=== PATIENT | female | born 1965 | race Caucasian/White ===

== ENCOUNTER → 2016-09-28 | Outpatient (CLI) | payer OTHER ==
[~2016-09-28] MED LIST: CGN1 PO; LPRUNK; QUET1TAB34 PO; RISP4TAB7 PO
[2016-09-28 11:21] LABS: BASO % 0.5 %; BASO ABS # 0.06 K/uL (0-0.2); COMPLETE YES; EOS % 2.3 %; HEMATOCRIT 37.7 % (37-47); IG% 0.5 %; LYMPH % 28.3 %; LYMPH ABS # 3.21 K/uL (1.2-3.4); MEAN CELL VOLUME 77.7 fL (80-100); MEAN CORPUSCULAR HEMOGLOBIN 26.8 pg (25-34); MEAN CORPUSCULAR HGB CONC 34.5 g/dl (32-36); MEAN PLATELET VOLUME 9.4 fL (7.4-10.4); MONO % 5.9 %; NEUT % 62.5 %; PLATELET COUNT 339 K/uL (130-400); RED BLOOD COUNT 4.85 M/uL (4.2-5.4); WHITE BLOOD COUNT 11.35 K/uL (4.8-10.8)
[2016-09-28 11:31] LABS: ALT/SGPT 58 U/L (12-78); AST/SGOT 36 U/L (15-37); BLOOD UREA NITROGEN 9 mg/dl (7-18); BUN/CREATININE RATIO 9.5 (10-20); CALCIUM 9.2 mg/dl (8.5-10.1); CARBON DIOXIDE 24 mmol/L (21-32); CHLORIDE 105 mmol/L (98-107); CHOLESTEROL 237 mg/dl (0-200); CREATININE 0.91 mg/dl (0.60-1.20); GLUCOSE 185 mg/dl (70-99); POTASSIUM 3.6 mmol/L (3.5-5.1); SODIUM 140 mmol/L (136-145)
[2016-09-28 11:33] LABS: MANUAL MICROSCOPIC REQUIRED? NO; REVIEW REQ? NO; URINE APPEARANCE CLEAR (CLEAR); URINE BILIRUBIN NEG (NEG); URINE COLOR YELLOW; URINE EPITHELIAL CELL AUTO >30 /lpf (0-5); URINE NITRITE NEG (NEG); URINE SPECIFIC GRAVITY 1.015 (1.000-1.030); UROBILINOGEN NEG (NEG); ZZUR CULT IF INDIC CLEAN CATCH YES
[2016-09-28 11:34] LABS: ALB/GLOB RATIO 1.1 (0.9-2); ALKALINE PHOSPHATASE 87 U/L (45-117); CHOLESTEROL/HDL RATIO 6.1; HDL CHOLESTEROL 39 mg/dl; TRIGLYCERIDES 560 mg/dl (0-150)
[2016-09-28 11:36] LABS: ESTIMATED AVERAGE GLUCOSE 217 mg/dl; HA1C FLAG Normal (Normal)
[2016-09-28 12:01] LABS: RATIO 9.6 mcg/mg (0-30.0)
== END | disposition home or self-care (01) ==
LOC: C.LAB1850 09:44
PROVIDERS: ATTEND Internal Medicine
DX: Z11.59 Encounter for screening for other viral diseases (principal); E11.9 Type 2 diabetes mellitus without complications; E55.9 Vitamin D deficiency, unspecified; D72.829 Elevated white blood cell count, unspecified; E78.5 Hyperlipidemia, unspecified

== ENCOUNTER → 2017-08-01 | Outpatient (CLI) | payer OTHER ==
--- NOTE | 2017-08-02 07:35 | MAMMOGRAPHY REPORT ---
BILATERAL DIGITAL SCREENING MAMMOGRAM TOMOSYNTHESIS WITH CAD: 08/01/2017 CLINICAL HISTORY: Routine screening. Patient has no complaints. TECHNIQUE: Breast tomosynthesis in addition to standard 2D mammography was performed. Current study was also evaluated with a Computer Aided Detection (CAD) system. COMPARISON: Comparison is made to exams dated: 06/08/2016 mammogram, 04/21/2015 mammogram, 01/10/2014 mammogram, 01/04/2013 mammogram, 09/01/2011 mammogram, and 07/29/2010 mammogram - [facility] enter. BREAST COMPOSITION: There are scattered areas of fibroglandular density in both breasts. FINDINGS: Postsurgical changes from prior reduction mammoplasty. A few benign-appearing calcificatio ns in the breasts. No suspicious mass, architectural distortion or cluster of suspicious microcalcif ications is seen. IMPRESSION: ACR BI-RADS CATEGORY 1: NEGATIVE There is no mammographic evidence of malignancy. A 1 year screening mammogram is recommended. The pa tient will receive written notification of the results. Approximately 10% of breast cancers are not detected with mammography. A negative mammographic report should not delay biopsy if a clinically suggestive mass is present. Ronda Crowder M.D. ay/:08/01/2017 16:41:47 [employer]: Ofe WOLF)([place]), [facility] letter sent: Normal 1/2 BI-RADS Code: ACR BI-RADS Category 1: Negative
== END | disposition home or self-care (01) ==
LOC: C.MAMM 13:32
PROVIDERS: ATTEND Internal Medicine
DX: Z12.31 Encounter for screening mammogram for malignant neoplasm of breast (principal)

== ENCOUNTER → 2017-10-31 | Outpatient (CLI) | payer OTHER ==
[2017-10-31 12:27] LABS: BASO % 0.8 %; BASO ABS # 0.08 K/uL (0-0.2); EOS % 2.3 %; EOS ABS # 0.24 K/uL (0-0.5); HEMOGLOBIN 14.4 g/dL (12.0-16.0); IG# 0.05 K/uL (0.00-0.02); LYMPH % 32.4 %; LYMPH ABS # 3.41 K/uL (1.2-3.4); MEAN CELL VOLUME 79.2 fL (80-100); MEAN CORPUSCULAR HEMOGLOBIN 27.8 pg (25-34); MEAN CORPUSCULAR HGB CONC 35.1 g/dl (32-36); MEAN PLATELET VOLUME 8.8 fL (7.4-10.4); MONO % 6.5 %; MONO ABS # 0.68 K/uL (0.11-0.59); NEUT % 57.5 %; NEUT ABS # 6.06 K/uL (1.4-6.5); PLATELET COUNT 393 K/uL (130-400); RED CELL DISTRIBUTION WIDTH CV 13.1 % (11.5-14.5); RED CELL DISTRIBUTION WIDTH SD 37.4 fL (36.4-46.3); WHITE BLOOD COUNT 10.52 K/uL (4.8-10.8)
[2017-10-31 13:00] LABS: HEMOGLOBIN A1C 11.1 % (4.5-5.6)
[2017-10-31 13:03] LABS: ALT/SGPT 62 U/L (12-78); AST/SGOT 43 U/L (15-37); BLOOD UREA NITROGEN 12 mg/dl (7-18); CALCIUM 9.3 mg/dl (8.5-10.1); CARBON DIOXIDE 25 mmol/L (21-32); CHOLESTEROL 238 mg/dl (0-200); CREATININE 0.83 mg/dl (0.60-1.20); GLUCOSE 217 mg/dl (70-99); POTASSIUM 3.4 mmol/L (3.5-5.1); SODIUM 134 mmol/L (136-145)
[2017-10-31 13:14] LABS: ALKALINE PHOSPHATASE 118 U/L (45-117); TOTAL PROTEIN 7.7 gm/dl (6.4-8.2)
== END | disposition home or self-care (01) ==
LOC: C.LAB1850 11:19
PROVIDERS: ATTEND Internal Medicine
DX: E11.9 Type 2 diabetes mellitus without complications (principal); D72.829 Elevated white blood cell count, unspecified; E55.9 Vitamin D deficiency, unspecified

== ENCOUNTER 2019-10-16 15:14 | Inpatient (IN) ==
[2019-10-16 16:02] LABS: Appearance Urine Cloudy (Clear); Bacteria Urine Automated 1+ (Negative); Bilirubin Urine Negative (Negative); Blood Urine Negative (Negative); Color Urine Dark Yellow; Epithelial Cell Urine Auto >30 /lpf (0-5); Glucose Urine UA 1+ (Negative); Ketones Urine Trace (Negative); Leukocyte Esterase Urine Negative (Negative); Nitrite Urine Negative (Negative); Protein Urine 1+ (Negative); Specific Gravity Urine 1.042 (1.000-1.030); Urobilinogen Urine Negative (Negative); WBC Urine Automated >30 /hpf (0-5)
[2019-10-16 16:06] LABS: Hematocrit (blood only) 37.6 % (37-47); Mean Corpuscular Hemoglobin 23.6 pg (25-34); Mean Corpuscular Hgb Conc 31.9 g/dL (32-36); Mean Corpuscular Volume 73.9 fL (80-100); Mean Platelet Volume 8.3 fL (7.4-10.4); Platelet Count 382 K/uL (130-400); RDW Coefficient of Variation 15.8 % (11.5-14.5); RDW Standard Deviation 42.9 fL (36.4-46.3); Red Blood Count 5.09 M/uL (4.2-5.4); White Blood Count 13.09 K/uL (4.8-10.8)
[2019-10-16 16:22] LABS: Calcium Oxalate Crystals Urine Present (None Prsent)
[2019-10-16 16:24] LABS: RBC Urine Automated 0-4 /hpf (0-4)
[2019-10-16 16:29] LABS: Amphetamines+Metham, Urine Neg (Neg); Barbiturates, Urine Neg (Neg); Benzodiazepine, Urine Neg (Neg); Cocaine, Urine Neg (Neg); MDMA (Ecstacy), Urine Neg (Neg); Methadone, Urine Neg (Neg); Opiate, Urine Neg (Neg); Phencyclidine, Urine Neg (Neg)
[2019-10-16 16:35] LABS: Albumin Level 3.2 gm/dl (3.4-5.0); BUN Creatinine Ratio 17.4 (10-20); Creatinine Clr Calc Pharmacy 82.2 ml/min; Est GFR (African American) 91.3; Est GFR (Non-African American) 78.8; Potassium 3.8 mmol/L (3.5-5.1)
[2019-10-16 16:37] LABS: Basophils # (auto) 0.05 K/uL (0-0.2); Basophils % (auto) 0.4 %; Eosinophils # (auto) 0.18 K/uL (0-0.5); Eosinophils % (auto) 1.4 %; Immature Granulocytes # (auto) 0.04 K/uL (0.00-0.02); Immature Granulocytes % (auto) 0.3 %; Lymphocytes # (auto) 4.07 K/uL (1.2-3.4); Lymphocytes % (auto) 31.1 %; Monocytes # (auto) 0.87 K/uL (0.11-0.59); Monocytes % (auto) 6.6 %; Neutrophils # (auto) 7.88 K/uL (1.4-6.5); Neutrophils % (auto) 60.2 %
[2019-10-16 16:38] LABS: Acetaminophen < 2 ug/ml (10-30); Salicylate < 1.7 mg/dl (2.8-20)
[2019-10-16 16:45] LABS: Albumin Globulin Ratio 0.8 (0.9-2); Bilirubin,Total 0.3 mg/dl (0.2-1); Thyroid Stimulating Hormone 0.793 uIu/ml (0.300-4.500); Total Protein 7.2 gm/dl (6.4-8.2)
[2019-10-16] MEDS ORDERED: cephALEXin 250 MG CAP PO ONE (16:57)
--- NOTE | 2019-10-16 17:16 | Emergency Department Note ---
Entered by Maycol Granda acting as a scribe for History of Present Illness General Chief complaint: Mental Health Evaluation Stated complaint: DEPRESSED, SUICIDAL Time Seen by Provider: 10/16/19 15:20 Source: patient History of Present Illness Onset (ago): week(s) (a few weeks ago) Location: head Pain Consistency: + other (worsening) Maximum Pain Intensity: 0 Quality: + other (suicidal ideations) Associated symptoms: + other (Positive for hearing voices. Negative for abdominal pain and leg swelling.) The patient is a 54 year old female w/ PMHx of DM, hypertension, schizoaffective disorder, depression, and 3 previous suicide attempts who p resents to the ED w/ CC of worsening suicidal ideations beginning a few weeks ago. The patient states that she has had worsening suicidal ideations for the last few weeks. She notes that she has been having difficulty sleeping and has also been eating sporadically. She reports that she is more depressed, and she states that is depressed about world issues and the baby she miscarried five years ago. The patient states that she hears voices that are not her own, and she notes that the voices tell her to commit suicide by taking pills. She notes that she has 3 previous suicide attempts by overdosing on pills. She reports that her last attempt was a year ago. She denies any abdominal pain and leg swelling. She reports that she has been taking her medication as usual, and she states that she does not use alcohol, drugs, or tobacco. Home Medications Home Medications Medication Instructions Recorded Confirmed Type hydroxyzine HCl 25 mg tablet 25 mg PO TID tab 03/15/19 10/16/19 History glipizide 10 mg tablet 10 mg PO BID #180 tab 04/16/19 10/16/19 Rx icosapent ethyl 1 gram capsule 1 gm PO BID #180 cap 04/16/19 10/16/19 Rx aspirin 81 mg tablet,delayed 81 mg PO DAILY #1 tab 04/21/19 10/16/19 History release atorvastatin 80 mg tablet 80 mg PO QPM #90 tab 04/21/19 10/16/19 History benztropine 1 mg tablet 1 mg PO HS tab 04/21/19 10/16/19 History olanzapine 20 mg tablet 25 mg PO HS tab 06/26/19 10/16/19 History venlafaxine 75 mg tablet,extended 75 mg PO DAILY 06/26/19 10/16/19 History release 24 hr metformin 500 mg tablet,extended 500 mg PO BID #60 tab 07/05/19 10/16/19 Rx release 24 hr hydrochlorothiazide 25 mg tablet 25 mg PO DAILY #30 tab 07/16/19 10/16/19 Rx cyanocobalamin (vitamin B-12) 1,000 mcg PO DAILY #30 tab 07/17/19 10/16/19 Rx 1,000 mcg tablet lisinopril 40 mg tablet 40 mg PO DAILY #30 tab 07/18/19 10/16/19 Rx Victoza 3-Antione 0.6 mg/0.1 mL (18 1.8 mg SQ DAILY #9 ml NS 07/31/19 10/16/19 Rx mg/3 mL) subcutaneous pen injector Lantus Solostar U-100 Insulin 100 100 units SQ BID #60 ml NS 09/06/19 10/16/19 Rx unit/mL (3 mL) subcutaneous pen methimazole 10 mg tablet 10 mg PO DAILY #30 tab 09/19/19 10/16/19 Rx acetaminophen 500 mg tablet 500 mg PO Q6H PRN #20 tab 10/15/19 10/16/19 Rx blood sugar diagnostic [OneTouch 10/16/19 10/16/19 History Ultra Blue Test Strip] pen needle,diabetic dual safty [BD 10/16/19 10/16/19 History AutoShield Duo Pen Needle] Allergies Allergy/AdvReac Type Severity Reaction Status Date / Time Cplaivf-Yob-Uda Reductase Allergy Mild Unknown Verified 10/16/19 19:13 Inhibitor sulfamethoxazole Allergy Mild Difficulty Verified 10/16/19 19:13 [From Bactrim] Breathing trimethoprim [From Bactrim] Allergy Mild Difficulty Verified 10/16/19 19:13 Breathing Past Med/Surg History Medical History (Updated 10/16/19 @ 19:02 by Maycol Granda) Albuminuria (Chronic) Depression (Chronic) Diabetes mellitus type 2, uncontrolled (Chronic) Eczema (Acute) Graves disease (Chronic) Hypertension (Chronic) Hyperthyroidism (Chronic) PPD positive (Chronic) Schizoaffective disorder, bipolar type (Chronic) Surgical History Hx of bilateral breast reduction surgery Hx of tonsillectomy Social History Preferred Language: [place] Communication Ability: Effective Visual Impairment: No Limitations 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: Normal Floorleader Required: No Beliefs That Will Affect Care: None marital status: Single Current Living Situation: Personal Care Facility Current Living Situation Comment: [facility] current occupational status: unemployed Feels Safe at Home: Yes Smoking Status: Former smoker Hx Alcohol Use: No Hx Substance Use: No Dental Care, Regularly: Yes Physical Activity Frequency: 1-2 Times per Week Seatbelt Use: always Review of Systems See HPI for pertinent positives & negatives. and A total of 10 systems reviewed and were otherwise negative Physical Exam Vital Signs Vital Signs - 24 hr 10/16/19 15:18 10/16/19 16:39 10/16/19 18:29 Temperature 36.9 C Temperature Source Oral Pulse Rate 93 H Pulse Rate [Finger] 82 76 Pulse Rhythm [Finger] Regular Pulse Strength [Finger] Normal Respiratory Rate 20 20 20 Respiratory Effort / Characteristics Non-Labored Non-Labored Spontaneous Non-Labored Spontaneous Respiratory Depth Normal Normal Normal Respiratory Pattern Regular Regular Blood Pressure 168/102 H Blood Pressure [Left Arm] 148/103 H 140/76 Blood Pressure Mean 124 Blood Pressure Mean [Left Arm] 118 97 Pulse Oximetry 96 96 97 Oxygen Delivery Method Room Air Room Air Room Air Sepsis Recent Fever Within 48 Hours No Sepsis New/Unexplained Change in Mental Status No Sepsis Action Taken by Nursing No Action Required 10/16/19 19:50 Temperature Temperature Source Pulse Rate 84 Pulse Rate [Finger] Pulse Rhythm [Finger] Pulse Strength [Finger] Respiratory Rate 16 Respiratory Effort / Characteristics Respiratory Depth Respiratory Pattern Blood Pressure 155/94 H Blood Pressure [Left Arm] Blood Pressure Mean Blood Pressure Mean [Left Arm] Pulse Oximetry 98 Oxygen Delivery Method Room Air Sepsis Recent Fever Within 48 Hours Sepsis New/Unexplained Change in Mental Status Sepsis Action Taken by Nursing GENERAL: Well nourished, NAD, non-toxic. EYE EXAM: Normal conjunctiva. PERRL, no anisocoria and EOM's grossly intact w/o pain. OROPHARYNX: Moist mucous membranes. Grossly normal dentition. NECK: Supple, no nuchal rigidity, no adenopathy, non-tender. No signs of meningismus. LUNGS: Clear to auscultation. Normal chest wall mechanics. HEART: NSR, no MRG. ABDOMEN: Abdomen soft, non-tender, normo-active bowel sounds, no masses, no rebound or guarding. BACK: No CVA TTP. SKIN: No rashes and no bruising. UPPER EXTREMITIES: Upper extremities are grossly normal. LOWER EXTREMITIES: No pitting edema. No calf pain. NEURO EXAM: A&O x3, cranial nerves II-XII grossly intact, normal speech, moves all 4 extremities on command w/o issue. PSYCH: Positive SI with plan, no HI, positive auditory hallucinations, no visual hallucinations. Course Course 1532: The patient was evaluated in room A6. A complete history and physical exam was performed. 1803: The patient was accepted to [address] [place] [address] and will be evaluated for further management. Administered Medications Discontinued Medications Cephalexin HCl (Keflex) 500 mg PO NOW ONE Stop: 10/16/19 16:58 Last Admin: 10/16/19 17:06 Dose: 500 mg Documented by: [id number] Medical Decision Making Differential Diagnosis Differential diagnoses considered include mood disorder, infection, hypoglycemia, electrolyte abnormalities, cardiac sources, intracerebral event, toxicologic, neurologic, as well as others. Medical Records Attestation: I reviewed the patient's medical records. Home Medications Current Medication List: was personally reviewed by me Laboratory Data Attestation: I reviewed the patient's lab results. Result diagrams: 10/16/19 15:56 10/16/19 15:56 Lab Results 10/16/19 10/16/19 10/16/19 Range/Units 15:32 15:32 15:56 WBC 13.09 H (4.8-10.8) K/uL RBC 5.09 (4.2-5.4) M/uL Hgb 12.0 (12.0-16.0) g/dL Hct 37.6 (37-47) % MCV 73.9 L (80-100) fL MCH 23.6 L (25-34) pg MCHC 31.9 L (32-36) g/dL RDW Std Deviation 42.9 (36.4-46.3) fL RDW Coeff of Abel 15.8 H (11.5-14.5) % Plt Count 382 (130-400) K/uL MPV 8.3 (7.4-10.4) fL Immature Gran % (Auto) 0.3 % Neut % (Auto) 60.2 % Lymph % (Auto) 31.1 % [place] % (Auto) 6.6 % Eos % (Auto) 1.4 % Baso % (Auto) 0.4 % Immature Gran # (Auto) 0.04 H (0.00-0.02) K/uL Neut # (Auto) 7.88 H (1.4-6.5) K/uL Lymph # (Auto) 4.07 H (1.2-3.4) K/uL [place] # (Auto) 0.87 H (0.11-0.59) K/uL Eos # (Auto) 0.18 (0-0.5) K/uL Baso # (Auto) 0.05 (0-0.2) K/uL Sodium (136-145) mmol/L Potassium (3.5-5.1) mmol/L Chloride (98-107) mmol/L Carbon Dioxide (21-32) mmol/L Anion Gap (3-11) BUN (7-18) mg/dl Creatinine (0.6-1.2) mg/dl Est Cr Clr Drug Dosing ml/min Est GFR ( Amer) Est GFR (Non-Af Amer) BUN/Creatinine Ratio (10-20) Glucose (70-99) mg/dl Calcium (8.5-10.1) mg/dl Total Bilirubin (0.2-1) mg/dl AST (15-37) U/L ALT (12-78) U/L Alkaline Phosphatase (45-117) U/L Total Protein (6.4-8.2) gm/dl Albumin (3.4-5.0) gm/dl Globulin (2.5-4.0) gm/dl Albumin/Globulin Ratio (0.9-2) TSH (0.300-4.500) uIu/ml Urine Color Dark Yellow Urine Appearance Cloudy A (Clear) Urine pH 5.0 (4.5-7.5) Ur Specific [place] 1.042 H (1.000-1.030) Urine Protein 1+ H (Negative) Urine Glucose (UA) 1+ H (Negative) Urine Ketones Trace H (Negative) Urine Blood Negative (Negative) Urine Nitrite Negative (Negative) Urine Bilirubin Negative (Negative) Urine Urobilinogen Negative (Negative) Ur Leukocyte Esterase Negative (Negative) Urine WBC (Auto) >30 H (0-5) /hpf Urine RBC (Auto) 0-4 (0-4) /hpf U Hyaline Cast (Auto) 5-10 H (0-5) /lpf U Epithel Cells (Auto) >30 H (0-5) /lpf Urine Bacteria (Auto) 1+ H (Negative) Urine Crystals Not Reportable Calcium Oxalate Crystal Present A (None Prsent) Salicylates (2.8-20) mg/dl Urine Opiates Screen Neg (Neg) Ur Methadone, Qual Neg (Neg) Acetaminophen (10-30) ug/ml Urine Barbiturates Neg (Neg) Ur Phencyclidine (PCP) Neg (Neg) U Amphetamin/Meth Scrn Neg (Neg) MDMA (Ecstasy) Screen Neg (Neg) U Benzodiazepines Scrn Neg (Neg) Ur Cocaine Metabolite Neg (Neg) U Marijuana (THC) Screen Neg (Neg) Ethyl Alcohol mg/dL (0-3) mg/dl 10/16/19 10/16/19 10/16/19 Range/Units 15:56 15:56 15:56 WBC (4.8-10.8) K/uL RBC (4.2-5.4) M/uL Hgb (12.0-16.0) g/dL Hct (37-47) % MCV (80-100) fL MCH (25-34) pg MCHC (32-36) g/dL RDW Std Deviation (36.4-46.3) fL RDW Coeff of Abel (11.5-14.5) % Plt Count (130-400) K/uL MPV (7.4-10.4) fL Immature Gran % (Auto) % Neut % (Auto) % Lymph % (Auto) % [place] % (Auto) % Eos % (Auto) % Baso % (Auto) % Immature Gran # (Auto) (0.00-0.02) K/uL Neut # (Auto) (1.4-6.5) K/uL Lymph # (Auto) (1.2-3.4) K/uL [place] # (Auto) (0.11-0.59) K/uL Eos # (Auto) (0-0.5) K/uL Baso # (Auto) (0-0.2) K/uL Sodium 136 (136-145) mmol/L Potassium 3.8 (3.5-5.1) mmol/L Chloride 104 (98-107) mmol/L Carbon Dioxide 25 (21-32) mmol/L Anion Gap 7.0 (3-11) BUN 15 (7-18) mg/dl Creatinine 0.84 (0.6-1.2) mg/dl Est Cr Clr Drug Dosing 82.2 ml/min Est GFR ( Amer) 91.3 Est GFR (Non-Af Amer) 78.8 BUN/Creatinine Ratio 17.4 (10-20) Glucose 264 H (70-99) mg/dl Calcium 9.0 (8.5-10.1) mg/dl Total Bilirubin 0.3 (0.2-1) mg/dl AST 11 L (15-37) U/L ALT 29 (12-78) U/L Alkaline Phosphatase 179 H (45-117) U/L Total Protein 7.2 (6.4-8.2) gm/dl Albumin 3.2 L (3.4-5.0) gm/dl Globulin 4.0 (2.5-4.0) gm/dl Albumin/Globulin Ratio 0.8 L (0.9-2) TSH 0.793 (0.300-4.500) uIu/ml Urine Color Urine Appearance (Clear) Urine pH (4.5-7.5) Ur Specific [place] (1.000-1.030) Urine Protein (Negative) Urine Glucose (UA) (Negative) Urine Ketones (Negative) Urine Blood (Negative) Urine Nitrite (Negative) Urine Bilirubin (Negative) Urine Urobilinogen (Negative) Ur Leukocyte Esterase (Negative) Urine WBC (Auto) (0-5) /hpf Urine RBC (Auto) (0-4) /hpf U Hyaline Cast (Auto) (0-5) /lpf U Epithel Cells (Auto) (0-5) /lpf Urine Bacteria (Auto) (Negative) Urine Crystals Calcium Oxalate Crystal (None Prsent) Salicylates < 1.7 L (2.8-20) mg/dl Urine Opiates Screen (Neg) Ur Methadone, Qual (Neg) Acetaminophen < 2 L (10-30) ug/ml Urine Barbiturates (Neg) Ur Phencyclidine (PCP) (Neg) U Amphetamin/Meth Scrn (Neg) MDMA (Ecstasy) Screen (Neg) U Benzodiazepines Scrn (Neg) Ur Cocaine Metabolite (Neg) U Marijuana (THC) Screen (Neg) Ethyl Alcohol mg/dL < 3.0 (0-3) mg/dl Blood Pressure Blood Pressure Findings: Elevated blood pressure Blood Pressure Disposition: elevated BP felt to be situational MDM Narrative The patient is a 54 year old female w/ PMHx DM, hypertension, schizoaffective disorder, depression, and 3 previous suicide attempts who presents to the ED w/ CC of worsening suicidal ideations beginning a few weeks ago. Patient was seen and evaluated the bedside. The patient did present with concern for suicide alleviation and plan. The patient does have a history of prior attempts. The patient has been increasingly depressed. Patient states that she has had erratic sleep and poor nutrition. Patient did a bladder completed. Patient was the medically cleared. Patient was seen and evaluated by psych behavioral health case manager patient was subsequently made to S for further [facility] inpatient psychiatric treatment. Impression & Plan Depression, Suicidal ideations, UTI (urinary tract infection) Discharge Plan Visit Data *Final* Discharge Date/Time: 10/16/19 19:50 Chief Complaint: Mental Health Evaluation Stated Complaint: DEPRESSED, SUICIDAL ED Provider: James Blanc Discharge Problem: Depression, Suicidal ideations, UTI (urinary tract infection) Patient Disposition: Admitted As Inpatient Discharge Instructions Interventions: ED Discharge Assessment Last Done: 10/16/19 19:50 Discharge Problem: Depression Qualifiers: Depression Type: unspecified Qualified Code(s): F32.9 - Major depressive disorder, single episode, unspecified UTI (urinary tract infection) Qualifiers: Urinary tract infection type: site unspecified Hematuria presence: without hematuria Qualified Code(s): N39.0 - Urinary tract infection, site not specified The scribe's documentation has been prepared under my direction and personally reviewed by me in its entirety. I confirm that the note above accurately reflects all work, treatment, procedures, and medical decision making performed by me.
[2019-10-16] MEDS ORDERED: SODIUM CHLORIDE 0.65% NA SOLN 45 ML (OCEAN) PRN (20:02)
[2019-10-16] MEDS ORDERED: MAGNESIUM HYDROXIDE SUSP 30 ML UDC PO PRN (20:02)
[2019-10-16] MEDS ORDERED: BISMUTH SUBSALICYLATE PER ML OMNICELL CHARGE PO PRN (20:02)
[2019-10-16] MEDS ORDERED: ACETAMINOPHEN 325 MG TAB PO PRN (20:02)
[2019-10-16] MEDS ORDERED: ALUMINUM/MAGNESIUM SUSP 30 ML UDC PO PRN (20:02)
[2019-10-16] MEDS ORDERED: hydroCHLOROthiazide 25 MG TAB PO STA (20:19)
[2019-10-16] MEDS ORDERED: BENZTROPINE MESYLATE 1 MG TAB PO ONE (20:30)
[2019-10-16] MEDS ORDERED: METFORMIN HCL ER 500 MG TABCR PO SCH (21:00)
[2019-10-16] MEDS ORDERED: PHARMACY GLYCEMIC MGMT CONSULT PRN (21:34)
[2019-10-16] MEDS ORDERED: GLUCOSE 10 TABS/TUBE PO PRN (21:45)
[2019-10-16] MEDS ORDERED: GLUCAGON FOR INJ 1 MG VIAL SQ PRN (21:45)
[2019-10-16] MEDS ORDERED: CARBOHYDRATES FOR HYPOGLYCEMIA PO PRN (21:45)
[2019-10-16] MEDS ORDERED: GLUCOSE 40% GEL 15 GM TUBE PO PRN (21:45)
[2019-10-16] MEDS ORDERED: DEXTROSE 50% 50 ML SYRINGE IV PRN (21:45)
[2019-10-16] MEDS: INSULIN ASPART 100 UNITS/ML 3 ML PEN SC SCH (21:59)
[2019-10-16] MEDS: INSULIN GLARGINE SOLOSTAR 100 UNITS/ML 3 ML PEN SC SCH (22:01)
[2019-10-16] MEDS: BENZTROPINE MESYLATE 1 MG TAB PO SCH (22:12)
[2019-10-16] MEDS: AMOXICILLIN 500 MG CAP PO SCH (22:12)
[2019-10-16] MEDS: OLANZapine 5 MG TABLET PO SCH (22:18)
[2019-10-17] MEDS: INSULIN ASPART 100 UNITS/ML 3 ML PEN SC SCH ×7 (00:10→20:30)
[2019-10-17 08:40] LABS: Estimated Average Glucose 240 mg/dl
[2019-10-17] MEDS ORDERED: glipiZIDE 5 MG TAB PO SCH (09:00)
--- NOTE | 2019-10-17 09:14 | Pharmacy Report ---
Glycemic Control Consultation - Date of Service October 17, 2019 - Scope Scope: Glycemic Pharmacist consulted for glycemic control and to write orders per [facility] inpatient glycemic control protocol - Objective Weight: 83.7 kg [place] BSG (last 24hrs): 10/16/19 10/16/19 10/16/19 15:56 20:57 20:59 Glucose 264 H POC Glucose 323 H* 321 H* 10/16/19 10/17/19 10/17/19 23:57 03:59 07:48 Glucose POC Glucose 266 H 264 H 239 H Laboratory Data (last 24hrs): 10/16/19 15:56 Potassium 3.8 Carbon Dioxide 25 Anion Gap 7.0 Creatinine 0.84 Est Cr Clr Drug Dosing 82.2 HbA1c: Hemoglobin A1c 10.0 % (4.5-5.6) H 10/16/19 15:56 - Recent Pertinent Medications Outpatient Anti-diabetic Regimen: * Glargine 100 units SQ BID * Victoza * Metformin * Glipizide - Assessment & Plan Assessment & Plan: ASSESSMENT: * 54yo T2DM female with A1c above goal. Pt follows with [facility] Endocrinology. Outpatient control is limited by co-morbid conditions (hyperthyroidism and psychiatric issues). Pt recently re-started metformin but unable to titrate to max dosing d/t GI side effects. Unsure if patient is taking Lantus vs Toujeo. Had Rx for Toujeo for the past year (09/2018 - 09/2019) but then new Rx for Lantus in 09/2019. * Pt is maintained on multiple oral agents, basal insulin, + GLP-1. Unsure of compliance with regimen. Will hold non-insulin agents for admission and add Novolog bolus insulin per CF/CR in it's place. * Outpatient dosing of insulin is 200 units/day --> will convert this to 50%:50% distribution of basal:prandial and titrate based on BSG trends. * Goal is to maintain BSGs in 120-160 mg/dl range ; patient prefers BSGs a little higher and pt may feel hypo at otherwise normal BSGs based on elevated A1c PLAN FOR INPATIENT GLYCEMIC CONTROL: * Holding outpatient oral diabetes medications & GLP-1 * Basal insulin * Lantus 100 units SQ BID {outpatient dosing} --> change to 50%:50% dosing and use dosing scale until true basal dose determined * Lantus SQ BID based on BSG * BSG below 140mg/dl --> 65 units * BSG 140-180mg/dl --> 75 units * BSG above 180 mg/dl --> 85 units * Bolus insulin * NovoLog per scale ACHS or Q6hrs while NPO * Goal Range: Low 120 mg/dL - High 160 mg/dL * Correction Factor: 10 mg/dL/unit * Nutritional / Prandial insulin per carb ratio of 1 unit per 4 grams CHO consumed * Patient did receive her outpatient dosing of Lantus 100 units last evening and this morning. Will tighten these parameters further once new/reduced Lantus doses given. * Please note that the plan above was derived based on current level of insulin resistance and hospital stress. These recommendations are appropriate for inpatient admission only. Plan of care upon discharge will need to be reassessed to avoid potential outpatient hypo/hyperglycemia. Thank you.
[2019-10-17] MEDS: methIMAzole 5 MG TABLET PO SCH ×2 (09:56→11:38)
[2019-10-17] MEDS: VENLAFAXINE HCL XR 75 MG CAPXR PO SCH (09:57)
[2019-10-17] MEDS: ATORVASTATIN 40 MG TAB PO SCH ×2 (09:58→11:38)
[2019-10-17] MEDS: CYANOCOBALAMIN 500 MCG TABLET (VITAMIN B-12) PO SCH (09:59)
[2019-10-17] MEDS: AMOXICILLIN 500 MG CAP PO SCH ×3 (10:25→20:42)
[2019-10-17] MEDS: INSULIN GLARGINE SOLOSTAR 100 UNITS/ML 3 ML PEN SC SCH (10:26)
--- NOTE | 2019-10-17 10:40 | History & Physical ---
Date of Service October 17, 2019 Impression / Recommendations (1) Schizoaffective disorder, depressive type: 10/17 - Continue voluntary inpatient treatment. Continue olanzapine, benztropine, and venlafaxine XR at home doses, as patient has been nonadherent and skipping dose, so has not likely been receiving full effect of her medications. She reports good tolerance of these medications, and this regimen has worked for her in the past. -Fasting labs for monitoring on an atypical antipsychotic: Hemoglobin A1c on admission was 10.0, with an estimated average glucose of 240. FLP results reviewed from 07/09/2019; triglycerides elevated at 319, remainder of values within normal limits. -Coordinate care with the patient's BCM, Mercedes Bullock, and contact [facility] to coordinate with Dr. Guillen and ensure she is assigned to a new therapist. -Encourage group attendance and participation. -Suicide checks for safety. Work on healthy coping skills and discharge safety plan. Reality testing as tolerated. -Support options for limiting her access to large amounts of pills, especially when more depressed and having suicidal thoughts, given her history of multiple suicide attempts by overdose. (2) Diabetes mellitus type 2, uncontrolled: Continue home dose of metformin, insulin, diabetic diet, and consult glycemic control pharmacist. (3) Dyslipidemia: Continue home dose of Lipitor (4) Hypertension: Continue home dose of lisinopril Risk Factors Assessment Male: No : Yes Do You Have Access To A Gun?: No Health Problems: Yes Mental Health Diagnoses: Yes Substance Use Disorders: No Previous Attempt: Yes Previous Attempt; Highly Lethal: Yes Family History of Suicide: No Previous Psychiatric Hospitalization: Yes Hopelessness: Yes Smoker: No Protective Factors Assessment : No Responsible for Young Children: No Employed: No Supportive Family: Yes Good Rapport with Provider: Yes Psychiatric History Identifying Data AMADO OLSON is a 54-year-old F who currently lives in [place] at the [facility] personal fdc, has a history of schizoaffective disorder, and was admitted on 10/16/19 19:59 on a 201 voluntary commitment for depression, psychosis, and suicidal ideation with plan to overdose on pills. Chief Complaint "Oh you know I was feeling so depressed, was having suicidal thoughts..." History of Present Illness Patient presented to the ER yesterday, 10/16/2019, with her the health information administrator of the [facility], a personal fdc where she resides, reporting worsening mood, command auditory hallucinations to kill herself, and thoughts to overdose on medication. She reported chronic paranoia and thoughts that somebody is out to kill her and her daughter, auditory hallucination of voices that make vulgar comments and were telling her to commit suicide by overdose. She reported history of multiple suicide attempts by overdose, and had previously received treatment at [facility], but since they are closing had not been transferred to a new clinician. She endorsed worthlessness, hopelessness, increased isolation, paranoia, decreased appetite, poor sleep, and difficulty getting out of bed and doing her ADLs. Admission labs were notable for WBC 13.09, glucose 264, hemoglobin A1c of 10, alkaline phosphatase of 179, albumin of 3.2, normal TSH, UA was cloudy with elevated specific gravity, 1+ protein and glucose, trace ketones, > 30 epithelial cells, and 1+ bacteria; drug screen was negative. She agreed to voluntary inpatient treatment, and on admission was continued on her home psychotropics including olanzapine 25 mg at bedtime, venlafaxine XR 75 mg daily, and benztropine 1 mg at bedtime. On my assessment, she reports she had been living in [place] for years, but moved to [place] and was living there for about 9 years at [facility], before returning to [place] in 12/2018. Mood worsened in the fall, and she was hospitalized at [facility] in 05/2019. She denies triggers, but states mood and paranoia worsened, she thought people hated her, wanted to harm her, "were going to burn my guts, burn my body," and AH of voices have been worsening, telling her to hurt herself. She reports trigger was a 5 or 10 years ago, "I can't remember," when she lived in [place]. She thinks she was 2 months along when she had the miscarriage, and says she "gets very depressed about it, and I worry about her, I feel like in these places, she's being exposed to inappropriate conditions, being burnt with propane, being burnt with fire." She says her daughter is ", she's gone, but her spirit is with me, I hear her praying a lot." She thinks her miscarried baby is also "exposed to medication" and that it is bad for her, so skips her medications at times, "I worry about my baby, worry that it will affect it." Estimates she's misses "a couple of doses" of olanzapine and venlafaxine, but can't be more specific, stating she "skips them when they feel too strong for me and the baby." States she is post- menopausal for years. Denies any recent medication changes. She denies any history of james, and denies symptoms of PTSD, OCD, and eating disorder. She states her goals of treatment are to work on coping skills and process grief from her miscarriage. She believes her current medication regimen works well for her, and is agreeable to working on improving compliance. Past Psychiatric History Previous Psych History: Psychiatric problems reportedly started in her 20s after moving to the . She has had various diagnoses in the past including Current Psychiatric Diagnosis: Schizoeffective, Depression Outpatient Services: Was being seen at [facility] (Dr. Guillen and thearpist), but after they closed, was placed on a wait list at [facility] for therapy and psychiatry, and has not seen anyone or gotten appointments yet, despite calling them multiple times. PABLO Bullock Previous Psych Admissions: Multiple previous hospitalizations at [facility] (at least 20 since 1997, last in 08/2010), [facility] (last there in 05/2019 for SI with a plan to overdose), [place], and [facility] in [place]. 10 to 15 years ago, she was at [facility] for about 3 years. Do You Have Access To A Gun?: No History of Previous Suicide Attempt: Yes Describe Attempts in the Past: Patient reports 3 previous suicide attempts by overdose, last 1 yr ago Past Medication Trials: Multiple hospitalizations here in the past for Ativan overdoses. Haloperidol Stelazine Prolixin Risperidone Bupropion Cytomel Provigil Allergies Allergy/AdvReac Type Severity Reaction Status Date / Time [id number] Reductase Allergy Mild Unknown Verified 10/16/19 19:13 Inhibitor sulfamethoxazole Allergy Mild Difficulty Verified 10/16/19 19:13 [From Bactrim] Breathing trimethoprim [From Bactrim] Allergy Mild Difficulty Verified 10/16/19 19:13 Breathing Home Medications Home Medications Medication Instructions Recorded Confirmed Type hydroxyzine HCl 25 mg tablet 25 mg PO TID tab 03/15/19 10/16/19 History glipizide 10 mg tablet 10 mg PO BID #180 tab 04/16/19 10/16/19 Rx icosapent ethyl 1 gram capsule 1 gm PO BID #180 cap 04/16/19 10/16/19 Rx aspirin 81 mg tablet,delayed 81 mg PO DAILY #1 tab 04/21/19 10/16/19 History release atorvastatin 80 mg tablet 80 mg PO QPM #90 tab 04/21/19 10/16/19 History benztropine 1 mg tablet 1 mg PO HS tab 04/21/19 10/16/19 History olanzapine 20 mg tablet 25 mg PO HS tab 06/26/19 10/16/19 History venlafaxine 75 mg tablet,extended 75 mg PO DAILY 06/26/19 10/16/19 History release 24 hr metformin 500 mg tablet,extended 500 mg PO BID #60 tab 07/05/19 10/16/19 Rx release 24 hr hydrochlorothiazide 25 mg tablet 25 mg PO DAILY #30 tab 07/16/19 10/16/19 Rx cyanocobalamin (vitamin B-12) 1,000 mcg PO DAILY #30 tab 07/17/19 10/16/19 Rx 1,000 mcg tablet lisinopril 40 mg tablet 40 mg PO DAILY #30 tab 07/18/19 10/16/19 Rx Victoza 3-Antione 0.6 mg/0.1 mL (18 1.8 mg SQ DAILY #9 ml NS 07/31/19 10/16/19 Rx mg/3 mL) subcutaneous pen injector Jo Hurley U-100 Insulin 100 100 units SQ BID #60 ml NS 09/06/19 10/16/19 Rx unit/mL (3 mL) subcutaneous pen methimazole 10 mg tablet 10 mg PO DAILY #30 tab 09/19/19 10/16/19 Rx acetaminophen 500 mg tablet 500 mg PO Q6H PRN #20 tab 10/15/19 10/16/19 Rx blood sugar diagnostic [OneTouch 10/16/19 10/16/19 History Ultra Blue Test Strip] pen needle,diabetic dual safty [BD 10/16/19 10/16/19 History AutoShield Duo Pen Needle] Family History Family History of: None Family Mental Health History Comment: Patient denies on assessment today, but per past records, she reported a history of paternal aunts and uncles with depression, and multiple people with depression on maternal side. Maternal grandfather had alcoholism. Alcohol History Hx of Alcohol Use Over the Past 12 Months: No AUDIT Total Score: 0 Smoking Use Have You Smoked or Used Tobacco Products in the Last 30 Days: No Smoking Status: Former smoker Substance History Hx of Prescription Med Misuse Over the Past 12 Months: No Hx of Over the Counter Med Misuse Over the Past 12 Months: No Hx of Inhalent Misuse Over the Past 12 Months: No Hx of Organic Substance Use Over the Past 12 Months: No Hx of Illegal Substances/Street Drug Use Over Past 12 Months: No Problems as a Result of Past Substance Use: None Identified Reports hx of alcohol and cocaine abuse years ago while in college. Personal History Living Arrangements: Personal Care Facility Living Arrangements Comments: House of Care in [place] Childhood: Born in [facility], but grew up in [place], raised by both parents, who when she was in her 20s. Moved to the in her early 20s to live with her mother who was teaching at [employer]. Father remarried and lives in [facility], younger brother lives in [place] [facility] [place], and her mother and daughter live in [place]. Her daughter is 22 and is attending [employer]. Highest Grade Completed: Some College Highest Grade Completed Comment: Completed two years of college Employment Status: Disabled Marital Status: Single Number Of Children: 1 daughter, who was adopted by the patient's mother when she was a baby. Beliefs That Will Affect Care: None Current Legal Problems: No Psychological Trauma History Comment: Denies history of abuse. Reports a boyfriend of a brain tumor, and her next boyfriend of an FL. Reports miscarriage 5-10 years ago, unclear if delusional thought Patient History Medical History (Updated 10/17/19 @ 11:18 by Mitra Barry MD) Albuminuria (Chronic) Diabetes mellitus type 2, uncontrolled (Chronic) Eczema (Acute) Graves disease (Chronic) Hypertension (Chronic) Hyperthyroidism (Chronic) PPD positive (Chronic) Schizoaffective disorder, depressive type Surgical History Hx of bilateral breast reduction surgery Hx of tonsillectomy Social History Preferred Language: Chinese Communication Ability: Effective Visual Impairment: No Limitations 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: Normal Director It Project Required: No Beliefs That Will Affect Care: None marital status: Single Current Living Situation: Personal Care Facility Current Living Situation Comment: [facility] current occupational status: unemployed Feels Safe at Home: Yes Smoking Status: Former smoker Hx Alcohol Use: No Hx Substance Use: No Dental Care, Regularly: Yes Physical Activity Frequency: 1-2 Times per Week Seatbelt Use: always Review of Systems Review of Systems: All systems reviewed & are unremarkable except as noted in HPI & below Physical Exam Psychiatric: Orientation: alert, oriented x 3 and cooperative Apperance: appropriately groomed and appeared stated age Obese WF dressed in penguin pajamas, chin length le hair, which appears clean and brushed. Seated in NAD. Eye Contact: good eye contact Motor Behavior: steady gait and station and + psychomotor agitation (restless, pacing, bouncing leg up and down) Speech: normal rate/rhythm/volume of speech slight accent Affect: + depressed affect, + constricted affect and mood congruent with affect Mood: + depressed mood Thought Process: goal directed thought process Thought Content: + preoccupation, + paranoid, + delusions, + hopelessness, + worthlessness and + guilt Suicidal Thoughts: + reports suicidal thoughts Homicidal Thoughts: denies homicidal thoughts Hallucinations: + auditory hallucinations Cognition: recent memory grossly intact, attention grossly intact and language grossly intact Estimated Intelligence: consistent with education level Insight: + fair insight Judgement: + fair judgement Vital Signs (Past 24 Hours): Last Vital Signs Temp 36.6 C 10/17/19 06:32 Pulse 82 10/17/19 06:33 Resp 18 10/17/19 06:32 BP 130/84 10/17/19 06:33 Pulse Ox 98 10/16/19 19:50 Exam Statement: A physical exam was performed in the ER prior to admission to the unit by Dr. James Blanc. I accept that physical as correct/medical clearance for the inpatient physical exam. Results & Data ([facility]) Laboratory Results Laboratory Results - last 24 hr 10/16/19 10/16/19 10/16/19 15:32 15:32 15:56 WBC 13.09 H RBC 5.09 Hgb 12.0 Hct 37.6 MCV 73.9 L MCH 23.6 L MCHC 31.9 L RDW Std Deviation 42.9 RDW Coeff of Abel 15.8 H Plt Count 382 MPV 8.3 Immature Gran % (Auto) 0.3 Neut % (Auto) 60.2 Lymph % (Auto) 31.1 Lassen % (Auto) 6.6 Eos % (Auto) 1.4 Baso % (Auto) 0.4 Immature Gran # (Auto) 0.04 H Neut # (Auto) 7.88 H Lymph # (Auto) 4.07 H Lassen # (Auto) 0.87 H Eos # (Auto) 0.18 Baso # (Auto) 0.05 Sodium Potassium Chloride Carbon Dioxide Anion Gap BUN Creatinine Est Cr Clr Drug Dosing Est GFR ( Amer) Est GFR (Non-Af Amer) BUN/Creatinine Ratio Glucose POC Glucose Estimat Average Glucose Hemoglobin A1c Calcium Total Bilirubin AST ALT Alkaline Phosphatase Total Protein Albumin Globulin Albumin/Globulin Ratio TSH Urine Color Dark Yellow Urine Appearance Cloudy A Urine pH 5.0 Ur Specific Rose Bud 1.042 H Urine Protein 1+ H Urine Glucose (UA) 1+ H Urine Ketones Trace H Urine Blood Negative Urine Nitrite Negative Urine Bilirubin Negative Urine Urobilinogen Negative Ur Leukocyte Esterase Negative Urine WBC (Auto) >30 H Urine RBC (Auto) 0-4 U Hyaline Cast (Auto) 5-10 H U Epithel Cells (Auto) >30 H Urine Bacteria (Auto) 1+ H Urine Crystals Not Reportable Calcium Oxalate Crystal Present A Salicylates Urine Opiates Screen Neg Ur Methadone, Qual Neg Acetaminophen Urine Barbiturates Neg Ur Phencyclidine (PCP) Neg U Amphetamin/Meth Scrn Neg MDMA (Ecstasy) Screen Neg U Benzodiazepines Scrn Neg Ur Cocaine Metabolite Neg U Marijuana (THC) Screen Neg Ethyl Alcohol mg/dL 10/16/19 10/16/19 10/16/19 15:56 15:56 15:56 WBC RBC Hgb Hct MCV MCH MCHC RDW Std Deviation RDW Coeff of Abel Plt Count MPV Immature Gran % (Auto) Neut % (Auto) Lymph % (Auto) Lassen % (Auto) Eos % (Auto) Baso % (Auto) Immature Gran # (Auto) Neut # (Auto) Lymph # (Auto) Lassen # (Auto) Eos # (Auto) Baso # (Auto) Sodium 136 Potassium 3.8 Chloride 104 Carbon Dioxide 25 Anion Gap 7.0 BUN 15 Creatinine 0.84 Est Cr Clr Drug Dosing 82.2 Est GFR ( Amer) 91.3 Est GFR (Non-Af Amer) 78.8 BUN/Creatinine Ratio 17.4 Glucose 264 H POC Glucose Estimat Average Glucose Hemoglobin A1c Calcium 9.0 Total Bilirubin 0.3 AST 11 L ALT 29 Alkaline Phosphatase 179 H Total Protein 7.2 Albumin 3.2 L Globulin 4.0 Albumin/Globulin Ratio 0.8 L TSH 0.793 Urine Color Urine Appearance Urine pH Ur Specific Rose Bud Urine Protein Urine Glucose (UA) Urine Ketones Urine Blood Urine Nitrite Urine Bilirubin Urine Urobilinogen Ur Leukocyte Esterase Urine WBC (Auto) Urine RBC (Auto) U Hyaline Cast (Auto) U Epithel Cells (Auto) Urine Bacteria (Auto) Urine Crystals Calcium Oxalate Crystal Salicylates < 1.7 L Urine Opiates Screen Ur Methadone, Qual Acetaminophen < 2 L Urine Barbiturates Ur Phencyclidine (PCP) U Amphetamin/Meth Scrn MDMA (Ecstasy) Screen U Benzodiazepines Scrn Ur Cocaine Metabolite U Marijuana (THC) Screen Ethyl Alcohol mg/dL < 3.0 10/16/19 10/16/19 10/16/19 15:56 20:57 20:59 WBC RBC Hgb Hct MCV MCH MCHC RDW Std Deviation RDW Coeff of Abel Plt Count MPV Immature Gran % (Auto) Neut % (Auto) Lymph % (Auto) Lassen % (Auto) Eos % (Auto) Baso % (Auto) Immature Gran # (Auto) Neut # (Auto) Lymph # (Auto) Lassen # (Auto) Eos # (Auto) Baso # (Auto) Sodium Potassium Chloride Carbon Dioxide Anion Gap BUN Creatinine Est Cr Clr Drug Dosing Est GFR ( Amer) Est GFR (Non-Af Amer) BUN/Creatinine Ratio Glucose POC Glucose 323 H* 321 H* Estimat Average Glucose 240 Hemoglobin A1c 10.0 H Calcium Total Bilirubin AST ALT Alkaline Phosphatase Total Protein Albumin Globulin Albumin/Globulin Ratio TSH Urine Color Urine Appearance Urine pH Ur Specific [place] Urine Protein Urine Glucose (UA) Urine Ketones Urine Blood Urine Nitrite Urine Bilirubin Urine Urobilinogen Ur Leukocyte Esterase Urine WBC (Auto) Urine RBC (Auto) U Hyaline Cast (Auto) U Epithel Cells (Auto) Urine Bacteria (Auto) Urine Crystals Calcium Oxalate Crystal Salicylates Urine Opiates Screen Ur Methadone, Qual Acetaminophen Urine Barbiturates Ur Phencyclidine (PCP) U Amphetamin/Meth Scrn MDMA (Ecstasy) Screen U Benzodiazepines Scrn Ur Cocaine Metabolite U Marijuana (THC) Screen Ethyl Alcohol mg/dL 10/16/19 10/17/19 10/17/19 23:57 03:59 07:48 WBC RBC Hgb Hct MCV MCH MCHC RDW Std Deviation RDW Coeff of Abel Plt Count MPV Immature Gran % (Auto) Neut % (Auto) Lymph % (Auto) Lassen % (Auto) Eos % (Auto) Baso % (Auto) Immature Gran # (Auto) Neut # (Auto) Lymph # (Auto) Lassen # (Auto) Eos # (Auto) Baso # (Auto) Sodium Potassium Chloride Carbon Dioxide Anion Gap BUN Creatinine Est Cr Clr Drug Dosing Est GFR ( Amer) Est GFR (Non-Af Amer) BUN/Creatinine Ratio Glucose POC Glucose 266 H 264 H 239 H Estimat Average Glucose Hemoglobin A1c Calcium Total Bilirubin AST ALT Alkaline Phosphatase Total Protein Albumin Globulin Albumin/Globulin Ratio TSH Urine Color Urine Appearance Urine pH Ur Specific [place] Urine Protein Urine Glucose (UA) Urine Ketones Urine Blood Urine Nitrite Urine Bilirubin Urine Urobilinogen Ur Leukocyte Esterase Urine WBC (Auto) Urine RBC (Auto) U Hyaline Cast (Auto) U Epithel Cells (Auto) Urine Bacteria (Auto) Urine Crystals Calcium Oxalate Crystal Salicylates Urine Opiates Screen Ur Methadone, Qual Acetaminophen Urine Barbiturates Ur Phencyclidine (PCP) U Amphetamin/Meth Scrn MDMA (Ecstasy) Screen U Benzodiazepines Scrn Ur Cocaine Metabolite U Marijuana (THC) Screen Ethyl Alcohol mg/dL Current Inpatient Medications Current Inpatient Medications: Current Inpatient Medications Acetaminophen (Tylenol) 650 mg PO Q4H PRN PRN Reason: Headache or Minor Fever Stop: 11/15/19 20:01 Al Hydrox/Mg Hydrox/Simethicone (Maalox) 30 ml PO Q4H PRN PRN Reason: GI Upset Stop: 11/15/19 20:01 Amoxicillin (Amoxil) 500 mg PO TID [facility] Stop: 10/26/19 20:59 Last Admin: 10/16/19 22:12 Dose: 500 mg Documented by: Aspirin (Ecotrin Ectab) 81 mg PO QAM [facility] Stop: 11/16/19 08:59 Atorvastatin Calcium (Lipitor) 80 mg PO QAM [facility] Stop: 11/16/19 08:59 Last Admin: 10/17/19 09:58 Dose: 80 mg Documented by: Benztropine Mesylate (Cogentin) 1 mg PO HS [facility] Stop: 11/15/19 21:59 Last Admin: 10/16/19 22:12 Dose: 1 mg Documented by: Bismuth Subsalicylate (Kaopectate) 15 ml PO PRN PRN PRN Reason: Loose Stool Stop: 11/15/19 20:01 Cyanocobalamin (Vitamin B-12) 1,000 mcg PO QAM [facility] Stop: 11/16/19 08:59 Last Admin: 10/17/19 09:59 Dose: 1,000 mcg Documented by: Dextrose (Dextrose 50%) 25 - 50 ml IV UD PRN; Protocol PRN Reason: Hypoglycemia Protocol Stop: 11/15/19 21:44 Glipizide (Glucotrol) 10 mg PO BIDM [facility] Stop: 11/16/19 08:59 Glucagon (Glucagen) 1 mg SQ UD PRN; Protocol PRN Reason: Hypoglycemia Protocol Stop: 11/15/19 21:44 Glucose (Glucose 40%) 15 - 30 gm PO UD PRN; Protocol PRN Reason: Hypoglycemia Protocol Stop: 11/15/19 21:44 Glucose (Dex4 Glucose) 4 - 8 tabs PO UD PRN; Protocol PRN Reason: Hypoglycemia Protocol Stop: 11/15/19 21:44 Hydrochlorothiazide (Hctz) 25 mg PO QAM [facility] Stop: 11/16/19 08:59 Hydroxyzine HCl (Vistaril) 50 mg PO HS PRN PRN Reason: Insomnia Stop: 11/15/19 20:20 Insulin Aspart (Novolog Flexpen) 0 units SC ACHS [facility] Stop: 11/15/19 21:59 Last Admin: 10/17/19 10:05 Dose: 300 units Documented by: Insulin Glargine (Lantus Solostar Pen) 100 units SC BID [facility] Stop: 10/17/19 14:00 Last Admin: 10/16/19 22:01 Dose: 100 units Documented by: Insulin Glargine (Lantus) 0 units SC BID [facility]; Protocol Stop: 11/16/19 20:59 [facility]op[facility]) [facility] Stop: 11/16/19 08:59 Magnesium Hydroxide (Milk Of Magnesia) 30 ml PO DAILY PRN PRN Reason: Constipation Stop: 11/15/19 20:01 Metformin HCl (Glucophage Er) 500 mg PO BID [facility] Stop: 11/15/19 20:59 Last Admin: 10/16/19 22:15 Dose: Not Given Documented by: Methimazole (Tapazole) 10 mg PO DAILY [facility] Stop: 11/16/19 08:59 Last Admin: 10/17/19 09:56 Dose: 10 mg Documented by: Miscellaneous (Carbohydrates For Hypoglycemia) 15 - 30 gm PO UD PRN PRN Reason: Hypoglycemia Treatment Stop: 11/15/19 21:44 Miscellaneous Information (Consult Glycemic Management Pharmacy) 1 ea N/A UD PRN PRN Reason: Consult Stop: 11/15/19 21:33 Olanzapine (Zyprexa) 25 mg PO HS [facility] Stop: 11/15/19 21:59 Last Admin: 10/16/19 22:18 Dose: 25 mg Documented by: Sodium Chloride ([place] Nasal) 1 - 2 sprays NA PRN PRN PRN Reason: Nasal Dryness/Congestion Stop: 11/15/19 20:01 Venlafaxine HCl (Effexor Extended Release) 75 mg PO QAM [facility] Stop: 11/16/19 08:59 Last Admin: 10/17/19 09:57 Dose: 75 mg Documented by:
[2019-10-17] MEDS: ASPIRIN 81 MG ECTAB PO SCH (11:37)
[2019-10-17] MEDS: lisinopriL 40 MG TAB PO SCH (11:38)
[2019-10-17] MEDS: hydroCHLOROthiazide 25 MG TAB PO SCH (11:38)
[2019-10-17] MEDS: INSULIN GLARGINE 100 UNIT/ML VIAL SC SCH (20:37)
[2019-10-17] MEDS: VASCEPA PO SCH (20:43)
[2019-10-17] MEDS: OLANZapine 5 MG TABLET PO SCH (20:44)
[2019-10-17] MEDS: BENZTROPINE MESYLATE 1 MG TAB PO SCH (20:45)
[2019-10-18] MEDS: AMOXICILLIN 500 MG CAP PO SCH ×2 (10:05→13:36)
[2019-10-18] MEDS: VENLAFAXINE HCL XR 75 MG CAPXR PO SCH (10:06)
[2019-10-18] MEDS: VASCEPA PO SCH ×2 (10:06→21:11)
[2019-10-18] MEDS: CYANOCOBALAMIN 500 MCG TABLET (VITAMIN B-12) PO SCH (10:07)
[2019-10-18] MEDS: INSULIN ASPART 100 UNITS/ML 3 ML PEN SC SCH ×4 (10:08→20:48)
[2019-10-18] MEDS: INSULIN GLARGINE 100 UNIT/ML VIAL SC SCH ×2 (10:15→21:07)
[2019-10-18] MEDS: hydroCHLOROthiazide 25 MG TAB PO SCH (10:39)
[2019-10-18] MEDS: ASPIRIN 81 MG ECTAB PO SCH (10:39)
[2019-10-18] MEDS: ATORVASTATIN 40 MG TAB PO SCH (10:40)
[2019-10-18] MEDS: lisinopriL 40 MG TAB PO SCH (10:40)
[2019-10-18] MEDS: methIMAzole 5 MG TABLET PO SCH (10:40)
--- NOTE | 2019-10-18 12:49 | Psychiatric Progress Note ---
Date of Service October 18, 2019 Impression / Recommendations Impression This 54-year-old woman carries a known diagnoses of schizoaffective disorder. She currently says that she feels her main problem is "depression," and she acknowledges ongoing suicidal ideations, although she reports that these have been less intense since her admission to the hospital. She continues to harbor a fairly well systematized delusional belief. Specifically, she tells me that she believes that, at the age of 54, she is although she also acknowledges that she has been postmenopausal for a number of years and recognizes that others do not believe that she is, in fact, bearing a child. Her explanation is that she had been "a while back" and had suffered a "partial miscarriage." However, she believes that somehow a viable portion of the fetus survived the miscarriage and has gone on to develop into a normal, healthy unborn child. For that reason, she says that she is reluctant to take medications, and, in fact, this, combined with her florid psychosis and report of auditory hallucinations that tell her to kill her self, is a primary reason for her current hospitalization. Specifically, the patient has been refusing to follow her diabetic regimen, has not been taking her insulin and other hypoglycemic agents in the community, and also has not been taking her antihypertensive medications. Her blood glucose levels have been substantially elevated, and her blood pressure is also been dangerously elevated. Without joining the patient and her delusional beliefs, I did get the patient understand that not taking essential medications is dangerous not only to a fetus, but also to anyone carrying a fetus, and although the patient did not alter her fixed belief that she is , she did indicate that she understood that it would be harmful to a child where she to not take good care of her own health. Within that context, she did follow me to the medication cart and took all of her medications with the exception of her statin. (1) Schizoaffective disorder, depressive type: 10/17 - Continue voluntary inpatient treatment. Continue olanzapine, benztropine, and venlafaxine XR at home doses, as patient has been nonadherent and skipping dose, so has not likely been receiving full effect of her medications. She reports good tolerance of these medications, and this regimen has worked for her in the past. -Fasting labs for monitoring on an atypical antipsychotic: Hemoglobin A1c on admission was 10.0, with an estimated average glucose of 240. FLP results reviewed from 07/09/2019; triglycerides elevated at 319, remainder of values within normal limits. -Coordinate care with the patient's BCM, Mercedes Bullock, and contact [facility] to coordinate with Dr. Guillen and ensure she is assigned to a new therapist. -Encourage group attendance and participation. -Suicide checks for safety. Work on healthy coping skills and discharge safety plan. Reality testing as tolerated. -Support options for limiting her access to large amounts of pills, especially when more depressed and having suicidal thoughts, given her history of multiple suicide attempts by overdose. 10/18 -We are continuing to provide gentle reality testing. The patient continues to harbor delusional beliefs and continues to tell us that she is afraid to take certain medications because she is (at the age of 54). -She reports that she has not been hearing auditory hallucinations recently and her thoughts of suicide have been less. While she does tell us that she is able to contract for her own personal safety in the hospital and will not make attempts to harm herself here, she says that she "cannot be sure" what she might do when she leaves the hospital, particularly if she begins to hear the voices again. -Today, the patient tells me that she feels she is tolerating her medications well and that they are "helping." (2) Diabetes mellitus type 2, uncontrolled: Continue home dose of metformin, insulin, diabetic diet, and consult glycemic control pharmacist. 10/18 -The patient's blood sugars have all been running high, with the lowest being recently and 115. The patient says that she recognizes her need to adhere with her diabetic regimen and indicates that she intends to cooperate with this fully in this regard. Present on Admission?: Yes (3) Dyslipidemia: Continue home dose of Lipitor (4) Hypertension: Continue home dose of lisinopril 10/18 -The issue today has been that the patient has been nonadherent with her psychiatric medications. Her blood pressures were initially quite high, but most recently, while still elevated, was 159/92. -The patient was able to accept my strong advice today to take her antihypertensive medications and she does indicate that she understands that not taking them represents a risk of stroke, heart attack, and kidney failure. -The patient did take her antihypertensive medications today. Present on Admission?: Yes Inventory Assets Strengths: Intelligent. Stable living environment. Insight into the fact that she needs treatment for a mental illness. Needs: [place] from delusional beliefs that are preventing her from taking her medications. Resolution of command auditory hallucinations. Resolution of active thoughts of suicide. Multiple interests, including travel and world history. Risk Factors Assessment Serious mental illness. History of past multiple suicide attempts, primarily by overdose. Male: No : Yes Do You Have Access To A Gun?: No Health Problems: Yes Mental Health Diagnoses: Yes Substance Use Disorders: No Previous Attempt: Yes Previous Attempt; Highly Lethal: Yes Previous Attempt; Planned: Yes Previous Attempt; Didn't Tell Anyone: Yes Family History of Suicide: No Previous Psychiatric Hospitalization: Yes Hopelessness: Yes Smoker: No Protective Factors Assessment Mandaeism Beliefs: No : No Responsible for Young Children: No Employed: No Stable Relationships: Yes Supportive Family: Yes Good Rapport with Provider: Yes Absence of Any Risk Factors Above: No Interval History Chief Complaint " Depression". Review of Systems Sleep Information Total Hours of Sleep: 3.5 Sleep Comments: pt on q-15 minute checks Meal Information Percent Meal Consumed - Breakfast: 100 Percent Meal Consumed - Lunch: 100 Percent Meal Consumed - Dinner: 100 Subjective Subjective Patient was seen & assessed and interval progress reviewed with treatment team. Met individually with the patient in order to assess her current mental status, evaluate her response to treatment, coordinate any necessary changes in the patient's medication regimen with the patient, and address issues, questions and concerns that may arise. Patient began the conversation with me today and what initially appeared to be a coherent and lucid fashion. She described her family background, several of her life experiences, and noted that she enjoys living in a assisted on [facility] in [place]. However, when asked about the fact that she had refused some of her medications this morning she replied, "I think I am and I do not want to risk harming the baby." She confirmed that she is 54 years old and postmenopausal, but insists that she believes that she is , nevertheless. When asked to elaborate further, she noted that she had previously been , had a "partial miscarriage," and that a viable portion of the fetus survived and, in her view, is "progressing." The patient also tells me that she has a 22-year-old daughter who is currently a student and lives locally. I gently confronted the patient with reality, and explained that regardless of whether she is or not it will be dangerous for her not to take her antihypertensive and hypoglycemic medications, and eventually she agreed. She asked that we go through her list of medications to identify the ones that she might reasonably decide not to take in the ones that she will need to take because not taking them could result in serious morbidity or mortality in the short-term. I agreed that her statin (Lipitor) might be something that she could reasonably refuse at this point, but that I would also not recommend that she discontinue that. The patient notes that difficulty sleeping remains an issue. Physical Exam Psychiatric Orientation: alert, oriented x 3 and cooperative Apperance: appropriately dressed and appropriately groomed Eye Contact: + fair eye contact Motor Behavior: + psychomotor retardation Speech: normal rate/rhythm/volume of speech Affect: + constricted affect However the patient does smile appropriately on several occasions and is fairly engaging. Mood: + depressed mood Thought Process: goal directed thought process Thought Content: + delusions Patient reports ongoing thoughts of suicide, but says that these have lessened recently. She says that she is able to contract for safety in the hospital. Homicidal Thoughts: denies homicidal thoughts Hallucinations: + auditory hallucinations Cognition: recent memory grossly intact, remote memory grossly intact and attention grossly intact Estimated Intelligence: + above average estimated intelligence Insight: + severely impaired insight Judgement: + poor judgement Vital Signs (Past 24 Hours) Last Vital Signs Temp 36.3 C L 10/18/19 06:00 Pulse 78 10/18/19 06:36 Resp 16 10/18/19 06:00 BP 155/93 H 10/18/19 06:36 Pulse Ox 98 10/16/19 19:50 Results & Data ([facility]) Laboratory Results Laboratory Results - last 24 hr 10/17/19 10/17/19 10/17/19 12:33 16:32 20:18 POC Glucose 227 H 227 H 115 H 10/18/19 07:37 POC Glucose 192 H Current Inpatient Medications Current Inpatient Medications: Current Inpatient Medications Acetaminophen (Tylenol) 650 mg PO Q4H PRN PRN Reason: Headache or Minor Fever Stop: 11/15/19 20:01 Al Hydrox/Mg Hydrox/Simethicone (Maalox) 30 ml PO Q4H PRN PRN Reason: GI Upset Stop: 11/15/19 20:01 Amoxicillin (Amoxil) 500 mg PO TID [facility] Stop: 10/26/19 20:59 Last Admin: 10/18/19 10:05 Dose: 500 mg Documented by: Aspirin (Ecotrin Ectab) 81 mg PO QAM [facility] Stop: 11/16/19 08:59 Last Admin: 10/18/19 10:39 Dose: 81 mg Documented by: Atorvastatin Calcium (Lipitor) 80 mg PO QAM [facility] Stop: 11/16/19 08:59 Last Admin: 10/18/19 10:40 Dose: Not Given Documented by: Benztropine Mesylate (Cogentin) 1 mg PO HS [facility] Stop: 11/15/19 21:59 Last Admin: 10/17/19 20:45 Dose: 1 mg Documented by: Bismuth Subsalicylate (Kaopectate) 15 ml PO PRN PRN PRN Reason: Loose Stool Stop: 11/15/19 20:01 Cyanocobalamin (Vitamin B-12) 1,000 mcg PO [facility] Stop: 11/16/19 08:59 Last Admin: 10/18/19 10:07 Dose: 1,000 mcg Documented by: Dextrose (Dextrose 50%) 25 - 50 ml IV UD PRN; Protocol PRN Reason: Hypoglycemia Protocol Stop: 11/15/19 21:44 Glipizide (Glucotrol) 10 mg PO BIDM [facility] Stop: 11/16/19 08:59 Glucagon (Glucagen) 1 mg SQ UD PRN; Protocol PRN Reason: Hypoglycemia Protocol Stop: 11/15/19 21:44 Glucose (Glucose 40%) 15 - 30 gm PO UD PRN; Protocol PRN Reason: Hypoglycemia Protocol Stop: 11/15/19 21:44 Glucose (Dex4 Glucose) 4 - 8 tabs PO UD PRN; Protocol PRN Reason: Hypoglycemia Protocol Stop: 11/15/19 21:44 [facility]oth[facility] ([facility]ctz) [facility] Stop: 11/16/19 08:59 Last Admin: 10/18/19 10:39 Dose: 25 mg Documented by: Hydroxyzine HCl (Vistaril) 50 mg PO HS PRN PRN Reason: Insomnia Stop: 11/15/19 20:20 Insulin Aspart (Novolog Flexpen) [facility] Stop: 03/20/20 21:59 Last Admin: 10/18/19 10:08 Dose: 16 units Documented by: Insulin Glargine (Lantus) 0 units SC BID [facility]; Protocol Stop: 11/16/19 20:59 Last Admin: 10/18/19 10:15 Dose: 85 units Documented by: Lisinopril (Zestril) 40 mg PO QAM [facility] Stop: 11/16/19 08:59 Last Admin: 10/18/19 10:40 Dose: 40 mg Documented by: Magnesium Hydroxide (Milk Of Magnesia) 30 ml PO DAILY PRN PRN Reason: Constipation Stop: 11/15/19 20:01 Metformin HCl (Glucophage Er) 500 mg PO BID [facility] Stop: 11/15/19 20:59 Last Admin: 10/16/19 22:15 Dose: Not Given Documented by: Methimazole (Tapazole) 10 mg PO DAILY [facility] Stop: 11/16/19 08:59 Last Admin: 10/18/19 10:40 Dose: Not Given Documented by: Miscellaneous (Carbohydrates For Hypoglycemia) 15 - 30 gm PO UD PRN PRN Reason: Hypoglycemia Treatment Stop: 11/15/19 21:44 Miscellaneous Information (Consult Glycemic Management Pharmacy) 1 ea N/A UD PRN PRN Reason: Consult Stop: 11/15/19 21:33 Vascepa~~Non- Formulary Patient's Own Med 1 ea PO BID [facility] Stop: 11/16/19 20:59 Last Admin: 10/18/19 10:06 Dose: 1 gm Documented by: Olanzapine (Zyprexa) 25 mg PO HS [facility] Stop: 11/15/19 21:59 Last Admin: 10/17/19 20:44 Dose: 25 mg Documented by: Sodium Chloride (Whiteside Nasal) 1 - 2 sprays NA PRN PRN PRN Reason: Nasal Dryness/Congestion Stop: 11/15/19 20:01 Venlafaxine HCl (Effexor Extended Release) 75 mg PO QAM [facility] Stop: 11/16/19 08:59 Last Admin: 10/18/19 10:06 Dose: 75 mg Documented by: Mental Health & Subst Abuse Tx Psychiatrist Name of Psychiatrist: Dr. Basilio Psychiatrist's Therapist Name of Therapist: Aminta Therapist's Date of Therapist Appointment: 11/08/19 Time of Therapist Appointment: 11:00am Last Repairer Name of Last Repairer: Sravanthi MOREL Phone Number for Last Repairer: [phone] Post Discharge Appointments Primary Care Physician Name Of Family Doctor: Dr. Rogers Partial or Psych Rehab Name of Partial or Psych Rehab: [facility] Phone Number of Partial or Psych Rehab: [phone]
[2019-10-18] MEDS: BENZTROPINE MESYLATE 1 MG TAB PO SCH (21:11)
[2019-10-18] MEDS: OLANZapine 5 MG TABLET PO SCH (21:12)
--- NOTE | 2019-10-19 08:48 | Psychiatric Progress Note ---
Date of Service October 19, 2019 Impression / Recommendations Impression 54-year-old woman with schizoaffective disorder who presented with delusions and suicidal ideation. She continues to harbor a fairly well systematized delusional belief, but is slightly less focused on it today. Unfortunately, this is led to her refusing medications at times, which exacerbated presenting psychotic and symptoms, as well as her multiple medical problems. She has demonstrated some improvement, and we will continue to engage her in reality testing and coping skills. (1) Schizoaffective disorder, depressive type: 10/17 - Continue voluntary inpatient treatment. Continue olanzapine, benztropine, and venlafaxine XR at home doses, as patient has been nonadherent and skipping dose, so has not likely been receiving full effect of her medications. She reports good tolerance of these medications, and this regimen has worked for her in the past. -Fasting labs for monitoring on an atypical antipsychotic: Hemoglobin A1c on admission was 10.0, with an estimated average glucose of 240. FLP results reviewed from 07/09/2019; triglycerides elevated at 319, remainder of values within normal limits. -Coordinate care with the patient's BCM, Mercedes Bullock, and contact [facility] to coordinate with Dr. Guillen and ensure she is assigned to a new therapist. -Encourage group attendance and participation. -Suicide checks for safety. Work on healthy coping skills and discharge safety plan. Reality testing as tolerated. -Support options for limiting her access to large amounts of pills, especially when more depressed and having suicidal thoughts, given her history of multiple suicide attempts by overdose. 10/18 -We are continuing to provide gentle reality testing. The patient continues to harbor delusional beliefs and continues to tell us that she is afraid to take certain medications because she is (at the age of 54). -She reports that she has not been hearing auditory hallucinations recently and her thoughts of suicide have been less. While she does tell us that she is able to contract for her own personal safety in the hospital and will not make attempts to harm herself here, she says that she "cannot be sure" what she might do when she leaves the hospital, particularly if she begins to hear the voices again. -Today, the patient tells me that she feels she is tolerating her medications well and that they are "helping." 10/19 - Continue current medications and treatment plan. Assist patient to identify ways to reality test and reassure her regarding need to take medications daily for psychiatric and health issues. (2) Diabetes mellitus type 2, uncontrolled: Continue home dose of metformin, insulin, diabetic diet, and consult glycemic control pharmacist. 10/18 -The patient's blood sugars have all been running high, with the lowest being recently and 115. The patient says that she recognizes her need to adhere with her diabetic regimen and indicates that she intends to cooperate with this fully in this regard. (3) Dyslipidemia: Continue home dose of Lipitor (4) Hypertension: Continue home dose of lisinopril 10/18 -The issue today has been that the patient has been nonadherent with her psychiatric medications. Her blood pressures were initially quite high, but most recently, while still elevated, was 159/92. -The patient was able to accept my strong advice today to take her antihypertensive medications and she does indicate that she understands that not taking them represents a risk of stroke, heart attack, and kidney failure. -The patient did take her antihypertensive medications today. Inventory Assets Strengths: Intelligent. Stable living environment. Insight into the fact that she needs treatment for a mental illness. Needs: [place] from delusional beliefs that are preventing her from taking her medications. Resolution of command auditory hallucinations. Resolution of active thoughts of suicide. Multiple interests, including travel and world history. Risk Factors Assessment Male: No : Yes Do You Have Access To A Gun?: No Health Problems: Yes Mental Health Diagnoses: Yes Substance Use Disorders: No Previous Attempt: Yes Previous Attempt; Highly Lethal: Yes Previous Attempt; Planned: Yes Previous Attempt; Didn't Tell Anyone: Yes Family History of Suicide: No Previous Psychiatric Hospitalization: Yes Hopelessness: Yes Smoker: No Protective Factors Assessment Scientology Beliefs: No : No Responsible for Young Children: No Employed: No Stable Relationships: Yes Supportive Family: Yes Good Rapport with Provider: Yes Absence of Any Risk Factors Above: No Interval History Chief Complaint "Better". Review of Systems Sleep Information Total Hours of Sleep: 6 Sleep Comments: pt on q-15 minute checks Meal Information Percent Meal Consumed - Breakfast: 70 Percent Meal Consumed - Lunch: 100 Percent Meal Consumed - Dinner: 100 Nutrition Comment: per meal record Subjective Subjective Patient was seen & assessed and interval progress reviewed with nursing and social work. Staff report she continues to endorse psychotic symptoms, auditory hallucinations, and intermittently refuses some of her medications. She has a family meeting with her mother today. On my assessment, she reports mood is improving as she is less hopeless and "not feeling hebert, but better." She states she has been thinking about her past hospitalizations, stating she wishes she would have addressed her problems more in depth when she was here >10 years ago, stating she had "a lot of sexual problems, other problems, I remember getting shots in the quiet room, screaming, I just regret I never got to the bottom of what was really going on..." She does think she is working on the roots of her problems this hospitalization, stating the Patient Workbook has been very helpful. She states she is worried about relapse when she leaves, as she often feels better in the hospital but quickly relapses and gets readmitted. She continues to report fears of taking medications, often related to delusions that she is (or partially after a miscarriage years ago), and that the medications will harm the fetus. Although she is able to state that this is irrational, as she is postmenopausal and has not been in many years, she continues to act on the delusional thoughts. She has been able to respond at times reality testing, but is still refusing some of her medications. Physical Exam Psychiatric Orientation: alert and cooperative Apperance: appropriately dressed, appropriately groomed and appeared stated age Eye Contact: good eye contact Motor Behavior: steady gait and station and no abnormal motor movements Speech: normal rate/rhythm/volume of speech Affect: + anxious affect and mood congruent with affect "getting better" Thought Process: + circumstantial thought process Thought Content: + delusions but less focused on delusions of Suicidal Thoughts: denies suicidal thoughts Homicidal Thoughts: denies homicidal thoughts Hallucinations: no auditory hallucinations and no visual hallucinations Cognition: recent memory grossly intact, attention grossly intact and language grossly intact Insight: + impaired insight Judgement: + impaired judgement Vital Signs (Past 24 Hours) Last Vital Signs Temp 36.6 C 10/19/19 06:00 Pulse 85 10/19/19 06:26 Resp 16 10/19/19 06:00 BP 125/85 10/19/19 06:26 Pulse Ox 98 10/16/19 19:50 Results & Data ([facility]) Laboratory Results Laboratory Results - last 24 hr 10/18/19 10/18/1920 12:25 17:03 20:32 POC Glucose 197 H 146 H 265 H 10/19/19 08:36 POC Glucose 172 H Current Inpatient Medications Current Inpatient Medications: Current Inpatient Medications Acetaminophen (Tylenol) 650 mg PO Q4H PRN PRN Reason: Headache or Minor Fever Stop: 11/15/19 20:01 Al Hydrox/Mg Hydrox/Simethicone (Maalox) 30 ml PO Q4H PRN PRN Reason: GI Upset Stop: 11/15/19 20:01 Aspirin (Ecotrin Ectab) 81 mg PO [facility] Stop: 11/16/19 08:59 Last Admin: 10/18/19 10:39 Dose: 81 mg Documented by: Atorvastatin Calcium (Lipitor) 80 mg PO [facility] Stop: 11/16/19 08:59 Last Admin: 10/18/19 10:40 Dose: Not Given Documented by: Benztropine Mesylate (Cogentin) 1 mg PO [facility] Stop: 11/15/19 21:59 Last Admin: 10/18/19 21:11 Dose: 1 mg Documented by: Bismuth Subsalicylate (Kaopectate) 15 ml PO PRN PRN PRN Reason: Loose Stool Stop: 11/15/19 20:01 Cyanocobalamin (Vitamin B-12) 1,000 mcg PO [facility] Stop: 11/16/19 08:59 Last Admin: 10/18/19 10:07 Dose: 1,000 mcg Documented by: Dextrose (Dextrose 50%) 25 - 50 ml IV UD PRN; Protocol PRN Reason: Hypoglycemia Protocol Stop: 11/15/19 21:44 [facility]) [facility] Stop: 11/16/19 08:59 Glucagon (Glucagen) 1 mg SQ UD PRN; Protocol PRN Reason: Hypoglycemia Protocol Stop: 11/15/19 21:44 Glucose (Glucose 40%) 15 - 30 gm PO UD PRN; Protocol PRN Reason: Hypoglycemia Protocol Stop: 11/15/19 21:44 Glucose (Dex4 Glucose) 4 - 8 tabs PO UD PRN; Protocol PRN Reason: Hypoglycemia Protocol Stop: 11/15/19 21:44 Hydrochlorothiazide (Hctz) [facility] Stop: 11/16/19 08:59 Last Admin: 10/18/19 10:39 Dose: 25 mg Documented by: Hydroxyzine HCl (Vistaril) 50 mg PO HS PRN PRN Reason: Insomnia Stop: 11/15/19 20:20 Insulin Aspart (Novolog Flexpen) 0 units SC ACHS [facility] Stop: 11/15/19 21:59 Last Admin: 10/18/19 20:48 Dose: 17 units Documented by: Insulin Glargine (Lantus) 0 units SC BID [facility]; Protocol Stop: 11/16/19 20:59 Last Admin: 10/18/19 21:07 Dose: 85 units Documented by: Lisinopril (Zestril) 40 mg PO QAM [facility] Stop: 11/16/19 08:59 Last Admin: 10/18/19 10:40 Dose: 40 mg Documented by: Magnesium Hydroxide (Milk Of Magnesia) 30 ml PO DAILY PRN PRN Reason: Constipation Stop: 11/15/19 20:01 Metformin HCl (Glucophage Er) 500 mg PO BID [facility] Stop: 11/15/19 20:59 Last Admin: 10/16/19 22:15 Dose: Not Given Documented by: Methimazole (Tapazole) 10 mg PO DAILY [facility] Stop: 11/16/19 08:59 Last Admin: 10/18/19 10:40 Dose: Not Given Documented by: Miscellaneous (Carbohydrates For Hypoglycemia) 15 - 30 gm PO UD PRN PRN Reason: Hypoglycemia Treatment Stop: 11/15/19 21:44 Miscellaneous Information (Consult Glycemic Management Pharmacy) 1 ea N/A UD PRN PRN Reason: Consult Stop: 11/15/19 21:33 Vascepa~~Non- Formulary Patient's Own Med 1 ea PO BID [facility] Stop: 11/16/19 20:59 Last Admin: 10/18/19 21:11 Dose: 1 gm Documented by: Olanzapine (Zyprexa) 25 mg PO HS [facility] Stop: 11/15/19 21:59 Last Admin: 10/18/19 21:12 Dose: 25 mg Documented by: Sodium Chloride ([place] Nasal) 1 - 2 sprays NA PRN PRN PRN Reason: Nasal Dryness/Congestion Stop: 11/15/19 20:01 Venlafaxine HCl (Effexor Extended Release) 75 mg PO QAM [facility] Stop: 11/16/19 08:59 Last Admin: 10/18/19 10:06 Dose: 75 mg Documented by: Mental Health & Subst Abuse Tx Psychiatrist Name of Psychiatrist: Dr. Basilio Psychiatrist's Therapist Name of Therapist: Aminta Therapist's Date of Therapist Appointment: 11/08/19 Time of Therapist Appointment: 11:00am Edger Runner Name of Edger Runner: Sravanthi MOREL Phone Number for Edger Runner: [phone] Post Discharge Appointments Primary Care Physician Name Of Family Doctor: Dr. Rogers Partial or Psych Rehab Name of Partial or Psych Rehab: [facility] Phone Number of Partial or Psych Rehab: [phone]
[2019-10-19] MEDS: VENLAFAXINE HCL XR 75 MG CAPXR PO SCH (09:15)
[2019-10-19] MEDS: ASPIRIN 81 MG ECTAB PO SCH (09:15)
[2019-10-19] MEDS: ATORVASTATIN 40 MG TAB PO SCH (09:16)
[2019-10-19] MEDS: hydroCHLOROthiazide 25 MG TAB PO SCH (09:16)
[2019-10-19] MEDS: VASCEPA PO SCH ×2 (09:17→21:14)
[2019-10-19] MEDS: methIMAzole 5 MG TABLET PO SCH (09:17)
[2019-10-19] MEDS: CYANOCOBALAMIN 500 MCG TABLET (VITAMIN B-12) PO SCH (09:18)
[2019-10-19] MEDS: lisinopriL 40 MG TAB PO SCH (09:18)
[2019-10-19] MEDS: INSULIN ASPART 100 UNITS/ML 3 ML PEN SC SCH ×4 (09:35→21:28)
[2019-10-19] MEDS: INSULIN GLARGINE 100 UNIT/ML VIAL SC SCH ×2 (09:37→21:25)
--- NOTE | 2019-10-19 10:25 | Pharmacy Report ---
Glycemic Control Progress Note - Date of Service October 19, 2019 - Scope Glycemic Pharmacist consulted for glycemic control to write orders per [facility] inpatient glycemic control protocol. - Objective Accuchecks BSG(last 24 hours):: 10/18/19 10/18/19 10/18/19 12:25 17:03 20:32 POC Glucose 197 H 146 H 265 H 10/19/19 08:36 POC Glucose 172 H HbA1c:: Hemoglobin A1c 10.0 % (4.5-5.6) H 10/16/19 15:56 - Recent Pertinent Medications The patient is currently receiving: * Basal insulin: Lantus 85 units every 12 hours * Correctional Insulin: Novolog Correction per scale ACHS Goal Range: Low 120 mg/dL - High 160 mg/dL Correction Factor: 10 mg/dL/unit * Prandial insulin: Per carb ratio of 1 unit per 3.5 grams CHO consumed - Outpatient Anti-Diabetic Meds Lantus 100 units SQ BID Victoza metformin glipizide - Assessment & Plan ASSESSMENT: * See progress note from 10/17/2019 for more background info, in short: * Pt receiving SQ basal bolus insulin regimen for hyperglycemia secondary to baseline DM (outpatient regimen on hold). * Patient is currently receiving an average of 247 units of insulin per day * 170 units of basal insulin * 77 units of prandial/correctional insulin * BSGs ranging 146 - 265 mg/dl over the past 24hrs * Changes needed to insulin regimen: * AM Fasting BSG = 172 mg/dl. This is slightly above goal range for patient based on inpatient targets and co-morbidities. Will continue with current scale on Lantus - allows for titration downwards as patient's current regimen is extremely basal heavy (although this mimics outpatient regimen). * Post-prandial BSGs trended upwards therefore tightened CR. * Total daily dose = ~250 units. PLAN FOR INPATIENT GLYCEMIC CONTROL: * Oral Agents * Continue to hold outpatient oral diabetes medications. * Basal insulin * Lantus 65-85 units SQ BID (65 units for BSG less than 140 mg/dL; 75 units for BSG 140-180 mg/dL; 85 units for BSG greater than 180 mg/dL) * Bolus insulin * NovoLog per scale ACHS or Q6hrs while NPO * Goal Range: Low 120 mg/dL - High 160 mg/dL * Correction Factor: 10 mg/dL/unit * Nutritional / Prandial insulin per carb ratio of 1 unit per 3 grams CHO consumed * Please note that the plan above was derived based on current level of insulin resistance and hospital stress. These recommendations are appropriate for inpatient admission only. Plan of care upon discharge will need to be reassessed to avoid potential outpatient hypo/hyperglycemia. Thank you.
[2019-10-19] MEDS: BENZTROPINE MESYLATE 1 MG TAB PO SCH (21:15)
[2019-10-19] MEDS: OLANZapine 5 MG TABLET PO SCH (21:15)
--- NOTE | 2019-10-20 08:10 | Psychiatric Progress Note ---
Date of Service October 20, 2019 Impression / Recommendations Impression 54-year-old woman with schizoaffective disorder who presented with delusions and suicidal ideation. She continues to harbor a fairly well systematized delusional belief, but is slightly less focused on it today. Unfortunately, this is led to her refusing medications at times, which exacerbated presenting psychotic and symptoms, as well as her multiple medical problems. She has demonstrated some improvement, and we will continue to engage her in reality testing and coping skills. (1) Schizoaffective disorder, depressive type: 10/17 - Continue voluntary inpatient treatment. Continue olanzapine, benztropine, and venlafaxine XR at home doses, as patient has been nonadherent and skipping dose, so has not likely been receiving full effect of her medications. She reports good tolerance of these medications, and this regimen has worked for her in the past. -Fasting labs for monitoring on an atypical antipsychotic: Hemoglobin A1c on admission was 10.0, with an estimated average glucose of 240. FLP results reviewed from 07/09/2019; triglycerides elevated at 319, remainder of values within normal limits. -Coordinate care with the patient's BCM, Mercedes Bullock, and contact [facility] to coordinate with Dr. Guillen and ensure she is assigned to a new therapist. -Encourage group attendance and participation. -Suicide checks for safety. Work on healthy coping skills and discharge safety plan. Reality testing as tolerated. -Support options for limiting her access to large amounts of pills, especially when more depressed and having suicidal thoughts, given her history of multiple suicide attempts by overdose. 10/18 -We are continuing to provide gentle reality testing. The patient continues to harbor delusional beliefs and continues to tell us that she is afraid to take certain medications because she is (at the age of 54). -She reports that she has not been hearing auditory hallucinations recently and her thoughts of suicide have been less. While she does tell us that she is able to contract for her own personal safety in the hospital and will not make attempts to harm herself here, she says that she "cannot be sure" what she might do when she leaves the hospital, particularly if she begins to hear the voices again. -Today, the patient tells me that she feels she is tolerating her medications well and that they are "helping." 10/19 - Continue current medications and treatment plan. Assist patient to identify ways to reality test and reassure her regarding need to take medications daily for psychiatric and health issues. -Family meeting held with mother. 10/20 - Continue current treatment plan (2) Diabetes mellitus type 2, uncontrolled: Continue home dose of metformin, insulin, diabetic diet, and consult glycemic control pharmacist. 10/18 -The patient's blood sugars have all been running high, with the lowest being recently and 115. The patient says that she recognizes her need to adhere with her diabetic regimen and indicates that she intends to cooperate with this fully in this regard. (3) Dyslipidemia: Continue home dose of Lipitor (4) Hypertension: Continue home dose of lisinopril 10/18 -The issue today has been that the patient has been nonadherent with her psychiatric medications. Her blood pressures were initially quite high, but most recently, while still elevated, was 159/92. -The patient was able to accept my strong advice today to take her antihypertensive medications and she does indicate that she understands that not taking them represents a risk of stroke, heart attack, and kidney failure. -The patient did take her antihypertensive medications today. Inventory Assets Strengths: Intelligent. Stable living environment. Insight into the fact that she needs treatment for a mental illness. Needs: [place] from delusional beliefs that are preventing her from taking her medications. Resolution of command auditory hallucinations. Resolution of active thoughts of suicide. Multiple interests, including travel and world history. Risk Factors Assessment Male: No : Yes Do You Have Access To A Gun?: No Health Problems: Yes Mental Health Diagnoses: Yes Substance Use Disorders: No Previous Attempt: Yes Previous Attempt; Highly Lethal: Yes Previous Attempt; Planned: Yes Previous Attempt; Didn't Tell Anyone: Yes Family History of Suicide: No Previous Psychiatric Hospitalization: Yes Hopelessness: Yes Smoker: No Protective Factors Assessment Taoism Beliefs: No : No Responsible for Young Children: No Employed: No Stable Relationships: Yes Supportive Family: Yes Good Rapport with Provider: Yes Absence of Any Risk Factors Above: No Interval History Chief Complaint "I've been feeling more depressed, grief-stricken". Review of Systems Sleep Information Total Hours of Sleep: 7 Sleep Comments: pt on q-15 minute checks Meal Information Percent Meal Consumed - Breakfast: 100 Percent Meal Consumed - Lunch: 90 Percent Meal Consumed - Dinner: 100 Nutrition Comment: per meal record Subjective Subjective Patient was seen & assessed and interval progress reviewed with nursing and social work. Staff report she had a good meeting with her mother, who was supportive and gave her positive feedback for improved insight into her symptoms (used to think that the auditory hallucinations were coming from her house, so would move in response to hearing them. She is attending groups, went to group therapy closed her eyes through much of it and did not contribute much, but declining others and isolating at times. She continues to report labile moods with multiple lows throughout the day. On my assessment, she reports feeling more depressed, which she attributes to "the loss of my baby, feeling grief- stricken, it's not that bad, my meds help lift me up." She talks about multiple losses, stating she has "suffered a lot of slander, people saying they hate me, don't believe in me, and I miss my friends in [place], don't think they would slander me." States she hasn't been back to [place] for 25 years, and tried to write to her friends from school, but they never respond, so has no contact with them since high school. She reports good sleep last night, but refused several of her meds this morning, including venlafaxine XR,s stating she was worried they would "hurt my baby." Staff were later able to convince her to take them. States she was "paranoid, thinking they were trying to kill me." She reports feeling "empty and threadbare, like there's a hole in my stomach, it helps to go to rastafari and pray." Physical Exam Psychiatric Orientation: alert and cooperative Apperance: appropriately dressed, appropriately groomed and appeared stated age Eye Contact: + fair eye contact Motor Behavior: steady gait and station and no abnormal motor movements Speech: normal rate/rhythm/volume of speech Affect: + blunted affect "depressed" Thoughts goal directed for the most part, but tangential at times Thought Content: + preoccupation (on "sexual problems," "I had a psychic connection with Carl Reese"), + paranoid, + delusions and + guilt Suicidal Thoughts: denies suicidal thoughts Homicidal Thoughts: denies homicidal thoughts Hallucinations: no auditory hallucinations Cognition: recent memory grossly intact, attention grossly intact and language grossly intact Insight: + impaired insight Judgement: + impaired judgement Vital Signs (Past 24 Hours) Last Vital Signs Temp 36.7 C 10/20/19 06:00 Pulse 78 10/20/19 06:00 Resp 18 10/20/19 06:00 BP 127/86 10/20/19 06:00 Pulse Ox 98 10/16/19 19:50 Results & Data ([facility]) Laboratory Results Laboratory Results - last 24 hr 10/19/19 10/19/19 10/19/19 08:36 12:19 17:07 POC Glucose 172 H 183 H 168 H 10/19/19 21:20 POC Glucose 284 H Current Inpatient Medications Current Inpatient Medications: Current Inpatient Medications Acetaminophen (Tylenol) 650 mg PO Q4H PRN PRN Reason: Headache or Minor Fever Stop: 11/15/19 20:01 Al Hydrox/Mg Hydrox/Simethicone (Maalox) 30 ml PO Q4H PRN PRN Reason: GI Upset Stop: 11/15/19 20:01 Aspirin (Ecotrin Ectab) 81 mg PO [facility] Stop: 11/16/19 08:59 Last Admin: 10/19/19 09:15 Dose: 81 mg Documented by: Atorvastatin Cal[facility] ([facility]) [facility] [place]: 11/16/19 08:59 Last Admin: 10/19/19 09:16 Dose: 80 mg Documented by: Benztropine Mesylate (Cogentin) 1 mg PO [facility] Stop: 11/15/19 21:59 Last Admin: 10/19/19 21:15 Dose: 1 mg Documented by: Bismuth Subsalicylate (Kaopectate) 15 ml PO PRN PRN PRN Reason: Loose Stool Stop: 11/15/19 20:01 Cyanocobalamin (Vitamin B-12) 1,000 mcg PO [facility] Stop: 11/16/19 08:59 Last Admin: 10/19/19 09:18 Dose: 1,000 mcg Documented by: Dextrose (Dextrose 50%) 25 - 50 ml IV UD PRN; Protocol PRN Reason: Hypoglycemia Protocol Stop: 11/15/19 21:44 Glipizide (Glucotrol) 10 mg PO BIDM [facility] Stop: 11/16/19 08:59 Glucagon (Glucagen) 1 mg SQ UD PRN; Protocol PRN Reason: Hypoglycemia Protocol Stop: 11/15/19 21:44 Glucose (Glucose 40%) 15 - 30 gm PO UD PRN; Protocol PRN Reason: Hypoglycemia Protocol Stop: 11/15/19 21:44 Glucose (Dex4 Glucose) 4 - 8 tabs PO UD PRN; Protocol PRN Reason: Hypoglycemia Protocol Stop: 11/15/19 21:44 Hydrochlorothiazide (Hctz) 25 mg PO QAM [facility] Stop: 11/16/19 08:59 Last Admin: 10/19/19 09:16 Dose: 25 mg Documented by: Hydroxyzine HCl (Vistaril) 50 mg PO HS PRN PRN Reason: Insomnia Stop: 11/15/19 20:20 Insulin Aspart (Novolog Flexpen) 0 units SC ACHS [facility] Stop: 11/15/19 21:59 Last Admin: 10/19/19 21:28 Dose: 13 units Documented by: Insulin Glargine (Lantus) 0 units SC BID [facility]; Protocol Stop: 11/16/19 20:59 Last Admin: 10/19/19 21:25 Dose: 85 units Documented by: Lisinopril (Zestril) 40 mg PO QAM [facility] Stop: 11/16/19 08:59 Last Admin: 10/19/19 09:18 Dose: 40 mg Documented by: Magnesium Hydroxide (Milk Of Magnesia) 30 ml PO DAILY PRN PRN Reason: Constipation Stop: 11/15/19 20:01 Metformin HCl (Glucophage Er) 500 mg PO BID [facility] Stop: 11/15/19 20:59 Last Admin: 10/16/19 22:15 Dose: Not Given Documented by: Methimazole (Tapazole) 10 mg PO DAILY [facility] Stop: 11/16/19 08:59 Last Admin: 10/19/19 09:17 Dose: 10 mg Documented by: Miscellaneous (Carbohydrates For Hypoglycemia) 15 - 30 gm PO UD PRN PRN Reason: Hypoglycemia Treatment Stop: 11/15/19 21:44 Miscellaneous Information (Consult Glycemic Management Pharmacy) 1 ea N/A UD PRN PRN Reason: Consult Stop: 11/15/19 21:33 Vascepa~~Non- Formulary Patient's Own Med 1 ea PO BID [facility] Stop: 11/16/19 20:59 Last Admin: 10/19/19 21:14 Dose: 1 ea Documented by: Olanzapine (Zyprexa) 25 mg PO HS [facility] Stop: 11/15/19 21:59 Last Admin: 10/19/19 21:15 Dose: 25 mg Documented by: Sodium Chloride ([place] Nasal) 1 - 2 sprays NA PRN PRN PRN Reason: Nasal Dryness/Congestion Stop: 11/15/19 20:01 Venlafaxine HCl (Effexor Extended Release) 75 mg PO QAM [facility] Stop: 11/16/19 08:59 Last Admin: 10/19/19 09:15 Dose: 75 mg Documented by: Mental Health & Subst Abuse Tx Psychiatrist Name of Psychiatrist: Dr. Basilio Psychiatrist's Therapist Name of Therapist: Aminta Therapist's Date of Therapist Appointment: 11/08/19 Time of Therapist Appointment: 11:00am French Lecturer Name of French Lecturer: Sravanthi MOREL Phone Number for French Lecturer: [phone] Post Discharge Appointments Primary Care Physician Name Of Family Doctor: Dr. Rogers Partial or Psych Rehab Name of Partial or Psych Rehab: [facility] Phone Number of Partial or Psych Rehab: [phone]
[2019-10-20] MEDS: ASPIRIN 81 MG ECTAB PO SCH (08:56)
[2019-10-20] MEDS: VENLAFAXINE HCL XR 75 MG CAPXR PO SCH ×2 (08:56→10:21)
[2019-10-20] MEDS: hydroCHLOROthiazide 25 MG TAB PO SCH (08:56)
[2019-10-20] MEDS: VASCEPA PO SCH ×2 (08:57→21:26)
[2019-10-20] MEDS: ATORVASTATIN 40 MG TAB PO SCH ×2 (08:57→10:22)
[2019-10-20] MEDS: methIMAzole 5 MG TABLET PO SCH ×2 (08:58→10:21)
[2019-10-20] MEDS: CYANOCOBALAMIN 500 MCG TABLET (VITAMIN B-12) PO SCH (08:58)
[2019-10-20] MEDS: lisinopriL 40 MG TAB PO SCH (08:59)
[2019-10-20] MEDS: INSULIN ASPART 100 UNITS/ML 3 ML PEN SC SCH ×4 (09:29→21:32)
[2019-10-20] MEDS: INSULIN GLARGINE 100 UNIT/ML VIAL SC SCH (09:34)
--- NOTE | 2019-10-20 09:34 | Pharmacy Report ---
Glycemic Control Progress Note - Date of Service October 20, 2019 - Scope Glycemic Pharmacist consulted for glycemic control to write orders per [facility] inpatient glycemic control protocol. - Objective Accuchecks BSG(last 24 hours):: 10/19/19 10/19/19 10/19/19 12:19 17:07 21:20 POC Glucose 183 H 168 H 284 H 10/20/19 08:32 POC Glucose 162 H HbA1c:: Hemoglobin A1c 10.0 % (4.5-5.6) H 10/16/19 15:56 - Recent Pertinent Medications The patient is currently receiving: * Basal insulin: Lantus 75-85 units every 12 hours * Correctional Insulin: Novolog Correction per scale ACHS Goal Range: Low 120 mg/dL - High 160 mg/dL Correction Factor: 10 mg/dL/unit * Prandial insulin: Per carb ratio of 1 unit per 3 grams CHO consumed - Outpatient Anti-Diabetic Meds Lantus 100 units SQ BID Victoza Metformin Glipizide - Assessment & Plan ASSESSMENT: * See progress note from 10/17/2019 for more background info, in short: * Pt receiving SQ basal bolus insulin regimen for hyperglycemia secondary to baseline DM (outpatient regimen on hold). * Patient is currently receiving an average of 245 units of insulin per day * 160 units of basal insulin * 85 units of prandial/correctional insulin * BSGs ranging 168 - 284 mg/dl over the past 24hrs * Changes needed to insulin regimen: * AM Fasting BSG = 162 mg/dl. This is slightly above goal range for patient based on inpatient targets and co-morbidities. Therefore Basal insulin will be continued with a planned 10% reduction. Again, patient's regimen is weighted heavily basal though she appears to be tolerating such. Tightened Novolog parameters to force a switch towards more bolus insulin. Aim for 140 units today and tomorrow. * Post-prandial BSGs stayed stable until evening which was drawn early. Plan to tighten Novolog to force a more appropriate 50/50 basal/bolus split. * Total daily dose = ~220-240 units. Redistributing regimen for a more even split. PLAN FOR INPATIENT GLYCEMIC CONTROL: * Decreasing Lantus to 60 units SQ x 1 tonight then 70 units SQ BID starting 10/21/2019 * TIGHTENING correction factor to 8 mg/dl/unit * TIGHTENING carb ratio to 1 unit per 2.5 grams CHO consumed * Continuing goal range of Low 120 mg/dL - High 160 mg/dL * Please note that the plan above was derived based on current level of insulin resistance and hospital stress. These recommendations are appropriate for inpatient admission only. Plan of care upon discharge will need to be reassessed to avoid potential outpatient hypo/hyperglycemia. Thank you.
[2019-10-20] MEDS ORDERED: INSULIN GLARGINE 100 UNIT/ML VIAL SC SCH (21:00)
[2019-10-20] MEDS: BENZTROPINE MESYLATE 1 MG TAB PO SCH (21:26)
[2019-10-20] MEDS: OLANZapine 5 MG TABLET PO SCH (21:27)
[2019-10-21] MEDS ORDERED: INSULIN ASPART 100 UNITS/ML 3 ML PEN SC SCH
[2019-10-21] MEDS: VENLAFAXINE HCL XR 75 MG CAPXR PO SCH (08:19)
[2019-10-21] MEDS: hydroCHLOROthiazide 25 MG TAB PO SCH (08:19)
[2019-10-21] MEDS: lisinopriL 40 MG TAB PO SCH (08:19)
[2019-10-21] MEDS: ASPIRIN 81 MG ECTAB PO SCH (08:19)
[2019-10-21] MEDS: methIMAzole 5 MG TABLET PO SCH (08:20)
[2019-10-21] MEDS: CYANOCOBALAMIN 500 MCG TABLET (VITAMIN B-12) PO SCH (08:20)
[2019-10-21] MEDS: ATORVASTATIN 40 MG TAB PO SCH (08:21)
[2019-10-21] MEDS: INSULIN ASPART 100 UNITS/ML 3 ML PEN SC SCH ×4 (08:39→20:40)
[2019-10-21] MEDS: INSULIN GLARGINE 100 UNIT/ML VIAL SC SCH ×2 (08:40→20:48)
[2019-10-21] MEDS: VASCEPA PO SCH ×2 (08:41→20:50)
--- NOTE | 2019-10-21 08:42 | Pharmacy Report ---
Pharmacy Glycemic Short Note 2 - Date of Service October 21, 2019 - Glycemic Short BSG Results (Last 24 hours): 10/20/19 10/20/19 10/20/19 08:32 12:30 16:38 POC Glucose 162 H 202 H 264 H 10/20/19 10/20/19 10/21/19 20:51 20:52 00:01 POC Glucose 367 H* 364 H* 278 H 10/21/19 08:00 POC Glucose 208 H ASSESSMENT: 10/21: * Patient received total of 274 units of insulin yesterday, of which 145 units were basal insulin and 129 were bolus insulin * BSGs yesterday rising 202-263-367 mg/dL - per nursing notes, patient eating ice cream around hs time (could be reasoning for elevated BSGs at that time) * Aiming towards 50/50 split with basal and bolus insulin. Continue to tighten CR this morning. PLAN FOR INPATIENT GLYCEMIC CONTROL: * Hold outpatient oral diabetes medications * Basal insulin * Lantus 70 units BID * Bolus insulin - tighten CR * NovoLog per scale ACHS or Q6hrs while NPO * Goal Range: Low 110 mg/dL - High 140 mg/dL * Correction Factor: 8 mg/dL/unit * Nutritional / Prandial insulin per carb ratio of 1 unit per 2 grams CHO consumed PLAN FOR DISCHARGE: * to be determined closer to discharge
--- NOTE | 2019-10-21 11:41 | Psychiatric Progress Note ---
Date of Service October 21, 2019 Impression / Recommendations Impression 54-year-old woman with schizoaffective disorder who presented with delusions and suicidal ideation. She continues to harbor a fairly well systematized delusional belief, but is slightly less focused on it today. Unfortunately, this is led to her refusing medications at times, which exacerbated presenting psychotic and symptoms, as well as her multiple medical problems. She has demonstrated some improvement, and we will continue to engage her in reality testing and coping skills. Pt encouraged today to begin working on her safety plan. Meeting with her outpatient shoe parts caser scheduled for this afternoon to discuss additional details regarding discharge planning. (1) Schizoaffective disorder, depressive type: 10/17 - Continue voluntary inpatient treatment. Continue olanzapine, benztropine, and venlafaxine XR at home doses, as patient has been nonadherent and skipping dose, so has not likely been receiving full effect of her medications. She reports good tolerance of these medications, and this regimen has worked for her in the past. -Fasting labs for monitoring on an atypical antipsychotic: Hemoglobin A1c on admission was 10.0, with an estimated average glucose of 240. FLP results reviewed from 07/09/2019; triglycerides elevated at 319, remainder of values within normal limits. -Coordinate care with the patient's BCM, Mercedes Bullock, and contact [facility] to coordinate with Dr. Guillen and ensure she is assigned to a new therapist. -Encourage group attendance and participation. -Suicide checks for safety. Work on healthy coping skills and discharge safety plan. Reality testing as tolerated. -Support options for limiting her access to large amounts of pills, especially when more depressed and having suicidal thoughts, given her history of multiple suicide attempts by overdose. 10/18 -We are continuing to provide gentle reality testing. The patient continues to harbor delusional beliefs and continues to tell us that she is afraid to take certain medications because she is (at the age of 54). -She reports that she has not been hearing auditory hallucinations recently and her thoughts of suicide have been less. While she does tell us that she is able to contract for her own personal safety in the hospital and will not make attempts to harm herself here, she says that she "cannot be sure" what she might do when she leaves the hospital, particularly if she begins to hear the voices again. -Today, the patient tells me that she feels she is tolerating her medications well and that they are "helping." 10/19 - Continue current medications and treatment plan. Assist patient to identify ways to reality test and reassure her regarding need to take medications daily for psychiatric and health issues. -Family meeting held with mother. 10/20 - Continue current treatment plan 10/21 - Continue treatment plan as outlined above - pt continues to improve and has been more compliant with her home medication regimen over the last 1-2 days - Meeting with outpatient shoe parts caser this afternoon - Social work team to attempt to coordinate with [facility] regarding medication management, to explore [place] options if necessary (2) Diabetes mellitus type 2, uncontrolled: Continue home dose of metformin, insulin, diabetic diet, and consult glycemic control pharmacist. 10/18 -The patient's blood sugars have all been running high, with the lowest being recently and 115. The patient says that she recognizes her need to adhere with her diabetic regimen and indicates that she intends to cooperate with this fully in this regard. (3) Dyslipidemia: Continue home dose of Lipitor (4) Hypertension: Continue home dose of lisinopril 10/18 -The issue today has been that the patient has been nonadherent with her psychiatric medications. Her blood pressures were initially quite high, but most recently, while still elevated, was 159/92. -The patient was able to accept my strong advice today to take her antihypertensive medications and she does indicate that she understands that not taking them represents a risk of stroke, heart attack, and kidney failure. -The patient did take her antihypertensive medications today. Inventory Assets Strengths: Intelligent. Stable living environment. Insight into the fact that she needs treatment for a mental illness. Needs: [place] from delusional beliefs that are preventing her from taking her medications. Resolution of command auditory hallucinations. Resolution of active thoughts of suicide. Multiple interests, including travel and world history. Risk Factors Assessment Male: No : Yes Do You Have Access To A Gun?: No Health Problems: Yes Mental Health Diagnoses: Yes Substance Use Disorders: No Previous Attempt: Yes Previous Attempt; Highly Lethal: Yes Previous Attempt; Planned: Yes Previous Attempt; Didn't Tell Anyone: Yes Family History of Suicide: No Previous Psychiatric Hospitalization: Yes Hopelessness: Yes Smoker: No Protective Factors Assessment Zoroastrianism Beliefs: No : No Responsible for Young Children: No Employed: No Stable Relationships: Yes Supportive Family: Yes Good Rapport with Provider: Yes Absence of Any Risk Factors Above: No Interval History Identifying Information AMADO OLSON is a 54-year-old F who currently lives in [place] at the [facility], has a history of schizoaffective disorder, and was admitted on 10/16/19 19:59 on a 201 voluntary commitment for depression, psychosis, and suicidal ideation with plan to overdose on pills. Chief Complaint "I'm getting better. I'd say I'm about 50% better, if not 75. I'm hoping to be 100% better by the time I leave." Review of Systems Notes Constitutional: denied Cardiovascular: denied Respiratory: denied Gastrointestinal: denied Neurological: denied Psychiatric: denies symptoms other than stated above Total of at least 10 systems reviewed, pertinent positives as above and in HPI. Sleep Information Total Hours of Sleep: 6.25 Sleep Comments: pt on q-15 minute checks Meal Information Percent Meal Consumed - Breakfast: 80 Percent Meal Consumed - Lunch: 100 Percent Meal Consumed - Dinner: 100 Nutrition Comment: per meal record Subjective Subjective Patient was seen & assessed and interval progress reviewed with treatment team. Staff reports the patient has been isolating in her room periodically, but has been attending group programming with increased frequency over the last day or so. It is reported that patient's thoughts are somewhat more clear, medication compliance has been improving slowly as well. Patient is scheduled to meet with her shoe parts caser this afternoon. Patient was seen today to assess progress since admission. Patient reports feeling as though she is "getting better." Patient estimates her improvement to be about 50 to 75% since the time of admission, she remains hopeful for a 100% improvement "by the time I leave." When asked specifically what patient feels has improved, she states "I feel calmer, cleansed, my mood is drop count associate." Patient is able to have an insightful conversation regarding intermittent issues with medication compliance. Patient is able to recognize that she, in the past, has refused medications based on the belief that they could be harmful to herself or her baby. Patient states that she is able to recognize that she is not , but admits to times that it is harder to reality test. Patient states that she is happy with the progress she has made thus far, and reports a goal to remain out of the hospital for at least another year after she is discharged. Patient denies present suicidal ideation, though does honestly admit to concern about "relapse" after she is discharged. Patient states "I feel like I need a plan to prevent relapse from going back to the suicidal thoughts." This provider encouraged the patient to begin focusing on her safety plan, which she can use to form a basis for a plan to remain out of the inpatient hospital setting. Patient verbalized understanding of this provider's explanation of a safety plan, and was hopeful to work on it later this afternoon. Patient denies other needs or concerns at this time. Physical Exam Psychiatric Orientation: alert, oriented x 3 and cooperative (and pleasant) Apperance: appropriately dressed (casually, in t-shirt and gym shorts), appropriately groomed and appeared stated age Eye Contact: good eye contact Motor Behavior: steady gait and station and no abnormal motor movements Speech: normal rate/rhythm/volume of speech Affect: + blunted affect (appearing subdued, though not overtly depressed) Mood: + depressed mood ("I'm getting better. I'd say I'm about 50% better...") and + anxious mood Thought Process: goal directed thought process, clear/coherent thought process and thought association intact Thought Content: + delusions (ongoing intermittent belief that she is still , not constant); no preoccupation, not paranoid and no hopelessness Suicidal Thoughts: denies suicidal thoughts and denies suicidal intent Denies SI presently, but does admit to concern for "relapse" into suicidal thoughts after she is discharged Homicidal Thoughts: denies homicidal thoughts Hallucinations: no auditory hallucinations and no visual hallucinations Cognition: attention grossly intact and language grossly intact Insight: + limited insight (chronic, though seems to be improving over course of admission) Judgement: + limited judgement (chronic, though seems to be improving over course of admission) Vital Signs (Past 24 Hours) Last Vital Signs Temp 36.9 C 10/21/19 06:00 Pulse 87 10/21/19 06:00 Resp 18 10/21/19 06:00 BP 126/86 10/21/19 06:00 Pulse Ox 98 10/16/19 19:50 Results & Data ([facility]) Laboratory Results Laboratory Results - last 24 hr 10/20/19 10/20/19 10/20/19 12:30 16:38 20:51 POC Glucose 202 H 264 H 367 H* 0210/21/19 10/21/19 20:52 00:01 08:00 POC Glucose 364 H* 278 H 208 H Current Inpatient Medications Current Inpatient Medications: Current Inpatient Medications Acetaminophen (Tylenol) 650 mg PO Q4H PRN PRN Reason: Headache or Minor Fever Stop: 11/15/19 20:01 Al Hydrox/Mg Hydrox/Simethicone (Maalox) 30 ml PO Q4H PRN PRN Reason: GI Upset Stop: 11/15/19 20:01 Aspirin (Ecotrin Ectab) 81 mg PO [facility] Stop: 11/16/19 08:59 Last Admin: 10/21/19 08:19 Dose: 81 mg Documented by: Atorvastatin Calcium (Lipitor) 80 mg PO [facility] Stop: 11/16/19 08:59 Last Admin: 10/21/19 08:21 Dose: 80 mg Documented by: Benztropine Mesylate (Cogentin) 1 mg PO [facility] Stop: 11/15/19 21:59 Last Admin: 10/20/19 21:26 Dose: 1 mg Documented by: Bismuth Subsalicylate (Kaopectate) 15 ml PO PRN PRN PRN Reason: Loose Stool Stop: 11/15/19 20:01 Cyanocobalamin (Vitamin B-12) 1,000 mcg PO [facility] Stop: 11/16/19 08:59 Last Admin: 10/21/19 08:20 Dose: 1,000 mcg Documented by: Dextrose (Dextrose 50%) 25 - 50 ml IV UD PRN; Protocol PRN Reason: Hypoglycemia Protocol Stop: 11/15/19 21:44 [facility]) [facility] Stop: 11/16/19 08:59 Glucagon (Glucagen) 1 mg SQ UD PRN; Protocol PRN Reason: Hypoglycemia Protocol Stop: 11/15/19 21:44 Glucose (Glucose 40%) 15 - 30 gm PO UD PRN; Protocol PRN Reason: Hypoglycemia Protocol Stop: 11/15/19 21:44 Glucose (Dex4 Glucose) 4 - 8 tabs PO UD PRN; Protocol PRN Reason: Hypoglycemia Protocol Stop: 11/15/19 21:44 Hydrochlorothiazide (Hctz) 25 mg PO [facility] Stop: 11/16/19 08:59 Last Admin: 10/21/19 08:19 Dose: 25 mg Documented by: Hydroxyzine HCl (Vistaril) 50 mg PO HS PRN PRN Reason: Insomnia Stop: 11/15/19 20:20 Insulin Aspart (Novolog Flexpen) [address] [facility] Stop: 11/15/19 21:59 Last Admin: 10/21/19 08:39 Dose: 18 units Documented by: Insulin Glargine (Lantus) [address] [facility]; Protocol Stop: 11/20/19 08:59 Last Admin: 10/21/19 08:40 Dose: 70 units Documented by: Lisinopril (Zestril) [address] [facility] Stop: 11/16/19 08:59 Last Admin: 10/21/19 08:19 Dose: 40 mg Documented by: Magnesium Hydroxide (Milk Of Magnesia) 30 ml PO DAILY PRN PRN Reason: Constipation Stop: 11/15/19 20:01 Metformin HCl (Glucophage Er) [address] [facility] Stop: 11/15/19 20:59 Last Admin: 10/16/19 22:15 Dose: Not Given Documented by: Methimazole (Tapazole) [address] [facility] Stop: 11/16/19 08:59 Last Admin: 10/21/19 08:20 Dose: 10 mg Documented by: Miscellaneous (Carbohydrates For Hypoglycemia) 15 - 30 gm PO UD PRN PRN Reason: Hypoglycemia Treatment Stop: 11/15/19 21:44 Miscellaneous Information (Consult Glycemic Management Pharmacy) 1 ea N/A UD PRN PRN Reason: Consult Stop: 11/15/19 21:33 Vascepa~~Non- Formulary Patient's Own Med [address] [facility] Stop: 11/16/19 20:59 Last Admin: 10/21/19 08:41 Dose: 1 ea Documented by: Olanzapine (Zyprexa) [address] [facility] Stop: 11/15/19 21:59 Last Admin: 10/20/19 21:27 Dose: 25 mg Documented by: Sodium Chloride ([place] Nasal) 1 - 2 sprays NA PRN PRN PRN Reason: Nasal Dryness/Congestion Stop: 11/15/19 20:01 Venlafaxine HCl (Effexor Extended Release) [address] [facility] Stop: 11/16/19 08:59 Last Admin: 10/21/19 08:19 Dose: 75 mg Documented by: Mental Health & Subst Abuse Tx Psychiatrist Name of Psychiatrist: Dr. Basilio Psychiatrist's Therapist Name of Therapist: Aminta Therapist's Date of Therapist Appointment: 11/08/19 Time of Therapist Appointment: 11:00am Data Entry Manager Name of Data Entry Manager: Sravanthi MOREL Phone Number for Data Entry Manager: [phone] Post Discharge Appointments Primary Care Physician Name Of Family Doctor: Dr. Rogers Partial or Psych Rehab Name of Partial or Psych Rehab: [facility] Phone Number of Partial or Psych Rehab: [phone] Other #1: Name of Aftercare Appointment: Hannah Ta Phone Number of Aftercare Appointment: [phone]
[2019-10-21] MEDS: BENZTROPINE MESYLATE 1 MG TAB PO SCH (20:51)
[2019-10-21] MEDS: OLANZapine 5 MG TABLET PO SCH (20:52)
[2019-10-22] MEDS ORDERED: INSULIN ASPART 100 UNITS/ML 3 ML PEN SC SCH
[2019-10-22] MEDS: INSULIN ASPART 100 UNITS/ML 3 ML PEN SC SCH ×6 (00:17→21:06)
[2019-10-22] MEDS: VENLAFAXINE HCL XR 75 MG CAPXR PO SCH (07:41)
[2019-10-22] MEDS: ATORVASTATIN 40 MG TAB PO SCH (07:41)
[2019-10-22] MEDS: hydroCHLOROthiazide 25 MG TAB PO SCH (07:41)
[2019-10-22] MEDS: ASPIRIN 81 MG ECTAB PO SCH (07:41)
[2019-10-22] MEDS: CYANOCOBALAMIN 500 MCG TABLET (VITAMIN B-12) PO SCH (07:42)
[2019-10-22] MEDS: methIMAzole 5 MG TABLET PO SCH (07:42)
[2019-10-22] MEDS: VASCEPA PO SCH ×2 (07:42→21:23)
[2019-10-22] MEDS: lisinopriL 40 MG TAB PO SCH (07:43)
[2019-10-22] MEDS: INSULIN GLARGINE 100 UNIT/ML VIAL SC SCH ×2 (09:13→21:21)
--- NOTE | 2019-10-22 11:07 | Psychiatric Progress Note ---
Date of Service October 22, 2019 Impression / Recommendations Impression 54-year-old woman with schizoaffective disorder who presented with delusions and suicidal ideation. She continues to harbor a fairly well systematized delusional belief, but is slightly less focused on it today. Unfortunately, this is led to her refusing medications at times, which exacerbated presenting psychotic and symptoms, as well as her multiple medical problems. She has demonstrated some improvement, and we will continue to engage her in reality testing and coping skills. Pt encouraged today to begin working on her safety plan. Steps have begun to coordinate discharge plans with numerous outpatient supports: [facility], Skills, case management, and family. Discharge tomorrow is anticipated at this time. (1) Schizoaffective disorder, depressive type: 10/17 - Continue voluntary inpatient treatment. Continue olanzapine, benztropine, and venlafaxine XR at home doses, as patient has been nonadherent and skipping dose, so has not likely been receiving full effect of her medications. She reports good tolerance of these medications, and this regimen has worked for her in the past. -Fasting labs for monitoring on an atypical antipsychotic: Hemoglobin A1c on admission was 10.0, with an estimated average glucose of 240. FLP results reviewed from 07/09/2019; triglycerides elevated at 319, remainder of values within normal limits. -Coordinate care with the patient's BCM, Mercedes Bullock, and contact [facility] [place] to coordinate with Dr. Guillen and ensure she is assigned to a new therapist. -Encourage group attendance and participation. -Suicide checks for safety. Work on healthy coping skills and discharge safety plan. Reality testing as tolerated. -Support options for limiting her access to large amounts of pills, especially when more depressed and having suicidal thoughts, given her history of multiple suicide attempts by overdose. 10/18 -We are continuing to provide gentle reality testing. The patient continues to harbor delusional beliefs and continues to tell us that she is afraid to take certain medications because she is (at the age of 54). -She reports that she has not been hearing auditory hallucinations recently and her thoughts of suicide have been less. While she does tell us that she is able to contract for her own personal safety in the hospital and will not make attempts to harm herself here, she says that she "cannot be sure" what she might do when she leaves the hospital, particularly if she begins to hear the voices again. -Today, the patient tells me that she feels she is tolerating her medications well and that they are "helping." 10/19 - Continue current medications and treatment plan. Assist patient to identify ways to reality test and reassure her regarding need to take medication s daily for psychiatric and health issues. -Family meeting held with mother. 10/20 - Continue current treatment plan 10/21 - Continue treatment plan as outlined above - pt continues to improve and has been more compliant with her home medication regimen over the last 1-2 days - Meeting with outpatient caser shoe parts this afternoon - Social work team to attempt to coordinate with [facility] regarding medication management, to explore [place] options if necessary 10/22 - Continue treatment plan as outlined above - patient has been tolerating medications with improved compliance (2) Diabetes mellitus type 2, uncontrolled: Continue home dose of metformin, insulin, diabetic diet, and consult glycemic control pharmacist. 10/18 -The patient's blood sugars have all been running high, with the lowest being recently and 115. The patient says that she recognizes her need to adhere with her diabetic regimen and indicates that she intends to cooperate with this fully in this regard. 10/22 - Recommending follow-up with PCP regarding poor glycemic control and reported peripheral neuropathy (3) Dyslipidemia: Continue home dose of Lipitor (4) Hypertension: Continue home dose of lisinopril 10/18 -The issue today has been that the patient has been nonadherent with her psychiatric medications. Her blood pressures were initially quite high, but most recently, while still elevated, was 159/92. -The patient was able to accept my strong advice today to take her antihypertensive medications and she does indicate that she understands that not taking them represents a risk of stroke, heart attack, and kidney failure. -The patient did take her antihypertensive medications today. Inventory Assets Strengths: Intelligent. Stable living environment. Insight into the fact that she needs treatment for a mental illness. Needs: [place] from delusional beliefs that are preventing her from taking her medications. Resolution of command auditory hallucinations. Resolution of active thoughts of suicide. Multiple interests, including travel and world history. Risk Factors Assessment Male: No : Yes Do You Have Access To A Gun?: No Health Problems: Yes Mental Health Diagnoses: Yes Substance Use Disorders: No Previous Attempt: Yes Previous Attempt; Highly Lethal: Yes Previous Attempt; Planned: Yes Previous Attempt; Didn't Tell Anyone: Yes Family History of Suicide: No Previous Psychiatric Hospitalization: Yes Hopelessness: Yes Smoker: No Protective Factors Assessment Zoroastrianism Beliefs: No : No Responsible for Young Children: No Employed: No Stable Relationships: Yes Supportive Family: Yes Good Rapport with Provider: Yes Absence of Any Risk Factors Above: No Interval History Identifying Information AMADO OLSON is a 54-year-old F who currently lives in [place] at the [facility] personal prison, has a history of schizoaffective disorder, and was admitted on 10/16/19 19:59 on a 201 voluntary commitment for depression, psychosis, and suicidal ideation with plan to overdose on pills. Chief Complaint "Um...I'm pretty good. I am feeling a little lower today, but I think I am leaving tomorrow." Review of Systems Notes Constitutional: denied Cardiovascular: denied Respiratory: denied Gastrointestinal: denied Neurological: denied Psychiatric: denies symptoms other than stated above Total of at least 10 systems reviewed, pertinent positives as above and in HPI. Sleep Information Total Hours of Sleep: 7 Sleep Comments: pt on q-15 minute checks Meal Information Percent Meal Consumed - Breakfast: 80 Percent Meal Consumed - Lunch: 100 Percent Meal Consumed - Dinner: 100 Nutrition Comment: per meal record Subjective Subjective Patient was seen & assessed and interval progress reviewed with nursing and social work. Staff report the patient has been attending group programming regularly. It was confirmed with the [facility], that the patient is given her scheduled medications by staff. Patient also met with her caser shoe parts yesterday afternoon. Attempts will be made today to coordinate discharge planning, with possibility of discharge as early as tomorrow. Patient was seen today to assess progress since admission. She states that she is feeling "pretty good", though admits that she is "a little lower today. I did say probably about 50%." Client reported drop in mood today, patient states "I am feeling as good as I will probably get here, I can continue to improve on the outside." We discussed ways to encourage utilization of coping strategies on an outpatient basis. Patient is able to verbalize that she feels discharge tomorrow would be reasonable, and feels as though she will be able to return to utilizing her outpatient supports at this time. Patient denies active suicidal ideation on the unit, though does admit "those thoughts are pain in the neck, but I do what I can to overcome them." Patient states that she is hopeful she will soon be able to have an individual therapist, and feels this might be helpful for her in overcoming these thoughts. She continues to report she is tolerating medications, stating "I feel good where I met, the medications obviously work. They help me feel neutral, not too low but not too high either." Patient denies other specific needs or concerns at this time. Physical Exam Psychiatric Orientation: alert, oriented x 3 and cooperative (And pleasant) Apperance: appropriately dressed (Casually, wearing jeans and a sweater), appropriately groomed and appeared stated age Eye Contact: good eye contact Motor Behavior: steady gait and station and no abnormal motor movements Speech: normal rate/rhythm/volume of speech Affect: + blunted affect (Appearing subdued, though not overtly depressed) Mood: + depressed mood ("I am feeling a little lower today, about 50%") Thought Process: goal directed thought process, clear/coherent thought process and thought association intact Thought Content: reality based without delusions; no hopelessness and no worthlessness Suicidal Thoughts: denies suicidal thoughts and denies suicidal intent Homicidal Thoughts: denies homicidal thoughts Hallucinations: no auditory hallucinations and no visual hallucinations Cognition: attention grossly intact and language grossly intact Insight: + fair insight Judgement: + fair judgement Vital Signs (Past 24 Hours) Last Vital Signs Temp 36.7 C 10/22/19 06:39 Pulse 84 10/22/19 06:41 Resp 18 10/22/19 06:39 BP 129/79 10/22/19 06:41 Pulse Ox 98 10/16/19 19:50 Results & Data ([facility]) Laboratory Results Laboratory Results - last 24 hr 10/21/19 10/21/19 10/21/19 12:11 16:29 20:29 POC Glucose 202 H 251 H 242 H 10/22/19 10/22/19 10/22/19 00:07 03:56 07:20 POC Glucose 191 H 216 H 185 H Current Inpatient Medications Current Inpatient Medications: Current Inpatient Medications Acetaminophen (Tylenol) 650 mg PO Q4H PRN PRN Reason: Headache or Minor Fever Stop: 11/15/19 20:01 Al Hydrox/Mg Hydrox/Simethicone (Maalox) 30 ml PO Q4H PRN PRN Reason: GI Upset Stop: 11/15/19 20:01 Aspirin (Ecotrin Ectab) 81 mg PO QAM [facility] Stop: 11/16/19 08:59 Last Admin: 10/22/19 07:41 Dose: 81 mg Documented by: Atorvastatin Calcium (Lipitor) 80 mg PO QAM [facility] Stop: 11/16/19 08:59 Last Admin: 10/22/19 07:41 Dose: 80 mg Documented by: Benztropine Mesylate (Cogentin) 1 mg PO HS ANNAMARIA Stop: 11/15/19 21:59 Last Admin: 10/21/19 20:51 Dose: 1 mg Documented by: Bismuth Subsalicylate (Kaopectate) 15 ml PO PRN PRN PRN Reason: Loose Stool Stop: 11/15/19 20:01 Cyanocobalamin (Vitamin B-12) 1,000 mcg PO QAM [facility] Stop: 11/16/19 08:59 Last Admin: 10/22/19 07:42 Dose: 1,000 mcg Documented by: Dextrose (Dextrose 50%) 25 - 50 ml IV UD PRN; Protocol PRN Reason: Hypoglycemia Protocol Stop: 11/15/19 21:44 Glipizide (Glucotrol) 10 mg PO BIDM [facility] Stop: 11/16/19 08:59 Glucagon (Glucagen) 1 mg SQ UD PRN; Protocol PRN Reason: Hypoglycemia Protocol Stop: 11/15/19 21:44 Glucose (Glucose 40%) 15 - 30 gm PO UD PRN; Protocol PRN Reason: Hypoglycemia Protocol Stop: 11/15/19 21:44 Glucose (Dex4 Glucose) 4 - 8 tabs PO UD PRN; Protocol PRN Reason: Hypoglycemia Protocol Stop: 11/15/19 21:44 [facility]chlorothiaz[facility] ([facility]) [facility] [place] [facility] Stop: 11/16/19 08:59 Last Admin: 10/22/19 07:41 Dose: 25 mg Documented by: Hydroxyzine HCl (Vistaril) 50 mg PO HS PRN PRN Reason: Insomnia Stop: 11/15/19 20:20 Insulin Aspart (Novolog Flexpen) 0 units SC ACHS [facility] Stop: 11/15/19 21:59 Last Admin: 10/22/19 09:09 Dose: 23 units Documented by: Insulin Glargine (Lantus) 70 units SC BID [facility]; Protocol Stop: 11/20/19 08:59 Last Admin: 10/22/19 09:13 Dose: 70 units Documented by: Lisinopril (Zestril) 40 mg PO QAM [facility] Stop: 11/16/19 08:59 Last Admin: 10/22/19 07:43 Dose: 40 mg Documented by: Magnesium Hydroxide (Milk Of Magnesia) 30 ml PO DAILY PRN PRN Reason: Constipation Stop: 11/15/19 20:01 Metformin HCl (Glucophage Er) 500 mg PO BID [facility] Stop: 11/15/19 20:59 Last Admin: 10/16/19 22:15 Dose: Not Given Documented by: Methimazole (Tapazole) 10 mg PO DAILY [facility] Stop: 11/16/19 08:59 Last Admin: 10/22/19 07:42 Dose: 10 mg Documented by: Miscellaneous (Carbohydrates For Hypoglycemia) 15 - 30 gm PO UD PRN PRN Reason: Hypoglycemia Treatment Stop: 11/15/19 21:44 Miscellaneous Information (Consult Glycemic Management Pharmacy) 1 ea N/A UD PRN PRN Reason: Consult Stop: 11/15/19 21:33 Vascepa~~Non- Formulary Patient's Own Med 1 ea PO BID ANNAMARIA Stop: 11/16/19 20:59 Last Admin: 10/22/19 07:42 Dose: 1 ea Documented by: Olanzapine (Zyprexa) 25 mg PO HS [facility] Stop: 11/15/19 21:59 Last Admin: 10/21/19 20:52 Dose: 25 mg Documented by: Sodium Chloride ([place] Nasal) 1 - 2 sprays NA PRN PRN PRN Reason: Nasal Dryness/Congestion Stop: 11/15/19 20:01 Venlafaxine HCl (Effexor Extended Release) 75 mg PO QAM [facility] Stop: 11/16/19 08:59 Last Admin: 10/22/19 07:41 Dose: 75 mg Documented by: Mental Health & Subst Abuse Tx Psychiatrist Name of Psychiatrist: Dr. Basilio Psychiatrist's Therapist Name of Therapist: Aminta Therapist's Date of Therapist Appointment: 11/08/19 Time of Therapist Appointment: 11:00am Still Operator Gin Name of Still Operator Gin: Sravanthi MOREL Phone Number for Still Operator Gin: [phone] Post Discharge Appointments Primary Care Physician Name Of Family Doctor: Dr. Rogers Partial or Psych Rehab Name of Partial or Psych Rehab: [facility] Phone Number of Partial or Psych Rehab: [phone] Other #1: Name of Aftercare Appointment: Hannah Ta Phone Number of Aftercare Appointment: [phone]
--- NOTE | 2019-10-22 12:40 | Pharmacy Report ---
Pharmacy Glycemic Short Note 2 - Date of Service October 22, 2019 - Glycemic Short BSG Results (Last 24 hours): 10/21/19 10/21/19 10/22/19 16:29 20:29 00:07 POC Glucose 251 H 242 H 191 H 10/22/19 10/22/19 10/22/19 03:56 07:20 12:35 POC Glucose 216 H 185 H 150 H ASSESSMENT: 10/22: * Patient received total of 273 units of insulin yesterday, of which 140 were basal insulin * Fasting BSG 185 mg/dL - continue same basal insulin * BSGs much improved today - had tightened to CR of 5, continue CR of 2 10/21: * Patient received total of 274 units of insulin yesterday, of which 145 units were basal insulin and 129 were bolus insulin * BSGs yesterday rising [phone] mg/dL - per nursing notes, patient eating ice cream around hs time (could be reasoning for elevated BSGs at that time) * Aiming towards 50/50 split with basal and bolus insulin. Continue to tighten CR this morning. PLAN FOR INPATIENT GLYCEMIC CONTROL: * Hold outpatient oral diabetes medications * Basal insulin * Lantus 70 units BID * Bolus insulin - tighten CF * NovoLog per scale ACHS or Q6hrs while NPO * Goal Range: Low 110 mg/dL - High 140 mg/dL * Correction Factor: 5 mg/dL/unit * Nutritional / Prandial insulin per carb ratio of 1 unit per 2 grams CHO consumed
[2019-10-22] MEDS: BENZTROPINE MESYLATE 1 MG TAB PO SCH (21:26)
[2019-10-22] MEDS: OLANZapine 5 MG TABLET PO SCH (21:27)
[2019-10-23] MEDS ORDERED: INSULIN ASPART 100 UNITS/ML 3 ML PEN SC SCH
[2019-10-23] MEDS: INSULIN ASPART 100 UNITS/ML 3 ML PEN SC SCH ×2 (00:12→09:02)
--- NOTE | 2019-10-23 08:21 | Discharge Summary ---
Date of Service October 23, 2019 History of Present Illness Patient presented to the ER yesterday, 10/16/2019, with her the general administrator of the [facility], a personal prison where she resides, reporting worsening mood, command auditory hallucinations to kill herself, and thoughts to overdose on medication. She reported chronic paranoia and thoughts that somebody is out to kill her and her daughter, auditory hallucination of voices that make vulgar comments and were telling her to commit suicide by overdose. She reported history of multiple suicide attempts by overdose, and had previously received treatment at [facility], but since they are closing had not been transferred to a new clinician. She endorsed worthlessness, hopelessness, increased isolation, paranoia, decreased appetite, poor sleep, and difficulty getting out of bed and doing her ADLs. Admission labs were notable for WBC 13.09, glucose 264, hemoglobin A1c of 10, alkaline phosphatase of 179, albumin of 3.2, normal TSH, UA was cloudy with elevated specific gravity, 1+ protein and glucose, trace ketones, > 30 epithelial cells, and 1+ bacteria; drug screen was negative. She agreed to voluntary inpatient treatment, and on admission was continued on her home psychotropics including olanzapine 25 mg at bedtime, venlafaxine XR 75 mg daily, and benztropine 1 mg at bedtime. On my assessment, she reports she had been living in [place] for years, but moved to [place] and was living there for about 9 years at [facility], before returning to [place] in 12/2018. Mood worsened in the fall, and she was hospitalized at [facility] in 05/2019. She denies triggers, but states mood and paranoia worsened, she thought people hated her, wanted to harm her, "were going to burn my guts, burn my body," and AH of voices have been worsening, telling her to hurt herself. She reports trigger was a 5 or 10 years ago, "I can't remember," when she lived in [place]. She thinks she was 2 months along when she had the miscarriage, and says she "gets very depressed about it, and I worry about her, I feel like in these places, she's being exposed to inappropriate conditions, being burnt with propane, being burnt with fire." She says her daughter is ", she's gone, but her spirit is with me, I hear her praying a lot." She thinks her miscarried baby is also "exposed to medication" and that it is bad for her, so skips her medications at times, "I worry about my baby, worry that it will affect it." Estimates she's misses "a couple of doses" of olanzapine and venlafaxine, but can't be more specific, stating she "skips them when they feel too strong for me and the baby." States she is post-m enopausal for years. Denies any recent medication changes. She denies any history of james, and denies symptoms of PTSD, OCD, and eating disorder. She states her goals of treatment are to work on coping skills and process grief from her miscarriage. She believes her current medication regimen works well for her, and is agreeable to working on improving compliance. Physical Exam Psychiatric Orientation: alert, oriented x 3 and cooperative Apperance: appropriately dressed, appropriately groomed and appeared stated age Eye Contact: good eye contact Motor Behavior: steady gait and station and no abnormal motor movements AIMS 0 Speech: normal rate/rhythm/volume of speech Affect: euthymic affect and mood congruent with affect "Okay" Thought Process: goal directed thought process and linear/logical thought process Thought Content: reality based without delusions Suicidal Thoughts: denies suicidal thoughts Homicidal Thoughts: denies homicidal thoughts Hallucinations: no auditory hallucinations and no visual hallucinations Cognition: recent memory grossly intact, attention grossly intact and language grossly intact Estimated Intelligence: consistent with education level Insight: + fair insight Judgement: + fair judgement Vital Signs (Past 24 Hours) Last Vital Signs Temp 36.6 C 10/23/19 06:36 Pulse 87 10/23/19 06:39 Resp 18 10/23/19 06:36 BP 141/95 H 10/23/19 06:39 Pulse Ox 98 10/16/19 19:50 Principal Diagnosis Schizoaffective disorder, bipolar type Psychiatric Data The patient was hospitalized for 7 days. She was continued on her home psychotropic medications, olanzapine and venlafaxine XR, as she reported that they have been beneficial for her and are well-tolerated. She reported she had not been taking them regularly at home, in part due to delusions that the medications would "harm her baby," which she related to history of and miscarriage an unclear number of years ago. She had partial insight, was able to state that she knows she is not currently , but continued to struggle with taking medications as prescribed due to these delusional fears. She often responded well to staff education and support, and would agree to take the medications later in the day. She was initially preoccupied with things that had happened decades ago, including past hospitalizations when she was psychotic and agitated. Her auditory hallucinations and delusions improved throughout her hospitalization, and she was much less focused on them. She was increasingly able to engage in treatment and focus on the present. She utilized the patient workbook and found it helpful, and attended and participated in groups and therapy. She struggled with depressive symptoms initially, but mood improved throughout the course of treatment. Sleep and appetite were observed to be good, and she attended the ADLs independently. She had visits from her mother, and a family meeting with her and the social work nurse on 10/19/2019. Her mother was very supportive, was able to engage in reality testing with the patient (around her delusions, as the patient stated 1 of her goals was to get and have children), and also gave her positive feedback for improved insight into her symptoms. She had a meeting with her outpatient window caser on 10/21/2021 for discharge planning, and confirmed that she is active with psych rehab and skills. She did report that medications were helpful, and despite her initial reluctance to take them daily as prescribed, was taking them regularly by the end of her hospitalization. She consistently denied thoughts of harming herself and others throughout her stay, was not aggressive or agitated, and was appropriate in her interactions with staff and peers. Day of Discharge Assessment Staff report the patient willingly accepted medications as prescribed, although required staff support and education regarding her insulin. She spoke with friends from [employer] and was invited to join a Bible study which she agreed to do. She talked about ways to increase her socialization, and she recognizes this is helpful for her. She has been attending and participating in all unit programming and has been pleasant and appropriate in her interactions with others. She rated her mood a 5/10 and reported feeling "hopeful" and community meeting last evening. She is not voicing delusional thinking, and discharge plans were coordinated with her personal prison, [place] [facility]. On my assessment, she states that her mood is "okay, probably as good as I'm going to get." She denies auditory hallucinations currently, and notes that they are much decreased from admission but still sometimes occur. She is no longer concerned that she is or that taking her medications will harm an unborn child, and states she knows that she needs to take her medications, and does not think she will have a problem taking them regularly at home. The staff at her personal prison distribute medications to her daily. She feels ready to go home, although notes she has some anxiety about relapsing, as she states it is harder for her to use her healthy coping skills when she is outside of the hospital. She is able to list the coping skills she finds helpful, her various supports, and her safety plan. She is looking forward to seeing her friends at her personal prison, her friend group and Melyssa, from [employer], and spending time with her mother and daughter. She states that nights are her most challenging time, and her plan to address that is to take her bedtime medications and talk with [facility] staff for reassurance. She is thankful for her care here and says that this has been a good experience. Transition of Care Transition Of Care Record: was reviewed with the patient Advance Directives Advance Directives Information Provided: Yes Advance Directives: No Mental Health Advance Directive: No Advance Directives on File: No Living Will: No Power of Outside Maintenance Worker: No Advance Directives Reason:: Declines as Mental Health Visit. Risk Factors Assessment Risk factors were mitigated by admission to the inpatient unit, use of medications to target mood and psychotic symptoms, education about her diagnosis and the treatment recommendations, involving her in groups and therapy, working on healthy coping skills and a discharge safety plan, family meeting with her mother and involving her outpatient window caser in treatment, coordinating care with staff at her personal prison, and referring her for outpatient therapy and psychiatric care. She has demonstrated improvement in mood and psychotic symptoms, is taking medications as prescribed, has been interacting appropriately with others, consistently denying thoughts of harming herself or anyone else, and is less focused on delusions and hallucinations. She is eating and sleeping well and tending to her ADLs independently. She has been referred for additional outpatient supports and treatment, and care has been coordinated with her personal prison staff. She is requesting discharge, and that she is no longer at acute risk of harm to herself, can be managed as an outpatient at this time. Male: No : Yes Do You Have Access To A Gun?: No Health Problems: Yes Mental Health Diagnoses: Yes Substance Use Disorders: No Previous Attempt: Yes Previous Attempt; Highly Lethal: Yes Previous Attempt; Planned: Yes Previous Attempt; Didn't Tell Anyone: Yes Family History of Suicide: No Previous Psychiatric Hospitalization: Yes Hopelessness: Yes Smoker: No Protective Factors Assessment Rastafarian Beliefs: No : No Responsible for Young Children: No Employed: No Stable Relationships: Yes Supportive Family: Yes Good Rapport with Provider: Yes Absence of Any Risk Factors Above: No Tobacco Cessation at Discharge Tobacco Cessation Medication Prescribed at Discharge: Not Applicable/Non-Smoker Total Time Total Time Spent: Greater Than 30 Minutes Total Time Includes: Examination of the patient, Discharge Planning and Medication Reconciliation Discharge Data Lab Results 10/16/19 10/16/19 10/16/19 15:32 15:32 15:56 WBC 13.09 H RBC 5.09 Hgb 12.0 Hct 37.6 MCV 73.9 L MCH 23.6 L MCHC 31.9 L RDW Std Deviation 42.9 RDW Coeff of Abel 15.8 H Plt Count 382 MPV 8.3 Immature Gran % (Auto) 0.3 Neut % (Auto) 60.2 Lymph % (Auto) 31.1 Cowley % (Auto) 6.6 Eos % (Auto) 1.4 Baso % (Auto) 0.4 Immature Gran # (Auto) 0.04 H Neut # (Auto) 7.88 H Lymph # (Auto) 4.07 H Cowley # (Auto) 0.87 H Eos # (Auto) 0.18 Baso # (Auto) 0.05 Sodium Potassium Chloride Carbon Dioxide Anion Gap BUN Creatinine Est Cr Clr Drug Dosing Est GFR ( Amer) Est GFR (Non-Af Amer) BUN/Creatinine Ratio Glucose POC Glucose Estimat Average Glucose Hemoglobin A1c Calcium Total Bilirubin AST ALT Alkaline Phosphatase Total Protein Albumin Globulin Albumin/Globulin Ratio TSH Urine Color Dark Yellow Urine Appearance Cloudy A Urine pH 5.0 Ur Specific Grampian 1.042 H Urine Protein 1+ H Urine Glucose (UA) 1+ H Urine Ketones Trace H Urine Blood Negative Urine Nitrite Negative Urine Bilirubin Negative Urine Urobilinogen Negative Ur Leukocyte Esterase Negative Urine WBC (Auto) >30 H Urine RBC (Auto) 0-4 U Hyaline Cast (Auto) 5-10 H U Epithel Cells (Auto) >30 H Urine Bacteria (Auto) 1+ H Urine Crystals Not Reportable Calcium Oxalate Crystal Present A Salicylates Urine Opiates Screen Neg Ur Methadone, Qual Neg Acetaminophen Urine Barbiturates Neg Ur Phencyclidine (PCP) Neg U Amphetamin/Meth Scrn Neg MDMA (Ecstasy) Screen Neg U Benzodiazepines Scrn Neg Ur Cocaine Metabolite Neg U Marijuana (THC) Screen Neg Ethyl Alcohol mg/dL 10/16/19 10/16/19 10/16/19 15:56 15:56 15:56 WBC RBC Hgb Hct MCV MCH MCHC RDW Std Deviation RDW Coeff of Abel Plt Count MPV Immature Gran % (Auto) Neut % (Auto) Lymph % (Auto) Cowley % (Auto) Eos % (Auto) Baso % (Auto) Immature Gran # (Auto) Neut # (Auto) Lymph # (Auto) Cowley # (Auto) Eos # (Auto) Baso # (Auto) Sodium 136 Potassium 3.8 Chloride 104 Carbon Dioxide 25 Anion Gap 7.0 BUN 15 Creatinine 0.84 Est Cr Clr Drug Dosing 82.2 Est GFR ( Amer) 91.3 Est GFR (Non-Af Amer) 78.8 BUN/Creatinine Ratio 17.4 Glucose 264 H POC Glucose Estimat Average Glucose Hemoglobin A1c Calcium 9.0 Total Bilirubin 0.3 AST 11 L ALT 29 Alkaline Phosphatase 179 H Total Protein 7.2 Albumin 3.2 L Globulin 4.0 Albumin/Globulin Ratio 0.8 L TSH 0.793 Urine Color Urine Appearance Urine pH Ur Specific Grampian Urine Protein Urine Glucose (UA) Urine Ketones Urine Blood Urine Nitrite Urine Bilirubin Urine Urobilinogen Ur Leukocyte Esterase Urine WBC (Auto) Urine RBC (Auto) U Hyaline Cast (Auto) U Epithel Cells (Auto) Urine Bacteria (Auto) Urine Crystals Calcium Oxalate Crystal Salicylates < 1.7 L Urine Opiates Screen Ur Methadone, Qual Acetaminophen < 2 L Urine Barbiturates Ur Phencyclidine (PCP) U Amphetamin/Meth Scrn MDMA (Ecstasy) Screen U Benzodiazepines Scrn Ur Cocaine Metabolite U Marijuana (THC) Screen Ethyl Alcohol mg/dL < 3.0 10/16/19 10/16/19 10/16/19 15:56 20:57 20:59 WBC RBC Hgb Hct MCV MCH MCHC RDW Std Deviation RDW Coeff of Abel Plt Count MPV Immature Gran % (Auto) Neut % (Auto) Lymph % (Auto) Cowley % (Auto) Eos % (Auto) Baso % (Auto) Immature Gran # (Auto) Neut # (Auto) Lymph # (Auto) Cowley # (Auto) Eos # (Auto) Baso # (Auto) Sodium Potassium Chloride Carbon Dioxide Anion Gap BUN Creatinine Est Cr Clr Drug Dosing Est GFR ( Amer) Est GFR (Non-Af Amer) BUN/Creatinine Ratio Glucose POC Glucose 323 H* 321 H* Estimat Average Glucose 240 Hemoglobin A1c 10.0 H Calcium Total Bilirubin AST ALT Alkaline Phosphatase Total Protein Albumin Globulin Albumin/Globulin Ratio TSH Urine Color Urine Appearance Urine pH Ur Specific Grampian Urine Protein Urine Glucose (UA) Urine Ketones Urine Blood Urine Nitrite Urine Bilirubin Urine Urobilinogen Ur Leukocyte Esterase Urine WBC (Auto) Urine RBC (Auto) U Hyaline Cast (Auto) U Epithel Cells (Auto) Urine Bacteria (Auto) Urine Crystals Calcium Oxalate Crystal Salicylates Urine Opiates Screen Ur Methadone, Qual Acetaminophen Urine Barbiturates Ur Phencyclidine (PCP) U Amphetamin/Meth Scrn MDMA (Ecstasy) Screen U Benzodiazepines Scrn Ur Cocaine Metabolite U Marijuana (THC) Screen Ethyl Alcohol mg/dL 10/16/19 10/17/19 10/17/19 23:57 03:59 07:48 WBC RBC Hgb Hct MCV MCH MCHC RDW Std Deviation RDW Coeff of Abel Plt Count MPV Immature Gran % (Auto) Neut % (Auto) Lymph % (Auto) Cowley % (Auto) Eos % (Auto) Baso % (Auto) Immature Gran # (Auto) Neut # (Auto) Lymph # (Auto) Cowley # (Auto) Eos # (Auto) Baso # (Auto) Sodium Potassium Chloride Carbon Dioxide Anion Gap BUN Creatinine Est Cr Clr Drug Dosing Est GFR ( Amer) Est GFR (Non-Af Amer) BUN/Creatinine Ratio Glucose POC Glucose 266 H 264 H 239 H Estimat Average Glucose Hemoglobin A1c Calcium Total Bilirubin AST ALT Alkaline Phosphatase Total Protein Albumin Globulin Albumin/Globulin Ratio TSH Urine Color Urine Appearance Urine pH Ur Specific Grampian Urine Protein Urine Glucose (UA) Urine Ketones Urine Blood Urine Nitrite Urine Bilirubin Urine Urobilinogen Ur Leukocyte Esterase Urine WBC (Auto) Urine RBC (Auto) U Hyaline Cast (Auto) U Epithel Cells (Auto) Urine Bacteria (Auto) Urine Crystals Calcium Oxalate Crystal Salicylates Urine Opiates Screen Ur Methadone, Qual Acetaminophen Urine Barbiturates Ur Phencyclidine (PCP) U Amphetamin/Meth Scrn MDMA (Ecstasy) Screen U Benzodiazepines Scrn Ur Cocaine Metabolite U Marijuana (THC) Screen Ethyl Alcohol mg/dL 10/17/19 10/17/19 10/17/19 12:33 16:32 20:18 WBC RBC Hgb Hct MCV MCH MCHC RDW Std Deviation RDW Coeff of Abel Plt Count MPV Immature Gran % (Auto) Neut % (Auto) Lymph % (Auto) Cowley % (Auto) Eos % (Auto) Baso % (Auto) Immature Gran # (Auto) Neut # (Auto) Lymph # (Auto) Cowley # (Auto) Eos # (Auto) Baso # (Auto) Sodium Potassium Chloride Carbon Dioxide Anion Gap BUN Creatinine Est Cr Clr Drug Dosing Est GFR ( Amer) Est GFR (Non-Af Amer) BUN/Creatinine Ratio Glucose POC Glucose 227 H 227 H 115 H Estimat Average Glucose Hemoglobin A1c Calcium Total Bilirubin AST ALT Alkaline Phosphatase Total Protein Albumin Globulin Albumin/Globulin Ratio TSH Urine Color Urine Appearance Urine pH Ur Specific Grampian Urine Protein Urine Glucose (UA) Urine Ketones Urine Blood Urine Nitrite Urine Bilirubin Urine Urobilinogen Ur Leukocyte Esterase Urine WBC (Auto) Urine RBC (Auto) U Hyaline Cast (Auto) U Epithel Cells (Auto) Urine Bacteria (Auto) Urine Crystals Calcium Oxalate Crystal Salicylates Urine Opiates Screen Ur Methadone, Qual Acetaminophen Urine Barbiturates Ur Phencyclidine (PCP) U Amphetamin/Meth Scrn MDMA (Ecstasy) Screen U Benzodiazepines Scrn Ur Cocaine Metabolite U Marijuana (THC) Screen Ethyl Alcohol mg/dL 10/18/19 10/18/19 10/18/19 07:37 12:25 17:03 WBC RBC Hgb Hct MCV MCH MCHC RDW Std Deviation RDW Coeff of Abel Plt Count MPV Immature Gran % (Auto) Neut % (Auto) Lymph % (Auto) Cowley % (Auto) Eos % (Auto) Baso % (Auto) Immature Gran # (Auto) Neut # (Auto) Lymph # (Auto) Cowley # (Auto) Eos # (Auto) Baso # (Auto) Sodium Potassium Chloride Carbon Dioxide Anion Gap BUN Creatinine Est Cr Clr Drug Dosing Est GFR ( Amer) Est GFR (Non-Af Amer) BUN/Creatinine Ratio Glucose POC Glucose 192 H 197 H 146 H Estimat Average Glucose Hemoglobin A1c Calcium Total Bilirubin AST ALT Alkaline Phosphatase Total Protein Albumin Globulin Albumin/Globulin Ratio TSH Urine Color Urine Appearance Urine pH Ur Specific Grampian Urine Protein Urine Glucose (UA) Urine Ketones Urine Blood Urine Nitrite Urine Bilirubin Urine Urobilinogen Ur Leukocyte Esterase Urine WBC (Auto) Urine RBC (Auto) U Hyaline Cast (Auto) U Epithel Cells (Auto) Urine Bacteria (Auto) Urine Crystals Calcium Oxalate Crystal Salicylates Urine Opiates Screen Ur Methadone, Qual Acetaminophen Urine Barbiturates Ur Phencyclidine (PCP) U Amphetamin/Meth Scrn MDMA (Ecstasy) Screen U Benzodiazepines Scrn Ur Cocaine Metabolite U Marijuana (THC) Screen Ethyl Alcohol mg/dL 10/18/19 10/19/19 10/19/19 20:32 08:36 12:19 WBC RBC Hgb Hct MCV MCH MCHC RDW Std Deviation RDW Coeff of Abel Plt Count MPV Immature Gran % (Auto) Neut % (Auto) Lymph % (Auto) Cowley % (Auto) Eos % (Auto) Baso % (Auto) Immature Gran # (Auto) Neut # (Auto) Lymph # (Auto) Cowley # (Auto) Eos # (Auto) Baso # (Auto) Sodium Potassium Chloride Carbon Dioxide Anion Gap BUN Creatinine Est Cr Clr Drug Dosing Est GFR ( Amer) Est GFR (Non-Af Amer) BUN/Creatinine Ratio Glucose POC Glucose 265 H 172 H 183 H Estimat Average Glucose Hemoglobin A1c Calcium Total Bilirubin AST ALT Alkaline Phosphatase Total Protein Albumin Globulin Albumin/Globulin Ratio TSH Urine Color Urine Appearance Urine pH Ur Specific Grampian Urine Protein Urine Glucose (UA) Urine Ketones Urine Blood Urine Nitrite Urine Bilirubin Urine Urobilinogen Ur Leukocyte Esterase Urine WBC (Auto) Urine RBC (Auto) U Hyaline Cast (Auto) U Epithel Cells (Auto) Urine Bacteria (Auto) Urine Crystals Calcium Oxalate Crystal Salicylates Urine Opiates Screen Ur Methadone, Qual Acetaminophen Urine Barbiturates Ur Phencyclidine (PCP) U Amphetamin/Meth Scrn MDMA (Ecstasy) Screen U Benzodiazepines Scrn Ur Cocaine Metabolite U Marijuana (THC) Screen Ethyl Alcohol mg/dL 10/19/19 10/19/19 10/20/19 17:07 21:20 08:32 WBC RBC Hgb Hct MCV MCH MCHC RDW Std Deviation RDW Coeff of Abel Plt Count MPV Immature Gran % (Auto) Neut % (Auto) Lymph % (Auto) Cowley % (Auto) Eos % (Auto) Baso % (Auto) Immature Gran # (Auto) Neut # (Auto) Lymph # (Auto) Cowley # (Auto) Eos # (Auto) Baso # (Auto) Sodium Potassium Chloride Carbon Dioxide Anion Gap BUN Creatinine Est Cr Clr Drug Dosing Est GFR ( Amer) Est GFR (Non-Af Amer) BUN/Creatinine Ratio Glucose POC Glucose 168 H 284 H 162 H Estimat Average Glucose Hemoglobin A1c Calcium Total Bilirubin AST ALT Alkaline Phosphatase Total Protein Albumin Globulin Albumin/Globulin Ratio TSH Urine Color Urine Appearance Urine pH Ur Specific Grampian Urine Protein Urine Glucose (UA) Urine Ketones Urine Blood Urine Nitrite Urine Bilirubin Urine Urobilinogen Ur Leukocyte Esterase Urine WBC (Auto) Urine RBC (Auto) U Hyaline Cast (Auto) U Epithel Cells (Auto) Urine Bacteria (Auto) Urine Crystals Calcium Oxalate Crystal Salicylates Urine Opiates Screen Ur Methadone, Qual Acetaminophen Urine Barbiturates Ur Phencyclidine (PCP) U Amphetamin/Meth Scrn MDMA (Ecstasy) Screen U Benzodiazepines Scrn Ur Cocaine Metabolite U Marijuana (THC) Screen Ethyl Alcohol mg/dL 10/20/19 10/20/19 10/20/19 12:30 16:38 20:51 WBC RBC Hgb Hct MCV MCH MCHC RDW Std Deviation RDW Coeff of Abel Plt Count MPV Immature Gran % (Auto) Neut % (Auto) Lymph % (Auto) Cowley % (Auto) Eos % (Auto) Baso % (Auto) Immature Gran # (Auto) Neut # (Auto) Lymph # (Auto) Cowley # (Auto) Eos # (Auto) Baso # (Auto) Sodium Potassium Chloride Carbon Dioxide Anion Gap BUN Creatinine Est Cr Clr Drug Dosing Est GFR ( Amer) Est GFR (Non-Af Amer) BUN/Creatinine Ratio Glucose POC Glucose 202 H 264 H 367 H* Estimat Average Glucose Hemoglobin A1c Calcium Total Bilirubin AST ALT Alkaline Phosphatase Total Protein Albumin Globulin Albumin/Globulin Ratio TSH Urine Color Urine Appearance Urine pH Ur Specific Grampian Urine Protein Urine Glucose (UA) Urine Ketones Urine Blood Urine Nitrite Urine Bilirubin Urine Urobilinogen Ur Leukocyte Esterase Urine WBC (Auto) Urine RBC (Auto) U Hyaline Cast (Auto) U Epithel Cells (Auto) Urine Bacteria (Auto) Urine Crystals Calcium Oxalate Crystal Salicylates Urine Opiates Screen Ur Methadone, Qual Acetaminophen Urine Barbiturates Ur Phencyclidine (PCP) U Amphetamin/Meth Scrn MDMA (Ecstasy) Screen U Benzodiazepines Scrn Ur Cocaine Metabolite U Marijuana (THC) Screen Ethyl Alcohol mg/dL 10/20/19 10/21/19 10/21/19 20:52 00:01 08:00 WBC RBC Hgb Hct MCV MCH MCHC RDW Std Deviation RDW Coeff of Abel Plt Count MPV Immature Gran % (Auto) Neut % (Auto) Lymph % (Auto) Cowley % (Auto) Eos % (Auto) Baso % (Auto) Immature Gran # (Auto) Neut # (Auto) Lymph # (Auto) Cowley # (Auto) Eos # (Auto) Baso # (Auto) Sodium Potassium Chloride Carbon Dioxide Anion Gap BUN Creatinine Est Cr Clr Drug Dosing Est GFR ( Amer) Est GFR (Non-Af Amer) BUN/Creatinine Ratio Glucose POC Glucose 364 H* 278 H 208 H Estimat Average Glucose Hemoglobin A1c Calcium Total Bilirubin AST ALT Alkaline Phosphatase Total Protein Albumin Globulin Albumin/Globulin Ratio TSH Urine Color Urine Appearance Urine pH Ur Specific Grampian Urine Protein Urine Glucose (UA) Urine Ketones Urine Blood Urine Nitrite Urine Bilirubin Urine Urobilinogen Ur Leukocyte Esterase Urine WBC (Auto) Urine RBC (Auto) U Hyaline Cast (Auto) U Epithel Cells (Auto) Urine Bacteria (Auto) Urine Crystals Calcium Oxalate Crystal Salicylates Urine Opiates Screen Ur Methadone, Qual Acetaminophen Urine Barbiturates Ur Phencyclidine (PCP) U Amphetamin/Meth Scrn MDMA (Ecstasy) Screen U Benzodiazepines Scrn Ur Cocaine Metabolite U Marijuana (THC) Screen Ethyl Alcohol mg/dL 10/21/19 10/21/19 10/21/19 12:11 16:29 20:29 WBC RBC Hgb Hct MCV MCH MCHC RDW Std Deviation RDW Coeff of Abel Plt Count MPV Immature Gran % (Auto) Neut % (Auto) Lymph % (Auto) Cowley % (Auto) Eos % (Auto) Baso % (Auto) Immature Gran # (Auto) Neut # (Auto) Lymph # (Auto) Cowley # (Auto) Eos # (Auto) Baso # (Auto) Sodium Potassium Chloride Carbon Dioxide Anion Gap BUN Creatinine Est Cr Clr Drug Dosing Est GFR ( Amer) Est GFR (Non-Af Amer) BUN/Creatinine Ratio Glucose POC Glucose 202 H 251 H 242 H Estimat Average Glucose Hemoglobin A1c Calcium Total Bilirubin AST ALT Alkaline Phosphatase Total Protein Albumin Globulin Albumin/Globulin Ratio TSH Urine Color Urine Appearance Urine pH Ur Specific Grampian Urine Protein Urine Glucose (UA) Urine Ketones Urine Blood Urine Nitrite Urine Bilirubin Urine Urobilinogen Ur Leukocyte Esterase Urine WBC (Auto) Urine RBC (Auto) U Hyaline Cast (Auto) U Epithel Cells (Auto) Urine Bacteria (Auto) Urine Crystals Calcium Oxalate Crystal Salicylates Urine Opiates Screen Ur Methadone, Qual Acetaminophen Urine Barbiturates Ur Phencyclidine (PCP) U Amphetamin/Meth Scrn MDMA (Ecstasy) Screen U Benzodiazepines Scrn Ur Cocaine Metabolite U Marijuana (THC) Screen Ethyl Alcohol mg/dL 10/22/19 10/22/19 10/22/19 00:07 03:56 07:20 WBC RBC Hgb Hct MCV MCH MCHC RDW Std Deviation RDW Coeff of Abel Plt Count MPV Immature Gran % (Auto) Neut % (Auto) Lymph % (Auto) Cowley % (Auto) Eos % (Auto) Baso % (Auto) Immature Gran # (Auto) Neut # (Auto) Lymph # (Auto) Cowley # (Auto) Eos # (Auto) Baso # (Auto) Sodium Potassium Chloride Carbon Dioxide Anion Gap BUN Creatinine Est Cr Clr Drug Dosing Est GFR ( Amer) Est GFR (Non-Af Amer) BUN/Creatinine Ratio Glucose POC Glucose 191 H 216 H 185 H Estimat Average Glucose Hemoglobin A1c Calcium Total Bilirubin AST ALT Alkaline Phosphatase Total Protein Albumin Globulin Albumin/Globulin Ratio TSH Urine Color Urine Appearance Urine pH Ur Specific Grampian Urine Protein Urine Glucose (UA) Urine Ketones Urine Blood Urine Nitrite Urine Bilirubin Urine Urobilinogen Ur Leukocyte Esterase Urine WBC (Auto) Urine RBC (Auto) U Hyaline Cast (Auto) U Epithel Cells (Auto) Urine Bacteria (Auto) Urine Crystals Calcium Oxalate Crystal Salicylates Urine Opiates Screen Ur Methadone, Qual Acetaminophen Urine Barbiturates Ur Phencyclidine (PCP) U Amphetamin/Meth Scrn MDMA (Ecstasy) Screen U Benzodiazepines Scrn Ur Cocaine Metabolite U Marijuana (THC) Screen Ethyl Alcohol mg/dL 10/22/19 10/22/19 10/22/19 12:35 16:44 20:06 WBC RBC Hgb Hct MCV MCH MCHC RDW Std Deviation RDW Coeff of Abel Plt Count MPV Immature Gran % (Auto) Neut % (Auto) Lymph % (Auto) Cowley % (Auto) Eos % (Auto) Baso % (Auto) Immature Gran # (Auto) Neut # (Auto) Lymph # (Auto) Cowley # (Auto) Eos # (Auto) Baso # (Auto) Sodium Potassium Chloride Carbon Dioxide Anion Gap BUN Creatinine Est Cr Clr Drug Dosing Est GFR ( Amer) Est GFR (Non-Af Amer) BUN/Creatinine Ratio Glucose POC Glucose 150 H 230 H 244 H Estimat Average Glucose Hemoglobin A1c Calcium Total Bilirubin AST ALT Alkaline Phosphatase Total Protein Albumin Globulin Albumin/Globulin Ratio TSH Urine Color Urine Appearance Urine pH Ur Specific Grampian Urine Protein Urine Glucose (UA) Urine Ketones Urine Blood Urine Nitrite Urine Bilirubin Urine Urobilinogen Ur Leukocyte Esterase Urine WBC (Auto) Urine RBC (Auto) U Hyaline Cast (Auto) U Epithel Cells (Auto) Urine Bacteria (Auto) Urine Crystals Calcium Oxalate Crystal Salicylates Urine Opiates Screen Ur Methadone, Qual Acetaminophen Urine Barbiturates Ur Phencyclidine (PCP) U Amphetamin/Meth Scrn MDMA (Ecstasy) Screen U Benzodiazepines Scrn Ur Cocaine Metabolite U Marijuana (THC) Screen Ethyl Alcohol mg/dL 10/23/19 00:10 WBC RBC Hgb Hct MCV MCH MCHC RDW Std Deviation RDW Coeff of Abel Plt Count MPV Immature Gran % (Auto) Neut % (Auto) Lymph % (Auto) Cowley % (Auto) Eos % (Auto) Baso % (Auto) Immature Gran # (Auto) Neut # (Auto) Lymph # (Auto) Cowley # (Auto) Eos # (Auto) Baso # (Auto) Sodium Potassium Chloride Carbon Dioxide Anion Gap BUN Creatinine Est Cr Clr Drug Dosing Est GFR ( Amer) Est GFR (Non-Af Amer) BUN/Creatinine Ratio Glucose POC Glucose 197 H Estimat Average Glucose Hemoglobin A1c Calcium Total Bilirubin AST ALT Alkaline Phosphatase Total Protein Albumin Globulin Albumin/Globulin Ratio TSH Urine Color Urine Appearance Urine pH Ur Specific [place] Urine Protein Urine Glucose (UA) Urine Ketones Urine Blood Urine Nitrite Urine Bilirubin Urine Urobilinogen Ur Leukocyte Esterase Urine WBC (Auto) Urine RBC (Auto) U Hyaline Cast (Auto) U Epithel Cells (Auto) Urine Bacteria (Auto) Urine Crystals Calcium Oxalate Crystal Salicylates Urine Opiates Screen Ur Methadone, Qual Acetaminophen Urine Barbiturates Ur Phencyclidine (PCP) U Amphetamin/Meth Scrn MDMA (Ecstasy) Screen U Benzodiazepines Scrn Ur Cocaine Metabolite U Marijuana (THC) Screen Ethyl Alcohol mg/dL Hospital Course (1) Schizoaffective disorder, depressive type: 10/17 - Continue voluntary inpatient treatment. Continue olanzapine, benztropine, and venlafaxine XR at home doses, as patient has been nonadherent and skipping dose, so has not likely been receiving full effect of her medications. She reports good tolerance of these medications, and this regimen has worked for her in the past. -Fasting labs for monitoring on an atypical antipsychotic: Hemoglobin A1c on admission was 10.0, with an estimated average glucose of 240. FLP results reviewed from 07/09/2019; triglycerides elevated at 319, remainder of values within normal limits. -Coordinate care with the patient's BCM, Mercedes Bullock, and contact [facility] to coordinate with Dr. Guillen and ensure she is assigned to a new therapist. -Encourage group attendance and participation. -Suicide checks for safety. Work on healthy coping skills and discharge safety plan. Reality testing as tolerated. -Support options for limiting her access to large amounts of pills, especially when more depressed and having suicidal thoughts, given her history of multiple suicide attempts by overdose. 10/18 -We are continuing to provide gentle reality testing. The patient continues to harbor delusional beliefs and continues to tell us that she is afraid to take certain medications because she is (at the age of 54). -She reports that she has not been hearing auditory hallucinations recently and her thoughts of suicide have been less. While she does tell us that she is able to contract for her own personal safety in the hospital and will not make attempts to harm herself here, she says that she "cannot be sure" what she might do when she leaves the hospital, particularly if she begins to hear the voices again. -Today, the patient tells me that she feels she is tolerating her medications well and that they are "helping." 10/19 - Continue current medications and treatment plan. Assist patient to identify ways to reality test and reassure her regarding need to take medications daily for psychiatric and health issues. -Family meeting held with mother. 10/20 - Continue current treatment plan 10/21 - Continue treatment plan as outlined above - pt continues to improve and has been more compliant with her home medication regimen over the last 1-2 days - Meeting with outpatient window caser this afternoon - Social work team to attempt to coordinate with [facility] regarding medication management, to explore [place] options if necessary 10/22 - Continue treatment plan as outlined above - patient has been tolerating medications with improved compliance (2) Diabetes mellitus type 2, uncontrolled: Continue home dose of metformin, insulin, diabetic diet, and consult glycemic control pharmacist. 10/18 -The patient's blood sugars have all been running high, with the lowest being recently and 115. The patient says that she recognizes her need to adhere with her diabetic regimen and indicates that she intends to cooperate with this fully in this regard. 10/22 - Recommending follow-up with PCP regarding poor glycemic control and reji estrada peripheral neuropathy (3) Dyslipidemia: Continue home dose of Lipitor (4) Hypertension: Continue home dose of lisinopril 10/18 -The issue today has been that the patient has been nonadherent with her psychiatric medications. Her blood pressures were initially quite high, but most recently, while still elevated, was 159/92. -The patient was able to accept my strong advice today to take her antihypertensive medications and she does indicate that she understands that not taking them represents a risk of stroke, heart attack, and kidney failure. -The patient did take her antihypertensive medications today. Mental Health & Subst Abuse Tx Psychiatrist Name of Psychiatrist: Dr. Basilio Psychiatrist's Psychiatric Appointment Comment: The appointment will be scheduled after your intake on 11/08/19 Therapist Name of Therapist: Aminta Hernandez [facility] Office Therapist's Date of Therapist Appointment: 11/08/19 Time of Therapist Appointment: 11:00am Therapy Appointment Comment: [address] [facility] [place] Sketch Liner Name of Sketch Liner: Sravanthi MOREL Phone Number for Sketch Liner: [phone] Post Discharge Appointments Primary Care Physician Name Of Family Doctor: Dr. Rogers Primary Care Date of Appointment with PCP: 10/25/19 Time of Appointment with PCP: 10am Provider Appointment Comment: [facility] Partial or Psych Rehab Name of Partial or Psych Rehab: [facility] Phone Number of Partial or Psych Rehab: [phone] Specialist Name of Specialist: Dr. Turner [facility] Phone Number for Specialist: [phone] Date of Appointment with Specialist: 11/04/19 Time of Appointment with Specialist: 2pm Specialty Appointment Comment: [address] [place] Smoking Cessation Counseling Tobacco Cessation Medication Prescribed at Discharge: Not Applicable/Non-Smoker Contact Information [facility] Discharge [facility] [address] Discharge Plan Discharge Items Patient Disposition: Personal Snf Reason For Visit: SCHIZOAFFECTIVE DISORDER Discharge Diagnosis: Schizoaffective disorder Activity: Per Instructions section Non-emergency contact: Primary Care Provider, Psychiatrist, Therapist and Business Law Professor Call non-emergency contact if: you have any medication questions and your symptoms worsen Follow-up/Referrals: Dillon Rogers MD [Primary Care Provider] - Diet: Regular Addtl Attending Provider Instructions: SPECIAL CARE INSTRUCTIONS: 1. Follow through with your scheduled aftercare appointments. If unable to keep an appointment, please call to reschedule. 2. Take your medication only as prescribed. Medication should not be changed or stopped without the approval of your doctor. In the event of worsening symptoms or concerns about side effects, contact your doctor immediately. 3. Utilize new healthy coping skills, anger management skills, and stress management skills learned during your hospitalization. Journal feelings and process them with a support person. Identify stressors or situations that may result in relapse, deterioration or inappropriate behaviors and develop a plan to deal with those issues. 4. If your coping skills are ineffective and you are in crisis, contact your outpatient providers for direction. If unable to reach your providers, please call the CAN HELP LINE AT or go to the closest Emergency Room. 5. Avoid alcohol and un-prescribed drugs. 6. You have been provided with the Mental Health Advance Directives Pamphlet for your review. AFTERCARE APPOINTMENTS: * Please call your insurance company prior to your scheduled appointment to confirm your aftercare providers are covered. Take your insurance information to your appointments. WHO TO CALL AND WHEN: Medical Emergencies: For questions or emergencies related to your hospital stay, please contact the Inpatient Behavioral Health Unit at [phone]. A city planning engineer is on-call 20/03 for the Behavioral Health Unit for emergencies At any time you feel your situation is an emergency, you may also call 911 immediately. Your Doctors Instructions noted above were prepared by provider Mitra Barry MD. Pending Studies at Discharge: No Stand-Alone Forms: My [facility] Genius, Smoking Cessation, Suicide Prevention Resources Skilled Items Patient informed of condition?: Yes DNR: No Discharge Level of Care: Other Communicable Disease: No Discharge Prognosis: Improving Lines: None Urinary Catheter: No Medications and DC Order Prescriptions: Continued glipizide 10 mg tablet 10 mg PO BID Qty: 180 RF: 3 Vascepa 1 gram capsule 1 gm PO BID Qty: 180 RF: 3 metformin 500 mg tablet extended release 24 hr 500 mg PO BID Qty: 60 RF: 5 hydrochlorothiazide 25 mg tablet 25 mg PO DAILY Qty: 30 RF: 5 cyanocobalamin (vitamin B-12) 1,000 mcg tablet 1,000 mcg PO DAILY Qty: 30 RF: 5 lisinopril 40 mg tablet 40 mg PO DAILY Qty: 30 RF: 5 Victoza 3-Antione 0.6 mg/0.1 mL (18 mg/3 mL) pen injector 1.8 mg SQ DAILY Qty: 9 RF: 5 Lantus Solostar U-100 Insulin 100 unit/mL (3 mL) insulin pen 100 units SQ BID Qty: 60 RF: 5 methimazole 10 mg tablet 10 mg PO DAILY Qty: 30 RF: 5 acetaminophen [Tylenol Extra Strength] 500 mg tablet 500 mg PO Q6H PRN (Reason: fever or pain) Qty: 20 RF: 0 venlafaxine 75 mg tablet extended release 24hr 75 mg PO DAILY RF: 0 olanzapine 20 mg tablet 25 mg PO HS RF: 0 hydroxyzine HCl 25 mg tablet 25 mg PO TID RF: 0 aspirin 81 mg tablet,delayed release (DR/EC) 81 mg PO DAILY Qty: 1 RF: 0 atorvastatin 80 mg tablet 80 mg PO QPM Qty: 90 RF: 0 benztropine 1 mg tablet 1 mg PO HS RF: 0 (DME) OneTouch Ultra Blue Test Strip Strip .ROUTE .MEDSUPPLY RF: 0 (DME) BD AutoShield Duo Pen Needle 30 gauge x 3/16" needle .ROUTE .MEDSUPPLY RF: 0 Discharge Orders: Discharge Order (Routine); Ordered 10/23/19 Ordered By: Mitra Deng/Other Patient Handouts: Diabetes Residential Complications, Diabetes H ealthy Meals, Diabetes Exercise Benefits, Diabetes Living Life, Diabetes Manage A1C Test Admission Data Admit Date/Time: 10/16/19 19:59 Attending Provider: Mitra Barry Admit Provider: Oskar Palm Primary Care Provider: Dillon Rogers V. Other Interventions: PSY Interdisciplinary Discharge Planning Last Done: 10/22/19 14:22 Coding Level of Care Code 87570 D/C day mgmt > 30 min Diagnoses Schizoaffective disorder, depressive type F25.1 Diabetes mellitus type 2, uncontrolled E11.65 Dyslipidemia E78.5 Hypertension I10
[2019-10-23] MEDS ORDERED: INSULIN GLARGINE 100 UNIT/ML VIAL SC ONE (09:00)
[2019-10-23] MEDS ORDERED: INSULIN GLARGINE 100 UNIT/ML VIAL SC SCH (09:00)
[2019-10-23] MEDS: ATORVASTATIN 40 MG TAB PO SCH (09:04)
[2019-10-23] MEDS: VENLAFAXINE HCL XR 75 MG CAPXR PO SCH (09:04)
[2019-10-23] MEDS: ASPIRIN 81 MG ECTAB PO SCH (09:04)
[2019-10-23] MEDS: hydroCHLOROthiazide 25 MG TAB PO SCH (09:04)
[2019-10-23] MEDS: VASCEPA PO SCH (09:04)
[2019-10-23] MEDS: CYANOCOBALAMIN 500 MCG TABLET (VITAMIN B-12) PO SCH (09:05)
[2019-10-23] MEDS: lisinopriL 40 MG TAB PO SCH (09:05)
[2019-10-23] MEDS: methIMAzole 5 MG TABLET PO SCH (09:07)
== END 2019-10-23 11:45 | disposition home or self-care (01) | DRG 885 ==
LOC: ED 15:14 → 3S 19:50

== ENCOUNTER 2020-01-16 13:40 | Inpatient (IN) ==
--- NOTE | 2020-01-16 14:15 | Emergency Department Note ---
Impression & Plan Suicidal ideation, Depressed ED Provider Note NAME: AMADO OLSON AGE: 54 SEX: F : 1965 ARRIVES VIA: Walk-In INFORMANT: [Patient] ED PROVIDER(S): [Kenny Colvin MD] CHIEF COMPLAINT: Suicidal thoughts HISTORY OF PRESENT ILLNESS: The patient is a 54-year-old female presents with about a week of suicidal thinking. She has thought about taking pills. She has history of taking pills over a year ago. Patient states that she has been depressed for about 2 weeks, she is not sure why. There has been no additional stressor. She is not sleeping well though. Patient told her field case manager about how she was feeling. She was referred to the ED for an assessment. The patient is voluntary, she is cooperative. She admits to the suicidal thoughts and proposed plan. She would like to stay in the hospital for help. The patient has not had cough or cold or congestion. No coronavirus exposures. She has been in baseline health otherwise. She states she is taking all her medications as prescribed. REVIEW OF SYSTEMS: See HPI for pertinent positives and negatives. A total of ten systems were reviewed and were otherwise negative. PMHx/PSHx: See Below SOCIAL HISTORY: See Below. PHYSICAL EXAM: GENERAL: Patient is in no acute distress. HEENT: No acute trauma, normocephalic atraumatic, mucous membranes moist, no nasal congestion, no scleral icterus. NECK: No stridor, no adenopathy, no meningismus, trachea is midline. LUNGS: Clear to auscultation bilaterally, no wheeze, no rhonchi, breath sounds equal. HEART: Without murmurs gallops or rubs, regular rate and rhythm. ABDOMEN: Soft, nontender, bowel sounds positive, no hernias, no peritonitis. EXTREMITIES: No cyanosis or edema, full range of motion of all the joints without pain or difficulty, no signs for acute trauma. NEUROLOGIC: Oriented x 3, no acute motor or sensory deficits, no focal weakness. SKIN: No rash, no jaundice, no diaphoresis. Psychiatric: The patient is cooperative, she admits to some suicidal ideation with a plan to overdose on pills. She is voluntary. DIFFERENTIAL DIAGNOSIS: Mood disorder, infection, suicidal ideation, overdose, hypoglycemia, electrolyte abnormalities, cardiac sources, intracerebral event, toxicologic, trauma, neurologic, as well as other pathologies. EMERGENCY DEPARTMENT COURSE/PROCEDURES: MEDICAL DECISION MAKING: There is a mild leukocytosis, this is a baseline finding though looking back at previous testing. No anemia. No significant electrolyte abnormality or kidney failure. Alk phos slightly elevated, the bilirubin was normal. Patient appeared to be in a euthyroid state. testing returned negative. Urinalysis shows contamination, no obvious infection. Aspirin and Tylenol levels are currently pending. Urine tox was negative. Alcohol level returned undetectable. The patient presents with suicidal ideation. She had a plan to overdose on pills. She had tried to harm herself with an overdose in the past. The patient was voluntary and cooperative. The patient was felt medically clear. She was seen by psychiatry case management. The patient will be admitted to our hospital psychiatric facility. The patient has done well here in the ED, there have been no issues or concerns with her behavior. She is being admitted voluntarily. Past Med/Surg History Medical History Albuminuria (Chronic) Eczema (Acute) Graves disease (Chronic) Hypertension (Chronic) Hyperthyroidism (Chronic) PPD positive (Chronic) 19 mm in 2012- DEANNA->( T[place] 9 months ) no longer PPD need Schizoaffective disorder, depressive type Suicidal ideations (Inactive) UTI (urinary tract infection) (Inactive) Surgical History Hx of bilateral breast reduction surgery Hx of tonsillectomy Family History Father FHx: ischemic heart disease before age 50 Cardiac disorder Unknown Ovarian cancer Uncle Prostate cancer Grandfather Myocardial infarction Grandmother Cancer Denies family history of Breast cancer Social History Preferred Language: Romanian Communication Ability: Effective Visual Impairment: No Limitations 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: Normal Hospital Coordinator Required: No Beliefs That Will Affect Care: None marital status: Single Current Living Situation: Personal Care Facility Current Living Situation Comment: [facility] current occupational status: unemployed Feels Safe at Home: Yes and No Smoking Status: Never smoker Hx Alcohol Use: No Hx Substance Use: No Dental Care, Regularly: Yes Physical Activity Frequency: 1-2 Times per Week Seatbelt Use: always Allergies Allergies Allergy/AdvReac Type Severity Reaction Status Date / Time [id number] Reductase Allergy Mild Unknown Verified 11/04/19 14:07 Inhibitor sulfamethoxazole Allergy Mild Difficulty Verified 11/04/19 14:07 [From Bactrim] Breathing trimethoprim [From Bactrim] Allergy Mild Difficulty Verified 11/04/19 14:07 Breathing Home Meds Home Medications Medication Instructions Recorded Confirmed atorvastatin 80 mg tablet 80 mg PO QPM #90 tab 04/21/19 01/16/20 benztropine 1 mg tablet 1 mg PO HS tab 04/21/19 01/16/20 olanzapine 20 mg tablet 25 mg PO HS tab 06/26/19 01/16/20 blood sugar diagnostic 11/04/19 01/16/20 empagliflozin [Jardiance] 10 mg PO QAM 01/16/20 01/16/20 olanzapine 5 mg PO HS 01/16/20 01/16/20 Previous Rx's Medication Instructions Recorded glipizide 10 mg tablet 10 mg PO BID #180 tab 04/16/19 metformin 500 mg tablet,extended 500 mg PO BID #60 tab 07/05/19 release 24 hr Victoza 3-Antione 0.6 mg/0.1 mL (18 1.8 mg SQ DAILY #9 ml NS 07/31/19 mg/3 mL) subcutaneous pen injector Lantus Solostar U-100 Insulin 100 100 units SQ BID #60 ml NS 09/06/19 unit/mL (3 mL) subcutaneous pen methimazole 10 mg tablet 10 mg PO DAILY #30 tab 09/19/19 acetaminophen 500 mg tablet 500 mg PO Q6H PRN #20 tab 10/15/19 fenofibrate micronized 130 mg 130 mg PO DAILY #90 cap 11/05/19 capsule hydroxyzine HCl 25 mg tablet 25 mg PO TID #90 tab 11/08/19 venlafaxine 75 mg tablet,extended 75 mg PO DAILY #30 tab 11/08/19 release 24 hr pen needle,diabetic dual safty 30 #200 ea 12/12/19 gauge x 11/10" cyanocobalamin (vitamin B-12) 1,000 mcg PO DAILY #90 tab 01/15/20 1,000 mcg tablet hydrochlorothiazide 25 mg tablet 25 mg PO DAILY #90 tab 01/15/20 lisinopril 40 mg tablet 40 mg PO DAILY #90 tab 01/15/20 aspirin 81 mg tablet,delayed 81 mg PO DAILY #90 tab 01/16/20 release Results & Data (ED) Vital Signs Vital Signs - 24 hr 01/16/20 13:51 01/16/20 15:58 Temperature 36.6 C Temperature Source Oral Pulse Rate 94 H Pulse Rate [Finger] 77 Respiratory Rate 16 16 Respiratory Effort / Characteristics Non-Labored Spontaneous Respiratory Depth Normal Respiratory Pattern Regular Blood Pressure 161/96 H Blood Pressure [Left Arm] 129/85 Blood Pressure Mean 117 Blood Pressure Mean [Left Arm] 99 Pulse Oximetry 96 97 Oxygen Delivery Method Room Air Room Air Sepsis Recent Fever Within 48 Hours No Sepsis New/Unexplained Change in Mental Status No Sepsis Action Taken by Nursing No Action Required Home Medications Current Medication List: was personally reviewed by me Laboratory Data Attestation: I reviewed the patient's lab results. Result diagrams: 01/16/20 14:21 01/16/20 14:21 Lab Results 01/16/20 01/16/20 01/16/20 Range/Units 14:21 14:21 14:21 WBC 13.23 H (4.8-10.8) K/uL RBC 5.87 H (4.2-5.4) M/uL Hgb 14.5 (12.0-16.0) g/dL Hct 43.9 (37-47) % MCV 74.8 L (80-100) fL MCH 24.7 L (25-34) pg MCHC 33.0 (32-36) g/dL RDW Std Deviation 42.0 (36.4-46.3) fL RDW Coeff of Abel 15.5 H (11.5-14.5) % Plt Count 459 H (130-400) K/uL MPV 8.6 (7.4-10.4) fL Immature Gran % (Auto) 0.3 % Neut % (Auto) 60.6 % Lymph % (Auto) 30.2 % Lander % (Auto) 6.7 % Eos % (Auto) 1.7 % Baso % (Auto) 0.5 % Immature Gran # (Auto) 0.04 H (0.00-0.02) K/uL Neut # (Auto) 8.00 H (1.4-6.5) K/uL Lymph # (Auto) 4.00 H (1.2-3.4) K/uL Lander # (Auto) 0.89 H (0.11-0.59) K/uL Eos # (Auto) 0.23 (0-0.5) K/uL Baso # (Auto) 0.07 (0-0.2) K/uL Sodium 140 (136-145) mmol/L Potassium 3.6 (3.5-5.1) mmol/L Chloride 106 (98-107) mmol/L Carbon Dioxide 24 (21-32) mmol/L Anion Gap 10.0 (3-11) BUN 18 (7-18) mg/dl Creatinine 0.91 (0.6-1.2) mg/dl Est Cr Clr Drug Dosing 74.8 ml/min Est GFR ( Amer) 82.9 Est GFR (Non-Af Amer) 71.5 BUN/Creatinine Ratio 19.6 (10-20) Glucose 116 H (70-99) mg/dl Calcium 10.6 H (8.5-10.1) mg/dl Total Bilirubin 0.4 (0.2-1) mg/dl AST 14 L (15-37) U/L ALT 31 (12-78) U/L Alkaline Phosphatase 164 H (45-117) U/L Total Protein 8.2 (6.4-8.2) gm/dl Albumin 4.1 (3.4-5.0) gm/dl Globulin 4.1 H (2.5-4.0) gm/dl Albumin/Globulin Ratio 1.0 (0.9-2) TSH 0.821 (0.300-4.500) uIu/ml HCG, Qual (Negative) Urine Color Urine Appearance (Clear) Urine pH (4.5-7.5) Ur Specific [place] (1.000-1.030) Urine Protein (Negative) Urine Glucose (UA) (Negative) Urine Ketones (Negative) Urine Blood (Negative) Urine Nitrite (Negative) Urine Bilirubin (Negative) Urine Urobilinogen (Negative) Ur Leukocyte Esterase (Negative) Urine WBC (Auto) (0-5) /hpf Urine RBC (Auto) (0-4) /hpf U Hyaline Cast (Auto) (0-5) /lpf U Epithel Cells (Auto) (0-5) /lpf Urine Bacteria (Auto) (Negative) Salicylates (2.8-20) mg/dl Urine Opiates Screen (Neg) Ur Methadone, Qual (Neg) Acetaminophen (10-30) ug/ml Urine Barbiturates (Neg) Ur Phencyclidine (PCP) (Neg) U Amphetamin/Meth Scrn (Neg) MDMA (Ecstasy) Screen (Neg) U Benzodiazepines Scrn (Neg) Ur Cocaine Metabolite (Neg) U Marijuana (THC) Screen (Neg) Ethyl Alcohol mg/dL (0-3) mg/dl 01/16/20 01/16/20 01/16/20 Range/Units 14:21 14:21 15:15 WBC (4.8-10.8) K/uL RBC (4.2-5.4) M/uL Hgb (12.0-16.0) g/dL Hct (37-47) % MCV (80-100) fL MCH (25-34) pg MCHC (32-36) g/dL RDW Std Deviation (36.4-46.3) fL RDW Coeff of Abel (11.5-14.5) % Plt Count (130-400) K/uL MPV (7.4-10.4) fL Immature Gran % (Auto) % Neut % (Auto) % Lymph % (Auto) % Lander % (Auto) % Eos % (Auto) % Baso % (Auto) % Immature Gran # (Auto) (0.00-0.02) K/uL Neut # (Auto) (1.4-6.5) K/uL Lymph # (Auto) (1.2-3.4) K/uL Lander # (Auto) (0.11-0.59) K/uL Eos # (Auto) (0-0.5) K/uL Baso # (Auto) (0-0.2) K/uL Sodium (136-145) mmol/L Potassium (3.5-5.1) mmol/L Chloride (98-107) mmol/L Carbon Dioxide (21-32) mmol/L Anion Gap (3-11) BUN (7-18) mg/dl Creatinine (0.6-1.2) mg/dl Est Cr Clr Drug Dosing ml/min Est GFR ( Amer) Est GFR (Non-Af Amer) BUN/Creatinine Ratio (10-20) Glucose (70-99) mg/dl Calcium (8.5-10.1) mg/dl Total Bilirubin (0.2-1) mg/dl AST (15-37) U/L ALT (12-78) U/L Alkaline Phosphatase (45-117) U/L Total Protein (6.4-8.2) gm/dl Albumin (3.4-5.0) gm/dl Globulin (2.5-4.0) gm/dl Albumin/Globulin Ratio (0.9-2) TSH (0.300-4.500) uIu/ml HCG, Qual Negative (Negative) Urine Color Urine Appearance (Clear) Urine pH (4.5-7.5) Ur Specific [place] (1.000-1.030) Urine Protein (Negative) Urine Glucose (UA) (Negative) Urine Ketones (Negative) Urine Blood (Negative) Urine Nitrite (Negative) Urine Bilirubin (Negative) Urine Urobilinogen (Negative) Ur Leukocyte Esterase (Negative) Urine WBC (Auto) (0-5) /hpf Urine RBC (Auto) (0-4) /hpf U Hyaline Cast (Auto) (0-5) /lpf U Epithel Cells (Auto) (0-5) /lpf Urine Bacteria (Auto) (Negative) Salicylates (2.8-20) mg/dl Urine Opiates Screen Neg (Neg) Ur Methadone, Qual Neg (Neg) Acetaminophen (10-30) ug/ml Urine Barbiturates Neg (Neg) Ur Phencyclidine (PCP) Neg (Neg) U Amphetamin/Meth Scrn Neg (Neg) MDMA (Ecstasy) Screen Neg (Neg) U Benzodiazepines Scrn Neg (Neg) Ur Cocaine Metabolite Neg (Neg) U Marijuana (THC) Screen Neg (Neg) Ethyl Alcohol mg/dL < 3.0 (0-3) mg/dl 01/16/20 Range/Units 15:15 WBC (4.8-10.8) K/uL RBC (4.2-5.4) M/uL Hgb (12.0-16.0) g/dL Hct (37-47) % MCV (80-100) fL MCH (25-34) pg MCHC (32-36) g/dL RDW Std Deviation (36.4-46.3) fL RDW Coeff of Abel (11.5-14.5) % Plt Count (130-400) K/uL MPV (7.4-10.4) fL Immature Gran % (Auto) % Neut % (Auto) % Lymph % (Auto) % Lander % (Auto) % Eos % (Auto) % Baso % (Auto) % Immature Gran # (Auto) (0.00-0.02) K/uL Neut # (Auto) (1.4-6.5) K/uL Lymph # (Auto) (1.2-3.4) K/uL Lander # (Auto) (0.11-0.59) K/uL Eos # (Auto) (0-0.5) K/uL Baso # (Auto) (0-0.2) K/uL Sodium (136-145) mmol/L Potassium (3.5-5.1) mmol/L Chloride (98-107) mmol/L Carbon Dioxide (21-32) mmol/L Anion Gap (3-11) BUN (7-18) mg/dl Creatinine (0.6-1.2) mg/dl Est Cr Clr Drug Dosing ml/min Est GFR ( Amer) Est GFR (Non-Af Amer) BUN/Creatinine Ratio (10-20) Glucose (70-99) mg/dl Calcium (8.5-10.1) mg/dl Total Bilirubin (0.2-1) mg/dl AST (15-37) U/L ALT (12-78) U/L Alkaline Phosphatase (45-117) U/L Total Protein (6.4-8.2) gm/dl Albumin (3.4-5.0) gm/dl Globulin (2.5-4.0) gm/dl Albumin/Globulin Ratio (0.9-2) TSH (0.300-4.500) uIu/ml HCG, Qual (Negative) Urine Color Yellow Urine Appearance Cloudy A (Clear) Urine pH 5.0 (4.5-7.5) Ur Specific [place] 1.035 H (1.000-1.030) Urine Protein Negative (Negative) Urine Glucose (UA) 3+ H (Negative) Urine Ketones Negative (Negative) Urine Blood Negative (Negative) Urine Nitrite Negative (Negative) Urine Bilirubin Negative (Negative) Urine Urobilinogen Negative (Negative) Ur Leukocyte Esterase Negative (Negative) Urine WBC (Auto) 10-30 H (0-5) /hpf Urine RBC (Auto) 0-4 (0-4) /hpf U Hyaline Cast (Auto) 1-5 (0-5) /lpf U Epithel Cells (Auto) >30 H (0-5) /lpf Urine Bacteria (Auto) 1+ H (Negative) Salicylates (2.8-20) mg/dl Urine Opiates Screen (Neg) Ur Methadone, Qual (Neg) Acetaminophen (10-30) ug/ml Urine Barbiturates (Neg) Ur Phencyclidine (PCP) (Neg) U Amphetamin/Meth Scrn (Neg) MDMA (Ecstasy) Screen (Neg) U Benzodiazepines Scrn (Neg) Ur Cocaine Metabolite (Neg) U Marijuana (THC) Screen (Neg) Ethyl Alcohol mg/dL (0-3) mg/dl Blood Pressure Blood Pressure Findings: Elevated blood pressure Blood Pressure Disposition: Referred to patients primary care provider Discharge Plan Visit Data Chief Complaint: Mental Health Evaluation Stated Complaint: [facility] ED Provider: Kenny Colvin Discharge Problem: Suicidal ideation, Depressed Patient Disposition: Admitted As Inpatient Condition: Good Forms Stand Alone Forms: Community Health, Suicide Prevention Resources Prescriptions Prescriptions: No Action glipizide 10 mg tablet 10 mg PO BID Qty: 180 RF: 3 metformin 500 mg tablet extended release 24 hr 500 mg PO BID Qty: 60 RF: 5 Victoza 3-Antione 0.6 mg/0.1 mL (18 mg/3 mL) pen injector 1.8 mg SQ DAILY Qty: 9 RF: 5 Lantus Solostar U-100 Insulin 100 unit/mL (3 mL) insulin pen 100 units SQ BID Qty: 60 RF: 5 methimazole 10 mg tablet 10 mg PO DAILY Qty: 30 RF: 5 acetaminophen [Tylenol Extra Strength] 500 mg tablet 500 mg PO Q6H PRN (Reason: fever or pain) Qty: 20 RF: 0 fenofibrate micronized 130 mg capsule 130 mg PO DAILY Qty: 90 RF: 3 hydroxyzine HCl 25 mg tablet 25 mg PO TID Qty: 90 RF: 1 venlafaxine 75 mg tablet extended release 24hr 75 mg PO DAILY Qty: 30 RF: 1 (DME) BD AutoShield Duo Pen Needle 30 gauge x 3/16" needle .ROUTE .MEDSUPPLY Qty: 200 RF: 3 cyanocobalamin (vitamin B-12) 1,000 mcg tablet 1,000 mcg PO DAILY Qty: 90 RF: 1 lisinopril 40 mg tablet 40 mg PO DAILY Qty: 90 RF: 1 hydrochlorothiazide 25 mg tablet 25 mg PO DAILY Qty: 90 RF: 1 aspirin 81 mg tablet,delayed release (DR/EC) 81 mg PO DAILY Qty: 90 RF: 3 olanzapine 20 mg tablet 25 mg PO HS RF: 0 atorvastatin 80 mg tablet 80 mg PO QPM Qty: 90 RF: 0 benztropine 1 mg tablet 1 mg PO HS RF: 0 (DME) OneTouch Ultra Blue Test Strip Strip .ROUTE .MEDSUPPLY RF: 0 Jardiance 10 mg Tablet 10 mg PO QAM RF: 0 olanzapine 5 mg Tablet 5 mg PO HS RF: 0 Referrals Referrals: Dillon Rogers MD [Primary Care Provider] - Discharge Problem: Depressed Qualifiers: Depression Type: unspecified Qualified Code(s): F32.9 - Major depressive disorder, single episode, unspecified
[2020-01-16 14:46] LABS: Basophils # (auto) 0.07 K/uL (0-0.2); Basophils % (auto) 0.5 %; Eosinophils # (auto) 0.23 K/uL (0-0.5); Eosinophils % (auto) 1.7 %; Hematocrit (blood only) 43.9 % (37-47); Hemoglobin 14.5 g/dL (12.0-16.0); Immature Granulocytes # (auto) 0.04 K/uL (0.00-0.02); Immature Granulocytes % (auto) 0.3 %; Lymphocytes % (auto) 30.2 %; Mean Corpuscular Hemoglobin 24.7 pg (25-34); Mean Corpuscular Volume 74.8 fL (80-100); Mean Platelet Volume 8.6 fL (7.4-10.4); Monocytes # (auto) 0.89 K/uL (0.11-0.59); Monocytes % (auto) 6.7 %; Neutrophils % (auto) 60.6 %; Platelet Count 459 K/uL (130-400); RDW Coefficient of Variation 15.5 % (11.5-14.5); Red Blood Count 5.87 M/uL (4.2-5.4); White Blood Count 13.23 K/uL (4.8-10.8)
[2020-01-16 15:08] LABS: Albumin Level 4.1 gm/dl (3.4-5.0); BUN Creatinine Ratio 19.6 (10-20); Calcium 10.6 mg/dl (8.5-10.1); Creatinine Clr Calc Pharmacy 74.8 ml/min; Est GFR (African American) 82.9; Est GFR (Non-African American) 71.5; Potassium 3.6 mmol/L (3.5-5.1)
[2020-01-16 15:14] LABS: Pregnancy Test, Serum Negative (Negative)
[2020-01-16 15:19] LABS: Bilirubin,Total 0.4 mg/dl (0.2-1); Globulin 4.1 gm/dl (2.5-4.0); Thyroid Stimulating Hormone 0.821 uIu/ml (0.300-4.500); Total Protein 8.2 gm/dl (6.4-8.2)
[2020-01-16 15:48] LABS: Appearance Urine Cloudy (Clear); Bacteria Urine Automated 1+ (Negative); Bilirubin Urine Negative (Negative); Blood Urine Negative (Negative); Color Urine Yellow; Epithelial Cell Urine Auto >30 /lpf (0-5); Glucose Urine UA 3+ (Negative); Ketones Urine Negative (Negative); Leukocyte Esterase Urine Negative (Negative); Nitrite Urine Negative (Negative); Protein Urine Negative (Negative); RBC Urine Automated 0-4 /hpf (0-4); Specific Gravity Urine 1.035 (1.000-1.030); Urobilinogen Urine Negative (Negative)
[2020-01-16 16:21] LABS: Amphetamines+Metham, Urine Neg (Neg); Barbiturates, Urine Neg (Neg); Benzodiazepine, Urine Neg (Neg); Cocaine, Urine Neg (Neg); MDMA (Ecstacy), Urine Neg (Neg); Methadone, Urine Neg (Neg); Opiate, Urine Neg (Neg); Phencyclidine, Urine Neg (Neg)
[2020-01-16] MEDS ORDERED: BISMUTH SUBSALICYLATE PER ML OMNICELL CHARGE PO PRN (17:14)
[2020-01-16] MEDS ORDERED: ACETAMINOPHEN 325 MG TAB PO PRN (17:14)
[2020-01-16] MEDS ORDERED: SODIUM CHLORIDE 0.65% NA SOLN 45 ML (OCEAN) PRN (17:14)
[2020-01-16] MEDS ORDERED: ALUMINUM/MAGNESIUM SUSP 30 ML UDC PO PRN (17:14)
[2020-01-16] MEDS ORDERED: MAGNESIUM HYDROXIDE SUSP 30 ML UDC PO PRN (17:14)
[2020-01-16] MEDS ORDERED: PHARMACY GLYCEMIC MGMT CONSULT PRN (19:15)
--- NOTE | 2020-01-16 20:05 | Pharmacy Report ---
Glycemic Control Consultation - Date of Service January 16, 2020 - Scope Scope: Glycemic Pharmacist consulted for glycemic control and to write orders per [facility] inpatient glycemic control protocol. - Objective Weight: 81.5 kg Accuchecks BSG (last 24hrs): 01/16/20 01/16/20 14:21 18:05 Glucose 116 H POC Glucose 117 H Laboratory Data (last 24hrs): 01/16/20 14:21 Potassium 3.6 Carbon Dioxide 24 Anion Gap 10.0 Creatinine 0.91 Est Cr Clr Drug Dosing 74.8 - Recent Pertinent Medications Outpatient Anti-diabetic Regimen: * Glargine 100 units SQ BID * Victoza * Metformin * Glipizide * A1c = 10 % 10/16/2019 - Assessment & Plan Assessment & Plan: ASSESSMENT: * 54yo T2DM female with A1c above goal. Pt follows with [facility] Endocrinology. Outpatient control is limited by co-morbid conditions (hyperthyroidism and psychiatric issues). * Pt is maintained on multiple oral agents, basal insulin, + GLP-1. Unsure of compliance with regimen. Will hold non-insulin agents for admission and add Novolog bolus insulin per CF/CR in it's place. * Outpatient dosing of insulin is 200 units/day --> will convert this to 50%:50% distribution of basal:prandial and titrate based on BSG trends. * Goal is to maintain BSGs in 120-160 mg/dl range ; patient prefers BSGs a little higher and pt may feel hypo at otherwise normal BSGs based on elevated A1c PLAN FOR INPATIENT GLYCEMIC CONTROL: * Holding outpatient oral diabetes medications and GLP-1 * Basal insulin * Lantus 100 units SQ BID {outpatient dosing} --> change to 50%:50% dosing and use dosing scale until true basal dose determined * Lantus SQ BID based on BSG * BSG below 140mg/dl --> 65 units * BSG 140-180mg/dl --> 75 units * BSG above 180 mg/dl --> 85 units * Bolus insulin * NovoLog per scale ACHS or Q6hrs while NPO * Goal Range: Low 120 mg/dL - High 160 mg/dL * Correction Factor: 10 mg/dL/unit * Nutritional / Prandial insulin per carb ratio of 1 unit per 4 grams CHO consumed * Please note that the plan above was derived based on current level of insulin resistance and hospital stress. These recommendations are appropriate for inpatient admission only. Plan of care upon discharge will need to be reassessed to avoid potential outpatient hypo/hyperglycemia. Thank you.
[2020-01-16] MEDS ORDERED: INSULIN GLARGINE 100 UNIT/ML VIAL SC SCH (21:00)
[2020-01-16] MEDS ORDERED: glipiZIDE 5 MG TAB PO SCH (21:00)
[2020-01-16] MEDS: ATORVASTATIN 40 MG TAB PO SCH (21:17)
[2020-01-16] MEDS: BENZTROPINE MESYLATE 1 MG TAB PO SCH (21:18)
[2020-01-16] MEDS: OLANZapine 10 MG TAB PO SCH ×2 (21:19→22:26)
[2020-01-16] MEDS: INSULIN ASPART 100 UNITS/ML 3 ML PEN SC SCH (21:51)
[2020-01-17] MEDS ORDERED: METFORMIN HCL ER 500 MG TABCR PO SCH (08:00)
[2020-01-17] MEDS ORDERED: FENOFIBRATE MICRONIZED 130 MG PO SCH (09:00)
[2020-01-17] MEDS ORDERED: NON-FORMULARY MEDICATION (Empagliflozin [Jardiance] 10 MG) PO SCH (09:00)
[2020-01-17] MEDS: INSULIN GLARGINE 100 UNIT/ML VIAL SC SCH ×2 (09:30→21:25)
[2020-01-17] MEDS: INSULIN ASPART 100 UNITS/ML 3 ML PEN SC SCH ×4 (09:32→21:26)
[2020-01-17] MEDS: ASPIRIN 81 MG ECTAB PO SCH (11:01)
[2020-01-17] MEDS: hydroCHLOROthiazide 25 MG TAB PO SCH (11:02)
[2020-01-17] MEDS: lisinopriL 40 MG TAB PO SCH (11:02)
[2020-01-17] MEDS: VENLAFAXINE HCL XR 75 MG CAPXR PO SCH (11:02)
[2020-01-17] MEDS: CYANOCOBALAMIN 500 MCG TABLET (VITAMIN B-12) PO SCH (11:02)
[2020-01-17] MEDS: methIMAzole 5 MG TABLET PO SCH (11:02)
--- NOTE | 2020-01-17 12:43 | History & Physical ---
Date of Service January 17, 2020 Impression / Recommendations Impression This 54-year-old woman is known to me from a previous to our unit in September of this year. She has variously carried diagnoses of schizophrenia, depression, and most recently schizoaffective disorder depressed type. The patient lives in a residential program in [facility], and also enjoys support from her mother, a retired [employer] professor who lives in [place], as well as from the patient's daughter, currently a student at [employer]. She has many strengths, including intelligence, a pleasant personality, and kindness. However, she also demonstrates certain dependency features, as well as fairly frequent mood alterations. Further, the patient has a history of recurrent psychotic symptoms, and acknowledges that she often is nonadherent with psychiatric medications. During her most recent previous psychiatric hospitalization at the behavioral health unit at [facility] she was reluctant to take certain medications, including somatic medications, because she was afraid of causing damage to the unborn child that she, the time, believed that she was carrying. Currently, although the patient complains of nausea, she does not assert that she is and come instead, attributes the nausea to her psychiatric medications. Other complaints include difficulty sleeping, depressed mood, and, in general, "not feeling well." I suspect that she sees inpatient psychiatric units as a form of respite where she can enjoy additional attention and support. However, the patient is also clearly quite depressed and her threats of suicide are coupled with a past history of several serious suicide attempts. We will work with the patient to get her to accept restarting psychiatric medications. 1 goal may be to convince her to accept a trial of a Depo antipsychotic/mood stabilizer, given her history of nonadherence. In the meantime, the patient has been admitted to the locked inpatient psychiatric unit and placed on suicide precautions with close observations. Based on our past experience it may take several days for the patient to become more verbal and cooperative. We will provide active support and encouragement. The patient will be offered her psychiatric medications (1) Schizoaffective disorder, depressive type: 01/17/20 -Currently, the patient is experiencing symptoms consistent with the depressed phase of her schizoaffective disorder, depressed type. She describes depressed mood, difficulty sleeping, feelings of hopelessness, helplessness and worthlessness. She also endorses suicidal ideation with specific thoughts of committing suicide by overdose. There is a past history of suicide attempts by overdose. The patient has been admitted to the locked behavioral health unit and has been placed on suicide observations. She will be encouraged to participate actively in individual, group, activity, and, as required, remote family interventions (telephonically) due to safety concerns related to the COVID-19 crisis. -We will continue to offer the patient olanzapine at her outpatient dose, orally, and we will offer a couple that with an antiemetic given her complaint that it causes nausea. Will be necessary with the patient continues to refuse oral psychiatric medications given the severity of her illness and the unlikelihood that she will recover without the use of antipsychotic/mood stabilizing medications. -We will also continue to offer the patient venlafaxine 75 mg daily for depression. Present on Admission?: No (2) Diabetic nephropathy associated with type 2 diabetes mellitus: 01/17/20 -The patient's blood glucose levels will be monitored treated per protocol. (3) Suicidal ideation: 01/17/20 -The patient has been placed on suicide precautions and is being actively monitored and treated on the locked behavioral unit. -She has been referred for individual, group, and activity therapies with a primary goal of helping the patient develop improved individual coping strategies in anticipation of return to the community. -We will encourage the patient to except her antidepressant medication, currently venlafaxine 75 mg daily. -We are also encouraging the patient to accept olanzapine 30 mg at bedtime, while discussing with the patient options of switching to a medication that would allow us to offer her intramuscular Depo medications for convenience and adherence. -We will attempt to address the patient's complaints of side effects from her medication, such as nausea, with medications intended to provide symptomatic relief Present on Admission?: Yes Inventory Assets Strengths: Intelligence, active support from her family, good relationship with outpatient providers, supportive living environment. Needs: Improved mood; resolution of active suicidality; improved medication adherence; enhanced individual coping strategies. Risk Factors Assessment History of psychotic illness. History of multiple psychiatric hospitalizations. History of past suicide attempts. Mitigating factors include the patient's willingness to accept treatment, and the fact that she was adherent with her safety plan for community reentry formulated at the time of her last hospitalization. More specifically, the patient did present to the emergency room when she was having active thoughts of suicide, as per the plan. Male: No : Yes Do You Have Access To A Gun?: No Health Problems: Yes Mental Health Diagnoses: Yes Substance Use Disorders: No Previous Attempt: Yes Previous Attempt; Highly Lethal: No Previous Attempt; Planned: Yes Previous Attempt; Didn't Tell Anyone: No Family History of Suicide: No Previous Psychiatric Hospitalization: Yes Hopelessness: No Smoker: No Protective Factors Assessment Anabaptism Beliefs: No : No Responsible for Young Children: No Employed: No Stable Relationships: Yes Supportive Family: Yes Good Rapport with Provider: Yes Absence of Any Risk Factors Above: No Psychiatric History Identifying Data AMADO OLSON is a 54-year-old F who currently lives in a mental health residential facility. She has a history of schizoaffective disorder, depressed type and was admitted on 01/16/20 17:14 on a 201 voluntary agreement after she presented to the emergency department and complained of depression with suicidal ideation and plan. Chief Complaint "I wasn't feeling well. Suicidal." History of Present Illness The patient is a 54-year-old woman known to us from previous admissions. She presented to the emergency department last evening and complained of generally "not feeling well," depressed mood, and thoughts of suicide by taking an overdose of medications. She indicates that she has been having thoughts of suicide and not feeling well for approximately 2 weeks, and she does not identify any precipitating variables. However, without identifying a correlation she also reports that she had stopped taking her psychiatric medications because "they were making me feel sick at my stomach." The patient offers little additional information spontaneously, assures us that she will not engage in any self-injurious behaviors in the hospital, notes that she felt that she wanted to come into the hospital, and adds "all of you are very nice to me when I am here." When asked if she was having problems with other persons not being as nice as she would like, she deferred. Past Psychiatric History Previous Psych History: Previous Psych History: Psychiatric problems reportedly started in her 20s after moving to the [place]. She has had various diagnoses in the past including Current Psychiatric Diagnosis: Schizoaffective, depressed type. Outpatient Services: Was being seen at [facility] (Dr. Guillen and thearptay), but after they closed, was placed on a wait list at [facility] for therapy and psychiatry, and has not seen anyone or gotten appointments yet, despite calling them multiple times. PABLO Bullock Previous Psych Admissions: Multiple previous hospitalizations at [facility] (at least 20 since 1997, with the most recent having been approximately 3 months ago in September 2019), [facility] (last there in 05/2019 for SI with a plan to overdose), [facility], and [facility] in [place]. 10 to 15 years ago, she was at [facility] for about 3 years. Do You Have Access To A Gun?: No History of Previous Suicide Attempt: Yes Describe Attempts in the Past: Patient reports 3 previous suicide attempts by overdose, last 1 yr ago Past Medication Trials: Multiple hospitalizations here in the past for Ativan overdoses. Haloperidol Stelazine Prolixin Risperidone Bupropion Cytomel Provigi Current Psychiatric Diagnosis: Schizoaffective Disorder Do You Have Access To A Gun?: No Describe Attempts in the Past: Overdose X3 Allergies Allergy/AdvReac Type Severity Reaction Status Date / Time Akllyjg-Pms-Vpe Reductase Allergy Mild Unknown Verified 11/04/19 14:07 Inhibitor sulfamethoxazole Allergy Mild Difficulty Verified 11/04/19 14:07 [From Bactrim] Breathing trimethoprim [From Bactrim] Allergy Mild Difficulty Verified 11/04/19 14:07 Breathing Home Medications Home Medications Medication Instructions Recorded Confirmed Type glipizide 10 mg tablet 10 mg PO BID #180 tab 04/16/19 01/16/20 Rx atorvastatin 80 mg tablet 80 mg PO QPM #90 tab 04/21/19 01/16/20 History benztropine 1 mg tablet 1 mg PO HS tab 04/21/19 01/16/20 History olanzapine 20 mg tablet 25 mg PO HS tab 06/26/19 01/16/20 History metformin 500 mg tablet,extended 500 mg PO BID #60 tab 07/05/19 01/16/20 Rx release 24 hr Victoza 3-Antione 0.6 mg/0.1 mL (18 1.8 mg SQ DAILY #9 ml NS 07/31/19 01/16/20 Rx mg/3 mL) subcutaneous pen injector Lantus Solostar U-100 Insulin 100 100 units SQ BID #60 ml NS 09/06/19 01/16/20 Rx unit/mL (3 mL) subcutaneous pen methimazole 10 mg tablet 10 mg PO DAILY #30 tab 09/19/19 01/16/20 Rx acetaminophen 500 mg tablet 500 mg PO Q6H PRN #20 tab 10/15/19 01/16/20 Rx blood sugar diagnostic 11/04/19 01/16/20 History fenofibrate micronized 130 mg 130 mg PO DAILY #90 cap 11/05/19 01/16/20 Rx capsule hydroxyzine HCl 25 mg tablet 25 mg PO TID #90 tab 11/08/19 01/16/20 Rx venlafaxine 75 mg tablet,extended 75 mg PO DAILY #30 tab 11/08/19 01/16/20 Rx release 24 hr pen needle,diabetic dual safty 30 #200 ea 12/12/19 01/16/20 Rx gauge x 3/16" cyanocobalamin (vitamin B-12) 1,000 mcg PO DAILY #90 tab 01/15/20 01/16/20 Rx 1,000 mcg tablet hydrochlorothiazide 25 mg tablet 25 mg PO DAILY #90 tab 01/15/20 01/16/20 Rx lisinopril 40 mg tablet 40 mg PO DAILY #90 tab 01/15/20 01/16/20 Rx aspirin 81 mg tablet,delayed 81 mg PO DAILY #90 tab 01/16/20 01/16/20 Rx release empagliflozin [Jardiance] 10 mg PO QAM 01/16/20 01/16/20 History olanzapine 5 mg PO HS 01/16/20 01/16/20 History Family History Family History of: Doesn't Know Alcohol History Hx of Alcohol Use Over the Past 12 Months: No AUDIT Total Score: 0 Smoking Use Have You Smoked or Used Tobacco Products in the Last 30 Days: No Smoking Status: Never smoker Substance History Hx of Prescription Med Misuse Over the Past 12 Months: No Hx of Over the Counter Med Misuse Over the Past 12 Months: No Hx of Inhalent Misuse Over the Past 12 Months: No Hx of Organic Substance Use Over the Past 12 Months: No Hx of Illegal Substances/Street Drug Use Over Past 12 Months: No Problems as a Result of Past Substance Use: None Identified Personal History Living Arrangements: Personal Care Facility Highest Grade Completed: Some College Beliefs That Will Affect Care: None Patient History Medical History Albuminuria (Chronic) Eczema (Acute) Graves disease (Chronic) Hypertension (Chronic) Hyperthyroidism (Chronic) PPD positive (Chronic) 19 mm in 2012- DEANNA->( Tx 9 months ) no longer PPD need Schizoaffective disorder, depressive type Suicidal ideations (Inactive) UTI (urinary tract infection) (Inactive) Surgical History Hx of bilateral breast reduction surgery Hx of tonsillectomy Family History Father FHx: ischemic heart disease before age 50 Cardiac disorder Unknown Ovarian cancer Uncle Prostate cancer Grandfather Myocardial infarction Grandmother Cancer Denies family history of Breast cancer Social History Preferred Language: Romansh Communication Ability: Effective Visual Impairment: No Limitations 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: Normal 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 At least 10 systems were reviewed. Significant findings include, but are not limited to type 2 diabetes, hypertension, and hyperlipidemia. The somatic history, review of systems, and physical examination completed by Dr. Kenny Colvin in the emergency department has been reviewed and is excepted for purposes of medical clearance to the behavioral health unit. Physical Exam Psychiatric: Orientation: alert, oriented x 3 and cooperative Apperance: appropriately groomed Eye Contact: + fair eye contact Motor Behavior: steady gait and station (The patient remained seated throughout the interview and so her gait was not directly assessed.) The patient's speech was spontaneous, but was soft and there was a certain paucity Affect: + depressed affect Mood: + depressed mood Thought Process: + concrete thought process No delusional material was elicited today. The patient's thought content will need to be further investigated, but today she seemed eager to terminate the interview. In the past, she has held delusional beliefs. For example, in September during her hospitalization on the behavioral health unit she insisted that she was and had been for many years. Patient reports that she has continued to have thoughts of suicide, and says that if she were to make a suicide attempt it would be by an overdose of medications. She also says that it was for this reason that she sought hospitalization; i.e. to prevent suicide. She also contracts for safety in the hospital and tells us that she will let us know if any thoughts of self-harm in the hospital emerge Homicidal Thoughts: denies homicidal thoughts Hallucinations: no auditory hallucinations Cognition: recent memory grossly intact, remote memory grossly intact and language grossly intact Estimated Intelligence: + above average estimated intelligence Insight: + poor insight Judgement: + impaired judgement Vital Signs (Past 24 Hours): Last Vital Signs Temp 36.6 C 01/17/20 06:31 Pulse 66 01/17/20 06:31 Resp 20 01/17/20 06:31 BP 112/74 01/17/20 06:31 Pulse Ox 96 01/16/20 18:16 Results & Data ([facility]) Laboratory Results Laboratory Results - last 24 hr 01/16/20 01/16/20 01/16/20 14:21 14:21 14:21 WBC 13.23 H RBC 5.87 H Hgb 14.5 Hct 43.9 MCV 74.8 L MCH 24.7 L MCHC 33.0 RDW Std Deviation 42.0 RDW Coeff of Abel 15.5 H Plt Count 459 H MPV 8.6 Immature Gran % (Auto) 0.3 Neut % (Auto) 60.6 Lymph % (Auto) 30.2 Stone % (Auto) 6.7 Eos % (Auto) 1.7 Baso % (Auto) 0.5 Immature Gran # (Auto) 0.04 H Neut # (Auto) 8.00 H Lymph # (Auto) 4.00 H Stone # (Auto) 0.89 H Eos # (Auto) 0.23 Baso # (Auto) 0.07 Sodium 140 Potassium 3.6 Chloride 106 Carbon Dioxide 24 Anion Gap 10.0 BUN 18 Creatinine 0.91 Est Cr Clr Drug Dosing 74.8 Est GFR ( Amer) 82.9 Est GFR (Non-Af Amer) 71.5 BUN/Creatinine Ratio 19.6 Glucose 116 H POC Glucose Calcium 10.6 H Total Bilirubin 0.4 AST 14 L ALT 31 Alkaline Phosphatase 164 H Total Protein 8.2 Albumin 4.1 Globulin 4.1 H Albumin/Globulin Ratio 1.0 TSH 0.821 HCG, Qual Urine Color Urine Appearance Urine pH Ur Specific Rowlett Urine Protein Urine Glucose (UA) Urine Ketones Urine Blood Urine Nitrite Urine Bilirubin Urine Urobilinogen Ur Leukocyte Esterase Urine WBC (Auto) Urine RBC (Auto) U Hyaline Cast (Auto) U Epithel Cells (Auto) Urine Bacteria (Auto) Salicylates Urine Opiates Screen Ur Methadone, Qual Acetaminophen Urine Barbiturates Ur Phencyclidine (PCP) U Amphetamin/Meth Scrn MDMA (Ecstasy) Screen U Benzodiazepines Scrn Ur Cocaine Metabolite U Marijuana (THC) Screen Ethyl Alcohol mg/dL 01/16/20 01/16/20 01/16/20 14:21 14:21 15:15 WBC RBC Hgb Hct MCV MCH MCHC RDW Std Deviation RDW Coeff of Abel Plt Count MPV Immature Gran % (Auto) Neut % (Auto) Lymph % (Auto) Stone % (Auto) Eos % (Auto) Baso % (Auto) Immature Gran # (Auto) Neut # (Auto) Lymph # (Auto) Stone # (Auto) Eos # (Auto) Baso # (Auto) Sodium Potassium Chloride Carbon Dioxide Anion Gap BUN Creatinine Est Cr Clr Drug Dosing Est GFR ( Amer) Est GFR (Non-Af Amer) BUN/Creatinine Ratio Glucose POC Glucose Calcium Total Bilirubin AST ALT Alkaline Phosphatase Total Protein Albumin Globulin Albumin/Globulin Ratio TSH HCG, Qual Negative Urine Color Urine Appearance Urine pH Ur Specific Rowlett Urine Protein Urine Glucose (UA) Urine Ketones Urine Blood Urine Nitrite Urine Bilirubin Urine Urobilinogen Ur Leukocyte Esterase Urine WBC (Auto) Urine RBC (Auto) U Hyaline Cast (Auto) U Epithel Cells (Auto) Urine Bacteria (Auto) Salicylates Urine Opiates Screen Neg Ur Methadone, Qual Neg Acetaminophen Urine Barbiturates Neg Ur Phencyclidine (PCP) Neg U Amphetamin/Meth Scrn Neg MDMA (Ecstasy) Screen Neg U Benzodiazepines Scrn Neg Ur Cocaine Metabolite Neg U Marijuana (THC) Screen Neg Ethyl Alcohol mg/dL < 3.0 01/16/20 01/16/20 01/16/20 15:15 18:05 21:12 WBC RBC Hgb Hct MCV MCH MCHC RDW Std Deviation RDW Coeff of Abel Plt Count MPV Immature Gran % (Auto) Neut % (Auto) Lymph % (Auto) Stone % (Auto) Eos % (Auto) Baso % (Auto) Immature Gran # (Auto) Neut # (Auto) Lymph # (Auto) Stone # (Auto) Eos # (Auto) Baso # (Auto) Sodium Potassium Chloride Carbon Dioxide Anion Gap BUN Creatinine Est Cr Clr Drug Dosing Est GFR ( Amer) Est GFR (Non-Af Amer) BUN/Creatinine Ratio Glucose POC Glucose 117 H 131 H Calcium Total Bilirubin AST ALT Alkaline Phosphatase Total Protein Albumin Globulin Albumin/Globulin Ratio TSH HCG, Qual Urine Color Yellow Urine Appearance Cloudy A Urine pH 5.0 Ur Specific Rowlett 1.035 H Urine Protein Negative Urine Glucose (UA) 3+ H Urine Ketones Negative Urine Blood Negative Urine Nitrite Negative Urine Bilirubin Negative Urine Urobilinogen Negative Ur Leukocyte Esterase Negative Urine WBC (Auto) 10-30 H Urine RBC (Auto) 0-4 U Hyaline Cast (Auto) 1-5 U Epithel Cells (Auto) >30 H Urine Bacteria (Auto) 1+ H Salicylates Urine Opiates Screen Ur Methadone, Qual Acetaminophen Urine Barbiturates Ur Phencyclidine (PCP) U Amphetamin/Meth Scrn MDMA (Ecstasy) Screen U Benzodiazepines Scrn Ur Cocaine Metabolite U Marijuana (THC) Screen Ethyl Alcohol mg/dL 01/17/20 08:34 WBC RBC Hgb Hct MCV MCH MCHC RDW Std Deviation RDW Coeff of Abel Plt Count MPV Immature Gran % (Auto) Neut % (Auto) Lymph % (Auto) Stone % (Auto) Eos % (Auto) Baso % (Auto) Immature Gran # (Auto) Neut # (Auto) Lymph # (Auto) Stone # (Auto) Eos # (Auto) Baso # (Auto) Sodium Potassium Chloride Carbon Dioxide Anion Gap BUN Creatinine Est Cr Clr Drug Dosing Est GFR ( Amer) Est GFR (Non-Af Amer) BUN/Creatinine Ratio Glucose POC Glucose 111 H Calcium Total Bilirubin AST ALT Alkaline Phosphatase Total Protein Albumin Globulin Albumin/Globulin Ratio TSH HCG, Qual Urine Color Urine Appearance Urine pH Ur Specific Row[place] Urine Protein Urine Glucose (UA) Urine Ketones Urine Blood Urine Nitrite Urine Bilirubin Urine Urobilinogen Ur Leukocyte Esterase Urine WBC (Auto) Urine RBC (Auto) U Hyaline Cast (Auto) U Epithel Cells (Auto) Urine Bacteria (Auto) Salicylates Urine Opiates Screen Ur Methadone, Qual Acetaminophen Urine Barbiturates Ur Phencyclidine (PCP) U Amphetamin/Meth Scrn MDMA (Ecstasy) Screen U Benzodiazepines Scrn Ur Cocaine Metabolite U Marijuana (THC) Screen Ethyl Alcohol mg/dL Current Inpatient Medications Current Inpatient Medications: Current Inpatient Medications Acetaminophen (Tylenol) 650 mg PO Q4H PRN PRN Reason: Headache or Minor Fever Stop: 02/15/20 17:13 Al Hydrox/Mg Hydrox/Simethicone (Maalox) 30 ml PO Q4H PRN PRN Reason: GI Upset Stop: 02/15/20 17:13 Aspirin (Ecotrin Ectab) 81 mg PO DAILY [facility] Stop: 02/16/20 08:59 Last Admin: 01/17/20 11:01 Dose: Not Given Documented by: Atorvastatin Calcium (Lipitor) 80 mg PO QPM [facility] Stop: 02/15/20 20:59 Last Admin: 01/16/20 21:17 Dose: Not Given Documented by: Benztropine Mesylate (Cogentin) 1 mg PO HS [facility] Stop: 02/15/20 20:59 Last Admin: 01/16/20 21:18 Dose: Not Given Documented by: Bismuth Subsalicylate (Kaopectate) 15 ml PO PRN PRN PRN Reason: Loose Stool Stop: 02/15/20 17:13 Cyanocobalamin (Vitamin B-12) 1,000 mcg PO DAILY [facility] Stop: 02/16/20 08:59 Last Admin: 01/17/20 11:02 Dose: Not Given Documented by: Hydrochlorothiazide (Hctz) 25 mg PO DAILY [facility] Stop: 02/16/20 08:59 Last Admin: 01/17/20 11:02 Dose: Not Given Documented by: Hydroxyzine HCl (Vistaril) 50 mg PO HSZ PRN PRN Reason: Insomnia Stop: 02/15/20 17:13 Hydroxyzine HCl (Vistaril) 25 mg PO Q4H PRN PRN Reason: Anxiety Stop: 02/15/20 17:13 Hydroxyzine HCl (Vistaril) 25 mg PO TID [facility] Stop: 02/15/20 20:59 Last Admin: 01/17/20 11:02 Dose: Not Given Documented by: Insulin Aspart (Novolog Flexpen) 0 units SC [facility]; Protocol Stop: 02/15/20 21:59 Last Admin: 01/17/20 09:32 Dose: 5 units Documented by: Insulin Glargine (Lantus) 70 units SC BID [facility] Stop: 02/16/20 08:59 Last Admin: 01/17/20 09:30 Dose: 70 units Documented by: Lisinopril (Zestril) 40 mg PO DAILY ANNAMARIA Stop: 02/16/20 08:59 Last Admin: 01/17/20 11:02 Dose: Not Given Documented by: Magnesium Hydroxide (Milk Of Magnesia) 30 ml PO DAILY PRN PRN Reason: Constipation Stop: 02/15/20 17:13 Methimazole (Tapazole) 10 mg PO DAILY ANNAMARIA Stop: 02/16/20 08:59 Last Admin: 01/17/20 11:02 Dose: Not Given Documented by: Miscellaneous (Order Awaiting Action) 1 ea N/A QS ANNAMARIA Stop: 02/16/20 00:00 Last Admin: 01/17/20 11:01 Dose: Not Given Documented by: Miscellaneous Information (Consult Glycemic Management Pharmacy) 1 ea N/A UD PRN PRN Reason: Consult Stop: 02/15/20 19:14 Olanzapine (Zyprexa) 30 mg PO HS [facility] Stop: 02/15/20 20:59 Last Admin: 01/16/20 22:26 Dose: 20 mg Documented by: Sodium Chloride ([place] Nasal) 1 - 2 sprays NA PRN PRN PRN Reason: Nasal Dryness/Congestion Stop: 02/15/20 17:13 Venlafaxine HCl (Effexor Extended Release) 75 mg PO DAILY [facility] Stop: 02/16/20 08:59 Last Admin: 01/17/20 11:02 Dose: Not Given Documented by:
--- NOTE | 2020-01-17 13:24 | Pharmacy Report ---
Pharmacy Glycemic Short Note 2 - Date of Service January 17, 2020 - Glycemic Short BSG Results (Last 24 hours): 01/16/20 01/16/20 01/16/20 14:21 18:05 21:12 Glucose 116 H POC Glucose 117 H 131 H 01/17/20 01/17/20 08:34 12:52 Glucose POC Glucose 111 H 113 H OUTPATIENT ANTIDIABETIC REGIMEN: * Glargine 100 units SQ BID * Victoza * Metformin * Glipizide * A1c = 10 % 10/16/2019 INPATIENT INSULIN REGIMEN AND CAUSES OF INSULIN RESISTANCE: - Assessment & Plan ASSESSMENT: 01/16 * BSGs well controlled since admission * Will adjust insulin regimen slightly to match previous admission requirements 01/15 * 54yo T2DM female with A1c above goal. Pt follows with [facility]. Outpatient control is limited by co-morbid conditions (hyperthyroidism and psychiatric issues). * Pt is maintained on multiple oral agents, basal insulin, + GLP-1. Unsure of compliance with regimen. Will hold non-insulin agents for admission and add No volog bolus insulin per CF/CR in it's place. * Outpatient dosing of insulin is 200 units/day --> will convert this to 50%:50% distribution of basal:prandial and titrate based on BSG trends. * Goal is to maintain BSGs in 120-160 mg/dl range ; patient prefers BSGs a little higher and pt may feel hypo at otherwise normal BSGs based on elevated A1c PLAN FOR INPATIENT GLYCEMIC CONTROL: * Hold outpatient diabetes medications * Basal insulin - provide a set dose instead of a scale * Lantus 70 units BID * Bolus insulin - tighten CF/CR * NovoLog per scale ACHS or Q6hrs while NPO * Goal Range: Low 110 mg/dL - High 140 mg/dL * Correction Factor: 8 mg/dL/unit * Nutritional / Prandial insulin per carb ratio of 1 unit per 3 grams CHO consumed * A1c ordered with AM labs as per [facility] standards for A1c within 90 days
--- NOTE | 2020-01-17 15:29 | Communication Note ---
Date of Service: January 17, 2020 I personally evaluated the patient today in a [id number] interview. She is also well known to me from her most recent previous psychiatric hospitalization. The patient suffers from schizoaffective disorder, depressed type and has a long history of mood instability and psychosis. She often is nonadherent with medications and today tells me that she plans to decline her psychiatric medications because she does not feel that she requires them and, also, they cause unspecified "nausea." She was offered symptomatic relief for nausea, and had a that she was not interested. Given the patient's history and her presenting symptoms I find that the patient does require an antipsychotic medication such as olanzapine, and without medically necessary psychiatric chemotherapy the patient is unlikely to recover to the degree that she can be safely released from inpatient psychiatric treatment. Therefore, if the patient refuses to take oral antipsychotic medication such as olanzapine I am recommending that medications over objection be implemented.
[2020-01-17] MEDS: ATORVASTATIN 40 MG TAB PO SCH (21:07)
[2020-01-17] MEDS: OLANZapine 10 MG TAB PO SCH (21:08)
[2020-01-17] MEDS: BENZTROPINE MESYLATE 1 MG TAB PO SCH (21:08)
[2020-01-18] MEDS: CYANOCOBALAMIN 500 MCG TABLET (VITAMIN B-12) PO SCH (08:25)
[2020-01-18] MEDS: ASPIRIN 81 MG ECTAB PO SCH (08:25)
[2020-01-18] MEDS: methIMAzole 5 MG TABLET PO SCH (08:25)
[2020-01-18] MEDS: VENLAFAXINE HCL XR 75 MG CAPXR PO SCH (08:28)
[2020-01-18] MEDS: hydroCHLOROthiazide 25 MG TAB PO SCH (08:29)
[2020-01-18] MEDS: lisinopriL 40 MG TAB PO SCH (08:30)
[2020-01-18] MEDS: INSULIN GLARGINE 100 UNIT/ML VIAL SC SCH ×2 (09:47→21:26)
[2020-01-18] MEDS: INSULIN ASPART 100 UNITS/ML 3 ML PEN SC SCH ×4 (09:47→21:26)
--- NOTE | 2020-01-18 10:46 | Psychiatric Progress Note ---
Date of Service January 18, 2020 Impression / Recommendations Impression 54-year-old woman, last admitted to in September for schizoaffective disorder depressed type. The patient lives in a residential program in [facility], and also enjoys support from her mother, a retired [employer] professor as well as her daughter, currently a student at [employer]. Her mood has been labile and non-adherent to outpatient meds for no clear reason. She has a history of suicide attempts and she is not yet compliant with insulin and regimen. She is currently on a 201 commitment and taking some meds so not immediately appropriate for meds over objection, reviewed blood sugars. Reviewed with patient option of converting to a different med for FERNANDEZ and she states she was on Invega sustenna previously. Awaiting records. (1) Schizoaffective disorder, depressive type: 01/17/20 -Currently, the patient is experiencing symptoms consistent with the depressed phase of her schizoaffective disorder, depressed type. She describes depressed mood, difficulty sleeping, feelings of hopelessness, helplessness and worthlessness. She also endorses suicidal ideation with specific thoughts of committing suicide by overdose. There is a past history of suicide attempts by overdose. The patient has been admitted to the [facility] behavioral health unit and has been placed on suicide observations. She will be encouraged to participate actively in individual, group, activity, and, as required, remote family interventions (telephonically) due to safety concerns related to the COVID-19 crisis. -We will continue to offer the patient olanzapine at her outpatient dose, orally, and we will offer a couple that with an antiemetic given her complaint that it causes nausea. Will be necessary with the patient continues to refuse oral psychiatric medications given the severity of her illness and the unlikelihood that she will recover without the use of antipsychotic/mood stabilizing medications. -We will also continue to offer the patient venlafaxine 75 mg daily for depression. Italics means reviewed. 01/17--compliance to previous regimen is improving and psychotic symptoms appear to be lessening from presentation. (2) Diabetic nephropathy associated with type 2 diabetes mellitus: 01/17/20 -The patient's blood glucose levels will be monitored treated per protocol. Reviewed. (3) Suicidal ideation: 01/17/20 -The patient has been placed on suicide precautions and is being actively monitored and treated on the locked behavioral unit. -She has been referred for individual, group, and activity therapies with a primary goal of helping the patient develop improved individual coping strategies in anticipation of return to the community. -We will encourage the patient to except her antidepressant medication, currently venlafaxine 75 mg daily. -We are also encouraging the patient to accept olanzapine 30 mg at bedtime, while discussing with the patient options of switching to a medication that would allow us to offer her intramuscular Depo medications for convenience and adherence. -We will attempt to address the patient's complaints of side effects from her medication, such as nausea, with medications intended to provide symptomatic relief Reviewed. Inventory Assets Strengths: Intelligence, active support from her family, good relationship with outpatient providers, supportive living environment. Needs: Improved mood; resolution of active suicidality; improved medication adherence; enhanced individual coping strategies. Risk Factors Assessment Male: No : Yes Do You Have Access To A Gun?: No Health Problems: Yes Mental Health Diagnoses: Yes Substance Use Disorders: No Previous Attempt: Yes Previous Attempt; Highly Lethal: No Previous Attempt; Planned: Yes Previous Attempt; Didn't Tell Anyone: No Family History of Suicide: No Previous Psychiatric Hospitalization: Yes Hopelessness: No Smoker: No Protective Factors Assessment Uatsdin Beliefs: No : No Responsible for Young Children: No Employed: No Stable Relationships: Yes Supportive Family: Yes Good Rapport with Provider: Yes Absence of Any Risk Factors Above: No Interval History Chief Complaint "I'm just not taking that insulin today as my feet tingle". Review of Systems Sleep Information Total Hours of Sleep: 5.5 Sleep Comments: awakened at 0515. became tearful, sobbing, talking out loud sounding sad and or angry to someone or about someone. Meal Information Percent Meal Consumed - Breakfast: 100 Percent Meal Consumed - Lunch: 80 Percent Meal Consumed - Dinner: 25 Subjective Subjective Patient was seen & assessed and interval progress reviewed with nursing and social work. Case reviewed as admit with SI, [facility], [facility]ogogic [facility]. She has been in her room alot and accepting some meds/doses of insulin and antipsychotic, no rhyme or reason. Unfortunately due to formulary has to take 3 Zyprexa tabs so resistent to full dose. She did seem more social on evening shift. Today she denies hearing or seeing things, perseverates on her cc which is tingling in her feet which she attributes to needing a break from insulin. Reviewed with patient that this is not the case, some paranoia around fact not on Jardiance and reviewed that non-formulary. She does report suicidal thoughts come and go. Physical Exam Psychiatric Orientation: alert Apperance: appropriately dressed Eye Contact: + fair eye contact Motor Behavior: no abnormal motor movements Speech: normal rate/rhythm/volume of speech Affect: + depressed affect Mood: + depressed mood Thought Process: + perseveration and + concrete thought process Thought Content: + delusions suicidal thoughts, no specific plan or intent on unit, unable to safety plan outside of the hospital. Homicidal Thoughts: denies homicidal thoughts did not appear to be responding to internal stimuli at this time. Cognition: language grossly intact Estimated Intelligence: consistent with education level Insight: + poor insight Judgement: + poor judgement Vital Signs (Past 24 Hours) Last Vital Signs Temp 36.7 C 01/18/20 06:39 Pulse 81 01/18/20 06:40 Resp 20 01/18/20 06:39 BP 116/78 01/18/20 06:40 Pulse Ox 96 01/16/20 18:16 Results & Data ([facility]) Laboratory Results Laboratory Results - last 24 hr 01/17/20 01/17/20 01/17/20 12:52 17:21 21:15 POC Glucose 113 H 106 H 190 H Estimat Average Glucose Hemoglobin A1c 01/18/20 01/18/20 07:45 08:17 POC Glucose 124 H Estimat Average Glucose Pending Hemoglobin A1c Pending Current Inpatient Medications Current Inpatient Medications: Current Inpatient Medications Acetaminophen (Tylenol) 650 mg PO Q4H PRN PRN Reason: Headache or Minor Fever Stop: 02/15/20 17:13 Al Hydrox/Mg Hydrox/Simethicone (Maalox) 30 ml PO Q4H PRN PRN Reason: GI Upset Stop: 02/15/20 17:13 Aspirin (Ecotrin Ectab) 81 mg PO DAILY ANNAMARIA Stop: 02/16/20 08:59 Last Admin: 01/18/20 08:25 Dose: 81 mg Documented by: Atorvastatin Calcium (Lipitor) 80 mg PO QPM ANNAMARIA Stop: 02/15/20 20:59 Last Admin: 01/17/20 21:07 Dose: Not Given Documented by: Benztropine Mesylate (Cogentin) 1 mg PO HS ANNAMARIA Stop: 02/15/20 20:59 Last Admin: 01/17/20 21:08 Dose: Not Given Documented by: Bismuth Subsalicylate (Kaopectate) 15 ml PO PRN PRN PRN Reason: Loose Stool Stop: 02/15/20 17:13 Cyanocobalamin (Vitamin B-12) 1,000 mcg PO DAILY [facility] Stop: 02/16/20 08:59 Last Admin: 01/18/20 08:25 Dose: 1,000 mcg Documented by: Hydrochlorothiazide (Hctz) 25 mg PO DAILY [facility] Stop: 02/16/20 08:59 Last Admin: 01/18/20 08:29 Dose: Not Given Documented by: Hydroxyzine HCl (Vistaril) 50 mg PO HSZ PRN PRN Reason: Insomnia Stop: 02/15/20 17:13 Hydroxyzine HCl (Vistaril) 25 mg PO Q4H PRN PRN Reason: Anxiety Stop: 02/15/20 17:13 Hydroxyzine HCl (Vistaril) 25 mg PO TID [facility] Stop: 02/15/20 20:59 Last Admin: 01/18/20 08:25 Dose: 25 mg Documented by: Insulin Aspart (Novolog Flexpen) 0 units SC ACHS [facility]; Protocol Stop: 02/15/20 21:59 Last Admin: 01/18/20 09:47 Dose: Not Given Documented by: Insulin Glargine (Lantus) 70 units SC BID [facility] Stop: 02/16/20 08:59 Last Admin: 01/18/20 09:47 Dose: Not Given Documented by: Lisinopril (Zestril) 40 mg PO DAILY [facility] Stop: 02/16/20 08:59 Last Admin: 01/18/20 08:30 Dose: Not Given Documented by: Magnesium Hydroxide (Milk Of Magnesia) 30 ml PO DAILY PRN PRN Reason: Constipation Stop: 02/15/20 17:13 Methimazole (Tapazole) 10 mg PO DAILY [facility] Stop: 02/16/20 08:59 Last Admin: 01/18/20 08:25 Dose: 5 mg Documented by: Miscellaneous (Order Awaiting Action) 1 ea N/A QS [facility] Stop: 02/16/20 00:00 Last Admin: 01/18/20 09:21 Dose: Not Given Documented by: Miscellaneous Information (Consult Glycemic Management Pharmacy) 1 ea N/A UD PRN PRN Reason: Consult Stop: 02/15/20 19:14 Olanzapine (Zyprexa) 30 mg PO HS ANNAMARIA Stop: 02/15/20 20:59 Last Admin: 01/17/20 21:08 Dose: 30 mg Documented by: Sodium Chloride (Stanley Nasal) 1 - 2 sprays NA PRN PRN PRN Reason: Nasal Dryness/Congestion Stop: 02/15/20 17:13 Venlafaxine HCl (Effexor Extended Release) 75 mg PO DAILY ANNAM[facility]IA Stop: 02/16/20 08:59 Last Admin: 01/18/20 08:28 Dose: 75 mg Documented by: Mental Health & Subst Abuse Tx Psychiatrist Name of Psychiatrist: Irma Card Psychiatrist's Psychiatric Appointment Comment: [phone] [facility], [place] [address] Therapist Name of Therapist: Irma Holguin Therapist's Date of Therapist Appointment: 01/20/20 Therapy Appointment Comment: [address] [facility], [place] [address] [employer] Principal Name of Estate And Trust Tax Principal: [facility] Phone Number for Estate And Trust Tax Principal: [phone] Post Discharge Appointments Primary Care Physician Name Of Family Doctor: JAYJAY Lira Primary Care Provider Appointment Comment: [address], [place] [address] Contact Information Discharge Discharge Address: [address] [place] [id number] Contact Information Comment: [facility] [place]
--- NOTE | 2020-01-18 13:55 | Pharmacy Report ---
Pharmacy Glycemic Short Note 2 - Date of Service January 18, 2020 - Glycemic Short BSG Results (Last 24 hours): OUTPATIENT ANTIDIABETIC REGIMEN: * Glargine 100 units SQ BID * Victoza * Metformin * Glipizide * A1c = 10 % 10/16/2019 ASSESSMENT: 01/17: * Excellent glycemic control. Patient received a total of 176 units of insulin yesterday. * Patient refused AM Lantus and Novolog. Per discussion with RN; patient reports not wanting to take insulin due to tingling in her feet. Provider addressed these concerns, however patient still refused administration. Nursing staff will attempt to administer PM doses. In the meantime, I will restart home dose of metformin so that the patient is getting some glycemic coverage. If she c ontinues to refuse insulin doses tomorrow, will contact provider to develop alternative plan. 01/16 * BSGs well controlled since admission * Will adjust insulin regimen slightly to match previous admission requirements 01/15 * 54yo T2DM female with A1c above goal. Pt follows with [facility]ocr[facility]. Ou tpatient control is limited by co-morbid conditions (hyperthyroidism and psychiatric issues). * Pt is maintained on multiple oral agents, basal insulin, + GLP-1. Unsure of compliance with regimen. Will hold non-insulin agents for admission and add Novolog bolus insulin per CF/CR in it's place. * Outpatient dosing of insulin is 200 units/day --> will convert this to 50%:50% distribution of basal:prandial and titrate based on BSG trends. * Goal is to maintain BSGs in 120-160 mg/dl range ; patient prefers BSGs a little higher and pt may feel hypo at otherwise normal BSGs based on elevated A1c PLAN FOR INPATIENT GLYCEMIC CONTROL: * Hold outpatient diabetes medications (with the exception of metfomrin * Basal insulin * Continue Lantus 70 units BID * Bolus insulin - tighten CF/CR * NovoLog per scale ACHS or Q6hrs while NPO * Goal Range: Low 110 mg/dL - High 140 mg/dL * Correction Factor: 8 mg/dL/unit * Nutritional / Prandial insulin per carb ratio of 1 unit per 3 grams CHO consumed
[2020-01-18] MEDS: METFORMIN HCL ER 500 MG TABCR PO SCH (17:01)
[2020-01-18] MEDS: BENZTROPINE MESYLATE 1 MG TAB PO SCH (21:21)
[2020-01-18] MEDS: ATORVASTATIN 40 MG TAB PO SCH (21:25)
[2020-01-18] MEDS: OLANZapine 10 MG TAB PO SCH (21:25)
[2020-01-19] MEDS: methIMAzole 5 MG TABLET PO SCH (08:54)
[2020-01-19] MEDS: hydroCHLOROthiazide 25 MG TAB PO SCH (08:54)
[2020-01-19] MEDS: METFORMIN HCL ER 500 MG TABCR PO SCH ×2 (08:55→17:24)
[2020-01-19] MEDS: lisinopriL 40 MG TAB PO SCH (08:55)
[2020-01-19] MEDS: ASPIRIN 81 MG ECTAB PO SCH (08:55)
[2020-01-19] MEDS: CYANOCOBALAMIN 500 MCG TABLET (VITAMIN B-12) PO SCH (08:56)
[2020-01-19] MEDS: INSULIN ASPART 100 UNITS/ML 3 ML PEN SC SCH ×4 (10:03→21:19)
[2020-01-19] MEDS: INSULIN GLARGINE 100 UNIT/ML VIAL SC SCH ×2 (10:04→21:19)
[2020-01-19] MEDS: VENLAFAXINE HCL XR 75 MG CAPXR PO SCH (10:04)
--- NOTE | 2020-01-19 10:17 | Pharmacy Report ---
Pharmacy Glycemic Short Note 2 - Date of Service January 19, 2020 - Glycemic Short BSG Results (Last 24 hours): 01/18/20 01/18/20 01/18/20 12:24 16:54 21:13 POC Glucose 112 H 227 H 252 H 01/19/20 05:58 POC Glucose 125 H OUTPATIENT ANTIDIABETIC REGIMEN: * Glargine 100 units SQ BID * Victoza * Metformin * Glipizide * A1c = 10 % 10/16/2019 ASSESSMENT: 01/18: * Patient continues to refuse insulin despite encouragement from nursing and provider. * Post prandial BSG elevation noted yesterday due to above. * Fasting BSG = 125 mg/dL. I am surprised that fasting remains at goal as patient has missed two doses of Lantus 70 units. * Will restart patient's home oral anti-diabetic agents that we have on formulary. 01/17: * Excellent glycemic control. Patient received a total of 176 units of insulin yesterday. * Patient refused AM Lantus and Novolog. Per discussion with RN; patient reports not wanting to take insulin due to tingling in her feet. Provider addressed these concerns, however patient still refused administration. Nursing staff will attempt to administer PM doses. In the meantime, I will restart home dose of metformin so that the patient is getting some glycemic coverage. If she continues to refuse insulin doses tomorrow, will contact provider to develop alternative plan. 01/16 * BSGs well controlled since admission * Will adjust insulin regimen slightly to match previous admission requirements 01/15 * 54yo T2DM female with A1c above goal. Pt follows with [facility]. Outpatient control is limited by co-morbid conditions (hyperthyroidism and psychiatric issues). * Pt is maintained on multiple oral agents, basal insulin, + GLP-1. Unsure of compliance with regimen. Will hold non-insulin agents for admission and add Novolog bolus insulin per CF/CR in it's place. * Outpatient dosing of insulin is 200 units/day --> will convert this to 50%:50% distribution of basal:prandial and titrate based on BSG trends. * Goal is to maintain BSGs in 120-160 mg/dl range ; patient prefers BSGs a little higher and pt may feel hypo at otherwise normal BSGs based on elevated A1c PLAN FOR INPATIENT GLYCEMIC CONTROL: * Restart metformin 500 mg BIDM and glipizide 10 mg BIDM * Basal insulin (if patient accepts) * Lantus 70 units BID * Bolus insulin (if patient accepts) * NovoLog per scale ACHS or Q6hrs while NPO * Goal Range: Low 110 mg/dL - High 140 mg/dL * Correction Factor: 8 mg/dL/unit * Remove carb ratio while on glipizide
[2020-01-19 11:01] LABS: Estimated Average Glucose 197 mg/dl; Hemoglobin A1C 8.5 % (4.5-5.6)
--- NOTE | 2020-01-19 11:16 | Psychiatric Progress Note ---
Date of Service January 19, 2020 Impression / Recommendations Impression 54-year-old woman, last admitted to in September for schizoaffective disorder depressed type. The patient lives in a residential program in [facility], and also enjoys support from her mother, a retired [employer] professor as well as her daughter, currently a student at [employer]. Her mood has been labile and non-adherent to outpatient meds for no clear reason. She has a history of suicide attempts and she is not yet compliant with insulin and regimen. She is currently on a 201 commitment and taking some meds, so not immediately appropriate for meds over objection, reviewed blood sugars. Reviewed with patient option of converting to a different med for FERNANDEZ and she states she was on Invega sustenna previously and also declines. (1) Schizoaffective disorder, depressive type: 01/17/20 -Currently, the patient is experiencing symptoms consistent with the depressed phase of her schizoaffective disorder, depressed type. She describes depressed mood, difficulty sleeping, feelings of hopelessness, helplessness and worthlessness. She also endorses suicidal ideation with specific thoughts of committing suicide by overdose. There is a past history of suicide attempts by overdose. The patient has been admitted to the [facility] unit and has been placed on suicide observations. She will be encouraged to participate actively in individual, group, activity, and, as required, remote family interventions (telephonically) due to safety concerns related to the COVID-19 crisis. -We will continue to offer the patient olanzapine at her outpatient dose, orally, and we will offer a couple that with an antiemetic given her complaint that it causes nausea. Will be necessary with the patient continues to refuse oral psychiatric medications given the severity of her illness and the unlikelihood that she will recover without the use of antipsychotic/mood stabilizing medications. -We will also continue to offer the patient venlafaxine 75 mg daily for depression. Italics means reviewed. 01/17--compliance to previous regimen is improving and psychotic symptoms appear to be lessening from presentation. 01/18--will d/c Effexor XR as she has refused in am and hopefully can just focus on insulin/diabetes regimen. Zyprexa 20 mg daily and monitor. Prefer lower dose if not taking insulin consistently and here sugars seem pretty controlled due to diet monitoring if not also lower dose. Sporadic use of Effexor XR can result in discontinuation syndrome which makes her more likely to misattribute somatic cues and refuse other medications. (2) Diabetic nephropathy associated with type 2 diabetes mellitus: 01/17/20 -The patient's blood glucose levels will be monitored treated per protocol. Reviewed 01/18/20. (3) Suicidal ideation: 01/17/20 -The patient has been placed on suicide precautions and is being actively monito red and treated on the locked behavioral unit. -She has been referred for individual, group, and activity therapies with a primary goal of helping the patient develop improved individual coping strate gies in anticipation of return to the community. -We will encourage the patient to except her antidepressant medication, currently venlafaxine 75 mg daily. -We are also encouraging the patient to accept olanzapine 30 mg at bedtime, while discussing with the patient options of switching to a medication that would allow us to offer her intramuscular Depo medications for convenience and adherence. -We will attempt to address the patient's complaints of side effects from her medication, such as nausea, with medications intended to provide symptomatic relief Reviewed 01/18/20 Inventory Assets Strengths: Intelligence, active support from her family, good relationship with outpatient providers, supportive living environment. Needs: Improved mood; resolution of active suicidality; improved medication adherence; enhanced individual coping strategies. Risk Factors Assessment Male: No : Yes Do You Have Access To A Gun?: No Health Problems: Yes Mental Health Diagnoses: Yes Substance Use Disorders: No Previous Attempt: Yes Previous Attempt; Highly Lethal: No Previous Attempt; Planned: Yes Previous Attempt; Didn't Tell Anyone: No Family History of Suicide: No Previous Psychiatric Hospitalization: Yes Hopelessness: No Smoker: No Protective Factors Assessment Religion Beliefs: No : No Responsible for Young Children: No Employed: No Stable Relationships: Yes Supportive Family: Yes Good Rapport with Provider: Yes Absence of Any Risk Factors Above: No Interval History Chief Complaint "I'm taking a break from insulin", refused am Effexor Review of Systems Sleep Information Total Hours of Sleep: 6.75 Sleep Comments: awake just before 0600, calm, walking in the benitez areas. feet hurt less(diabetic neuropathy) Meal Information Percent Meal Consumed - Breakfast: 100 Percent Meal Consumed - Lunch: 80 Percent Meal Consumed - Dinner: 100 Subjective Subjective Patient was seen & assessed and interval progress reviewed with nursing and social work. Has mainly taken 20 mg of Zyprexa. Has been in milieu more, particularly in evenings. Sometimes appears to be laughing or talking to self but denies benitez this am. When staff question doesn't say she's suicidal but says things like "I'm concerned about the afterlife". Seems to describe worsening q4 months, seems to blame others who live in her apartment complex for this rather than med compliance. Physical Exam Psychiatric Orientation: alert Apperance: appropriately dressed Motor Behavior: steady gait and station Speech: normal rate/rhythm/volume of speech Affect: + depressed affect Mood: + anxious mood Thought Process: + circumstantial thought process Thought Content: + delusions Suicidal Thoughts: denies suicidal thoughts Homicidal Thoughts: denies homicidal thoughts Hallucinations: no auditory hallucinations and no visual hallucinations Insight: + impaired insight Judgement: + impaired judgement Vital Signs (Past 24 Hours) Last Vital Signs Temp 36.7 C 01/19/20 06:44 Pulse 73 01/19/20 06:45 Resp 18 01/19/20 06:44 BP 129/80 01/19/20 06:45 Pulse Ox 96 01/16/20 18:16 Results & Data ([facility]) Laboratory Results Laboratory Results - last 24 hr 01/18/20 01/18/20 01/18/20 07:45 12:24 16:54 POC Glucose 112 H 227 H Estimat Average Glucose 197 Hemoglobin A1c 8.5 H 01/18/20 01/19/20 21:13 05:58 POC Glucose 252 H 125 H Estimat Average Glucose Hemoglobin A1c Current Inpatient Medications Current Inpatient Medications: Current Inpatient Medications Acetaminophen (Tylenol) 650 mg PO Q4H PRN PRN Reason: Headache or Minor Fever Stop: 02/15/20 17:13 Al Hydrox/Mg Hydrox/Simethicone (Maalox) 30 ml PO Q4H PRN PRN Reason: GI Upset Stop: 02/15/20 17:13 Aspirin (Ecotrin Ectab) 81 mg PO DAILY [facility] Stop: 02/16/20 08:59 Last Admin: 01/19/20 08:55 Dose: 81 mg Documented by: Atorvastatin Calcium (Lipitor) 80 mg PO QPM [facility] Stop: 02/15/20 20:59 Last Admin: 01/18/20 21:25 Dose: Not Given Documented by: Benztropine Mesylate (Cogentin) 1 mg PO HS [facility] Stop: 02/15/20 20:59 Last Admin: 01/18/20 21:21 Dose: 1 mg Documented by: Bismuth Subsalicylate (Kaopectate) 15 ml PO PRN PRN PRN Reason: Loose Stool Stop: 02/15/20 17:13 Cyanocobalamin (Vitamin B-12) 1,000 mcg PO DAILY [facility] Stop: 02/16/20 08:59 Last Admin: 01/19/20 08:56 Dose: 1,000 mcg Documented by: Glipizide (Glucotrol) 10 mg PO BIDM [facility] Stop: 02/18/20 12:29 Hydrochlorothiazide (Hctz) 25 mg PO DAILY [facility] Stop: 02/16/20 08:59 Last Admin: 01/19/20 08:54 Dose: Not Given Documented by: Hydroxyzine HCl (Vistaril) 50 mg PO HSZ PRN PRN Reason: Insomnia Stop: 02/15/20 17:13 Hydroxyzine HCl (Vistaril) 25 mg PO Q4H PRN PRN Reason: Anxiety Stop: 02/15/20 17:13 Hydroxyzine HCl (Vistaril) 25 mg PO TID [facility] Stop: 02/15/20 20:59 Last Admin: 01/19/20 08:56 Dose: 25 mg Documented by: Insulin Aspart (Novolog Flexpen) 0 units SC ACHS [facility]; Protocol Stop: 02/15/20 21:59 Last Admin: 01/19/20 10:03 Dose: Not Given Documented by: Insulin Glargine (Lantus) 70 units SC BID [facility] Stop: 02/16/20 08:59 Last Admin: 01/19/20 10:04 Dose: Not Given Documented by: Lisinopril (Zestril) 40 mg PO DAILY [facility] Stop: 02/16/20 08:59 Last Admin: 01/19/20 08:55 Dose: Not Given Documented by: Magnesium Hydroxide (Milk Of Magnesia) 30 ml PO DAILY PRN PRN Reason: Constipation Stop: 02/15/20 17:13 Metformin HCl (Glucophage Er) 500 mg PO BIDM [facility] Stop: 02/17/20 17:44 Last Admin: 01/19/20 08:55 Dose: 500 mg Documented by: Methimazole (Tapazole) 10 mg PO DAILY [facility] Stop: 02/16/20 08:59 Last Admin: 01/19/20 08:54 Dose: 5 mg Documented by: Miscellaneous (Order Awaiting Action) 1 ea N/A QS [facility] Stop: 02/16/20 00:00 Last Admin: 01/19/20 08:01 Dose: Not Given Documented by: Miscellaneous Information (Consult Glycemic Management Pharmacy) 1 ea N/A UD PRN PRN Reason: Consult Stop: 02/15/20 19:14 Olanzapine (Zyprexa) 20 mg PO HS [facility] Stop: 02/18/20 21:59 Sodium Chloride (Nichols Nasal) 1 - 2 sprays NA PRN PRN PRN Reason: Nasal Dryness/Congestion Stop: 02/15/20 17:13 Mental Health & Subst Abuse Tx Psychiatrist Name of Psychiatrist: Irma Card Psychiatrist's Psychiatric Appointment Comment: [address] [place] [address] Therapist Name of Therapist: Irma Holguin Therapist's Date of Therapist Appointment: 01/20/20 Therapy Appointment Comment: [address] [place] [address] Buddhist Monk Name of Buddhist Monk: [facility] Phone Number for Buddhist Monk: [phone] Post Discharge Appointments Primary Care Physician Name Of Family Doctor: JAYJAY Lira Primary Care Provider Appointment Comment: Sheldon [address]ett, [place] [address] Contact Information Discharge Discharge Address: [address] [place] [id number] Contact Information Comment: [place] [facility]
[2020-01-19] MEDS: glipiZIDE 5 MG TAB PO SCH ×2 (12:54→17:24)
[2020-01-19] MEDS: OLANZapine 20 MG TABLET PO SCH (21:15)
[2020-01-19] MEDS: BENZTROPINE MESYLATE 1 MG TAB PO SCH (21:15)
[2020-01-19] MEDS: ATORVASTATIN 40 MG TAB PO SCH (21:19)
[2020-01-20] MEDS: hydroCHLOROthiazide 25 MG TAB PO SCH (08:37)
[2020-01-20] MEDS: ASPIRIN 81 MG ECTAB PO SCH (08:37)
[2020-01-20] MEDS: METFORMIN HCL ER 500 MG TABCR PO SCH ×2 (08:37→17:26)
[2020-01-20] MEDS: glipiZIDE 5 MG TAB PO SCH ×2 (08:37→17:26)
[2020-01-20] MEDS: methIMAzole 5 MG TABLET PO SCH (08:38)
[2020-01-20] MEDS: CYANOCOBALAMIN 500 MCG TABLET (VITAMIN B-12) PO SCH (08:39)
[2020-01-20] MEDS: lisinopriL 40 MG TAB PO SCH (08:44)
[2020-01-20] MEDS: INSULIN GLARGINE 100 UNIT/ML VIAL SC SCH ×2 (08:45→22:05)
[2020-01-20] MEDS: INSULIN ASPART 100 UNITS/ML 3 ML PEN SC SCH ×4 (08:46→22:06)
--- NOTE | 2020-01-20 12:19 | Psychiatric Progress Note ---
Date of Service January 20, 2020 Impression / Recommendations Impression 54-year-old woman, last admitted to in September for schizoaffective disorder depressed type. Her mood has been labile and non-adherent to outpatient meds/insulin for no clear reason. She is currently on a 201 commitment and taking some meds, so not immediately appropriate for meds over objection, blood sugars only slightly elevated. Reviewed with patient option of converting to a different med for FERNANDEZ and she states she was on Invega sustenna previously and also declines. Impression is that her condition waxes/wanes throughout the day, she is less up front re: symptoms with med prescriber. She has taken Zyprexa 20 mg consistently for a few nights so hopefully symptoms will continue to improve. Inventory Assets Strengths: Intelligence, active support from her family, good relationship with outpatient providers, supportive living environment. Needs: Improved mood; resolution of active suicidality; improved medication adherence; enhanced individual coping strategies. Risk Factors Assessment Male: No : Yes Do You Have Access To A Gun?: No Health Problems: Yes Mental Health Diagnoses: Yes Substance Use Disorders: No Previous Attempt: Yes Previous Attempt; Highly Lethal: No Previous Attempt; Planned: Yes Previous Attempt; Didn't Tell Anyone: No Family History of Suicide: No Previous Psychiatric Hospitalization: Yes Hopelessness: No Smoker: No Protective Factors Assessment Oriental Orthodox Beliefs: No : No Responsible for Young Children: No Employed: No Stable Relationships: Yes Supportive Family: Yes Good Rapport with Provider: Yes Absence of Any Risk Factors Above: No Interval History Chief Complaint "I just have a lot of thoughts, I'd rather not discuss them with you as I just talked with staff, it's just going to take time". Review of Systems Sleep Information Total Hours of Sleep: 6.5 Sleep Comments: awake just before 0600, calm, walking in the benitez areas. feet hurt less(diabetic neuropathy) Meal Information Percent Meal Consumed - Breakfast: 100 Percent Meal Consumed - Lunch: 100 Percent Meal Consumed - Dinner: 100 Subjective Subjective Patient was seen & assessed and interval progress reviewed with nursing. Sanjuanita had some increase in restlessness and anxiety last pm, only took 1/2 of her lipitor. Expressed delusions to staff about someone coming for her family and a voice telling her she is worthless. Reported a visual benitez of a friend tearing her limbs off. She reports sleeping fine and denies sedation this am though certainly looks tired or at least internally preoccupied. Most she will share with me is ongoing belief that her housing is causing her psychiatric issue. Again reinforced compliance with antipsychotic and insulin regimen. Physical Exam Psychiatric Orientation: alert and oriented x 3 Apperance: appropriately groomed Eye Contact: + fair eye contact Motor Behavior: steady gait and station Speech: normal rate/rhythm/volume of speech Affect: + blunted affect Mood: + anxious mood Thought Process: + circumstantial thought process Thought Content: + paranoid and + delusions Suicidal Thoughts: denies suicidal thoughts Homicidal Thoughts: denies homicidal thoughts Hallucinations: + auditory hallucinations (seen talking to self); no visual hallucinations (denies) Cognition: language grossly intact; + attention not intact Insight: + poor insight Judgement: + poor judgement Vital Signs (Past 24 Hours) Last Vital Signs Temp 36.5 C 01/20/20 06:46 Pulse 76 01/20/20 06:47 Resp 18 01/20/20 06:46 BP 136/84 01/20/20 06:47 Pulse Ox 96 01/16/20 18:16 Results & Data ([facility]) Laboratory Results Laboratory Results - last 24 hr 01/19/20 01/19/20 01/19/20 12:22 17:18 20:38 POC Glucose 136 H 156 H 205 H 01/20/20 01/20/20 07:50 11:37 POC Glucose 168 H 175 H Current Inpatient Medications Current Inpatient Medications: Current Inpatient Medications Acetaminophen (Tylenol) 650 mg PO Q4H PRN PRN Reason: Headache or Minor Fever Stop: 02/15/20 17:13 Al Hydrox/Mg Hydrox/Simethicone (Maalox) 30 ml PO Q4H PRN PRN Reason: GI Upset Stop: 02/15/20 17:13 Aspirin (Ecotrin Ectab) 81 mg PO DAILY [facility] Stop: 02/16/20 08:59 Last Admin: 01/20/20 08:37 Dose: 81 mg Documented by: Atorvastatin Calcium (Lipitor) 80 mg PO QPM [facility] Stop: 02/15/20 20:59 Last Admin: 01/19/20 21:19 Dose: 40 mg Documented by: Benztropine Mesylate (Cogentin) 1 mg PO HS [facility] Stop: 02/15/20 20:59 Last Admin: 01/19/20 21:15 Dose: 1 mg Documented by: Bismuth Subsalicylate (Kaopectate) 15 ml PO PRN PRN PRN Reason: Loose Stool Stop: 02/15/20 17:13 Cyanocobalamin (Vitamin B-12) 1,000 mcg PO DAILY [facility] Stop: 02/16/20 08:59 Last Admin: 01/20/20 08:39 Dose: 1,000 mcg Documented by: Glipizide (Glucotrol) 10 mg PO BIDM [facility] Stop: 02/18/20 12:29 Last Admin: 01/20/20 08:37 Dose: 10 mg Documented by: Hydrochlorothiazide (Hctz) 25 mg PO DAILY [facility] Stop: 02/16/20 08:59 Last Admin: 01/20/20 08:37 Dose: 25 mg Documented by: Hydroxyzine HCl (Vistaril) 50 mg PO HSZ PRN PRN Reason: Insomnia Stop: 02/15/20 17:13 Hydroxyzine HCl (Vistaril) 25 mg PO Q4H PRN PRN Reason: Anxiety Stop: 02/15/20 17:13 Hydroxyzine HCl (Vistaril) 25 mg PO TID [facility] Stop: 02/15/20 20:59 Last Admin: 01/20/20 08:39 Dose: 25 mg Documented by: Insulin Aspart (Novolog Flexpen) 0 units SC ACHS [facility]; Protocol Stop: 02/15/20 21:59 Last Admin: 01/20/20 08:46 Dose: Not Given Documented by: Insulin Glargine (Lantus) 70 units SC BID [facility] Stop: 02/16/20 08:59 Last Admin: 01/20/20 08:45 Dose: Not Given Documented by: Lisinopril (Zestril) 40 mg PO DAILY [facility] Stop: 02/16/20 08:59 Last Admin: 01/20/20 08:44 Dose: Not Given Documented by: Magnesium Hydroxide (Milk Of Magnesia) 30 ml PO DAILY PRN PRN Reason: Constipation Stop: 02/15/20 17:13 Metformin HCl (Glucophage Er) 500 mg PO BIDM [facility] Stop: 02/17/20 17:44 Last Admin: 01/20/20 08:37 Dose: 500 mg Documented by: Methimazole (Tapazole) 10 mg PO DAILY [facility] Stop: 02/16/20 08:59 Last Admin: 01/20/20 08:38 Dose: 5 mg Documented by: Miscellaneous (Order Awaiting Action) 1 ea N/A QS [facility] Stop: 02/16/20 00:00 Last Admin: 01/20/20 08:48 Dose: Not Given Documented by: Miscellaneous Information (Consult Glycemic Management Pharmacy) 1 ea N/A UD PRN PRN Reason: Consult Stop: 02/15/20 19:14 Olanzapine (Zyprexa) 20 mg PO HS [facility] Stop: 02/18/20 21:59 Last Admin: 01/19/20 21:15 Dose: 20 mg Documented by: Sodium Chloride (Vance Nasal) 1 - 2 sprays NA PRN PRN PRN Reason: Nasal Dryness/Congestion Stop: 02/15/20 17:13 Mental Health & Subst Abuse Tx Psychiatrist Name of Psychiatrist: Irma Card Psychiatrist's Psychiatric Appointment Comment: [address] [place] [address] Therapist Name of Therapist: Irma Holguin Therapist's Date of Therapist Appointment: 01/20/20 Therapy Appointment Comment: [phone] [place] [address] Heel Curver Name of Heel Curver: [facility] Phone Number for Heel Curver: [phone] Post Discharge Appointments Primary Care Physician Name Of Family Doctor: JAYJAY Lira Primary Care Provider Appointment Comment: Sheld[address] Barnett, [place] [address] Contact Information Discharge Discharge Address: [address] [place] [address], [place] [address] Contact Information Comment: [place] [facility]
--- NOTE | 2020-01-20 14:53 | Pharmacy Report ---
Pharmacy Glycemic Short Note 2 - Date of Service January 20, 2020 - Glycemic Short BSG Results (Last 24 hours): 01/19/20 01/19/20 01/20/20 17:18 20:38 07:50 POC Glucose 156 H 205 H 168 H 01/20/20 11:37 POC Glucose 175 H OUTPATIENT ANTIDIABETIC REGIMEN: * Glargine 100 units SQ BID * Victoza * Metformin * Glipizide * A1c = 10 % 10/16/2019 ASSESSMENT: 01/19: * Patient last agreed to take insulin the evening of 01/16 * Post prandial BSGs improved after resuming glipizide * Fasting BSG trending upward which is expected without basal insulin on board. * Contacted [facility] to discuss regimen. They will attempt to arrange for family member or friend to bring in patients non-formulary anti-diabetic medicines if patient allows. 01/18: * Patient continues to refuse insulin despite encouragement from nursing and provider. * Post prandial BSG elevation noted yesterday due to above. * Fasting BSG = 125 mg/dL. I am surprised that fasting remains at goal as patient has missed two doses of Lantus 70 units. * Will restart patient's home oral anti-diabetic agents that we have on formulary. 01/17: * Excellent glycemic control. Patient received a total of 176 units of insulin yesterday. * Patient refused AM Lantus and Novolog. Per discussion with RN; patient reports not wanting to take insulin due to tingling in her feet. Provider addressed these concerns, however patient still refused administration. Nursing staff will attempt to administer PM doses. In the meantime, I will restart home dose of metformin so that the patient is getting some glycemic coverage. If she continues to refuse insulin doses tomorrow, will contact provider to develop alternative plan. 01/16 * BSGs well controlled since admission * Will adjust insulin regimen slightly to match previous admission requirements 01/15 * 54yo T2DM female with A1c above goal. Pt follows with [facility] Endocrinology. Outpatient control is limited by co-morbid conditions (hyperthyroidism and psychiatric issues). * Pt is maintained on multiple oral agents, basal insulin, + GLP-1. Unsure of compliance with regimen. Will hold non-insulin agents for admission and add Novolog bolus insulin per CF/CR in it's place. * Outpatient dosing of insulin is 200 units/day --> will convert this to 50%:50% distribution of basal:prandial and titrate based on BSG trends. * Goal is to maintain BSGs in 120-160 mg/dl range ; patient prefers BSGs a little higher and pt may feel hypo at otherwise normal BSGs based on elevated A1c PLAN FOR INPATIENT GLYCEMIC CONTROL: * Metformin 500 mg BIDM * Glipizide 10 mg BIDM * Basal insulin (if patient accepts) * Lantus 70 units BID * Bolus insulin (if patient accepts) * NovoLog per scale ACHS or Q6hrs while NPO * Goal Range: Low 110 mg/dL - High 140 mg/dL * Correction Factor: 8 mg/dL/unit * Remove carb ratio while on glipizide PLAN FOR DISCHARGE: * A1c 8.5 % (decreased from 10% on 10/15/19) * Recommendations will depend on patient compliance as she has been refusing insulin since 01/17 AM
[2020-01-20] MEDS: OLANZapine 20 MG TABLET PO SCH (21:08)
[2020-01-20] MEDS: ATORVASTATIN 40 MG TAB PO SCH (21:08)
[2020-01-20] MEDS: BENZTROPINE MESYLATE 1 MG TAB PO SCH (21:08)
[2020-01-21] MEDS: hydroCHLOROthiazide 25 MG TAB PO SCH (08:46)
[2020-01-21] MEDS: METFORMIN HCL ER 500 MG TABCR PO SCH ×2 (08:46→17:34)
[2020-01-21] MEDS: glipiZIDE 5 MG TAB PO SCH ×2 (08:46→17:34)
[2020-01-21] MEDS: INSULIN ASPART 100 UNITS/ML 3 ML PEN SC SCH ×4 (08:46→21:13)
[2020-01-21] MEDS: ASPIRIN 81 MG ECTAB PO SCH (08:46)
[2020-01-21] MEDS: CYANOCOBALAMIN 500 MCG TABLET (VITAMIN B-12) PO SCH (08:47)
[2020-01-21] MEDS: INSULIN GLARGINE 100 UNIT/ML VIAL SC SCH ×2 (08:47→21:12)
[2020-01-21] MEDS: lisinopriL 40 MG TAB PO SCH (08:47)
[2020-01-21] MEDS: methIMAzole 5 MG TABLET PO SCH (08:47)
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
[2020-01-21] MEDS: OLANZapine 20 MG TABLET PO SCH (21:08)
[2020-01-21] MEDS: BENZTROPINE MESYLATE 1 MG TAB PO SCH (21:08)
[2020-01-21] MEDS: ATORVASTATIN 40 MG TAB PO SCH (21:11)
[2020-01-22] MEDS: INSULIN ASPART 100 UNITS/ML 3 ML PEN SC SCH ×4 (08:34→20:37)
[2020-01-22] MEDS: METFORMIN HCL ER 500 MG TABCR PO SCH ×2 (08:35→16:44)
[2020-01-22] MEDS: methIMAzole 5 MG TABLET PO SCH (08:35)
[2020-01-22] MEDS: ASPIRIN 81 MG ECTAB PO SCH (08:35)
[2020-01-22] MEDS: glipiZIDE 5 MG TAB PO SCH ×2 (08:35→16:45)
[2020-01-22] MEDS: hydroCHLOROthiazide 25 MG TAB PO SCH (08:35)
[2020-01-22] MEDS: INSULIN GLARGINE 100 UNIT/ML VIAL SC SCH ×2 (08:35→20:38)
[2020-01-22] MEDS: CYANOCOBALAMIN 500 MCG TABLET (VITAMIN B-12) PO SCH (08:36)
[2020-01-22] MEDS: lisinopriL 40 MG TAB PO SCH (08:37)
--- NOTE | 2020-01-22 12:25 | Psychiatric Progress Note ---
Date of Service January 22, 2020 Impression / Recommendations Impression 54-year-old female with schizoaffective disorder depressed type, who was last on the unit several months ago, and presented with mood instability, paranoia, hallucinations, delusions of reference, and suicidality in the context of nonadherence with outpatient meds/insulin for no clear reason. She is admitted voluntarily, and willing to take some medications and attend groups. She is refusing insulin, and blood sugar has been slightly elevated. Reviewed with patient option of converting to a different med for FERNANDEZ, which she is declining. She is improving with resumption of olanzapine, but is only willing to take 20 mg at bedtime and does not want the dose titrated further. She did, however, agree to a 5mg dose of olanzapine that can be offered/requested as needed for paranoia/delusions. We will need to explore her outpatient supports and get collateral information from her mother and case reviewer. (1) Schizoaffective disorder, depressive type: 01/17/20 -Currently, the patient is experiencing symptoms consistent with the depressed phase of her schizoaffective disorder, depressed type. She describes depressed mood, difficulty sleeping, feelings of hopelessness, helplessness and worthlessness. She also endorses suicidal ideation with specific thoughts of committing suicide by overdose. There is a past history of suicide attempts by overdose. The patient has been admitted to the [facility] behavioral health unit and has been placed on suicide observations. She will be encouraged to participate actively in individual, group, activity, and, as required, remote family interventions (telephonically) due to safety concerns related to the COVID-19 crisis. -We will continue to offer the patient olanzapine at her outpatient dose, orally, and we will offer a couple that with an antiemetic given her complaint that it causes nausea. Will be necessary with the patient continues to refuse oral psychiatric medications given the severity of her illness and the unlikelihood that she will recover without the use of antipsychotic/mood stabilizing medications. -We will also continue to offer the patient venlafaxine 75 mg daily for depression. 01/17--compliance to previous regimen is improving and psychotic symptoms appear to be lessening from presentation. 01/18--will d/c Effexor XR as she has refused in am and hopefully can just focus on insulin/diabetes regimen. Zyprexa 20 mg daily and monitor. Prefer lower dose if not taking insulin consistently and here sugars seem pretty controlled due to diet monitoring if not also lower dose. Sporadic use of Effexor XR can result in discontinuation syndrome which makes her more likely to misattribute somatic cues and refuse other medications. 01/20--continue olanzapine. Continue to encourage medication adherence, patient had been refusing venlafaxine, but now recognizing that she has been more depressed and anxious and may be willing to resume it, but will need to be wi lling to take it daily. --Reviewed fasting labs: Hemoglobin A1c 8.5%, FLP from 06/2019 was normal with the exception of triglycerides 319. 01/21 --Continue olanzapine 20mg at HS. She is willing for a dose of 5mg to be offered/requested as needed for paranoia/delusions. --Pt continues to report delusions and anxiety to staff, reports ongoing suicidality related to these delusional thoughts --Pt will still need a family meeting involving her outpatient supports, will continue to discuss though she has not yet been ready to participate in this just yet (2) Suicidal ideation: 01/17/20 -The patient has been placed on suicide precautions and is being actively monitored and treated on the locked behavioral unit. -She has been referred for individual, group, and activity therapies with a primary goal of helping the patient develop improved individual coping strategies in anticipation of return to the community. -We will encourage the patient to except her antidepressant medication, currently venlafaxine 75 mg daily. -We are also encouraging the patient to accept olanzapine 30 mg at bedtime, while discussing with the patient options of switching to a medication that would allow us to offer her intramuscular Depo medications for convenience and adherence. -We will attempt to address the patient's complaints of side effects from her medication, such as nausea, with medications intended to provide symptomatic relief Reviewed 01/18/2001/21 - Reports ongoing SI related to her continued delusions/paranoia (3) Diabetic nephropathy associated with type 2 diabetes mellitus: 01/17/20 -The patient's blood glucose levels will be monitored treated per protocol. Reviewed 01/18/20. 01/20 -patient is taking glipizide and metformin, but refusing insulin. Glucose levels have been in the 120s to 250s. Hemoglobin A1c 8.5%, with estimated average glucose of 197. Inventory Assets Strengths: Intelligence, active support from her family, good relationship with outpatient providers, supportive living environment. Needs: Improved mood; resolution of active suicidality; improved medication adherence; enhanced individual coping strategies. Risk Factors Assessment Male: No : Yes Do You Have Access To A Gun?: No Health Problems: Yes Mental Health Diagnoses: Yes Substance Use Disorders: No Previous Attempt: Yes Previous Attempt; Highly Lethal: No Previous Attempt; Planned: Yes Previous Attempt; Didn't Tell Anyone: No Family History of Suicide: No Previous Psychiatric Hospitalization: Yes Hopelessness: No Smoker: No Protective Factors Assessment [employer] Beliefs: No : No Responsible for Young Children: No Employed: No Stable Relationships: Yes Supportive Family: Yes Good Rapport with Provider: Yes Absence of Any Risk Factors Above: No Interval History Identifying Information AMADO OLSON is a 54-year-old F who lives in a residential facility, [facility], in [place], has a history of schizoaffective disorder, depressed type, and was admitted on 01/16/20 17:14 on a 201 voluntary commitment after she presented to the emergency department with depression, suicidal ideation, and a plan to overdose. Chief Complaint "I'm having a difficult time." Review of Systems Notes Constitutional: denied Cardiovascular: denied Respiratory: denied Gastrointestinal: denied Neurological: denied Psychiatric: denies symptoms other than stated above Total of at least 10 systems reviewed, pertinent positives as above and in HPI. Sleep Information Total Hours of Sleep: 7.5 Sleep Comments: pt appeared to sleep 1.5 hrs during evening shift. pt awoke x1 and requested an orange juice. pt pacing the hallway for about 5 minutes.pt on q-15 minute checks Meal Information Percent Meal Consumed - Breakfast: 100 Percent Meal Consumed - Lunch: 100 Percent Meal Consumed - Dinner: 100 Subjective Subjective Patient was seen & assessed and interval progress reviewed with treatment team. Staff report the patient has been rather labile. She continues to refuse various prescribed medications, specifically her insulin. Pt will require a family meeting with her case reviewer or other outpatient supports to discuss discharge and safety planning. Pt was seen today to assess progress since admission. Pt provides verbal consent to allow Stacy Myers PA-C to observe today's encounter. Pt states "I'm having a difficult time." Pt states "I'm having a lot of paranoia, thinking people are stealing from me, stealing off my body. There are people from the second World War who are trying to steal from me. I think I did things to hurt my mother and my family and now they are trying to kill me." When asked who patient believes "they" are, she states "I believe that people are threatened by my ability with telekinetics and that there is someone, some being on the sun that controls these things and is making people target me." Pt states that when she is feeling well psychiatrically, she is able to reality test these thoughts but that this has been more difficult recently. She states "I do wonder why this is happening and why it feels so real to me, but I know that it's unusual." When think about this paranoia, she states "I'm just tuck right now, it gets me suicidal. Sick and very angry." Pt does endorse SI, stating it is "quite strong" today. Pt denies specific temptations to harm herself here on our unit, but is unable to contract for safety outside of the hospital setting. Pt did verify that she was prescribed a higher dose of olanzapine on an outpatient basis than she has agreed to taking here. Pt states "the higher dose made me restless." We did discuss utilizing a 5mg dose of olanzapine on an as needed basis to target thoughts on days like today when she is having more difficulty. Pt is agreeable with this plan. Pt denies other needs or concerns at this time. Physical Exam Psychiatric Orientation: alert, oriented x 3 and cooperative Apperance: appropriately dressed, appropriately groomed and appeared stated age Eye Contact: good eye contact Motor Behavior: no abnormal motor movements (observed while sitting on edge of bed) Speech: normal rate/rhythm/volume of speech Affect: + depressed affect and + anxious affect Mood: + depressed mood and + anxious mood Thought Process: goal directed thought process and + concrete thought process Thought Content: + preoccupation, + paranoid, + delusions, + ideas of reference, + hopelessness and + guilt Suicidal Thoughts: + reports suicidal thoughts (reports SI as "quite strong" today) Homicidal Thoughts: denies homicidal thoughts Hallucinations: + auditory hallucinations Cognition: attention grossly intact and language grossly intact Insight: + impaired insight Judgement: + impaired judgement Vital Signs (Past 24 Hours) Last Vital Signs Temp 36.8 C 01/22/20 06:33 Pulse 90 01/22/20 06:33 Resp 18 01/22/20 06:33 BP 125/78 01/22/20 06:33 Pulse Ox 96 01/16/20 18:16 Results & Data ([facility]) Laboratory Results Laboratory Results - last 24 hr 01/21/20 01/21/20 01/21/20 12:39 17:07 20:54 POC Glucose 181 H 231 H 227 H 01/22/20 08:07 POC Glucose 227 H Current Inpatient Medications Current Inpatient Medications: Current Inpatient Medications Acetaminophen (Tylenol) 650 mg PO Q4H PRN PRN Reason: Headache or Minor Fever Stop: 02/15/20 17:13 Al Hydrox/Mg Hydrox/Simethicone (Maalox) 30 ml PO Q4H PRN PRN Reason: GI Upset Stop: 02/15/20 17:13 Aspirin (Ecotrin Ectab) 81 mg PO DAILY [facility] Stop: 02/16/20 08:59 Last Admin: 01/22/20 08:35 Dose: 81 mg Documented by: Atorvastatin Calcium (Lipitor) 80 mg PO QPM ANNAMARIA Stop: 02/15/20 20:59 Last Admin: 01/21/20 21:11 Dose: 40 mg Documented by: Benztropine Mesylate (Cogentin) 1 mg PO HS [facility] Stop: 02/15/20 20:59 Last Admin: 01/21/20 21:08 Dose: 1 mg Documented by: Bismuth Subsalicylate (Kaopectate) 15 ml PO PRN PRN PRN Reason: Loose Stool Stop: 02/15/20 17:13 Cyanocobalamin (Vitamin B-12) 1,000 mcg PO DAILY ANNAMARIA Stop: 02/16/20 08:59 Last Admin: 01/22/20 08:36 Dose: 1,000 mcg Documented by: Glipizide (Glucotrol) 10 mg PO BIDM [facility] Stop: 02/18/20 12:29 Last Admin: 01/22/20 08:35 Dose: 10 mg Documented by: Hydrochlorothiazide (Hctz) 25 mg PO DAILY [facility] Stop: 02/16/20 08:59 Last Admin: 01/22/20 08:35 Dose: 25 mg Documented by: Hydroxyzine HCl (Vistaril) 50 mg PO HSZ PRN PRN Reason: Insomnia Stop: 02/15/20 17:13 Hydroxyzine HCl (Vistaril) 25 mg PO Q4H PRN PRN Reason: Anxiety Stop: 02/15/20 17:13 Last Admin: 01/22/20 03:11 Dose: 25 mg Documented by: Hydroxyzine HCl (Vistaril) 25 mg PO TID [facility] Stop: 02/15/20 20:59 Last Admin: 01/22/20 08:36 Dose: 25 mg Documented by: Insulin Aspart (Novolog Flexpen) 0 units SC ACHS [facility]; Protocol Stop: 02/15/20 21:59 Last Admin: 01/22/20 08:34 Dose: Not Given Documented by: Insulin Glargine (Lantus) 70 units SC BID [facility] Stop: 02/16/20 08:59 Last Admin: 01/22/20 08:35 Dose: Not Given Documented by: Lisinopril (Zestril) 40 mg PO DAILY [facility] Stop: 02/16/20 08:59 Last Admin: 01/22/20 08:37 Dose: 40 mg Documented by: Magnesium Hydroxide (Milk Of Magnesia) 30 ml PO DAILY PRN PRN Reason: Constipation Stop: 02/15/20 17:13 Metformin HCl (Glucophage Er) 500 mg PO BIDM [facility] Stop: 02/17/20 17:44 Last Admin: 01/22/20 08:35 Dose: 500 mg Documented by: Methimazole (Tapazole) 10 mg PO DAILY [facility] Stop: 02/16/20 08:59 Last Admin: 01/22/20 08:35 Dose: 5 mg Documented by: Miscellaneous (Order Awaiting Action) 1 ea N/A QS [facility] Stop: 02/16/20 00:00 Last Admin: 01/22/20 08:23 Dose: Not Given Documented by: Olanzapine (Zyprexa) 20 mg PO HS [facility] Stop: 02/18/20 21:59 Last Admin: 01/21/20 21:08 Dose: 20 mg Documented by: Olanzapine (Zyprexa) 5 mg PO DAILY PRN PRN Reason: psychosis/anxiety Stop: 02/22/20 08:59 Sodium Chloride ([place] Nasal) 1 - 2 sprays NA PRN PRN PRN Reason: Nasal Dryness/Congestion Stop: 02/15/20 17:13 Mental Health & Subst Abuse Tx Psychiatrist Name of Psychiatrist: Irma Card Psychiatrist's Psychiatric Appointment Comment: [phone] [place] [address] Therapist Name of Therapist: Irma Holguin Therapist's Date of Therapist Appointment: 01/20/20 Therapy Appointment Comment: [phone], [place] [id number] Animal Therapist Name of Animal Therapist: [facility] Phone Number for Animal Therapist: [phone] Post Discharge Appointments Primary Care Physician Name Of Family Doctor: JAYJAY Lira Primary Care Provider Appointment Comment: [address], [place] [address] Contact Information Discharge Discharge Address: [address] [place] [address], [place] [address] Contact Information Comment: [facility]
[2020-01-22] MEDS: OLANZapine 5 MG TABLET PO PRN (15:30)
[2020-01-22] MEDS: OLANZapine 20 MG TABLET PO SCH (20:36)
[2020-01-22] MEDS: BENZTROPINE MESYLATE 1 MG TAB PO SCH (20:38)
[2020-01-22] MEDS: ATORVASTATIN 40 MG TAB PO SCH (20:38)
[2020-01-23] MEDS: INSULIN ASPART 100 UNITS/ML 3 ML PEN SC SCH ×4 (09:01→21:10)
[2020-01-23] MEDS: CYANOCOBALAMIN 500 MCG TABLET (VITAMIN B-12) PO SCH (09:05)
[2020-01-23] MEDS: ASPIRIN 81 MG ECTAB PO SCH (09:05)
[2020-01-23] MEDS: methIMAzole 5 MG TABLET PO SCH (09:05)
[2020-01-23] MEDS: glipiZIDE 5 MG TAB PO SCH ×2 (09:05→17:24)
[2020-01-23] MEDS: METFORMIN HCL ER 500 MG TABCR PO SCH ×2 (09:05→17:24)
[2020-01-23] MEDS: hydroCHLOROthiazide 25 MG TAB PO SCH (09:05)
[2020-01-23] MEDS: INSULIN GLARGINE 100 UNIT/ML VIAL SC SCH ×2 (09:06→21:14)
[2020-01-23] MEDS: lisinopriL 40 MG TAB PO SCH (09:06)
--- NOTE | 2020-01-23 09:48 | Psychiatric Progress Note ---
Date of Service January 23, 2020 Impression / Recommendations Impression 55-year-old female with schizoaffective disorder depressed type, who was last on the unit several months ago, and presented with mood instability, paranoia, hallucinations, delusions of reference, and suicidality in the context of nonadherence with outpatient meds/insulin for no clear reason. She is admitted voluntarily, and willing to take some medications and attend groups. She is refusing insulin, and blood sugar has been slightly elevated. Reviewed with patient option of converting to a different med for FERNANDEZ, which she is declining. She is improving with resumption of olanzapine, but is only willing to take 20 mg at bedtime and does not want the dose titrated further. She did, however, agree to a 5mg dose of olanzapine that can be offered/requested as needed for paranoia/delusions. We will need to explore her outpatient supports and get collateral information from her mother and correctional casework specialist. (1) Schizoaffective disorder, depressive type: 01/17/20 -Currently, the patient is experiencing symptoms consistent with the depressed phase of her schizoaffective disorder, depressed type. She describes depressed mood, difficulty sleeping, feelings of hopelessness, helplessness and worthlessness. She also endorses suicidal ideation with specific thoughts of committing suicide by overdose. There is a past history of suicide attempts by overdose. The patient has been admitted to the [facility] behavioral health unit and has been placed on suicide observations. She will be encouraged to participate actively in individual, group, activity, and, as required, remote family interventions (telephonically) due to safety concerns related to the COVID-19 crisis. -We will continue to offer the patient olanzapine at her outpatient dose, orally, and we will offer a couple that with an antiemetic given her complaint that it causes nausea. Will be necessary with the patient continues to refuse oral psychiatric medications given the severity of her illness and the unlikelihood that she will recover without the use of antipsychotic/mood stabilizing medications. -We will also continue to offer the patient venlafaxine 75 mg daily for depression. 01/17--compliance to previous regimen is improving and psychotic symptoms appear to be lessening from presentation. 01/18--will d/c Effexor XR as she has refused in am and hopefully can just focus on insulin/diabetes regimen. Zyprexa 20 mg daily and monitor. Prefer lower dose if not taking insulin consistently and here sugars seem pretty controlled due to diet monitoring if not also lower dose. Sporadic use of Effexor XR can result in discontinuation syndrome which makes her more likely to misattribute somatic cues and refuse other medications. 01/20--continue olanzapine. Continue to encourage medication adherence, patient had been refusing venlafaxine, but now recognizing that she has been more depressed and anxious and may be willing to resume it, but will need to be wi lling to take it daily. --Reviewed fasting labs: Hemoglobin A1c 8.5%, FLP from 06/2019 was normal with the exception of triglycerides 319. 01/21 --Continue olanzapine 20mg at HS. She is willing for a dose of 5mg to be offered/requested as needed for paranoia/delusions. --Pt continues to report delusions and anxiety to staff, reports ongoing suicidality related to these delusional thoughts --Pt will still need a family meeting involving her outpatient supports, will continue to discuss though she has not yet been ready to participate in this just yet 01/22 - Continue current medication regimen, pt reporting prn olanzapine and hydroxyzine has been beneficial - Continues to report delusions, but feeling more comfortable reality testing after a phone conversation with her therapist yesterday afternoon - Pt agreeable with scheduling a family meeting with her correctional casework specialist, declining to involve mother in treatment. (2) Suicidal ideation: 01/17/20 -The patient has been placed on suicide precautions and is being actively monitored and treated on the locked behavioral unit. -She has been referred for individual, group, and activity therapies with a primary goal of helping the patient develop improved individual coping strategies in anticipation of return to the community. -We will encourage the patient to except her antidepressant medication, currently venlafaxine 75 mg daily. -We are also encouraging the patient to accept olanzapine 30 mg at bedtime, while discussing with the patient options of switching to a medication that would allow us to offer her intramuscular Depo medications for convenience and adherence. -We will attempt to address the patient's complaints of side effects from her medication, such as nausea, with medications intended to provide symptomatic relief Reviewed 01/18/2001/21 - Reports ongoing SI related to her continued delusions/paranoia 01/22 - Ongoing SI (3) Diabetic nephropathy associated with type 2 diabetes mellitus: 01/17/20 -The patient's blood glucose levels will be monitored treated per protocol. Reviewed 01/18/20. 01/20 -patient is taking glipizide and metformin, but refusing insulin. Glucose levels have been in the 120s to 250s. Hemoglobin A1c 8.5%, with estimated average glucose of 197. Inventory Assets Strengths: Intelligence, active support from her family, good relationship with outpatient providers, supportive living environment. Needs: Improved mood; resolution of active suicidality; improved medication adherence; enhanced individual coping strategies. Risk Factors Assessment Male: No : Yes Do You Have Access To A Gun?: No Health Problems: Yes Mental Health Diagnoses: Yes Substance Use Disorders: No Previous Attempt: Yes Previous Attempt; Highly Lethal: No Previous Attempt; Planned: Yes Previous Attempt; Didn't Tell Anyone: No Family History of Suicide: No Previous Psychiatric Hospitalization: Yes Hopelessness: No Smoker: No Protective Factors Assessment Yazidi Beliefs: No : No Responsible for Young Children: No Employed: No Stable Relationships: Yes Supportive Family: Yes Good Rapport with Provider: Yes Absence of Any Risk Factors Above: No Interval History Identifying Information AMADO OLSON is a 55-year-old F who lives in a residential facility, [facility], in [place], has a history of schizoaffective disorder, depressed type, and was admitted on 01/16/20 17:14 on a 201 voluntary commitment after she presented to the emergency department with depression, suicidal ideation, and a plan to overdose. Chief Complaint "Oh, I'm doing alright. Thank you." Review of Systems Notes Constitutional: denied Cardiovascular: denied Respiratory: denied Gastrointestinal: denied Neurological: denied Psychiatric: denies symptoms other than stated above Total of at least 10 systems reviewed, pertinent positives as above and in HPI. Sleep Information Total Hours of Sleep: 9 Sleep Comments: pt appeared to sleep 1.5 hrs during evening shift. pt awoke x1 and requested an orange juice. pt pacing the hallway for about 5 minutes.pt on q-15 minute checks Meal Information Percent Meal Consumed - Breakfast: 100 Percent Meal Consumed - Lunch: 90 Percent Meal Consumed - Dinner: 100 Subjective Subjective Patient was seen & assessed and interval progress reviewed with nursing and social work. Staff report the patient did have a phone conversation with her therapist yesterday. She is agreeable with having a support meeting with her correctional casework specialist, but is declining to involve her mother. Pt did verbalize to staff that she continues to have delusions and is now reporting that she is hearing bugs and gnats talking to her. Pt was seen today to assess progress since admission. Pt states that she is "doing alright" this morning. She indicates that her mood improved over the course of the day yesterday, but admits that this morning is rather difficult as well. Pt states it was helpful to have a phone session with her outpatient therapist yesterday. Pt does verbalize ongoing delusional thoughts, but admits that a prn of olanzapine was helpful at allowing her to calm down and better reality test. Pt reports ongoing SI. She denies concerns related to medication and continues to benefit from prn hydroxyzine as well. Pt denies other needs or concerns at this time. Physical Exam Psychiatric Orientation: alert, oriented x 3 and cooperative (and pleasant) Apperance: appropriately dressed, appropriately groomed and appeared stated age Eye Contact: good eye contact Motor Behavior: steady gait and station and no abnormal motor movements Speech: normal rate/rhythm/volume of speech Affect: + blunted affect Mood: + depressed mood and + anxious mood Thought Process: goal directed thought process (but not logical) and + perseveration Thought Content: + preoccupation, + paranoid, + delusions and + persecution Suicidal Thoughts: + reports suicidal thoughts and + reports suicidal intent Homicidal Thoughts: denies homicidal thoughts Hallucinations: + auditory hallucinations (reporting "bugs" and "gnats" are speaking to her at times); no visual hallucinations Cognition: attention grossly intact and language grossly intact Estimated Intelligence: consistent with education level Insight: + impaired insight (though appearing somewhat improved at time of interview) Judgement: + impaired judgement Vital Signs (Past 24 Hours) Last Vital Signs Temp 36.6 C 01/23/20 06:00 Pulse 87 01/23/20 06:36 Resp 18 01/23/20 06:00 BP 109/75 01/23/20 06:36 Pulse Ox 96 01/16/20 18:16 Results & Data ([facility]) Laboratory Results Laboratory Results - last 24 hr 01/22/20 01/22/20 01/22/20 12:34 16:41 20:26 POC Glucose 238 H 208 H 249 H 01/23/20 08:46 POC Glucose 260 H Current Inpatient Medications Current Inpatient Medications: Current Inpatient Medications Acetaminophen (Tylenol) 650 mg PO Q4H PRN PRN Reason: Headache or Minor Fever Stop: 02/15/20 17:13 Al Hydrox/Mg Hydrox/Simethicone (Maalox) 30 ml PO Q4H PRN PRN Reason: GI Upset Stop: 02/15/20 17:13 Aspirin (Ecotrin Ectab) 81 mg PO DAILY [facility] Stop: 02/16/20 08:59 Last Admin: 01/23/20 09:05 Dose: 81 mg Documented by: Atorvastatin Calcium (Lipitor) 80 mg PO QPM [facility] Stop: 02/15/20 20:59 Last Admin: 01/22/20 20:38 Dose: Not Given Documented by: Benztropine Mesylate (Cogentin) 1 mg PO HS [facility] Stop: 02/15/20 20:59 Last Admin: 01/22/20 20:38 Dose: Not Given Documented by: Bismuth Subsalicylate (Kaopectate) 15 ml PO PRN PRN PRN Reason: Loose Stool Stop: 02/15/20 17:13 Cyanocobalamin (Vitamin B-12) 1,000 mcg PO DAILY [facility] Stop: 02/16/20 08:59 Last Admin: 01/23/20 09:05 Dose: 1,000 mcg Documented by: Glipizide (Glucotrol) 10 mg PO BIDM [facility] Stop: 02/18/20 12:29 Last Admin: 01/23/20 09:05 Dose: 10 mg Documented by: Hydrochlorothiazide (Hctz) 25 mg PO DAILY [facility] Stop: 02/16/20 08:59 Last Admin: 01/23/20 09:05 Dose: 25 mg Documented by: Hydroxyzine HCl (Vistaril) 50 mg PO HSZ PRN PRN Reason: Insomnia Stop: 02/15/20 17:13 Hydroxyzine HCl (Vistaril) 25 mg PO Q4H PRN PRN Reason: Anxiety Stop: 02/15/20 17:13 Last Admin: 01/22/20 03:11 Dose: 25 mg Documented by: Hydroxyzine HCl (Vistaril) 25 mg PO TID [facility] Stop: 02/15/20 20:59 Last Admin: 01/23/20 09:08 Dose: 25 mg Documented by: Insulin Aspart (Novolog Flexpen) 0 units SC [facility]; Protocol Stop: 02/15/20 21:59 Last Admin: 01/23/20 09:01 Dose: Not Given Documented by: Insulin Glargine (Lantus) 70 units SC BID [facility] Stop: 02/16/20 08:59 Last Admin: 01/23/20 09:06 Dose: Not Given Documented by: Lisinopril (Zestril) 40 mg PO DAILY [facility] Stop: 02/16/20 08:59 Last Admin: 01/23/20 09:06 Dose: Not Given Documented by: Magnesium Hydroxide (Milk Of Magnesia) 30 ml PO DAILY PRN PRN Reason: Constipation Stop: 02/15/20 17:13 Metformin HCl (Glucophage Er) 500 mg PO BIDM [facility] Stop: 02/17/20 17:44 Last Admin: 01/23/20 09:05 Dose: 500 mg Documented by: Methimazole (Tapazole) 10 mg PO DAILY [facility] Stop: 02/16/20 08:59 Last Admin: 01/23/20 09:05 Dose: 5 mg Documented by: Miscellaneous (Order Awaiting Action) 1 ea N/A QS [facility] Stop: 02/16/20 00:00 Last Admin: 01/23/20 09:01 Dose: Not Given Documented by: Olanzapine (Zyprexa) 20 mg PO HS [facility] Stop: 02/18/20 21:59 Last Admin: 01/22/20 20:36 Dose: 20 mg Documented by: Olanzapine (Zyprexa) 5 mg PO DAILY PRN PRN Reason: psychosis/anxiety Stop: 02/22/20 08:59 Last Admin: 01/22/20 15:30 Dose: 5 mg Documented by: Sodium Chloride ([place] Nasal) 1 - 2 sprays NA PRN PRN PRN Reason: Nasal Dryness/Congestion Stop: 02/15/20 17:13 Mental Health & Subst Abuse Tx Psychiatrist Name of Psychiatrist: Irma Card Psychiatrist's Psychiatric Appointment Comment: [id number] [place] [address] Therapist Name of Therapist: Irma Holguin Therapist's Date of Therapist Appointment: 01/20/20 Therapy Appointment Comment: [id number] [place] [address] Quarry Worker Name of Quarry Worker: [facility] Service [facility] [place] Phone Number for Quarry Worker: [phone] Post Discharge Appointments Primary Care Physician Name Of Family Doctor: JAYJAY Lira Primary Care Provider Appointment Comment: Sheldon Barnett, [place] [address] Contact Information Discharge Discharge Address: [address] [place] [address], [place] [address] Contact Information Comment: [facility]
[2020-01-23] MEDS: ATORVASTATIN 40 MG TAB PO SCH (21:07)
[2020-01-23] MEDS: BENZTROPINE MESYLATE 1 MG TAB PO SCH (21:09)
[2020-01-23] MEDS: OLANZapine 20 MG TABLET PO SCH (21:10)
[2020-01-24] MEDS ORDERED: INSULIN ASPART 100 UNITS/ML 3 ML PEN SC SCH (02:00)
[2020-01-24] MEDS: glipiZIDE 5 MG TAB PO SCH ×2 (09:00→17:13)
[2020-01-24] MEDS: lisinopriL 40 MG TAB PO SCH (09:01)
[2020-01-24] MEDS: methIMAzole 5 MG TABLET PO SCH (09:01)
[2020-01-24] MEDS: CYANOCOBALAMIN 500 MCG TABLET (VITAMIN B-12) PO SCH (09:01)
[2020-01-24] MEDS: hydroCHLOROthiazide 25 MG TAB PO SCH (09:01)
[2020-01-24] MEDS: FENOFIBRATE NANOCRYSTALLIZED 145 MG TABLET PO SCH (09:01)
[2020-01-24] MEDS: ASPIRIN 81 MG ECTAB PO SCH (09:01)
[2020-01-24] MEDS: METFORMIN HCL ER 500 MG TABCR PO SCH ×2 (09:01→17:20)
[2020-01-24] MEDS: INSULIN ASPART 100 UNITS/ML 3 ML PEN SC SCH ×4 (09:13→21:10)
[2020-01-24] MEDS: INSULIN GLARGINE 100 UNIT/ML VIAL SC SCH ×2 (09:15→21:10)
--- NOTE | 2020-01-24 13:37 | Psychiatric Progress Note ---
Date of Service January 24, 2020 Impression / Recommendations Impression 55-year-old female with schizoaffective disorder depressed type, who was last on the unit several months ago, and presented with mood instability, paranoia, hallucinations, delusions of reference, and suicidality in the context of nonadherence with outpatient meds/insulin for no clear reason. She is admitted voluntarily, and willing to take some medications and attend groups. She is refusing insulin, and blood sugar has been slightly elevated. Reviewed with patient option of converting to a different med for FERNANDEZ, which she is declining. She is improving with resumption of olanzapine, but is only willing to take 20 mg at bedtime and does not want the dose titrated further. She did, however, agree to a 5mg dose of olanzapine that can be offered/requested as needed for paranoia/delusions. We will need to explore her outpatient supports and get collateral information from her mother and pillowcase cleaner. (1) Schizoaffective disorder, depressive type: 01/17/20 -Currently, the patient is experiencing symptoms consistent with the depressed phase of her schizoaffective disorder, depressed type. She describes depressed mood, difficulty sleeping, feelings of hopelessness, helplessness and worthlessness. She also endorses suicidal ideation with specific thoughts of committing suicide by overdose. There is a past history of suicide attempts by overdose. The patient [facility] and has been placed on suicide observations. She will be encouraged to participate actively in individual, group, activity, and, as required, remote family interventions (telephonically) due to safety concerns related to the COVID-19 crisis. -We will continue to offer the patient olanzapine at her outpatient dose, orally, and we will offer a couple that with an antiemetic given her complaint that it causes nausea. Will be necessary with the patient continues to refuse oral psychiatric medications given the severity of her illness and the unlikelihood that she will recover without the use of antipsychotic/mood stabilizing medications. -We will also continue to offer the patient venlafaxine 75 mg daily for depression. 01/17--compliance to previous regimen is improving and psychotic symptoms appear to be lessening from presentation. 01/18--will d/c Effexor XR as she has refused in am and hopefully can just focus on insulin/diabetes regimen. Zyprexa 20 mg daily and monitor. Prefer lower dose if not taking insulin consistently and here sugars seem pretty controlled due to diet monitoring if not also lower dose. Sporadic use of Effexor XR can result in discontinuation syndrome which makes her more likely to misattribute somatic cues and refuse other medications. 01/20--continue olanzapine. Continue to encourage medication adherence, patient had been refusing venlafaxine, but now recognizing that she has been more depressed and anxious and may be willing to resume it, but will need to be wi lling to take it daily. --Reviewed fasting labs: Hemoglobin A1c 8.5%, FLP from 06/2019 was normal with the exception of triglycerides 319. 01/21 --Continue olanzapine 20mg at HS. She is willing for a dose of 5mg to be offered/requested as needed for paranoia/delusions. --Pt continues to report delusions and anxiety to staff, reports ongoing suicidality related to these delusional thoughts --Pt will still need a family meeting involving her outpatient supports, will continue to discuss though she has not yet been ready to participate in this just yet 01/22 - Continue current medication regimen, pt reporting prn olanzapine and hydroxyzine has been beneficial - Continues to report delusions, but feeling more comfortable reality testing after a phone conversation with her therapist yesterday afternoon - Pt agreeable with scheduling a family meeting with her pillowcase cleaner, declining to involve mother in treatment. 01/23 - Continue current medication regimen. Pt reports she feels spaced out and tired with olanzapine and hydroxyzine but she prefers this feeling over unpleasant delusional thoughts. Pt was reminded that she can request prn olanzapine if her delusion gets worse. - Family meeting with her mother and her pillowcase cleaner was productive and they came up with aftercare plan together. She will continue to reside at [facility], attending day programs and pt's mother told her that she will support her. - Reports ongoing delusions but pt feels more confident that they are not reality based thoughts and will disappear with her coping skills eventually. (2) Suicidal ideation: 01/17/20 -The patient has been placed on suicide precautions and is being actively monitored and treated on the locked behavioral unit. -She has been referred for individual, group, and activity therapies with a primary goal of helping the patient develop improved individual coping strategies in anticipation of return to the community. -We will encourage the patient to except her antidepressant medication, currently venlafaxine 75 mg daily. -We are also encouraging the patient to accept olanzapine 30 mg at bedtime, while discussing with the patient options of switching to a medication that would allow us to offer her intramuscular Depo medications for convenience and adherence. -We will attempt to address the patient's complaints of side effects from her medication, such as nausea, with medications intended to provide symptomatic relief Reviewed 01/18/2001/21 - Reports ongoing SI related to her continued delusions/paranoia 01/22 - Ongoing SI 01/23 - Denies suicidal ideation today. (3) Diabetic nephropathy associated with type 2 diabetes mellitus: 01/17/20 -The patient's blood glucose levels will be monitored treated per protocol. Reviewed 01/18/20. 01/20 -patient is taking glipizide and metformin, but refusing insulin. Glucose levels have been in the 120s to 250s. Hemoglobin A1c 8.5%, with estimated average glucose of 197. 01/23 - Pt's glucose at dinner time was 351 and Lantus 70 unit was given. Glucose levels today have been in the 180s to 200s. Inventory Assets Strengths: Intelligence, active support from her family, good relationship with outpatient providers, supportive living environment. Needs: Improved mood; resolution of active suicidality; improved medication adherence; enhanced individual coping strategies. Risk Factors Assessment Male: No : Yes Do You Have Access To A Gun?: No Health Problems: Yes Mental Health Diagnoses: Yes Substance Use Disorders: No Previous Attempt: Yes Previous Attempt; Highly Lethal: No Previous Attempt; Planned: Yes Previous Attempt; Didn't Tell Anyone: No Family History of Suicide: No Previous Psychiatric Hospitalization: Yes Hopelessness: No Smoker: No Protective Factors Assessment Synagogue Beliefs: No : No Responsible for Young Children: No Employed: No Stable Relationships: Yes Supportive Family: Yes Good Rapport with Provider: Yes Absence of Any Risk Factors Above: No Interval History Identifying Information AMADO OLSON is a 55-year-old F who lives in [place] residential [place], [facility], [place], has a history of schizoaffective disorder, depressed type, and was admitted on 01/16/20 17:14 on a 201 voluntary commitment after she presented to the emergency department with depression, suicidal ideation, and a plan to overdose. Chief Complaint "Good thoughts will be able to beat bad thoughts eventually". Review of Systems Notes Constitutional: reports tired or spaced out due to medications but she says she prefers this. cardiovascular: denied Respiratory: denied GI: denied Neurologic: denied Psychiatric: denies symptoms other than stated above Remainder of 10 body systems also reviewed and denied other than noted above. Sleep Information Total Hours of Sleep: 7 Sleep Comments: pt appeared to sleep 1.5 hrs during evening shift. pt awoke x1 and requested an orange juice. pt pacing the hallway for about 5 minutes.pt on q-15 minute checks Meal Information Percent Meal Consumed - Breakfast: 100 Percent Meal Consumed - Lunch: 100 Percent Meal Consumed - Dinner: 90 Subjective Subjective Patient was seen & assessed and interval progress reviewed with treatment team. Medical staff report that she was calm and cooperative yesterday but seemed to respond to internal stimuli occasionally, smiling inappropriately or taking time until responding to others. Her glucose was elevated and she agreed to take Lantus but still refuses insulin use. She also had a family meeting with her mother and her pillowcase cleaner this morning. Both of mother and pillowcase cleaner agreed that she has improved. Pt was seen today to assess progress since admission. She states that her meeting with mother and pillowcase cleaner went well and they discussed about the plans after she is discharged. She agrees that she will continue to stay at [facility] and to attend day programs, including Psych rehab for therapy and [facility] to learn some skills. She feels slightly anxious going back to her routine but says "I'll be okay." She feels slightly low today but states that her mood has been better than before. Also denies suicidal ideation at the hospital and feels safe here. However, she reports that she has occasional SI from guilt since others blame her for a lot of things, which even she didn't do. Reports her delusional thoughts come and go but states "I know that good thoughts can beat bad thoughts eventually." Bad thoughts fade more quickly and easily and are quieter gradually. Meditation and praying have been helping her when bad thoughts recur. She doesn't complain of specific delusion today and says that those thoughts are not based on the reality but when it happens, it usually gives hard time to her. She thinks expected length of stay would be reasonable for her and feels she's been improving. Physical Exam Psychiatric Orientation: alert, oriented x 3 and cooperative Apperance: appropriately dressed and appropriately groomed Eye Contact: good eye contact Motor Behavior: no abnormal motor movements Speech: normal rate/rhythm/volume of speech Affect: + depressed affect Mood: + depressed mood and + anxious mood (occasionally when she was talking about aftercare plans) Thought Process: goal directed thought process, linear/logical thought process and clear/coherent thought process Thought Content: + paranoid (expressing it as bad thoughts and stating they come and go.) and reality based without delusions (during the assement, no signs of delusions noted) Suicidal Thoughts: denies suicidal thoughts Homicidal Thoughts: denies homicidal thoughts Hallucinations: + auditory hallucinations (occasionally happening); no visual hallucinations Cognition: recent memory grossly intact, attention grossly intact and language grossly intact Estimated Intelligence: consistent with education level Insight: + fair insight Judgement: + fair judgement Vital Signs (Past 24 Hours) Last Vital Signs Temp 36.4 C L 01/24/20 06:25 Pulse 83 01/24/20 06:25 Resp 18 01/24/20 06:25 BP 134/82 01/24/20 06:25 Pulse Ox 96 01/16/20 18:16 Results & Data ([facility]) Laboratory Results Laboratory Results - last 24 hr 01/23/20 01/23/20 01/24/20 17:11 20:58 02:41 POC Glucose 287 H 351 H* 239 H 01/24/20 01/24/20 08:30 12:45 POC Glucose 200 H 185 H Current Inpatient Medications Current Inpatient Medications: Current Inpatient Medications Acetaminophen (Tylenol) 650 mg PO Q4H PRN PRN Reason: Headache or Minor Fever Stop: 02/15/20 17:13 Al Hydrox/Mg Hydrox/Simethicone (Maalox) 30 ml PO Q4H PRN PRN Reason: GI Upset Stop: 02/15/20 17:13 Aspirin (Ecotrin Ectab) 81 mg PO DAILY [facility] Stop: 02/16/20 08:59 Last Admin: 01/24/20 09:01 Dose: 81 mg Documented by: Atorvastatin Calcium (Lipitor) 80 mg PO QPM [facility]NAM[facility] Stop: 02/15/20 20:59 Last Admin: 01/23/20 21:07 Dose: Not Given Documented by: Benztropine Mesylate (Cogentin) 1 mg PO HS [facility] Stop: 02/15/20 20:59 Last Admin: 01/23/20 21:09 Dose: Not Given Documented by: Bismuth Subsalicylate (Kaopectate) 15 ml PO PRN PRN PRN Reason: Loose Stool Stop: 02/15/20 17:13 Cyanocobalamin (Vitamin B-12) 1,000 mcg PO DAILY [facility] Stop: 02/16/20 08:59 Last Admin: 01/24/20 09:01 Dose: 1,000 mcg Documented by: Fenofibrate (Tricor) 145 mg PO DAILY [facility] Stop: 02/23/20 08:59 Last Admin: 01/24/20 09:01 Dose: 145 mg Documented by: Glipizide (Glucotrol) 10 mg PO BIDM [facility] Stop: 02/18/20 12:29 Last Admin: 01/24/20 09:00 Dose: 10 mg Documented by: Hydrochlorothiazide (Hctz) 25 mg PO DAILY [facility] Stop: 02/16/20 08:59 Last Admin: 01/24/20 09:01 Dose: 25 mg Documented by: Hydroxyzine HCl (Vistaril) 50 mg PO HSZ PRN PRN Reason: Insomnia Stop: 02/15/20 17:13 Hydroxyzine HCl (Vistaril) 25 mg PO Q4H PRN PRN Reason: Anxiety Stop: 02/15/20 17:13 Last Admin: 01/22/20 03:11 Dose: 25 mg Documented by: Hydroxyzine HCl (Vistaril) 25 mg PO TID [facility] Stop: 02/15/20 20:59 Last Admin: 01/24/20 09:02 Dose: 25 mg Documented by: Insulin Aspart (Novolog Flexpen) 0 units SC ACHS [facility]; Protocol Stop: 02/15/20 21:59 Last Admin: 01/24/20 13:09 Dose: Not Given Documented by: Insulin Glargine (Lantus) 70 units SC BID [facility] Stop: 02/16/20 08:59 Last Admin: 01/24/20 09:15 Dose: Not Given Documented by: Lisinopril (Zestril) 40 mg PO DAILY [facility] Stop: 02/16/20 08:59 Last Admin: 01/24/20 09:01 Dose: 40 mg Documented by: Magnesium Hydroxide (Milk Of Magnesia) 30 ml PO DAILY PRN PRN Reason: Constipation Stop: 02/15/20 17:13 Metformin HCl (Glucophage Er) 500 mg PO BIDM [facility] Stop: 02/17/20 17:44 Last Admin: 01/24/20 09:01 Dose: 500 mg Documented by: Methimazole (Tapazole) 10 mg PO DAILY [facility] Stop: 02/16/20 08:59 Last Admin: 01/24/20 09:01 Dose: 10 mg Documented by: Olanzapine (Zyprexa) 20 mg PO HS [facility] Stop: 02/18/20 21:59 Last Admin: 01/23/20 21:10 Dose: 20 mg Documented by: Olanzapine (Zyprexa) 5 mg PO DAILY PRN PRN Reason: psychosis/anxiety Stop: 02/22/20 08:59 Last Admin: 01/22/20 15:30 Dose: 5 mg Documented by: Sodium Chloride ([place] Nasal) 1 - 2 sprays NA PRN PRN PRN Reason: Nasal Dryness/Congestion Stop: 02/15/20 17:13 Mental Health & Subst Abuse Tx Psychiatrist Name of Psychiatrist: Irma Card Psychiatrist's Psychiatric Appointment Comment: [address] [place] [address] Therapist Name of Therapist: Irma Holguin Therapist's Date of Therapist Appointment: 01/27/20 Time of Therapist Appointment: 3:00 p.m. Therapy Appointment Comment: By phone [employer] Name of [employer]: [facility] Phone Number for [employer]: [phone] Date of Appointment with [employer]: 01/28/20 Time of Appointment with [employer]: 10:30 a.m. Case Management Appointment Comment: By telephone Post Discharge Appointments Primary Care Physician Name Of Family Doctor: JAYJAY Lira Primary Care Provider Appointment Comment: [place], [place] [address] Contact Information Discharge Discharge Address: [address] [place] [address], [place] [address] Contact Information Comment: [facility]
[2020-01-24] MEDS: OLANZapine 5 MG TABLET PO PRN (16:14)
[2020-01-24] MEDS: ATORVASTATIN 40 MG TAB PO SCH (21:06)
[2020-01-24] MEDS: OLANZapine 20 MG TABLET PO SCH (21:07)
[2020-01-24] MEDS: BENZTROPINE MESYLATE 1 MG TAB PO SCH (21:07)
--- NOTE | 2020-01-25 06:56 | Psychiatric Progress Note ---
Date of Service January 25, 2020 Impression / Recommendations Impression 55-year-old female with schizoaffective disorder depressed type, who was last on the unit several months ago, and presented with mood instability, paranoia, hallucinations, delusions of reference, and suicidality in the context of nonadherence with outpatient meds/insulin for no clear reason. She is admitted voluntarily, and willing to take some medications and attend groups. She is refusing insulin, and blood sugar has been slightly elevated. Reviewed with patient option of converting to a different med for FERNANDEZ, which she is declining. She is improving with resumption of olanzapine, but is only willing to take 20 mg at bedtime and does not want the dose titrated further. She did, however, agree to a 5mg dose of olanzapine that can be offered/requested as needed for paranoia/delusions. We will need to explore her outpatient supports and get collateral information from her mother and case picker. She continues to have paranoia and delusions, at times implicating others on the unit, and last night felt that her roommate was an agent of the devil, with thoughts to harm others. Inpatient treatment remains medically necessary due to the severity of her symptoms and risk for harm to both herself and others if discharged. (1) Schizoaffective disorder, depressive type: 01/17/20 -Currently, the patient is experiencing symptoms consistent with the depressed phase of her schizoaffective disorder, depressed type. She describes depressed mood, difficulty sleeping, feelings of hopelessness, helplessness and worthlessness. She also endorses suicidal ideation with specific thoughts of committing suicide by overdose. There is a past history of suicide attempts by overdose. The patient has been [facility] the [facility] and has been placed on suicide observations. She will be encouraged to participate actively in individual, group, activity, and, as required, remote family interventions (telephonically) due to safety concerns related to the COVID-19 crisis. -We will continue to offer the patient olanzapine at her outpatient dose, orally, and we will offer a couple that with an antiemetic given her complaint that it causes nausea. Will be necessary with the patient continues to refuse oral psychiatric medications given the severity of her illness and the unlikelihood that she will recover without the use of antipsychotic/mood stabilizing medications. -We will also continue to offer the patient venlafaxine 75 mg daily for depression. 01/17--compliance to previous regimen is improving and psychotic symptoms appear to be lessening from presentation. 01/18--will d/c Effexor XR as she has refused in am and hopefully can just focus on insulin/diabetes regimen. Zyprexa 20 mg daily and monitor. Prefer lower dose if not taking insulin consistently and here sugars seem pretty controlled due to diet monitoring if not also lower dose. Sporadic use of Effexor XR can result in discontinuation syndrome which makes her more likely to misattribute somatic cues and refuse other medications. 01/20--continue olanzapine. Continue to encourage medication adherence, patient had been refusing venlafaxine, but now recognizing that she has been more depressed and anxious and may be willing to resume it, but will need to be willing to take it daily. --Reviewed fasting labs: Hemoglobin A1c 8.5%, FLP from 06/2019 was normal with the exception of triglycerides 319. 01/21 --Continue olanzapine 20mg at HS. She is willing for a dose of 5mg to be offered/requested as needed for paranoia/delusions. --Pt continues to report delusions and anxiety to staff, reports ongoing suicidality related to these delusional thoughts --Pt will still need a family meeting involving her outpatient supports, will co jyothiue to discuss though she has not yet been ready to participate in this just yet 01/22 - Continue current medication regimen, pt reporting prn olanzapine and hydroxyzine has been beneficial - Continues to report delusions, but feeling more comfortable reality testing after a phone conversation with her therapist yesterday afternoon - Pt agreeable with scheduling a family meeting with her case picker, declining to involve mother in treatment. 01/23 - Continue current medication regimen. Pt reports she feels spaced out and tired with olanzapine and hydroxyzine but she prefers this feeling over unpleasant delusional thoughts. Pt was reminded that she can request prn olanzapine if her delusion gets worse. - Family meeting with her mother and her case picker was productive and they came up with aftercare plan together. She will continue to reside at [facility], attending day programs and pt's mother told her that she will support her. - Reports ongoing delusions but pt feels more confident that they are not reality based thoughts and will disappear with her coping skills eventually. 01/24 -Increase in paranoia last evening; encouraged her to accept a higher dose of olanzapine, which she has thus far been unwilling to do, but did take a 5 mg as needed dose yesterday. - Continue to encourage group attendance and participation, reality testing, and improved medication compliance. (2) Suicidal ideation: 01/17/20 -The patient has been placed on suicide precautions and is being actively monitored and treated on the locked behavioral unit. -She has been referred for individual, group, and activity therapies with a primary goal of helping the patient develop improved individual coping strategies in anticipation of return to the community. -We will encourage the patient to except her antidepressant medication, currently venlafaxine 75 mg daily. -We are also encouraging the patient to accept olanzapine 30 mg at bedtime, while discussing with the patient options of switching to a medication that would allow us to offer her intramuscular Depo medications for convenience and adherence. -We will attempt to address the patient's complaints of side effects from her medication, such as nausea, with medications intended to provide symptomatic relief Reviewed 01/18/2001/21 - Reports ongoing SI related to her continued delusions/paranoia 01/22 - Ongoing SI 01/23 - Denies suicidal ideation today. (3) Diabetic nephropathy associated with type 2 diabetes mellitus: 01/17/20 -The patient's blood glucose levels will be monitored treated per protocol. Reviewed 01/18/20. 01/20 -patient is taking glipizide and metformin, but refusing insulin. Glucose levels have been in the 120s to 250s. Hemoglobin A1c 8.5%, with estimated average glucose of 197. 01/23 - Pt's glucose at dinner time was 351 and Lantus 70 unit was given. Glucose levels today have been in the 180s to 200s. Inventory Assets Strengths: Intelligence, active support from her family, good relationship with outpatient providers, supportive living environment. Needs: Improved mood; resolution of active suicidality; improved medication adherence; enhanced individual coping strategies. Risk Factors Assessment Male: No : Yes Do You Have Access To A Gun?: No Health Problems: Yes Mental Health Diagnoses: Yes Substance Use Disorders: No Previous Attempt: Yes Previous Attempt; Highly Lethal: No Previous Attempt; Planned: Yes Previous Attempt; Didn't Tell Anyone: No Family History of Suicide: No Previous Psychiatric Hospitalization: Yes Hopelessness: No Smoker: No Protective Factors Assessment Caodaism Beliefs: No : No Responsible for Young Children: No Employed: No Stable Relationships: Yes Supportive Family: Yes Good Rapport with Provider: Yes Absence of Any Risk Factors Above: No Interval History Identifying Information AMADO OLSON is a 55-year-old F who lives in a residential facility, [facility], in [place], has a history of schizoaffective disorder, depressed type, and was admitted on 01/16/20 17:14 on a 201 voluntary commitment after she presented to the emergency department with depression, suicidal ideation, and a plan to overdose. Chief Complaint " A little better, the hospital is really helping me". Review of Systems Sleep Information Total Hours of Sleep: 5.5 Sleep Comments: pt appeared to sleep 1.5 hrs during evening shift. pt awoke x1 and requested an orange juice. pt pacing the hallway for about 5 minutes.pt on q-15 minute checks Meal Information Percent Meal Consumed - Breakfast: 100 Percent Meal Consumed - Lunch: 100 Percent Meal Consumed - Dinner: 100 Subjective Subjective Patient was seen & assessed and interval progress reviewed with nursing and social work. Staff report she endorsed "bad thoughts," paranoia, and delusions involving her roommate, requested to be moved to another room as she believed her roommate was working with the "devil man, Carl," who wants the patient, her children, and her mother to "burn and be ." She also reported thoughts to harm someone else, and received Zyprexa as needed. She ultimately slept on the couch in the dayroom, as she declined the quiet room. She was psychotic in groups, and had a short meeting with her case picker and mother. 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 She thinks that groups are helping, and says she is feeling safer in the hospital, but recalls feeling unsafe with her roommate yesterday. She also reports feeling restless at times, and ongoing suspiciousness of others, thinking they have "evil intent," which she now thinks was "due to something in my bed." She continues to struggle with guilt, feeling she is responsible for the of Princess Alvarado and for 911, "for some reason I feel tied up in all of that." Suicidal thoughts are becoming less intense. 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" Thought Process: goal directed thought process Thought Content: + paranoid, + delusions and + guilt Suicidal Thoughts: + reports suicidal thoughts Homicidal Thoughts: denies homicidal thoughts But reported thoughts to harm nonspecific others last evening Hallucinations: no auditory hallucinations Cognition: attention grossly intact Insight: + impaired insight Judgement: + fair judgement Vital Signs (Past 24 Hours) Last Vital Signs Temp 36.4 C L 01/24/20 06:25 Pulse 83 01/24/20 06:25 Resp 18 01/24/20 06:25 BP 134/82 01/24/20 06:25 Pulse Ox 96 01/16/20 18:16 Results & Data ([facility]) Laboratory Results Laboratory Results - last 24 hr 01/24/20 01/24/20 01/24/20 08:30 12:45 16:50 POC Glucose 200 H 185 H 192 H 01/24/20 19:58 POC Glucose 248 H Current Inpatient Medications Current Inpatient Medications: Current Inpatient Medications Acetaminophen (Tylenol) 650 mg PO Q4H PRN PRN Reason: Headache or Minor Fever Stop: 02/15/20 17:13 Al Hydrox/Mg Hydrox/Simethicone (Maalox) 30 ml PO Q4H PRN PRN Reason: GI Upset Stop: 02/15/20 17:13 Aspirin (Ecotrin Ectab) 81 mg PO DAILY ANNAMARIA Stop: 02/16/20 08:59 Last Admin: 01/24/20 09:01 Dose: 81 mg Documented by: Atorvastatin Calcium (Lipitor) 80 mg PO QPM ANNAMARIA Stop: 02/15/20 20:59 Last Admin: 01/24/20 21:06 Dose: 80 mg Documented by: Benztropine Mesylate (Cogentin) 1 mg PO HS ANNAMARIA Stop: 02/15/20 20:59 Last Admin: 01/24/20 21:07 Dose: Not Given Documented by: Bismuth Subsalicylate (Kaopectate) 15 ml PO PRN PRN PRN Reason: Loose Stool Stop: 02/15/20 17:13 Cyanocobalamin (Vitamin B-12) 1,000 mcg PO DAILY [facility] Stop: 02/16/20 08:59 Last Admin: 01/24/20 09:01 Dose: 1,000 mcg Documented by: Fenofibrate (Tricor) 145 mg PO DAILY [facility] Stop: 02/23/20 08:59 Last Admin: 01/24/20 09:01 Dose: 145 mg Documented by: Glipizide (Glucotrol) 10 mg PO BIDM [facility] Stop: 02/18/20 12:29 Last Admin: 01/24/20 17:13 Dose: 10 mg Documented by: Hydrochlorothiazide (Hctz) 25 mg PO DAILY [facility] Stop: 02/16/20 08:59 Last Admin: 01/24/20 09:01 Dose: 25 mg Documented by: Hydroxyzine HCl (Vistaril) 50 mg PO HSZ PRN PRN Reason: Insomnia Stop: 02/15/20 17:13 Hydroxyzine HCl (Vistaril) 25 mg PO Q4H PRN PRN Reason: Anxiety Stop: 02/15/20 17:13 Last Admin: 01/22/20 03:11 Dose: 25 mg Documented by: Hydroxyzine HCl (Vistaril) 25 mg PO TID [facility] Stop: 02/15/20 20:59 Last Admin: 01/24/20 21:07 Dose: 25 mg Documented by: Insulin Aspart (Novolog Flexpen) 0 units SC ACHS [facility]; Protocol Stop: 02/15/20 21:59 Last Admin: 01/24/20 21:10 Dose: Not Given Documented by: Insulin Glargine (Lantus) 70 units SC BID [facility] Stop: 02/16/20 08:59 Last Admin: 01/24/20 21:10 Dose: Not Given Documented by: Lisinopril (Zestril) 40 mg PO DAILY [facility] Stop: 02/16/20 08:59 Last Admin: 01/24/20 09:01 Dose: 40 mg Documented by: Magnesium Hydroxide (Milk Of Magnesia) 30 ml PO DAILY PRN PRN Reason: Constipation Stop: 02/15/20 17:13 Metformin HCl (Glucophage Er) 500 mg PO BIDM [facility] Stop: 02/17/20 17:44 Last Admin: 01/24/20 17:20 Dose: Not Given Documented by: Methimazole (Tapazole) 10 mg PO DAILY AN[facility]ARIA Stop: 02/16/20 08:59 Last Admin: 01/24/20 09:01 Dose: 10 mg Documented by: Olanzapine (Zyprexa) 20 mg PO HS ANNAMARIA Stop: 02/18/20 21:59 Last Admin: 01/24/20 21:07 Dose: 20 mg Documented by: Olanzapine (Zyprexa) 5 mg PO DAILY PRN PRN Reason: psychosis/anxiety Stop: 02/22/20 08:59 Last Admin: 01/24/20 16:14 Dose: 5 mg Documented by: Sodium Chloride (Goessel Nasal) 1 - 2 sprays NA PRN PRN PRN Reason: Nasal Dryness/Congestion Stop: 02/15/20 17:13 Mental Health & Subst Abuse Tx Psychiatrist Name of Psychiatrist: Irma Card Psychiatrist's Date of Appointment with Psychiatrist: 01/31/20 Time of Appointment with Psychiatrist: 9:30 a.m. Psychiatric Appointment Comment: Telehealth Therapist Name of Therapist: Irma Holguin Therapist's Date of Therapist Appointment: 01/31/20 Time of Therapist Appointment: 3:00 p.m. Therapy Appointment Comment: Telehealth V[employer]ing Signal Officer Name of V/Stol [employer]ing Signal Officer: [facility] Phone Number for V/Stol Landing Signal Officer: [phone] Date of Appointment with V/Stol Landing Signal Officer: 01/28/20 Time of Appointment with V/Stol Landing Signal Officer: 10:30 a.m. Case Management Appointment Comment: By telephone Post Discharge Appointments Primary Care Physician Name Of Family Doctor: [facility] Date of Appointment with PCP: 01/29/20 Time of Appointment with PCP: 11:00 a.m. (In person) Provider Appointment Comment: [address], [place] [address] Contact Information Discharge Discharge Address: [address] [place] [id number] Contact Information Comment: [facility]
[2020-01-25] MEDS: METFORMIN HCL ER 500 MG TABCR PO SCH ×2 (09:01→17:25)
[2020-01-25] MEDS: ASPIRIN 81 MG ECTAB PO SCH (09:01)
[2020-01-25] MEDS: glipiZIDE 5 MG TAB PO SCH ×2 (09:01→17:25)
[2020-01-25] MEDS: hydroCHLOROthiazide 25 MG TAB PO SCH (09:01)
[2020-01-25] MEDS: methIMAzole 5 MG TABLET PO SCH (09:02)
[2020-01-25] MEDS: FENOFIBRATE NANOCRYSTALLIZED 145 MG TABLET PO SCH (09:02)
[2020-01-25] MEDS: INSULIN GLARGINE 100 UNIT/ML VIAL SC SCH ×2 (09:02→21:01)
[2020-01-25] MEDS: CYANOCOBALAMIN 500 MCG TABLET (VITAMIN B-12) PO SCH (09:03)
[2020-01-25] MEDS: lisinopriL 40 MG TAB PO SCH ×2 (09:03→09:07)
[2020-01-25] MEDS: INSULIN ASPART 100 UNITS/ML 3 ML PEN SC SCH ×4 (09:08→21:56)
[2020-01-25] MEDS: OLANZapine 20 MG TABLET PO SCH (21:16)
[2020-01-25] MEDS: ATORVASTATIN 40 MG TAB PO SCH (21:16)
[2020-01-25] MEDS: BENZTROPINE MESYLATE 1 MG TAB PO SCH ×2 (21:16→21:59)
--- NOTE | 2020-01-26 07:03 | Psychiatric Progress Note ---
Date of Service January 26, 2020 Impression / Recommendations Impression 55-year-old female with schizoaffective disorder depressed type, who was last on the unit several months ago, and presented with mood instability, paranoia, hallucinations, delusions of reference, and suicidality in the context of nonadherence with outpatient meds/insulin for no clear reason. She is admitted voluntarily, and willing to take some medications and attend groups. She is refusing insulin, and blood sugar has been slightly elevated. Reviewed with patient option of converting to a different med for FERNANDEZ, which she is declining. She is improving with resumption of olanzapine, but is only willing to take 20 mg at bedtime and does not want the dose titrated further. She did, however, agree to a 5mg dose of olanzapine that can be offered/requested as needed for paranoia/delusions. We will need to explore her outpatient supports, as her daily structure has been negatively impacted by the pandemic and associated restrictions. She continues to have paranoia and delusions, at times implicating others on the unit, and continues to refuse her medications for medical conditions, including insulin, with elevated blood sugar. Inpatient treatment remains medically necessary due to the severity of her symptoms and risk for harm to both herself and others if discharged. (1) Schizoaffective disorder, depressive type: 01/17/20 -Currently, the patient is experiencing symptoms consistent with the depressed phase of her schizoaffective disorder, depressed type. She describes depressed mood, difficulty sleeping, feelings of hopelessness, helplessness and worthlessness. She also endorses suicidal ideation with specific thoughts of committing suicide by overdose. There is a past history of suicide attempts by overdose. The patient has been admitted to the [facility] behavioral health unit and has been placed on suicide observations. She will be encouraged to participate actively in individual, group, activity, and, as required, remote family interventions (telephonically) due to safety concerns related to the COVID-19 crisis. -We will continue to offer the patient olanzapine at her outpatient dose, orally, and we will offer a couple that with an antiemetic given her complaint that it causes nausea. Will be necessary with the patient continues to refuse oral psychiatric medications given the severity of her illness and the unlikelihood that she will recover without the use of antipsychotic/mood stabilizing medications. -We will also continue to offer the patient venlafaxine 75 mg daily for depression. 01/17--compliance to previous regimen is improving and psychotic symptoms appear to be lessening from presentation. 01/18--will d/c Effexor XR as she has refused in am and hopefully can just focus on insulin/diabetes regimen. Zyprexa 20 mg daily and monitor. Prefer lower dose if not taking insulin consistently and here sugars seem pretty controlled due to diet monitoring if not also lower dose. Sporadic use of Effexor XR can result in discontinuation syndrome which makes her more likely to misattribute somatic cues and refuse other medications. 01/20--continue olanzapine. Continue to encourage medication adherence, patient had been refusing venlafaxine, but now recognizing that she has been more depressed and anxious and may be willing to resume it, but will need to be willing to take it daily. --Reviewed fasting labs: Hemoglobin A1c 8.5%, FLP from 06/2019 was normal with the exception of triglycerides 319. 01/21 --Continue olanzapine 20mg at HS. She is willing for a dose of 5mg to be offere d/requested as needed for paranoia/delusions. --Pt continues to report delusions and anxiety to staff, reports ongoing suicidality related to these delusional thoughts --Pt will still need a family meeting involving her outpatient supports, will continue to discuss though she has not yet been ready to participate in this just yet 01/22 - Continue current medication regimen, pt reporting prn olanzapine and hydroxyzine has been beneficial - Continues to report delusions, but feeling more comfortable reality testing after a phone conversation with her therapist yesterday afternoon - Pt agreeable with scheduling a family meeting with her piano case and bench assembler, declining to involve mother in treatment. 01/23 - Continue current medication regimen. Pt reports she feels spaced out and tired with olanzapine and hydroxyzine but she prefers this feeling over unpleasant delusional thoughts. Pt was reminded that she can request prn olanzapine if her delusion gets worse. - Family meeting with her mother and her piano case and bench assembler was productive and they came up with aftercare plan together. She will continue to reside at [facility], attending day programs and pt's mother told her that she will support her. - Reports ongoing delusions but pt feels more confident that they are not reality based thoughts and will disappear with her coping skills eventually. 01/24 -Increase in paranoia last evening; encouraged her to accept a higher dose of olanzapine, which she has thus far been unwilling to do, but did take a 5 mg as needed dose yesterday. -Continue to encourage group attendance and participation, reality testing, and improved medication compliance. 01/25 -Continue current medications and encouraged her to utilize the olanzapine 5 mg as needed dose. (2) Suicidal ideation: 01/17/20 -The patient has been placed on suicide precautions and is being actively monitored and treated on the locked behavioral unit. -She has been referred for individual, group, and activity therapies with a primary goal of helping the patient develop improved individual coping strategies in anticipation of return to the community. -We will encourage the patient to except her antidepressant medication, currently venlafaxine 75 mg daily. -We are also encouraging the patient to accept olanzapine 30 mg at bedtime, while discussing with the patient options of switching to a medication that would allow us to offer her intramuscular Depo medications for convenience and adherence. -We will attempt to address the patient's complaints of side effects from her medication, such as nausea, with medications intended to provide symptomatic relief Reviewed 01/18/2001/21 - Reports ongoing SI related to her continued delusions/paranoia 01/22 - Ongoing SI 01/23 - Denies suicidal ideation today. -denying acute SI, but reporting ongoing delusions of persecution and severe guilt related to feeling she is responsible for "natural disasters" and tragic event such as 05/08. (3) Diabetic nephropathy associated with type 2 diabetes mellitus: 01/17/20 -The patient's blood glucose levels will be monitored treated per protocol. Reviewed 01/18/20. 01/20 -patient is taking glipizide and metformin, but refusing insulin. Glucose levels have been in the 120s to 250s. Hemoglobin A1c 8.5%, with estimated average glucose of 197. 01/23 - Pt's glucose at dinner time was 351 and Lantus 70 unit was given. Glucose levels today have been in the 180s to 200s. 01/24 -patient continues to refuse her insulin, although did except 1 dose last evening when she had a BG of 324. Attempted diabetes education, but she is poorly receptive and struggles to explain the reasons that she has been refusing insulin. Inventory Assets Strengths: Intelligence, active support from her family, good relationship with outpatient providers, supportive living environment. Needs: Improved mood; resolution of active suicidality; improved medication adherence; enhanced individual coping strategies. Risk Factors Assessment Male: No : Yes Do You Have Access To A Gun?: No Health Problems: Yes Mental Health Diagnoses: Yes Substance Use Disorders: No Previous Attempt: Yes Previous Attempt; Highly Lethal: No Previous Attempt; Planned: Yes Previous Attempt; Didn't Tell Anyone: No Family History of Suicide: No Previous Psychiatric Hospitalization: Yes Hopelessness: No Smoker: No Protective Factors Assessment Islam Beliefs: No : No Responsible for Young Children: No Employed: No Stable Relationships: Yes Supportive Family: Yes Good Rapport with Provider: Yes Absence of Any Risk Factors Above: No Interval History Identifying Information AMADO OLSON is a 55-year-old F who lives in a residential facility, [facility], in [place], has a history of schizoaffective disorder, depressed type, and was admitted on 01/16/20 17:14 on a 201 voluntary commitment after she presented to the emergency department with depression, suicidal ideation, and a plan to overdose. Chief Complaint " Coming along". Review of Systems Sleep Information Total Hours of Sleep: 7.5 Sleep Comments: pt appeared to sleep 1.5 hrs during evening shift. pt awoke x1 and requested an orange juice. pt pacing the hallway for about 5 minutes.pt on q-15 minute checks Meal Information Percent Meal Consumed - Breakfast: 60 Percent Meal Consumed - Lunch: 100 Percent Meal Consumed - Dinner: 100 Subjective Subjective Patient was seen & assessed and interval progress reviewed with nursing and social work. Staff report her glucose continues in the 200-300 range, and did accept Lantus last night when BG was >300. She is taking her oral diabetes medications, but continues to refuse some of her medications daily, typically her insulin, benztropine, atorvastatin, and partial doses of her antihypertensives. She went to groups and her feeling word was "dreamy." She continues to endorse paranoia, asking staff to throw away socks (that were in good condition) as she thought they were "contaminated," and didn't think washing would clean them. She also thought her dog t-shirt was "contaminated" and had contaminated other items in her locker. She continues to report "dark thoughts." On my assessment, she reports mood is "ups and downs," worse when "I have paranoid thoughts, that I am at fault for national disasters, should be taking that on my shoulders, for some reason they're blaming me." She says "they're breaking up my family and friends, telling them to leave me." When asked to "they" is, she says "the [employer] I used to go to, there's a wicked which there, always trying to break up me and my cousins. Well she may not be there, maybe a wicked witch somewhere else." She denies auditory and visual hallucinations, suicidal and homicidal thoughts. Sleep is improving, and appetite is good. She says her medications are "mostly okay," but that she has been refusing some of them are refusing partial doses because she thinks they cause her to feel, restless, shaky, and "I don't know," but cannot say which meds she thinks because this or how she chooses what to take or refuse. Physical Exam Psychiatric Orientation: alert and cooperative Apperance: appropriately dressed, appropriately groomed and appeared stated age Eye Contact: good eye contact Motor Behavior: steady gait and station and no abnormal motor movements Speech: normal rate/rhythm/volume of speech Soft speech, slight accent. Affect: + depressed affect, + constricted affect and mood congruent with affect Mood: + depressed mood "Up and down." Thought Process: goal directed thought process Thought Content: + paranoid, + delusions, + persecution, + hopelessness, + guilt and + self deprecation Suicidal Thoughts: denies suicidal thoughts Homicidal Thoughts: denies homicidal thoughts Hallucinations: no auditory hallucinations and no visual hallucinations Cognition: recent memory grossly intact, attention grossly intact and language grossly intact; + remote memory not intact (Endorses many delusions that have mixed in with her memories of past events.) Insight: + fair insight Judgement: + limited judgement Vital Signs (Past 24 Hours) Last Vital Signs Temp 36.6 C 01/25/20 21:35 Pulse 78 01/25/20 07:03 Resp 16 01/25/20 07:02 BP 130/76 01/25/20 07:03 Pulse Ox 96 01/16/20 18:16 Results & Data ([facility]) Laboratory Results Laboratory Results - last 24 hr 01/25/20 01/25/20 01/25/20 08:07 12:37 17:06 POC Glucose 243 H 259 H 192 H 01/25/20 01/25/20 20:02 20:55 POC Glucose 304 H* 324 H* Current Inpatient Medications Current Inpatient Medications: Current Inpatient Medications Acetaminophen (Tylenol) 650 mg PO Q4H PRN PRN Reason: Headache or Minor Fever Stop: 02/15/20 17:13 Al Hydrox/Mg Hydrox/Simethicone (Maalox) 30 ml PO Q4H PRN PRN Reason: GI Upset Stop: 02/15/20 17:13 Aspirin (Ecotrin Ectab) 81 mg PO DAILY [facility] Stop: 02/16/20 08:59 Last Admin: 01/25/20 09:01 Dose: 81 mg Documented by: Atorvastatin Calcium (Lipitor) 80 mg PO QPM [facility] Stop: 02/15/20 20:59 Last Admin: 01/25/20 21:16 Dose: 40 mg Documented by: Benztropine Mesylate (Cogentin) 1 mg PO HS [facility] Stop: 02/15/20 20:59 Last Admin: 01/25/20 21:59 Dose: Not Given Documented by: Bismuth Subsalicylate (Kaopectate) 15 ml PO PRN PRN PRN Reason: Loose Stool Stop: 02/15/20 17:13 Cyanocobalamin (Vitamin B-12) 1,000 mcg PO DAILY [facility] Stop: 02/16/20 08:59 Last Admin: 01/25/20 09:03 Dose: 1,000 mcg Documented by: Fenofibrate (Tricor) 145 mg PO DAILY [facility] Stop: 02/23/20 08:59 Last Admin: 01/25/20 09:02 Dose: 145 mg Documented by: Glipizide (Glucotrol) 10 mg PO BIDM [facility] Stop: 02/18/20 12:29 Last Admin: 01/25/20 17:25 Dose: 10 mg Documented by: Hydrochlorothiazide (Hctz) 25 mg PO DAILY [facility] Stop: 02/16/20 08:59 Last Admin: 01/25/20 09:01 Dose: 25 mg Documented by: Hydroxyzine HCl (Vistaril) 50 mg PO HSZ PRN PRN Reason: Insomnia Stop: 06/20/20 17:13 Hydroxyzine HCl (Vistaril) 25 mg PO Q4H PRN PRN Reason: Anxiety Stop: 02/15/20 17:13 Last Admin: 01/22/20 03:11 Dose: 25 mg Documented by: Hydroxyzine HCl (Vistaril) 25 mg PO TID [facility] Stop: 02/15/20 20:59 Last Admin: 01/25/20 21:17 Dose: 25 mg Documented by: Insulin Aspart (Novolog Flexpen) 0 units SC ACHS [facility]; Protocol Stop: 02/15/20 21:59 Last Admin: 01/25/20 21:56 Dose: Not Given Documented by: Insulin Glargine (Lantus) 70 units SC BID [facility] Stop: 02/16/20 08:59 Last Admin: 01/25/20 21:01 Dose: 70 units Documented by: Lisinopril (Zestril) 40 mg PO DAILY [facility] Stop: 02/16/20 08:59 Last Admin: 01/25/20 09:07 Dose: Not Given Documented by: Magnesium Hydroxide (Milk Of Magnesia) 30 ml PO DAILY PRN PRN Reason: Constipation Stop: 02/15/20 17:13 Metformin HCl (Glucophage Er) 500 mg PO BIDM [facility] Stop: 02/17/20 17:44 Last Admin: 01/25/20 17:25 Dose: 500 mg Documented by: Methimazole (Tapazole) 10 mg PO DAILY [facility] Stop: 02/16/20 08:59 Last Admin: 01/25/20 09:02 Dose: 5 mg Documented by: Olanzapine (Zyprexa) 20 mg PO HS [facility] Stop: 02/18/20 21:59 Last Admin: 01/25/20 21:16 Dose: 20 mg Documented by: Olanzapine (Zyprexa) 5 mg PO DAILY PRN PRN Reason: psychosis/anxiety Stop: 02/22/20 08:59 Last Admin: 01/24/20 16:14 Dose: 5 mg Documented by: Sodium Chloride (Nicollet Nasal) 1 - 2 sprays NA PRN PRN PRN Reason: Nasal Dryness/Congestion Stop: 02/15/20 17:13 Mental Health & Subst Abuse Tx Psychiatrist Name of Psychiatrist: Irma Card Psychiatrist's Date of Appointment with Psychiatrist: 01/31/20 Time of Appointment with Psychiatrist: 9:30 a.m. Psychiatric Appointment Comment: Telehealth Therapist Name of Therapist: Irma Holguin Therapist's Date of Therapist Appointment: 01/31/20 Time of Therapist Appointment: 3:00 p.m. Therapy Appointment Comment: Telehealth Housekeeper Name of Housekeeper: [facility] Phone Number for Housekeeper: [phone] Date of Appointment with Housekeeper: 01/28/20 Time of Appointment with Housekeeper: 10:30 a.m. Case Management Appointment Comment: By telephone Post Discharge Appointments Primary Care Physician Name Of Family Doctor: [facility] Date of Appointment with PCP: 01/29/20 Time of Appointment with PCP: 11:00 a.m. (In person) Provider Appointment Comment: [address], [place] [address] Contact Information Discharge Discharge Address: [address] [place] [address], [place] [address] Contact Information Comment: [facility]
[2020-01-26] MEDS: ASPIRIN 81 MG ECTAB PO SCH (08:35)
[2020-01-26] MEDS: hydroCHLOROthiazide 25 MG TAB PO SCH (08:35)
[2020-01-26] MEDS: glipiZIDE 5 MG TAB PO SCH ×2 (08:35→17:16)
[2020-01-26] MEDS: METFORMIN HCL ER 500 MG TABCR PO SCH ×2 (08:35→17:16)
[2020-01-26] MEDS: methIMAzole 5 MG TABLET PO SCH (08:36)
[2020-01-26] MEDS: FENOFIBRATE NANOCRYSTALLIZED 145 MG TABLET PO SCH (08:37)
[2020-01-26] MEDS: lisinopriL 40 MG TAB PO SCH (08:38)
[2020-01-26] MEDS: CYANOCOBALAMIN 500 MCG TABLET (VITAMIN B-12) PO SCH (08:38)
[2020-01-26] MEDS: INSULIN ASPART 100 UNITS/ML 3 ML PEN SC SCH ×4 (09:03→21:02)
[2020-01-26] MEDS: INSULIN GLARGINE 100 UNIT/ML VIAL SC SCH ×2 (09:04→20:58)
[2020-01-26] MEDS: OLANZapine 5 MG TABLET PO PRN (15:52)
[2020-01-26] MEDS: ATORVASTATIN 40 MG TAB PO SCH (21:01)
[2020-01-26] MEDS: OLANZapine 20 MG TABLET PO SCH (21:02)
[2020-01-26] MEDS: BENZTROPINE MESYLATE 1 MG TAB PO SCH (21:05)
[2020-01-27] MEDS: ASPIRIN 81 MG ECTAB PO SCH (08:44)
[2020-01-27] MEDS: methIMAzole 5 MG TABLET PO SCH (08:45)
[2020-01-27] MEDS: METFORMIN HCL ER 500 MG TABCR PO SCH ×2 (08:45→17:55)
[2020-01-27] MEDS: glipiZIDE 5 MG TAB PO SCH ×2 (08:45→17:55)
[2020-01-27] MEDS: hydroCHLOROthiazide 25 MG TAB PO SCH (08:45)
[2020-01-27] MEDS: FENOFIBRATE NANOCRYSTALLIZED 145 MG TABLET PO SCH (08:45)
[2020-01-27] MEDS: lisinopriL 40 MG TAB PO SCH (08:46)
[2020-01-27] MEDS: INSULIN GLARGINE 100 UNIT/ML VIAL SC SCH ×2 (08:46→21:08)
[2020-01-27] MEDS: CYANOCOBALAMIN 500 MCG TABLET (VITAMIN B-12) PO SCH (08:46)
[2020-01-27] MEDS: INSULIN ASPART 100 UNITS/ML 3 ML PEN SC SCH ×4 (08:46→21:13)
--- NOTE | 2020-01-27 10:51 | Psychiatric Progress Note ---
Date of Service January 27, 2020 Impression / Recommendations Impression 55-year-old female with schizoaffective disorder depressed type, who was last on the unit several months ago, and presented with mood instability, paranoia, hallucinations, delusions of reference, and suicidality in the context of nonadherence with outpatient meds/insulin for no clear reason. She is admitted voluntarily, and willing to take some medications and attend groups. She is refusing insulin, and blood sugar has been slightly elevated. Reviewed with patient option of converting to a different med for FERNANDEZ, which she is declining. She is improving with resumption of olanzapine, but is only willing to take 20 mg at bedtime and does not want the dose titrated further. She did, however, agree to a 5mg dose of olanzapine that can be offered/requested as needed for paranoia/delusions. We will need to explore her outpatient supports, as her daily structure has been negatively impacted by the pandemic and associated restrictions. She continues to have paranoia and delusions, at times implicating others on the unit, and continues to refuse her medications for medical conditions, including insulin, with elevated blood sugar. Specifically, patient has started to incorporate her roommate on the unit in her delusional beliefs so will therefore pursue an private room. Inpatient treatment remains medically necessary due to the severity of her symptoms and risk for harm to both herself and others if discharged. (1) Schizoaffective disorder, depressive type: 01/17/20 -Currently, the patient is experiencing symptoms consistent with the depressed phase of her schizoaffective disorder, depressed type. She describes depressed mood, difficulty sleeping, feelings of hopelessness, helplessness and worthlessness. She also endorses suicidal ideation with specific thoughts of committing suicide by overdose. There is a past history of suicide attempts by overdose. The patient has been admitted to the locked behavioral health unit and has been placed on suicide observations. She will be encouraged to participate actively in individual, group, activity, and, as required, remote family interventions (telephonically) due to safety concerns related to the COVID-19 crisis. -We will continue to offer the patient olanzapine at her outpatient dose, orally, and we will offer a couple that with an antiemetic given her complaint that it causes nausea. Will be necessary with the patient continues to refuse oral psychiatric medications given the severity of her illness and the unlikelihood that she will recover without the use of antipsychotic/mood stabilizing medications. -We will also continue to offer the patient venlafaxine 75 mg daily for depression. 01/17--compliance to previous regimen is improving and psychotic symptoms appear to be lessening from presentation. 01/18--will d/c Effexor XR as she has refused in am and hopefully can just focus on insulin/diabetes regimen. Zyprexa 20 mg daily and monitor. Prefer lower dose if not taking insulin consistently and here sugars seem pretty controlled due to diet monitoring if not also lower dose. Sporadic use of Effexor XR can result in discontinuation syndrome which makes her more likely to misattribute somatic cues and refuse other medications. 01/20--continue olanzapine. Continue to encourage medication adherence, patient had been refusing venlafaxine, but now recognizing that she has been more depressed and anxious and may be willing to resume it, but will need to be willing to take it daily. --Reviewed fasting labs: Hemoglobin A1c 8.5%, FLP from 06/2019 was normal with the exception of triglycerides 319. 01/21 --Continue olanzapine 20mg at HS. She is willing for a dose of 5mg to be offered/requested as needed for paranoia/delusions. --Pt continues to report delusions and anxiety to staff, reports ongoing suicidality related to these delusional thoughts --Pt will still need a family meeting involving her outpatient supports, will continue to discuss though she has not yet been ready to participate in this just yet 01/22 - Continue current medication regimen, pt reporting prn olanzapine and hydroxyzine has been beneficial - Continues to report delusions, but feeling more comfortable reality testing after a phone conversation with her therapist yesterday afternoon - Pt agreeable with scheduling a family meeting with her welfare case worker, declining to involve mother in treatment. 01/23 - Continue current medication regimen. Pt reports she feels spaced out and tired with olanzapine and hydroxyzine but she prefers this feeling over unpleasant delusional thoughts. Pt was reminded that she can request prn olanzapine if her delusion gets worse. - Family meeting with her mother and her welfare case worker was productive and they came up with aftercare plan together. She will continue to reside at [facility], attending day programs and pt's mother told her that she will support her. - Reports ongoing delusions but pt feels more confident that they are not reality based thoughts and will disappear with her coping skills eventually. 01/24 -Increase in paranoia last evening; encouraged her to accept a higher dose of olanzapine, which she has thus far been unwilling to do, but did take a 5 mg as needed dose yesterday. -Continue to encourage group attendance and participation, reality testing, and improved medication compliance. 01/25 -Continue current medications and encouraged her to utilize the olanzapine 5 mg as needed dose. 01/26 - Continue current medication regimen - patient reporting ongoing utilization of olanzapine as needed which she claims is beneficial - Pt continues to endorse delusional and paranoid thoughts - now believing that her roommate is working with [employer] - Due to recently incorporating her roommate into her delusions with pretty significant intensity, we will order a MNPR for the patient (2) Suicidal ideation: 01/17/20 -The patient has been placed on suicide precautions and is being actively monitored and treated on the locked behavioral unit. -She has been referred for individual, group, and activity therapies with a primary goal of helping the patient develop improved individual coping strategies in anticipation of return to the community. -We will encourage the patient to except her antidepressant medication, currently venlafaxine 75 mg daily. -We are also encouraging the patient to accept olanzapine 30 mg at bedtime, while discussing with the patient options of switching to a medication that would allow us to offer her intramuscular Depo medications for convenience and adherence. -We will attempt to address the patient's complaints of side effects from her medication, such as nausea, with medications intended to provide symptomatic rel ief Reviewed 01/18/2001/21 - Reports ongoing SI related to her continued delusions/paranoia 01/22 - Ongoing SI 01/23 - Denies suicidal ideation today. -denying acute SI, but reporting ongoing delusions of persecution and severe guilt related to feeling she is responsible for "natural disasters" and tragic event such as 05/08. (3) Diabetic nephropathy associated with type 2 diabetes mellitus: 01/17/20 -The patient's blood glucose levels will be monitored treated per protocol. Reviewed 01/18/20. 01/20 -patient is taking glipizide and metformin, but refusing insulin. Glucose levels have been in the 120s to 250s. Hemoglobin A1c 8.5%, with estimated average glucose of 197. 5/29 - Pt's glucose at dinner time was 351 and Lantus 70 unit was given. Glucose levels today have been in the 180s to 200s. 01/24 -patient continues to refuse her insulin, although did except 1 dose last evening when she had a BG of 324. Attempted diabetes education, but she is poorly receptive and struggles to explain the reasons that she has been refusing insulin. Inventory Assets Strengths: Intelligence, active support from her family, good relationship with outpatient providers, supportive living environment. Needs: Improved mood; resolution of active suicidality; improved medication adherence; enhanced individual coping strategies. Risk Factors Assessment Male: No : Yes Do You Have Access To A Gun?: No Health Problems: Yes Mental Health Diagnoses: Yes Substance Use Disorders: No Previous Attempt: Yes Previous Attempt; Highly Lethal: No Previous Attempt; Planned: Yes Previous Attempt; Didn't Tell Anyone: No Family History of Suicide: No Previous Psychiatric Hospitalization: Yes Hopelessness: No Smoker: No Protective Factors Assessment Oriental Orthodox Beliefs: No : No Responsible for Young Children: No Employed: No Stable Relationships: Yes Supportive Family: Yes Good Rapport with Provider: Yes Absence of Any Risk Factors Above: No Interval History Identifying Information AMADO OLSON is a 55-year-old F who lives in a residential facility, [facility], in [place], has a history of schizoaffective disorder, depressed type, and was admitted on 01/16/20 17:14 on a 201 voluntary commitment after she presented to the emergency department with depression, suicidal ideation, and a plan to overdose. Chief Complaint "So-so. Not very good today, I guess." Review of Systems Notes Constitutional: denied Cardiovascular: denied Respiratory: denied Gastrointestinal: denied Neurological: denied Psychiatric: denies symptoms other than stated above Total of at least 10 systems reviewed, pertinent positives as above and in HPI. Sleep Information Total Hours of Sleep: 4.5 Sleep Comments: pt appeared to sleep 1.5 hrs during evening shift. pt awoke x1 and requested an orange juice. pt pacing the hallway for about 5 minutes.pt on q-15 minute checks Meal Information Percent Meal Consumed - Breakfast: 30 Percent Meal Consumed - Lunch: 100 Percent Meal Consumed - Dinner: 100 Subjective Subjective Patient was seen & assessed and interval progress reviewed with treatment team. Staff report the patient has continued to report dark thoughts, now incorporating her roommate on the unit - leading to patient sleeping on the couch in the day area over the weekend. Pt was reported to be rather animated and angry at times over the weekend. Pt was seen today to assess progress since admission. Pt states that she is "so-so" initially, but later says "not very good today." Pt shares with this provider that she slept on the couch in the day area last evening, as she is having difficulty with her roommate. Pt states "my roommate is nasty, she is out to get me. I believe she is a forever soldier of [employer]. She's just being a b*tch to me. I'm angry with [roommate] and Hitler, I'll see them in court. I won't stand for this. They are targeting me for being a [place] Confucianism, but I'm from a very [place] family. [facility] [employer] is working with [place] as well. I believe in my heart that this is true." Pt was asked if she feels she is able to reality test these thoughts, but states "not as well as I had been...it's much harder." We attempted to discuss how [place] would be able to control these individuals if he is no longer living, to which she states "the Devil gets him up here. They have chopped off the hands of my child, why would they treat her in that way?" Pt continues to endorse intermittent SI. She reports various changes she would like to make to her home medications ("thyroid pill and my cholesterol medications"). Pt was encouraged to continue her usual medications until she is able to discuss them with her PCP - as there was not reasonable explanation provided as to why she wished to make these adjustments. We did discuss the patient being on a private room until she is better able to reality test her delusions. Pt was appreciative of this, and also felt it would be helpful. Pt denied other needs or concerns at this time. Physical Exam Psychiatric Orientation: alert, oriented to person, oriented to place and + guarded (superficially cooperative, distracted) Apperance: appropriately dressed (casually dressed) and appropriately groomed Eye Contact: + fair eye contact Motor Behavior: steady gait and station and no abnormal motor movements Speech: + pressured speech (rapid, irritable tone) Affect: + anxious affect and + irritable affect Mood: + depressed mood ("so-so") and + anxious mood Thought Process: + tangential thought process and + perseveration; + thought process not linear or logical and + thought process not clear or coherent Thought Content: + preoccupation, + paranoid, + delusions, + persecution and + hopelessness Suicidal Thoughts: + reports suicidal thoughts ("those thoughts still come up pretty often") Homicidal Thoughts: denies homicidal thoughts (though reports significant anger toward her current roommate ) Cognition: language grossly intact; + attention not intact Insight: + impaired insight Judgement: + impaired judgement Vital Signs (Past 24 Hours) Last Vital Signs Temp 36.5 C 01/27/20 06:56 Pulse 83 01/27/20 06:59 Resp 16 01/27/20 06:56 BP 111/67 01/27/20 06:59 Pulse Ox 96 01/16/20 18:16 Results & Data ([facility]) Laboratory Results Laboratory Results - last 24 hr 01/26/20 01/26/20 01/26/20 11:31 17:09 20:27 POC Glucose 280 H 242 H 333 H* 01/26/20 01/27/20 20:29 07:47 POC Glucose 354 H* 265 H Current Inpatient Medications Current Inpatient Medications: Current Inpatient Medications Acetaminophen (Tylenol) 650 mg PO Q4H PRN PRN Reason: Headache or Minor Fever Stop: 02/15/20 17:13 Al Hydrox/Mg Hydrox/Simethicone (Maalox) 30 ml PO Q4H PRN PRN Reason: GI Upset Stop: 02/15/20 17:13 Aspirin (Ecotrin Ectab) 81 mg PO DAILY ANNAMARIA Stop: 02/16/20 08:59 Last Admin: 01/27/20 08:44 Dose: 81 mg Documented by: Atorvastatin Calcium (Lipitor) 80 mg PO QPM ANNAMARIA Stop: 02/15/20 20:59 Last Admin: 01/26/20 21:01 Dose: 40 mg Documented by: Benztropine Mesylate (Cogentin) 1 mg PO HS ANNAMARIA Stop: 02/15/20 20:59 Last Admin: 01/26/20 21:05 Dose: 1 mg Documented by: Bismuth Subsalicylate (Kaopectate) 15 ml PO PRN PRN PRN Reason: Loose Stool Stop: 02/15/20 17:13 Cyanocobalamin (Vitamin B-12) 1,000 mcg PO DAILY [facility] Stop: 02/16/20 08:59 Last Admin: 01/27/20 08:46 Dose: 1,000 mcg Documented by: Fenofibrate (Tricor) 145 mg PO DAILY [facility] Stop: 02/23/20 08:59 Last Admin: 01/27/20 08:45 Dose: Not Given Documented by: Glipizide (Glucotrol) 10 mg PO BIDM [facility] Stop: 02/18/20 12:29 Last Admin: 01/27/20 08:45 Dose: 10 mg Documented by: Hydrochlorothiazide (Hctz) 25 mg PO DAILY [facility] Stop: 02/16/20 08:59 Last Admin: 01/27/20 08:45 Dose: 25 mg Documented by: Hydroxyzine HCl (Vistaril) 50 mg PO HSZ PRN PRN Reason: Insomnia Stop: 02/15/20 17:13 Last Admin: 01/26/20 23:50 Dose: 50 mg Documented by: Hydroxyzine HCl (Vistaril) 25 mg PO Q4H PRN PRN Reason: Anxiety Stop: 02/15/20 17:13 Last Admin: 01/22/20 03:11 Dose: 25 mg Documented by: Hydroxyzine HCl (Vistaril) 25 mg PO TID [facility] Stop: 02/15/20 20:59 Last Admin: 01/27/20 08:49 Dose: Not Given Documented by: Insulin Aspart (Novolog Flexpen) 0 units SC [facility]; Protocol Stop: 02/15/20 21:59 Last Admin: 01/27/20 08:46 Dose: Not Given Documented by: Insulin Glargine (Lantus) 70 units SC BID [facility] Stop: 02/16/20 08:59 Last Admin: 01/27/20 08:46 Dose: Not Given Documented by: Lisinopril (Zestril) 40 mg PO DAILY [facility] Stop: 02/16/20 08:59 Last Admin: 01/27/20 08:46 Dose: 40 mg Documented by: Magnesium Hydroxide (Milk Of Magnesia) 30 ml PO DAILY PRN PRN Reason: Constipation Stop: 02/15/20 17:13 Metformin HCl (Glucophage Er) 500 mg PO BIDM [facility] Stop: 02/17/20 17:44 Last Admin: 01/27/20 08:45 Dose: 500 mg Documented by: Methimazole (Tapazole) 10 mg PO DAILY AN[facility] Stop: 02/16/20 08:59 Last Admin: 01/27/20 08:45 Dose: 10 mg Documented by: Olanzapine (Zyprexa) 20 mg PO HS AN[facility]AR[facility] Stop: 02/18/20 21:59 Last Admin: 01/26/20 21:02 Dose: 20 mg Documented by: Olanzapine (Zyprexa) 5 mg PO DAILY PRN PRN Reason: psychosis/anxiety Stop: 02/22/20 08:59 Last Admin: 01/26/20 15:52 Dose: 5 mg Documented by: Sodium Chloride ([place] Nasal) 1 - 2 sprays NA PRN PRN PRN Reason: Nasal Dryness/Congestion Stop: 02/15/20 17:13 Mental Health & Subst Abuse Tx Psychiatrist Name of Psychiatrist: Irma Card Psychiatrist's Date of Appointment with Psychiatrist: 01/31/20 Time of Appointment with Psychiatrist: 9:30 a.m. Psychiatric Appointment Comment: Telehealth Therapist Name of Therapist: Irma Holguin Therapist's Date of Therapist Appointment: 01/31/20 Time of Therapist Appointment: 3:00 p.m. Therapy Appointment Comment: Telehealth Materials Technician Name of Materials Technician: [facility] Phone Number for Materials Technician: [phone] Date of Appointment with Materials Technician: 01/28/20 Time of Appointment with Materials Technician: 10:30 a.m. Case Management Appointment Comment: By telephone Post Discharge Appointments Primary Care Physician Name Of Family Doctor: [facility] Date of Appointment with PCP: 01/29/20 Time of Appointment with PCP: 11:00 a.m. (In person) Provider Appointment Comment: Tina Baylee Barnett, [place] [address] Contact Information Discharge Discharge Address: [address] [place] [address], [place] [address] Contact Information Comment: [facility]
[2020-01-27] MEDS: OLANZapine 5 MG TABLET PO PRN (13:05)
[2020-01-27] MEDS: ATORVASTATIN 40 MG TAB PO SCH (21:11)
[2020-01-27] MEDS: BENZTROPINE MESYLATE 1 MG TAB PO SCH (21:12)
[2020-01-27] MEDS: OLANZapine 20 MG TABLET PO SCH (21:13)
[2020-01-28] MEDS: INSULIN ASPART 100 UNITS/ML 3 ML PEN SC SCH ×4 (08:48→20:42)
[2020-01-28] MEDS: METFORMIN HCL ER 500 MG TABCR PO SCH ×2 (08:49→17:38)
[2020-01-28] MEDS: glipiZIDE 5 MG TAB PO SCH ×2 (08:49→17:38)
[2020-01-28] MEDS: hydroCHLOROthiazide 25 MG TAB PO SCH (08:49)
[2020-01-28] MEDS: INSULIN GLARGINE 100 UNIT/ML VIAL SC SCH ×2 (08:49→22:27)
[2020-01-28] MEDS: ASPIRIN 81 MG ECTAB PO SCH (08:49)
[2020-01-28] MEDS: methIMAzole 5 MG TABLET PO SCH (08:50)
[2020-01-28] MEDS: CYANOCOBALAMIN 500 MCG TABLET (VITAMIN B-12) PO SCH (08:51)
[2020-01-28] MEDS: FENOFIBRATE NANOCRYSTALLIZED 145 MG TABLET PO SCH (08:51)
[2020-01-28] MEDS: lisinopriL 40 MG TAB PO SCH (08:51)
--- NOTE | 2020-01-28 09:37 | Psychiatric Progress Note ---
Date of Service January 28, 2020 Impression / Recommendations Impression 55-year-old female with schizoaffective disorder depressed type, who was last on the unit several months ago, and presented with mood instability, paranoia, hallucinations, delusions of reference, and suicidality in the context of nonadherence with outpatient meds/insulin for no clear reason. She is admitted voluntarily, and willing to take some medications and attend groups. She is refusing insulin, and blood sugar has been slightly elevated. Reviewed with patient option of converting to a different med for FERNANDEZ, which she is declining. She is improving with resumption of olanzapine, but is only willing to take 20 mg at bedtime and does not want the dose titrated further. She did, however, agree to a 5mg dose of olanzapine that can be offered/requested as needed for paranoia/delusions. We will need to explore her outpatient supports, as her daily structure has been negatively impacted by the pandemic and associated restrictions. She continues to have paranoia and delusions, at times implicating others on the unit, and continues to refuse her medications for medical conditions, including insulin, with elevated blood sugar. Specifically, patient had started to incorporate her roommate on the unit in her delusional beliefs so private room was pursued. Inpatient treatment remains medically necessary due to the severity of her symptoms and risk for harm to both herself and others if discharged. (1) Schizoaffective disorder, depressive type: 01/17/20 -Currently, the patient is experiencing symptoms consistent with the depressed phase of her schizoaffective disorder, depressed type. She describes depressed mood, difficulty sleeping, feelings of hopelessness, helplessness and worthlessness. She also endorses suicidal ideation with specific thoughts of committing suicide by overdose. There is a past history of suicide attempts by overdose. The [facility] and has been placed on suicide observations. She will be encouraged to participate actively in individual, group, activity, and, as required, remote family interventions (telephonically) due to safety concerns related to the COVID-19 crisis. -We will continue to offer the patient olanzapine at her outpatient dose, orally, and we will offer a couple that with an antiemetic given her complaint that it causes nausea. Will be necessary with the patient continues to refuse oral psychiatric medications given the severity of her illness and the unlikelihood that she will recover without the use of antipsychotic/mood stabilizing medications. -We will also continue to offer the patient venlafaxine 75 mg daily for depression. 01/17--compliance to previous regimen is improving and psychotic symptoms appear to be lessening from presentation. 01/18--will d/c Effexor XR as she has refused in am and hopefully can just focus on insulin/diabetes regimen. Zyprexa 20 mg daily and monitor. Prefer lower dose if not taking insulin consistently and here sugars seem pretty controlled due to diet monitoring if not also lower dose. Sporadic use of Effexor XR can result in discontinuation syndrome which makes her more likely to misattribute somatic cues and refuse other medications. 01/20--continue olanzapine. Continue to encourage medication adherence, patient had been refusing venlafaxine, but now recognizing that she has been more depressed and anxious and may be willing to resume it, but will need to be willing to take it daily. --Reviewed fasting labs: Hemoglobin A1c 8.5%, FLP from 06/2019 was normal with the exception of triglycerides 319. 01/21 --Continue olanzapine 20mg at HS. She is willing for a dose of 5mg to be offered/requested as needed for paranoia/delusions. --Pt continues to report delusions and anxiety to staff, reports ongoing suicidality related to these delusional thoughts --Pt will still need a family meeting involving her outpatient supports, will continue to discuss though she has not yet been ready to participate in this just yet 01/22 - Continue current medication regimen, pt reporting prn olanzapine and hydroxyzine has been beneficial - Continues to report delusions, but feeling more comfortable reality testing after a phone conversation with her therapist yesterday afternoon - Pt agreeable with scheduling a family meeting with her transplant case manager, declining to involve mother in treatment. 01/23 - Continue current medication regimen. Pt reports she feels spaced out and tired with olanzapine and hydroxyzine but she prefers this feeling over unpleasant delusional thoughts. Pt was reminded that she can request prn olanzapine if her delusion gets worse. - Family meeting with her mother and her transplant case manager was productive and they came up with aftercare plan together. She will continue to reside at [facility], attending day programs and pt's mother told her that she will support her. - Reports ongoing delusions but pt feels more confident that they are not reality based thoughts and will disappear with her coping skills eventually. 01/24 -Increase in paranoia last evening; encouraged her to accept a higher dose of olanzapine, which she has thus far been unwilling to do, but did take a 5 mg as needed dose yesterday. -Continue to encourage group attendance and participation, reality testing, and improved medication compliance. 01/25 -Continue current medications and encouraged her to utilize the olanzapine 5 mg as needed dose. 01/26 - Continue current medication regimen - patient reporting ongoing utilization of olanzapine as needed which she claims is beneficial - Pt continues to endorse delusional and paranoid thoughts - now believing that her roommate is working with Hitler - Due to recently incorporating her roommate into her delusions with pretty significant intensity, we will order a MNPR for the patient 01/27 - Continue current medication regimen - Pt appears to be having a better morning thus far regarding her ability to reality test distressing delusional thoughts - Based on the level to which the patient incorporated her roommate into these thoughts over the weekend, we will continue MNPR until she is demonstrating evidence of reduced preoccupation with delusional thoughts (2) Suicidal ideation: 01/17/20 -The patient has been placed on suicide precautions and is being actively monitored and treated on the locked behavioral unit. -She has been referred for individual, group, and activity therapies with a primary goal of helping the patient develop improved individual coping strategies in anticipation of return to the community. -We will encourage the patient to except her antidepressant medication, currently venlafaxine 75 mg daily. -We are also encouraging the patient to accept olanzapine 30 mg at bedtime, while discussing with the patient options of switching to a medication that would allow us to offer her intramuscular Depo medications for convenience and adherence. -We will attempt to address the patient's complaints of side effects from her medication, such as nausea, with medications intended to provide symptomatic relief Reviewed 01/18/2001/21 - Reports ongoing SI related to her continued delusions/paranoia 01/22 - Ongoing SI 01/23 - Denies suicidal ideation today. -denying acute SI, but reporting ongoing delusions of persecution and severe guilt related to feeling she is responsible for "natural disasters" and tragic event such as 05/08. 01/27 - Denies SI today (3) Diabetic nephropathy associated with type 2 diabetes mellitus: 01/17/20 -The patient's blood glucose levels will be monitored treated per protocol. Reviewed 01/18/20. 01/20 -patient is taking glipizide and metformin, but refusing insulin. Glucose levels have been in the 120s to 250s. Hemoglobin A1c 8.5%, with estimated average glucose of 197. 01/23 - Pt's glucose at dinner time was 351 and Lantus 70 unit was given. Glucose levels today have been in the 180s to 200s. 01/24 -patient continues to refuse her insulin, although did except 1 dose last evening when she had a BG of 324. Attempted diabetes education, but she is poorly receptive and struggles to explain the reasons that she has been refusing insulin. Inventory Assets Strengths: Intelligence, active support from her family, good relationship with outpatient providers, supportive living environment. Needs: Improved mood; resolution of active suicidality; improved medication adherence; enhanced individual coping strategies. Risk Factors Assessment Male: No : Yes Do You Have Access To A Gun?: No Health Problems: Yes Mental Health Diagnoses: Yes Substance Use Disorders: No Previous Attempt: Yes Previous Attempt; Highly Lethal: No Previous Attempt; Planned: Yes Previous Attempt; Didn't Tell Anyone: No Family History of Suicide: No Previous Psychiatric Hospitalization: Yes Hopelessness: No Smoker: No Protective Factors Assessment Sabianist Beliefs: No : No Responsible for Young Children: No Employed: No Stable Relationships: Yes Supportive Family: Yes Good Rapport with Provider: Yes Absence of Any Risk Factors Above: No Interval History Identifying Information AMADO OLSON is a 55-year-old F who lives in a residential facility, [facility], in [place], has a history of schizoaffective disorder, depressed type, and was admitted on 01/16/20 17:14 on a 201 voluntary commitment after she presented to the emergency department with depression, suicidal ideation, and a plan to overdose. Chief Complaint "Up and down - but it got a little better yesterday." Review of Systems Notes Constitutional: denied Cardiovascular: denied Respiratory: denied Gastrointestinal: denied Neurological: denied Psychiatric: denies symptoms other than stated above Total of at least 10 systems reviewed, pertinent positives as above and in HPI. Sleep Information Total Hours of Sleep: 7.25 Sleep Comments: pt appeared to sleep 1.5 hrs during evening shift. pt awoke x1 and requested an orange juice. pt pacing the hallway for about 5 minutes.pt on q-15 minute checks Meal Information Percent Meal Consumed - Breakfast: 30 Percent Meal Consumed - Lunch: 100 Percent Meal Consumed - Dinner: 100 Subjective Subjective Patient was seen & assessed and interval progress reviewed with nursing and social work. Staff report the patient had attending group programming last evening, even exceeding her personal goal of getting to only on group. Pt did rate her mood a 6/10 and "anxious" last evening. Pt was seen today to assess progress since admission. Pt states she is feeling "up and down" so far today, but admits "it got a little better yesterday." Pt states that by "better" she means "calmer and more hopeful." We discussed her preoccupation yesterday with her roommate being incorporated into delusional thoughts, and she states this is improved a bit this morning. She admits that "I struggle still a little bit" with reality testing. She reports she was encouraged to attend group programming last evening to offer distraction from these intrusive thoughts, which she believes was helpful. We did discuss these thoughts in more detail, as patient does not clearly describe them as hallucinations or voices but admits the thoughts are not her own. She does report that often saying a prayer (which she then recites) is helpful at reducing her level of distress. Pt does admit to having been on SSRIs/SNRIs in the past, but reports these medications were never effective for the thoughts, only to "provide an artificial high, and I'd rather control my mood naturally." Pt denies SI at this time, but still admits to feeling overwhelmed intermittently with the delusional thoughts. She denies additional needs at this time and feels her current medication regimen is beneficial, reporting specific benefit from prn olanzapine. Physical Exam Psychiatric Orientation: alert, oriented x 3 and cooperative Apperance: appropriately dressed, appropriately groomed and appeared stated age Eye Contact: good eye contact Motor Behavior: steady gait and station and no abnormal motor movements Speech: normal rate/rhythm/volume of speech Affect: + anxious affect (though appearing a bit calmer when compared to yesterday) and mood congruent with affect Mood: + anxious mood ("up and down", reporting distress from "thoughts") Thought Process: goal directed thought process and thought association intact Thought Content: + preoccupation (with various delusional thoughts, today focused on members of her judaism), + delusions (but reports better ability to reality test this morning) and + persecution Suicidal Thoughts: denies suicidal thoughts Homicidal Thoughts: denies homicidal thoughts Hallucinations: no auditory hallucinations and no visual hallucinations but does report intrusive delusional thoughts, less distressing today per patient's report Cognition: recent memory grossly intact, attention grossly intact and language grossly intact Insight: + fair insight Judgement: + limited judgement Vital Signs (Past 24 Hours) Last Vital Signs Temp 36.6 C 01/28/20 06:00 Pulse 73 01/28/20 06:24 Resp 18 01/28/20 06:00 BP 124/83 01/28/20 06:24 Pulse Ox 96 01/16/20 18:16 Results & Data ([facility]) Laboratory Results Laboratory Results - last 24 hr 01/27/20 01/27/20 01/27/20 12:12 17:13 21:04 POC Glucose 262 H 310 H* 209 H 01/28/20 08:10 POC Glucose 227 H Current Inpatient Medications Current Inpatient Medications: Current Inpatient Medications Acetaminophen (Tylenol) 650 mg PO Q4H PRN PRN Reason: Headache or Minor Fever Stop: 02/15/20 17:13 Al Hydrox/Mg Hydrox/Simethicone (Maalox) 30 ml PO Q4H PRN PRN Reason: GI Upset Stop: 02/15/20 17:13 Aspirin (Ecotrin Ectab) 81 mg PO DAILY ANNAMARIA Stop: 02/16/20 08:59 Last Admin: 01/28/20 08:49 Dose: 81 mg Documented by: Atorvastatin Calcium (Lipitor) 80 mg PO QPM ANNAMARIA Stop: 02/15/20 20:59 Last Admin: 01/27/20 21:11 Dose: 40 mg Documented by: Benztropine Mesylate (Cogentin) 1 mg PO HS ANNAMARIA Stop: 02/15/20 20:59 Last Admin: 01/27/20 21:12 Dose: 1 mg Documented by: Bismuth Subsalicylate (Kaopectate) 15 ml PO PRN PRN PRN Reason: Loose Stool Stop: 02/15/20 17:13 Cyanocobalamin (Vitamin B-12) 1,000 mcg PO DAILY ANNAMARIA Stop: 02/16/20 08:59 Last Admin: 01/28/20 08:51 Dose: 1,000 mcg Documented by: Fenofibrate (Tricor) 145 mg PO DAILY [facility] Stop: 02/23/20 08:59 Last Admin: 01/28/20 08:51 Dose: 145 mg Documented by: Glipizide (Glucotrol) 10 mg PO BIDM [facility] Stop: 02/18/20 12:29 Last Admin: 01/28/20 08:49 Dose: 10 mg Documented by: Hydrochlorothiazide (Hctz) 25 mg PO DAILY [facility] Stop: 02/16/20 08:59 Last Admin: 01/28/20 08:49 Dose: 25 mg Documented by: Hydroxyzine HCl (Vistaril) 50 mg PO HSZ PRN PRN Reason: Insomnia Stop: 02/15/20 17:13 Last Admin: 01/28/20 01:24 Dose: 50 mg Documented by: Hydroxyzine HCl (Vistaril) 25 mg PO Q4H PRN PRN Reason: Anxiety Stop: 02/15/20 17:13 Last Admin: 01/22/20 03:11 Dose: 25 mg Documented by: Hydroxyzine HCl (Vistaril) 25 mg PO TID [facility] Stop: 02/15/20 20:59 Last Admin: 01/28/20 08:51 Dose: 25 mg Documented by: Insulin Aspart (Novolog Flexpen) 0 units SC ACHS [facility]; Protocol Stop: 02/15/20 21:59 Last Admin: 01/28/20 08:48 Dose: Not Given Documented by: Insulin Glargine (Lantus) 70 units SC BID [facility] Stop: 02/16/20 08:59 Last Admin: 01/28/20 08:49 Dose: 70 units Documented by: Lisinopril (Zestril) 40 mg PO DAILY [facility] Stop: 02/16/20 08:59 Last Admin: 01/28/20 08:51 Dose: 40 mg Documented by: Magnesium Hydroxide (Milk Of Magnesia) 30 ml PO DAILY PRN PRN Reason: Constipation Stop: 02/15/20 17:13 Metformin HCl (Glucophage Er) 500 mg PO BIDM [facility] Stop: 02/17/20 17:44 Last Admin: 01/28/20 08:49 Dose: 500 mg Documented by: Methimazole (Tapazole) 10 mg PO DAILY ANNAMARIA Stop: 02/16/20 08:59 Last Admin: 01/28/20 08:50 Dose: 5 mg Documented by: Olanzapine (Zyprexa) 20 mg PO HS ANNAMARIA Stop: 02/18/20 21:59 Last Admin: 01/27/20 21:13 Dose: 20 mg Documented by: Olanzapine (Zyprexa) 5 mg PO DAILY PRN PRN Reason: psychosis/anxiety Stop: 02/22/20 08:59 Last Admin: 01/27/20 13:05 Dose: 5 mg Documented by: Sodium Chloride (Ladson Nasal) 1 - 2 sprays NA PRN PRN PRN Reason: Nasal Dryness/Congestion Stop: 02/15/20 17:13 Mental Health & Subst Abuse Tx Psychiatrist Name of Psychiatrist: Irma Card Psychiatrist's Date of Appointment with Psychiatrist: 01/31/20 Time of Appointment with Psychiatrist: 9:30 a.m. Psychiatric Appointment Comment: Telehealth Therapist Name of Therapist: Irma Holguin Therapist's Date of Therapist Appointment: 01/31/20 Time of Therapist Appointment: 3:00 p.m. Therapy Appointment Comment: Telehealth Lei Maker Name of Lei Maker: [facility] Jakub Long Phone Number for Lei Maker: [phone] Date of Appointment with Lei Maker: 01/28/20 Time of Appointment with Lei Maker: 10:30 a.m. Case Management Appointment Comment: By telephone Post Discharge Appointments Primary Care Physician Name Of Family Doctor: [facility] Date of Appointment with PCP: 01/29/20 Time of Appointment with PCP: 11:00 a.m. (In person) Provider Appointment Comment: Tina Baylee Barnett, [place] [address] Contact Information Discharge Discharge Address: [address] [place] [id number] Contact Information Comment: [facility]
[2020-01-28] MEDS: OLANZapine 5 MG TABLET PO PRN (12:44)
[2020-01-28] MEDS: ATORVASTATIN 40 MG TAB PO SCH (21:08)
[2020-01-28] MEDS: BENZTROPINE MESYLATE 1 MG TAB PO SCH ×2 (21:09→21:14)
[2020-01-28] MEDS: OLANZapine 20 MG TABLET PO SCH (21:09)
[2020-01-29] MEDS: INSULIN ASPART 100 UNITS/ML 3 ML PEN SC SCH ×4 (08:37→20:24)
[2020-01-29] MEDS: INSULIN GLARGINE 100 UNIT/ML VIAL SC SCH ×2 (08:37→21:00)
[2020-01-29] MEDS: lisinopriL 40 MG TAB PO SCH (08:38)
[2020-01-29] MEDS: METFORMIN HCL ER 500 MG TABCR PO SCH ×2 (08:39→17:34)
[2020-01-29] MEDS: glipiZIDE 5 MG TAB PO SCH ×2 (08:39→18:33)
[2020-01-29] MEDS: methIMAzole 5 MG TABLET PO SCH (08:39)
[2020-01-29] MEDS: CYANOCOBALAMIN 500 MCG TABLET (VITAMIN B-12) PO SCH (08:39)
[2020-01-29] MEDS: ASPIRIN 81 MG ECTAB PO SCH (08:39)
[2020-01-29] MEDS: hydroCHLOROthiazide 25 MG TAB PO SCH (08:39)
[2020-01-29] MEDS: FENOFIBRATE NANOCRYSTALLIZED 145 MG TABLET PO SCH (08:40)
[2020-01-29] MEDS: OLANZapine 5 MG TABLET PO PRN (12:47)
--- NOTE | 2020-01-29 14:48 | Psychiatric Progress Note ---
Date of Service January 29, 2020 Impression / Recommendations Impression 55-year-old female with schizoaffective disorder depressed type, who was last on the unit several months ago, and presented with mood instability, paranoia, hallucinations, delusions of reference, and suicidality in the context of nonadherence with outpatient meds/insulin for no clear reason. She is admitted voluntarily, and willing to take some medications and attend groups. She is refusing insulin, and blood sugar has been slightly elevated. Reviewed with patient option of converting to a different med for FERNANDEZ, which she is declining. She is improving with resumption of olanzapine, but is only willing to take 20 mg at bedtime and does not want the dose titrated further. She did, however, agree to a 5mg dose of olanzapine that can be offered/requested as needed for paranoia/delusions. We will need to explore her outpatient supports, as her daily structure has been negatively impacted by the pandemic and associated restrictions. She continues to have paranoia and delusions, at times implicating others on the unit, and continues to refuse her medications for medical conditions, including insulin, with elevated blood sugar. Specifically, patient had started to incorporate her roommate on the unit in her delusional beliefs so private room was pursued. Inpatient treatment remains medically necessary due to the severity of her symptoms and risk for harm to both herself and others if discharged. (1) Schizoaffective disorder, depressive type: 01/17/20 -Currently, the patient is experiencing symptoms consistent with the depressed phase of her schizoaffective disorder, depressed type. She describes depressed mood, difficulty sleeping, feelings of hopelessness, helplessness and worthlessness. She also endorses suicidal ideation with specific thoughts of committing suicide by overdose. There is a past history of suicide attempts by overdose. The patient has been admitted to the [facility] unit and has been placed on suicide observations. She will be encouraged to participate actively in individual, group, activity, and, as required, remote family interventions (telephonically) due to safety concerns related to the COVID-19 crisis. -We will continue to offer the patient olanzapine at her outpatient dose, orally, and we will offer a couple that with an antiemetic given her complaint that it causes nausea. Will be necessary with the patient continues to refuse oral psychiatric medications given the severity of her illness and the unlikelihood that she will recover without the use of antipsychotic/mood stabilizing medications. -We will also continue to offer the patient venlafaxine 75 mg daily for depression. 01/17--compliance to previous regimen is improving and psychotic symptoms appear to be lessening from presentation. 01/18--will d/c Effexor XR as she has refused in am and hopefully can just focus on insulin/diabetes regimen. Zyprexa 20 mg daily and monitor. Prefer lower dose if not taking insulin consistently and here sugars seem pretty controlled due to diet monitoring if not also lower dose. Sporadic use of Effexor XR can result in discontinuation syndrome which makes her more likely to misattribute somatic cues and refuse other medications. 01/20--continue olanzapine. Continue to encourage medication adherence, patient had been refusing venlafaxine, but now recognizing that she has been more depressed and anxious and may be willing to resume it, but will need to be willing to take it daily. --Reviewed fasting labs: Hemoglobin A1c 8.5%, FLP from 06/2019 was normal with the exception of triglycerides 319. 01/21 --Continue olanzapine 20mg at HS. She is willing for a dose of 5mg to be offered/requested as needed for paranoia/delusions. --Pt continues to report delusions and anxiety to staff, reports ongoing suicidality related to these delusional thoughts --Pt will still need a family meeting involving her outpatient supports, will continue to discuss though she has not yet been ready to participate in this just yet 01/22 - Continue current medication regimen, pt reporting prn olanzapine and hydroxyzine has been beneficial - Continues to report delusions, but feeling more comfortable reality testing after a phone conversation with her therapist yesterday afternoon - Pt agreeable with scheduling a family meeting with her case management rn, declining to involve mother in treatment. 01/23 - Continue current medication regimen. Pt reports she feels spaced out and tired with olanzapine and hydroxyzine but she prefers this feeling over unpleasant delusional thoughts. Pt was reminded that she can request prn olanzapine if her delusion gets worse. - Family meeting with her mother and her case management rn was productive and they came up with aftercare plan together. She will continue to reside at [facility], attending day programs and pt's mother told her that she will support her. - Reports ongoing delusions but pt feels more confident that they are not reality based thoughts and will disappear with her coping skills eventually. 01/24 -Increase in paranoia last evening; encouraged her to accept a higher dose of olanzapine, which she has thus far been unwilling to do, but did take a 5 mg as needed dose yesterday. -Continue to encourage group attendance and participation, reality testing, and improved medication compliance. 01/25 -Continue current medications and encouraged her to utilize the olanzapine 5 mg as needed dose. 01/26 - Continue current medication regimen - patient reporting ongoing utilization of olanzapine as needed which she claims is beneficial - Pt continues to endorse delusional and paranoid thoughts - now believing that her roommate is working with [employer] - Due to recently incorporating her roommate into her delusions with pretty significant intensity, we will order a MNPR for the patient 01/27 - Continue current medication regimen - Pt appears to be having a better morning thus far regarding her ability to reality test distressing delusional thoughts - Based on the level to which the patient incorporated her roommate into these thoughts over the weekend, we will continue MNPR until she is demonstrating evidence of reduced preoccupation with delusional thoughts 01/28 - Continue current medication regimen. Patient declines increasing olanzapine to 25 mg and prefers taking as needed olanzapine 5 mg. - Increase in her paranoia last evening and this morning. Patient has been showing ongoing delusions with temporary improvement during the current hospital stay. -Given her increased paranoia and delusions, we will continue MNPR until she shows evidence of improved paranoia and delusions. (2) Suicidal ideation: 01/17/20 -The patient has been placed on suicide precautions and is being actively monitored and treated on the locked behavioral unit. -She has been referred for individual, group, and activity therapies with a primary goal of helping the patient develop improved individual coping strategies in anticipation of return to the community. -We will encourage the patient to except her antidepressant medication, currently venlafaxine 75 mg daily. -We are also encouraging the patient to accept olanzapine 30 mg at bedtime, while discussing with the patient options of switching to a medication that would allow us to offer her intramuscular Depo medications for convenience and adherence. -We will attempt to address the patient's complaints of side effects from her medication, such as nausea, with medications intended to provide symptomatic relief Reviewed 01/18/2001/21 - Reports ongoing SI related to her continued delusions/paranoia 01/22 - Ongoing SI 01/23 - Denies suicidal ideation today. 01/24- -denying acute SI, but reporting ongoing delusions of persecution and severe guilt related to feeling she is responsible for "natural disasters" and tragic event such as 05/08. 01/27 - Denies SI today 01/28 -Denies SI. (3) Diabetic nephropathy associated with type 2 diabetes mellitus: 01/17/20 -The patient's blood glucose levels will be monitored treated per protocol. Reviewed 01/18/20. 01/20 -patient is taking glipizide and metformin, but refusing insulin. Glucose levels have been in the 120s to 250s. Hemoglobin A1c 8.5%, with estimated avera ge glucose of 197. 01/23 - Pt's glucose at dinner time was 351 and Lantus 70 unit was given. Glucose levels today have been in the 180s to 200s. 01/24 -patient continues to refuse her insulin, although did except 1 dose last evening when she had a BG of 324. Attempted diabetes education, but she is poorly receptive and struggles to explain the reasons that she has been refusing insulin. 28 address this diabetes or I have this very my HPI Aspirin Inventory Assets Strengths: Intelligence, active support from her family, good relationship with outpatient providers, supportive living environment. Needs: Improved mood; resolution of active suicidality; improved medication a dherence; enhanced individual coping strategies. Risk Factors Assessment Male: No : Yes Do You Have Access To A Gun?: No Health Problems: Yes Mental Health Diagnoses: Yes Substance Use Disorders: No Previous Attempt: Yes Previous Attempt; Highly Lethal: No Previous Attempt; Planned: Yes Previous Attempt; Didn't Tell Anyone: No Family History of Suicide: No Previous Psychiatric Hospitalization: Yes Hopelessness: No Smoker: No Protective Factors Assessment Religion Beliefs: No : No Responsible for Young Children: No Employed: No Stable Relationships: Yes Supportive Family: Yes Good Rapport with Provider: Yes Absence of Any Risk Factors Above: No Interval History Identifying Information AMADO OLSON is a 55-year-old F who lives in a residential facility, [facility], in [place], has a history of schizoaffective disorder, depressed type, and was admitted on 01/16/20 17:14 on a 201 voluntary commitment after she presented to the emergency department with depression, suicidal ideation, and a plan to overdose. Chief Complaint "[I am getting better slowly]". Review of Systems Notes Constitutional: reports tired cardiovascular: denied Respiratory: denied GI: denied Neurologic: denied Psychiatric: denies symptoms other than stated above Remainder of 10 body systems also reviewed and denied other than noted above. Sleep Information Total Hours of Sleep: 5 Sleep Comments: pt appeared to sleep 1.5 hrs during evening shift. pt awoke x1 and requested an orange juice. pt pacing the hallway for about 5 minutes.pt on q-15 minute checks Meal Information Percent Meal Consumed - Breakfast: 100 Percent Meal Consumed - Lunch: 100 Percent Meal Consumed - Dinner: 80 Subjective Subjective Patient was seen & assessed and interval progress reviewed with treatment team. Medical staff reports that she had a rough evening yesterday due to negative thoughts and delusions. She expressed her concern to her mom over the phone last night and her negative thoughts were processed with our long term care social worker yesterday. She attended some groups and rated her mood 5/10 in the community meeting, saying "confused." Her glucose before dinner was 339 and she agreed to take NovoLog 26 units last evening. Her glucose this morning was 260. She slept 5 hours last night. Patient was seen today to assess progress since admission. Patient states that she is pretty tired today because of all the negative thoughts and delusions but feels slightly better after taking as needed 5 mg olanzapine before lunchtime, even though she feels drowsy. She states "oli eone tried to steal my part out of body and get money from my baby. "When she was asked who someone is, she says that she does not know who that is and why they want to do that. This scene is visualized occasionally and this is pretty scary and gory, when she sees herself bleeding in the stomach without anything inside the body. This negative thought comes and goes and sometimes it makes her suicidal because she feels so depressed. She also had auditory hallucination yesterday, which says "I am God and no one, including your mother, your family and friends, likes you, "which made her bad. She says the voices come out of blackness and she cannot make any figures out of this blackness. It happens almost every day or every other day. She states, " all these things don't make sense and they are not real. But it is scary when it happnes." She feels better when she goes out to groups or talks with other people. She also prays whenever it happens when she is not in the hospital. She has been utilizing as needed olanzapine 5 mg for the past 4 days but still declines to increase olanzapine to 25 mg or schedule olanzapine 5 mg in the morning since she is afraid of side effects with increased dose of olanzapine. She does not want to accept insulin injections until her glucose goes higher than 300. She does not have any worsening suicidal ideation. She also expresses her apprec iation that our staff takes care of her really well and she feels safe in the hospital. Physical Exam Psychiatric Orientation: alert and oriented x 3 Apperance: appropriately dressed and + disheveled Eye Contact: + fair eye contact Motor Behavior: no abnormal motor movements Speech: normal rate/rhythm/volume of speech Affect: + depressed affect and + blunted affect Mood: + depressed mood and + dysphoric mood Thought Content: + cognitive distortions and + delusions Suicidal Thoughts: denies suicidal thoughts Homicidal Thoughts: denies homicidal thoughts Hallucinations: + auditory hallucinations; no visual hallucinations Cognition: language grossly intact Estimated Intelligence: consistent with education level Insight: + poor insight Judgement: + poor judgement Vital Signs (Past 24 Hours) Last Vital Signs Temp 36.8 C 01/29/20 06:53 Pulse 81 01/29/20 06:53 Resp 18 01/29/20 06:53 BP 132/84 01/29/20 06:53 Pulse Ox 96 01/16/20 18:16 Results & Data ([facility]) Laboratory Results Laboratory Results - last 24 hr 01/28/20 01/28/20 01/28/20 17:35 20:30 21:50 POC Glucose 228 H 344 H* 339 H* 01/29/20 01/29/20 08:30 12:23 POC Glucose 260 H 305 H* Current Inpatient Medications Current Inpatient Medications: Current Inpatient Medications Acetaminophen (Tylenol) 650 mg PO Q4H PRN PRN Reason: Headache or Minor Fever Stop: 02/15/20 17:13 Al Hydrox/Mg Hydrox/Simethicone (Maalox) 30 ml PO Q4H PRN PRN Reason: GI Upset Stop: 02/15/20 17:13 Aspirin (Ecotrin Ectab) 81 mg PO DAILY [facility] Stop: 02/16/20 08:59 Last Admin: 01/29/20 08:39 Dose: 81 mg Documented by: Atorvastatin Calcium (Lipitor) 80 mg PO QPM [facility] Stop: 02/15/20 20:59 Last Admin: 01/28/20 21:08 Dose: 40 mg Documented by: Benztropine Mesylate (Cogentin) 1 mg PO HS [facility] Stop: 02/15/20 20:59 Last Admin: 01/28/20 21:14 Dose: Not Given Documented by: Bismuth Subsalicylate (Kaopectate) 15 ml PO PRN PRN PRN Reason: Loose Stool Stop: 02/15/20 17:13 Cyanocobalamin (Vitamin B-12) 1,000 mcg PO DAILY [facility] Stop: 02/16/20 08:59 Last Admin: 01/29/20 08:39 Dose: 1,000 mcg Documented by: Fenofibrate (Tricor) 145 mg PO DAILY [facility] Stop: 02/23/20 08:59 Last Admin: 01/29/20 08:40 Dose: 145 mg Documented by: Glipizide (Glucotrol) 10 mg PO BIDM [facility] Stop: 02/18/20 12:29 Last Admin: 01/29/20 08:39 Dose: 10 mg Documented by: Hydrochlorothiazide (Hctz) 25 mg PO DAILY [facility] Stop: 02/16/20 08:59 Last Admin: 01/29/20 08:39 Dose: 25 mg Documented by: Hydroxyzine HCl (Vistaril) 50 mg PO HSZ PRN PRN Reason: Insomnia Stop: 02/15/20 17:13 Last Admin: 01/29/20 02:17 Dose: 50 mg Documented by: Hydroxyzine HCl (Vistaril) 25 mg PO Q4H PRN PRN Reason: Anxiety Stop: 02/15/20 17:13 Last Admin: 01/22/20 03:11 Dose: 25 mg Documented by: Hydroxyzine HCl (Vistaril) 25 mg PO TID [facility] Stop: 02/15/20 20:59 Last Admin: 01/29/20 08:40 Dose: 25 mg Documented by: Insulin Aspart (Novolog Flexpen) 0 units SC [facility]; Protocol Stop: 02/15/20 21:59 Last Admin: 01/29/20 12:55 Dose: 30 units Documented by: Insulin Glargine (Lantus) 70 units SC BID [facility] Stop: 02/16/20 08:59 Last Admin: 01/29/20 08:37 Dose: Not Given Documented by: Lisinopril (Zestril) 40 mg PO DAILY [facility] Stop: 02/16/20 08:59 Last Admin: 01/29/20 08:38 Dose: 40 mg Documented by: Magnesium Hydroxide (Milk Of Magnesia) 30 ml PO DAILY PRN PRN Reason: Constipation Stop: 02/15/20 17:13 Metformin HCl (Glucophage Er) 500 mg PO BIDM [facility] Stop: 02/17/20 17:44 Last Admin: 01/29/20 08:39 Dose: 500 mg Documented by: Methimazole (Tapazole) 10 mg PO DAILY [facility] Stop: 02/16/20 08:59 Last Admin: 01/29/20 08:39 Dose: 5 mg Documented by: Olanzapine (Zyprexa) 20 mg PO HS [facility] Stop: 02/18/20 21:59 Last Admin: 01/28/20 21:09 Dose: 20 mg Documented by: Olanzapine (Zyprexa) 5 mg PO DAILY PRN PRN Reason: psychosis/anxiety Stop: 02/22/20 08:59 Last Admin: 01/29/20 12:47 Dose: 5 mg Documented by: Sodium Chloride (Hardy Nasal) 1 - 2 sprays NA PRN PRN PRN Reason: Nasal Dryness/Congestion Stop: 02/15/20 17:13 Mental Health & Subst Abuse Tx Psychiatrist Name of Psychiatrist: Irma Card Psychiatrist's Date of Appointment with Psychiatrist: 02/07/20 Time of Appointment with Psychiatrist: 2:00 p.m. Psychiatric Appointment Comment: Telehealth, In person, or by phone - your preference Therapist Name of Therapist: Irma Holguin Therapist's Date of Therapist Appointment: 02/06/20 Time of Therapist Appointment: 10:00 a.m. Therapy Appointment Comment: Telehealth, In person in [place], or by phone - your preference Jr. Systems Administrator Name of Jr. Systems Administrator: [facility] Phone Number for Jr. Systems Administrator: [phone] Date of Appointment with Jr. Systems Administrator: 01/30/20 Time of Appointment with Jr. Systems Administrator: 1:00 p.m. Case Management Appointment Comment: By telephone Post Discharge Appointments Primary Care Physician Name Of Family Doctor: [facility] Date of Appointment with PCP: 02/07/20 Time of Appointment with PCP: 11:20 a.m. (In person) Provider Appointment Comment: Sheldon Barnett, [place] [address] Contact Information Discharge Discharge Address: [address] [place] [id number] Contact Information Comment: [facility]
[2020-01-29] MEDS: ATORVASTATIN 40 MG TAB PO SCH (20:34)
[2020-01-29] MEDS: OLANZapine 20 MG TABLET PO SCH (20:34)
[2020-01-29] MEDS: BENZTROPINE MESYLATE 1 MG TAB PO SCH (20:35)
[2020-01-30] MEDS: ASPIRIN 81 MG ECTAB PO SCH (08:59)
[2020-01-30] MEDS: glipiZIDE 5 MG TAB PO SCH ×2 (08:59→17:47)
[2020-01-30] MEDS: METFORMIN HCL ER 500 MG TABCR PO SCH ×2 (08:59→17:47)
[2020-01-30] MEDS: methIMAzole 5 MG TABLET PO SCH (09:00)
[2020-01-30] MEDS: hydroCHLOROthiazide 25 MG TAB PO SCH (09:00)
[2020-01-30] MEDS: FENOFIBRATE NANOCRYSTALLIZED 145 MG TABLET PO SCH (09:01)
[2020-01-30] MEDS: CYANOCOBALAMIN 500 MCG TABLET (VITAMIN B-12) PO SCH (09:01)
[2020-01-30] MEDS: lisinopriL 40 MG TAB PO SCH (09:01)
[2020-01-30] MEDS: INSULIN ASPART 100 UNITS/ML 3 ML PEN SC SCH ×4 (09:09→20:58)
[2020-01-30] MEDS: INSULIN GLARGINE 100 UNIT/ML VIAL SC SCH ×2 (09:10→22:01)
--- NOTE | 2020-01-30 12:09 | Psychiatric Progress Note ---
Date of Service January 30, 2020 Impression / Recommendations Impression 55-year-old female with schizoaffective disorder depressed type, who was last on the unit several months ago, and presented with mood instability, paranoia, hallucinations, delusions of reference, and suicidality in the context of nonadherence with outpatient meds/insulin for no clear reason. She is admitted voluntarily, and willing to take some medications and attend groups. She is refusing insulin, and blood sugar has been slightly elevated. Reviewed with patient option of converting to a different med for FERNANDEZ, which she is declining. She is improving with resumption of olanzapine, but is only willing to take 20 mg at bedtime and does not want the dose titrated further. She did, however, agree to a 5mg dose of olanzapine that can be offered/requested as needed for paranoia/delusions. We will need to explore her outpatient supports, as her daily structure has been negatively impacted by the pandemic and associated restrictions. She continues to have paranoia and delusions, at times implicating others on the unit, and continues to refuse her medications for medical conditions, including insulin, with elevated blood sugar. Specifically, patient had started to incorporate her roommate on the unit in her delusional beliefs so private room was pursued. Inpatient treatment remains medically necessary due to the severity of her symptoms and risk for harm to both herself and others if discharged. (1) Schizoaffective disorder, depressive type: 01/17/20 -Currently, the patient is experiencing symptoms consistent with the depressed phase of her schizoaffective disorder, depressed type. She describes depressed mood, difficulty sleeping, feelings of hopelessness, helplessness and worthlessness. She also endorses suicidal ideation with specific thoughts of committing suicide by overdose. There is a past history of suicide attempts by overdose. The patient has been admitted to the [facility] behavioral health unit and has been placed on suicide observations. She will be encouraged to participate actively in individual, group, activity, and, as required, remote family interventions (telephonically) due to safety concerns related to the COVID-19 crisis. -We will continue to offer the patient olanzapine at her outpatient dose, orally, and we will offer a couple that with an antiemetic given her complaint that it causes nausea. Will be necessary with the patient continues to refuse oral psychiatric medications given the severity of her illness and the unlikelihood that she will recover without the use of antipsychotic/mood stabilizing medications. -We will also continue to offer the patient venlafaxine 75 mg daily for depression. 01/17--compliance to previous regimen is improving and psychotic symptoms appear to be lessening from presentation. 01/18--will d/c Effexor XR as she has refused in am and hopefully can just focus on insulin/diabetes regimen. Zyprexa 20 mg daily and monitor. Prefer lower dose if not taking insulin consistently and here sugars seem pretty controlled due to diet monitoring if not also lower dose. Sporadic use of Effexor XR can result in discontinuation syndrome which makes her more likely to misattribute somatic cues and refuse other medications. 01/20--continue olanzapine. Continue to encourage medication adherence, patient had been refusing venlafaxine, but now recognizing that she has been more depressed and anxious and may be willing to resume it, but will need to be willing to take it daily. --Reviewed fasting labs: Hemoglobin A1c 8.5%, FLP from 06/2019 was normal with the exception of triglycerides 319. 01/21 --Continue olanzapine 20mg at HS. She is willing for a dose of 5mg to be offered/requested as needed for paranoia/delusions. --Pt continues to report delusions and anxiety to staff, reports ongoing suicidality related to these delusional thoughts --Pt will still need a family meeting involving her outpatient supports, will continue to discuss though she has not yet been ready to participate in this just yet 01/22 - Continue current medication regimen, pt reporting prn olanzapine and hydroxyzine has been beneficial - Continues to report delusions, but feeling more comfortable reality testing after a phone conversation with her therapist yesterday afternoon - Pt agreeable with scheduling a family meeting with her nurse case manager, declining to involve mother in treatment. 01/23 - Continue current medication regimen. Pt reports she feels spaced out and tired with olanzapine and hydroxyzine but she prefers this feeling over unpleasant delusional thoughts. Pt was reminded that she can request prn olanzapine if her delusion gets worse. - Family meeting with her mother and her nurse case manager was productive and they came up with aftercare plan together. She will continue to reside at [facility], attending day programs and pt's mother told her that she will support her. - Reports ongoing delusions but pt feels more confident that they are not reality based thoughts and will disappear with her coping skills eventually. 01/24 -Increase in paranoia last evening; encouraged her to accept a higher dose of olanzapine, which she has thus far been unwilling to do, but did take a 5 mg as needed dose yesterday. -Continue to encourage group attendance and participation, reality testing, and improved medication compliance. 01/25 -Continue current medications and encouraged her to utilize the olanzapine 5 mg as needed dose. 01/26 - Continue current medication regimen - patient reporting ongoing utilization of olanzapine as needed which she claims is beneficial - Pt continues to endorse delusional and paranoid thoughts - now believing that her roommate is working with [employer] - Due to recently incorporating her roommate into her delusions with pretty significant intensity, we will order a MNPR for the patient 01/27 - Continue current medication regimen - Pt appears to be having a better morning thus far regarding her ability to reality test distressing delusional thoughts - Based on the level to which the patient incorporated her roommate into these thoughts over the weekend, we will continue MNPR until she is demonstrating evidence of reduced preoccupation with delusional thoughts 01/28 - Continue current medication regimen. Patient declines increasing olanzapine to 25 mg and prefers taking as needed olanzapine 5 mg. - Increase in her paranoia last evening and this morning. Patient has been showing ongoing delusions with temporary improvement during the current hospital stay. -Given her increased paranoia and delusions, we will continue MNPR until she shows evidence of improved paranoia and delusions. 01/29 - Continue current medication regimen. - Continue MNPR. Patient is denying delusions at this time but admits to intermittent struggles with reality testing and is not able to guarantee ability to appropriately tolerate a roommate when the delusions recur. Will continue to reassess. (2) Suicidal ideation: 01/17/20 -The patient has been placed on suicide precautions and is being actively monitored and treated on the locked behavioral unit. -She has been referred for individual, group, and activity therapies with a primary goal of helping the patient develop improved individual coping strategies in anticipation of return to the community. -We will encourage the patient to except her antidepressant medication, currently venlafaxine 75 mg daily. -We are also encouraging the patient to accept olanzapine 30 mg at bedtime, while discussing with the patient options of switching to a medication that would allow us to offer her intramuscular Depo medications for convenience and adherence. -We will attempt to address the patient's complaints of side effects from her medication, such as nausea, with medications intended to provide symptomatic relief Reviewed 01/18/2001/21 - Reports ongoing SI related to her continued delusions/paranoia 01/22 - Ongoing SI 01/23 - Denies suicidal ideation today. -denying acute SI, but reporting ongoing delusions of persecution and severe guilt related to feeling she is responsible for "natural disasters" and tragic event such as 05/08. 01/27 - Denies SI today 01/28 - 01/29 -Denies SI. (3) Diabetic nephropathy associated with type 2 diabetes mellitus: 01/17/20 -The patient's blood glucose levels will be monitored treated per protocol. Reviewed 01/18/20. 01/20 -patient is taking glipizide and metformin, but refusing insulin. Glucose levels have been in the 120s to 250s. Hemoglobin A1c 8.5%, with estimated average glucose of 197. 01/23 - Pt's glucose at dinner time was 351 and Lantus 70 unit was given. Glucose levels today have been in the 180s to 200s. 01/24 -patient continues to refuse her insulin, although did except 1 dose last evening when she had a BG of 324. Attempted diabetes education, but she is poo rly receptive and struggles to explain the reasons that she has been refusing insulin. 28 address this diabetes or I have this very my HPI Aspirin Inventory Assets Strengths: Intelligence, active support from her family, good relationship with outpatient providers, supportive living environment. Needs: Improved mood; resolution of active suicidality; improved medication adherence; enhanced individual coping strategies. Risk Factors Assessment Male: No : Yes Do You Have Access To A Gun?: No Health Problems: Yes Mental Health Diagnoses: Yes Substance Use Disorders: No Previous Attempt: Yes Previous Attempt; Highly Lethal: No Previous Attempt; Planned: Yes Previous Attempt; Didn't Tell Anyone: No Family History of Suicide: No Previous Psychiatric Hospitalization: Yes Hopelessness: No Smoker: No Protective Factors Assessment Jain Beliefs: No : No Responsible for Young Children: No Employed: No Stable Relationships: Yes Supportive Family: Yes Good Rapport with Provider: Yes Absence of Any Risk Factors Above: No Interval History Identifying Information AMADO OLSON is a 55-year-old F who lives in a residential facility, [facility], in [place], has a history of schizoaffective disorder, depressed type, and was admitted on 01/16/20 17:14 on a 201 voluntary commitment after she presented to the emergency department with depression, suicidal ideation, and a plan to overdose. Chief Complaint "[I feel much better today]". Review of Systems Notes Constitutional: denied cardiovascular: denied Respiratory: denied GI: denied Neurologic: reports mild headache Psychiatric: denies symptoms other than stated above Remainder of 10 body systems also reviewed and denied other than noted above. Sleep Information Total Hours of Sleep: 6.25 Sleep Comments: pt appeared to sleep 1.5 hrs during evening shift. pt awoke x1 and requested an orange juice. pt pacing the hallway for about 5 minutes.pt on q-15 minute checks Meal Information Percent Meal Consumed - Breakfast: 80 Percent Meal Consumed - Lunch: 100 Percent Meal Consumed - Dinner: 100 Nutrition Comment: per meal record Subjective Subjective Patient was seen & assessed and interval progress reviewed with nursing and social work. Staff reports that she needs to almost all groups except community meeting last evening. She reported "loving, "rating her mood 7/10 in the meeting. Her blood glucose level have been up and she got 2 doses of NovoLog before lunch and dinner yesterday but she refuses utilization of insulin until her blood glucose level is higher than 300. She even danced with 1 of inpatients last evening and slept more than 6 hours last night. Patient was seen today to assess progress since admission. Patient reports she feels much better today since yesterday afternoon and does not have any negative thoughts or delusions today. Denies hearing voices. States that she feels great when she does not have any delusions or auditory hallucinations. However, she expresses that she does not want to share the room with other patients yet and wants to stay in the private room for the next couple more days until she feels comfortable with this idea. She also reports that she does not share her room at [facility] and sharing her room with another person does not make her feel safe or comfortable at this point. Denies any suicidal ideation today and confirms that she does not feel any residual suicidal ideation at all, which she expressed a couple times last week. She wants to join more activities or groups today because she feels much better. Physical Exam Psychiatric Orientation: alert and oriented x 3 Apperance: appropriately dressed Eye Contact: + fair eye contact Motor Behavior: steady gait and station and no abnormal motor movements Speech: normal rate/rhythm/volume of speech Affect: + flat affect; no depressed affect and no anxious affect Mood: no depressed mood Thought Process: clear/coherent thought process Thought Content: reality based without delusions; no hopelessness and no guilt Suicidal Thoughts: denies suicidal thoughts Homicidal Thoughts: denies homicidal thoughts Hallucinations: no auditory hallucinations and no visual hallucinations Cognition: recent memory grossly intact Estimated Intelligence: consistent with education level Insight: + fair insight Judgement: + fair judgement Vital Signs (Past 24 Hours) Last Vital Signs Temp 36.5 C 01/30/20 07:29 Pulse 85 01/30/20 07:29 Resp 18 01/30/20 07:29 BP 121/70 01/30/20 07:29 Pulse Ox 96 01/16/20 18:16 Results & Data ([facility]) Laboratory Results Laboratory Results - last 24 hr 01/29/20 01/29/20 01/29/20 12:23 17:09 20:19 POC Glucose 305 H* 216 H 316 H* 01/30/20 08:42 POC Glucose 233 H Current Inpatient Medications Current Inpatient Medications: Current Inpatient Medications Acetaminophen (Tylenol) 650 mg PO Q4H PRN PRN Reason: Headache or Minor Fever Stop: 02/15/20 17:13 Al Hydrox/Mg Hydrox/Simethicone (Maalox) 30 ml PO Q4H PRN PRN Reason: GI Upset Stop: 02/15/20 17:13 Aspirin (Ecotrin Ectab) 81 mg PO DAILY ANNAMARIA Stop: 02/16/20 08:59 Last Admin: 01/30/20 08:59 Dose: 81 mg Documented by: Atorvastatin Calcium (Lipitor) 80 mg PO QPM ANNAMARIA Stop: 02/15/20 20:59 Last Admin: 01/29/20 20:34 Dose: 40 mg Documented by: Benztropine Mesylate (Cogentin) 1 mg PO HS ANNAMARIA Stop: 02/15/20 20:59 Last Admin: 01/29/20 20:35 Dose: Not Given Documented by: Bismuth Subsalicylate (Kaopectate) 15 ml PO PRN PRN PRN Reason: Loose Stool Stop: 02/15/20 17:13 Cyanocobalamin (Vitamin B-12) 1,000 mcg PO DAILY [facility] Stop: 02/16/20 08:59 Last Admin: 01/30/20 09:01 Dose: 1,000 mcg Documented by: Fenofibrate (Tricor) 145 mg PO DAILY [facility] Stop: 02/23/20 08:59 Last Admin: 01/30/20 09:01 Dose: Not Given Documented by: Glipizide (Glucotrol) 10 mg PO BIDM [facility] Stop: 02/18/20 12:29 Last Admin: 01/30/20 08:59 Dose: 10 mg Documented by: Hydrochlorothiazide (Hctz) 25 mg PO DAILY [facility] Stop: 02/16/20 08:59 Last Admin: 01/30/20 09:00 Dose: 25 mg Documented by: Hydroxyzine HCl (Vistaril) 50 mg PO HSZ PRN PRN Reason: Insomnia Stop: 02/15/20 17:13 Last Admin: 01/29/20 02:17 Dose: 50 mg Documented by: Hydroxyzine HCl (Vistaril) 25 mg PO Q4H PRN PRN Reason: Anxiety Stop: 02/15/20 17:13 Last Admin: 01/22/20 03:11 Dose: 25 mg Documented by: Hydroxyzine HCl (Vistaril) 25 mg PO TID [facility] Stop: 02/15/20 20:59 Last Admin: 01/30/20 09:01 Dose: 25 mg Documented by: Insulin Aspart (Novolog Flexpen) 0 units SC ACHS [facility]; Protocol Stop: 02/15/20 21:59 Last Admin: 01/30/20 09:09 Dose: Not Given Documented by: Insulin Glargine (Lantus) 70 units SC BID [facility] Stop: 02/16/20 08:59 Last Admin: 01/30/20 09:10 Dose: Not Given Documented by: Lisinopril (Zestril) 40 mg PO DAILY [facility] Stop: 02/16/20 08:59 Last Admin: 01/30/20 09:01 Dose: 40 mg Documented by: Magnesium Hydroxide (Milk Of Magnesia) 30 ml PO DAILY PRN PRN Reason: Constipation Stop: 02/15/20 17:13 Metformin HCl (Glucophage Er) 500 mg PO BIDM [facility] Stop: 02/17/20 17:44 Last Admin: 01/30/20 08:59 Dose: 500 mg Documented by: Methimazole (Tapazole) 10 mg PO DAILY ANNAMARIA Stop: 02/16/20 08:59 Last Admin: 01/30/20 09:00 Dose: 5 mg Documented by: Olanzapine (Zyprexa) 20 mg PO HS ANNAMARIA Stop: 02/18/20 21:59 Last Admin: 01/29/20 20:34 Dose: 20 mg Documented by: Olanzapine (Zyprexa) 5 mg PO DAILY PRN PRN Reason: psychosis/anxiety Stop: 02/22/20 08:59 Last Admin: 01/29/20 12:47 Dose: 5 mg Documented by: Sodium Chloride ([place] Nasal) 1 - 2 sprays NA PRN PRN PRN Reason: Nasal Dryness/Congestion Stop: 02/15/20 17:13 Mental Health & Subst Abuse Tx Psychiatrist Name of Psychiatrist: Irma Card Psychiatrist's Date of Appointment with Psychiatrist: 02/07/20 Time of Appointment with Psychiatrist: 2:00 p.m. Psychiatric Appointment Comment: Telehealth, In person, or by phone - your preference Therapist Name of Therapist: Irma Holguin Therapist's Date of Therapist Appointment: 02/06/20 Time of Therapist Appointment: 10:00 a.m. Therapy Appointment Comment: Telehealth, In person in [place], or by phone - your preference Sanitation Inspector Name of Sanitation Inspector: [facility] Phone Number for Sanitation Inspector: [phone] Date of Appointment with Sanitation Inspector: 01/30/20 Time of Appointment with Sanitation Inspector: 1:00 p.m. Case Management Appointment Comment: By telephone Post Discharge Appointments Primary Care Physician Name Of Family Doctor: J[facility] Date of Appointment with PCP: 02/07/20 Time of Appointment with PCP: 11:20 a.m. (In person) Provider Appointment Comment: [address], [place] [address] Contact Information Discharge Discharge Address: [address] [place] [id number] Contact Information Comment: House [facility] Care
[2020-01-30] MEDS: OLANZapine 5 MG TABLET PO PRN (14:58)
[2020-01-30] MEDS: OLANZapine 20 MG TABLET PO SCH (20:59)
[2020-01-30] MEDS: ATORVASTATIN 40 MG TAB PO SCH (20:59)
[2020-01-30] MEDS: BENZTROPINE MESYLATE 1 MG TAB PO SCH ×2 (21:05→23:45)
[2020-01-31] MEDS: ASPIRIN 81 MG ECTAB PO SCH (08:22)
[2020-01-31] MEDS: glipiZIDE 5 MG TAB PO SCH ×2 (08:22→17:19)
[2020-01-31] MEDS: METFORMIN HCL ER 500 MG TABCR PO SCH ×2 (08:22→17:18)
[2020-01-31] MEDS: hydroCHLOROthiazide 25 MG TAB PO SCH (08:22)
[2020-01-31] MEDS: CYANOCOBALAMIN 500 MCG TABLET (VITAMIN B-12) PO SCH (08:24)
[2020-01-31] MEDS: FENOFIBRATE NANOCRYSTALLIZED 145 MG TABLET PO SCH (08:24)
[2020-01-31] MEDS: lisinopriL 40 MG TAB PO SCH (08:25)
[2020-01-31] MEDS: methIMAzole 5 MG TABLET PO SCH (08:32)
[2020-01-31] MEDS: INSULIN ASPART 100 UNITS/ML 3 ML PEN SC SCH ×4 (08:33→21:14)
[2020-01-31] MEDS: INSULIN GLARGINE 100 UNIT/ML VIAL SC SCH ×2 (08:35→21:03)
--- NOTE | 2020-01-31 09:46 | Psychiatric Progress Note ---
Date of Service January 31, 2020 Impression / Recommendations Impression 55-year-old female with schizoaffective disorder depressed type, who was last on the unit several months ago, and presented with mood instability, paranoia, hallucinations, delusions of reference, and suicidality in the context of nonadherence with outpatient meds/insulin for no clear reason. After a few "rough" days during the first week of January and during which which the patient seemed to be more depressed, and also during which she also expressed paranoid delusional believes regarding a peer that included an assertion that the peer was somehow a "soldier for [employer]," as well as a belief that this. So mehow "cut off the hands" of the patient's daughter. However, towards the end of the week the patient was mood again stabilized and she no longer held the delusional believes. In fact, she was spontaneously able to acknowledge that her beliefs had not been based in reality and were both illogical and not true. Her affect has improved considerably, and she describes her mood as "back to normal." An ongoing issue is the patient's insistence that she only should take insulin if her blood sugars go beyond 300, and she gives as her reason for that decision the fact that she believes that insulin causes peripheral neuropathy. We have repeatedly attempted to educate the patient regarding the origins of peripheral neuropathy, and the fact that normal blood sugars can help stabilize and prevent it. We have also educated the patient regarding the fact that pain associated with peripheral neuropathy is often transient and, in some instances, may be caused when the peripheral nerves become more active. Given the waxing and waning nature of the patient's symptoms, we believe an inpatient psychiatric hospitalization remains medically necessary for the purpose of further observation and stabilization. (1) Schizoaffective disorder, depressive type: 01/17/20 -Currently, the patient is experiencing symptoms consistent with the depressed phase of her schizoaffective disorder, depressed type. She describes depressed mood, difficulty sleeping, feelings of hopelessness, helplessness and worthlessness. She also endorses suicidal ideation with specific thoughts of committing suicide by overdose. There is a past history of suicide attempts by overdose. The patient has been admitted to the [facility] unit and has been placed on suicide observations. She will be encouraged to participate actively in individual, group, activity, and, as required, remote family interventions (telephonically) due to safety concerns related to the COVID-19 crisis. -We will continue to offer the patient olanzapine at her outpatient dose, orally, and we will offer a couple that with an antiemetic given her complaint that it causes nausea. Will be necessary with the patient continues to refuse oral psychiatric medications given the severity of her illness and the unlikelihood that she will recover without the use of antipsychotic/mood stabi lizing medications. -We will also continue to offer the patient venlafaxine 75 mg daily for depression. 01/17--compliance to previous regimen is improving and psychotic symptoms appear to be lessening from presentation. 01/18--will d/c Effexor XR as she has refused in am and hopefully can just focus on insulin/diabetes regimen. Zyprexa 20 mg daily and monitor. Prefer lower dose if not taking insulin consistently and here sugars seem pretty controlled due to diet monitoring if not also lower dose. Sporadic use of Effexor XR can result in discontinuation syndrome which makes her more likely to misattribute somatic cues and refuse other medications. 01/20--continue olanzapine. Continue to encourage medication adherence, patient had been refusing venlafaxine, but now recognizing that she has been more depressed and anxious and may be willing to resume it, but will need to be willing to take it daily. --Reviewed fasting labs: Hemoglobin A1c 8.5%, FLP from 06/2019 was normal with the exception of triglycerides 319. 01/21 --Continue olanzapine 20mg at HS. She is willing for a dose of 5mg to be offered/requested as needed for paranoia/delusions. --Pt continues to report delusions and anxiety to staff, reports ongoing suicidality related to these delusional thoughts --Pt will still need a family meeting involving her outpatient supports, will continue to discuss though she has not yet been ready to participate in this just yet 01/22 - Continue current medication regimen, pt reporting prn olanzapine and hydroxyzine has been beneficial - Continues to report delusions, but feeling more comfortable reality testing after a phone conversation with her therapist yesterday afternoon - Pt agreeable with scheduling a family meeting with her correctional casework specialist, declining to involve mother in treatment. 01/23 - Continue current medication regimen. Pt reports she feels spaced out and tired with olanzapine and hydroxyzine but she prefers this feeling over unpleasant delusional thoughts. Pt was reminded that she can request prn olanzapine if her delusion gets worse. - Family meeting with her mother and her correctional casework specialist was productive and they came up with aftercare plan together. She will continue to reside at [facility], attending day programs and pt's mother told her that she will support her. - Reports ongoing delusions but pt feels more confident that they are not reality based thoughts and will disappear with her coping skills eventually. 01/24 -Increase in paranoia last evening; encouraged her to accept a higher dose of olanzapine, which she has thus far been unwilling to do, but did take a 5 mg as needed dose yesterday. -Continue to encourage group attendance and participation, reality testing, and improved medication compliance. 01/25 -Continue current medications and encouraged her to utilize the olanzapine 5 mg as needed dose. 01/26 - Continue current medication regimen - patient reporting ongoing utilization of olanzapine as needed which she claims is beneficial - Pt continues to endorse delusional and paranoid thoughts - now believing that her roommate is working with [employer] - Due to recently incorporating her roommate into her delusions with pretty significant intensity, we will order a MNPR for the patient 01/27 - Continue current medication regimen - Pt appears to be having a better morning thus far regarding her ability to reality test distressing delusional thoughts - Based on the level to which the patient incorporated her roommate into these thoughts over the weekend, we will continue MNPR until she is demonstrating evidence of reduced preoccupation with delusional thoughts 01/28 - Continue current medication regimen. Patient declines increasing olanzapine to 25 mg and prefers taking as needed olanzapine 5 mg. - Increase in her paranoia last evening and this morning. Patient has been showing ongoing delusions with temporary improvement during the current hospital stay. -Given her increased paranoia and delusions, we will continue MNPR until she shows evidence of improved paranoia and delusions. 01/29 - Continue current medication regimen. - Continue MNPR. Patient is denying delusions at this time but admits to intermittent struggles with reality testing and is not able to guarantee ability to appropriately tolerate a roommate when the delusions recur. Will continue to reassess. 01/30 -Continue current treatment regimen. -Patient reports that her mood has returned to normal and she feels that her depression has resolved. She also continues to report that she recognizes that her beliefs regarding a peer earlier this week were delusional in nature. She as above, she acknowledges that she sometimes struggles with distinguishing things that she imagines from things that are real. (2) Suicidal ideation: 01/17/20 -The patient has been placed on suicide precautions and is being actively monitored and treated on the locked behavioral unit. -She has been referred for individual, group, and activity therapies with a primary goal of helping the patient develop improved individual coping strategies in anticipation of return to the community. -We will encourage the patient to except her antidepressant medication, currently venlafaxine 75 mg daily. -We are also encouraging the patient to accept olanzapine 30 mg at bedtime, while discussing with the patient options of switching to a medication that would allow us to offer her intramuscular Depo medications for convenience and adherence. -We will attempt to address the patient's complaints of side effects from her medication, such as nausea, with medications intended to provide symptomatic relief Reviewed 01/18/2001/21 - Reports ongoing SI related to her continued delusions/paranoia 01/22 - Ongoing SI 01/23 - Denies suicidal ideation today. 01/24- -denying acute SI, but reporting ongoing delusions of persecution and severe guilt related to feeling she is responsible for "natural disasters" and tragic event such as 05/08. 01/27 - Denies SI today 01/28 - 01/29 -Denies SI. 01/30 -The patient continues to report that he is not having any thoughts of suicide. She is also future oriented and, for example, tells us today that she is looking forward to getting back to her half-way, particularly now that [place] is beginning to "reopen." She talked about her efforts to write poetry and to journal, and notes that in the past she has enjoyed creative writing. -The patient talked at some length about the fact that she regrets not having completed college, but reframed this by adding that she is particularly happy that her daughter graduated from college (last week), has avoided making the same mistakes that she, the patient, made at a similar age, and she is very proud that her daughter has secured a job in [facility]. (3) Diabetic nephropathy associated with type 2 diabetes mellitus: 01/17/20 -The patient's blood glucose levels will be monitored treated per protocol. Reviewed 01/18/20. 01/20 -patient is taking glipizide and metformin, but refusing insulin. Glucose levels have been in the 120s to 250s. Hemoglobin A1c 8.5%, with estimated average glucose of 197. 01/23 - Pt's glucose at dinner time was 351 and Lantus 70 unit was given. Glucose levels today have been in the 180s to 200s. 01/24 -patient continues to refuse her insulin, although did except 1 dose last evening when she had a BG of 324. Attempted diabetes education, but she is poorly receptive and struggles to explain the reasons that she has been refusing insulin. 28 address this diabetes or I have this very my HPI Aspirin 01/30 -The patient's blood glucose levels continue to remain high, and she continues to insist that she only takes insulin when her blood sugars are above 300. The fact that she recently refused insulin even though her blood sugar did test above 300 was dismissed by the patient when this was pointed out to her. Her assertion remains that insulin has caused peripheral neuropathy, and while she politely listens to explanations that peripheral neuropathy is caused by diabet es and that insulin can actually help prevent or minimize peripheral neuropathies when blood sugars can being maintained at a normal level, it seems clear that her goal is to return to her oral hypoglycemics upon returning home and avoiding insulin use except in situations when her blood sugar rises above 300. She has been informed number of times that waiting till her blood sugar hits 300 is not recommended, nor would it be considered safe. Inventory Assets Strengths: Intelligence, active support from her family, good relationship with outpatient providers, supportive living environment. Needs: Improved mood; resolution of active suicidality; improved medication adherence; enhanced individual coping strategies. Risk Factors Assessment Male: No : Yes Do You Have Access To A Gun?: No Health Problems: Yes Mental Health Diagnoses: Yes Substance Use Disorders: No Previous Attempt: Yes Previous Attempt; Highly Lethal: No Previous Attempt; Planned: Yes Previous Attempt; Didn't Tell Anyone: No Family History of Suicide: No Previous Psychiatric Hospitalization: Yes Hopelessness: No Smoker: No Protective Factors Assessment Sikhism Beliefs: No : No Responsible for Young Children: No Employed: No Stable Relationships: Yes Supportive Family: Yes Good Rapport with Provider: Yes Absence of Any Risk Factors Above: No Interval History Identifying Information AMADO OLSON is a 55-year-old F who lives in a residential facility, [facility], in [place], has a history of schizoaffective disorder, depressed type, and was admitted on 01/16/20 17:14 on a 201 voluntary commitment after she presented to the emergency department with depression, suicidal ideation, and a plan to overdose. Chief Complaint " I am really feeling much better now, thank you." Review of Systems Sleep Information Total Hours of Sleep: 5.5 Sleep Comments: pt appeared to sleep 1.5 hrs during evening shift. pt awoke x1 and requested an orange juice. pt pacing the hallway for about 5 minutes.pt on q-15 minute checks Meal Information Percent Meal Consumed - Breakfast: 80 Percent Meal Consumed - Lunch: 80 Percent Meal Consumed - Dinner: 100 Nutrition Comment: per meal record Subjective Subjective Patient was seen & assessed and interval progress reviewed with treatment team. I met individually with the patient in order to assess her current mental status, evaluate her response to treatment, coordinate any necessary changes in her treatment regimen with the patient, and address issues, questions and concerns that may arise. The patient began by telling me that she feels that her depression has "lifted," and notes that while she had been feeling "very, very sad" when she first came to the unit, much has been done to improve her mood and she describes her self as being "back to normal." Also, she reports no vegetative signs or symptoms of depression, reports that her appetite is good and that her sleep is "about as good as it usually is." We explored possible precipitating factors for her most recent episode of depression, and the patient said "I think maybe it had something to do with COVID-19 and the fact that everything is closed and restricted." She does not seem to connect nonadherence with medication and recurrence of her psychiatric symptoms, at least not spontaneously, but is able to acknowledge that this, also, seems to have significantly contributed. We discussed the content of paranoid delusional believes that she had expressed earlier in the week regarding 1 of her peers on the unit. The patient recalled being "paranoid" (her word) about the peer, and as, "I do not know why I was thinking those things. She is actually a very nice woman. I have known her for a while. Sometimes I just get funny ideas in my head that make no sense." We also focused on the fact that she is refusing insulin because she believes that it causes peripheral neuropathy. I was able to explain that sometimes while dormant nerves begin to become more active there may be a temporary increase in pain and tingling sensations, and I also reviewed the material risks associated with elevated blood sugars. The patient seem to accept the explanations, but says that, normally, at home she is able to maintain her blood sugars with oral hypoglycemics. The patient notes that, in the past, she had been insulin-dependent but the yarsani of several new oral hypoglycemics has eliminated the need for regular insulin, and, instead, she only takes insulin if blood sugars are not well controlled. I pointed out to her that this is such a time, and that it is not safe for her to wait till her blood sugars at 300 before agreeing to take insulin. The patient nodded in understanding, but did not provide any convincing evidence that she would adhere to the recommendation. In addition, today the patient discussed her regret regarding the fact that she had not finished college. She reminds me that she had completed 2 years of college, but dropped out, and attributed that circumstance to the fact that she was "partying too much and doing drugs and drinking." She regrets not having had a career, but says that she is deriving a great deal of satisfaction by the fact that her daughter has not followed in her footsteps, recently graduated from college (last week) and has secured a job in [facility] [facility]. Physical Exam Psychiatric Orientation: alert, oriented x 3 and cooperative Apperance: appropriately dressed and appropriately groomed Motor Behavior: + tremor Foot tapping and a slight 3-6 beat per second tremor of her head and neck observed. The patient is aware of the abnormal movements and recognizes them as being symptoms of tardive dyskinesia. She has, "it is actually getting better. I hope 1 day it will just go away." Speech: normal rate/rhythm/volume of speech Affect: euthymic affect "I did send in a pretty good mood now. The staff has done a lot to help me come out of the depression." Thought Process: goal directed thought process Thought Content: reality based without delusions Suicidal Thoughts: denies suicidal thoughts Homicidal Thoughts: denies homicidal thoughts Hallucinations: no auditory hallucinations Cognition: recent memory grossly intact and remote memory grossly intact Estimated Intelligence: + above average estimated intelligence Insight: + fair insight Judgement: + fair judgement Vital Signs (Past 24 Hours) Last Vital Signs Temp 36.6 C 01/31/20 06:32 Pulse 80 01/31/20 06:33 Resp 18 01/31/20 06:32 BP 130/82 01/31/20 06:33 Pulse Ox 96 01/16/20 18:16 Results & Data ([facility]) Laboratory Results Laboratory Results - last 24 hr 01/30/20 01/30/20 01/30/20 12:22 17:13 20:49 POC Glucose 239 H 312 H* 353 H* 01/31/20 07:54 POC Glucose 256 H Current Inpatient Medications Current Inpatient Medications: Current Inpatient Medications Acetaminophen (Tylenol) 650 mg PO Q4H PRN PRN Reason: Headache or Minor Fever Stop: 02/15/20 17:13 Al Hydrox/Mg Hydrox/Simethicone (Maalox) 30 ml PO Q4H PRN PRN Reason: GI Upset Stop: 02/15/20 17:13 Aspirin (Ecotrin Ectab) 81 mg PO DAILY ANNAMARIA Stop: 02/16/20 08:59 Last Admin: 01/31/20 08:22 Dose: 81 mg Documented by: Atorvastatin Calcium (Lipitor) 80 mg PO QPM ANNAMARIA Stop: 02/15/20 20:59 Last Admin: 01/30/20 20:59 Dose: 40 mg Documented by: Benztropine Mesylate (Cogentin) 1 mg PO HS ANNAMARIA Stop: 02/15/20 20:59 Last Admin: 01/30/20 23:45 Dose: 1 mg Documented by: Bismuth Subsalicylate (Kaopectate) 15 ml PO PRN PRN PRN Reason: Loose Stool Stop: 02/15/20 17:13 Cyanocobalamin (Vitamin B-12) 1,000 mcg PO DAILY ANNAMARIA Stop: 02/16/20 08:59 Last Admin: 01/31/20 08:24 Dose: 1,000 mcg Documented by: Fenofibrate (Tricor) 145 mg PO DAILY ANNAMARIA Stop: 02/23/20 08:59 Last Admin: 01/31/20 08:24 Dose: Not Given Documented by: Glipizide (Glucotrol) 10 mg PO BIDM ANNAMARIA Stop: 02/18/20 12:29 Last Admin: 01/31/20 08:22 Dose: 10 mg Documented by: Hydrochlorothiazide (Hctz) 25 mg PO DAILY [facility] Stop: 02/16/20 08:59 Last Admin: 01/31/20 08:22 Dose: 25 mg Documented by: Hydroxyzine HCl (Vistaril) 50 mg PO HSZ PRN PRN Reason: Insomnia Stop: 02/15/20 17:13 Last Admin: 01/30/20 23:45 Dose: 50 mg Documented by: Hydroxyzine HCl (Vistaril) 25 mg PO Q4H PRN PRN Reason: Anxiety Stop: 02/15/20 17:13 Last Admin: 01/22/20 03:11 Dose: 25 mg Documented by: Hydroxyzine HCl (Vistaril) 25 mg PO TID [facility] Stop: 02/15/20 20:59 Last Admin: 01/31/20 08:24 Dose: 25 mg Documented by: Insulin Aspart (Novolog Flexpen) 0 units SC [facility]; Protocol Stop: 02/15/20 21:59 Last Admin: 01/31/20 08:33 Dose: Not Given Documented by: Insulin Glargine (Lantus) 70 units SC BID [facility] Stop: 02/16/20 08:59 Last Admin: 01/31/20 08:35 Dose: Not Given Documented by: Lisinopril (Zestril) 40 mg PO DAILY [facility] Stop: 02/16/20 08:59 Last Admin: 01/31/20 08:25 Dose: 40 mg Documented by: Magnesium Hydroxide (Milk Of Magnesia) 30 ml PO DAILY PRN PRN Reason: Constipation Stop: 02/15/20 17:13 Metformin HCl (Glucophage Er) 500 mg PO BIDM [facility] Stop: 02/17/20 17:44 Last Admin: 01/31/20 08:22 Dose: 500 mg Documented by: Methimazole (Tapazole) 10 mg PO DAILY [facility] Stop: 02/16/20 08:59 Last Admin: 01/31/20 08:32 Dose: 5 mg Documented by: Olanzapine (Zyprexa) 20 mg PO HS [facility] Stop: 02/18/20 21:59 Last Admin: 01/30/20 20:59 Dose: 20 mg Documented by: Olanzapine (Zyprexa) 5 mg PO DAILY PRN PRN Reason: psychosis/anxiety Stop: 02/22/20 08:59 Last Admin: 01/30/20 14:58 Dose: 5 mg Documented by: Sodium Chloride ([place] Nasal) 1 - 2 sprays NA PRN PRN PRN Reason: Nasal Dryness/Congestion Stop: 02/15/20 17:13 Mental Health & Subst Abuse Tx Psychiatrist Name of Psychiatrist: Irma Card Psychiatrist's Date of Appointment with Psychiatrist: 02/07/20 Time of Appointment with Psychiatrist: 2:00 p.m. Psychiatric Appointment Comment: Telehealth, In person, or by phone - your preference Therapist Name of Therapist: Irma Holguin Therapist's Date of Therapist Appointment: 02/06/20 Time of Therapist Appointment: 10:00 a.m. Therapy Appointment Comment: Telehealth, In person in [place], or by phone - your preference [employer] Name of [employer] Operator: [facility] Phone Number for [employer] Operator: [phone] Date of Appointment with [employer] Operator: 01/30/20 Time of Appointment with [employer] Operator: 1:00 p.m. Case Management Appointment Comment: By telephone Post Discharge Appointments Primary Care Physician Name Of Family Doctor: [facility] Date of Appointment with PCP: 02/07/20 Time of Appointment with PCP: 11:20 a.m. (In person) Provider Appointment Comment: Sheldon Barnett, [place] [address] Contact Information Discharge Discharge Address: [address] [place] [id number] Contact Information Comment: [facility]
[2020-01-31] MEDS: OLANZapine 5 MG TABLET PO PRN (13:36)
[2020-01-31] MEDS: BENZTROPINE MESYLATE 1 MG TAB PO SCH (21:07)
[2020-01-31] MEDS: ATORVASTATIN 40 MG TAB PO SCH ×2 (21:07→21:14)
[2020-01-31] MEDS: OLANZapine 20 MG TABLET PO SCH (21:08)
[2020-02-01] MEDS: METFORMIN HCL ER 500 MG TABCR PO SCH ×2 (09:12→17:11)
[2020-02-01] MEDS: ASPIRIN 81 MG ECTAB PO SCH (09:12)
[2020-02-01] MEDS: CYANOCOBALAMIN 500 MCG TABLET (VITAMIN B-12) PO SCH (09:13)
[2020-02-01] MEDS: glipiZIDE 5 MG TAB PO SCH ×2 (09:13→17:10)
[2020-02-01] MEDS: methIMAzole 5 MG TABLET PO SCH (09:13)
[2020-02-01] MEDS: hydroCHLOROthiazide 25 MG TAB PO SCH (09:13)
[2020-02-01] MEDS: INSULIN ASPART 100 UNITS/ML 3 ML PEN SC SCH ×4 (09:14→20:58)
[2020-02-01] MEDS: FENOFIBRATE NANOCRYSTALLIZED 145 MG TABLET PO SCH (09:15)
[2020-02-01] MEDS: lisinopriL 40 MG TAB PO SCH (09:15)
[2020-02-01] MEDS: INSULIN GLARGINE 100 UNIT/ML VIAL SC SCH ×2 (09:15→20:57)
--- NOTE | 2020-02-01 10:36 | Psychiatric Progress Note ---
Date of Service February 01, 2020 Impression / Recommendations Impression 55-year-old female with schizoaffective disorder depressed type, who was last on the unit several months ago, and presented with mood instability, paranoia, hallucinations, delusions of reference, and suicidality in the context of nonadherence with outpatient meds/insulin for no clear reason. After a few "rough" days during the first week of January and during which which the patient seemed to be more depressed, and also during which she also expressed paranoid delusional believes regarding a peer that included an assertion that the peer was somehow a "soldier for [employer]," as well as a belief that this. [employer] "cut off the hands" of the patient's daughter. However, towards the end of the week the patient was mood again stabilized and she no longer held the delusional believes. In fact, she was spontaneously able to acknowledge that her beliefs had not been based in reality and were both illogical and not true. Her affect has improved considerably, and she describes her mood as "back to normal." An ongoing issue is the patient's insistence that she only should take insulin if her blood sugars go beyond 300, and she gives as her reason for that decision the fact that she believes that insulin causes peripheral neuropathy. We have repeatedly attempted to educate the patient regarding the origins of peripheral neuropathy, and the fact that normal blood sugars can help stabilize and prevent it. We have also educated the patient regarding the fact that pain associated with peripheral neuropathy is often transient and, in some instances, may be caused when the peripheral nerves become more active. Reviewed. Imp: schizoaffective improved, continue current meds and treatment plan. She agrees to take prn insulin if sugars remains elevated when she is back on her home regimen. Inventory Assets Strengths: Intelligence, active support from her family, good relationship with outpatient providers, supportive living environment. Needs: Improved mood; resolution of active suicidality; improved medication adherence; enhanced individual coping strategies. Risk Factors Assessment Male: No : Yes Do You Have Access To A Gun?: No Health Problems: Yes Mental Health Diagnoses: Yes Substance Use Disorders: No Previous Attempt: Yes Previous Attempt; Highly Lethal: No Previous Attempt; Planned: Yes Previous Attempt; Didn't Tell Anyone: No Family History of Suicide: No Previous Psychiatric Hospitalization: Yes Hopelessness: No Smoker: No Protective Factors Assessment Adventism Beliefs: No : No Responsible for Young Children: No Employed: No Stable Relationships: Yes Supportive Family: Yes Good Rapport with Provider: Yes Absence of Any Risk Factors Above: No Interval History Identifying Information CLARE OLSON is a 55-year-old F who lives in a residential facility, [facility], in [place], has a history of schizoaffective disorder, depressed type, and was admitted on 01/16/20 17:14 on a 201 voluntary commitment after she presented to the emergency department with depression, suicidal ideation, and a plan to overdose. Chief Complaint "I'm fine", still refusing am insuling. Review of Systems Sleep Information Total Hours of Sleep: 4.75 Sleep Comments: clare was asleep initially on this shift. she awoke and came out to the nurses station at 0245 to request a room by herself due to her thoughts. she requested and received prn vistaril for sleep aid she agreed to use the group and was provided with a mattress-she did sleep better there and plans to use this space tonight. Meal Information Percent Meal Consumed - Breakfast: 100 Percent Meal Consumed - Lunch: 100 Percent Meal Consumed - Dinner: 100 Nutrition Comment: documented from the pt. meal record Subjective Subjective Patient was seen & assessed and interval progress reviewed with nursing and social work. No new issues overnight, rated mood 7/10, did get a roommate which tends to trigger some paranoia. Roommate was not sleeping well and ended up using mat in group room. Physical Exam Psychiatric Orientation: alert Apperance: appropriately dressed Motor Behavior: steady gait and station Speech: normal rate/rhythm/volume of speech Affect: + constricted affect Mood: + depressed mood Thought Process: linear/logical thought process Thought Content: no delusions Suicidal Thoughts: denies suicidal thoughts Homicidal Thoughts: denies homicidal thoughts Hallucinations: no auditory hallucinations and no visual hallucinations Vital Signs (Past 24 Hours) Last Vital Signs Temp 36.4 C L 02/01/20 06:10 Pulse 80 02/01/20 06:10 Resp 18 02/01/20 06:10 BP 122/80 02/01/20 06:10 Pulse Ox 96 01/16/20 18:16 Results & Data ([facility]) Laboratory Results Laboratory Results - last 24 hr 01/31/20 01/31/20 01/31/20 12:57 17:06 17:09 POC Glucose 272 H 363 H* 378 H* 01/31/20 01/31/20 02/01/20 19:30 20:45 08:37 POC Glucose 319 H* 294 H 216 H Current Inpatient Medications Current Inpatient Medications: Current Inpatient Medications Acetaminophen (Tylenol) 650 mg PO Q4H PRN PRN Reason: Headache or Minor Fever Stop: 02/15/20 17:13 Al Hydrox/Mg Hydrox/Simethicone (Maalox) 30 ml PO Q4H PRN PRN Reason: GI Upset Stop: 02/15/20 17:13 Aspirin (Ecotrin Ectab) 81 mg PO DAILY ANNAMARIA Stop: 02/16/20 08:59 Last Admin: 02/01/20 09:12 Dose: 81 mg Documented by: Atorvastatin Calcium (Lipitor) 80 mg PO QPM [facility] Stop: 02/15/20 20:59 Last Admin: 01/31/20 21:14 Dose: 40 mg Documented by: Benztropine Mesylate (Cogentin) 1 mg PO HS ANNAMARIA Stop: 02/15/20 20:59 Last Admin: 01/31/20 21:07 Dose: 1 mg Documented by: Bismuth Subsalicylate (Kaopectate) 15 ml PO PRN PRN PRN Reason: Loose Stool Stop: 02/15/20 17:13 Cyanocobalamin (Vitamin B-12) 1,000 mcg PO DAILY [facility] Stop: 02/16/20 08:59 Last Admin: 02/01/20 09:13 Dose: 1,000 mcg Documented by: Fenofibrate (Tricor) 145 mg PO DAILY [facility] Stop: 02/23/20 08:59 Last Admin: 02/01/20 09:15 Dose: Not Given Documented by: Glipizide (Glucotrol) 10 mg PO BIDM ANNAMARIA Stop: 02/18/20 12:29 Last Admin: 02/01/20 09:13 Dose: 10 mg Documented by: Hydrochlorothiazide (Hctz) 25 mg PO DAILY [facility] Stop: 02/16/20 08:59 Last Admin: 02/01/20 09:13 Dose: 25 mg Documented by: Hydroxyzine HCl (Vistaril) 50 mg PO HSZ PRN PRN Reason: Insomnia Stop: 02/15/20 17:13 Last Admin: 02/01/20 02:52 Dose: 50 mg Documented by: Hydroxyzine HCl (Vistaril) 25 mg PO Q4H PRN PRN Reason: Anxiety Stop: 02/15/20 17:13 Last Admin: 01/22/20 03:11 Dose: 25 mg Documented by: Hydroxyzine HCl (Vistaril) 25 mg PO TID [facility] Stop: 02/15/20 20:59 Last Admin: 02/01/20 09:12 Dose: 25 mg Documented by: Insulin Aspart (Novolog Flexpen) 0 units SC ACHS [facility] Stop: 02/15/20 21:59 Last Admin: 02/01/20 09:14 Dose: Not Given Documented by: Insulin Glargine (Lantus) 70 units SC BID [facility] Stop: 02/16/20 08:59 Last Admin: 02/01/20 09:15 Dose: Not Given Documented by: Lisinopril (Zestril) 40 mg PO DAILY [facility] Stop: 02/16/20 08:59 Last Admin: 02/01/20 09:15 Dose: Not Given Documented by: Magnesium Hydroxide (Milk Of Magnesia) 30 ml PO DAILY PRN PRN Reason: Constipation Stop: 02/15/20 17:13 Metformin HCl (Glucophage Er) 500 mg PO BIDM [facility] Stop: 02/17/20 17:44 Last Admin: 02/01/20 09:12 Dose: 500 mg Documented by: Methimazole (Tapazole) 10 mg PO DAILY [facility] Stop: 02/16/20 08:59 Last Admin: 02/01/20 09:13 Dose: 5 mg Documented by: Olanzapine (Zyprexa) 20 mg PO HS [facility] Stop: 02/18/20 21:59 Last Admin: 01/31/20 21:08 Dose: 20 mg Documented by: Olanzapine (Zyprexa) 5 mg PO DAILY PRN PRN Reason: psychosis/anxiety Stop: 02/22/20 08:59 Last Admin: 01/31/20 13:36 Dose: 5 mg Documented by: Sodium Chloride ([place] Nasal) 1 - 2 sprays NA PRN PRN PRN Reason: Nasal Dryness/Congestion Stop: 02/15/20 17:13 Mental Health & Subst Abuse Tx Psychiatrist Name of Psychiatrist: Irma Card Psychiatrist's Date of Appointment with Psychiatrist: 02/07/20 Time of Appointment with Psychiatrist: 2:00 p.m. Psychiatric Appointment Comment: Telehealth, In person, or by phone - your preference Therapist Name of Therapist: Irma Holguin Therapist's Date of Therapist Appointment: 02/06/20 Time of Therapist Appointment: 10:00 a.m. Therapy Appointment Comment: Telehealth, In person in [place], or by phone - your preference Adhesive Bandage Machine Operator Name of Adhesive Bandage Machine Operator: [facility] Phone Number for Adhesive Bandage Machine Operator: [phone] Date of Appointment with Adhesive Bandage Machine Operator: 01/30/20 Time of Appointment with Adhesive Bandage Machine Operator: 1:00 p.m. Case Management Appointment Comment: By telephone Post Discharge Appointments Primary Care Physician Name Of Family Doctor: [facility] Date of Appointment with PCP: 02/07/20 Time of Appointment with PCP: 11:20 a.m. (In person) Provider Appointment Comment: Sheldon Barnett, [place] [address] Contact Information Discharge Discharge Address: [address] [place] [address], [place] [address] Contact Information Comment: [place] [facility], [place]
[2020-02-01] MEDS: OLANZapine 5 MG TABLET PO PRN (14:29)
[2020-02-01] MEDS: ATORVASTATIN 40 MG TAB PO SCH (21:00)
[2020-02-01] MEDS: OLANZapine 20 MG TABLET PO SCH (21:02)
[2020-02-01] MEDS: BENZTROPINE MESYLATE 1 MG TAB PO SCH (21:02)
[2020-02-02] MEDS: INSULIN ASPART 100 UNITS/ML 3 ML PEN SC SCH ×2 (09:06→12:56)
[2020-02-02] MEDS: INSULIN GLARGINE 100 UNIT/ML VIAL SC SCH (09:09)
[2020-02-02] MEDS: METFORMIN HCL ER 500 MG TABCR PO SCH (09:09)
[2020-02-02] MEDS: glipiZIDE 5 MG TAB PO SCH (09:09)
[2020-02-02] MEDS: ASPIRIN 81 MG ECTAB PO SCH (09:09)
[2020-02-02] MEDS: hydroCHLOROthiazide 25 MG TAB PO SCH (09:09)
[2020-02-02] MEDS: methIMAzole 5 MG TABLET PO SCH (09:10)
[2020-02-02] MEDS: FENOFIBRATE NANOCRYSTALLIZED 145 MG TABLET PO SCH (09:10)
[2020-02-02] MEDS: CYANOCOBALAMIN 500 MCG TABLET (VITAMIN B-12) PO SCH (09:12)
[2020-02-02] MEDS: lisinopriL 40 MG TAB PO SCH (09:12)
--- NOTE | 2020-02-02 11:12 | Discharge Summary ---
Date of Service February 02, 2020 History of Present Illness The patient is a 54-year-old woman known to us from previous admissions. She presented to the emergency department last evening and complained of generally "not feeling well," depressed mood, and thoughts of suicide by taking an overdose of medications. She indicates that she has been having thoughts of suicide and not feeling well for approximately 2 weeks, and she does not identify any precipitating variables. However, without identifying a correl ation she also reports that she had stopped taking her psychiatric medications because "they were making me feel sick at my stomach." The patient offers little additional information spontaneously, assures us that she will not engage in any self-injurious behaviors in the hospital, notes that she felt that she wanted to come into the hospital, and adds "all of you are very nice to me when I am here." When asked if she was having problems with other persons not being as nice as she would like, she deferred. Physical Exam Mental Examination see admission H&P and day of discharge assessment Vital Signs (Past 24 Hours) Last Vital Signs Temp 36.4 C L 02/02/20 06:29 Pulse 75 02/02/20 06:30 Resp 18 02/02/20 06:29 BP 124/80 02/02/20 06:30 Pulse Ox 96 01/16/20 18:16 Principal Diagnosis schizoaffective disorder Psychiatric Data See daily care summary. In short Effexor XR was held as she was initially refusing it. She restarted Zyprexa and dose was titrated to previously effective dose (pre hospital). She continue to refuse insulin as not her home regmine but bulk of her gluc checks were fine, if over 300 she did accept coverage. She is agreeing to resume her prehospital regiment when returns to [facility]. She showed significant improvement in thought organization, overall compliance, decreased restlessness, decrease in delusions of persecution and reports resolution of auditory hallucination. Day of Discharge Assessment Sanjuanita is alert and cooperative, her speech is normal in rate and volume. She reports improved mood and her affect is calm. She is tolerating her medications. Her thoughts are organized. She denies SI/HI/benitez and did not express any delusions. No apparent EPS on exam. She verbalizes safety plan and is stable for discharge to outpatient level of care. Transition of Care Transition Of Care Record: was reviewed with the patient Advance Directives Advance Directives Information Provided: Yes Advance Directives: No Mental Health Advance Directive: No Advance Directives on File: No Living Will: No Power of Head Grower: No Advance Directives Reason:: Declines as Mental Health Visit. Risk Factors Assessment Male: No : Yes Do You Have Access To A Gun?: No Health Problems: Yes Mental Health Diagnoses: Yes Substance Use Disorders: No Previous Attempt: Yes Previous Attempt; Highly Lethal: No Previous Attempt; Planned: Yes Previous Attempt; Didn't Tell Anyone: No Family History of Suicide: No Previous Psychiatric Hospitalization: Yes Hopelessness: No Smoker: No Protective Factors Assessment Buddhism Beliefs: No : No Responsible for Young Children: No Employed: No Stable Relationships: Yes Supportive Family: Yes Good Rapport with Provider: Yes Absence of Any Risk Factors Above: No Tobacco Cessation at Discharge Tobacco Cessation Medication Prescribed at Discharge: Not Applicable/Non-Smoker Total Time Total Time Includes: Examination of the patient, Discharge Planning and Medication Reconciliation Discharge Data Lab Results 01/16/20 01/16/20 01/16/20 14:21 14:21 14:21 WBC 13.23 H RBC 5.87 H Hgb 14.5 Hct 43.9 MCV 74.8 L MCH 24.7 L MCHC 33.0 RDW Std Deviation 42.0 RDW Coeff of Abel 15.5 H Plt Count 459 H MPV 8.6 Immature Gran % (Auto) 0.3 Neut % (Auto) 60.6 Lymph % (Auto) 30.2 Vigo % (Auto) 6.7 Eos % (Auto) 1.7 Baso % (Auto) 0.5 Immature Gran # (Auto) 0.04 H Neut # (Auto) 8.00 H Lymph # (Auto) 4.00 H Vigo # (Auto) 0.89 H Eos # (Auto) 0.23 Baso # (Auto) 0.07 Sodium 140 Potassium 3.6 Chloride 106 Carbon Dioxide 24 Anion Gap 10.0 BUN 18 Creatinine 0.91 Est Cr Clr Drug Dosing 74.8 Est GFR ( Amer) 82.9 Est GFR (Non-Af Amer) 71.5 BUN/Creatinine Ratio 19.6 Glucose 116 H POC Glucose Estimat Average Glucose Hemoglobin A1c Calcium 10.6 H Total Bilirubin 0.4 AST 14 L ALT 31 Alkaline Phosphatase 164 H Total Protein 8.2 Albumin 4.1 Globulin 4.1 H Albumin/Globulin Ratio 1.0 TSH 0.821 HCG, Qual Urine Color Urine Appearance Urine pH Ur Specific Crestline Urine Protein Urine Glucose (UA) Urine Ketones Urine Blood Urine Nitrite Urine Bilirubin Urine Urobilinogen Ur Leukocyte Esterase Urine WBC (Auto) Urine RBC (Auto) U Hyaline Cast (Auto) U Epithel Cells (Auto) Urine Bacteria (Auto) Salicylates Urine Opiates Screen Ur Methadone, Qual Acetaminophen Urine Barbiturates Ur Phencyclidine (PCP) U Amphetamin/Meth Scrn MDMA (Ecstasy) Screen U Benzodiazepines Scrn Ur Cocaine Metabolite U Marijuana (THC) Screen Ethyl Alcohol mg/dL 01/16/20 01/16/20 01/16/20 14:21 14:21 15:15 WBC RBC Hgb Hct MCV MCH MCHC RDW Std Deviation RDW Coeff of Abel Plt Count MPV Immature Gran % (Auto) Neut % (Auto) Lymph % (Auto) Vigo % (Auto) Eos % (Auto) Baso % (Auto) Immature Gran # (Auto) Neut # (Auto) Lymph # (Auto) Vigo # (Auto) Eos # (Auto) Baso # (Auto) Sodium Potassium Chloride Carbon Dioxide Anion Gap BUN Creatinine Est Cr Clr Drug Dosing Est GFR ( Amer) Est GFR (Non-Af Amer) BUN/Creatinine Ratio Glucose POC Glucose Estimat Average Glucose Hemoglobin A1c Calcium Total Bilirubin AST ALT Alkaline Phosphatase Total Protein Albumin Globulin Albumin/Globulin Ratio TSH HCG, Qual Negative Urine Color Urine Appearance Urine pH Ur Specific [place] Urine Protein Urine Glucose (UA) Urine Ketones Urine Blood Urine Nitrite Urine Bilirubin Urine Urobilinogen Ur Leukocyte Esterase Urine WBC (Auto) Urine RBC (Auto) U Hyaline Cast (Auto) U Epithel Cells (Auto) Urine Bacteria (Auto) Salicylates Urine Opiates Screen Neg Ur Methadone, Qual Neg Acetaminophen Urine Barbiturates Neg Ur Phencyclidine (PCP) Neg U Amphetamin/Meth Scrn Neg MDMA (Ecstasy) Screen Neg U Benzodiazepines Scrn Neg Ur Cocaine Metabolite Neg U Marijuana (THC) Screen Neg Ethyl Alcohol mg/dL < 3.0 01/16/20 01/16/20 01/16/20 15:15 18:05 21:12 WBC RBC Hgb Hct MCV MCH MCHC RDW Std Deviation RDW Coeff of Abel Plt Count MPV Immature Gran % (Auto) Neut % (Auto) Lymph % (Auto) Vigo % (Auto) Eos % (Auto) Baso % (Auto) Immature Gran # (Auto) Neut # (Auto) Lymph # (Auto) Vigo # (Auto) Eos # (Auto) Baso # (Auto) Sodium Potassium Chloride Carbon Dioxide Anion Gap BUN Creatinine Est Cr Clr Drug Dosing Est GFR ( Amer) Est GFR (Non-Af Amer) BUN/Creatinine Ratio Glucose POC Glucose 117 H 131 H Estimat Average Glucose Hemoglobin A1c Calcium Total Bilirubin AST ALT Alkaline Phosphatase Total Protein Albumin Globulin Albumin/Globulin Ratio TSH HCG, Qual Urine Color Yellow Urine Appearance Cloudy A Urine pH 5.0 Ur Specific Crestline 1.035 H Urine Protein Negative Urine Glucose (UA) 3+ H Urine Ketones Negative Urine Blood Negative Urine Nitrite Negative Urine Bilirubin Negative Urine Urobilinogen Negative Ur Leukocyte Esterase Negative Urine WBC (Auto) 10-30 H Urine RBC (Auto) 0-4 U Hyaline Cast (Auto) 1-5 U Epithel Cells (Auto) >30 H Urine Bacteria (Auto) 1+ H Salicylates Urine Opiates Screen Ur Methadone, Qual Acetaminophen Urine Barbiturates Ur Phencyclidine (PCP) U Amphetamin/Meth Scrn MDMA (Ecstasy) Screen U Benzodiazepines Scrn Ur Cocaine Metabolite U Marijuana (THC) Screen Ethyl Alcohol mg/dL 01/17/20 01/17/20 01/17/20 08:34 12:52 17:21 WBC RBC Hgb Hct MCV MCH MCHC RDW Std Deviation RDW Coeff of Abel Plt Count MPV Immature Gran % (Auto) Neut % (Auto) Lymph % (Auto) Vigo % (Auto) Eos % (Auto) Baso % (Auto) Immature Gran # (Auto) Neut # (Auto) Lymph # (Auto) Vigo # (Auto) Eos # (Auto) Baso # (Auto) Sodium Potassium Chloride Carbon Dioxide Anion Gap BUN Creatinine Est Cr Clr Drug Dosing Est GFR ( Amer) Est GFR (Non-Af Amer) BUN/Creatinine Ratio Glucose POC Glucose 111 H 113 H 106 H Estimat Average Glucose Hemoglobin A1c Calcium Total Bilirubin AST ALT Alkaline Phosphatase Total Protein Albumin Globulin Albumin/Globulin Ratio TSH HCG, Qual Urine Color Urine Appearance Urine pH Ur Specific [place] Urine Protein Urine Glucose (UA) Urine Ketones Urine Blood Urine Nitrite Urine Bilirubin Urine Urobilinogen Ur Leukocyte Esterase Urine WBC (Auto) Urine RBC (Auto) U Hyaline Cast (Auto) U Epithel Cells (Auto) Urine Bacteria (Auto) Salicylates Urine Opiates Screen Ur Methadone, Qual Acetaminophen Urine Barbiturates Ur Phencyclidine (PCP) U Amphetamin/Meth Scrn MDMA (Ecstasy) Screen U Benzodiazepines Scrn Ur Cocaine Metabolite U Marijuana (THC) Screen Ethyl Alcohol mg/dL 01/17/20 01/18/20 01/18/20 21:15 07:45 08:17 WBC RBC Hgb Hct MCV MCH MCHC RDW Std Deviation RDW Coeff of Abel Plt Count MPV Immature Gran % (Auto) Neut % (Auto) Lymph % (Auto) Vigo % (Auto) Eos % (Auto) Baso % (Auto) Immature Gran # (Auto) Neut # (Auto) Lymph # (Auto) Vigo # (Auto) Eos # (Auto) Baso # (Auto) Sodium Potassium Chloride Carbon Dioxide Anion Gap BUN Creatinine Est Cr Clr Drug Dosing Est GFR ( Amer) Est GFR (Non-Af Amer) BUN/Creatinine Ratio Glucose POC Glucose 190 H 124 H Estimat Average Glucose 197 Hemoglobin A1c 8.5 H Calcium Total Bilirubin AST ALT Alkaline Phosphatase Total Protein Albumin Globulin Albumin/Globulin Ratio TSH HCG, Qual Urine Color Urine Appearance Urine pH Ur Specific [place] Urine Protein Urine Glucose (UA) Urine Ketones Urine Blood Urine Nitrite Urine Bilirubin Urine Urobilinogen Ur Leukocyte Esterase Urine WBC (Auto) Urine RBC (Auto) U Hyaline Cast (Auto) U Epithel Cells (Auto) Urine Bacteria (Auto) Salicylates Urine Opiates Screen Ur Methadone, Qual Acetaminophen Urine Barbiturates Ur Phencyclidine (PCP) U Amphetamin/Meth Scrn MDMA (Ecstasy) Screen U Benzodiazepines Scrn Ur Cocaine Metabolite U Marijuana (THC) Screen Ethyl Alcohol mg/dL 01/18/20 01/18/20 01/18/20 12:24 16:54 21:13 WBC RBC Hgb Hct MCV MCH MCHC RDW Std Deviation RDW Coeff of Abel Plt Count MPV Immature Gran % (Auto) Neut % (Auto) Lymph % (Auto) Vigo % (Auto) Eos % (Auto) Baso % (Auto) Immature Gran # (Auto) Neut # (Auto) Lymph # (Auto) Vigo # (Auto) Eos # (Auto) Baso # (Auto) Sodium Potassium Chloride Carbon Dioxide Anion Gap BUN Creatinine Est Cr Clr Drug Dosing Est GFR ( Amer) Est GFR (Non-Af Amer) BUN/Creatinine Ratio Glucose POC Glucose 112 H 227 H 252 H Estimat Average Glucose Hemoglobin A1c Calcium Total Bilirubin AST ALT Alkaline Phosphatase Total Protein Albumin Globulin Albumin/Globulin Ratio TSH HCG, Qual Urine Color Urine Appearance Urine pH Ur Specific [place] Urine Protein Urine Glucose (UA) Urine Ketones Urine Blood Urine Nitrite Urine Bilirubin Urine Urobilinogen Ur Leukocyte Esterase Urine WBC (Auto) Urine RBC (Auto) U Hyaline Cast (Auto) U Epithel Cells (Auto) Urine Bacteria (Auto) Salicylates Urine Opiates Screen Ur Methadone, Qual Acetaminophen Urine Barbiturates Ur Phencyclidine (PCP) U Amphetamin/Meth Scrn MDMA (Ecstasy) Screen U Benzodiazepines Scrn Ur Cocaine Metabolite U Marijuana (THC) Screen Ethyl Alcohol mg/dL 01/19/20 01/19/20 01/19/20 05:58 12:22 17:18 WBC RBC Hgb Hct MCV MCH MCHC RDW Std Deviation RDW Coeff of Abel Plt Count MPV Immature Gran % (Auto) Neut % (Auto) Lymph % (Auto) Vigo % (Auto) Eos % (Auto) Baso % (Auto) Immature Gran # (Auto) Neut # (Auto) Lymph # (Auto) V[place] # (Auto) Eos # (Auto) Baso # (Auto) Sodium Potassium Chloride Carbon Dioxide Anion Gap BUN Creatinine Est Cr Clr Drug Dosing Est GFR ( Amer) Est GFR (Non-Af Amer) BUN/Creatinine Ratio Glucose POC Glucose 125 H 136 H 156 H Estimat Average Glucose Hemoglobin A1c Calcium Total Bilirubin AST ALT Alkaline Phosphatase Total Protein Albumin Globulin Albumin/Globulin Ratio TSH HCG, Qual Urine Color Urine Appearance Urine pH Ur Specific [place] Urine Protein Urine Glucose (UA) Urine Ketones Urine Blood Urine Nitrite Urine Bilirubin Urine Urobilinogen Ur Leukocyte Esterase Urine WBC (Auto) Urine RBC (Auto) U Hyaline Cast (Auto) U Epithel Cells (Auto) Urine Bacteria (Auto) Salicylates Urine Opiates Screen Ur Methadone, Qual Acetaminophen Urine Barbiturates Ur Phencyclidine (PCP) U Amphetamin/Meth Scrn MDMA (Ecstasy) Screen U Benzodiazepines Scrn Ur Cocaine Metabolite U Marijuana (THC) Screen Ethyl Alcohol mg/dL 01/19/20 01/20/20 01/20/20 20:38 07:50 11:37 WBC RBC Hgb Hct MCV MCH MCHC RDW Std Deviation RDW Coeff of Abel Plt Count MPV Immature Gran % (Auto) Neut % (Auto) Lymph % (Auto) Vigo % (Auto) Eos % (Auto) Baso % (Auto) Immature Gran # (Auto) Neut # (Auto) Lymph # (Auto) V[place] # (Auto) Eos # (Auto) Baso # (Auto) Sodium Potassium Chloride Carbon Dioxide Anion Gap BUN Creatinine Est Cr Clr Drug Dosing Est GFR ( Amer) Est GFR (Non-Af Amer) BUN/Creatinine Ratio Glucose POC Glucose 205 H 168 H 175 H Estimat Average Glucose Hemoglobin A1c Calcium Total Bilirubin AST ALT Alkaline Phosphatase Total Protein Albumin Globulin Albumin/Globulin Ratio TSH HCG, Qual Urine Color Urine Appearance Urine pH Ur Specific [place] Urine Protein Urine Glucose (UA) Urine Ketones Urine Blood Urine Nitrite Urine Bilirubin Urine Urobilinogen Ur Leukocyte Esterase Urine WBC (Auto) Urine RBC (Auto) U Hyaline Cast (Auto) U Epithel Cells (Auto) Urine Bacteria (Auto) Salicylates Urine Opiates Screen Ur Methadone, Qual Acetaminophen Urine Barbiturates Ur Phencyclidine (PCP) U Amphetamin/Meth Scrn MDMA (Ecstasy) Screen U Benzodiazepines Scrn Ur Cocaine Metabolite U Marijuana (THC) Screen Ethyl Alcohol mg/dL 01/20/20 01/20/20 01/21/20 16:48 20:19 08:18 WBC RBC Hgb Hct MCV MCH MCHC RDW Std Deviation RDW Coeff of Abel Plt Count MPV Immature Gran % (Auto) Neut % (Auto) Lymph % (Auto) Vigo % (Auto) Eos % (Auto) Baso % (Auto) Immature Gran # (Auto) Neut # (Auto) Lymph # (Auto) [place] # (Auto) Eos # (Auto) Baso # (Auto) Sodium Potassium Chloride Carbon Dioxide Anion Gap BUN Creatinine Est Cr Clr Drug Dosing Est GFR ( Amer) Est GFR (Non-Af Amer) BUN/Creatinine Ratio Glucose POC Glucose 177 H 255 H 192 H Estimat Average Glucose Hemoglobin A1c Calcium Total Bilirubin AST ALT Alkaline Phosphatase Total Protein Albumin Globulin Albumin/Globulin Ratio TSH HCG, Qual Urine Color Urine Appearance Urine pH Ur Specific [place] Urine Protein Urine Glucose (UA) Urine Ketones Urine Blood Urine Nitrite Urine Bilirubin Urine Urobilinogen Ur Leukocyte Esterase Urine WBC (Auto) Urine RBC (Auto) U Hyaline Cast (Auto) U Epithel Cells (Auto) Urine Bacteria (Auto) Salicylates Urine Opiates Screen Ur Methadone, Qual Acetaminophen Urine Barbiturates Ur Phencyclidine (PCP) U Amphetamin/Meth Scrn MDMA (Ecstasy) Screen U Benzodiazepines Scrn Ur Cocaine Metabolite U Marijuana (THC) Screen Ethyl Alcohol mg/dL 01/21/20 01/21/20 01/21/20 12:39 17:07 20:54 WBC RBC Hgb Hct MCV MCH MCHC RDW Std Deviation RDW Coeff of Abel Plt Count MPV Immature Gran % (Auto) Neut % (Auto) Lymph % (Auto) Vigo % (Auto) Eos % (Auto) Baso % (Auto) Immature Gran # (Auto) Neut # (Auto) Lymph # (Auto) V[place] # (Auto) Eos # (Auto) Baso # (Auto) Sodium Potassium Chloride Carbon Dioxide Anion Gap BUN Creatinine Est Cr Clr Drug Dosing Est GFR ( Amer) Est GFR (Non-Af Amer) BUN/Creatinine Ratio Glucose POC Glucose 181 H 231 H 227 H Estimat Average Glucose Hemoglobin A1c Calcium Total Bilirubin AST ALT Alkaline Phosphatase Total Protein Albumin Globulin Albumin/Globulin Ratio TSH HCG, Qual Urine Color Urine Appearance Urine pH Ur Specific [place] Urine Protein Urine Glucose (UA) Urine Ketones Urine Blood Urine Nitrite Urine Bilirubin Urine Urobilinogen Ur Leukocyte Esterase Urine WBC (Auto) Urine RBC (Auto) U Hyaline Cast (Auto) U Epithel Cells (Auto) Urine Bacteria (Auto) Salicylates Urine Opiates Screen Ur Methadone, Qual Acetaminophen Urine Barbiturates Ur Phencyclidine (PCP) U Amphetamin/Meth Scrn MDMA (Ecstasy) Screen U Benzodiazepines Scrn Ur Cocaine Metabolite U Marijuana (THC) Screen Ethyl Alcohol mg/dL 01/22/20 01/22/20 01/22/20 08:07 12:34 16:41 WBC RBC Hgb Hct MCV MCH MCHC RDW Std Deviation RDW Coeff of Abel Plt Count MPV Immature Gran % (Auto) Neut % (Auto) Lymph % (Auto) Vigo % (Auto) Eos % (Auto) Baso % (Auto) Immature Gran # (Auto) Neut # (Auto) Lymph # (Auto) V[place] # (Auto) Eos # (Auto) Baso # (Auto) Sodium Potassium Chloride Carbon Dioxide Anion Gap BUN Creatinine Est Cr Clr Drug Dosing Est GFR ( Amer) Est GFR (Non-Af Amer) BUN/Creatinine Ratio Glucose POC Glucose 227 H 238 H 208 H Estimat Average Glucose Hemoglobin A1c Calcium Total Bilirubin AST ALT Alkaline Phosphatase Total Protein Albumin Globulin Albumin/Globulin Ratio TSH HCG, Qual Urine Color Urine Appearance Urine pH Ur Specific [place] Urine Protein Urine Glucose (UA) Urine Ketones Urine Blood Urine Nitrite Urine Bilirubin Urine Urobilinogen Ur Leukocyte Esterase Urine WBC (Auto) Urine RBC (Auto) U Hyaline Cast (Auto) U Epithel Cells (Auto) Urine Bacteria (Auto) Salicylates Urine Opiates Screen Ur Methadone, Qual Acetaminophen Urine Barbiturates Ur Phencyclidine (PCP) U Amphetamin/Meth Scrn MDMA (Ecstasy) Screen U Benzodiazepines Scrn Ur Cocaine Metabolite U Marijuana (THC) Screen Ethyl Alcohol mg/dL 01/22/20 01/23/20 01/23/20 20:26 08:46 12:08 WBC RBC Hgb Hct MCV MCH MCHC RDW Std Deviation RDW Coeff of Abel Plt Count MPV Immature Gran % (Auto) Neut % (Auto) Lymph % (Auto) Vigo % (Auto) Eos % (Auto) Baso % (Auto) Immature Gran # (Auto) Neut # (Auto) Lymph # (Auto) [place] # (Auto) Eos # (Auto) Baso # (Auto) Sodium Potassium Chloride Carbon Dioxide Anion Gap BUN Creatinine Est Cr Clr Drug Dosing Est GFR ( Amer) Est GFR (Non-Af Amer) BUN/Creatinine Ratio Glucose POC Glucose 249 H 260 H 299 H Estimat Average Glucose Hemoglobin A1c Calcium Total Bilirubin AST ALT Alkaline Phosphatase Total Protein Albumin Globulin Albumin/Globulin Ratio TSH HCG, Qual Urine Color Urine Appearance Urine pH Ur Specific [place] Urine Protein Urine Glucose (UA) Urine Ketones Urine Blood Urine Nitrite Urine Bilirubin Urine Urobilinogen Ur Leukocyte Esterase Urine WBC (Auto) Urine RBC (Auto) U Hyaline Cast (Auto) U Epithel Cells (Auto) Urine Bacteria (Auto) Salicylates Urine Opiates Screen Ur Methadone, Qual Acetaminophen Urine Barbiturates Ur Phencyclidine (PCP) U Amphetamin/Meth Scrn MDMA (Ecstasy) Screen U Benzodiazepines Scrn Ur Cocaine Metabolite U Marijuana (THC) Screen Ethyl Alcohol mg/dL 01/23/20 01/23/20 01/24/20 17:11 20:58 02:41 WBC RBC Hgb Hct MCV MCH MCHC RDW Std Deviation RDW Coeff of Abel Plt Count MPV Immature Gran % (Auto) Neut % (Auto) Lymph % (Auto) [place]igo % (Auto) Eos % (Auto) Baso % (Auto) Immature Gran # (Auto) Neut # (Auto) Lymph # (Auto) [place] # (Auto) Eos # (Auto) Baso # (Auto) Sodium Potassium Chloride Carbon Dioxide Anion Gap BUN Creatinine Est Cr Clr Drug Dosing Est GFR ( Amer) Est GFR (Non-Af Amer) BUN/Creatinine Ratio Glucose POC Glucose 287 H 351 H* 239 H Estimat Average Glucose Hemoglobin A1c Calcium Total Bilirubin AST ALT Alkaline Phosphatase Total Protein Albumin Globulin Albumin/Globulin Ratio TSH HCG, Qual Urine Color Urine Appearance Urine pH Ur Specific [place] Urine Protein Urine Glucose (UA) Urine Ketones Urine Blood Urine Nitrite Urine Bilirubin Urine Urobilinogen Ur Leukocyte Esterase Urine WBC (Auto) Urine RBC (Auto) U Hyaline Cast (Auto) U Epithel Cells (Auto) Urine Bacteria (Auto) Salicylates Urine Opiates Screen Ur Methadone, Qual Acetaminophen Urine Barbiturates Ur Phencyclidine (PCP) U Amphetamin/Meth Scrn MDMA (Ecstasy) Screen U Benzodiazepines Scrn Ur Cocaine Metabolite U Marijuana (THC) Screen Ethyl Alcohol mg/dL 01/24/20 01/24/20 01/24/20 08:30 12:45 16:50 WBC RBC Hgb Hct MCV MCH MCHC RDW Std Deviation RDW Coeff of Abel Plt Count MPV Immature Gran % (Auto) Neut % (Auto) Lymph % (Auto) Vigo % (Auto) Eos % (Auto) Baso % (Auto) Immature Gran # (Auto) Neut # (Auto) Lymph # (Auto) [place] # (Auto) Eos # (Auto) Baso # (Auto) Sodium Potassium Chloride Carbon Dioxide Anion Gap BUN Creatinine Est Cr Clr Drug Dosing Est GFR ( Amer) Est GFR (Non-Af Amer) BUN/Creatinine Ratio Glucose POC Glucose 200 H 185 H 192 H Estimat Average Glucose Hemoglobin A1c Calcium Total Bilirubin AST ALT Alkaline Phosphatase Total Protein Albumin Globulin Albumin/Globulin Ratio TSH HCG, Qual Urine Color Urine Appearance Urine pH Ur Specific [place] Urine Protein Urine Glucose (UA) Urine Ketones Urine Blood Urine Nitrite Urine Bilirubin Urine Urobilinogen Ur Leukocyte Esterase Urine WBC (Auto) Urine RBC (Auto) U Hyaline Cast (Auto) U Epithel Cells (Auto) Urine Bacteria (Auto) Salicylates Urine Opiates Screen Ur Methadone, Qual Acetaminophen Urine Barbiturates Ur Phencyclidine (PCP) U Amphetamin/Meth Scrn MDMA (Ecstasy) Screen U Benzodiazepines Scrn Ur Cocaine Metabolite U Marijuana (THC) Screen Ethyl Alcohol mg/dL 01/24/20 01/25/20 01/25/20 19:58 08:07 12:37 WBC RBC Hgb Hct MCV MCH MCHC RDW Std Deviation RDW Coeff of Abel Plt Count MPV Immature Gran % (Auto) Neut % (Auto) Lymph % (Auto) [place] % (Auto) Eos % (Auto) Baso % (Auto) Immature Gran # (Auto) Neut # (Auto) Lymph # (Auto) [place] # (Auto) Eos # (Auto) Baso # (Auto) Sodium Potassium Chloride Carbon Dioxide Anion Gap BUN Creatinine Est Cr Clr Drug Dosing Est GFR ( Amer) Est GFR (Non-Af Amer) BUN/Creatinine Ratio Glucose POC Glucose 248 H 243 H 259 H Estimat Average Glucose Hemoglobin A1c Calcium Total Bilirubin AST ALT Alkaline Phosphatase Total Protein Albumin Globulin Albumin/Globulin Ratio TSH HCG, Qual Urine Color Urine Appearance Urine pH Ur Specific [place] Urine Protein Urine Glucose (UA) Urine Ketones Urine Blood Urine Nitrite Urine Bilirubin Urine Urobilinogen Ur Leukocyte Esterase Urine WBC (Auto) Urine RBC (Auto) U Hyaline Cast (Auto) U Epithel Cells (Auto) Urine Bacteria (Auto) Salicylates Urine Opiates Screen Ur Methadone, Qual Acetaminophen Urine Barbiturates Ur Phencyclidine (PCP) U Amphetamin/Meth Scrn MDMA (Ecstasy) Screen U Benzodiazepines Scrn Ur Cocaine Metabolite U Marijuana (THC) Screen Ethyl Alcohol mg/dL 01/25/20 01/25/20 01/25/20 17:06 20:02 20:55 WBC RBC Hgb Hct MCV MCH MCHC RDW Std Deviation RDW Coeff of Abel Plt Count MPV Immature Gran % (Auto) Neut % (Auto) Lymph % (Auto) [place] % (Auto) Eos % (Auto) Baso % (Auto) Immature Gran # (Auto) Neut # (Auto) Lymph # (Auto) [place] # (Auto) Eos # (Auto) Baso # (Auto) Sodium Potassium Chloride Carbon Dioxide Anion Gap BUN Creatinine Est Cr Clr Drug Dosing Est GFR ( Amer) Est GFR (Non-Af Amer) BUN/Creatinine Ratio Glucose POC Glucose 192 H 304 H* 324 H* Estimat Average Glucose Hemoglobin A1c Calcium Total Bilirubin AST ALT Alkaline Phosphatase Total Protein Albumin Globulin Albumin/Globulin Ratio TSH HCG, Qual Urine Color Urine Appearance Urine pH Ur Specific [place] Urine Protein Urine Glucose (UA) Urine Ketones Urine Blood Urine Nitrite Urine Bilirubin Urine Urobilinogen Ur Leukocyte Esterase Urine WBC (Auto) Urine RBC (Auto) U Hyaline Cast (Auto) U Epithel Cells (Auto) Urine Bacteria (Auto) Salicylates Urine Opiates Screen Ur Methadone, Qual Acetaminophen Urine Barbiturates Ur Phencyclidine (PCP) U Amphetamin/Meth Scrn MDMA (Ecstasy) Screen U Benzodiazepines Scrn Ur Cocaine Metabolite U Marijuana (THC) Screen Ethyl Alcohol mg/dL 01/26/20 01/26/20 01/26/20 07:31 11:31 17:09 WBC RBC Hgb Hct MCV MCH MCHC RDW Std Deviation RDW Coeff of Abel Plt Count MPV Immature Gran % (Auto) Neut % (Auto) Lymph % (Auto) [place] % (Auto) Eos % (Auto) Baso % (Auto) Immature Gran # (Auto) Neut # (Auto) Lymph # (Auto) [place] # (Auto) Eos # (Auto) Baso # (Auto) Sodium Potassium Chloride Carbon Dioxide Anion Gap BUN Creatinine Est Cr Clr Drug Dosing Est GFR ( Amer) Est GFR (Non-Af Amer) BUN/Creatinine Ratio Glucose POC Glucose 224 H 280 H 242 H Estimat Average Glucose Hemoglobin A1c Calcium Total Bilirubin AST ALT Alkaline Phosphatase Total Protein Albumin Globulin Albumin/Globulin Ratio TSH HCG, Qual Urine Color Urine Appearance Urine pH Ur Specific [place] Urine Protein Urine Glucose (UA) Urine Ketones Urine Blood Urine Nitrite Urine Bilirubin Urine Urobilinogen Ur Leukocyte Esterase Urine WBC (Auto) Urine RBC (Auto) U Hyaline Cast (Auto) U Epithel Cells (Auto) Urine Bacteria (Auto) Salicylates Urine Opiates Screen Ur Methadone, Qual Acetaminophen Urine Barbiturates Ur Phencyclidine (PCP) U Amphetamin/Meth Scrn MDMA (Ecstasy) Screen U Benzodiazepines Scrn Ur Cocaine Metabolite U Marijuana (THC) Screen Ethyl Alcohol mg/dL 01/26/20 01/26/20 01/27/20 20:27 20:29 07:47 WBC RBC Hgb Hct MCV MCH MCHC RDW Std Deviation RDW Coeff of Abel Plt Count MPV Immature Gran % (Auto) Neut % (Auto) Lymph % (Auto) Vigo % (Auto) Eos % (Auto) Baso % (Auto) Immature Gran # (Auto) Neut # (Auto) Lymph # (Auto) Vigo # (Auto) Eos # (Auto) Baso # (Auto) Sodium Potassium Chloride Carbon Dioxide Anion Gap BUN Creatinine Est Cr Clr Drug Dosing Est GFR ( Amer) Est GFR (Non-Af Amer) BUN/Creatinine Ratio Glucose POC Glucose 333 H* 354 H* 265 H Estimat Average Glucose Hemoglobin A1c Calcium Total Bilirubin AST ALT Alkaline Phosphatase Total Protein Albumin Globulin Albumin/Globulin Ratio TSH HCG, Qual Urine Color Urine Appearance Urine pH Ur Specific [place] Urine Protein Urine Glucose (UA) Urine Ketones Urine Blood Urine Nitrite Urine Bilirubin Urine Urobilinogen Ur Leukocyte Esterase Urine WBC (Auto) Urine RBC (Auto) U Hyaline Cast (Auto) U Epithel Cells (Auto) Urine Bacteria (Auto) Salicylates Urine Opiates Screen Ur Methadone, Qual Acetaminophen Urine Barbiturates Ur Phencyclidine (PCP) U Amphetamin/Meth Scrn MDMA (Ecstasy) Screen U Benzodiazepines Scrn Ur Cocaine Metabolite U Marijuana (THC) Screen Ethyl Alcohol mg/dL 01/27/20 01/27/20 01/27/20 12:12 17:13 21:04 WBC RBC Hgb Hct MCV MCH MCHC RDW Std Deviation RDW Coeff of Abel Plt Count MPV Immature Gran % (Auto) Neut % (Auto) Lymph % (Auto) Vigo % (Auto) Eos % (Auto) Baso % (Auto) Immature Gran # (Auto) Neut # (Auto) Lymph # (Auto) Vigo # (Auto) Eos # (Auto) Baso # (Auto) Sodium Potassium Chloride Carbon Dioxide Anion Gap BUN Creatinine Est Cr Clr Drug Dosing Est GFR ( Amer) Est GFR (Non-Af Amer) BUN/Creatinine Ratio Glucose POC Glucose 262 H 310 H* 209 H Estimat Average Glucose Hemoglobin A1c Calcium Total Bilirubin AST ALT Alkaline Phosphatase Total Protein Albumin Globulin Albumin/Globulin Ratio TSH HCG, Qual Urine Color Urine Appearance Urine pH Ur Specific C[place] Urine Protein Urine Glucose (UA) Urine Ketones Urine Blood Urine Nitrite Urine Bilirubin Urine Urobilinogen Ur Leukocyte Esterase Urine WBC (Auto) Urine RBC (Auto) U Hyaline Cast (Auto) U Epithel Cells (Auto) Urine Bacteria (Auto) Salicylates Urine Opiates Screen Ur Methadone, Qual Acetaminophen Urine Barbiturates Ur Phencyclidine (PCP) U Amphetamin/Meth Scrn MDMA (Ecstasy) Screen U Benzodiazepines Scrn Ur Cocaine Metabolite U Marijuana (THC) Screen Ethyl Alcohol mg/dL 01/28/20 01/28/20 01/28/20 08:10 11:36 17:35 WBC RBC Hgb Hct MCV MCH MCHC RDW Std Deviation RDW Coeff of Abel Plt Count MPV Immature Gran % (Auto) Neut % (Auto) Lymph % (Auto) Vigo % (Auto) Eos % (Auto) Baso % (Auto) Immature Gran # (Auto) Neut # (Auto) Lymph # (Auto) Vigo # (Auto) Eos # (Auto) Baso # (Auto) Sodium Potassium Chloride Carbon Dioxide Anion Gap BUN Creatinine Est Cr Clr Drug Dosing Est GFR ( Amer) Est GFR (Non-Af Amer) BUN/Creatinine Ratio Glucose POC Glucose 227 H 282 H 228 H Estimat Average Glucose Hemoglobin A1c Calcium Total Bilirubin AST ALT Alkaline Phosphatase Total Protein Albumin Globulin Albumin/Globulin Ratio TSH HCG, Qual Urine Color Urine Appearance Urine pH Ur Specific [place] Urine Protein Urine Glucose (UA) Urine Ketones Urine Blood Urine Nitrite Urine Bilirubin Urine Urobilinogen Ur Leukocyte Esterase Urine WBC (Auto) Urine RBC (Auto) U Hyaline Cast (Auto) U Epithel Cells (Auto) Urine Bacteria (Auto) Salicylates Urine Opiates Screen Ur Methadone, Qual Acetaminophen Urine Barbiturates Ur Phencyclidine (PCP) U Amphetamin/Meth Scrn MDMA (Ecstasy) Screen U Benzodiazepines Scrn Ur Cocaine Metabolite U Marijuana (THC) Screen Ethyl Alcohol mg/dL 01/28/20 01/28/20 01/29/20 20:30 21:50 08:30 WBC RBC Hgb Hct MCV MCH MCHC RDW Std Deviation RDW Coeff of Abel Plt Count MPV Immature Gran % (Auto) Neut % (Auto) Lymph % (Auto) Vigo % (Auto) Eos % (Auto) Baso % (Auto) Immature Gran # (Auto) Neut # (Auto) Lymph # (Auto) Vigo # (Auto) Eos # (Auto) Baso # (Auto) Sodium Potassium Chloride Carbon Dioxide Anion Gap BUN Creatinine Est Cr Clr Drug Dosing Est GFR ( Amer) Est GFR (Non-Af Amer) BUN/Creatinine Ratio Glucose POC Glucose 344 H* 339 H* 260 H Estimat Average Glucose Hemoglobin A1c Calcium Total Bilirubin AST ALT Alkaline Phosphatase Total Protein Albumin Globulin Albumin/Globulin Ratio TSH HCG, Qual Urine Color Urine Appearance Urine pH Ur Specific [place] Urine Protein Urine Glucose (UA) Urine Ketones Urine Blood Urine Nitrite Urine Bilirubin Urine Urobilinogen Ur Leukocyte Esterase Urine WBC (Auto) Urine RBC (Auto) U Hyaline Cast (Auto) U Epithel Cells (Auto) Urine Bacteria (Auto) Salicylates Urine Opiates Screen Ur Methadone, Qual Acetaminophen Urine Barbiturates Ur Phencyclidine (PCP) U Amphetamin/Meth Scrn MDMA (Ecstasy) Screen U Benzodiazepines Scrn Ur Cocaine Metabolite U Marijuana (THC) Screen Ethyl Alcohol mg/dL 01/29/20 01/29/20 01/29/20 12:23 17:09 20:19 WBC RBC Hgb Hct MCV MCH MCHC RDW Std Deviation RDW Coeff of Abel Plt Count MPV Immature Gran % (Auto) Neut % (Auto) Lymph % (Auto) Vigo % (Auto) Eos % (Auto) Baso % (Auto) Immature Gran # (Auto) Neut # (Auto) Lymph # (Auto) Vigo # (Auto) Eos # (Auto) Baso # (Auto) Sodium Potassium Chloride Carbon Dioxide Anion Gap BUN Creatinine Est Cr Clr Drug Dosing Est GFR ( Amer) Est GFR (Non-Af Amer) BUN/Creatinine Ratio Glucose POC Glucose 305 H* 216 H 316 H* Estimat Average Glucose Hemoglobin A1c Calcium Total Bilirubin AST ALT Alkaline Phosphatase Total Protein Albumin Globulin Albumin/Globulin Ratio TSH HCG, Qual Urine Color Urine Appearance Urine pH Ur Specific [place] Urine Protein Urine Glucose (UA) Urine Ketones Urine Blood Urine Nitrite Urine Bilirubin Urine Urobilinogen Ur Leukocyte Esterase Urine WBC (Auto) Urine RBC (Auto) U Hyaline Cast (Auto) U Epithel Cells (Auto) Urine Bacteria (Auto) Salicylates Urine Opiates Screen Ur Methadone, Qual Acetaminophen Urine Barbiturates Ur Phencyclidine (PCP) U Amphetamin/Meth Scrn MDMA (Ecstasy) Screen U Benzodiazepines Scrn Ur Cocaine Metabolite U Marijuana (THC) Screen Ethyl Alcohol mg/dL 01/30/20 01/30/20 01/30/20 08:42 12:22 17:13 WBC RBC Hgb Hct MCV MCH MCHC RDW Std Deviation RDW Coeff of Abel Plt Count MPV Immature Gran % (Auto) Neut % (Auto) Lymph % (Auto) Vigo % (Auto) Eos % (Auto) Baso % (Auto) Immature Gran # (Auto) Neut # (Auto) Lymph # (Auto) [place]igo # (Auto) Eos # (Auto) Baso # (Auto) Sodium Potassium Chloride Carbon Dioxide Anion Gap BUN Creatinine Est Cr Clr Drug Dosing Est GFR ( Amer) Est GFR (Non-Af Amer) BUN/Creatinine Ratio Glucose POC Glucose 233 H 239 H 312 H* Estimat Average Glucose Hemoglobin A1c Calcium Total Bilirubin AST ALT Alkaline Phosphatase Total Protein Albumin Globulin Albumin/Globulin Ratio TSH HCG, Qual Urine Color Urine Appearance Urine pH Ur Specific [place] Urine Protein Urine Glucose (UA) Urine Ketones Urine Blood Urine Nitrite Urine Bilirubin Urine Urobilinogen Ur Leukocyte Esterase Urine WBC (Auto) Urine RBC (Auto) U Hyaline Cast (Auto) U Epithel Cells (Auto) Urine Bacteria (Auto) Salicylates Urine Opiates Screen Ur Methadone, Qual Acetaminophen Urine Barbiturates Ur Phencyclidine (PCP) U Amphetamin/Meth Scrn MDMA (Ecstasy) Screen U Benzodiazepines Scrn Ur Cocaine Metabolite U Marijuana (THC) Screen Ethyl Alcohol mg/dL 01/30/20 01/31/20 01/31/20 20:49 07:54 12:57 WBC RBC Hgb Hct MCV MCH MCHC RDW Std Deviation RDW Coeff of Abel Plt Count MPV Immature Gran % (Auto) Neut % (Auto) Lymph % (Auto) Vigo % (Auto) Eos % (Auto) Baso % (Auto) Immature Gran # (Auto) Neut # (Auto) Lymph # (Auto) Vigo # (Auto) Eos # (Auto) Baso # (Auto) Sodium Potassium Chloride Carbon Dioxide Anion Gap BUN Creatinine Est Cr Clr Drug Dosing Est GFR ( Amer) Est GFR (Non-Af Amer) BUN/Creatinine Ratio Glucose POC Glucose 353 H* 256 H 272 H Estimat Average Glucose Hemoglobin A1c Calcium Total Bilirubin AST ALT Alkaline Phosphatase Total Protein Albumin Globulin Albumin/Globulin Ratio TSH HCG, Qual Urine Color Urine Appearance Urine pH Ur Specific [place] Urine Protein Urine Glucose (UA) Urine Ketones Urine Blood Urine Nitrite Urine Bilirubin Urine Urobilinogen Ur Leukocyte Esterase Urine WBC (Auto) Urine RBC (Auto) U Hyaline Cast (Auto) U Epithel Cells (Auto) Urine Bacteria (Auto) Salicylates Urine Opiates Screen Ur Methadone, Qual Acetaminophen Urine Barbiturates Ur Phencyclidine (PCP) U Amphetamin/Meth Scrn MDMA (Ecstasy) Screen U Benzodiazepines Scrn Ur Cocaine Metabolite U Marijuana (THC) Screen Ethyl Alcohol mg/dL 01/31/20 01/31/20 01/31/20 17:06 17:09 19:30 WBC RBC Hgb Hct MCV MCH MCHC RDW Std Deviation RDW Coeff of Abel Plt Count MPV Immature Gran % (Auto) Neut % (Auto) Lymph % (Auto) Vigo % (Auto) Eos % (Auto) Baso % (Auto) Immature Gran # (Auto) Neut # (Auto) Lymph # (Auto) Vigo # (Auto) Eos # (Auto) Baso # (Auto) Sodium Potassium Chloride Carbon Dioxide Anion Gap BUN Creatinine Est Cr Clr Drug Dosing Est GFR ( Amer) Est GFR (Non-Af Amer) BUN/Creatinine Ratio Glucose POC Glucose 363 H* 378 H* 319 H* Estimat Average Glucose Hemoglobin A1c Calcium Total Bilirubin AST ALT Alkaline Phosphatase Total Protein Albumin Globulin Albumin/Globulin Ratio TSH HCG, Qual Urine Color Urine Appearance Urine pH Ur Specific C[place] Urine Protein Urine Glucose (UA) Urine Ketones Urine Blood Urine Nitrite Urine Bilirubin Urine Urobilinogen Ur Leukocyte Esterase Urine WBC (Auto) Urine RBC (Auto) U Hyaline Cast (Auto) U Epithel Cells (Auto) Urine Bacteria (Auto) Salicylates Urine Opiates Screen Ur Methadone, Qual Acetaminophen Urine Barbiturates Ur Phencyclidine (PCP) U Amphetamin/Meth Scrn MDMA (Ecstasy) Screen U Benzodiazepines Scrn Ur Cocaine Metabolite U Marijuana (THC) Screen Ethyl Alcohol mg/dL 01/31/20 02/01/20 02/01/20 20:45 08:37 12:45 WBC RBC Hgb Hct MCV MCH MCHC RDW Std Deviation RDW Coeff of Abel Plt Count MPV Immature Gran % (Auto) Neut % (Auto) Lymph % (Auto) Vigo % (Auto) Eos % (Auto) Baso % (Auto) Immature Gran # (Auto) Neut # (Auto) Lymph # (Auto) Vigo # (Auto) Eos # (Auto) Baso # (Auto) Sodium Potassium Chloride Carbon Dioxide Anion Gap BUN Creatinine Est Cr Clr Drug Dosing Est GFR ( Amer) Est GFR (Non-Af Amer) BUN/Creatinine Ratio Glucose POC Glucose 294 H 216 H 274 H Estimat Average Glucose Hemoglobin A1c Calcium Total Bilirubin AST ALT Alkaline Phosphatase Total Protein Albumin Globulin Albumin/Globulin Ratio TSH HCG, Qual Urine Color Urine Appearance Urine pH Ur Specific Crest[place] Urine Protein Urine Glucose (UA) Urine Ketones Urine Blood Urine Nitrite Urine Bilirubin Urine Urobilinogen Ur Leukocyte Esterase Urine WBC (Auto) Urine RBC (Auto) U Hyaline Cast (Auto) U Epithel Cells (Auto) Urine Bacteria (Auto) Salicylates Urine Opiates Screen Ur Methadone, Qual Acetaminophen Urine Barbiturates Ur Phencyclidine (PCP) U Amphetamin/Meth Scrn MDMA (Ecstasy) Screen U Benzodiazepines Scrn Ur Cocaine Metabolite U Marijuana (THC) Screen Ethyl Alcohol mg/dL 02/01/20 02/01/20 02/02/20 16:47 20:38 08:43 WBC RBC Hgb Hct MCV MCH MCHC RDW Std Deviation RDW Coeff of Abel Plt Count MPV Immature Gran % (Auto) Neut % (Auto) Lymph % (Auto) Vigo % (Auto) Eos % (Auto) Baso % (Auto) Immature Gran # (Auto) Neut # (Auto) Lymph # (Auto) Vigo # (Auto) Eos # (Auto) Baso # (Auto) Sodium Potassium Chloride Carbon Dioxide Anion Gap BUN Creatinine Est Cr Clr Drug Dosing Est GFR ( Amer) Est GFR (Non-Af Amer) BUN/Creatinine Ratio Glucose POC Glucose 218 H 291 H 254 H Estimat Average Glucose Hemoglobin A1c Calcium Total Bilirubin AST ALT Alkaline Phosphatase Total Protein Albumin Globulin Albumin/Globulin Ratio TSH HCG, Qual Urine Color Urine Appearance Urine pH Ur Specific [place] Urine Protein Urine Glucose (UA) Urine Ketones Urine Blood Urine Nitrite Urine Bilirubin Urine Urobilinogen Ur Leukocyte Esterase Urine WBC (Auto) Urine RBC (Auto) U Hyaline Cast (Auto) U Epithel Cells (Auto) Urine Bacteria (Auto) Salicylates Urine Opiates Screen Ur Methadone, Qual Acetaminophen Urine Barbiturates Ur Phencyclidine (PCP) U Amphetamin/Meth Scrn MDMA (Ecstasy) Screen U Benzodiazepines Scrn Ur Cocaine Metabolite U Marijuana (THC) Screen Ethyl Alcohol mg/dL Hospital Course (1) Schizoaffective disorder, depressive type: 01/17/20 -Currently, the patient is experiencing symptoms consistent with the depressed phase of her schizoaffective disorder, depressed type. She describes depressed mood, difficulty sleeping, feelings of hopelessness, helplessness and worthlessness. She also endorses suicidal ideation with specific thoughts of committing suicide by overdose. There is a past history of suicide attempts by overdose. The patient has been admitted to the [facility] and has been placed on suicide observations. She will be encouraged to participate actively in individual, group, activity, and, as required, remote family interventions (telephonically) due to safety concerns related to the COVID-19 crisis. -We will continue to offer the patient olanzapine at her outpatient dose, orally, and we will offer a couple that with an antiemetic given her complaint that it causes nausea. Will be necessary with the patient continues to refuse oral psychiatric medications given the severity of her illness and the u nlikelihood that she will recover without the use of antipsychotic/mood stabilizing medications. -We will also continue to offer the patient venlafaxine 75 mg daily for depression. 01/17--compliance to previous regimen is improving and psychotic symptoms appear to be lessening from presentation. 01/18--will d/c Effexor XR as she has refused in am and hopefully can just focus on insulin/diabetes regimen. Zyprexa 20 mg daily and monitor. Prefer lower dose if not taking insulin consistently and here sugars seem pretty controlled due to diet monitoring if not also lower dose. Sporadic use of Effexor XR can result in discontinuation syndrome which makes her more likely to misattribute somatic cues and refuse other medications. 01/20--continue olanzapine. Continue to encourage medication adherence, patient had been refusing venlafaxine, but now recognizing that she has been more depressed and anxious and may be willing to resume it, but will need to be willing to take it daily. --Reviewed fasting labs: Hemoglobin A1c 8.5%, FLP from 06/2019 was normal with the exception of triglycerides 319. 01/21 --Continue olanzapine 20mg at HS. She is willing for a dose of 5mg to be offered/requested as needed for paranoia/delusions. --Pt continues to report delusions and anxiety to staff, reports ongoing suicidality related to these delusional thoughts --Pt will still need a family meeting involving her outpatient supports, will continue to discuss though she has not yet been ready to participate in this just yet 01/22 - Continue current medication regimen, pt reporting prn olanzapine and hydroxyzine has been beneficial - Continues to report delusions, but feeling more comfortable reality testing after a phone conversation with her therapist yesterday afternoon - Pt agreeable with scheduling a family meeting with her case worker, declining to involve mother in treatment. 01/23 - Continue current medication regimen. Pt reports she feels spaced out and tired with olanzapine and hydroxyzine but she prefers this feeling over unpleasant delusional thoughts. Pt was reminded that she can request prn olanzapine if her delusion gets worse. - Family meeting with her mother and her case worker was productive and they came up with aftercare plan together. She will continue to reside at [facility], attending day programs and pt's mother told her that she will support her. - Reports ongoing delusions but pt feels more confident that they are not reality based thoughts and will disappear with her coping skills eventually. 01/24 -Increase in paranoia last evening; encouraged her to accept a higher dose of olanzapine, which she has thus far been unwilling to do, but did take a 5 mg as needed dose yesterday. -Continue to encourage group attendance and participation, reality testing, and improved medication compliance. 01/25 -Continue current medications and encouraged her to utilize the olanzapine 5 mg as needed dose. 01/26 - Continue current medication regimen - patient reporting ongoing utilization of olanzapine as needed which she claims is beneficial - Pt continues to endorse delusional and paranoid thoughts - now believing that her roommate is working with [employer] - Due to recently incorporating her roommate into her delusions with pretty significant intensity, we will order a MNPR for the patient 01/27 - Continue current medication regimen - Pt appears to be having a better morning thus far regarding her ability to reality test distressing delusional thoughts - Based on the level to which the patient incorporated her roommate into these thoughts over the weekend, we will continue MNPR until she is demonstrating evidence of reduced preoccupation with delusional thoughts 01/28 - Continue current medication regimen. Patient declines increasing olanzapine to 25 mg and prefers taking as needed olanzapine 5 mg. - Increase in her paranoia last evening and this morning. Patient has been showing ongoing delusions with temporary improvement during the current hospital stay. -Given her increased paranoia and delusions, we will continue MNPR until she shows evidence of improved paranoia and delusions. 01/29 - Continue current medication regimen. - Continue MNPR. Patient is denying delusions at this time but admits to intermittent struggles with reality testing and is not able to guarantee ability to appropriately tolerate a roommate when the delusions recur. Will continue to reassess. 01/30 -Continue current treatment regimen. -Patient reports that her mood has returned to normal and she feels that her depression has resolved. She also continues to report that she recognizes that her beliefs regarding a peer earlier this week were delusional in nature. She as above, she acknowledges that she sometimes struggles with distinguishing things that she imagines from things that are real. (2) Suicidal ideation: 01/17/20 -The patient has been placed on suicide precautions and is being actively monitored and treated on the locked behavioral unit. -She has been referred for individual, group, and activity therapies with a primary goal of helping the patient develop improved individual coping strategies in anticipation of return to the community. -We will encourage the patient to except her antidepressant medication, currently venlafaxine 75 mg daily. -We are also encouraging the patient to accept olanzapine 30 mg at bedtime, while discussing with the patient options of switching to a medication that would allow us to offer her intramuscular Depo medications for convenience and adherence. -We will attempt to address the patient's complaints of side effects from her medication, such as nausea, with medications intended to provide symptomatic relief Reviewed 01/18/2001/21 - Reports ongoing SI related to her continued delusions/paranoia 01/22 - Ongoing SI 01/23 - Denies suicidal ideation today. 01/24- -denying acute SI, but reporting ongoing delusions of persecution and severe guilt related to feeling she is responsible for "natural disasters" and tragic event such as 05/08. 01/27 - Denies SI today 01/28 - 01/29 -Denies SI. 01/30 -The patient continues to report that he is not having any thoughts of suicide. She is also future oriented and, for example, tells us today that she is looking forward to getting back to her residential, particularly now that [place] is beginning to "reopen." She talked about her efforts to write poetry and to journal, and notes that in the past she has enjoyed creative writing. -The patient talked at some length about the fact that she regrets not having completed college, but reframed this by adding that she is particularly happy that her daughter graduated from college (last week), has avoided making the same mistakes that she, the patient, made at a similar age, and she is very proud that her daughter has secured a job in [facility]. (3) Diabetic nephropathy associated with type 2 diabetes mellitus: 01/17/20 -The patient's blood glucose levels will be monitored treated per protocol. Reviewed 01/18/20. 01/20 -patient is taking glipizide and metformin, but refusing insulin. Glucose levels have been in the 120s to 250s. Hemoglobin A1c 8.5%, with estimated average glucose of 197. 01/23 - Pt's glucose at dinner time was 351 and Lantus 70 unit was given. Glucose levels today have been in the 180s to 200s. 01/24 -patient continues to refuse her insulin, although did except 1 dose last evening when she had a BG of 324. Attempted diabetes education, but she is poorly receptive and struggles to explain the reasons that she has been refusing insulin. 28 address this diabetes or I have this very my HPI Aspirin 01/30 -The patient's blood glucose levels continue to remain high, and she continues to insist that she only takes insulin when her blood sugars are above 300. The fact that she recently refused insulin even though her blood sugar did test above 300 was dismissed by the patient when this was pointed out to her. Her assertion remains that insulin has caused peripheral neuropathy, and while she politely listens to explanations that peripheral neuropathy is caused by diabetes and that insulin can actually help prevent or minimize peripheral neuropathies when blood sugars can being maintained at a normal level, it seems clear that her goal is to return to her oral hypoglycemics upon returning home and avoiding insulin use except in situations when her blood sugar rises above 300. She has been informed number of times that waiting till her blood sugar hits 300 is not recommended, nor would it be considered safe. Mental Health & Subst Abuse Tx Psychiatrist Name of Psychiatrist: Irma Card Psychiatrist's Date of Appointment with Psychiatrist: 02/07/20 Time of Appointment with Psychiatrist: 2:00 p.m. Psychiatric Appointment Comment: Telehealth, In person, or by phone - your preference Therapist Name of Therapist: Irma Holguin Therapist's Date of Therapist Appointment: 02/06/20 Time of Therapist Appointment: 10:00 a.m. Therapy Appointment Comment: Telehealth, In person in [place], or by phone - your preference State Superintendent [employer] Name of State Superintendent Of Schools: [facility] Long Phone Number for State Superintendent Of Schools: [phone] Date of Appointment with State Superintendent Of Schools: 01/30/20 Time of Appointment with State Superintendent Of Schools: 1:00 p.m. Case Management Appointment Comment: By telephone Post Discharge Appointments Primary Care Physician Name Of Family Doctor: [facility] Date of Appointment with PCP: 02/07/20 Time of Appointment with PCP: 11:20 a.m. (In person) Provider Appointment Comment: [address], [place] [address] Smoking Cessation Counseling Tobacco Cessation Medication Prescribed at Discharge: Not Applicable/Non-Smoker Contact Information Discharge Discharge Address: [address] [place] [address] Contact Information Comment: House of Care Discharge Plan Discharge Items Patient Disposition: Personal Skilled Nursing Reason For Visit: SCHIZOAFFECTIVE DISORDER Discharge Diagnosis: same Condition on Discharge: Good Activity: Resume your previous activity Non-emergency contact: Primary Care Provider and Psychiatrist Call non-emergency contact if: you have any medication questions and your symptoms worsen Follow-up/Referrals: Dillon Rogers MD [Primary Care Provider] - Diet: Carb Consistent or DM2 Addtl Attending Provider Instructions: SPECIAL CARE INSTRUCTIONS: 1. Follow through with your scheduled aftercare appointments. If unable to keep an appointment, please call to reschedule. 2. Take your medication only as prescribed. Medication should not be changed or stopped without the approval of your doctor. In the event of worsening symptoms or concerns about side effects, contact your doctor immediately. 3. Utilize new healthy coping skills, anger management skills, and stress management skills learned during your hospitalization. Journal feelings and process them with a support person. Identify stressors or situations that may result in relapse, deterioration or inappropriate behaviors and develop a plan to deal with those issues. 4. If your coping skills are ineffective and you are in crisis, contact your outpatient providers for direction. If unable to reach your providers, please call the CAN HELP LINE AT or go to the closest Emergency Room. 5. Avoid alcohol and un-prescribed drugs. 6. You have been provided with the Mental Health Advance Directives Pamphlet for your review. AFTERCARE APPOINTMENTS: * Please call your insurance company prior to your scheduled appointment to confirm your aftercare providers are covered. Take your insurance information to your appointments. WHO TO CALL AND WHEN: Medical Emergencies: For questions or emergencies related to your hospital stay, please contact the Inpatient Behavioral Health Unit at [phone]. A office clinician is on-call 20/03 for the Behavioral Health Unit for emergencies At any time you feel your situation is an emergency, you may also call 911 immediately. Your Doctors Instructions noted above were prepared by provider Le John MD. Pending Studies at Discharge: No Stand-Alone Forms: My [facility] Diavibe, Smoking Cessation, Suicide Prevention Resources Skilled Items Patient informed of condition?: Yes DNR: No Discharge Level of Care: Other Communicable Disease: No Discharge Prognosis: Improving Lines: None Urinary Catheter: No Medications and DC Order Prescriptions: New olanzapine [Zyprexa] 5 mg tablet 5 mg PO DIRECTED 2 Days Qty: 2 RF: 0 Continued glipizide 10 mg tablet 10 mg PO BID Qty: 180 RF: 3 metformin 500 mg tablet extended release 24 hr 500 mg PO BID Qty: 60 RF: 5 Victoza 3-Antione 0.6 mg/0.1 mL (18 mg/3 mL) pen injector 1.8 mg SQ DAILY Qty: 9 RF: 5 Lantus Solostar U-100 Insulin 100 unit/mL (3 mL) insulin pen 100 units SQ BID Qty: 60 RF: 5 methimazole 10 mg tablet 10 mg PO DAILY Qty: 30 RF: 5 acetaminophen [Tylenol Extra Strength] 500 mg tablet 500 mg PO Q6H PRN (Reason: fever or pain) Qty: 20 RF: 0 fenofibrate micronized 130 mg capsule 130 mg PO DAILY Qty: 90 RF: 3 hydroxyzine HCl 25 mg tablet 25 mg PO TID Qty: 90 RF: 1 (DME) BD AutoShield Duo Pen Needle 30 gauge x 3/16" needle .ROUTE .MEDSUPPLY Qty: 200 RF: 3 cyanocobalamin (vitamin B-12) 1,000 mcg tablet 1,000 mcg PO DAILY Qty: 90 RF: 1 lisinopril 40 mg tablet 40 mg PO DAILY Qty: 90 RF: 1 hydrochlorothiazide 25 mg tablet 25 mg PO DAILY Qty: 90 RF: 1 aspirin 81 mg tablet,delayed release (DR/EC) 81 mg PO DAILY Qty: 90 RF: 3 olanzapine 20 mg tablet 20 mg PO HS RF: 0 atorvastatin 80 mg tablet 80 mg PO QPM Qty: 90 RF: 0 benztropine 1 mg tablet 1 mg PO HS RF: 0 (DME) OneTouch Ultra Blue Test Strip Strip .ROUTE .MEDSUPPLY RF: 0 Jardiance 10 mg Tablet 10 mg PO QAM RF: 0 Discontinued venlafaxine 75 mg tablet extended release 24hr 75 mg PO DAILY Qty: 30 RF: 1 olanzapine 5 mg Tablet 5 mg PO HS RF: 0 Discharge Orders: Discharge Order (Routine); Ordered 02/02/20 Ordered By: Le Deng/Other Patient Handouts: Diabetes Type 2 Managing Admission Data Admit Date/Time: 01/16/20 17:14 Attending Provider: Mitra Barry Admit Provider: Mitra Barry Primary Care Provider: Dillon Rogers V. Other Interventions: PSY Interdisciplinary Discharge Planning Last Done: 01/30/20 13:52 Coding Level of Care Code 21154 D/C day mgmt > 30 min Diagnoses Schizoaffective disorder, depressive type F25.1 Suicidal ideation R45.851 Diabetic nephropathy associated with type 2 diabetes mellitus E11.21
[2020-02-02] MEDS: OLANZapine 5 MG TABLET PO PRN (13:50)
== END 2020-02-02 16:08 | disposition home or self-care (01) | DRG 885 ==
LOC: ED 13:40 → 3S 17:14 → SUATTDRO 17:14 → 3S 17:37

== ENCOUNTER 2020-11-12 15:06 | Inpatient (IN) ==
[2020-11-12 15:52] LABS: Appearance Urine Cloudy (Clear); Bacteria Urine Automated 1+ (Negative); Bilirubin Urine Negative (Negative); Blood Urine Negative (Negative); Color Urine Yellow; Epithelial Cell Urine Auto >30 /lpf (0-5); Glucose Urine UA 3+ (Negative); Ketones Urine Negative (Negative); Leukocyte Esterase Urine 1+ (Negative); Nitrite Urine Negative (Negative); Protein Urine Negative (Negative); RBC Urine Automated 0-4 /hpf (0-4); Specific Gravity Urine 1.045 (1.000-1.030); Urobilinogen Urine Negative (Negative); WBC Urine Automated >30 /hpf (0-5)
--- NOTE | 2020-11-12 16:06 | Emergency Department Note ---
Impression & Plan Mood disorder, Suicidal ideations, Acute hyperglycemia ED Provider Note NAME: AMADO OLSON AGE: 55 SEX: F : 1965 ARRIVES VIA: Walk-In INFORMANT: Patient ED PROVIDER(S): Tima Sarah DO CHIEF COMPLAINT: Suicidal ideations HPI: Patient is a 55-year-old female who presents the ER for suicidal ideations with a plan to overdose. This has been present for the past 3 weeks. She denies any headache or change in vision. No chest pain or shortness of breath. No nausea vomiting or diarrhea. She notes at night sometimes she hears/sees things in regards to harm occurring to her children. She notes she would never harm her children. She notes that this happens to her about every 6 to 7 months where she has any thoughts of wanting to hurt herself. She does not believe that she can control them any longer. ROS: See above HPI for pertinent positives & negatives. A total of 10 systems reviewed and were otherwise negative. PAST MEDICAL HISTORY:See Below PAST SURGICAL HISTORY:See Below FAMILY HISTORY:See Below SOCIAL HISTORY:See Below HOME MEDICATIONS:See Below ALLERGIES:See Below VITALS:See Below PHYSICAL EXAMINATION: GENERAL: Sitting up in bed, alert, well appearing, well nourished, no distress, non-toxic EYE EXAM: normal conjunctiva. OROPHARYNX: no exudate, no erythema, lips, buccal mucosa, and tongue normal and mucous membranes are moist NECK: supple, no nuchal rigidity, no adenopathy, non-tender LUNGS: Clear to auscultation. Normal chest wall mechanics HEART: no murmurs, S1 normal and S2 normal ABDOMEN: abdomen soft, non-tender, normo-active bowel sounds, no masses, no rebound or guarding. BACK: Back is symmetrical on inspection and there is no deformity, no midline tenderness, no CVA tenderness. UPPER EXTREMITIES: upper extremities are grossly normal. LOWER EXTREMITIES: No pitting edema. NEURO EXAM: Normal sensorium, cranial nerves II-XII grossly intact, normal speech, no gross weakness of arms, no gross weakness of legs. PSYCH: Admits to suicidal ideations but denies any homicidal ideations MEDICAL DECISION MAKING: Patient is a 55-year-old female who presents the ER for suicidal ideations with plan to kill her self. She does want to come in for further evaluation. She has a history of schizoaffective disorder and diabetes. IV was established blood work was obtained. Labs show no significant leukocytosis or anemia. BMP with mild hypokalemia. BMP also showed an elevated glucose of 314. This trended down to 180 after NovoLog given subcu. Bilirubin LFTs was unremarkable. TSH was unremarkable. UA was contaminated with multiple epithelial cells. was negative. Will not treat at this time. No symptoms. Tox was negative. Alcohol negative. Covid negative. Patient was seen and evaluated by psychiatry admitted to 3 S. Observation Status: Indication:Medical stability Patient with a family history of Heart disease, was seen first at 1520 hrs and was necessary in order to determine Medical stability and psychiatric clearance and avoid unnecessary admission. Upon reevaluation, 5.5 hours of observation r evealed that the patient should be Admit to psychiatry. Disposition date and time 11/12/20 at 2045. Triage Nursing notes reviewed. Limited review of prior medical records performed Vital Signs: reviewed and remarkable for no significant abnormalities Differential diagnosis: Mood disorder, infection, hypoglycemia, electrolyte abnormalities, cardiac sources, intracerebral event, toxicologic, trauma, neurologic, as well as other pathologies. ER treatment provided: See below Diagnostics interpreted by me: ECG: none Laboratory studies: As stated above and show below. 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- DEANNA->( Tx 9 months ) no longer PPD need Schizoaffective disorder, bipolar type Schizoaffective disorder, depressive type Suicidal ideations UTI (urinary tract infection) Surgical History Hx of bilateral breast reduction surgery Hx of tonsillectomy Family History Father FHx: ischemic heart disease before age 50 Cardiac disorder Unknown Ovarian cancer Uncle Prostate cancer Grandfather Myocardial infarction Grandmother Cancer Denies family history of Breast cancer Social History Smoking Status: Never smoker Hx Alcohol Use: No Hx Substance Use: No Preferred Language: Arabic Communication Ability: Effective Visual Impairment: No Limitations 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: Normal [employer] Director Required: No Beliefs That Will Affect Care: None marital status: Single Current Living Situation: Personal Care Facility Current Living Situation Comment: [facility] current occupational status: unemployed Feels Safe at Home: Hesitant to Answer Dental Care, Regularly: Yes Physical Activity Frequency: 1-2 Times per Week Seatbelt Use: always Assistive Devices: Glasses Allergies Allergies Allergy/AdvReac Type Severity Reaction Status Date / Time Ocgiesc-Tjq-Rgn Reductase Allergy Mild Unknown Verified 11/12/20 15:39 Inhibitor sulfamethoxazole Allergy Mild Difficulty Verified 11/12/20 15:39 [From Bactrim] Breathing trimethoprim [From Bactrim] Allergy Mild Difficulty Verified 11/12/20 15:39 Breathing Home Meds Home Medications Medication Instructions Recorded Confirmed benztropine 1 mg tablet 1 mg PO HS tab 04/21/19 11/12/20 hydroxyzine HCl 25 mg tablet 25 mg PO TID PRN tab 07/27/20 11/12/20 liraglutide 0.6 mg/0.1 mL (18 mg/3 1.8 mg SUBCUT .COMPLEX ml 11/09/20 11/12/20 mL) subcutaneous pen injector olanzapine 20 mg tablet 30 mg PO HS tab 11/09/20 11/12/20 cyanocobalamin (vitamin B-12) 100 mcg PO DAILY 11/12/20 11/12/20 [Vitamin B-12] hydrochlorothiazide 25 mg PO DAILY 11/12/20 11/12/20 lisinopril 40 mg PO DAILY 11/12/20 11/12/20 Previous Rx's Medication Instructions Recorded aspirin 81 mg tablet,delayed 81 mg PO DAILY #90 tab 01/16/20 release insulin detemir U-100 100 unit/mL 100 units SQ BID 90 Days #180 ml 02/04/20 (3 mL) subcutaneous pen atorvastatin 80 mg tablet 80 mg PO HS #90 tab 02/17/20 olanzapine 5 mg tablet 5 mg PO .COMPLEX #1 tab 03/31/20 ferrous fumarate 325 mg (106 mg 325 mg PO DAILY #60 tab 05/07/20 iron) tablet metformin 500 mg tablet,extended 500 mg PO BID #60 tab 05/15/20 release 24 hr methimazole 10 mg tablet 10 mg PO DAILY #30 tab 05/15/20 OneTouch Ultra Blue Test Strip #200 ea NS 08/05/20 cholecalciferol (vitamin D3) 1,250 50,000 unit PO Q7D 90 Days #13 cap 10/19/20 mcg (50,000 unit) capsule empagliflozin 10 mg tablet 10 mg PO DAILY #90 tab 10/19/20 fenofibrate micronized 130 mg 130 mg PO DAILY #90 cap 10/19/20 capsule glipizide 10 mg tablet 10 mg PO BID #180 tab 10/19/20 BD AutoShield Duo Pen Needle 30 #300 ea NS 10/23/20 gauge x 3/16" losartan 100 1 tab PO DAILY #90 tab 11/09/20 mg-hydrochlorothiazide 25 mg tablet Results & Data (ED) Vital Signs Vital Signs - 24 hr 11/12/20 15:21 11/12/20 17:00 11/12/20 18:36 Temperature 36.6 C Temperature Source Oral Pulse Rate 110 H Pulse Rate [Right Finger] 89 94 H Pulse Rhythm Regular Pulse Rhythm [Right Finger] Regular Pulse Strength Normal Respiratory Rate 20 14 20 Respiratory Effort / Characteristics Non-Labored Spontaneous Non-Labored Spontaneous Non-Labored Respiratory Depth Normal Normal Normal Respiratory Pattern Regular Regular Blood Pressure 124/79 Blood Pressure [Left Arm] 105/61 126/97 Blood Pressure Mean 94 Blood Pressure Mean [Left Arm] 75 106 Blood Pressure Position Sitting Blood Pressure Position [Left Arm] Left Lateral Pulse Oximetry 96 94 96 Oxygen Delivery Method Room Air Room Air Room Air Sepsis Recent Fever Within 48 Hours No Sepsis New/Unexplained Change in Mental Status No Sepsis Action Taken by Nursing No Action Required Laboratory Data Result diagrams: 11/12/20 16:18 11/12/20 16:18 Lab Results 11/12/20 11/12/20 11/12/20 Range/Units 15:38 15:38 15:38 WBC (4.8-10.8) K/uL RBC (4.2-5.4) M/uL Hgb (12.0-16.0) g/dL Hct (37-47) % MCV (80-100) fL MCH (25-34) pg MCHC (32-36) g/dL RDW Std Deviation (36.4-46.3) fL RDW Coeff of Abel (11.5-14.5) % Plt Count (130-400) K/uL MPV (7.4-10.4) fL Immature Gran % (Auto) % Neut % (Auto) % Lymph % (Auto) % Fallon % (Auto) % Eos % (Auto) % Baso % (Auto) % Neut # (Auto) (1.4-6.5) K/uL Lymph # (Auto) (1.2-3.4) K/uL Fallon # (Auto) (0.11-0.59) K/uL Eos # (Auto) (0-0.5) K/uL Baso # (Auto) (0-0.2) K/uL Immature Gran # (Auto) (0.00-0.02) K/uL Sodium (136-145) mmol/L Potassium (3.5-5.1) mmol/L Chloride (98-107) mmol/L Carbon Dioxide (21-32) mmol/L Anion Gap (3-11) BUN (7-18) mg/dl Creatinine (0.6-1.2) mg/dl Est Cr Clr Drug Dosing ml/min Est GFR ( Amer) Est GFR (Non-Af Amer) BUN/Creatinine Ratio (10-20) Glucose (70-99) mg/dl POC Glucose (70-99) mg/dl Calcium (8.5-10.1) mg/dl Total Bilirubin (0.2-1) mg/dl AST (15-37) U/L ALT (12-78) U/L Alkaline Phosphatase (45-117) U/L Total Protein (6.4-8.2) gm/dl Albumin (3.4-5.0) gm/dl Globulin (2.5-4.0) gm/dl Albumin/Globulin Ratio (0.9-2) Beta-Hydroxybutyric Acd (0.2-2.81) mg/dl TSH (0.300-4.500) uIu/ml Urine Color Yellow Urine Appearance Cloudy A (Clear) Urine pH 5.0 (4.5-7.5) Ur Specific Rye 1.045 H (1.000-1.030) Urine Protein Negative (Negative) Urine Glucose (UA) 3+ H (Negative) Urine Ketones Negative (Negative) Urine Blood Negative (Negative) Urine Nitrite Negative (Negative) Urine Bilirubin Negative (Negative) Urine Urobilinogen Negative (Negative) Ur Leukocyte Esterase 1+ H (Negative) Urine WBC (Auto) >30 H (0-5) /hpf Urine RBC (Auto) 0-4 (0-4) /hpf U Hyaline Cast (Auto) 1-5 (0-5) /lpf U Epithel Cells (Auto) >30 H (0-5) /lpf Urine Bacteria (Auto) 1+ H (Negative) POC Ur Test NEG (NEG) Salicylates (2.8-20) mg/dl Urine Opiates Screen Neg (Neg) Ur Methadone, Qual Neg (Neg) Acetaminophen (10-30) ug/ml Urine Barbiturates Neg (Neg) Ur Phencyclidine (PCP) Neg (Neg) U Amphetamin/Meth Scrn Neg (Neg) MDMA (Ecstasy) Screen Neg (Neg) U Benzodiazepines Scrn Neg (Neg) Ur Cocaine Metabolite Neg (Neg) U Marijuana (THC) Screen Neg (Neg) Ethyl Alcohol mg/dL (0-3) mg/dl SARS-CoV-2 Ag (Rapid) (Negative) 11/12/20 11/12/20 11/12/20 Range/Units 16:03 16:18 16:18 WBC 11.95 H (4.8-10.8) K/uL RBC 5.82 H (4.2-5.4) M/uL Hgb 15.3 (12.0-16.0) g/dL Hct 44.8 (37-47) % MCV 77.0 L (80-100) fL MCH 26.3 (25-34) pg MCHC 34.2 (32-36) g/dL RDW Std Deviation 39.8 (36.4-46.3) fL RDW Coeff of Abel 14.2 (11.5-14.5) % Plt Count 311 (130-400) K/uL MPV 8.7 (7.4-10.4) fL Immature Gran % (Auto) 0.3 % Neut % (Auto) 62.6 % Lymph % (Auto) 27.9 % Fallon % (Auto) 6.9 % Eos % (Auto) 2.0 % Baso % (Auto) 0.3 % Neut # (Auto) 7.48 H (1.4-6.5) K/uL Lymph # (Auto) 3.33 (1.2-3.4) K/uL Fallon # (Auto) 0.82 H (0.11-0.59) K/uL Eos # (Auto) 0.24 (0-0.5) K/uL Baso # (Auto) 0.04 (0-0.2) K/uL Immature Gran # (Auto) 0.04 H (0.00-0.02) K/uL Sodium 135 L (136-145) mmol/L Potassium 3.3 L (3.5-5.1) mmol/L Chloride 101 (98-107) mmol/L Carbon Dioxide 23 (21-32) mmol/L Anion Gap 12.0 H (3-11) BUN 16 (7-18) mg/dl Creatinine 1.13 (0.6-1.2) mg/dl Est Cr Clr Drug Dosing 58.8 ml/min Est GFR ( Amer) 63.4 Est GFR (Non-Af Amer) 54.7 BUN/Creatinine Ratio 14.0 (10-20) Glucose 314 H* (70-99) mg/dl POC Glucose (70-99) mg/dl Calcium 9.9 (8.5-10.1) mg/dl Total Bilirubin 0.4 (0.2-1) mg/dl AST 16 (15-37) U/L ALT 41 (12-78) U/L Alkaline Phosphatase 170 H (45-117) U/L Total Protein 7.3 (6.4-8.2) gm/dl Albumin 3.7 (3.4-5.0) gm/dl Globulin 3.6 (2.5-4.0) gm/dl Albumin/Globulin Ratio 1.0 (0.9-2) Beta-Hydroxybutyric Acd 1.38 (0.2-2.81) mg/dl TSH 0.412 (0.300-4.500) uIu/ml Urine Color Urine Appearance (Clear) Urine pH (4.5-7.5) Ur Specific Rye (1.000-1.030) Urine Protein (Negative) Urine Glucose (UA) (Negative) Urine Ketones (Negative) Urine Blood (Negative) Urine Nitrite (Negative) Urine Bilirubin (Negative) Urine Urobilinogen (Negative) Ur Leukocyte Esterase (Negative) Urine WBC (Auto) (0-5) /hpf Urine RBC (Auto) (0-4) /hpf U Hyaline Cast (Auto) (0-5) /lpf U Epithel Cells (Auto) (0-5) /lpf Urine Bacteria (Auto) (Negative) POC Ur Test (NEG) Salicylates (2.8-20) mg/dl Urine Opiates Screen (Neg) Ur Methadone, Qual (Neg) Acetaminophen (10-30) ug/ml Urine Barbiturates (Neg) Ur Phencyclidine (PCP) (Neg) U Amphetamin/Meth Scrn (Neg) MDMA (Ecstasy) Screen (Neg) U Benzodiazepines Scrn (Neg) Ur Cocaine Metabolite (Neg) U Marijuana (THC) Screen (Neg) Ethyl Alcohol mg/dL (0-3) mg/dl SARS-CoV-2 Ag (Rapid) Negative (Negative) 11/12/20 11/12/20 11/12/20 Range/Units 16:18 16:18 18:10 WBC (4.8-10.8) K/uL RBC (4.2-5.4) M/uL Hgb (12.0-16.0) g/dL Hct (37-47) % MCV (80-100) fL MCH (25-34) pg MCHC (32-36) g/dL RDW Std Deviation (36.4-46.3) fL RDW Coeff of Abel (11.5-14.5) % Plt Count (130-400) K/uL MPV (7.4-10.4) fL Immature Gran % (Auto) % Neut % (Auto) % Lymph % (Auto) % Fallon % (Auto) % Eos % (Auto) % Baso % (Auto) % Neut # (Auto) (1.4-6.5) K/uL Lymph # (Auto) (1.2-3.4) K/uL Fallon # (Auto) (0.11-0.59) K/uL Eos # (Auto) (0-0.5) K/uL Baso # (Auto) (0-0.2) K/uL Immature Gran # (Auto) (0.00-0.02) K/uL Sodium (136-145) mmol/L Potassium (3.5-5.1) mmol/L Chloride (98-107) mmol/L Carbon Dioxide (21-32) mmol/L Anion Gap (3-11) BUN (7-18) mg/dl Creatinine (0.6-1.2) mg/dl Est Cr Clr Drug Dosing ml/min Est GFR ( Amer) Est GFR (Non-Af Amer) BUN/Creatinine Ratio (10-20) Glucose (70-99) mg/dl POC Glucose 249 H (70-99) mg/dl Calcium (8.5-10.1) mg/dl Total Bilirubin (0.2-1) mg/dl AST (15-37) U/L ALT (12-78) U/L Alkaline Phosphatase (45-117) U/L Total Protein (6.4-8.2) gm/dl Albumin (3.4-5.0) gm/dl Globulin (2.5-4.0) gm/dl Albumin/Globulin Ratio (0.9-2) Beta-Hydroxybutyric Acd (0.2-2.81) mg/dl TSH (0.300-4.500) uIu/ml Urine Color Urine Appearance (Clear) Urine pH (4.5-7.5) Ur Specific Rye (1.000-1.030) Urine Protein (Negative) Urine Glucose (UA) (Negative) Urine Ketones (Negative) Urine Blood (Negative) Urine Nitrite (Negative) Urine Bilirubin (Negative) Urine Urobilinogen (Negative) Ur Leukocyte Esterase (Negative) Urine WBC (Auto) (0-5) /hpf Urine RBC (Auto) (0-4) /hpf U Hyaline Cast (Auto) (0-5) /lpf U Epithel Cells (Auto) (0-5) /lpf Urine Bacteria (Auto) (Negative) POC Ur Test (NEG) Salicylates < 1.7 L (2.8-20) mg/dl Urine Opiates Screen (Neg) Ur Methadone, Qual (Neg) Acetaminophen < 2 L (10-30) ug/ml Urine Barbiturates (Neg) Ur Phencyclidine (PCP) (Neg) U Amphetamin/Meth Scrn (Neg) MDMA (Ecstasy) Screen (Neg) U Benzodiazepines Scrn (Neg) Ur Cocaine Metabolite (Neg) U Marijuana (THC) Screen (Neg) Ethyl Alcohol mg/dL < 3.0 (0-3) mg/dl SARS-CoV-2 Ag (Rapid) (Negative) 11/12/20 Range/Units 19:23 WBC (4.8-10.8) K/uL RBC (4.2-5.4) M/uL Hgb (12.0-16.0) g/dL Hct (37-47) % MCV (80-100) fL MCH (25-34) pg MCHC (32-36) g/dL RDW Std Deviation (36.4-46.3) fL RDW Coeff of Abel (11.5-14.5) % Plt Count (130-400) K/uL MPV (7.4-10.4) fL Immature Gran % (Auto) % Neut % (Auto) % Lymph % (Auto) % Fallon % (Auto) % Eos % (Auto) % Baso % (Auto) % Neut # (Auto) (1.4-6.5) K/uL Lymph # (Auto) (1.2-3.4) K/uL Fallon # (Auto) (0.11-0.59) K/uL Eos # (Auto) (0-0.5) K/uL Baso # (Auto) (0-0.2) K/uL Immature Gran # (Auto) (0.00-0.02) K/uL Sodium (136-145) mmol/L Potassium (3.5-5.1) mmol/L Chloride (98-107) mmol/L Carbon Dioxide (21-32) mmol/L Anion Gap (3-11) BUN (7-18) mg/dl Creatinine (0.6-1.2) mg/dl Est Cr Clr Drug Dosing ml/min Est GFR ( Amer) Est GFR (Non-Af Amer) BUN/Creatinine Ratio (10-20) Glucose (70-99) mg/dl POC Glucose 180 H (70-99) mg/dl Calcium (8.5-10.1) mg/dl Total Bilirubin (0.2-1) mg/dl AST (15-37) U/L ALT (12-78) U/L Alkaline Phosphatase (45-117) U/L Total Protein (6.4-8.2) gm/dl Albumin (3.4-5.0) gm/dl Globulin (2.5-4.0) gm/dl Albumin/Globulin Ratio (0.9-2) Beta-Hydroxybutyric Acd (0.2-2.81) mg/dl TSH (0.300-4.500) uIu/ml Urine Color Urine Appearance (Clear) Urine pH (4.5-7.5) Ur Specific Rye (1.000-1.030) Urine Protein (Negative) Urine Glucose (UA) (Negative) Urine Ketones (Negative) Urine Blood (Negative) Urine Nitrite (Negative) Urine Bilirubin (Negative) Urine Urobilinogen (Negative) Ur Leukocyte Esterase (Negative) Urine WBC (Auto) (0-5) /hpf Urine RBC (Auto) (0-4) /hpf U Hyaline Cast (Auto) (0-5) /lpf U Epithel Cells (Auto) (0-5) /lpf Urine Bacteria (Auto) (Negative) POC Ur Test (NEG) Salicylates (2.8-20) mg/dl Urine Opiates Screen (Neg) Ur Methadone, Qual (Neg) Acetaminophen (10-30) ug/ml Urine Barbiturates (Neg) Ur Phencyclidine (PCP) (Neg) U Amphetamin/Meth Scrn (Neg) MDMA (Ecstasy) Screen (Neg) U Benzodiazepines Scrn (Neg) Ur Cocaine Metabolite (Neg) U Marijuana (THC) Screen (Neg) Ethyl Alcohol mg/dL (0-3) mg/dl SARS-CoV-2 Ag (Rapid) (Negative) Administered Medications Discontinued Medications Insulin Aspart (Insulin Aspart Per Unit) 7 units SC NOW STA Stop: 11/12/20 17:57 Last Admin: 11/12/20 18:06 Dose: 7 units Documented by: [id number] Cosigned by: [id number] Potassium Chloride (Potassium Chloride Crtab 20 Meq Tabcr) 40 meq PO NOW STA Stop: 11/12/20 17:51 Last Admin: 11/12/20 18:17 Dose: 40 meq Documented by: [id number] Discharge Plan Visit Data Chief Complaint: Mental Health Evaluation Stated Complaint: MENTAL HEALTH EVAL ED Provider: Tima Sarah Discharge Problem: Mood disorder, Suicidal ideations, Acute hyperglycemia Forms Stand Alone Forms: My [facility], Suicide Prevention Resources Prescriptions Prescriptions: No Action aspirin 81 mg tablet,delayed release (DR/EC) 81 mg PO DAILY Qty: 90 RF: 3 Levemir FlexTouch U-100 Insuln 100 unit/mL (3 mL) insulin pen 100 units SQ BID 90 Days Qty: 180 RF: 3 atorvastatin 80 mg tablet 80 mg PO HS Qty: 90 RF: 3 metformin 500 mg tablet extended release 24 hr 500 mg PO BID Qty: 60 RF: 5 methimazole 10 mg tablet 10 mg PO DAILY Qty: 30 RF: 5 (DME) OneTouch Ultra Blue Test Strip Strip See Rx Instructions strip .ROUTE .MEDSUPPLY Qty: 200 RF: 3 glipizide 10 mg tablet 10 mg PO BID Qty: 180 RF: 3 cholecalciferol (vitamin D3) 1,250 mcg (50,000 unit) capsule 50,000 unit PO Q7D 90 Days Qty: 13 RF: 1 Jardiance 10 mg tablet 10 mg PO DAILY Qty: 90 RF: 3 fenofibrate micronized 130 mg capsule 130 mg PO DAILY Qty: 90 RF: 3 (DME) BD AutoShield Duo Pen Needle 30 gauge x 3/16" needle .ROUTE .MEDSUPPLY Qty: 300 RF: 3 olanzapine 20 mg tablet 30 mg PO HS RF: 0 olanzapine 5 mg tablet 5 mg PO .COMPLEX Qty: 1 RF: 2 Victoza 3-Antione 0.6 mg/0.1 mL (18 mg/3 mL) pen injector 1.8 mg subcut .COMPLEX RF: 0 losartan-hydrochlorothiazide 100-25 mg tablet 1 tab PO DAILY Qty: 90 RF: 3 hydroxyzine HCl 25 mg tablet 25 mg PO TID PRN (Reason: anxiety) RF: 0 benztropine 1 mg tablet 1 mg PO HS RF: 0 ferrous fumarate 325 mg (106 mg iron) tablet 325 mg PO DAILY Qty: 60 RF: 0 hydrochlorothiazide 25 mg Tablet 25 mg PO DAILY RF: 0 lisinopril 40 mg Tablet 40 mg PO DAILY RF: 0 cyanocobalamin (vitamin B-12) [Vitamin B-12] 100 mcg Tablet 100 mcg PO DAILY RF: 0
[2020-11-12 16:13] LABS: Amphetamines+Metham, Urine Neg (Neg); Barbiturates, Urine Neg (Neg); Benzodiazepine, Urine Neg (Neg); Cocaine, Urine Neg (Neg); MDMA (Ecstacy), Urine Neg (Neg); Methadone, Urine Neg (Neg); Opiate, Urine Neg (Neg); Phencyclidine, Urine Neg (Neg)
[2020-11-12 16:47] LABS: Basophils # (auto) 0.04 K/uL (0-0.2); Basophils % (auto) 0.3 %; Eosinophils # (auto) 0.24 K/uL (0-0.5); Hematocrit (blood only) 44.8 % (37-47); Hemoglobin 15.3 g/dL (12.0-16.0); Immature Granulocytes # (auto) 0.04 K/uL (0.00-0.02); Immature Granulocytes % (auto) 0.3 %; Lymphocytes # (auto) 3.33 K/uL (1.2-3.4); Lymphocytes % (auto) 27.9 %; Mean Corpuscular Hemoglobin 26.3 pg (25-34); Mean Corpuscular Hgb Conc 34.2 g/dL (32-36); Mean Platelet Volume 8.7 fL (7.4-10.4); Monocytes # (auto) 0.82 K/uL (0.11-0.59); Monocytes % (auto) 6.9 %; Neutrophils # (auto) 7.48 K/uL (1.4-6.5); Neutrophils % (auto) 62.6 %; Platelet Count 311 K/uL (130-400); RDW Coefficient of Variation 14.2 % (11.5-14.5); RDW Standard Deviation 39.8 fL (36.4-46.3); Red Blood Count 5.82 M/uL (4.2-5.4); White Blood Count 11.95 K/uL (4.8-10.8)
[2020-11-12 17:08] LABS: Acetaminophen < 2 ug/ml (10-30)
[2020-11-12 17:09] LABS: Salicylate < 1.7 mg/dl (2.8-20)
[2020-11-12 17:23] LABS: Albumin Level 3.7 gm/dl (3.4-5.0); Bilirubin,Total 0.4 mg/dl (0.2-1); Calcium 9.9 mg/dl (8.5-10.1); Creatinine Clr Calc Pharmacy 58.8 ml/min; Est GFR (African American) 63.4; Est GFR (Non-African American) 54.7; Globulin 3.6 gm/dl (2.5-4.0); Potassium 3.3 mmol/L (3.5-5.1); Thyroid Stimulating Hormone 0.412 uIu/ml (0.300-4.500); Total Protein 7.3 gm/dl (6.4-8.2)
[2020-11-12 17:37] LABS: Beta-Hydroxybutyrate 1.38 mg/dl (0.2-2.81)
[2020-11-12] MEDS ORDERED: POTASSIUM CHLORIDE CRTAB 20 MEQ TABCR PO STA (17:50)
[2020-11-12] MEDS ORDERED: NovoLIN-R INSULIN PER UNIT CHARGE SC STA (17:54)
[2020-11-12] MEDS ORDERED: INSULIN ASPART PER UNIT SC STA (17:56)
[2020-11-12] MEDS ORDERED: SODIUM CHLORIDE 0.65% NA SOLN 45 ML (OCEAN) PRN (20:18)
[2020-11-12] MEDS ORDERED: ACETAMINOPHEN 325 MG TAB PO PRN (20:18)
[2020-11-12] MEDS ORDERED: MAGNESIUM HYDROXIDE SUSP 30 ML UDC PO PRN (20:18)
[2020-11-12] MEDS ORDERED: BISMUTH SUBSALICYLATE LIQD 236 ML PO PRN (20:18)
[2020-11-12] MEDS ORDERED: ALUMINUM/MAGNESIUM SUSP 30 ML UDC PO PRN (20:18)
[2020-11-12] MEDS ORDERED: ATORVASTATIN 40 MG TAB PO SCH (21:00)
[2020-11-12] MEDS ORDERED: glipiZIDE 5 MG TAB PO SCH (21:00)
[2020-11-12] MEDS ORDERED: BENZTROPINE MESYLATE 1 MG TAB PO SCH (21:00)
[2020-11-12] MEDS ORDERED: PHARMACY GLYCEMIC MGMT CONSULT PRN (21:42)
[2020-11-12] MEDS: OLANZapine 10 MG TAB PO SCH (22:11)
[2020-11-12] MEDS: BENZTROPINE MESYLATE 1 MG TAB PO SCH (22:12)
[2020-11-12] MEDS: ATORVASTATIN 40 MG TAB PO SCH (22:13)
[2020-11-12] MEDS ORDERED: GLUCOSE 10 TABS/TUBE PO PRN (22:15)
[2020-11-12] MEDS ORDERED: CARBOHYDRATES FOR HYPOGLYCEMIA PO PRN (22:15)
[2020-11-12] MEDS ORDERED: GLUCOSE 40% GEL 15 GM TUBE PO PRN (22:15)
[2020-11-12] MEDS ORDERED: GLUCAGON FOR INJ 1 MG VIAL SQ PRN (22:15)
[2020-11-12] MEDS ORDERED: DEXTROSE 50% 50 ML SYRINGE IV PRN (22:15)
[2020-11-12] MEDS ORDERED: INSULIN GLARGINE SOLOSTAR 100 UNITS/ML 3 ML PEN SC ONE (22:15)
[2020-11-12] MEDS: INSULIN ASPART 100 UNITS/ML 3 ML PEN SC SCH (22:24)
[2020-11-13] MEDS ORDERED: TRICOR~ORDER AWAITING ACTION SCH
[2020-11-13] MEDS: hydrOXYzine HCl 25 MG TAB PO PRN ×2 (01:07→19:15)
[2020-11-13] MEDS ORDERED: INSULIN ASPART 100 UNITS/ML 3 ML PEN SC SCH (02:00)
[2020-11-13] MEDS ORDERED: metFORMIN HCL ER 500 MG TABCR PO SCH (08:00)
[2020-11-13 08:35] LABS: Estimated Average Glucose 212 mg/dl
[2020-11-13] MEDS ORDERED: CYANOCOBALAMIN (VITAMIN B-12) 100 MCG TABLET PO SCH (09:00)
[2020-11-13] MEDS ORDERED: FENOFIBRATE NANOCRYSTALLIZED 145 MG TABLET PO SCH (11:00)
--- NOTE | 2020-11-13 11:07 | History & Physical ---
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 (PCP) U Amphetamin/Meth Scrn MDMA (Ecstasy) Screen U Benzodiazepines Scrn Ur Cocaine Metabolite U Marijuana (THC) Screen Ethyl Alcohol mg/dL Hepatitis C Ab Screen Neg SARS-CoV-2 Ag (Rapid) 11/13/20 11/13/20 01:08 10:20 WBC RBC Hgb Hct MCV MCH MCHC RDW Std Deviation RDW Coeff of Abel Plt Count MPV Immature Gran % (Auto) Neut % (Auto) Lymph % (Auto) Sunflower % (Auto) Eos % (Auto) Baso % (Auto) Neut # (Auto) Lymph # (Auto) Sunflower # (Auto) Eos # (Auto) Baso # (Auto) Immature Gran # (Auto) Sodium Potassium Chloride Carbon Dioxide Anion Gap BUN Creatinine Est Cr Clr Drug Dosing Est GFR ( Amer) Est GFR (Non-Af Amer) BUN/Creatinine Ratio Glucose POC Glucose 227 H 206 H Estimat Average Glucose Hemoglobin A1c Calcium Total Bilirubin AST ALT Alkaline Phosphatase Total Protein Albumin Globulin Albumin/Globulin Ratio Beta-Hydroxybutyric Acd TSH Urine Color Urine Appearance Urine pH Ur Specific [place] Urine Protein Urine Glucose (UA) Urine Ketones Urine Blood Urine Nitrite Urine Bilirubin Urine Urobilinogen Ur Leukocyte Esterase Urine WBC (Auto) Urine RBC (Auto) U Hyaline Cast (Auto) U Epithel Cells (Auto) Urine Bacteria (Auto) POC Ur Test Salicylates Urine Opiates Screen Ur Methadone, Qual Acetaminophen Urine Barbiturates Ur Phencyclidine (PCP) U Amphetamin/Meth Scrn MDMA (Ecstasy) Screen U Benzodiazepines Scrn Ur Cocaine Metabolite U Marijuana (THC) Screen Ethyl Alcohol mg/dL Hepatitis C Ab Screen SARS-CoV-2 Ag (Rapid) Current Inpatient Medications Current Inpatient Medications: Current Inpatient Medications Acetaminophen (Acetaminophen 325 Mg Tab) 650 mg PO Q4H PRN PRN Reason: Headache or Minor Fever Stop: 12/12/20 20:17 Al Hydrox/Mg Hydrox/Simethicone (Aluminum/Magnesium Susp 30 Ml Udc) 30 ml PO Q4H PRN PRN Reason: GI Upset Stop: 12/12/20 20:17 Aspirin (Aspirin 81 Mg Ectab) 81 mg PO DAILY [facility] Stop: 12/13/20 08:59 Atorvastatin Calcium (Atorvastatin 40 Mg Tab) 80 mg PO HS [facility] Stop: 12/12/20 21:59 Last Admin: 11/12/20 22:13 Dose: 80 mg Documented by: Benztropine Mesylate (Benztropine Mesylate 1 Mg Tab) 1 mg PO HS [facility] Stop: 12/12/20 21:59 Last Admin: 11/12/20 22:12 Dose: 1 mg Documented by: Bismuth Subsalicylate (Bismuth Subsalicylate Liqd 236 Ml) 15 ml PO PRN PRN PRN Reason: Loose Stool Stop: 12/12/20 20:17 Cyanocobalamin (Cyanocobalamin 500 Mcg Tablet (Vitamin B-12)) 1,000 mcg PO DAILY [facility] Stop: 12/14/20 08:59 Dextrose (Dextrose 50% 50 Ml Syringe) 25 - 50 ml IV UD PRN; Protocol PRN Reason: Hypoglycemia Protocol Stop: 12/12/20 22:14 Ergocalciferol (Ergocalciferol 50,000 Units 1250 Mcg Cap) 50,000 units PO Fr@0900 [facility] Stop: 12/13/20 08:59 Ferrous Sulfate (Ferrous Sulfate 325 Mg Tab) 325 mg PO DAILY [facility] Stop: 12/13/20 08:59 Glucagon (Glucagon For Inj 1 Mg Vial) 1 mg SQ UD PRN; Protocol PRN Reason: Hypoglycemia Protocol Stop: 12/12/20 22:14 Glucose (Glucose 40% Gel 15 Gm Tube) 15 - 30 gm PO UD PRN; Protocol PRN Reason: Hypoglycemia Protocol Stop: 12/12/20 22:14 Glucose (Glucose 10 Tabs/Tube) 4 - 8 tabs PO UD PRN; Protocol PRN Reason: Hypoglycemia Protocol Stop: 12/12/20 22:14 HCTZ/Losartan Potassium (Losartan/Hctz 50/12.5mg Tab) 1 tab PO DAILY [facility] Stop: 12/13/20 08:59 Hydrochlorothiazide (Hydrochlorothiazide 25 Mg Tab) 25 mg PO DAILY [facility] Stop: 12/13/20 08:59 Hydroxyzine HCl (Hydroxyzine Hcl 25 Mg Tab) 50 mg PO HSZ PRN PRN Reason: Insomnia Stop: 12/12/20 20:17 Last Admin: 11/13/20 01:07 Dose: 50 mg Documented by: Hydroxyzine HCl (Hydroxyzine Hcl 25 Mg Tab) 25 mg PO Q4H PRN PRN Reason: Anxiety Stop: 12/12/20 20:17 Insulin Aspart (Insulin Aspart 100 Units/Ml 3 Ml Pen) 0 units SC ACHS [facility] Stop: 12/12/20 22:14 Last Admin: 11/12/20 22:24 Dose: Not Given Documented by: Insulin Glargine (Insulin Glargine Solostar 100 Units/Ml 3 Ml Pen) 50 units SC BID [facility] Stop: 12/13/20 08:59 Lisinopril (Lisinopril 40 Mg Tab) 40 mg PO DAILY [facility] Stop: 12/13/20 08:59 Magnesium Hydroxide (Magnesium Hydroxide Susp 30 Ml Udc) 30 ml PO DAILY PRN PRN Reason: Constipation Stop: 12/12/20 20:17 Methimazole (Methimazole 5 Mg Tablet) 10 mg PO DAILY [facility] Stop: 12/13/20 08:59 Miscellaneous (Carbohydrates For Hypoglycemia ) 15 - 30 gm PO UD PRN PRN Reason: Hypoglycemia Treatment Stop: 12/12/20 22:14 Miscellaneous Information (Pharmacy Glycemic Mgmt Consult) 1 ea N/A UD PRN PRN Reason: Consult Stop: 12/12/20 21:41 Olanzapine (Olanzapine 10 Mg Tab) 30 mg PO HS [facility] Stop: 12/12/20 21:59 Last Admin: 11/12/20 22:11 Dose: 30 mg Documented by: Olanzapine (Olanzapine 5 Mg Tablet) 5 mg PO DAILY@1500 [facility] Stop: 12/13/20 14:59 Sodium Chloride (Sodium Chloride 0.65% Na Soln 45 Ml ([place])) 1 - 2 sprays NA PRN PRN PRN Reason: Nasal Dryness/Congestion Stop: 12/12/20 20:17
[2020-11-13] MEDS: lisinopril 40 MG TAB PO SCH (11:11)
[2020-11-13] MEDS: LOSARTAN/HCTZ 50/12.5MG TAB PO SCH (11:12)
[2020-11-13] MEDS: FERROUS SULFATE 325 MG TAB PO SCH (11:12)
[2020-11-13] MEDS: ASPIRIN 81 MG ECTAB PO SCH (11:12)
[2020-11-13] MEDS: hydroCHLOROthiazide 25 MG TAB PO SCH (11:12)
[2020-11-13] MEDS: methIMAzole 5 MG TABLET PO SCH (11:12)
[2020-11-13] MEDS: ERGOCALCIFEROL 50,000 UNITS 1250 MCG CAP PO SCH (11:12)
[2020-11-13] MEDS: INSULIN ASPART 100 UNITS/ML 3 ML PEN SC SCH ×4 (11:17→21:08)
[2020-11-13] MEDS: INSULIN GLARGINE SOLOSTAR 100 UNITS/ML 3 ML PEN SC SCH ×2 (11:18→21:02)
[2020-11-13] MEDS: FENOFIBRATE NANOCRYSTALLIZED 145 MG TABLET PO SCH (11:26)
--- NOTE | 2020-11-13 13:18 | Pharmacy Report ---
Pharmacy Glycemic Short Note 2 - Date of Service November 13, 2020 - Glycemic Short BSG Results (Last 24 hours): 11/12/20 11/12/20 11/12/20 16:18 18:10 19:23 Glucose 314 H* POC Glucose 249 H 180 H 11/13/20 11/13/20 01:08 10:20 Glucose POC Glucose 227 H 206 H OUTPATIENT ANTIDIABETIC REGIMEN: * Levemir 100 units SQ BID * Liraglutide 1.8 mg SQ daily * Empagliflozin 10 mg PO daily * Glipizide 10 mg PO BID * Metformin ER 500 mg PO BID HbA1c = 8.8% on 10/26/20 ASSESSMENT: * 55 y/o F admitted for Schizophrenia. Patient with history of type 2 diabetes managed at home on 5 different anti-diabetic meds including basal insulin. * Will hold oral agents and SQ Liraglutide for admission and utilize SQ basal bolus insulin regimen which is the recommended regimen for inpatient glycemic control. * During prior admission in December 2019, patient was requiring around 70 units of basal insulin BID. However, at the time she refused most of these doses and had to be switched to oral Metformin and Glipizide. * Will trial basal 50 units BID which is a 50% decrease from home dose and Novolog for bolus insulin coverage for meals and bedtime. * Patient did refuse her Lantus 50 unit dose last night which most likely caused high BSG this AM of 206 mg/dl. * Nurse told me pt slept in late, so the breakfast coverage and Lantus dose for this AM was given late in the morning today. * So, I asked the nurse to skip the lunch BSG check and only cover carbs if pt is eating lunch as well. PLAN FOR INPATIENT GLYCEMIC CONTROL: * Hold outpatient oral diabetes medications unless patient refuses basal insulin * Basal insulin * Lantus 50 units SQ BID * Bolus insulin * NovoLog per scale ACHS or Q6hrs while NPO * Goal Range: Low 110 mg/dL - High 140 mg/dL * Correction Factor: 10 mg/dL/unit * Nutritional / Prandial insulin per carb ratio of 1 unit per 4 grams CHO consumed PLAN FOR DISCHARGE: * HbA1c = 8.8% * Goal A1c is less than 7%. * A1c is not at goal but is lower now than it has been on previous admissions. * Doses of oral anti-diabetic meds could be adjusted up. However, would leave that to the outpatient provider. * As long as patient is not reporting hypoglycemia at home, would continue all of her home anti-diabetic meds on discharge and encourage compliance with them.
[2020-11-13] MEDS: hydrOXYzine HCl 25 MG TAB PO SCH ×2 (14:36→21:00)
[2020-11-13] MEDS: OLANZapine 5 MG TABLET PO SCH (16:23)
[2020-11-13] MEDS: BENZTROPINE MESYLATE 1 MG TAB PO SCH (21:00)
[2020-11-13] MEDS: ATORVASTATIN 40 MG TAB PO SCH (21:01)
[2020-11-13] MEDS: PRAZOSIN HCL 1 MG CAP PO SCH ×2 (21:01→21:21)
[2020-11-13] MEDS: OLANZapine 10 MG TAB PO SCH (21:02)
[2020-11-13] MEDS: ZOLPIDEM TARTRATE 5 MG TAB PO PRN (21:25)
[2020-11-14] MEDS: ASPIRIN 81 MG ECTAB PO SCH (09:27)
[2020-11-14] MEDS: FERROUS SULFATE 325 MG TAB PO SCH (09:28)
[2020-11-14] MEDS: hydroCHLOROthiazide 25 MG TAB PO SCH (09:28)
[2020-11-14] MEDS: hydrOXYzine HCl 25 MG TAB PO SCH ×3 (09:29→21:08)
[2020-11-14] MEDS: methIMAzole 5 MG TABLET PO SCH ×2 (09:29→09:47)
[2020-11-14] MEDS: FENOFIBRATE NANOCRYSTALLIZED 145 MG TABLET PO SCH (09:29)
[2020-11-14] MEDS: LOSARTAN/HCTZ 50/12.5MG TAB PO SCH (09:29)
[2020-11-14] MEDS: CYANOCOBALAMIN 500 MCG TABLET (VITAMIN B-12) PO SCH ×2 (09:29→09:46)
[2020-11-14] MEDS: lisinopril 40 MG TAB PO SCH (09:30)
[2020-11-14] MEDS: INSULIN GLARGINE SOLOSTAR 100 UNITS/ML 3 ML PEN SC SCH ×2 (09:30→21:12)
[2020-11-14] MEDS: INSULIN ASPART 100 UNITS/ML 3 ML PEN SC SCH ×4 (09:31→21:09)
--- NOTE | 2020-11-14 11:00 | Pharmacy Report ---
Pharmacy Glycemic Short Note 2 - Date of Service November 14, 2020 - Glycemic Short BSG Results (Last 24 hours): 11/13/20 11/13/20 11/13/20 13:26 16:30 19:49 POC Glucose 215 H 198 H 247 H 11/14/20 08:36 POC Glucose 182 H OUTPATIENT ANTIDIABETIC REGIMEN: * Levemir 100 units SQ BID * Liraglutide 1.8 mg SQ daily * Empagliflozin 10 mg PO daily * Glipizide 10 mg PO BID * Metformin ER 500 mg PO BID HbA1c = 8.8% on 10/26/20 ASSESSMENT: 11/14/20 * Pt has received 179 units of insulin over the past 24hrs * 100 units of basal with Lantus * 79 units of bolus with NovoLog * BSGs 198-247 mg/dl * Increase basal and tighten CR at this time for better glycemic coverage 11/13/20 * 55 y/o F admitted for Schizophrenia. Patient with history of type 2 diabetes managed at home on 5 different anti-diabetic meds including basal insulin. * Will hold oral agents and SQ Liraglutide for admission and utilize SQ basal bolus insulin regimen which is the recommended regimen for inpatient glycemic control. * During prior admission in December 2019, patient was requiring around 70 units of basal insulin BID. However, at the time she refused most of these doses and had to be switched to oral Metformin and Glipizide. * Will trial basal 50 units BID which is a 50% decrease from home dose and Novolog for bolus insulin coverage for meals and bedtime. * Patient did refuse her Lantus 50 unit dose last night which most likely caused high BSG this AM of 206 mg/dl. * Nurse told me pt slept in late, so the breakfast coverage and Lantus dose for this AM was given late in the morning today. * So, I asked the nurse to skip the lunch BSG check and only cover carbs if pt is eating lunch as well. PLAN FOR INPATIENT GLYCEMIC CONTROL: * Hold outpatient oral diabetes medications unless patient refuses basal insulin * Basal insulin -increase * Lantus 60 units SQ BID * Bolus insulin * NovoLog per scale ACHS or Q6hrs while NPO * Goal Range: Low 110 mg/dL - High 140 mg/dL * Correction Factor: 10 mg/dL/unit * tighten: Nutritional / Prandial insulin per carb ratio of 1 unit per 3 grams CHO consumed PLAN FOR DISCHARGE: * HbA1c = 8.8% * Goal A1c is less than 7%. * A1c is not at goal but is lower now than it has been on previous admissions. * Doses of oral anti-diabetic meds could be adjusted up. However, would leave that to the outpatient provider. * As long as patient is not reporting hypoglycemia at home, would continue all of her home anti-diabetic meds on discharge and encourage compliance with them.
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
[2020-11-14] MEDS: OLANZapine 5 MG TABLET PO SCH (14:46)
[2020-11-14 18:05] LABS: Appearance Urine Clear (Clear); Bacteria Urine Automated Negative (Negative); Bilirubin Urine Negative (Negative); Blood Urine Negative (Negative); Color Urine Yellow; Epithelial Cell Urine Auto >30 /lpf (0-5); Glucose Urine UA 2+ (Negative); Ketones Urine Negative (Negative); Leukocyte Esterase Urine 2+ (Negative); Nitrite Urine Negative (Negative); Protein Urine Negative (Negative); RBC Urine Automated 0-4 /hpf (0-4); Specific Gravity Urine 1.023 (1.000-1.030); Urobilinogen Urine Negative (Negative)
[2020-11-14] MEDS: OLANZapine 10 MG TAB PO SCH (21:08)
[2020-11-14] MEDS: BENZTROPINE MESYLATE 1 MG TAB PO SCH (21:08)
[2020-11-14] MEDS: ATORVASTATIN 40 MG TAB PO SCH ×2 (21:08→21:22)
[2020-11-14] MEDS: PRAZOSIN HCL 1 MG CAP PO SCH ×3 (21:08→21:23)
[2020-11-14] MEDS: ZOLPIDEM TARTRATE 5 MG TAB PO PRN (21:24)
[2020-11-15] MEDS: hydroCHLOROthiazide 25 MG TAB PO SCH (09:23)
[2020-11-15] MEDS: ASPIRIN 81 MG ECTAB PO SCH (09:23)
[2020-11-15] MEDS: FERROUS SULFATE 325 MG TAB PO SCH (09:23)
[2020-11-15] MEDS: INSULIN GLARGINE SOLOSTAR 100 UNITS/ML 3 ML PEN SC SCH ×2 (09:24→21:08)
[2020-11-15] MEDS: LOSARTAN/HCTZ 50/12.5MG TAB PO SCH (09:24)
[2020-11-15] MEDS: CYANOCOBALAMIN 500 MCG TABLET (VITAMIN B-12) PO SCH (09:25)
[2020-11-15] MEDS: FENOFIBRATE NANOCRYSTALLIZED 145 MG TABLET PO SCH (09:25)
[2020-11-15] MEDS: methIMAzole 5 MG TABLET PO SCH ×2 (09:25→09:42)
[2020-11-15] MEDS: hydrOXYzine HCl 25 MG TAB PO SCH ×3 (09:25→21:19)
[2020-11-15] MEDS: lisinopril 40 MG TAB PO SCH ×2 (09:26→09:42)
[2020-11-15] MEDS: INSULIN ASPART 100 UNITS/ML 3 ML PEN SC SCH ×4 (09:27→21:16)
--- NOTE | 2020-11-15 09:37 | Pharmacy Report ---
Pharmacy Glycemic Short Note 2 - Date of Service November 15, 2020 - Glycemic Short BSG Results (Last 24 hours): 11/14/20 11/14/20 11/14/20 12:30 17:06 19:31 POC Glucose 206 H 202 H 194 H 11/15/20 08:28 POC Glucose 211 H OUTPATIENT ANTIDIABETIC REGIMEN: * Levemir 100 units SQ BID * Liraglutide 1.8 mg SQ daily * Empagliflozin 10 mg PO daily * Glipizide 10 mg PO BID * Metformin ER 500 mg PO BID HbA1c = 8.8% on 10/26/20 ASSESSMENT: 11/15/20 * Pt has received 221 units of insulin over the past 24hrs * 120 units of basal with Lantus * 101 units of bolus with NovoLog * BSGs 182-211 mg/dl * Increase basal, CR tightened twice yesterday, continue at this time 11/14/20 * Pt has received 179 units of insulin over the past 24hrs * 100 units of basal with Lantus * 79 units of bolus with NovoLog * BSGs 198-247 mg/dl * Increase basal and tighten CR for better glycemic coverage 11/13/20 * 55 y/o F admitted for Schizophrenia. Patient with history of type 2 diabetes managed at home on 5 different anti-diabetic meds including basal insulin. * Will hold oral agents and SQ Liraglutide for admission and utilize SQ basal bolus insulin regimen which is the recommended regimen for inpatient glycemic control. * During prior admission in December 2019, patient was requiring around 70 units of basal insulin BID. However, at the time she refused most of these doses and had to be switched to oral Metformin and Glipizide. * Will trial basal 50 units BID which is a 50% decrease from home dose and Novolog for bolus insulin coverage for meals and bedtime. * Patient did refuse her Lantus 50 unit dose last night which most likely caused high BSG this AM of 206 mg/dl. * Nurse told me pt slept in late, so the breakfast coverage and Lantus dose for this AM was given late in the morning today. * So, I asked the nurse to skip the lunch BSG check and only cover carbs if pt is eating lunch as well. PLAN FOR INPATIENT GLYCEMIC CONTROL: * Hold outpatient oral diabetes medications unless patient refuses basal insulin * Basal insulin -increase * Lantus 75 units SQ BID * Bolus insulin * NovoLog per scale ACHS or Q6hrs while NPO * Goal Range: Low 110 mg/dL - High 140 mg/dL * Correction Factor: 10 mg/dL/unit * Nutritional / Prandial insulin per carb ratio of 1 unit per 2.5 grams CHO consumed PLAN FOR DISCHARGE: * HbA1c = 8.8% * Goal A1c is less than 7%. * A1c is not at goal but is lower now than it has been on previous admissions. * Doses of oral anti-diabetic meds could be adjusted up. However, would leave that to the outpatient provider. * As long as patient is not reporting hypoglycemia at home, would continue all of her home anti-diabetic meds on discharge and encourage compliance with them.
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
[2020-11-15] MEDS: QUEtiapine FUMARATE 25 MG TABLET PO PRN ×2 (12:55→17:39)
[2020-11-15] MEDS: OLANZapine 5 MG TABLET PO SCH (14:34)
[2020-11-15] MEDS: hydrOXYzine HCl 25 MG TAB PO PRN ×2 (16:10→23:32)
[2020-11-15] MEDS: PRAZOSIN HCL 1 MG CAP PO SCH (21:18)
[2020-11-15] MEDS: ZOLPIDEM TARTRATE 5 MG TAB PO PRN (21:18)
[2020-11-15] MEDS: ATORVASTATIN 40 MG TAB PO SCH (21:19)
[2020-11-15] MEDS: BENZTROPINE MESYLATE 1 MG TAB PO SCH (21:19)
[2020-11-15] MEDS: OLANZapine 10 MG TAB PO SCH (21:20)
[2020-11-16] MEDS: INSULIN ASPART 100 UNITS/ML 3 ML PEN SC SCH ×4 (08:35→21:17)
[2020-11-16] MEDS: INSULIN GLARGINE SOLOSTAR 100 UNITS/ML 3 ML PEN SC SCH ×2 (08:37→21:19)
[2020-11-16] MEDS: hydroCHLOROthiazide 25 MG TAB PO SCH (08:44)
[2020-11-16] MEDS: FERROUS SULFATE 325 MG TAB PO SCH (08:44)
[2020-11-16] MEDS: ASPIRIN 81 MG ECTAB PO SCH (08:44)
[2020-11-16] MEDS: LOSARTAN/HCTZ 50/12.5MG TAB PO SCH (08:45)
[2020-11-16] MEDS: hydrOXYzine HCl 25 MG TAB PO SCH ×3 (08:46→21:05)
[2020-11-16] MEDS: CYANOCOBALAMIN 500 MCG TABLET (VITAMIN B-12) PO SCH (08:46)
[2020-11-16] MEDS: lisinopril 40 MG TAB PO SCH (08:46)
[2020-11-16] MEDS: methIMAzole 5 MG TABLET PO SCH (08:53)
[2020-11-16] MEDS: FENOFIBRATE NANOCRYSTALLIZED 145 MG TABLET PO SCH (08:53)
[2020-11-16] MEDS: QUEtiapine FUMARATE 25 MG TABLET PO PRN ×2 (09:46→15:19)
[2020-11-16] MEDS ORDERED: QUEtiapine FUMARATE 25 MG TABLET PO STA (09:54)
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
[2020-11-16] MEDS: OLANZapine 5 MG TABLET PO SCH (14:34)
[2020-11-16] MEDS: ATORVASTATIN 40 MG TAB PO SCH (21:04)
[2020-11-16] MEDS: OLANZapine 10 MG TAB PO SCH (21:06)
[2020-11-16] MEDS: PRAZOSIN HCL 1 MG CAP PO SCH (21:07)
[2020-11-16] MEDS: BENZTROPINE MESYLATE 1 MG TAB PO SCH (21:12)
[2020-11-16] MEDS: ZOLPIDEM TARTRATE 5 MG TAB PO PRN (21:16)
[2020-11-17] MEDS: INSULIN ASPART 100 UNITS/ML 3 ML PEN SC SCH ×4 (09:01→20:53)
[2020-11-17] MEDS: INSULIN GLARGINE SOLOSTAR 100 UNITS/ML 3 ML PEN SC SCH ×3 (09:03→20:51)
[2020-11-17] MEDS: ASPIRIN 81 MG ECTAB PO SCH (09:04)
[2020-11-17] MEDS: hydroCHLOROthiazide 25 MG TAB PO SCH (09:04)
[2020-11-17] MEDS: FERROUS SULFATE 325 MG TAB PO SCH (09:04)
[2020-11-17] MEDS: CYANOCOBALAMIN 500 MCG TABLET (VITAMIN B-12) PO SCH (09:05)
[2020-11-17] MEDS: LOSARTAN/HCTZ 50/12.5MG TAB PO SCH (09:05)
[2020-11-17] MEDS: hydrOXYzine HCl 25 MG TAB PO SCH ×3 (09:05→20:39)
[2020-11-17] MEDS: FENOFIBRATE NANOCRYSTALLIZED 145 MG TABLET PO SCH ×2 (09:05→09:27)
[2020-11-17] MEDS: methIMAzole 5 MG TABLET PO SCH (09:05)
[2020-11-17] MEDS: lisinopril 40 MG TAB PO SCH (09:06)
[2020-11-17] MEDS: QUEtiapine FUMARATE 25 MG TABLET PO PRN ×2 (09:39→19:49)
--- NOTE | 2020-11-17 09:44 | Psychiatric Progress Note ---
Date of Service November 17, 2020 Impression / Recommendations Impression 55-year-old woman with a known diagnosis of schizophrenia and a long history of multiple psychiatric hospitalizations who is admitted voluntarily with thoughts of killing herself, a belief that she is "unsafe" because unspecified others are trying to kill her, and worsening depression. She had not been sleeping well, and had recently been advised by her outpatient therapist that she can no longer call him between their weekly appointments, as she previously had been calling frequently. She has been started on an augmenting antipsychotic (quetiapine), as well as zolpidem and prazosin to target sleep. Although she notes some mild improvement, she continues to endorse severe depression, delusions, and suicidal thoughts, and is unable to contract for safety outside of the hospital, so inpatient treatment remains medically necessary. (1) Schizophrenia: 11/13 -The patient has been admitted to the [facility] inpatient psychiatric unit and is being closely observed with [id number] checks every 15 minutes. She has been referred for individual, group, and recreational therapies. We also plan a family meeting with her mother, assuming the patient's willingness. -We will also continue her current outpatient medications, including olanzapine 5 mg daily (afternoons) and 30 mg at bedtime as her primary antipsychotic. -Although the patient has a past history of periodically having difficulty sharing a bedroom with a peer, she also has a history of doing much better when she is able to tolerate a roommate. Currently, our assessment is that the patient is able to tolerate a roommate, and this is meant to her advantage in the past because the patient likes to be able to use a roommate for purposes companionship, and also for purposes of reality testing 11/14--reviewed. continue current meds and tx plan. 11/15--patient is willing to take Seroquel prn for breakthrough symptoms. Appears less depressed but a bit tired today following prn Vistaril. Seroquel 25 mg po q6 hr prn. 11/16--increase prn Seroquel to 50 mg po q6 hr. delusions appear ego syntonic/mood congruent but declines additional depression tx. 11/17 -continue current medications and treatment plan, reviewed labs for monitoring on an atypical antipsychotic from 10/26/2020: FLP notable for triglycerides 1119, cholesterol 254 (both are chronically elevated for at least the past 3 years), and hemoglobin A1c elevated at 8.8% (estimated average glucose 206). Although atypical antipsychotics have a risk of metabolic syndrome, patient is aware of this risk, and believes the benefits currently outweigh the risks, as her untreated psychotic symptoms cause worsening mood and suicidality, as well as inability to function. (2) Suicidal ideations: 11/13 -The patient reports that she is continuing to experience thoughts of suicide and today says that she cannot commit to safety in the community. She does say that she has no plan to physically harm herself in the hospital, and agrees to notify staff if such thoughts present themselves. -We are continuing suicide precautions with close observation. -Group therapies will focus on helping the patient improve her individual coping strategies. 11/14--reviewed. 11/15--resolved. 11/17 -patient reports suicidal thoughts have improved since admission, but are still present. She feels safe in the hospital, but not outside. (3) Depression: 11/13 -Although the patient does have a history of recurrent episodes of depression, and although in the past she has carried diagnoses of schizoaffective disorder, but by far the most prominent set of symptoms in this case are the symptoms of schizophrenia, and depression is thought to be a separate and secondary diagnosis. -The patient, herself, feels that her depression and anxious distress are primarily related to poor sleep, and the fact that she has found that she is "te rrified" of the nighta circumstance that often keeps her awake. Currently, we will offer the patient a trial of Ambien 5 mg at bedtime as needed for sleep. -Anxious distress is part of the patient's current mood. She reports that hydroxyzine ("Vistaril") helps, and says that she prefers a standing dose order of Vistaril 25 mg 3 times a day, with supplemental Vistaril dosages as needed. 11/14--reviewed. 11/15--Ambien remains effective. (4) Diabetes mellitus type 2, uncontrolled: 11/13 -Pharmacy diabetic consultation has been provided, and recommendations are being followed. The patient's blood glucose levels at admission are elevated, and several adjustments in her medication regimen have been necessary. 11/14--reviewed. Inventory Assets Strengths: Intelligent. Good support system. Insight into the need for her treatment. History of favorable response to medications and other forms of psychiatric treatment. Needs: Resolution of psychosis. Improved mood. Resolution of active suicidal ideations. Risk Factors Assessment Male: No : Yes Do You Have Access To A Gun?: No Health Problems: Yes Mental Health Diagnoses: Yes Substance Use Disorders: No Previous Attempt: Yes Previous Attempt; Highly Lethal: Yes Previous Attempt; Planned: Yes Previous Attempt; Didn't Tell Anyone: Yes Family History of Suicide: No Previous Psychiatric Hospitalization: Yes Hopelessness: No Smoker: No Protective Factors Assessment Temple Beliefs: No : No Responsible for Young Children: No Employed: No Stable Relationships: Yes Supportive Family: Yes Good Rapport with Provider: Yes Absence of Any Risk Factors Above: No Interval History Identifying Information 55 yo female with schizoaffective disorder, recurrent SI and IDDM admitt on 201 commitment, well known to 3S from previous hospitalizations. Chief Complaint "Not too good, depressed, suicidal". Review of Systems Sleep Information Total Hours of Sleep: 7 Sleep Comments: walked 1 lap this shift. Meal Information Percent Meal Consumed - Breakfast: 100 Percent Meal Consumed - Lunch: 90 Percent Meal Consumed - Dinner: 100 Subjective Subjective Patient was seen & assessed and interval progress reviewed with nursing and social work. Staff report she had a difficult day yesterday, was isolative, and did not want to talk about how she was feeling. She requested and received multiple as needed medications, including 3 doses of quetiapine and zolpidem. On my assessment today, she states she continues to feel depressed, "weepy, sad, suicidal." She feels safe in the hospital, but not outside. Suicidal thoughts have improved since admission, but are still present, and she reports overwhelming negative thoughts that life is not worth living, and delusions that the whole world is against her, trying to kill her. She has some insight that these are delusional thoughts, and is trying to focus on more positive thoughts, for which groups are helpful. Sleep has improved with Ambien, and she feels Seroquel is helping "to calm me down, make me more steady, rational, lifted my spirit a little bit." She denies auditory and visual hallucinations. Physical Exam Psychiatric Orientation: alert and cooperative Apperance: appropriately dressed, appropriately groomed and appeared stated age Eye Contact: + fair eye contact Motor Behavior: steady gait and station and no abnormal motor movements Soft, slight accent Affect: + depressed affect, + constricted affect and mood congruent with affect Mood: + depressed mood Thought Process: goal directed thought process Thought Content: + paranoid, + cognitive distortions, + delusions and + persecution Suicidal Thoughts: + reports suicidal thoughts Homicidal Thoughts: denies homicidal thoughts Hallucinations: no auditory hallucinations and no visual hallucinations Cognition: recent memory grossly intact, attention grossly intact and language grossly intact Insight: + fair insight Judgement: + fair judgement Vital Signs (Past 24 Hours) Last Vital Signs Temp 36.5 C 11/17/20 06:00 Pulse 81 11/17/20 07:02 Resp 16 11/17/20 06:00 BP 114/75 11/17/20 07:02 Pulse Ox 96 11/12/20 20:42 Results & Data ([facility]) Laboratory Results Laboratory Results - last 24 hr 11/16/20 11/16/20 11/16/20 12:19 17:16 19:57 POC Glucose 153 H 209 H 232 H 11/17/20 08:28 POC Glucose 215 H Current Inpatient Medications Current Inpatient Medications: Current Inpatient Medications Acetaminophen (Acetaminophen 325 Mg Tab) 650 mg PO Q4H PRN PRN Reason: Headache or Minor Fever Stop: 12/12/20 20:17 Al Hydrox/Mg Hydrox/Simethicone (Aluminum/Magnesium Susp 30 Ml Udc) 30 ml PO Q4H PRN PRN Reason: GI Upset Stop: 12/12/20 20:17 Aspirin (Aspirin 81 Mg Ectab) 81 mg PO DAILY ANNAMARIA Stop: 12/13/20 08:59 Last Admin: 11/17/20 09:04 Dose: 81 mg Documented by: Atorvastatin Calcium (Atorvastatin 40 Mg Tab) 40 mg PO HS ANNAMARIA Stop: 12/15/20 21:59 Last Admin: 11/16/20 21:04 Dose: 40 mg Documented by: Benztropine Mesylate (Benztropine Mesylate 1 Mg Tab) 1 mg PO HS ANNAMARIA Stop: 12/12/20 21:59 Last Admin: 11/16/20 21:12 Dose: 1 mg Documented by: Bismuth Subsalicylate (Bismuth Subsalicylate Liqd 236 Ml) 15 ml PO PRN PRN PRN Reason: Loose Stool Stop: 12/12/20 20:17 Cyanocobalamin (Cyanocobalamin 500 Mcg Tablet (Vitamin B-12)) 1,000 mcg PO DAILY ANNAMARIA Stop: 12/14/20 08:59 Last Admin: 11/17/20 09:05 Dose: 500 mcg Documented by: Dextrose (Dextrose 50% 50 Ml Syringe) 25 - 50 ml IV UD PRN; Protocol PRN Reason: Hypoglycemia Protocol Stop: 12/12/20 22:14 Ergocalciferol (Ergocalciferol 50,000 Units 1250 Mcg Cap) 50,000 units PO Fr@0900 ANNAMARIA Stop: 12/13/20 08:59 Last Admin: 11/13/20 11:12 Dose: 50,000 units Documented by: Fenofibrate (Fenofibrate Nanocrystallized 145 Mg Tablet) 145 mg PO QAM ANNAMARIA Stop: 12/13/20 10:59 Last Admin: 11/17/20 09:27 Dose: Not Given Documented by: Ferrous Sulfate (Ferrous Sulfate 325 Mg Tab) 325 mg PO DAILY ANNAMARIA Stop: 12/13/20 08:59 Last Admin: 11/17/20 09:04 Dose: 325 mg Documented by: Glucagon (Glucagon For Inj 1 Mg Vial) 1 mg SQ UD PRN; Protocol PRN Reason: Hypoglycemia Protocol Stop: 12/12/20 22:14 Glucose (Glucose 40% Gel 15 Gm Tube) 15 - 30 gm PO UD PRN; Protocol PRN Reason: Hypoglycemia Protocol Stop: 12/12/20 22:14 Glucose (Glucose 10 Tabs/Tube) 4 - 8 tabs PO UD PRN; Protocol PRN Reason: Hypoglycemia Protocol Stop: 12/12/20 22:14 HCTZ/Losartan Potassium (Losartan/Hctz 50/12.5mg Tab) 1 tab PO DAILY ANNAMARIA Stop: 12/13/20 08:59 Last Admin: 11/17/20 09:05 Dose: 1 tab Documented by: Hydrochlorothiazide (Hydrochlorothiazide 25 Mg Tab) 25 mg PO DAILY ANNAMARIA Stop: 12/13/20 08:59 Last Admin: 11/17/20 09:04 Dose: 25 mg Documented by: Hydroxyzine HCl (Hydroxyzine Hcl 25 Mg Tab) 50 mg PO HSZ PRN PRN Reason: Insomnia Stop: 12/12/20 20:17 Last Admin: 11/15/20 23:32 Dose: 50 mg Documented by: Hydroxyzine HCl (Hydroxyzine Hcl 25 Mg Tab) 25 mg PO Q4H PRN PRN Reason: Anxiety Stop: 12/12/20 20:17 Last Admin: 11/15/20 16:10 Dose: 25 mg Documented by: Hydroxyzine HCl (Hydroxyzine Hcl 25 Mg Tab) 25 mg PO TID [facility] Stop: 12/13/20 13:59 Last Admin: 11/17/20 09:05 Dose: 25 mg Documented by: Insulin Aspart (Insulin Aspart 100 Units/Ml 3 Ml Pen) 0 units SC ACHS [facility] Stop: 12/12/20 22:14 Last Admin: 11/17/20 09:01 Dose: 27 units Documented by: Insulin Glargine (Insulin Glargine Solostar 100 Units/Ml 3 Ml Pen) 85 units SC BID [facility]; Protocol Stop: 12/17/20 09:14 Lisinopril (Lisinopril 40 Mg Tab) 40 mg PO DAILY [facility] Stop: 12/13/20 08:59 Last Admin: 11/17/20 09:06 Dose: 40 mg Documented by: Magnesium Hydroxide (Magnesium Hydroxide Susp 30 Ml Udc) 30 ml PO DAILY PRN PRN Reason: Constipation Stop: 12/12/20 20:17 Methimazole (Methimazole 5 Mg Tablet) 10 mg PO DAILY [facility] Stop: 12/13/20 08:59 Last Admin: 11/17/20 09:05 Dose: 10 mg Documented by: Miscellaneous (Carbohydrates For Hypoglycemia ) 15 - 30 gm PO UD PRN PRN Reason: Hypoglycemia Treatment Stop: 12/12/20 22:14 Miscellaneous Information (Pharmacy Glycemic Mgmt Consult) 1 ea N/A UD PRN PRN Reason: Consult Stop: 12/12/20 21:41 Olanzapine (Olanzapine 10 Mg Tab) 30 mg PO HS [facility] Stop: 12/12/20 21:59 Last Admin: 11/16/20 21:06 Dose: 30 mg Documented by: Olanzapine (Olanzapine 5 Mg Tablet) 5 mg PO DAILY@1500 ANNAMARIA Stop: 12/13/20 14:59 Last Admin: 11/16/20 14:34 Dose: 5 mg Documented by: Prazosin HCl (Prazosin Hcl 1 Mg Cap) 1 mg PO HS [facility] Stop: 12/16/20 21:59 Last Admin: 11/16/20 21:07 Dose: 1 mg Documented by: Quetiapine Fumarate (Quetiapine Fumarate 25 Mg Tablet) 50 mg PO Q6 PRN PRN Reason: Anxiety/Agitation Stop: 12/15/20 11:59 Last Admin: 11/16/20 15:19 Dose: 50 mg Documented by: Sodium Chloride (Sodium Chloride 0.65% Na Soln 45 Ml ([place])) 1 - 2 sprays NA PRN PRN PRN Reason: Nasal Dryness/Congestion Stop: 12/12/20 20:17 Zolpidem Tartrate (Zolpidem Tartrate 5 Mg Tab) 5 mg PO HS PRN PRN Reason: Sleep Stop: 12/13/20 11:54 Last Admin: 11/16/20 21:16 Dose: 5 mg Documented by: Mental Health & Subst Abuse Tx Therapist Name of Therapist: Cristo Simmons Anodizer Name of Anodizer: ADRIEL Cortes Post Discharge Appointments Primary Care Physician Name Of Family Doctor: Dr. Reece, [facility] [place]
--- NOTE | 2020-11-17 10:10 | Pharmacy Report ---
Pharmacy Glycemic Short Note 2 - Date of Service November 17, 2020 - Glycemic Short BSG Results (Last 24 hours): 11/16/20 11/16/20 11/16/20 12:19 17:16 19:57 POC Glucose 153 H 209 H 232 H 11/17/20 08:28 POC Glucose 215 H OUTPATIENT ANTIDIABETIC REGIMEN: * Levemir 100 units SQ BID * Liraglutide 1.8 mg SQ daily * Empagliflozin 10 mg PO daily * Glipizide 10 mg PO BID * Metformin ER 500 mg PO BID HbA1c = 8.8% on 10/26/20 ASSESSMENT: 11/17/20: * Pt has received 238 units of insulin over the past 24hrs * 150 units of basal with Lantus * 88 units of bolus with NovoLog * BSGs [phone] mg/dl * AM fasting BSG is above goal range at 215 mg/dl. Will increase basal insulin by 10-15% and continue to titrate based on BSG trends. * Post-prandial BSGs are elevated after receiving only CHO coverage (i.e. when pre-meal BSG is at or near goal range). Will tighten CHO ratio and loosen CF since basal insulin is being increased. 11/15/20 * Pt has received 221 units of insulin over the past 24hrs * 120 units of basal with Lantus * 101 units of bolus with NovoLog * BSGs 182-211 mg/dl * Increase basal, CR tightened twice yesterday, continue at this time 11/14/20 * Pt has received 179 units of insulin over the past 24hrs * 100 units of basal with Lantus * 79 units of bolus with NovoLog * BSGs 198-247 mg/dl * Increase basal and tighten CR for better glycemic coverage 11/13/20 * 55 y/o F admitted for Schizophrenia. Patient with history of type 2 diabetes managed at home on 5 different anti-diabetic meds including basal insulin. * Will hold oral agents and SQ Liraglutide for admission and utilize SQ basal bolus insulin regimen which is the recommended regimen for inpatient glycemic control. * During prior admission in December 2019, patient was requiring around 70 units of basal insulin BID. However, at the time she refused most of these doses and had to be switched to oral Metformin and Glipizide. * Will trial basal 50 units BID which is a 50% decrease from home dose and N ovolog for bolus insulin coverage for meals and bedtime. * Patient did refuse her Lantus 50 unit dose last night which most likely caused high BSG this AM of 206 mg/dl. * Nurse told me pt slept in late, so the breakfast coverage and Lantus dose for this AM was given late in the morning today. * So, I asked the nurse to skip the lunch BSG check and only cover carbs if pt is eating lunch as well. PLAN FOR INPATIENT GLYCEMIC CONTROL: * Hold outpatient oral diabetes medications unless patient refuses basal insulin * Basal insulin -increase * Lantus 85 units SQ BID * Bolus insulin * NovoLog per scale ACHS or Q6hrs while NPO * Goal Range: Low 110 mg/dL - High 140 mg/dL * Correction Factor: 9 mg/dL/unit * Nutritional / Prandial insulin per carb ratio of 1 unit per 2 grams CHO consumed PLAN FOR DISCHARGE: * HbA1c = 8.8% * Goal A1c is less than 7%. * A1c is not at goal but is lower now than it has been on previous admissions. * Doses of oral anti-diabetic meds could be adjusted up. However, would leave that to the outpatient provider. * As long as patient is not reporting hypoglycemia at home, would continue all of her home anti-diabetic meds on discharge and encourage compliance with them.
[2020-11-17] MEDS: OLANZapine 5 MG TABLET PO SCH (14:38)
[2020-11-17] MEDS: QUEtiapine FUMARATE 25 MG TABLET PO SCH (15:40)
[2020-11-17] MEDS: BENZTROPINE MESYLATE 1 MG TAB PO SCH (20:40)
[2020-11-17] MEDS: OLANZapine 10 MG TAB PO SCH (20:41)
[2020-11-17] MEDS: PRAZOSIN HCL 1 MG CAP PO SCH (20:41)
[2020-11-17] MEDS: ATORVASTATIN 40 MG TAB PO SCH (20:41)
[2020-11-17] MEDS ORDERED: QUEtiapine FUMARATE 25 MG TABLET PO SCH (21:00)
[2020-11-18] MEDS: hydroCHLOROthiazide 25 MG TAB PO SCH (09:42)
[2020-11-18] MEDS: LOSARTAN/HCTZ 50/12.5MG TAB PO SCH ×2 (09:42→10:03)
[2020-11-18] MEDS: ASPIRIN 81 MG ECTAB PO SCH (09:42)
[2020-11-18] MEDS: FERROUS SULFATE 325 MG TAB PO SCH (09:42)
[2020-11-18] MEDS: INSULIN GLARGINE SOLOSTAR 100 UNITS/ML 3 ML PEN SC SCH ×2 (09:44→21:06)
[2020-11-18] MEDS: methIMAzole 5 MG TABLET PO SCH ×2 (09:45→10:00)
[2020-11-18] MEDS: FENOFIBRATE NANOCRYSTALLIZED 145 MG TABLET PO SCH (09:45)
[2020-11-18] MEDS: CYANOCOBALAMIN 500 MCG TABLET (VITAMIN B-12) PO SCH (09:45)
[2020-11-18] MEDS: hydrOXYzine HCl 25 MG TAB PO SCH ×3 (09:45→21:00)
[2020-11-18] MEDS: QUEtiapine FUMARATE 25 MG TABLET PO SCH ×2 (09:45→14:31)
[2020-11-18] MEDS: lisinopril 40 MG TAB PO SCH ×2 (09:46→10:04)
[2020-11-18] MEDS: INSULIN ASPART 100 UNITS/ML 3 ML PEN SC SCH ×4 (09:48→21:05)
--- NOTE | 2020-11-18 10:17 | Psychiatric Progress Note ---
Date of Service November 18, 2020 Impression / Recommendations Impression 55-year-old woman with a known diagnosis of schizophrenia and a long history of multiple psychiatric hospitalizations who is admitted voluntarily with thoughts of killing herself, a belief that she is "unsafe" because unspecified others are trying to kill her, and worsening depression. She had not been sleeping well, and had recently been advised by her outpatient therapist that she can no longer call him between their weekly appointments, as she previously had been calling frequently. She has been started on an augmenting antipsychotic (quetiapine), as well as zolpidem and prazosin to target sleep. Although she notes some mild improvement, she continues to endorse severe depression, delusions, and suicidal thoughts, and is unable to contract for safety outside of the hospital, so inpatient treatment remains medically necessary. (1) Schizophrenia: 11/13 -The patient has been admitted to the [facility] inpatient psychiatric unit and is being closely observed with [id number] checks every 15 minutes. She has been referred for individual, group, and recreational therapies. We also plan a family meeting with her mother, assuming the patient's willingness. -We will also continue her current outpatient medications, including olanzapine 5 mg daily (afternoons) and 30 mg at bedtime as her primary antipsychotic. -Although the patient has a past history of periodically having difficulty sharing a bedroom with a peer, she also has a history of doing much better when she is able to tolerate a roommate. Currently, our assessment is that the patient is able to tolerate a roommate, and this is meant to her advantage in the past because the patient likes to be able to use a roommate for purposes companionship, and also for purposes of reality testing 11/14--reviewed. continue current meds and tx plan. 11/15--patient is willing to take Seroquel prn for breakthrough symptoms. Appears less depressed but a bit tired today following prn Vistaril. Seroquel 25 mg po q6 hr prn. 11/16--increase prn Seroquel to 50 mg po q6 hr. delusions appear ego syntonic/mood congruent but declines additional depression tx. 11/17 -continue current medications and treatment plan, reviewed labs for monitoring on an atypical antipsychotic from 10/26/2020: FLP notable for triglycerides 1119, cholesterol 254 (both are chronically elevated for at least the past 3 years), and hemoglobin A1c elevated at 8.8% (estimated average glucose 206). Although atypical antipsychotics have a risk of metabolic syndrome, patient is aware of this risk, and believes the benefits currently outweigh the risks, as her untreated psychotic symptoms cause worsening mood and suicidality, as well as inability to function. 11/18 - Continue current medication regimen - patient admitting to benefits from addition of quetiapine twice daily. - Reports worsened mood today, feeling more "down". Seems to be rather troubled and distracted today, though states she is not interested in discussing any of these things at present - Continue to monitor mood and severity of delusional thinking (2) Suicidal ideations: 11/13 -The patient reports that she is continuing to experience thoughts of suicide and today says that she cannot commit to safety in the community. She does say that she has no plan to physically harm herself in the hospital, and agrees to notify staff if such thoughts present themselves. -We are continuing suicide precautions with close observation. -Group therapies will focus on helping the patient improve her individual coping strategies. 11/14--reviewed. 11/15--resolved. 11/17 -patient reports suicidal thoughts have improved since admission, but are still present. She feels safe in the hospital, but not outside. 11/18 - Ongoing SI unable to contract for safety outside of hospital. (3) Depression: 11/13 -Although the patient does have a history of recurrent episodes of depression, and although in the past she has carried diagnoses of schizoaffective disorder, but by far the most prominent set of symptoms in this case are the symptoms of schizophrenia, and depression is thought to be a separate and secondary diagnosis. -The patient, herself, feels that her depression and anxious distress are primarily related to poor sleep, and the fact that she has found that she is "terrified" of the nighta circumstance that often keeps her awake. Currently, we will offer the patient a trial of Ambien 5 mg at bedtime as needed for sleep. -Anxious distress is part of the patient's current mood. She reports that hydroxyzine ("Vistaril") helps, and says that she prefers a standing dose order of Vistaril 25 mg 3 times a day, with supplemental Vistaril dosages as needed. 11/14--reviewed. 11/15--Ambien remains effective. 11/18 - Continue as above - patient reports feeling "down" today, able to contract for safety on unit, but not outside of hospital. (4) Diabetes mellitus type 2, uncontrolled: 11/13 -Pharmacy diabetic consultation has been provided, and recommendations are being followed. The patient's blood glucose levels at admission are elevated, and several adjustments in her medication regimen have been necessary. 11/14--reviewed. Inventory Assets Strengths: Intelligent. Good support system. Insight into the need for her treatment. History of favorable response to medications and other forms of psychiatric treatment. Needs: Resolution of psychosis. Improved mood. Resolution of active suicidal ideations. Risk Factors Assessment Male: No : Yes Do You Have Access To A Gun?: No Health Problems: Yes Mental Health Diagnoses: Yes Substance Use Disorders: No Previous Attempt: Yes Previous Attempt; Highly Lethal: Yes Previous Attempt; Planned: Yes Previous Attempt; Didn't Tell Anyone: Yes Family History of Suicide: No Previous Psychiatric Hospitalization: Yes Hopelessness: No Smoker: No Protective Factors Assessment L[employer] Beliefs: No : No Responsible for Young Children: No Employed: No Stable Relationships: Yes Supportive Family: Yes Good Rapport with Provider: Yes Absence of Any Risk Factors Above: No Interval History Identifying Information 55 yo female with schizoaffective disorder, recurrent SI and IDDM admitt on 201 commitment, well known to 3S from previous hospitalizations. Chief Complaint "Not feeling so well today. Emotionally and physically." Review of Systems Notes Constitutional: reports "I just feel weak today" Cardiovascular: denied Respiratory: denied Gastrointestinal: reports episode of nausea after taking medications last evening Neurological: denied Psychiatric: denies symptoms other than stated above Total of at least 10 systems reviewed, pertinent positives as above and in HPI. Sleep Information Total Hours of Sleep: 4.5 Sleep Comments: pt on q-15 minute checks Meal Information Percent Meal Consumed - Breakfast: 75 Percent Meal Consumed - Lunch: 100 Percent Meal Consumed - Dinner: 100 Subjective Subjective Patient was seen & assessed and interval progress reviewed with treatment team. Staff report the patient has been somewhat isolative. She was observed to be pacing last evening and has rather limited engagement with peers. Pt rated her mood a 3/10 and "anxious" last evening. Pt was seen today to assess progress since admission. Pt states she is "not feeling so well today. Emotionally and physically." She states that she is feeling "weak" today, and admits to an episode of nausea last evening following her medications. Pt shares that she is feeling more "down" today and anxiety is higher. Pt does give a 'troubled' appearance, as she seems to be distracted but is not interested in discussing what's on her mind. Pt admits that she is still struggling with suicidal thoughts and would not be safe to be discharged. Pt denied any specific needs other than "patience with me, I think this is going to just take time." Pt does admit her medications seem to be helpful and she denies feeling any changes are necessary at this time. Pt declined to discuss anything further, stating she wished to be alone but would try to attend some groups this afternoon once she was feeling a bit better physically. Physical Exam Psychiatric Orientation: alert, oriented x 3 and + guarded (superficially cooperative, politely dismissive of conversation) Apperance: appropriately dressed, appropriately groomed and appeared stated age Eye Contact: + poor eye contact (seems to be avoiding direct eye contact, mostly staring at floor) Motor Behavior: steady gait and station and no abnormal motor movements Speech: normal rate/rhythm/volume of speech (brief responses to questions, dismissive of conversation) Affect: + depressed affect Mood: + depressed mood and + anxious mood Thought Process: goal directed thought process Thought Content: + paranoid, + delusions and + persecution Suicidal Thoughts: + reports suicidal thoughts admits she would not be safe for discharge Homicidal Thoughts: denies homicidal thoughts Hallucinations: no auditory hallucinations and no visual hallucinations Cognition: attention grossly intact and language grossly intact Estimated Intelligence: consistent with education level Insight: + fair insight Judgement: + fair judgement Vital Signs (Past 24 Hours) Last Vital Signs Temp 36.6 C 11/18/20 07:02 Pulse 76 11/18/20 07:02 Resp 16 11/18/20 07:02 BP 162/89 H 11/18/20 07:02 Pulse Ox 96 11/12/20 20:42 Results & Data ([facility]) Laboratory Results Laboratory Results - last 24 hr 11/17/20 11/17/20 11/17/20 12:22 16:30 20:35 POC Glucose 227 H 192 H 209 H 11/18/20 08:28 POC Glucose 187 H Current Inpatient Medications Current Inpatient Medications: Current Inpatient Medications Acetaminophen (Acetaminophen 325 Mg Tab) 650 mg PO Q4H PRN PRN Reason: Headache or Minor Fever Stop: 12/12/20 20:17 Al Hydrox/Mg Hydrox/Simethicone (Aluminum/Magnesium Susp 30 Ml Udc) 30 ml PO Q4H PRN PRN Reason: GI Upset Stop: 12/12/20 20:17 Aspirin (Aspirin 81 Mg Ectab) 81 mg PO DAILY ANNAMARIA Stop: 12/13/20 08:59 Last Admin: 11/18/20 09:42 Dose: 81 mg Documented by: Atorvastatin Calcium (Atorvastatin 40 Mg Tab) 40 mg PO HS ANNAMARIA Stop: 12/15/20 21:59 Last Admin: 11/17/20 20:41 Dose: 40 mg Documented by: Benztropine Mesylate (Benztropine Mesylate 1 Mg Tab) 1 mg PO HS ANNAMARIA Stop: 12/12/20 21:59 Last Admin: 11/17/20 20:40 Dose: 1 mg Documented by: Bismuth Subsalicylate (Bismuth Subsalicylate Liqd 236 Ml) 15 ml PO PRN PRN PRN Reason: Loose Stool Stop: 12/12/20 20:17 Cyanocobalamin (Cyanocobalamin 500 Mcg Tablet (Vitamin B-12)) 1,000 mcg PO DAILY ANNAMARIA Stop: 12/14/20 08:59 Last Admin: 11/18/20 09:45 Dose: 500 mcg Documented by: Dextrose (Dextrose 50% 50 Ml Syringe) 25 - 50 ml IV UD PRN; Protocol PRN Reason: Hypoglycemia Protocol Stop: 12/12/20 22:14 Ergocalciferol (Ergocalciferol 50,000 Units 1250 Mcg Cap) 50,000 units PO Fr@0900 ANNAMARIA Stop: 12/13/20 08:59 Last Admin: 11/13/20 11:12 Dose: 50,000 units Documented by: Fenofibrate (Fenofibrate Nanocrystallized 145 Mg Tablet) 145 mg PO QAM ANNAMARIA Stop: 12/13/20 10:59 Last Admin: 11/18/20 09:45 Dose: 145 mg Documented by: Ferrous Sulfate (Ferrous Sulfate 325 Mg Tab) 325 mg PO DAILY ANNAMARIA Stop: 12/13/20 08:59 Last Admin: 11/18/20 09:42 Dose: 325 mg Documented by: Glucagon (Glucagon For Inj 1 Mg Vial) 1 mg SQ UD PRN; Protocol PRN Reason: Hypoglycemia Protocol Stop: 12/12/20 22:14 Glucose (Glucose 40% Gel 15 Gm Tube) 15 - 30 gm PO UD PRN; Protocol PRN Reason: Hypoglycemia Protocol Stop: 12/12/20 22:14 Glucose (Glucose 10 Tabs/Tube) 4 - 8 tabs PO UD PRN; Protocol PRN Reason: Hypoglycemia Protocol Stop: 12/12/20 22:14 HCTZ/Losartan Potassium (Losartan/Hctz 50/12.5mg Tab) 1 tab PO DAILY [facility] Stop: 12/13/20 08:59 Last Admin: 11/18/20 10:03 Dose: Not Given Documented by: Hydrochlorothiazide (Hydrochlorothiazide 25 Mg Tab) 25 mg PO DAILY [facility] Stop: 12/13/20 08:59 Last Admin: 11/18/20 09:42 Dose: 25 mg Documented by: Hydroxyzine HCl (Hydroxyzine Hcl 25 Mg Tab) 50 mg PO HSZ PRN PRN Reason: Insomnia Stop: 12/12/20 20:17 Last Admin: 11/15/20 23:32 Dose: 50 mg Documented by: Hydroxyzine HCl (Hydroxyzine Hcl 25 Mg Tab) 25 mg PO Q4H PRN PRN Reason: Anxiety Stop: 12/12/20 20:17 Last Admin: 11/15/20 16:10 Dose: 25 mg Documented by: Hydroxyzine HCl (Hydroxyzine Hcl 25 Mg Tab) 25 mg PO TID [facility] Stop: 12/13/20 13:59 Last Admin: 11/18/20 09:45 Dose: 25 mg Documented by: Insulin Aspart (Insulin Aspart 100 Units/Ml 3 Ml Pen) 0 units SC ACHS ANNAMARIA Stop: 12/12/20 22:14 Last Admin: 11/18/20 09:48 Dose: 17 units Documented by: Insulin Glargine (Insulin Glargine Solostar 100 Units/Ml 3 Ml Pen) 85 units SC BID [facility]; Protocol Stop: 12/17/20 09:14 Last Admin: 11/18/20 09:44 Dose: 80 units Documented by: Lisinopril (Lisinopril 40 Mg Tab) 40 mg PO DAILY [facility] Stop: 12/13/20 08:59 Last Admin: 11/18/20 10:04 Dose: Not Given Documented by: Magnesium Hydroxide (Magnesium Hydroxide Susp 30 Ml Udc) 30 ml PO DAILY PRN PRN Reason: Constipation Stop: 12/12/20 20:17 Methimazole (Methimazole 5 Mg Tablet) 10 mg PO DAILY ANNAMARIA Stop: 12/13/20 08:59 Last Admin: 11/18/20 10:00 Dose: Not Given Documented by: Miscellaneous (Carbohydrates For Hypoglycemia ) 15 - 30 gm PO UD PRN PRN Reason: Hypoglycemia Treatment Stop: 12/12/20 22:14 Miscellaneous Information (Pharmacy Glycemic Mgmt Consult) 1 ea N/A UD PRN PRN Reason: Consult Stop: 12/12/20 21:41 Olanzapine (Olanzapine 10 Mg Tab) 30 mg PO HS ANNAMARIA Stop: 12/12/20 21:59 Last Admin: 11/17/20 20:41 Dose: 30 mg Documented by: Olanzapine (Olanzapine 5 Mg Tablet) 5 mg PO DAILY@1500 AN[facility]IA Stop: 12/13/20 14:59 Last Admin: 11/17/20 14:38 Dose: 5 mg Documented by: Prazosin HCl (Prazosin Hcl 1 Mg Cap) 1 mg PO HS ANNAMARIA Stop: 12/16/20 21:59 Last Admin: 11/17/20 20:41 Dose: 1 mg Documented by: Quetiapine Fumarate (Quetiapine Fumarate 25 Mg Tablet) 50 mg PO Q6 PRN PRN Reason: Anxiety/Agitation Stop: 12/15/20 11:59 Last Admin: 11/17/20 19:49 Dose: 50 mg Documented by: Quetiapine Fumarate (Quetiapine Fumarate 25 Mg Tablet) 50 mg PO BID@0900,1500 AN[facility]AR[facility] Stop: 12/17/20 15:29 Last Admin: 11/18/20 09:45 Dose: 50 mg Documented by: Sodium Chloride (Sodium Chloride 0.65% Na Soln 45 Ml ([place])) 1 - 2 sprays NA PRN PRN PRN Reason: Nasal Dryness/Congestion Stop: 12/12/20 20:17 Zolpidem Tartrate (Zolpidem Tartrate 5 Mg Tab) 5 mg PO HS PRN PRN Reason: Sleep Stop: 12/13/20 11:54 Last Admin: 11/16/20 21:16 Dose: 5 mg Documented by: Mental Health & Subst Abuse Tx Psychiatrist Name of Psychiatrist: Irma Guillen Psychiatrist's Date of Appointment with Psychiatrist: 12/10/20 Time of Appointment with Psychiatrist: 11 am Psychiatric Appointment Comment: [phone] Therapist Name of Therapist: Irma Stephen Therapist's Therapy Appointment Comment: Will Call to Schedule Appointment Respiratory Care Instructor Name of Respiratory Care Instructor: [facility] - Keli Martin Phone Number for Respiratory Care Instructor: [phone] Post Discharge Appointments Primary Care Physician Name Of Family Doctor: [facility] - Dr. Reece [facility] Date of Appointment with PCP: 12/15/20 Time of Appointment with PCP: 12:40 p.m. Provider Appointment Comment: Sheldon Barnett, [place] [address] Contact Information Discharge Discharge Address: [address] [place] [address], [place] [address]
[2020-11-18] MEDS: OLANZapine 5 MG TABLET PO SCH (14:31)
[2020-11-18] MEDS: PRAZOSIN HCL 1 MG CAP PO SCH (21:00)
[2020-11-18] MEDS: ZOLPIDEM TARTRATE 5 MG TAB PO PRN (21:00)
[2020-11-18] MEDS: BENZTROPINE MESYLATE 1 MG TAB PO SCH (21:00)
[2020-11-18] MEDS: ATORVASTATIN 40 MG TAB PO SCH (21:00)
[2020-11-18] MEDS: OLANZapine 10 MG TAB PO SCH (21:00)
[2020-11-19] MEDS: QUEtiapine FUMARATE 25 MG TABLET PO PRN (07:03)
--- NOTE | 2020-11-19 08:39 | Pharmacy Report ---
Pharmacy Glycemic Short Note 2 - Date of Service November 19, 2020 - Glycemic Short BSG Results (Last 24 hours): 11/18/20 11/18/20 11/18/20 12:22 17:04 20:30 POC Glucose 207 H 134 H 214 H 11/19/20 11/19/20 06:14 08:28 POC Glucose 129 H 205 H OUTPATIENT ANTIDIABETIC REGIMEN: * Levemir 100 units SQ BID * Liraglutide 1.8 mg SQ daily * Empagliflozin 10 mg PO daily * Glipizide 10 mg PO BID * Metformin ER 500 mg PO BID HbA1c = 8.8% on 10/26/20 ASSESSMENT: 11/19/20: * UG received 242 units of insulin yesterday * 165 units of basal and 77 units of prandial/correctional bolus insulin * BSGs of 187, 207, 134, and 214 mg/dL * Correction factor tightened to 6 yesterday with lunch - will continue * Fasting BSG this morning of 129 mg/dL 11/17/20: * Pt has received 238 units of insulin over the past 24hrs * 150 units of basal with Lantus * 88 units of bolus with NovoLog * BSGs [phone] mg/dl * AM fasting BSG is above goal range at 215 mg/dl. Will increase basal insulin by 10-15% and continue to titrate based on BSG trends. * Post-prandial BSGs are elevated after receiving only CHO coverage (i.e. when pre-meal BSG is at or near goal range). Will tighten CHO ratio and loosen CF since basal insulin is being increased. 11/13/20 * 55 y/o F admitted for Schizophrenia. Patient with history of type 2 diabetes managed at home on 5 different anti-diabetic meds including basal insulin. * Will hold oral agents and SQ Liraglutide for admission and utilize SQ basal bolus insulin regimen which is the recommended regimen for inpatient glycemic control. * During prior admission in December 2019, patient was requiring around 70 units of basal insulin BID. However, at the time she refused most of these doses and had to be switched to oral Metformin and Glipizide. * Will trial basal 50 units BID which is a 50% decrease from home dose and Novolog for bolus insulin coverage for meals and bedtime. * Patient did refuse her Lantus 50 unit dose last night which most likely caused high BSG this AM of 206 mg/dl. * Nurse told me pt slept in late, so the breakfast coverage and Lantus dose for this AM was given late in the morning today. * So, I asked the nurse to skip the lunch BSG check and only cover carbs if pt is eating lunch as well. PLAN FOR INPATIENT GLYCEMIC CONTROL: * Hold outpatient oral diabetes medications unless patient refuses basal insulin * Basal insulin -increase * Lantus 85 units SQ BID * Bolus insulin - continue * NovoLog per scale ACHS or Q6hrs while NPO * Goal Range: Low 110 mg/dL - High 140 mg/dL * Correction Factor: 6 mg/dL/unit * Nutritional / Prandial insulin per carb ratio of 1 unit per 2 grams CHO consumed PLAN FOR DISCHARGE: * HbA1c = 8.8% * Goal A1c is less than 7%. * A1c is not at goal but is lower now than it has been on previous admissions. * Doses of oral anti-diabetic meds could be adjusted up. However, would leave that to the outpatient provider. * As long as patient is not reporting hypoglycemia at home, would continue all of her home anti-diabetic meds on discharge and encourage compliance with t hem.
[2020-11-19] MEDS: INSULIN GLARGINE SOLOSTAR 100 UNITS/ML 3 ML PEN SC SCH ×2 (09:46→20:59)
[2020-11-19] MEDS: INSULIN ASPART 100 UNITS/ML 3 ML PEN SC SCH ×4 (09:46→20:56)
[2020-11-19] MEDS: ASPIRIN 81 MG ECTAB PO SCH (09:58)
[2020-11-19] MEDS: FERROUS SULFATE 325 MG TAB PO SCH (09:59)
[2020-11-19] MEDS: methIMAzole 5 MG TABLET PO SCH (09:59)
[2020-11-19] MEDS: hydroCHLOROthiazide 25 MG TAB PO SCH (09:59)
[2020-11-19] MEDS: QUEtiapine FUMARATE 25 MG TABLET PO SCH ×2 (09:59→14:35)
[2020-11-19] MEDS: hydrOXYzine HCl 25 MG TAB PO SCH ×3 (09:59→21:04)
[2020-11-19] MEDS: CYANOCOBALAMIN 500 MCG TABLET (VITAMIN B-12) PO SCH (10:00)
[2020-11-19] MEDS: FENOFIBRATE NANOCRYSTALLIZED 145 MG TABLET PO SCH (10:00)
[2020-11-19] MEDS: lisinopril 40 MG TAB PO SCH (10:01)
[2020-11-19] MEDS: LOSARTAN/HCTZ 50/12.5MG TAB PO SCH (10:11)
--- NOTE | 2020-11-19 10:33 | Psychiatric Progress Note ---
Date of Service November 19, 2020 Impression / Recommendations Impression 55-year-old woman with a known diagnosis of schizophrenia and a long history of multiple psychiatric hospitalizations who is admitted voluntarily with thoughts of killing herself, a belief that she is "unsafe" because unspecified others are trying to kill her, and worsening depression. She had not been sleeping well, and had recently been advised by her outpatient therapist that she can no longer call him between their weekly appointments, as she previously had been calling frequently. She has been started on an augmenting antipsychotic (quetiapine), as well as zolpidem and prazosin to target sleep. Although she notes some mild improvement, she continues to endorse severe depression, delusions, and suicidal thoughts, and is unable to contract for safety outside of the hospital, so inpatient treatment remains medically necessary. (1) Schizophrenia: 11/13 -[facility] and is being closely observed with [id number] checks every 15 minutes. She has been referred for individual, group, and recreational therapies. We also plan a family meeting with her mother, assuming the patient's willingness. -We will also continue her current outpatient medications, including olanzapine 5 mg daily (afternoons) and 30 mg at bedtime as her primary antipsychotic. -Although the patient has a past history of periodically having difficulty sharing a bedroom with a peer, she also has a history of doing much better when she is able to tolerate a roommate. Currently, our assessment is that the patient is able to tolerate a roommate, and this is meant to her advantage in the past because the patient likes to be able to use a roommate for purposes companionship, and also for purposes of reality testing 11/14--reviewed. continue current meds and tx plan. 11/15--patient is willing to take Seroquel prn for breakthrough symptoms. Appears less depressed but a bit tired today following prn Vistaril. Seroquel 25 mg po q6 hr prn. 11/16--increase prn Seroquel to 50 mg po q6 hr. delusions appear ego syntonic/mood congruent but declines additional depression tx. 11/17 -continue current medications and treatment plan, reviewed labs for monitoring on an atypical antipsychotic from 10/26/2020: FLP notable for triglycerides 1119, cholesterol 254 (both are chronically elevated for at least the past 3 years), and hemoglobin A1c elevated at 8.8% (estimated average glucose 206). Although atypical antipsychotics have a risk of metabolic syndrome, patient is aware of this risk, and believes the benefits currently outweigh the risks, as her untreated psychotic symptoms cause worsening mood and suicidality, as well as inability to function. 11/18 - Continue current medication regimen - patient admitting to benefits from addition of quetiapine twice daily. - Reports worsened mood today, feeling more "down". Seems to be rather troubled and distracted today, though states she is not interested in discussing any of these things at present - Continue to monitor mood and severity of delusional thinking 11/19 - Continue medication regimen - patient reports struggling with increased "paranoia" today, but states she has been utilizing coping strategies, reality testing, and positive affirmations. Has been a bit more interactive with peers, though not consistently so. - Continues to require inpatient psychiatric treatment and support (2) Suicidal ideations: 11/13 -The patient reports that she is continuing to experience thoughts of suicide and today says that she cannot commit to safety in the community. She does say that she has no plan to physically harm herself in the hospital, and agrees to notify staff if such thoughts present themselves. -We are continuing suicide precautions with close observation. -Group therapies will focus on helping the patient improve her individual coping strategies. 11/14--reviewed. 11/15--resolved. 11/17 -patient reports suicidal thoughts have improved since admission, but are still present. She feels safe in the hospital, but not outside. 11/18 - 11/19 - Ongoing SI unable to contract for safety outside of hospital. (3) Depression: 11/13 -Although the patient does have a history of recurrent episodes of depression, and although in the past she has carried diagnoses of schizoaffective disorder, but by far the most prominent set of symptoms in this case are the symptoms of schizophrenia, and depression is thought to be a separate and secondary diagnosis. -The patient, herself, feels that her depression and anxious distress are primarily related to poor sleep, and the fact that she has found that she is "terrified" of the nighta circumstance that often keeps her awake. Currently, we will offer the patient a trial of Ambien 5 mg at bedtime as needed for sleep. -Anxious distress is part of the patient's current mood. She reports that hydroxyzine ("Vistaril") helps, and says that she prefers a standing dose order of Vistaril 25 mg 3 times a day, with supplemental Vistaril dosages as needed. 11/14--reviewed. 11/15--Ambien remains effective. 11/18 - Continue as above - patient reports feeling "down" today, able to contract for safety on unit, but not outside of hospital. (4) Diabetes mellitus type 2, uncontrolled: 11/13 -Pharmacy diabetic consultation has been provided, and recommendations are being followed. The patient's blood glucose levels at admission are elevated, and several adjustments in her medication regimen have been necessary. 11/14--reviewed. Inventory Assets Strengths: Intelligent. Good support system. Insight into the need for her treatment. History of favorable response to medications and other forms of psychiatric treatment. Needs: Resolution of psychosis. Improved mood. Resolution of active suicidal ideations. Risk Factors Assessment Male: No : Yes Do You Have Access To A Gun?: No Health Problems: Yes Mental Health Diagnoses: Yes Substance Use Disorders: No Previous Attempt: Yes Previous Attempt; Highly Lethal: Yes Previous Attempt; Planned: Yes Previous Attempt; Didn't Tell Anyone: Yes Family History of Suicide: No Previous Psychiatric Hospitalization: Yes Hopelessness: No Smoker: No Protective Factors Assessment Rastafari Beliefs: No : No Responsible for Young Children: No Employed: No Stable Relationships: Yes Supportive Family: Yes Good Rapport with Provider: Yes Absence of Any Risk Factors Above: No Interval History Identifying Information 55 yo female with schizoaffective disorder, recurrent SI and IDDM admitt on 201 commitment, well known to 3S from previous hospitalizations. Chief Complaint "It's been a struggle today. 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 Sleep Information Total Hours of Sleep: 4.75 Sleep Comments: pt on q-15 minute checks Meal Information Percent Meal Consumed - Breakfast: 80 Percent Meal Consumed - Lunch: 60 Percent Meal Consumed - Dinner: 80 Subjective Subjective Patient was seen & assessed and interval progress reviewed with nursing and social work. Staff report the patient was rather isolative yesterday, feeling physically unwell per her reports. Pt was reported to have awoken ~0400 this morning and was unable to return to sleep. She was reportedly irritable and was yelling in her room, reporting frustration about how her life has turned out. Pt was seen today to assess progress since admission. She was resting on her bed and agreed to conversation. She states "It's been a struggle today. Dealing with more paranoia." Pt states her thoughts today are that "Rena just hates you and no one likes you and we all just want you to leave, go home." Pt states that she has been using "positive affirmation" to combat these thoughts and has been finding it helpful. We processed the numerous supports that the patient has as additional ways to combat this negative thinking pattern. Pt states that she still does not feel safe to leave the hospital, and has ongoing suicidal thinking. Pt states she is feeling better physically and is hoping to attend more groups today. She denies other needs or concerns today. Physical Exam Psychiatric Orientation: alert, oriented x 3 and cooperative Apperance: appropriately dressed, appropriately groomed and appeared stated age Eye Contact: good eye contact Motor Behavior: no abnormal motor movements (observed while laying in bed) Speech: normal rate/rhythm/volume of speech Affect: + depressed affect and mood congruent with affect Mood: + depressed mood Thought Process: goal directed thought process Thought Content: + paranoid and + delusions though practicing reality testing and feels this is helping Suicidal Thoughts: denies suicidal intent; + reports suicidal thoughts unable to contract for safety outside of hospital setting Hallucinations: no auditory hallucinations and no visual hallucinations Cognition: attention grossly intact and language grossly intact Insight: + fair insight Judgement: + fair judgement Vital Signs (Past 24 Hours) Last Vital Signs Temp 36.7 C 11/19/20 06:00 Pulse 76 11/19/20 06:00 Resp 18 11/19/20 06:00 BP 138/82 11/19/20 06:00 Pulse Ox 96 11/12/20 20:42 Results & Data ([facility]) Laboratory Results Laboratory Results - last 24 hr 11/18/20 11/18/20 11/18/20 12:22 17:04 20:30 POC Glucose 207 H 134 H 214 H 11/19/20 11/19/20 06:14 08:28 POC Glucose 129 H 205 H Current Inpatient Medications Current Inpatient Medications: Current Inpatient Medications Acetaminophen (Acetaminophen 325 Mg Tab) 650 mg PO Q4H PRN PRN Reason: Headache or Minor Fever Stop: 12/12/20 20:17 Al Hydrox/Mg Hydrox/Simethicone (Aluminum/Magnesium Susp 30 Ml Udc) 30 ml PO Q4H PRN PRN Reason: GI Upset Stop: 12/12/20 20:17 Aspirin (Aspirin 81 Mg Ectab) 81 mg PO DAILY ANNAMARIA Stop: 12/13/20 08:59 Last Admin: 11/19/20 09:58 Dose: 81 mg Documented by: Atorvastatin Calcium (Atorvastatin 40 Mg Tab) 40 mg PO HS ANNAMARIA Stop: 12/15/20 21:59 Last Admin: 11/18/20 21:00 Dose: 40 mg Documented by: Benztropine Mesylate (Benztropine Mesylate 1 Mg Tab) 1 mg PO HS ANNAMARIA Stop: 12/12/20 21:59 Last Admin: 11/18/20 21:00 Dose: 1 mg Documented by: Bismuth Subsalicylate (Bismuth Subsalicylate Liqd 236 Ml) 15 ml PO PRN PRN PRN Reason: Loose Stool Stop: 12/12/20 20:17 Cyanocobalamin (Cyanocobalamin 500 Mcg Tablet (Vitamin B-12)) 1,000 mcg PO DAILY ANNAMARIA Stop: 12/14/20 08:59 Last Admin: 11/19/20 10:00 Dose: 500 mcg Documented by: Dextrose (Dextrose 50% 50 Ml Syringe) 25 - 50 ml IV UD PRN; Protocol PRN Reason: Hypoglycemia Protocol Stop: 12/12/20 22:14 Ergocalciferol (Ergocalciferol 50,000 Units 1250 Mcg Cap) 50,000 units PO Fr@0900 ANNAMARIA Stop: 12/13/20 08:59 Last Admin: 11/13/20 11:12 Dose: 50,000 units Documented by: Fenofibrate (Fenofibrate Nanocrystallized 145 Mg Tablet) 145 mg PO QAM ANNAMARIA Stop: 12/13/20 10:59 Last Admin: 11/19/20 10:00 Dose: 145 mg Documented by: Ferrous Sulfate (Ferrous Sulfate 325 Mg Tab) 325 mg PO DAILY ANNAMARIA Stop: 12/13/20 08:59 Last Admin: 11/19/20 09:59 Dose: 325 mg Documented by: Glucagon (Glucagon For Inj 1 Mg Vial) 1 mg SQ UD PRN; Protocol PRN Reason: Hypoglycemia Protocol Stop: 12/12/20 22:14 Glucose (Glucose 40% Gel 15 Gm Tube) 15 - 30 gm PO UD PRN; Protocol PRN Reason: Hypoglycemia Protocol Stop: 12/12/20 22:14 Glucose (Glucose 10 Tabs/Tube) 4 - 8 tabs PO UD PRN; Protocol PRN Reason: Hypoglycemia Protocol Stop: 12/12/20 22:14 HCTZ/Losartan Potassium (Losartan/Hctz 50/12.5mg Tab) 1 tab PO DAILY [facility] Stop: 12/13/20 08:59 Last Admin: 11/19/20 10:11 Dose: Not Given Documented by: Hydrochlorothiazide (Hydrochlorothiazide 25 Mg Tab) 25 mg PO DAILY ANNAMARIA Stop: 12/13/20 08:59 Last Admin: 11/19/20 09:59 Dose: 25 mg Documented by: Hydroxyzine HCl (Hydroxyzine Hcl 25 Mg Tab) 50 mg PO HSZ PRN PRN Reason: Insomnia Stop: 12/12/20 20:17 Last Admin: 11/15/20 23:32 Dose: 50 mg Documented by: Hydroxyzine HCl (Hydroxyzine Hcl 25 Mg Tab) 25 mg PO Q4H PRN PRN Reason: Anxiety Stop: 12/12/20 20:17 Last Admin: 11/15/20 16:10 Dose: 25 mg Documented by: Hydroxyzine HCl (Hydroxyzine Hcl 25 Mg Tab) 25 mg PO TID [facility] Stop: 12/13/20 13:59 Last Admin: 11/19/20 09:59 Dose: 25 mg Documented by: Insulin Aspart (Insulin Aspart 100 Units/Ml 3 Ml Pen) 0 units SC ACHS [facility] Stop: 12/12/20 22:14 Last Admin: 11/19/20 09:46 Dose: 35 units Documented by: Insulin Glargine (Insulin Glargine Solostar 100 Units/Ml 3 Ml Pen) 85 units SC BID [facility]; Protocol Stop: 12/17/20 09:14 Last Admin: 11/19/20 09:46 Dose: 85 units Documented by: Lisinopril (Lisinopril 40 Mg Tab) 40 mg PO DAILY [facility] Stop: 12/13/20 08:59 Last Admin: 11/19/20 10:01 Dose: 40 mg Documented by: Magnesium Hydroxide (Magnesium Hydroxide Susp 30 Ml Udc) 30 ml PO DAILY PRN PRN Reason: Constipation Stop: 12/12/20 20:17 Methimazole (Methimazole 5 Mg Tablet) 10 mg PO DAILY ANNAMARIA Stop: 12/13/20 08:59 Last Admin: 11/19/20 09:59 Dose: 5 mg Documented by: Miscellaneous (Carbohydrates For Hypoglycemia ) 15 - 30 gm PO UD PRN PRN Reason: Hypoglycemia Treatment Stop: 12/12/20 22:14 Miscellaneous Information (Pharmacy Glycemic Mgmt Consult) 1 ea N/A UD PRN PRN Reason: Consult Stop: 12/12/20 21:41 Olanzapine (Olanzapine 10 Mg Tab) 30 mg PO HS ANNAMARIA Stop: 12/12/20 21:59 Last Admin: 11/18/20 21:00 Dose: 30 mg Documented by: Olanzapine (Olanzapine 5 Mg Tablet) 5 mg PO DAILY@1500 ANNAAMRIA Stop: 12/13/20 14:59 Last Admin: 11/18/20 14:31 Dose: 5 mg Documented by: Prazosin HCl (Prazosin Hcl 1 Mg Cap) 1 mg PO HS ANNAMARIA Stop: 12/16/20 21:59 Last Admin: 11/18/20 21:00 Dose: 1 mg Documented by: Quetiapine Fumarate (Quetiapine Fumarate 25 Mg Tablet) 50 mg PO Q6 PRN PRN Reason: Anxiety/Agitation Stop: 12/15/20 11:59 Last Admin: 11/19/20 07:03 Dose: 50 mg Documented by: Quetiapine Fumarate (Quetiapine Fumarate 25 Mg Tablet) 50 mg PO BID@0900,1500 ANNAMARIA Stop: 12/17/20 15:29 Last Admin: 11/19/20 09:59 Dose: 50 mg Documented by: Sodium Chloride (Sodium Chloride 0.65% Na Soln 45 Ml ([place])) 1 - 2 sprays NA PRN PRN PRN Reason: Nasal Dryness/Congestion Stop: 12/12/20 20:17 Zolpidem Tartrate (Zolpidem Tartrate 5 Mg Tab) 5 mg PO HS PRN PRN Reason: Sleep Stop: 12/13/20 11:54 Last Admin: 11/18/20 21:00 Dose: 5 mg Documented by: Mental Health & Subst Abuse Tx Psychiatrist Name of Psychiatrist: Irma Guillen Psychiatrist's Date of Appointment with Psychiatrist: 12/10/20 Time of Appointment with Psychiatrist: 11 am Psychiatric Appointment Comment: [phone] Therapist Name of Therapist: Irma Stephen Therapist's Therapy Appointment Comment: Will Call to Schedule Appointment Production Department Supervisor Name of Production Department Supervisor: [facility] - Keli Martin Phone Number for Production Department Supervisor: [phone] Post Discharge Appointments Primary Care Physician Name Of Family Doctor: [facility] - Dr. Re[facility] Date of Appointment with PCP: 12/15/20 Time of Appointment with PCP: 12:40 p.m. Provider Appointment Comment: [address], [place] [address] Contact Information Discharge Discharge Address: [address] [place] [id number]
[2020-11-19] MEDS: hydrOXYzine HCl 25 MG TAB PO PRN (11:17)
[2020-11-19] MEDS: OLANZapine 5 MG TABLET PO SCH (14:35)
[2020-11-19] MEDS: ZOLPIDEM TARTRATE 5 MG TAB PO PRN (21:03)
[2020-11-19] MEDS: OLANZapine 10 MG TAB PO SCH (21:03)
[2020-11-19] MEDS: BENZTROPINE MESYLATE 1 MG TAB PO SCH (21:03)
[2020-11-19] MEDS: ATORVASTATIN 40 MG TAB PO SCH (21:03)
[2020-11-19] MEDS: PRAZOSIN HCL 1 MG CAP PO SCH (21:04)
[2020-11-20] MEDS: LOSARTAN/HCTZ 50/12.5MG TAB PO SCH (08:55)
[2020-11-20] MEDS: QUEtiapine FUMARATE 25 MG TABLET PO SCH ×2 (08:56→14:05)
[2020-11-20] MEDS: hydroCHLOROthiazide 25 MG TAB PO SCH ×2 (08:56→21:22)
[2020-11-20] MEDS: ERGOCALCIFEROL 50,000 UNITS 1250 MCG CAP PO SCH (08:56)
[2020-11-20] MEDS: methIMAzole 5 MG TABLET PO SCH (08:56)
[2020-11-20] MEDS: ASPIRIN 81 MG ECTAB PO SCH (08:56)
[2020-11-20] MEDS: lisinopril 40 MG TAB PO SCH (08:56)
[2020-11-20] MEDS: hydrOXYzine HCl 25 MG TAB PO SCH ×3 (08:57→21:38)
[2020-11-20] MEDS: FERROUS SULFATE 325 MG TAB PO SCH (08:58)
[2020-11-20] MEDS: FENOFIBRATE NANOCRYSTALLIZED 145 MG TABLET PO SCH (09:05)
[2020-11-20] MEDS: CYANOCOBALAMIN 500 MCG TABLET (VITAMIN B-12) PO SCH (09:05)
--- NOTE | 2020-11-20 09:37 | Psychiatric Progress Note ---
Date of Service November 20, 2020 Impression / Recommendations Impression 55-year-old woman with a known diagnosis of schizophrenia and a long history of multiple psychiatric hospitalizations who is admitted voluntarily with thoughts of killing herself, a belief that she is "unsafe" because unspecified others are trying to kill her, and worsening depression. She had not been sleeping well, and had recently been advised by her outpatient therapist that she can no longer call him between their weekly appointments, as she previously had been calling frequently. She has been started on an augmenting antipsychotic (quetiapine), as well as zolpidem and prazosin to target sleep. Although she notes some mild improvement, she continues to endorse severe depression, delusions, and suicidal thoughts, and is unable to contract for safety outside of the hospital, so inpatient treatment remains medically necessary. (1) Schizophrenia: 11/13 -The patient has been admitted to the [facility] inpatient psychiatric unit and is being closely observed with [id number] checks every 15 minutes. She has been referred for individual, group, and recreational therapies. We also plan a family meeting with her mother, assuming the patient's willingness. -We will also continue her current outpatient medications, including olanzapine 5 mg daily (afternoons) and 30 mg at bedtime as her primary antipsychotic. -Although the patient has a past history of periodically having difficulty sharing a bedroom with a peer, she also has a history of doing much better when she is able to tolerate a roommate. Currently, our assessment is that the patient is able to tolerate a roommate, and this is meant to her advantage in the past because the patient likes to be able to use a roommate for purposes companionship, and also for purposes of reality testing 11/14--reviewed. continue current meds and tx plan. 11/15--patient is willing to take Seroquel prn for breakthrough symptoms. Appears less depressed but a bit tired today following prn Vistaril. Seroquel 25 mg po q6 hr prn. 11/16--increase prn Seroquel to 50 mg po q6 hr. delusions appear ego syntonic/mood congruent but declines additional depression tx. 11/17 -continue current medications and treatment plan, reviewed labs for monitoring on an atypical antipsychotic from 10/26/2020: FLP notable for triglycerides 1119, cholesterol 254 (both are chronically elevated for at least the past 3 years), and hemoglobin A1c elevated at 8.8% (estimated average glucose 206). Although atypical antipsychotics have a risk of metabolic syndrome, patient is aware of this risk, and believes the benefits currently outweigh the risks, as her untreated psychotic symptoms cause worsening mood and suicidality, as well as inability to function. 11/18 - Continue current medication regimen - patient admitting to benefits from addition of quetiapine twice daily. - Reports worsened mood today, feeling more "down". Seems to be rather troubled and distracted today, though states she is not interested in discussing any of these things at present - Continue to monitor mood and severity of delusional thinking 11/19 - Continue medication regimen - patient reports struggling with increased "paranoia" today, but states she has been utilizing coping strategies, reality testing, and positive affirmations. Has been a bit more interactive with peers, though not consistently so. - Continues to require inpatient psychiatric treatment and support 11/20 - Continue current medication regimen - patient reminded of prn quetiapine availability - Ongoing paranoia/delusions - patient has been focusing on using coping skills. Encouraged to utilize group programming as a distraction from these thoughts. Continue efforts to assist with reality orientation. - Pt continues to be unable to tolerate the stress of community re-entry (2) Suicidal ideations: 11/13 -The patient reports that she is continuing to experience thoughts of suicide and today says that she cannot commit to safety in the community. She does say that she has no plan to physically harm herself in the hospital, and agrees to notify staff if such thoughts present themselves. -We are continuing suicide precautions with close observation. -Group therapies will focus on helping the patient improve her individual coping strategies. 11/14--reviewed. 11/15--resolved. 11/17 -patient reports suicidal thoughts have improved since admission, but are still present. She feels safe in the hospital, but not outside. 11/18 - 11/20 - Ongoing SI unable to contract for safety outside of hospital. (3) Depression: 11/13 -Although the patient does have a history of recurrent episodes of depression, and although in the past she has carried diagnoses of schizoaffective disorder, but by far the most prominent set of symptoms in this case are the symptoms of schizophrenia, and depression is thought to be a separate and secondary diagnosis. -The patient, herself, feels that her depression and anxious distress are primarily related to poor sleep, and the fact that she has found that she is "terrified" of the nighta circumstance that often keeps her awake. Currently, we will offer the patient a trial of Ambien 5 mg at bedtime as needed for sleep. -Anxious distress is part of the patient's current mood. She reports that hydroxyzine ("Vistaril") helps, and says that she prefers a standing dose order of Vistaril 25 mg 3 times a day, with supplemental Vistaril dosages as needed. 11/14--reviewed. 11/15--Ambien remains effective. 11/18 - Continue as above - patient reports feeling "down" today, able to contract for safety on unit, but not outside of hospital. 11/20 - Reports ongoing depressed mood, utilizing coping skills - ongoing SI, though reported to be less severe - Unable to contract for safety outside of the hospital setting (4) Diabetes mellitus type 2, uncontrolled: 11/13 -Pharmacy diabetic consultation has been provided, and recommendations are being followed. The patient's blood glucose levels at admission are elevated, and several adjustments in her medication regimen have been necessary. 11/14--reviewed. Inventory Assets Strengths: Intelligent. Good support system. Insight into the need for her treatment. History of favorable response to medications and other forms of psychiatric treatment. Needs: Resolution of psychosis. Improved mood. Resolution of active suicidal ideations. Risk Factors Assessment Male: No : Yes Do You Have Access To A Gun?: No Health Problems: Yes Mental Health Diagnoses: Yes Substance Use Disorders: No Previous Attempt: Yes Previous Attempt; Highly Lethal: Yes Previous Attempt; Planned: Yes Previous Attempt; Didn't Tell Anyone: Yes Family History of Suicide: No Previous Psychiatric Hospitalization: Yes Hopelessness: No Smoker: No Protective Factors Assessment Church Beliefs: No : No Responsible for Young Children: No Employed: No Stable Relationships: Yes Supportive Family: Yes Good Rapport with Provider: Yes Absence of Any Risk Factors Above: No Interval History Identifying Information 55 yo female with schizoaffective disorder, recurrent SI and IDDM admitt on 201 commitment, well known to 3S from previous hospitalizations. Chief Complaint "Um, better, I would say." Review of Systems Notes Constitutional: denied Cardiovascular: denied Respiratory: denied Gastrointestinal: denied Neurological: denied Psychiatric: denies symptoms other than stated above Total of at least 10 systems reviewed, pertinent positives as above and in HPI. Sleep Information Total Hours of Sleep: 7.5 Sleep Comments: pt on q-15 minute checks Meal Information Percent Meal Consumed - Breakfast: 100 Percent Meal Consumed - Lunch: 100 Percent Meal Consumed - Dinner: 100 Subjective Subjective Patient was seen & assessed and interval progress reviewed with treatment team. Staff report the patient seemed to have a difficult day yesterday. Pt was isolative for most of the morning, and reported ongoing paranoia and delusions. She reportedly had a loud crying spell in the hallway, which staff attended to but patient requested to be left alone. She shared during group therapy that she thought people were mad at her and that she should leave the country. Pt was seen today to assess progress since admission. Pt states she is feeling "better, I would say" today. Pt admits to ongoing paranoia and delusions, but does feel they are more manageable this morning compared to yesterday. Pt admits to SI, but also states this is more manageable. Patient's focus at this time is on depressed mood and feelings of worthlessness. She reports she is "depressed because I'm sick, depressed because I'm broke, depressed because I'm not home." Pt was asked what normally helps when her mind is focused on these things. She states "being around people and distracting myself" is often helpful. Pt was encouraged to use groups today as a chance to do just that, even if she does not feel up to significant contributions it would at least provide a distraction. Pt denied other needs or concerns today. She felt treatment team's estimated length of stay was reasonable, and continues to state "I just need a little bit of time." Physical Exam Psychiatric Orientation: alert, oriented x 3 and cooperative Apperance: appropriately dressed, appropriately groomed and appeared stated age Eye Contact: + fair eye contact Motor Behavior: no abnormal motor movements (observed while sitting upright on edge of bed) Speech: normal rate/rhythm/volume of speech Affect: + depressed affect Mood: + depressed mood Thought Process: goal directed thought process Thought Content: + paranoid, + delusions and + persecution Suicidal Thoughts: + reports suicidal thoughts (ongoing, but admittedly less severe) Homicidal Thoughts: denies homicidal thoughts Hallucinations: no visual hallucinations admits to voices/thoughts telling her "kill yourself" or "you don't deserve to live" - but states she has been able to distract herself from them today Cognition: attention grossly intact and language grossly intact Estimated Intelligence: consistent with education level Insight: + fair insight Judgement: + fair judgement Vital Signs (Past 24 Hours) Last Vital Signs Temp 36.3 C L 11/20/20 06:00 Pulse 71 11/20/20 06:42 Resp 18 11/20/20 06:00 BP 109/74 11/20/20 06:42 Pulse Ox 96 11/12/20 20:42 Results & Data ([facility]) Laboratory Results Laboratory Results - last 24 hr 11/19/20 11/19/20 11/19/20 12:35 16:58 20:09 POC Glucose 191 H 152 H 176 H 11/20/20 08:16 POC Glucose 136 H Current Inpatient Medications Current Inpatient Medications: Current Inpatient Medications Acetaminophen (Acetaminophen 325 Mg Tab) 650 mg PO Q4H PRN PRN Reason: Headache or Minor Fever Stop: 12/12/20 20:17 Al Hydrox/Mg Hydrox/Simethicone (Aluminum/Magnesium Susp 30 Ml Udc) 30 ml PO Q4H PRN PRN Reason: GI Upset Stop: 12/12/20 20:17 Aspirin (Aspirin 81 Mg Ectab) 81 mg PO DAILY ANNAMARIA Stop: 12/13/20 08:59 Last Admin: 11/20/20 08:56 Dose: 81 mg Documented by: Atorvastatin Calcium (Atorvastatin 40 Mg Tab) 40 mg PO HS ANNAMARIA Stop: 12/15/20 21:59 Last Admin: 11/19/20 21:03 Dose: 40 mg Documented by: Benztropine Mesylate (Benztropine Mesylate 1 Mg Tab) 1 mg PO HS ANNAMARIA Stop: 12/12/20 21:59 Last Admin: 11/19/20 21:03 Dose: 1 mg Documented by: Bismuth Subsalicylate (Bismuth Subsalicylate Liqd 236 Ml) 15 ml PO PRN PRN PRN Reason: Loose Stool Stop: 12/12/20 20:17 Cyanocobalamin (Cyanocobalamin 500 Mcg Tablet (Vitamin B-12)) 1,000 mcg PO DAILY ANNAMARIA Stop: 12/14/20 08:59 Last Admin: 11/20/20 09:05 Dose: 500 mcg Documented by: Dextrose (Dextrose 50% 50 Ml Syringe) 25 - 50 ml IV UD PRN; Protocol PRN Reason: Hypoglycemia Protocol Stop: 12/12/20 22:14 Ergocalciferol (Ergocalciferol 50,000 Units 1250 Mcg Cap) 50,000 units PO Fr@0900 ANNAMARIA Stop: 12/13/20 08:59 Last Admin: 11/20/20 08:56 Dose: 50,000 units Documented by: Fenofibrate (Fenofibrate Nanocrystallized 145 Mg Tablet) 145 mg PO QAM ANNAMARIA Stop: 12/13/20 10:59 Last Admin: 11/20/20 09:05 Dose: Not Given Documented by: Ferrous Sulfate (Ferrous Sulfate 325 Mg Tab) 325 mg PO DAILY ANNAMARIA Stop: 12/13/20 08:59 Last Admin: 11/20/20 08:58 Dose: 325 mg Documented by: Glucagon (Glucagon For Inj 1 Mg Vial) 1 mg SQ UD PRN; Protocol PRN Reason: Hypoglycemia Protocol Stop: 12/12/20 22:14 Glucose (Glucose 40% Gel 15 Gm Tube) 15 - 30 gm PO UD PRN; Protocol PRN Reason: Hypoglycemia Protocol Stop: 12/12/20 22:14 Glucose (Glucose 10 Tabs/Tube) 4 - 8 tabs PO UD PRN; Protocol PRN Reason: Hypoglycemia Protocol Stop: 12/12/20 22:14 HCTZ/Losartan Potassium (Losartan/Hctz 50/12.5mg Tab) 1 tab PO DAILY ANNAMARIA Stop: 12/13/20 08:59 Last Admin: 11/20/20 08:55 Dose: 1 tab Documented by: Hydrochlorothiazide (Hydrochlorothiazide 25 Mg Tab) 25 mg PO DAILY ANNAMARIA Stop: 12/13/20 08:59 Last Admin: 11/20/20 08:56 Dose: 25 mg Documented by: Hydroxyzine HCl (Hydroxyzine Hcl 25 Mg Tab) 50 mg PO HSZ PRN PRN Reason: Insomnia Stop: 12/12/20 20:17 Last Admin: 11/15/20 23:32 Dose: 50 mg Documented by: Hydroxyzine HCl (Hydroxyzine Hcl 25 Mg Tab) 25 mg PO Q4H PRN PRN Reason: Anxiety Stop: 12/12/20 20:17 Last Admin: 11/19/20 11:17 Dose: 25 mg Documented by: Hydroxyzine HCl (Hydroxyzine Hcl 25 Mg Tab) 25 mg PO TID [facility] Stop: 12/13/20 13:59 Last Admin: 11/20/20 08:57 Dose: 25 mg Documented by: Insulin Aspart (Insulin Aspart 100 Units/Ml 3 Ml Pen) 0 units SC ACHS [facility] Stop: 12/12/20 22:14 Last Admin: 11/19/20 20:56 Dose: 21 units Documented by: Insulin Glargine (Insulin Glargine Solostar 100 Units/Ml 3 Ml Pen) 85 units SC BID [facility]; Protocol Stop: 12/17/20 09:14 Last Admin: 11/19/20 20:59 Dose: 85 units Documented by: Lisinopril (Lisinopril 40 Mg Tab) 40 mg PO DAILY [facility] Stop: 12/13/20 08:59 Last Admin: 11/20/20 08:56 Dose: 40 mg Documented by: Magnesium Hydroxide (Magnesium Hydroxide Susp 30 Ml Udc) 30 ml PO DAILY PRN PRN Reason: Constipation Stop: 12/12/20 20:17 Methimazole (Methimazole 5 Mg Tablet) 10 mg PO DAILY [facility] Stop: 12/13/20 08:59 Last Admin: 11/20/20 08:56 Dose: 5 mg Documented by: Miscellaneous (Carbohydrates For Hypoglycemia ) 15 - 30 gm PO UD PRN PRN Reason: Hypoglycemia Treatment Stop: 12/12/20 22:14 Miscellaneous Information (Pharmacy Glycemic Mgmt Consult) 1 ea N/A UD PRN PRN Reason: Consult Stop: 12/12/20 21:41 Olanzapine (Olanzapine 10 Mg Tab) 30 mg PO [facility] Stop: 12/12/20 21:59 Last Admin: 11/19/20 21:03 Dose: 30 mg Documented by: Olanzapine (Olanzapine 5 Mg Tablet) 5 mg PO DAILY@1500 [facility] Stop: 12/13/20 14:59 Last Admin: 11/19/20 14:35 Dose: 5 mg Documented by: Prazosin HCl (Prazosin Hcl 1 Mg Cap) 1 mg PO HS [facility] Stop: 12/16/20 21:59 Last Admin: 11/19/20 21:04 Dose: 1 mg Documented by: Quetiapine Fumarate (Quetiapine Fumarate 25 Mg Tablet) 50 mg PO Q6 PRN PRN Reason: Anxiety/Agitation Stop: 12/15/20 11:59 Last Admin: 11/19/20 07:03 Dose: 50 mg Documented by: Quetiapine Fumarate (Quetiapine Fumarate 25 Mg Tablet) 50 mg PO BID@0900,1500 ANNAMARIA Stop: 12/17/20 15:29 Last Admin: 11/20/20 08:56 Dose: 50 mg Documented by: Sodium Chloride (Sodium Chloride 0.65% Na Soln 45 Ml ([place])) 1 - 2 sprays NA PRN PRN PRN Reason: Nasal Dryness/Congestion Stop: 12/12/20 20:17 Zolpidem Tartrate (Zolpidem Tartrate 5 Mg Tab) 5 mg PO HS PRN PRN Reason: Sleep Stop: 12/13/20 11:54 Last Admin: 11/19/20 21:03 Dose: 5 mg Documented by: Mental Health & Subst Abuse Tx Psychiatrist Name of Psychiatrist: Irma Guillen Psychiatrist's Date of Appointment with Psychiatrist: 12/10/20 Time of Appointment with Psychiatrist: 11 am Psychiatric Appointment Comment: [phone] Therapist Name of Therapist: Irma Stephen Therapist's Therapy Appointment Comment: Will Call to Schedule Appointment Ekg Monitor Tech Name of Ekg Monitor Tech: [employer] [facility] - Keli Martin Phone Number for Ekg Monitor Tech: [phone] Post Discharge Appointments Primary Care Physician Name Of Family Doctor: [facility] - Dr. Reece [facility] Date of Appointment with PCP: 12/15/20 Time of Appointment with PCP: 12:40 p.m. Provider Appointment Comment: Sheldon Barnett, [place] [address] Contact Information Discharge Discharge Address: [address] [place] [id number]
[2020-11-20] MEDS: INSULIN ASPART 100 UNITS/ML 3 ML PEN SC SCH ×4 (09:41→21:25)
[2020-11-20] MEDS: INSULIN GLARGINE SOLOSTAR 100 UNITS/ML 3 ML PEN SC SCH ×2 (09:41→21:23)
[2020-11-20] MEDS: OLANZapine 5 MG TABLET PO SCH (14:09)
[2020-11-20] MEDS: OLANZapine 10 MG TAB PO SCH (21:22)
[2020-11-20] MEDS: PRAZOSIN HCL 1 MG CAP PO SCH (21:22)
[2020-11-20] MEDS: ZOLPIDEM TARTRATE 5 MG TAB PO SCH (21:22)
[2020-11-20] MEDS: ATORVASTATIN 40 MG TAB PO SCH (21:22)
[2020-11-20] MEDS: BENZTROPINE MESYLATE 1 MG TAB PO SCH (21:22)
[2020-11-21] MEDS: ASPIRIN 81 MG ECTAB PO SCH (08:58)
[2020-11-21] MEDS: hydrOXYzine HCl 25 MG TAB PO SCH ×3 (08:59→21:27)
[2020-11-21] MEDS: CYANOCOBALAMIN 500 MCG TABLET (VITAMIN B-12) PO SCH (08:59)
[2020-11-21] MEDS: FENOFIBRATE NANOCRYSTALLIZED 145 MG TABLET PO SCH (08:59)
[2020-11-21] MEDS: LOSARTAN/HCTZ 50/12.5MG TAB PO SCH (08:59)
[2020-11-21] MEDS: methIMAzole 5 MG TABLET PO SCH (08:59)
[2020-11-21] MEDS: QUEtiapine FUMARATE 25 MG TABLET PO SCH ×2 (08:59→14:30)
[2020-11-21] MEDS: FERROUS SULFATE 325 MG TAB PO SCH (09:00)
[2020-11-21] MEDS: lisinopril 40 MG TAB PO SCH (09:00)
[2020-11-21] MEDS ORDERED: INSULIN GLARGINE 100 UNIT/ML VIAL SC SCH ×2 (09:05→22:00)
[2020-11-21] MEDS: hydroCHLOROthiazide 25 MG TAB PO SCH (09:06)
[2020-11-21] MEDS: INSULIN ASPART 100 UNITS/ML 3 ML PEN SC SCH ×3 (09:30→17:38)
--- NOTE | 2020-11-21 10:25 | Pharmacy Report ---
Pharmacy Glycemic Short Note 2 - Date of Service November 21, 2020 - Glycemic Short BSG Results (Last 24 hours): 11/20/20 11/20/20 11/20/20 12:42 17:13 21:18 POC Glucose 160 H 205 H 285 H 11/21/20 08:37 POC Glucose 156 H OUTPATIENT ANTIDIABETIC REGIMEN: * Levemir 100 units SQ BID * Liraglutide 1.8 mg SQ daily * Empagliflozin 10 mg PO daily * Glipizide 10 mg PO BID * Metformin ER 500 mg PO BID HbA1c = 8.8% on 10/26/20 ASSESSMENT: 11/21: * Pt has received 320 units of insulin over the past 24hrs * 170 units of basal with Lantus * 150 units of bolus with NovoLog * BSGs [phone] mg/dl * AM fasting BSG slightly elevated at 156mg/dl - will increase PM dose of Lantus slightly * Post-prandial BSGs elevated at dinner and HS. Will tighten CR 11/19/20: * UG received 242 units of insulin yesterday * 165 units of basal and 77 units of prandial/correctional bolus insulin * BSGs of 187, 207, 134, and 214 mg/dL * Correction factor tightened to 6 yesterday with lunch - will continue * Fasting BSG this morning of 129 mg/dL 11/17/20: * Pt has received 238 units of insulin over the past 24hrs * 150 units of basal with Lantus * 88 units of bolus with NovoLog * BSGs [phone] mg/dl * AM fasting BSG is above goal range at 215 mg/dl. Will increase basal insulin by 10-15% and continue to titrate based on BSG trends. * Post-prandial BSGs are elevated after receiving only CHO coverage (i.e. when pre-meal BSG is at or near goal range). Will tighten CHO ratio and loosen CF since basal insulin is being increased. 11/13/20 * 55 y/o F admitted for Schizophrenia. Patient with history of type 2 diabetes managed at home on 5 different anti-diabetic meds including basal insulin. * Will hold oral agents and SQ Liraglutide for admission and utilize SQ basal bolus insulin regimen which is the recommended regimen for inpatient glycemic control. * During prior admission in December 2019, patient was requiring around 70 units of basal insulin BID. However, at the time she refused most of these doses and had to be switched to oral Metformin and Glipizide. * Will trial basal 50 units BID which is a 50% decrease from home dose and Novolog for bolus insulin coverage for meals and bedtime. * Patient did refuse her Lantus 50 unit dose last night which most likely caused high BSG this AM of 206 mg/dl. * Nurse told me pt slept in late, so the breakfast coverage and Lantus dose for this AM was given late in the morning today. * So, I asked the nurse to skip the lunch BSG check and only cover carbs if pt is eating lunch as well. PLAN FOR INPATIENT GLYCEMIC CONTROL: * Hold outpatient oral diabetes medications unless patient refuses basal insulin * Basal insulin -increase * Lantus 85 units SQ AM + 90 units SQ PM * Bolus insulin - tighten CR from 2 to 1.5 * NovoLog per scale ACHS or Q6hrs while NPO * Goal Range: Low 110 mg/dL - High 140 mg/dL * Correction Factor: 6 mg/dL/unit * Nutritional / Prandial insulin per carb ratio of 1 unit per 1.5 grams CHO consumed PLAN FOR DISCHARGE: * HbA1c = 8.8% * Goal A1c is less than 7%. * A1c is not at goal but is lower now than it has been on previous admissions. * Doses of oral anti-diabetic meds could be adjusted up. However, would leave that to the outpatient provider. * As long as patient is not reporting hypoglycemia at home, would continue all of her home anti-diabetic meds on discharge and encourage compliance with them.
[2020-11-21] MEDS: hydrOXYzine HCl 25 MG TAB PO PRN (10:47)
[2020-11-21 12:12] LABS: T4 Free Thyroxine 1.06 ng/dl (0.8-1.6); Thyroid Stimulating Hormone 0.31 uIu/ml (0.300-4.500)
[2020-11-21] MEDS: OLANZapine 5 MG TABLET PO SCH (14:30)
--- NOTE | 2020-11-21 15:14 | Psychiatric Progress Note ---
Date of Service November 21, 2020 Impression / Recommendations Impression 55-year-old woman with a known diagnosis of schizophrenia and a long history of multiple psychiatric hospitalizations who is admitted voluntarily with thoughts of killing herself, a belief that she is "unsafe" because unspecified others are trying to kill her, and worsening depression. She had not been sleeping well, and had recently been advised by her outpatient therapist that she can no longer call him between their weekly appointments, as she previously had been calling frequently. She has been started on an augmenting antipsychotic (quetiapine), as well as zolpidem and prazosin to target sleep. Although she notes some mild improvement, she continues to endorse severe depression, delusions, and suicidal thoughts, and is unable to contract for safety outside of the hospital, so inpatient treatment remains medically necessary. (1) Schizophrenia: 11/13 -The patient has been admitted to the [facility] inpatient psychiatric unit and is being closely observed with [id number] checks every 15 minutes. She has been referred for individual, group, and recreational therapies. We also plan a family meeting with her mother, assuming the patient's willingness. -We will also continue her current outpatient medications, including olanzapine 5 mg daily (afternoons) and 30 mg at bedtime as her primary antipsychotic. -Although the patient has a past history of periodically having difficulty sharing a bedroom with a peer, she also has a history of doing much better when she is able to tolerate a roommate. Currently, our assessment is that the patient is able to tolerate a roommate, and this is meant to her advantage in the past because the patient likes to be able to use a roommate for purposes companionship, and also for purposes of reality testing 11/14--reviewed. continue current meds and tx plan. 11/15--patient is willing to take Seroquel prn for breakthrough symptoms. Appears less depressed but a bit tired today following prn Vistaril. Seroquel 25 mg po q6 hr prn. 11/16--increase prn Seroquel to 50 mg po q6 hr. delusions appear ego syntonic/mood congruent but declines additional depression tx. 11/17 -continue current medications and treatment plan, reviewed labs for monitoring on an atypical antipsychotic from 10/26/2020: FLP notable for triglycerides 1119, cholesterol 254 (both are chronically elevated for at least the past 3 years), and hemoglobin A1c elevated at 8.8% (estimated average glucose 206). Although atypical antipsychotics have a risk of metabolic syndrome, patient is aware of this risk, and believes the benefits currently outweigh the risks, as her untreated psychotic symptoms cause worsening mood and suicidality, as well as inability to function. 11/18 - Continue current medication regimen - patient admitting to benefits from addition of quetiapine twice daily. - Reports worsened mood today, feeling more "down". Seems to be rather troubled and distracted today, though states she is not interested in discussing any of these things at present - Continue to monitor mood and severity of delusional thinking 11/19 - Continue medication regimen - patient reports struggling with increased "paranoia" today, but states she has been utilizing coping strategies, reality testing, and positive affirmations. Has been a bit more interactive with peers, though not consistently so. - Continues to require inpatient psychiatric treatment and support 11/20 - Continue current medication regimen - patient reminded of prn quetiapine availability - Ongoing paranoia/delusions - patient has been focusing on using coping skills. Encouraged to utilize group programming as a distraction from these thoughts. Continue efforts to assist with reality orientation. - Pt continues to be unable to tolerate the stress of community re-entry 11/21 -Remains variably delusionally preoccupied and seems to have longstanding illogically based thoughts and opinions about medication regimen with a tendency to prefer certain medicines over others without clear basis (2) Suicidal ideations: 11/13 -The patient reports that she is continuing to experience thoughts of suicide and today says that she cannot commit to safety in the community. She does say that she has no plan to physically harm herself in the hospital, and agrees to notify staff if such thoughts present themselves. -We are continuing suicide precautions with close observation. -Group therapies will focus on helping the patient improve her individual coping strategies. 11/14--reviewed. 11/15--resolved. 11/17 -patient reports suicidal thoughts have improved since admission, but are still present. She feels safe in the hospital, but not outside. 11/18 - 11/20 - Ongoing SI unable to contract for safety outside of hospital. (3) Depression: 11/13 -Although the patient does have a history of recurrent episodes of depression, a nd although in the past she has carried diagnoses of schizoaffective disorder, but by far the most prominent set of symptoms in this case are the symptoms of schizophrenia, and depression is thought to be a separate and secondary diagnosis. -The patient, herself, feels that her depression and anxious distress are primarily related to poor sleep, and the fact that she has found that she is "terrified" of the nighta circumstance that often keeps her awake. Currently, we will offer the patient a trial of Ambien 5 mg at bedtime as needed for sleep. -Anxious distress is part of the patient's current mood. She reports that hydroxyzine ("Vistaril") helps, and says that she prefers a standing dose order of Vistaril 25 mg 3 times a day, with supplemental Vistaril dosages as needed. 11/14--reviewed. 11/15--Ambien remains effective. 11/18 - Continue as above - patient reports feeling "down" today, able to contract for safety on unit, but not outside of hospital. 11/20 - Reports ongoing depressed mood, utilizing coping skills - ongoing SI, though reported to be less severe - Unable to contract for safety outside of the hospital setting 11/21 -Discussed consideration for sedating antidepressant briefly with patient today however she declined to consider this intervention today indicating lack of need however, high-dose trazodone with smaller doses during the day might be helpful on multiple fronts for mood elevation, anxiety, sleep, and potentially could substitute for the Seroquel and avoid the antipsychotic polypharmacy. We will readdress again tomorrow. (4) Diabetes mellitus type 2, uncontrolled: 11/13 -Pharmacy diabetic consultation has been provided, and recommendations are being followed. The patient's blood glucose levels at admission are elevated, and several adjustments in her medication regimen have been necessary. 11/14--reviewed. 11/21 -Appreciate diabetic pharmacy follow-up and recommendations for blood sugars to remain inadequately controlled Inventory Assets Strengths: Intelligent. Good support system. Insight into the need for her treatment. History of favorable response to medications and other forms of psychiatric treatment. Needs: Resolution of psychosis. Improved mood. Resolution of active suicidal ideations. Risk Factors Assessment Male: No : Yes Do You Have Access To A Gun?: No Health Problems: Yes Mental Health Diagnoses: Yes Substance Use Disorders: No Previous Attempt: Yes Previous Attempt; Highly Lethal: Yes Previous Attempt; Planned: Yes Previous Attempt; Didn't Tell Anyone: Yes Family History of Suicide: No Previous Psychiatric Hospitalization: Yes Hopelessness: No Smoker: No Protective Factors Assessment Nondenominational Beliefs: No : No Responsible for Young Children: No Employed: No Stable Relationships: Yes Supportive Family: Yes Good Rapport with Provider: Yes Absence of Any Risk Factors Above: No Interval History Identifying Information 55 yo female with schizoaffective disorder, recurrent SI and IDDM admitt on 201 commitment, well known to [facility] from previous hospitalizations. Chief Complaint "I'm alright. I don't need more medicine". Review of Systems Sleep Information Total Hours of Sleep: 6.5 Sleep Comments: pt on q-15 minute checks Meal Information Percent Meal Consumed - Breakfast: 100 Percent Meal Consumed - Lunch: 100 Percent Meal Consumed - Dinner: 100 Subjective Subjective Patient was seen & assessed and interval progress reviewed with treatment team. Patient reportedly, at baseline, has chronic delusions however less overwhelming and distressing. She has been maintained on her high-dose olanzapine with addition of low-dose quetiapine for anxiety here. Staff report she seems down and has demonstrated limited participation. Reportedly visited by case management yesterday. On interview she reports good response from [facility] for sleep. She is without concerns expressed on interview apart from stating that she does not want any more medicine if she feels when she is taking is working well. Of note, she rather abruptly stopped walking during our conversation and appeared relieved when the interview was ultimately terminated. I was later informed by nursing that patient has been declining over taking only half of the methimazole she is prescribed and also requested reduction of vitamin B12 supplement and simplification of her antihypertensive regimen. Also of note, she was later described as being highly distressed by delusional thought content by nursing staff shortly after our interaction today during which she denied preoccupying or distressing thought content and was minimizing of symptomatology. She declined to consider sedating antidepressant trial. Physical Exam Psychiatric Orientation: alert and + guarded Apperance: appropriately dressed Eye Contact: + fair eye contact Motor Behavior: steady gait and station Speech: normal rate/rhythm/volume of speech Affect: + blunted affect Mood: no depressed mood and no anxious mood Thought Process: goal directed thought process Suicidal Thoughts: + reports suicidal thoughts Cognition: language grossly intact Insight: + limited insight Judgement: + fair judgement Vital Signs (Past 24 Hours) Last Vital Signs Temp 36.6 C 11/21/20 06:53 Pulse 80 11/21/20 06:54 Resp 16 11/21/20 06:53 BP 115/75 11/21/20 06:54 Pulse Ox 96 11/12/20 20:42 Results & Data ([facility]) Laboratory Results Laboratory Results - last 24 hr 11/20/20 11/20/20 11/21/20 17:13 21:18 08:37 POC Glucose 205 H 285 H 156 H TSH Free T4 Total T3 11/21/20 11/21/20 11/21/20 11:09 11:09 12:12 POC Glucose 139 H TSH 0.310 Free T4 1.06 Total T3 Pending Current Inpatient Medications Current Inpatient Medications: Current Inpatient Medications Acetaminophen (Acetaminophen 325 Mg Tab) 650 mg PO Q4H PRN PRN Reason: Headache or Minor Fever Stop: 12/12/20 20:17 Al Hydrox/Mg Hydrox/Simethicone (Aluminum/Magnesium Susp 30 Ml Udc) 30 ml PO Q4H PRN PRN Reason: GI Upset Stop: 12/12/20 20:17 Aspirin (Aspirin 81 Mg Ectab) 81 mg PO DAILY ANNAMARIA Stop: 12/13/20 08:59 Last Admin: 11/21/20 08:58 Dose: 81 mg Documented by: Atorvastatin Calcium (Atorvastatin 40 Mg Tab) 40 mg PO HS ANNAMARIA Stop: 12/15/20 21:59 Last Admin: 11/20/20 21:22 Dose: 40 mg Documented by: Benztropine Mesylate (Benztropine Mesylate 1 Mg Tab) 1 mg PO HS ANNAMARIA Stop: 12/12/20 21:59 Last Admin: 11/20/20 21:22 Dose: 1 mg Documented by: Bismuth Subsalicylate (Bismuth Subsalicylate Liqd 236 Ml) 15 ml PO PRN PRN PRN Reason: Loose Stool Stop: 12/12/20 20:17 Cyanocobalamin (Cyanocobalamin 500 Mcg Tablet (Vitamin B-12)) 1,000 mcg PO DAILY ANNAMARIA Stop: 12/14/20 08:59 Last Admin: 11/21/20 08:59 Dose: 500 mcg Documented by: Dextrose (Dextrose 50% 50 Ml Syringe) 25 - 50 ml IV UD PRN; Protocol PRN Reason: Hypoglycemia Protocol Stop: 12/12/20 22:14 Ergocalciferol (Ergocalciferol 50,000 Units 1250 Mcg Cap) 50,000 units PO Fr@0900 ANNAMARIA Stop: 12/13/20 08:59 Last Admin: 11/20/20 08:56 Dose: 50,000 units Documented by: Fenofibrate (Fenofibrate Nanocrystallized 145 Mg Tablet) 145 mg PO QAM ANNAMARIA Stop: 12/13/20 10:59 Last Admin: 11/21/20 08:59 Dose: 145 mg Documented by: Ferrous Sulfate (Ferrous Sulfate 325 Mg Tab) 325 mg PO DAILY ANNAMARIA Stop: 12/13/20 08:59 Last Admin: 11/21/20 09:00 Dose: 325 mg Documented by: Glucagon (Glucagon For Inj 1 Mg Vial) 1 mg SQ UD PRN; Protocol PRN Reason: Hypoglycemia Protocol Stop: 12/12/20 22:14 Glucose (Glucose 40% Gel 15 Gm Tube) 15 - 30 gm PO UD PRN; Protocol PRN Reason: Hypoglycemia Protocol Stop: 12/12/20 22:14 Glucose (Glucose 10 Tabs/Tube) 4 - 8 tabs PO UD PRN; Protocol PRN Reason: Hypoglycemia Protocol Stop: 12/12/20 22:14 HCTZ/Losartan Potassium (Losartan/Hctz 50/12.5mg Tab) 1 tab PO DAILY ANNAMARIA Stop: 12/13/20 08:59 Last Admin: 11/21/20 08:59 Dose: 1 tab Documented by: Hydrochlorothiazide (Hydrochlorothiazide 25 Mg Tab) 25 mg PO DAILY ANNAMARIA Stop: 12/13/20 08:59 Last Admin: 11/21/20 09:06 Dose: Not Given Documented by: Hydroxyzine HCl (Hydroxyzine Hcl 25 Mg Tab) 50 mg PO HSZ PRN PRN Reason: Insomnia Stop: 12/12/20 20:17 Last Admin: 11/15/20 23:32 Dose: 50 mg Documented by: Hydroxyzine HCl (Hydroxyzine Hcl 25 Mg Tab) 25 mg PO Q4H PRN PRN Reason: Anxiety Stop: 12/12/20 20:17 Last Admin: 11/21/20 10:47 Dose: 25 mg Documented by: Hydroxyzine HCl (Hydroxyzine Hcl 25 Mg Tab) 25 mg PO TID ANNAMRAIA Stop: 12/13/20 13:59 Last Admin: 11/21/20 14:30 Dose: 25 mg Documented by: Insulin Aspart (Insulin Aspart 100 Units/Ml 3 Ml Pen) 0 units SC ACHS [facility] Stop: 12/12/20 22:14 Last Admin: 11/21/20 13:06 Dose: 40 units Documented by: Insulin Glargine (Insulin Glargine 100 Unit/Ml Vial) 90 units SC HS [facility]; Protocol Stop: 12/21/20 21:59 Insulin Glargine (Insulin Glargine 100 Unit/Ml Vial) [facility] [place] Protocol Stop: 12/22/20 08:59 Lisinopril (Lisinopril 40 Mg Tab) 40 mg PO DAILY [facility] Stop: 12/13/20 08:59 Last Admin: 11/21/20 09:00 Dose: 40 mg Documented by: Magnesium Hydroxide (Magnesium Hydroxide Susp 30 Ml Udc) 30 ml PO DAILY PRN PRN Reason: Constipation Stop: 12/12/20 20:17 Methimazole (Methimazole 5 Mg Tablet) 10 mg PO DAILY [facility] Stop: 12/13/20 08:59 Last Admin: 11/21/20 08:59 Dose: 5 mg Documented by: Miscellaneous (Carbohydrates For Hypoglycemia ) 15 - 30 gm PO UD PRN PRN Reason: Hypoglycemia Treatment Stop: 12/12/20 22:14 Miscellaneous Information (Pharmacy Glycemic Mgmt Consult) 1 ea N/A UD PRN PRN Reason: Consult Stop: 12/12/20 21:41 Olanzapine (Olanzapine 10 Mg Tab) 30 mg PO HS [facility] Stop: 12/12/20 21:59 Last Admin: 11/20/20 21:22 Dose: 30 mg Documented by: Olanzapine (Olanzapine 5 Mg Tablet) 5 mg PO DAILY@1500 [facility] Stop: 12/13/20 14:59 Last Admin: 11/21/20 14:30 Dose: 5 mg Documented by: Prazosin HCl (Prazosin Hcl 1 Mg Cap) 1 mg PO [facility] Stop: 12/16/20 21:59 Last Admin: 11/20/20 21:22 Dose: 1 mg Documented by: Quetiapine Fumarate (Quetiapine Fumarate 25 Mg Tablet) 50 mg PO Q6 PRN PRN Reason: Anxiety/Agitation Stop: 12/15/20 11:59 Last Admin: 11/19/20 07:03 Dose: 50 mg Documented by: Quetiapine Fumarate (Quetiapine Fumarate 25 Mg Tablet) 50 mg PO BID@0900,1500 ANNAMARIA Stop: 12/17/20 15:29 Last Admin: 11/21/20 14:30 Dose: 50 mg Documented by: Sodium Chloride (Sodium Chloride 0.65% Na Soln 45 Ml ([place])) 1 - 2 sprays NA PRN PRN PRN Reason: Nasal Dryness/Congestion Stop: 12/12/20 20:17 Zolpidem Tartrate (Zolpidem Tartrate 5 Mg Tab) 5 mg PO HS ANNAMARIA Stop: 12/20/20 21:59 Last Admin: 11/20/20 21:22 Dose: 5 mg Documented by: Mental Health & Subst Abuse Tx Psychiatrist Name of Psychiatrist: Irma Guillen Psychiatrist's Date of Appointment with Psychiatrist: 12/10/20 Time of Appointment with Psychiatrist: 11 am Psychiatric Appointment Comment: [phone] Therapist Name of Therapist: Irma Stephen Therapist's Therapy Appointment Comment: Will Call to Schedule Appointment Console Manager Name of Console Manager: [facility] - Keli Martin Phone Number for Console Manager: [phone] Post Discharge Appointments Primary Care Physician Name Of Family Doctor: [facility] - Dr. Reece [facility] Date of Appointment with PCP: 12/15/20 Time of Appointment with PCP: 12:40 p.m. Provider Appointment Comment: Sheldon Barnett, [place] [address] Contact Information Discharge Discharge Address: [address] [place] [address], [place] [address]
[2020-11-21] MEDS: BENZTROPINE MESYLATE 1 MG TAB PO SCH (21:27)
[2020-11-21] MEDS: ZOLPIDEM TARTRATE 5 MG TAB PO SCH (21:27)
[2020-11-21] MEDS: ATORVASTATIN 40 MG TAB PO SCH (21:28)
[2020-11-21] MEDS: PRAZOSIN HCL 1 MG CAP PO SCH (21:28)
[2020-11-21] MEDS: OLANZapine 10 MG TAB PO SCH (21:29)
[2020-11-21] MEDS: INSULIN ASPART 100 UNITS/ML VIAL SC SCH (21:40)
[2020-11-22] MEDS ORDERED: INSULIN ASPART 100 UNITS/ML VIAL SC ONE (01:30)
[2020-11-22] MEDS: hydrOXYzine HCl 25 MG TAB PO PRN ×2 (01:34→10:38)
[2020-11-22] MEDS ORDERED: INSULIN GLARGINE 100 UNIT/ML VIAL SC SCH (09:00)
[2020-11-22] MEDS: ASPIRIN 81 MG ECTAB PO SCH (09:20)
[2020-11-22] MEDS: LOSARTAN/HCTZ 50/12.5MG TAB PO SCH (09:20)
[2020-11-22] MEDS: hydroCHLOROthiazide 25 MG TAB PO SCH (09:20)
[2020-11-22] MEDS: FERROUS SULFATE 325 MG TAB PO SCH (09:20)
[2020-11-22] MEDS: methIMAzole 5 MG TABLET PO SCH (09:21)
[2020-11-22] MEDS: hydrOXYzine HCl 25 MG TAB PO SCH ×3 (09:21→21:03)
[2020-11-22] MEDS: QUEtiapine FUMARATE 25 MG TABLET PO SCH ×2 (09:21→14:27)
[2020-11-22] MEDS: lisinopril 40 MG TAB PO SCH (09:21)
[2020-11-22] MEDS: FENOFIBRATE NANOCRYSTALLIZED 145 MG TABLET PO SCH (09:21)
[2020-11-22] MEDS: CYANOCOBALAMIN 500 MCG TABLET (VITAMIN B-12) PO SCH (09:21)
[2020-11-22] MEDS: INSULIN GLARGINE 100 UNIT/ML VIAL SC SCH ×2 (09:22→21:09)
[2020-11-22] MEDS: INSULIN ASPART 100 UNITS/ML VIAL SC SCH ×5 (09:29→21:10)
--- NOTE | 2020-11-22 10:20 | Pharmacy Report ---
Pharmacy Glycemic Short Note 2 - Date of Service November 22, 2020 - Glycemic Short BSG Results (Last 24 hours): 11/21/20 11/21/20 11/21/20 12:12 16:31 20:25 POC Glucose 139 H 187 H 123 H 11/22/20 11/22/20 01:21 08:12 POC Glucose 108 H 163 H OUTPATIENT ANTIDIABETIC REGIMEN: * Levemir 100 units SQ BID * Liraglutide 1.8 mg SQ daily * Empagliflozin 10 mg PO daily * Glipizide 10 mg PO BID * Metformin ER 500 mg PO BID HbA1c = 8.8% on 10/26/20 ASSESSMENT: 11/22 * Pt has received 334 units of insulin over the past 24hrs * 175 units of basal with Lantus * 159 units of bolus with NovoLog * BSGs [phone] mg/dl * Pt asked for a snack at 0130 overnight. RN gave just a very small snack- pt refused CHO coverage. Pt does not like her BSG <110 mg/dl. Yesterday PM dose of Lantus increased slightly - will decrease back to 85 units BID to maintain BSGs >110 * Post-prandial BSGs in goal range. No changes needed to CF/CR 11/21: * Pt has received 320 units of insulin over the past 24hrs * 170 units of basal with Lantus * 150 units of bolus with NovoLog * BSGs [phone] mg/dl * AM fasting BSG slightly elevated at 156mg/dl - will increase PM dose of Lantus slightly * Post-prandial BSGs elevated at dinner and HS. Will tighten CR 11/19/20: * UG received 242 units of insulin yesterday * 165 units of basal and 77 units of prandial/correctional bolus insulin * BSGs of 187, 207, 134, and 214 mg/dL * Correction factor tightened to 6 yesterday with lunch - will continue * Fasting BSG this morning of 129 mg/dL 11/17/20: * Pt has received 238 units of insulin over the past 24hrs * 150 units of basal with Lantus * 88 units of bolus with NovoLog * BSGs [phone] mg/dl * AM fasting BSG is above goal range at 215 mg/dl. Will increase basal insulin by 10-15% and continue to titrate based on BSG trends. * Post-prandial BSGs are elevated after receiving only CHO coverage (i.e. when pre-meal BSG is at or near goal range). Will tighten CHO ratio and loosen CF since basal insulin is being increased. 11/13/20 * 55 y/o F admitted for Schizophrenia. Patient with history of type 2 diabetes managed at home on 5 different anti-diabetic meds including basal insulin. * Will hold oral agents and SQ Liraglutide for admission and utilize SQ basal bolus insulin regimen which is the recommended regimen for inpatient glycemic control. * During prior admission in December 2019, patient was requiring around 70 units of basal insulin BID. However, at the time she refused most of these doses and had to be switched to oral Metformin and Glipizide. * Will trial basal 50 units BID which is a 50% decrease from home dose and Novolog for bolus insulin coverage for meals and bedtime. * Patient did refuse her Lantus 50 unit dose last night which most likely caused high BSG this AM of 206 mg/dl. * Nurse told me pt slept in late, so the breakfast coverage and Lantus dose for this AM was given late in the morning today. * So, I asked the nurse to skip the lunch BSG check and only cover carbs if pt is eating lunch as well. PLAN FOR INPATIENT GLYCEMIC CONTROL: * Hold outpatient oral diabetes medications unless patient refuses basal insulin * Basal insulin -decrease back to 85units BID * Lantus 85 units SQ BID * Bolus insulin - no change * NovoLog per scale ACHS or Q6hrs while NPO * Goal Range: Low 110 mg/dL - High 140 mg/dL * Correction Factor: 6 mg/dL/unit * Nutritional / Prandial insulin per carb ratio of 1 unit per 1.5 grams CHO consumed PLAN FOR DISCHARGE: * HbA1c = 8.8% * Goal A1c is less than 7%. * A1c is not at goal but is lower now than it has been on previous admissions. * Doses of oral anti-diabetic meds could be adjusted up. However, would leave that to the outpatient provider. * As long as patient is not reporting hypoglycemia at home, would continue all of her home anti-diabetic meds on discharge and encourage compliance with them.
[2020-11-22] MEDS: OLANZapine 5 MG TABLET PO SCH (14:27)
--- NOTE | 2020-11-22 15:24 | Psychiatric Progress Note ---
Date of Service November 22, 2020 Impression / Recommendations Impression 55-year-old woman with a known diagnosis of schizophrenia and a long history of multiple psychiatric hospitalizations who is admitted voluntarily with thoughts of killing herself, a belief that she is "unsafe" because unspecified others are trying to kill her, and worsening depression. She had not been sleeping well, and had recently been advised by her outpatient therapist that she can no longer call him between their weekly appointments, as she previously had been calling frequently. She has been started on an augmenting antipsychotic (quetiapine), as well as zolpidem and prazosin to target sleep. Although she notes some mild improvement, she continues to endorse severe depression, delusions, and suicidal thoughts, and is unable to contract for safety outside of the hospital, so inpatient treatment remains medically necessary. (1) Schizophrenia: 11/13 -The patient has been admitted to the [facility] inpatient psychiatric unit and is being closely observed with [id number] checks every 15 minutes. She has been referred for individual, group, and recreational therapies. We also plan a family meeting with her mother, assuming the patient's willingness. -We will also continue her current outpatient medications, including olanzapine 5 mg daily (afternoons) and 30 mg at bedtime as her primary antipsychotic. -Although the patient has a past history of periodically having difficulty sharing a bedroom with a peer, she also has a history of doing much better when she is able to tolerate a roommate. Currently, our assessment is that the patient is able to tolerate a roommate, and this is meant to her advantage in the past because the patient likes to be able to use a roommate for purposes companionship, and also for purposes of reality testing 11/14--reviewed. continue current meds and tx plan. 11/15--patient is willing to take Seroquel prn for breakthrough symptoms. Appears less depressed but a bit tired today following prn Vistaril. Seroquel 25 mg po q6 hr prn. 11/16--increase prn Seroquel to 50 mg po q6 hr. delusions appear ego syntonic/mood congruent but declines additional depression tx. 11/17 -continue current medications and treatment plan, reviewed labs for monitoring on an atypical antipsychotic from 10/26/2020: FLP notable for triglycerides 1119, cholesterol 254 (both are chronically elevated for at least the past 3 years), and hemoglobin A1c elevated at 8.8% (estimated average glucose 206). Although atypical antipsychotics have a risk of metabolic syndrome, patient is aware of this risk, and believes the benefits currently outweigh the risks, as her untreated psychotic symptoms cause worsening mood and suicidality, as well as inability to function. 11/18 - Continue current medication regimen - patient admitting to benefits from addition of quetiapine twice daily. - Reports worsened mood today, feeling more "down". Seems to be rather troubled and distracted today, though states she is not interested in discussing any of these things at present - Continue to monitor mood and severity of delusional thinking 11/19 - Continue medication regimen - patient reports struggling with increased "paranoia" today, but states she has been utilizing coping strategies, reality testing, and positive affirmations. Has been a bit more interactive with peers, though not consistently so. - Continues to require inpatient psychiatric treatment and support 11/20 - Continue current medication regimen - patient reminded of prn quetiapine availability - Ongoing paranoia/delusions - patient has been focusing on using coping skills. Encouraged to utilize group programming as a distraction from these thoughts. Continue efforts to assist with reality orientation. - Pt continues to be unable to tolerate the stress of community re-entry 11/21 -Remains variably delusionally preoccupied and seems to have longstanding illogically based thoughts and opinions about medication regimen with a tendency to prefer certain medicines over others without clear basis 11/22 -Delusional thought content remains quite distressing at times however she continues to resist consideration for antidepressant augmentation. Interestingly she reports reduction of distressing thoughts following hydroxyzine as needed suggesting significant bidirectional relationship between anxiety and power of illogical thought content. (2) Suicidal ideations: 11/13 -The patient reports that she is continuing to experience thoughts of suicide and today says that she cannot commit to safety in the community. She does say that she has no plan to physically harm herself in the hospital, and agrees to notify staff if such thoughts present themselves. -We are continuing suicide precautions with close observation. -Group therapies will focus on helping the patient improve her individual coping strategies. 11/14--reviewed. 11/15--resolved. 11/17 -patient reports suicidal thoughts have improved since admission, but are still present. She feels safe in the hospital, but not outside. 11/18 - 11/20 - Ongoing SI unable to contract for safety outside of hospital. (3) Depression: 11/13 -Although the patient does have a history of recurrent episodes of depression, and although in the past she has carried diagnoses of schizoaffective disorder, but by far the most prominent set of symptoms in this case are the symptoms of schizophrenia, and depression is thought to be a separate and secondary diagnosis. -The patient, herself, feels that her depression and anxious distress are primarily related to poor sleep, and the fact that she has found that she is "terrified" of the nighta circumstance that often keeps her awake. Currently, we will offer the patient a trial of Ambien 5 mg at bedtime as needed for sleep. -Anxious distress is part of the patient's current mood. She reports that hydroxyzine ("Vistaril") helps, and says that she prefers a standing dose order of Vistaril 25 mg 3 times a day, with supplemental Vistaril dosages as needed. 11/14--reviewed. 11/15--Ambien remains effective. 11/18 - Continue as above - patient reports feeling "down" today, able to contract for safety on unit, but not outside of hospital. 11/20 - Reports ongoing depressed mood, utilizing coping skills - ongoing SI, though reported to be less severe - Unable to contract for safety outside of the hospital setting 11/21 -Discussed consideration for sedating antidepressant briefly with patient today however she declined to consider this intervention today indicating lack of need however, high-dose trazodone with smaller doses during the day might be helpful on multiple fronts for mood elevation, anxiety, sleep, and potentially could substitute for the Seroquel and avoid the antipsychotic polypharmacy. We will readdress again tomorrow. 11/22 -Reviewed patient has previously been treated with trazodone in the past. unclear if h/o daytime dosing. again this could be considered as alternative to hydroxyzine but was declined by pt again today. (4) Diabetes mellitus type 2, uncontrolled: 11/13 -Pharmacy diabetic consultation has been provided, and recommendations are being followed. The patient's blood glucose levels at admission are elevated, and several adjustments in her medication regimen have been necessary. 11/14--reviewed. 11/21 -Appreciate diabetic pharmacy follow-up and recommendations for blood sugars to remain inadequately controlled Inventory Assets Strengths: Intelligent. Good support system. Insight into the need for her treatment. History of favorable response to medications and other forms of psychiatric treatment. Needs: Resolution of psychosis. Improved mood. Resolution of active suicidal ideations. Risk Factors Assessment Male: No : Yes Do You Have Access To A Gun?: No Health Problems: Yes Mental Health Diagnoses: Yes Substance Use Disorders: No Previous Attempt: Yes Previous Attempt; Highly Lethal: Yes Previous Attempt; Planned: Yes Previous Attempt; Didn't Tell Anyone: Yes Family History of Suicide: No Previous Psychiatric Hospitalization: Yes Hopelessness: No Smoker: No Protective Factors Assessment Worship Beliefs: No : No Responsible for Young Children: No Employed: No Stable Relationships: Yes Supportive Family: Yes Good Rapport with Provider: Yes Absence of Any Risk Factors Above: No Interval History Identifying Information 55 yo female with schizoaffective disorder, recurrent SI and IDDM admitt on 201 commitment, well known to 3S from previous hospitalizations. Chief Complaint "I do not want more medication". Review of Systems Sleep Information Total Hours of Sleep: 5.5 Sleep Comments: pt on q-15 minute checks Meal Information Percent Meal Consumed - Breakfast: 100 Percent Meal Consumed - Lunch: 100 Percent Meal Consumed - Dinner: 100 Subjective Subjective Patient was seen & assessed and interval progress reviewed with treatment team. Patient reportedly demonstrating delusional preoccupation and associated emotional upset yesterday evening per staff however improved significantly following as needed Vistaril dose. Treatment history was reviewed including distant trial on clozapine. Unfortunately she is again adamantly against considering additional augmentation strategies and perceives that the current regimen is quite satisfactory however she does request dose reduction of vitamin B12. We discussed importance of consistent dose of methimazole for hyperthyroidism which she agreed to take. Physical Exam Psychiatric Orientation: alert, cooperative and + guarded Apperance: appropriately groomed and appeared stated age Eye Contact: good eye contact Motor Behavior: steady gait and station Speech: normal rate/rhythm/volume of speech Affect: + blunted affect Mood: + anxious mood; no depressed mood She demonstrates cognitive rigidity Thought Content: + preoccupation Suicidal Thoughts: denies suicidal intent Hallucinations: + auditory hallucinations Cognition: language grossly intact Insight: + fair insight Judgement: + limited judgement Vital Signs (Past 24 Hours) Last Vital Signs Temp 36.6 C 11/22/20 07:00 Pulse 81 03/28/21 07:02 Resp 16 11/22/20 07:00 BP 118/79 11/22/20 07:02 Pulse Ox 96 11/12/20 20:42 Results & Data ([facility]) Laboratory Results Laboratory Results - last 24 hr 11/21/20 11/21/20 11/22/20 16:31 20:25 01:21 POC Glucose 187 H 123 H 108 H 11/22/20 11/22/20 08:12 12:08 POC Glucose 163 H 186 H Current Inpatient Medications Current Inpatient Medications: Current Inpatient Medications Acetaminophen (Acetaminophen 325 Mg Tab) 650 mg PO Q4H PRN PRN Reason: Headache or Minor Fever Stop: 12/12/20 20:17 Al Hydrox/Mg Hydrox/Simethicone (Aluminum/Magnesium Susp 30 Ml Udc) 30 ml PO Q4H PRN PRN Reason: GI Upset Stop: 12/12/20 20:17 Aspirin (Aspirin 81 Mg Ectab) 81 mg PO DAILY ANNAMARIA Stop: 12/13/20 08:59 Last Admin: 11/22/20 09:20 Dose: 81 mg Documented by: Atorvastatin Calcium (Atorvastatin 40 Mg Tab) 40 mg PO HS ANNAMARIA Stop: 12/15/20 21:59 Last Admin: 11/21/20 21:28 Dose: 40 mg Documented by: Benztropine Mesylate (Benztropine Mesylate 1 Mg Tab) 1 mg PO HS ANNAMARIA Stop: 12/12/20 21:59 Last Admin: 11/21/20 21:27 Dose: 1 mg Documented by: Bismuth Subsalicylate (Bismuth Subsalicylate Liqd 236 Ml) 15 ml PO PRN PRN PRN Reason: Loose Stool Stop: 12/12/20 20:17 Cyanocobalamin (Cyanocobalamin 500 Mcg Tablet (Vitamin B-12)) 1,000 mcg PO DAILY ANNAMARIA Stop: 12/14/20 08:59 Last Admin: 11/22/20 09:21 Dose: 500 mcg Documented by: Dextrose (Dextrose 50% 50 Ml Syringe) 25 - 50 ml IV UD PRN; Protocol PRN Reason: Hypoglycemia Protocol Stop: 12/12/20 22:14 Ergocalciferol (Ergocalciferol 50,000 Units 1250 Mcg Cap) 50,000 units PO Fr@0900 ANNAMARIA Stop: 12/13/20 08:59 Last Admin: 11/20/20 08:56 Dose: 50,000 units Documented by: Fenofibrate (Fenofibrate Nanocrystallized 145 Mg Tablet) 145 mg PO QAM [facility] Stop: 12/13/20 10:59 Last Admin: 11/22/20 09:21 Dose: 145 mg Documented by: Ferrous Sulfate (Ferrous Sulfate 325 Mg Tab) 325 mg PO DAILY ANNAMARIA Stop: 12/13/20 08:59 Last Admin: 11/22/20 09:20 Dose: 325 mg Documented by: Glucagon (Glucagon For Inj 1 Mg Vial) 1 mg SQ UD PRN; Protocol PRN Reason: Hypoglycemia Protocol Stop: 12/12/20 22:14 Glucose (Glucose 40% Gel 15 Gm Tube) 15 - 30 gm PO UD PRN; Protocol PRN Reason: Hypoglycemia Protocol Stop: 12/12/20 22:14 Glucose (Glucose 10 Tabs/Tube) 4 - 8 tabs PO UD PRN; Protocol PRN Reason: Hypoglycemia Protocol Stop: 12/12/20 22:14 HCTZ/Losartan Potassium (Losartan/Hctz 50/12.5mg Tab) 1 tab PO DAILY [facility] Stop: 12/13/20 08:59 Last Admin: 11/22/20 09:20 Dose: 1 tab Documented by: Hydrochlorothiazide (Hydrochlorothiazide 25 Mg Tab) 25 mg PO DAILY [facility] Stop: 12/13/20 08:59 Last Admin: 11/22/20 09:20 Dose: 25 mg Documented by: Hydroxyzine HCl (Hydroxyzine Hcl 25 Mg Tab) 50 mg PO HSZ PRN PRN Reason: Insomnia Stop: 12/12/20 20:17 Last Admin: 11/22/20 01:34 Dose: 50 mg Documented by: Hydroxyzine HCl (Hydroxyzine Hcl 25 Mg Tab) 25 mg PO Q4H PRN PRN Reason: Anxiety Stop: 12/12/20 20:17 Last Admin: 11/22/20 10:38 Dose: 25 mg Documented by: Hydroxyzine HCl (Hydroxyzine Hcl 25 Mg Tab) 25 mg PO TID [facility] Stop: 12/13/20 13:59 Last Admin: 11/22/20 14:27 Dose: 25 mg Documented by: Insulin Aspart (Insulin Aspart 100 Units/Ml Vial) 0 units SC ACHS [facility] Stop: 12/21/20 21:59 Last Admin: 11/22/20 13:07 Dose: 55 units Documented by: Insulin Glargine (Insulin Glargine 100 Unit/Ml Vial) 85 units SC BID [facility]; Protocol Stop: 12/22/20 08:59 Last Admin: 11/22/20 09:22 Dose: 85 units Documented by: Lisinopril (Lisinopril 40 Mg Tab) 40 mg PO DAILY [facility] Stop: 12/13/20 08:59 Last Admin: 11/22/20 09:21 Dose: 40 mg Documented by: Magnesium Hydroxide (Magnesium Hydroxide Susp 30 Ml Udc) 30 ml PO DAILY PRN PRN Reason: Constipation Stop: 12/12/20 20:17 Methimazole (Methimazole 5 Mg Tablet) 10 mg PO DAILY [facility] Stop: 12/13/20 08:59 Last Admin: 11/22/20 09:21 Dose: 5 mg Documented by: Miscellaneous (Carbohydrates For Hypoglycemia ) 15 - 30 gm PO UD PRN PRN Reason: Hypoglycemia Treatment Stop: 12/12/20 22:14 Miscellaneous Information (Pharmacy Glycemic Mgmt Consult) 1 ea N/A UD PRN PRN Reason: Consult Stop: 12/12/20 21:41 Olanzapine (Olanzapine 10 Mg Tab) 30 mg PO HS [facility] Stop: 12/12/20 21:59 Last Admin: 11/21/20 21:29 Dose: 30 mg Documented by: Olanzapine (Olanzapine 5 Mg Tablet) 5 mg PO DAILY@1500 ANNAMARIA Stop: 12/13/20 14:59 Last Admin: 11/22/20 14:27 Dose: 5 mg Documented by: Prazosin HCl (Prazosin Hcl 1 Mg Cap) 1 mg PO HS ANNAMARIA Stop: 12/16/20 21:59 Last Admin: 11/21/20 21:28 Dose: 1 mg Documented by: Quetiapine Fumarate (Quetiapine Fumarate 25 Mg Tablet) 50 mg PO Q6 PRN PRN Reason: Anxiety/Agitation Stop: 12/15/20 11:59 Last Admin: 11/19/20 07:03 Dose: 50 mg Documented by: Quetiapine Fumarate (Quetiapine Fumarate 25 Mg Tablet) 50 mg PO BID@0900,1500 [facility] Stop: 12/17/20 15:29 Last Admin: 11/22/20 14:27 Dose: 50 mg Documented by: Sodium Chloride (Sodium Chloride 0.65% Na Soln 45 Ml ([place])) 1 - 2 sprays NA PRN PRN PRN Reason: Nasal Dryness/Congestion Stop: 12/12/20 20:17 Zolpidem Tartrate (Zolpidem Tartrate 5 Mg Tab) 5 mg PO HS ANNAMARIA Stop: 12/20/20 21:59 Last Admin: 11/21/20 21:27 Dose: 5 mg Documented by: Mental Health & Subst Abuse Tx Psychiatrist Name of Psychiatrist: Irma Guillen Psychiatrist's Date of Appointment with Psychiatrist: 12/10/20 Time of Appointment with Psychiatrist: 11 am Psychiatric Appointment Comment: [phone] Therapist Name of Therapist: Irma Stephen Therapist's Therapy Appointment Comment: Will Call to Schedule Appointment General Repairer Name of General Repairer: [facility] - Keli Martin Phone Number for General Repairer: [phone] Post Discharge Appointments Primary Care Physician Name Of Family Doctor: [facility] - Dr. Reece [facility] Date of Appointment with PCP: 12/15/20 Time of Appointment with PCP: 12:40 p.m. Provider Appointment Comment: Sheldon Barnett, [place] [address] Contact Information Discharge Discharge Address: [address] [place] [id number]
[2020-11-22] MEDS: ZOLPIDEM TARTRATE 5 MG TAB PO SCH (21:03)
[2020-11-22] MEDS: ATORVASTATIN 40 MG TAB PO SCH (21:04)
[2020-11-22] MEDS: PRAZOSIN HCL 1 MG CAP PO SCH (21:04)
[2020-11-22] MEDS: BENZTROPINE MESYLATE 1 MG TAB PO SCH (21:04)
[2020-11-22] MEDS: OLANZapine 10 MG TAB PO SCH (21:05)
[2020-11-23] MEDS: methIMAzole 5 MG TABLET PO SCH (09:25)
[2020-11-23] MEDS: LOSARTAN/HCTZ 50/12.5MG TAB PO SCH (09:26)
[2020-11-23] MEDS: QUEtiapine FUMARATE 25 MG TABLET PO SCH ×2 (09:26→14:24)
[2020-11-23] MEDS: lisinopril 40 MG TAB PO SCH (09:27)
[2020-11-23] MEDS: hydrOXYzine HCl 25 MG TAB PO SCH ×3 (09:27→21:06)
[2020-11-23] MEDS: CYANOCOBALAMIN 500 MCG TABLET (VITAMIN B-12) PO SCH (09:27)
[2020-11-23] MEDS: ASPIRIN 81 MG ECTAB PO SCH (09:27)
[2020-11-23] MEDS: hydroCHLOROthiazide 25 MG TAB PO SCH (09:28)
[2020-11-23] MEDS: FERROUS SULFATE 325 MG TAB PO SCH (09:28)
[2020-11-23] MEDS: FENOFIBRATE NANOCRYSTALLIZED 145 MG TABLET PO SCH (09:34)
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
[2020-11-23] MEDS: INSULIN GLARGINE SOLOSTAR 100 UNITS/ML 3 ML PEN SC SCH ×2 (10:17→21:07)
[2020-11-23] MEDS: INSULIN ASPART 100 UNITS/ML 3 ML PEN SC SCH ×4 (10:18→21:22)
--- NOTE | 2020-11-23 14:02 | Pharmacy Report ---
Pharmacy Glycemic Short Note 2 - Date of Service November 23, 2020 - Glycemic Short BSG Results (Last 24 hours): 11/22/20 11/22/20 11/23/20 16:36 19:39 08:31 POC Glucose 122 H 209 H 123 H 11/23/20 11:53 POC Glucose 147 H OUTPATIENT ANTIDIABETIC REGIMEN: * Levemir 100 units SQ BID * Liraglutide 1.8 mg SQ daily * Empagliflozin 10 mg PO daily * Glipizide 10 mg PO BID * Metformin ER 500 mg PO BID HbA1c = 8.8% on 10/26/20 ASSESSMENT: 11/23 * Patient refused several doses of insulin yesterday because it had been changed to a vial instead of a pen * This led to significant reduction in daily insulin dose * Will change back to pen based on patient preference * BSGs yesterday of 163, 186, 122, and 209 mg/dL * Patient received 169 units of insulin (approximately half of previous day's insulin requirement) * BSGs surprisingly look good today despite this (123 and 147 mg/dL) 11/22 * Pt has received 334 units of insulin over the past 24hrs * 175 units of basal with Lantus * 159 units of bolus with NovoLog * BSGs [phone] mg/dl * Pt asked for a snack at 0130 overnight. RN gave just a very small snack- pt refused CHO coverage. Pt does not like her BSG <110 mg/dl. Yesterday PM dose of Lantus increased slightly - will decrease back to 85 units BID to maintain BSGs >110 * Post-prandial BSGs in goal range. No changes needed to CF/CR 11/13/20 * 55 y/o F admitted for Schizophrenia. Patient with history of type 2 diabetes managed at home on 5 different anti-diabetic meds including basal insulin. * Will hold oral agents and SQ Liraglutide for admission and utilize SQ basal bolus insulin regimen which is the recommended regimen for inpatient glycemic control. * During prior admission in December 2019, patient was requiring around 70 units of basal insulin BID. However, at the time she refused most of these doses and had to be switched to oral Metformin and Glipizide. * Will trial basal 50 units BID which is a 50% decrease from home dose and Novolog for bolus insulin coverage for meals and bedtime. * Patient did refuse her Lantus 50 unit dose last night which most likely caused high BSG this AM of 206 mg/dl. * Nurse told me pt slept in late, so the breakfast coverage and Lantus dose for this AM was given late in the morning today. * So, I asked the nurse to skip the lunch BSG check and only cover carbs if pt is eating lunch as well. PLAN FOR INPATIENT GLYCEMIC CONTROL: * Hold outpatient oral diabetes medications unless patient refuses basal insulin * Basal insulin - * Lantus 80 units SC x 1 given this morning based on remaining insulin in pen and patient refusal for additional injection * Lantus 85 units SQ BID thereafter * Bolus insulin - no change * NovoLog per scale ACHS or Q6hrs while NPO * Goal Range: Low 110 mg/dL - High 140 mg/dL * Correction Factor: 6 mg/dL/unit * Nutritional / Prandial insulin per carb ratio of 1 unit per 1.5 grams CHO consumed PLAN FOR DISCHARGE: * HbA1c = 8.8% * Goal A1c is less than 7%. * A1c is not at goal but is lower now than it has been on previous admissions. * Doses of oral anti-diabetic meds could be adjusted up. However, would leave that to the outpatient provider. * As long as patient is not reporting hypoglycemia at home, would continue all of her home anti-diabetic meds on discharge and encourage compliance with them.
[2020-11-23] MEDS: OLANZapine 5 MG TABLET PO SCH (14:23)
[2020-11-23] MEDS: ZOLPIDEM TARTRATE 5 MG TAB PO SCH (21:06)
[2020-11-23] MEDS: PRAZOSIN HCL 1 MG CAP PO SCH (21:06)
[2020-11-23] MEDS: ATORVASTATIN 40 MG TAB PO SCH (21:06)
[2020-11-23] MEDS: OLANZapine 10 MG TAB PO SCH (21:06)
[2020-11-23] MEDS: BENZTROPINE MESYLATE 1 MG TAB PO SCH (21:06)
[2020-11-24] MEDS: hydrOXYzine HCl 25 MG TAB PO PRN (03:08)
--- NOTE | 2020-11-24 08:46 | Psychiatric Progress Note ---
Date of Service November 24, 2020 Impression / Recommendations Impression 55-year-old woman with a known diagnosis of schizophrenia and a long history of multiple psychiatric hospitalizations who is admitted voluntarily with thoughts of killing herself, a belief that she is "unsafe" because unspecified others are trying to kill her, and worsening depression. She had not been sleeping well, and had recently been advised by her outpatient therapist that she can no longer call him between their weekly appointments, as she previously had been calling frequently. She has been started on an augmenting antipsychotic (quetiapine), as well as zolpidem and prazosin to target sleep. Although she notes some mild improvement, she continues to endorse episodes of depression, delusions, and suicidal thoughts, and is unable to contract for safety outside of the hospital, so inpatient treatment remains medically necessary. (1) Schizophrenia: 11/13 -The patient has been admitted to the [facility] inpatient psychiatric unit and is being closely observed with [id number] checks every 15 minutes. She has been referred for individual, group, and recreational therapies. We also plan a family meeting with her mother, assuming the patient's willingness. -We will also continue her current outpatient medications, including olanzapine 5 mg daily (afternoons) and 30 mg at bedtime as her primary antipsychotic. -Although the patient has a past history of periodically having difficulty sharing a bedroom with a peer, she also has a history of doing much better when she is able to tolerate a roommate. Currently, our assessment is that the patient is able to tolerate a roommate, and this is meant to her advantage in the past because the patient likes to be able to use a roommate for purposes companionship, and also for purposes of reality testing 11/14--reviewed. continue current meds and tx plan. 11/15--patient is willing to take Seroquel prn for breakthrough symptoms. Appears less depressed but a bit tired today following prn Vistaril. Seroquel 25 mg po q6 hr prn. 11/16--increase prn Seroquel to 50 mg po q6 hr. delusions appear ego syntonic/mood congruent but declines additional depression tx. 11/17 -continue current medications and treatment plan, reviewed labs for monitoring on an atypical antipsychotic from 10/26/2020: FLP notable for triglycerides 1119, cholesterol 254 (both are chronically elevated for at least the past 3 years), and hemoglobin A1c elevated at 8.8% (estimated average glucose 206). Although atypical antipsychotics have a risk of metabolic syndrome, patient is aware of this risk, and believes the benefits currently outweigh the risks, as her untreated psychotic symptoms cause worsening mood and suicidality, as well as inability to function. 11/18 - Continue current medication regimen - patient admitting to benefits from addition of quetiapine twice daily. - Reports worsened mood today, feeling more "down". Seems to be rather troubled and distracted today, though states she is not interested in discussing any of these things at present - Continue to monitor mood and severity of delusional thinking 11/19 - Continue medication regimen - patient reports struggling with increased "paranoia" today, but states she has been utilizing coping strategies, reality testing, and positive affirmations. Has been a bit more interactive with peers, though not consistently so. - Continues to require inpatient psychiatric treatment and support 11/20 - Continue current medication regimen - patient reminded of prn quetiapine availability - Ongoing paranoia/delusions - patient has been focusing on using coping skills. Encouraged to utilize group programming as a distraction from these thoughts. Continue efforts to assist with reality orientation. - Pt continues to be unable to tolerate the stress of community re-entry 11/21 -Remains variably delusionally preoccupied and seems to have longstanding illogically based thoughts and opinions about medication regimen with a tendency to prefer certain medicines over others without clear basis 11/22 -Delusional thought content remains quite distressing at times however she continues to resist consideration for antidepressant augmentation. Interestingly she reports reduction of distressing thoughts following hydroxyzine as needed suggesting significant bidirectional relationship between anxiety and power of illogical thought content. 11/23 - Ongoing delusional thought content - improved reality-testing this morning, but per patient and staff the level of distress related to these thoughts continues to be rather variable. Will continue to encourage use of effective coping strategies and promote independence with reality-testing - Continue current medication regimen - Encourage increased participation with group and recreational programming 11/24 - Pt describes herself today as "free from paranoia"; however, staff reports continued episodes of patient sharing in groups that she feels responsible for major tragedies such as 05/08. Overall level of distress related to these chronic delusions of reference seems to be reduced; however, patient is not yet able to tolerate the stress of community re-entry - Pt reported concerns with her antihypertensive regimen today, requesting to discontinue two agents and stay on lisinopril only. Reviewed with patient that recommendation is that she continue her current regimen, but changes could be discussed with her PCP if desired (scheduled for 12/15/20). Pt does have a history of refusing various ordered medications during past psychiatric admissions. (2) Suicidal ideations: 11/13 -The patient reports that she is continuing to experience thoughts of suicide and today says that she cannot commit to safety in the community. She does say that she has no plan to physically harm herself in the hospital, and agrees to notify staff if such thoughts present themselves. -We are continuing suicide precautions with close observation. -Group therapies will focus on helping the patient improve her individual coping strategies. 11/14--reviewed. 11/15--resolved. 11/17 -patient reports suicidal thoughts have improved since admission, but are still present. She feels safe in the hospital, but not outside. 11/18 - 11/20 - Ongoing SI unable to contract for safety outside of hospital. 11/23 - Pt describes SI as "mild" today, though mood, delusions, and frustration/defeat continue to be variable and patient remains at acute risk of harm to self if discharged prematurely 11/24 - Denies SI today (3) Depression: 11/13 -Although the patient does have a history of recurrent episodes of depression, and although in the past she has carried diagnoses of schizoaffective disorder, but by far the most prominent set of symptoms in this case are the symptoms of schizophrenia, and depression is thought to be a separate and secondary diagnosis. -The patient, herself, feels that her depression and anxious distress are primarily related to poor sleep, and the fact that she has found that she is "terrified" of the nighta circumstance that often keeps her awake. Currently, we will offer the patient a trial of Ambien 5 mg at bedtime as needed for sleep. -Anxious distress is part of the patient's current mood. She reports that hydroxyzine ("Vistaril") helps, and says that she prefers a standing dose order of Vistaril 25 mg 3 times a day, with supplemental Vistaril dosages as needed. 11/14--reviewed. 11/15--Ambien remains effective. 11/18 - Continue as above - patient reports feeling "down" today, able to contract for safety on unit, but not outside of hospital. 11/20 - Reports ongoing depressed mood, utilizing coping skills - ongoing SI, though reported to be less severe - Unable to contract for safety outside of the hospital setting 11/21 -Discussed consideration for sedating antidepressant briefly with patient today however she declined to consider this intervention today indicating lack of need however, high-dose trazodone with smaller doses during the day might be helpful on multiple fronts for mood elevation, anxiety, sleep, and potentially could substitute for the Seroquel and avoid the antipsychotic polypharmacy. We will readdress again tomorrow. 11/22 -Reviewed patient has previously been treated with trazodone in the past. unclear if h/o daytime dosing. again this could be considered as alternative to hydroxyzine but was declined by pt again today. 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 The patient's blood glucose levels at admission are elevated, and several adjustments in her medication regimen have been necessary. 11/14--reviewed. 11/21 -Appreciate diabetic pharmacy follow-up and recommendations for blood sugars to remain inadequately controlled 11/23 - Pt refused HS insulin last evening, initially refused insulin this AM. Reports concern is related to feeling the vial/syringe dosing causes tachycardia, dizziness, and hot flashes. Pt is agreeable with continuing insulin if given the insulin pen form. - Pt did report desire to stop insulin if possible and switch to metformin, which she had taken in the past. We reviewed the reasons this would be inappropriate and patient verbalized understanding. Will continue to encourage appropriate and reality-based diabetic management routine. - Appreciate ongoing assistance from glycemic pharmacists. Inventory Assets Strengths: Intelligent. Good support system. Insight into the need for her treatment. History of favorable response to medications and other forms of psychiatric treatment. Needs: Resolution of psychosis. Improved mood. Resolution of active suicidal ideations. Risk Factors Assessment Male: No : Yes Do You Have Access To A Gun?: No Health Problems: Yes Mental Health Diagnoses: Yes Substance Use Disorders: No Previous Attempt: Yes Previous Attempt; Highly Lethal: Yes Previous Attempt; Planned: Yes Previous Attempt; Didn't Tell Anyone: Yes Family History of Suicide: No Previous Psychiatric Hospitalization: Yes Hopelessness: No Smoker: No Protective Factors Assessment Faith Beliefs: No : No Responsible for Young Children: No Employed: No Stable Relationships: Yes Supportive Family: Yes Good Rapport with Provider: Yes Absence of Any Risk Factors Above: No Interval History Identifying Information 55 yo female with schizoaffective disorder, recurrent SI and IDDM admitt on 201 commitment, well known to 3[facility] from previous hospitalizations. Chief Complaint "Um, I do think I'm feeling better." Review of Systems Notes Constitutional: reports fatigue this morning Cardiovascular: denied Respiratory: denied Gastrointestinal: denied Neurological: denied Psychiatric: denies symptoms other than stated above Total of at least 10 systems reviewed, pertinent positives as above and in HPI. Sleep Information Total Hours of Sleep: 6.5 Sleep Comments: pt given vistaril per rn. pt on q-15 minute checks Meal Information Percent Meal Consumed - Breakfast: 100 Percent Meal Consumed - Lunch: 90 Percent Meal Consumed - Dinner: 100 Subjective Subjective Patient was seen & assessed and interval progress reviewed with nursing and social work. Staff report the patient seems to be improved overall, but continues to struggle with episodes of delusional thinking. Pt occasionally mentions during group programming that she feels responsible for events like 05/08. Reportedly, she was hesitant to take her scheduled dose of benztropine last evening as she believed it is harmful to fetuses (pt has a long-standing delusion that she is , which worsens in severity when psychiatrically destabilized). Superficially, patient is appropriate and has been less tearful. Pt was seen today to assess progress since admission. She initially sought out conversation with this provider to discuss her concerns about her antihypertensive regimen. Pt was encouraged to follow-up with her PCP about changes. Pt shares that overall "I do think I'm feeling better." She describes herself as "free from paranoia" today. 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 Pt admits that she is at about a "75%" right now, feeling she would be a "40%" if she were outside of the hospital. Although patient is able to verbalize several supports she has outside of the hospital and is future oriented with regard to eventual plans to meet up with friends, she admits that she does not yet feel that she can contract for safety outside of the hospital setting. Pt denied other needs or concerns today. Physical Exam Psychiatric Orientation: alert, oriented x 3 and cooperative Apperance: appropriately dressed, appropriately groomed and appeared stated age Eye Contact: + fair eye contact Motor Behavior: no abnormal motor movements (observed while laying on bed) Speech: normal rate/rhythm/volume of speech Affect: + flat affect Mood: + depressed mood (but admits "feeling a little electrical and radio aircraft mechanic today") Thought Process: goal directed thought process and + concrete thought process Thought Content: reality based without delusions describing herself today as "free from paranoia" - however, staff report patient continues to intermittently reference delusional thinking Suicidal Thoughts: denies suicidal thoughts and denies suicidal intent Homicidal Thoughts: denies homicidal thoughts Hallucinations: no auditory hallucinations and no visual hallucinations Cognition: attention grossly intact and language grossly intact Estimated Intelligence: consistent with education level Insight: + fair insight level of insight does seem to vacillate at times, patient is able to articulate understanding of her condition and chronic paranoia, but then struggles to follow-through on coping strategies or reality-testing. Judgement: + fair judgement Vital Signs (Past 24 Hours) Last Vital Signs Temp 36.4 C L 11/24/20 06:45 Pulse 79 11/24/20 06:46 Resp 16 11/24/20 06:45 BP 113/72 11/24/20 06:46 Pulse Ox 96 11/12/20 20:42 Results & Data ([facility]) Laboratory Results Laboratory Results - last 24 hr 11/21/20 11/23/20 11/23/20 11:09 11:53 17:04 POC Glucose 147 H 146 H Total T3 99 11/23/20 11/24/20 21:15 07:58 POC Glucose 135 H 128 H Total T3 Current Inpatient Medications Current Inpatient Medications: Current Inpatient Medications Acetaminophen (Acetaminophen 325 Mg Tab) 650 mg PO Q4H PRN PRN Reason: Headache or Minor Fever Stop: 12/12/20 20:17 Al Hydrox/Mg Hydrox/Simethicone (Aluminum/Magnesium Susp 30 Ml Udc) 30 ml PO Q4H PRN PRN Reason: GI Upset Stop: 12/12/20 20:17 Aspirin (Aspirin 81 Mg Ectab) 81 mg PO DAILY ANNAMARIA Stop: 12/13/20 08:59 Last Admin: 11/23/20 09:27 Dose: 81 mg Documented by: Atorvastatin Calcium (Atorvastatin 40 Mg Tab) 40 mg PO HS ANNAMARIA Stop: 12/15/20 21:59 Last Admin: 11/23/20 21:06 Dose: 40 mg Documented by: Benztropine Mesylate (Benztropine Mesylate 1 Mg Tab) 1 mg PO HS ANNAMARIA Stop: 12/12/20 21:59 Last Admin: 11/23/20 21:06 Dose: 1 mg Documented by: Bismuth Subsalicylate (Bismuth Subsalicylate Liqd 236 Ml) 15 ml PO PRN PRN PRN Reason: Loose Stool Stop: 12/12/20 20:17 Cyanocobalamin (Cyanocobalamin 500 Mcg Tablet (Vitamin B-12)) 500 mcg PO DAILY ANNAMARIA Stop: 12/23/20 08:59 Last Admin: 11/23/20 09:27 Dose: 500 mcg Documented by: Dextrose (Dextrose 50% 50 Ml Syringe) 25 - 50 ml IV UD PRN; Protocol PRN Reason: Hypoglycemia Protocol Stop: 12/12/20 22:14 Ergocalciferol (Ergocalciferol 50,000 Units 1250 Mcg Cap) 50,000 units PO Fr@0900 ANNAMARIA Stop: 12/13/20 08:59 Last Admin: 11/20/20 08:56 Dose: 50,000 units Documented by: Fenofibrate (Fenofibrate Nanocrystallized 145 Mg Tablet) 145 mg PO QAM ANNAMARIA Stop: 12/13/20 10:59 Last Admin: 11/23/20 09:34 Dose: Not Given Documented by: Ferrous Sulfate (Ferrous Sulfate 325 Mg Tab) 325 mg PO DAILY ANNAMARIA Stop: 12/13/20 08:59 Last Admin: 11/23/20 09:28 Dose: 325 mg Documented by: Glucagon (Glucagon For Inj 1 Mg Vial) 1 mg SQ UD PRN; Protocol PRN Reason: Hypoglycemia Protocol Stop: 12/12/20 22:14 Glucose (Glucose 40% Gel 15 Gm Tube) 15 - 30 gm PO UD PRN; Protocol PRN Reason: Hypoglycemia Protocol Stop: 12/12/20 22:14 Glucose (Glucose 10 Tabs/Tube) 4 - 8 tabs PO UD PRN; Protocol PRN Reason: Hypoglycemia Protocol Stop: 12/12/20 22:14 HCTZ/Losartan Potassium (Losartan/Hctz 50/12.5mg Tab) 1 tab PO DAILY [facility] Stop: 12/13/20 08:59 Last Admin: 11/23/20 09:26 Dose: 1 tab Documented by: Hydrochlorothiazide (Hydrochlorothiazide 25 Mg Tab) 25 mg PO DAILY ANNAMARIA Stop: 12/13/20 08:59 Last Admin: 11/23/20 09:28 Dose: 25 mg Documented by: Hydroxyzine HCl (Hydroxyzine Hcl 25 Mg Tab) 50 mg PO HSZ PRN PRN Reason: Insomnia Stop: 12/12/20 20:17 Last Admin: 11/22/20 01:34 Dose: 50 mg Documented by: Hydroxyzine HCl (Hydroxyzine Hcl 25 Mg Tab) 25 mg PO Q4H PRN PRN Reason: Anxiety Stop: 12/12/20 20:17 Last Admin: 11/24/20 03:08 Dose: 25 mg Documented by: Hydroxyzine HCl (Hydroxyzine Hcl 25 Mg Tab) 25 mg PO TID [facility] Stop: 12/13/20 13:59 Last Admin: 11/23/20 21:06 Dose: 25 mg Documented by: Insulin Aspart (Insulin Aspart 100 Units/Ml 3 Ml Pen) 0 units SC ACHS [facility] Stop: 12/21/20 21:59 Last Admin: 11/23/20 21:22 Dose: 9 units Documented by: Insulin Glargine (Insulin Glargine Solostar 100 Units/Ml 3 Ml Pen) 85 units SC BID [facility]; Protocol Stop: 12/23/20 08:59 Last Admin: 11/23/20 21:07 Dose: 85 units Documented by: Lisinopril (Lisinopril 40 Mg Tab) 40 mg PO DAILY [facility] Stop: 12/13/20 08:59 Last Admin: 11/23/20 09:27 Dose: 40 mg Documented by: Magnesium Hydroxide (Magnesium Hydroxide Susp 30 Ml Udc) 30 ml PO DAILY PRN PRN Reason: Constipation Stop: 12/12/20 20:17 Methimazole (Methimazole 5 Mg Tablet) 10 mg PO DAILY [facility] Stop: 12/13/20 08:59 Last Admin: 11/23/20 09:25 Dose: 5 mg Documented by: Miscellaneous (Carbohydrates For Hypoglycemia ) 15 - 30 gm PO UD PRN PRN Reason: Hypoglycemia Treatment Stop: 12/12/20 22:14 Miscellaneous Information (Pharmacy Glycemic Mgmt Consult) 1 ea N/A UD PRN PRN Reason: Consult Stop: 12/12/20 21:41 Olanzapine (Olanzapine 10 Mg Tab) 30 mg PO HS ANNAMARIA Stop: 12/12/20 21:59 Last Admin: 11/23/20 21:06 Dose: 30 mg Documented by: Olanzapine (Olanzapine 5 Mg Tablet) 5 mg PO DAILY@1500 AN[facility] Stop: 12/13/20 14:59 Last Admin: 11/23/20 14:23 Dose: 5 mg Documented by: Prazosin HCl (Prazosin Hcl 1 Mg Cap) 1 mg PO HS ANNAMARIA Stop: 12/16/20 21:59 Last Admin: 11/23/20 21:06 Dose: 1 mg Documented by: Quetiapine Fumarate (Quetiapine Fumarate 25 Mg Tablet) 50 mg PO Q6 PRN PRN Reason: Anxiety/Agitation Stop: 12/15/20 11:59 Last Admin: 11/19/20 07:03 Dose: 50 mg Documented by: Quetiapine Fumarate (Quetiapine Fumarate 25 Mg Tablet) 50 mg PO BID@0900,1500 [facility] Stop: 12/17/20 15:29 Last Admin: 11/23/20 14:24 Dose: 50 mg Documented by: Sodium Chloride (Sodium Chloride 0.65% Na Soln 45 Ml ([place]oss)) 1 - 2 sprays NA PRN PRN PRN Reason: Nasal Dryness/Congestion Stop: 12/12/20 20:17 Zolpidem Tartrate (Zolpidem Tartrate 5 Mg Tab) 5 mg PO HS ANNAMARIA Stop: 12/20/20 21:59 Last Admin: 11/23/20 21:06 Dose: 5 mg Documented by: Mental Health & Subst Abuse Tx Psychiatrist Name of Psychiatrist: Irma Guillen Psychiatrist's Date of Appointment with Psychiatrist: 12/10/20 Time of Appointment with Psychiatrist: 11 am Psychiatric Appointment Comment: [phone] Therapist Name of Therapist: Irma Stephen Therapist's Therapy Appointment Comment: Will Call to Schedule Appointment Card Fixer Name of Card Fixer: [facility] - Kelimitul Lopezriel Phone Number for Card Fixer: [phone] Post Discharge Appointments Primary Care Physician Name Of Family Doctor: [facility] - Dr. Reece [facility] Date of Appointment with PCP: 12/15/20 Time of Appointment with PCP: 12:40 p.m. Provider Appointment Comment: Sheldon Barnett, [place] [address] Contact Information Discharge Discharge Address: [address] [place] [address], [place] [address] Contact Information Comment: [facility]
[2020-11-24] MEDS: ASPIRIN 81 MG ECTAB PO SCH (08:52)
[2020-11-24] MEDS: hydroCHLOROthiazide 25 MG TAB PO SCH (08:52)
[2020-11-24] MEDS: FERROUS SULFATE 325 MG TAB PO SCH (08:52)
[2020-11-24] MEDS: LOSARTAN/HCTZ 50/12.5MG TAB PO SCH (08:52)
[2020-11-24] MEDS: QUEtiapine FUMARATE 25 MG TABLET PO SCH ×2 (08:53→14:23)
[2020-11-24] MEDS: methIMAzole 5 MG TABLET PO SCH (08:53)
[2020-11-24] MEDS: FENOFIBRATE NANOCRYSTALLIZED 145 MG TABLET PO SCH (08:54)
[2020-11-24] MEDS: hydrOXYzine HCl 25 MG TAB PO SCH ×3 (08:54→21:18)
[2020-11-24] MEDS: CYANOCOBALAMIN 500 MCG TABLET (VITAMIN B-12) PO SCH (08:54)
[2020-11-24] MEDS: lisinopril 40 MG TAB PO SCH (08:56)
[2020-11-24] MEDS: INSULIN ASPART 100 UNITS/ML 3 ML PEN SC SCH ×4 (09:08→21:25)
[2020-11-24] MEDS: INSULIN GLARGINE SOLOSTAR 100 UNITS/ML 3 ML PEN SC SCH ×2 (09:11→21:16)
[2020-11-24] MEDS: OLANZapine 5 MG TABLET PO SCH (14:25)
[2020-11-24] MEDS: BENZTROPINE MESYLATE 1 MG TAB PO SCH (21:19)
[2020-11-24] MEDS: ATORVASTATIN 40 MG TAB PO SCH (21:19)
[2020-11-24] MEDS: ZOLPIDEM TARTRATE 5 MG TAB PO SCH (21:27)
[2020-11-24] MEDS: PRAZOSIN HCL 1 MG CAP PO SCH (21:29)
[2020-11-24] MEDS: OLANZapine 10 MG TAB PO SCH (21:29)
[2020-11-25] MEDS: hydrOXYzine HCl 25 MG TAB PO PRN (00:49)
[2020-11-25] MEDS: FERROUS SULFATE 325 MG TAB PO SCH (09:11)
[2020-11-25] MEDS: LOSARTAN/HCTZ 50/12.5MG TAB PO SCH (09:11)
[2020-11-25] MEDS: ASPIRIN 81 MG ECTAB PO SCH (09:11)
[2020-11-25] MEDS: hydroCHLOROthiazide 25 MG TAB PO SCH ×2 (09:11→09:49)
[2020-11-25] MEDS: lisinopril 40 MG TAB PO SCH (09:12)
[2020-11-25] MEDS: QUEtiapine FUMARATE 25 MG TABLET PO SCH ×2 (09:12→14:31)
[2020-11-25] MEDS: CYANOCOBALAMIN 500 MCG TABLET (VITAMIN B-12) PO SCH (09:12)
[2020-11-25] MEDS: methIMAzole 5 MG TABLET PO SCH (09:12)
[2020-11-25] MEDS: FENOFIBRATE NANOCRYSTALLIZED 145 MG TABLET PO SCH (09:12)
[2020-11-25] MEDS: hydrOXYzine HCl 25 MG TAB PO SCH ×3 (09:12→20:50)
[2020-11-25] MEDS: INSULIN ASPART 100 UNITS/ML 3 ML PEN SC SCH ×4 (09:13→19:35)
[2020-11-25] MEDS: INSULIN DETEMIR FLEXPEN/FLEX TOUCH 100 UNITS/ML 3ML SC SCH ×2 (09:22→20:48)
--- NOTE | 2020-11-25 09:36 | Pharmacy Report ---
Pharmacy Glycemic Short Note 2 - Date of Service November 25, 2020 - Glycemic Short BSG Results (Last 24 hours): 11/24/20 11/24/20 11/24/20 11:34 17:09 20:36 POC Glucose 136 H 127 H 170 H 11/25/20 08:34 POC Glucose 110 H OUTPATIENT ANTIDIABETIC REGIMEN: * Levemir 100 units SQ BID * Liraglutide 1.8 mg SQ daily * Empagliflozin 10 mg PO daily * Glipizide 10 mg PO BID * Metformin ER 500 mg PO BID HbA1c = 8.8% on 10/26/20 ASSESSMENT: 11/25 * BSGs remain reasonably well controlled, 128, 136, 127, and 170 mg/dL yesterday * Received 170 units of basal and 134 units of Novolog * Fasting BSG of 110 mg/dL this morning * Patient now refusing Lantus, but is agreeable to switching to Levemir * Will switch to Levemir at same dose of 85 units BID * Do not anticipate any additional changes needed today 11/23 * Patient refused several doses of insulin yesterday because it had been changed to a vial instead of a pen * This led to significant reduction in daily insulin dose * Will change back to pen based on patient preference * BSGs yesterday of 163, 186, 122, and 209 mg/dL * Patient received 169 units of insulin (approximately half of previous day's insulin requirement) * BSGs surprisingly look good today despite this (123 and 147 mg/dL) 11/22 * Pt has received 334 units of insulin over the past 24hrs * 175 units of basal with Lantus * 159 units of bolus with NovoLog * BSGs [phone] mg/dl * Pt asked for a snack at 0130 overnight. RN gave just a very small snack- pt refused CHO coverage. Pt does not like her BSG <110 mg/dl. Yesterday PM dose of Lantus increased slightly - will decrease back to 85 units BID to maintain BSGs >110 * Post-prandial BSGs in goal range. No changes needed to CF/CR 11/13/20 * 55 y/o F admitted for Schizophrenia. Patient with history of type 2 diabetes managed at home on 5 different anti-diabetic meds including basal insulin. * Will hold oral agents and SQ Liraglutide for admission and utilize SQ basal bolus insulin regimen which is the recommended regimen for inpatient glycemic control. * During prior admission in December 2019, patient was requiring around 70 units of basal insulin BID. However, at the time she refused most of these doses and had to be switched to oral Metformin and Glipizide. * Will trial basal 50 units BID which is a 50% decrease from home dose and Novolog for bolus insulin coverage for meals and bedtime. * Patient did refuse her Lantus 50 unit dose last night which most likely caused high BSG this AM of 206 mg/dl. * Nurse told me pt slept in late, so the breakfast coverage and Lantus dose for this AM was given late in the morning today. * So, I asked the nurse to skip the lunch BSG check and only cover carbs if pt is eating lunch as well. PLAN FOR INPATIENT GLYCEMIC CONTROL: * Hold outpatient oral diabetes medications unless patient refuses basal insulin * Basal insulin - change to Levemir * Levemir 85 units SC BID * Bolus insulin - no change * NovoLog per scale ACHS or Q6hrs while NPO * Goal Range: Low 110 mg/dL - High 140 mg/dL * Correction Factor: 6 mg/dL/unit * Nutritional / Prandial insulin per carb ratio of 1 unit per 1.5 grams CHO consumed PLAN FOR DISCHARGE: * HbA1c = 8.8% * Goal A1c is less than 7%. * A1c is not at goal but is lower now than it has been on previous admissions. * Doses of oral anti-diabetic meds could be adjusted up. However, would leave that to the outpatient provider. * As long as patient is not reporting hypoglycemia at home, would continue all of her home anti-diabetic meds on discharge and encourage compliance with them.
--- NOTE | 2020-11-25 11:23 | Psychiatric Progress Note ---
Date of Service November 25, 2020 Impression / Recommendations Impression 55-year-old woman with a known diagnosis of schizophrenia and a long history of multiple psychiatric hospitalizations who is admitted voluntarily with thoughts of killing herself, a belief that she is "unsafe" because unspecified others are trying to kill her, and worsening depression. She had not been sleeping well, and had recently been advised by her outpatient therapist that she can no longer call him between their weekly appointments, as she previously had been calling frequently. She has been started on an augmenting antipsychotic (quetiapine), as well as zolpidem and prazosin to target sleep. Pt continues to struggle with chronic paranoia and delusional thinking, but had been reporting less distress related to these thoughts. The consistency of successful reality testing is primary concern - but patient does admit to improved mood and "milder" suicidal ideation. She remains unable to contract for safety outside of the hospital, but is making some gradual improvements. (1) Schizophrenia: 11/13 -The patient has been admitted to the [facility] inpatient psychiatric unit and is being closely observed with [id number] checks every 15 minutes. She has been referred for individual, group, and recreational therapies. We also plan a family meeting with her mother, assuming the patient's willingness. -We will also continue her current outpatient medications, including olanzapine 5 mg daily (afternoons) and 30 mg at bedtime as her primary antipsychotic. -Although the patient has a past history of periodically having difficulty rakel ing a bedroom with a peer, she also has a history of doing much better when she is able to tolerate a roommate. Currently, our assessment is that the patient is able to tolerate a roommate, and this is meant to her advantage in the past because the patient likes to be able to use a roommate for purposes companionship, and also for purposes of reality testing 11/14--reviewed. continue current meds and tx plan. 11/15--patient is willing to take Seroquel prn for breakthrough symptoms. Appears less depressed but a bit tired today following prn Vistaril. Seroquel 25 mg po q 6 hr prn. 11/16--increase prn Seroquel to 50 mg po q6 hr. delusions appear ego syntonic/mood congruent but declines additional depression tx. 11/17 -continue current medications and treatment plan, reviewed labs for monitoring on an atypical antipsychotic from 10/26/2020: FLP notable for triglycerides 1119, cholesterol 254 (both are chronically elevated for at least the past 3 years), and hemoglobin A1c elevated at 8.8% (estimated average glucose 206). Although atypical antipsychotics have a risk of metabolic syndrome, patient is aware of this risk, and believes the benefits currently outweigh the risks, as her untreated psychotic symptoms cause worsening mood and suicidality, as well as inability to function. 11/18 - Continue current medication regimen - patient admitting to benefits from a ddition of quetiapine twice daily. - Reports worsened mood today, feeling more "down". Seems to be rather troubled and distracted today, though states she is not interested in discussing any of these things at present - Continue to monitor mood and severity of delusional thinking 11/19 - Continue medication regimen - patient reports struggling with increased "paranoia" today, but states she has been utilizing coping strategies, reality testing, and positive affirmations. Has been a bit more interactive with peers, though not consistently so. - Continues to require inpatient psychiatric treatment and support 11/20 - Continue current medication regimen - patient reminded of prn quetiapine availability - Ongoing paranoia/delusions - patient has been focusing on using coping skills. Encouraged to utilize group programming as a distraction from these thoughts. Continue efforts to assist with reality orientation. - Pt continues to be unable to tolerate the stress of community re-entry 11/21 -Remains variably delusionally preoccupied and seems to have longstanding illogically based thoughts and opinions about medication regimen with a tendency to prefer certain medicines over others without clear basis 11/22 -Delusional thought content remains quite distressing at times however she continues to resist consideration for antidepressant augmentation. Interestingly she reports reduction of distressing thoughts following hydroxyzine as needed suggesting significant bidirectional relationship between anxiety and power of illogical thought content. 11/23 - Ongoing delusional thought content - improved reality-testing this morning, but per patient and staff the level of distress related to these thoughts continues to be rather variable. Will continue to encourage use of effective coping strategies and promote independence with reality-testing - Continue current medication regimen - Encourage increased participation with group and recreational programming 11/24 - Pt describes herself today as "free from paranoia"; however, staff reports continued episodes of patient sharing in groups that she feels responsible for major tragedies such as 05/08. Overall level of distress related to these chronic delusions of reference seems to be reduced; however, patient is not yet able to tolerate the stress of community re-entry - Pt reported concerns with her antihypertensive regimen today, requesting to discontinue two agents and stay on lisinopril only. Reviewed with patient that recommendation is that she continue her current regimen, but changes could be discussed with her PCP if desired (scheduled for 12/15/20). Pt does have a history of refusing various ordered medications during past psychiatric admissions. 11/25 - Continue treatment plan as above - patient reports increasing confidence with reality testing, but still struggling occasionally - improvement in paranoia and severity of SI, though both are ongoing. - Continue to work with patient to promote confidence and independence with reality testing (2) Suicidal ideations: 11/13 -The patient reports that she is continuing to experience thoughts of suicide and today says that she cannot commit to safety in the community. She does say that she has no plan to physically harm herself in the hospital, and agrees to notify staff if such thoughts present themselves. -We are continuing suicide precautions with close observation. -Group therapies will focus on helping the patient improve her individual coping strategies. 11/14--reviewed. 11/15--resolved. 11/17 -patient reports suicidal thoughts have improved since admission, but are still present. She feels safe in the hospital, but not outside. 11/18 - 11/20 - Ongoing SI unable to contract for safety outside of hospital. 11/23 - Pt describes SI as "mild" today, though mood, delusions, and frustration/defeat continue to be variable and patient remains at acute risk of harm to self if discharged prematurely 11/24 - 11/25 - Denies SI today (3) Depression: 11/13 -Although the patient does have a history of recurrent episodes of depression, and although in the past she has carried diagnoses of schizoaffective disorder, but by far the most prominent set of symptoms in this case are the symptoms of schizophrenia, and depression is thought to be a separate and secondary diagnosis. -The patient, herself, feels that her depression and anxious distress are primarily related to poor sleep, and the fact that she has found that she is "terrified" of the nighta circumstance that often keeps her awake. Currently, we will offer the patient a trial of Ambien 5 mg at bedtime as needed for sleep. -Anxious distress is part of the patient's current mood. She reports that hydroxyzine ("Vistaril") helps, and says that she prefers a standing dose order of Vistaril 25 mg 3 times a day, with supplemental Vistaril dosages as needed. 11/14--reviewed. 11/15--Ambien remains effective. 11/18 - Continue as above - patient reports feeling "down" today, able to contract for safety on unit, but not outside of hospital. 11/20 - Reports ongoing depressed mood, utilizing coping skills - ongoing SI, though reported to be less severe - Unable to contract for safety outside of the hospital setting 11/21 -Discussed consideration for sedating antidepressant briefly with patient today however she declined to consider this intervention today indicating lack of need however, high-dose trazodone with smaller doses during the day might be helpful on multiple fronts for mood elevation, anxiety, sleep, and potentially could substitute for the Seroquel and avoid the antipsychotic polypharmacy. We will readdress again tomorrow. 11/22 -Reviewed patient has previously been treated with trazodone in the past. unclear if h/o daytime dosing. again this could be considered as alternative to hydroxyzine but was declined by pt again today. 11/24 - Pt reporting mood has felt rivet flunky, feeling more grateful for the housing and supports she has (4) Diabetes mellitus type 2, uncontrolled: 11/13 -Pharmacy diabetic consultation has been provided, and recommendations are being followed. The patient's blood glucose levels at admission are elevated, and several adjustments in her medication regimen have been necessary. 11/14--reviewed. 11/21 -Appreciate diabetic pharmacy follow-up and recommendations for blood sugars to remain inadequately controlled 11/23 - Pt refused HS insulin last evening, initially refused insulin this AM. Reports concern is related to feeling the vial/syringe dosing causes tachycardia, dizziness, and hot flashes. Pt is agreeable with continuing insulin if given the insulin pen form. - Pt did report desire to stop insulin if possible and switch to metformin, which she had taken in the past. We reviewed the reasons this would be inapprop riate and patient verbalized understanding. Will continue to encourage appropriate and reality-based diabetic management routine. - Appreciate ongoing assistance from glycemic pharmacists. Inventory Assets Strengths: Intelligent. Good support system. Insight into the need for her treatment. History of favorable response to medications and other forms of psychiatric treatment. Needs: Resolution of psychosis. Improved mood. Resolution of active suicidal ideations. Risk Factors Assessment Male: No : Yes Do You Have Access To A Gun?: No Health Problems: Yes Mental Health Diagnoses: Yes Substance Use Disorders: No Previous Attempt: Yes Previous Attempt; Highly Lethal: Yes Previous Attempt; Planned: Yes Previous Attempt; Didn't Tell Anyone: Yes Family History of Suicide: No Previous Psychiatric Hospitalization: Yes Hopelessness: No Smoker: No Protective Factors Assessment Hindu Beliefs: No : No Responsible for Young Children: No Employed: No Stable Relationships: Yes Supportive Family: Yes Good Rapport with Provider: Yes Absence of Any Risk Factors Above: No Interval History Identifying Information 55 yo female with schizoaffective disorder, recurrent SI and IDDM admitt on 201 commitment, well known to 3S from previous hospitalizations. Chief Complaint "I am feeling better. A bit tired." Review of Systems Notes Constitutional: reports fatigue Cardiovascular: denied Respiratory: denied Gastrointestinal: denied Neurological: denied Psychiatric: denies symptoms other than stated above Total of at least 10 systems reviewed, pertinent positives as above and in HPI. Sleep Information Total Hours of Sleep: 6.5 Sleep Comments: pt given vistaril per rn. pt on q-15 minute checks Meal Information Percent Meal Consumed - Breakfast: 100 Percent Meal Consumed - Lunch: 100 Percent Meal Consumed - Dinner: 100 Subjective Subjective Patient was seen & assessed and interval progress reviewed with treatment team. Staff report the patient continues to have episodes of increased delusional thinking and has been intermittently isolative. She reported to staff that she had been hearing voices yelling at her, and did decline to take her HS dose of Cogentin due to fear it could harm a fetus (long-standing delusion of ). Pt was seen today to assess progress since admission. Pt continues to report waxing and waning of the above concerns. She does not deny episodes of delusions, which she is now calling "night fears", but states that she believes she is more easily able to work through these thoughts. Pt admits "sometimes I think I still have a fetus in me, because I lost my second kathleen ghter. I know it's just my imagination, but sometimes I'm curious. I know that I'm not ." Pt reports she is feeling more confident with her ability to successfully reality test these thoughts. Pt continues to report frustration about her pattern of hospitalizations. We reviewed her written safety plan and discussed ways to promote using coping skills and reaching out to supports more promptly when she begins to recognize her warning signs. Pt admits to ongoing SI, but describes it as "milder." She denies other needs or concerns today. Surprisingly, the patient feels she may be ready for discharge in a few days. We discussed the importance of consistency with regard to improved symptoms and use of coping skills and desire to continue to monitor delusional thinking and patient's ability to appropriately manage these concerns. Physical Exam Psychiatric Orientation: alert, oriented x 3 and cooperative Apperance: appropriately dressed, appropriately groomed and appeared stated age Eye Contact: + fair eye contact Motor Behavior: no abnormal motor movements (observed while laying on bed) Speech: normal rate/rhythm/volume of speech Affect: + flat affect Mood: no depressed mood Thought Process: goal directed thought process and + concrete thought process Thought Content: not paranoid and no hopelessness Pt has chronic delusions, but states she has been successful at reality testing. Intermittently is convinced she is or that she is responsible for various world disasters. No preoccupied by these beliefs at time of interview. Suicidal Thoughts: denies suicidal intent; + reports suicidal thoughts (but states thoughts are "milder" and she is able to distract herself) Homicidal Thoughts: denies homicidal thoughts Hallucinations: no auditory hallucinations and no visual hallucinations Cognition: attention grossly intact and language grossly intact Estimated Intelligence: consistent with education level Insight: + fair insight level of insight does seem to vacillate at times, patient is able to articulate understanding of her condition and chronic paranoia, but then struggles to follow-through on coping strategies or reality-testing. Judgement: + fair judgement Vital Signs (Past 24 Hours) Last Vital Signs Temp 36.6 C 11/25/20 06:42 Pulse 77 11/25/20 06:43 Resp 16 11/25/20 06:42 BP 120/82 11/25/20 06:43 Pulse Ox 96 11/12/20 20:42 Results & Data ([facility]) Laboratory Results Laboratory Results - last 24 hr 0311/24/20 11/24/20 11:34 17:09 20:36 POC Glucose 136 H 127 H 170 H 11/25/20 08:34 POC Glucose 110 H Current Inpatient Medications Current Inpatient Medications: Current Inpatient Medications Acetaminophen (Acetaminophen 325 Mg Tab) 650 mg PO Q4H PRN PRN Reason: Headache or Minor Fever Stop: 12/12/20 20:17 Al Hydrox/Mg Hydrox/Simethicone (Aluminum/Magnesium Susp 30 Ml Udc) 30 ml PO Q4H PRN PRN Reason: GI Upset Stop: 12/12/20 20:17 Aspirin (Aspirin 81 Mg Ectab) 81 mg PO DAILY ANNAMARIA Stop: 12/13/20 08:59 Last Admin: 11/25/20 09:11 Dose: 81 mg Documented by: Atorvastatin Calcium (Atorvastatin 40 Mg Tab) 40 mg PO HS ANNAMARIA Stop: 12/15/20 21:59 Last Admin: 11/24/20 21:19 Dose: 40 mg Documented by: Benztropine Mesylate (Benztropine Mesylate 1 Mg Tab) 1 mg PO HS ANNAMARIA Stop: 12/12/20 21:59 Last Admin: 11/24/20 21:19 Dose: Not Given Documented by: Bismuth Subsalicylate (Bismuth Subsalicylate Liqd 236 Ml) 15 ml PO PRN PRN PRN Reason: Loose Stool Stop: 12/12/20 20:17 Cyanocobalamin (Cyanocobalamin 500 Mcg Tablet (Vitamin B-12)) 500 mcg PO DAILY ANNAMARIA Stop: 12/23/20 08:59 Last Admin: 11/25/20 09:12 Dose: 500 mcg Documented by: Dextrose (Dextrose 50% 50 Ml Syringe) 25 - 50 ml IV UD PRN; Protocol PRN Reason: Hypoglycemia Protocol Stop: 12/12/20 22:14 Ergocalciferol (Ergocalciferol 50,000 Units 1250 Mcg Cap) 50,000 units PO Fr@0900 ANNAMARIA Stop: 12/13/20 08:59 Last Admin: 11/20/20 08:56 Dose: 50,000 units Documented by: Fenofibrate (Fenofibrate Nanocrystallized 145 Mg Tablet) 145 mg PO QAM ANNAMARIA Stop: 12/13/20 10:59 Last Admin: 11/25/20 09:12 Dose: 145 mg Documented by: Ferrous Sulfate (Ferrous Sulfate 325 Mg Tab) 325 mg PO DAILY ANNAMARIA Stop: 12/13/20 08:59 Last Admin: 11/25/20 09:11 Dose: 325 mg Documented by: Glucagon (Glucagon For Inj 1 Mg Vial) 1 mg SQ UD PRN; Protocol PRN Reason: Hypoglycemia Protocol Stop: 12/12/20 22:14 Glucose (Glucose 40% Gel 15 Gm Tube) 15 - 30 gm PO UD PRN; Protocol PRN Reason: Hypoglycemia Protocol Stop: 12/12/20 22:14 Glucose (Glucose 10 Tabs/Tube) 4 - 8 tabs PO UD PRN; Protocol PRN Reason: Hypoglycemia Protocol Stop: 12/12/20 22:14 HCTZ/Losartan Potassium (Losartan/Hctz 50/12.5mg Tab) 1 tab PO DAILY ANNAMARIA Stop: 12/13/20 08:59 Last Admin: 11/25/20 09:11 Dose: 1 tab Documented by: Hydrochlorothiazide (Hydrochlorothiazide 25 Mg Tab) 25 mg PO DAILY ANNAMARIA Stop: 12/13/20 08:59 Last Admin: 11/25/20 09:49 Dose: Not Given Documented by: Hydroxyzine HCl (Hydroxyzine Hcl 25 Mg Tab) 50 mg PO HSZ PRN PRN Reason: Insomnia Stop: 12/12/20 20:17 Last Admin: 11/25/20 00:49 Dose: 50 mg Documented by: Hydroxyzine HCl (Hydroxyzine Hcl 25 Mg Tab) 25 mg PO Q4H PRN PRN Reason: Anxiety Stop: 12/12/20 20:17 Last Admin: 11/24/20 03:08 Dose: 25 mg Documented by: Hydroxyzine HCl (Hydroxyzine Hcl 25 Mg Tab) 25 mg PO TID ANNAMARIA Stop: 12/13/20 13:59 Last Admin: 11/25/20 09:12 Dose: 25 mg Documented by: Insulin Aspart (Insulin Aspart 100 Units/Ml 3 Ml Pen) 0 units SC ACHS ANNAMARIA Stop: 12/21/20 21:59 Last Admin: 11/25/20 09:13 Dose: 39 units Documented by: Insulin Detemir (Insulin Detemir Flexpen/Flex Touch 100 Units/Ml 3ml) 85 units SC BID ANNAMARIA Stop: 12/25/20 09:14 Last Admin: 11/25/20 09:22 Dose: 85 units Documented by: Lisinopril (Lisinopril 40 Mg Tab) 40 mg PO DAILY ANNAMARIA Stop: 12/13/20 08:59 Last Admin: 11/25/20 09:12 Dose: 40 mg Documented by: Magnesium Hydroxide (Magnesium Hydroxide Susp 30 Ml Udc) 30 ml PO DAILY PRN PRN Reason: Constipation Stop: 12/12/20 20:17 Methimazole (Methimazole 5 Mg Tablet) 10 mg PO DAILY ANNAMARIA Stop: 12/13/20 08:59 Last Admin: 11/25/20 09:12 Dose: 5 mg Documented by: Miscellaneous (Carbohydrates For Hypoglycemia ) 15 - 30 gm PO UD PRN PRN Reason: Hypoglycemia Treatment Stop: 12/12/20 22:14 Miscellaneous Information (Pharmacy Glycemic Mgmt Consult) 1 ea N/A UD PRN PRN Reason: Consult Stop: 12/12/20 21:41 Olanzapine (Olanzapine 10 Mg Tab) 30 mg PO HS ANNAMARIA Stop: 12/12/20 21:59 Last Admin: 11/24/20 21:29 Dose: 30 mg Documented by: Olanzapine (Olanzapine 5 Mg Tablet) 5 mg PO DAILY@1500 [facility] Stop: 12/13/20 14:59 Last Admin: 11/24/20 14:25 Dose: 5 mg Documented by: Prazosin HCl (Prazosin Hcl 1 Mg Cap) 1 mg PO HS ANNAMARIA Stop: 12/16/20 21:59 Last Admin: 11/24/20 21:29 Dose: 1 mg Documented by: Quetiapine Fumarate (Quetiapine Fumarate 25 Mg Tablet) 50 mg PO Q6 PRN PRN Reason: Anxiety/Agitation Stop: 12/15/20 11:59 Last Admin: 11/19/20 07:03 Dose: 50 mg Documented by: Quetiapine Fumarate (Quetiapine Fumarate 25 Mg Tablet) 50 mg PO BID@0900,1500 ANNAMARIA Stop: 12/17/20 15:29 Last Admin: 11/25/20 09:12 Dose: 50 mg Documented by: Sodium Chloride (Sodium Chloride 0.65% Na Soln 45 Ml (Zortman)) 1 - 2 sprays NA PRN PRN PRN Reason: Nasal Dryness/Congestion Stop: 12/12/20 20:17 Zolpidem Tartrate (Zolpidem Tartrate 5 Mg Tab) 5 mg PO HS ANNAMARIA Stop: 12/20/20 21:59 Last Admin: 11/24/20 21:27 Dose: 5 mg Documented by: Mental Health & Subst Abuse Tx Psychiatrist Name of Psychiatrist: Irma Guillen Psychiatrist's Date of Appointment with Psychiatrist: 12/10/20 Time of Appointment with Psychiatrist: 11 am Psychiatric Appointment Comment: [phone] Therapist Name of Therapist: Irma Stephen Therapist's Therapy Appointment Comment: Will Call to Schedule Appointment Supervisor Channel Process Name of Supervisor Channel Process: [employer] [facility] - Keli Martin Phone Number for Supervisor Channel Process: [phone] Post Discharge Appointments Primary Care Physician Name Of Family Doctor: [facility] - Dr. Reece [facility] Date of Appointment with PCP: 12/15/20 Time of Appointment with PCP: 12:40 p.m. Provider Appointment Comment: [address], [place] [address] Contact Information Discharge Discharge Address: [address] [place] [id number] Contact Information Comment: House [facility] Care
[2020-11-25] MEDS: OLANZapine 5 MG TABLET PO SCH (14:32)
[2020-11-25] MEDS: ATORVASTATIN 40 MG TAB PO SCH (20:50)
[2020-11-25] MEDS: OLANZapine 10 MG TAB PO SCH (20:50)
[2020-11-25] MEDS: PRAZOSIN HCL 1 MG CAP PO SCH (20:50)
[2020-11-25] MEDS: ZOLPIDEM TARTRATE 5 MG TAB PO SCH (20:50)
[2020-11-25] MEDS: BENZTROPINE MESYLATE 1 MG TAB PO SCH (20:55)
--- NOTE | 2020-11-26 09:11 | Psychiatric Progress Note ---
Date of Service November 26, 2020 Impression / Recommendations Impression 55-year-old woman with a known diagnosis of schizophrenia and a long history of multiple psychiatric hospitalizations who is admitted voluntarily with thoughts of killing herself, a belief that she is "unsafe" because unspecified others are trying to kill her, and worsening depression. She had not been sleeping well, and had recently been advised by her outpatient therapist that she can no longer call him between their weekly appointments, as she previously had been calling frequently. She has been started on an augmenting antipsychotic (quetiapine), as well as zolpidem and prazosin to target sleep. Pt continues to struggle with chronic paranoia and delusional thinking, but had been reporting less distress related to these thoughts. The consistency of successful reality testing is primary concern - but patient does admit to improved mood and "milder" suicidal ideation. She remains unable to contract for safety outside of the hospital, but is making some gradual improvements. (1) Schizophrenia: 11/13 -The patient has been admitted to the [facility] inpatient psychiatric unit and is being closely observed with tplo-ed-cfas checks every 15 minutes. She has been referred for individual, group, and recreational therapies. We also plan a family meeting with her mother, assuming the patient's willingness. -We will also continue her current outpatient medications, including olanzapine 5 mg daily (afternoons) and 30 mg at bedtime as her primary antipsychotic. -Although the patient has a past history of periodically having difficulty olya ng a bedroom with a peer, she also has a history of doing much better when she is able to tolerate a roommate. Currently, our assessment is that the patient is able to tolerate a roommate, and this is meant to her advantage in the past because the patient likes to be able to use a roommate for purposes companionship, and also for purposes of reality testing 11/14--reviewed. continue current meds and tx plan. 11/15--patient is willing to take Seroquel prn for breakthrough symptoms. Appears less depressed but a bit tired today following prn Vistaril. Seroquel 25 mg po q6 hr prn. 11/16--increase prn Seroquel to 50 mg po q6 hr. delusions appear ego syntonic/mood congruent but declines additional depression tx. 11/17 -continue current medications and treatment plan, reviewed labs for monitoring on an atypical antipsychotic from 10/26/2020: FLP notable for triglycerides 1119, cholesterol 254 (both are chronically elevated for at least the past 3 years), and hemoglobin A1c elevated at 8.8% (estimated average glucose 206). Although atypical antipsychotics have a risk of metabolic syndrome, patient is aware of this risk, and believes the benefits currently outweigh the risks, as her untreated psychotic symptoms cause worsening mood and suicidality, as well as inability to function. 11/18 - Continue current medication regimen - patient admitting to benefits from ad dition of quetiapine twice daily. - Reports worsened mood today, feeling more "down". Seems to be rather troubled and distracted today, though states she is not interested in discussing any of these things at present - Continue to monitor mood and severity of delusional thinking 11/19 - Continue medication regimen - patient reports struggling with increased "paranoia" today, but states she has been utilizing coping strategies, reality testing, and positive affirmations. Has been a bit more interactive with peers, though not consistently so. - Continues to require inpatient psychiatric treatment and support 11/20 - Continue current medication regimen - patient reminded of prn quetiapine availability - Ongoing paranoia/delusions - patient has been focusing on using coping skills. Encouraged to utilize group programming as a distraction from these thoughts. Continue efforts to assist with reality orientation. - Pt continues to be unable to tolerate the stress of community re-entry 11/21 -Remains variably delusionally preoccupied and seems to have longstanding illogically based thoughts and opinions about medication regimen with a tendency to prefer certain medicines over others without clear basis 11/22 -Delusional thought content remains quite distressing at times however she continues to resist consideration for antidepressant augmentation. Interestingly she reports reduction of distressing thoughts following hydroxyzine as needed suggesting significant bidirectional relationship between anxiety and power of illogical thought content. 11/23 - Ongoing delusional thought content - improved reality-testing this morning, but per patient and staff the level of distress related to these thoughts continues to be rather variable. Will continue to encourage use of effective coping strategies and promote independence with reality-testing - Continue current medication regimen - Encourage increased participation with group and recreational programming 11/24 - Pt describes herself today as "free from paranoia"; however, staff reports continued episodes of patient sharing in groups that she feels responsible for major tragedies such as 05/08. Overall level of distress related to these chronic delusions of reference seems to be reduced; however, patient is not yet able to tolerate the stress of community re-entry - Pt reported concerns with her antihypertensive regimen today, requesting to discontinue two agents and stay on lisinopril only. Reviewed with patient that recommendation is that she continue her current regimen, but changes could be discussed with her PCP if desired (scheduled for 12/15/20). Pt does have a history of refusing various ordered medications during past psychiatric admissions. 11/25 - 11/26 - Continue treatment plan as above - patient reports increasing confidence with reality testing, but still struggling occasionally - improvement in paranoia and severity of SI, though both are ongoing. - Continue to work with patient to promote confidence and independence with reality testing (2) Suicidal ideations: 11/13 -The patient reports that she is continuing to experience thoughts of suicide and today says that she cannot commit to safety in the community. She does say that she has no plan to physically harm herself in the hospital, and agrees to notify staff if such thoughts present themselves. -We are continuing suicide precautions with close observation. -Group therapies will focus on helping the patient improve her individual coping strategies. 11/14--reviewed. 11/15--resolved. 11/17 -patient reports suicidal thoughts have improved since admission, but are still present. She feels safe in the hospital, but not outside. 11/18 - 11/20 - Ongoing SI unable to contract for safety outside of hospital. 11/23 - Pt describes SI as "mild" today, though mood, delusions, and frustration/defeat continue to be variable and patient remains at acute risk of harm to self if discharged prematurely 11/24 - 11/26 - Denies SI today (3) Depression: 11/13 -Although the patient does have a history of recurrent episodes of depression, and although in the past she has carried diagnoses of schizoaffective disorder, but by far the most prominent set of symptoms in this case are the symptoms of schizophrenia, and depression is thought to be a separate and secondary diagnosis. -The patient, herself, feels that her depression and anxious distress are primarily related to poor sleep, and the fact that she has found that she is "terrified" of the nighta circumstance that often keeps her awake. Currently, we will offer the patient a trial of Ambien 5 mg at bedtime as needed for sleep. -Anxious distress is part of the patient's current mood. She reports that hydroxyzine ("Vistaril") helps, and says that she prefers a standing dose order of Vistaril 25 mg 3 times a day, with supplemental Vistaril dosages as needed. 11/14--reviewed. 11/15--Ambien remains effective. 11/18 - Continue as above - patient reports feeling "down" today, able to contract for safety on unit, but not outside of hospital. 11/20 - Reports ongoing depressed mood, utilizing coping skills - ongoing SI, though reported to be less severe - Unable to contract for safety outside of the hospital setting 11/21 -Discussed consideration for sedating antidepressant briefly with patient today however she declined to consider this intervention today indicating lack of need however, high-dose trazodone with smaller doses during the day might be helpful on multiple fronts for mood elevation, anxiety, sleep, and potentially could substitute for the Seroquel and avoid the antipsychotic polypharmacy. We will readdress again tomorrow. 11/22 -Reviewed patient has previously been treated with trazodone in the past. unclear if h/o daytime dosing. again this could be considered as alternative to hydroxyzine but was declined by pt again today. 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 The patient's blood glucose levels at admission are elevated, and several adjustments in her medication regimen have been necessary. 11/14--reviewed. 11/21 -Appreciate diabetic pharmacy follow-up and recommendations for blood sugars to remain inadequately controlled 11/23 - Pt refused HS insulin last evening, initially refused insulin this AM. Reports concern is related to feeling the vial/syringe dosing causes tachycardia, dizziness, and hot flashes. Pt is agreeable with continuing insulin if given the insulin pen form. - Pt did report desire to stop insulin if possible and switch to metformin, which she had taken in the past. We reviewed the reasons this would be inappropriate and patient verbalized understanding. Will continue to encourage appropriate and reality-based diabetic management routine. - Appreciate ongoing assistance from glycemic pharmacists. Inventory Assets Strengths: Intelligent. Good support system. Insight into the need for her treatment. History of favorable response to medications and other forms of psychiatric treatment. Needs: Resolution of psychosis. Improved mood. Resolution of active suicidal ideations. Risk Factors Assessment Male: No : Yes Do You Have Access To A Gun?: No Health Problems: Yes Mental Health Diagnoses: Yes Substance Use Disorders: No Previous Attempt: Yes Previous Attempt; Highly Lethal: Yes Previous Attempt; Planned: Yes Previous Attempt; Didn't Tell Anyone: Yes Family History of Suicide: No Previous Psychiatric Hospitalization: Yes Hopelessness: No Smoker: No Protective Factors Assessment Spiritism Beliefs: No : No Responsible for Young Children: No Employed: No Stable Relationships: Yes Supportive Family: Yes Good Rapport with Provider: Yes Absence of Any Risk Factors Above: No Interval History Identifying Information 55 yo female with schizoaffective disorder, recurrent SI and IDDM admitt on 201 commitment, well known to 3S from previous hospitalizations. Chief Complaint "Much better." Review of Systems Notes Constitutional: denied Cardiovascular: denied Respiratory: denied Gastrointestinal: denied Neurological: denied Psychiatric: denies symptoms other than stated above Total of at least 10 systems reviewed, pertinent positives as above and in HPI. Sleep Information Total Hours of Sleep: 6 Sleep Comments: pt given vistaril per rn. pt on q-15 minute checks Meal Information Percent Meal Consumed - Breakfast: 100 Percent Meal Consumed - Lunch: 100 Percent Meal Consumed - Dinner: 100 Subjective Subjective Patient was seen & assessed and interval progress reviewed with nursing and social work. Staff report the patient has been participating in group programming. Pt has been reporting improved mood and reduced paranoia/delusional thinking overall. Pt was seen today to assess progress since admission. Pt states she is feeling "much better." Pt reports her mood has improved overall, and she states she is feeling "200% better than I was when I came in." Pt denies suicidal thinking today. Pt denies paranoia and delusional thinking, presently and states she is benefitting from group support. Pt has completed her safety plan. She agrees she feels she is in a place that we could begin coordinating a formal discharge/transportation plan. Pt denied other needs or concerns today. Physical Exam Psychiatric Orientation: alert, oriented x 3 and cooperative (and pleasant) Apperance: appropriately dressed, appropriately groomed and appeared stated age Eye Contact: good eye contact Motor Behavior: steady gait and station and no abnormal motor movements Speech: normal rate/rhythm/volume of speech Affect: + blunted affect (mildly subdued, but does seem to be a bit brighter today) Mood: no depressed mood ("200% better") Thought Process: goal directed thought process and + concrete thought process Thought Content: reality based without delusions; no hopelessness and no worthlessness Suicidal Thoughts: denies suicidal thoughts and denies suicidal intent Homicidal Thoughts: denies homicidal thoughts Hallucinations: no auditory hallucinations and no visual hallucinations Cognition: attention grossly intact and language grossly intact Estimated Intelligence: consistent with education level Insight: + fair insight Judgement: + fair judgement Vital Signs (Past 24 Hours) Last Vital Signs Temp 36.6 C 11/26/20 06:46 Pulse 76 11/26/20 06:47 Resp 16 11/26/20 06:46 BP 122/76 11/26/20 06:47 Pulse Ox 96 11/12/20 20:42 Results & Data ([facility]) Laboratory Results Laboratory Results - last 24 hr 11/25/20 11/25/20 11/25/20 12:14 16:58 19:29 POC Glucose 104 H 116 H 145 H 11/26/20 08:48 POC Glucose 131 H Current Inpatient Medications Current Inpatient Medications: Current Inpatient Medications Acetaminophen (Acetaminophen 325 Mg Tab) 650 mg PO Q4H PRN PRN Reason: Headache or Minor Fever Stop: 12/12/20 20:17 Al Hydrox/Mg Hydrox/Simethicone (Aluminum/Magnesium Susp 30 Ml Udc) 30 ml PO Q4H PRN PRN Reason: GI Upset Stop: 12/12/20 20:17 Aspirin (Aspirin 81 Mg Ectab) 81 mg PO DAILY ANNAMARIA Stop: 12/13/20 08:59 Last Admin: 11/25/20 09:11 Dose: 81 mg Documented by: Atorvastatin Calcium (Atorvastatin 40 Mg Tab) 40 mg PO HS ANNAMARIA Stop: 12/15/20 21:59 Last Admin: 11/25/20 20:50 Dose: 40 mg Documented by: Benztropine Mesylate (Benztropine Mesylate 1 Mg Tab) 1 mg PO HS ANNAMARIA Stop: 12/12/20 21:59 Last Admin: 11/25/20 20:55 Dose: Not Given Documented by: Bismuth Subsalicylate (Bismuth Subsalicylate Liqd 236 Ml) 15 ml PO PRN PRN PRN Reason: Loose Stool Stop: 12/12/20 20:17 Cyanocobalamin (Cyanocobalamin 500 Mcg Tablet (Vitamin B-12)) 500 mcg PO DAILY ANNAMARIA Stop: 12/23/20 08:59 Last Admin: 11/25/20 09:12 Dose: 500 mcg Documented by: Dextrose (Dextrose 50% 50 Ml Syringe) 25 - 50 ml IV UD PRN; Protocol PRN Reason: Hypoglycemia Protocol Stop: 12/12/20 22:14 Ergocalciferol (Ergocalciferol 50,000 Units 1250 Mcg Cap) 50,000 units PO Fr@0900 ANNAMARIA Stop: 12/13/20 08:59 Last Admin: 11/20/20 08:56 Dose: 50,000 units Documented by: Fenofibrate (Fenofibrate Nanocrystallized 145 Mg Tablet) 145 mg PO QAM ANNAMARIA Stop: 12/13/20 10:59 Last Admin: 11/25/20 09:12 Dose: 145 mg Documented by: Ferrous Sulfate (Ferrous Sulfate 325 Mg Tab) 325 mg PO DAILY ANNAMARIA Stop: 12/13/20 08:59 Last Admin: 11/25/20 09:11 Dose: 325 mg Documented by: Glucagon (Glucagon For Inj 1 Mg Vial) 1 mg SQ UD PRN; Protocol PRN Reason: Hypoglycemia Protocol Stop: 12/12/20 22:14 Glucose (Glucose 40% Gel 15 Gm Tube) 15 - 30 gm PO UD PRN; Protocol PRN Reason: Hypoglycemia Protocol Stop: 12/12/20 22:14 Glucose (Glucose 10 Tabs/Tube) 4 - 8 tabs PO UD PRN; Protocol PRN Reason: Hypoglycemia Protocol Stop: 12/12/20 22:14 HCTZ/Losartan Potassium (Losartan/Hctz 50/12.5mg Tab) 1 tab PO DAILY ANNAMARIA Stop: 12/13/20 08:59 Last Admin: 11/25/20 09:11 Dose: 1 tab Documented by: Hydrochlorothiazide (Hydrochlorothiazide 25 Mg Tab) 25 mg PO DAILY ANNAMARIA Stop: 12/13/20 08:59 Last Admin: 11/25/20 09:49 Dose: Not Given Documented by: Hydroxyzine HCl (Hydroxyzine Hcl 25 Mg Tab) 50 mg PO HSZ PRN PRN Reason: Insomnia Stop: 12/12/20 20:17 Last Admin: 11/25/20 00:49 Dose: 50 mg Documented by: Hydroxyzine HCl (Hydroxyzine Hcl 25 Mg Tab) 25 mg PO Q4H PRN PRN Reason: Anxiety Stop: 12/12/20 20:17 Last Admin: 11/24/20 03:08 Dose: 25 mg Documented by: Hydroxyzine HCl (Hydroxyzine Hcl 25 Mg Tab) 25 mg PO TID ANNAMARIA Stop: 12/13/20 13:59 Last Admin: 11/25/20 20:50 Dose: 25 mg Documented by: Insulin Aspart (Insulin Aspart 100 Units/Ml 3 Ml Pen) 0 units SC ACHS ANNAMARIA Stop: 12/21/20 21:59 Last Admin: 11/25/20 19:35 Dose: 8 units Documented by: Insulin Detemir (Insulin Detemir Flexpen/Flex Touch 100 Units/Ml 3ml) 85 units SC BID ANNAMARIA Stop: 12/25/20 09:14 Last Admin: 11/25/20 20:48 Dose: 85 units Documented by: Lisinopril (Lisinopril 40 Mg Tab) 40 mg PO DAILY ANNAMARIA Stop: 12/13/20 08:59 Last Admin: 11/25/20 09:12 Dose: 40 mg Documented by: Magnesium Hydroxide (Magnesium Hydroxide Susp 30 Ml Udc) 30 ml PO DAILY PRN PRN Reason: Constipation Stop: 12/12/20 20:17 Methimazole (Methimazole 5 Mg Tablet) 10 mg PO DAILY ANNAMARIA Stop: 12/13/20 08:59 Last Admin: 11/25/20 09:12 Dose: 5 mg Documented by: Miscellaneous (Carbohydrates For Hypoglycemia ) 15 - 30 gm PO UD PRN PRN Reason: Hypoglycemia Treatment Stop: 12/12/20 22:14 Miscellaneous Information (Pharmacy Glycemic Mgmt Consult) 1 ea N/A UD PRN PRN Reason: Consult Stop: 12/12/20 21:41 Olanzapine (Olanzapine 10 Mg Tab) 30 mg PO HS ANNAMARIA Stop: 12/12/20 21:59 Last Admin: 11/25/20 20:50 Dose: 30 mg Documented by: Olanzapine (Olanzapine 5 Mg Tablet) 5 mg PO DAILY@1500 ANNAMARIA Stop: 12/13/20 14:59 Last Admin: 11/25/20 14:32 Dose: 5 mg Documented by: Prazosin HCl (Prazosin Hcl 1 Mg Cap) 1 mg PO HS ANNAMARIA Stop: 12/16/20 21:59 Last Admin: 11/25/20 20:50 Dose: 1 mg Documented by: Quetiapine Fumarate (Quetiapine Fumarate 25 Mg Tablet) 50 mg PO Q6 PRN PRN Reason: Anxiety/Agitation Stop: 12/15/20 11:59 Last Admin: 11/19/20 07:03 Dose: 50 mg Documented by: Quetiapine Fumarate (Quetiapine Fumarate 25 Mg Tablet) 50 mg PO BID@0900,1500 ANNAMARIA Stop: 12/17/20 15:29 Last Admin: 11/25/20 14:31 Dose: 50 mg Documented by: Sodium Chloride (Sodium Chloride 0.65% Na Soln 45 Ml ([place])) 1 - 2 sprays NA PRN PRN PRN Reason: Nasal Dryness/Congestion Stop: 12/12/20 20:17 Zolpidem Tartrate (Zolpidem Tartrate 5 Mg Tab) 5 mg PO HS ANNAMARIA Stop: 12/20/20 21:59 Last Admin: 11/25/20 20:50 Dose: 5 mg Documented by: Mental Health & Subst Abuse Tx Psychiatrist Name of Psychiatrist: Irma Guillen Psychiatrist's Date of Appointment with Psychiatrist: 12/10/20 Time of Appointment with Psychiatrist: 11 am Psychiatric Appointment Comment: [phone] Therapist Name of Therapist: Irma Stephen Therapist's Date of Therapist Appointment: 12/02/20 Time of Therapist Appointment: 10am Therapy Appointment Comment: telehealth Junior Web Developer Name of Junior Web Developer: [employer] [facility] - Keli Martin Phone Number for Junior Web Developer: [phone] Post Discharge Appointments Primary Care Physician Name Of Family Doctor: [facility] - Dr. Reece [facility] Date of Appointment with PCP: 12/15/20 Time of Appointment with PCP: 12:40 p.m. Provider Appointment Comment: Sheldon Barnett, [place] [address] Contact Information Discharge Discharge Address: [address] [place] [address], [place] [address] Contact Information Comment: House of Care
[2020-11-26] MEDS: ASPIRIN 81 MG ECTAB PO SCH (09:17)
[2020-11-26] MEDS: FERROUS SULFATE 325 MG TAB PO SCH (09:18)
[2020-11-26] MEDS: LOSARTAN/HCTZ 50/12.5MG TAB PO SCH (09:19)
[2020-11-26] MEDS: methIMAzole 5 MG TABLET PO SCH (09:19)
[2020-11-26] MEDS: QUEtiapine FUMARATE 25 MG TABLET PO SCH ×2 (09:19→14:25)
[2020-11-26] MEDS: hydrOXYzine HCl 25 MG TAB PO SCH ×3 (09:20→20:43)
[2020-11-26] MEDS: FENOFIBRATE NANOCRYSTALLIZED 145 MG TABLET PO SCH (09:20)
[2020-11-26] MEDS: CYANOCOBALAMIN 500 MCG TABLET (VITAMIN B-12) PO SCH (09:21)
[2020-11-26] MEDS: lisinopril 40 MG TAB PO SCH (09:21)
[2020-11-26] MEDS: hydroCHLOROthiazide 25 MG TAB PO SCH (09:28)
[2020-11-26] MEDS: INSULIN DETEMIR FLEXPEN/FLEX TOUCH 100 UNITS/ML 3ML SC SCH ×2 (09:29→20:40)
[2020-11-26] MEDS: INSULIN ASPART 100 UNITS/ML 3 ML PEN SC SCH ×4 (09:32→20:44)
[2020-11-26] MEDS: OLANZapine 5 MG TABLET PO SCH (14:25)
[2020-11-26] MEDS: hydrOXYzine HCl 25 MG TAB PO PRN (19:05)
[2020-11-26] MEDS: ZOLPIDEM TARTRATE 5 MG TAB PO SCH (20:43)
[2020-11-26] MEDS: PRAZOSIN HCL 1 MG CAP PO SCH (20:43)
[2020-11-26] MEDS: BENZTROPINE MESYLATE 1 MG TAB PO SCH (20:43)
[2020-11-26] MEDS: ATORVASTATIN 40 MG TAB PO SCH (20:43)
[2020-11-26] MEDS: OLANZapine 10 MG TAB PO SCH (20:43)
[2020-11-27] MEDS: hydrOXYzine HCl 25 MG TAB PO PRN (02:32)
[2020-11-27] MEDS: LOSARTAN/HCTZ 50/12.5MG TAB PO SCH (09:15)
[2020-11-27] MEDS: ERGOCALCIFEROL 50,000 UNITS 1250 MCG CAP PO SCH (09:15)
[2020-11-27] MEDS: methIMAzole 5 MG TABLET PO SCH (09:15)
[2020-11-27] MEDS: ASPIRIN 81 MG ECTAB PO SCH (09:15)
[2020-11-27] MEDS: CYANOCOBALAMIN 500 MCG TABLET (VITAMIN B-12) PO SCH (09:15)
[2020-11-27] MEDS: QUEtiapine FUMARATE 25 MG TABLET PO SCH ×2 (09:16→14:20)
[2020-11-27] MEDS: FENOFIBRATE NANOCRYSTALLIZED 145 MG TABLET PO SCH (09:16)
[2020-11-27] MEDS: hydrOXYzine HCl 25 MG TAB PO SCH ×2 (09:16→14:20)
[2020-11-27] MEDS: lisinopril 40 MG TAB PO SCH (09:16)
[2020-11-27] MEDS: FERROUS SULFATE 325 MG TAB PO SCH (09:17)
[2020-11-27] MEDS: hydroCHLOROthiazide 25 MG TAB PO SCH (09:22)
[2020-11-27] MEDS: INSULIN ASPART 100 UNITS/ML 3 ML PEN SC SCH ×2 (09:26→13:10)
[2020-11-27] MEDS: INSULIN DETEMIR FLEXPEN/FLEX TOUCH 100 UNITS/ML 3ML SC SCH (09:27)
--- NOTE | 2020-11-27 09:33 | Discharge Summary ---
Date of Service November 27, 2020 History of Present Illness The patient is a 55-year-old woman with a long psychiatric history and a known diagnosis of schizophrenia. She has had several previous admissions to the behavioral health unit at [facility] and has now been readmitted through the emergency department where she presented and complained of not feeling safe at home (a assisted in [facility]), depressed mood, and intensifying thoughts of suicide, within the context of multiple past suicide attempts. The patient identifies no particular precipitant, but does note that she does not feel safe in her assisted at night during the usual hours of sleep. She explains that she awakens in the night, and experiences the sensation of electric currents running through her, strange sounds emanating from various locations in the bedroom, and a terrifying believe that she is about to be put to by an assessment because, among other things, it has become known that she is responsible for [employer] in [place] more than 20 years ago. The patient adds that within this context she has been feeling progressively more depressed and suicidal. The patient also adds that she tends to feel safe during the day at her assisted, and the problem is primarily at night. She notes that she takes Zyprexa (olanzapine) and finds that to be quite helpful to her. Specifically, she reports that it helps her think more clearly and "more rationally." Ms. Marrero also acknowledges that she has a history of periodically stopping her psychiatric medications, as well as her nonpsychiatric medications, usually of a believe that the medications are causing her physical harm and/or causing harm to her "baby," having reference to a periodic belief that she is . The patient notes that she has a good relationship with her therapist and with her psychiatrist, but that neither are available to talk to her between appointments, and so she relies on communications with her case assistant, the assisted staff, and sometimes with her mother, a retired [employer] professor who lives nearby. Ms. Marrero reports full adherence with her prescribed medications and notes that the staff at the assisted hold hold her medications, and then supervise her while she self medicates. She reports that her symptoms of depression include depressed mood, apathy, anhedonia, initial and intermittent insomnia, and anergia. Physical Exam Psychiatric Orientation: alert, oriented x 3 and cooperative (pleasant and appreciative ) Apperance: appropriately dressed, appropriately groomed and appeared stated age Eye Contact: good eye contact Motor Behavior: steady gait and station and no abnormal motor movements Speech: normal rate/rhythm/volume of speech Affect: euthymic affect (still mildly subdued, but smiling more and appearing brighter) Mood: no depressed mood and no anxious mood "Much, much better" Thought Process: goal directed thought process and clear/coherent thought process Thought Content: reality based without delusions (does not verbalize any delusional thought content); no hopelessness and no worthlessness Suicidal Thoughts: denies suicidal thoughts, denies suicidal plan and denies suicidal intent Homicidal Thoughts: denies homicidal thoughts Hallucinations: no auditory hallucinations and no visual hallucinations Cognition: attention grossly intact and language grossly intact Estimated Intelligence: consistent with education level Insight: + fair insight Judgement: + fair judgement Vital Signs (Past 24 Hours) Last Vital Signs Temp 36.5 C 11/27/20 06:50 Pulse 76 11/27/20 06:51 Resp 16 11/27/20 06:50 BP 122/78 11/27/20 06:51 Pulse Ox 96 11/12/20 20:42 Principal Diagnosis - Schizophrenia - Depression, NOS - Diabetes mellitus type II, insulin dependent Psychiatric Data See "Hospital Course" Section below for daily care summary: 55-year-old female admitted voluntarily for inpatient psychiatric treatment on 11/12/20 after presenting to the ED with worsening depression and guilt in the setting of long-standing history of delusional thought content. Pt is well- known to our unit from several past admissions and has a known diagnosis of schizophrenia. At time of presentation, the patient reported feeling that she is "unsafe" because unspecified others are trying to kill her, she also routinely verbalizes immense guilt related to feeling she has caused tragedies such as 05/08, the of [employer] Al[employer], or various bombings. She reported that she had not been sleeping well, and stated that she had recently been advised by her outpatient therapist that she can no longer call him between their weekly appointments, as this was becoming a concern. Her home medication regimen was continued - olanzapine 5mg each afternoon and 30mg qHS and well as benztropine. She has been started on an augmenting antipsychotic (quetiapine), as well as zolpidem and prazosin to target sleep. Pt tolerated these medication changes and did find the quetiapine helpful for residual anxiety/paranoia. Pt continues to struggle with chronic paranoia and delusional thinking, but this was progressively less distressing as her stay progressed. Pt reported improvement in her mood and resolution of SI. She engaged with group programming and sought staff assistance with reality-testing. At time of discharge, patient reported feeling confident with ability to utilize outpatient resources appropriate for support and felt ready for discharge. Care was coordinated with [facility], a personal fpc where patient will return when discharge. Outpatient appointments with established psychiatric professionals were confirmed. Based on review of patient's case and their current presentation, risk of harm to self or others is no longer perceived to be acute. Management of symptoms on an outpatient basis seems the most appropriate and least restrictive setting. Pt seems appropriate for discharge with recommendation for consistent follow-up with outpatient psychiatric prescriber, therapist and case assistant. Pt verbalized understanding of discharge plan reviewed and is agreeable with plan to be discharged home today, transportation to be provided by her mother. Day of Discharge Assessment Patient's case was reviewed and discussed during treatment team. Staff report the patient continues to do well, reporting less paranoia and far less distressed by delusional thoughts which are long-standing. Pt worked with staff to arrange transportation back to [facility] this afternoon. Pt continues to deny SI. Pt was seen today to assess readiness for discharge. Pt states she is doing well - "Better and better." She states that she feels she has benefitted a lot from her stay and reports "I feel like we've done a lot of good work." Pt admits "I still have my problems, but not ones I can't cope with." Pt does request to change HS Ambien to only as needed, as she does not feel she will require it as frequently once she returns home. She is able to verbalize several supports she feels she can reach out to and did review her written safety plan with this provider prior to discharge. Pt states that her new goal is to try to stay out of the hospital for a year, as she admits she is seeing a pattern of needing a hospitalization about every 6 months for stabilization of mental health symptoms. We reviewed practical ways patient can attain this goal, primarily by reaching out to support sooner than she might normally when she begins to observe warning signs of worsening mood or increased paranoia. Pt seemed motivated to make changes that would allow her to reach this goal. Medication list was reviewed with patient directly and aftercare appointment schedule was discussed. Pt denied other needs or concerns and reports feeling as though her treatment goals have been met. Pt will be [facility] afternoon, with transportation being provided by her mother. ROS: Constitutional: denied Cardiovascular: denied Respiratory: denied Gastrointestinal: denied Neurological: denied Psychiatric: denies symptoms other than stated above Total of at least 10 systems reviewed, pertinent positives as above and in HPI. Transition of Care Transition Of Care Record: was reviewed with the patient Advance Directives Advance Directives Information Provided: Yes Advance Directives: No Mental Health Advance Directive: No Advance Directives on File: No Living Will: No Power of Lace Paper Machine Operator: No Advance Directives Reason:: Declines as Mental Health Visit. Risk Factors Assessment Presenting risk factors reviewed on discharge. Precipitating stressors mitigated by: admission for inpatient psychiatric observation and treatment, appropriate adjustments to medications to target symptoms, attendance of therapeutic treatment groups, development of healthy and effective coping strategies, involvement of outpatient supports, completion of a safety plan, treatment of medical conditions and education on diagnoses. Pt has demonstrated improvement in condition with regard to resolution of SI, improvement in mood, improved confidence in reality-testing long-standing delusional thought content, overall improvement in level of distress, reinforcement of healthy coping strategies, involvement of outpatient supports and completion of a safety plan. At this time, patient is requesting discharge and is no longer considered to be at acute risk of harm to herself or others. Pt will be discharged with recommendation for ongoing outpatient psychiatric treatment. Pt does have a long-standing history of intermittent need for inpatient hospitalization - she remains at chronically elevated risk of self-harm compared to the general population, but demonstrates ability to reach out to supports when in crisis. She is likely to continue to require intermittent hospitalizations related to her mental health history, but is hopeful to increase the time in between her admissions. Male: No : Yes Do You Have Access To A Gun?: No Health Problems: Yes Mental Health Diagnoses: Yes Substance Use Disorders: No Previous Attempt: Yes Previous Attempt; Highly Lethal: Yes Previous Attempt; Planned: Yes Previous Attempt; Didn't Tell Anyone: Yes Family History of Suicide: No Previous Psychiatric Hospitalization: Yes Hopelessness: No Smoker: No Protective Factors Assessment Rastafarian Beliefs: No : No Responsible for Young Children: No Employed: No Stable Relationships: Yes Supportive Family: Yes Good Rapport with Provider: Yes Absence of Any Risk Factors Above: No Tobacco Cessation at Discharge Tobacco Cessation Medication Prescribed at Discharge: Not Applicable/Non-Smoker Antipsychotic Medications Pt is being discharged on two atypical antipsychotic medications, in accordance with most recent effective psychotropic medication regimen. Reasoning for this decision is based on history of at least 3 failed trials monotherapy, quetiapine has provided an added relief of anxiety caused by chronic paranoia/delusional thinking. Total Time Total Time Spent: Greater Than 30 Minutes Total Time Includes: Examination of the patient, Discharge Planning, Medication Reconciliation and Communication with other providers Discharge Data Lab Results 11/12/20 11/12/20 11/12/20 15:38 15:38 15:38 WBC RBC Hgb Hct MCV MCH MCHC RDW Std Deviation RDW Coeff of Abel Plt Count MPV Immature Gran % (Auto) Neut % (Auto) Lymph % (Auto) Vernon % (Auto) Eos % (Auto) Baso % (Auto) Neut # (Auto) Lymph # (Auto) Vernon # (Auto) Eos # (Auto) Baso # (Auto) Immature Gran # (Auto) Sodium Potassium Chloride Carbon Dioxide Anion Gap BUN Creatinine Est Cr Clr Drug Dosing Est GFR ( Amer) Est GFR (Non-Af Amer) BUN/Creatinine Ratio Glucose POC Glucose Estimat Average Glucose Hemoglobin A1c Calcium Total Bilirubin AST ALT Alkaline Phosphatase Total Protein Albumin Globulin Albumin/Globulin Ratio Beta-Hydroxybutyric Acd TSH Free T4 Total T3 Urine Color Yellow Urine Appearance Cloudy A Urine pH 5.0 Ur Specific [place] 1.045 H Urine Protein Negative Urine Glucose (UA) 3+ H Urine Ketones Negative Urine Blood Negative Urine Nitrite Negative Urine Bilirubin Negative Urine Urobilinogen Negative Ur Leukocyte Esterase 1+ H Urine WBC (Auto) >30 H Urine RBC (Auto) 0-4 U Hyaline Cast (Auto) 1-5 U Epithel Cells (Auto) >30 H Urine Bacteria (Auto) 1+ H POC Ur Test NEG Salicylates Urine Opiates Screen Neg Ur Methadone, Qual Neg Acetaminophen Urine Barbiturates Neg Ur Phencyclidine (PCP) Neg U Amphetamin/Meth Scrn Neg MDMA (Ecstasy) Screen Neg U Benzodiazepines Scrn Neg Ur Cocaine Metabolite Neg U Marijuana (THC) Screen Neg Ethyl Alcohol mg/dL Hepatitis C Ab Screen SARS-CoV-2 Ag (Rapid) 11/12/20 11/12/20 11/12/20 16:03 16:18 16:18 WBC 11.95 H RBC 5.82 H Hgb 15.3 Hct 44.8 MCV 77.0 L MCH 26.3 MCHC 34.2 RDW Std Deviation 39.8 RDW Coeff of Abel 14.2 Plt Count 311 MPV 8.7 Immature Gran % (Auto) 0.3 Neut % (Auto) 62.6 Lymph % (Auto) 27.9 Vernon % (Auto) 6.9 Eos % (Auto) 2.0 Baso % (Auto) 0.3 Neut # (Auto) 7.48 H Lymph # (Auto) 3.33 Vernon # (Auto) 0.82 H Eos # (Auto) 0.24 Baso # (Auto) 0.04 Immature Gran # (Auto) 0.04 H Sodium 135 L Potassium 3.3 L Chloride 101 Carbon Dioxide 23 Anion Gap 12.0 H BUN 16 Creatinine 1.13 Est Cr Clr Drug Dosing 58.8 Est GFR ( Amer) 63.4 Est GFR (Non-Af Amer) 54.7 BUN/Creatinine Ratio 14.0 Glucose 314 H* POC Glucose Estimat Average Glucose Hemoglobin A1c Calcium 9.9 Total Bilirubin 0.4 AST 16 ALT 41 Alkaline Phosphatase 170 H Total Protein 7.3 Albumin 3.7 Globulin 3.6 Albumin/Globulin Ratio 1.0 Beta-Hydroxybutyric Acd 1.38 TSH 0.412 Free T4 Total T3 Urine Color Urine Appearance Urine pH Ur Specific [place] Urine Protein Urine Glucose (UA) Urine Ketones Urine Blood Urine Nitrite Urine Bilirubin Urine Urobilinogen Ur Leukocyte Esterase Urine WBC (Auto) Urine RBC (Auto) U Hyaline Cast (Auto) U Epithel Cells (Auto) Urine Bacteria (Auto) POC Ur Test Salicylates Urine Opiates Screen Ur Methadone, Qual Acetaminophen Urine Barbiturates Ur Phencyclidine (PCP) U Amphetamin/Meth Scrn MDMA (Ecstasy) Screen U Benzodiazepines Scrn Ur Cocaine Metabolite U Marijuana (THC) Screen Ethyl Alcohol mg/dL Hepatitis C Ab Screen SARS-CoV-2 Ag (Rapid) Negative 11/12/20 11/12/20 11/12/20 16:18 16:18 16:18 WBC RBC Hgb Hct MCV MCH MCHC RDW Std Deviation RDW Coeff of Abel Plt Count MPV Immature Gran % (Auto) Neut % (Auto) Lymph % (Auto) Vernon % (Auto) Eos % (Auto) Baso % (Auto) Neut # (Auto) Lymph # (Auto) Vernon # (Auto) Eos # (Auto) Baso # (Auto) Immature Gran # (Auto) Sodium Potassium Chloride Carbon Dioxide Anion Gap BUN Creatinine Est Cr Clr Drug Dosing Est GFR ( Amer) Est GFR (Non-Af Amer) BUN/Creatinine Ratio Glucose POC Glucose Estimat Average Glucose 212 Hemoglobin A1c 9.0 H Calcium Total Bilirubin AST ALT Alkaline Phosphatase Total Protein Albumin Globulin Albumin/Globulin Ratio Beta-Hydroxybutyric Acd TSH Free T4 Total T3 Urine Color Urine Appearance Urine pH Ur Specific [place] Urine Protein Urine Glucose (UA) Urine Ketones Urine Blood Urine Nitrite Urine Bilirubin Urine Urobilinogen Ur Leukocyte Esterase Urine WBC (Auto) Urine RBC (Auto) U Hyaline Cast (Auto) U Epithel Cells (Auto) Urine Bacteria (Auto) POC Ur Test Salicylates < 1.7 L Urine Opiates Screen Ur Methadone, Qual Acetaminophen < 2 L Urine Barbiturates Ur Phencyclidine (PCP) U Amphetamin/Meth Scrn MDMA (Ecstasy) Screen U Benzodiazepines Scrn Ur Cocaine Metabolite U Marijuana (THC) Screen Ethyl Alcohol mg/dL < 3.0 Hepatitis C Ab Screen SARS-CoV-2 Ag (Rapid) 11/12/20 11/12/20 11/12/20 16:18 18:10 19:23 WBC RBC Hgb Hct MCV MCH MCHC RDW Std Deviation RDW Coeff of Abel Plt Count MPV Immature Gran % (Auto) Neut % (Auto) Lymph % (Auto) Vernon % (Auto) Eos % (Auto) Baso % (Auto) Neut # (Auto) Lymph # (Auto) Vernon # (Auto) Eos # (Auto) Baso # (Auto) Immature Gran # (Auto) Sodium Potassium Chloride Carbon Dioxide Anion Gap BUN Creatinine Est Cr Clr Drug Dosing Est GFR ( Amer) Est GFR (Non-Af Amer) BUN/Creatinine Ratio Glucose POC Glucose 249 H 180 H Estimat Average Glucose Hemoglobin A1c Calcium Total Bilirubin AST ALT Alkaline Phosphatase Total Protein Albumin Globulin Albumin/Globulin Ratio Beta-Hydroxybutyric Acd TSH Free T4 Total T3 Urine Color Urine Appearance Urine pH Ur Specific [place] Urine Protein Urine Glucose (UA) Urine Ketones Urine Blood Urine Nitrite Urine Bilirubin Urine Urobilinogen Ur Leukocyte Esterase Urine WBC (Auto) Urine RBC (Auto) U Hyaline Cast (Auto) U Epithel Cells (Auto) Urine Bacteria (Auto) POC Ur Test Salicylates Urine Opiates Screen Ur Methadone, Qual Acetaminophen Urine Barbiturates Ur Phencyclidine (PCP) U Amphetamin/Meth Scrn MDMA (Ecstasy) Screen U Benzodiazepines Scrn Ur Cocaine Metabolite U Marijuana (THC) Screen Ethyl Alcohol mg/dL Hepatitis C Ab Screen Neg SARS-CoV-2 Ag (Rapid) 11/13/20 11/13/20 11/13/20 01:08 10:20 13:26 WBC RBC Hgb Hct MCV MCH MCHC RDW Std Deviation RDW Coeff of Abel Plt Count MPV Immature Gran % (Auto) Neut % (Auto) Lymph % (Auto) Vernon % (Auto) Eos % (Auto) Baso % (Auto) Neut # (Auto) Lymph # (Auto) [place] # (Auto) Eos # (Auto) Baso # (Auto) Immature Gran # (Auto) Sodium Potassium Chloride Carbon Dioxide Anion Gap BUN Creatinine Est Cr Clr Drug Dosing Est GFR ( Amer) Est GFR (Non-Af Amer) BUN/Creatinine Ratio Glucose POC Glucose 227 H 206 H 215 H Estimat Average Glucose Hemoglobin A1c Calcium Total Bilirubin AST ALT Alkaline Phosphatase Total Protein Albumin Globulin Albumin/Globulin Ratio Beta-Hydroxybutyric Acd TSH Free T4 Total T3 Urine Color Urine Appearance Urine pH Ur Specific [place] Urine Protein Urine Glucose (UA) Urine Ketones Urine Blood Urine Nitrite Urine Bilirubin Urine Urobilinogen Ur Leukocyte Esterase Urine WBC (Auto) Urine RBC (Auto) U Hyaline Cast (Auto) U Epithel Cells (Auto) Urine Bacteria (Auto) POC Ur Test Salicylates Urine Opiates Screen Ur Methadone, Qual Acetaminophen Urine Barbiturates Ur Phencyclidine (PCP) U Amphetamin/Meth Scrn MDMA (Ecstasy) Screen U Benzodiazepines Scrn Ur Cocaine Metabolite U Marijuana (THC) Screen Ethyl Alcohol mg/dL Hepatitis C Ab Screen SARS-CoV-2 Ag (Rapid) 11/13/20 11/13/20 11/14/20 16:30 19:49 08:36 WBC RBC Hgb Hct MCV MCH MCHC RDW Std Deviation RDW Coeff of Abel Plt Count MPV Immature Gran % (Auto) Neut % (Auto) Lymph % (Auto) [place] % (Auto) Eos % (Auto) Baso % (Auto) Neut # (Auto) Lymph # (Auto) [place] # (Auto) Eos # (Auto) Baso # (Auto) Immature Gran # (Auto) Sodium Potassium Chloride Carbon Dioxide Anion Gap BUN Creatinine Est Cr Clr Drug Dosing Est GFR ( Amer) Est GFR (Non-Af Amer) BUN/Creatinine Ratio Glucose POC Glucose 198 H 247 H 182 H Estimat Average Glucose Hemoglobin A1c Calcium Total Bilirubin AST ALT Alkaline Phosphatase Total Protein Albumin Globulin Albumin/Globulin Ratio Beta-Hydroxybutyric Acd TSH Free T4 Total T3 Urine Color Urine Appearance Urine pH Ur Specific [place] Urine Protein Urine Glucose (UA) Urine Ketones Urine Blood Urine Nitrite Urine Bilirubin Urine Urobilinogen Ur Leukocyte Esterase Urine WBC (Auto) Urine RBC (Auto) U Hyaline Cast (Auto) U Epithel Cells (Auto) Urine Bacteria (Auto) POC Ur Test Salicylates Urine Opiates Screen Ur Methadone, Qual Acetaminophen Urine Barbiturates Ur Phencyclidine (PCP) U Amphetamin/Meth Scrn MDMA (Ecstasy) Screen U Benzodiazepines Scrn Ur Cocaine Metabolite U Marijuana (THC) Screen Ethyl Alcohol mg/dL Hepatitis C Ab Screen SARS-CoV-2 Ag (Rapid) 11/14/20 11/14/20 11/14/20 12:30 17:06 19:31 WBC RBC Hgb Hct MCV MCH MCHC RDW Std Deviation RDW Coeff of Abel Plt Count MPV Immature Gran % (Auto) Neut % (Auto) Lymph % (Auto) [place] % (Auto) Eos % (Auto) Baso % (Auto) Neut # (Auto) Lymph # (Auto) [place] # (Auto) Eos # (Auto) Baso # (Auto) Immature Gran # (Auto) Sodium Potassium Chloride Carbon Dioxide Anion Gap BUN Creatinine Est Cr Clr Drug Dosing Est GFR ( Amer) Est GFR (Non-Af Amer) BUN/Creatinine Ratio Glucose POC Glucose 206 H 202 H 194 H Estimat Average Glucose Hemoglobin A1c Calcium Total Bilirubin AST ALT Alkaline Phosphatase Total Protein Albumin Globulin Albumin/Globulin Ratio Beta-Hydroxybutyric Acd TSH Free T4 Total T3 Urine Color Urine Appearance Urine pH Ur Specific [place] Urine Protein Urine Glucose (UA) Urine Ketones Urine Blood Urine Nitrite Urine Bilirubin Urine Urobilinogen Ur Leukocyte Esterase Urine WBC (Auto) Urine RBC (Auto) U Hyaline Cast (Auto) U Epithel Cells (Auto) Urine Bacteria (Auto) POC Ur Test Salicylates Urine Opiates Screen Ur Methadone, Qual Acetaminophen Urine Barbiturates Ur Phencyclidine (PCP) U Amphetamin/Meth Scrn MDMA (Ecstasy) Screen U Benzodiazepines Scrn Ur Cocaine Metabolite U Marijuana (THC) Screen Ethyl Alcohol mg/dL Hepatitis C Ab Screen SARS-CoV-2 Ag (Rapid) 11/14/20 11/15/20 11/15/20 Unknown 08:28 12:27 WBC RBC Hgb Hct MCV MCH MCHC RDW Std Deviation RDW Coeff of Abel Plt Count MPV Immature Gran % (Auto) Neut % (Auto) Lymph % (Auto) [place] % (Auto) Eos % (Auto) Baso % (Auto) Neut # (Auto) Lymph # (Auto) [place] # (Auto) Eos # (Auto) Baso # (Auto) Immature Gran # (Auto) Sodium Potassium Chloride Carbon Dioxide Anion Gap BUN Creatinine Est Cr Clr Drug Dosing Est GFR ( Amer) Est GFR (Non-Af Amer) BUN/Creatinine Ratio Glucose POC Glucose 211 H 167 H Estimat Average Glucose Hemoglobin A1c Calcium Total Bilirubin AST ALT Alkaline Phosphatase Total Protein Albumin Globulin Albumin/Globulin Ratio Beta-Hydroxybutyric Acd TSH Free T4 Total T3 Urine Color Yellow Urine Appearance Clear Urine pH 5.0 Ur Specific [place] 1.023 Urine Protein Negative Urine Glucose (UA) 2+ H Urine Ketones Negative Urine Blood Negative Urine Nitrite Negative Urine Bilirubin Negative Urine Urobilinogen Negative Ur Leukocyte Esterase 2+ H Urine WBC (Auto) 10-30 H Urine RBC (Auto) 0-4 U Hyaline Cast (Auto) 1-5 U Epithel Cells (Auto) >30 H Urine Bacteria (Auto) Negative POC Ur Test Salicylates Urine Opiates Screen Ur Methadone, Qual Acetaminophen Urine Barbiturates Ur Phencyclidine (PCP) U Amphetamin/Meth Scrn MDMA (Ecstasy) Screen U Benzodiazepines Scrn Ur Cocaine Metabolite U Marijuana (THC) Screen Ethyl Alcohol mg/dL Hepatitis C Ab Screen SARS-CoV-2 Ag (Rapid) 11/15/20 11/15/20 11/16/20 17:08 19:50 07:31 WBC RBC Hgb Hct MCV MCH MCHC RDW Std Deviation RDW Coeff of Abel Plt Count MPV Immature Gran % (Auto) Neut % (Auto) Lymph % (Auto) Vernon % (Auto) Eos % (Auto) Baso % (Auto) Neut # (Auto) Lymph # (Auto) [place] # (Auto) Eos # (Auto) Baso # (Auto) Immature Gran # (Auto) Sodium Potassium Chloride Carbon Dioxide Anion Gap BUN Creatinine Est Cr Clr Drug Dosing Est GFR ( Amer) Est GFR (Non-Af Amer) BUN/Creatinine Ratio Glucose POC Glucose 173 H 209 H 175 H Estimat Average Glucose Hemoglobin A1c Calcium Total Bilirubin AST ALT Alkaline Phosphatase Total Protein Albumin Globulin Albumin/Globulin Ratio Beta-Hydroxybutyric Acd TSH Free T4 Total T3 Urine Color Urine Appearance Urine pH Ur Specific [place] Urine Protein Urine Glucose (UA) Urine Ketones Urine Blood Urine Nitrite Urine Bilirubin Urine Urobilinogen Ur Leukocyte Esterase Urine WBC (Auto) Urine RBC (Auto) U Hyaline Cast (Auto) U Epithel Cells (Auto) Urine Bacteria (Auto) POC Ur Test Salicylates Urine Opiates Screen Ur Methadone, Qual Acetaminophen Urine Barbiturates Ur Phencyclidine (PCP) U Amphetamin/Meth Scrn MDMA (Ecstasy) Screen U Benzodiazepines Scrn Ur Cocaine Metabolite U Marijuana (THC) Screen Ethyl Alcohol mg/dL Hepatitis C Ab Screen SARS-CoV-2 Ag (Rapid) 11/16/20 11/16/20 11/16/20 12:19 17:16 19:57 WBC RBC Hgb Hct MCV MCH MCHC RDW Std Deviation RDW Coeff of Abel Plt Count MPV Immature Gran % (Auto) Neut % (Auto) Lymph % (Auto) [place] % (Auto) Eos % (Auto) Baso % (Auto) Neut # (Auto) Lymph # (Auto) [place] # (Auto) Eos # (Auto) Baso # (Auto) Immature Gran # (Auto) Sodium Potassium Chloride Carbon Dioxide Anion Gap BUN Creatinine Est Cr Clr Drug Dosing Est GFR ( Amer) Est GFR (Non-Af Amer) BUN/Creatinine Ratio Glucose POC Glucose 153 H 209 H 232 H Estimat Average Glucose Hemoglobin A1c Calcium Total Bilirubin AST ALT Alkaline Phosphatase Total Protein Albumin Globulin Albumin/Globulin Ratio Beta-Hydroxybutyric Acd TSH Free T4 Total T3 Urine Color Urine Appearance Urine pH Ur Specific [place] Urine Protein Urine Glucose (UA) Urine Ketones Urine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 reported concerns with her antihypertensive regimen today, requesting to discontinue two agents and stay on lisinopril only. Reviewed with patient that recommendation is that she continue her current regimen, but changes could be discussed with her PCP if desired (scheduled for 12/15/20). Pt does have a history of refusing various ordered medications during past psychiatric admissions. 11/25 - 11/26 - Continue treatment plan as above - patient reports increasing confidence with reality testing, but still struggling occasionally - improvement in paranoia and severity of SI, though both are ongoing. - Continue to work with patient to promote confidence and independence with reality testing (2) Suicidal ideations: 11/13 -The patient reports that she is continuing to experience thoughts of suicide and today says that she cannot commit to safety in the community. She does say that she has no plan to physically harm herself in the hospital, and agrees to notify staff if such thoughts present themselves. -We are continuing suicide precautions with close observation. -Group therapies will focus on helping the patient improve her individual coping strategies. 11/14--reviewed. 11/15--resolved. 11/17 -patient reports suicidal thoughts have improved since admission, but are still present. She feels safe in the hospital, but not outside. 11/18 - 11/20 - Ongoing SI unable to contract for safety outside of hospital. 11/23 - Pt describes SI as "mild" today, though mood, delusions, and frustration/defeat continue to be variable and patient remains at acute risk of harm to self if discharged prematurely 11/24 - 11/26 - Denies SI today (3) Depression: 11/13 -Although the patient does have a history of recurrent episodes of depression, and although in the past she has carried diagnoses of schizoaffective disorder, but by far the most prominent set of symptoms in this case are the symptoms of schizophrenia, and depression is thought to be a separate and secondary diagnosis. -The patient, herself, feels that her depression and anxious distress are primarily related to poor sleep, and the fact that she has found that she is "te rrified" of the nighta circumstance that often keeps her awake. Currently, we will offer the patient a trial of Ambien 5 mg at bedtime as needed for sleep. -Anxious distress is part of the patient's current mood. She reports that hydroxyzine ("Vistaril") helps, and says that she prefers a standing dose order of Vistaril 25 mg 3 times a day, with supplemental Vistaril dosages as needed. 11/14--reviewed. 11/15--Ambien remains effective. 11/18 - Continue as above - patient reports feeling "down" today, able to contract for safety on unit, but not outside of hospital. 11/20 - Reports ongoing depressed mood, utilizing coping skills - ongoing SI, though reported to be less severe - Unable to contract for safety outside of the hospital setting 11/21 -Discussed consideration for sedating antidepressant briefly with patient today however she declined to consider this intervention today indicating lack of need however, high-dose trazodone with smaller doses during the day might be helpful on multiple fronts for mood elevation, anxiety, sleep, and potentially could substitute for the Seroquel and avoid the antipsychotic polypharmacy. We will readdress again tomorrow. 11/22 -Reviewed patient has previously been treated with trazodone in the past. unclear if h/o daytime dosing. again this could be considered as alternative to hydroxyzine but was declined by pt again today. 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 The patient's blood glucose levels at admission are elevated, and several adjustments in her medication regimen have been necessary. 11/14--reviewed. 11/21 -Appreciate diabetic pharmacy follow-up and recommendations for blood sugars to remain inadequately controlled 11/23 - Pt refused HS insulin last evening, initially refused insulin this AM. Reports concern is related to feeling the vial/syringe dosing causes tachycardia, dizziness, and hot flashes. Pt is agreeable with continuing insulin if given the insulin pen form. - Pt did report desire to stop insulin if possible and switch to metformin, which she had taken in the past. We reviewed the reasons this would be inappropriate and patient verbalized understanding. Will continue to encourage appropriate and reality-based diabetic management routine. - Appreciate ongoing assistance from glycemic pharmacists. Mental Health & Subst Abuse Tx Psychiatrist Name of Psychiatrist: Irma Guillen Psychiatrist's Date of Appointment with Psychiatrist: 12/10/20 Time of Appointment with Psychiatrist: 11 am Psychiatric Appointment Comment: [phone] Therapist Name of Therapist: Irma Stephen Therapist's Date of Therapist Appointment: 12/02/20 Time of Therapist Appointment: 10am Therapy Appointment Comment: telehealth Qa Lead Name of Qa Lead: [facility] - Keli Martin Phone Number for Qa Lead: [phone] Date of Appointment with Qa Lead: 12/01/20 Time of Appointment with Qa Lead: 1:30pm Case Management Appointment Comment: Will follow up with you Post Discharge Appointments Primary Care Physician Name Of Family Doctor: [facility] - Dr. Reece [facility] Date of Appointment with PCP: 12/15/20 Time of Appointment with PCP: 12:40 p.m. Provider Appointment Comment: [address], [place] [address] Partial or Psych Rehab Name of Partial or Psych Rehab: Psych Rehab Phone Number of Partial or Psych Rehab: [phone] Date of Appointment at Partial or Psych Rehab: 12/02/20 Partial or Psych Rehab Appointment Comment: Resume routine schedule Smoking Cessation Counseling Tobacco Cessation Medication Prescribed at Discharge: Not Applicable/Non-Smoker Contact Information Discharge Discharge Address: [address] [place] [id number] Contact Information Comment: House of Care Discharge Plan Discharge Items Patient Disposition: Personal Penitentiary Reason For Visit: SCHIZOPHRENIA Discharge Diagnosis: - Schizophrenia - Depression - Diabetes mellitus type 2 Condition on Discharge: Fair Activity: Resume your previous activity Non-emergency contact: Primary Care Provider, Psychiatrist, Therapist and Line Installation Supervisor Call non-emergency contact if: you have any medication questions and your symptoms worsen Follow-up/Referrals: Dillon Rogers MD [Primary Care Provider] - Diet: Carb Consistent or DM2 Addtl Attending Provider Instructions: SPECIAL CARE INSTRUCTIONS: 1. Follow through with your scheduled aftercare appointments. If unable to keep an appointment, please call to reschedule. 2. Take your medication only as prescribed. Medication should not be changed or stopped without the approval of your doctor. In the event of worsening symptoms or concerns about side effects, contact your doctor immediately. 3. Utilize new healthy coping skills, anger management skills, and stress management skills learned during your hospitalization. Journal feelings and process them with a support person. Identify stressors or situations that may result in relapse, deterioration or inappropriate behaviors and develop a plan to deal with those issues. 4. If your coping skills are ineffective and you are in crisis, contact your outpatient providers for direction. If unable to reach your providers, please call the [facility] CRISIS LINE AT , go to the [facility] walk-in center at [address], [address], [place], or go to the closest Emergency Room. 5. Avoid alcohol and un-prescribed drugs. 6. You have been provided with the Mental Health Advance Directives Pamphlet for your review. AFTERCARE APPOINTMENTS: * Please call your insurance company prior to your scheduled appointment to confirm your aftercare providers are covered. Take your insurance information to your appointments. WHO TO CALL AND WHEN: Medical Emergencies: For questions or emergencies related to your hospital stay, please contact the Inpatient Behavioral Health Unit at [phone]. A crisis clinician is on-call 20/03 for the Behavioral Health Unit for emergencies At any time you feel your situation is an emergency, you may also call 911 immediately. Addtl Foil Stamp Operator Provider Instructions: Glycemic Pharmacists Discharge Recommendations: - HbA1c = 8.8% - Goal A1c is less than 7%. - A1c is not at goal but is lower now than it has been on previous admissions. - Doses of oral anti-diabetic meds could be adjusted up. However, would leave that to the outpatient provider. - As long as patient is not reporting hypoglycemia at home, would continue all of her home anti-diabetic meds on discharge and encourage compliance with them. Pending Studies at Discharge: No Stand-Alone Forms: My [facility] Skilled Items Patient informed of condition?: Yes DNR: No Discharge Level of Care: Other Communicable Disease: No Discharge Prognosis: Improving Lines: None Urinary Catheter: No Medications and DC Order Prescriptions: New prazosin 1 mg Capsule 1 mg PO HS 30 Days Qty: 30 RF: 0 hydroxyzine HCl 25 mg Tablet 25 mg PO Q4H PRN (Reason: anxiety) 30 Days Qty: 30 RF: 0 quetiapine 50 mg tablet 50 mg PO BID@0900,1500 30 Days Qty: 60 RF: 0 zolpidem 5 mg Tablet 5 mg PO HS PRN (Reason: insomnia) 30 Days Qty: 30 RF: 0 Continued aspirin 81 mg tablet,delayed release (DR/EC) 81 mg PO DAILY Qty: 90 RF: 3 Levemir FlexTouch U-100 Insuln 100 unit/mL (3 mL) insulin pen 100 units SQ BID 90 Days Qty: 180 RF: 3 atorvastatin 80 mg tablet 80 mg PO HS Qty: 90 RF: 3 (DME) OneTouch Ultra Blue Test Strip Strip See Rx Instructions strip .ROUTE .MEDSUPPLY Qty: 200 RF: 3 glipizide 10 mg tablet 10 mg PO BID Qty: 180 RF: 3 cholecalciferol (vitamin D3) 1,250 mcg (50,000 unit) capsule 50,000 unit PO Q7D 90 Days Qty: 13 RF: 1 Jardiance 10 mg tablet 10 mg PO DAILY Qty: 90 RF: 3 fenofibrate micronized 130 mg capsule 130 mg PO DAILY Qty: 90 RF: 3 (DME) BD AutoShield Duo Pen Needle 30 gauge x 3/16" needle .ROUTE .MEDSUPPLY Qty: 300 RF: 3 metformin 500 mg tablet extended release 24 hr 500 mg PO BID Qty: 60 RF: 5 methimazole 10 mg tablet 10 mg PO DAILY Qty: 30 RF: 5 olanzapine 20 mg tablet 30 mg PO HS RF: 0 olanzapine 5 mg tablet 5 mg PO .COMPLEX Qty: 1 RF: 2 Victoza 3-Antione 0.6 mg/0.1 mL (18 mg/3 mL) pen injector 1.8 mg subcut .COMPLEX RF: 0 losartan-hydrochlorothiazide 100-25 mg tablet 1 tab PO DAILY Qty: 90 RF: 3 benztropine 1 mg tablet 1 mg PO HS RF: 0 ferrous fumarate 325 mg (106 mg iron) tablet 325 mg PO DAILY Qty: 60 RF: 0 hydrochlorothiazide 25 mg Tablet 25 mg PO DAILY RF: 0 lisinopril 40 mg Tablet 40 mg PO DAILY RF: 0 cyanocobalamin (vitamin B-12) [Vitamin B-12] 100 mcg Tablet 1,000 mcg PO DAILY RF: 0 Changed hydroxyzine HCl 25 mg tablet 25 mg PO TID Qty: 0 RF: 0 Discharge Orders: Discharge Order (Routine); Ordered 11/27/20 Ordered By: Chio Deng/Other Patient Handouts: Managing Type 2 Diabetes Admission Data Admit Date/Time: 11/12/20 20:18 Attending Provider: Mitra Barry Admit Provider: Mitra Barry Primary Care Provider: Dillon Rogers V. Other Interventions: Discharge Summary Assessment (RN) Last Done: 11/27/20 10:19 PSY Interdisciplinary Discharge Planning Last Done: 11/27/20 09:36 Coding Level of Care Code 07694 D/C day mgmt > 30 min Diagnoses Schizophrenia F20.9 Suicidal ideations R45.851 Depression F32.9 Diabetes mellitus type 2, uncontrolled E11.65
[2020-11-27] MEDS: OLANZapine 5 MG TABLET PO SCH (14:21)
== END 2020-11-27 14:50 | disposition home or self-care (01) | DRG 885 ==
LOC: 3S → ED 15:06 → 3S 20:18

== ENCOUNTER 2021-02-05 16:45 | Inpatient (IN) ==
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
[2021-02-05 17:35] LABS: Basophils # (auto) 0.07 K/uL (0-0.2); Basophils % (auto) 0.6 %; Eosinophils # (auto) 0.27 K/uL (0-0.5); Eosinophils % (auto) 2.2 %; Hematocrit (blood only) 42.8 % (37-47); Hemoglobin 14.8 g/dL (12.0-16.0); Immature Granulocytes # (auto) 0.05 K/uL (0.00-0.02); Immature Granulocytes % (auto) 0.4 %; Lymphocytes # (auto) 3.98 K/uL (1.2-3.4); Lymphocytes % (auto) 32.1 %; Mean Corpuscular Hemoglobin 27.9 pg (25-34); Mean Corpuscular Hgb Conc 34.6 g/dL (32-36); Mean Corpuscular Volume 80.6 fL (80-100); Mean Platelet Volume 8.7 fL (7.4-10.4); Monocytes # (auto) 0.43 K/uL (0.11-0.59); Monocytes % (auto) 3.5 %; Neutrophils # (auto) 7.58 K/uL (1.4-6.5); Neutrophils % (auto) 61.2 %; Platelet Count 396 K/uL (130-400); RDW Coefficient of Variation 14.8 % (11.5-14.5); RDW Standard Deviation 42.8 fL (36.4-46.3); Red Blood Count 5.31 M/uL (4.2-5.4); White Blood Count 12.38 K/uL (4.8-10.8)
[2021-02-05 18:25] LABS: Appearance Urine Clear (Clear); Bilirubin Urine Negative (Negative); Blood Urine Negative (Negative); Color Urine Yellow; Glucose Urine UA 3+ (Negative); Ketones Urine Trace (Negative); Leukocyte Esterase Urine Negative (Negative); Nitrite Urine Negative (Negative); Protein Urine Negative (Negative); Specific Gravity Urine 1.045 (1.000-1.030); Urobilinogen Urine Negative (Negative)
[2021-02-05 18:33] LABS: Albumin Globulin Ratio 0.9 (0.9-2); Albumin Level 3.5 gm/dl (3.4-5.0); Bilirubin,Total 0.5 mg/dl (0.2-1); Calcium 8.9 mg/dl (8.5-10.1); Creatinine Clr Calc Pharmacy 74.2 ml/min; Est GFR (Non-African American) 72.5 ml/min; Globulin 3.7 gm/dl (2.5-4.0); Thyroid Stimulating Hormone 0.448 uIu/ml (0.300-4.500); Total Protein 7.2 gm/dl (6.4-8.2)
[2021-02-05 18:48] LABS: Acetaminophen 2 ug/ml (10-30); Salicylate < 1.7 mg/dl (2.8-20)
[2021-02-05 18:57] LABS: Amphetamines+Metham, Urine Neg (Neg); Barbiturates, Urine Neg (Neg); Benzodiazepine, Urine Neg (Neg); Cocaine, Urine Neg (Neg); MDMA (Ecstacy), Urine Neg (Neg); Methadone, Urine Neg (Neg); Opiate, Urine Neg (Neg); Phencyclidine, Urine Neg (Neg)
[2021-02-05 19:21] LABS: Potassium 3.2 mmol/L (3.5-5.1)
[2021-02-06] MEDS ORDERED: OLANZapine 20 MG TABLET PO STA (00:18)
[2021-02-06] MEDS ORDERED: POTASSIUM CHLORIDE CRTAB 20 MEQ TABCR PO STA (00:21)
[2021-02-06] MEDS ORDERED: INSULIN DETEMIR FLEXPEN/FLEX TOUCH 100 UNITS/ML 3ML SC STA (00:26)
[2021-02-06] MEDS ORDERED: NovoLIN-R INSULIN PER UNIT CHARGE SC STA (00:33)
[2021-02-06] MEDS: hydrOXYzine HCl 25 MG TAB PO PRN ×2 (01:00→09:00)
[2021-02-06] MEDS ORDERED: methIMAzole 5 MG TABLET PO STA (06:28)
[2021-02-06] MEDS ORDERED: glipiZIDE 5 MG TAB PO ONE (06:28)
[2021-02-06] MEDS ORDERED: metFORMIN HCL ER 500 MG TABCR PO STA (06:28)
[2021-02-06] MEDS ORDERED: ASPIRIN 81 MG ECTAB PO STA (06:28)
[2021-02-06] MEDS ORDERED: LOSARTAN POTASSIUM 50 MG TAB PO STA (06:28)
[2021-02-06] MEDS ORDERED: hydroCHLOROthiazide 25 MG TAB PO STA (06:28)
[2021-02-06] MEDS ORDERED: FERROUS SULFATE 325 MG TAB PO STA (06:28)
--- NOTE | 2021-02-06 08:08 | Emergency Department Note ---
ED Visit Note Patient signed out to me at change of shift from Dr. Sarah. Patient is a voluntary admission at this time, bed search is in progress. Patient does have a history of mental illness including depression and does see outpatient mental health providers. Patient presented due to suicidal ideation. No additional issues reported overnight. Typical morning medications were ordered. Patient signed out to Dr. Jackson. . : Leukocytosis Qualifiers: Leukocytosis type: unspecified Qualified Code(s): D72.829 - Elevated white blood cell count, unspecified
[2021-02-06] MEDS ORDERED: QUEtiapine FUMARATE 25 MG TABLET PO SCH (09:00)
[2021-02-06] MEDS ORDERED: OLANZapine 5 MG TABLET PO SCH (09:00)
[2021-02-06] MEDS ORDERED: hydrOXYzine HCl 25 MG TAB PO PRN (12:12)
[2021-02-06] MEDS ORDERED: ALUMINUM/MAGNESIUM SUSP 30 ML UDC PO PRN (12:12)
[2021-02-06] MEDS ORDERED: ACETAMINOPHEN 325 MG TAB PO PRN (12:12)
[2021-02-06] MEDS ORDERED: MAGNESIUM HYDROXIDE SUSP 30 ML UDC PO PRN (12:12)
[2021-02-06] MEDS ORDERED: SODIUM CHLORIDE 0.65% NA SOLN 45 ML (OCEAN) PRN (12:12)
[2021-02-06] MEDS ORDERED: BISMUTH SUBSALICYLATE LIQD 236 ML PO PRN (12:12)
[2021-02-06] MEDS ORDERED: PRAZOSIN HCL 1 MG CAP PO PRN (12:14)
[2021-02-06] MEDS ORDERED: BENZTROPINE MESYLATE 1 MG TAB PO PRN (12:23)
--- NOTE | 2021-02-06 12:29 | Emergency Department Note ---
ED Visit Note This patient was signed out to me at change of shift by Dr. Peacock. Please see her dictation for further details. She is here for depression and suicidal ideation and wants to sign in voluntarily. She is pending bed placement. The mental health case planner did evaluate the patient. She was referred to [facility]. She was evaluated by them and admitted under a 201. . : Leukocytosis Qualifiers: Leukocytosis type: unspecified Qualified Code(s): D72.829 - Elevated white blood cell count, unspecified
[2021-02-06] MEDS ORDERED: PHARMACY GLYCEMIC MGMT CONSULT PRN (13:24)
--- NOTE | 2021-02-06 13:42 | Pharmacy Report ---
Pharmacy Glycemic Short Note 2 - Date of Service February 06, 2021 - Glycemic Short BSG Results (Last 24 hours): 02/05/21 02/06/21 02/06/21 17:15 00:28 01:59 Glucose 300 H POC Glucose 323 H* 344 H* 02/06/21 02/06/21 02/06/21 03:08 04:08 13:22 Glucose POC Glucose 263 H 244 H 310 H* OUTPATIENT ANTIDIABETIC REGIMEN: * Jardiance (empagliflozin) 10 mg PO Daily * Levemir 140 units SQ AM + 100 units SQ PM * Victoza (liraglutide) 1.8mg SQ daily * Metformin 500mg PO BIDM * A1c = 9% on 11/12/20 ASSESSMENT: * 56yo T2DM female known to pharmacy from previous admissions/glycemic consults * Pt is maintained on multiple antidiabetic agents and high dose insulin as an outpatient. Typically; we have held the non-formulary agents and titrated the insulin dosing. In the past, patient has NOT required her high dose outpatient insulin dosing despite holding other antidiabetic agents. Likely d/t changes in CHO intake in house as compared to at home. * Pt did receive her Levemir dose of 100 units last evening around 0000 but did NOT receive her AM dose of Levemir. * BSG high on admission because she ate a grilled cheese sandwich in the ER without CHO coverage. * Will initiate SQ basal bolus regimen per previous admissions and titrate based on BSG trends. PLAN FOR INPATIENT GLYCEMIC CONTROL: * Hold outpatient oral diabetes medications * Basal insulin * Levemir 85 units SQ BID * Will give 1/2 of missed AM dose NOW for severe hyperglycemia * Bolus insulin * NovoLog per scale ACHS or Q6hrs while NPO * Goal Range: Low 110 mg/dL - High 140 mg/dL * Correction Factor: 10 mg/dL/unit * Nutritional / Prandial insulin per carb ratio of 1 unit per 2.5 grams CHO consumed PLAN FOR DISCHARGE: * TBD
[2021-02-06] MEDS ORDERED: INSULIN DETEMIR FLEXPEN/FLEX TOUCH 100 UNITS/ML 3ML SQ ONE (13:45)
[2021-02-06] MEDS: INSULIN ASPART 100 UNITS/ML 3 ML PEN SC SCH ×3 (14:39→21:21)
[2021-02-06] MEDS: OLANZapine 5 MG TABLET PO SCH (15:53)
[2021-02-06] MEDS: QUEtiapine FUMARATE 25 MG TABLET PO SCH (15:55)
[2021-02-06] MEDS: FENOFIBRATE: ORDER AWAITING ACTION SCH ×2 (17:00→21:32)
[2021-02-06] MEDS: metFORMIN HCL ER 500 MG TABCR PO SCH (17:38)
[2021-02-06] MEDS ORDERED: glipiZIDE 5 MG TAB PO SCH (21:00)
[2021-02-06] MEDS: BENZTROPINE MESYLATE 1 MG TAB PO SCH (21:17)
[2021-02-06] MEDS: ATORVASTATIN 40 MG TAB PO SCH ×2 (21:17→21:31)
[2021-02-06] MEDS: ZOLPIDEM TARTRATE 5 MG TAB PO PRN (21:21)
[2021-02-06] MEDS: INSULIN DETEMIR FLEXPEN/FLEX TOUCH 100 UNITS/ML 3ML SQ SCH (21:25)
[2021-02-06] MEDS: OLANZapine 10 MG TAB PO SCH (21:32)
[2021-02-07] MEDS: FENOFIBRATE: ORDER AWAITING ACTION SCH ×3 (00:19→16:10)
[2021-02-07] MEDS: hydrOXYzine HCl 25 MG TAB PO PRN (00:43)
[2021-02-07 08:23] LABS: Chol HDL Ratio 11; Cholesterol 266 mg/dl (0-200); HDL Cholesterol 24 mg/dl; Triglycerides 1647 mg/dl (0-150)
[2021-02-07] MEDS: CYANOCOBALAMIN 500 MCG TABLET (VITAMIN B-12) PO SCH (09:15)
[2021-02-07] MEDS: ASPIRIN 81 MG ECTAB PO SCH (09:15)
[2021-02-07] MEDS: LOSARTAN/HCTZ 50/12.5MG TAB PO SCH (09:16)
[2021-02-07] MEDS: methIMAzole 5 MG TABLET PO SCH ×2 (09:16→09:34)
[2021-02-07] MEDS: QUEtiapine FUMARATE 25 MG TABLET PO SCH ×2 (09:16→14:23)
[2021-02-07] MEDS: metFORMIN HCL ER 500 MG TABCR PO SCH ×2 (09:16→17:35)
[2021-02-07] MEDS: INSULIN ASPART 100 UNITS/ML 3 ML PEN SC SCH ×4 (09:17→20:49)
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
[2021-02-07] MEDS: INSULIN DETEMIR FLEXPEN/FLEX TOUCH 100 UNITS/ML 3ML SQ SCH ×2 (09:46→20:51)
[2021-02-07] MEDS: OLANZapine 5 MG TABLET PO SCH (14:23)
[2021-02-07] MEDS: BENZTROPINE MESYLATE 1 MG TAB PO SCH (20:48)
[2021-02-07] MEDS: ATORVASTATIN 40 MG TAB PO SCH ×2 (20:48→21:00)
[2021-02-07] MEDS: OLANZapine 10 MG TAB PO SCH (20:48)
[2021-02-08] MEDS: FENOFIBRATE: ORDER AWAITING ACTION SCH ×3 (00:19→15:48)
[2021-02-08 07:49] LABS: Estimated Average Glucose 223 mg/dl; Hemoglobin A1C 9.4 % (4.5-5.6)
[2021-02-08] MEDS: INSULIN ASPART 100 UNITS/ML 3 ML PEN SC SCH (09:12)
[2021-02-08] MEDS: CYANOCOBALAMIN 500 MCG TABLET (VITAMIN B-12) PO SCH (09:15)
[2021-02-08] MEDS: INSULIN DETEMIR FLEXPEN/FLEX TOUCH 100 UNITS/ML 3ML SQ SCH (09:15)
[2021-02-08] MEDS: ASPIRIN 81 MG ECTAB PO SCH (09:15)
[2021-02-08] MEDS: LOSARTAN/HCTZ 50/12.5MG TAB PO SCH (09:17)
[2021-02-08] MEDS: QUEtiapine FUMARATE 25 MG TABLET PO SCH ×2 (09:17→14:27)
[2021-02-08] MEDS: metFORMIN HCL ER 500 MG TABCR PO SCH ×2 (09:17→17:08)
[2021-02-08] MEDS: methIMAzole 5 MG TABLET PO SCH (09:24)
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
[2021-02-08] MEDS: LORazepam 1 MG TAB PO PRN ×2 (11:02→17:08)
--- NOTE | 2021-02-08 12:13 | Pharmacy Report ---
Pharmacy Glycemic Short Note 2 - Date of Service February 08, 2021 - Glycemic Short BSG Results (Last 24 hours): 02/07/21 02/07/21 02/07/21 12:29 17:15 20:30 POC Glucose 225 H 208 H 252 H 02/08/21 08:41 POC Glucose 217 H OUTPATIENT ANTIDIABETIC REGIMEN: * Jardiance (empagliflozin) 10 mg PO Daily * Levemir 140 units SQ AM + 100 units SQ PM * Victoza (liraglutide) 1.8mg SQ daily * Metformin 500mg PO BIDM * A1c = 9% on 11/12/20 ASSESSMENT: 02/08/21 * Patient is currently receiving an average of 292 units of insulin per day * 170 units of basal insulin * 122 units of prandial/correctional insulin * BSGs ranging 208 - 252 over the past 24hrs * Risk factors for insulin resistance are constant over the past 24hrs * Anticipating insulin regimen will need increased for the next 24hrs d/t uncontrolled BSGs * AM Fasting BSG = 217 --- patient was previously controlled on Levemir 85 units BID. Will provide a 10% higher dose if BSG remains above 180 mg/dL * Total daily dose = ~320 therefore increasing doses. * Post-prandial BSGs are elevated/BSGs rise throughout the day therefore Tighten CF/CR 02/06/21 * 56yo T2DM female known to pharmacy from previous admissions/glycemic consults * Pt is maintained on multiple antidiabetic agents and high dose insulin as an outpatient. Typically; we have held the non-formulary agents and titrated the insulin dosing. In the past, patient has NOT required her high dose outpatient insulin dosing despite holding other antidiabetic agents. Likely d/t changes in CHO intake in house as compared to at home. * Pt did receive her Levemir dose of 100 units last evening around 0000 but did NOT receive her AM dose of Levemir. * BSG high on admission because she ate a grilled cheese sandwich in the ER without CHO coverage. * Will initiate SQ basal bolus regimen per previous admissions and titrate based on BSG trends. PLAN FOR INPATIENT GLYCEMIC CONTROL: * Hold outpatient oral diabetes medications * Basal insulin * Levemir 85 units SQ BID (93 units if BSG > 180 mg/dL) * Bolus insulin * NovoLog per scale ACHS or Q6hrs while NPO * Goal Range: Low 110 mg/dL - High 140 mg/dL * Correction Factor: 7 mg/dL/unit * Nutritional / Prandial insulin per carb ratio of 1 unit per 2 grams CHO consumed PLAN FOR DISCHARGE: * TBD
[2021-02-08] MEDS: INSULIN ASPART 100 UNITS/ML VIAL SC SCH ×3 (13:10→21:29)
[2021-02-08] MEDS: OLANZapine 5 MG TABLET PO SCH (14:27)
[2021-02-08] MEDS: QUEtiapine FUMARATE 25 MG TABLET PO PRN (18:49)
[2021-02-08] MEDS ORDERED: INSULIN DETEMIR FLEXPEN/FLEX TOUCH 100 UNITS/ML 3ML SQ SCH (21:00)
[2021-02-08] MEDS: ATORVASTATIN 40 MG TAB PO SCH (21:07)
[2021-02-08] MEDS: ZOLPIDEM TARTRATE 5 MG TAB PO PRN (21:08)
[2021-02-08] MEDS: OLANZapine 10 MG TAB PO SCH (21:08)
[2021-02-08] MEDS: hydrOXYzine HCl 25 MG TAB PO PRN (21:08)
[2021-02-08] MEDS: BENZTROPINE MESYLATE 1 MG TAB PO SCH (21:08)
[2021-02-08] MEDS: INSULIN DETEMIR SC SCH (21:30)
[2021-02-09] MEDS: hydrOXYzine HCl 25 MG TAB PO PRN ×4 (00:57→23:57)
[2021-02-09] MEDS: FENOFIBRATE: ORDER AWAITING ACTION SCH ×3 (00:59→17:01)
[2021-02-09] MEDS: ASPIRIN 81 MG ECTAB PO SCH (08:48)
[2021-02-09] MEDS: ERGOCALCIFEROL 50,000 UNITS 1250 MCG CAP PO SCH (08:49)
[2021-02-09] MEDS: CYANOCOBALAMIN 500 MCG TABLET (VITAMIN B-12) PO SCH (08:49)
[2021-02-09] MEDS: LOSARTAN/HCTZ 50/12.5MG TAB PO SCH (08:54)
[2021-02-09] MEDS: metFORMIN HCL ER 500 MG TABCR PO SCH ×2 (08:54→16:46)
[2021-02-09] MEDS: methIMAzole 5 MG TABLET PO SCH (08:54)
[2021-02-09] MEDS: QUEtiapine FUMARATE 25 MG TABLET PO SCH ×2 (08:55→14:34)
[2021-02-09] MEDS: INSULIN ASPART 100 UNITS/ML VIAL SC SCH ×4 (08:57→21:13)
[2021-02-09] MEDS: INSULIN DETEMIR SC SCH ×2 (09:06→21:13)
[2021-02-09] MEDS: LORazepam 1 MG TAB PO PRN ×2 (10:49→19:49)
[2021-02-09] MEDS ORDERED: ZOLPIDEM TARTRATE 10 MG TAB PO PRN (10:56)
--- NOTE | 2021-02-09 11:25 | Psychiatric Progress Note ---
Date of Service February 09, 2021 Impression / Recommendations Impression 56 yo female with chronic schizophrenia, appears depressed with delusions of persecution and reference admitted following a suicidal gesture. She is resistant to medication changes at this time but is cooperative with care on unit and current meds as ordered. 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 02/09--minimal change (1) Schizophrenia: 02/09/21--Ativan prn more effective than additional prn SEroquel or Vistaril as less sedating and better able to participate in programming. 02/08/21--patient remains resistant to medication changes, prns are somewhat sedating, given level of anxiety this am would use Ativan preferentially today. 02/07/21--The patient was admitted to the [facility] ([facility]) on q15 min checks (behavioral with suicide precautions) for safety. The patient will participate in group, recreational, and milieu therapies and will be offered additional individual and family sessions as clinically appropriate. she is declining consideration for antidepressant at this time, has Seroquel prn as anxiety is driven by delusions rather than primary. (2) Diabetes mellitus type 2, uncontrolled: 02/07/21--pharmacy consult for glycemic management, meds ordered. gluc checks. Fasting A1c this am. (3) Hypertriglyceridemia: 02/08/21--aware that her fenofibrate is non-formulary, discussed that she is refusing decreased Seroquel and re-reviewed risks of pancreatitis. 02/07/21--reviewed that current level increased from previous and places at risk for pancreatitis. Appears to have been on fenfibrate previously. Likely worsening due to Seroquel but is low dose and benefits. She voiced understanding and is resistant to med changes at this time. No acute indication for med consult but will ensure f/u with PCP. Inventory Assets Strengths: intelligence, mother supportive Needs: increase in activities outside of [facility] Risk Factors Assessment : Yes Do You Have Access To A Gun?: No Mental Health Diagnoses: Yes Substance Use Disorders: No Previous Attempt: Yes Previous Psychiatric Hospitalization: Yes Hopelessness: Yes Protective Factors Assessment Religion Beliefs: Yes : No Employed: No Supportive Family: Yes Interval History Chief Complaint "I'm feeling less tortured today but very tired". Review of Systems Sleep Information Total Hours of Sleep: 6 Meal Information Percent Meal Consumed - Breakfast: 75 Percent Meal Consumed - Lunch: 100 Percent Meal Consumed - Dinner: 100 Subjective Subjective Patient was seen & assessed and interval progress reviewed with nursing and social work. Same delusions per staff, multiple prns yesterday, sleep is suboptimal. Patient resistant to family meeting with mother. Had to be redirected in group around sexual preoccupation. Will meet with CM today. Physical Exam Psychiatric Orientation: alert Apperance: appropriately groomed Eye Contact: + fair eye contact Motor Behavior: no abnormal motor movements Speech: normal rate/rhythm/volume of speech Affect: + depressed affect Mood: + depressed mood Thought Process: + tangential thought process Thought Content: + paranoid, + delusions, + persecution and + loneliness Homicidal Thoughts: denies homicidal thoughts Hallucinations: no auditory hallucinations and no visual hallucinations Cognition: attention grossly intact and language grossly intact Estimated Intelligence: + above average estimated intelligence Insight: + poor insight Judgement: + poor judgement Vital Signs (Past 24 Hours) Last Vital Signs Temp 36.5 C 02/09/21 06:40 Pulse 80 02/09/21 06:41 Resp 16 02/09/21 06:40 BP 119/75 02/09/21 06:41 Pulse Ox 99 02/06/21 12:57 Results & Data ([facility]) Laboratory Results Laboratory Results - last 24 hr 02/08/21 02/08/21 02/08/21 12:19 17:01 21:15 POC Glucose 213 H 174 H 236 H 02/09/21 08:40 POC Glucose 184 H Current Inpatient Medications Current Inpatient Medications: Current Inpatient Medications Acetaminophen (Acetaminophen 325 Mg Tab) 650 mg PO Q4H PRN PRN Reason: Headache or Minor Fever Stop: 03/08/21 12:11 Al Hydrox/Mg Hydrox/Simethicone (Aluminum/Magnesium Susp 30 Ml Udc) 30 ml PO Q4H PRN PRN Reason: GI Upset Stop: 03/08/21 12:11 Aspirin (Aspirin 81 Mg Ectab) 81 mg PO DAILY ANNAMARIA Stop: 03/09/21 08:59 Last Admin: 02/09/21 08:48 Dose: 81 mg Documented by: Atorvastatin Calcium (Atorvastatin 40 Mg Tab) 80 mg PO HS ANNAMARIA Stop: 03/08/21 20:59 Last Admin: 02/08/21 21:07 Dose: 40 mg Documented by: Benztropine Mesylate (Benztropine Mesylate 1 Mg Tab) 1 mg PO HS ANNAMARIA Stop: 03/08/21 20:59 Last Admin: 02/08/21 21:08 Dose: 1 mg Documented by: Benztropine Mesylate (Benztropine Mesylate 1 Mg Tab) 1 mg PO Q8 PRN PRN Reason: Muscle Spasm Stop: 03/08/21 12:22 Bismuth Subsalicylate (Bismuth Subsalicylate Liqd 236 Ml) 15 ml PO PRN PRN PRN Reason: Loose Stool Stop: 03/08/21 12:11 Cyanocobalamin (Cyanocobalamin 500 Mcg Tablet (Vitamin B-12)) 1,000 mcg PO DAILY [facility] Stop: 03/09/21 08:59 Last Admin: 02/09/21 08:49 Dose: 1,000 mcg Documented by: Ergocalciferol (Ergocalciferol 50,000 Units 1250 Mcg Cap) 50,000 units PO Tu@0900 [facility] Stop: 03/11/21 08:59 Last Admin: 02/09/21 08:49 Dose: 50,000 units Documented by: HCTZ/Losartan Potassium (Losartan/Hctz 50/12.5mg Tab) 1 tab PO DAILY [facility] Stop: 03/09/21 08:59 Last Admin: 02/09/21 08:54 Dose: 1 tab Documented by: Hydroxyzine HCl (Hydroxyzine Hcl 25 Mg Tab) 50 mg PO HSZ PRN PRN Reason: Insomnia Stop: 03/08/21 12:11 Last Admin: 02/09/21 00:57 Dose: 50 mg Documented by: Hydroxyzine HCl (Hydroxyzine Hcl 25 Mg Tab) 25 mg PO Q6 PRN PRN Reason: Anxiety Stop: 03/11/21 10:54 Insulin Aspart (Insulin Aspart 100 Units/Ml Vial) 0 units SC ACHS [facility] Stop: 03/10/21 11:59 Last Admin: 02/09/21 08:57 Dose: 27 units Documented by: Insulin Detemir (Insulin Detemir) 0 units SC BID [facility]; Protocol Stop: 03/10/21 20:59 Last Admin: 02/09/21 09:06 Dose: 93 units Documented by: Lorazepam (Lorazepam 1 Mg Tab) 1 mg PO Q6 PRN PRN Reason: Anxiety/Agitation Stop: 03/08/21 12:22 Last Admin: 02/09/21 10:49 Dose: 1 mg Documented by: Magnesium Hydroxide (Magnesium Hydroxide Susp 30 Ml Udc) 30 ml PO DAILY PRN PRN Reason: Constipation Stop: 03/08/21 12:11 Metformin HCl (Metformin Hcl Er 500 Mg Tabcr) 500 mg PO BIDM ANNAMARIA Stop: 03/08/21 17:44 Last Admin: 02/09/21 08:54 Dose: 500 mg Documented by: Methimazole (Methimazole 5 Mg Tablet) 10 mg PO DAILY ANNAMARIA Stop: 03/09/21 08:59 Last Admin: 02/09/21 08:54 Dose: 5 mg Documented by: Miscellaneous (Fenofibrate: Order Awaiting Action) 1 ea N/A QS ANNAMARIA Stop: 03/08/21 15:59 Last Admin: 02/09/21 08:59 Dose: Not Given Documented by: Miscellaneous Information (Pharmacy Glycemic Mgmt Consult) 1 ea N/A UD PRN PRN Reason: Consult Stop: 03/08/21 13:23 Non-Formulary Medication (Ferrous Sulfate) 325 mg PO DAILY ANNAMARIA Stop: 03/12/21 08:59 Olanzapine (Olanzapine 10 Mg Tab) 30 mg PO HS ANNAMARIA Stop: 03/08/21 21:59 Last Admin: 02/08/21 21:08 Dose: 30 mg Documented by: Olanzapine (Olanzapine 5 Mg Tablet) 5 mg PO DAILY@1500 [facility] Stop: 03/08/21 14:59 Last Admin: 02/08/21 14:27 Dose: 5 mg Documented by: Prazosin HCl (Prazosin Hcl 1 Mg Cap) 1 mg PO HS PRN PRN Reason: Sleep Stop: 03/08/21 12:13 Quetiapine Fumarate (Quetiapine Fumarate 25 Mg Tablet) 50 mg PO BID@0900,1500 [facility] Stop: 03/08/21 14:59 Last Admin: 02/09/21 08:55 Dose: 50 mg Documented by: Quetiapine Fumarate (Quetiapine Fumarate 25 Mg Tablet) 50 mg PO Q6 PRN PRN Reason: Anxiety/Agitation Stop: 03/08/21 17:59 Last Admin: 02/08/21 18:49 Dose: 50 mg Documented by: Sodium Chloride (Sodium Chloride 0.65% Na Soln 45 Ml ([place])) 1 - 2 sprays NA PRN PRN PRN Reason: Nasal Dryness/Congestion Stop: 03/08/21 12:11 Zolpidem Tartrate (Zolpidem Tartrate 10 Mg Tab) 10 mg PO HS PRN PRN Reason: Insomnia Stop: 03/08/21 12:13 Mental Health & Subst Abuse Tx Psychiatrist Name of Psychiatrist: Irma Card Psychiatrist's Date of Appointment with Psychiatrist: 02/19/21 Time of Appointment with Psychiatrist: 1:40pm Psychiatric Appointment Comment: [phone] [place] [address] Therapist Name of Therapist: Irma Stephen Therapist's Date of Therapist Appointment: 02/16/21 Time of Therapist Appointment: 10 a.m Therapy Appointment Comment: [phone] [facility] [place] Sweater Designer Name of Sweater Designer: EVELYNU - Keli Phone Number for Sweater Designer: [phone] Post Discharge Appointments Primary Care Physician Name Of Family Doctor: JAYJAY Reece Primary Care Date of Appointment with PCP: 02/22/21 Time of Appointment with PCP: 11:20a.m Provider Appointment Comment: [phone] [place] [address] Contact Information Discharge Discharge Address: [facility], [address] [place] [address] (1) Schizophrenia Schizophrenia type: paranoid schizophrenia Qualified Code(s): F20.0 - Paranoid schizophrenia (2) Diabetes mellitus type 2, uncontrolled Glycemic state: with hyperglycemia Qualified Code(s): E11.65 - Type 2 diabetes mellitus with hyperglycemia
[2021-02-09] MEDS ORDERED: GLUCAGON FOR INJ 1 MG VIAL IM PRN (11:30)
[2021-02-09] MEDS ORDERED: GLUCOSE 10 TABS/TUBE PO PRN (11:30)
[2021-02-09] MEDS ORDERED: CARBOHYDRATES FOR HYPOGLYCEMIA PO PRN (11:30)
[2021-02-09] MEDS ORDERED: GLUCOSE 40% GEL 15 GM TUBE PO PRN (11:30)
[2021-02-09] MEDS ORDERED: DEXTROSE 50% 50 ML SYRINGE IV PRN (11:30)
[2021-02-09] MEDS: OLANZapine 5 MG TABLET PO SCH (14:33)
[2021-02-09] MEDS: ATORVASTATIN 40 MG TAB PO SCH (21:14)
[2021-02-09] MEDS: BENZTROPINE MESYLATE 1 MG TAB PO SCH (21:14)
[2021-02-09] MEDS: OLANZapine 10 MG TAB PO SCH (21:15)
[2021-02-10] MEDS: QUEtiapine FUMARATE 25 MG TABLET PO PRN (00:53)
[2021-02-10] MEDS: FENOFIBRATE: ORDER AWAITING ACTION SCH ×2 (02:15→09:29)
[2021-02-10] MEDS: CYANOCOBALAMIN 500 MCG TABLET (VITAMIN B-12) PO SCH (08:47)
[2021-02-10] MEDS: metFORMIN HCL ER 500 MG TABCR PO SCH ×2 (08:47→19:17)
[2021-02-10] MEDS: FERROUS SULFATE 325 MG TAB PO SCH (08:47)
[2021-02-10] MEDS: ASPIRIN 81 MG ECTAB PO SCH (08:47)
[2021-02-10] MEDS: LOSARTAN/HCTZ 50/12.5MG TAB PO SCH (08:47)
[2021-02-10] MEDS: LORazepam 1 MG TAB PO PRN (08:48)
[2021-02-10] MEDS: QUEtiapine FUMARATE 25 MG TABLET PO SCH ×2 (08:48→14:52)
[2021-02-10] MEDS ORDERED: haloperidoL 5 MG TAB PO PRN (08:51)
[2021-02-10] MEDS: methIMAzole 5 MG TABLET PO SCH (08:53)
[2021-02-10] MEDS: INSULIN ASPART 100 UNITS/ML VIAL SC SCH ×2 (09:24→13:49)
[2021-02-10] MEDS: INSULIN DETEMIR SC SCH (09:27)
--- NOTE | 2021-02-10 09:38 | Psychiatric Progress Note ---
Date of Service February 10, 2021 Impression / Recommendations Impression 56 yo female with schizophrenia, recurrent hospitalization for ideas of reference and suicidal gesture. 02/10--minimal improvement. (1) Schizophrenia: 02/10/21--will offer prn Haldol and encourage to replace Seroquel if using regularly. 02/09/21--Ativan prn more effective than additional prn SEroquel or Vistaril as less sedating and better able to participate in programming. 02/08/21--patient remains resistant to medication changes, prns are somewhat sedating, given level of anxiety this am would use Ativan preferentially today. 02/07/21--The patient was admitted to the [facility] ([facility]) on q15 min checks (behavioral with suicide precautions) for safety. The patient will participate in group, recreational, and milieu therapies and will b e offered additional individual and family sessions as clinically appropriate. she is declining consideration for antidepressant at this time, has Seroquel prn as anxiety is driven by delusions rather than primary. (2) Diabetes mellitus type 2, uncontrolled: 02/07/21--pharmacy consult for glycemic management, meds ordered. gluc checks. Fasting A1c this am. (3) Hypertriglyceridemia: 02/08/21--aware that her fenofibrate is non-formulary, discussed that she is refusing decreased Seroquel and re-reviewed risks of pancreatitis. 02/07/21--reviewed that current level increased from previous and places at risk for pancreatitis. Appears to have been on fenfibrate previously. Likely worsening due to Seroquel but is low dose and benefits. She voiced understanding and is resistant to med changes at this time. No acute indication for med consult but will ensure f/u with PCP. Risk Factors Assessment : Yes Do You Have Access To A Gun?: No Mental Health Diagnoses: Yes Substance Use Disorders: No Previous Attempt: Yes Previous Psychiatric Hospitalization: Yes Hopelessness: Yes Protective Factors Assessment [employer] Beliefs: Yes : No Employed: No Supportive Family: Yes Interval History Chief Complaint "I'm not sure if I'm better or worse but I have a hard time sleeping". Review of Systems Sleep Information Total Hours of Sleep: 4.75 Meal Information Percent Meal Consumed - Breakfast: 75 Percent Meal Consumed - Lunch: 100 Percent Meal Consumed - Dinner: 100 Subjective Subjective Patient was seen & assessed and interval progress reviewed with treatment team. Patient is requesting higher dose of Ambien, reviewed max dosing and did discuss with pharmacist. Reviewed that may benefit from retrial of a typical antipsychotic in place of Seroquel but she remains "loyal" to Seroquel as feels helpful for her anxiety. Is improved insight into her condition and less hyperreligious this am stating "I know god loves me, he's done alot, I'd like to baptist again on Sundays". Reviewed her activities at [facility]. doesn't currently have access to an electronic device to screen services. She would like to travel to [facility] to visit a relative with mother but recognizes that her delusions interfere. Staff saw talking to self as if responding to int stim last night. She denies benitez. Physical Exam Psychiatric Orientation: alert Apperance: appropriately groomed Eye Contact: + fair eye contact Motor Behavior: no abnormal motor movements Speech: normal rate/rhythm/volume of speech Affect: + depressed affect Mood: + depressed mood Thought Process: goal directed thought process and + tangential thought process Thought Content: + paranoid and + delusions Homicidal Thoughts: denies homicidal thoughts Hallucinations: no auditory hallucinations and no visual hallucinations Cognition: attention grossly intact and language grossly intact Estimated Intelligence: + above average estimated intelligence Insight: + poor insight Judgement: + poor judgement Vital Signs (Past 24 Hours) Last Vital Signs Temp 36.4 C L 02/10/21 06:00 Pulse 81 02/10/21 06:17 Resp 18 02/10/21 06:00 BP 137/93 02/10/21 06:17 Pulse Ox 99 02/06/21 12:57 Results & Data ([facility]) Laboratory Results Laboratory Results - last 24 hr 02/09/21 02/09/21 02/09/21 12:34 16:49 21:04 POC Glucose 192 H 175 H 203 H 02/10/21 08:06 POC Glucose 170 H Current Inpatient Medications Current Inpatient Medications: Current Inpatient Medications Acetaminophen (Acetaminophen 325 Mg Tab) 650 mg PO Q4H PRN PRN Reason: Headache or Minor Fever Stop: 03/08/21 12:11 Al Hydrox/Mg Hydrox/Simethicone (Aluminum/Magnesium Susp 30 Ml Udc) 30 ml PO Q4H PRN PRN Reason: GI Upset Stop: 03/08/21 12:11 Aspirin (Aspirin 81 Mg Ectab) 81 mg PO DAILY ANNAMARIA Stop: 03/09/21 08:59 Last Admin: 02/10/21 08:47 Dose: 81 mg Documented by: Atorvastatin Calcium (Atorvastatin 40 Mg Tab) 80 mg PO HS ANNAMARIA Stop: 03/08/21 20:59 Last Admin: 02/09/21 21:14 Dose: 40 mg Documented by: Benztropine Mesylate (Benztropine Mesylate 1 Mg Tab) 1 mg PO HS ANNAMARIA Stop: 03/08/21 20:59 Last Admin: 02/09/21 21:14 Dose: 1 mg Documented by: Benztropine Mesylate (Benztropine Mesylate 1 Mg Tab) 1 mg PO Q8 PRN PRN Reason: Muscle Spasm Stop: 03/08/21 12:22 Bismuth Subsalicylate (Bismuth Subsalicylate Liqd 236 Ml) 15 ml PO PRN PRN PRN Reason: Loose Stool Stop: 03/08/21 12:11 Cyanocobalamin (Cyanocobalamin 500 Mcg Tablet (Vitamin B-12)) 1,000 mcg PO DAILY ANNAMARIA Stop: 03/09/21 08:59 Last Admin: 02/10/21 08:47 Dose: 1,000 mcg Documented by: Dextrose (Dextrose 50% 50 Ml Syringe) 25 - 50 ml IV UD PRN; Protocol PRN Reason: Hypoglycemia Protocol Stop: 03/11/21 11:29 Ergocalciferol (Ergocalciferol 50,000 Units 1250 Mcg Cap) 50,000 units PO Tu@0900 ANNAMARIA Stop: 03/11/21 08:59 Last Admin: 02/09/21 08:49 Dose: 50,000 units Documented by: Ferrous Sulfate (Ferrous Sulfate 325 Mg Tab) 325 mg PO DAILY ANNAMARIA Stop: 03/12/21 08:59 Last Admin: 02/10/21 08:47 Dose: 325 mg Documented by: Glucagon (Glucagon For Inj 1 Mg Vial) 1 mg IM UD PRN; Protocol PRN Reason: Hypoglycemia Protocol Stop: 03/11/21 11:29 Glucose (Glucose 40% Gel 15 Gm Tube) 15 - 30 gm PO UD PRN; Protocol PRN Reason: Hypoglycemia Protocol Stop: 03/11/21 11:29 Glucose (Glucose 10 Tabs/Tube) 4 - 8 tabs PO UD PRN; Protocol PRN Reason: Hypoglycemia Protocol Stop: 03/11/21 11:29 HCTZ/Losartan Potassium (Losartan/Hctz 50/12.5mg Tab) 1 tab PO DAILY ANNAMARIA Stop: 03/09/21 08:59 Last Admin: 02/10/21 08:47 Dose: 1 tab Documented by: Haloperidol (Haloperidol 5 Mg Tab) 5 mg PO Q6 PRN PRN Reason: Anxiety/Agitation Stop: 03/12/21 08:50 Hydroxyzine HCl (Hydroxyzine Hcl 25 Mg Tab) 50 mg PO HSZ PRN PRN Reason: Insomnia Stop: 03/08/21 12:11 Last Admin: 02/09/21 23:57 Dose: 50 mg Documented by: Hydroxyzine HCl (Hydroxyzine Hcl 25 Mg Tab) 25 mg PO Q6 PRN PRN Reason: Anxiety Stop: 03/11/21 10:54 Last Admin: 02/09/21 16:46 Dose: 25 mg Documented by: Insulin Aspart (Insulin Aspart 100 Units/Ml Vial) 0 units SC ACHS ANNAMARIA Stop: 03/10/21 11:59 Last Admin: 02/10/21 09:24 Dose: 19 units Documented by: Insulin Detemir (Insulin Detemir) 0 units SC BID ANNAMARIA; Protocol Stop: 03/10/21 20:59 Last Admin: 02/10/21 09:27 Dose: 93 units Documented by: Lorazepam (Lorazepam 1 Mg Tab) 1 mg PO Q6 PRN PRN Reason: Anxiety/Agitation Stop: 03/08/21 12:22 Last Admin: 02/10/21 08:48 Dose: 1 mg Documented by: Magnesium Hydroxide (Magnesium Hydroxide Susp 30 Ml Udc) 30 ml PO DAILY PRN PRN Reason: Constipation Stop: 03/08/21 12:11 Metformin HCl (Metformin Hcl Er 500 Mg Tabcr) 500 mg PO BIDM ANNAMARIA Stop: 03/08/21 17:44 Last Admin: 02/10/21 08:47 Dose: 500 mg Documented by: Methimazole (Methimazole 5 Mg Tablet) 10 mg PO DAILY ANNAMARIA Stop: 03/09/21 08:59 Last Admin: 02/10/21 08:53 Dose: 5 mg Documented by: Miscellaneous (Fenofibrate: Order Awaiting Action) 1 ea N/A QS [facility] Stop: 03/08/21 15:59 Last Admin: 02/10/21 09:29 Dose: Not Given Documented by: Miscellaneous (Carbohydrates For Hypoglycemia ) 15 - 30 gm PO UD PRN PRN Reason: Hypoglycemia Treatment Stop: 03/11/21 11:29 Miscellaneous Information (Pharmacy Glycemic Mgmt Consult) 1 ea N/A UD PRN PRN Reason: Consult Stop: 03/08/21 13:23 Olanzapine (Olanzapine 10 Mg Tab) 30 mg PO HS ANNAMARIA Stop: 03/08/21 21:59 Last Admin: 02/09/21 21:15 Dose: 30 mg Documented by: Olanzapine (Olanzapine 5 Mg Tablet) 5 mg PO DAILY@1500 ANNAMARIA Stop: 03/08/21 14:59 Last Admin: 02/09/21 14:33 Dose: 5 mg Documented by: Quetiapine Fumarate (Quetiapine Fumarate 25 Mg Tablet) 50 mg PO BID@0900,1500 ANNAMARIA Stop: 03/08/21 14:59 Last Admin: 02/10/21 08:48 Dose: 50 mg Documented by: Quetiapine Fumarate (Quetiapine Fumarate 25 Mg Tablet) 50 mg PO Q6 PRN PRN Reason: Anxiety/Agitation Stop: 03/08/21 17:59 Last Admin: 02/10/21 00:53 Dose: 50 mg Documented by: Sodium Chloride (Sodium Chloride 0.65% Na Soln 45 Ml ([place])) 1 - 2 sprays NA PRN PRN PRN Reason: Nasal Dryness/Congestion Stop: 03/08/21 12:11 Zolpidem Tartrate (Zolpidem Tartrate 10 Mg Tab) 10 mg PO HS [facility] Stop: 03/12/21 21:59 Mental Health & Subst Abuse Tx Psychiatrist Name of Psychiatrist: Irma Card Psychiatrist's Date of Appointment with Psychiatrist: 02/19/21 Time of Appointment with Psychiatrist: 1:40pm Psychiatric Appointment Comment: [address] [place] [address] Therapist Name of Therapist: Irma Stephen Therapist's Date of Therapist Appointment: 02/16/21 Time of Therapist Appointment: 10 a.m Therapy Appointment Comment: [id number] [facility] [place] [employer]bin Presser Name of Bobbin Presser: ADRIEL Dickey Phone Number for Bobbin Presser: [phone] Post Discharge Appointments Primary Care Physician Name Of Family Doctor: JAYJAY Reece Primary Care Date of Appointment with PCP: 02/22/21 Time of Appointment with PCP: 11:20a.m Provider Appointment Comment: [address], [place] [address] Contact Information Discharge Discharge Address: [address] (1) Schizophrenia Schizophrenia type: paranoid schizophrenia Qualified Code(s): F20.0 - Paranoid schizophrenia (2) Diabetes mellitus type 2, uncontrolled Glycemic state: with hyperglycemia Qualified Code(s): E11.65 - Type 2 diabetes mellitus with hyperglycemia
--- NOTE | 2021-02-10 10:49 | Pharmacy Report ---
Pharmacy Glycemic Short Note 2 - Date of Service February 10, 2021 - Glycemic Short BSG Results (Last 24 hours): 02/09/21 02/09/21 02/09/21 12:34 16:49 21:04 POC Glucose 192 H 175 H 203 H 02/10/21 08:06 POC Glucose 170 H OUTPATIENT ANTIDIABETIC REGIMEN: * Jardiance (empagliflozin) 10 mg PO Daily * Levemir 140 units SQ AM + 100 units SQ PM * Victoza (liraglutide) 1.8mg SQ daily * Metformin 500mg PO BIDM * A1c = 9% on 11/12/20 ASSESSMENT: 02/09/21: * Patient received 308 units of insulin yesterday, 186 bolus, 122 basal * BSGs 184,192,175,203 mg/dL yesterday * Overall BSGs improved. Will tighten novolog scale again today. Fasting BSG also improving continue with current lantus scale. 02/08/21 * Patient is currently receiving an average of 292 units of insulin per day * 170 units of basal insulin * 122 units of prandial/correctional insulin * BSGs ranging 208 - 252 over the past 24hrs * Risk factors for insulin resistance are constant over the past 24hrs * Anticipating insulin regimen will need increased for the next 24hrs d/t uncontrolled BSGs * AM Fasting BSG = 217 --- patient was previously controlled on Levemir 85 units BID. Will provide a 10% higher dose if BSG remains above 180 mg/dL * Total daily dose = ~320 therefore increasing doses. * Post-prandial BSGs are elevated/BSGs rise throughout the day therefore Tighten CF/CR 02/06/21 * 56yo T2DM female known to pharmacy from previous admissions/glycemic consults * Pt is maintained on multiple antidiabetic agents and high dose insulin as an outpatient. Typically; we have held the non-formulary agents and titrated the insulin dosing. In the past, patient has NOT required her high dose outpatient insulin dosing despite holding other antidiabetic agents. Likely d/t changes in CHO intake in house as compared to at home. * Pt did receive her Levemir dose of 100 units last evening around 0000 but did NOT receive her AM dose of Levemir. * BSG high on admission because she ate a grilled cheese sandwich in the ER without CHO coverage. * Will initiate SQ basal bolus regimen per previous admissions and titrate based on BSG trends. PLAN FOR INPATIENT GLYCEMIC CONTROL: * Hold outpatient oral diabetes medications * Basal insulin * Levemir 85 units SQ BID (93 units if BSG > 160 mg/dL) * Bolus insulin * NovoLog per scale ACHS or Q6hrs while NPO * Goal Range: Low 110 mg/dL - High 140 mg/dL * Correction Factor: 6 mg/dL/unit * Nutritional / Prandial insulin per carb ratio of 1 unit per 2 grams CHO consumed PLAN FOR DISCHARGE: * TBD
[2021-02-10] MEDS: OLANZapine 5 MG TABLET PO SCH (14:52)
[2021-02-10] MEDS: INSULIN ASPART 100 UNITS/ML 3 ML PEN SC SCH ×2 (19:18→21:40)
[2021-02-10] MEDS: ZOLPIDEM TARTRATE 10 MG TAB PO SCH (21:40)
[2021-02-10] MEDS: BENZTROPINE MESYLATE 1 MG TAB PO SCH (21:40)
[2021-02-10] MEDS: ATORVASTATIN 40 MG TAB PO SCH (21:40)
[2021-02-10] MEDS: OLANZapine 10 MG TAB PO SCH (21:40)
[2021-02-10] MEDS ORDERED: ZOLPIDEM TARTRATE 5 MG TAB PO SCH (22:00)
[2021-02-10] MEDS: INSULIN DETEMIR FLEXPEN/FLEX TOUCH 100 UNITS/ML 3ML SC SCH (22:25)
[2021-02-11] MEDS ORDERED: INSULIN ASPART 100 UNITS/ML 3 ML PEN SC SCH (01:00)
[2021-02-11] MEDS: hydrOXYzine HCl 25 MG TAB PO PRN ×2 (01:45→18:26)
[2021-02-11] MEDS: INSULIN ASPART 100 UNITS/ML 3 ML PEN SC SCH ×4 (09:41→21:25)
[2021-02-11] MEDS: CYANOCOBALAMIN 500 MCG TABLET (VITAMIN B-12) PO SCH (09:42)
[2021-02-11] MEDS: ASPIRIN 81 MG ECTAB PO SCH (09:42)
[2021-02-11] MEDS: FENOFIBRATE NANOCRYSTALLIZED 145 MG TABLET PO SCH (09:42)
[2021-02-11] MEDS: FERROUS SULFATE 325 MG TAB PO SCH (09:43)
[2021-02-11] MEDS: INSULIN DETEMIR FLEXPEN/FLEX TOUCH 100 UNITS/ML 3ML SC SCH ×2 (09:43→21:24)
[2021-02-11] MEDS: LOSARTAN/HCTZ 50/12.5MG TAB PO SCH (09:44)
[2021-02-11] MEDS: metFORMIN HCL ER 500 MG TABCR PO SCH ×2 (09:44→17:20)
[2021-02-11] MEDS: methIMAzole 5 MG TABLET PO SCH (09:44)
[2021-02-11] MEDS: QUEtiapine FUMARATE 25 MG TABLET PO SCH ×2 (09:45→14:58)
--- NOTE | 2021-02-11 09:48 | Psychiatric Progress Note ---
Date of Service February 11, 2021 Impression / Recommendations Impression 56 yo female with schizophrenia, recurrent hospitalization for ideas of reference and suicidal gesture. 02/11--slow improvement, declines additional med changes and doesn't meet criteria for forced meds Plan--continue current meds and tx plan. Risk Factors Assessment : Yes Do You Have Access To A Gun?: No Mental Health Diagnoses: Yes Substance Use Disorders: No Previous Attempt: Yes Previous Psychiatric Hospitalization: Yes Hopelessness: Yes Protective Factors Assessment [employer]ah[employer]ism Beliefs: Yes : No Employed: No Supportive Family: Yes Interval History Chief Complaint "my meds are fine thank you". Review of Systems Sleep Information Total Hours of Sleep: 5.5 Sleep Comments: pt given vistaril per rn. pt on q-15 minute checks Meal Information Percent Meal Consumed - Breakfast: 100 Percent Meal Consumed - Lunch: 100 Percent Meal Consumed - Dinner: 100 Subjective Subjective Patient was seen & assessed and interval progress reviewed with nursing and social work. Less talking to self yesterday, still seems to have a harder time/isolate self more in pm. Slept better overnight despite 2 am gluc check. Physical Exam Psychiatric Orientation: alert Apperance: appropriately groomed Eye Contact: + fair eye contact Motor Behavior: no abnormal motor movements Speech: normal rate/rhythm/volume of speech Affect: + depressed affect Mood: + depressed mood Thought Process: goal directed thought process and + tangential thought process Thought Content: + paranoid and + delusions Homicidal Thoughts: denies homicidal thoughts Hallucinations: no auditory hallucinations and no visual hallucinations Cognition: attention grossly intact and language grossly intact Estimated Intelligence: + above average estimated intelligence Insight: + poor insight Judgement: + poor judgement Vital Signs (Past 24 Hours) Last Vital Signs Temp 36.5 C 02/11/21 06:00 Pulse 81 02/11/21 06:32 Resp 16 02/11/21 06:00 BP 147/81 H 02/11/21 06:32 Pulse Ox 99 02/06/21 12:57 Results & Data ([facility]) Laboratory Results Laboratory Results - last 24 hr 02/10/21 02/10/21 02/10/21 12:59 17:23 19:14 POC Glucose 115 H 128 H 240 H 02/11/21 02/11/21 02:02 07:49 POC Glucose 233 H 172 H Current Inpatient Medications Current Inpatient Medications: Current Inpatient Medications Acetaminophen (Acetaminophen 325 Mg Tab) 650 mg PO Q4H PRN PRN Reason: Headache or Minor Fever Stop: 03/08/21 12:11 Al Hydrox/Mg Hydrox/Simethicone (Aluminum/Magnesium Susp 30 Ml Udc) 30 ml PO Q4H PRN PRN Reason: GI Upset Stop: 03/08/21 12:11 Aspirin (Aspirin 81 Mg Ectab) 81 mg PO DAILY ANNAMARIA Stop: 03/09/21 08:59 Last Admin: 02/10/21 08:47 Dose: 81 mg Documented by: Atorvastatin Calcium (Atorvastatin 40 Mg Tab) 80 mg PO HS ANNAMARIA Stop: 03/08/21 20:59 Last Admin: 02/10/21 21:40 Dose: 40 mg Documented by: Benztropine Mesylate (Benztropine Mesylate 1 Mg Tab) 1 mg PO HS ANNAMARIA Stop: 03/08/21 20:59 Last Admin: 02/10/21 21:40 Dose: 1 mg Documented by: Benztropine Mesylate (Benztropine Mesylate 1 Mg Tab) 1 mg PO Q8 PRN PRN Reason: Muscle Spasm Stop: 03/08/21 12:22 Bismuth Subsalicylate (Bismuth Subsalicylate Liqd 236 Ml) 15 ml PO PRN PRN PRN Reason: Loose Stool Stop: 03/08/21 12:11 Cyanocobalamin (Cyanocobalamin 500 Mcg Tablet (Vitamin B-12)) 1,000 mcg PO DAILY ANNAMARIA Stop: 03/09/21 08:59 Last Admin: 02/10/21 08:47 Dose: 1,000 mcg Documented by: Dextrose (Dextrose 50% 50 Ml Syringe) 25 - 50 ml IV UD PRN; Protocol PRN Reason: Hypoglycemia Protocol Stop: 03/11/21 11:29 Ergocalciferol (Ergocalciferol 50,000 Units 1250 Mcg Cap) 50,000 units PO Tu@0900 ANNAMARIA Stop: 03/11/21 08:59 Last Admin: 02/09/21 08:49 Dose: 50,000 units Documented by: Fenofibrate (Fenofibrate Nanocrystallized 145 Mg Tablet) 145 mg PO DAILY [facility] Stop: 03/13/21 08:59 Ferrous Sulfate (Ferrous Sulfate 325 Mg Tab) 325 mg PO DAILY ANNAMARIA Stop: 03/12/21 08:59 Last Admin: 02/10/21 08:47 Dose: 325 mg Documented by: Glucagon (Glucagon For Inj 1 Mg Vial) 1 mg IM UD PRN; Protocol PRN Reason: Hypoglycemia Protocol Stop: 03/11/21 11:29 Glucose (Glucose 40% Gel 15 Gm Tube) 15 - 30 gm PO UD PRN; Protocol PRN Reason: Hypoglycemia Protocol Stop: 03/11/21 11:29 Glucose (Glucose 10 Tabs/Tube) 4 - 8 tabs PO UD PRN; Protocol PRN Reason: Hypoglycemia Protocol Stop: 03/11/21 11:29 HCTZ/Losartan Potassium (Losartan/Hctz 50/12.5mg Tab) 1 tab PO DAILY ANNAMARIA Stop: 03/09/21 08:59 Last Admin: 02/10/21 08:47 Dose: 1 tab Documented by: Haloperidol (Haloperidol 5 Mg Tab) 5 mg PO Q6 PRN PRN Reason: Anxiety/Agitation Stop: 03/12/21 08:50 Hydroxyzine HCl (Hydroxyzine Hcl 25 Mg Tab) 50 mg PO HSZ PRN PRN Reason: Insomnia Stop: 03/08/21 12:11 Last Admin: 02/11/21 01:45 Dose: 50 mg Documented by: Hydroxyzine HCl (Hydroxyzine Hcl 25 Mg Tab) 25 mg PO Q6 PRN PRN Reason: Anxiety Stop: 03/11/21 10:54 Last Admin: 02/09/21 16:46 Dose: 25 mg Documented by: Insulin Aspart (Insulin Aspart 100 Units/Ml 3 Ml Pen) 0 units SC ACHS [facility] Stop: 03/12/21 18:29 Last Admin: 02/10/21 21:40 Dose: Not Given Documented by: Insulin Detemir (Insulin Detemir Flexpen/Flex Touch 100 Units/Ml 3ml) 0 units SC BID ANNAMARIA; Protocol Stop: 03/10/21 20:59 Last Admin: 02/10/21 22:25 Dose: 300 units Documented by: Lorazepam (Lorazepam 1 Mg Tab) 1 mg PO Q6 PRN PRN Reason: Anxiety/Agitation Stop: 03/08/21 12:22 Last Admin: 02/10/21 08:48 Dose: 1 mg Documented by: Magnesium Hydroxide (Magnesium Hydroxide Susp 30 Ml Udc) 30 ml PO DAILY PRN PRN Reason: Constipation Stop: 03/08/21 12:11 Metformin HCl (Metformin Hcl Er 500 Mg Tabcr) 500 mg PO BIDM ANNAMARIA Stop: 03/08/21 17:44 Last Admin: 02/10/21 19:17 Dose: 500 mg Documented by: Methimazole (Methimazole 5 Mg Tablet) 10 mg PO DAILY ANNAMARIA Stop: 03/09/21 08:59 Last Admin: 02/10/21 08:53 Dose: 5 mg Documented by: Miscellaneous (Carbohydrates For Hypoglycemia ) 15 - 30 gm PO UD PRN PRN Reason: Hypoglycemia Treatment Stop: 03/11/21 11:29 Miscellaneous Information (Pharmacy Glycemic Mgmt Consult) 1 ea N/A UD PRN PRN Reason: Consult Stop: 03/08/21 13:23 Olanzapine (Olanzapine 10 Mg Tab) 30 mg PO HS ANNAMARIA Stop: 03/08/21 21:59 Last Admin: 02/10/21 21:40 Dose: 30 mg Documented by: Olanzapine (Olanzapine 5 Mg Tablet) 5 mg PO DAILY@1500 ANNMAARIA Stop: 03/08/21 14:59 Last Admin: 02/10/21 14:52 Dose: 5 mg Documented by: Quetiapine Fumarate (Quetiapine Fumarate 25 Mg Tablet) 50 mg PO BID@0900,1500 ANNAMARIA Stop: 03/08/21 14:59 Last Admin: 02/10/21 14:52 Dose: 50 mg Documented by: Quetiapine Fumarate (Quetiapine Fumarate 25 Mg Tablet) 50 mg PO Q6 PRN PRN Reason: Anxiety/Agitation Stop: 03/08/21 17:59 Last Admin: 02/10/21 00:53 Dose: 50 mg Documented by: Sodium Chloride (Sodium Chloride 0.65% Na Soln 45 Ml ([place])) 1 - 2 sprays NA PRN PRN PRN Reason: Nasal Dryness/Congestion Stop: 03/08/21 12:11 Zolpidem Tartrate (Zolpidem Tartrate 10 Mg Tab) 10 mg PO HS ANNAMARIA Stop: 03/12/21 21:59 Last Admin: 02/10/21 21:40 Dose: 10 mg Documented by: Mental Health & Subst Abuse Tx Psychiatrist Name of Psychiatrist: Irma Card Psychiatrist's Date of Appointment with Psychiatrist: 02/19/21 Time of Appointment with Psychiatrist: 1:40pm Psychiatric Appointment Comment: [address] [place] [address] Therapist Name of Therapist: Irma Stephen Therapist's Date of Therapist Appointment: 02/16/21 Time of Therapist Appointment: 10 a.m Therapy Appointment Comment: [address] [facility], [place] Casino Floor Person Name of Casino Floor Person: ADRIEL Dickey Phone Number for Casino Floor Person: [phone] Post Discharge Appointments Primary Care Physician Name Of Family Doctor: JAYJAY Reece Primary Care Date of Appointment with PCP: 02/22/21 Time of Appointment with PCP: 11:20a.m Provider Appointment Comment: [address], [place] [address] Contact Information Discharge Discharge Address: [facility], [address] [place] [address]
[2021-02-11] MEDS: LORazepam 1 MG TAB PO PRN (10:21)
[2021-02-11] MEDS: OLANZapine 5 MG TABLET PO SCH (14:58)
[2021-02-11] MEDS: BENZTROPINE MESYLATE 1 MG TAB PO SCH (21:21)
[2021-02-11] MEDS: ATORVASTATIN 40 MG TAB PO SCH (21:21)
[2021-02-11] MEDS: ZOLPIDEM TARTRATE 10 MG TAB PO SCH (21:21)
[2021-02-11] MEDS: OLANZapine 10 MG TAB PO SCH (21:21)
[2021-02-12] MEDS: hydrOXYzine HCl 25 MG TAB PO PRN (02:36)
--- NOTE | 2021-02-12 08:57 | Psychiatric Progress Note ---
Date of Service February 12, 2021 Impression / Recommendations Impression 56 yo female with schizophrenia, recurrent hospitalization for ideas of reference and suicidal gesture. 02/12--ongiong symptoms, declines additional med changes, is volunatry and doesn't meet criteria for forced meds Plan--continue current meds and tx plan. Risk Factors Assessment : Yes Do You Have Access To A Gun?: No Mental Health Diagnoses: Yes Substance Use Disorders: No Previous Attempt: Yes Previous Psychiatric Hospitalization: Yes Hopelessness: Yes Protective Factors Assessment Spiritism Beliefs: Yes : No Employed: No Supportive Family: Yes Interval History Chief Complaint "my meds are fine thank you". Review of Systems Sleep Information Total Hours of Sleep: 5 Sleep Comments: pt's sleep was broken through the night and she required multiple PRNs for insomnia and anxiety Meal Information Percent Meal Consumed - Breakfast: 100 Percent Meal Consumed - Lunch: 100 Percent Meal Consumed - Dinner: 100 Subjective Subjective Patient was seen & assessed and interval progress reviewed with treatment team. Still appears tired and withdrawn at times. Patient is not sleeping well--Vistaril most effective this stay. She is seen talking to self at times, did state a voice was telling her not to take her meds yesterday but ultimately complied. Physical Exam Psychiatric Orientation: alert Apperance: appropriately groomed Eye Contact: + fair eye contact Motor Behavior: no abnormal motor movements Speech: normal rate/rhythm/volume of speech Affect: + depressed affect Mood: + depressed mood Thought Process: goal directed thought process and + tangential thought process Thought Content: + paranoid and + delusions Homicidal Thoughts: denies homicidal thoughts Hallucinations: no auditory hallucinations and no visual hallucinations Cognition: attention grossly intact and language grossly intact Estimated Intelligence: + above average estimated intelligence Insight: + limited insight Judgement: + limited judgement Vital Signs (Past 24 Hours) Last Vital Signs Temp 36.6 C 02/12/21 06:00 Pulse 81 02/12/21 06:23 Resp 16 02/12/21 06:00 BP 124/83 02/12/21 06:23 Pulse Ox 99 02/06/21 12:57 Results & Data ([facility]) Laboratory Results Laboratory Results - last 24 hr 02/11/21 02/11/21 02/11/21 11:58 17:14 20:33 POC Glucose 188 H 126 H 210 H 02/12/21 08:48 POC Glucose 172 H Current Inpatient Medications Current Inpatient Medications: Current Inpatient Medications Acetaminophen (Acetaminophen 325 Mg Tab) 650 mg PO Q4H PRN PRN Reason: Headache or Minor Fever Stop: 03/08/21 12:11 Al Hydrox/Mg Hydrox/Simethicone (Aluminum/Magnesium Susp 30 Ml Udc) 30 ml PO Q4 H PRN PRN Reason: GI Upset Stop: 03/08/21 12:11 Aspirin (Aspirin 81 Mg Ectab) 81 mg PO DAILY AN[facility]ARIA Stop: 03/09/21 08:59 Last Admin: 02/11/21 09:42 Dose: 81 mg Documented by: Atorvastatin Calcium (Atorvastatin 40 Mg Tab) 80 mg PO HS ANNAMARIA Stop: 03/08/21 20:59 Last Admin: 02/11/21 21:21 Dose: 40 mg Documented by: Benztropine Mesylate (Benztropine Mesylate 1 Mg Tab) 1 mg PO HS ANNAMARIA Stop: 03/08/21 20:59 Last Admin: 02/11/21 21:21 Dose: 1 mg Documented by: Benztropine Mesylate (Benztropine Mesylate 1 Mg Tab) 1 mg PO Q8 PRN PRN Reason: Muscle Spasm Stop: 03/08/21 12:22 Bismuth Subsalicylate (Bismuth Subsalicylate Liqd 236 Ml) 15 ml PO PRN PRN PRN Reason: Loose Stool Stop: 03/08/21 12:11 Cyanocobalamin (Cyanocobalamin 500 Mcg Tablet (Vitamin B-12)) 1,000 mcg PO DAILY ANNAMARIA Stop: 03/09/21 08:59 Last Admin: 02/11/21 09:42 Dose: 1,000 mcg Documented by: Dextrose (Dextrose 50% 50 Ml Syringe) 25 - 50 ml IV UD PRN; Protocol PRN Reason: Hypoglycemia Protocol Stop: 03/11/21 11:29 Ergocalciferol (Ergocalciferol 50,000 Units 1250 Mcg Cap) 50,000 units PO Tu@0900 AN[facility] Stop: 03/11/21 08:59 Last Admin: 02/09/21 08:49 Dose: 50,000 units Documented by: Fenofibrate (Fenofibrate Nanocrystallized 145 Mg Tablet) 145 mg PO DAILY ANNAMARIA Stop: 03/13/21 08:59 Last Admin: 02/11/21 09:42 Dose: 145 mg Documented by: Ferrous Sulfate (Ferrous Sulfate 325 Mg Tab) 325 mg PO DAILY [facility] Stop: 03/12/21 08:59 Last Admin: 02/11/21 09:43 Dose: 325 mg Documented by: Glucagon (Glucagon For Inj 1 Mg Vial) 1 mg IM UD PRN; Protocol PRN Reason: Hypoglycemia Protocol Stop: 03/11/21 11:29 Glucose (Glucose 40% Gel 15 Gm Tube) 15 - 30 gm PO UD PRN; Protocol PRN Reason: Hypoglycemia Protocol Stop: 03/11/21 11:29 Glucose (Glucose 10 Tabs/Tube) 4 - 8 tabs PO UD PRN; Protocol PRN Reason: Hypoglycemia Protocol Stop: 03/11/21 11:29 HCTZ/Losartan Potassium (Losartan/Hctz 50/12.5mg Tab) 1 tab PO DAILY [facility] Stop: 03/09/21 08:59 Last Admin: 02/11/21 09:44 Dose: 1 tab Documented by: Haloperidol (Haloperidol 5 Mg Tab) 5 mg PO Q6 PRN PRN Reason: Anxiety/Agitation Stop: 03/12/21 08:50 Last Admin: 02/12/21 00:07 Dose: 5 mg Documented by: Hydroxyzine HCl (Hydroxyzine Hcl 25 Mg Tab) 50 mg PO HSZ PRN PRN Reason: Insomnia Stop: 03/08/21 12:11 Last Admin: 02/12/21 02:36 Dose: 50 mg Documented by: Hydroxyzine HCl (Hydroxyzine Hcl 25 Mg Tab) 25 mg PO Q6 PRN PRN Reason: Anxiety Stop: 03/11/21 10:54 Last Admin: 02/11/21 18:26 Dose: 25 mg Documented by: Insulin Aspart (Insulin Aspart 100 Units/Ml 3 Ml Pen) 0 units SC ACHS [facility] Stop: 03/12/21 18:29 Last Admin: 02/11/21 21:25 Dose: 17 units Documented by: Insulin Detemir (Insulin Detemir Flexpen/Flex Touch 100 Units/Ml 3ml) 0 units SC BID [facility]; Protocol Stop: 03/10/21 20:59 Last Admin: 02/11/21 21:24 Dose: 105 units Documented by: Lorazepam (Lorazepam 1 Mg Tab) 1 mg PO Q6 PRN PRN Reason: Anxiety/Agitation Stop: 03/08/21 12:22 Last Admin: 02/11/21 10:21 Dose: 1 mg Documented by: Magnesium Hydroxide (Magnesium Hydroxide Susp 30 Ml Udc) 30 ml PO DAILY PRN PRN Reason: Constipation Stop: 03/08/21 12:11 Metformin HCl (Metformin Hcl Er 500 Mg Tabcr) 500 mg PO BIDM ANNAMARIA Stop: 03/08/21 17:44 Last Admin: 02/11/21 17:20 Dose: 500 mg Documented by: Methimazole (Methimazole 5 Mg Tablet) 10 mg PO DAILY [facility] Stop: 03/09/21 08:59 Last Admin: 02/11/21 09:44 Dose: 5 mg Documented by: Miscellaneous (Carbohydrates For Hypoglycemia ) 15 - 30 gm PO UD PRN PRN Reason: Hypoglycemia Treatment Stop: 03/11/21 11:29 Miscellaneous Information (Pharmacy Glycemic Mgmt Consult) 1 ea N/A UD PRN PRN Reason: Consult Stop: 03/08/21 13:23 Olanzapine (Olanzapine 10 Mg Tab) 30 mg PO HS [facility] Stop: 03/08/21 21:59 Last Admin: 02/11/21 21:21 Dose: 30 mg Documented by: Olanzapine (Olanzapine 5 Mg Tablet) 5 mg PO DAILY@1500 [facility] Stop: 03/08/21 14:59 Last Admin: 02/11/21 14:58 Dose: 5 mg Documented by: Quetiapine Fumarate (Quetiapine Fumarate 25 Mg Tablet) 50 mg PO BID@0900,1500 [facility] Stop: 03/08/21 14:59 Last Admin: 02/11/21 14:58 Dose: 50 mg Documented by: Quetiapine Fumarate (Quetiapine Fumarate 25 Mg Tablet) 50 mg PO Q6 PRN PRN Reason: Anxiety/Agitation Stop: 03/08/21 17:59 Last Admin: 02/10/21 00:53 Dose: 50 mg Documented by: Sodium Chloride (Sodium Chloride 0.65% Na Soln 45 Ml ([place])) 1 - 2 sprays NA PRN PRN PRN Reason: Nasal Dryness/Congestion Stop: 03/08/21 12:11 Zolpidem Tartrate (Zolpidem Tartrate 10 Mg Tab) 10 mg PO HS [facility] Stop: 03/12/21 21:59 Last Admin: 02/11/21 21:21 Dose: 10 mg Documented by: Mental Health & Subst Abuse Tx Psychiatrist Name of Psychiatrist: Irma Card Psychiatrist's Date of Appointment with Psychiatrist: 02/19/21 Time of Appointment with Psychiatrist: 1:40pm Psychiatric Appointment Comment: [phone], [place] [address] Therapist Name of Therapist: Irma Stephen Therapist's Date of Therapist Appointment: 02/16/21 Time of Therapist Appointment: 10 a.m Therapy Appointment Comment: [id number] [facility], [place] Stator Connector Name of Stator Connector: [facility] - Keli Phone Number for Stator Connector: [phone] Post Discharge Appointments Primary Care Physician Name Of Family Doctor: JAYJAY Reece Primary Care Date of Appointment with PCP: 02/22/21 Time of Appointment with PCP: 11:20a.m Provider Appointment Comment: [address], [place] [address] Contact Information Discharge Discharge Address: [facility], [address] [place] [address]
--- NOTE | 2021-02-12 09:00 | Pharmacy Report ---
Pharmacy Glycemic Short Note 2 - Date of Service February 12, 2021 - Glycemic Short BSG Results (Last 24 hours): 02/11/21 02/11/21 02/11/21 11:58 17:14 20:33 POC Glucose 188 H 126 H 210 H 02/12/21 08:48 POC Glucose 172 H OUTPATIENT ANTIDIABETIC REGIMEN: * Jardiance (empagliflozin) 10 mg PO Daily * Levemir 140 units SQ AM + 100 units SQ PM * Victoza (liraglutide) 1.8mg SQ daily * Metformin 500mg PO BIDM * A1c = 9% on 11/12/20 ASSESSMENT: 02/12 * Pt has received 327 units of insulin over the past 24hrs * 210 units of basal with Levemir * 117 units of bolus with NovoLog * BSGs [phone] mg/dl * AM fasting BSG is still elevated at 172 mg/dl despite dose increase of Levemir yesterday. Will continue to titrate upwards to achieve goal fasting BSG < 140 * Post-prandial BSGs elevated indicating more CHO coverage needed. Will tighten CR but loosen CR since Levemir is being increased again. BSG 188 --> 126 yesterday from lunch to dinner after receiving both CF + CR. Since we are tightening CR today loosening CF will be necessary to prevent subsequent low bsg when CF+CR administered for above goal range BSG 02/09/21: * Patient received 308 units of insulin yesterday, 186 bolus, 122 basal * BSGs 184,192,175,203 mg/dL yesterday * Overall BSGs improved. Will tighten novolog scale again today. Fasting BSG also improving continue with current lantus scale. 02/08/21 * Patient is currently receiving an average of 292 units of insulin per day * 170 units of basal insulin * 122 units of prandial/correctional insulin * BSGs ranging 208 - 252 over the past 24hrs * Risk factors for insulin resistance are constant over the past 24hrs * Anticipating insulin regimen will need increased for the next 24hrs d/t uncontrolled BSGs * AM Fasting BSG = 217 --- patient was previously controlled on Levemir 85 units BID. Will provide a 10% higher dose if BSG remains above 180 mg/dL * Total daily dose = ~320 therefore increasing doses. * Post-prandial BSGs are elevated/BSGs rise throughout the day therefore Tighten CF/CR 02/06/21 * 56yo T2DM female known to pharmacy from previous admissions/glycemic consults * Pt is maintained on multiple antidiabetic agents and high dose insulin as an outpatient. Typically; we have held the non-formulary agents and titrated the insulin dosing. In the past, patient has NOT required her high dose outpatient insulin dosing despite holding other antidiabetic agents. Likely d/t changes in CHO intake in house as compared to at home. * Pt did receive her Levemir dose of 100 units last evening around 0000 but did NOT receive her AM dose of Levemir. * BSG high on admission because she ate a grilled cheese sandwich in the ER without CHO coverage. * Will initiate SQ basal bolus regimen per previous admissions and titrate based on BSG trends. PLAN FOR INPATIENT GLYCEMIC CONTROL: * Hold outpatient oral diabetes medications * Basal insulin * Levemir 105-115 units SQ BID (115 units if BSG > 160 mg/dL) * Bolus insulin * NovoLog per scale ACHS or Q6hrs while NPO * Goal Range: Low 110 mg/dL - High 140 mg/dL * Correction Factor: 9 mg/dL/unit * Nutritional / Prandial insulin per carb ratio of 1 unit per 1.5 grams CHO consumed PLAN FOR DISCHARGE: * TBD
[2021-02-12] MEDS: INSULIN DETEMIR FLEXPEN/FLEX TOUCH 100 UNITS/ML 3ML SC SCH ×2 (09:38→09:39)
[2021-02-12] MEDS: INSULIN ASPART 100 UNITS/ML 3 ML PEN SC SCH ×4 (09:40→21:26)
[2021-02-12] MEDS: CYANOCOBALAMIN 500 MCG TABLET (VITAMIN B-12) PO SCH (09:48)
[2021-02-12] MEDS: ASPIRIN 81 MG ECTAB PO SCH (09:48)
[2021-02-12] MEDS: FENOFIBRATE NANOCRYSTALLIZED 145 MG TABLET PO SCH (09:49)
[2021-02-12] MEDS: methIMAzole 5 MG TABLET PO SCH (09:49)
[2021-02-12] MEDS: FERROUS SULFATE 325 MG TAB PO SCH (09:49)
[2021-02-12] MEDS: QUEtiapine FUMARATE 25 MG TABLET PO SCH ×2 (09:49→15:03)
[2021-02-12] MEDS: metFORMIN HCL ER 500 MG TABCR PO SCH ×2 (09:49→17:18)
[2021-02-12] MEDS: LOSARTAN/HCTZ 50/12.5MG TAB PO SCH (09:49)
[2021-02-12] MEDS: LORazepam 1 MG TAB PO PRN (13:10)
[2021-02-12] MEDS: OLANZapine 5 MG TABLET PO SCH (15:03)
[2021-02-12] MEDS: INSULIN DETEMIR SC SCH (21:21)
[2021-02-12] MEDS: ZOLPIDEM TARTRATE 10 MG TAB PO SCH (21:21)
[2021-02-12] MEDS: hydrOXYzine HCl 25 MG TAB PO SCH (21:22)
[2021-02-12] MEDS: ATORVASTATIN 40 MG TAB PO SCH (21:22)
[2021-02-12] MEDS: OLANZapine 10 MG TAB PO SCH (21:22)
[2021-02-12] MEDS: BENZTROPINE MESYLATE 1 MG TAB PO SCH (21:22)
[2021-02-13] MEDS: hydrOXYzine HCl 25 MG TAB PO SCH ×2 (00:28→20:41)
[2021-02-13] MEDS: ASPIRIN 81 MG ECTAB PO SCH (09:16)
[2021-02-13] MEDS: FENOFIBRATE NANOCRYSTALLIZED 145 MG TABLET PO SCH (09:17)
[2021-02-13] MEDS: LOSARTAN/HCTZ 50/12.5MG TAB PO SCH (09:17)
[2021-02-13] MEDS: FERROUS SULFATE 325 MG TAB PO SCH (09:17)
[2021-02-13] MEDS: CYANOCOBALAMIN 500 MCG TABLET (VITAMIN B-12) PO SCH (09:17)
[2021-02-13] MEDS: metFORMIN HCL ER 500 MG TABCR PO SCH ×2 (09:17→17:30)
[2021-02-13] MEDS: methIMAzole 5 MG TABLET PO SCH (09:17)
[2021-02-13] MEDS: QUEtiapine FUMARATE 25 MG TABLET PO SCH ×2 (09:18→15:20)
[2021-02-13] MEDS: INSULIN ASPART 100 UNITS/ML 3 ML PEN SC SCH (09:23)
[2021-02-13] MEDS: INSULIN DETEMIR SC SCH ×2 (09:24→20:38)
[2021-02-13] MEDS: LORazepam 1 MG TAB PO PRN (11:10)
--- NOTE | 2021-02-13 12:16 | Psychiatric Progress Note ---
Date of Service February 13, 2021 Impression / Recommendations Impression 56 yo female with schizophrenia, recurrent hospitalization for ideas of reference and suicidal gesture. 02/12--ongiong symptoms, declines additional med changes, is volunatry and doesn't meet criteria for forced meds Plan--continue current meds and tx plan. (1) Schizophrenia: 02/12/2021atient reporting improvement of symptoms of psychosis, does still complain of mood symptoms. We will continue on current regimen for now. 02/10/21--will offer prn Haldol and encourage to replace Seroquel if using regularly. 02/09/21--Ativan prn more effective than additional prn SEroquel or Vistaril as less sedating and better able to participate in programming. 02/08/21--patient remains resistant to medication changes, prns are somewhat sedating, given level of anxiety this am would use Ativan preferentially today. 02/07/21--The patient was admitted to the [facility] ([facility] mental health unit) on q15 min checks (behavioral with suicide precautions) for safety. The p atient will participate in group, recreational, and milieu therapies and will be offered additional individual and family sessions as clinically appropriate. she is declining consideration for antidepressant at this time, has Seroquel prn as anxiety is driven by delusions rather than primary. (2) Diabetes mellitus type 2, uncontrolled: 02/07/21--pharmacy consult for glycemic management, meds ordered. gluc checks. Fasting A1c this am. (3) Hypertriglyceridemia: 02/08/21--aware that her fenofibrate is non-formulary, discussed that she is refusing decreased Seroquel and re-reviewed risks of pancreatitis. 02/07/21--reviewed that current level increased from previous and places at risk for pancreatitis. Appears to have been on fenfibrate previously. Likely worsening due to Seroquel but is low dose and benefits. She voiced understanding and is resistant to med changes at this time. No acute indication for med consult but will ensure f/u with PCP. Risk Factors Assessment : Yes Do You Have Access To A Gun?: No Mental Health Diagnoses: Yes Substance Use Disorders: No Previous Attempt: Yes Previous Psychiatric Hospitalization: Yes Hopelessness: Yes Protective Factors Assessment Druze Beliefs: Yes : No Employed: No Supportive Family: Yes Interval History Chief Complaint "I am feeling a little bit depressed today but I do not think I am ready for an antidepressant.". Review of Systems Sleep Information Total Hours of Sleep: 5.5 Sleep Comments: Pt had difficulty falling and staying asleep. Meal Information Percent Meal Consumed - Breakfast: 100 Percent Meal Consumed - Lunch: 100 Percent Meal Consumed - Dinner: 100 Subjective Subjective Patient was seen & assessed and interval progress reviewed with treatment team nursing and social work. Patient reports feeling somewhat depressed today. Unable to identify any main triggers. Patient states that she does feel somewhat improved from her status when she first came to the unit. Explains that her paranoia and delusions have improved. No side effects of the medication reported or observed. Patient is sleeping decently with approximately 5-1/2 hours of sleep. No issues with appetite as she is eating all of her meals. I spent 30 minutes with the patient, 50% of which was dedicated to counselling and coordination of care. Physical Exam Psychiatric Orientation: alert Apperance: appropriately groomed Eye Contact: + fair eye contact Motor Behavior: no abnormal motor movements Speech: normal rate/rhythm/volume of speech Affect: + depressed affect Mood: + depressed mood Thought Process: goal directed thought process and + tangential thought process Thought Content: + paranoid, + delusions, + persecution and + loneliness Homicidal Thoughts: denies homicidal thoughts Hallucinations: no auditory hallucinations and no visual hallucinations Cognition: attention grossly intact and language grossly intact Estimated Intelligence: + above average estimated intelligence Insight: + limited insight and + poor insight Judgement: + limited judgement and + poor judgement Vital Signs (Past 24 Hours) Last Vital Signs Temp 36.7 C 02/13/21 06:37 Pulse 83 02/13/21 06:37 Resp 16 02/13/21 06:37 BP 133/78 02/13/21 06:37 Pulse Ox 99 02/06/21 12:57 Results & Data ([facility]) Laboratory Results Laboratory Results - last 24 hr 02/12/21 02/12/21 02/12/21 12:32 17:20 21:09 POC Glucose 153 H 142 H 219 H 02/13/21 08:49 POC Glucose 151 H Current Inpatient Medications Current Inpatient Medications: Current Inpatient Medications Acetaminophen (Acetaminophen 325 Mg Tab) 650 mg PO Q4H PRN PRN Reason: Headache or Minor Fever Stop: 03/08/21 12:11 Al Hydrox/Mg Hydrox/Simethicone (Aluminum/Magnesium Susp 30 Ml Udc) 30 ml PO Q4H PRN PRN Reason: GI Upset Stop: 03/08/21 12:11 Aspirin (Aspirin 81 Mg Ectab) 81 mg PO DAILY [facility] Stop: 03/09/21 08:59 Last Admin: 02/13/21 09:16 Dose: 81 mg Documented by: Atorvastatin Calcium (Atorvastatin 40 Mg Tab) 80 mg PO HS AN[facility] Stop: 03/08/21 20:59 Last Admin: 02/12/21 21:22 Dose: 40 mg Documented by: Benztropine Mesylate (Benztropine Mesylate 1 Mg Tab) 1 mg PO HS [facility] Stop: 03/08/21 20:59 Last Admin: 02/12/21 21:22 Dose: 1 mg Documented by: Benztropine Mesylate (Benztropine Mesylate 1 Mg Tab) 1 mg PO Q8 PRN PRN Reason: Muscle Spasm Stop: 03/08/21 12:22 Bismuth Subsalicylate (Bismuth Subsalicylate Liqd 236 Ml) 15 ml PO PRN PRN PRN Reason: Loose Stool Stop: 03/08/21 12:11 Cyanocobalamin (Cyanocobalamin 500 Mcg Tablet (Vitamin B-12)) 1,000 mcg PO DAILY ANNAM[facility] Stop: 03/09/21 08:59 Last Admin: 02/13/21 09:17 Dose: 1,000 mcg Documented by: Dextrose (Dextrose 50% 50 Ml Syringe) 25 - 50 ml IV UD PRN; Protocol PRN Reason: Hypoglycemia Protocol Stop: 03/11/21 11:29 Ergocalciferol (Ergocalciferol 50,000 Units 1250 Mcg Cap) 50,000 units PO Tu@0900 ANNAMARIA Stop: 03/11/21 08:59 Last Admin: 02/09/21 08:49 Dose: 50,000 units Documented by: Fenofibrate (Fenofibrate Nanocrystallized 145 Mg Tablet) 145 mg PO DAILY AN[facility] Stop: 03/13/21 08:59 Last Admin: 02/13/21 09:17 Dose: 145 mg Documented by: Ferrous Sulfate (Ferrous Sulfate 325 Mg Tab) 325 mg PO DAILY ANNAMARIA Stop: 03/12/21 08:59 Last Admin: 02/13/21 09:17 Dose: 325 mg Documented by: Glucagon (Glucagon For Inj 1 Mg Vial) 1 mg IM UD PRN; Protocol PRN Reason: Hypoglycemia Protocol Stop: 03/11/21 11:29 Glucose (Glucose 40% Gel 15 Gm Tube) 15 - 30 gm PO UD PRN; Protocol PRN Reason: Hypoglycemia Protocol Stop: 03/11/21 11:29 Glucose (Glucose 10 Tabs/Tube) 4 - 8 tabs PO UD PRN; Protocol PRN Reason: Hypoglycemia Protocol Stop: 03/11/21 11:29 HCTZ/Losartan Potassium (Losartan/Hctz 50/12.5mg Tab) 1 tab PO DAILY [facility] Stop: 03/09/21 08:59 Last Admin: 02/13/21 09:17 Dose: 1 tab Documented by: Hydroxyzine HCl (Hydroxyzine Hcl 25 Mg Tab) 25 mg PO Q6 PRN PRN Reason: Anxiety Stop: 03/11/21 10:54 Last Admin: 02/11/21 18:26 Dose: 25 mg Documented by: Hydroxyzine HCl (Hydroxyzine Hcl 25 Mg Tab) 50 mg PO HSZ [facility] Stop: 03/14/21 21:59 Last Admin: 02/13/21 00:28 Dose: 50 mg Documented by: Insulin Aspart (Insulin Aspart 100 Units/Ml Vial) 0 units SC ACHS [facility] Stop: 03/15/21 11:59 Insulin Detemir (Insulin Detemir) 0 units SC BID [facility]; Protocol Stop: 03/14/21 20:59 Last Admin: 02/13/21 09:24 Dose: 105 units Documented by: Lorazepam (Lorazepam 1 Mg Tab) 1 mg PO Q6 PRN PRN Reason: Anxiety/Agitation Stop: 03/08/21 12:22 Last Admin: 02/13/21 11:10 Dose: 1 mg Documented by: Magnesium Hydroxide (Magnesium Hydroxide Susp 30 Ml Udc) 30 ml PO DAILY PRN PRN Reason: Constipation Stop: 03/08/21 12:11 Metformin HCl (Metformin Hcl Er 500 Mg Tabcr) 500 mg PO BIDM [facility] Stop: 03/08/21 17:44 Last Admin: 02/13/21 09:17 Dose: 500 mg Documented by: Methimazole (Methimazole 5 Mg Tablet) 10 mg PO DAILY [facility] Stop: 03/09/21 08:59 Last Admin: 02/13/21 09:17 Dose: 5 mg Documented by: Miscellaneous (Carbohydrates For Hypoglycemia ) 15 - 30 gm PO UD PRN PRN Reason: Hypoglycemia Treatment Stop: 03/11/21 11:29 Miscellaneous Information (Pharmacy Glycemic Mgmt Consult) 1 ea N/A UD PRN PRN Reason: Consult Stop: 03/08/21 13:23 Olanzapine (Olanzapine 10 Mg Tab) 30 mg PO HS [facility] Stop: 03/08/21 21:59 Last Admin: 02/12/21 21:22 Dose: 30 mg Documented by: Olanzapine (Olanzapine 5 Mg Tablet) 5 mg PO DAILY@1500 [facility] Stop: 03/08/21 14:59 Last Admin: 02/12/21 15:03 Dose: 5 mg Documented by: Quetiapine Fumarate (Quetiapine Fumarate 25 Mg Tablet) 50 mg PO BID@0900,1500 [facility] Stop: 03/08/21 14:59 Last Admin: 02/13/21 09:18 Dose: 50 mg Documented by: Quetiapine Fumarate (Quetiapine Fumarate 25 Mg Tablet) 50 mg PO Q6 PRN PRN Reason: Anxiety/Agitation Stop: 03/08/21 17:59 Last Admin: 02/10/21 00:53 Dose: 50 mg Documented by: Sodium Chloride (Sodium Chloride 0.65% Na Soln 45 Ml ([place])) 1 - 2 sprays NA PRN PRN PRN Reason: Nasal Dryness/Congestion Stop: 03/08/21 12:11 Zolpidem Tartrate (Zolpidem Tartrate 10 Mg Tab) 10 mg PO HS [facility] Stop: 03/12/21 21:59 Last Admin: 02/12/21 21:21 Dose: 10 mg Documented by: Mental Health & Subst Abuse Tx Psychiatrist Name of Psychiatrist: Irma Card Psychiatrist's Date of Appointment with Psychiatrist: 02/19/21 Time of Appointment with Psychiatrist: 1:40pm Psychiatric Appointment Comment: [id number] [place] [address] Therapist Name of Therapist: Irma Stephen Therapist's Date of Therapist Appointment: 02/16/21 Time of Therapist Appointment: 10 a.m Therapy Appointment Comment: [phone] [facility] [place], [place] Alteration Specialist Name of Alteration Specialist: ADRIEL Longo Keli Phone Number for Alteration Specialist: [phone] Post Discharge Appointments Primary Care Physician Name Of Family Doctor: JAYJAY Reece Primary Care Date of Appointment with PCP: 02/22/21 Time of Appointment with PCP: 11:20a.m Provider Appointment Comment: [address], [place] [address] Contact Information Discharge Discharge Address: [address] (1) Schizophrenia Schizophrenia type: paranoid schizophrenia Qualified Code(s): F20.0 - Paranoid schizophrenia (2) Diabetes mellitus type 2, uncontrolled Glycemic state: with hyperglycemia Qualified Code(s): E11.65 - Type 2 diabetes mellitus with hyperglycemia
[2021-02-13] MEDS: INSULIN ASPART 100 UNITS/ML VIAL SC SCH ×3 (14:00→20:35)
[2021-02-13] MEDS: OLANZapine 5 MG TABLET PO SCH (15:20)
[2021-02-13] MEDS: ATORVASTATIN 40 MG TAB PO SCH (20:40)
[2021-02-13] MEDS: BENZTROPINE MESYLATE 1 MG TAB PO SCH (20:40)
[2021-02-13] MEDS: OLANZapine 10 MG TAB PO SCH (20:41)
[2021-02-13] MEDS: ZOLPIDEM TARTRATE 10 MG TAB PO SCH (20:42)
[2021-02-14] MEDS: hydrOXYzine HCl 25 MG TAB PO SCH ×2 (00:07→21:23)
[2021-02-14] MEDS: LORazepam 1 MG TAB PO PRN ×2 (04:20→13:43)
[2021-02-14] MEDS: ASPIRIN 81 MG ECTAB PO SCH (09:01)
[2021-02-14] MEDS: QUEtiapine FUMARATE 25 MG TABLET PO SCH ×2 (09:01→15:11)
[2021-02-14] MEDS: FENOFIBRATE NANOCRYSTALLIZED 145 MG TABLET PO SCH (09:01)
[2021-02-14] MEDS: FERROUS SULFATE 325 MG TAB PO SCH (09:02)
[2021-02-14] MEDS: CYANOCOBALAMIN 500 MCG TABLET (VITAMIN B-12) PO SCH (09:02)
[2021-02-14] MEDS: methIMAzole 5 MG TABLET PO SCH (09:02)
[2021-02-14] MEDS: metFORMIN HCL ER 500 MG TABCR PO SCH ×2 (09:02→17:51)
[2021-02-14] MEDS: LOSARTAN/HCTZ 50/12.5MG TAB PO SCH (09:03)
[2021-02-14] MEDS: INSULIN ASPART 100 UNITS/ML VIAL SC SCH ×4 (09:31→21:29)
[2021-02-14] MEDS: INSULIN DETEMIR SC SCH ×2 (09:38→21:32)
--- NOTE | 2021-02-14 11:15 | Pharmacy Report ---
Pharmacy Glycemic Short Note 2 - Date of Service February 14, 2021 - Glycemic Short BSG Results (Last 24 hours): 02/13/21 02/13/21 02/14/21 16:42 20:15 08:55 POC Glucose 131 H 195 H 147 H OUTPATIENT ANTIDIABETIC REGIMEN: * Jardiance (empagliflozin) 10 mg PO Daily * Levemir 140 units SQ AM + 100 units SQ PM * Victoza (liraglutide) 1.8mg SQ daily * Metformin 500mg PO BIDM * A1c = 9% on 11/12/20 ASSESSMENT: 02/14: * Sanjuanita received a total of 376 units of insulin over the last 24 hours * 220 units basal + 156 units bolus * BSGs were well controlled yesterday: [phone] mg/dL * Fasting BSG stable at 147 mg/dL this AM. Patient continues on Metformin 500 mg PO BIDM * No changes needed to regimen today 02/12: * Pt has received 327 units of insulin over the past 24hrs * 210 units of basal with Levemir * 117 units of bolus with NovoLog * BSGs [phone] mg/dl * AM fasting BSG is still elevated at 172 mg/dl despite dose increase of Levemir yesterday. Will continue to titrate upwards to achieve goal fasting BSG < 140 * Post-prandial BSGs elevated indicating more CHO coverage needed. Will tighten CR but loosen CR since Levemir is being increased again. BSG 188 --> 126 yesterday from lunch to dinner after receiving both CF + CR. Since we are tightening CR today loosening CF will be necessary to prevent subsequent low bsg when CF+CR administered for above goal range BSG PLAN FOR INPATIENT GLYCEMIC CONTROL: * Basal insulin * Levemir 105-115 units SQ BID (115 units if BSG > 160 mg/dL) * Bolus insulin * NovoLog per scale ACHS or Q6hrs while NPO * Goal Range: Low 110 mg/dL - High 140 mg/dL * Correction Factor: 9 mg/dL/unit * Nutritional / Prandial insulin per carb ratio of 1 unit per 1.5 grams CHO consumed PLAN FOR DISCHARGE: * HbA1c was 9.4% on 02/07/21. Continues to trend up for patient. Outpatient fill history is not aligning with 100% compliance per our records. * Goal HbA1c for this patient would be < 7% according to her age and comorbidities. * Would not recommend any changes to insulin at this time. Patient is on max dose Victoza. Could consider maximizing oral antidiabetic agents (Increase metformin by 500 mg/week until goal dose of 1000 mg PO BIDM is reached, increase glipizide by 5 mg/week until max dose of 20 mg PO BIDM is reached, and increase Jardiance to 25 mg PO daily). * Patient dose follow with local endocrinology office so would defer and changes in medications to them at discharge.
--- NOTE | 2021-02-14 12:16 | Psychiatric Progress Note ---
Date of Service February 14, 2021 Impression / Recommendations Impression 56 yo female with schizophrenia, recurrent hospitalization for ideas of reference and suicidal gesture. 02/12--ongiong symptoms, declines additional med changes, is volunatry and doesn't meet criteria for forced meds Plan--continue current meds and tx plan. (1) Schizophrenia: 02/13--patient continues to report improvement of psych process and lack of psychotic symptoms. Does still endorse depressive symptoms but is not willing to take an antidepressant at this time. 02/12/2021atient reporting improvement of symptoms of psychosis, does still complain of mood symptoms. We will continue on current regimen for now. 02/10/21--will offer prn Haldol and encourage to replace Seroquel if using regularly. 02/09/21--Ativan prn more effective than additional prn SEroquel or Vistaril as less sedating and better able to participate in programming. 02/08/21--patient remains resistant to medication changes, prns are somewhat sedating, given level of anxiety this am would use Ativan preferentially today. 02/07/21--The patient was admitted to the [facility] ([facility]) on q15 min checks (behavioral with suicide precautions) for safety. The patient will participate in group, recreational, and milieu therapies and will be offered additional individual and family sessions as clinically appropriate. she is declining consideration for antidepressant at this time, has Seroquel prn as anxiety is driven by delusions rather than primary. (2) Diabetes mellitus type 2, uncontrolled: 02/07/21--pharmacy consult for glycemic management, meds ordered. gluc checks. Fasting A1c this am. (3) Hypertriglyceridemia: 02/08/21--aware that her fenofibrate is non-formulary, discussed that she is refusing decreased Seroquel and re-reviewed risks of pancreatitis. 02/07/21--reviewed that current level increased from previous and places at risk for pancreatitis. Appears to have been on fenfibrate previously. Likely worsening due to Seroquel but is low dose and benefits. She voiced understanding and is resistant to med changes at this time. No acute indication for med con sult but will ensure f/u with PCP. Risk Factors Assessment : Yes Do You Have Access To A Gun?: No Mental Health Diagnoses: Yes Substance Use Disorders: No Previous Attempt: Yes Previous Psychiatric Hospitalization: Yes Hopelessness: Yes Protective Factors Assessment Jewish Beliefs: Yes : No Employed: No Supportive Family: Yes Interval History Chief Complaint "I was a little bit depressed this morning but I am working through it". Review of Systems Sleep Information Total Hours of Sleep: 6.75 Sleep Comments: Patient's sleep was broken through the night and she required PRN medications (see MAR). Meal Information Percent Meal Consumed - Breakfast: 100 Percent Meal Consumed - Lunch: 100 Percent Meal Consumed - Dinner: 100 Subjective Subjective Patient was seen & assessed and interval progress reviewed with treatment team nursing and social work. Patient reports a strong appetite. She does complain of poor sleep last night, but is seen sleeping early this morning. Regarding her mood patient states that she is still somewhat depressed but feels that is improving. She is resistant to start any antidepressants at this time due to prior trials and negative side effects. She is open to the idea of starting antidepressant in the future if her mood fails to improve on an outpatient basis. Patient has denied any psychotic symptoms at this time. I spent 30 minutes with the patient, 50% of which was dedicated to counselling and coordination of care Physical Exam Psychiatric Orientation: alert Apperance: appropriately groomed Eye Contact: + fair eye contact Motor Behavior: no abnormal motor movements Speech: normal rate/rhythm/volume of speech Affect: + depressed affect Mood: + depressed mood Thought Process: goal directed thought process and + tangential thought process Thought Content: + paranoid, + delusions, + persecution and + loneliness Homicidal Thoughts: denies homicidal thoughts Hallucinations: no auditory hallucinations and no visual hallucinations Cognition: attention grossly intact and language grossly intact Estimated Intelligence: + above average estimated intelligence Insight: + limited insight and + poor insight Judgement: + limited judgement and + poor judgement Vital Signs (Past 24 Hours) Last Vital Signs Temp 36.7 C 02/14/21 06:30 Pulse 79 02/14/21 06:31 Resp 16 02/14/21 06:30 BP 113/76 02/14/21 06:31 Pulse Ox 99 02/06/21 12:57 Results & Data ([facility]) Laboratory Results Laboratory Results - last 24 hr 02/13/21 02/13/21 02/14/21 16:42 20:15 08:55 POC Glucose 131 H 195 H 147 H Current Inpatient Medications Current Inpatient Medications: Current Inpatient Medications Acetaminophen (Acetaminophen 325 Mg Tab) 650 mg PO Q4H PRN PRN Reason: Headache or Minor Fever Stop: 03/08/21 12:11 Al Hydrox/Mg Hydrox/Simethicone (Aluminum/Magnesium Susp 30 Ml Udc) 30 ml PO Q4H PRN PRN Reason: GI Upset Stop: 03/08/21 12:11 Aspirin (Aspirin 81 Mg Ectab) 81 mg PO DAILY ANNAMARIA Stop: 03/09/21 08:59 Last Admin: 02/14/21 09:01 Dose: 81 mg Documented by: Atorvastatin Calcium (Atorvastatin 40 Mg Tab) 80 mg PO HS ANNAMARIA Stop: 03/08/21 20:59 Last Admin: 02/13/21 20:40 Dose: 40 mg Documented by: Benztropine Mesylate (Benztropine Mesylate 1 Mg Tab) 1 mg PO HS ANNAMARIA Stop: 03/08/21 20:59 Last Admin: 02/13/21 20:40 Dose: 1 mg Documented by: Benztropine Mesylate (Benztropine Mesylate 1 Mg Tab) 1 mg PO Q8 PRN PRN Reason: Muscle Spasm Stop: 03/08/21 12:22 Bismuth Subsalicylate (Bismuth Subsalicylate Liqd 236 Ml) 15 ml PO PRN PRN PRN Reason: Loose Stool Stop: 03/08/21 12:11 Cyanocobalamin (Cyanocobalamin 500 Mcg Tablet (Vitamin B-12)) 1,000 mcg PO DAILY ANNAMARIA Stop: 03/09/21 08:59 Last Admin: 02/14/21 09:02 Dose: 1,000 mcg Documented by: Dextrose (Dextrose 50% 50 Ml Syringe) 25 - 50 ml IV UD PRN; Protocol PRN Reason: Hypoglycemia Protocol Stop: 03/11/21 11:29 Ergocalciferol (Ergocalciferol 50,000 Units 1250 Mcg Cap) 50,000 units PO Tu@0900 ANNAMARIA Stop: 03/11/21 08:59 Last Admin: 02/09/21 08:49 Dose: 50,000 units Documented by: Fenofibrate (Fenofibrate Nanocrystallized 145 Mg Tablet) 145 mg PO DAILY ANNAMARIA Stop: 03/13/21 08:59 Last Admin: 02/14/21 09:01 Dose: 145 mg Documented by: Ferrous Sulfate (Ferrous Sulfate 325 Mg Tab) 325 mg PO DAILY [facility] Stop: 03/12/21 08:59 Last Admin: 02/14/21 09:02 Dose: 325 mg Documented by: Glucagon (Glucagon For Inj 1 Mg Vial) 1 mg IM UD PRN; Protocol PRN Reason: Hypoglycemia Protocol Stop: 03/11/21 11:29 Glucose (Glucose 40% Gel 15 Gm Tube) 15 - 30 gm PO UD PRN; Protocol PRN Reason: Hypoglycemia Protocol Stop: 03/11/21 11:29 Glucose (Glucose 10 Tabs/Tube) 4 - 8 tabs PO UD PRN; Protocol PRN Reason: Hypoglycemia Protocol Stop: 03/11/21 11:29 HCTZ/Losartan Potassium (Losartan/Hctz 50/12.5mg Tab) 1 tab PO DAILY [facility] Stop: 03/09/21 08:59 Last Admin: 02/14/21 09:03 Dose: 1 tab Documented by: Hydroxyzine HCl (Hydroxyzine Hcl 25 Mg Tab) 25 mg PO Q6 PRN PRN Reason: Anxiety Stop: 03/11/21 10:54 Last Admin: 02/11/21 18:26 Dose: 25 mg Documented by: Hydroxyzine HCl (Hydroxyzine Hcl 25 Mg Tab) 50 mg PO HSZ [facility] Stop: 03/14/21 21:59 Last Admin: 02/14/21 00:07 Dose: 50 mg Documented by: Insulin Aspart (Insulin Aspart 100 Units/Ml Vial) 0 units SC ACHS [facility] Stop: 03/15/21 11:59 Last Admin: 02/14/21 09:31 Dose: 22 units Documented by: Insulin Detemir (Insulin Detemir) 0 units SC BID [facility]; Protocol Stop: 03/14/21 20:59 Last Admin: 02/14/21 09:38 Dose: 105 units Documented by: Lorazepam (Lorazepam 1 Mg Tab) 1 mg PO Q6 PRN PRN Reason: Anxiety/Agitation Stop: 03/08/21 12:22 Last Admin: 02/14/21 04:20 Dose: 1 mg Documented by: Magnesium Hydroxide (Magnesium Hydroxide Susp 30 Ml Udc) 30 ml PO DAILY PRN PRN Reason: Constipation Stop: 03/08/21 12:11 Metformin HCl (Metformin Hcl Er 500 Mg Tabcr) 500 mg PO BIDM [facility] Stop: 03/08/21 17:44 Last Admin: 02/14/21 09:02 Dose: 500 mg Documented by: Methimazole (Methimazole 5 Mg Tablet) 10 mg PO DAILY ANNAMARIA Stop: 03/09/21 08:59 Last Admin: 02/14/21 09:02 Dose: 5 mg Documented by: Miscellaneous (Carbohydrates For Hypoglycemia ) 15 - 30 gm PO UD PRN PRN Reason: Hypoglycemia Treatment Stop: 03/11/21 11:29 Miscellaneous Information (Pharmacy Glycemic Mgmt Consult) 1 ea N/A UD PRN PRN Reason: Consult Stop: 03/08/21 13:23 Olanzapine (Olanzapine 10 Mg Tab) 30 mg PO HS ANNAMARIA Stop: 03/08/21 21:59 Last Admin: 02/13/21 20:41 Dose: 30 mg Documented by: Olanzapine (Olanzapine 5 Mg Tablet) 5 mg PO DAILY@1500 ANNAMARIA Stop: 03/08/21 14:59 Last Admin: 02/13/21 15:20 Dose: 5 mg Documented by: Quetiapine Fumarate (Quetiapine Fumarate 25 Mg Tablet) 50 mg PO BID@0900,1500 ANNAMARIA Stop: 03/08/21 14:59 Last Admin: 02/14/21 09:01 Dose: 50 mg Documented by: Quetiapine Fumarate (Quetiapine Fumarate 25 Mg Tablet) 50 mg PO Q6 PRN PRN Reason: Anxiety/Agitation Stop: 03/08/21 17:59 Last Admin: 02/10/21 00:53 Dose: 50 mg Documented by: Sodium Chloride (Sodium Chloride 0.65% Na Soln 45 Ml ([place])) 1 - 2 sprays NA PRN PRN PRN Reason: Nasal Dryness/Congestion Stop: 03/08/21 12:11 Zolpidem Tartrate (Zolpidem Tartrate 10 Mg Tab) 10 mg PO HS ANNAMARIA Stop: 03/12/21 21:59 Last Admin: 02/13/21 20:42 Dose: 10 mg Documented by: Mental Health & Subst Abuse Tx Psychiatrist Name of Psychiatrist: Irma Card Psychiatrist's Date of Appointment with Psychiatrist: 02/19/21 Time of Appointment with Psychiatrist: 1:40pm Psychiatric Appointment Comment: [phone] [place] [address] Therapist Name of Therapist: Irma Stephen Therapist's Date of Therapist Appointment: 02/16/21 Time of Therapist Appointment: 10 a.m Therapy Appointment Comment: [phone] [facility] [place]IVIA Bradley Development Consultant Name of Development Consultant: ADRIEL Dickey Phone Number for Development Consultant: [phone] Post Discharge Appointments Primary Care Physician Name Of Family Doctor: JAYJAY Reece [facility] Date of Appointment with PCP: 02/22/21 Time of Appointment with PCP: 11:20a.m Provider Appointment Comment: [phone], [place] [address] Contact Information Discharge Discharge Address: [facility], [address] [place] [address] (1) Schizophrenia Schizophrenia type: paranoid schizophrenia Qualified Code(s): F20.0 - Paranoid schizophrenia (2) Diabetes mellitus type 2, uncontrolled Glycemic state: with hyperglycemia Qualified Code(s): E11.65 - Type 2 diabetes mellitus with hyperglycemia
[2021-02-14] MEDS: OLANZapine 5 MG TABLET PO SCH (15:11)
[2021-02-14] MEDS: hydrOXYzine HCl 25 MG TAB PO PRN (16:58)
[2021-02-14] MEDS: ATORVASTATIN 40 MG TAB PO SCH (21:30)
[2021-02-14] MEDS: OLANZapine 10 MG TAB PO SCH (21:31)
[2021-02-14] MEDS: BENZTROPINE MESYLATE 1 MG TAB PO SCH (21:31)
[2021-02-14] MEDS: ZOLPIDEM TARTRATE 10 MG TAB PO SCH (21:36)
[2021-02-15] MEDS: hydrOXYzine HCl 25 MG TAB PO SCH ×2 (00:07→21:21)
[2021-02-15] MEDS: ASPIRIN 81 MG ECTAB PO SCH (08:35)
[2021-02-15] MEDS: CYANOCOBALAMIN 500 MCG TABLET (VITAMIN B-12) PO SCH (08:35)
[2021-02-15] MEDS: metFORMIN HCL ER 500 MG TABCR PO SCH ×2 (08:36→17:25)
[2021-02-15] MEDS: QUEtiapine FUMARATE 25 MG TABLET PO SCH ×2 (08:36→14:50)
[2021-02-15] MEDS: methIMAzole 5 MG TABLET PO SCH (08:36)
[2021-02-15] MEDS: FERROUS SULFATE 325 MG TAB PO SCH (08:36)
[2021-02-15] MEDS: LOSARTAN/HCTZ 50/12.5MG TAB PO SCH (08:36)
[2021-02-15] MEDS: FENOFIBRATE NANOCRYSTALLIZED 145 MG TABLET PO SCH (08:36)
[2021-02-15] MEDS: INSULIN ASPART 100 UNITS/ML VIAL SC SCH ×4 (08:49→21:34)
[2021-02-15] MEDS: INSULIN DETEMIR SC SCH ×2 (08:50→21:23)
--- NOTE | 2021-02-15 14:37 | Pharmacy Report ---
Pharmacy Glycemic Short Note 2 - Date of Service February 15, 2021 - Glycemic Short BSG Results (Last 24 hours): 02/14/21 02/14/21 02/15/21 17:03 21:20 08:26 POC Glucose 167 H 225 H 161 H 02/15/21 12:32 POC Glucose 155 H OUTPATIENT ANTIDIABETIC REGIMEN: * Jardiance (empagliflozin) 10 mg PO Daily * Levemir 140 units SQ AM + 100 units SQ PM * Victoza (liraglutide) 1.8mg SQ daily * Metformin 500mg PO BIDM * A1c = 9% on 11/12/20 ASSESSMENT: 02/15/21 * Sanjuanita received a total of 396 units of insulin over the last 24 hours * 220 units basal + 176 units bolus * BSGs were well controlled yesterday: [phone] mg/dL * Fasting BSG stable at 161 mg/dL this AM. Patient continues on Metformin 500 mg PO BIDM * Patient snacks in evening this is why HS blood sugar is high as sometimes taken after starts eating. * Remove lower dose of Levemir and start 230 units BID. 02/14: * Sanjuanita received a total of 376 units of insulin over the last 24 hours * 220 units basal + 156 units bolus * BSGs were well controlled yesterday: [phone] mg/dL * Fasting BSG stable at 147 mg/dL this AM. Patient continues on Metformin 500 mg PO BIDM * No changes needed to regimen today 02/12: * Pt has received 327 units of insulin over the past 24hrs * 210 units of basal with Levemir * 117 units of bolus with NovoLog * BSGs [phone] mg/dl * AM fasting BSG is still elevated at 172 mg/dl despite dose increase of Levemir yesterday. Will continue to titrate upwards to achieve goal fasting BSG < 140 * Post-prandial BSGs elevated indicating more CHO coverage needed. Will tighten CR but loosen CR since Levemir is being increased again. BSG 188 --> 126 yesterday from lunch to dinner after receiving both CF + CR. Since we are tightening CR today loosening CF will be necessary to prevent subsequent low bsg when CF+CR administered for above goal range BSG PLAN FOR INPATIENT GLYCEMIC CONTROL: * Basal insulin * Levemir 115 units SQ BID * Bolus insulin * NovoLog per scale ACHS or Q6hrs while NPO * Goal Range: Low 110 mg/dL - High 140 mg/dL * Correction Factor: 9 mg/dL/unit * Nutritional / Prandial insulin per carb ratio of 1 unit per 1.5 grams CHO consumed PLAN FOR DISCHARGE: * HbA1c was 9.4% on 02/07/21. Continues to trend up for patient. Outpatient fill history is not aligning with 100% compliance per our records. * Goal HbA1c for this patient would be < 7% according to her age and comorbidities. * Would not recommend any changes to insulin at this time. Patient is on max dose Victoza. Could consider maximizing oral antidiabetic agents (Increase metformin by 500 mg/week until goal dose of 1000 mg PO BIDM is reached, increase glipizide by 5 mg/week until max dose of 20 mg PO BIDM is reached, and increase Jardiance to 25 mg PO daily). * Patient dose follow with local endocrinology office so would defer and changes in medications to them at discharge.
[2021-02-15] MEDS: OLANZapine 5 MG TABLET PO SCH (14:50)
--- NOTE | 2021-02-15 15:50 | Psychiatric Progress Note ---
Date of Service February 15, 2021 Impression / Recommendations Impression 56 yo female with schizophrenia, recurrent hospitalization for ideas of reference and suicidal gesture. 02/15patient has more insight into her delusions and is able to not be distressed by any hallucinations she may experience. Overall she has a decrease in psychotic symptoms. 02/12--ongiong symptoms, declines additional med changes, is volunatry and doesn't meet criteria for forced meds Plan--continue current meds and tx plan. (1) Schizophrenia: 02/13--patient continues to report improvement of psych process and lack of psychotic symptoms. Does still endorse depressive symptoms but is not willing to take an antidepressant at this time. 02/12/2021atient reporting improvement of symptoms of psychosis, does still complain of mood symptoms. We will continue on current regimen for now. 02/10/21--will offer prn Haldol and encourage to replace Seroquel if using regularly. 02/09/21--Ativan prn more effective than additional prn SEroquel or Vistaril as less sedating and better able to participate in programming. 02/08/21--patient remains resistant to medication changes, prns are somewhat sedating, given level of anxiety this am would use Ativan preferentially today. 02/07/21--The patient was admitted to the [facility] ([facility]) on q15 min checks (behavioral with suicide precautions) for safety. The patient will participate in group, recreational, and milieu therapies and will be offered additional individual and family sessions as clinically appropriate. she is declining consideration for antidepressant at this time, has Seroquel prn as anxiety is driven by delusions rather than primary. (2) Diabetes mellitus type 2, uncontrolled: 02/07/21--pharmacy consult for glycemic management, meds ordered. gluc checks. Fasting A1c this am. (3) Hypertriglyceridemia: 02/08/21--aware that her fenofibrate is non-formulary, discussed that she is refusing decreased Seroquel and re-reviewed risks of pancreatitis. 02/07/21--reviewed that current level increased from previous and places at risk for pancreatitis. Appears to have been on fenfibrate previously. Likely worsening due to Seroquel but is low dose and benefits. She voiced understanding and is resistant to med changes at this time. No acute indication for med consult but will ensure f/u with PCP. Risk Factors Assessment : Yes Do You Have Access To A Gun?: No Mental Health Diagnoses: Yes Substance Use Disorders: No Previous Attempt: Yes Previous Psychiatric Hospitalization: Yes Hopelessness: Yes Protective Factors Assessment Rastafarian Beliefs: Yes : No Employed: No Supportive Family: Yes Interval History Chief Complaint "I am doing good today I had a good group.". Review of Systems Sleep Information Total Hours of Sleep: 6.75 Sleep Comments: Patient's sleep was broken through the night and she required PRN medications (see MAR). Meal Information Percent Meal Consumed - Breakfast: 100 Percent Meal Consumed - Lunch: 100 Percent Meal Consumed - Dinner: 100 Subjective Subjective Patient was seen & assessed and interval progress reviewed with treatment team nursing and social work Patient reports that her mood is feeling stable. She attributes this to the group that she had as well as speaking with one of the therapist on the unit, Cliff. Patient does state that she does feel depressed at times, but states that it comes and goes. She is still not interested at this time of starting any antidepressant, and feels that she is better off using her coping mechanisms. Patient states that if her depression worsens she will contact her psychiatrist on outpatient basis to make arrangements for adding an antidepressant to her regimen. She states that she is happy with her current regimen does not want to adjust for fear of upsetting her mood. Patient is compliant with medications, no side effects reported or observed. Patient is eating her meals and sleeping okay. I spent greater than 30 minutes on this patient, 50% of which was dedicated to therapy and coordination of care. Physical Exam Psychiatric Orientation: alert Apperance: appropriately groomed Eye Contact: + fair eye contact Motor Behavior: no abnormal motor movements Speech: normal rate/rhythm/volume of speech Affect: + depressed affect Mood: + depressed mood Thought Process: goal directed thought process and + tangential thought process Thought Content: + paranoid, + delusions, + persecution and + loneliness Homicidal Thoughts: denies homicidal thoughts Hallucinations: no auditory hallucinations and no visual hallucinations Cognition: attention grossly intact and language grossly intact Estimated Intelligence: + above average estimated intelligence Insight: + limited insight and + poor insight Judgement: + limited judgement and + poor judgement Vital Signs (Past 24 Hours) Last Vital Signs Temp 36.4 C L 02/15/21 06:27 Pulse 77 06/21/21 06:27 Resp 16 02/15/21 06:27 BP 136/83 02/15/21 06:27 Pulse Ox 99 02/06/21 12:57 Results & Data ([facility]) Laboratory Results Laboratory Results - last 24 hr 02/14/21 02/14/21 02/15/21 17:03 21:20 08:26 POC Glucose 167 H 225 H 161 H 02/15/21 12:32 POC Glucose 155 H Current Inpatient Medications Current Inpatient Medications: Current Inpatient Medications Acetaminophen (Acetaminophen 325 Mg Tab) 650 mg PO Q4H PRN PRN Reason: Headache or Minor Fever Stop: 03/08/21 12:11 Al Hydrox/Mg Hydrox/Simethicone (Aluminum/Magnesium Susp 30 Ml Udc) 30 ml PO Q4H PRN PRN Reason: GI Upset Stop: 03/08/21 12:11 Aspirin (Aspirin 81 Mg Ectab) 81 mg PO DAILY [facility] Stop: 03/09/21 08:59 Last Admin: 02/15/21 08:35 Dose: 81 mg Documented by: Atorvastatin Calcium (Atorvastatin 40 Mg Tab) 80 mg PO HS [facility] Stop: 03/08/21 20:59 Last Admin: 02/14/21 21:30 Dose: 80 mg Documented by: Benztropine Mesylate (Benztropine Mesylate 1 Mg Tab) 1 mg PO HS [facility] Stop: 03/08/21 20:59 Last Admin: 02/14/21 21:31 Dose: 1 mg Documented by: Benztropine Mesylate (Benztropine Mesylate 1 Mg Tab) 1 mg PO Q8 PRN PRN Reason: Muscle Spasm Stop: 03/08/21 12:22 Bismuth Subsalicylate (Bismuth Subsalicylate Liqd 236 Ml) 15 ml PO PRN PRN PRN Reason: Loose Stool Stop: 03/08/21 12:11 Cyanocobalamin (Cyanocobalamin 500 Mcg Tablet (Vitamin B-12)) 1,000 mcg PO DAILY [facility] Stop: 03/09/21 08:59 Last Admin: 02/15/21 08:35 Dose: 1,000 mcg Documented by: Dextrose (Dextrose 50% 50 Ml Syringe) 25 - 50 ml IV UD PRN; Protocol PRN Reason: Hypoglycemia Protocol Stop: 03/11/21 11:29 Ergocalciferol (Ergocalciferol 50,000 Units 1250 Mcg Cap) 50,000 units PO Tu@0900 [facility] Stop: 03/11/21 08:59 Last Admin: 02/09/21 08:49 Dose: 50,000 units Documented by: Fenofibrate (Fenofibrate Nanocrystallized 145 Mg Tablet) 145 mg PO DAILY [facility] Stop: 03/13/21 08:59 Last Admin: 02/15/21 08:36 Dose: 145 mg Documented by: Ferrous Sulfate (Ferrous Sulfate 325 Mg Tab) 325 mg PO DAILY [facility] Stop: 03/12/21 08:59 Last Admin: 02/15/21 08:36 Dose: 325 mg Documented by: Glucagon (Glucagon For Inj 1 Mg Vial) 1 mg IM UD PRN; Protocol PRN Reason: Hypoglycemia Protocol Stop: 03/11/21 11:29 Glucose (Glucose 40% Gel 15 Gm Tube) 15 - 30 gm PO UD PRN; Protocol PRN Reason: Hypoglycemia Protocol Stop: 03/11/21 11:29 Glucose (Glucose 10 Tabs/Tube) 4 - 8 tabs PO UD PRN; Protocol PRN Reason: Hypoglycemia Protocol Stop: 03/11/21 11:29 HCTZ/Losartan Potassium (Losartan/Hctz 50/12.5mg Tab) 1 tab PO DAILY [facility] Stop: 03/09/21 08:59 Last Admin: 02/15/21 08:36 Dose: 1 tab Documented by: Hydroxyzine HCl (Hydroxyzine Hcl 25 Mg Tab) 25 mg PO Q6 PRN PRN Reason: Anxiety Stop: 03/11/21 10:54 Last Admin: 02/14/21 16:58 Dose: 25 mg Documented by: Hydroxyzine HCl (Hydroxyzine Hcl 25 Mg Tab) 50 mg PO HSZ [facility] Stop: 03/14/21 21:59 Last Admin: 02/15/21 00:07 Dose: 50 mg Documented by: Insulin Aspart (Insulin Aspart 100 Units/Ml Vial) 0 units SC ACHS [facility] Stop: 03/15/21 11:59 Last Admin: 02/15/21 13:02 Dose: 57 units Documented by: Insulin Detemir (Insulin Detemir) 115 units SC BID [facility]; Protocol Stop: 03/17/21 20:59 Lorazepam (Lorazepam 1 Mg Tab) 1 mg PO Q6 PRN PRN Reason: Anxiety/Agitation Stop: 03/08/21 12:22 Last Admin: 02/14/21 13:43 Dose: 1 mg Documented by: Magnesium Hydroxide (Magnesium Hydroxide Susp 30 Ml Udc) 30 ml PO DAILY PRN PRN Reason: Constipation Stop: 03/08/21 12:11 Metformin HCl (Metformin Hcl Er 500 Mg Tabcr) 500 mg PO BIDM [facility] Stop: 03/08/21 17:44 Last Admin: 02/15/21 08:36 Dose: 500 mg Documented by: Methimazole (Methimazole 5 Mg Tablet) 10 mg PO DAILY [facility] Stop: 03/09/21 08:59 Last Admin: 02/15/21 08:36 Dose: 5 mg Documented by: Miscellaneous (Carbohydrates For Hypoglycemia ) 15 - 30 gm PO UD PRN PRN Reason: Hypoglycemia Treatment Stop: 03/11/21 11:29 Miscellaneous Information (Pharmacy Glycemic Mgmt Consult) 1 ea N/A UD PRN PRN Reason: Consult Stop: 03/08/21 13:23 Olanzapine (Olanzapine 10 Mg Tab) 30 mg PO [facility] Stop: 03/08/21 21:59 Last Admin: 02/14/21 21:31 Dose: 30 mg Documented by: Olanzapine (Olanzapine 5 Mg Tablet) 5 mg PO DAILY@1500 [facility] Stop: 03/08/21 14:59 Last Admin: 02/15/21 14:50 Dose: 5 mg Documented by: Quetiapine Fumarate (Quetiapine Fumarate 25 Mg Tablet) 50 mg PO BID@0900,1500 [facility] Stop: 03/08/21 14:59 Last Admin: 02/15/21 14:50 Dose: 50 mg Documented by: Quetiapine Fumarate (Quetiapine Fumarate 25 Mg Tablet) 50 mg PO Q6 PRN PRN Reason: Anxiety/Agitation Stop: 03/08/21 17:59 Last Admin: 02/10/21 00:53 Dose: 50 mg Documented by: Sodium Chloride (Sodium Chloride 0.65% Na Soln 45 Ml ([place])) 1 - 2 sprays NA PRN PRN PRN Reason: Nasal Dryness/Congestion Stop: 03/08/21 12:11 Zolpidem Tartrate (Zolpidem Tartrate 10 Mg Tab) 10 mg PO HS [facility] Stop: 03/12/21 21:59 Last Admin: 02/14/21 21:36 Dose: 10 mg Documented by: Mental Health & Subst Abuse Tx Psychiatrist Name of Psychiatrist: Irma Card Psychiatrist's Date of Appointment with Psychiatrist: 02/19/21 Time of Appointment with Psychiatrist: 1:40pm Psychiatric Appointment Comment: [id number] [place] [address] Therapist Name of Therapist: Irma Stephen Therapist's Date of Therapist Appointment: 02/16/21 Time of Therapist Appointment: 10 a.m Therapy Appointment Comment: [id number] [facility] LIVIA Bradley Electroencephalographic Technician Name of Electroencephalographic Technician: EVELYNU Qing Dickey Phone Number for Electroencephalographic Technician: [phone] Post Discharge Appointments Primary Care Physician Name Of Family Doctor: JAYJAY Reece Primary Care Date of Appointment with PCP: 02/22/21 Time of Appointment with PCP: 11:20a.m Provider Appointment Comment: [address] [place] [address] Contact Information Discharge Discharge Address: [address] (1) Schizophrenia Schizophrenia type: paranoid schizophrenia Qualified Code(s): F20.0 - Paranoid schizophrenia (2) Diabetes mellitus type 2, uncontrolled Glycemic state: with hyperglycemia Qualified Code(s): E11.65 - Type 2 diabetes mellitus with hyperglycemia
[2021-02-15] MEDS: hydrOXYzine HCl 25 MG TAB PO PRN (19:47)
[2021-02-15] MEDS: OLANZapine 10 MG TAB PO SCH ×2 (21:18→21:25)
[2021-02-15] MEDS: BENZTROPINE MESYLATE 1 MG TAB PO SCH (21:18)
[2021-02-15] MEDS: ATORVASTATIN 40 MG TAB PO SCH (21:18)
[2021-02-15] MEDS: ZOLPIDEM TARTRATE 10 MG TAB PO SCH (21:21)
[2021-02-16] MEDS: ASPIRIN 81 MG ECTAB PO SCH (08:43)
[2021-02-16] MEDS: CYANOCOBALAMIN 500 MCG TABLET (VITAMIN B-12) PO SCH (08:43)
[2021-02-16] MEDS: LOSARTAN/HCTZ 50/12.5MG TAB PO SCH (08:44)
[2021-02-16] MEDS: FENOFIBRATE NANOCRYSTALLIZED 145 MG TABLET PO SCH (08:44)
[2021-02-16] MEDS: ERGOCALCIFEROL 50,000 UNITS 1250 MCG CAP PO SCH (08:44)
[2021-02-16] MEDS: FERROUS SULFATE 325 MG TAB PO SCH (08:44)
[2021-02-16] MEDS: methIMAzole 5 MG TABLET PO SCH (08:45)
[2021-02-16] MEDS: QUEtiapine FUMARATE 25 MG TABLET PO SCH ×2 (08:45→14:41)
[2021-02-16] MEDS: metFORMIN HCL ER 500 MG TABCR PO SCH ×2 (08:45→17:23)
[2021-02-16] MEDS: INSULIN ASPART 100 UNITS/ML VIAL SC SCH ×4 (09:03→21:27)
[2021-02-16] MEDS: INSULIN DETEMIR SC SCH ×2 (09:08→21:29)
--- NOTE | 2021-02-16 13:12 | Psychiatric Progress Note ---
Date of Service February 16, 2021 Impression / Recommendations Impression 56 yo female with schizophrenia, recurrent hospitalization for ideas of reference and suicidal gesture. 02/15patient has more insight into her delusions and is able to not be distressed by any hallucinations she may experience. Overall she has a decrease in psychotic symptoms. 02/12--ongiong symptoms, declines additional med changes, is volunatry and doesn't meet criteria for forced meds Plan--continue current meds and tx plan. (1) Schizophrenia: 02/13--patient continues to report improvement of psych process and lack of psychotic symptoms. Does still endorse depressive symptoms but is not willing to take an antidepressant at this time. 02/12/2021atient reporting improvement of symptoms of psychosis, does still complain of mood symptoms. We will continue on current regimen for now. 02/10/21--will offer prn Haldol and encourage to replace Seroquel if using regularly. 02/09/21--Ativan prn more effective than additional prn SEroquel or Vistaril as less sedating and better able to participate in programming. 02/08/21--patient remains resistant to medication changes, prns are somewhat sedating, given level of anxiety this am would use Ativan preferentially today. 02/07/21--The patient was admitted to the [facility] ([facility] mental health unit) on q15 min checks (behavioral with suicide precautions) for safety. The patient will participate in group, recreational, and milieu therapies and will be offered additional individual and family sessions as clinically appropriate. she is declining consideration for antidepressant at this time, has Seroquel prn as anxiety is driven by delusions rather than primary. (2) Diabetes mellitus type 2, uncontrolled: 02/07/21--pharmacy consult for glycemic management, meds ordered. gluc checks. Fasting A1c this am. (3) Hypertriglyceridemia: 02/08/21--aware that her fenofibrate is non-formulary, discussed that she is refusing decreased Seroquel and re-reviewed risks of pancreatitis. 02/07/21--reviewed that current level increased from previous and places at risk for pancreatitis. Appears to have been on fenfibrate previously. Likely worsening due to Seroquel but is low dose and benefits. She voiced understanding and is resistant to med changes at this time. No acute indication for med consult but will ensure f/u with PCP. Risk Factors Assessment : Yes Do You Have Access To A Gun?: No Mental Health Diagnoses: Yes Substance Use Disorders: No Previous Attempt: Yes Previous Psychiatric Hospitalization: Yes Hopelessness: Yes Protective Factors Assessment Spiritism Beliefs: Yes : No Employed: No Supportive Family: Yes Interval History Chief Complaint "I'm okay". Review of Systems Sleep Information Total Hours of Sleep: 5.25 Sleep Comments: pt given vistaril per rn. pt appeared to be asleep @0100 and thereafter. Meal Information Percent Meal Consumed - Breakfast: 80 Percent Meal Consumed - Lunch: 100 Percent Meal Consumed - Dinner: 100 Nutrition Comment: per meal record Subjective Subjective Patient was seen & assessed and interval progress reviewed with treatment team nursing and social work. Patient initially was refusing her insulin this morning. she thought it was contributing to her breathing difficulty. O2 sats obtained and patient was at 95%. she was shown this and informed that her insulin injection would not affect her breathing. Patient eventually did take the insulin. Regarding her mood, patient states that she is feeling stable. She does report occasional hallucinations and delusions, however these are much improved from prior and thought to be patient's baseline. Patient also adds that she is not distressed by these occurrences and is able to talk herself out of it. I spent 30 minutes with the patient, 50% of which was dedicated to counselling and coordination of care Physical Exam Psychiatric Orientation: alert Apperance: appropriately groomed Eye Contact: + fair eye contact Motor Behavior: no abnormal motor movements Speech: normal rate/rhythm/volume of speech Affect: + depressed affect Mood: + depressed mood Thought Process: goal directed thought process and + tangential thought process Thought Content: + paranoid, + delusions, + persecution and + loneliness Homicidal Thoughts: denies homicidal thoughts Hallucinations: no auditory hallucinations and no visual hallucinations Cognition: attention grossly intact and language grossly intact Estimated Intelligence: + above average estimated intelligence Insight: + limited insight and + poor insight Judgement: + limited judgement and + poor judgement Vital Signs (Past 24 Hours) Last Vital Signs Temp 36.4 C L 02/16/21 06:27 Pulse 80 02/16/21 06:28 Resp 16 02/16/21 06:27 BP 106/72 02/16/21 06:28 Pulse Ox 97 02/16/21 09:37 Results & Data ([facility]) Laboratory Results Laboratory Results - last 24 hr 02/15/21 02/15/21 02/16/21 16:50 20:39 08:22 POC Glucose 135 H 133 H 163 H 02/16/21 12:32 POC Glucose 185 H Current Inpatient Medications Current Inpatient Medications: Current Inpatient Medications Acetaminophen (Acetaminophen 325 Mg Tab) 650 mg PO Q4H PRN PRN Reason: Headache or Minor Fever Stop: 03/08/21 12:11 Al Hydrox/Mg Hydrox/Simethicone (Aluminum/Magnesium Susp 30 Ml Udc) 30 ml PO Q4H PRN PRN Reason: GI Upset Stop: 03/08/21 12:11 Aspirin (Aspirin 81 Mg Ectab) 81 mg PO DAILY [facility] Stop: 03/09/21 08:59 Last Admin: 02/16/21 08:43 Dose: 81 mg Documented by: Atorvastatin Calcium (Atorvastatin 40 Mg Tab) 80 mg PO HS [facility] Stop: 03/08/21 20:59 Last Admin: 02/15/21 21:18 Dose: 80 mg Documented by: Benztropine Mesylate (Benztropine Mesylate 1 Mg Tab) 1 mg PO HS [facility] Stop: 03/08/21 20:59 Last Admin: 02/15/21 21:18 Dose: 1 mg Documented by: Benztropine Mesylate (Benztropine Mesylate 1 Mg Tab) 1 mg PO Q8 PRN PRN Reason: Muscle Spasm Stop: 03/08/21 12:22 Bismuth Subsalicylate (Bismuth Subsalicylate Liqd 236 Ml) 15 ml PO PRN PRN PRN Reason: Loose Stool Stop: 03/08/21 12:11 Cyanocobalamin (Cyanocobalamin 500 Mcg Tablet (Vitamin B-12)) 1,000 mcg PO DAILY [facility] Stop: 03/09/21 08:59 Last Admin: 02/16/21 08:43 Dose: 1,000 mcg Documented by: Dextrose (Dextrose 50% 50 Ml Syringe) 25 - 50 ml IV UD PRN; Protocol PRN Reason: Hypoglycemia Protocol Stop: 03/11/21 11:29 Ergocalciferol (Ergocalciferol 50,000 Units 1250 Mcg Cap) 50,000 units PO Tu@0900 [facility] Stop: 03/11/21 08:59 Last Admin: 02/16/21 08:44 Dose: 50,000 units Documented by: Fenofibrate (Fenofibrate Nanocrystallized 145 Mg Tablet) 145 mg PO DAILY [facility] Stop: 03/13/21 08:59 Last Admin: 02/16/21 08:44 Dose: 145 mg Documented by: Ferrous Sulfate (Ferrous Sulfate 325 Mg Tab) 325 mg PO DAILY [facility] Stop: 03/12/21 08:59 Last Admin: 02/16/21 08:44 Dose: 325 mg Documented by: Glucagon (Glucagon For Inj 1 Mg Vial) 1 mg IM UD PRN; Protocol PRN Reason: Hypoglycemia Protocol Stop: 03/11/21 11:29 Glucose (Glucose 40% Gel 15 Gm Tube) 15 - 30 gm PO UD PRN; Protocol PRN Reason: Hypoglycemia Protocol Stop: 03/11/21 11:29 Glucose (Glucose 10 Tabs/Tube) 4 - 8 tabs PO UD PRN; Protocol PRN Reason: Hypoglycemia Protocol Stop: 03/11/21 11:29 HCTZ/Losartan Potassium (Losartan/Hctz 50/12.5mg Tab) 1 tab PO DAILY [facility] Stop: 03/09/21 08:59 Last Admin: 02/16/21 08:44 Dose: 1 tab Documented by: Hydroxyzine HCl (Hydroxyzine Hcl 25 Mg Tab) 25 mg PO Q6 PRN PRN Reason: Anxiety Stop: 03/11/21 10:54 Last Admin: 02/15/21 19:47 Dose: 25 mg Documented by: Hydroxyzine HCl (Hydroxyzine Hcl 25 Mg Tab) 50 mg PO HSZ [facility] Stop: 03/14/21 21:59 Last Admin: 02/15/21 21:21 Dose: 50 mg Documented by: Insulin Aspart (Insulin Aspart 100 Units/Ml Vial) 0 units SC ACHS [facility] Stop: 03/15/21 11:59 Last Admin: 02/16/21 12:53 Dose: 51 units Documented by: Insulin Detemir (Insulin Detemir) 115 units SC BID [facility]; Protocol Stop: 03/17/21 20:59 Last Admin: 02/16/21 09:08 Dose: 115 units Documented by: Lorazepam (Lorazepam 1 Mg Tab) 1 mg PO Q6 PRN PRN Reason: Anxiety/Agitation Stop: 03/08/21 12:22 Last Admin: 02/14/21 13:43 Dose: 1 mg Documented by: Magnesium Hydroxide (Magnesium Hydroxide Susp 30 Ml Udc) 30 ml PO DAILY PRN PRN Reason: Constipation Stop: 03/08/21 12:11 Metformin HCl (Metformin Hcl Er 500 Mg Tabcr) 500 mg PO BIDM [facility] Stop: 03/08/21 17:44 Last Admin: 02/16/21 08:45 Dose: 500 mg Documented by: Methimazole (Methimazole 5 Mg Tablet) 10 mg PO DAILY [facility] Stop: 03/09/21 08:59 Last Admin: 02/16/21 08:45 Dose: 5 mg Documented by: Miscellaneous (Carbohydrates For Hypoglycemia ) 15 - 30 gm PO UD PRN PRN Reason: Hypoglycemia Treatment Stop: 03/11/21 11:29 Miscellaneous Information (Pharmacy Glycemic Mgmt Consult) 1 ea N/A UD PRN PRN Reason: Consult Stop: 03/08/21 13:23 Olanzapine (Olanzapine 10 Mg Tab) 30 mg PO HS [facility] Stop: 03/08/21 21:59 Last Admin: 02/15/21 21:18 Dose: 30 mg Documented by: Olanzapine (Olanzapine 5 Mg Tablet) 5 mg PO DAILY@1500 [facility] Stop: 03/08/21 14:59 Last Admin: 02/15/21 14:50 Dose: 5 mg Documented by: Quetiapine Fumarate (Quetiapine Fumarate 25 Mg Tablet) 50 mg PO BID@0900,1500 [facility] Stop: 03/08/21 14:59 Last Admin: 02/16/21 08:45 Dose: 50 mg Documented by: Quetiapine Fumarate (Quetiapine Fumarate 25 Mg Tablet) 50 mg PO Q6 PRN PRN Reason: Anxiety/Agitation Stop: 03/08/21 17:59 Last Admin: 02/10/21 00:53 Dose: 50 mg Documented by: Sodium Chloride (Sodium Chloride 0.65% Na Soln 45 Ml ([place])) 1 - 2 sprays NA PRN PRN PRN Reason: Nasal Dryness/Congestion Stop: 03/08/21 12:11 Zolpidem Tartrate (Zolpidem Tartrate 10 Mg Tab) 10 mg PO HS [facility] Stop: 03/12/21 21:59 Last Admin: 02/15/21 21:21 Dose: 10 mg Documented by: Mental Health & Subst Abuse Tx Psychiatrist Name of Psychiatrist: Irma Card Psychiatrist's Date of Appointment with Psychiatrist: 02/19/21 Time of Appointment with Psychiatrist: 1:40pm Psychiatric Appointment Comment: [id number] [place] [address] Therapist Name of Therapist: Irma Longo Ezio Stephen Therapist's Date of Therapist Appointment: 02/16/21 Time of Therapist Appointment: 10 a.m Therapy Appointment Comment: [id number] [facility] [place] Bradley Assistant Community Manager Name of Assistant Community Manager: ADRIEL Dickey Phone Number for Assistant Community Manager: [phone] Post Discharge Appointments Primary Care Physician Name Of Family Doctor: JAYJAY Reece Primary Care Date of Appointment with PCP: 02/22/21 Time of Appointment with PCP: 11:20a.m Provider Appointment Comment: [address], [place] [address] Contact Information Discharge Discharge Address: [address] (1) Schizophrenia Schizophrenia type: paranoid schizophrenia Qualified Code(s): F20.0 - Paranoid schizophrenia (2) Diabetes mellitus type 2, uncontrolled Glycemic state: with hyperglycemia Qualified Code(s): E11.65 - Type 2 diabetes mellitus with hyperglycemia
[2021-02-16] MEDS: OLANZapine 5 MG TABLET PO SCH (14:41)
[2021-02-16] MEDS: BENZTROPINE MESYLATE 1 MG TAB PO SCH (21:25)
[2021-02-16] MEDS: ATORVASTATIN 40 MG TAB PO SCH (21:26)
[2021-02-16] MEDS: ZOLPIDEM TARTRATE 10 MG TAB PO SCH (21:33)
[2021-02-16] MEDS: hydrOXYzine HCl 25 MG TAB PO SCH (21:34)
[2021-02-16] MEDS: hydrOXYzine HCl 25 MG TAB PO PRN (23:17)
[2021-02-17] MEDS: INSULIN ASPART 100 UNITS/ML VIAL SC SCH ×4 (08:58→21:09)
[2021-02-17] MEDS: ASPIRIN 81 MG ECTAB PO SCH (08:59)
[2021-02-17] MEDS: CYANOCOBALAMIN 500 MCG TABLET (VITAMIN B-12) PO SCH (08:59)
[2021-02-17] MEDS: FENOFIBRATE NANOCRYSTALLIZED 145 MG TABLET PO SCH (08:59)
[2021-02-17] MEDS: methIMAzole 5 MG TABLET PO SCH (09:00)
[2021-02-17] MEDS: FERROUS SULFATE 325 MG TAB PO SCH (09:00)
[2021-02-17] MEDS: INSULIN DETEMIR SC SCH ×2 (09:00→21:05)
[2021-02-17] MEDS: LOSARTAN/HCTZ 50/12.5MG TAB PO SCH (09:00)
[2021-02-17] MEDS: metFORMIN HCL ER 500 MG TABCR PO SCH ×2 (09:00→17:16)
[2021-02-17] MEDS: QUEtiapine FUMARATE 25 MG TABLET PO SCH ×2 (09:01→15:29)
--- NOTE | 2021-02-17 09:37 | Pharmacy Report ---
Pharmacy Glycemic Short Note 2 - Date of Service February 17, 2021 - Glycemic Short BSG Results (Last 24 hours): 02/16/21 02/16/21 02/16/21 12:32 17:09 21:28 POC Glucose 185 H 171 H 206 H 02/17/21 08:22 POC Glucose 138 H OUTPATIENT ANTIDIABETIC REGIMEN: * Jardiance (empagliflozin) 10 mg PO Daily * Levemir 140 units SQ AM + 100 units SQ PM * Victoza (liraglutide) 1.8mg SQ daily * Metformin 500mg PO BIDM * A1c = 9% on 11/12/20 ASSESSMENT: 02/17 * Pt has received 388 units of insulin over the past 24hrs * 230 units of basal with Levemir * 158 units of bolus with NovoLog * BSGs [phone] mg/dl * AM fasting BSG in goal range at 138 mg/dl. No changes needed to basal insulin * Post-prandial BSGs slightly elevated - should be below 180 mg/dl. Will tighten CR slightly from 1.5 to 1 02/15/21 * Sanjuanita received a total of 396 units of insulin over the last 24 hours * 220 units basal + 176 units bolus * BSGs were well controlled yesterday: [phone] mg/dL * Fasting BSG stable at 161 mg/dL this AM. Patient continues on Metformin 500 mg PO BIDM * Patient snacks in evening this is why HS blood sugar is high as sometimes taken after starts eating. * Remove lower dose of Levemir and start 230 units BID. 02/14: * Sanjuanita received a total of 376 units of insulin over the last 24 hours * 220 units basal + 156 units bolus * BSGs were well controlled yesterday: [phone] mg/dL * Fasting BSG stable at 147 mg/dL this AM. Patient continues on Metformin 500 mg PO BIDM * No changes needed to regimen today 02/12: * Pt has received 327 units of insulin over the past 24hrs * 210 units of basal with Levemir * 117 units of bolus with NovoLog * BSGs [phone] mg/dl * AM fasting BSG is still elevated at 172 mg/dl despite dose increase of Levemir yesterday. Will continue to titrate upwards to achieve goal fasting BSG < 140 * Post-prandial BSGs elevated indicating more CHO coverage needed. Will tighten CR but loosen CR since Levemir is being increased again. BSG 188 --> 126 yesterday from lunch to dinner after receiving both CF + CR. Since we are tightening CR today loosening CF will be necessary to prevent subsequent low bsg when CF+CR administered for above goal range BSG PLAN FOR INPATIENT GLYCEMIC CONTROL: * Basal insulin * Levemir 115 units SQ BID * Bolus insulin * NovoLog per scale ACHS or Q6hrs while NPO * Goal Range: Low 110 mg/dL - High 140 mg/dL * Correction Factor: 10 mg/dL/unit * Nutritional / Prandial insulin per carb ratio of 1 unit per 1 grams CHO consumed PLAN FOR DISCHARGE: * HbA1c was 9.4% on 02/07/21. Continues to trend up for patient. Outpatient fill history is not aligning with 100% compliance per our records. * Goal HbA1c for this patient would be < 7% according to her age and comorbidities. * Would not recommend any changes to insulin at this time. Patient is on max dose Victoza. Could consider maximizing oral antidiabetic agents (Increase metformin by 500 mg/week until goal dose of 1000 mg PO BIDM is reached, increase glipizide by 5 mg/week until max dose of 20 mg PO BIDM is reached, and increase Jardiance to 25 mg PO daily). * Patient dose follow with local endocrinology office so would defer and changes in medications to them at discharge.
--- NOTE | 2021-02-17 14:55 | Psychiatric Progress Note ---
Date of Service February 17, 2021 Impression / Recommendations Impression 56 yo female with schizophrenia, recurrent hospitalization for ideas of reference and suicidal gesture. 02/15patient has more insight into her delusions and is able to not be distressed by any hallucinations she may experience. Overall she has a decrease in psychotic symptoms. 02/12--ongiong symptoms, declines additional med changes, is volunatry and doesn't meet criteria for forced meds Plan--continue current meds and tx plan. (1) Schizophrenia: 02/17-- PAtient's BID Seroquel dose increased to 75mg BID from 50mg BID. 02/13--patient continues to report improvement of psych process and lack of psychotic symptoms. Does still endorse depressive symptoms but is not willing to take an antidepressant at this time. 02/12/2021atient reporting improvement of symptoms of psychosis, does still complain of mood symptoms. We will continue on current regimen for now. 02/10/21--will offer prn Haldol and encourage to replace Seroquel if using regularly. 02/09/21--Ativan prn more effective than additional prn SEroquel or Vistaril as less sedating and better able to participate in programming. 02/08/21--patient remains resistant to medication changes, prns are somewhat sedating, given level of anxiety this am would use Ativan preferentially today. 02/07/21--The patient was admitted to the [facility] ([facility] unit) on q15 min checks (behavioral with suicide precautions) for safety. The patient will participate in group, recreational, and milieu therapies and will be offered additional individual and family sessions as clinically appropriate. she is declining consideration for antidepressant at this time, has Seroquel prn as anxiety is driven by delusions rather than primary. (2) Diabetes mellitus type 2, uncontrolled: 02/07/21--pharmacy consult for glycemic management, meds ordered. gluc checks. Fasting A1c this am. (3) Hypertriglyceridemia: 02/08/21--aware that her fenofibrate is non-formulary, discussed that she is refusing decreased Seroquel and re-reviewed risks of pancreatitis. 02/07/21--reviewed that current level increased from previous and places at risk for pancreatitis. Appears to have been on fenfibrate previously. Likely worsening due to Seroquel but is low dose and benefits. She voiced understanding and is resistant to med changes at this time. No acute indication for med consult but will ensure f/u with PCP. Risk Factors Assessment : Yes Do You Have Access To A Gun?: No Mental Health Diagnoses: Yes Substance Use Disorders: No Previous Attempt: Yes Previous Psychiatric Hospitalization: Yes Hopelessness: Yes Protective Factors Assessment Caodaism Beliefs: Yes : No Employed: No Supportive Family: Yes Interval History Chief Complaint "I'm just not sure". Review of Systems Sleep Information Total Hours of Sleep: 6 Sleep Comments: pt given vistaril per rn. pt on q-15 minute checks Meal Information Percent Meal Consumed - Breakfast: 75 Percent Meal Consumed - Lunch: 100 Percent Meal Consumed - Dinner: 100 Nutrition Comment: per meal record Subjective Subjective Patient was seen & assessed and interval progress reviewed with treatment team nursing and social work. Patient denies side effects of the medication. Has been compliant. does complain of occasional hallucinations and delusions but states that they are not as distressing as previously. Today patient continues to deny need for antidepressant, but states that her mood remains low. She was explained that in light of her ongoing psychotic symptoms, SSRIs may be detrimental to which she expressed agreement. Patient has been somewhat isolative, but does interact appropriately with peers. I spent 30 minutes with the patient, 50% of which was dedicated to counselling and coordination of care. Physical Exam Psychiatric Orientation: alert Apperance: appropriately groomed Eye Contact: + fair eye contact Motor Behavior: no abnormal motor movements Speech: normal rate/rhythm/volume of speech Affect: + depressed affect Mood: + depressed mood Thought Process: goal directed thought process and + tangential thought process Thought Content: + paranoid, + delusions, + persecution and + loneliness Homicidal Thoughts: denies homicidal thoughts Hallucinations: no auditory hallucinations and no visual hallucinations Cognition: attention grossly intact and language grossly intact Estimated Intelligence: + above average estimated intelligence Insight: + limited insight and + poor insight Judgement: + limited judgement and + poor judgement Vital Signs (Past 24 Hours) Last Vital Signs Temp 36.6 C 02/17/21 06:33 Pulse 80 02/17/21 06:34 Resp 16 02/17/21 06:33 BP 128/83 02/17/21 06:34 Pulse Ox 97 02/16/21 09:37 Results & Data ([facility]) Laboratory Results Laboratory Results - last 24 hr 02/16/21 02/16/21 02/17/21 17:09 21:28 08:22 POC Glucose 171 H 206 H 138 H 02/17/21 12:30 POC Glucose 160 H Current Inpatient Medications Current Inpatient Medications: Current Inpatient Medications Acetaminophen (Acetaminophen 325 Mg Tab) 650 mg PO Q4H PRN PRN Reason: Headache or Minor Fever Stop: 03/08/21 12:11 Al Hydrox/Mg Hydrox/Simethicone (Aluminum/Magnesium Susp 30 Ml Udc) 30 ml PO Q4H PRN PRN Reason: GI Upset Stop: 03/08/21 12:11 Aspirin (Aspirin 81 Mg Ectab) 81 mg PO DAILY ANNAMARIA Stop: 03/09/21 08:59 Last Admin: 02/17/21 08:59 Dose: 81 mg Documented by: Atorvastatin Calcium (Atorvastatin 40 Mg Tab) 80 mg PO HS ANNAMARIA Stop: 03/08/21 20:59 Last Admin: 02/16/21 21:26 Dose: 80 mg Documented by: Benztropine Mesylate (Benztropine Mesylate 1 Mg Tab) 1 mg PO HS ANNAMARIA Stop: 03/08/21 20:59 Last Admin: 02/16/21 21:25 Dose: 1 mg Documented by: Benztropine Mesylate (Benztropine Mesylate 1 Mg Tab) 1 mg PO Q8 PRN PRN Reason: Muscle Spasm Stop: 03/08/21 12:22 Bismuth Subsalicylate (Bismuth Subsalicylate Liqd 236 Ml) 15 ml PO PRN PRN PRN Reason: Loose Stool Stop: 03/08/21 12:11 Cyanocobalamin (Cyanocobalamin 500 Mcg Tablet (Vitamin B-12)) 1,000 mcg PO DAILY ANNAMARIA Stop: 03/09/21 08:59 Last Admin: 02/17/21 08:59 Dose: 1,000 mcg Documented by: Dextrose (Dextrose 50% 50 Ml Syringe) 25 - 50 ml IV UD PRN; Protocol PRN Reason: Hypoglycemia Protocol Stop: 03/11/21 11:29 Ergocalciferol (Ergocalciferol 50,000 Units 1250 Mcg Cap) 50,000 units PO Tu@0900 ANNAMARIA Stop: 03/11/21 08:59 Last Admin: 02/16/21 08:44 Dose: 50,000 units Documented by: Fenofibrate (Fenofibrate Nanocrystallized 145 Mg Tablet) 145 mg PO DAILY ANNAMARIA Stop: 03/13/21 08:59 Last Admin: 02/17/21 08:59 Dose: 145 mg Documented by: Ferrous Sulfate (Ferrous Sulfate 325 Mg Tab) 325 mg PO DAILY ANNAMARIA Stop: 03/12/21 08:59 Last Admin: 02/17/21 09:00 Dose: 325 mg Documented by: Glucagon (Glucagon For Inj 1 Mg Vial) 1 mg IM UD PRN; Protocol PRN Reason: Hypoglycemia Protocol Stop: 03/11/21 11:29 Glucose (Glucose 40% Gel 15 Gm Tube) 15 - 30 gm PO UD PRN; Protocol PRN Reason: Hypoglycemia Protocol Stop: 03/11/21 11:29 Glucose (Glucose 10 Tabs/Tube) 4 - 8 tabs PO UD PRN; Protocol PRN Reason: Hypoglycemia Protocol Stop: 03/11/21 11:29 HCTZ/Losartan Potassium (Losartan/Hctz 50/12.5mg Tab) 1 tab PO DAILY ANNAMARIA Stop: 03/09/21 08:59 Last Admin: 02/17/21 09:00 Dose: 1 tab Documented by: Hydroxyzine HCl (Hydroxyzine Hcl 25 Mg Tab) 25 mg PO Q6 PRN PRN Reason: Anxiety Stop: 03/11/21 10:54 Last Admin: 02/16/21 23:17 Dose: 25 mg Documented by: Hydroxyzine HCl (Hydroxyzine Hcl 25 Mg Tab) 50 mg PO HSZ ANNAMARIA Stop: 03/14/21 21:59 Last Admin: 02/16/21 21:34 Dose: 50 mg Documented by: Insulin Aspart (Insulin Aspart 100 Units/Ml Vial) 0 units SC ACHS [facility] Stop: 03/15/21 11:59 Last Admin: 02/17/21 13:05 Dose: 61 units Documented by: Insulin Detemir (Insulin Detemir) 115 units SC BID [facility]; Protocol Stop: 03/17/21 20:59 Last Admin: 02/17/21 09:00 Dose: 115 units Documented by: Lorazepam (Lorazepam 1 Mg Tab) 1 mg PO Q6 PRN PRN Reason: Anxiety/Agitation Stop: 03/08/21 12:22 Last Admin: 02/14/21 13:43 Dose: 1 mg Documented by: Magnesium Hydroxide (Magnesium Hydroxide Susp 30 Ml Udc) 30 ml PO DAILY PRN PRN Reason: Constipation Stop: 03/08/21 12:11 Metformin HCl (Metformin Hcl Er 500 Mg Tabcr) 500 mg PO BIDM ANNAMARIA Stop: 03/08/21 17:44 Last Admin: 02/17/21 09:00 Dose: 500 mg Documented by: Methimazole (Methimazole 5 Mg Tablet) 10 mg PO DAILY ANNAMARIA Stop: 03/09/21 08:59 Last Admin: 02/17/21 09:00 Dose: 5 mg Documented by: Miscellaneous (Carbohydrates For Hypoglycemia ) 15 - 30 gm PO UD PRN PRN Reason: Hypoglycemia Treatment Stop: 03/11/21 11:29 Miscellaneous Information (Pharmacy Glycemic Mgmt Consult) 1 ea N/A UD PRN PRN Reason: Consult Stop: 03/08/21 13:23 Olanzapine (Olanzapine 10 Mg Tab) 30 mg PO HS ANNAMARIA Stop: 03/08/21 21:59 Last Admin: 02/15/21 21:25 Dose: 30 mg Documented by: Olanzapine (Olanzapine 5 Mg Tablet) 5 mg PO DAILY@1500 ANNAMARIA Stop: 03/08/21 14:59 Last Admin: 02/16/21 14:41 Dose: 5 mg Documented by: Quetiapine Fumarate (Quetiapine Fumarate 25 Mg Tablet) 50 mg PO Q6 PRN PRN Reason: Anxiety/Agitation Stop: 03/08/21 17:59 Last Admin: 02/10/21 00:53 Dose: 50 mg Documented by: Quetiapine Fumarate (Quetiapine Fumarate 25 Mg Tablet) 75 mg PO BID@0900,1500 [facility] Stop: 03/19/21 14:59 Sodium Chloride (Sodium Chloride 0.65% Na Soln 45 Ml (Fajardo)) 1 - 2 sprays NA PRN PRN PRN Reason: Nasal Dryness/Congestion Stop: 03/08/21 12:11 Zolpidem Tartrate (Zolpidem Tartrate 10 Mg Tab) 10 mg PO HS ANNAMARIA Stop: 03/12/21 21:59 Last Admin: 02/16/21 21:33 Dose: 10 mg Documented by: Mental Health & Subst Abuse Tx Psychiatrist Name of Psychiatrist: Irma Card Psychiatrist's Date of Appointment with Psychiatrist: 02/19/21 Time of Appointment with Psychiatrist: 1:40pm Psychiatric Appointment Comment: [id number], [place] [address] Therapist Name of Therapist: Irma Stephen Therapist's Date of Therapist Appointment: 03/04/21 Time of Therapist Appointment: 10 a.m Therapy Appointment Comment: [id number] [facility], [place] Outside Plant Field Engineer Name of Outside Plant Field Engineer: ADRIEL Dickey Phone Number for Outside Plant Field Engineer: [phone] Post Discharge Appointments Primary Care Physician Name Of Family Doctor: JAYJAY Reece [facility] Date of Appointment with PCP: 02/22/21 Time of Appointment with PCP: 11:20a.m Provider Appointment Comment: [address], [place] [address] Contact Information Discharge Discharge Address: [address], [place] (1) Schizophrenia Schizophrenia type: paranoid schizophrenia Qualified Code(s): F20.0 - Paranoid schizophrenia (2) Diabetes mellitus type 2, uncontrolled Glycemic state: with hyperglycemia Qualified Code(s): E11.65 - Type 2 diabetes mellitus with hyperglycemia
[2021-02-17] MEDS: OLANZapine 5 MG TABLET PO SCH (15:28)
[2021-02-17] MEDS: BENZTROPINE MESYLATE 1 MG TAB PO SCH (21:08)
[2021-02-17] MEDS: ATORVASTATIN 40 MG TAB PO SCH (21:08)
[2021-02-17] MEDS: hydrOXYzine HCl 25 MG TAB PO SCH (21:09)
[2021-02-17] MEDS: OLANZapine 10 MG TAB PO SCH (21:11)
[2021-02-17] MEDS: ZOLPIDEM TARTRATE 10 MG TAB PO SCH (21:12)
[2021-02-18] MEDS: hydrOXYzine HCl 25 MG TAB PO SCH (01:58)
[2021-02-18] MEDS: FERROUS SULFATE 325 MG TAB PO SCH (08:38)
[2021-02-18] MEDS: ASPIRIN 81 MG ECTAB PO SCH (08:38)
[2021-02-18] MEDS: metFORMIN HCL ER 500 MG TABCR PO SCH (08:38)
[2021-02-18] MEDS: LOSARTAN/HCTZ 50/12.5MG TAB PO SCH (08:39)
[2021-02-18] MEDS: QUEtiapine FUMARATE 25 MG TABLET PO SCH ×2 (08:39→14:15)
[2021-02-18] MEDS: FENOFIBRATE NANOCRYSTALLIZED 145 MG TABLET PO SCH (08:39)
[2021-02-18] MEDS: CYANOCOBALAMIN 500 MCG TABLET (VITAMIN B-12) PO SCH (08:39)
[2021-02-18] MEDS: methIMAzole 5 MG TABLET PO SCH (08:39)
[2021-02-18] MEDS: INSULIN DETEMIR SC SCH (08:58)
[2021-02-18] MEDS: INSULIN ASPART 100 UNITS/ML VIAL SC SCH ×2 (08:59→13:02)
--- NOTE | 2021-02-18 11:44 | Discharge Summary ---
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 Opiates Screen Ur Methadone, Qual Acetaminophen Urine Barbiturates Ur Phencyclidine (PCP) U Amphetamin/Meth Scrn MDMA (Ecstasy) Screen U Benzodiazepines Scrn Ur Cocaine Metabolite U Marijuana (THC) Screen Ethyl Alcohol mg/dL COVID-19 Eval Order SARS-CoV-2, RNA, NAAT 02/14/21 02/14/21 02/14/21 12:40 17:03 21:20 WBC RBC Hgb Hct MCV MCH MCHC RDW Std Deviation RDW Coeff of Abel Plt Count MPV Immature Gran % (Auto) Neut % (Auto) Lymph % (Auto) [place] % (Auto) Eos % (Auto) Baso % (Auto) Neut # (Auto) Lymph # (Auto) [place] # (Auto) Eos # (Auto) Baso # (Auto) Immature Gran # (Auto) Sodium Potassium Chloride Carbon Dioxide Anion Gap BUN Creatinine Est Cr Clr Drug Dosing Est GFR ( Amer) Est GFR (Non-Af Amer) BUN/Creatinine Ratio Glucose POC Glucose 169 H 167 H 225 H Estimat Average Glucose Hemoglobin A1c Calcium Total Bilirubin AST ALT Alkaline Phosphatase Total Protein Albumin Globulin Albumin/Globulin Ratio Triglycerides Cholesterol LDL Cholesterol, Calc VLDL Cholesterol, Calc HDL Cholesterol Cholesterol/HDL Ratio TSH Urine Color Urine Appearance Urine pH Ur Specific [place] Urine Protein Urine Glucose (UA) Urine Ketones Urine Blood Urine Nitrite Urine Bilirubin Urine Urobilinogen Ur Leukocyte Esterase POC Ur Test Salicylates Urine Opiates Screen Ur Methadone, Qual Acetaminophen Urine Barbiturates Ur Phencyclidine (PCP) U Amphetamin/Meth Scrn MDMA (Ecstasy) Screen U Benzodiazepines Scrn Ur Cocaine Metabolite U Marijuana (THC) Screen Ethyl Alcohol mg/dL COVID-19 Eval Order SARS-CoV-2, RNA, NAAT 02/15/21 02/15/21 02/15/21 08:26 12:32 16:50 WBC RBC Hgb Hct MCV MCH MCHC RDW Std Deviation RDW Coeff of Abel Plt Count MPV Immature Gran % (Auto) Neut % (Auto) Lymph % (Auto) [place] % (Auto) Eos % (Auto) Baso % (Auto) Neut # (Auto) Lymph # (Auto) [place] # (Auto) Eos # (Auto) Baso # (Auto) Immature Gran # (Auto) Sodium Potassium Chloride Carbon Dioxide Anion Gap BUN Creatinine Est Cr Clr Drug Dosing Est GFR ( Amer) Est GFR (Non-Af Amer) BUN/Creatinine Ratio Glucose POC Glucose 161 H 155 H 135 H Estimat Average Glucose Hemoglobin A1c Calcium Total Bilirubin AST ALT Alkaline Phosphatase Total Protein Albumin Globulin Albumin/Globulin Ratio Triglycerides Cholesterol LDL Cholesterol, Calc VLDL Cholesterol, Calc HDL Cholesterol Cholesterol/HDL Ratio TSH Urine Color Urine Appearance Urine pH Ur Specific [place] Urine Protein Urine Glucose (UA) Urine Ketones Urine Blood Urine Nitrite Urine Bilirubin Urine Urobilinogen Ur Leukocyte Esterase POC Ur Test Salicylates Urine Opiates Screen Ur Methadone, Qual Acetaminophen Urine Barbiturates Ur Phencyclidine (PCP) U Amphetamin/Meth Scrn MDMA (Ecstasy) Screen U Benzodiazepines Scrn Ur Cocaine Metabolite U Marijuana (THC) Screen Ethyl Alcohol mg/dL COVID-19 Eval Order SARS-CoV-2, RNA, NAAT 02/15/21 02/16/21 02/16/21 20:39 08:22 12:32 WBC RBC Hgb Hct MCV MCH MCHC RDW Std Deviation RDW Coeff of Abel Plt Count MPV Immature Gran % (Auto) Neut % (Auto) Lymph % (Auto) [place] % (Auto) Eos % (Auto) Baso % (Auto) Neut # (Auto) Lymph # (Auto) [place] # (Auto) Eos # (Auto) Baso # (Auto) Immature Gran # (Auto) Sodium Potassium Chloride Carbon Dioxide Anion Gap BUN Creatinine Est Cr Clr Drug Dosing Est GFR ( Amer) Est GFR (Non-Af Amer) BUN/Creatinine Ratio Glucose POC Glucose 133 H 163 H 185 H Estimat Average Glucose Hemoglobin A1c Calcium Total Bilirubin AST ALT Alkaline Phosphatase Total Protein Albumin Globulin Albumin/Globulin Ratio Triglycerides Cholesterol LDL Cholesterol, Calc VLDL Cholesterol, Calc HDL Cholesterol Cholesterol/HDL Ratio TSH Urine Color Urine Appearance Urine pH Ur Specific [place] Urine Protein Urine Glucose (UA) Urine Ketones Urine Blood Urine Nitrite Urine Bilirubin Urine Urobilinogen Ur Leukocyte Esterase POC Ur Test Salicylates Urine Opiates Screen Ur Methadone, Qual Acetaminophen Urine Barbiturates Ur Phencyclidine (PCP) U Amphetamin/Meth Scrn MDMA (Ecstasy) Screen U Benzodiazepines Scrn Ur Cocaine Metabolite U Marijuana (THC) Screen Ethyl Alcohol mg/dL COVID-19 Eval Order SARS-CoV-2, RNA, NAAT 02/16/21 02/16/21 02/17/21 17:09 21:28 08:22 WBC RBC Hgb Hct MCV MCH MCHC RDW Std Deviation RDW Coeff of Abel Plt Count MPV Immature Gran % (Auto) Neut % (Auto) Lymph % (Auto) [place] % (Auto) Eos % (Auto) Baso % (Auto) Neut # (Auto) Lymph # (Auto) [place] # (Auto) Eos # (Auto) Baso # (Auto) Immature Gran # (Auto) Sodium Potassium Chloride Carbon Dioxide Anion Gap BUN Creatinine Est Cr Clr Drug Dosing Est GFR ( Amer) Est GFR (Non-Af Amer) BUN/Creatinine Ratio Glucose POC Glucose 171 H 206 H 138 H Estimat Average Glucose Hemoglobin A1c Calcium Total Bilirubin AST ALT Alkaline Phosphatase Total Protein Albumin Globulin Albumin/Globulin Ratio Triglycerides Cholesterol LDL Cholesterol, Calc VLDL Cholesterol, Calc HDL Cholesterol Cholesterol/HDL Ratio TSH Urine Color Urine Appearance Urine pH Ur Specific [place] Urine Protein Urine Glucose (UA) Urine Ketones Urine Blood Urine Nitrite Urine Bilirubin Urine Urobilinogen Ur Leukocyte Esterase POC Ur Test Salicylates Urine Opiates Screen Ur Methadone, Qual Acetaminophen Urine Barbiturates Ur Phencyclidine (PCP) U Amphetamin/Meth Scrn MDMA (Ecstasy) Screen U Benzodiazepines Scrn Ur Cocaine Metabolite U Marijuana (THC) Screen Ethyl Alcohol mg/dL COVID-19 Eval Order SARS-CoV-2, RNA, NAAT 02/17/21 02/17/21 02/17/21 12:30 17:12 20:57 WBC RBC Hgb Hct MCV MCH MCHC RDW Std Deviation RDW Coeff of Abel Plt Count MPV Immature Gran % (Auto) Neut % (Auto) Lymph % (Auto) [place] % (Auto) Eos % (Auto) Baso % (Auto) Neut # (Auto) Lymph # (Auto) [place] # (Auto) Eos # (Auto) Baso # (Auto) Immature Gran # (Auto) Sodium Potassium Chloride Carbon Dioxide Anion Gap BUN Creatinine Est Cr Clr Drug Dosing Est GFR ( Amer) Est GFR (Non-Af Amer) BUN/Creatinine Ratio Glucose POC Glucose 160 H 141 H 148 H Estimat Average Glucose Hemoglobin A1c Calcium Total Bilirubin AST ALT Alkaline Phosphatase Total Protein Albumin Globulin Albumin/Globulin Ratio Triglycerides Cholesterol LDL Cholesterol, Calc VLDL Cholesterol, Calc HDL Cholesterol Cholesterol/HDL Ratio TSH Urine Color Urine Appearance Urine pH Ur Specific [place] Urine Protein Urine Glucose (UA) Urine Ketones Urine Blood Urine Nitrite Urine Bilirubin Urine Urobilinogen Ur Leukocyte Esterase POC Ur Test Salicylates Urine Opiates Screen Ur Methadone, Qual Acetaminophen Urine Barbiturates Ur Phencyclidine (PCP) U Amphetamin/Meth Scrn MDMA (Ecstasy) Screen U Benzodiazepines Scrn Ur Cocaine Metabolite U Marijuana (THC) Screen Ethyl Alcohol mg/dL COVID-19 Eval Order SARS-CoV-2, RNA, NAAT 02/18/21 08:36 WBC RBC Hgb Hct MCV MCH MCHC RDW Std Deviation RDW Coeff of Abel Plt Count MPV Immature Gran % (Auto) Neut % (Auto) Lymph % (Auto) [place] % (Auto) Eos % (Auto) Baso % (Auto) Neut # (Auto) Lymph # (Auto) [place] # (Auto) Eos # (Auto) Baso # (Auto) Immature Gran # (Auto) Sodium Potassium Chloride Carbon Dioxide Anion Gap BUN Creatinine Est Cr Clr Drug Dosing Est GFR ( Amer) Est GFR (Non-Af Amer) BUN/Creatinine Ratio Glucose POC Glucose 158 H Estimat Average Glucose Hemoglobin A1c Calcium Total Bilirubin AST ALT Alkaline Phosphatase Total Protein Albumin Globulin Albumin/Globulin Ratio Triglycerides Cholesterol LDL Cholesterol, Calc VLDL Cholesterol, Calc HDL Cholesterol Cholesterol/HDL Ratio TSH Urine Color Urine Appearance Urine pH Ur Specific [place] Urine Protein Urine Glucose (UA) Urine Ketones Urine Blood Urine Nitrite Urine Bilirubin Urine Urobilinogen Ur Leukocyte Esterase POC Ur Test Salicylates Urine Opiates Screen Ur Methadone, Qual Acetaminophen Urine Barbiturates Ur Phencyclidine (PCP) U Amphetamin/Meth Scrn MDMA (Ecstasy) Screen U Benzodiazepines Scrn Ur Cocaine Metabolite U Marijuana (THC) Screen Ethyl Alcohol mg/dL COVID-19 Eval Order SARS-CoV-2, RNA, NAAT Hospital Course (1) Schizophrenia: 02/17-- PAtient's BID Seroquel dose increased to 75mg BID from 50mg BID. 02/13--patient continues to report improvement of psych process and lack of psychotic symptoms. Does still endorse depressive symptoms but is not willing to take an antidepressant at this time. 1patient reporting improvement of symptoms of psychosis, does still complain of mood symptoms. We will continue on current regimen for now. 02/10/21--will offer prn Haldol and encourage to replace Seroquel if using regularly. 02/09/21--Ativan prn more effective than additional prn SEroquel or Vistaril as less sedating and better able to participate in programming. 02/08/21--patient remains resistant to medication changes, prns are somewhat sedating, given level of anxiety this am would use Ativan preferentially today. 02/07/21--The patient was admitted to the [facility] ([facility] health unit) on q15 min checks (behavioral with suicide precautions) for safety. The patient will participate in group, recreational, and milieu therapies and will be offered additional individual and family sessions as clinically appropriate. she is declining consideration for antidepressant at this time, has Seroquel prn as anxiety is driven by delusions rather than primary. (2) Diabetes mellitus type 2, uncontrolled: 02/07/21--pharmacy consult for glycemic management, meds ordered. gluc checks. Fasting A1c this am. (3) Hypertriglyceridemia: 02/08/21--aware that her fenofibrate is non-formulary, discussed that she is refusing decreased Seroquel and re-reviewed risks of pancreatitis. 02/07/21--reviewed that current level increased from previous and places at risk for pancreatitis. Appears to have been on fenfibrate previously. Likely worsening due to Seroquel but is low dose and benefits. She voiced understanding and is resistant to med changes at this time. No acute indication for med consult but will ensure f/u with PCP. Mental Health & Subst Abuse Tx Psychiatrist Name of Psychiatrist: Irma Card Psychiatrist's Date of Appointment with Psychiatrist: 02/19/21 Time of Appointment with Psychiatrist: 1:40 pm Psychiatric Appointment Comment: Telehealth - will email you link Psychiatrist Release of Information: Obtained, Reviewed and Signed Therapist Name of Therapist: Irma Stephen Therapist's Date of Therapist Appointment: 03/04/21 Time of Therapist Appointment: 10 a.m Therapy Appointment Comment: [address] [place], [place] Therapist Release of Information: Obtained, Reviewed and Signed Repair Department Supervisor Name of Repair Department Supervisor: EVELYNU - Keli Phone Number for Repair Department Supervisor: [phone] Case Management Appointment Comment: Please follow up to schedule an appointment Post Discharge Appointments Primary Care Physician Name Of Family Doctor: JAYJAY Reece [facility] Date of Appointment with PCP: 02/22/21 Time of Appointment with PCP: 11:20a.m Provider Appointment Comment: [address] [place] [address] Primary Care Release of Information: Obtained, Reviewed and Signed Smoking Cessation Counseling Tobacco Cessation Medication Prescribed at Discharge: Not Applicable/Non-Smoker Contact Information Discharge Discharge Address: [address] [place] [address] Contact Information Comment: [facility] Discharge Plan Discharge Items Patient Disposition: Home - Self-Care Reason For Visit: SCHIZOPHRENIA Discharge Diagnosis: Schizophrenia Activity: Resume your previous activity Non-emergency contact: Primary Care Provider and Therapist Call non-emergency contact if: you have any medication questions and your symptoms worsen Follow-up/Referrals: Dillon Rogers MD [Primary Care Provider] - Diet: Carb Consistent or DM2 Addtl Attending Provider Instructions: SPECIAL CARE INSTRUCTIONS: 1. Follow through with your scheduled aftercare appointments. If unable to keep an appointment, please call to reschedule. 2. Take your medication only as prescribed. Medication should not be changed or stopped without the approval of your doctor. In the event of worsening symptoms or concerns about side effects, contact your doctor immediately. 3. Utilize new healthy coping skills, anger management skills, and stress management skills learned during your hospitalization. Journal feelings and process them with a support person. Identify stressors or situations that may result in relapse, deterioration or inappropriate behaviors and develop a plan to deal with those issues. 4. If your coping skills are ineffective and you are in crisis, contact your outpatient providers for direction. If unable to reach your providers, please call the [facility] CRISIS LINE AT , go to the [facility] walk-in center at [address], [address], [place], or go to the closest Emergency Room. 5. Avoid alcohol and un-prescribed drugs. 6. You have been provided with the Mental Health Advance Directives Pamphlet for your review. AFTERCARE APPOINTMENTS: * Please call your insurance company prior to your scheduled appointment to confirm your aftercare providers are covered. Take your insurance information to your appointments. WHO TO CALL AND WHEN: Medical Emergencies: For questions or emergencies related to your hospital stay, please contact the Inpatient Behavioral Health Unit at [phone]. A stonework supervisor is on-call 20/03 for the Behavioral Health Unit for emergencies At any time you feel your situation is an emergency, you may also call 911 immediately. Pending Studies at Discharge: No Stand-Alone Forms: My [facility], Smoking Cessation Medications and DC Order Prescriptions: New quetiapine 25 mg Tablet 75 mg PO BID@0900,1500 Qty: 180 RF: 0 Continued aspirin 81 mg tablet,delayed release (DR/EC) 81 mg PO DAILY Qty: 90 RF: 3 atorvastatin 80 mg tablet 80 mg PO HS Qty: 90 RF: 3 (DME) OneTouch Ultra Blue Test Strip Strip See Rx Instructions strip .ROUTE .MEDSUPPLY Qty: 200 RF: 3 glipizide 10 mg tablet 10 mg PO BID Qty: 180 RF: 3 Jardiance 10 mg tablet 10 mg PO DAILY Qty: 90 RF: 3 fenofibrate micronized 130 mg capsule 130 mg PO DAILY Qty: 90 RF: 3 metformin 500 mg tablet extended release 24 hr 500 mg PO BID Qty: 60 RF: 5 methimazole 10 mg tablet 10 mg PO DAILY Qty: 30 RF: 5 Levemir FlexTouch U-100 Insuln 100 unit/mL (3 mL) insulin pen See Rx Instructions SQ BID 90 Days Qty: 15 RF: 3 cholecalciferol (vitamin D3) 1,250 mcg (50,000 unit) capsule 50,000 unit PO Q7D 90 Days Qty: 13 RF: 1 (DME) BD AutoShield Duo Pen Needle 30 gauge x 3/16" needle .ROUTE .MEDSUPPLY Qty: 300 RF: 3 olanzapine 20 mg tablet 30 mg PO HS RF: 0 olanzapine 5 mg tablet 5 mg PO .COMPLEX Qty: 1 RF: 2 Victoza 3-Antione 0.6 mg/0.1 mL (18 mg/3 mL) pen injector 1.8 mg subcut .COMPLEX RF: 0 losartan-hydrochlorothiazide 100-25 mg tablet 1 tab PO DAILY Qty: 90 RF: 3 benztropine 1 mg tablet 1 mg PO HS RF: 0 ferrous sulfate 325 mg (65 mg iron) Tablet 325 mg PO DAILY RF: 0 zolpidem 5 mg Tablet 5 mg PO HS PRN (Reason: Insomnia) RF: 0 hydroxyzine HCl 25 mg tablet 25 mg PO TID PRN (Reason: Anxiety) RF: 0 cyanocobalamin (vitamin B-12) [Vitamin B-12] 100 mcg Tablet 1,000 mcg PO DAILY RF: 0 Discontinued prazosin 1 mg Capsule 1 mg PO HS PRN (Reason: Sleep) RF: 0 quetiapine 50 mg Tablet 50 mg PO BID RF: 0 Discharge Orders: Discharge Order (Routine); Ordered 02/18/21 Ordered By: Jean Claude Stark Admission Data Admit Date/Time: 02/06/21 12:13 Attending Provider: Jean Claude Stark Admit Provider: Le John Primary Care Provider: Dillon Rogers V. Other Interventions: Discharge Summary Assessment (RN) Last Done: 02/18/21 10:48 PSY Interdisciplinary Discharge Planning Last Done: 02/18/21 10:48 Coding Level of Care Code 01157 D/C day mgmt > 30 min Diagnoses Schizophrenia F20.0 Schizophrenia type: paranoid schizophrenia Diabetes mellitus type 2, uncontrolled E11.65 Glycemic state: with hyperglycemia Hypertriglyceridemia E78.1
[2021-02-18] MEDS: OLANZapine 5 MG TABLET PO SCH (14:15)
== END 2021-02-18 14:38 | disposition home or self-care (01) | DRG 885 ==
LOC: ED 16:45 → SUATTDRO 02-06 12:13 → 3S 02-06 12:13

== ENCOUNTER 2021-09-03 13:54 | Inpatient (IN) ==
--- NOTE | 2021-09-03 14:05 | Emergency Department Note ---
Impression & Plan Mood disorder, Paranoid, High serum chloride ED Provider Note NAME: AMADO OLSON AGE: 56 SEX: F : 1965 ARRIVES VIA: Ambulance INFORMANT: Patient ED PROVIDER(S): Tima Sarah DO CHIEF COMPLAINT: Worsening depression HPI: Patient is a 56-year-old female with a past medical history of diabetes, hypertension, obesity and hypothyroidism as well as schizophrenia and depression that presents the ER for worsening depression. She notes her symptoms have been worsening over the past couple weeks. She admits to increasing suicidal thoughts. She denies any plan. No homicidal ideations. No auditory visual hallucinations. She has been eating less but still drinking. She denies any headache or change in vision. No chest pain or shortness of breath. No nausea vomiting or diarrhea. She notes that over the past month when she swallows things and feels harder to swallow. She has not followed up on this. She notes the passive suicidal thoughts include feeling that she should and it is not worth living life. ROS: See above HPI for pertinent positives & negatives. A total of 10 systems reviewed and were otherwise negative. PAST MEDICAL HISTORY:See Below PAST SURGICAL HISTORY:See Below FAMILY HISTORY:See Below SOCIAL HISTORY:See Below HOME MEDICATIONS:See Below ALLERGIES:See Below VITALS:See Below PHYSICAL EXAMINATION: GENERAL: Sitting up in bed, alert, well appearing, well nourished, no distress, non-toxic EYE EXAM: normal conjunctiva. OROPHARYNX: no exudate, no erythema, lips, buccal mucosa, and tongue normal and mucous membranes are moist NECK: supple, no nuchal rigidity, no adenopathy, non-tender LUNGS: Clear to auscultation. Normal chest wall mechanics HEART: no murmurs, S1 normal and S2 normal ABDOMEN: abdomen soft, non-tender, normo-active bowel sounds, no masses, no rebound or guarding. UPPER EXTREMITIES: upper extremities are grossly normal. LOWER EXTREMITIES: No pitting edema. NEURO EXAM: Normal sensorium, cranial nerves II-XII grossly intact, normal speech, no gross weakness of arms, no gross weakness of legs. PSYCH: Denies any suicidal homicidal plan. Admits to passive suicidal thoughts. No auditory visual hallucinations. MEDICAL DECISION MAKING: Patient is a 56-year-old female with depression and paranoia the presents the ER as stated above with passive suicidal thoughts. Labs were obtained and showed no significant leukocytosis or anemia. Platelets slightly elevated. BMP with mild elevated chloride. LFTs bilirubin was unremarkable. TSH was normal. UA was contaminated and will not treat as she had no urinary symptoms. Tox was clean. Covid was negative. Patient was updated bedside. She was admitted to 3 S. on 2 . Triage Nursing notes reviewed. Limited review of prior medical records performed Vital Signs: reviewed and remarkable for no significant abnormalities Differential diagnosis: Mood disorder, infection, hypoglycemia, electrolyte abnormalities, cardiac sources, intracerebral event, toxicologic, trauma, neurologic, as well as other pathologies. ER treatment provided: See below Diagnostics interpreted by me: ECG: none Laboratory studies: As stated above and show below. Imaging studies: See below Consultation(s): none Procedures: none Critical Care: None Past Med/Surg History Medical History Acute hyperglycemia Acute hypokalemia Depression Diabetes mellitus type 2, uncontrolled Eczema Graves disease Hypertension Hyperthyroidism Intertrigo Knee pain, bilateral Leukocytosis Leukocytosis PPD positive 19 mm in 2011- DEANNA->( T[place] 9 months ) no longer PPD need Suicidal ideations Suicidal ideations Suicidal ideations UTI (urinary tract infection) Vitamin D deficiency Surgical History Hx of bilateral breast reduction surgery Hx of tonsillectomy Family History Father FHx: ischemic heart disease before age 50 Cardiac disorder Unknown Ovarian cancer Uncle Prostate cancer Grandfather Myocardial infarction Grandmother Cancer Denies family history of Breast cancer Social History Smoking Status: Former smoker Hx Alcohol Use: No Hx Substance Use: No Preferred Language: Bengali Communication Ability: Effective Visual Impairment: No Limitations 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: Normal Mold Stripper Required: No Beliefs That Will Affect Care: Mormon marital status: Single Current Living Situation: Personal Care Facility Current Living Situation Comment: [facility] current occupational status: unemployed Feels Safe at Home: No Dental Care, Regularly: Yes Physical Activity Frequency: 1-2 Times per Week Seatbelt Use: always Assistive Devices: Glasses Allergies Allergies Allergy/AdvReac Type Severity Reaction Status Date / Time Lepihws-VUC-BdU Reductase Allergy Mild Unknown Verified 07/29/21 13:12 Inhibitor [Zditaig-Bdw-Xiq Reductase Inhibitor] sulfamethoxazole Allergy Mild Difficulty Verified 07/29/21 13:12 [From Bactrim] Breathing trimethoprim [From Bactrim] Allergy Mild Difficulty Verified 07/29/21 13:12 Breathing Home Meds Home Medications Medication Instructions Recorded Confirmed benztropine 1 mg tablet 1 mg PO HS tab 04/21/19 09/03/21 hydroxyzine HCl 25 mg tablet 25 mg PO TID PRN 02/05/21 09/03/21 zolpidem 5 mg tablet 10 mg PO HS PRN 02/05/21 09/03/21 aspirin 81 mg tablet,delayed 81 mg PO QAM 09/03/21 09/03/21 release cyanocobalamin (vitamin B-12) 1,000 mcg PO QAM 09/03/21 09/03/21 1,000 mcg tablet (Vitamin B-12) empagliflozin 10 mg tablet 10 mg PO QAM 09/03/21 09/03/21 (Jardiance) ergocalciferol (vitamin D2) 25,000 50,000 unit PO WK 09/03/21 09/03/21 unit capsule fenofibrate micronized 130 mg 130 mg PO QAM 09/03/21 09/03/21 capsule ferrous sulfate 325 mg (65 mg 325 mg PO QAM 09/03/21 09/03/21 iron) tablet losartan 100 1 tab PO QAM 09/03/21 09/03/21 mg-hydrochlorothiazide 25 mg tablet metformin 500 mg tablet,extended 500 mg PO BID17 09/03/21 09/03/21 release 24 hr methimazole 10 mg tablet 10 mg PO QAM 09/03/21 09/03/21 olanzapine 10 mg tablet 10 mg PO HS 09/03/21 09/03/21 olanzapine 20 mg tablet 20 mg PO HS 09/03/21 09/03/21 olanzapine 5 mg tablet 5 mg PO DAILY 09/03/21 09/03/21 quetiapine 25 mg tablet 25 mg PO QAM 09/03/21 09/03/21 quetiapine 50 mg tablet 50 mg PO HS 09/03/21 09/03/21 Previous Rx's Medication Instructions Recorded lancets 30 gauge (ReadyLance #200 ea 03/17/21 Safety Lancets) glipizide 10 mg tablet 10 mg PO BID #180 tab 03/18/21 liraglutide 0.6 mg/0.1 mL (18 mg/3 1.8 mg SUBCUT DAILY 90 Days #27 ml 06/16/21 mL) subcutaneous pen injector (Victoza 3-Antione) acetaminophen 325 mg tablet 325 mg PO QID PRN #360 tab 07/08/21 (Tylenol) atorvastatin 80 mg tablet 80 mg PO HS #90 tab 07/26/21 insulin detemir U-100 100 unit/mL See Rx Instructions SQ BID 90 Days 08/03/21 (3 mL) subcutaneous pen (Levemir #15 box FlexTouch U-100 Insulin) BD AutoShield Duo Pen Needle 30 #300 ea NS 08/06/21 gauge x 3/16" (pen needle,diabetic dual safty) blood sugar diagnostic (OneTouch #200 ea 08/24/21 Ultra Test) Results & Data (ED) Vital Signs Vital Signs - 24 hr 09/03/21 14:02 09/03/21 14:16 09/03/21 16:20 Temperature 36.8 C Temperature Source Oral Pulse Rate 83 Pulse Rate [Left Apical] 83 55 L Pulse Rhythm Regular Pulse Rhythm [Left Apical] Regular Pulse Strength Normal Respiratory Rate 16 16 18 Respiratory Effort / Characteristics Non-Labored Respiratory Depth Normal Respiratory Pattern Regular Blood Pressure 148/81 H Blood Pressure [Right Arm] 145/75 H Blood Pressure Mean 103 Blood Pressure Mean [Right Arm] 98 Pulse Oximetry 98 99 Oxygen Delivery Method Room Air Room Air Sepsis Recent Fever Within 48 Hours No Sepsis New/Unexplained Change in Mental Status No Sepsis Action Taken by Nursing No Action Required Laboratory Data Result diagrams: 09/03/21 14:16 09/03/21 14:16 Lab Results 09/03/21 09/03/21 09/03/21 Range/Units 14:14 14:14 14:14 WBC (4.8-10.8) K/uL RBC (4.2-5.4) M/uL Hgb (12.0-16.0) g/dL Hct (37-47) % MCV (80-100) fL MCH (25-34) pg MCHC (32-36) g/dL RDW Std Deviation (36.4-46.3) fL RDW Coeff of Abel (11.5-14.5) % Plt Count (130-400) K/uL MPV (7.4-10.4) fL Immature Gran % (Auto) % Neut % (Auto) % Lymph % (Auto) % Maries % (Auto) % Eos % (Auto) % Baso % (Auto) % Neut # (Auto) (1.4-6.5) K/uL Lymph # (Auto) (1.2-3.4) K/uL Maries # (Auto) (0.11-0.59) K/uL Eos # (Auto) (0-0.5) K/uL Baso # (Auto) (0-0.2) K/uL Immature Gran # (Auto) (0.00-0.02) K/uL Sodium (136-145) mmol/L Potassium (3.5-5.1) mmol/L Chloride (98-107) mmol/L Carbon Dioxide (21-32) mmol/L Anion Gap (3-11) BUN (7-18) mg/dl Creatinine (0.6-1.2) mg/dl Est Cr Clr Drug Dosing ml/min Est GFR ( Amer) ml/min Est GFR (Non-Af Amer) ml/min BUN/Creatinine Ratio (10-20) Glucose (70-99) mg/dl Calcium (8.5-10.1) mg/dl Total Bilirubin (0.2-1) mg/dl AST (15-37) U/L ALT (12-78) Alkaline Phosphatase (45-117) U/L Total Protein (6.4-8.2) gm/dl Albumin (3.4-5.0) gm/dl Globulin (2.5-4.0) gm/dl Albumin/Globulin Ratio (0.9-2) TSH (0.300-4.500) uIu/ml Urine Color Yellow Urine Appearance Cloudy A (Clear) Urine pH 5.0 (4.5-7.5) Ur Specific [place] > 1.045 H (1.000-1.030) Urine Protein Negative (Negative) Urine Glucose (UA) 3+ H (Negative) Urine Ketones Negative (Negative) Urine Blood Negative (Negative) Urine Nitrite Negative (Negative) Urine Bilirubin Negative (Negative) Urine Urobilinogen Negative (Negative) Ur Leukocyte Esterase Negative (Negative) Urine WBC (Auto) >30 H (0-5) /hpf Urine RBC (Auto) 5-10 H (0-4) /hpf U Hyaline Cast (Auto) 1-5 (0-5) /lpf U Epithel Cells (Auto) >30 H (0-5) /lpf Urine Bacteria (Auto) 1+ H (Negative) Urine Yeast Not Reportable Urine Test Negative (Negative) Salicylates (2.8-20) mg/dl Urine Opiates Screen Neg (Neg) Ur Methadone, Qual Neg (Neg) Acetaminophen (10-30) ug/ml Urine Barbiturates Neg (Neg) Ur Phencyclidine (PCP) Neg (Neg) U Amphetamin/Meth Scrn Neg (Neg) MDMA (Ecstasy) Screen Neg (Neg) U Benzodiazepines Scrn Neg (Neg) Ur Cocaine Metabolite Neg (Neg) U Marijuana (THC) Screen Neg (Neg) Ethyl Alcohol mg/dL (0-3) mg/dl SARS-CoV-2, RNA, NAAT (NEGATIVE) 09/03/21 09/03/21 09/03/21 Range/Units 14:16 14:16 14:16 WBC 10.20 (4.8-10.8) K/uL RBC 5.16 (4.2-5.4) M/uL Hgb 14.2 (12.0-16.0) g/dL Hct 43.1 (37-47) % MCV 83.5 (80-100) fL MCH 27.5 (25-34) pg MCHC 32.9 (32-36) g/dL RDW Std Deviation 41.1 (36.4-46.3) fL RDW Coeff of Abel 13.5 (11.5-14.5) % Plt Count 427 H (130-400) K/uL MPV 8.5 (7.4-10.4) fL Immature Gran % (Auto) 0.8 % Neut % (Auto) 62.7 % Lymph % (Auto) 30.4 % Maries % (Auto) 4.3 % Eos % (Auto) 1.4 % Baso % (Auto) 0.4 % Neut # (Auto) 6.40 (1.4-6.5) K/uL Lymph # (Auto) 3.10 (1.2-3.4) K/uL Maries # (Auto) 0.44 (0.11-0.59) K/uL Eos # (Auto) 0.14 (0-0.5) K/uL Baso # (Auto) 0.04 (0-0.2) K/uL Immature Gran # (Auto) 0.08 H (0.00-0.02) K/uL Sodium 141 (136-145) mmol/L Potassium 3.9 (3.5-5.1) mmol/L Chloride 109 H (98-107) mmol/L Carbon Dioxide 25 (21-32) mmol/L Anion Gap 7.0 (3-11) BUN 13 (7-18) mg/dl Creatinine 0.95 (0.6-1.2) mg/dl Est Cr Clr Drug Dosing 69.1 ml/min Est GFR ( Amer) 77.6 ml/min Est GFR (Non-Af Amer) 67.0 ml/min BUN/Creatinine Ratio 13.9 (10-20) Glucose 235 H (70-99) mg/dl Calcium 9.3 (8.5-10.1) mg/dl Total Bilirubin 0.3 (0.2-1) mg/dl AST 11 L (15-37) U/L ALT 33 (12-78) Alkaline Phosphatase 114 (45-117) U/L Total Protein 7.3 (6.4-8.2) gm/dl Albumin 3.6 (3.4-5.0) gm/dl Globulin 3.7 (2.5-4.0) gm/dl Albumin/Globulin Ratio 1.0 (0.9-2) TSH 0.358 (0.300-4.500) uIu/ml Urine Color Urine Appearance (Clear) Urine pH (4.5-7.5) Ur Specific [place] (1.000-1.030) Urine Protein (Negative) Urine Glucose (UA) (Negative) Urine Ketones (Negative) Urine Blood (Negative) Urine Nitrite (Negative) Urine Bilirubin (Negative) Urine Urobilinogen (Negative) Ur Leukocyte Esterase (Negative) Urine WBC (Auto) (0-5) /hpf Urine RBC (Auto) (0-4) /hpf U Hyaline Cast (Auto) (0-5) /lpf U Epithel Cells (Auto) (0-5) /lpf Urine Bacteria (Auto) (Negative) Urine Yeast Urine Test (Negative) Salicylates < 1.7 L (2.8-20) mg/dl Urine Opiates Screen (Neg) Ur Methadone, Qual (Neg) Acetaminophen < 2 L (10-30) ug/ml Urine Barbiturates (Neg) Ur Phencyclidine (PCP) (Neg) U Amphetamin/Meth Scrn (Neg) MDMA (Ecstasy) Screen (Neg) U Benzodiazepines Scrn (Neg) Ur Cocaine Metabolite (Neg) U Marijuana (THC) Screen (Neg) Ethyl Alcohol mg/dL (0-3) mg/dl SARS-CoV-2, RNA, NAAT (NEGATIVE) 09/03/21 09/03/21 Range/Units 14:16 16:18 WBC (4.8-10.8) K/uL RBC (4.2-5.4) M/uL Hgb (12.0-16.0) g/dL Hct (37-47) % MCV (80-100) fL MCH (25-34) pg MCHC (32-36) g/dL RDW Std Deviation (36.4-46.3) fL RDW Coeff of Abel (11.5-14.5) % Plt Count (130-400) K/uL MPV (7.4-10.4) fL Immature Gran % (Auto) % Neut % (Auto) % Lymph % (Auto) % Maries % (Auto) % Eos % (Auto) % Baso % (Auto) % Neut # (Auto) (1.4-6.5) K/uL Lymph # (Auto) (1.2-3.4) K/uL Maries # (Auto) (0.11-0.59) K/uL Eos # (Auto) (0-0.5) K/uL Baso # (Auto) (0-0.2) K/uL Immature Gran # (Auto) (0.00-0.02) K/uL Sodium (136-145) mmol/L Potassium (3.5-5.1) mmol/L Chloride (98-107) mmol/L Carbon Dioxide (21-32) mmol/L Anion Gap (3-11) BUN (7-18) mg/dl Creatinine (0.6-1.2) mg/dl Est Cr Clr Drug Dosing ml/min Est GFR ( Amer) ml/min Est GFR (Non-Af Amer) ml/min BUN/Creatinine Ratio (10-20) Glucose (70-99) mg/dl Calcium (8.5-10.1) mg/dl Total Bilirubin (0.2-1) mg/dl AST (15-37) U/L ALT (12-78) Alkaline Phosphatase (45-117) U/L Total Protein (6.4-8.2) gm/dl Albumin (3.4-5.0) gm/dl Globulin (2.5-4.0) gm/dl Albumin/Globulin Ratio (0.9-2) TSH (0.300-4.500) uIu/ml Urine Color Urine Appearance (Clear) Urine pH (4.5-7.5) Ur Specific [place] (1.000-1.030) Urine Protein (Negative) Urine Glucose (UA) (Negative) Urine Ketones (Negative) Urine Blood (Negative) Urine Nitrite (Negative) Urine Bilirubin (Negative) Urine Urobilinogen (Negative) Ur Leukocyte Esterase (Negative) Urine WBC (Auto) (0-5) /hpf Urine RBC (Auto) (0-4) /hpf U Hyaline Cast (Auto) (0-5) /lpf U Epithel Cells (Auto) (0-5) /lpf Urine Bacteria (Auto) (Negative) Urine Yeast Urine Test (Negative) Salicylates (2.8-20) mg/dl Urine Opiates Screen (Neg) Ur Methadone, Qual (Neg) Acetaminophen (10-30) ug/ml Urine Barbiturates (Neg) Ur Phencyclidine (PCP) (Neg) U Amphetamin/Meth Scrn (Neg) MDMA (Ecstasy) Screen (Neg) U Benzodiazepines Scrn (Neg) Ur Cocaine Metabolite (Neg) U Marijuana (THC) Screen (Neg) Ethyl Alcohol mg/dL < 3.0 (0-3) mg/dl SARS-CoV-2, RNA, NAAT NEGATIVE (NEGATIVE) Administered Medications Insulin Aspart (Insulin Aspart 100 Units/Ml 3 Ml Pen) 0 units SC ACHS ANNAMARIA Stop: 10/03/21 18:14 Last Admin: 09/03/21 19:05 Dose: 11 units Documented by: [id number] Cosigned by: [id number] Metformin HCl (Metformin Hcl Er 500 Mg Tabcr) 500 mg PO BID17 [facility] Stop: 10/03/21 17:59 Last Admin: 09/03/21 19:02 Dose: Not Given Documented by: [id number] Olanzapine (Olanzapine 10 Mg Tab) 30 mg PO QPM ANNAMARIA Stop: 10/03/21 20:59 Last Admin: 09/03/21 20:11 Dose: 20 mg Documented by: [id number] Discontinued Medications Insulin Detemir (Insulin Detemir Flexpen/Flex Touch 100 Units/Ml 3ml) 115 units SC NOW ONE Stop: 09/03/21 18:16 Last Admin: 09/03/21 19:04 Dose: 115 units Documented by: [id number] Cosigned by: [id number] Discharge Plan Visit Data Chief Complaint: Mental Health Evaluation ED Provider: Tima Sarah Discharge Problem: Mood disorder, Paranoid, High serum chloride Patient Disposition: Admitted As Inpatient Discharge Instructions Interventions: ED Discharge Assessment Last Done: 09/03/21 17:22
[2021-09-03 14:27] LABS: Basophils # (auto) 0.04 K/uL (0-0.2); Basophils % (auto) 0.4 %; Eosinophils # (auto) 0.14 K/uL (0-0.5); Eosinophils % (auto) 1.4 %; Hematocrit (blood only) 43.1 % (37-47); Hemoglobin 14.2 g/dL (12.0-16.0); Immature Granulocytes # (auto) 0.08 K/uL (0.00-0.02); Immature Granulocytes % (auto) 0.8 %; Lymphocytes % (auto) 30.4 %; Mean Corpuscular Hemoglobin 27.5 pg (25-34); Mean Corpuscular Hgb Conc 32.9 g/dL (32-36); Mean Corpuscular Volume 83.5 fL (80-100); Mean Platelet Volume 8.5 fL (7.4-10.4); Monocytes # (auto) 0.44 K/uL (0.11-0.59); Monocytes % (auto) 4.3 %; Neutrophils % (auto) 62.7 %; Platelet Count 427 K/uL (130-400); RDW Coefficient of Variation 13.5 % (11.5-14.5); RDW Standard Deviation 41.1 fL (36.4-46.3); Red Blood Count 5.16 M/uL (4.2-5.4)
[2021-09-03 14:30] LABS: Appearance Urine Cloudy (Clear); Bacteria Urine Automated 1+ (Negative); Bilirubin Urine Negative (Negative); Blood Urine Negative (Negative); Color Urine Yellow; Epithelial Cell Urine Auto >30 /lpf (0-5); Glucose Urine UA 3+ (Negative); Ketones Urine Negative (Negative); Leukocyte Esterase Urine Negative (Negative); Nitrite Urine Negative (Negative); Protein Urine Negative (Negative); Specific Gravity Urine > 1.045 (1.000-1.030); Urobilinogen Urine Negative (Negative); WBC Urine Automated >30 /hpf (0-5)
[2021-09-03 14:48] LABS: Amphetamines+Metham, Urine Neg (Neg); Barbiturates, Urine Neg (Neg); Benzodiazepine, Urine Neg (Neg); Cocaine, Urine Neg (Neg); MDMA (Ecstacy), Urine Neg (Neg); Methadone, Urine Neg (Neg); Opiate, Urine Neg (Neg); Phencyclidine, Urine Neg (Neg)
[2021-09-03 14:49] LABS: Albumin Level 3.6 gm/dl (3.4-5.0); BUN Creatinine Ratio 13.9 (10-20); Calcium 9.3 mg/dl (8.5-10.1); Creatinine Clr Calc Pharmacy 69.1 ml/min; Est GFR (African American) 77.6 ml/min; Potassium 3.9 mmol/L (3.5-5.1)
[2021-09-03 14:50] LABS: Pregnancy Test, Urine Negative (Negative)
[2021-09-03 14:59] LABS: Bilirubin,Total 0.3 mg/dl (0.2-1); Globulin 3.7 gm/dl (2.5-4.0); Thyroid Stimulating Hormone 0.358 uIu/ml (0.300-4.500); Total Protein 7.3 gm/dl (6.4-8.2)
[2021-09-03 15:11] LABS: Acetaminophen < 2 ug/ml (10-30); Salicylate < 1.7 mg/dl (2.8-20)
[2021-09-03] MEDS ORDERED: ZOLPIDEM TARTRATE 10 MG TAB PO PRN (16:41)
[2021-09-03] MEDS ORDERED: ACETAMINOPHEN 325 MG TAB PO PRN (16:41)
[2021-09-03] MEDS ORDERED: SODIUM CHLORIDE 0.65% NA SOLN 45 ML (OCEAN) PRN (16:55)
[2021-09-03] MEDS ORDERED: BISMUTH SUBSALICYLATE LIQD 236 ML PO PRN (16:55)
[2021-09-03] MEDS ORDERED: ALUMINUM/MAGNESIUM SUSP 30 ML UDC PO PRN (16:55)
[2021-09-03] MEDS ORDERED: MAGNESIUM HYDROXIDE SUSP 30 ML UDC PO PRN (16:55)
[2021-09-03] MEDS ORDERED: PHARMACY GLYCEMIC MGMT CONSULT PRN (16:56)
[2021-09-03] MEDS ORDERED: DEXTROSE 50% 50 ML SYRINGE IV PRN (18:00)
[2021-09-03] MEDS ORDERED: INSULIN ASPART PER UNIT SC SCH (18:00)
[2021-09-03] MEDS ORDERED: GLUCOSE 40% GEL 15 GM TUBE PO PRN (18:00)
[2021-09-03] MEDS ORDERED: GLUCOSE 10 TABS/TUBE PO PRN (18:00)
[2021-09-03] MEDS ORDERED: CARBOHYDRATES FOR HYPOGLYCEMIA PO PRN (18:00)
[2021-09-03] MEDS ORDERED: GLUCAGON FOR INJ 1 MG VIAL IM PRN (18:00)
[2021-09-03] MEDS ORDERED: INSULIN DETEMIR FLEXPEN/FLEX TOUCH 100 UNITS/ML 3ML SC ONE (18:15)
[2021-09-03] MEDS: metFORMIN HCL ER 500 MG TABCR PO SCH (19:02)
[2021-09-03] MEDS: INSULIN ASPART 100 UNITS/ML 3 ML PEN SC SCH ×2 (19:05→21:07)
[2021-09-03] MEDS ORDERED: QUEtiapine FUMARATE 25 MG TABLET PO SCH (21:00)
[2021-09-03] MEDS ORDERED: OLANZapine 10 MG TAB PO SCH (21:00)
[2021-09-03] MEDS ORDERED: glipiZIDE 5 MG TAB PO SCH (21:00)
[2021-09-03] MEDS: BENZTROPINE MESYLATE 1 MG TAB PO SCH (21:08)
[2021-09-03] MEDS: ATORVASTATIN 40 MG TAB PO SCH (21:08)
[2021-09-04] MEDS ORDERED: INSULIN ASPART 100 UNITS/ML 3 ML PEN SC SCH (01:00)
[2021-09-04 08:36] LABS: Estimated Average Glucose 206 mg/dl; Hemoglobin A1C 8.8 % (4.5-5.6)
[2021-09-04] MEDS: ASPIRIN 81 MG ECTAB PO SCH (08:55)
[2021-09-04] MEDS: metFORMIN HCL ER 500 MG TABCR PO SCH ×2 (08:56→17:16)
[2021-09-04] MEDS: LOSARTAN/HCTZ 50/12.5MG TAB PO SCH (08:56)
[2021-09-04] MEDS: methIMAzole 5 MG TABLET PO SCH (08:57)
[2021-09-04 09:00] LABS: Chol HDL Ratio 7; Cholesterol 227 mg/dl (0-200); HDL Cholesterol 34 mg/dl; Triglycerides 510 mg/dl (0-150)
[2021-09-04] MEDS ORDERED: QUEtiapine FUMARATE 25 MG TABLET PO SCH (09:00)
[2021-09-04] MEDS ORDERED: INSULIN DETEMIR FLEXPEN/FLEX TOUCH 100 UNITS/ML 3ML SC SCH (09:00)
[2021-09-04] MEDS: INSULIN ASPART 100 UNITS/ML 3 ML PEN SC SCH ×4 (09:07→20:03)
[2021-09-04] MEDS: FERROUS SULFATE 325 MG TAB PO SCH (10:01)
--- NOTE | 2021-09-04 10:23 | History & Physical ---
Date of Service September 04, 2021 Impression / Recommendations Impression The patient is a 56 year old with a history of schizophrenia who was admitted for worsening delusions and depression with SI. Diagnostically consistent with acute exacerbation of schizophrenia and unspecified depression-adjustment disorder vs worsening mood in context of increasing psychotic symptoms vs MDD. The patient is deemed unstable and requires psychiatric hospitalization for diagnostic clarification, safety and stabilization, medication management and development of further coping skills. We discuss treatment options including medications in detail. She is not interested in starting any medications to specifically target her depression such as an SSRI as she feels these have contributed to worsening of her mood in the past and understandably she wants to limit further polypharmacy. She is also not interested in making any medication adjustments to help with sleep as she feels ambien works well except when she hears the screaming. Discussed options related to her antipsychotic medications including considering limiting morning dosages as this could be contributing to fatigue but she declines this as she feels her medications work well. Will get EKG given multiple high dose antipsychotics and while goal is always monotherapy given multiple prior trials and failures of monotherapy and she is not interested in clozapine will continue with olanzapine and quetiapine at this time. Reviewed risks, especially with dual antipsychotics including but not limited to metabolic risks (especially as she already has diabetes), QTc prolongation, TD. Also reviewed risks of ambien including addictive potential, nighttime behaviors (preparing food, wandering while not aware), falls. Will focus on coping skills and trying to determine additional supports to help her in the outpatient setting as she cites loneliness and boredom as significant contributions to worsening mood. Will continue to explore options and her willingness to make any changes regarding medication. (1) Schizophrenia: Schizophrenia type: paranoid schizophrenia Qualified Code(s): F20.0 - Paranoid schizophrenia (2) Depression: (3) Suicidal ideation: 09/04/21: The patient was admitted to the [facility] on q15 min checks (behavioral with suicide precautions) for safety. The patient will participate in group, recreational, and milieu therapies and will be offered additional individual and family sessions as clinically appropriate. -Continue prior to admission medications including: ambien 10mg qhs prn, olanzapine 5mg qafternoon & 30 mg qhs, seroquel 25mg qAM & 50 mg qhs -EKG to assess QTc given multiple prolonging agents and high dose olanzapine -Contact outpatient psychiatrist for further collateral Inventory Assets Strengths: outpt providers, family support, motivated to seek treatment Needs: additional outpt resources, increased opportunities for social interactions Risk Factors Assessment : Yes Do You Have Access To A Gun?: No Health Problems: Yes Mental Health Diagnoses: Yes Substance Use Disorders: No Previous Attempt: Yes Previous Attempt; Highly Lethal: Yes Family History of Suicide: No Previous Psychiatric Hospitalization: Yes Hopelessness: No Smoker: No Protective Factors Assessment Mormon Beliefs: Yes Employed: No Stable Relationships: Yes Supportive Family: Yes Good Rapport with Provider: Yes Psychiatric History Identifying Data SANJUANITA OLSON is a 56-year-old F who currently lives in a skilled nursing, [facility], has a history of schizophrenia, and was admitted on 09/03/21 17:26 on a 201 voluntary commitment for worsening delusions and depression with SI. Chief Complaint "I'm at [facility] and there is nothing to do there and it's making me really depressed and I started to having thoughts of suicide". History of Present Illness Sanjuanita has a history of prior admissions at [facility] and states that past hospitalizations have always been helpful. Therefore when she started to feel more depressed and developed SI with thoughts of overdosing on pills she decided "it was time to come up here for a rest and to work on my coping skills to feel better". She describes about 2 months of worsening depression and recently worsening SI which she attributes to feeling isolated at [facility] since it is "in the middle of no where". She also attributes some of her depression to not feeling like she can watch TV because "my TV is jinxed". She does feel comfortable watching TV on the main TV in the living room at the skilled nursing but is suspicious of her personal TV. She has been attending psychiatric rehab up to twice per week but recently has missed multiple days which she attributes to poor sleep. She denies feeling groggy or sedated from her medications but rather feels that her poor sleep is due to hearing the "screams" of a child she lost in-utero many years ago. She notes that "I lost my daughter while flying and sometimes I still feel her inside me and I worry I'm hurting her and she screams". She describes that when she has this feeling of she sometimes requests lower dosages of her medications "because I don't want to hurt her, I worry about harming her". She also notes that her stomach feels "sensitive" which she attributes to harm from the loss. States that she likes her medications as they are and doesn't wish to make any changes. Past Psychiatric History Previous Psych History: long history of schizophrenia since college with multiple inpatient admissions, has been living in group homes for the last few years, has outpatient services Current Psychiatric Diagnosis: Schizophrenia Outpatient Services: psychiatry (LIVIA Wagner) and therapy through [facility] and case management services Previous Psych Admissions: multiple, last at [facility] in January 2021, has also been hospitalized at the [facility] as well as a retirement hospitalization in the past Do You Have Access To A Gun?: No History of Previous Suicide Attempt: Yes (three "serious attempts" via OD) Describe Attempts in the Past: OD Past Medication Trials: many including multiple monotherapy antipsychotic trials >3, she has felt most stable on dual therapy with olanzapine and seroquel which has been consistent over the last ~1 year. Past Head Trauma/Neuro History History of Concussion/Seizure: No Allergies Allergy/AdvReac Type Severity Reaction Status Date / Time Nruhdwo-[id number]-IxM Reductase Allergy Mild Unknown Verified 07/29/21 13:12 Inhibitor [Smtyrqc-Icz-Nfr Reductase Inhibitor] sulfamethoxazole Allergy Mild Difficulty Verified 07/29/21 13:12 [From Bactrim] Breathing trimethoprim [From Bactrim] Allergy Mild Difficulty Verified 07/29/21 13:12 Breathing Home Medications Medication Instructions Recorded Confirmed Type benztropine 1 mg tablet 1 mg PO HS tab 04/21/19 09/03/21 History hydroxyzine HCl 25 mg tablet 25 mg PO TID PRN 02/05/21 09/03/21 History zolpidem 5 mg tablet 10 mg PO HS PRN 02/05/21 09/03/21 History lancets 30 gauge (ReadyLance #200 ea 03/17/21 09/03/21 Rx Safety Lancets) glipizide 10 mg tablet 10 mg PO BID #180 tab 03/18/21 09/03/21 Rx liraglutide 0.6 mg/0.1 mL (18 mg/3 1.8 mg SUBCUT DAILY 90 Days #27 ml 06/16/21 09/03/21 Rx mL) subcutaneous pen injector (Szl 3-Antione) acetaminophen 325 mg tablet 325 mg PO QID PRN #360 tab 07/08/21 09/03/21 Rx (Tylenol) atorvastatin 80 mg tablet 80 mg PO HS #90 tab 07/26/21 09/03/21 Rx insulin detemir U-100 100 unit/mL See Rx Instructions SQ BID 90 Days 08/03/21 09/03/21 Rx (3 mL) subcutaneous pen (Levemir #15 box FlexTouch U-100 Insulin) BD AutoShield Duo Pen Needle 30 #300 ea NS 08/06/21 09/03/21 Rx gauge x 3/16" (pen needle,diabetic dual safty) blood sugar diagnostic (OneTouch #200 ea 08/24/21 09/03/21 Rx Ultra Test) aspirin 81 mg tablet,delayed 81 mg PO QAM 09/03/21 09/03/21 History release cyanocobalamin (vitamin B-12) 1,000 mcg PO QAM 09/03/21 09/03/21 History 1,000 mcg tablet (Vitamin B-12) empagliflozin 10 mg tablet 10 mg PO QA 09/03/21 09/03/21 History (Jardiance) ergocalciferol (vitamin D2) 25,000 50,000 unit PO WK 09/03/21 09/03/21 History unit capsule fenofibrate micronized 130 mg 130 mg PO QAM 09/03/21 09/03/21 History capsule ferrous sulfate 325 mg (65 mg 325 mg PO QAM 09/03/21 09/03/21 History iron) tablet losartan 100 1 tab PO QAM 09/03/21 09/03/21 History mg-hydrochlorothiazide 25 mg tablet metformin 500 mg tablet,extended 500 mg PO BID17 09/03/21 09/03/21 History release 24 hr methimazole 10 mg tablet 10 mg PO QAM 09/03/21 09/03/21 History olanzapine 10 mg tablet 10 mg PO HS 09/03/21 09/03/21 History olanzapine 20 mg tablet 20 mg PO HS 09/03/21 09/03/21 History olanzapine 5 mg tablet 5 mg PO DAILY 09/03/21 09/03/21 History quetiapine 25 mg tablet 25 mg PO QAM 09/03/21 09/03/21 History quetiapine 50 mg tablet 50 mg PO HS 09/03/21 09/03/21 History Family History Family History of: None Alcohol History Hx of Alcohol Use Over the Past 12 Months: No AUDIT Total Score: 0 Smoking Use Have You Smoked or Used Tobacco Products in the Last 30 Days: No Smoking Status: Former smoker Substance History Hx of Prescription Med Misuse Over the Past 12 Months: No Hx of Over the Counter Med Misuse Over the Past 12 Months: No Hx of Inhalent Misuse Over the Past 12 Months: No Hx of Organic Substance Use Over the Past 12 Months: No Hx of Illegal Substances/Street Drug Use Over Past 12 Months: No Problems as a Result of Past Substance Use: None Identified Personal History Living Arrangements: Personal Care Facility Living Arrangements Comments: [facility] Born In: [place], [place]. Highest Grade Completed: Some College Marital Status: Single Number Of Children: 1 Beliefs That Will Affect Care: Mormon Hx Legal Problems: No Hx Traumatic Life Events: No Patient History Medical History Acute hyperglycemia Acute hypokalemia Depression Diabetes mellitus type 2, uncontrolled Eczema Graves disease Hypertension Hyperthyroidism Intertrigo Knee pain, bilateral Leukocytosis Leukocytosis PPD positive 19 mm in H->( Tx 9 months ) no longer PPD need Suicidal ideations Suicidal ideations Suicidal ideations UTI (urinary tract infection) Vitamin D deficiency Surgical History Hx of bilateral breast reduction surgery Hx of tonsillectomy Family History Father FHx: ischemic heart disease before age 50 Cardiac disorder Unknown Ovarian cancer Uncle Prostate cancer Grandfather Myocardial infarction Grandmother Cancer Denies family history of Breast cancer Social History Smoking Status: Former smoker Hx Alcohol Use: No Hx Substance Use: No Preferred Language: Lebanese Communication Ability: Effective Visual Impairment: No Limitations 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: Normal [employer] Tank Work[employer] Required: No Beliefs That Will Affect Care: Mormon marital status: Single Current Living Situation: Personal Care [facility] current occupational status: unemployed Feels Safe at Home: No Dental Care, Regularly: Yes Physical Activity Frequency: 1-2 Times per Week Seatbelt Use: always Assistive Devices: Glasses Review of Systems Review of Systems: All systems reviewed & are unremarkable except as noted in HPI & below Physical Exam Psychiatric: Orientation: alert and oriented x 3 Apperance: appropriately dressed and appropriately groomed Eye Contact: good eye contact Motor Behavior: steady gait and station and no abnormal motor movements Speech: normal rate/rhythm/volume of speech Affect: + constricted affect Mood: + depressed mood Thought Process: + circumstantial thought process Thought Content: + paranoid, + delusions and + ideas of reference Suicidal Thoughts: denies suicidal plan and denies suicidal intent (feels safe in the hospital, will let staff know if SI intensifies ); + reports suicidal thoughts Homicidal Thoughts: denies homicidal thoughts Hallucinations: + auditory hallucinations (screaming baby); no visual hallucinations Cognition: recent memory grossly intact, remote memory grossly intact, attention grossly intact and language grossly intact Estimated Intelligence: consistent with education level Insight: + impaired insight Judgement: + impaired judgement Vital Signs (Past 24 Hours): Last Vital Signs Temp 36.6 C 09/04/21 06:00 Pulse 81 09/04/21 06:48 Resp 16 09/04/21 06:00 BP 148/92 H 09/04/21 06:48 Pulse Ox 99 09/03/21 17:40 Exam Statement: A physical exam was performed in the ED by Dr. Sarah for the purposes of medical clearance. I accept that physical as correct and adequate for the purposes of the inpatient physical exam. Results & Data ([facility]) Laboratory Results Laboratory Results - last 24 hr 09/03/21 09/03/21 09/03/21 14:14 14:14 14:14 WBC RBC Hgb Hct MCV MCH MCHC RDW Std Deviation RDW Coeff of Abel Plt Count MPV Immature Gran % (Auto) Neut % (Auto) Lymph % (Auto) Mills % (Auto) Eos % (Auto) Baso % (Auto) Neut # (Auto) Lymph # (Auto) Mills # (Auto) Eos # (Auto) Baso # (Auto) Immature Gran # (Auto) Sodium Potassium Chloride Carbon Dioxide Anion Gap BUN Creatinine Est Cr Clr Drug Dosing Est GFR ( Amer) Est GFR (Non-Af Amer) BUN/Creatinine Ratio Glucose POC Glucose Estimat Average Glucose Hemoglobin A1c Calcium Total Bilirubin AST ALT Alkaline Phosphatase Total Protein Albumin Globulin Albumin/Globulin Ratio Triglycerides Cholesterol LDL Cholesterol, Calc VLDL Cholesterol, Calc HDL Cholesterol Cholesterol/HDL Ratio TSH Urine Color Yellow Urine Appearance Cloudy A Urine pH 5.0 Ur Specific [place] > 1.045 H Urine Protein Negative Urine Glucose (UA) 3+ H Urine Ketones Negative Urine Blood Negative Urine Nitrite Negative Urine Bilirubin Negative Urine Urobilinogen Negative Ur Leukocyte Esterase Negative Urine WBC (Auto) >30 H Urine RBC (Auto) 5-10 H U Hyaline Cast (Auto) 1-5 U Epithel Cells (Auto) >30 H Urine Bacteria (Auto) 1+ H Urine Yeast Not Reportable Urine Test POC Ur Test Pending Salicylates Urine Opiates Screen Neg Ur Methadone, Qual Neg Acetaminophen Urine Barbiturates Neg Ur Phencyclidine (PCP) Neg U Amphetamin/Meth Scrn Neg MDMA (Ecstasy) Screen Neg U Benzodiazepines Scrn Neg Ur Cocaine Metabolite Neg U Marijuana (THC) Screen Neg Ethyl Alcohol mg/dL SARS-CoV-2, RNA, NAAT 09/03/21 09/03/21 09/03/21 14:14 14:16 14:16 WBC 10.20 RBC 5.16 Hgb 14.2 Hct 43.1 MCV 83.5 MCH 27.5 MCHC 32.9 RDW Std Deviation 41.1 RDW Coeff of Abel 13.5 Plt Count 427 H MPV 8.5 Immature Gran % (Auto) 0.8 Neut % (Auto) 62.7 Lymph % (Auto) 30.4 Mills % (Auto) 4.3 Eos % (Auto) 1.4 Baso % (Auto) 0.4 Neut # (Auto) 6.40 Lymph # (Auto) 3.10 Mills # (Auto) 0.44 Eos # (Auto) 0.14 Baso # (Auto) 0.04 Immature Gran # (Auto) 0.08 H Sodium 141 Potassium 3.9 Chloride 109 H Carbon Dioxide 25 Anion Gap 7.0 BUN 13 Creatinine 0.95 Est Cr Clr Drug Dosing 69.1 Est GFR ( Amer) 77.6 Est GFR (Non-Af Amer) 67.0 BUN/Creatinine Ratio 13.9 Glucose 235 H POC Glucose Estimat Average Glucose Hemoglobin A1c Calcium 9.3 Total Bilirubin 0.3 AST 11 L ALT 33 Alkaline Phosphatase 114 Total Protein 7.3 Albumin 3.6 Globulin 3.7 Albumin/Globulin Ratio 1.0 Triglycerides Cholesterol LDL Cholesterol, Calc VLDL Cholesterol, Calc HDL Cholesterol Cholesterol/HDL Ratio TSH 0.358 Urine Color Urine Appearance Urine pH Ur Specific [place] Urine Protein Urine Glucose (UA) Urine Ketones Urine Blood Urine Nitrite Urine Bilirubin Urine Urobilinogen Ur Leukocyte Esterase Urine WBC (Auto) Urine RBC (Auto) U Hyaline Cast (Auto) U Epithel Cells (Auto) Urine Bacteria (Auto) Urine Yeast Urine Test Negative POC Ur Test Salicylates Urine Opiates Screen Ur Methadone, Qual Acetaminophen Urine Barbiturates Ur Phencyclidine (PCP) U Amphetamin/Meth Scrn MDMA (Ecstasy) Screen U Benzodiazepines Scrn Ur Cocaine Metabolite U Marijuana (THC) Screen Ethyl Alcohol mg/dL SARS-CoV-2, RNA, NAAT 09/03/21 09/03/21 09/03/21 14:16 14:16 16:18 WBC RBC Hgb Hct MCV MCH MCHC RDW Std Deviation RDW Coeff of Abel Plt Count MPV Immature Gran % (Auto) Neut % (Auto) Lymph % (Auto) Mills % (Auto) Eos % (Auto) Baso % (Auto) Neut # (Auto) Lymph # (Auto) Mills # (Auto) Eos # (Auto) Baso # (Auto) Immature Gran # (Auto) Sodium Potassium Chloride Carbon Dioxide Anion Gap BUN Creatinine Est Cr Clr Drug Dosing Est GFR ( Amer) Est GFR (Non-Af Amer) BUN/Creatinine Ratio Glucose POC Glucose Estimat Average Glucose Hemoglobin A1c Calcium Total Bilirubin AST ALT Alkaline Phosphatase Total Protein Albumin Globulin Albumin/Globulin Ratio Triglycerides Cholesterol LDL Cholesterol, Calc VLDL Cholesterol, Calc HDL Cholesterol Cholesterol/HDL Ratio TSH Urine Color Urine Appearance Urine pH Ur Specific [place] Urine Protein Urine Glucose (UA) Urine Ketones Urine Blood Urine Nitrite Urine Bilirubin Urine Urobilinogen Ur Leukocyte Esterase Urine WBC (Auto) Urine RBC (Auto) U Hyaline Cast (Auto) U Epithel Cells (Auto) Urine Bacteria (Auto) Urine Yeast Urine Test POC Ur Test Salicylates < 1.7 L Urine Opiates Screen Ur Methadone, Qual Acetaminophen < 2 L Urine Barbiturates Ur Phencyclidine (PCP) U Amphetamin/Meth Scrn MDMA (Ecstasy) Screen U Benzodiazepines Scrn Ur Cocaine Metabolite U Marijuana (THC) Screen Ethyl Alcohol mg/dL < 3.0 SARS-CoV-2, RNA, NAAT NEGATIVE 09/03/21 09/03/21 09/04/21 17:44 19:52 00:47 WBC RBC Hgb Hct MCV MCH MCHC RDW Std Deviation RDW Coeff of Abel Plt Count MPV Immature Gran % (Auto) Neut % (Auto) Lymph % (Auto) Mills % (Auto) Eos % (Auto) Baso % (Auto) Neut # (Auto) Lymph # (Auto) Mills # (Auto) Eos # (Auto) Baso # (Auto) Immature Gran # (Auto) Sodium Potassium Chloride Carbon Dioxide Anion Gap BUN Creatinine Est Cr Clr Drug Dosing Est GFR ( Amer) Est GFR (Non-Af Amer) BUN/Creatinine Ratio Glucose POC Glucose 135 H 166 H 80 Estimat Average Glucose Hemoglobin A1c Calcium Total Bilirubin AST ALT Alkaline Phosphatase Total Protein Albumin Globulin Albumin/Globulin Ratio Triglycerides Cholesterol LDL Cholesterol, Calc VLDL Cholesterol, Calc HDL Cholesterol Cholesterol/HDL Ratio TSH Urine Color Urine Appearance Urine pH Ur Specific [place] Urine Protein Urine Glucose (UA) Urine Ketones Urine Blood Urine Nitrite Urine Bilirubin Urine Urobilinogen Ur Leukocyte Esterase Urine WBC (Auto) Urine RBC (Auto) U Hyaline Cast (Auto) U Epithel Cells (Auto) Urine Bacteria (Auto) Urine Yeast Urine Test POC Ur Test Salicylates Urine Opiates Screen Ur Methadone, Qual Acetaminophen Urine Barbiturates Ur Phencyclidine (PCP) U Amphetamin/Meth Scrn MDMA (Ecstasy) Screen U Benzodiazepines Scrn Ur Cocaine Metabolite U Marijuana (THC) Screen Ethyl Alcohol mg/dL SARS-CoV-2, RNA, NAAT 09/04/21 09/04/21 09/04/21 07:48 08:12 08:12 WBC RBC Hgb Hct MCV MCH MCHC RDW Std Deviation RDW Coeff of Abel Plt Count MPV Immature Gran % (Auto) Neut % (Auto) Lymph % (Auto) Mills % (Auto) Eos % (Auto) Baso % (Auto) Neut # (Auto) Lymph # (Auto) Mills # (Auto) Eos # (Auto) Baso # (Auto) Immature Gran # (Auto) Sodium Potassium Chloride Carbon Dioxide Anion Gap BUN Creatinine Est Cr Clr Drug Dosing Est GFR ( Amer) Est GFR (Non-Af Amer) BUN/Creatinine Ratio Glucose POC Glucose 108 H Estimat Average Glucose 206 Hemoglobin A1c 8.8 H Calcium Total Bilirubin AST ALT Alkaline Phosphatase Total Protein Albumin Globulin Albumin/Globulin Ratio Triglycerides 510 H Cholesterol 227 H LDL Cholesterol, Calc VLDL Cholesterol, Calc HDL Cholesterol 34 Cholesterol/HDL Ratio 7 TSH Urine Color Urine Appearance Urine pH Ur Specific [place] Urine Protein Urine Glucose (UA) Urine Ketones Urine Blood Urine Nitrite Urine Bilirubin Urine Urobilinogen Ur Leukocyte Esterase Urine WBC (Auto) Urine RBC (Auto) U Hyaline Cast (Auto) U Epithel Cells (Auto) Urine Bacteria (Auto) Urine Yeast Urine Test POC Ur Test Salicylates Urine Opiates Screen Ur Methadone, Qual Acetaminophen Urine Barbiturates Ur Phencyclidine (PCP) U Amphetamin/Meth Scrn MDMA (Ecstasy) Screen U Benzodiazepines Scrn Ur Cocaine Metabolite U Marijuana (THC) Screen Ethyl Alcohol mg/dL SARS-CoV-2, RNA, NAAT Current Inpatient Medications Current Inpatient Medications: Current Inpatient Medications Acetaminophen (Acetaminophen 325 Mg Tab) 325 mg PO QID PRN PRN Reason: pain Stop: 10/03/21 16:40 Al Hydrox/Mg Hydrox/Simethicone (Aluminum/Magnesium Susp 30 Ml Udc) 30 ml PO Q4H PRN PRN Reason: GI Upset Stop: 10/03/21 16:54 Aspirin (Aspirin 81 Mg Ectab) [facility] Stop: 10/04/21 08:59 Last Admin: 09/04/21 08:55 Dose: 81 mg Documented by: Atorvastatin Calcium (Atorvastatin 40 Mg Tab) 80 mg PO [facility] Stop: 10/03/21 20:59 Last Admin: 09/03/21 21:08 Dose: 40 mg Documented by: Benztropine Mesylate (Benztropine Mesylate 1 Mg Tab) 1 mg PO [facility] Stop: 10/03/21 20:59 Last Admin: 09/03/21 21:08 Dose: 1 mg Documented by: Bismuth Subsalicylate (Bismuth Subsalicylate Liqd 236 Ml) 15 ml PO PRN PRN PRN Reason: Loose Stool Stop: 10/03/21 16:54 Dextrose (Dextrose 50% 50 Ml Syringe) 25 - 50 ml IV UD PRN; Protocol PRN Reason: Hypoglycemia Protocol Stop: 10/03/21 17:59 Ferrous Sulfate (Ferrous Sulfate 325 Mg Tab) 325 mg PO QAM [facility] Stop: 10/04/21 08:59 Glucagon (Glucagon For Inj 1 Mg Vial) 1 mg IM UD PRN; Protocol PRN Reason: Hypoglycemia Protocol Stop: 10/03/21 17:59 Glucose (Glucose 40% Gel 15 Gm Tube) 15 - 30 gm PO UD PRN; Protocol PRN Reason: Hypoglycemia Protocol Stop: 10/03/21 17:59 Glucose (Glucose 10 Tabs/Tube) 4 - 8 tabs PO UD PRN; Protocol PRN Reason: Hypoglycemia Protocol Stop: 10/03/21 17:59 HCTZ/Losartan Potassium (Losartan/Hctz 50/12.5mg Tab) 1 tab PO QAM [facility] Stop: 10/04/21 08:59 Last Admin: 09/04/21 08:56 Dose: 1 tab Documented by: Hydroxyzine HCl (Hydroxyzine Hcl 25 Mg Tab) 25 mg PO TID PRN PRN Reason: Anxiety Stop: 10/03/21 16:40 Insulin Aspart (Insulin Aspart 100 Units/Ml 3 Ml Pen) 0 units SC ACHS [facility] Stop: 10/03/21 18:14 Last Admin: 09/04/21 09:07 Dose: 23 units Documented by: Insulin Detemir (Insulin Detemir) 115 units SC BID [facility] Stop: 10/04/21 20:59 Magnesium Hydroxide (Magnesium Hydroxide Susp 30 Ml Udc) 30 ml PO DAILY PRN PRN Reason: Constipation Stop: 10/03/21 16:54 Metformin HCl (Metformin Hcl Er 500 Mg Tabcr) 500 mg PO BID17 [facility] Stop: 10/03/21 17:59 Last Admin: 09/04/21 08:56 Dose: 500 mg Documented by: Methimazole (Methimazole 5 Mg Tablet) 10 mg PO QAM [facility] Stop: 10/04/21 08:59 Last Admin: 09/04/21 08:57 Dose: 5 mg Documented by: Miscellaneous (Carbohydrates For Hypoglycemia ) 15 - 30 gm PO UD PRN PRN Reason: Hypoglycemia Treatment Stop: 10/03/21 17:59 Miscellaneous Information (Pharmacy Glycemic Mgmt Consult) 1 ea N/A UD PRN PRN Reason: Consult Stop: 10/03/21 16:55 Olanzapine (Olanzapine 5 Mg Tablet) 5 mg PO TODAY@1500 [facility] Stop: 10/04/21 14:59 Olanzapine (Olanzapine 10 Mg Tab) 30 mg PO HS [facility] Stop: 10/04/21 21:59 Quetiapine Fumarate (Quetiapine Fumarate 25 Mg Tablet) 25 mg PO QAM [facility] Stop: 10/05/21 08:59 Quetiapine Fumarate (Quetiapine Fumarate 25 Mg Tablet) 50 mg PO HS [facility] Stop: 10/04/21 21:59 Sodium Chloride (Sodium Chloride 0.65% Na Soln 45 Ml ([place])) 1 - 2 sprays NA PRN PRN PRN Reason: Nasal Dryness/Congestion Stop: 10/03/21 16:54 Zolpidem Tartrate (Zolpidem Tartrate 10 Mg Tab) 10 mg PO HS PRN PRN Reason: Insomnia Stop: 10/03/21 16:40
[2021-09-04] MEDS: OLANZapine 5 MG TABLET PO SCH (15:12)
[2021-09-04] MEDS: QUEtiapine FUMARATE 25 MG TABLET PO SCH (21:04)
[2021-09-04] MEDS: ATORVASTATIN 40 MG TAB PO SCH (21:05)
[2021-09-04] MEDS: OLANZapine 10 MG TAB PO SCH (21:06)
[2021-09-04] MEDS: BENZTROPINE MESYLATE 1 MG TAB PO SCH (21:06)
[2021-09-04] MEDS: INSULIN DETEMIR SC SCH (21:08)
[2021-09-04] MEDS: OMEGA-3 (PURIFIED FISH OIL) 1 GM CAP PO SCH (21:18)
[2021-09-04] MEDS ORDERED: OLANZapine 20 MG TABLET PO SCH (22:00)
[2021-09-04] MEDS ORDERED: OLANZapine 10 MG TAB PO SCH (22:00)
[2021-09-05] MEDS: ASPIRIN 81 MG ECTAB PO SCH (10:10)
[2021-09-05] MEDS: LOSARTAN/HCTZ 50/12.5MG TAB PO SCH (10:11)
[2021-09-05] MEDS: FERROUS SULFATE 325 MG TAB PO SCH (10:11)
[2021-09-05] MEDS: QUEtiapine FUMARATE 25 MG TABLET PO SCH ×2 (10:12→20:55)
[2021-09-05] MEDS: metFORMIN HCL ER 500 MG TABCR PO SCH ×2 (10:12→17:03)
[2021-09-05] MEDS: methIMAzole 5 MG TABLET PO SCH (10:16)
[2021-09-05] MEDS: OMEGA-3 (PURIFIED FISH OIL) 1 GM CAP PO SCH (10:17)
[2021-09-05] MEDS: INSULIN ASPART 100 UNITS/ML 3 ML PEN SC SCH ×4 (10:23→20:46)
[2021-09-05] MEDS: INSULIN DETEMIR SC SCH ×2 (10:28→20:48)
--- NOTE | 2021-09-05 13:07 | Psychiatric Progress Note ---
Date of Service September 05, 2021 Impression / Recommendations Impression The patient is a 56 year old with a history of schizophrenia who was admitted for worsening delusions and depression with SI. Diagnostically consistent with acute exacerbation of schizophrenia and unspecified depression-adjustment disorder vs worsening mood in context of increasing psychotic symptoms vs MDD. The patient is deemed unstable and requires psychiatric hospitalization for diagnostic clarification, safety and stabilization, medication management and development of further coping skills. MNPR due to psychosis with paranoia, ideas of reference and actively responding to internal stimuli 09/05/20: Continues to present with psychosis and delusions of but is taking medications just lower than prescribed dosages. Given excessive sedation this morning the lower dose of olanzapine and seroquel seems reasonable at this point. Per chart review she has a history of hypertriglyceridemia and takes non- formulary fibrate medication at home for this. I ordered fish oil which can also help but she declined this due to the pill size. Continue with current medications as she declines any medication changes at this point. Will discuss with her outpt provider tomorrow. (1) Schizophrenia: (2) Depression: (3) Suicidal ideation: 09/05/21: continue current medications, will attempt collateral from her outpt psychiatrist tomorrow. Discontinue fish oil as she refuses due to large pill size. 09/04/21: The patient was admitted to the [facility] ([facility] mental health unit) on q15 min checks (behavioral with suicide precautions) for safety. The patient will participate in group, recreational, and milieu therapies and will be offered additional individual and family sessions as clinically appropriate. -Continue prior to admission medications including: ambien 10mg qhs prn, olanzapine 5mg qafternoon & 30 mg qhs, seroquel 25mg qAM & 50 mg qhs -EKG to assess QTc given multiple prolonging agents and high dose olanzapine -Contact outpatient psychiatrist for further collateral Inventory Assets Strengths: outpt providers, family support, motivated to seek treatment Needs: additional outpt resources, increased opportunities for social interactions Risk Factors Assessment : Yes Do You Have Access To A Gun?: No Health Problems: Yes Mental Health Diagnoses: Yes Substance Use Disorders: No Previous Attempt: Yes Previous Attempt; Highly Lethal: Yes Family History of Suicide: No Previous Psychiatric Hospitalization: Yes Hopelessness: No Smoker: No Protective Factors Assessment [employer] Beliefs: Yes Employed: No Stable Relationships: Yes Supportive Family: Yes Good Rapport with Provider: Yes Interval History Identifying Information AMADO OLSON is a 56-year-old F who currently lives in a custodial, [facility], has a history of schizophrenia, and was admitted on 09/03/21 17:26 on a 201 voluntary commitment for worsening delusions and depression with SI. Chief Complaint "I don't want the full dose of my lipitor, just one tab is enough for me". Review of Systems Sleep Information Total Hours of Sleep: 6.75 Meal Information Percent Meal Consumed - Breakfast: 100 Percent Meal Consumed - Lunch: 100 Percent Meal Consumed - Dinner: 90 Subjective Subjective Patient was seen & assessed and interval progress reviewed with treatment team nursing and social work. She continues to respond to internal stimuli and report that she is and therefore cannot take medications. With reassurance she has been taking some of her medications but lower doses. She reports good sleep last night and denies feeling overly sedated nor interested in reducing morning Seroquel even though we discuss that staff noted that she was sleeping very deeply and somewhat difficult to rouse. She continues to have command AH telling her "kill yourself, go to [facility], shot the child" as well as noting that the voices are kicking her stomach and trying to harm the baby. She also endorsed AH of god telling her not to take medications because it would hurt the baby. She continues to have SI but denies plan or intent. She remains concerned about the TV in her room at [facility] stating that it is jinxed and reyna her and sends her messages and "frightens me". Physical Exam Psychiatric Orientation: alert and oriented x 3 Apperance: appropriately dressed and appropriately groomed Eye Contact: good eye contact Motor Behavior: steady gait and station and no abnormal motor movements Speech: normal rate/rhythm/volume of speech Affect: + constricted affect Mood: + depressed mood Thought Process: + circumstantial thought process Thought Content: + paranoid, + delusions and + ideas of reference Suicidal Thoughts: denies suicidal plan and denies suicidal intent (feels safe in the hospital, will let staff know if SI intensifies ); + reports suicidal thoughts Homicidal Thoughts: denies homicidal thoughts Hallucinations: + auditory hallucinations (screaming baby); no visual hallucinations Cognition: recent memory grossly intact, remote memory grossly intact, attention grossly intact and language grossly intact Estimated Intelligence: consistent with education level Insight: + impaired insight Judgement: + impaired judgement Vital Signs (Past 24 Hours) Last Vital Signs Temp 35.6 C L 09/04/21 20:00 Pulse 81 09/04/21 06:48 Resp 16 09/04/21 06:00 BP 148/92 H 09/04/21 06:48 Pulse Ox 99 09/03/21 17:40 Results & Data ([facility]) Laboratory Results Laboratory Results - last 24 hr 09/04/21 09/04/21 09/05/21 17:12 19:51 07:57 POC Glucose 113 H 127 H 104 H 09/05/21 12:28 POC Glucose 156 H Current Inpatient Medications Current Inpatient Medications: Current Inpatient Medications Acetaminophen (Acetaminophen 325 Mg Tab) 325 mg PO QID PRN PRN Reason: pain Stop: 10/03/21 16:40 Al Hydrox/Mg Hydrox/Simethicone (Aluminum/Magnesium Susp 30 Ml Udc) 30 ml PO Q4H PRN PRN Reason: GI Upset Stop: 10/03/21 16:54 Aspirin (Aspirin 81 Mg Ectab) 81 mg PO [facility] Stop: 10/04/21 08:59 Last Admin: 09/05/21 10:10 Dose: 81 mg Documented by: Atorvastatin Calcium (Atorvastatin 40 Mg Tab) 80 mg PO [facility] Stop: 10/03/21 20:59 Last Admin: 09/04/21 21:05 Dose: 40 mg Documented by: Benztropine Mesylate (Benztropine Mesylate 1 Mg Tab) 1 mg PO [facility] Stop: 10/03/21 20:59 Last Admin: 09/04/21 21:06 Dose: 1 mg Documented by: Bismuth Subsalicylate (Bismuth Subsalicylate Liqd 236 Ml) 15 ml PO PRN PRN PRN Reason: Loose Stool Stop: 10/03/21 16:54 Dextrose (Dextrose 50% 50 Ml Syringe) 25 - 50 ml IV UD PRN; Protocol PRN Reason: Hypoglycemia Protocol Stop: 10/03/21 17:59 Ferrous Sulfate (Ferrous Sulfate 325 Mg Tab) [facility] Stop: 10/04/21 08:59 Last Admin: 09/05/21 10:11 Dose: 325 mg Documented by: Fish Oil ([place]-3 (Purified Fish Oil) 1 Gm Cap) 2 gm PO BID [facility] Stop: 10/04/21 20:59 Last Admin: 09/05/21 10:17 Dose: Not Given Documented by: Glucagon (Glucagon For Inj 1 Mg Vial) 1 mg IM UD PRN; Protocol PRN Reason: Hypoglycemia Protocol Stop: 10/03/21 17:59 Glucose (Glucose 40% Gel 15 Gm Tube) 15 - 30 gm PO UD PRN; Protocol PRN Reason: Hypoglycemia Protocol Stop: 10/03/21 17:59 Glucose (Glucose 10 Tabs/Tube) 4 - 8 tabs PO UD PRN; Protocol PRN Reason: Hypoglycemia Protocol Stop: 10/03/21 17:59 HCTZ/Losartan Potassium (Losartan/Hctz 50/12.5mg Tab) 1 tab PO QAM [facility] Stop: 10/04/21 08:59 Last Admin: 09/05/21 10:11 Dose: 1 tab Documented by: Hydroxyzine HCl (Hydroxyzine Hcl 25 Mg Tab) 25 mg PO TID PRN PRN Reason: Anxiety Stop: 10/03/21 16:40 Insulin Aspart (Insulin Aspart 100 Units/Ml 3 Ml Pen) 0 units SC ACHS [facility] Stop: 10/03/21 18:14 Last Admin: 09/05/21 12:44 Dose: 19 units Documented by: Insulin Detemir (Insulin Detemir) 115 units SC BID [facility] Stop: 10/04/21 20:59 Last Admin: 09/05/21 10:28 Dose: 115 units Documented by: Magnesium Hydroxide (Magnesium Hydroxide Susp 30 Ml Udc) 30 ml PO DAILY PRN PRN Reason: Constipation Stop: 10/03/21 16:54 Metformin HCl (Metformin Hcl Er 500 Mg Tabcr) 500 mg PO BID17 [facility] Stop: 10/03/21 17:59 Last Admin: 09/05/21 10:12 Dose: 500 mg Documented by: Methimazole (Methimazole 5 Mg Tablet) 10 mg PO QAM [facility] Stop: 10/04/21 08:59 Last Admin: 09/05/21 10:16 Dose: 5 mg Documented by: Miscellaneous (Carbohydrates For Hypoglycemia ) 15 - 30 gm PO UD PRN PRN Reason: Hypoglycemia Treatment Stop: 10/03/21 17:59 Miscellaneous Information (Pharmacy Glycemic Mgmt Consult) 1 ea N/A UD PRN PRN Reason: Consult Stop: 10/03/21 16:55 Olanzapine (Olanzapine 5 Mg Tablet) 5 mg PO TODAY@1500 [facility] Stop: 10/04/21 14:59 Last Admin: 09/04/21 15:12 Dose: 5 mg Documented by: Olanzapine (Olanzapine 10 Mg Tab) 30 mg PO HS [facility] Stop: 10/04/21 21:59 Last Admin: 09/04/21 21:06 Dose: 20 mg Documented by: Quetiapine Fumarate (Quetiapine Fumarate 25 Mg Tablet) 25 mg PO QAM [facility] Stop: 10/05/21 08:59 Last Admin: 09/05/21 10:12 Dose: 25 mg Documented by: Quetiapine Fumarate (Quetiapine Fumarate 25 Mg Tablet) 50 mg PO HS [facility] Stop: 10/04/21 21:59 Last Admin: 09/04/21 21:04 Dose: 25 mg Documented by: Sodium Chloride (Sodium Chloride 0.65% Na Soln 45 Ml ([place])) 1 - 2 sprays NA PRN PRN PRN Reason: Nasal Dryness/Congestion Stop: 10/03/21 16:54 Zolpidem Tartrate (Zolpidem Tartrate 10 Mg Tab) 10 mg PO HS PRN PRN Reason: Insomnia Stop: 10/03/21 16:40 Mental Health & Subst Abuse Tx Psychiatrist Name of Psychiatrist: Irma Lawson Psychiatrist's Psychiatric Appointment Comment: [phone] Therapist Name of Therapist: Irma Holguin Therapist's Therapy Appointment Comment: [phone] [facility] LIVIA Bradley Synthetic Filament Extruder Name of Synthetic Filament Extruder: [facility] - Shweta Castellano Phone Number for Synthetic Filament Extruder: [phone] Post Discharge Appointments Primary Care Physician Name Of Family Doctor: JAYJAY Reece Primary Care Date of Appointment with PCP: 11/03/21 Time of Appointment with PCP: 12:40 p.m. Provider Appointment Comment: [phone] [facility] Contact Information Discharge Discharge Address: [address] [address] (1) Schizophrenia Schizophrenia type: paranoid schizophrenia Qualified Code(s): F20.0 - Paranoid schizophrenia
[2021-09-05] MEDS: OLANZapine 5 MG TABLET PO SCH (14:38)
[2021-09-05] MEDS: ATORVASTATIN 40 MG TAB PO SCH (20:53)
[2021-09-05] MEDS: OLANZapine 10 MG TAB PO SCH (20:54)
[2021-09-05] MEDS: BENZTROPINE MESYLATE 1 MG TAB PO SCH (20:55)
--- NOTE | 2021-09-05 21:53 | Electrocardiogram Report ---
Test Reason : Blood Pressure : / mmHG Vent. Rate : 067 BPM Atrial Rate : 067 BPM P-R Int : 158 ms QRS Dur : 088 ms QT Int : 408 ms P-R-T Axes : 058 088 076 degrees QTc Int : 431 ms Normal sinus rhythm Normal ECG When compared with ECG of 04-SEP-2010 22:47, T wave amplitude has decreased in Lateral leads Confirmed by Ede Aiken ([id number]) on 09/05/2021 9:53:22 PM Referred By: REFERRED SELF Confirmed By:Ede Aiken
[2021-09-06] MEDS: hydrOXYzine HCl 25 MG TAB PO PRN (04:02)
[2021-09-06] MEDS ORDERED: INSULIN DETEMIR SC ONE (09:00)
--- NOTE | 2021-09-06 09:15 | Pharmacy Report ---
Pharmacy Glycemic Short Note 2 - Date of Service September 06, 2021 - Glycemic Short BSG Results (Last 24 hours): 09/05/21 09/05/21 09/05/21 12:28 16:57 20:26 POC Glucose 156 H 164 H 117 H 09/06/21 04:16 POC Glucose 86 OUTPATIENT ANTIDIABETIC REGIMEN: * Levemir 140 units AM + 100 units HS * Jardiance 10mg Q AM * Glipizide 10mg BID * Victoza 1.8mg SQ daily * A1c = 8.8% 09/04/21 ASSESSMENT: * Type 2 diabetic admitted to MHU * Patient is know to glycemic control service due to past admissions * She was started on a basal/bolus SQ regimen + metformin that has worked well for her in the past * Fasting BSG did dip to 80s overnight, FBS not yet available this AM. Will reduce basal insulin dose this AM as a precaution. * Post-prandial BSGs well controlled w/ current Novolog CF/CR - no change PLAN FOR INPATIENT GLYCEMIC CONTROL: * Hold outpatient oral diabetes medications * Basal insulin * Levemir 90 units x 1 this AM, then resume 115 units SQ BID * Bolus insulin * NovoLog per scale ACHS or Q6hrs while NPO * Goal Range: Low 110 mg/dL - High 140 mg/dL * Correction Factor: 10 mg/dL/unit * Nutritional / Prandial insulin per carb ratio of 1 unit per 3.5 grams CHO consumed PLAN FOR DISCHARGE: * to be determined
[2021-09-06] MEDS: FERROUS SULFATE 325 MG TAB PO SCH (11:01)
[2021-09-06] MEDS: LOSARTAN/HCTZ 50/12.5MG TAB PO SCH (11:01)
[2021-09-06] MEDS: ASPIRIN 81 MG ECTAB PO SCH (11:01)
[2021-09-06] MEDS: methIMAzole 5 MG TABLET PO SCH (11:01)
[2021-09-06] MEDS: QUEtiapine FUMARATE 25 MG TABLET PO SCH ×2 (11:01→20:36)
[2021-09-06] MEDS: metFORMIN HCL ER 500 MG TABCR PO SCH ×2 (11:02→17:02)
[2021-09-06] MEDS: INSULIN ASPART 100 UNITS/ML 3 ML PEN SC SCH ×4 (11:10→20:37)
[2021-09-06] MEDS: OLANZapine 5 MG TABLET PO SCH (15:25)
--- NOTE | 2021-09-06 15:54 | Psychiatric Progress Note ---
Date of Service September 06, 2021 Impression / Recommendations Impression The patient is a 56 year old with a history of schizophrenia who was admitted for worsening delusions and depression with SI. Diagnostically consistent with acute exacerbation of schizophrenia and unspecified depression-adjustment disorder vs worsening mood in context of increasing psychotic symptoms vs MDD. The patient is deemed unstable and requires psychiatric hospitalization for diagnostic clarification, safety and stabilization, medication management and development of further coping skills. MNPR due to psychosis with paranoia, ideas of reference and actively responding to internal stimuli 09/06/20: Continues to present with psychosis and delusions of but is taking medications just lower than prescribed dosages. Reviewed [employer] and she has been prescribed ambien consistently so will make this available prn while in the hospital. She consents to this, reviewed side effects including but not limited to potential for dangerous nighttime sleep behaviors, potential for worsening sedation/grogginess in the morning, fall risk. Plan: Left message with her outpt provider Lulu Ren at [facility]. (1) Schizophrenia: (2) Depression: (3) Suicidal ideation: 09/06/21: adding ambien 10mg qhs prn as prior to admission medication and she continues to feel insomnia is a concern (verified in [employer]). Continue other medications. Left message with [facility] provider. Requested [facility] staff remove TV from her room per her request. 09/05/21: continue current medications, will attempt collateral from her outpt psychiatrist tomorrow. Discontinue fish oil as she refuses due to large pill size. 09/04/21: The patient was admitted to the [facility] ([facility] mental health unit) on q15 min checks (behavioral with suicide precautions) for safety. The patient will participate in group, recreational, and milieu therapies and will be offered additional individual and family sessions as clinically appropriate. -Continue prior to admission medications including: ambien 10mg qhs prn, olanzapine 5mg qafternoon & 30 mg qhs, seroquel 25mg qAM & 50 mg qhs -EKG to assess QTc given multiple prolonging agents and high dose olanzapine -Contact outpatient psychiatrist for further collateral Inventory Assets Strengths: outpt providers, family support, motivated to seek treatment Needs: additional outpt resources, increased opportunities for social interactions Risk Factors Assessment : Yes Do You Have Access To A Gun?: No Health Problems: Yes Mental Health Diagnoses: Yes Substance Use Disorders: No Previous Attempt: Yes Previous Attempt; Highly Lethal: Yes Family History of Suicide: No Previous Psychiatric Hospitalization: Yes Hopelessness: No Smoker: No Protective Factors Assessment Islam Beliefs: Yes Employed: No Stable Relationships: Yes Supportive Family: Yes Good Rapport with Provider: Yes Interval History Identifying Information SANJUANITA OLSON is a 56-year-old F who currently lives in a [place], [facility], has a history of schizophrenia, and was admitted on 09/03/21 17:26 on a 201 voluntary commitment for worsening delusions and depression with SI. Chief Complaint "I'm ok". Review of Systems Sleep Information Total Hours of Sleep: 4.5 Sleep Comments: pt requested Vistaril at 0402, pt reported it was ineffective. Meal Information Percent Meal Consumed - Breakfast: 100 Percent Meal Consumed - Lunch: 100 Percent Meal Consumed - Dinner: 100 Subjective Subjective Patient was seen & assessed and interval progress reviewed with treatment team nursing and social work. Sanjuanita continues to have delusions about being , command AH and reluctance to take full doses of her medications. Today she reports her mood is "ok" though she continues to feel she is not sleeping well (even though she sleeps very deeply in the morning). She requests having her prior to admission ambien available as she feels this helps significantly with falling asleep. She is feeling very relieved that staff at [facility] are willing to remove the TV from her room as she feels the TV was "jinxing" her. Physical Exam Psychiatric Orientation: alert and oriented x 3 Apperance: appropriately dressed and appropriately groomed Eye Contact: good eye contact Motor Behavior: steady gait and station and no abnormal motor movements Speech: normal rate/rhythm/volume of speech Affect: + constricted affect Mood: + depressed mood Thought Process: + circumstantial thought process Thought Content: + paranoid, + delusions and + ideas of reference Suicidal Thoughts: denies suicidal plan and denies suicidal intent (feels safe in the hospital, will let staff know if SI intensifies ); + reports suicidal thoughts Homicidal Thoughts: denies homicidal thoughts Hallucinations: + auditory hallucinations (screaming baby, voices saying threatening and nasty things); no visual hallucinations Cognition: recent memory grossly intact, remote memory grossly intact, attention grossly intact and language grossly intact Estimated Intelligence: consistent with education level Insight: + impaired insight Judgement: + impaired judgement Vital Signs (Past 24 Hours) Last Vital Signs Temp 36.5 C 09/06/21 06:00 Pulse 80 09/06/21 06:06 Resp 16 09/06/21 06:00 BP 138/88 09/06/21 06:06 Pulse Ox 99 09/03/21 17:40 Results & Data ([facility]) Laboratory Results Laboratory Results - last 24 hr 09/03/21 09/05/21 09/05/21 14:14 16:57 20:26 POC Glucose 164 H 117 H POC Ur Test Cancelled 09/06/21 09/06/21 09/06/21 04:16 10:54 12:36 POC Glucose 86 118 H 170 H POC Ur Test Current Inpatient Medications Current Inpatient Medications: Current Inpatient Medications Acetaminophen (Acetaminophen 325 Mg Tab) 325 mg PO QID PRN PRN Reason: pain Stop: 10/03/21 16:40 Al Hydrox/Mg Hydrox/Simethicone (Aluminum/Magnesium Susp 30 Ml Udc) 30 ml PO Q4H PRN PRN Reason: GI Upset Stop: 10/03/21 16:54 Aspirin (Aspirin 81 Mg Ectab) 81 mg PO [facility] Stop: 10/04/21 08:59 Last Admin: 09/06/21 11:01 Dose: 81 mg Documented by: Atorvastatin Calcium (Atorvastatin 40 Mg Tab) 80 mg PO [facility] Stop: 10/03/21 20:59 Last Admin: 09/05/21 20:53 Dose: 40 mg Documented by: Benztropine Mesylate (Benztropine Mesylate 1 Mg Tab) 1 mg PO [facility] Stop: 10/03/21 20:59 Last Admin: 09/05/21 20:55 Dose: 1 mg Documented by: Bismuth Subsalicylate (Bismuth Subsalicylate Liqd 236 Ml) 15 ml PO PRN PRN PRN Reason: Loose Stool Stop: 10/03/21 16:54 Dextrose (Dextrose 50% 50 Ml Syringe) 25 - 50 ml IV UD PRN; Protocol PRN Reason: Hypoglycemia Protocol Stop: 10/03/21 17:59 Ferrous Sulfate (Ferrous Sulfate 325 Mg Tab) 325 mg PO QAM [facility] Stop: 10/04/21 08:59 Last Admin: 09/06/21 11:01 Dose: 325 mg Documented by: Glucagon (Glucagon For Inj 1 Mg Vial) 1 mg IM UD PRN; Protocol PRN Reason: Hypoglycemia Protocol Stop: 10/03/21 17:59 Glucose (Glucose 40% Gel 15 Gm Tube) 15 - 30 gm PO UD PRN; Protocol PRN Reason: Hypoglycemia Protocol Stop: 10/03/21 17:59 Glucose (Glucose 10 Tabs/Tube) 4 - 8 tabs PO UD PRN; Protocol PRN Reason: Hypoglycemia Protocol Stop: 10/03/21 17:59 HCTZ/Losartan Potassium (Losartan/Hctz 50/12.5mg Tab) 1 tab PO QAM [facility] Stop: 10/04/21 08:59 Last Admin: 09/06/21 11:01 Dose: 1 tab Documented by: Hydroxyzine HCl (Hydroxyzine Hcl 25 Mg Tab) 25 mg PO TID PRN PRN Reason: Anxiety Stop: 10/03/21 16:40 Last Admin: 09/06/21 04:02 Dose: 25 mg Documented by: Insulin Aspart (Insulin Aspart 100 Units/Ml 3 Ml Pen) 0 units SC ACHS [facility] Stop: 10/03/21 18:14 Last Admin: 09/06/21 13:00 Dose: 22 units Documented by: Insulin Detemir (Insulin Detemir) 115 units SC BID [facility] Stop: 10/06/21 20:59 Magnesium Hydroxide (Magnesium Hydroxide Susp 30 Ml Udc) 30 ml PO DAILY PRN PRN Reason: Constipation Stop: 10/03/21 16:54 Metformin HCl (Metformin Hcl Er 500 Mg Tabcr) 500 mg PO BID17 [facility] Stop: 10/03/21 17:59 Last Admin: 09/06/21 11:02 Dose: 500 mg Documented by: Methimazole (Methimazole 5 Mg Tablet) 10 mg PO QAM [facility] Stop: 10/04/21 08:59 Last Admin: 09/06/21 11:01 Dose: 5 mg Documented by: Miscellaneous (Carbohydrates For Hypoglycemia ) 15 - 30 gm PO UD PRN PRN Reason: Hypoglycemia Treatment Stop: 10/03/21 17:59 Miscellaneous Information (Pharmacy Glycemic Mgmt Consult) 1 ea N/A UD PRN PRN Reason: Consult Stop: 10/03/21 16:55 Olanzapine (Olanzapine 5 Mg Tablet) 5 mg PO TODAY@1500 [facility] Stop: 10/04/21 14:59 Last Admin: 09/06/21 15:25 Dose: 5 mg Documented by: Olanzapine (Olanzapine 10 Mg Tab) 30 mg PO HS [facility] Stop: 10/04/21 21:59 Last Admin: 09/05/21 20:54 Dose: 20 mg Documented by: Quetiapine Fumarate (Quetiapine Fumarate 25 Mg Tablet) 25 mg PO QAM [facility] Stop: 10/05/21 08:59 Last Admin: 09/06/21 11:01 Dose: 25 mg Documented by: Quetiapine Fumarate (Quetiapine Fumarate 25 Mg Tablet) 50 mg PO HS [facility] Stop: 10/04/21 21:59 Last Admin: 09/05/21 20:55 Dose: 25 mg Documented by: Sodium Chloride (Sodium Chloride 0.65% Na Soln 45 Ml ([place])) 1 - 2 sprays NA PRN PRN PRN Reason: Nasal Dryness/Congestion Stop: 10/03/21 16:54 Zolpidem Tartrate (Zolpidem Tartrate 10 Mg Tab) 10 mg PO HS PRN PRN Reason: Insomnia Stop: 10/03/21 16:40 Mental Health & Subst Abuse Tx Psychiatrist Name of Psychiatrist: Irma Lawson Psychiatrist's Date of Appointment with Psychiatrist: 10/07/21 Time of Appointment with Psychiatrist: 1:00 p.m. Psychiatric Appointment Comment: [id number] Therapist Name of Therapist: Irma Therapist's Date of Therapist Appointment: 09/14/21 Time of Therapist Appointment: 10:00 a.m. Therapy Appointment Comment: [id number] [facility] LIVIA Bradley Lab Associate Name of Lab Associate: [facility] - Shweta Castellano Phone Number for Lab Associate: [phone] Post Discharge Appointments Primary Care Physician Name Of Family Doctor: JAYJAY Reece Primary Care Date of Appointment with PCP: 11/03/21 Time of Appointment with PCP: 12:40 p.m. Provider Appointment Comment: [id number] [facility] Contact Information Discharge Discharge Address: [address] [address] (1) Schizophrenia Schizophrenia type: paranoid schizophrenia Qualified Code(s): F20.0 - Paranoid schizophrenia
[2021-09-06] MEDS: OLANZapine 10 MG TAB PO SCH (20:36)
[2021-09-06] MEDS: BENZTROPINE MESYLATE 1 MG TAB PO SCH (20:38)
[2021-09-06] MEDS: ATORVASTATIN 40 MG TAB PO SCH (20:38)
[2021-09-06] MEDS: INSULIN DETEMIR SC SCH (20:41)
[2021-09-07] MEDS: INSULIN ASPART 100 UNITS/ML 3 ML PEN SC SCH ×4 (09:44→21:13)
[2021-09-07] MEDS: INSULIN DETEMIR SC SCH (09:46)
[2021-09-07] MEDS: metFORMIN HCL ER 500 MG TABCR PO SCH ×2 (09:50→17:27)
[2021-09-07] MEDS: FERROUS SULFATE 325 MG TAB PO SCH (09:50)
[2021-09-07] MEDS: ASPIRIN 81 MG ECTAB PO SCH (09:51)
[2021-09-07] MEDS: QUEtiapine FUMARATE 25 MG TABLET PO SCH ×4 (09:51→21:19)
[2021-09-07] MEDS: methIMAzole 5 MG TABLET PO SCH (09:51)
[2021-09-07] MEDS: LOSARTAN/HCTZ 50/12.5MG TAB PO SCH (09:51)
--- NOTE | 2021-09-07 12:09 | Psychiatric Progress Note ---
Date of Service September 07, 2021 Impression / Recommendations Impression The patient is a 56 year old with a history of schizophrenia who was admitted for worsening delusions and depression with SI. Diagnostically consistent with acute exacerbation of schizophrenia and unspecified depression-adjustment disorder vs worsening mood in context of increasing psychotic symptoms vs MDD. The patient is deemed unstable and requires psychiatric hospitalization for diagnostic clarification, safety and stabilization, medication management and development of further coping skills. MNPR due to psychosis with paranoia, ideas of reference and actively responding to internal stimuli 09/07/20: Continues to present with psychosis and delusions of but is taking medications just lower than prescribed dosages. Some improvement in auditory hallucinations with less threatening command AH and no SI today. Symptoms fluctuate throughout the day. (1) Schizophrenia: (2) Depression: (3) Suicidal ideation: 09/07/21: continue current medications. Awaiting call from outpatient psychiatrist. For now will continue with olanzapine and seroquel given extensive past medication trials with limited benefit including clozapine per chart review. Continuing to focus on coping skills and reality-testing and challenging negative auditory hallucinations. 09/06/21: adding ambien 10mg qhs prn as prior to admission medication and she continues to feel insomnia is a concern (verified in [employer]). Continue other medications. Left message with [employer] provider. Requested [facility] staff remove TV from her room per her request. 09/05/21: continue current medications, will attempt collateral from her outpt psychiatrist tomorrow. Discontinue fish oil as she refuses due to large pill size. 09/04/21: The patient was admitted to the [facility] ([facility] inpatient mental health unit) on q15 min checks (behavioral with suicide precautions) for safety. The patient will participate in group, recreational, and milieu therapies and will be offered additional individual and family sessions as clinically appropriate. -Continue prior to admission medications including: ambien 10mg qhs prn, olanzapine 5mg qafternoon & 30 mg qhs, seroquel 25mg qAM & 50 mg qhs -EKG to assess QTc given multiple prolonging agents and high dose olanzapine -Contact outpatient psychiatrist for further collateral Inventory Assets Strengths: outpt providers, family support, motivated to seek treatment Needs: additional outpt resources, increased opportunities for social interactions Risk Factors Assessment : Yes Do You Have Access To A Gun?: No Health Problems: Yes Mental Health Diagnoses: Yes Substance Use Disorders: No Previous Attempt: Yes Previous Attempt; Highly Lethal: Yes Family History of Suicide: No Previous Psychiatric Hospitalization: Yes Hopelessness: No Smoker: No Protective Factors Assessment Alevism Beliefs: Yes Employed: No Stable Relationships: Yes Supportive Family: Yes Good Rapport with Provider: Yes Interval History Identifying Information AMADO OLSON is a 56-year-old F who currently lives in a senior care, [facility], has a history of schizophrenia, and was admitted on 09/03/21 17:26 on a 201 voluntary commitment for worsening delusions and depression with SI. Chief Complaint "I slept better". Review of Systems Sleep Information Total Hours of Sleep: 6 Sleep Comments: pt requested Vistaril at 0402, pt reported it was ineffective. Meal Information Percent Meal Consumed - Breakfast: 100 Percent Meal Consumed - Lunch: 100 Percent Meal Consumed - Dinner: 100 Subjective Subjective Patient was seen & assessed and interval progress reviewed with treatment team nursing and social work. Continues to request lower doses of her medications even thyroid and statin. She told her caseworker protective services yesterday that the voices have been telling her that her baby is going to be burned at the stake. She slept better with ambien last night and reports this helped her mood a bit. Denies SI today. Continues to have reports they are "a little better" today are telling her "stay in bed and get shots all day" and "fly to [place]" but she states "I know those aren't good ideas so I'm trying to ignore them". She denies any medication side effects. Physical Exam Psychiatric Orientation: alert and oriented x 3 Apperance: appropriately dressed and appropriately groomed Eye Contact: good eye contact Motor Behavior: steady gait and station and no abnormal motor movements Speech: normal rate/rhythm/volume of speech Affect: + constricted affect Mood: + depressed mood and + anxious mood Thought Process: + circumstantial thought process Thought Content: + paranoid, + delusions and + ideas of reference Suicidal Thoughts: denies suicidal thoughts Homicidal Thoughts: denies homicidal thoughts Hallucinations: + auditory hallucinations; no visual hallucinations Cognition: recent memory grossly intact, remote memory grossly intact, attention grossly intact and language grossly intact Estimated Intelligence: consistent with education level Insight: + impaired insight Judgement: + impaired judgement Vital Signs (Past 24 Hours) Last Vital Signs Temp 36.6 C 09/07/21 06:00 Pulse 70 09/07/21 06:04 Resp 16 09/07/21 06:00 BP 132/83 09/07/21 06:04 Pulse Ox 99 09/03/21 17:40 Results & Data ([facility]) Laboratory Results Laboratory Results - last 24 hr 09/06/21 09/06/21 09/06/21 12:36 16:59 20:22 POC Glucose 170 H 151 H 124 H 09/07/21 09:15 POC Glucose 92 Current Inpatient Medications Current Inpatient Medications: Current Inpatient Medications Acetaminophen (Acetaminophen 325 Mg Tab) 325 mg PO QID PRN PRN Reason: pain Stop: 10/03/21 16:40 Al Hydrox/Mg Hydrox/Simethicone (Aluminum/Magnesium Susp 30 Ml Udc) 30 ml PO Q4H PRN PRN Reason: GI Upset Stop: 10/03/21 16:54 Aspirin (Aspirin 81 Mg Ectab) [facility] Stop: 10/04/21 08:59 Last Admin: 09/07/21 09:51 Dose: 81 mg Documented by: Atorvastatin Calcium (Atorvastatin 40 Mg Tab) 80 mg PO [facility] Stop: 10/03/21 20:59 Last Admin: 09/06/21 20:38 Dose: 40 mg Documented by: Benztropine Mesylate (Benztropine Mesylate 1 Mg Tab) 1 mg PO [facility] Stop: 10/03/21 20:59 Last Admin: 09/06/21 20:38 Dose: 1 mg Documented by: Bismuth Subsalicylate (Bismuth Subsalicylate Liqd 236 Ml) 15 ml PO PRN PRN PRN Reason: Loose Stool Stop: 10/03/21 16:54 Dextrose (Dextrose 50% 50 Ml Syringe) 25 - 50 ml IV UD PRN; Protocol PRN Reason: Hypoglycemia Protocol Stop: 10/03/21 17:59 Ferrous Sulfate (Ferrous Sulfate 325 Mg Tab) 325 mg PO QAM [facility] Stop: 10/04/21 08:59 Last Admin: 09/07/21 09:50 Dose: 325 mg Documented by: Glucagon (Glucagon For Inj 1 Mg Vial) 1 mg IM UD PRN; Protocol PRN Reason: Hypoglycemia Protocol Stop: 10/03/21 17:59 Glucose (Glucose 40% Gel 15 Gm Tube) 15 - 30 gm PO UD PRN; Protocol PRN Reason: Hypoglycemia Protocol Stop: 10/03/21 17:59 Glucose (Glucose 10 Tabs/Tube) 4 - 8 tabs PO UD PRN; Protocol PRN Reason: Hypoglycemia Protocol Stop: 10/03/21 17:59 HCTZ/Losartan Potassium (Losartan/Hctz 50/12.5mg Tab) 1 tab PO QAM [facility] Stop: 10/04/21 08:59 Last Admin: 09/07/21 09:51 Dose: 1 tab Documented by: Hydroxyzine HCl (Hydroxyzine Hcl 25 Mg Tab) 25 mg PO TID PRN PRN Reason: Anxiety Stop: 10/03/21 16:40 Last Admin: 09/06/21 04:02 Dose: 25 mg Documented by: Insulin Aspart (Insulin Aspart 100 Units/Ml 3 Ml Pen) 0 units SC ACHS [facility] Stop: 10/03/21 18:14 Last Admin: 09/07/21 09:44 Dose: 13 units Documented by: Insulin Detemir (Insulin Detemir) 115 units SC BID [facility] Stop: 10/06/21 20:59 Last Admin: 09/07/21 09:46 Dose: 115 units Documented by: Magnesium Hydroxide (Magnesium Hydroxide Susp 30 Ml Udc) 30 ml PO DAILY PRN PRN Reason: Constipation Stop: 10/03/21 16:54 Metformin HCl (Metformin Hcl Er 500 Mg Tabcr) 500 mg PO BID17 [facility] Stop: 10/03/21 17:59 Last Admin: 09/07/21 09:50 Dose: 500 mg Documented by: Methimazole (Methimazole 5 Mg Tablet) 10 mg PO QAM [facility] Stop: 10/04/21 08:59 Last Admin: 09/07/21 09:51 Dose: 5 mg Documented by: Miscellaneous (Carbohydrates For Hypoglycemia ) 15 - 30 gm PO UD PRN PRN Reason: Hypoglycemia Treatment Stop: 10/03/21 17:59 Miscellaneous Information (Pharmacy Glycemic Mgmt Consult) 1 ea N/A UD PRN PRN Reason: Consult Stop: 10/03/21 16:55 Olanzapine (Olanzapine 5 Mg Tablet) 5 mg PO TODAY@1500 [facility] Stop: 10/04/21 14:59 Last Admin: 09/06/21 15:25 Dose: 5 mg Documented by: Olanzapine (Olanzapine 10 Mg Tab) 30 mg PO HS [facility] Stop: 10/04/21 21:59 Last Admin: 09/06/21 20:36 Dose: 20 mg Documented by: Quetiapine Fumarate (Quetiapine Fumarate 25 Mg Tablet) 25 mg PO QAM [facility] Stop: 10/05/21 08:59 Last Admin: 09/07/21 09:51 Dose: 25 mg Documented by: Quetiapine Fumarate (Quetiapine Fumarate 25 Mg Tablet) 50 mg PO HS [facility] Stop: 10/04/21 21:59 Last Admin: 09/06/21 20:36 Dose: 25 mg Documented by: Sodium Chloride (Sodium Chloride 0.65% Na Soln 45 Ml ([place])) 1 - 2 sprays NA PRN PRN PRN Reason: Nasal Dryness/Congestion Stop: 10/03/21 16:54 Zolpidem Tartrate (Zolpidem Tartrate 10 Mg Tab) 10 mg PO HS PRN PRN Reason: Insomnia Stop: 10/03/21 16:40 Last Admin: 09/06/21 20:59 Dose: 10 mg Documented by: Mental Health & Subst Abuse Tx Psychiatrist Name of Psychiatrist: Irma Lawson Psychiatrist's Date of Appointment with Psychiatrist: 10/07/21 Time of Appointment with Psychiatrist: 1:00 p.m. Psychiatric Appointment Comment: [id number] Therapist Name of Therapist: Irma Therapist's Date of Therapist Appointment: 09/14/21 Time of Therapist Appointment: 10:00 a.m. Therapy Appointment Comment: [id number] [facility] Admitting Clerk Name of Hospice Admitting Clerk: [employer] - Shweta Castellano Phone Number for Hospice Admitting Clerk: [phone] Post Discharge Appointments Primary Care Physician Name Of Family Doctor: JAYJAY Reece Primary [facility] Date of Appointment with PCP: 11/03/21 Time of Appointment with PCP: 12:40 p.m. Provider Appointment Comment: [phone] [facility] Contact Information Discharge Discharge Address: [facility], [address] [place] [address] (1) Schizophrenia Schizophrenia type: paranoid schizophrenia Qualified Code(s): F20.0 - Paranoid schizophrenia
[2021-09-07] MEDS: OLANZapine 5 MG TABLET PO SCH (15:07)
[2021-09-07] MEDS ORDERED: INSULIN DETEMIR SC ONE (21:00)
[2021-09-07] MEDS: OLANZapine 10 MG TAB PO SCH ×2 (21:06→21:19)
[2021-09-07] MEDS: BENZTROPINE MESYLATE 1 MG TAB PO SCH (21:06)
[2021-09-07] MEDS: ATORVASTATIN 40 MG TAB PO SCH ×2 (21:06→21:18)
[2021-09-07] MEDS: ZOLPIDEM TARTRATE 10 MG TAB PO SCH (21:07)
[2021-09-08] MEDS ORDERED: INSULIN ASPART PER UNIT SC SCH (08:00)
[2021-09-08] MEDS: ASPIRIN 81 MG ECTAB PO SCH (08:24)
[2021-09-08] MEDS: FERROUS SULFATE 325 MG TAB PO SCH (08:24)
[2021-09-08] MEDS: methIMAzole 5 MG TABLET PO SCH (08:25)
[2021-09-08] MEDS: LOSARTAN/HCTZ 50/12.5MG TAB PO SCH (08:25)
[2021-09-08] MEDS: metFORMIN HCL ER 500 MG TABCR PO SCH ×2 (08:25→17:14)
[2021-09-08] MEDS: INSULIN DETEMIR SC SCH ×3 (09:11→21:00)
--- NOTE | 2021-09-08 11:52 | Psychiatric Progress Note ---
Date of Service September 08, 2021 Impression / Recommendations Impression The patient is a 56 year old with a history of schizophrenia who was admitted for worsening delusions and depression with SI. Diagnostically consistent with acute exacerbation of schizophrenia and unspecified depression-adjustment disorder vs worsening mood in context of increasing psychotic symptoms vs MDD. The patient is deemed unstable and requires psychiatric hospitalization for diagnostic clarification, safety and stabilization, medication management and development of further coping skills. MNPR due to psychosis with paranoia, ideas of reference and actively responding to internal stimuli 09/08/20: Continues to present with psychosis and delusions of with ongoing auditory hallucinations which are threatening and causing worsening mood and anxiety with intermittent SI. Discussed medication options with Sanjuanita and she consents to trying a brief trial of risperidone in place of seroquel to see if this better targets the symptoms of psychosis. She remains on olanzapine as well. Reviewed benefits and risks including but not limited to movement side effects-TD, galactorrhea (will monitor closely given delusions about ), metabolic side effects, NMS. Will continue with dual antipsychotic therapy given her preference and previously documented failure of >3 antipsychotic trials of monotherapy and failed trial of clozapine. (1) Schizophrenia: (2) Depression: (3) Suicidal ideation: 09/08/21: Discontinue seroquel given hypertriglyceridemia and ongoing symptoms, starting risperidone 0.5 mg qAM & 1 mg qHS and continue olanzapine. 09/07/21: continue current medications. Awaiting call from outpatient psychiatrist. For now will continue with olanzapine and seroquel given extensive past medication trials with limited benefit including clozapine per chart review. Continuing to focus on coping skills and reality-testing and challenging negative auditory hallucinations. 09/06/21: adding ambien 10mg qhs prn as prior to admission medication and she continues to feel insomnia is a concern (verified in [employer]). Continue other medications. Left message with [employer] provider. Requested [facility] staff remove TV from her room per her request. 09/05/21: continue current medications, will attempt collateral from her outpt psychiatrist tomorrow. Discontinue fish oil as she refuses due to large pill size. 09/04/21: The patient [facility] on q15 min checks (behavioral with suicide precautions) for safety. The patient will participate in group, recreational, and milieu therapies and will be offered additional individual and family sessions as clinically appropriate. -Continue prior to admission medications including: ambien 10mg qhs prn, olanzapine 5mg qafternoon & 30 mg qhs, seroquel 25mg qAM & 50 mg qhs -EKG to assess QTc given multiple prolonging agents and high dose olanzapine -Contact outpatient psychiatrist for further collateral Inventory Assets Strengths: outpt providers, family support, motivated to seek treatment Needs: additional outpt resources, increased opportunities for social interactions Risk Factors Assessment : Yes Do You Have Access To A Gun?: No Health Problems: Yes Mental Health Diagnoses: Yes Substance Use Disorders: No Previous Attempt: Yes Previous Attempt; Highly Lethal: Yes Family History of Suicide: No Previous Psychiatric Hospitalization: Yes Hopelessness: No Smoker: No Protective Factors Assessment Confucianist Beliefs: Yes Employed: No Stable Relationships: Yes Supportive Family: Yes Good Rapport with Provider: Yes Interval History Identifying Information SANJUANITA OLSON is a 56-year-old F who currently lives in a prison, [facility], has a history of schizophrenia, and was admitted on 09/03/21 17:26 on a 201 voluntary commitment for worsening delusions and depression with SI. Chief Complaint "The paranoia and depression is pretty bad but I'm hanging in there, I'm using my prayer cards to help". Review of Systems Sleep Information Total Hours of Sleep: 5 Sleep Comments: pt requested Vistaril at 0402, pt reported it was ineffective. Meal Information Percent Meal Consumed - Breakfast: 100 Percent Meal Consumed - Lunch: 100 Percent Meal Consumed - Dinner: 100 Subjective Subjective Patient was seen & assessed and interval progress reviewed with treatment team nursing and social work. Sanjuanita continues to believe that she is and continues to have AH and paranoid delusions that she is being targeted. Last night she endorsed AH of [place] talking to her about burning or hurting her baby and today she describes a feeling that she will be "obliterated" and that "the Germans are after me because I'm a foreigner". She states she is able to challenge these beliefs and AH at times by talking to staff and using prayer and positive affirmations. She remains anxious and depressed endorsing intermittent SI due to "it's very frightening, I don't know why they attack me". She feels the zyprexa helps "clear my mind". She also likes the seroquel but is willing to try risperidone for a few days to see if this helps provide improved symptom relief. Physical Exam Psychiatric Orientation: alert and oriented x 3 Apperance: appropriately dressed and appropriately groomed Eye Contact: good eye contact Motor Behavior: steady gait and station and no abnormal motor movements Speech: normal rate/rhythm/volume of speech Affect: + flat affect Mood: + depressed mood and + anxious mood Thought Process: + circumstantial thought process Thought Content: + paranoid, + delusions and + ideas of reference Suicidal Thoughts: denies suicidal plan and denies suicidal intent (feels safe in the hospital, will let staff know if SI intensifies ); + reports suicidal thoughts (intermittent) Homicidal Thoughts: denies homicidal thoughts Hallucinations: + auditory hallucinations; no visual hallucinations Cognition: recent memory grossly intact, remote memory grossly intact, attention grossly intact and language grossly intact Estimated Intelligence: consistent with education level Insight: + impaired insight Judgement: + impaired judgement Vital Signs (Past 24 Hours) Last Vital Signs Temp 36.4 C 09/08/21 06:05 Pulse 77 09/08/21 06:06 Resp 16 09/08/21 06:05 BP 128/81 09/08/21 06:06 Pulse Ox 99 09/03/21 17:40 Results & Data ([facility]) Laboratory Results Laboratory Results - last 24 hr 09/07/21 09/07/21 09/07/21 12:31 17:18 21:04 POC Glucose 89 164 H 186 H 09/08/21 07:58 POC Glucose 104 H Current Inpatient Medications Current Inpatient Medications: Current Inpatient Medications Acetaminophen (Acetaminophen 325 Mg Tab) 325 mg PO QID PRN PRN Reason: pain Stop: 10/03/21 16:40 Al Hydrox/Mg Hydrox/Simethicone (Aluminum/Magnesium Susp 30 Ml Udc) 30 ml PO Q4H PRN PRN Reason: GI Upset Stop: 10/03/21 16:54 Aspirin (Aspirin 81 Mg Ectab) 81 mg PO QA [facility] Stop: 10/04/21 08:59 Last Admin: 09/08/21 08:24 Dose: 81 mg Documented by: Atorvastatin Calcium (Atorvastatin 40 Mg Tab) 80 mg PO HS [facility] Stop: 10/03/21 20:59 Last Admin: 09/07/21 21:18 Dose: 40 mg Documented by: Benztropine Mesylate (Benztropine Mesylate 1 Mg Tab) 1 mg PO HS [facility] Stop: 10/03/21 20:59 Last Admin: 09/07/21 21:06 Dose: 1 mg Documented by: Bismuth Subsalicylate (Bismuth Subsalicylate Liqd 236 Ml) 15 ml PO PRN PRN PRN Reason: Loose Stool Stop: 10/03/21 16:54 Dextrose (Dextrose 50% 50 Ml Syringe) 25 - 50 ml IV UD PRN; Protocol PRN Reason: Hypoglycemia Protocol Stop: 10/03/21 17:59 Ferrous Sulfate (Ferrous Sulfate 325 Mg Tab) 325 mg PO QAM [facility] Stop: 10/04/21 08:59 Last Admin: 09/08/21 08:24 Dose: 325 mg Documented by: Glucagon (Glucagon For Inj 1 Mg Vial) 1 mg IM UD PRN; Protocol PRN Reason: Hypoglycemia Protocol Stop: 10/03/21 17:59 Glucose (Glucose 40% Gel 15 Gm Tube) 15 - 30 gm PO UD PRN; Protocol PRN Reason: Hypoglycemia Protocol Stop: 10/03/21 17:59 Glucose (Glucose 10 Tabs/Tube) 4 - 8 tabs PO UD PRN; Protocol PRN Reason: Hypoglycemia Protocol Stop: 10/03/21 17:59 HCTZ/Losartan Potassium (Losartan/Hctz 50/12.5mg Tab) [facility] Stop: 10/04/21 08:59 Last Admin: 09/08/21 08:25 Dose: 1 tab Documented by: Hydroxyzine HCl (Hydroxyzine Hcl 25 Mg Tab) 25 mg PO TID PRN PRN Reason: Anxiety Stop: 10/03/21 16:40 Last Admin: 09/06/21 04:02 Dose: 25 mg Documented by: Insulin Aspart (Insulin Aspart Per Unit) 0 units SC ACHS [facility] Stop: 10/08/21 11:59 Insulin Detemir (Insulin Detemir) 115 units SC BID [facility] Stop: 10/06/21 20:59 Last Admin: 09/08/21 09:11 Dose: 115 units Documented by: Magnesium Hydroxide (Magnesium Hydroxide Susp 30 Ml Udc) 30 ml PO DAILY PRN PRN Reason: Constipation Stop: 10/03/21 16:54 Metformin HCl (Metformin Hcl Er 500 Mg Tabcr) 500 mg PO BID17 [facility] Stop: 10/03/21 17:59 Last Admin: 09/08/21 08:25 Dose: 500 mg Documented by: Methimazole (Methimazole 5 Mg Tablet) 10 mg PO QAM [facility] Stop: 10/04/21 08:59 Last Admin: 09/08/21 08:25 Dose: 10 mg Documented by: Miscellaneous (Carbohydrates For Hypoglycemia ) 15 - 30 gm PO UD PRN PRN Reason: Hypoglycemia Treatment Stop: 10/03/21 17:59 Miscellaneous Information (Pharmacy Glycemic Mgmt Consult) 1 ea N/A UD PRN PRN Reason: Consult Stop: 10/03/21 16:55 Olanzapine (Olanzapine 5 Mg Tablet) 5 mg PO TODAY@1500 [facility] Stop: 10/04/21 14:59 Last Admin: 09/07/21 15:07 Dose: 5 mg Documented by: Olanzapine (Olanzapine 10 Mg Tab) 30 mg PO HS [facility] Stop: 10/04/21 21:59 Last Admin: 09/07/21 21:19 Dose: 20 mg Documented by: Risperidone (Risperidone 0.5 Mg Tablet) 0.5 mg PO QAM [facility] Stop: 10/08/21 10:44 Risperidone (Risperidone 1 Mg Tablet) 1 mg PO HS [facility] Stop: 10/08/21 21:59 Sodium Chloride (Sodium Chloride 0.65% Na Soln 45 Ml ([place])) 1 - 2 sprays NA PRN PRN PRN Reason: Nasal Dryness/Congestion Stop: 10/03/21 16:54 Zolpidem Tartrate (Zolpidem Tartrate 10 Mg Tab) 10 mg PO HS [facility] Stop: 10/07/21 21:59 Last Admin: 09/07/21 21:07 Dose: 10 mg Documented by: Mental Health & Subst Abuse Tx Psychiatrist Name of Psychiatrist: Irma Lawson Psychiatrist's Date of Appointment with Psychiatrist: 10/07/21 Time of Appointment with Psychiatrist: 1:00 p.m. Psychiatric Appointment Comment: [id number] Therapist Name of Therapist: Irma Therapist's Date of Therapist Appointment: 09/14/21 Time of Therapist Appointment: 10:00 a.m. Therapy [facility]ment [facility] [id number] [facility] [place] [facility] Thermal Cutter Name of Hand I Thermal Cutter: [employer] [facility] - Shweta Castellano Phone Number for Hand I Thermal Cutter: [phone] Post Discharge Appointments Primary Care Physician Name Of Family Doctor: JAYJAY Reece Primary Care Date of Appointment with PCP: 11/03/21 Time of Appointment with PCP: 12:40 p.m. Provider Appointment Comment: [address] [place] [address] Contact Information Discharge Discharge Address: [address] [address] (1) Schizophrenia Schizophrenia type: paranoid schizophrenia Qualified Code(s): F20.0 - Paranoid schizophrenia
[2021-09-08] MEDS: risperiDONE 0.5 MG TABLET PO SCH (12:16)
[2021-09-08] MEDS: INSULIN ASPART PER UNIT SC SCH ×3 (12:50→20:13)
[2021-09-08] MEDS: OLANZapine 5 MG TABLET PO SCH (14:40)
[2021-09-08] MEDS: ATORVASTATIN 40 MG TAB PO SCH (20:51)
[2021-09-08] MEDS: BENZTROPINE MESYLATE 1 MG TAB PO SCH (20:51)
[2021-09-08] MEDS: OLANZapine 10 MG TAB PO SCH (20:52)
[2021-09-08] MEDS: risperiDONE 1 MG TABLET PO SCH (20:52)
[2021-09-08] MEDS: ZOLPIDEM TARTRATE 10 MG TAB PO SCH (20:53)
[2021-09-09] MEDS: INSULIN DETEMIR SC SCH ×2 (10:04→20:28)
[2021-09-09] MEDS: INSULIN ASPART PER UNIT SC SCH ×4 (10:05→20:29)
[2021-09-09] MEDS: ASPIRIN 81 MG ECTAB PO SCH (10:06)
[2021-09-09] MEDS: LOSARTAN/HCTZ 50/12.5MG TAB PO SCH (10:06)
[2021-09-09] MEDS: metFORMIN HCL ER 500 MG TABCR PO SCH ×2 (10:06→17:05)
[2021-09-09] MEDS: FERROUS SULFATE 325 MG TAB PO SCH (10:06)
[2021-09-09] MEDS: risperiDONE 0.5 MG TABLET PO SCH (10:07)
[2021-09-09] MEDS: methIMAzole 5 MG TABLET PO SCH ×2 (10:07→10:16)
--- NOTE | 2021-09-09 10:14 | Pharmacy Report ---
Pharmacy Glycemic Short Note 2 - Date of Service September 09, 2021 - Glycemic Short BSG Results (Last 24 hours): 09/08/21 09/08/21 09/08/21 12:28 17:12 19:53 POC Glucose 96 117 H 167 H 09/09/21 09:42 POC Glucose 132 H OUTPATIENT ANTIDIABETIC REGIMEN: * Levemir 140 units AM + 100 units HS * Jardiance 10mg Q AM * Glipizide 10mg BID * Victoza 1.8mg SQ daily * A1c = 8.8% 09/04/21 ASSESSMENT: 09/09 * Patient received total of 187 units of insulin yesterday, of which 115 units were basal insulin * Patient refused PM Levemir last evening (per nursing notes, she was not feeling well and she was thinking insulin was causing neuropathy; nursing staff provided education to patient about missed insulin doses) * Fasting BSG 132 mg/dL - anticipate blood sugars to rise throughout the next 24 hrs from skipped dose. Will continue with usual basal dose for this morning * No change to CF/CR at this time 09/07 * Type 2 diabetic admitted to [facility] * Patient is know to glycemic control service due to past admissions * She was started on a basal/bolus SQ regimen + metformin that has worked well for her in the past * Fasting BSG did dip to 80s overnight, FBS not yet available this AM. Will red uce basal insulin dose this AM as a precaution. * Post-prandial BSGs well controlled w/ current Novolog CF/CR - no change PLAN FOR INPATIENT GLYCEMIC CONTROL: * Hold outpatient oral diabetes medications * Basal insulin * Levemir 115 units Qam * Levemir 90 units Qpm * Bolus insulin * NovoLog per scale ACHS or Q6hrs while NPO * Goal Range: Low 110 mg/dL - High 140 mg/dL * Correction Factor: 10 mg/dL/unit * Nutritional / Prandial insulin per carb ratio of 1 unit per 3.5 grams CHO consumed PLAN FOR DISCHARGE: * A1c 8.8% - goal closer to 7% reasonable * Patient follows with [facility], recent appt 06/2021. Appears they may be considering switching her to U-500 in the future per notes. Would defer insulin adjustments/changes to be managed by them. Would recommend patient follows up with them post discharge
[2021-09-09] MEDS: OLANZapine 5 MG TABLET PO SCH (14:24)
--- NOTE | 2021-09-09 16:31 | Psychiatric Progress Note ---
Date of Service September 09, 2021 Impression / Recommendations Impression The patient is a 56 year old with a history of schizophrenia who was admitted for worsening delusions and depression with SI. Diagnostically consistent with acute exacerbation of schizophrenia and unspecified depression-adjustment disorder vs worsening mood in context of increasing psychotic symptoms vs MDD. The patient is deemed unstable and requires psychiatric hospitalization for diagnostic clarification, safety and stabilization, medication management and development of further coping skills. MNPR due to psychosis with paranoia, ideas of reference and actively responding to internal stimuli 09/09/20: Continues to present with psychosis and delusions of with ongoing auditory hallucinations which are threatening and causing worsening mood and anxiety with intermittent SI. She is tolerating initiation of risperidone with slightly increased engagement today. If risperidone is ineffective could consider trial of abilify or perphenazine or haldol. (1) Schizophrenia: (2) Depression: (3) Suicidal ideation: 09/09/21: Continue risperidone and olanzapine. Social work contacted her outpatient caseworker protective services to discuss option of increasing psych rehab to three times weekly to help with social engagement and reduce feelings of isolation. 09/08/21: Discontinue seroquel given hypertriglyceridemia and ongoing symptoms, starting risperidone 0.5 mg qAM & 1 mg qHS and continue olanzapine. 09/07/21: continue current medications. Awaiting call from outpatient psychiatrist. For now will continue with olanzapine and seroquel given extensive past medication trials with limited benefit including clozapine per chart review. Continuing to focus on coping skills and reality-testing and challenging negative auditory hallucinations. 09/06/21: adding ambien 10mg qhs prn as prior to admission medication and she continues to feel insomnia is a concern (verified in [facility] [facility]). Continue other medications. Left message with [facility] provider. Requested [facility] staff remove TV from her room per her request. 09/05/21: continue current medications, will attempt collateral from her outpt psychiatrist tomorrow. Discontinue fish oil as she refuses due to large pill size. 09/04/21: The patient was admitted to the [facility] ([facility] inpatient mental health unit) on q15 min checks (behavioral with suicide precautions) for safety. The patient will participate in group, recreational, and milieu therapies and will be offered additional individual and family sessions as clinically appropriate. -Continue prior to admission medications including: ambien 10mg qhs prn, olanzapine 5mg qafternoon & 30 mg qhs, seroquel 25mg qAM & 50 mg qhs -EKG to assess QTc given multiple prolonging agents and high dose olanzapine -Contact outpatient psychiatrist for further collateral Inventory Assets Strengths: outpt providers, family support, motivated to seek treatment Needs: additional outpt resources, increased opportunities for social interactions Risk Factors Assessment : Yes Do You Have Access To A Gun?: No Health Problems: Yes Mental Health Diagnoses: Yes Substance Use Disorders: No Previous Attempt: Yes Previous Attempt; Highly Lethal: Yes Family History of Suicide: No Previous Psychiatric Hospitalization: Yes Hopelessness: No Smoker: No Protective Factors Assessment Holiness Beliefs: Yes Employed: No Stable Relationships: Yes Supportive Family: Yes Good Rapport with Provider: Yes Interval History Identifying Information AMADO OLSON is a 56-year-old F who currently lives in a long term, [facility], has a history of schizophrenia, and was admitted on 09/03/21 17:26 on a 201 voluntary commitment for worsening delusions and depression with SI. Chief Complaint "I'm having some really frightening thoughts today". Review of Systems Sleep Information Total Hours of Sleep: 9 Sleep Comments: per night guard report Meal Information Percent Meal Consumed - Breakfast: 80 Percent Meal Consumed - Lunch: 95 Percent Meal Consumed - Dinner: 100 Subjective Subjective Patient was seen & assessed and interval progress reviewed with treatment team nursing and social work. She slept well last night but continues to experience AH stating "frightening things" such as telling her that her baby will be sacrificed. She refused her diabetes medication last night but accepted it this morning. She continues to believe she is carrying a baby at times. She denies any side effects from the risperidone though notes she did some reading a may be more interested in trying abilify if risperidone doesn't help after a few days. Physical Exam Psychiatric Orientation: alert and oriented x 3 Apperance: appropriately dressed and appropriately groomed Eye Contact: good eye contact Motor Behavior: steady gait and station and no abnormal motor movements Speech: normal rate/rhythm/volume of speech Affect: + constricted affect Mood: + depressed mood and + anxious mood Thought Process: + circumstantial thought process Thought Content: + paranoid, + delusions and + ideas of reference Suicidal Thoughts: denies suicidal plan and denies suicidal intent (feels safe in the hospital, will let staff know if SI intensifies ); + reports suicidal thoughts (intermittent) Homicidal Thoughts: denies homicidal thoughts Hallucinations: + auditory hallucinations; no visual hallucinations Cognition: recent memory grossly intact, remote memory grossly intact, attention grossly intact and language grossly intact Estimated Intelligence: consistent with education level Insight: + impaired insight Judgement: + impaired judgement Vital Signs (Past 24 Hours) Last Vital Signs Temp 36.9 C 09/09/21 06:13 Pulse 64 09/09/21 06:13 Resp 16 09/09/21 06:13 BP 130/82 09/09/21 06:13 Pulse Ox 99 09/03/21 17:40 Results & Data ([facility]) Laboratory Results Laboratory Results - last 24 hr 09/08/21 09/08/21 09/09/21 17:12 19:53 09:42 POC Glucose 117 H 167 H 132 H 09/09/21 12:26 POC Glucose 184 H Current Inpatient Medications Current Inpatient Medications: Current Inpatient Medications Acetaminophen (Acetaminophen 325 Mg Tab) 325 mg PO QID PRN PRN Reason: pain Stop: 10/03/21 16:40 Al Hydrox/Mg Hydrox/Simethicone (Aluminum/Magnesium Susp 30 Ml Udc) 30 ml PO Q4H PRN PRN Reason: GI Upset Stop: 10/03/21 16:54 Aspirin (Aspirin 81 Mg Ectab) [facility] [place] [facility] [place] Stop: 10/04/21 08:59 Last Admin: 09/09/21 10:06 Dose: 81 mg Documented by: Atorvastatin Calcium (Atorvastatin 40 Mg Tab) 80 mg PO [facility] Stop: 10/03/21 20:59 Last Admin: 09/08/21 20:51 Dose: 40 mg Documented by: Benztropine Mesylate (Benztropine Mesylate 1 Mg Tab) 1 mg PO HS [facility] Stop: 10/03/21 20:59 Last Admin: 09/08/21 20:51 Dose: 1 mg Documented by: Bismuth Subsalicylate (Bismuth Subsalicylate Liqd 236 Ml) 15 ml PO PRN PRN PRN Reason: Loose Stool Stop: 10/03/21 16:54 Dextrose (Dextrose 50% 50 Ml Syringe) 25 - 50 ml IV UD PRN; Protocol PRN Reason: Hypoglycemia Protocol Stop: 10/03/21 17:59 Ferrous Sulfate (Ferrous Sulfate 325 Mg Tab) 325 mg PO QAM [facility] Stop: 10/04/21 08:59 Last Admin: 09/09/21 10:06 Dose: 325 mg Documented by: Glucagon (Glucagon For Inj 1 Mg Vial) 1 mg IM UD PRN; Protocol PRN Reason: Hypoglycemia Protocol Stop: 10/03/21 17:59 Glucose (Glucose 40% Gel 15 Gm Tube) 15 - 30 gm PO UD PRN; Protocol PRN Reason: Hypoglycemia Protocol Stop: 10/03/21 17:59 Glucose (Glucose 10 Tabs/Tube) 4 - 8 tabs PO UD PRN; Protocol PRN Reason: Hypoglycemia Protocol Stop: 10/03/21 17:59 HCTZ/Losartan Potassium (Losartan/Hctz 50/12.5mg Tab) 1 tab PO QAM [facility] Stop: 10/04/21 08:59 Last Admin: 09/09/21 10:06 Dose: 1 tab Documented by: Hydroxyzine HCl (Hydroxyzine Hcl 25 Mg Tab) 25 mg PO TID PRN PRN Reason: Anxiety Stop: 10/03/21 16:40 Last Admin: 09/06/21 04:02 Dose: 25 mg Documented by: Insulin Aspart (Insulin Aspart Per Unit) 0 units SC ACHS [facility] Stop: 10/08/21 11:59 Last Admin: 09/09/21 12:49 Dose: 24 units Documented by: Insulin Detemir (Insulin Detemir) 115 units SC DAILY [facility] Stop: 10/09/21 08:59 Last Admin: 09/09/21 10:04 Dose: 115 units Documented by: Insulin Detemir (Insulin Detemir) 90 units SC QPM [facility] Stop: 10/08/21 20:59 Last Admin: 09/08/21 21:00 Dose: Not Given Documented by: Magnesium Hydroxide (Magnesium Hydroxide Susp 30 Ml Udc) 30 ml PO DAILY PRN PRN Reason: Constipation Stop: 10/03/21 16:54 Metformin HCl (Metformin Hcl Er 500 Mg Tabcr) 500 mg PO BID17 [facility] Stop: 10/03/21 17:59 Last Admin: 09/09/21 10:06 Dose: 500 mg Documented by: Methimazole (Methimazole 5 Mg Tablet) 10 mg PO QAM [facility] Stop: 10/04/21 08:59 Last Admin: 09/09/21 10:16 Dose: 5 mg Documented by: Miscellaneous (Carbohydrates For Hypoglycemia ) 15 - 30 gm PO UD PRN PRN Reason: Hypoglycemia Treatment Stop: 10/03/21 17:59 Miscellaneous Information (Pharmacy Glycemic Mgmt Consult) 1 ea N/A UD PRN PRN Reason: Consult Stop: 10/03/21 16:55 Olanzapine (Olanzapine 5 Mg Tablet) 5 mg PO TODAY@1500 [facility] Stop: 10/04/21 14:59 Last Admin: 09/09/21 14:24 Dose: 5 mg Documented by: Olanzapine (Olanzapine 10 Mg Tab) 30 mg PO HS [facility] Stop: 10/04/21 21:59 Last Admin: 09/08/21 20:52 Dose: 20 mg Documented by: Risperidone (Risperidone 0.5 Mg Tablet) 0.[facility] [place] [facility] [place] Stop: 10/08/21 10:44 Last Admin: 09/09/21 10:07 Dose: 0.5 mg Documented by: Risperidone (Risperidone 1 Mg Tablet) 1 mg PO [facility] Stop: 10/08/21 21:59 Last Admin: 09/08/21 20:52 Dose: 1 mg Documented by: Sodium Chloride (Sodium Chloride 0.65% Na Soln 45 Ml ([place])) 1 - 2 sprays NA PRN PRN PRN Reason: Nasal Dryness/Congestion Stop: 10/03/21 16:54 Zolpidem Tartrate (Zolpidem Tartrate 10 Mg Tab) 10 mg PO [facility] Stop: 10/07/21 21:59 Last Admin: 09/08/21 20:53 Dose: 10 mg Documented by: Mental Health & Subst Abuse Tx Psychiatrist Name of Psychiatrist: Irma Lawson Psychiatrist's Date of Appointment with Psychiatrist: 10/07/21 Time of Appointment with Psychiatrist: 1:00 p.m. Psychiatric Appointment Comment: [id number] Therapist Name of Therapist: Irma Therapist's Date of Therapist Appointment: 09/14/21 Time of Therapist Appointment: 10:00 a.m. Therapy Appointment Comment: [id number] [facility], LIVIA Stallworth Manager Basketball Name of Manager Basketball: [facility] - Shweta Castellano Phone Number for Manager Basketball: [phone] Date of Appointment with Manager Basketball: 09/16/21 Time of Appointment with Manager Basketball: 10am Post Discharge Appointments Primary Care Physician Name Of Family Doctor: JAYJAY Reece [facility] Date of Appointment with PCP: 11/03/21 Time of Appointment with PCP: 12:40 p.m. Provider Appointment Comment: [facility] Contact Information Discharge Discharge Address: [address] [address] (1) Schizophrenia Schizophrenia type: paranoid schizophrenia Qualified Code(s): F20.0 - Paranoid schizophrenia
[2021-09-09] MEDS: ATORVASTATIN 40 MG TAB PO SCH (20:29)
[2021-09-09] MEDS: BENZTROPINE MESYLATE 1 MG TAB PO SCH (20:29)
[2021-09-09] MEDS: OLANZapine 10 MG TAB PO SCH (20:30)
[2021-09-09] MEDS: ZOLPIDEM TARTRATE 10 MG TAB PO SCH (20:31)
[2021-09-09] MEDS: risperiDONE 1 MG TABLET PO SCH (20:31)
[2021-09-10] MEDS: hydrOXYzine HCl 25 MG TAB PO PRN ×2 (01:50→12:22)
[2021-09-10] MEDS: INSULIN DETEMIR SC SCH ×2 (08:55→20:29)
[2021-09-10] MEDS: INSULIN ASPART PER UNIT SC SCH ×4 (08:55→20:27)
[2021-09-10] MEDS: risperiDONE 0.5 MG TABLET PO SCH (08:59)
[2021-09-10] MEDS: FERROUS SULFATE 325 MG TAB PO SCH (08:59)
[2021-09-10] MEDS: methIMAzole 5 MG TABLET PO SCH (08:59)
[2021-09-10] MEDS: LOSARTAN/HCTZ 50/12.5MG TAB PO SCH (08:59)
[2021-09-10] MEDS: metFORMIN HCL ER 500 MG TABCR PO SCH ×2 (08:59→17:14)
[2021-09-10] MEDS: ASPIRIN 81 MG ECTAB PO SCH (08:59)
--- NOTE | 2021-09-10 13:00 | Pharmacy Report ---
Pharmacy Glycemic Short Note 2 - Date of Service September 10, 2021 - Glycemic Short BSG Results (Last 24 hours): 09/09/21 09/09/21 09/10/21 17:04 20:15 08:33 POC Glucose 131 H 167 H 102 H 09/10/21 12:32 POC Glucose 88 OUTPATIENT ANTIDIABETIC REGIMEN: * Levemir 140 units AM + 100 units HS * Jardiance 10mg Q AM * Metformin 500 mg PO BIDM * Glipizide 10mg BID * Victoza 1.8mg SQ daily * A1c = 8.8% 09/04/21 ASSESSMENT: 09/10 * BSGs remain reasonably well-controlled, ranging 131-184 mg/dL yesterday * Fasting BSG of 102 this morning, and follow-up lunch BSG of 88 mg/dL * Given lower BSGs today, will plan to scale back Levemir this evening 09/09 * Patient received total of 187 units of insulin yesterday, of which 115 units were basal insulin * Patient refused PM Levemir last evening (per nursing notes, she was not feeling well and she was thinking insulin was causing neuropathy; nursing staff provided education to patient about missed insulin doses) * Fasting BSG 132 mg/dL - anticipate blood sugars to rise throughout the next 24 hrs from skipped dose. Will continue with usual basal dose for this morning * No change to CF/CR at this time 09/07 * Type 2 diabetic admitted to [facility] * Patient is know to glycemic control service due to past admissions * She was started on a basal/bolus SQ regimen + metformin that has worked well for her in the past * Fasting BSG did dip to 80s overnight, FBS not yet available this AM. Will reduce basal insulin dose this AM as a precaution. * Post-prandial BSGs well controlled w/ current Novolog CF/CR - no change PLAN FOR INPATIENT GLYCEMIC CONTROL: * Metformin ER 500 mg PO BIDM * Basal insulin - ~20% reduction in PM dose of basal * Levemir 115 units Qam * Levemir 75 units Qpm * Bolus insulin * NovoLog per scale ACHS or Q6hrs while NPO * Goal Range: Low 110 mg/dL - High 140 mg/dL * Correction Factor: 10 mg/dL/unit * Nutritional / Prandial insulin per carb ratio of 1 unit per 3.5 grams CHO consumed PLAN FOR DISCHARGE: * A1c 8.8% - goal closer to 7% reasonable * Patient follows with [facility], recent appt 06/2021. Appears they may be considering switching her to U-500 in the future per notes. Would defer insulin adjustments/changes to be managed by them. Would recommend patient follows up with them post discharge
--- NOTE | 2021-09-10 13:54 | Psychiatric Progress Note ---
Date of Service September 10, 2021 Impression / Recommendations Impression The patient is a 56 year old with a history of schizophrenia who was admitted for worsening delusions and depression with SI. Diagnostically consistent with acute exacerbation of schizophrenia and unspecified depression-adjustment disorder vs worsening mood in context of increasing psychotic symptoms vs MDD. The patient is deemed unstable and requires psychiatric hospitalization for diagnostic clarification, safety and stabilization, medication management and development of further coping skills. MNPR due to psychosis with paranoia, ideas of reference and actively responding to internal stimuli 09/10/20: Continues to present with psychosis and delusions of with ongoing auditory hallucinations which are threatening and causing worsening mood and anxiety with intermittent SI. Some increased paranoia today which she has fluctuating insight about and can do some reality-testing but also unable to be reassured about her bed being safe. She is tolerating risperidone augmentation but is willing to try another dose. Will give it one more day and if no significant improvement then consider alterative option such as trial of abilify or perphenazine or haldol. (1) Schizophrenia: (2) Depression: (3) Suicidal ideation: 09/10/21: Continue medications, she's reluctant to make any medication dose increases. She can go to psych rehab three times a week. 09/09/21: Continue risperidone and olanzapine. Social work contacted her outpatient immigration case worker to discuss option of increasing psych rehab to three times weekly to help with social engagement and reduce feelings of isolation. 09/08/21: Discontinue seroquel given hypertriglyceridemia and ongoing symptoms, starting risperidone 0.5 mg qAM & 1 mg qHS and continue olanzapine. 09/07/21: continue current medications. Awaiting call from outpatient psychiatrist. For now will continue with olanzapine and seroquel given extensive past medication trials with limited benefit including clozapine per chart review. Continuing to focus on coping skills and reality-testing and challenging negative auditory hallucinations. 09/06/21: adding ambien 10mg qhs prn as prior to admission medication and she continues to feel insomnia is a concern (verified in [facility]). Continue other medications. Left message with [facility] provider. Requested [facility] staff remove TV from her room per her request. 09/05/21: continue current medications, will attempt collateral from her outpt psychiatrist tomorrow. Discontinue fish oil as she refuses due to large pill size. 09/04/21: The patient was admitted to the [facility] ([facility]) on q15 min checks (behavioral with suicide precautions) for safety. The patient will participate in group, recreational, and milieu therapies and will be off ered additional individual and family sessions as clinically appropriate. -Continue prior to admission medications including: ambien 10mg qhs prn, olanzapine 5mg qafternoon & 30 mg qhs, seroquel 25mg qAM & 50 mg qhs -EKG to assess QTc given multiple prolonging agents and high dose olanzapine -Contact outpatient psychiatrist for further collateral Inventory Assets Strengths: outpt providers, family support, motivated to seek treatment Needs: additional outpt resources, increased opportunities for social interactions Risk Factors Assessment : Yes Do You Have Access To A Gun?: No Health Problems: Yes Mental Health Diagnoses: Yes Substance Use Disorders: No Previous Attempt: Yes Previous Attempt; Highly Lethal: Yes Family History of Suicide: No Previous Psychiatric Hospitalization: Yes Hopelessness: No Smoker: No Protective Factors Assessment Restorationism Beliefs: Yes Employed: No Stable Relationships: Yes Supportive Family: Yes Good Rapport with Provider: Yes Interval History Identifying Information AMADO OLSON is a 56-year-old F who currently lives in a senior living, [facility], has a history of schizophrenia, and was admitted on 09/03/21 17:26 on a 201 voluntary commitment for worsening delusions and depression with SI. Chief Complaint "I'm feeling quite paranoid today, I'm trying to use my coping skills". Review of Systems Sleep Information Total Hours of Sleep: 4 Sleep Comments: pt given ambien per rn. pt on q-15 minute checks Meal Information Percent Meal Consumed - Breakfast: 100 Percent Meal Consumed - Lunch: 100 Percent Meal Consumed - Dinner: 100 Subjective Subjective Patient was seen & assessed and interval progress reviewed with treatment team nursing and social work. More difficulty with sleep last night. today reports ongoing AH about people wanting to harm her baby. She also endorses paranoia about her room, requesting to switch rooms because "something doesn't feel right with that room". She agrees to switch beds within her room and feels safe with that change. She does not want to increase the dose of risperidone. Remains eager to consider abilify, discussed that she and Dr. John could consider this if risperidone is felt to be ineffective. Physical Exam Psychiatric Orientation: alert and oriented x 3 Apperance: appropriately dressed and appropriately groomed Eye Contact: good eye contact Motor Behavior: steady gait and station and no abnormal motor movements Speech: normal rate/rhythm/volume of speech Affect: + flat affect Mood: + depressed mood and + anxious mood Thought Process: + circumstantial thought process Thought Content: + paranoid, + delusions and + ideas of reference Suicidal Thoughts: denies suicidal plan and denies suicidal intent (feels safe in the hospital, will let staff know if SI intensifies ); + reports suicidal thoughts (intermittent) Homicidal Thoughts: denies homicidal thoughts Hallucinations: + auditory hallucinations; no visual hallucinations Cognition: recent memory grossly intact, remote memory grossly intact, attention grossly intact and language grossly intact Estimated Intelligence: consistent with education level Insight: + impaired insight Judgement: + impaired judgement Vital Signs (Past 24 Hours) Last Vital Signs Temp 36.7 C 09/10/21 06:34 Pulse 78 09/10/21 06:35 Resp 18 09/10/21 06:34 BP 144/92 H 09/10/21 06:35 Pulse Ox 99 09/03/21 17:40 Results & Data ([facility]) Laboratory Results Laboratory Results - last 24 hr 09/09/21 09/09/21 09/10/21 17:04 20:15 08:33 POC Glucose 131 H 167 H 102 H 09/10/21 12:32 POC Glucose 88 Current Inpatient Medications Current Inpatient Medications: Current Inpatient Medications Acetaminophen (Acetaminophen 325 Mg Tab) 325 mg PO QID PRN PRN Reason: pain Stop: 10/03/21 16:40 Al Hydrox/Mg Hydrox/Simethicone (Aluminum/Magnesium Susp 30 Ml Udc) 30 ml PO Q4H PRN PRN Reason: GI Upset Stop: 10/03/21 16:54 Aspirin (Aspirin 81 Mg Ectab) 81 mg PO QA [facility] Stop: 10/04/21 08:59 Last Admin: 09/10/21 08:59 Dose: 81 mg Documented by: Atorvastatin Calcium (Atorvastatin 40 Mg Tab) 80 mg PO [facility] Stop: 10/03/21 20:59 Last Admin: 09/09/21 20:29 Dose: 40 mg Documented by: Benztropine Mesylate (Benztropine Mesylate 1 Mg Tab) 1 mg PO [facility] Stop: 10/03/21 20:59 Last Admin: 09/09/21 20:29 Dose: 1 mg Documented by: Bismuth Subsalicylate (Bismuth Subsalicylate Liqd 236 Ml) 15 ml PO PRN PRN PRN Reason: Loose Stool Stop: 10/03/21 16:54 Dextrose (Dextrose 50% 50 Ml Syringe) 25 - 50 ml IV UD PRN; Protocol PRN Reason: Hypoglycemia Protocol Stop: 10/03/21 17:59 Ferrous Sulfate (Ferrous Sulfate 325 Mg Tab) 325 mg PO QAM [facility] Stop: 10/04/21 08:59 Last Admin: 09/10/21 08:59 Dose: 325 mg Documented by: Glucagon (Glucagon For Inj 1 Mg Vial) 1 mg IM UD PRN; Protocol PRN Reason: Hypoglycemia Protocol Stop: 10/03/21 17:59 Glucose (Glucose 40% Gel 15 Gm Tube) 15 - 30 gm PO UD PRN; Protocol PRN Reason: Hypoglycemia Protocol Stop: 10/03/21 17:59 Glucose (Glucose 10 Tabs/Tube) 4 - 8 tabs PO UD PRN; Protocol PRN Reason: Hypoglycemia Protocol Stop: 10/03/21 17:59 HCTZ/Losartan Potassium (Losartan/Hctz 50/12.5mg Tab) 1 tab PO QAM [facility] Stop: 10/04/21 08:59 Last Admin: 09/10/21 08:59 Dose: 1 tab Documented by: Hydroxyzine HCl (Hydroxyzine Hcl 25 Mg Tab) 25 mg PO TID PRN PRN Reason: Anxiety Stop: 10/03/21 16:40 Last Admin: 09/10/21 12:22 Dose: 25 mg Documented by: Insulin Aspart (Insulin Aspart Per Unit) 0 units SC ACHS [facility] Stop: 10/08/21 11:59 Last Admin: 09/10/21 12:51 Dose: 19 units Documented by: Insulin Detemir (Insulin Detemir) 115 units SC DAILY [facility] Stop: 10/09/21 08:59 Last Admin: 09/10/21 08:55 Dose: 115 units Documented by: Insulin Detemir (Insulin Detemir) 75 units SC QPM [facility] Stop: 10/08/21 20:59 Magnesium Hydroxide (Magnesium Hydroxide Susp 30 Ml Udc) 30 ml PO DAILY PRN PRN Reason: Constipation Stop: 10/03/21 16:54 Metformin HCl (Metformin Hcl Er 500 Mg Tabcr) 500 mg PO BID17 [facility] Stop: 10/03/21 17:59 Last Admin: 09/10/21 08:59 Dose: 500 mg Documented by: Methimazole (Methimazole 5 Mg Tablet) 10 mg PO QAM [facility] Stop: 10/04/21 08:59 Last Admin: 09/10/21 08:59 Dose: 5 mg Documented by: Miscellaneous (Carbohydrates For Hypoglycemia ) 15 - 30 gm PO UD PRN PRN Reason: Hypoglycemia Treatment Stop: 10/03/21 17:59 Miscellaneous Information (Pharmacy Glycemic Mgmt Consult) 1 ea N/A UD PRN PRN Reason: Consult Stop: 10/03/21 16:55 Olanzapine (Olanzapine 5 Mg Tablet) 5 mg PO TODAY@1500 [facility] Stop: 10/04/21 14:59 Last Admin: 09/09/21 14:24 Dose: 5 mg Documented by: Olanzapine (Olanzapine 10 Mg Tab) 30 mg PO HS [facility] Stop: 10/04/21 21:59 Last Admin: 09/09/21 20:30 Dose: 30 mg Documented by: Risperidone (Risperidone 0.5 Mg Tablet) 0.5 mg PO QAM [facility] Stop: 10/08/21 10:44 Last Admin: 09/10/21 08:59 Dose: 0.5 mg Documented by: Risperidone (Risperidone 1 Mg Tablet) 1 mg PO HS [facility] Stop: 10/08/21 21:59 Last Admin: 09/09/21 20:31 Dose: 1 mg Documented by: Sodium Chloride (Sodium Chloride 0.65% Na Soln 45 Ml ([place])) 1 - 2 sprays NA PRN PRN PRN Reason: Nasal Dryness/Congestion Stop: 10/03/21 16:54 Zolpidem Tartrate (Zolpidem Tartrate 10 Mg Tab) 10 mg PO HS [facility] Stop: 10/07/21 21:59 Last Admin: 09/09/21 20:31 Dose: 10 mg Documented by: Mental Health & Subst Abuse Tx Psychiatrist Name of Psychiatrist: Irma Lawson Psychiatrist's Date of Appointment with Psychiatrist: 10/07/21 Time of Appointment with Psychiatrist: 1:00 p.m. Psychiatric Appointment Comment: [id number], [place] Therapist Name of Therapist: Irma Therapist's Date of Therapist Appointment: 09/14/21 Time of Therapist Appointment: 10:00 a.m. Therapy Appointment Comment: [id number] [facility] LIVIA Bradley Superintendent Operating Name of Superintendent Operating: [employer] [facility] - Shweta Castellano Phone Number for Superintendent Operating: [phone] Date of Appointment with Superintendent Operating: 09/16/21 Time of Appointment with Superintendent Operating: 10am Post Discharge Appointments Primary Care Physician Name Of Family Doctor: JAYJAY Reece Primary Care Date of Appointment with PCP: 11/03/21 Time of Appointment with PCP: 12:40 p.m. Provider Appointment Comment: [phone] [facility] Contact Information Discharge Discharge Address: [address] [address] (1) Schizophrenia Schizophrenia type: paranoid schizophrenia Qualified Code(s): F20.0 - Paranoid schizophrenia
[2021-09-10] MEDS: OLANZapine 5 MG TABLET PO SCH (14:18)
[2021-09-10] MEDS: OLANZapine 10 MG TAB PO SCH (20:30)
[2021-09-10] MEDS: ATORVASTATIN 40 MG TAB PO SCH (20:30)
[2021-09-10] MEDS: risperiDONE 1 MG TABLET PO SCH (20:30)
[2021-09-10] MEDS: ZOLPIDEM TARTRATE 10 MG TAB PO SCH (20:30)
[2021-09-10] MEDS: BENZTROPINE MESYLATE 1 MG TAB PO SCH (20:31)
[2021-09-11] MEDS: ZOLPIDEM TARTRATE 10 MG TAB PO SCH ×2 (01:46→20:42)
[2021-09-11] MEDS: ASPIRIN 81 MG ECTAB PO SCH (08:47)
[2021-09-11] MEDS: LOSARTAN/HCTZ 50/12.5MG TAB PO SCH (08:47)
[2021-09-11] MEDS: FERROUS SULFATE 325 MG TAB PO SCH (08:47)
[2021-09-11] MEDS: metFORMIN HCL ER 500 MG TABCR PO SCH ×2 (08:47→17:05)
[2021-09-11] MEDS: risperiDONE 0.5 MG TABLET PO SCH (08:48)
[2021-09-11] MEDS: methIMAzole 5 MG TABLET PO SCH (08:52)
[2021-09-11] MEDS: INSULIN ASPART PER UNIT SC SCH ×4 (09:05→20:24)
[2021-09-11] MEDS: INSULIN DETEMIR SC SCH ×2 (09:06→20:38)
--- NOTE | 2021-09-11 10:23 | Psychiatric Progress Note ---
Date of Service September 11, 2021 Impression / Recommendations Impression The patient is a 56 year old with a history of schizophrenia who was admitted for worsening delusions and depression with SI. Diagnostically consistent with acute exacerbation of schizophrenia and unspecified depression-adjustment disorder vs worsening mood in context of increasing psychotic symptoms vs MDD. The patient is deemed unstable and requires psychiatric hospitalization for diagnostic clarification, safety and stabilization, medication management and development of further coping skills. MNPR due to psychosis with paranoia, ideas of reference and was actively responding to internal stimuli 09/11/20: improving today but no longer willing to continue Risperdal (1) Schizophrenia: (2) Depression: (3) Suicidal ideation: 09/11/20: Risks/benefits/alternatives were reviewed re: antipsychotics for mood and/or psychosis. Discussion included but was not limited to metabolic side effects, risks of TD and suicidal thoughts. There were no abnormal motor movements at baseline. Will taper Risperdal augmentation in favor of a trial of Abilify. 09/10/21: Continue medications, she's reluctant to make any medication dose increases. She can go to psych rehab three times a week. 09/09/21: Continue risperidone and olanzapine. Social work contacted her outpatient upper caser to discuss option of increasing psych rehab to three times weekly to help with social engagement and reduce feelings of isolation. 09/08/21: Discontinue seroquel given hypertriglyceridemia and ongoing symptoms, starting risperidone 0.5 mg qAM & 1 mg qHS and continue olanzapine. 09/07/21: continue current medications. Awaiting call from outpatient psychiatrist. For now will continue with olanzapine and seroquel given extensive past medication trials with limited benefit including clozapine per chart review. Continuing to focus on coping skills and reality-testing and challenging negative auditory hallucinations. 09/06/21: adding ambien 10mg qhs prn as prior to admission medication and she continues to feel insomnia is a concern (verified in [facility]). [facility] other medications[facility] Requested [facility] staff remove TV from her room per her request. 09/05/21: continue current medications, will attempt collateral from her outpt psychiatrist tomorrow. Discontinue fish oil as she refuses due to large pill size. 09/04/21: The patient was admitted to the [facility] ([facility] mental health unit) on q15 min checks (behavioral with suicide precautions) for safety. The patient will participate in group, recreational, and milieu therapies and will be offered additional individual and family sessions as clinically appropriate. -Continue prior to admission medications including: ambien 10mg qhs prn, olanzapine 5mg qafternoon & 30 mg qhs, seroquel 25mg qAM & 50 mg qhs -EKG to assess QTc given multiple prolonging agents and high dose olanzapine -Contact outpatient psychiatrist for further collateral Inventory Assets Strengths: outpt providers, family support, motivated to seek treatment Needs: additional outpt resources, increased opportunities for social interactions Risk Factors Assessment : Yes Do You Have Access To A Gun?: No Health Problems: Yes Mental Health Diagnoses: Yes Substance Use Disorders: No Previous Attempt: Yes Previous Attempt; Highly Lethal: Yes Family History of Suicide: No Previous Psychiatric Hospitalization: Yes Hopelessness: No Smoker: No Protective Factors Assessment Worship Beliefs: Yes Employed: No Stable Relationships: Yes Supportive Family: Yes Good Rapport with Provider: Yes Interval History Identifying Information AMADO OLSON is a 56-year-old F who currently lives in a fdc, [facility], has a history of schizophrenia, and was admitted on 09/03/21 17:26 on a 201 voluntary commitment for worsening delusions and depression with SI. Chief Complaint "I know what's a delusion now, my stomach is fine and I know I didn't cause Lady Alvarado's but I feel nervous, still paranoid". Review of Systems Sleep Information Total Hours of Sleep: 7.75 Sleep Comments: Patient maintained on 15 minute checks Meal Information Percent Meal Consumed - Breakfast: 100 Percent Meal Consumed - Lunch: 100 Percent Meal Consumed - Dinner: 100 Subjective Subjective Patient was seen & assessed and interval progress reviewed with nursing and social work. Patient c/o left upper arm pain this am with difficulty raising hand over head. Denies neck pain. Will try Tylenol. Declines X ray as believes she slept on it wrong. She does have to sleep in the bed nearest the door in room as otherwise feels paranoid by the window. Wants to discontinue Risperdal. Physical Exam Psychiatric Orientation: alert and oriented x 3 Apperance: appropriately dressed and appropriately groomed Eye Contact: good eye contact Motor Behavior: steady gait and station and no abnormal motor movements Speech: normal rate/rhythm/volume of speech Affect: + constricted affect Mood: + anxious mood Thought Process: + circumstantial thought process Thought Content: + paranoid and + delusions Suicidal Thoughts: denies suicidal plan and denies suicidal intent Homicidal Thoughts: denies homicidal thoughts Hallucinations: no auditory hallucinations and no visual hallucinations Cognition: attention grossly intact and language grossly intact Insight: + limited insight Judgement: + limited judgement Vital Signs (Past 24 Hours) Last Vital Signs Temp 36.6 C 09/11/21 06:39 Pulse 77 09/11/21 06:41 Resp 18 09/11/21 06:39 BP 135/87 09/11/21 06:41 Pulse Ox 99 09/03/21 17:40 Results & Data (U) Laboratory Results Laboratory Results - last 24 hr 09/10/21 09/10/21 09/10/21 12:32 16:48 19:56 POC Glucose 88 121 H 129 H 09/11/21 08:42 POC Glucose 126 H Current Inpatient Medications Current Inpatient Medications: Current Inpatient Medications Acetaminophen (Acetaminophen 325 Mg Tab) 325 mg PO QID PRN PRN Reason: pain Stop: 10/03/21 16:40 Al Hydrox/Mg Hydrox/Simethicone (Aluminum/Magnesium Susp 30 Ml Udc) 30 ml PO Q4H PRN PRN Reason: GI Upset Stop: 10/03/21 16:54 Aspirin (Aspirin 81 Mg Ectab) 81 mg PO [facility] Stop: 10/04/21 08:59 Last Admin: 09/11/21 08:47 Dose: 81 mg Documented by: Atorvastatin Calcium (Atorvastatin 40 Mg Tab) 80 mg PO [facility] Stop: 10/03/21 20:59 Last Admin: 09/10/21 20:30 Dose: 40 mg Documented by: Benztropine Mesylate (Benztropine Mesylate 1 Mg Tab) 1 mg PO HS [facility] Stop: 10/03/21 20:59 Last Admin: 09/10/21 20:31 Dose: 1 mg Documented by: Bismuth Subsalicylate (Bismuth Subsalicylate Liqd 236 Ml) 15 ml PO PRN PRN PRN Reason: Loose Stool Stop: 10/03/21 16:54 Dextrose (Dextrose 50% 50 Ml Syringe) 25 - 50 ml IV UD PRN; Protocol PRN Reason: Hypoglycemia Protocol Stop: 10/03/21 17:59 Ferrous Sulfate (Ferrous Sulfate 325 Mg Tab) 325 mg PO QAM [facility] Stop: 10/04/21 08:59 Last Admin: 09/11/21 08:47 Dose: 325 mg Documented by: Glucagon (Glucagon For Inj 1 Mg Vial) 1 mg IM UD PRN; Protocol PRN Reason: Hypoglycemia Protocol Stop: 10/03/21 17:59 Glucose (Glucose 40% Gel 15 Gm Tube) 15 - 30 gm PO UD PRN; Protocol PRN Reason: Hypoglycemia Protocol Stop: 10/03/21 17:59 Glucose (Glucose 10 Tabs/Tube) 4 - 8 tabs PO UD PRN; Protocol PRN Reason: Hypoglycemia Protocol Stop: 10/03/21 17:59 HCTZ/Losartan Potassium (Losartan/Hctz 50/12.5mg Tab) [facility] Stop: 10/04/21 08:59 Last Admin: 09/11/21 08:47 Dose: 1 tab Documented by: Hydroxyzine HCl (Hydroxyzine Hcl 25 Mg Tab) 25 mg PO TID PRN PRN Reason: Anxiety Stop: 10/03/21 16:40 Last Admin: 09/10/21 12:22 Dose: 25 mg Documented by: Insulin Aspart (Insulin Aspart Per Unit) 0 units SC ACHS [facility] Stop: 10/08/21 11:59 Last Admin: 09/11/21 09:05 Dose: 16 units Documented by: Insulin Detemir (Insulin Detemir) 115 units SC DAILY [facility] Stop: 10/09/21 08:59 Last Admin: 09/11/21 09:06 Dose: 115 units Documented by: Insulin Detemir (Insulin Detemir) 75 units SC QPM [facility] Stop: 10/08/21 20:59 Last Admin: 09/10/21 20:29 Dose: 75 units Documented by: Magnesium Hydroxide (Magnesium Hydroxide Susp 30 Ml Udc) 30 ml PO DAILY PRN PRN Reason: Constipation Stop: 10/03/21 16:54 Metformin HCl (Metformin Hcl Er 500 Mg Tabcr) 500 mg PO BID17 [facility] Stop: 10/03/21 17:59 Last Admin: 09/11/21 08:47 Dose: 500 mg Documented by: Methimazole (Methimazole 5 Mg Tablet) 10 mg PO QAM [facility] Stop: 10/04/21 08:59 Last Admin: 09/11/21 08:52 Dose: 5 mg Documented by: Miscellaneous (Carbohydrates For Hypoglycemia ) 15 - 30 gm PO UD PRN PRN Reason: Hypoglycemia Treatment Stop: 10/03/21 17:59 Miscellaneous Information (Pharmacy Glycemic Mgmt Consult) 1 ea N/A UD PRN PRN Reason: Consult Stop: 10/03/21 16:55 Olanzapine (Olanzapine 5 Mg Tablet) 5 mg PO TODAY@1500 [facility] Stop: 10/04/21 14:59 Last Admin: 09/10/21 14:18 Dose: 5 mg Documented by: Olanzapine (Olanzapine 10 Mg Tab) 30 mg PO HS [facility] Stop: 10/04/21 21:59 Last Admin: 09/10/21 20:30 Dose: 30 mg Documented by: Risperidone (Risperidone 0.5 Mg Tablet) 0.5 mg PO QAM [facility] Stop: 10/08/21 10:44 Last Admin: 09/11/21 08:48 Dose: 0.5 mg Documented by: Risperidone (Risperidone 1 Mg Tablet) 1 mg PO HS [facility] Stop: 10/08/21 21:59 Last Admin: 09/10/21 20:30 Dose: 1 mg Documented by: Sodium Chloride (Sodium Chloride 0.65% Na Soln 45 Ml ([place])) 1 - 2 sprays NA PRN PRN PRN Reason: Nasal Dryness/Congestion Stop: 10/03/21 16:54 Zolpidem Tartrate (Zolpidem Tartrate 10 Mg Tab) 10 mg PO HS [facility] Stop: 10/07/21 21:59 Last Admin: 09/11/21 01:46 Dose: 10 mg Documented by: Mental Health & Subst Abuse Tx Psychiatrist Name of Psychiatrist: Irma Lawson Psychiatrist's Date of Appointment with Psychiatrist: 10/07/21 Time of Appointment with Psychiatrist: 1:00 p.m. Psychiatric Appointment Comment: [id number] Therapist Name of Therapist: Irma Therapist's Date of Therapist Appointment: 09/14/21 Time of Therapist Appointment: 10:00 a.m. Therapy Appointment Comment: [id number] [facility], LIVIA Stallworth Intensive Care Anaesthetist Name of Intensive Care Anaesthetist: [facility] - Shweta Castellano Phone Number for Intensive Care Anaesthetist: [phone] Date of Appointment with Intensive Care Anaesthetist: 09/16/21 Time of Appointment with Intensive Care Anaesthetist: 10am Post Discharge Appointments Primary Care Physician Name Of Family Doctor: JAYJAY Reece Primary Care Date of Appointment with PCP: 11/03/21 Time of Appointment with PCP: 12:40 p.m. Provider Appointment Comment: [facility] Contact Information Discharge Discharge Address: [address] [address] (1) Schizophrenia Schizophrenia type: paranoid schizophrenia Qualified Code(s): F20.0 - Paranoid schizophrenia
[2021-09-11] MEDS: OLANZapine 5 MG TABLET PO SCH (15:03)
[2021-09-11] MEDS: OLANZapine 10 MG TAB PO SCH (20:42)
[2021-09-11] MEDS: BENZTROPINE MESYLATE 1 MG TAB PO SCH (20:42)
[2021-09-11] MEDS: ATORVASTATIN 40 MG TAB PO SCH (20:42)
[2021-09-11] MEDS ORDERED: risperiDONE 0.5 MG TABLET PO SCH (22:00)
[2021-09-12] MEDS: hydrOXYzine HCl 25 MG TAB PO PRN (00:09)
[2021-09-12] MEDS: FERROUS SULFATE 325 MG TAB PO SCH (08:52)
[2021-09-12] MEDS: LOSARTAN/HCTZ 50/12.5MG TAB PO SCH (08:53)
[2021-09-12] MEDS: methIMAzole 5 MG TABLET PO SCH (08:53)
[2021-09-12] MEDS: ASPIRIN 81 MG ECTAB PO SCH (08:53)
[2021-09-12] MEDS: ARIPiprazole 5 MG TAB PO SCH (08:53)
[2021-09-12] MEDS: metFORMIN HCL ER 500 MG TABCR PO SCH ×2 (08:53→17:14)
[2021-09-12] MEDS: INSULIN ASPART PER UNIT SC SCH ×4 (10:49→20:27)
--- NOTE | 2021-09-12 11:36 | Psychiatric Progress Note ---
Date of Service September 12, 2021 Impression / Recommendations Impression The patient is a 56 year old with a history of schizophrenia who was admitted for worsening delusions and depression with SI. Diagnostically consistent with acute exacerbation of schizophrenia and unspecified depression-adjustment disorder vs worsening mood in context of increasing psychotic symptoms vs MDD. The patient is deemed unstable and requires psychiatric hospitalization for diagnostic clarification, safety and stabilization, medication management and development of further coping skills. MNPR due to psychosis with paranoia, ideas of reference and was actively responding to internal stimuli 09/12/20: improving, tolerating Abilify trial (1) Schizophrenia: (2) Depression: (3) Suicidal ideation: 09/12/21: Abilify 5 mg po qam, continue Zyprexa unchanged, glucose monitoring and encourage compliance with Levimir. 09/11/21: Risks/benefits/alternatives were reviewed re: antipsychotics for mood and/or psychosis. Discussion included but was not limited to metabolic side effects, risks of TD and suicidal thoughts. There were no abnormal motor movements at baseline. Will taper Risperdal augmentation in favor of a trial of Abilify. 09/10/21: Continue medications, she's reluctant to make any medication dose increases. She can go to psych rehab three times a week. 09/09/21: Continue risperidone and olanzapine. Social work contacted her outpatient counter caser to discuss option of increasing psych rehab to three times weekly to help with social engagement and reduce feelings of isolation. 09/08/21: Discontinue seroquel given hypertriglyceridemia and ongoing symptoms, starting risperidone 0.5 mg qAM & 1 mg qHS and continue olanzapine. 09/07/21: continue current medications. Awaiting call from outpatient psychiatrist. For now will continue with olanzapine and seroquel given extensive past medication trials with limited benefit including clozapine per chart review. Continuing to focus on coping skills and reality-testing and challenging negative auditory hallucinations. 09/06/21: adding ambien 10mg qhs prn as prior to admission medication and she continues to feel insomnia is a concern (verified in [facility]). Continue other medications. Left message with [facility] provider. Requested [facility] staff remove TV from her room per her request. 09/05/21: continue current medications, will attempt collateral from her outpt psychiatrist tomorrow. Discontinue fish oil as she refuses due to large pill size. 09/04/21: The patient was admitted to the [facility] ([facility] mental health unit) on q15 min checks (behavioral with suicide precautions) for safety. The patient will participate in group, recreational, and milieu therapies and will be offered additional individual and family sessions as clinically appropriate. -Continue prior to admission medications including: ambien 10mg qhs prn, olanzapine 5mg qafternoon & 30 mg qhs, seroquel 25mg qAM & 50 mg qhs -EKG to assess QTc given multiple prolonging agents and high dose olanzapine -Contact outpatient psychiatrist for further collateral Inventory Assets Strengths: outpt providers, family support, motivated to seek treatment Needs: additional outpt resources, increased opportunities for social interactions Risk Factors Assessment : Yes Do You Have Access To A Gun?: No Health Problems: Yes Mental Health Diagnoses: Yes Substance Use Disorders: No Previous Attempt: Yes Previous Attempt; Highly Lethal: Yes Family History of Suicide: No Previous Psychiatric Hospitalization: Yes Hopelessness: No Smoker: No Protective Factors Assessment [employer] Beliefs: Yes Employed: No Stable Relationships: Yes Supportive Family: Yes Good Rapport with Provider: Yes Interval History Identifying Information AMADO OLSON is a 56-year-old F who currently lives in a personal mcc, has a history of schizophrenia, and was admitted on 09/03/21 17:26 on a 201 voluntary commitment for worsening delusions and depression with SI. Chief Complaint "I'm feeling pretty good actually". Review of Systems Sleep Information Total Hours of Sleep: 5 Sleep Comments: pt on q-15 minute checks Meal Information Percent Meal Consumed - Breakfast: 100 Percent Meal Consumed - Lunch: 100 Percent Meal Consumed - Dinner: 100 Subjective Subjective Patient was seen & assessed and interval progress reviewed with nursing and social work. States that she feels calm today, denies restlessness or sedation. She was resistant to am insulin but agreed to take toward lunch. slept better but did require vistaril prn and would prefer melatonin. Physical Exam Psychiatric Orientation: alert and oriented x 3 Apperance: appropriately dressed and appropriately groomed Eye Contact: good eye contact Motor Behavior: no abnormal motor movements Speech: normal rate/rhythm/volume of speech Affect: + depressed affect Mood: no depressed mood Thought Process: goal directed thought process Thought Content: reality based without delusions Suicidal Thoughts: denies suicidal thoughts Homicidal Thoughts: denies homicidal thoughts Hallucinations: no auditory hallucinations and no visual hallucinations Cognition: attention grossly intact and language grossly intact Estimated Intelligence: consistent with education level Vital Signs (Past 24 Hours) Last Vital Signs Temp 36.6 C 09/12/21 06:42 Pulse 81 09/12/21 06:42 Resp 16 09/12/21 06:42 BP 146/84 H 09/12/21 06:42 Pulse Ox 99 09/03/21 17:40 Results & Data ([facility]) Laboratory Results Laboratory Results - last 24 hr 09/11/21 09/11/21 09/11/21 12:53 17:10 20:13 POC Glucose 101 H 146 H 169 H 09/12/21 08:23 POC Glucose 104 H Current Inpatient Medications Current Inpatient Medications: Current Inpatient Medications Acetaminophen (Acetaminophen 325 Mg Tab) 325 mg PO QID PRN PRN Reason: pain Stop: 10/03/21 16:40 Al Hydrox/Mg Hydrox/Simethicone (Aluminum/Magnesium Susp 30 Ml Udc) 30 ml PO Q4H PRN PRN Reason: GI Upset Stop: 10/03/21 16:54 Aripiprazole (Aripiprazole 5 Mg Tab) 5 mg PO QAM [facility] Stop: 10/12/21 08:59 Last Admin: 09/12/21 08:53 Dose: 5 mg Documented by: Aspirin (Aspirin 81 Mg Ectab) 81 mg PO QA [facility] Stop: 10/04/21 08:59 Last Admin: 09/12/21 08:53 Dose: 81 mg Documented by: Atorvastatin Calcium (Atorvastatin 40 Mg Tab) 80 mg PO [facility] Stop: 10/03/21 20:59 Last Admin: 09/11/21 20:42 Dose: 40 mg Documented by: Benztropine Mesylate (Benztropine Mesylate 1 Mg Tab) 1 mg PO [facility] Stop: 10/03/21 20:59 Last Admin: 09/11/21 20:42 Dose: 1 mg Documented by: Bismuth Subsalicylate (Bismuth Subsalicylate Liqd 236 Ml) 15 ml PO PRN PRN PRN Reason: Loose Stool Stop: 10/03/21 16:54 Dextrose (Dextrose 50% 50 Ml Syringe) 25 - 50 ml IV UD PRN; Protocol PRN Reason: Hypoglycemia Protocol Stop: 10/03/21 17:59 Ferrous Sulfate (Ferrous Sulfate 325 Mg Tab) 325 mg PO QAM [facility] Stop: 10/04/21 08:59 Last Admin: 09/12/21 08:52 Dose: 325 mg Documented by: Glucagon (Glucagon For Inj 1 Mg Vial) 1 mg IM UD PRN; Protocol PRN Reason: Hypoglycemia Protocol Stop: 10/03/21 17:59 Glucose (Glucose 40% Gel 15 Gm Tube) 15 - 30 gm PO UD PRN; Protocol PRN Reason: Hypoglycemia Protocol Stop: 10/03/21 17:59 Glucose (Glucose 10 Tabs/Tube) 4 - 8 tabs PO UD PRN; Protocol PRN Reason: Hypoglycemia Protocol Stop: 10/03/21 17:59 HCTZ/Losartan Potassium (Losartan/Hctz 50/12.5mg Tab) 1 tab PO QAM [facility] Stop: 10/04/21 08:59 Last Admin: 09/12/21 08:53 Dose: 1 tab Documented by: Hydroxyzine HCl (Hydroxyzine Hcl 25 Mg Tab) 25 mg PO TID PRN PRN Reason: Anxiety Stop: 10/03/21 16:40 Last Admin: 09/12/21 00:09 Dose: 25 mg Documented by: Insulin Aspart (Insulin Aspart Per Unit) 0 units SC ACHS [facility] Stop: 10/08/21 11:59 Last Admin: 09/12/21 10:49 Dose: Not Given Documented by: Insulin Detemir (Insulin Detemir) 115 units SC DAILY [facility] Stop: 10/09/21 08:59 Last Admin: 09/11/21 09:06 Dose: 115 units Documented by: Insulin Detemir (Insulin Detemir) 75 units SC QPM [facility] Stop: 10/08/21 20:59 Last Admin: 09/11/21 20:38 Dose: 75 units Documented by: Magnesium Hydroxide (Magnesium Hydroxide Susp 30 Ml Udc) 30 ml PO DAILY PRN PRN Reason: Constipation Stop: 10/03/21 16:54 Metformin HCl (Metformin Hcl Er 500 Mg Tabcr) 500 mg PO BID17 [facility] Stop: 10/03/21 17:59 Last Admin: 09/12/21 08:53 Dose: 500 mg Documented by: Methimazole (Methimazole 5 Mg Tablet) 10 mg PO QAM [facility] Stop: 10/04/21 08:59 Last Admin: 09/12/21 08:53 Dose: 5 mg Documented by: Miscellaneous (Carbohydrates For Hypoglycemia ) 15 - 30 gm PO UD PRN PRN Reason: Hypoglycemia Treatment Stop: 10/03/21 17:59 Miscellaneous Information (Pharmacy Glycemic Mgmt Consult) 1 ea N/A UD PRN PRN Reason: Consult Stop: 10/03/21 16:55 Olanzapine (Olanzapine 5 Mg Tablet) 5 mg PO TODAY@1500 [facility] Stop: 10/04/21 14:59 Last Admin: 09/11/21 15:03 Dose: 5 mg Documented by: Olanzapine (Olanzapine 10 Mg Tab) 30 mg PO HS [facility] Stop: 10/04/21 21:59 Last Admin: 09/11/21 20:42 Dose: 30 mg Documented by: Sodium Chloride (Sodium Chloride 0.65% Na Soln 45 Ml ([place]helan)) 1 - 2 sprays NA PRN PRN PRN Reason: Nasal Dryness/Congestion Stop: 10/03/21 16:54 Zolpidem Tartrate (Zolpidem Tartrate 10 Mg Tab) 10 mg PO [facility] Stop: 10/07/21 21:59 Last Admin: 09/11/21 20:42 Dose: 10 mg Documented by: Mental Health & Subst Abuse Tx Psychiatrist Name of Psychiatrist: Irma Lawson Psychiatrist's Date of Appointment with Psychiatrist: 10/07/21 Time of Appointment with Psychiatrist: 1:00 p.m. Psychiatric Appointment Comment: [id number] Therapist Name of Therapist: Irma Therapist's Date of Therapist Appointment: 09/14/21 Time of Therapist Appointment: 10:00 a.m. Therapy Appointment Comment: [id number] [facility] LIVIA Bradley Wrapper Off Name of Wrapper Off: Asa Castellano Phone Number for Wrapper Off: [phone] Date of Appointment with Wrapper Off: 09/16/21 Time of Appointment with Wrapper Off: 10am Post Discharge Appointments Primary Care Physician Name Of Family Doctor: JAYJAY Reece Primary Care Date of Appointment with PCP: 11/03/21 Time of Appointment with PCP: 12:40 p.m. Provider Appointment Comment: [id number] [facility] Contact Information Discharge Discharge Address: [facility], [address] [place] [address], [place] [address] (1) Schizophrenia Schizophrenia type: paranoid schizophrenia Qualified Code(s): F20.0 - Paranoid schizophrenia
[2021-09-12] MEDS: INSULIN DETEMIR SC SCH ×2 (12:56→20:26)
[2021-09-12] MEDS: OLANZapine 5 MG TABLET PO SCH (14:54)
[2021-09-12] MEDS: OLANZapine 10 MG TAB PO SCH (20:22)
[2021-09-12] MEDS: BENZTROPINE MESYLATE 1 MG TAB PO SCH (20:22)
[2021-09-12] MEDS: ATORVASTATIN 40 MG TAB PO SCH (20:22)
[2021-09-12] MEDS: ZOLPIDEM TARTRATE 10 MG TAB PO SCH (20:23)
[2021-09-12] MEDS: MELATONIN 3 MG TAB PO PRN (20:26)
[2021-09-13] MEDS: hydrOXYzine HCl 25 MG TAB PO PRN (02:20)
[2021-09-13] MEDS: metFORMIN HCL ER 500 MG TABCR PO SCH ×2 (08:33→16:47)
[2021-09-13] MEDS: ASPIRIN 81 MG ECTAB PO SCH (08:33)
[2021-09-13] MEDS: LOSARTAN/HCTZ 50/12.5MG TAB PO SCH (08:33)
[2021-09-13] MEDS: methIMAzole 5 MG TABLET PO SCH (08:33)
[2021-09-13] MEDS: FERROUS SULFATE 325 MG TAB PO SCH (08:33)
[2021-09-13] MEDS: INSULIN ASPART PER UNIT SC SCH ×4 (08:55→20:41)
[2021-09-13] MEDS: INSULIN DETEMIR SC SCH ×2 (08:56→20:42)
[2021-09-13] MEDS: ARIPiprazole 5 MG TAB PO SCH (09:04)
--- NOTE | 2021-09-13 09:46 | Psychiatric Progress Note ---
Date of Service September 13, 2021 Impression / Recommendations Impression The patient is a 56 year old with a history of schizophrenia who was admitted for worsening delusions and depression with SI. Diagnostically consistent with acute exacerbation of schizophrenia and unspecified depression-adjustment disorder vs worsening mood in context of increasing psychotic symptoms vs MDD. The patient is deemed unstable and requires psychiatric hospitalization for diagnostic clarification, safety and stabilization, medication management and development of further coping skills. d/c MNPR 09/12/20: improving, poor sleep last pm (she does not attribute to med change) (1) Schizophrenia: (2) Depression: 09/13/21: d/c Abilify--patient not refusing to restart Risperdal but no acute indication as improving. 09/12/21: Abilify 5 mg po qam, continue Zyprexa unchanged, glucose monitoring and encourage compliance with Levimir. 09/11/21: Risks/benefits/alternatives were reviewed re: antipsychotics for mood and/or psychosis. Discussion included but was not limited to metabolic side effects, risks of TD and suicidal thoughts. There were no abnormal motor movements at baseline. Will taper Risperdal augmentation in favor of a trial of Abilify. 09/10/21: Continue medications, she's reluctant to make any medication dose increases. She can go to psych rehab three times a week. 09/09/21: Continue risperidone and olanzapine. Social work contacted her outpatient case maker to discuss option of increasing psych rehab to three times weekly to help with social engagement and reduce feelings of isolation. 09/08/21: Discontinue seroquel given hypertriglyceridemia and ongoing symptoms, starting risperidone 0.5 mg qAM & 1 mg qHS and continue olanzapine. 09/07/21: continue current medications. Awaiting call from outpatient psychiatrist. For now will continue with olanzapine and seroquel given extensive past medication trials with limited benefit including clozapine per chart review. Continuing to focus on coping skills and reality-testing and challenging negative auditory hallucinations. 09/06/21: adding ambien 10mg qhs prn as prior to admission medication and she continues to feel insomnia is a concern (verified in [employer]). [facility] other medications[facility] Requested [facility] staff remove TV from her room per her request. 09/05/21: continue current medications, will attempt collateral from her outpt psychiatrist tomorrow. Discontinue fish oil as she refuses due to large pill size. 09/04/21: The patient was admitted to the [facility] ([facility] mental health unit) on q15 min checks (behavioral with suicide precautions) for safety. The patient will participate in group, recreational, and milieu therapies and will be offered additional individual and family sessions as clinically appropriate. -Continue prior to admission medications including: ambien 10mg qhs prn, olanzapine 5mg qafternoon & 30 mg qhs, seroquel 25mg qAM & 50 mg qhs -EKG to assess QTc given multiple prolonging agents and high dose olanzapine -Contact outpatient psychiatrist for further collateral Inventory Assets Strengths: outpt providers, family support, motivated to seek treatment Needs: additional outpt resources, increased opportunities for social interactions Risk Factors Assessment : Yes Do You Have Access To A Gun?: No Health Problems: Yes Mental Health Diagnoses: Yes Substance Use Disorders: No Previous Attempt: Yes Previous Attempt; Highly Lethal: Yes Family History of Suicide: No Previous Psychiatric Hospitalization: Yes Hopelessness: No Smoker: No Protective Factors Assessment Ep[employer] Beliefs: Yes Employed: No Stable Relationships: Yes Supportive Family: Yes Good Rapport with Provider: Yes Interval History Identifying Information AMADO OLSON is a 56-year-old F who currently lives in a personal long term, has a history of schizophrenia, and was admitted on 09/03/21 17:26 on a 201 voluntary commitment for worsening delusions and depression with SI. Chief Complaint "I don't like Abilify and don't think I need Risperdal". Review of Systems Sleep Information Total Hours of Sleep: 2.75 Sleep Comments: pt on q-15 minute checks Meal Information Percent Meal Consumed - Breakfast: 75 Percent Meal Consumed - Lunch: 100 Percent Meal Consumed - Dinner: 100 Subjective Subjective Patient was seen & assessed and interval progress reviewed with treatment team. Patient states she did not feel as well yesterday, believes her sleep was about the same though staff report was significantly less. She did comply with insulin. Does not want to continue Abilify, concerns about side effects are rather non-specific. Physical Exam Psychiatric Orientation: alert and oriented x 3 Apperance: appropriately dressed and appropriately groomed Eye Contact: good eye contact Motor Behavior: steady gait and station and no abnormal motor movements Speech: normal rate/rhythm/volume of speech Affect: + constricted affect Mood: no depressed mood Thought Process: goal directed thought process Thought Content: reality based without delusions Suicidal Thoughts: denies suicidal thoughts Homicidal Thoughts: denies homicidal thoughts Hallucinations: no auditory hallucinations and no visual hallucinations Cognition: recent memory grossly intact, attention grossly intact and language grossly intact Insight: + limited insight Judgement: + limited judgement Vital Signs (Past 24 Hours) Last Vital Signs Temp 36.7 C 09/13/21 06:37 Pulse 69 09/13/21 06:38 Resp 16 09/13/21 06:37 BP 136/87 09/13/21 06:38 Pulse Ox 99 09/03/21 17:40 Results & Data ([facility]) Laboratory Results Laboratory Results - last 24 hr 09/12/21 09/12/21 09/12/21 12:34 16:54 20:20 POC Glucose 142 H 163 H 162 H 09/13/21 08:30 POC Glucose 104 H Current Inpatient Medications Current Inpatient Medications: Current Inpatient Medications Acetaminophen (Acetaminophen 325 Mg Tab) 325 mg PO QID PRN PRN Reason: pain Stop: 10/03/21 16:40 Al Hydrox/Mg Hydrox/Simethicone (Aluminum/Magnesium Susp 30 Ml Udc) 30 ml PO Q4H PRN PRN Reason: GI Upset Stop: 10/03/21 16:54 Aspirin (Aspirin 81 Mg Ectab) 81 mg PO QA [facility] Stop: 10/04/21 08:59 Last Admin: 09/13/21 08:33 Dose: 81 mg Documented by: Atorvastatin Calcium (Atorvastatin 40 Mg Tab) 80 mg PO HS [facility] Stop: 10/03/21 20:59 Last Admin: 09/12/21 20:22 Dose: 40 mg Documented by: Benztropine Mesylate (Benztropine Mesylate 1 Mg Tab) 1 mg PO HS [facility] Stop: 10/03/21 20:59 Last Admin: 09/12/21 20:22 Dose: 1 mg Documented by: Bismuth Subsalicylate (Bismuth Subsalicylate Liqd 236 Ml) 15 ml PO PRN PRN PRN Reason: Loose Stool Stop: 10/03/21 16:54 Dextrose (Dextrose 50% 50 Ml Syringe) 25 - 50 ml IV UD PRN; Protocol PRN Reason: Hypoglycemia Protocol Stop: 10/03/21 17:59 Ferrous Sulfate (Ferrous Sulfate 325 Mg Tab) 325 mg PO QAM [facility] Stop: 10/04/21 08:59 Last Admin: 09/13/21 08:33 Dose: 325 mg Documented by: Glucagon (Glucagon For Inj 1 Mg Vial) 1 mg IM UD PRN; Protocol PRN Reason: Hypoglycemia Protocol Stop: 10/03/21 17:59 Glucose (Glucose 40% Gel 15 Gm Tube) 15 - 30 gm PO UD PRN; Protocol PRN Reason: Hypoglycemia Protocol Stop: 10/03/21 17:59 Glucose (Glucose 10 Tabs/Tube) 4 - 8 tabs PO UD PRN; Protocol PRN Reason: Hypoglycemia Protocol Stop: 10/03/21 17:59 HCTZ/Losartan Potassium (Losartan/Hctz 50/12.5mg Tab) 1 tab PO QAM [facility] Stop: 10/04/21 08:59 Last Admin: 09/13/21 08:33 Dose: 1 tab Documented by: Hydroxyzine HCl (Hydroxyzine Hcl 25 Mg Tab) 25 mg PO TID PRN PRN Reason: Anxiety Stop: 10/03/21 16:40 Last Admin: 09/13/21 02:20 Dose: 25 mg Documented by: Insulin Aspart (Insulin Aspart Per Unit) 0 units SC ACHS [facility] Stop: 10/08/21 11:59 Last Admin: 09/13/21 08:55 Dose: 12 units Documented by: Insulin Detemir (Insulin Detemir) 115 units SC DAILY [facility] Stop: 10/09/21 08:59 Last Admin: 09/13/21 08:56 Dose: 115 units Documented by: Insulin Detemir (Insulin Detemir) 75 units SC QPM [facility] Stop: 10/08/21 20:59 Last Admin: 09/12/21 20:26 Dose: 75 units Documented by: Magnesium Hydroxide (Magnesium Hydroxide Susp 30 Ml Udc) 30 ml PO DAILY PRN PRN Reason: Constipation Stop: 10/03/21 16:54 Melatonin (Melatonin 3 Mg Tab) 3 mg PO HS PRN PRN Reason: Sleep Stop: 10/12/21 11:30 Last Admin: 09/12/21 20:26 Dose: 3 mg Documented by: Metformin HCl (Metformin Hcl Er 500 Mg Tabcr) 500 mg PO BID17 [facility] Stop: 10/03/21 17:59 Last Admin: 09/13/21 08:33 Dose: 500 mg Documented by: Methimazole (Methimazole 5 Mg Tablet) 10 mg PO QAM [facility] Stop: 10/04/21 08:59 Last Admin: 09/13/21 08:33 Dose: 5 mg Documented by: Miscellaneous (Carbohydrates For Hypoglycemia ) 15 - 30 gm PO UD PRN PRN Reason: Hypoglycemia Treatment Stop: 10/03/21 17:59 Miscellaneous Information (Pharmacy Glycemic Mgmt Consult) 1 ea N/A UD PRN PRN Reason: Consult Stop: 10/03/21 16:55 Olanzapine (Olanzapine 5 Mg Tablet) 5 mg PO TODAY@1500 [facility] Stop: 10/04/21 14:59 Last Admin: 09/12/21 14:54 Dose: 5 mg Documented by: Olanzapine (Olanzapine 10 Mg Tab) 30 mg PO HS [facility] Stop: 10/04/21 21:59 Last Admin: 09/12/21 20:22 Dose: 30 mg Documented by: Sodium Chloride (Sodium Chloride 0.65% Na Soln 45 Ml ([facility]erna)) 1 - 2 sprays NA PRN PRN PRN Reason: Nasal Dryness/Congestion Stop: 10/03/21 16:54 Zolpidem Tartrate (Zolpidem Tartrate 10 Mg Tab) 10 mg PO HS [facility] Stop: 10/07/21 21:59 Last Admin: 09/12/21 20:23 Dose: 10 mg Documented by: Mental Health & Subst Abuse Tx Psychiatrist Name of Psychiatrist: Irma Lawson Psychiatrist's Date of Appointment with Psychiatrist: 10/07/21 Time of Appointment with Psychiatrist: 1:00 p.m. Psychiatric Appointment Comment: [id number] Therapist Name of Therapist: Irma Therapist's Date of Therapist Appointment: 09/14/21 Time of Therapist Appointment: 10:00 a.m. Therapy Appointment Comment: [id number] [facility], LIVIA Stallworth Yarrow Gatherer Name of Yarrow Gatherer: [employer] [facility] Shweta Castellano Phone Number for Yarrow Gatherer: [phone] Date of Appointment with Yarrow Gatherer: 09/16/21 Time of Appointment with Yarrow Gatherer: 10am Post Discharge Appointments Primary Care Physician Name Of Family Doctor: JAYJAY Reece Primary Care Date of Appointment with PCP: 11/03/21 Time of Appointment with PCP: 12:40 p.m. Provider Appointment Comment: [address] [facility] Contact Information Discharge Discharge Address: [address] [address] (1) Schizophrenia Schizophrenia type: paranoid schizophrenia Qualified Code(s): F20.0 - Paranoid schizophrenia
[2021-09-13] MEDS: OLANZapine 5 MG TABLET PO SCH (16:15)
[2021-09-13] MEDS: OLANZapine 10 MG TAB PO SCH (20:35)
[2021-09-13] MEDS: ATORVASTATIN 40 MG TAB PO SCH (20:35)
[2021-09-13] MEDS: BENZTROPINE MESYLATE 1 MG TAB PO SCH (20:36)
[2021-09-13] MEDS: MELATONIN 3 MG TAB PO PRN (20:41)
[2021-09-13] MEDS: ZOLPIDEM TARTRATE 10 MG TAB PO SCH (20:41)
[2021-09-14] MEDS: ASPIRIN 81 MG ECTAB PO SCH (08:18)
[2021-09-14] MEDS: FERROUS SULFATE 325 MG TAB PO SCH (08:19)
[2021-09-14] MEDS: metFORMIN HCL ER 500 MG TABCR PO SCH (08:19)
[2021-09-14] MEDS: LOSARTAN/HCTZ 50/12.5MG TAB PO SCH (08:19)
[2021-09-14] MEDS: methIMAzole 5 MG TABLET PO SCH (08:19)
[2021-09-14] MEDS: INSULIN ASPART PER UNIT SC SCH ×2 (09:05→13:16)
[2021-09-14] MEDS: INSULIN DETEMIR SC SCH (09:06)
--- NOTE | 2021-09-14 09:55 | Discharge Summary ---
Date of Service September 14, 2021 History of Present Illness As per Dr. Oliva on admission: Sanjuanita has a history of prior admissions at [facility] and states that past hospitalizations have always been helpful. Therefore when she started to feel more depressed and developed SI with thoughts of overdosing on pills she decided "it was time to come up here for a rest and to work on my coping skills to feel better". She describes about 2 months of worsening depression and recently worsening SI which she attributes to feeling isolated at [facility] since it is "in the [place] no where". She also attributes some of her depression to not feeling like she can watch TV because "my TV is jinxed". She does feel comfortable watching TV on the main TV in the living room at the residential but is suspicious of her personal TV. She has been attending psychiatric rehab up to twice per week but recently has missed multiple days which she attributes to poor sleep. She denies feeling groggy or sedated from her medications but rather feels that her poor sleep is due to hearing the "screams" of a child she lost in-utero many years ago. She notes that "I lost my daughter while flying and sometimes I still feel her inside me and I worry I'm hurting her and she screams". She describes that when she has this feeling of she sometimes requests lower dosages of her medications "because I don't want to hurt her, I worry about harming her". She also notes that her stomach feels "sensitive" which she attributes to harm from the loss. States that she likes her medications as they are and doesn't wish to make any changes. Physical Exam Psychiatric See admission H&P and DOD summary. Vital Signs (Past 24 Hours) Last Vital Signs Temp 36.2 C L 09/14/21 06:34 Pulse 65 09/14/21 06:35 Resp 16 09/14/21 06:34 BP 147/87 H 09/14/21 06:35 Pulse Ox 99 09/03/21 17:40 Principal Diagnosis schizophrenia Psychiatric Data See daily stay summary. In short, safety was maintained and the patient was cooperative with care. The patient was maintained on insulin as per glycemic pharmacy consult, all of her regular standing medications that were non formulary are resumed unchanged at discharge. Medication changes included discon tinuation of Seroquel due to ongoing symptoms and elevated triglycerides in favor of a trial of Risperdal. Her delusions decreased and she continued to deny hallucinations but did not necessarily attribute the improvement to Risperdal. She typicall declines med changes on the unit and does stabilize in the therapeutic milieu. She was again counseled re: the longer term metabolic risks of Zyprexa given her diabetes requiring multiple agents. She ultimately asked for a trial of Abilify in place of Risperdal but requested it be discontinued after 1 dose. She prefers to work with her outpatient provider on any additional med trials but would like a short supply of Risperdal prn should her symptoms return prior to her follow up appointment in 3 weeks. [facility] discontinued all of her medications upon admission so [facility] is requesting new rx for psych and medical medications. Day of Discharge Assessment Today the patient voices readiness for discharge. They note improvement in mood and deny thoughts to harm self or others. Thoughts remain organized and they are improved from admission. There is no evidence of psychosis. They agree to take mediations as prescribed and keep follow-up appointments. They are stable for discharge to outpatient level of care. Transition of Care Transition Of Care Record: was reviewed with the patient Advance Directives Advance Directives Information Provided: Yes Advance Directives: No Mental Health Advance Directive: No Advance Directives on File: No Living Will: No Power of Any Commodity Sales Deliverer: No Advance Directives Reason:: Declines as Mental Health Visit. Risk Factors Assessment : Yes Do You Have Access To A Gun?: No Health Problems: Yes Mental Health Diagnoses: Yes Substance Use Disorders: No Previous Attempt: Yes Previous Attempt; Highly Lethal: Yes Family History of Suicide: No Previous Psychiatric Hospitalization: Yes Hopelessness: No Smoker: No Protective Factors Assessment Voodoo Beliefs: Yes Employed: No Stable Relationships: Yes Supportive Family: Yes Good Rapport with Provider: Yes Tobacco Cessation at Discharge Tobacco Cessation Medication Prescribed at Discharge: Not Applicable/Non-Smoker Antipsychotic Medications The patient is continuing 2 antipsychotics due to: A history of a minimum of 3 failed trials of monotherapy (LIST): clozaril, zyprexa, risperdal, Abilify and others Total Time Total Time Spent: Greater Than 30 Minutes Total Time Includes: Examination of the patient, Discharge Planning and Medication Reconciliation Discharge Data Lab Results 09/03/21 09/03/21 09/03/21 14:14 14:14 14:14 WBC RBC Hgb Hct MCV MCH MCHC RDW Std Deviation RDW Coeff of Abel Plt Count MPV Immature Gran % (Auto) Neut % (Auto) Lymph % (Auto) Beadle % (Auto) Eos % (Auto) Baso % (Auto) Neut # (Auto) Lymph # (Auto) Beadle # (Auto) Eos # (Auto) Baso # (Auto) Immature Gran # (Auto) Sodium Potassium Chloride Carbon Dioxide Anion Gap BUN Creatinine Est Cr Clr Drug Dosing Est GFR ( Amer) Est GFR (Non-Af Amer) BUN/Creatinine Ratio Glucose POC Glucose Estimat Average Glucose Hemoglobin A1c Calcium Total Bilirubin AST ALT Alkaline Phosphatase Total Protein Albumin Globulin Albumin/Globulin Ratio Triglycerides Cholesterol LDL Cholesterol, Calc VLDL Cholesterol, Calc HDL Cholesterol Cholesterol/HDL Ratio TSH Urine Color Yellow Urine Appearance Cloudy A Urine pH 5.0 Ur Specific Soldier > 1.045 H Urine Protein Negative Urine Glucose (UA) 3+ H Urine Ketones Negative Urine Blood Negative Urine Nitrite Negative Urine Bilirubin Negative Urine Urobilinogen Negative Ur Leukocyte Esterase Negative Urine WBC (Auto) >30 H Urine RBC (Auto) 5-10 H U Hyaline Cast (Auto) 1-5 U Epithel Cells (Auto) >30 H Urine Bacteria (Auto) 1+ H Urine Yeast Not Reportable Urine Test POC Ur Test Cancelled Salicylates Urine Opiates Screen Neg Ur Methadone, Qual Neg Acetaminophen Urine Barbiturates Neg Ur Phencyclidine (PCP) Neg U Amphetamin/Meth Scrn Neg MDMA (Ecstasy) Screen Neg U Benzodiazepines Scrn Neg Ur Cocaine Metabolite Neg U Marijuana (THC) Screen Neg Ethyl Alcohol mg/dL SARS-CoV-2, RNA, NAAT 09/03/21 09/03/21 09/03/21 14:14 14:16 14:16 WBC 10.20 RBC 5.16 Hgb 14.2 Hct 43.1 MCV 83.5 MCH 27.5 MCHC 32.9 RDW Std Deviation 41.1 RDW Coeff of Abel 13.5 Plt Count 427 H MPV 8.5 Immature Gran % (Auto) 0.8 Neut % (Auto) 62.7 Lymph % (Auto) 30.4 Beadle % (Auto) 4.3 Eos % (Auto) 1.4 Baso % (Auto) 0.4 Neut # (Auto) 6.40 Lymph # (Auto) 3.10 Beadle # (Auto) 0.44 Eos # (Auto) 0.14 Baso # (Auto) 0.04 Immature Gran # (Auto) 0.08 H Sodium 141 Potassium 3.9 Chloride 109 H Carbon Dioxide 25 Anion Gap 7.0 BUN 13 Creatinine 0.95 Est Cr Clr Drug Dosing 69.1 Est GFR ( Amer) 77.6 Est GFR (Non-Af Amer) 67.0 BUN/Creatinine Ratio 13.9 Glucose 235 H POC Glucose Estimat Average Glucose Hemoglobin A1c Calcium 9.3 Total Bilirubin 0.3 AST 11 L ALT 33 Alkaline Phosphatase 114 Total Protein 7.3 Albumin 3.6 Globulin 3.7 Albumin/Globulin Ratio 1.0 Triglycerides Cholesterol LDL Cholesterol, Calc VLDL Cholesterol, Calc HDL Cholesterol Cholesterol/HDL Ratio TSH 0.358 Urine Color Urine Appearance Urine pH Ur Specific Soldier Urine Protein Urine Glucose (UA) Urine Ketones Urine Blood Urine Nitrite Urine Bilirubin Urine Urobilinogen Ur Leukocyte Esterase Urine WBC (Auto) Urine RBC (Auto) U Hyaline Cast (Auto) U Epithel Cells (Auto) Urine Bacteria (Auto) Urine Yeast Urine Test Negative POC Ur Test Salicylates Urine Opiates Screen Ur Methadone, Qual Acetaminophen Urine Barbiturates Ur Phencyclidine (PCP) U Amphetamin/Meth Scrn MDMA (Ecstasy) Screen U Benzodiazepines Scrn Ur Cocaine Metabolite U Marijuana (THC) Screen Ethyl Alcohol mg/dL SARS-CoV-2, RNA, NAAT 09/03/21 09/03/21 09/03/21 14:16 14:16 16:18 WBC RBC Hgb Hct MCV MCH MCHC RDW Std Deviation RDW Coeff of Abel Plt Count MPV Immature Gran % (Auto) Neut % (Auto) Lymph % (Auto) Beadle % (Auto) Eos % (Auto) Baso % (Auto) Neut # (Auto) Lymph # (Auto) Beadle # (Auto) Eos # (Auto) Baso # (Auto) Immature Gran # (Auto) Sodium Potassium Chloride Carbon Dioxide Anion Gap BUN Creatinine Est Cr Clr Drug Dosing Est GFR ( Amer) Est GFR (Non-Af Amer) BUN/Creatinine Ratio Glucose POC Glucose Estimat Average Glucose Hemoglobin A1c Calcium Total Bilirubin AST ALT Alkaline Phosphatase Total Protein Albumin Globulin Albumin/Globulin Ratio Triglycerides Cholesterol LDL Cholesterol, Calc VLDL Cholesterol, Calc HDL Cholesterol Cholesterol/HDL Ratio TSH Urine Color Urine Appearance Urine pH Ur Specific Soldier Urine Protein Urine Glucose (UA) Urine Ketones Urine Blood Urine Nitrite Urine Bilirubin Urine Urobilinogen Ur Leukocyte Esterase Urine WBC (Auto) Urine RBC (Auto) U Hyaline Cast (Auto) U Epithel Cells (Auto) Urine Bacteria (Auto) Urine Yeast Urine Test POC Ur Test Salicylates < 1.7 L Urine Opiates Screen Ur Methadone, Qual Acetaminophen < 2 L Urine Barbiturates Ur Phencyclidine (PCP) U Amphetamin/Meth Scrn MDMA (Ecstasy) Screen U Benzodiazepines Scrn Ur Cocaine Metabolite U Marijuana (THC) Screen Ethyl Alcohol mg/dL < 3.0 SARS-CoV-2, RNA, NAAT NEGATIVE 09/03/21 09/03/21 09/04/21 17:44 19:52 00:47 WBC RBC Hgb Hct MCV MCH MCHC RDW Std Deviation RDW Coeff of Abel Plt Count MPV Immature Gran % (Auto) Neut % (Auto) Lymph % (Auto) Beadle % (Auto) Eos % (Auto) Baso % (Auto) Neut # (Auto) Lymph # (Auto) Beadle # (Auto) Eos # (Auto) Baso # (Auto) Immature Gran # (Auto) Sodium Potassium Chloride Carbon Dioxide Anion Gap BUN Creatinine Est Cr Clr Drug Dosing Est GFR ( Amer) Est GFR (Non-Af Amer) BUN/Creatinine Ratio Glucose POC Glucose 135 H 166 H 80 Estimat Average Glucose Hemoglobin A1c Calcium Total Bilirubin AST ALT Alkaline Phosphatase Total Protein Albumin Globulin Albumin/Globulin Ratio Triglycerides Cholesterol LDL Cholesterol, Calc VLDL Cholesterol, Calc HDL Cholesterol Cholesterol/HDL Ratio TSH Urine Color Urine Appearance Urine pH Ur Specific Soldier Urine Protein Urine Glucose (UA) Urine Ketones Urine Blood Urine Nitrite Urine Bilirubin Urine Urobilinogen Ur Leukocyte Esterase Urine WBC (Auto) Urine RBC (Auto) U Hyaline Cast (Auto) U Epithel Cells (Auto) Urine Bacteria (Auto) Urine Yeast Urine Test POC Ur Test Salicylates Urine Opiates Screen Ur Methadone, Qual Acetaminophen Urine Barbiturates Ur Phencyclidine (PCP) U Amphetamin/Meth Scrn MDMA (Ecstasy) Screen U Benzodiazepines Scrn Ur Cocaine Metabolite U Marijuana (THC) Screen Ethyl Alcohol mg/dL SARS-CoV-2, RNA, NAAT 09/04/21 09/04/21 09/04/21 07:48 08:12 08:12 WBC RBC Hgb Hct MCV MCH MCHC RDW Std Deviation RDW Coeff of Abel Plt Count MPV Immature Gran % (Auto) Neut % (Auto) Lymph % (Auto) Beadle % (Auto) Eos % (Auto) Baso % (Auto) Neut # (Auto) Lymph # (Auto) Beadle # (Auto) Eos # (Auto) Baso # (Auto) Immature Gran # (Auto) Sodium Potassium Chloride Carbon Dioxide Anion Gap BUN Creatinine Est Cr Clr Drug Dosing Est GFR ( Amer) Est GFR (Non-Af Amer) BUN/Creatinine Ratio Glucose POC Glucose 108 H Estimat Average Glucose 206 Hemoglobin A1c 8.8 H Calcium Total Bilirubin AST ALT Alkaline Phosphatase Total Protein Albumin Globulin Albumin/Globulin Ratio Triglycerides 510 H Cholesterol 227 H LDL Cholesterol, Calc VLDL Cholesterol, Calc HDL Cholesterol 34 Cholesterol/HDL Ratio 7 TSH Urine Color Urine Appearance Urine pH Ur Specific Soldier Urine Protein Urine Glucose (UA) Urine Ketones Urine Blood Urine Nitrite Urine Bilirubin Urine Urobilinogen Ur Leukocyte Esterase Urine WBC (Auto) Urine RBC (Auto) U Hyaline Cast (Auto) U Epithel Cells (Auto) Urine Bacteria (Auto) Urine Yeast Urine Test POC Ur Test Salicylates Urine Opiates Screen Ur Methadone, Qual Acetaminophen Urine Barbiturates Ur Phencyclidine (PCP) U Amphetamin/Meth Scrn MDMA (Ecstasy) Screen U Benzodiazepines Scrn Ur Cocaine Metabolite U Marijuana (THC) Screen Ethyl Alcohol mg/dL SARS-CoV-2, RNA, NAAT 09/04/21 09/04/21 09/04/21 11:32 17:12 19:51 WBC RBC Hgb Hct MCV MCH MCHC RDW Std Deviation RDW Coeff of Abel Plt Count MPV Immature Gran % (Auto) Neut % (Auto) Lymph % (Auto) Beadle % (Auto) Eos % (Auto) Baso % (Auto) Neut # (Auto) Lymph # (Auto) Beadle # (Auto) Eos # (Auto) Baso # (Auto) Immature Gran # (Auto) Sodium Potassium Chloride Carbon Dioxide Anion Gap BUN Creatinine Est Cr Clr Drug Dosing Est GFR ( Amer) Est GFR (Non-Af Amer) BUN/Creatinine Ratio Glucose POC Glucose 116 H 113 H 127 H Estimat Average Glucose Hemoglobin A1c Calcium Total Bilirubin AST ALT Alkaline Phosphatase Total Protein Albumin Globulin Albumin/Globulin Ratio Triglycerides Cholesterol LDL Cholesterol, Calc VLDL Cholesterol, Calc HDL Cholesterol Cholesterol/HDL Ratio TSH Urine Color Urine Appearance Urine pH Ur Specific Soldier Urine Protein Urine Glucose (UA) Urine Ketones Urine Blood Urine Nitrite Urine Bilirubin Urine Urobilinogen Ur Leukocyte Esterase Urine WBC (Auto) Urine RBC (Auto) U Hyaline Cast (Auto) U Epithel Cells (Auto) Urine Bacteria (Auto) Urine Yeast Urine Test POC Ur Test Salicylates Urine Opiates Screen Ur Methadone, Qual Acetaminophen Urine Barbiturates Ur Phencyclidine (PCP) U Amphetamin/Meth Scrn MDMA (Ecstasy) Screen U Benzodiazepines Scrn Ur Cocaine Metabolite U Marijuana (THC) Screen Ethyl Alcohol mg/dL SARS-CoV-2, RNA, NAAT 09/05/21 09/05/21 09/05/21 07:57 12:28 16:57 WBC RBC Hgb Hct MCV MCH MCHC RDW Std Deviation RDW Coeff of Abel Plt Count MPV Immature Gran % (Auto) Neut % (Auto) Lymph % (Auto) Beadle % (Auto) Eos % (Auto) Baso % (Auto) Neut # (Auto) Lymph # (Auto) Beadle # (Auto) Eos # (Auto) Baso # (Auto) Immature Gran # (Auto) Sodium Potassium Chloride Carbon Dioxide Anion Gap BUN Creatinine Est Cr Clr Drug Dosing Est GFR ( Amer) Est GFR (Non-Af Amer) BUN/Creatinine Ratio Glucose POC Glucose 104 H 156 H 164 H Estimat Average Glucose Hemoglobin A1c Calcium Total Bilirubin AST ALT Alkaline Phosphatase Total Protein Albumin Globulin Albumin/Globulin Ratio Triglycerides Cholesterol LDL Cholesterol, Calc VLDL Cholesterol, Calc HDL Cholesterol Cholesterol/HDL Ratio TSH Urine Color Urine Appearance Urine pH Ur Specific Soldier Urine Protein Urine Glucose (UA) Urine Ketones Urine Blood Urine Nitrite Urine Bilirubin Urine Urobilinogen Ur Leukocyte Esterase Urine WBC (Auto) Urine RBC (Auto) U Hyaline Cast (Auto) U Epithel Cells (Auto) Urine Bacteria (Auto) Urine Yeast Urine Test POC Ur Test Salicylates Urine Opiates Screen Ur Methadone, Qual Acetaminophen Urine Barbiturates Ur Phencyclidine (PCP) U Amphetamin/Meth Scrn MDMA (Ecstasy) Screen U Benzodiazepines Scrn Ur Cocaine Metabolite U Marijuana (THC) Screen Ethyl Alcohol mg/dL SARS-CoV-2, RNA, NAAT 09/05/21 09/06/21 09/06/21 20:26 04:16 10:54 WBC RBC Hgb Hct MCV MCH MCHC RDW Std Deviation RDW Coeff of Abel Plt Count MPV Immature Gran % (Auto) Neut % (Auto) Lymph % (Auto) Beadle % (Auto) Eos % (Auto) Baso % (Auto) Neut # (Auto) Lymph # (Auto) Beadle # (Auto) Eos # (Auto) Baso # (Auto) Immature Gran # (Auto) Sodium Potassium Chloride Carbon Dioxide Anion Gap BUN Creatinine Est Cr Clr Drug Dosing Est GFR ( Amer) Est GFR (Non-Af Amer) BUN/Creatinine Ratio Glucose POC Glucose 117 H 86 118 H Estimat Average Glucose Hemoglobin A1c Calcium Total Bilirubin AST ALT Alkaline Phosphatase Total Protein Albumin Globulin Albumin/Globulin Ratio Triglycerides Cholesterol LDL Cholesterol, Calc VLDL Cholesterol, Calc HDL Cholesterol Cholesterol/HDL Ratio TSH Urine Color Urine Appearance Urine pH Ur Specific Soldier Urine Protein Urine Glucose (UA) Urine Ketones Urine Blood Urine Nitrite Urine Bilirubin Urine Urobilinogen Ur Leukocyte Esterase Urine WBC (Auto) Urine RBC (Auto) U Hyaline Cast (Auto) U Epithel Cells (Auto) Urine Bacteria (Auto) Urine Yeast Urine Test POC Ur Test Salicylates Urine Opiates Screen Ur Methadone, Qual Acetaminophen Urine Barbiturates Ur Phencyclidine (PCP) U Amphetamin/Meth Scrn MDMA (Ecstasy) Screen U Benzodiazepines Scrn Ur Cocaine Metabolite U Marijuana (THC) Screen Ethyl Alcohol mg/dL SARS-CoV-2, RNA, NAAT 09/06/21 09/06/21 09/06/21 12:36 16:59 20:22 WBC RBC Hgb Hct MCV MCH MCHC RDW Std Deviation RDW Coeff of Abel Plt Count MPV Immature Gran % (Auto) Neut % (Auto) Lymph % (Auto) Beadle % (Auto) Eos % (Auto) Baso % (Auto) Neut # (Auto) Lymph # (Auto) Beadle # (Auto) Eos # (Auto) Baso # (Auto) Immature Gran # (Auto) Sodium Potassium Chloride Carbon Dioxide Anion Gap BUN Creatinine Est Cr Clr Drug Dosing Est GFR ( Amer) Est GFR (Non-Af Amer) BUN/Creatinine Ratio Glucose POC Glucose 170 H 151 H 124 H Estimat Average Glucose Hemoglobin A1c Calcium Total Bilirubin AST ALT Alkaline Phosphatase Total Protein Albumin Globulin Albumin/Globulin Ratio Triglycerides Cholesterol LDL Cholesterol, Calc VLDL Cholesterol, Calc HDL Cholesterol Cholesterol/HDL Ratio TSH Urine Color Urine Appearance Urine pH Ur Specific Soldier Urine Protein Urine Glucose (UA) Urine Ketones Urine Blood Urine Nitrite Urine Bilirubin Urine Urobilinogen Ur Leukocyte Esterase Urine WBC (Auto) Urine RBC (Auto) U Hyaline Cast (Auto) U Epithel Cells (Auto) Urine Bacteria (Auto) Urine Yeast Urine Test POC Ur Test Salicylates Urine Opiates Screen Ur Methadone, Qual Acetaminophen Urine Barbiturates Ur Phencyclidine (PCP) U Amphetamin/Meth Scrn MDMA (Ecstasy) Screen U Benzodiazepines Scrn Ur Cocaine Metabolite U Marijuana (THC) Screen Ethyl Alcohol mg/dL SARS-CoV-2, RNA, NAAT 09/07/21 09/07/21 09/07/21 09:15 12:31 17:18 WBC RBC Hgb Hct MCV MCH MCHC RDW Std Deviation RDW Coeff of Abel Plt Count MPV Immature Gran % (Auto) Neut % (Auto) Lymph % (Auto) Beadle % (Auto) Eos % (Auto) Baso % (Auto) Neut # (Auto) Lymph # (Auto) Beadle # (Auto) Eos # (Auto) Baso # (Auto) Immature Gran # (Auto) Sodium Potassium Chloride Carbon Dioxide Anion Gap BUN Creatinine Est Cr Clr Drug Dosing Est GFR ( Amer) Est GFR (Non-Af Amer) BUN/Creatinine Ratio Glucose POC Glucose 92 89 164 H Estimat Average Glucose Hemoglobin A1c Calcium Total Bilirubin AST ALT Alkaline Phosphatase Total Protein Albumin Globulin Albumin/Globulin Ratio Triglycerides Cholesterol LDL Cholesterol, Calc VLDL Cholesterol, Calc HDL Cholesterol Cholesterol/HDL Ratio TSH Urine Color Urine Appearance Urine pH Ur Specific Soldier Urine Protein Urine Glucose (UA) Urine Ketones Urine Blood Urine Nitrite Urine Bilirubin Urine Urobilinogen Ur Leukocyte Esterase Urine WBC (Auto) Urine RBC (Auto) U Hyaline Cast (Auto) U Epithel Cells (Auto) Urine Bacteria (Auto) Urine Yeast Urine Test POC Ur Test Salicylates Urine Opiates Screen Ur Methadone, Qual Acetaminophen Urine Barbiturates Ur Phencyclidine (PCP) U Amphetamin/Meth Scrn MDMA (Ecstasy) Screen U Benzodiazepines Scrn Ur Cocaine Metabolite U Marijuana (THC) Screen Ethyl Alcohol mg/dL SARS-CoV-2, RNA, NAAT 09/07/21 09/08/21 09/08/21 21:04 07:58 12:28 WBC RBC Hgb Hct MCV MCH MCHC RDW Std Deviation RDW Coeff of Abel Plt Count MPV Immature Gran % (Auto) Neut % (Auto) Lymph % (Auto) Beadle % (Auto) Eos % (Auto) Baso % (Auto) Neut # (Auto) Lymph # (Auto) Beadle # (Auto) Eos # (Auto) Baso # (Auto) Immature Gran # (Auto) Sodium Potassium Chloride Carbon Dioxide Anion Gap BUN Creatinine Est Cr Clr Drug Dosing Est GFR ( Amer) Est GFR (Non-Af Amer) BUN/Creatinine Ratio Glucose POC Glucose 186 H 104 H 96 Estimat Average Glucose Hemoglobin A1c Calcium Total Bilirubin AST ALT Alkaline Phosphatase Total Protein Albumin Globulin Albumin/Globulin Ratio Triglycerides Cholesterol LDL Cholesterol, Calc VLDL Cholesterol, Calc HDL Cholesterol Cholesterol/HDL Ratio TSH Urine Color Urine Appearance Urine pH Ur Specific Soldier Urine Protein Urine Glucose (UA) Urine Ketones Urine Blood Urine Nitrite Urine Bilirubin Urine Urobilinogen Ur Leukocyte Esterase Urine WBC (Auto) Urine RBC (Auto) U Hyaline Cast (Auto) U Epithel Cells (Auto) Urine Bacteria (Auto) Urine Yeast Urine Test POC Ur Test Salicylates Urine Opiates Screen Ur Methadone, Qual Acetaminophen Urine Barbiturates Ur Phencyclidine (PCP) U Amphetamin/Meth Scrn MDMA (Ecstasy) Screen U Benzodiazepines Scrn Ur Cocaine Metabolite U Marijuana (THC) Screen Ethyl Alcohol mg/dL SARS-CoV-2, RNA, NAAT 09/08/21 09/08/21 09/09/21 17:12 19:53 09:42 WBC RBC Hgb Hct MCV MCH MCHC RDW Std Deviation RDW Coeff of Abel Plt Count MPV Immature Gran % (Auto) Neut % (Auto) Lymph % (Auto) Beadle % (Auto) Eos % (Auto) Baso % (Auto) Neut # (Auto) Lymph # (Auto) Beadle # (Auto) Eos # (Auto) Baso # (Auto) Immature Gran # (Auto) Sodium Potassium Chloride Carbon Dioxide Anion Gap BUN Creatinine Est Cr Clr Drug Dosing Est GFR ( Amer) Est GFR (Non-Af Amer) BUN/Creatinine Ratio Glucose POC Glucose 117 H 167 H 132 H Estimat Average Glucose Hemoglobin A1c Calcium Total Bilirubin AST ALT Alkaline Phosphatase Total Protein Albumin Globulin Albumin/Globulin Ratio Triglycerides Cholesterol LDL Cholesterol, Calc VLDL Cholesterol, Calc HDL Cholesterol Cholesterol/HDL Ratio TSH Urine Color Urine Appearance Urine pH Ur Specific Soldier Urine Protein Urine Glucose (UA) Urine Ketones Urine Blood Urine Nitrite Urine Bilirubin Urine Urobilinogen Ur Leukocyte Esterase Urine WBC (Auto) Urine RBC (Auto) U Hyaline Cast (Auto) U Epithel Cells (Auto) Urine Bacteria (Auto) Urine Yeast Urine Test POC Ur Test Salicylates Urine Opiates Screen Ur Methadone, Qual Acetaminophen Urine Barbiturates Ur Phencyclidine (PCP) U Amphetamin/Meth Scrn MDMA (Ecstasy) Screen U Benzodiazepines Scrn Ur Cocaine Metabolite U Marijuana (THC) Screen Ethyl Alcohol mg/dL SARS-CoV-2, RNA, NAAT 09/09/21 09/09/21 09/09/21 12:26 17:04 20:15 WBC RBC Hgb Hct MCV MCH MCHC RDW Std Deviation RDW Coeff of Abel Plt Count MPV Immature Gran % (Auto) Neut % (Auto) Lymph % (Auto) Beadle % (Auto) Eos % (Auto) Baso % (Auto) Neut # (Auto) Lymph # (Auto) Beadle # (Auto) Eos # (Auto) Baso # (Auto) Immature Gran # (Auto) Sodium Potassium Chloride Carbon Dioxide Anion Gap BUN Creatinine Est Cr Clr Drug Dosing Est GFR ( Amer) Est GFR (Non-Af Amer) BUN/Creatinine Ratio Glucose POC Glucose 184 H 131 H 167 H Estimat Average Glucose Hemoglobin A1c Calcium Total Bilirubin AST ALT Alkaline Phosphatase Total Protein Albumin Globulin Albumin/Globulin Ratio Triglycerides Cholesterol LDL Cholesterol, Calc VLDL Cholesterol, Calc HDL Cholesterol Cholesterol/HDL Ratio TSH Urine Color Urine Appearance Urine pH Ur Specific Soldier Urine Protein Urine Glucose (UA) Urine Ketones Urine Blood Urine Nitrite Urine Bilirubin Urine Urobilinogen Ur Leukocyte Esterase Urine WBC (Auto) Urine RBC (Auto) U Hyaline Cast (Auto) U Epithel Cells (Auto) Urine Bacteria (Auto) Urine Yeast Urine Test POC Ur Test Salicylates Urine Opiates Screen Ur Methadone, Qual Acetaminophen Urine Barbiturates Ur Phencyclidine (PCP) U Amphetamin/Meth Scrn MDMA (Ecstasy) Screen U Benzodiazepines Scrn Ur Cocaine Metabolite U Marijuana (THC) Screen Ethyl Alcohol mg/dL SARS-CoV-2, RNA, NAAT 09/10/21 09/10/21 09/10/21 08:33 12:32 16:48 WBC RBC Hgb Hct MCV MCH MCHC RDW Std Deviation RDW Coeff of Abel Plt Count MPV Immature Gran % (Auto) Neut % (Auto) Lymph % (Auto) Beadle % (Auto) Eos % (Auto) Baso % (Auto) Neut # (Auto) Lymph # (Auto) Beadle # (Auto) Eos # (Auto) Baso # (Auto) Immature Gran # (Auto) Sodium Potassium Chloride Carbon Dioxide Anion Gap BUN Creatinine Est Cr Clr Drug Dosing Est GFR ( Amer) Est GFR (Non-Af Amer) BUN/Creatinine Ratio Glucose POC Glucose 102 H 88 121 H Estimat Average Glucose Hemoglobin A1c Calcium Total Bilirubin AST ALT Alkaline Phosphatase Total Protein Albumin Globulin Albumin/Globulin Ratio Triglycerides Cholesterol LDL Cholesterol, Calc VLDL Cholesterol, Calc HDL Cholesterol Cholesterol/HDL Ratio TSH Urine Color Urine Appearance Urine pH Ur Specific Soldier Urine Protein Urine Glucose (UA) Urine Ketones Urine Blood Urine Nitrite Urine Bilirubin Urine Urobilinogen Ur Leukocyte Esterase Urine WBC (Auto) Urine RBC (Auto) U Hyaline Cast (Auto) U Epithel Cells (Auto) Urine Bacteria (Auto) Urine Yeast Urine Test POC Ur Test Salicylates Urine Opiates Screen Ur Methadone, Qual Acetaminophen Urine Barbiturates Ur Phencyclidine (PCP) U Amphetamin/Meth Scrn MDMA (Ecstasy) Screen U Benzodiazepines Scrn Ur Cocaine Metabolite U Marijuana (THC) Screen Ethyl Alcohol mg/dL SARS-CoV-2, RNA, NAAT 09/10/21 09/11/21 09/11/21 19:56 08:42 12:53 WBC RBC Hgb Hct MCV MCH MCHC RDW Std Deviation RDW Coeff of Abel Plt Count MPV Immature Gran % (Auto) Neut % (Auto) Lymph % (Auto) Beadle % (Auto) Eos % (Auto) Baso % (Auto) Neut # (Auto) Lymph # (Auto) Beadle # (Auto) Eos # (Auto) Baso # (Auto) Immature Gran # (Auto) Sodium Potassium Chloride Carbon Dioxide Anion Gap BUN Creatinine Est Cr Clr Drug Dosing Est GFR ( Amer) Est GFR (Non-Af Amer) BUN/Creatinine Ratio Glucose POC Glucose 129 H 126 H 101 H Estimat Average Glucose Hemoglobin A1c Calcium Total Bilirubin AST ALT Alkaline Phosphatase Total Protein Albumin Globulin Albumin/Globulin Ratio Triglycerides Cholesterol LDL Cholesterol, Calc VLDL Cholesterol, Calc HDL Cholesterol Cholesterol/HDL Ratio TSH Urine Color Urine Appearance Urine pH Ur Specific Soldier Urine Protein Urine Glucose (UA) Urine Ketones Urine Blood Urine Nitrite Urine Bilirubin Urine Urobilinogen Ur Leukocyte Esterase Urine WBC (Auto) Urine RBC (Auto) U Hyaline Cast (Auto) U Epithel Cells (Auto) Urine Bacteria (Auto) Urine Yeast Urine Test POC Ur Test Salicylates Urine Opiates Screen Ur Methadone, Qual Acetaminophen Urine Barbiturates Ur Phencyclidine (PCP) U Amphetamin/Meth Scrn MDMA (Ecstasy) Screen U Benzodiazepines Scrn Ur Cocaine Metabolite U Marijuana (THC) Screen Ethyl Alcohol mg/dL SARS-CoV-2, RNA, NAAT 09/11/21 09/11/21 09/12/21 17:10 20:13 08:23 WBC RBC Hgb Hct MCV MCH MCHC RDW Std Deviation RDW Coeff of Abel Plt Count MPV Immature Gran % (Auto) Neut % (Auto) Lymph % (Auto) Beadle % (Auto) Eos % (Auto) Baso % (Auto) Neut # (Auto) Lymph # (Auto) Beadle # (Auto) Eos # (Auto) Baso # (Auto) Immature Gran # (Auto) Sodium Potassium Chloride Carbon Dioxide Anion Gap BUN Creatinine Est Cr Clr Drug Dosing Est GFR ( Amer) Est GFR (Non-Af Amer) BUN/Creatinine Ratio Glucose POC Glucose 146 H 169 H 104 H Estimat Average Glucose Hemoglobin A1c Calcium Total Bilirubin AST ALT Alkaline Phosphatase Total Protein Albumin Globulin Albumin/Globulin Ratio Triglycerides Cholesterol LDL Cholesterol, Calc VLDL Cholesterol, Calc HDL Cholesterol Cholesterol/HDL Ratio TSH Urine Color Urine Appearance Urine pH Ur Specific Soldier Urine Protein Urine Glucose (UA) Urine Ketones Urine Blood Urine Nitrite Urine Bilirubin Urine Urobilinogen Ur Leukocyte Esterase Urine WBC (Auto) Urine RBC (Auto) U Hyaline Cast (Auto) U Epithel Cells (Auto) Urine Bacteria (Auto) Urine Yeast Urine Test POC Ur Test Salicylates Urine Opiates Screen Ur Methadone, Qual Acetaminophen Urine Barbiturates Ur Phencyclidine (PCP) U Amphetamin/Meth Scrn MDMA (Ecstasy) Screen U Benzodiazepines Scrn Ur Cocaine Metabolite U Marijuana (THC) Screen Ethyl Alcohol mg/dL SARS-CoV-2, RNA, NAAT 09/12/21 09/12/21 09/12/21 12:34 16:54 20:20 WBC RBC Hgb Hct MCV MCH MCHC RDW Std Deviation RDW Coeff of Abel Plt Count MPV Immature Gran % (Auto) Neut % (Auto) Lymph % (Auto) Beadle % (Auto) Eos % (Auto) Baso % (Auto) Neut # (Auto) Lymph # (Auto) Beadle # (Auto) Eos # (Auto) Baso # (Auto) Immature Gran # (Auto) Sodium Potassium Chloride Carbon Dioxide Anion Gap BUN Creatinine Est Cr Clr Drug Dosing Est GFR ( Amer) Est GFR (Non-Af Amer) BUN/Creatinine Ratio Glucose POC Glucose 142 H 163 H 162 H Estimat Average Glucose Hemoglobin A1c Calcium Total Bilirubin AST ALT Alkaline Phosphatase Total Protein Albumin Globulin Albumin/Globulin Ratio Triglycerides Cholesterol LDL Cholesterol, Calc VLDL Cholesterol, Calc HDL Cholesterol Cholesterol/HDL Ratio TSH Urine Color Urine Appearance Urine pH Ur Specific Soldier Urine Protein Urine Glucose (UA) Urine Ketones Urine Blood Urine Nitrite Urine Bilirubin Urine Urobilinogen Ur Leukocyte Esterase Urine WBC (Auto) Urine RBC (Auto) U Hyaline Cast (Auto) U Epithel Cells (Auto) Urine Bacteria (Auto) Urine Yeast Urine Test POC Ur Test Salicylates Urine Opiates Screen Ur Methadone, Qual Acetaminophen Urine Barbiturates Ur Phencyclidine (PCP) U Amphetamin/Meth Scrn MDMA (Ecstasy) Screen U Benzodiazepines Scrn Ur Cocaine Metabolite U Marijuana (THC) Screen Ethyl Alcohol mg/dL SARS-CoV-2, RNA, NAAT 09/13/21 09/13/21 09/13/21 08:30 12:18 16:52 WBC RBC Hgb Hct MCV MCH MCHC RDW Std Deviation RDW Coeff of Abel Plt Count MPV Immature Gran % (Auto) Neut % (Auto) Lymph % (Auto) Beadle % (Auto) Eos % (Auto) Baso % (Auto) Neut # (Auto) Lymph # (Auto) Beadle # (Auto) Eos # (Auto) Baso # (Auto) Immature Gran # (Auto) Sodium Potassium Chloride Carbon Dioxide Anion Gap BUN Creatinine Est Cr Clr Drug Dosing Est GFR ( Amer) Est GFR (Non-Af Amer) BUN/Creatinine Ratio Glucose POC Glucose 104 H 163 H 126 H Estimat Average Glucose Hemoglobin A1c Calcium Total Bilirubin AST ALT Alkaline Phosphatase Total Protein Albumin Globulin Albumin/Globulin Ratio Triglycerides Cholesterol LDL Cholesterol, Calc VLDL Cholesterol, Calc HDL Cholesterol Cholesterol/HDL Ratio TSH Urine Color Urine Appearance Urine pH Ur Specific Soldier Urine Protein Urine Glucose (UA) Urine Ketones Urine Blood Urine Nitrite Urine Bilirubin Urine Urobilinogen Ur Leukocyte Esterase Urine WBC (Auto) Urine RBC (Auto) U Hyaline Cast (Auto) U Epithel Cells (Auto) Urine Bacteria (Auto) Urine Yeast Urine Test POC Ur Test Salicylates Urine Opiates Screen Ur Methadone, Qual Acetaminophen Urine Barbiturates Ur Phencyclidine (PCP) U Amphetamin/Meth Scrn MDMA (Ecstasy) Screen U Benzodiazepines Scrn Ur Cocaine Metabolite U Marijuana (THC) Screen Ethyl Alcohol mg/dL SARS-CoV-2, RNA, NAAT 09/13/21 09/14/21 20:32 08:13 WBC RBC Hgb Hct MCV MCH MCHC RDW Std Deviation RDW Coeff of Abel Plt Count MPV Immature Gran % (Auto) Neut % (Auto) Lymph % (Auto) Beadle % (Auto) Eos % (Auto) Baso % (Auto) Neut # (Auto) Lymph # (Auto) Beadle # (Auto) Eos # (Auto) Baso # (Auto) Immature Gran # (Auto) Sodium Potassium Chloride Carbon Dioxide Anion Gap BUN Creatinine Est Cr Clr Drug Dosing Est GFR ( Amer) Est GFR (Non-Af Amer) BUN/Creatinine Ratio Glucose POC Glucose 178 H 103 H Estimat Average Glucose Hemoglobin A1c Calcium Total Bilirubin AST ALT Alkaline Phosphatase Total Protein Albumin Globulin Albumin/Globulin Ratio Triglycerides Cholesterol LDL Cholesterol, Calc VLDL Cholesterol, Calc HDL Cholesterol Cholesterol/HDL Ratio TSH Urine Color Urine Appearance Urine pH Ur Specific Soldier Urine Protein Urine Glucose (UA) Urine Ketones Urine Blood Urine Nitrite Urine Bilirubin Urine Urobilinogen Ur Leukocyte Esterase Urine WBC (Auto) Urine RBC (Auto) U Hyaline Cast (Auto) U Epithel Cells (Auto) Urine Bacteria (Auto) Urine Yeast Urine Test POC Ur Test Salicylates Urine Opiates Screen Ur Methadone, Qual Acetaminophen Urine Barbiturates Ur Phencyclidine (PCP) U Amphetamin/Meth Scrn MDMA (Ecstasy) Screen U Benzodiazepines Scrn Ur Cocaine Metabolite U Marijuana (THC) Screen Ethyl Alcohol mg/dL SARS-CoV-2, RNA, NAAT Hospital Course (1) Schizophrenia: (2) Depression: 09/13/21: d/c Abilify--patient not refusing to restart Risperdal but no acute indication as improving. 09/12/21: Abilify 5 mg po qam, continue Zyprexa unchanged, glucose monitoring and encourage compliance with Levimir. 09/11/21: Risks/benefits/alternatives were reviewed re: antipsychotics for mood and/or psychosis. Discussion included but was not limited to metabolic side effects, risks of TD and suicidal thoughts. There were no abnormal motor movements at baseline. Will taper Risperdal augmentation in favor of a trial of Abilify. 09/10/21: Continue medications, she's reluctant to make any medication dose increases. She can go to psych rehab three times a week. 09/09/21: Continue risperidone and olanzapine. Social work contacted her outpatient director of casework department to discuss option of increasing psych rehab to three times weekly to help with social engagement and reduce feelings of isolation. 09/08/21: Discontinue seroquel given hypertriglyceridemia and ongoing symptoms, starting risperidone 0.5 mg qAM & 1 mg qHS and continue olanzapine. 09/07/21: continue current medications. Awaiting call from outpatient psychiatrist. For now will continue with olanzapine and seroquel given extensive past medication trials with limited benefit including clozapine per chart review. Continuing to focus on coping skills and reality-testing and challenging negative auditory hallucinations. 09/06/21: adding ambien 10mg qhs prn as prior to admission medication and she continues to feel insomnia is a concern (verified in [employer]). Continue other medications. Left message with Irma provider. Requested [facility] staff remove TV from her room per her request. 09/05/21: continue current medications, will attempt collateral from her outpt psychiatrist tomorrow. Discontinue fish oil as she refuses due to large pill size. 09/04/21: The patient was admitted to the [facility] ([facility] inpatient mental health unit) on q15 min checks (behavioral with suicide precautions) for safety. The patient will participate in group, recreational, and milieu therapies and will be offered additional individual and family sessions as clinically appropriate. -Continue prior to admission medications including: ambien 10mg qhs prn, olanzapine 5mg qafternoon & 30 mg qhs, seroquel 25mg qAM & 50 mg qhs -EKG to assess QTc given multiple prolonging agents and high dose olanzapine -Contact outpatient psychiatrist for further collateral Mental Health & Subst Abuse Tx Psychiatrist Name of Psychiatrist: Irma Lawson Psychiatrist's Date of Appointment with Psychiatrist: 10/07/21 Time of Appointment with Psychiatrist: 1:00 p.m. Psychiatric Appointment Comment: [id number] Therapist Name of Therapist: NanciCristian Therapist's Date of Therapist Appointment: 09/14/21 Time of Therapist Appointment: 12:00 noon Therapy Appointment Comment: [id number] [facility] LIVIA [employer] Name of [employer]ian [employer]: [facility]weta Castellano Phone Number for [employer]: [phone] Date of Appointment with [employer]: 09/16/21 Time of Appointment with [employer]: 10am Post Discharge Appointments Primary Care Physician Name Of Family Doctor: JAYJAY Reece Primary [facility] Date of Appointment with PCP: 11/03/21 Time of Appointment with PCP: 12:40 p.m. Provider Appointment Comment: [id number] [facility] Smoking Cessation Counseling Tobacco Cessation Medication Prescribed at Discharge: Not Applicable/Non-Smoker Contact Information Discharge Discharge Address: [address] [address] Discharge Plan Discharge Items Patient Disposition: Home - Self-Care Reason For Visit: MENTAL HEALTH EVAL Discharge Diagnosis: schizophrenia Activity: Resume your previous activity Non-emergency contact: Primary Care Provider, Psychiatrist, Therapist and [employer]uid Designer Call non-emergency contact if: you have any medication questions and your symptoms worsen Follow-up/Referrals: Dillon Rogers MD [Primary Care Provider] - Diet: Carb Consistent or DM2 Addtl Attending Provider Instructions: SPECIAL CARE INSTRUCTIONS: 1. Follow through with your scheduled aftercare appointments. If unable to keep an appointment, please call to reschedule. 2. Take your medication only as prescribed. Medication should not be changed or stopped without the approval of your doctor. In the event of worsening symptoms or concerns about side effects, contact your doctor immediately. 3. Utilize new healthy coping skills, anger management skills, and stress management skills learned during your hospitalization. Journal feelings and process them with a support person. Identify stressors or situations that may result in relapse, deterioration or inappropriate behaviors and develop a plan to deal with those issues. 4. If your coping skills are ineffective and you are in crisis, contact your outpatient providers for direction. If unable to reach your providers, please call the [facility] CRISIS LINE AT , go to the [facility] walk-in center at [address], [address], [place], or go to the closest Emergency Room. 5. Avoid alcohol and un-prescribed drugs. 6. You have been provided with the Mental Health Advance Directives Pamphlet for your review. 7. Your condition is stable for discharge to outpatient level of care, but recovery is an ongoing process. Ifthoughts to harm yourself or others return, follow the safety plan developed during your stay. Planning for a safe return home includes securing weapons. Our treatment team recommends weaponsbe removed from the home until your outpatient provider reassesses your progress. In rare cases where the items themselvescannot be removed, guns and ammunitionshould be secured separatelyand keys stored by a reliable personoutside of the home. If you were admitted on an involuntary commitment, the police or other legal authorities may be involved in this process. AFTERCARE APPOINTMENTS: * Please call your insurance company prior to your scheduled appointment to confirm your aftercare providers are covered. Take your insurance information to your appointments. WHO TO CALL AND WHEN: Medical Emergencies: For questions or emergencies related to your hospital stay, please contact the Inpatient Behavioral Health Unit at [phone]. A office clinician is on-call 20/03 for the Behavioral Health Unit for emergencies At any time you feel your situation is an emergency, you may also call 911 immediately. Pending Studies at Discharge: No Stand-Alone Forms: My [facility] Night Up, Smoking Cessation Medications and DC Order Prescriptions: New ergocalciferol (vitamin D2) [Vitamin D2] 1,250 mcg (50,000 unit) capsule See Rx Instructions .ROUTE .COMPLEX 30 Days Qty: 4 RF: 0 risperidone [Risperdal] 1 mg tablet 1 mg PO DAILY PRN (Reason: severe anxiety related to delusions) 30 Days Qty: 10 RF: 0 melatonin 5 mg capsule 5 mg PO HS PRN (Reason: insomnia) 30 Days Qty: 30 RF: 0 zolpidem [Ambien] 10 mg Tablet 10 mg PO HS 14 Days Qty: 14 RF: 1 Continued (DME) lancets [ReadyLance Safety Lancets] 30 gauge misc See Rx Instructions .Route Qty: 200 RF: 3 (DME) BD AutoShield Duo Pen Needle 30 gauge x 3/16" needle .ROUTE .MEDSUPPLY Qty: 300 RF: 3 (DME) OneTouch Ultra Test Strip See Rx Instructions .Route Qty: 200 RF: 3 atorvastatin 80 mg tablet 80 mg PO HS 30 Days Qty: 30 RF: 0 acetaminophen [Tylenol] 325 mg tablet 325 mg PO QID PRN (Reason: pain) 30 Days Qty: 60 RF: 0 glipizide 10 mg tablet 10 mg PO BID 30 Days Qty: 60 RF: 0 cyanocobalamin (vitamin B-12) [Vitamin B-12] 1,000 mcg Tablet 1,000 mcg PO QAM 30 Days Qty: 30 RF: 0 benztropine 1 mg tablet 1 mg PO HS 30 Days Qty: 30 RF: 0 hydroxyzine HCl 25 mg tablet 25 mg PO TID PRN (Reason: Anxiety) 30 Days Qty: 60 RF: 0 Levemir FlexTouch U-100 Insuln 100 unit/mL (3 mL) insulin pen See Rx Instructions SQ BID 30 Days Qty: 5 RF: 0 olanzapine 5 mg Tablet 5 mg PO DAILY 30 Days Qty: 30 RF: 0 olanzapine 10 mg Tablet 10 mg PO HS 30 Days Qty: 30 RF: 0 olanzapine 20 mg Tablet 20 mg PO HS 30 Days Qty: 30 RF: 0 Victoza 3-Antione 0.6 mg/0.1 mL (18 mg/3 mL) pen injector 1.8 mg subcut DAILY 30 Days Qty: 9 RF: 0 Changed aspirin 81 mg tablet,delayed release (DR/EC) 81 mg PO QAM 30 Days Qty: 30 RF: 0 losartan-hydrochlorothiazide 100-25 mg tablet 1 tab PO QAM 30 Days Qty: 30 RF: 0 ferrous sulfate 325 mg (65 mg iron) tablet 325 mg PO QAM 30 Days Qty: 30 RF: 0 metformin 500 mg tablet extended release 24 hr 500 mg PO BID17 30 Days Qty: 30 RF: 0 fenofibrate micronized 130 mg capsule 130 mg PO QAM 30 Days Qty: 30 RF: 0 Jardiance 10 mg tablet 10 mg PO QAM 30 Days Qty: 30 RF: 0 methimazole 10 mg tablet 10 mg PO QAM 30 Days Qty: 30 RF: 0 Discontinued zolpidem 5 mg Tablet 10 mg PO HS PRN (Reason: Insomnia) RF: 0 quetiapine 25 mg Tablet 25 mg PO QAM RF: 0 quetiapine 50 mg Tablet 50 mg PO HS RF: 0 Vitamin D2 25,000 unit Capsule 50,000 unit PO WK RF: 0 Discharge Orders: Discharge Order (Routine); Ordered 09/14/21 Ordered By: Le Deng/Other Patient Handouts: Managing Type 2 Diabetes Admission Data Admit Date/Time: 09/03/21 17:26 Attending Provider: Le John Admit Provider: Le John Primary Care Provider: Dillon Rogers V. Other Interventions: PSY Interdisciplinary Discharge Planning Last Done: 09/14/21 07:53 Coding Level of Care Code 72607 D/C day mgmt > 30 min Diagnoses Schizophrenia F20.0 Schizophrenia type: paranoid schizophrenia Depression F32.9
== END 2021-09-14 13:30 | disposition home or self-care (01) | DRG 885 ==
LOC: ED 13:54 → 3S 17:22 → SUATTDRO 17:26

== ENCOUNTER 2022-01-06 05:08 | Inpatient (IN) ==
--- NOTE | 2022-01-06 06:00 | Emergency Department Note ---
Impression & Plan Mood disorder The case was signed out to Dr. Sutton at change of shift ED Provider Note NAME: AMADO OLSON AGE: 56 SEX: F ARRIVES VIA: Ambulance INFORMANT: Patient ED PROVIDER(S): Ludivina Zamorano DO CHIEF COMPLAINT: Depression PLAN: Disposition: The patient is awaiting evaluation by the ED psychiatric case folder Condition: Stable MEDICAL DECISION MAKING: This is a 56-year-old female patient with a history of schizophrenia who presents to the emergency department from [facility] with increasing depression. The patient has had multiple previous inpatient psychiatric admissions. She asked to be transported to the emergency department for evaluation as she was unable to sleep tonight stating that her roommate has been keeping her awake by going through her stuff and that she feels extremely depressed and having fleeting suicidal thoughts. She was medically cleared in the emergency department and is awaiting evaluation by the ED psychiatric case folder. Triage Nursing notes reviewed and agree agree them. Prior medical records reviewed Vital Signs: reviewed and remarkable for hypertension Differential diagnosis: Mood disorder, thought disorder, suicidal ideation Diagnostics interpreted by me: Laboratory studies: See below HPI: 56/F arrives for evaluation of depression. The patient presents to the emergency department describing 1 to 2-week history of increasing depression. She is having fleeting suicidal thoughts. The patient has a history of schizophrenia and depression. She goes to therapy every 2 weeks and sees a psychiatrist. She describes coming off of her antidepressant medications a couple of months ago. She has had multiple previous suicide attempts with the most recent one being an overdose in 2019. ROS: See above HPI for pertinent positives & negatives. A total of 10 systems reviewed and were otherwise negative. PAST MEDICAL HISTORY:See Below PAST SURGICAL HISTORY:See Below FAMILY HISTORY:See Below SOCIAL HISTORY:See Below HOME MEDICATIONS:See list ALLERGIES:See list VITALS:See Below PHYSICAL EXAMINATION: HEENT: Head - normocephalic and atraumatic. Pupils are equal, round, and reactive to light. Extraocular eye muscles are intact, and sclera are anicteric. Nose - moist nasal mucosa without discharge. Mouth - moist buccal mucosa. Oropharynx is nonerythematous and there is no tonsillar exudate or edema noted. Neck: Supple; no cervical lymphadenopathy Heart: Regular rate and rhythm. There is a normal S1 and S2 with no murmurs, clicks, or gallops appreciated. Lungs: Clear to auscultation bilaterally with no wheezes, rales, or rhonchi. Abdomen: Soft, completely nontender, nondistended, with good bowel sounds. T here are no palpable pulsatile masses or hepatosplenomegaly. There is no guarding, rigidity, or rebound noted. Extremities: No evidence of cyanosis, clubbing, or edema. There are easily palpable peripheral pulses. Skin: warm and dry with good turgor and no rashes. Psych: Normal affect. The patient seems slightly depressed. She denies any recent suicide attempts but has had fleeting suicidal thoughts ED COURSE: Times/Reassessments: 535: The patient was evaluated in room A6. A complete history and physical was performed. Previous electronic medical records were reviewed. Laboratory studies were drawn as above. The patient was felt to be medically cleared at this time and was ordered her normal morning medications. Ludivina Zamorano DO Past Med/Surg History Medical History (Updated 01/06/22 @ 08:21 by Ludivina Zamorano DO) Acute hyperglycemia Acute hypokalemia Diabetes mellitus type 2, uncontrolled Eczema Graves disease High serum chloride Hypertension Hyperthyroidism Intertrigo Knee pain, bilateral Leukocytosis Leukocytosis PPD positive 19 mm in 2011- DEANNA->( [place] 9 months ) no longer PPD need Suicidal ideations Suicidal ideations Suicidal ideations UTI (urinary tract infection) Vaginitis Vitamin D deficiency Surgical History Hx of bilateral breast reduction surgery Hx of tonsillectomy Family History Father FHx: ischemic heart disease before age 50 Cardiac disorder Unknown Ovarian cancer Uncle Prostate cancer Grandfather Myocardial infarction Grandmother Cancer Denies family history of Breast cancer Social History Smoking Status: Former smoker Hx Alcohol Use: No Hx Substance Use: No Preferred Language: Australian Communication Ability: Effective Visual Impairment: No Limitations 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: Normal Security Sme Required: No Beliefs That Will Affect Care: Mormonism marital status: Single Current Living Situation: Personal Care Facility Current Living Situation Comment: [facility] current occupational status: unemployed Feels Safe at Home: Yes Dental Care, Regularly: Yes Physical Activity Frequency: 1-2 Times per Week Seatbelt Use: always Assistive Devices: Glasses Allergies Allergies Allergy/AdvReac Type Severity Reaction Status Date / Time Sqjeuyk-CWJ-StA Reductase Allergy Mild Unknown Verified 11/15/21 12:59 Inhibitor [Ftesdlj-Rdm-Amh Reductase Inhibitor] sulfamethoxazole Allergy Mild Difficulty Verified 11/15/21 12:59 [From Bactrim] Breathing trimethoprim [From Bactrim] Allergy Mild Difficulty Verified 11/15/21 12:59 Breathing Home Meds Home Medications Medication Instructions Recorded Confirmed hydroxyzine HCl 25 mg tablet 25 mg PO DAILY PRN 10/08/21 01/06/22 risperidone 1 mg tablet (Risperdal) 1 mg PO DAILY PRN 11/15/21 01/06/22 insulin regular hum U-500 conc 55 unit SUBCUT BID 01/06/22 01/06/22 (Humulin R U-500 (Conc) Insulin Kwikpen) zolpidem 10 mg tablet (Ambien) 10 mg PO HS PRN 01/06/22 01/06/22 Previous Rx's Medication Instructions Recorded lancets 30 gauge (ReadyLance #200 ea 03/17/21 Safety Lancets) blood sugar diagnostic (OneTouch #200 ea 08/24/21 Ultra Test) benztropine 1 mg tablet 1 mg PO HS 30 Days #30 tab 09/14/21 olanzapine 10 mg tablet 10 mg PO HS 30 Days #30 tab 09/14/21 olanzapine 20 mg tablet 20 mg PO HS 30 Days #30 tab 09/14/21 olanzapine 5 mg tablet 5 mg PO DAILY 30 Days #30 tab 09/14/21 acetaminophen 325 mg tablet 325 mg PO QID PRN #360 tab 10/08/21 (Tylenol) aspirin 81 mg tablet,delayed 81 mg PO QAM #90 tab 10/08/21 release atorvastatin 80 mg tablet 80 mg PO HS #90 tab 10/08/21 cyanocobalamin (vitamin B-12) 1,000 mcg PO QAM #90 tab 10/08/21 1,000 mcg tablet (Vitamin B-12) ergocalciferol (vitamin D2) 1,250 50,000 unit PO WK #12 cap 10/08/21 mcg (50,000 unit) capsule (Vitamin D2) fenofibrate micronized 130 mg 130 mg PO QAM #90 cap 10/08/21 capsule ferrous sulfate 325 mg (65 mg 325 mg PO QAM #90 tab 10/08/21 iron) tablet hydrochlorothiazide 25 mg tablet 25 mg PO DAILY #90 tab 10/08/21 lisinopril 40 mg tablet 40 mg PO DAILY #90 tab 10/08/21 melatonin 5 mg capsule 5 mg PO HS PRN #90 cap 10/08/21 glipizide 10 mg tablet 10 mg PO BID 30 Days #60 tab 10/12/21 liraglutide 0.6 mg/0.1 mL (18 mg/3 1.8 mg SUBCUT DAILY 30 Days #9 ml 10/12/21 mL) subcutaneous pen injector (Enevate 3-Antione) methimazole 10 mg tablet 10 mg PO QAM 30 Days #30 tab 10/12/21 empagliflozin 10 mg tablet 10 mg PO QAM 30 Days #30 tab 10/13/21 (Jardiance) metformin 500 mg tablet,extended 500 mg PO BID 30 Days #60 tab 10/13/21 release 24 hr BD AutoShield Duo Pen Needle 30 #300 ea NS 12/03/21 gauge x 3/16" (pen needle,diabetic dual safty) Results & Data (ED) Vital Signs Vital Signs - 24 hr 01/06/22 05:15 01/06/22 06:00 01/06/22 07:59 Temperature 36.7 C 36.8 C Temperature Source Oral Oral Pulse Rate 74 Pulse Rate [Finger] 68 70 Respiratory Rate 18 18 18 Respiratory Effort / Characteristics Non-Labored Spontaneous Respiratory Depth Normal Respiratory Pattern Regular Blood Pressure 186/117 H Blood Pressure [Right Arm] 182/110 H 173/93 H Blood Pressure Mean 140 Blood Pressure Mean [Right Arm] 134 119 Blood Pressure Position [Right Arm] Sitting Pulse Oximetry 98 98 96 Oxygen Delivery Method Room Air Room Air Room Air Sepsis Recent Fever Within 48 Hours No Sepsis New/Unexplained Change in Mental Status N/A Sepsis Action Taken by Nursing No Action Required Laboratory Data Result diagrams: 01/06/22 05:48 01/06/22 05:48 Lab Results 01/06/22 01/06/22 01/06/22 Range/Units 05:23 05:23 05:48 WBC 10.15 (4.8-10.8) K/uL RBC 4.94 (4.2-5.4) M/uL Hgb 13.4 (12.0-16.0) g/dL Hct 40.2 (37-47) % MCV 81.4 (80-100) fL MCH 27.1 (25-34) pg MCHC 33.3 (32-36) g/dL RDW Std Deviation 42.3 (36.4-46.3) fL RDW Coeff of Abel 14.2 (11.5-14.5) % Plt Count 337 (130-400) K/uL MPV 8.7 (7.4-10.4) fL Immature Gran % (Auto) 0.5 % Neut % (Auto) 59.7 % Lymph % (Auto) 29.2 % [place] % (Auto) 7.9 % Eos % (Auto) 2.2 % Baso % (Auto) 0.5 % Neut # (Auto) 6.07 (1.4-6.5) K/uL Lymph # (Auto) 2.96 (1.2-3.4) K/uL [place] # (Auto) 0.80 H (0.11-0.59) K/uL Eos # (Auto) 0.22 (0-0.5) K/uL Baso # (Auto) 0.05 (0-0.2) K/uL Immature Gran # (Auto) 0.05 H (0.00-0.02) K/uL Sodium (136-145) mmol/L Potassium (3.5-5.1) mmol/L Chloride (98-107) mmol/L Carbon Dioxide (21-32) mmol/L Anion Gap (3-11) BUN (6-23) mg/dl Creatinine (0.6-1.2) mg/dl Est Cr Clr Drug Dosing ml/min Est GFR ( Amer) ml/min Est GFR (Non-Af Amer) ml/min BUN/Creatinine Ratio (10-20) Glucose (70-99(Fasting)) mg/dl Calcium (8.5-10.1) mg/dl Total Bilirubin (0.2-1.0) mg/dl AST (13-39) U/L ALT (7-52) U/L Alkaline Phosphatase (34-104) U/L Total Protein (6.0-8.3) gm/dl Albumin (3.4-5.0) gm/dl Globulin (2.5-4.0) gm/dl Albumin/Globulin Ratio (0.9-2) TSH (0.300-4.500) uIu/ml Urine Color Yellow Urine Appearance Clear (Clear) Urine pH 7.0 (4.5-7.5) Ur Specific [place] 1.033 H (1.000-1.030) Urine Protein Negative (Negative) Urine Glucose (UA) 3+ H (Negative) Urine Ketones Negative (Negative) Urine Blood Negative (Negative) Urine Nitrite Negative (Negative) Urine Bilirubin Negative (Negative) Urine Urobilinogen Negative (Negative) Ur Leukocyte Esterase Negative (Negative) Salicylates (3.0-30) mg/dl Urine Opiates Screen Neg (Neg) Ur Methadone, Qual Neg (Neg) Acetaminophen (10-30) ug/ml Urine Barbiturates Neg (Neg) Ur Phencyclidine (PCP) Neg (Neg) U Amphetamin/Meth Scrn Neg (Neg) MDMA (Ecstasy) Screen Neg (Neg) U Benzodiazepines Scrn Neg (Neg) Ur Cocaine Metabolite Neg (Neg) U Marijuana (THC) Screen Neg (Neg) Ethyl Alcohol mg/dL (<10.0) mg/dl SARS-CoV-2, RNA, NAAT (NEGATIVE) 01/06/22 01/06/22 01/06/22 Range/Units 05:48 05:48 05:48 WBC (4.8-10.8) K/uL RBC (4.2-5.4) M/uL Hgb (12.0-16.0) g/dL Hct (37-47) % MCV (80-100) fL MCH (25-34) pg MCHC (32-36) g/dL RDW Std Deviation (36.4-46.3) fL RDW Coeff of Abel (11.5-14.5) % Plt Count (130-400) K/uL MPV (7.4-10.4) fL Immature Gran % (Auto) % Neut % (Auto) % Lymph % (Auto) % [place] % (Auto) % Eos % (Auto) % Baso % (Auto) % Neut # (Auto) (1.4-6.5) K/uL Lymph # (Auto) (1.2-3.4) K/uL [place] # (Auto) (0.11-0.59) K/uL Eos # (Auto) (0-0.5) K/uL Baso # (Auto) (0-0.2) K/uL Immature Gran # (Auto) (0.00-0.02) K/uL Sodium 137 (136-145) mmol/L Potassium 3.6 (3.5-5.1) mmol/L Chloride 106 (98-107) mmol/L Carbon Dioxide 22 (21-32) mmol/L Anion Gap 9 (3-11) BUN 13 (6-23) mg/dl Creatinine 0.66 (0.6-1.2) mg/dl Est Cr Clr Drug Dosing 100.7 ml/min Est GFR ( Amer) 114.5 ml/min Est GFR (Non-Af Amer) 98.8 ml/min BUN/Creatinine Ratio 19.7 (10-20) Glucose 294 H (70-99(Fasting)) mg/dl Calcium 8.7 (8.5-10.1) mg/dl Total Bilirubin 0.3 (0.2-1.0) mg/dl AST 10 L (13-39) U/L ALT 19 (7-52) U/L Alkaline Phosphatase 87 (34-104) U/L Total Protein 6.1 (6.0-8.3) gm/dl Albumin 3.8 (3.4-5.0) gm/dl Globulin 2.3 L (2.5-4.0) gm/dl Albumin/Globulin Ratio 1.7 (0.9-2) TSH 0.928 (0.300-4.500) uIu/ml Urine Color Urine Appearance (Clear) Urine pH (4.5-7.5) Ur Specific [place] (1.000-1.030) Urine Protein (Negative) Urine Glucose (UA) (Negative) Urine Ketones (Negative) Urine Blood (Negative) Urine Nitrite (Negative) Urine Bilirubin (Negative) Urine Urobilinogen (Negative) Ur Leukocyte Esterase (Negative) Salicylates < 3.0 L (3.0-30) mg/dl Urine Opiates Screen (Neg) Ur Methadone, Qual (Neg) Acetaminophen < 3 L (10-30) ug/ml Urine Barbiturates (Neg) Ur Phencyclidine (PCP) (Neg) U Amphetamin/Meth Scrn (Neg) MDMA (Ecstasy) Screen (Neg) U Benzodiazepines Scrn (Neg) Ur Cocaine Metabolite (Neg) U Marijuana (THC) Screen (Neg) Ethyl Alcohol mg/dL (<10.0) mg/dl SARS-CoV-2, RNA, NAAT (NEGATIVE) 01/06/22 01/06/22 Range/Units 05:48 05:54 WBC (4.8-10.8) K/uL RBC (4.2-5.4) M/uL Hgb (12.0-16.0) g/dL Hct (37-47) % MCV (80-100) fL MCH (25-34) pg MCHC (32-36) g/dL RDW Std Deviation (36.4-46.3) fL RDW Coeff of Abel (11.5-14.5) % Plt Count (130-400) K/uL MPV (7.4-10.4) fL Immature Gran % (Auto) % Neut % (Auto) % Lymph % (Auto) % [place] % (Auto) % Eos % (Auto) % Baso % (Auto) % Neut # (Auto) (1.4-6.5) K/uL Lymph # (Auto) (1.2-3.4) K/uL [place] # (Auto) (0.11-0.59) K/uL Eos # (Auto) (0-0.5) K/uL Baso # (Auto) (0-0.2) K/uL Immature Gran # (Auto) (0.00-0.02) K/uL Sodium (136-145) mmol/L Potassium (3.5-5.1) mmol/L Chloride (98-107) mmol/L Carbon Dioxide (21-32) mmol/L Anion Gap (3-11) BUN (6-23) mg/dl Creatinine (0.6-1.2) mg/dl Est Cr Clr Drug Dosing ml/min Est GFR ( Amer) ml/min Est GFR (Non-Af Amer) ml/min BUN/Creatinine Ratio (10-20) Glucose (70-99(Fasting)) mg/dl Calcium (8.5-10.1) mg/dl Total Bilirubin (0.2-1.0) mg/dl AST (13-39) U/L ALT (7-52) U/L Alkaline Phosphatase (34-104) U/L Total Protein (6.0-8.3) gm/dl Albumin (3.4-5.0) gm/dl Globulin (2.5-4.0) gm/dl Albumin/Globulin Ratio (0.9-2) TSH (0.300-4.500) uIu/ml Urine Color Urine Appearance (Clear) Urine pH (4.5-7.5) Ur Specific [place] (1.000-1.030) Urine Protein (Negative) Urine Glucose (UA) (Negative) Urine Ketones (Negative) Urine Blood (Negative) Urine Nitrite (Negative) Urine Bilirubin (Negative) Urine Urobilinogen (Negative) Ur Leukocyte Esterase (Negative) Salicylates (3.0-30) mg/dl Urine Opiates Screen (Neg) Ur Methadone, Qual (Neg) Acetaminophen (10-30) ug/ml Urine Barbiturates (Neg) Ur Phencyclidine (PCP) (Neg) U Amphetamin/Meth Scrn (Neg) MDMA (Ecstasy) Screen (Neg) U Benzodiazepines Scrn (Neg) Ur Cocaine Metabolite (Neg) U Marijuana (THC) Screen (Neg) Ethyl Alcohol mg/dL < 10.0 (<10.0) mg/dl SARS-CoV-2, RNA, NAAT NEGATIVE (NEGATIVE) Discharge Plan Visit Data Chief Complaint: Mental Health Evaluation ED Provider: Ludivina Zamorano Discharge Problem: Mood disorder Forms Stand Alone Forms: [facility], Suicide Prevention Resources Prescriptions Prescriptions: No Action (DME) lancets [ReadyLance Safety Lancets] 30 gauge misc See Rx Instructions .Route Qty: 200 RF: 3 (DME) OneTouch Ultra Test Strip See Rx Instructions .Route Qty: 200 RF: 3 melatonin 5 mg capsule 5 mg PO HS PRN (Reason: insomnia) Qty: 90 RF: 3 lisinopril 40 mg tablet 40 mg PO DAILY Qty: 90 RF: 3 hydrochlorothiazide 25 mg tablet 25 mg PO DAILY Qty: 90 RF: 3 cyanocobalamin (vitamin B-12) [Vitamin B-12] 1,000 mcg tablet 1,000 mcg PO QAM Qty: 90 RF: 3 ergocalciferol (vitamin D2) [Vitamin D2] 1,250 mcg (50,000 unit) capsule 50,000 unit PO WK Qty: 12 RF: 3 fenofibrate micronized 130 mg capsule 130 mg PO QAM Qty: 90 RF: 3 ferrous sulfate 325 mg (65 mg iron) tablet 325 mg PO QAM Qty: 90 RF: 3 atorvastatin 80 mg tablet 80 mg PO HS Qty: 90 RF: 3 aspirin 81 mg tablet,delayed release (DR/EC) 81 mg PO QAM Qty: 90 RF: 3 acetaminophen [Tylenol] 325 mg tablet 325 mg PO QID PRN (Reason: pain) Qty: 360 RF: 1 hydroxyzine HCl 25 mg tablet 25 mg PO DAILY PRN (Reason: Anxiety) RF: 0 glipizide 10 mg tablet 10 mg PO BID 30 Days Qty: 60 RF: 2 Victoza 3-Antione 0.6 mg/0.1 mL (18 mg/3 mL) pen injector 1.8 mg subcut DAILY 30 Days Qty: 9 RF: 2 methimazole 10 mg tablet 10 mg PO QAM 30 Days Qty: 30 RF: 2 Jardiance 10 mg tablet 10 mg PO QAM 30 Days Qty: 30 RF: 2 metformin 500 mg tablet extended release 24 hr 500 mg PO BID 30 Days Qty: 60 RF: 2 (DME) BD AutoShield Duo Pen Needle 30 gauge x 3/16" needle .ROUTE .MEDSUPPLY Qty: 300 RF: 3 risperidone [Risperdal] 1 mg tablet 1 mg PO DAILY PRN (Reason: severe anxiety) RF: 0 zolpidem [Ambien] 10 mg tablet 10 mg PO HS PRN (Reason: Insomnia) RF: 0 Humulin R U-500 (Conc) Kwikpen 500 unit/mL (3 mL) insulin pen 55 unit subcut BID RF: 0 benztropine 1 mg tablet 1 mg PO HS 30 Days Qty: 30 RF: 0 olanzapine 5 mg Tablet 5 mg PO DAILY 30 Days Qty: 30 RF: 0 olanzapine 10 mg Tablet 10 mg PO HS 30 Days Qty: 30 RF: 0 olanzapine 20 mg Tablet 20 mg PO HS 30 Days Qty: 30 RF: 0 Referrals Referrals: Dillon Rogers MD [Primary Care Provider] -
[2022-01-06 06:10] LABS: Basophils # (auto) 0.05 K/uL (0-0.2); Basophils % (auto) 0.5 %; Eosinophils # (auto) 0.22 K/uL (0-0.5); Eosinophils % (auto) 2.2 %; Hematocrit (blood only) 40.2 % (37-47); Hemoglobin 13.4 g/dL (12.0-16.0); Immature Granulocytes # (auto) 0.05 K/uL (0.00-0.02); Immature Granulocytes % (auto) 0.5 %; Lymphocytes # (auto) 2.96 K/uL (1.2-3.4); Lymphocytes % (auto) 29.2 %; Mean Corpuscular Hemoglobin 27.1 pg (25-34); Mean Corpuscular Hgb Conc 33.3 g/dL (32-36); Mean Corpuscular Volume 81.4 fL (80-100); Mean Platelet Volume 8.7 fL (7.4-10.4); Monocytes % (auto) 7.9 %; Neutrophils # (auto) 6.07 K/uL (1.4-6.5); Neutrophils % (auto) 59.7 %; Platelet Count 337 K/uL (130-400); RDW Coefficient of Variation 14.2 % (11.5-14.5); RDW Standard Deviation 42.3 fL (36.4-46.3); Red Blood Count 4.94 M/uL (4.2-5.4); White Blood Count 10.15 K/uL (4.8-10.8)
[2022-01-06 06:27] LABS: Acetaminophen < 3 ug/ml (10-30); Salicylate < 3.0 mg/dl (3.0-30)
[2022-01-06 06:32] LABS: Albumin Globulin Ratio 1.7 (0.9-2); Albumin Level 3.8 gm/dl (3.4-5.0); BUN Creatinine Ratio 19.7 (10-20); Bilirubin,Total 0.3 mg/dl (0.2-1.0); Calcium 8.7 mg/dl (8.5-10.1); Creatinine Clr Calc Pharmacy 100.7 ml/min; Est GFR (African American) 114.5 ml/min; Est GFR (Non-African American) 98.8 ml/min; Globulin 2.3 gm/dl (2.5-4.0); Potassium 3.6 mmol/L (3.5-5.1); Total Protein 6.1 gm/dl (6.0-8.3)
[2022-01-06 06:37] LABS: Appearance Urine Clear (Clear); Bilirubin Urine Negative (Negative); Blood Urine Negative (Negative); Color Urine Yellow; Glucose Urine UA 3+ (Negative); Ketones Urine Negative (Negative); Leukocyte Esterase Urine Negative (Negative); Nitrite Urine Negative (Negative); Protein Urine Negative (Negative); Specific Gravity Urine 1.033 (1.000-1.030); Urobilinogen Urine Negative (Negative)
[2022-01-06 07:12] LABS: Amphetamines+Metham, Urine Neg (Neg); Barbiturates, Urine Neg (Neg); Benzodiazepine, Urine Neg (Neg); Cocaine, Urine Neg (Neg); MDMA (Ecstacy), Urine Neg (Neg); Methadone, Urine Neg (Neg); Opiate, Urine Neg (Neg); Phencyclidine, Urine Neg (Neg)
[2022-01-06] MEDS ORDERED: ACETAMINOPHEN 325 MG TAB PO PRN ×2 (07:34→10:14)
[2022-01-06] MEDS ORDERED: hydrOXYzine HCl 25 MG TAB PO PRN ×2 (07:34→10:14)
[2022-01-06] MEDS ORDERED: PHARMACY GLYCEMIC MGMT CONSULT PRN ×2 (07:58→10:27)
[2022-01-06] MEDS ORDERED: INSULIN ASPART PER UNIT SC SCH (08:15)
[2022-01-06] MEDS ORDERED: CYANOCOBALAMIN (B-12) 500 MCG TABLET PO SCH (09:00)
[2022-01-06] MEDS ORDERED: NON-FORMULARY MEDICATION (Ferrous Sulfate 325 mg (65 mg iron) tablet) PO SCH (09:00)
[2022-01-06] MEDS ORDERED: FERROUS SULFATE 325 MG TAB PO SCH (09:00)
[2022-01-06] MEDS ORDERED: methIMAzole 5 MG TABLET PO SCH (09:00)
[2022-01-06] MEDS ORDERED: hydroCHLOROthiazide 25 MG TAB PO SCH (09:00)
[2022-01-06] MEDS ORDERED: FENOFIBRATE MICRONIZED 130 MG PO SCH (09:00)
[2022-01-06] MEDS ORDERED: lisinopril 40 MG TAB PO SCH (09:00)
[2022-01-06] MEDS ORDERED: NON-FORMULARY MEDICATION (Insulin Regular Hum U-500 Conc [Humulin R U-500 (Conc) Kwikpen] SQ SCH (09:00)
[2022-01-06] MEDS ORDERED: [UNRECOGNIZED DRUG - OTHER] PO SCH (09:00)
[2022-01-06] MEDS ORDERED: glipiZIDE 5 MG TAB PO SCH (09:00)
[2022-01-06] MEDS ORDERED: metFORMIN HCL ER 500 MG TABCR PO SCH ×2 (09:00)
[2022-01-06] MEDS ORDERED: INSULIN DETEMIR SC SCH (09:00)
[2022-01-06] MEDS ORDERED: OLANZapine 5 MG TABLET PO SCH ×2 (09:00→15:00)
[2022-01-06] MEDS ORDERED: ASPIRIN 81 MG ECTAB PO SCH (09:00)
[2022-01-06] MEDS ORDERED: CYANOCOBALAMIN 1000 MCG PO SCH (09:00)
--- NOTE | 2022-01-06 09:28 | Pharmacy Report ---
Pharmacy Glycemic Short Note 2 - Date of Service January 06, 2022 - Glycemic Short BSG Results (Last 24 hours): 01/06/22 01/06/22 05:48 08:19 Glucose 294 H POC Glucose 286 H OUTPATIENT ANTIDIABETIC REGIMEN: * Humulin-R U-500 - 55 units SC BIDM * Metformin ER 500 mg PO BIDM * Empagliflozin 10 mg PO daily * Glipizide 10 mg PO BIDM * Victoza 1.8 mg SC daily HbA1c: 8.1% (09/28/21), patient follows with [facility] ASSESSMENT: * SULTANA is a 56 year old female well known to pharmacy glycemic service * Per most recent [place] endocrinology note, patient was switched from Levemir to U- 500 insulin October 2021 * Based on substantial past inpatient BSG data and inherent high-risk nature of U-500 insulin, will utilize SC basal/bolus in form of Levemir and Novolog while inpatient * Will initiate same regimen that provided good glycemic control in August 2021 (see below) PLAN FOR INPATIENT GLYCEMIC CONTROL: * Metformin ER 500 mg PO BIDM * Hold other outpatient oral diabetes medications * Basal insulin * Levemir 115 units SC daily * Levemir 75 units SC HS * Bolus insulin * NovoLog per scale ACHS or Q6hrs while NPO * Goal Range: Low 110 mg/dL - High 140 mg/dL * Correction Factor: 10 mg/dL/unit * Nutritional / Prandial insulin per carb ratio of 1 unit per 3.5 grams CHO consumed
[2022-01-06] MEDS ORDERED: MAGNESIUM HYDROXIDE SUSP 30 ML UDC PO PRN (10:14)
[2022-01-06] MEDS ORDERED: SODIUM CHLORIDE 0.65% NA SOLN 45 ML (OCEAN) PRN (10:14)
[2022-01-06] MEDS ORDERED: ALUMINUM/MAGNESIUM SUSP 30 ML UDC PO PRN (10:14)
[2022-01-06] MEDS ORDERED: BISMUTH SUBSALICYLATE LIQD 236 ML PO PRN (10:14)
--- NOTE | 2022-01-06 10:57 | History & Physical ---
Date of Service January 06, 2022 Impression / Recommendations Impression 56 yo female with a hx of schizophrenia, longstanding delusions of persecution, intermittent SI during times of change, currently adjustment issues to [facility]. Historically MNPR due to paranoia. (1) Schizophrenia: Schizophrenia type: paranoid schizophrenia Qualified Code(s): F20.0 - Paranoid schizophrenia (2) Diabetes mellitus type 2, uncontrolled: Glycemic state: with hyperglycemia Qualified Code(s): E11.65 - Type 2 diabetes mellitus with hyperglycemia (3) Dyslipidemia: (4) Hypertension: The patient was admitted to the [facility] ([facility] unit) on q15 min checks (behavioral with suicide precautions) for safety. The patient will participate in group, recreational, and milieu therapies and will be offered additional individual and family sessions as clinically appropriate. Inventory Assets Strengths: intelligent, typically med compliant Needs: address roommate concerns, identify new CM Suicide Risk Level Suicide Risk Level: Moderate (q15 min suicide checks) Suicide Risk Level Comments: no active intent, contracts for safety on unit Risk Factors Assessment : Yes Do You Have Access To A Gun?: No Health Problems: Yes Mental Health Diagnoses: Yes Substance Use Disorders: No Previous Attempt: Yes Previous Psychiatric Hospitalization: Yes Protective Factors Assessment Employed: No Supportive Family: Yes Psychiatric History Identifying Data AMADO OLSON is a 56-year-old F who currently lives in [facility], has a history of schizophrenia, and was admitted on 01/06/22 10:14 on a 201 voluntary commitment for SI. Chief Complaint "as usual I feel I'm the cause of everything in the news from kids burning to caterina salvador's ". History of Present Illness States that she still feels isolated in her current [facility] as far from mother who is elderly and having a harder time visiting. Her sleep has been disrupted for the last few weeks as her roommate has "dementia and is up at night rummaging through my things." She has requested a room change. Her clinical case manager from [facility] is also leaving. She stated that when she becomes overwhelmed with her delusions she starts to feel suicidal "Like I don't deserve to live or that I need to be punished." She denied having a specific plan to harm herself but "you know I'm diabetic and when I got upset yesterday I couldn't take my blood pressure pil ls." Past Psychiatric History Previous Psych History: Previous Psych History: long history of schizophrenia since college with multiple inpatient admissions, has been living in group homes for the last few years, has outpatient services Current Psychiatric Diagnosis: Schizophrenia Outpatient Services: psychiatry ([facility] Wagner) and [facility] and case management services Previous Psych Admissions: multiple, last at [facility] in Aug 2021 (prior to that January 2021), has also been hospitalized at the 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 Current Psychiatric Diagnosis: Schizophrenia Do You Have Access To A Gun?: No Allergies Allergy/AdvReac Type Severity Reaction Status Date / Time [id number]-QaI Reductase Allergy Mild Unknown Verified 01/06/22 08:40 Inhibitor [Wtegnuh-Uif-Riy Reductase Inhibitor] sulfamethoxazole Allergy Mild Difficulty Verified 01/06/22 08:39 [From Bactrim] Breathing trimethoprim [From Bactrim] Allergy Mild Difficulty Verified 01/06/22 08:39 Breathing Home Medications Medication Instructions Recorded Confirmed Type lancets 30 gauge (ReadyLance #200 ea 03/17/21 11/15/21 Rx Safety Lancets) blood sugar diagnostic (OneTouch #200 ea 08/24/21 11/15/21 Rx Ultra Test) benztropine 1 mg tablet 1 mg PO HS 30 Days #30 tab 09/14/21 01/06/22 Rx olanzapine 10 mg tablet 10 mg PO HS 30 Days #30 tab 09/14/21 01/06/22 Rx olanzapine 20 mg tablet 20 mg PO HS 30 Days #30 tab 09/14/21 01/06/22 Rx olanzapine 5 mg tablet 5 mg PO DAILY 30 Days #30 tab 09/14/21 01/06/22 Rx acetaminophen 325 mg tablet 325 mg PO QID PRN #360 tab 10/08/21 01/06/22 Rx (Tylenol) aspirin 81 mg tablet,delayed 81 mg PO QAM #90 tab 10/08/21 01/06/22 Rx release atorvastatin 80 mg tablet 80 mg PO HS #90 tab 10/08/21 01/06/22 Rx cyanocobalamin (vitamin B-12) 1,000 mcg PO QAM #90 tab 10/08/21 01/06/22 Rx 1,000 mcg tablet (Vitamin B-12) ergocalciferol (vitamin D2) 1,250 50,000 unit PO WK #12 cap 10/08/21 01/06/22 Rx mcg (50,000 unit) capsule (Vitamin D2) fenofibrate micronized 130 mg 130 mg PO QAM #90 cap 10/08/21 01/06/22 Rx capsule ferrous sulfate 325 mg (65 mg 325 mg PO QAM #90 tab 10/08/21 01/06/22 Rx iron) tablet hydrochlorothiazide 25 mg tablet 25 mg PO DAILY #90 tab 10/08/21 01/06/22 Rx hydroxyzine HCl 25 mg tablet 25 mg PO DAILY PRN 10/08/21 01/06/22 History lisinopril 40 mg tablet 40 mg PO DAILY #90 tab 10/08/21 01/06/22 Rx melatonin 5 mg capsule 5 mg PO HS PRN #90 cap 10/08/21 01/06/22 Rx glipizide 10 mg tablet 10 mg PO BID 30 Days #60 tab 10/12/21 01/06/22 Rx liraglutide 0.6 mg/0.1 mL (18 mg/3 1.8 mg SUBCUT DAILY 30 Days #9 ml 10/12/21 01/06/22 Rx mL) subcutaneous pen injector (DeliverCareRx 3-Antione) methimazole 10 mg tablet 10 mg PO QAM 30 Days #30 tab 10/12/21 01/06/22 Rx empagliflozin 10 mg tablet 10 mg PO QAM 30 Days #30 tab 10/13/21 01/06/22 Rx (Jardiance) metformin 500 mg tablet,extended 500 mg PO BID 30 Days #60 tab 10/13/21 01/06/22 Rx release 24 hr risperidone 1 mg tablet (Risperdal) 1 mg PO DAILY PRN 11/15/21 01/06/22 History BD AutoShield Duo Pen Needle 30 #300 ea NS 12/03/21 Rx gauge x 3/16" (pen needle,diabetic dual safty) insulin regular hum U-500 conc 55 unit SUBCUT BID 01/06/22 01/06/22 History (Humulin R U-500 (Conc) Insulin Kwikpen) zolpidem 10 mg tablet (Ambien) 10 mg PO HS PRN 01/06/22 01/06/22 History Family History Family History of: Doesn't Know Alcohol History Hx of Alcohol Use Over the Past 12 Months: No Smoking Use Smoking Status: Former smoker Substance History Hx of Prescription Med Misuse Over the Past 12 Months: No Hx of Over the Counter Med Misuse Over the Past 12 Months: No Hx of Inhalent Misuse Over the Past 12 Months: No Hx of Organic Substance Use Over the Past 12 Months: No Hx of Illegal Substances/Street Drug Use Over Past 12 Months: No Problems as a Result of Past Substance Use: None Identified Personal History Living Arrangements: Assisted Living Born In: [place]. 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[employer]) Beliefs That Will Affect Care: Yarsani Hx Legal Problems: No Hx Traumatic Life Events: No Patient History Medical History Acute hyperglycemia Acute hypokalemia Diabetes mellitus type 2, uncontrolled Eczema Graves disease High serum chloride Hypertension Hyperthyroidism Intertrigo Knee pain, bilateral Leukocytosis Leukocytosis PPD positive 19 mm in 2011- DEANNA->( Tx 9 months ) no longer PPD need Suicidal ideations Suicidal ideations Suicidal ideations UTI (urinary tract infection) Vaginitis Vitamin D deficiency Surgical History Hx of bilateral breast reduction surgery Hx of tonsillectomy Family History Father FHx: ischemic heart disease before age 50 Cardiac disorder Unknown Ovarian cancer Uncle Prostate cancer Grandfather Myocardial infarction Grandmother Cancer Denies family history of Breast cancer Social History Smoking Status: Former smoker Hx Alcohol Use: No Hx Substance Use: No Preferred Language: Croatian Communication Ability: Effective Visual Impairment: No Limitations 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: Normal Customer Trainer Required: No Beliefs That Will Affect Care: Yarsani marital status: Single Current Living Situation: Personal Care Facility Current Living Situation Comment: [facility] current occupational status: unemployed Feels Safe at Home: Yes Dental Care, Regularly: Yes Physical Activity Frequency: 1-2 Times per Week Seatbelt Use: always Assistive Devices: Glasses Review of Systems Review of Systems: All systems reviewed & are unremarkable except as noted in HPI & below Physical Exam Psychiatric: Orientation: alert and oriented x 3 Apperance: appropriately dressed and appropriately groomed Eye Contact: good eye contact Motor Behavior: no abnormal motor movements Speech: normal rate/rhythm/volume of speech Affect: + depressed affect Mood: + depressed mood Thought Process: goal directed thought process Thought Content: + paranoid and + delusions Suicidal Thoughts: denies suicidal plan and denies suicidal intent; + reports suicidal thoughts Homicidal Thoughts: denies homicidal thoughts Hallucinations: no auditory hallucinations and no visual hallucinations Cognition: attention grossly intact and language grossly intact Estimated Intelligence: consistent with education level Insight: + limited insight Judgement: + limited judgement Vital Signs (Past 24 Hours): Last Vital Signs Temp 36.8 C 01/06/22 07:59 Pulse 79 01/06/22 10:16 Resp 18 01/06/22 10:16 BP 170/102 H 01/06/22 10:16 Pulse Ox 96 01/06/22 10:16 Exam Statement: A physical exam was performed in the ED by Dr. Zamorano for the purposes of medical clearance. I accept that physical as correct and adequate for the purposes of the inpatient physical exam. Results & Data ([facility]) Laboratory Results Laboratory Results - last 24 hr 01/06/22 01/06/22 01/06/22 05:23 05:23 05:48 WBC 10.15 RBC 4.94 Hgb 13.4 Hct 40.2 MCV 81.4 MCH 27.1 MCHC 33.3 RDW Std Deviation 42.3 RDW Coeff of Abel 14.2 Plt Count 337 MPV 8.7 Immature Gran % (Auto) 0.5 Neut % (Auto) 59.7 Lymph % (Auto) 29.2 Imperial % (Auto) 7.9 Eos % (Auto) 2.2 Baso % (Auto) 0.5 Neut # (Auto) 6.07 Lymph # (Auto) 2.96 Imperial # (Auto) 0.80 H Eos # (Auto) 0.22 Baso # (Auto) 0.05 Immature Gran # (Auto) 0.05 H Sodium Potassium Chloride Carbon Dioxide Anion Gap BUN Creatinine Est Cr Clr Drug Dosing Est GFR ( Amer) Est GFR (Non-Af Amer) BUN/Creatinine Ratio Glucose POC Glucose Calcium Total Bilirubin AST ALT Alkaline Phosphatase Total Protein Albumin Globulin Albumin/Globulin Ratio TSH Urine Color Yellow Urine Appearance Clear Urine pH 7.0 Ur Specific Paris 1.033 H Urine Protein Negative Urine Glucose (UA) 3+ H Urine Ketones Negative Urine Blood Negative Urine Nitrite Negative Urine Bilirubin Negative Urine Urobilinogen Negative Ur Leukocyte Esterase Negative Salicylates Urine Opiates Screen Neg Ur Methadone, Qual Neg Acetaminophen Urine Barbiturates Neg Ur Phencyclidine (PCP) Neg U Amphetamin/Meth Scrn Neg MDMA (Ecstasy) Screen Neg U Benzodiazepines Scrn Neg Ur Cocaine Metabolite Neg U Marijuana (THC) Screen Neg Ethyl Alcohol mg/dL SARS-CoV-2, RNA, NAAT 01/06/22 01/06/22 01/06/22 05:48 05:48 05:48 WBC RBC Hgb Hct MCV MCH MCHC RDW Std Deviation RDW Coeff of Abel Plt Count MPV Immature Gran % (Auto) Neut % (Auto) Lymph % (Auto) Imperial % (Auto) Eos % (Auto) Baso % (Auto) Neut # (Auto) Lymph # (Auto) Imperial # (Auto) Eos # (Auto) Baso # (Auto) Immature Gran # (Auto) Sodium 137 Potassium 3.6 Chloride 106 Carbon Dioxide 22 Anion Gap 9 BUN 13 Creatinine 0.66 Est Cr Clr Drug Dosing 100.7 Est GFR ( Amer) 114.5 Est GFR (Non-Af Amer) 98.8 BUN/Creatinine Ratio 19.7 Glucose 294 H POC Glucose Calcium 8.7 Total Bilirubin 0.3 AST 10 L ALT 19 Alkaline Phosphatase 87 Total Protein 6.1 Albumin 3.8 Globulin 2.3 L Albumin/Globulin Ratio 1.7 TSH 0.928 Urine Color Urine Appearance Urine pH Ur Specific Paris Urine Protein Urine Glucose (UA) Urine Ketones Urine Blood Urine Nitrite Urine Bilirubin Urine Urobilinogen Ur Leukocyte Esterase Salicylates < 3.0 L Urine Opiates Screen Ur Methadone, Qual Acetaminophen < 3 L Urine Barbiturates Ur Phencyclidine (PCP) U Amphetamin/Meth Scrn MDMA (Ecstasy) Screen U Benzodiazepines Scrn Ur Cocaine Metabolite U Marijuana (THC) Screen Ethyl Alcohol mg/dL SARS-CoV-2, RNA, NAAT 01/06/22 01/06/2201/06/22 05:48 05:54 08:19 WBC RBC Hgb Hct MCV MCH MCHC RDW Std Deviation RDW Coeff of Abel Plt Count MPV Immature Gran % (Auto) Neut % (Auto) Lymph % (Auto) Imperial % (Auto) Eos % (Auto) Baso % (Auto) Neut # (Auto) Lymph # (Auto) Imperial # (Auto) Eos # (Auto) Baso # (Auto) Immature Gran # (Auto) Sodium Potassium Chloride Carbon Dioxide Anion Gap BUN Creatinine Est Cr Clr Drug Dosing Est GFR ( Amer) Est GFR (Non-Af Amer) BUN/Creatinine Ratio Glucose POC Glucose 286 H Calcium Total Bilirubin AST ALT Alkaline Phosphatase Total Protein Albumin Globulin Albumin/Globulin Ratio TSH Urine Color Urine Appearance Urine pH Ur Specific [place] Urine Protein Urine Glucose (UA) Urine Ketones Urine Blood Urine Nitrite Urine Bilirubin Urine Urobilinogen Ur Leukocyte Esterase Salicylates Urine Opiates Screen Ur Methadone, Qual Acetaminophen Urine Barbiturates Ur Phencyclidine (PCP) U Amphetamin/Meth Scrn MDMA (Ecstasy) Screen U Benzodiazepines Scrn Ur Cocaine Metabolite U Marijuana (THC) Screen Ethyl Alcohol mg/dL < 10.0 SARS-CoV-2, RNA, NAAT NEGATIVE Current Inpatient Medications Current Inpatient Medications: Current Inpatient Medications Acetaminophen (Acetaminophen 325 Mg Tab) 650 mg PO Q4H PRN PRN Reason: Headache or Minor Fever Stop: 02/05/22 10:13 Al Hydrox/Mg Hydrox/Simethicone (Aluminum/Magnesium Susp 30 Ml Udc) 30 ml PO Q4H PRN PRN Reason: GI Upset Stop: 02/05/22 10:13 Aspirin (Aspirin 81 Mg Ectab) 81 mg PO QAM ANNAMARIA Stop: 02/06/22 08:59 Atorvastatin Calcium (Atorvastatin 40 Mg Tab) 80 mg PO HS ANNAMARIA Stop: 02/05/22 20:59 Benztropine Mesylate (Benztropine Mesylate 1 Mg Tab) 1 mg PO HS ANNAMARIA Stop: 02/05/22 20:59 Bismuth Subsalicylate (Bismuth Subsalicylate Liqd 236 Ml) 15 ml PO PRN PRN PRN Reason: Loose Stool Stop: 02/05/22 10:13 Cyanocobalamin (Cyanocobalamin (B-12) 500 Mcg Tablet) 1,000 mcg PO QAM ANNAMARIA Stop: 02/06/22 08:59 Ergocalciferol (Ergocalciferol 50,000 Units 1250 Mcg Cap) 50,000 units PO WK [facility] Stop: 02/05/22 07:44 Ferrous Sulfate (Ferrous Sulfate 325 Mg Tab) 325 mg PO QAM [facility] Stop: 02/06/22 08:59 Hydrochlorothiazide (Hydrochlorothiazide 25 Mg Tab) 25 mg PO QAM [facility] Stop: 02/06/22 08:59 Hydroxyzine HCl (Hydroxyzine Hcl 25 Mg Tab) 50 mg PO HSZ PRN PRN Reason: Insomnia Stop: 02/05/22 10:13 Hydroxyzine HCl (Hydroxyzine Hcl 25 Mg Tab) 25 mg PO Q4H PRN PRN Reason: Anxiety Stop: 02/05/22 10:13 Lisinopril (Lisinopril 40 Mg Tab) 40 mg PO QAM [facility] Stop: 02/06/22 08:59 Magnesium Hydroxide (Magnesium Hydroxide Susp 30 Ml Udc) 30 ml PO DAILY PRN PRN Reason: Constipation Stop: 02/05/22 10:13 Metformin HCl (Metformin Hcl Er 500 Mg Tabcr) 500 mg PO BIDM [facility] Stop: 02/05/22 16:59 Methimazole (Methimazole 5 Mg Tablet) 10 mg PO QAM [facility] Stop: 02/06/22 08:59 Miscellaneous Information (Pharmacy Glycemic Mgmt Consult) 1 ea N/A UD PRN PRN Reason: Consult Stop: 02/05/22 10:26 Non-Formulary Medication (Fenofibrate Micronized) 130 mg PO DAILY [facility] Stop: 02/06/22 08:59 Olanzapine (Olanzapine 10 Mg Tab) 30 mg PO HS [facility] Stop: 02/05/22 20:59 Olanzapine (Olanzapine 5 Mg Tablet) 5 mg PO DAILY@1500 [facility] Stop: 02/05/22 14:59 Sodium Chloride (Sodium Chloride 0.65% Na Soln 45 Ml ([place])) 1 - 2 sprays NA PRN PRN PRN Reason: Nasal Dryness/Congestion Stop: 02/05/22 10:13
[2022-01-06] MEDS ORDERED: GLUCOSE 40% GEL 15 GM TUBE PO PRN (11:15)
[2022-01-06] MEDS ORDERED: CARBOHYDRATES FOR HYPOGLYCEMIA PO PRN (11:15)
[2022-01-06] MEDS ORDERED: GLUCOSE 10 TABS/TUBE PO PRN (11:15)
[2022-01-06] MEDS ORDERED: DEXTROSE 50% 50 ML SYRINGE IV PRN (11:15)
[2022-01-06] MEDS ORDERED: GLUCAGON FOR INJ 1 MG VIAL IM PRN (11:15)
[2022-01-06] MEDS: INSULIN ASPART PER UNIT SC SCH ×3 (12:56→21:06)
[2022-01-06] MEDS: OLANZapine 5 MG TABLET PO SCH (14:27)
[2022-01-06] MEDS: metFORMIN HCL ER 500 MG TABCR PO SCH (17:17)
[2022-01-06] MEDS ORDERED: BENZTROPINE MESYLATE 1 MG TAB PO SCH (21:00)
[2022-01-06] MEDS ORDERED: OLANZapine 20 MG TABLET PO SCH (21:00)
[2022-01-06] MEDS ORDERED: OLANZapine 10 MG TAB PO SCH (21:00)
[2022-01-06] MEDS ORDERED: ATORVASTATIN 40 MG TAB PO SCH (21:00)
[2022-01-06] MEDS: OLANZapine 10 MG TAB PO SCH (21:18)
[2022-01-06] MEDS: ATORVASTATIN 40 MG TAB PO SCH (21:19)
[2022-01-06] MEDS: BENZTROPINE MESYLATE 1 MG TAB PO SCH (21:20)
[2022-01-06] MEDS: INSULIN DETEMIR SC SCH (21:22)
[2022-01-07] MEDS: CYANOCOBALAMIN (B-12) 500 MCG TABLET PO SCH (08:37)
[2022-01-07] MEDS: FENOFIBRATE NANOCRYSTALLIZED 48 MG TABLET PO SCH (08:37)
[2022-01-07] MEDS: ASPIRIN 81 MG ECTAB PO SCH (08:37)
[2022-01-07] MEDS: lisinopril 40 MG TAB PO SCH (08:38)
[2022-01-07] MEDS: hydroCHLOROthiazide 25 MG TAB PO SCH (08:38)
[2022-01-07] MEDS: FERROUS SULFATE 325 MG TAB PO SCH (08:38)
[2022-01-07] MEDS: methIMAzole 5 MG TABLET PO SCH (08:39)
[2022-01-07] MEDS: metFORMIN HCL ER 500 MG TABCR PO SCH ×2 (08:39→17:46)
[2022-01-07] MEDS: INSULIN DETEMIR SC SCH ×2 (08:53→21:30)
[2022-01-07] MEDS: INSULIN ASPART PER UNIT SC SCH ×4 (08:54→21:35)
--- NOTE | 2022-01-07 09:10 | Psychiatric Progress Note ---
Date of Service January 07, 2022 Impression / Recommendations Impression 56 yo female with a hx of schizophrenia, longstanding delusions of persecution, intermittent SI during times of change, currently adjustment issues to [facility]. Historically MNPR due to paranoia. 01/07/22: settling into unit routine, needs redirection about realistic housing goals. (1) Schizophrenia: (2) Diabetes mellitus type 2, uncontrolled: (3) Dyslipidemia: (4) Hypertension: 01/07/22: continue current meds and treatment plan. 01/06/22: The patient was admitted to the [facility] ([facility] mental health unit) on q15 min checks (behavioral with suicide precautions) for safety. The patient will participate in group, recreational, and milieu therapies and will be offered additional individual and family sessions as clinically appropriate. Inventory Assets Strengths: intelligent, typically med compliant Needs: address roommate concerns, identify new CM Suicide Risk Level Suicide Risk Level: Moderate (q15 min suicide checks) Suicide Risk Level Comments: no active intent, contracts for safety on unit Risk Factors Assessment : Yes Do You Have Access To A Gun?: No Health Problems: Yes Mental Health Diagnoses: Yes Substance Use Disorders: No Previous Attempt: Yes Previous Psychiatric Hospitalization: Yes Protective Factors Assessment Employed: No Supportive Family: Yes Interval History Identifying Information AMADO OLSON is a 56-year-old F who currently lives in [facility], has a history of schizophrenia, and was admitted on 01/06/22 10:14 on a 201 voluntary commitment for SI. Chief Complaint "I was restless but it will be OK". Review of Systems Sleep Information Total Hours of Sleep: 7 Meal Information Percent Meal Consumed - Lunch: 100 Percent Meal Consumed - Dinner: 100 Subjective Subjective Patient was seen & assessed and interval progress reviewed with treatment team. Cooperative but delusions. gluc checks 175 and 223, fasting labs this am. Rated mood as 6 and restless last pm. Physical Exam Psychiatric Orientation: alert and oriented x 3 Apperance: appropriately dressed and appropriately groomed Eye Contact: good eye contact Motor Behavior: no abnormal motor movements Speech: normal rate/rhythm/volume of speech Affect: + depressed affect Mood: + depressed mood Thought Process: goal directed thought process Thought Content: + paranoid and + delusions Suicidal Thoughts: denies suicidal thoughts, denies suicidal plan and denies suicidal intent Homicidal Thoughts: denies homicidal thoughts Hallucinations: no auditory hallucinations and no visual hallucinations Cognition: attention grossly intact and language grossly intact Estimated Intelligence: consistent with education level Insight: + limited insight Judgement: + limited judgement Vital Signs (Past 24 Hours) Last Vital Signs Temp 36.5 C 01/07/22 06:16 Pulse 69 01/07/22 06:16 Resp 16 01/07/22 06:16 BP 150/74 H 01/07/22 06:16 Pulse Ox 96 01/06/22 10:16 Results & Data ([facility] [place]) Laboratory Results Laboratory Results - last 24 hr 01/06/22 01/06/22 01/06/22 12:30 17:12 21:05 POC Glucose 180 H 175 H 223 H Estimat Average Glucose Hemoglobin A1c 01/07/22 01/07/22 05:48 08:27 POC Glucose 203 H Estimat Average Glucose Pending Hemoglobin A1c Pending Current Inpatient Medications Current Inpatient Medications: Current Inpatient Medications Acetaminophen (Acetaminophen 325 Mg Tab) 650 mg PO Q4H PRN PRN Reason: Headache or Minor Fever Stop: 02/05/22 10:13 Al Hydrox/Mg Hydrox/Simethicone (Aluminum/Magnesium Susp 30 Ml Udc) 30 ml PO Q4H PRN PRN Reason: GI Upset Stop: 02/05/22 10:13 Aspirin (Aspirin 81 Mg Ectab) 81 mg PO [facility] Stop: 02/06/22 08:59 Last Admin: 01/07/22 08:37 Dose: 81 mg Documented by: Atorvastatin Calcium (Atorvastatin 40 Mg Tab) 80 mg PO [facility] Stop: 02/05/22 20:59 Last Admin: 01/06/22 21:19 Dose: 80 mg Documented by: Benztropine Mesylate (Benztropine Mesylate 1 Mg Tab) 1 mg PO [facility] Stop: 02/05/22 20:59 Last Admin: 01/06/22 21:20 Dose: 1 mg Documented by: Bismuth Subsalicylate (Bismuth Subsalicylate Liqd 236 Ml) 15 ml PO PRN PRN PRN Reason: Loose Stool Stop: 02/05/22 10:13 Cyanocobalamin (Cyanocobalamin (B-12) 500 Mcg Tablet) 1,000 mcg PO [facility] Stop: 02/06/22 08:59 Last Admin: 01/07/22 08:37 Dose: 1,000 mcg Documented by: Dextrose (Dextrose 50% 50 Ml Syringe) 25 - 50 ml IV UD PRN; Protocol PRN Reason: Hypoglycemia Protocol Stop: 02/05/22 11:14 Ergocalciferol (Ergocalciferol 50,000 Units 1250 Mcg Cap) 50,000 units PO Tu@0900 [facility] Stop: 02/10/22 08:59 Fenofibrate (Fenofibrate Nanocrystallized 48 Mg Tablet) 96 mg PO DAILY [facility] Stop: 02/06/22 08:59 Last Admin: 01/07/22 08:37 Dose: 96 mg Documented by: Ferrous Sulfate (Ferrous Sulfate 325 Mg Tab) 325 mg PO QAM [facility] Stop: 02/06/22 08:59 Last Admin: 01/07/22 08:38 Dose: 325 mg Documented by: Glucagon (Glucagon For Inj 1 Mg Vial) 1 mg IM UD PRN; Protocol PRN Reason: Hypoglycemia Protocol Stop: 02/05/22 11:14 Glucose (Glucose 40% Gel 15 Gm Tube) 15 - 30 gm PO UD PRN; Protocol PRN Reason: Hypoglycemia Protocol Stop: 02/05/22 11:14 Glucose (Glucose 10 Tabs/Tube) 4 - 8 tabs PO UD PRN; Protocol PRN Reason: Hypoglycemia Protocol Stop: 02/05/22 11:14 Hydrochlorothiazide (Hydrochlorothiazide 25 Mg Tab) 25 mg PO QAM [facility] Stop: 02/06/22 08:59 Last Admin: 01/07/22 08:38 Dose: 25 mg Documented by: Hydroxyzine HCl (Hydroxyzine Hcl 25 Mg Tab) 50 mg PO HSZ PRN PRN Reason: Insomnia Stop: 02/05/22 10:13 Hydroxyzine HCl (Hydroxyzine Hcl 25 Mg Tab) 25 mg PO Q4H PRN PRN Reason: Anxiety Stop: 02/05/22 10:13 Insulin Aspart (Insulin Aspart Per Unit) 0 units SC ACHS [facility] Stop: 02/05/22 11:59 Last Admin: 01/07/22 08:54 Dose: 20 units Documented by: Insulin Detemir (Insulin Detemir) 115 units SC DAILY [facility] Stop: 02/06/22 08:59 Last Admin: 01/07/22 08:53 Dose: 115 units Documented by: Insulin Detemir (Insulin Detemir) 75 units SC HS [facility] Stop: 02/05/22 21:59 Last Admin: 01/06/22 21:22 Dose: 75 units Documented by: Lisinopril (Lisinopril 40 Mg Tab) 40 mg PO QAM [facility] Stop: 02/06/22 08:59 Last Admin: 01/07/22 08:38 Dose: 40 mg Documented by: Magnesium Hydroxide (Magnesium Hydroxide Susp 30 Ml Udc) 30 ml PO DAILY PRN PRN Reason: Constipation Stop: 02/05/22 10:13 Metformin HCl (Metformin Hcl Er 500 Mg Tabcr) 500 mg PO BIDM [facility] Stop: 02/05/22 16:59 Last Admin: 01/07/22 08:39 Dose: 500 mg Documented by: Methimazole (Methimazole 5 Mg Tablet) 10 mg PO QAM [facility] Stop: 02/06/22 08:59 Last Admin: 01/07/22 08:39 Dose: 10 mg Documented by: Miscellaneous (Carbohydrates For Hypoglycemia ) 15 - 30 gm PO UD PRN PRN Reason: Hypoglycemia Treatment Stop: 02/05/22 11:14 Miscellaneous Information (Pharmacy Glycemic Mgmt Consult) 1 ea N/A UD PRN PRN Reason: Consult Stop: 02/05/22 10:26 Olanzapine (Olanzapine 10 Mg Tab) 30 mg PO HS [facility] Stop: 02/05/22 20:59 Last Admin: 01/06/22 21:18 Dose: 30 mg Documented by: Olanzapine (Olanzapine 5 Mg Tablet) 5 mg PO DAILY@1500 [facility] Stop: 02/05/22 14:59 Last Admin: 01/06/22 14:27 Dose: Not Given Documented by: Sodium Chloride (Sodium Chloride 0.65% Na Soln 45 Ml ([place])) 1 - 2 sprays NA PRN PRN PRN Reason: Nasal Dryness/Congestion Stop: 02/05/22 10:13 Mental Health & Subst Abuse Tx Psychiatrist Name of Psychiatrist: Kalee Lawson Psychiatrist's Psychiatric Appointment Comment: [id number] Therapist Name of Therapist: Irma Therapist's Therapy Appointment Comment: [id number] [facility] [place] Central Sterile Supply Technician Name of Central Sterile Supply Technician: Shweta Taylor [facility] Post Discharge Appointments Primary Care Physician Name Of Family Doctor: BLAZE Reece Primary Care Provider Appointment Comment: Sheldon De León [place], [place] (1) Diabetes mellitus type 2, uncontrolled Glycemic state: with hyperglycemia Qualified Code(s): E11.65 - Type 2 diabetes mellitus with hyperglycemia (2) Schizophrenia Schizophrenia type: paranoid schizophrenia Qualified Code(s): F20.0 - Paranoid schizophrenia
[2022-01-07 11:04] LABS: Estimated Average Glucose 214 mg/dl; Hemoglobin A1C 9.1 % (4.5-5.6)
[2022-01-07] MEDS: OLANZapine 5 MG TABLET PO SCH (14:32)
[2022-01-07] MEDS: OLANZapine 10 MG TAB PO SCH (21:48)
[2022-01-07] MEDS: ATORVASTATIN 40 MG TAB PO SCH (21:49)
[2022-01-07] MEDS: hydrOXYzine HCl 25 MG TAB PO PRN (21:49)
[2022-01-07] MEDS: BENZTROPINE MESYLATE 1 MG TAB PO SCH (21:49)
[2022-01-08 08:02] LABS: Cholesterol 262 mg/dl (0-200); HDL Cholesterol 39 mg/dl; Triglycerides 525 mg/dl (0-150)
[2022-01-08 08:08] LABS: Chol HDL Ratio 6.7 (0-5)
[2022-01-08] MEDS: FENOFIBRATE NANOCRYSTALLIZED 48 MG TABLET PO SCH (09:01)
[2022-01-08] MEDS: metFORMIN HCL ER 500 MG TABCR PO SCH ×2 (09:01→17:11)
[2022-01-08] MEDS: FERROUS SULFATE 325 MG TAB PO SCH (09:01)
[2022-01-08] MEDS: CYANOCOBALAMIN (B-12) 500 MCG TABLET PO SCH (09:01)
[2022-01-08] MEDS: hydroCHLOROthiazide 25 MG TAB PO SCH (09:01)
[2022-01-08] MEDS: ASPIRIN 81 MG ECTAB PO SCH (09:01)
[2022-01-08] MEDS: lisinopril 40 MG TAB PO SCH (09:01)
[2022-01-08] MEDS: INSULIN ASPART PER UNIT SC SCH ×4 (09:13→21:32)
[2022-01-08] MEDS: INSULIN DETEMIR SC SCH ×2 (09:15→21:42)
--- NOTE | 2022-01-08 09:16 | Psychiatric Progress Note ---
Date of Service January 08, 2022 Impression / Recommendations Impression 56 yo female with a hx of schizophrenia, longstanding delusions of persecution, intermittent SI during times of change, currently adjustment issues to [facility]. The patient is deemed unstable and requires psychiatric hospitalization for diagnostic clarification, safety and stabilization, medication management and development of further coping skills. MNPR due to paranoia. 01/08/22: Reviewed interim progress per Dr. John's notes. Taking her medications and tolerating without side effects. Continuing to focus on coping strategies to manage auditory hallucinations and distress from changes at personal long-term. (1) Schizophrenia: (2) Diabetes mellitus type 2, uncontrolled: (3) Dyslipidemia: (4) Hypertension: 01/08/22: continue current medications and tx plan. Working on strategies to help her cope with transitions and environmental events that can lead to distress. 01/07/22: continue current meds and treatment plan. 01/06/22: The patient was admitted to the [facility] ([facility] health unit) on q15 min checks (behavioral with suicide precautions) for safety. The patient will participate in group, recreational, and milieu therapies and will be offered additional individual and family sessions as clinically appropriate. Inventory Assets Strengths: intelligent, typically med compliant Needs: address roommate concerns, identify new CM Suicide Risk Level Suicide Risk Level: Moderate (q15 min suicide checks) Suicide Risk Level Comments: denies current SI and contracts for safety on unit but depressed mood Risk Factors Assessment : Yes Do You Have Access To A Gun?: No Health Problems: Yes Mental Health Diagnoses: Yes Substance Use Disorders: No Previous Attempt: Yes Previous Psychiatric Hospitalization: Yes Protective Factors Assessment Employed: No Supportive Family: Yes Interval History Identifying Information AMADO OLSON is a 56-year-old F who currently lives in [facility], has a history of schizophrenia, and was admitted on 01/06/22 10:14 on a 201 voluntary commitment for SI. Chief Complaint "I'm ok". Review of Systems Sleep Information Total Hours of Sleep: 6.75 Meal Information Percent Meal Consumed - Breakfast: 90 Percent Meal Consumed - Lunch: 100 Percent Meal Consumed - Dinner: 100 Subjective Subjective Patient was seen & assessed and interval progress reviewed with treatment team nursing and social work. Here due to increased distress from roommate at [facility]. She notes she wishes she didn't need to come to the hospital but didn't f eel she could cope outside the hospital setting. Doesn't desire any medication changes. Feels the voices are more like "thoughts" and that she's working to find ways to "combat them". Remains reluctant to take insulin at times due to concerns it leads to a sense of "jumping" in her feet and stomach for 20minutes after administration. Reviewed importance of insulin and she agrees to continue with it, feels jumpiness sensation is tolerable and manageable by lying down briefly after insulin dose. Physical Exam Psychiatric Orientation: alert and oriented x 3 Apperance: appropriately dressed and appropriately groomed Eye Contact: good eye contact Motor Behavior: no abnormal motor movements Speech: normal rate/rhythm/volume of speech Affect: + constricted affect Mood: + depressed mood Thought Process: goal directed thought process Thought Content: + paranoid and + delusions Suicidal Thoughts: denies suicidal thoughts, denies suicidal plan and denies suicidal intent Homicidal Thoughts: denies homicidal thoughts Hallucinations: + auditory hallucinations; no visual hallucinations Cognition: attention grossly intact and language grossly intact Estimated Intelligence: consistent with education level Insight: + limited insight Judgement: + limited judgement Vital Signs (Past 24 Hours) Last Vital Signs Temp 36.5 C 01/08/22 06:36 Pulse 77 01/08/22 06:37 Resp 18 01/08/22 06:36 BP 160/104 H 01/08/22 06:37 Pulse Ox 96 01/06/22 10:16 Results & Data ([facility]) Laboratory Results Laboratory Results - last 24 hr 01/07/22 01/07/22 01/07/22 05:48 12:12 17:09 POC Glucose 166 H 129 H Estimat Average Glucose 214 Hemoglobin A1c 9.1 H Triglycerides Cholesterol LDL Cholesterol, Calc VLDL Cholesterol, Calc HDL Cholesterol Cholesterol/HDL Ratio 01/07/22 01/08/22 01/08/22 21:22 06:48 08:38 POC Glucose 246 H 177 H Estimat Average Glucose Hemoglobin A1c Triglycerides 525 H Cholesterol 262 H LDL Cholesterol, Calc TNP VLDL Cholesterol, Calc TNP HDL Cholesterol 39 Cholesterol/HDL Ratio 6.7 H Current Inpatient Medications Current Inpatient Medications: Current Inpatient Medications Acetaminophen (Acetaminophen 325 Mg Tab) 650 mg PO Q4H PRN PRN Reason: Headache or Minor Fever Stop: 02/05/22 10:13 Al Hydrox/Mg Hydrox/Simethicone (Aluminum/Magnesium Susp 30 Ml Udc) 30 ml PO Q4H PRN PRN Reason: GI Upset Stop: 02/05/22 10:13 Aspirin (Aspirin 81 Mg Ectab) 81 mg PO QAM [facility] Stop: 02/06/22 08:59 Last Admin: 01/08/22 09:01 Dose: 81 mg Documented by: Atorvastatin Calcium (Atorvastatin 40 Mg Tab) 80 mg PO HS [facility] Stop: 02/05/22 20:59 Last Admin: 01/07/22 21:49 Dose: 80 mg Documented by: Benztropine Mesylate (Benztropine Mesylate 1 Mg Tab) 1 mg PO HS [facility] Stop: 02/05/22 20:59 Last Admin: 01/07/22 21:49 Dose: 1 mg Documented by: Bismuth Subsalicylate (Bismuth Subsalicylate Liqd 236 Ml) 15 ml PO PRN PRN PRN Reason: Loose Stool Stop: 02/05/22 10:13 Cyanocobalamin (Cyanocobalamin (B-12) 500 Mcg Tablet) 1,000 mcg PO QAM [facility] Stop: 02/06/22 08:59 Last Admin: 01/08/22 09:01 Dose: 1,000 mcg Documented by: Dextrose (Dextrose 50% 50 Ml Syringe) 25 - 50 ml IV UD PRN; Protocol PRN Reason: Hypoglycemia Protocol Stop: 02/05/22 11:14 Ergocalciferol (Ergocalciferol 50,000 Units 1250 Mcg Cap) 50,000 units PO Tu@0900 [facility] Stop: 02/10/22 08:59 Fenofibrate (Fenofibrate Nanocrystallized 48 Mg Tablet) 96 mg PO DAILY [facility] Stop: 02/06/22 08:59 Last Admin: 01/08/22 09:01 Dose: 96 mg Documented by: Ferrous Sulfate (Ferrous Sulfate 325 Mg Tab) 325 mg PO QAM [facility] Stop: 02/06/22 08:59 Last Admin: 01/08/22 09:01 Dose: 325 mg Documented by: Glucagon (Glucagon For Inj 1 Mg Vial) 1 mg IM UD PRN; Protocol PRN Reason: Hypoglycemia Protocol Stop: 02/05/22 11:14 Glucose (Glucose 40% Gel 15 Gm Tube) 15 - 30 gm PO UD PRN; Protocol PRN Reason: Hypoglycemia Protocol Stop: 02/05/22 11:14 Glucose (Glucose 10 Tabs/Tube) 4 - 8 tabs PO UD PRN; Protocol PRN Reason: Hypoglycemia Protocol Stop: 02/05/22 11:14 Hydrochlorothiazide (Hydrochlorothiazide 25 Mg Tab) 25 mg PO QAM [facility] Stop: 02/06/22 08:59 Last Admin: 01/08/22 09:01 Dose: 25 mg Documented by: Hydroxyzine HCl (Hydroxyzine Hcl 25 Mg Tab) 50 mg PO HSZ PRN PRN Reason: Insomnia Stop: 02/05/22 10:13 Last Admin: 01/07/22 21:49 Dose: 50 mg Documented by: Hydroxyzine HCl (Hydroxyzine Hcl 25 Mg Tab) 25 mg PO Q4H PRN PRN Reason: Anxiety Stop: 02/05/22 10:13 Insulin Aspart (Insulin Aspart Per Unit) 0 units SC ACHS [facility] Stop: 02/05/22 11:59 Last Admin: 01/07/22 21:35 Dose: 11 units Documented by: Insulin Detemir (Insulin Detemir) 115 units SC DAILY [facility] Stop: 02/06/22 08:59 Last Admin: 01/07/22 08:53 Dose: 115 units Documented by: Insulin Detemir (Insulin Detemir) 75 units SC HS [facility] Stop: 02/05/22 21:59 Last Admin: 01/07/22 21:30 Dose: 75 units Documented by: Lisinopril (Lisinopril 40 Mg Tab) 40 mg PO QAM [facility] Stop: 02/06/22 08:59 Last Admin: 01/08/22 09:01 Dose: 40 mg Documented by: Magnesium Hydroxide (Magnesium Hydroxide Susp 30 Ml Udc) 30 ml PO DAILY PRN PRN Reason: Constipation Stop: 02/05/22 10:13 Metformin HCl (Metformin Hcl Er 500 Mg Tabcr) 500 mg PO BIDM [facility] Stop: 02/05/22 16:59 Last Admin: 01/08/22 09:01 Dose: 500 mg Documented by: Methimazole (Methimazole 5 Mg Tablet) 10 mg PO QAM [facility] Stop: 02/06/22 08:59 Last Admin: 01/07/22 08:39 Dose: 10 mg Documented by: Miscellaneous (Carbohydrates For Hypoglycemia ) 15 - 30 gm PO UD PRN PRN Reason: Hypoglycemia Treatment Stop: 02/05/22 11:14 Miscellaneous Information (Pharmacy Glycemic Mgmt Consult) 1 ea N/A UD PRN PRN Reason: Consult Stop: 02/05/22 10:26 Olanzapine (Olanzapine 10 Mg Tab) 30 mg PO HS [facility] Stop: 02/05/22 20:59 Last Admin: 01/07/22 21:48 Dose: 30 mg Documented by: Olanzapine (Olanzapine 5 Mg Tablet) 5 mg PO DAILY@1500 [facility] Stop: 02/05/22 14:59 Last Admin: 01/07/22 14:32 Dose: 5 mg Documented by: Sodium Chloride (Sodium Chloride 0.65% Na Soln 45 Ml ([place])) 1 - 2 sprays NA PRN PRN PRN Reason: Nasal Dryness/Congestion Stop: 02/05/22 10:13 Mental Health & Subst Abuse Tx Psychiatrist Name of Psychiatrist: Kalee Lux Psychiatrist's Date of Appointment with Psychiatrist: 01/31/22 Time of Appointment with Psychiatrist: 10:20am (arrive 10:05am) Psychiatric Appointment Comment: [id number] Therapist Name of Therapist: Kalee Stephen Therapist's Date of Therapist Appointment: 01/13/22 Time of Therapist Appointment: 11:00am Therapy Appointment Comment: [id number] [facility] [place] Bradley Wood Mechanist Name of Wood Mechanist: JONO Freeman (new CM will be Chantel) Phone Number for Wood Mechanist: [phone] Date of Appointment with Wood Mechanist: 01/18/22 Time of Appointment with Wood Mechanist: 10am Case Management Appointment Comment: [facility] Post Discharge Appointments Primary Care Physician Name Of Family Doctor: BLAZE Reece Primary Care Provider Appointment Comment: Sheldon De León [place], [place] Contact Information Discharge Discharge Address[address] [address] [place] [address] (1) Diabetes mellitus type 2, uncontrolled Glycemic state: with hyperglycemia Qualified Code(s): E11.65 - Type 2 diabetes mellitus with hyperglycemia (2) Schizophrenia Schizophrenia type: paranoid schizophrenia Qualified Code(s): F20.0 - Paranoid schizophrenia
[2022-01-08] MEDS: methIMAzole 5 MG TABLET PO SCH (09:20)
[2022-01-08] MEDS: OLANZapine 5 MG TABLET PO SCH (14:51)
[2022-01-08] MEDS: ATORVASTATIN 40 MG TAB PO SCH (21:33)
[2022-01-08] MEDS: OLANZapine 10 MG TAB PO SCH (21:34)
[2022-01-08] MEDS: BENZTROPINE MESYLATE 1 MG TAB PO SCH (21:36)
[2022-01-09] MEDS: ASPIRIN 81 MG ECTAB PO SCH (08:54)
[2022-01-09] MEDS: CYANOCOBALAMIN (B-12) 500 MCG TABLET PO SCH (08:55)
[2022-01-09] MEDS: hydroCHLOROthiazide 25 MG TAB PO SCH (08:55)
[2022-01-09] MEDS: FERROUS SULFATE 325 MG TAB PO SCH (08:55)
[2022-01-09] MEDS: FENOFIBRATE NANOCRYSTALLIZED 48 MG TABLET PO SCH (08:55)
[2022-01-09] MEDS: methIMAzole 5 MG TABLET PO SCH (08:56)
[2022-01-09] MEDS: lisinopril 40 MG TAB PO SCH (08:56)
[2022-01-09] MEDS: metFORMIN HCL ER 500 MG TABCR PO SCH ×2 (08:56→17:40)
--- NOTE | 2022-01-09 08:56 | Psychiatric Progress Note ---
Date of Service January 09, 2022 Impression / Recommendations Impression 56 yo female with a hx of schizophrenia, longstanding delusions of persecution, intermittent SI during times of change, currently adjustment issues to [facility]. The patient is deemed unstable and requires psychiatric hospitalization for diagnostic clarification, safety and stabilization, medication management and development of further coping skills. MNPR due to paranoia. 01/09/22: More delusions about her insulin but took today. Continuing to focus on coping strategies to manage auditory hallucinations and distress from [facility]. (1) Schizophrenia: (2) Diabetes mellitus type 2, uncontrolled: (3) Dyslipidemia: (4) Hypertension: 01/09/22: continue current meds and tx plan. 01/08/22: continue current medications and tx plan. Working on strategies to help her cope with transitions and environmental events that can lead to distress. 01/07/22: continue current meds and treatment plan. 01/06/22: The patient was admitted to the [facility] ([facility]) on q15 min checks (behavioral with suicide precautions) for safety. The patient will participate in group, recreational, and milieu therapies and will be offered additional individual and family sessions as clinically appropriate. Inventory Assets Strengths: intelligent, typically med compliant Needs: address roommate concerns, identify new CM Suicide Risk Level Suicide Risk Level: Moderate (q15 min suicide checks) Suicide Risk Level Comments: denies current SI and contracts for safety on unit but depressed mood Risk Factors Assessment : Yes Do You Have Access To A Gun?: No Health Problems: Yes Mental Health Diagnoses: Yes Substance Use Disorders: No Previous Attempt: Yes Previous Psychiatric Hospitalization: Yes Protective Factors Assessment Employed: No Supportive Family: Yes Interval History Identifying Information AMADO OLSON is a 56-year-old F who currently lives in [place], has a history of schizophrenia, and was admitted on 01/06/22 10:14 on a 201 voluntary commitment for SI. Chief Complaint "I'm tired". Review of Systems Sleep Information Total Hours of Sleep: 6.5 Meal Information Percent Meal Consumed - Breakfast: 90 Percent Meal Consumed - Lunch: 90 Percent Meal Consumed - Dinner: 100 Subjective Subjective Patient was seen & assessed and interval progress reviewed with treatment team nursing and social work. Some difficulty falling asleep last night and an awakening. Last evening because fixated on ways she's been wronged and delusions about child being taken away and less redirectable. Refused evening insulin due to concerns it makes her feel "jumpy". Today reports her mood is "tired but ok". Notes that her "mood goes up and down". She denies SI stating "they're lessening". Notes she refused insulin because "my stomach was jumping" but took insulin this morning and had no side effects. Continues to feel her zyprexa works well for managing the voices. Physical Exam Psychiatric Orientation: alert and oriented x 3 Apperance: appropriately dressed and appropriately groomed Eye Contact: good eye contact Motor Behavior: no abnormal motor movements Speech: normal rate/rhythm/volume of speech Affect: + depressed affect and + constricted affect Mood: + depressed mood Thought Process: goal directed thought process Thought Content: + paranoid and + delusions Suicidal Thoughts: denies suicidal thoughts, denies suicidal plan and denies suicidal intent Homicidal Thoughts: denies homicidal thoughts Hallucinations: + auditory hallucinations; no visual hallucinations Cognition: attention grossly intact and language grossly intact Estimated Intelligence: consistent with education level Insight: + limited insight Judgement: + limited judgement Vital Signs (Past 24 Hours) Last Vital Signs Temp 36.8 C 01/09/22 06:44 Pulse 84 01/09/22 06:45 Resp 18 01/09/22 06:44 BP 112/74 01/09/22 06:45 Pulse Ox 96 01/06/22 10:16 Results & Data ([facility]) Laboratory Results Laboratory Results - last 24 hr 01/08/22 01/08/22 01/08/22 08:38 12:23 17:09 POC Glucose 177 H 200 H 200 H 01/08/22 01/09/22 21:08 08:28 POC Glucose 212 H 212 H Current Inpatient Medications Current Inpatient Medications: Current Inpatient Medications Acetaminophen (Acetaminophen 325 Mg Tab) 650 mg PO Q4H PRN PRN Reason: Headache or Minor Fever Stop: 02/05/22 10:13 Al Hydrox/Mg Hydrox/Simethicone (Aluminum/Magnesium Susp 30 Ml Udc) 30 ml PO Q4H PRN PRN Reason: GI Upset Stop: 02/05/22 10:13 Aspirin (Aspirin 81 Mg Ectab) 81 mg PO QAM [facility] Stop: 02/06/22 08:59 Last Admin: 01/08/22 09:01 Dose: 81 mg Documented by: Atorvastatin Calcium (Atorvastatin 40 Mg Tab) 80 mg PO HS [facility] Stop: 02/05/22 20:59 Last Admin: 01/08/22 21:33 Dose: 80 mg Documented by: Benztropine Mesylate (Benztropine Mesylate 1 Mg Tab) 1 mg PO HS [facility] Stop: 02/05/22 20:59 Last Admin: 01/08/22 21:36 Dose: 1 mg Documented by: Bismuth Subsalicylate (Bismuth Subsalicylate Liqd 236 Ml) 15 ml PO PRN PRN PRN Reason: Loose Stool Stop: 02/05/22 10:13 Cyanocobalamin (Cyanocobalamin (B-12) 500 Mcg Tablet) 1,000 mcg PO QAM [facility] Stop: 02/06/22 08:59 Last Admin: 01/08/22 09:01 Dose: 1,000 mcg Documented by: Dextrose (Dextrose 50% 50 Ml Syringe) 25 - 50 ml IV UD PRN; Protocol PRN Reason: Hypoglycemia Protocol Stop: 02/05/22 11:14 Ergocalciferol (Ergocalciferol 50,000 Units 1250 Mcg Cap) 50,000 units PO Tu@0900 [facility] Stop: 02/10/22 08:59 Fenofibrate (Fenofibrate Nanocrystallized 48 Mg Tablet) 96 mg PO DAILY [facility] Stop: 02/06/22 08:59 Last Admin: 01/08/22 09:01 Dose: 96 mg Documented by: Ferrous Sulfate (Ferrous Sulfate 325 Mg Tab) 325 mg PO QAM [facility] Stop: 02/06/22 08:59 Last Admin: 01/08/22 09:01 Dose: 325 mg Documented by: Glucagon (Glucagon For Inj 1 Mg Vial) 1 mg IM UD PRN; Protocol PRN Reason: Hypoglycemia Protocol Stop: 02/05/22 11:14 Glucose (Glucose 40% Gel 15 Gm Tube) 15 - 30 gm PO UD PRN; Protocol PRN Reason: Hypoglycemia Protocol Stop: 02/05/22 11:14 Glucose (Glucose 10 Tabs/Tube) 4 - 8 tabs PO UD PRN; Protocol PRN Reason: Hypoglycemia Protocol Stop: 02/05/22 11:14 Hydrochlorothiazide (Hydrochlorothiazide 25 Mg Tab) 25 mg PO QAM [facility] Stop: 02/06/22 08:59 Last Admin: 01/08/22 09:01 Dose: 25 mg Documented by: Hydroxyzine HCl (Hydroxyzine Hcl 25 Mg Tab) 50 mg PO HSZ PRN PRN Reason: Insomnia Stop: 02/05/22 10:13 Last Admin: 01/07/22 21:49 Dose: 50 mg Documented by: Hydroxyzine HCl (Hydroxyzine Hcl 25 Mg Tab) 25 mg PO Q4H PRN PRN Reason: Anxiety Stop: 02/05/22 10:13 Insulin Aspart (Insulin Aspart Per Unit) 0 units SC ACHS [facility] Stop: 02/05/22 11:59 Last Admin: 01/08/22 21:32 Dose: 8 units Documented by: Insulin Detemir (Insulin Detemir) 115 units SC DAILY [facility] Stop: 02/06/22 08:59 Last Admin: 01/08/22 09:15 Dose: 115 units Documented by: Insulin Detemir (Insulin Detemir) 75 units SC HS [facility] Stop: 02/05/22 21:59 Last Admin: 01/08/22 21:42 Dose: Not Given Documented by: Lisinopril (Lisinopril 40 Mg Tab) 40 mg PO QAM [facility] Stop: 02/06/22 08:59 Last Admin: 01/08/22 09:01 Dose: 40 mg Documented by: Magnesium Hydroxide (Magnesium Hydroxide Susp 30 Ml Udc) 30 ml PO DAILY PRN PRN Reason: Constipation Stop: 02/05/22 10:13 Metformin HCl (Metformin Hcl Er 500 Mg Tabcr) 500 mg PO BIDM [facility] Stop: 02/05/22 16:59 Last Admin: 01/08/22 17:11 Dose: 500 mg Documented by: Methimazole (Methimazole 5 Mg Tablet) 10 mg PO QAM [facility] Stop: 02/06/22 08:59 Last Admin: 01/08/22 09:20 Dose: 10 mg Documented by: Miscellaneous (Carbohydrates For Hypoglycemia ) 15 - 30 gm PO UD PRN PRN Reason: Hypoglycemia Treatment Stop: 02/05/22 11:14 Miscellaneous Information (Pharmacy Glycemic Mgmt Consult) 1 ea N/A UD PRN PRN Reason: Consult Stop: 02/05/22 10:26 Olanzapine (Olanzapine 10 Mg Tab) 30 mg PO HS [facility] Stop: 02/05/22 20:59 Last Admin: 01/08/22 21:34 Dose: 30 mg Documented by: Olanzapine (Olanzapine 5 Mg Tablet) 5 mg PO DAILY@1500 [facility] Stop: 02/05/22 14:59 Last Admin: 01/08/22 14:51 Dose: 5 mg Documented by: Sodium Chloride (Sodium Chloride 0.65% Na Soln 45 Ml ([place])) 1 - 2 sprays NA PRN PRN PRN Reason: Nasal Dryness/Congestion Stop: 02/05/22 10:13 Mental Health & Subst Abuse Tx Psychiatrist Name of Psychiatrist: Kalee Lux Psychiatrist's Date of Appointment with Psychiatrist: 01/31/22 Time of Appointment with Psychiatrist: 10:20am (arrive 10:05am) Psychiatric Appointment Comment: [id number] Therapist Name of Therapist: Kalee Chaves Therapist's Date of Therapist Appointment: 01/13/22 Time of Therapist Appointment: 11:00am Therapy Appointment Comment: [id number] [place] School Guard Name of School Guard: JONO Freeman (new CM will be Chantel) Phone Number for School Guard: [phone] Date of Appointment with School Guard: 01/18/22 Time of Appointment with School Guard: 10am Case Management Appointment [facility] Primary Care Physician Name Of Family Doctor: BLAZE Reece Primary Care Provider Appointment Comment: [address] [place], [place] Contact Information Discharge Discharge Address: [address] [place] [address] (1) Diabetes mellitus type 2, uncontrolled Glycemic state: with hyperglycemia Qualified Code(s): E11.65 - Type 2 diabetes mellitus with hyperglycemia (2) Schizophrenia Schizophrenia type: paranoid schizophrenia Qualified Code(s): F20.0 - Paranoid schizophrenia
[2022-01-09] MEDS: INSULIN ASPART PER UNIT SC SCH ×4 (09:09→21:46)
[2022-01-09] MEDS: INSULIN DETEMIR SC SCH (09:10)
--- NOTE | 2022-01-09 14:39 | Pharmacy Report ---
Pharmacy Glycemic Short Note 2 - Date of Service January 09, 2022 - Glycemic Short BSG Results (Last 24 hours): 01/08/22 01/08/22 01/09/22 17:09 21:08 08:28 POC Glucose 200 H 212 H 212 H 01/09/22 12:35 POC Glucose 160 H OUTPATIENT ANTIDIABETIC REGIMEN: * Humulin-R U-500 - 55 units SC BIDM * Metformin ER 500 mg PO BIDM * Empagliflozin 10 mg PO daily * Glipizide 10 mg PO BIDM * Victoza 1.8 mg SC daily HbA1c: 8.1% (09/28/21), patient follows with [facility] endocrinology ASSESSMENT: 01/09 * Patient received total of 187 units of insulin yesterday, of which 115 units were basal - PM Lantus dose of 75 units refused by patient * Fasting BSG similar to days prior ~212 mg/dL - I opted to scale back for PM basal dose slightly * No change in CF/CR 01/06 * UG is a 56 year old female well known to pharmacy glycemic service * Per most recent [facility] endocrinology note, patient was switched from Levemir to U- 500 insulin October 2021 * Based on substantial past inpatient BSG data and inherent high-risk nature of U-500 insulin, will utilize SC basal/bolus in form of Levemir and Novolog while inpatient * Will initiate same regimen that provided good glycemic control in August 2021 (see below) PLAN FOR INPATIENT GLYCEMIC CONTROL: * Metformin ER 500 mg PO BIDM * Hold other outpatient oral diabetes medications * Basal insulin * Levemir 115 units SC daily * Levemir 50 units SC HS * Bolus insulin * NovoLog per scale ACHS or Q6hrs while NPO * Goal Range: Low 110 mg/dL - High 140 mg/dL * Correction Factor: 10 mg/dL/unit * Nutritional / Prandial insulin per carb ratio of 1 unit per 3.5 grams CHO consumed
[2022-01-09] MEDS: OLANZapine 5 MG TABLET PO SCH (14:44)
[2022-01-09] MEDS: OLANZapine 10 MG TAB PO SCH (21:34)
[2022-01-09] MEDS: ATORVASTATIN 40 MG TAB PO SCH (21:34)
[2022-01-09] MEDS: BENZTROPINE MESYLATE 1 MG TAB PO SCH (21:35)
[2022-01-09] MEDS ORDERED: INSULIN DETEMIR SC SCH (22:00)
[2022-01-10] MEDS: CYANOCOBALAMIN (B-12) 500 MCG TABLET PO SCH (08:49)
[2022-01-10] MEDS: ASPIRIN 81 MG ECTAB PO SCH (08:49)
[2022-01-10] MEDS: FENOFIBRATE NANOCRYSTALLIZED 48 MG TABLET PO SCH (08:50)
[2022-01-10] MEDS: hydroCHLOROthiazide 25 MG TAB PO SCH (08:50)
[2022-01-10] MEDS: FERROUS SULFATE 325 MG TAB PO SCH (08:50)
--- NOTE | 2022-01-10 08:50 | Psychiatric Progress Note ---
Date of Service January 10, 2022 Impression / Recommendations Impression 56 yo female with a hx of schizophrenia, longstanding delusions of persecution, intermittent SI during times of change, currently adjustment issues to [facility]. The patient is deemed unstable and requires psychiatric hospitalization for diagnostic clarification, safety and stabilization, medication management and development of further coping skills. MNPR due to paranoia. 01/10/22: Adherent with medications and mood is improving, no SI. Continuing to focus on coping strategies to manage auditory hallucinations and distress from changes at personal [facility]. (1) Schizophrenia: (2) Diabetes mellitus type 2, uncontrolled: (3) Dyslipidemia: (4) Hypertension: 01/10/22: continue current meds and tx plan. Continuing to practice strategies to cope with transitions/stressors. 01/09/22: continue current meds and tx plan. 01/08/22: continue current medications and tx plan. Working on strategies to help her cope with transitions and environmental events that can lead to distress. 01/07/22: continue current meds and treatment plan. 01/06/22: The patient was admitted to the [facility] ([facility] unit) on q15 min checks (behavioral with suicide precautions) for safety. The patient will participate in group, recreational, and milieu therapies and will be offered additional individual and family sessions as clinically appropriate. Inventory Assets Strengths: intelligent, typically med compliant Needs: address roommate concerns, identify new CM Suicide Risk Level Suicide Risk Level: Moderate (q15 min suicide checks) Suicide Risk Level Comments: denies current SI and contracts for safety on unit but depressed mood Risk Factors Assessment : Yes Do You Have Access To A Gun?: No Health Problems: Yes Mental Health Diagnoses: Yes Substance Use Disorders: No Previous Attempt: Yes Previous Psychiatric Hospitalization: Yes Protective Factors Assessment Employed: No Supportive Family: Yes Interval History Identifying Information AMADO OLSON is a 56-year-old F who currently lives in [facility], has a history of schizophrenia, and was admitted on 01/06/22 10:14 on a 201 voluntary commitment for SI. Chief Complaint "I'm well". Review of Systems Sleep Information Total Hours of Sleep: 7 Meal Information Percent Meal Consumed - Breakfast: 100 Percent Meal Consumed - Lunch: 90 Percent Meal Consumed - Dinner: 100 Subjective Subjective Patient was seen & assessed and interval progress reviewed with treatment team nursing and social work. Adherent with medications including insulin yesterday and so far today. Did not attend groups last night. Today reports her mood is "well" and denies SI. She denies any medication side effects. Continues to have AH but feels these are lessening and that she can use coping skills to manage them. Denies any command AH. Slept well. Physical Exam Psychiatric Orientation: alert and oriented x 3 Apperance: appropriately dressed and appropriately groomed Eye Contact: good eye contact Motor Behavior: no abnormal motor movements Speech: normal rate/rhythm/volume of speech Affect: + constricted affect Mood: + depressed mood; no anxious mood Thought Process: goal directed thought process Thought Content: reality based without delusions Suicidal Thoughts: denies suicidal thoughts Homicidal Thoughts: denies homicidal thoughts Hallucinations: + auditory hallucinations; no visual hallucinations Cognition: attention grossly intact and language grossly intact Estimated Intelligence: consistent with education level Insight: + limited insight Judgement: + limited judgement Vital Signs (Past 24 Hours) Last Vital Signs Temp 36.8 C 01/10/22 06:38 Pulse 77 01/10/22 06:39 Resp 18 01/10/22 06:38 BP 123/79 01/10/22 06:39 Pulse Ox 96 01/06/22 10:16 Results & Data ([facility]) Laboratory Results Laboratory Results - last 24 hr 01/09/22 01/09/22 01/09/22 12:35 17:04 21:39 POC Glucose 160 H 169 H 151 H 01/10/22 08:26 POC Glucose 182 H Current Inpatient Medications Current Inpatient Medications: Current Inpatient Medications Acetaminophen (Acetaminophen 325 Mg Tab) 650 mg PO Q4H PRN PRN Reason: Headache or Minor Fever Stop: 02/05/22 10:13 Al Hydrox/Mg Hydrox/Simethicone (Aluminum/Magnesium Susp 30 Ml Udc) 30 ml PO Q4H PRN PRN Reason: GI Upset Stop: 02/05/22 10:13 Aspirin (Aspirin 81 Mg Ectab) 81 mg PO QA [facility] Stop: 02/06/22 08:59 Last Admin: 01/09/22 08:54 Dose: 81 mg Documented by: Atorvastatin Calcium (Atorvastatin 40 Mg Tab) 80 mg PO HS [facility] Stop: 02/05/22 20:59 Last Admin: 01/09/22 21:34 Dose: 80 mg Documented by: Benztropine Mesylate (Benztropine Mesylate 1 Mg Tab) 1 mg PO HS [facility] Stop: 02/05/22 20:59 Last Admin: 01/09/22 21:35 Dose: 1 mg Documented by: Bismuth Subsalicylate (Bismuth Subsalicylate Liqd 236 Ml) 15 ml PO PRN PRN PRN Reason: Loose Stool Stop: 02/05/22 10:13 Cyanocobalamin (Cyanocobalamin (B-12) 500 Mcg Tablet) 1,000 mcg PO QAM [facility] Stop: 02/06/22 08:59 Last Admin: 01/09/22 08:55 Dose: 1,000 mcg Documented by: Dextrose (Dextrose 50% 50 Ml Syringe) 25 - 50 ml IV UD PRN; Protocol PRN Reason: Hypoglycemia Protocol Stop: 02/05/22 11:14 Ergocalciferol (Ergocalciferol 50,000 Units 1250 Mcg Cap) 50,000 units PO Tu@0900 [facility] Stop: 02/10/22 08:59 Fenofibrate (Fenofibrate Nanocrystallized 48 Mg Tablet) 96 mg PO DAILY [facility] Stop: 02/06/22 08:59 Last Admin: 01/09/22 08:55 Dose: 96 mg Documented by: Ferrous Sulfate (Ferrous Sulfate 325 Mg Tab) 325 mg PO QAM [facility] Stop: 02/06/22 08:59 Last Admin: 01/09/22 08:55 Dose: 325 mg Documented by: Glucagon (Glucagon For Inj 1 Mg Vial) 1 mg IM UD PRN; Protocol PRN Reason: Hypoglycemia Protocol Stop: 02/05/22 11:14 Glucose (Glucose 40% Gel 15 Gm Tube) 15 - 30 gm PO UD PRN; Protocol PRN Reason: Hypoglycemia Protocol Stop: 02/05/22 11:14 Glucose (Glucose 10 Tabs/Tube) 4 - 8 tabs PO UD PRN; Protocol PRN Reason: Hypoglycemia Protocol Stop: 02/05/22 11:14 Hydrochlorothiazide (Hydrochlorothiazide 25 Mg Tab) 25 mg PO QAM [facility] Stop: 02/06/22 08:59 Last Admin: 01/09/22 08:55 Dose: 25 mg Documented by: Hydroxyzine HCl (Hydroxyzine Hcl 25 Mg Tab) 50 mg PO HSZ PRN PRN Reason: Insomnia Stop: 02/05/22 10:13 Last Admin: 01/07/22 21:49 Dose: 50 mg Documented by: Hydroxyzine HCl (Hydroxyzine Hcl 25 Mg Tab) 25 mg PO Q4H PRN PRN Reason: Anxiety Stop: 02/05/22 10:13 Insulin Aspart (Insulin Aspart Per Unit) 0 units SC ACHS [facility] Stop: 02/05/22 11:59 Last Admin: 01/09/22 21:46 Dose: 2 units Documented by: Insulin Detemir (Insulin Detemir) 115 units SC DAILY [facility] Stop: 02/06/22 08:59 Last Admin: 01/09/22 09:10 Dose: 115 units Documented by: Insulin Detemir (Insulin Detemir) 50 units SC [facility] Stop: 02/08/22 21:59 Last Admin: 01/09/22 21:40 Dose: 50 units Documented by: Lisinopril (Lisinopril 40 Mg Tab) 40 mg PO QAM [facility] Stop: 02/06/22 08:59 Last Admin: 01/09/22 08:56 Dose: 40 mg Documented by: Magnesium Hydroxide (Magnesium Hydroxide Susp 30 Ml Udc) 30 ml PO DAILY PRN PRN Reason: Constipation Stop: 02/05/22 10:13 Metformin HCl (Metformin Hcl Er 500 Mg Tabcr) 500 mg PO BIDM [facility] Stop: 02/05/22 16:59 Last Admin: 01/09/22 17:40 Dose: 500 mg Documented by: Methimazole (Methimazole 5 Mg Tablet) 10 mg PO QAM [facility] Stop: 02/06/22 08:59 Last Admin: 01/09/22 08:56 Dose: 10 mg Documented by: Miscellaneous (Carbohydrates For Hypoglycemia ) 15 - 30 gm PO UD PRN PRN Reason: Hypoglycemia Treatment Stop: 02/05/22 11:14 Miscellaneous Information (Pharmacy Glycemic Mgmt Consult) 1 ea N/A UD PRN PRN Reason: Consult Stop: 02/05/22 10:26 Olanzapine (Olanzapine 10 Mg Tab) 30 mg PO [facility] Stop: 02/05/22 20:59 Last Admin: 01/09/22 21:34 Dose: 30 mg Documented by: Olanzapine (Olanzapine 5 Mg Tablet) 5 mg PO DAILY@1500 [facility] Stop: 02/05/22 14:59 Last Admin: 01/09/22 14:44 Dose: 5 mg Documented by: Sodium Chloride (Sodium Chloride 0.65% Na Soln 45 Ml ([place])) 1 - 2 sprays NA PRN PRN PRN Reason: Nasal Dryness/Congestion Stop: 02/05/22 10:13 Mental Health & Subst Abuse Tx Psychiatrist Name of Psychiatrist: Kalee Lux Psychiatrist's Date of Appointment with Psychiatrist: 01/31/22 Time of Appointment with Psychiatrist: 10:20am (arrive 10:05am) Psychiatric Appointment Comment: [id number] Therapist Name of Therapist: Kalee Chaves Therapist's Date of Therapist Appointment: 01/13/22 Time of Therapist Appointment: 11:00am Therapy Appointment Comment: [id number] [facility] [address] Grinder Set Up Operator Thread Tool Name of Grinder Set Up Operator Thread Tool: JONO Freeman (new CM will be ) Phone Number for Grinder Set Up Operator Thread Tool: [phone] Date of Appointment with Grinder Set Up Operator Thread Tool: 01/18/22 Time of Appointment with Grinder Set Up Operator Thread Tool: 10am Case Management Appointment Comment: [facility] Post Discharge Appointments Primary Care Physician Name Of Family Doctor: BLAZE Reece Primary Care Provider Appointment Comment: [address] [place], [place] Contact Information Discharge Discharge [address]: [address] [address] (1) Diabetes mellitus type 2, uncontrolled Glycemic state: with hyperglycemia Qualified Code(s): E11.65 - Type 2 diabetes mellitus with hyperglycemia (2) Schizophrenia Schizophrenia type: paranoid schizophrenia Qualified Code(s): F20.0 - Paranoid schizophrenia
[2022-01-10] MEDS: lisinopril 40 MG TAB PO SCH (08:51)
[2022-01-10] MEDS: metFORMIN HCL ER 500 MG TABCR PO SCH ×2 (08:51→17:38)
[2022-01-10] MEDS: methIMAzole 5 MG TABLET PO SCH (08:51)
[2022-01-10] MEDS: INSULIN DETEMIR SC SCH (08:59)
[2022-01-10] MEDS: INSULIN ASPART PER UNIT SC SCH ×4 (09:00→21:12)
[2022-01-10] MEDS: OLANZapine 5 MG TABLET PO SCH (14:57)
[2022-01-10] MEDS: OLANZapine 10 MG TAB PO SCH (21:11)
[2022-01-10] MEDS: BENZTROPINE MESYLATE 1 MG TAB PO SCH (21:11)
[2022-01-10] MEDS: ATORVASTATIN 40 MG TAB PO SCH (21:11)
[2022-01-10] MEDS ORDERED: INSULIN DETEMIR SC SCH (22:00)
[2022-01-10] MEDS: hydrOXYzine HCl 25 MG TAB PO PRN (23:05)
[2022-01-11] MEDS: ASPIRIN 81 MG ECTAB PO SCH (09:00)
[2022-01-11] MEDS ORDERED: ERGOCALCIFEROL 50,000 UNITS 1250 MCG CAP PO SCH (09:00)
[2022-01-11] MEDS: CYANOCOBALAMIN (B-12) 500 MCG TABLET PO SCH (09:01)
[2022-01-11] MEDS: FENOFIBRATE NANOCRYSTALLIZED 48 MG TABLET PO SCH (09:03)
[2022-01-11] MEDS: FERROUS SULFATE 325 MG TAB PO SCH (09:04)
[2022-01-11] MEDS: hydroCHLOROthiazide 25 MG TAB PO SCH (09:05)
[2022-01-11] MEDS: lisinopril 40 MG TAB PO SCH (09:07)
[2022-01-11] MEDS: metFORMIN HCL ER 500 MG TABCR PO SCH (09:07)
[2022-01-11] MEDS: methIMAzole 5 MG TABLET PO SCH (09:09)
[2022-01-11] MEDS: INSULIN ASPART PER UNIT SC SCH (09:15)
[2022-01-11] MEDS: INSULIN DETEMIR SC SCH (09:37)
--- NOTE | 2022-01-11 09:58 | Discharge Summary ---
Date of Service January 11, 2022 History of Present Illness States that she still feels isolated in her current [facility] as far from mother who is elderly and having a harder time visiting. Her sleep has been disrupted for the last few weeks as her roommate has "dementia and is up at night rummaging through my things." She has requested a room change. Her mental health case manager from [facility] is also leaving. She stated that when she becomes overwhelmed with her delusions she starts to feel suicidal "Like I don't deserve to live or that I need to be punished." She denied having a specific plan to harm herself but "you know I'm diabetic and when I got upset yesterday I couldn't take my blood pressure pills." Physical Exam Vital Signs (Past 24 Hours) Last Vital Signs Temp 36.5 C 01/11/22 09:40 Pulse 79 01/11/22 09:40 Resp 18 01/11/22 09:40 BP 160/104 H 01/11/22 09:40 Pulse Ox 96 01/11/22 09:40 See admission H&P and DOD summary. Principal Diagnosis Schizophrenia Psychiatric Data See daily stay summary. In short, patient was engaged with the social/therapeutic milieu of the unit, safety was maintained and the patient was cooperative with care. No medication changes were made as mood symptoms and increased delusions were felt to be in the context of situational stressors and Sanjuanita preferred to avoid any medication adjustments as she finds her current regimen helpful. Fasting metabolic labs were done on 01/08/22 and notable for elevated triglycerides (525), elevated cholesterol (262) and elevated HbA1c 9.1%. A safety plan was completed prior to discharge. In the days leading up to discharge she consistently denied any SI. She refused one dose of insulin on the evening of 01/08/22 but was otherwise adherent with all medications during her admission. She had periods of more intense delusions and auditory hallucinations consistent with her past themes regarding concerns about being a citizen of [place] and being unwanted in the [place] and concerns that her God was angry with her but overall she presented as more reality-based and better able to challenge delusional and paranoid ideation during this admission. On the day of discharge she stated her mood was "ok" and noted that she feels well supported by her outpatient providers and staff at [facility] as well as noting "I got a lot of good work done here, it really helped me work on my emotions and I feel a lot better". She remained future-oriented including seeing her mother, speaking with staff at [facility] and engaging in aftercare appointments for psychiatry, therapy and case management. She noted a decrease in auditory hallucinations stating "ok, they're just thoughts now, not really voices". Day of Discharge Assessment Today the patient voices readiness for discharge. They note improvement in mood and anxiety. They deny thoughts of harm to self or others. Thoughts are organized and they are clinically improved from admission. She continues to have some delusions and periods of auditory hallucinations but behavior remains organized, she feels she can reality-test these beliefs and can reach out to her supports if she needs help reality-testing. No command auditory hallucinations and no evidence for acute psychosis.They improved in the hospital with support. They agree to take medications as prescribed and keep follow-up appointments. At the time of the discharge they are deemed to be stable and appropriate for outpatient level of care. They are not deemed to be at imminent risk of harm to self or others. They are aware of emergency and crisis services. Knows to call 911 or go to nearest emergency care center if in a crisis which cannot be handled as an outpatient. Transition of Care Transition Of Care Record: was reviewed with the patient Advance Directives Advance Directives Information Provided: Yes Advance Directives: No Mental Health Advance Directive: No Advance Directives on File: No Living Will: No Power of Senior Director Of [employer]: No Advance Directives Reason:: Declines as Mental Health Visit. Suicide Risk Level Suicide Risk Level: Low (q15 min observation checks) Suicide Risk Level Comments: Acute risk is low given improvement in mood and denial of SI, lack of access to lethal means, improvement in sleep, hopefulness, improvement in psychosis. Chronic risk is moderate given psychiatric co-morbid diagnoses, prior attempts, chronic illness, prior psychiatric hospitalizations, schizophrenia, childhood trauma but also with protective factors. Counseled on ways to reduce acute and chronic risk including engaging with outpatient providers, using safety plan if needed, utilizing supports, taking medication, and using coping skills. Modifiable risk factors of SI and depression were addressed during hospitalization through development of new coping skills, time away from stressful personal long term environment, and safety planning. Risk Factors Assessment : Yes Do You Have Access To A Gun?: No Health Problems: Yes Mental Health Diagnoses: Yes Substance Use Disorders: No Previous Attempt: Yes Previous Psychiatric Hospitalization: Yes Hopelessness: No Protective Factors Assessment Employed: No Stable Relationships: Yes Supportive Family: Yes Good Rapport with Provider: Yes Tobacco Cessation at Discharge Tobacco Cessation Medication Prescribed at Discharge: Not Applicable/Non-Smoker Discharge Data Lab Results 01/06/22 01/06/22 01/06/22 05:23 05:23 05:48 WBC 10.15 RBC 4.94 Hgb 13.4 Hct 40.2 MCV 81.4 MCH 27.1 MCHC 33.3 RDW Std Deviation 42.3 RDW Coeff of Abel 14.2 Plt Count 337 MPV 8.7 Immature Gran % (Auto) 0.5 Neut % (Auto) 59.7 Lymph % (Auto) 29.2 [place] % (Auto) 7.9 Eos % (Auto) 2.2 Baso % (Auto) 0.5 Neut # (Auto) 6.07 Lymph # (Auto) 2.96 [place] # (Auto) 0.80 H Eos # (Auto) 0.22 Baso # (Auto) 0.05 Immature Gran # (Auto) 0.05 H Sodium Potassium Chloride Carbon Dioxide Anion Gap BUN Creatinine Est Cr Clr Drug Dosing Est GFR ( Amer) Est GFR (Non-Af Amer) BUN/Creatinine Ratio Glucose POC Glucose Estimat Average Glucose Hemoglobin A1c Calcium Total Bilirubin AST ALT Alkaline Phosphatase Total Protein Albumin Globulin Albumin/Globulin Ratio Triglycerides Cholesterol LDL Cholesterol, Calc VLDL Cholesterol, Calc HDL Cholesterol Cholesterol/HDL Ratio TSH Urine Color Yellow Urine Appearance Clear Urine pH 7.0 Ur Specific [place] 1.033 H Urine Protein Negative Urine Glucose (UA) 3+ H Urine Ketones Negative Urine Blood Negative Urine Nitrite Negative Urine Bilirubin Negative Urine Urobilinogen Negative Ur Leukocyte Esterase Negative Salicylates Urine Opiates Screen Neg Ur Methadone, Qual Neg Acetaminophen Urine Barbiturates Neg Ur Phencyclidine (PCP) Neg U Amphetamin/Meth Scrn Neg MDMA (Ecstasy) Screen Neg U Benzodiazepines Scrn Neg Ur Cocaine Metabolite Neg U Marijuana (THC) Screen Neg Ethyl Alcohol mg/dL SARS-CoV-2, RNA, NAAT 01/06/22 01/06/22 01/06/22 05:48 05:48 05:48 WBC RBC Hgb Hct MCV MCH MCHC RDW Std Deviation RDW Coeff of Abel Plt Count MPV Immature Gran % (Auto) Neut % (Auto) Lymph % (Auto) [place] % (Auto) Eos % (Auto) Baso % (Auto) Neut # (Auto) Lymph # (Auto) [place] # (Auto) Eos # (Auto) Baso # (Auto) Immature Gran # (Auto) Sodium 137 Potassium 3.6 Chloride 106 Carbon Dioxide 22 Anion Gap 9 BUN 13 Creatinine 0.66 Est Cr Clr Drug Dosing 100.7 Est GFR ( Amer) 114.5 Est GFR (Non-Af Amer) 98.8 BUN/Creatinine Ratio 19.7 Glucose 294 H POC Glucose Estimat Average Glucose Hemoglobin A1c Calcium 8.7 Total Bilirubin 0.3 AST 10 L ALT 19 Alkaline Phosphatase 87 Total Protein 6.1 Albumin 3.8 Globulin 2.3 L Albumin/Globulin Ratio 1.7 Triglycerides Cholesterol LDL Cholesterol, Calc VLDL Cholesterol, Calc HDL Cholesterol Cholesterol/HDL Ratio TSH 0.928 Urine Color Urine Appearance Urine pH Ur Specific [place] Urine Protein Urine Glucose (UA) Urine Ketones Urine Blood Urine Nitrite Urine Bilirubin Urine Urobilinogen Ur Leukocyte Esterase Salicylates < 3.0 L Urine Opiates Screen Ur Methadone, Qual Acetaminophen < 3 L Urine Barbiturates Ur Phencyclidine (PCP) U Amphetamin/Meth Scrn MDMA (Ecstasy) Screen U Benzodiazepines Scrn Ur Cocaine Metabolite U Marijuana (THC) Screen Ethyl Alcohol mg/dL SARS-CoV-2, RNA, NAAT 01/06/22 01/06/22 01/06/22 05:48 05:54 08:19 WBC RBC Hgb Hct MCV MCH MCHC RDW Std Deviation RDW Coeff of Abel Plt Count MPV Immature Gran % (Auto) Neut % (Auto) Lymph % (Auto) [place] % (Auto) Eos % (Auto) Baso % (Auto) Neut # (Auto) Lymph # (Auto) [place] # (Auto) Eos # (Auto) Baso # (Auto) Immature Gran # (Auto) Sodium Potassium Chloride Carbon Dioxide Anion Gap BUN Creatinine Est Cr Clr Drug Dosing Est GFR ( Amer) Est GFR (Non-Af Amer) BUN/Creatinine Ratio Glucose POC Glucose 286 H Estimat Average Glucose Hemoglobin A1c Calcium Total Bilirubin AST ALT Alkaline Phosphatase Total Protein Albumin Globulin Albumin/Globulin Ratio Triglycerides Cholesterol LDL Cholesterol, Calc VLDL Cholesterol, Calc HDL Cholesterol Cholesterol/HDL Ratio TSH Urine Color Urine Appearance Urine pH Ur Specific [place] Urine Protein Urine Glucose (UA) Urine Ketones Urine Blood Urine Nitrite Urine Bilirubin Urine Urobilinogen Ur Leukocyte Esterase Salicylates Urine Opiates Screen Ur Methadone, Qual Acetaminophen Urine Barbiturates Ur Phencyclidine (PCP) U Amphetamin/Meth Scrn MDMA (Ecstasy) Screen U Benzodiazepines Scrn Ur Cocaine Metabolite U Marijuana (THC) Screen Ethyl Alcohol mg/dL < 10.0 SARS-CoV-2, RNA, NAAT NEGATIVE 01/06/22 01/06/22 01/06/22 12:30 17:12 21:05 WBC RBC Hgb Hct MCV MCH MCHC RDW Std Deviation RDW Coeff of Abel Plt Count MPV Immature Gran % (Auto) Neut % (Auto) Lymph % (Auto) [place] % (Auto) Eos % (Auto) Baso % (Auto) Neut # (Auto) Lymph # (Auto) [place] # (Auto) Eos # (Auto) Baso # (Auto) Immature Gran # (Auto) Sodium Potassium Chloride Carbon Dioxide Anion Gap BUN Creatinine Est Cr Clr Drug Dosing Est GFR ( Amer) Est GFR (Non-Af Amer) BUN/Creatinine Ratio Glucose POC Glucose 180 H 175 H 223 H Estimat Average Glucose Hemoglobin A1c Calcium Total Bilirubin AST ALT Alkaline Phosphatase Total Protein Albumin Globulin Albumin/Globulin Ratio Triglycerides Cholesterol LDL Cholesterol, Calc VLDL Cholesterol, Calc HDL Cholesterol Cholesterol/HDL Ratio TSH Urine Color Urine Appearance Urine pH Ur Specific [place] Urine Protein Urine Glucose (UA) Urine Ketones Urine Blood Urine Nitrite Urine Bilirubin Urine Urobilinogen Ur Leukocyte Esterase Salicylates Urine Opiates Screen Ur Methadone, Qual Acetaminophen Urine Barbiturates Ur Phencyclidine (PCP) U Amphetamin/Meth Scrn MDMA (Ecstasy) Screen U Benzodiazepines Scrn Ur Cocaine Metabolite U Marijuana (THC) Screen Ethyl Alcohol mg/dL SARS-CoV-2, RNA, NAAT 01/07/22 01/07/22 01/07/22 05:48 08:27 12:12 WBC RBC Hgb Hct MCV MCH MCHC RDW Std Deviation RDW Coeff of Abel Plt Count MPV Immature Gran % (Auto) Neut % (Auto) Lymph % (Auto) [place] % (Auto) Eos % (Auto) Baso % (Auto) Neut # (Auto) Lymph # (Auto) [place] # (Auto) Eos # (Auto) Baso # (Auto) Immature Gran # (Auto) Sodium Potassium Chloride Carbon Dioxide Anion Gap BUN Creatinine Est Cr Clr Drug Dosing Est GFR ( Amer) Est GFR (Non-Af Amer) BUN/Creatinine Ratio Glucose POC Glucose 203 H 166 H Estimat Average Glucose 214 Hemoglobin A1c 9.1 H Calcium Total Bilirubin AST ALT Alkaline Phosphatase Total Protein Albumin Globulin Albumin/Globulin Ratio Triglycerides Cholesterol LDL Cholesterol, Calc VLDL Cholesterol, Calc HDL Cholesterol Cholesterol/HDL Ratio TSH Urine Color Urine Appearance Urine pH Ur Specific [place] Urine Protein Urine Glucose (UA) Urine Ketones Urine Blood Urine Nitrite Urine Bilirubin Urine Urobilinogen Ur Leukocyte Esterase Salicylates Urine Opiates Screen Ur Methadone, Qual Acetaminophen Urine Barbiturates Ur Phencyclidine (PCP) U Amphetamin/Meth Scrn MDMA (Ecstasy) Screen U Benzodiazepines Scrn Ur Cocaine Metabolite U Marijuana (THC) Screen Ethyl Alcohol mg/dL SARS-CoV-2, RNA, NAAT 01/07/22 01/07/22 01/08/22 17:09 21:22 06:48 WBC RBC Hgb Hct MCV MCH MCHC RDW Std Deviation RDW Coeff of Abel Plt Count MPV Immature Gran % (Auto) Neut % (Auto) Lymph % (Auto) [place] % (Auto) Eos % (Auto) Baso % (Auto) Neut # (Auto) Lymph # (Auto) [place] # (Auto) Eos # (Auto) Baso # (Auto) Immature Gran # (Auto) Sodium Potassium Chloride Carbon Dioxide Anion Gap BUN Creatinine Est Cr Clr Drug Dosing Est GFR ( Amer) Est GFR (Non-Af Amer) BUN/Creatinine Ratio Glucose POC Glucose 129 H 246 H Estimat Average Glucose Hemoglobin A1c Calcium Total Bilirubin AST ALT Alkaline Phosphatase Total Protein Albumin Globulin Albumin/Globulin Ratio Triglycerides 525 H Cholesterol 262 H LDL Cholesterol, Calc TNP VLDL Cholesterol, Calc TNP HDL Cholesterol 39 Cholesterol/HDL Ratio 6.7 H TSH Urine Color Urine Appearance Urine pH Ur Specific [place] Urine Protein Urine Glucose (UA) Urine Ketones Urine Blood Urine Nitrite Urine Bilirubin Urine Urobilinogen Ur Leukocyte Esterase Salicylates Urine Opiates Screen Ur Methadone, Qual Acetaminophen Urine Barbiturates Ur Phencyclidine (PCP) U Amphetamin/Meth Scrn MDMA (Ecstasy) Screen U Benzodiazepines Scrn Ur Cocaine Metabolite U Marijuana (THC) Screen Ethyl Alcohol mg/dL SARS-CoV-2, RNA, NAAT 01/08/22 01/08/22 01/08/22 08:38 12:23 17:09 WBC RBC Hgb Hct MCV MCH MCHC RDW Std Deviation RDW Coeff of Abel Plt Count MPV Immature Gran % (Auto) Neut % (Auto) Lymph % (Auto) [place] % (Auto) Eos % (Auto) Baso % (Auto) Neut # (Auto) Lymph # (Auto) [place] # (Auto) Eos # (Auto) Baso # (Auto) Immature Gran # (Auto) Sodium Potassium Chloride Carbon Dioxide Anion Gap BUN Creatinine Est Cr Clr Drug Dosing Est GFR ( Amer) Est GFR (Non-Af Amer) BUN/Creatinine Ratio Glucose POC Glucose 177 H 200 H 200 H Estimat Average Glucose Hemoglobin A1c Calcium Total Bilirubin AST ALT Alkaline Phosphatase Total Protein Albumin Globulin Albumin/Globulin Ratio Triglycerides Cholesterol LDL Cholesterol, Calc VLDL Cholesterol, Calc HDL Cholesterol Cholesterol/HDL Ratio TSH Urine Color Urine Appearance Urine pH Ur Specific [place] Urine Protein Urine Glucose (UA) Urine Ketones Urine Blood Urine Nitrite Urine Bilirubin Urine Urobilinogen Ur Leukocyte Esterase Salicylates Urine Opiates Screen Ur Methadone, Qual Acetaminophen Urine Barbiturates Ur Phencyclidine (PCP) U Amphetamin/Meth Scrn MDMA (Ecstasy) Screen U Benzodiazepines Scrn Ur Cocaine Metabolite U Marijuana (THC) Screen Ethyl Alcohol mg/dL SARS-CoV-2, RNA, NAAT 01/08/22 01/09/22 01/09/22 21:08 08:28 12:35 WBC RBC Hgb Hct MCV MCH MCHC RDW Std Deviation RDW Coeff of Abel Plt Count MPV Immature Gran % (Auto) Neut % (Auto) Lymph % (Auto) [place] % (Auto) Eos % (Auto) Baso % (Auto) Neut # (Auto) Lymph # (Auto) [place] # (Auto) Eos # (Auto) Baso # (Auto) Immature Gran # (Auto) Sodium Potassium Chloride Carbon Dioxide Anion Gap BUN Creatinine Est Cr Clr Drug Dosing Est GFR ( Amer) Est GFR (Non-Af Amer) BUN/Creatinine Ratio Glucose POC Glucose 212 H 212 H 160 H Estimat Average Glucose Hemoglobin A1c Calcium Total Bilirubin AST ALT Alkaline Phosphatase Total Protein Albumin Globulin Albumin/Globulin Ratio Triglycerides Cholesterol LDL Cholesterol, Calc VLDL Cholesterol, Calc HDL Cholesterol Cholesterol/HDL Ratio TSH Urine Color Urine Appearance Urine pH Ur Specific [place] Urine Protein Urine Glucose (UA) Urine Ketones Urine Blood Urine Nitrite Urine Bilirubin Urine Urobilinogen Ur Leukocyte Esterase Salicylates Urine Opiates Screen Ur Methadone, Qual Acetaminophen Urine Barbiturates Ur Phencyclidine (PCP) U Amphetamin/Meth Scrn MDMA (Ecstasy) Screen U Benzodiazepines Scrn Ur Cocaine Metabolite U Marijuana (THC) Screen Ethyl Alcohol mg/dL SARS-CoV-2, RNA, NAAT 01/09/22 01/09/22 01/10/22 17:04 21:39 08:26 WBC RBC Hgb Hct MCV MCH MCHC RDW Std Deviation RDW Coeff of Abel Plt Count MPV Immature Gran % (Auto) Neut % (Auto) Lymph % (Auto) [place] % (Auto) Eos % (Auto) Baso % (Auto) Neut # (Auto) Lymph # (Auto) [place] # (Auto) Eos # (Auto) Baso # (Auto) Immature Gran # (Auto) Sodium Potassium Chloride Carbon Dioxide Anion Gap BUN Creatinine Est Cr Clr Drug Dosing Est GFR ( Amer) Est GFR (Non-Af Amer) BUN/Creatinine Ratio Glucose POC Glucose 169 H 151 H 182 H Estimat Average Glucose Hemoglobin A1c Calcium Total Bilirubin AST ALT Alkaline Phosphatase Total Protein Albumin Globulin Albumin/Globulin Ratio Triglycerides Cholesterol LDL Cholesterol, Calc VLDL Cholesterol, Calc HDL Cholesterol Cholesterol/HDL Ratio TSH Urine Color Urine Appearance Urine pH Ur Specific [place] Urine Protein Urine Glucose (UA) Urine Ketones Urine Blood Urine Nitrite Urine Bilirubin Urine Urobilinogen Ur Leukocyte Esterase Salicylates Urine Opiates Screen Ur Methadone, Qual Acetaminophen Urine Barbiturates Ur Phencyclidine (PCP) U Amphetamin/Meth Scrn MDMA (Ecstasy) Screen U Benzodiazepines Scrn Ur Cocaine Metabolite U Marijuana (THC) Screen Ethyl Alcohol mg/dL SARS-CoV-2, RNA, NAAT 01/10/22 01/10/22 01/10/22 12:26 16:54 20:29 WBC RBC Hgb Hct MCV MCH MCHC RDW Std Deviation RDW Coeff of Abel Plt Count MPV Immature Gran % (Auto) Neut % (Auto) Lymph % (Auto) [place] % (Auto) Eos % (Auto) Baso % (Auto) Neut # (Auto) Lymph # (Auto) [place] # (Auto) Eos # (Auto) Baso # (Auto) Immature Gran # (Auto) Sodium Potassium Chloride Carbon Dioxide Anion Gap BUN Creatinine Est Cr Clr Drug Dosing Est GFR ( Amer) Est GFR (Non-Af Amer) BUN/Creatinine Ratio Glucose POC Glucose 198 H 159 H 205 H Estimat Average Glucose Hemoglobin A1c Calcium Total Bilirubin AST ALT Alkaline Phosphatase Total Protein Albumin Globulin Albumin/Globulin Ratio Triglycerides Cholesterol LDL Cholesterol, Calc VLDL Cholesterol, Calc HDL Cholesterol Cholesterol/HDL Ratio TSH Urine Color Urine Appearance Urine pH Ur Specific [place] Urine Protein Urine Glucose (UA) Urine Ketones Urine Blood Urine Nitrite Urine Bilirubin Urine Urobilinogen Ur Leukocyte Esterase Salicylates Urine Opiates Screen Ur Methadone, Qual Acetaminophen Urine Barbiturates Ur Phencyclidine (PCP) U Amphetamin/Meth Scrn MDMA (Ecstasy) Screen U Benzodiazepines Scrn Ur Cocaine Metabolite U Marijuana (THC) Screen Ethyl Alcohol mg/dL SARS-CoV-2, RNA, NAAT 01/11/22 08:42 WBC RBC Hgb Hct MCV MCH MCHC RDW Std Deviation RDW Coeff of Abel Plt Count MPV Immature Gran % (Auto) Neut % (Auto) Lymph % (Auto) [place] % (Auto) Eos % (Auto) Baso % (Auto) Neut # (Auto) Lymph # (Auto) [place] # (Auto) Eos # (Auto) Baso # (Auto) Immature Gran # (Auto) Sodium Potassium Chloride Carbon Dioxide Anion Gap BUN Creatinine Est Cr Clr Drug Dosing Est GFR ( Amer) Est GFR (Non-Af Amer) BUN/Creatinine Ratio Glucose POC Glucose 152 H Estimat Average Glucose Hemoglobin A1c Calcium Total Bilirubin AST ALT Alkaline Phosphatase Total Protein Albumin Globulin Albumin/Globulin Ratio Triglycerides Cholesterol LDL Cholesterol, Calc VLDL Cholesterol, Calc HDL Cholesterol Cholesterol/HDL Ratio TSH Urine Color Urine Appearance Urine pH Ur Specific [place] Urine Protein Urine Glucose (UA) Urine Ketones Urine Blood Urine Nitrite Urine Bilirubin Urine Urobilinogen Ur Leukocyte Esterase Salicylates Urine Opiates Screen Ur Methadone, Qual Acetaminophen Urine Barbiturates Ur Phencyclidine (PCP) U Amphetamin/Meth Scrn MDMA (Ecstasy) Screen U Benzodiazepines Scrn Ur Cocaine Metabolite U Marijuana (THC) Screen Ethyl Alcohol mg/dL SARS-CoV-2, RNA, NAAT Hospital Course (1) Schizophrenia: (2) Diabetes mellitus type 2, uncontrolled: (3) Dyslipidemia: (4) Hypertension: 01/10/22: continue current meds and tx plan. Continuing to practice strategies to cope with transitions/stressors. 01/09/22: continue current meds and tx plan. 01/08/22: continue current medications and tx plan. Working on strategies to help her cope with transitions and environmental events that can lead to distress. 01/07/22: continue current meds and treatment plan. 01/06/22: The patient was admitted to the [facility] ([facility] inpatient mental health unit) on q15 min checks (behavioral with suicide precautions) for safety. The patient will participate in group, recreational, and milieu therapies and will be offered additional individual and family sessions as clinically appropriate. Mental Health & Subst Abuse Tx Psychiatrist Name of Psychiatrist: Kalee Lux Psychiatrist's Date of Appointment with Psychiatrist: 01/31/22 Time of Appointment with Psychiatrist: 10:20am (arrive 10:05am) Psychiatric Appointment Comment: [id number] Therapist Name of Therapist: Kalee Chaves Therapist's Date of Therapist Appointment: 01/13/22 Time of Therapist Appointment: 11:00am Therapy Appointment Comment: [id number] [facility] LIV[address] [place] [employer] Name of Fork Truck Operator: JONO Freeman (new CM will be Chantel) Phone Number for Fork Truck Operator: [phone] Date of Appointment with Fork Truck Operator: 01/18/22 Time of Appointment with Fork Truck Operator: 10 am Case Management [facility]ment [facility] Primary Care Physician Name Of Family Doctor: JAYJAY Reece Primary Care Time of Appointment with PCP: Follow up as needed Provider Appointment Comment: [address] [place], [place] Smoking Cessation Counseling Tobacco Cessation Medication Prescribed at Discharge: Not Applicable/Non-Smoker Contact Information Discharge Discharge Address: [facility]: [address] [place] [id number] Discharge Plan Discharge Items Patient Disposition: Home - Self-Care Reason For Visit: SCHIZOPHRENIA Discharge Diagnosis: Schizophrenia Activity: Resume your previous activity Non-emergency contact: Primary Care Provider, Psychiatrist, Therapist and Yard Pilot Call non-emergency contact if: you have any medication questions and your symptoms worsen Follow-up/Referrals: Dillon Rogers MD [Primary Care Provider] - Diet: Regular Addtl Attending Provider Instructions: SPECIAL CARE INSTRUCTIONS: 1. Follow through with your scheduled aftercare appointments. If unable to keep an appointment, please call to reschedule. 2. Take your medication only as prescribed. Medication should not be changed or stopped without the approval of your doctor. In the event of worsening symptoms or concerns about side effects, contact your doctor immediately. 3. Utilize new healthy coping skills, anger management skills, and stress management skills learned during your hospitalization. Journal feelings and process them with a support person. Identify stressors or situations that may result in relapse, deterioration or inappropriate behaviors and develop a plan to deal with those issues. 4. If your coping skills are ineffective and you are in crisis, contact your outpatient providers for direction. If unable to reach your providers, please call the [facility] CRISIS LINE AT , go to the [facility] walk-in center at [address] [facility], or go to the closest Emergency Room. 5. Avoid alcohol and un-prescribed drugs. 6. You have been provided with the Mental Health Advance Directives Pamphlet for your review. 7. Your condition is stable for discharge to outpatient level of care, but recovery is an ongoing process. Ifthoughts to harm yourself or others return, follow the safety plan developed during your stay. Planning for a safe return home includes securing weapons. Our treatment team recommends weaponsbe removed from the home until your outpatient provider reassesses your progress. In rare cases where the items themselvescannot be removed, guns and ammunitionshould be secured separatelyand keys stored by a reliable personoutside of the home. If you were admitted on an involuntary commitment, the police or other legal authorities may be involved in this process. AFTERCARE APPOINTMENTS: * Please call your insurance company prior to your scheduled appointment to confirm your aftercare providers are covered. Take your insurance information to your appointments. WHO TO CALL AND WHEN: Medical Emergencies: For questions or emergencies related to your hospital stay, please contact the Inpatient [facility] at [phone]. A psychiatric rn is on-call 20/03 for the Behavioral [facility] for emergencies At any time you feel your situation is an emergency, you may also call 911 immediately. Pending Studies at Discharge: No Stand-Alone Forms: My [facility] Medications and DC Order Prescriptions: Continued (DME) lancets [ReadyLance Safety Lancets] 30 gauge misc See Rx Instructions .Route Qty: 200 RF: 3 (DME) OneTouch Ultra Test Strip See Rx Instructions .Route Qty: 200 RF: 3 melatonin 5 mg capsule 5 mg PO HS PRN (Reason: insomnia) Qty: 90 RF: 3 lisinopril 40 mg tablet 40 mg PO DAILY Qty: 90 RF: 3 hydrochlorothiazide 25 mg tablet 25 mg PO DAILY Qty: 90 RF: 3 cyanocobalamin (vitamin B-12) [Vitamin B-12] 1,000 mcg tablet 1,000 mcg PO QAM Qty: 90 RF: 3 ergocalciferol (vitamin D2) [Vitamin D2] 1,250 mcg (50,000 unit) capsule 50,000 unit PO WK Qty: 12 RF: 3 fenofibrate micronized 130 mg capsule 130 mg PO QAM Qty: 90 RF: 3 ferrous sulfate 325 mg (65 mg iron) tablet 325 mg PO QAM Qty: 90 RF: 3 atorvastatin 80 mg tablet 80 mg PO HS Qty: 90 RF: 3 aspirin 81 mg tablet,delayed release (DR/EC) 81 mg PO QAM Qty: 90 RF: 3 acetaminophen [Tylenol] 325 mg tablet 325 mg PO QID PRN (Reason: pain) Qty: 360 RF: 1 hydroxyzine HCl 25 mg tablet 25 mg PO DAILY PRN (Reason: Anxiety) RF: 0 glipizide 10 mg tablet 10 mg PO BID 30 Days Qty: 60 RF: 2 Victoza 3-Antione 0.6 mg/0.1 mL (18 mg/3 mL) pen injector 1.8 mg subcut DAILY 30 Days Qty: 9 RF: 2 methimazole 10 mg tablet 10 mg PO QAM 30 Days Qty: 30 RF: 2 Jardiance 10 mg tablet 10 mg PO QAM 30 Days Qty: 30 RF: 2 metformin 500 mg tablet extended release 24 hr 500 mg PO BID 30 Days Qty: 60 RF: 2 (DME) BD AutoShield Duo Pen Needle 30 gauge x 3/16" needle .ROUTE .MEDSUPPLY Qty: 300 RF: 3 risperidone [Risperdal] 1 mg tablet 1 mg PO DAILY PRN (Reason: severe anxiety) RF: 0 zolpidem [Ambien] 10 mg tablet 10 mg PO HS PRN (Reason: Insomnia) RF: 0 Humulin R U-500 (Conc) Kwikpen 500 unit/mL (3 mL) insulin pen 55 unit subcut BID RF: 0 benztropine 1 mg tablet 1 mg PO HS 30 Days Qty: 30 RF: 0 olanzapine 5 mg Tablet 5 mg PO DAILY 30 Days Qty: 30 RF: 0 olanzapine 10 mg Tablet 10 mg PO HS 30 Days Qty: 30 RF: 0 olanzapine 20 mg Tablet 20 mg PO HS 30 Days Qty: 30 RF: 0 Discharge Orders: Discharge Order (Routine); Ordered 01/11/22 Ordered By: Marleni Oliva Admission Data Admit Date/Time: 01/06/22 10:14 Attending Provider: Marleni Oliva Admit Provider: Le John Primary Care Provider: Dillon Rogers V. Other Interventions: Discharge Summary Assessment (RN) Last Done: 01/11/22 09:40 PSY Interdisciplinary Discharge Planning Last Done: 01/11/22 09:51 Coding Level of Care Code 70760 D/C day mgmt > 30 min Diagnoses Schizophrenia F20.0 Schizophrenia type: paranoid schizophrenia Diabetes mellitus type 2, uncontrolled E11.65 Glycemic state: with hyperglycemia Dyslipidemia E78.5 Hypertension I10 Time Spent (min) 30
== END 2022-01-11 12:06 | disposition home or self-care (01) | DRG 885 ==
LOC: ED 05:08 → SUATTDRO 10:14 → 3S 10:17
DX: F20.0 Paranoid schizophrenia; Z88.8 Allergy status to other drugs, medicaments and biological substances; R45.851 Suicidal ideations; E11.65 Type 2 diabetes mellitus with hyperglycemia; E78.5 Hyperlipidemia, unspecified; Z88.2 Allergy status to sulfonamides; Z79.84 Long term (current) use of oral hypoglycemic drugs; I10 Essential (primary) hypertension; Z87.891 Personal history of nicotine dependence

== ENCOUNTER 2022-12-01 04:42 | Inpatient (IN) ==
--- NOTE | 2022-12-01 05:03 | Emergency Department Note ---
History of Present Illness General Chief complaint: Mental Health Evaluation Stated complaint: DEPRESSION/SUICIDAL Time Seen by Provider: 12/01/22 04:43 History of Present Illness 57-year-old female presents emergency department currently living in a personal mcc. Patient states that she has a history of depression and schizophrenia states that for the past week she has had some depression with suicidal ideation with no specific plan. Patient denies any ingestion. Patient states she is currently taking her medication but variably. Patient has no other complaints. Patient denies current homicidal ideations, no hallucinations, does state suicidal ideation but continues to state no plan Home Medications Medication Instructions Recorded Confirmed Type benztropine 1 mg tablet 1 mg PO HS 30 days #30 tabs 09/14/21 12/01/22 Rx olanzapine 10 mg tablet 10 mg PO HS 30 days #30 tabs 09/14/21 12/01/22 Rx olanzapine 20 mg tablet 20 mg PO HS 30 days #30 tabs 09/14/21 12/01/22 Rx olanzapine 5 mg tablet 5 mg PO DAILY 30 days #30 tabs 09/14/21 12/01/22 Rx cyanocobalamin (vitamin B-12) 1,000 mcg PO QAM #90 tabs 10/08/21 12/01/22 Rx 1,000 mcg tablet (Vitamin B-12) hydroxyzine HCl 25 mg tablet 25 mg PO DAILY PRN Anxiety 10/08/21 12/01/22 History zolpidem 10 mg tablet (Ambien) 10 mg PO HS PRN Insomnia 01/06/22 12/01/22 History hydrochlorothiazide 25 mg tablet 25 mg PO DAILY #90 tabs 03/01/22 12/01/22 Rx BD AutoShield Duo Pen Needle 30 #300 ea 03/23/22 11/21/22 Rx gauge x 3/16" (pen needle,diabetic dual safty) lancets 30 gauge (ReadyLance #200 ea 03/25/22 11/21/22 Rx Safety Lancets) insulin detemir U-100 100 unit/mL See Rx Instructions subcut BID 90 06/14/22 12/01/22 Rx (3 mL) subcutaneous pen (Levemir days #15 Boxes FlexTouch U-100 Insulin) acetaminophen 325 mg tablet 325 mg PO QID PRN pain #360 tabs 08/30/22 12/01/22 Rx (Tylenol) aspirin 81 mg tablet,delayed 81 mg PO QAM #90 tabs 08/30/22 12/01/22 Rx release ergocalciferol (vitamin D2) 1,250 50,000 unit PO WK #12 caps 08/30/22 12/01/22 Rx mcg (50,000 unit) capsule (Vitamin D2) fenofibrate micronized 130 mg 130 mg PO QAM #90 caps 08/30/22 12/01/22 Rx capsule ferrous sulfate 325 mg (65 mg 325 mg PO QAM #90 tabs 08/30/22 12/01/22 Rx iron) tablet melatonin 5 mg capsule 5 mg PO HS PRN insomnia #90 caps 08/30/22 12/01/22 Rx blood sugar diagnostic (OneTouch #200 ea 09/09/22 11/21/22 Rx Ultra Test strips) empagliflozin 10 mg tablet 10 mg PO QAM 30 days #30 tabs 09/12/22 12/01/22 Rx (Jardiance) liraglutide 0.6 mg/0.1 mL (18 mg/3 1.8 mg (0.3 mL) subcut DAILY 30 10/03/22 12/01/22 Rx mL) subcutaneous pen injector days #9 mL (Victoza 3-Antione) metformin 500 mg tablet,extended 500 mg PO BID 30 days #60 tabs 10/12/22 12/01/22 Rx release 24 hr methimazole 10 mg tablet 10 mg PO QAM 30 days #30 tabs 10/12/22 12/01/22 Rx rosuvastatin 20 mg tablet 20 mg PO DAILY #90 tabs 11/17/22 12/01/22 Rx Allergies Allergy/AdvReac Type Severity Reaction Status Date / Time sulfamethoxazole Allergy Mild Difficulty Verified 11/21/22 13:53 [From Bactrim] Breathing trimethoprim [From Bactrim] Allergy Mild Difficulty Verified 11/21/22 13:53 Breathing Past Med/Surg History Medical History Depression Eczema Graves disease Hypertension Hyperthyroidism Intertrigo Knee pain, bilateral Mood disorder PPD positive 19 mm in 2011- DEANNA->( [place] 9 months ) no longer PPD need Suicidal ideation Suicidal ideations UTI (urinary tract infection) Vaginitis Vitamin D deficiency Surgical History Hx of bilateral breast reduction surgery Hx of tonsillectomy Family History Father FHx: ischemic heart disease before age 50 Cardiac disorder Unknown Ovarian cancer Uncle Prostate cancer Grandfather Myocardial infarction Grandmother Cancer Denies family history of Breast cancer Social History Smoking Status: Former smoker Hx Alcohol Use: No Hx Substance Use: No Preferred Language: Uzbek Communication Ability: Effective Visual Impairment: No Limitations 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: Normal It Audit Manager Required: No Beliefs That Will Affect Care: Mu-Ism marital status: Single Current Living Situation: Personal Care Facility Current Living Situation Comment: [facility] current occupational status: unemployed Feels Safe at Home: Yes Dental Care, Regularly: Yes Physical Activity Frequency: 1-2 Times per Week Seatbelt Use: always Assistive Devices: Glasses Review of Systems A total of 10 systems reviewed and were otherwise negative Psychiatric: + depression Physical Exam Vital Signs Vital Signs - 24 hr 12/01/22 04:47 12/01/22 05:32 Temperature 36.6 C Temperature Source Oral Pulse Rate 83 Pulse Rhythm Regular Pulse Strength Normal Respiratory Rate 20 Respiratory Effort / Characteristics Non-Labored Spontaneous Respiratory Depth Normal Respiratory Pattern Regular Blood Pressure 185/120 H Blood Pressure [Right Arm] 172/98 H Blood Pressure Mean 141 Blood Pressure Mean [Right Arm] 122 Blood Pressure Position Sitting Blood Pressure Position [Right Arm] Lying Pulse Oximetry 98 Oxygen Delivery Method Room Air Sepsis Recent Fever Within 48 Hours No Sepsis New/Unexplained Change in Mental Status No Sepsis Action Taken by Nursing No Action Required GENERAL: Patient is awake alert in no acute distress patient is resting comfortably and showing no signs of anxiety EYES: The conjunctivae are clear. The pupils are round and reactive. EARS, NOSE, MOUTH AND THROAT: The nose is without any evidence of any deformity. Mucous membranes are moist. Tongue is midline. NECK: The neck is nontender and supple. RESPIRATORY: Normal respiratory effort is noted there is no evidence of wheezing rhonchi or rales CARDIOVASCULAR: Regular rate and rhythm noted there no murmurs rubs or gallops normal S1 normal S2. GASTROINTESTINAL: The abdomen is soft. Abdomen is nontender. BACK: Full range of motion MUSCULOSKELETAL/EXTREMITIES: There is no evidence of gross deformity full range of motion is noted in the hips and shoulders. SKIN: There is no obvious evidence of any rash. There are no petechiae, pallor or cyanosis noted. NEUROLOGIC: Patient is awake alert and oriented x3 strength is symmetric Psych depressed affect, suicidal ideation Course Reevaluation(s) Reevaluation #1: Patient was given her lisinopril and hydrochlorothiazide. She does have a history of hypertension she had not been taking her meds for a week now. Patient is medically cleared for psychiatric evaluation. Patient's blood pressure has decreased from the initial triage blood pressure. Time: 05:55 Medical Decision Making Medical Records Attestation: I reviewed the patient's medical records. Home Medications Current Medication List: was personally reviewed by me Laboratory Data Attestation: I reviewed the patient's lab results. Labs reviewed by me slightly elevated blood sugar 12/01/22 05:05 12/01/22 05:05 Lab Results 12/01/22 12/01/22 12/01/22 Range/Units 05:05 05:05 05:05 WBC 11.63 H (4.8-10.8) K/ul RBC 5.23 (4.20-5.40) M/uL Hgb 14.1 (12.0-16.0) g/dl Hct 41.4 (37.0-47.0) % MCV 79.2 L (80.0-100.0) fL MCH 27.0 (25.0-34.0) pg MCHC 34.1 (32.0-36.0) g/dL RDW Std Deviation 38.1 (36.4-46.3) fL RDW Coeff of Abel 13.3 (11.5-14.5) % Plt Count 367 (130-400) K/uL MPV 8.8 L (9.4-12.4) fL Immature Gran % (Auto) 0.7 % Neut % (Auto) 60.7 % Lymph % (Auto) 28.4 % [place] % (Auto) 7.2 % Eos % (Auto) 2.3 % Baso % (Auto) 0.7 % Neut # (Auto) 7.06 H (1.40-6.50) K/uL Lymph # (Auto) 3.30 (1.2-3.4) K/uL Sau[place] # (Auto) 0.84 H (0.11-0.59) K/uL Eos # (Auto) 0.27 (0-0.50) K/uL Baso # (Auto) 0.08 (0-0.2) K/uL Immature Gran # (Auto) 0.08 (0.01-0.20) K/uL Sodium 140 (136-145) mmol/L Potassium 3.5 (3.5-5.1) mmol/L Chloride 109 H (98-107) mmol/L Carbon Dioxide 21 (21-32) mmol/L Anion Gap 10 (3-11) BUN 14 (6-23) mg/dl Creatinine 0.70 (0.6-1.2) mg/dl Est Cr Clr Drug Dosing 93.6 ml/min Est GFR ( Amer) 111.5 ml/min Est GFR (Non-Af Amer) 96.2 ml/min BUN/Creatinine Ratio 20.0 (10-20) Glucose 199 H (70-99(Fasting)) mg/dl Calcium 8.8 (8.6-10.3) mg/dl Total Bilirubin 0.4 (0.2-1.0) mg/dl AST 16 (13-39) U/L ALT 25 (7-52) U/L Alkaline Phosphatase 109 H (34-104) U/L Total Protein 6.7 (6.0-8.3) gm/dl Albumin 4.2 (3.4-5.0) gm/dl Globulin 2.5 (2.5-4.0) gm/dl Albumin/Globulin Ratio 1.7 (0.9-2) Salicylates < 3.0 L (3.0-30) mg/dl Acetaminophen < 3 L (10-30) ug/ml Ethyl Alcohol mg/dL (<10.0) mg/dl SARS-CoV-2, RNA, NAAT (NEGATIVE) 12/01/22 12/01/22 Range/Units 05:05 05:05 WBC (4.8-10.8) K/ul RBC (4.20-5.40) M/uL Hgb (12.0-16.0) g/dl Hct (37.0-47.0) % MCV (80.0-100.0) fL MCH (25.0-34.0) pg MCHC (32.0-36.0) g/dL RDW Std Deviation (36.4-46.3) fL RDW Coeff of Abel (11.5-14.5) % Plt Count (130-400) K/uL MPV (9.4-12.4) fL Immature Gran % (Auto) % Neut % (Auto) % Lymph % (Auto) % [place] % (Auto) % Eos % (Auto) % Baso % (Auto) % Neut # (Auto) (1.40-6.50) K/uL Lymph # (Auto) (1.2-3.4) K/uL [place] # (Auto) (0.11-0.59) K/uL Eos # (Auto) (0-0.50) K/uL Baso # (Auto) (0-0.2) K/uL Immature Gran # (Auto) (0.01-0.20) K/uL Sodium (136-145) mmol/L Potassium (3.5-5.1) mmol/L Chloride (98-107) mmol/L Carbon Dioxide (21-32) mmol/L Anion Gap (3-11) BUN (6-23) mg/dl Creatinine (0.6-1.2) mg/dl Est Cr Clr Drug Dosing ml/min Est GFR ( Amer) ml/min Est GFR (Non-Af Amer) ml/min BUN/Creatinine Ratio (10-20) Glucose (70-99(Fasting)) mg/dl Calcium (8.6-10.3) mg/dl Total Bilirubin (0.2-1.0) mg/dl AST (13-39) U/L ALT (7-52) U/L Alkaline Phosphatase (34-104) U/L Total Protein (6.0-8.3) gm/dl Albumin (3.4-5.0) gm/dl Globulin (2.5-4.0) gm/dl Albumin/Globulin Ratio (0.9-2) Salicylates (3.0-30) mg/dl Acetaminophen (10-30) ug/ml Ethyl Alcohol mg/dL < 10.0 (<10.0) mg/dl SARS-CoV-2, RNA, NAAT NEGATIVE (NEGATIVE) Blood Pressure Blood Pressure Findings: Elevated blood pressure MDM Narrative Medical decision making differential diagnosis includes depression, suicidal ideation, social issues, anxiety Plan is to check labs, case management involvement for psychiatric disposition External medical records were reviewed by me Patient is medically cleared for psychiatric evaluation at 5:56 AM Impression & Plan Depression with suicidal ideation, Hypertension Discharge Plan Visit Data Chief Complaint: Mental Health Evaluation Stated Complaint: DEPRESSION/SUICIDAL ED Provider: Carl Calero Discharge Problem: Depression with suicidal ideation, Hypertension Patient Disposition: Still a Patient Forms Stand Alone Forms: [facility], Suicide Prevention Resources Prescriptions Prescriptions: No Action cyanocobalamin (vitamin B-12) [Vitamin B-12] 1,000 mcg tablet 1,000 mcg PO QAM Qty: 90 3RF hydroxyzine HCl 25 mg tablet 25 mg PO DAILY PRN (Reason: Anxiety) hydrochlorothiazide 25 mg tablet 25 mg PO DAILY Qty: 90 3RF (DME) BD AutoShield Duo Pen Needle 30 gauge x 3/16" needle .ROUTE .MEDSUPPLY Qty: 300 3RF Rx Instructions: Use 3 times daily as directed (DME) lancets [ReadyLance Safety Lancets] 30 gauge misc See Rx Instructions .Route Qty: 200 3RF Rx Instructions: use twice daily Levemir FlexTouch U-100 Insuln 100 unit/mL (3 mL) insulin pen See Rx Instructions SQ BID 90 Days Qty: 15 3RF Rx Instructions: 140 units in the morning and 100 units in the evening subcut twice a day; 0800 and 2000 (DME) OneTouch Ultra Test Strip See Rx Instructions .Route Qty: 200 3RF Rx Instructions: test blood sugar twice daily Jardiance 10 mg tablet 10 mg PO QAM 30 Days Qty: 30 2RF Victoza 3-Antione 0.6 mg/0.1 mL (18 mg/3 mL) pen injector 1.8 mg subcut DAILY 30 Days Qty: 9 2RF metformin 500 mg tablet extended release 24 hr 500 mg PO BID 30 Days Qty: 60 2RF Rx Instructions: pt takes at 8am and 5pm methimazole 10 mg tablet 10 mg PO QAM 30 Days Qty: 30 2RF rosuvastatin 20 mg tablet 20 mg PO DAILY Qty: 90 1RF acetaminophen [Tylenol] 325 mg tablet 325 mg PO QID PRN (Reason: pain) Qty: 360 1RF aspirin 81 mg tablet,delayed release (DR/EC) 81 mg PO QAM Qty: 90 3RF ergocalciferol (vitamin D2) [Vitamin D2] 1,250 mcg (50,000 unit) capsule 50,000 unit PO WK Qty: 12 3RF Rx Instructions: on fenofibrate micronized 130 mg capsule 130 mg PO QAM Qty: 90 3RF ferrous sulfate 325 mg (65 mg iron) tablet 325 mg PO QAM Qty: 90 3RF melatonin 5 mg capsule 5 mg PO HS PRN (Reason: insomnia) Qty: 90 3RF zolpidem [Ambien] 10 mg tablet 10 mg PO HS PRN (Reason: Insomnia) benztropine 1 mg tablet 1 mg PO HS 30 Days Qty: 30 0RF olanzapine 5 mg Tablet 5 mg PO DAILY 30 Days Qty: 30 0RF Rx Instructions: Daily at 1500 olanzapine 10 mg Tablet 10 mg PO HS 30 Days Qty: 30 0RF olanzapine 20 mg Tablet 20 mg PO HS 30 Days Qty: 30 0RF Referrals Referrals: Dillon Rogers MD [Primary Care Provider] -
[2022-12-01 05:48] LABS: Acetaminophen < 3 ug/ml (10-30); Salicylate < 3.0 mg/dl (3.0-30)
[2022-12-01 05:49] LABS: Basophils # (auto) 0.08 K/uL (0-0.2); Basophils % (auto) 0.7 %; Eosinophils # (auto) 0.27 K/uL (0-0.50); Eosinophils % (auto) 2.3 %; Hematocrit (blood only) 41.4 % (37.0-47.0); Hemoglobin 14.1 g/dl (12.0-16.0); Immature Granulocytes # (auto) 0.08 K/uL (0.01-0.20); Immature Granulocytes % (auto) 0.7 %; Lymphocytes % (auto) 28.4 %; Mean Corpuscular Hgb Conc 34.1 g/dL (32.0-36.0); Mean Corpuscular Volume 79.2 fL (80.0-100.0); Mean Platelet Volume 8.8 fL (9.4-12.4); Monocytes # (auto) 0.84 K/uL (0.11-0.59); Monocytes % (auto) 7.2 %; Neutrophils # (auto) 7.06 K/uL (1.40-6.50); Neutrophils % (auto) 60.7 %; Platelet Count 367 K/uL (130-400); RDW Coefficient of Variation 13.3 % (11.5-14.5); RDW Standard Deviation 38.1 fL (36.4-46.3); Red Blood Count 5.23 M/uL (4.20-5.40); White Blood Count 11.63 K/ul (4.8-10.8)
[2022-12-01 05:50] LABS: Albumin Globulin Ratio 1.7 (0.9-2); Albumin Level 4.2 gm/dl (3.4-5.0); Bilirubin,Total 0.4 mg/dl (0.2-1.0); Calcium 8.8 mg/dl (8.6-10.3); Creatinine Clr Calc Pharmacy 93.6 ml/min; Est GFR (African American) 111.5 ml/min; Est GFR (Non-African American) 96.2 ml/min; Globulin 2.5 gm/dl (2.5-4.0); Potassium 3.5 mmol/L (3.5-5.1); Total Protein 6.7 gm/dl (6.0-8.3)
[2022-12-01] MEDS ORDERED: LISINOPRIL/HCTZ 20/25MG 1 TAB PO STA (05:51)
[2022-12-01 05:59] LABS: Appearance Urine Cloudy (Clear); Bacteria Urine Automated 1+ (Negative); Bilirubin Urine Negative (Negative); Blood Urine Negative (Negative); Color Urine Yellow; Epithelial Cell Urine Auto >30 /lpf (0-5); Glucose Urine UA 3+ (Negative); Ketones Urine Trace (Negative); Leukocyte Esterase Urine Negative (Negative); Nitrite Urine Negative (Negative); Protein Urine Negative (Negative); RBC Urine Automated 0-4 /hpf (0-4); Specific Gravity Urine 1.041 (1.000-1.030); Urobilinogen Urine Negative (Negative); WBC Urine Automated >30 /hpf (0-5)
[2022-12-01 06:16] LABS: Amphetamines+Metham, Urine Neg (Neg); Barbiturates, Urine Neg (Neg); Benzodiazepine, Urine Neg (Neg); Cocaine, Urine Neg (Neg); MDMA (Ecstacy), Urine Neg (Neg); Methadone, Urine Neg (Neg); Opiate, Urine Neg (Neg); Phencyclidine, Urine Neg (Neg)
[2022-12-01 06:19] LABS: Calcium Oxalate Crystals Urine Present (None Prsent)
--- NOTE | 2022-12-01 07:11 | Emergency Department Note ---
ED Visit Note Received this patient in signout. Patient with some suicidal ideation but without a clear plan needed for inpatient treatment on a voluntary basis. See prior notes for full details. Case management assisted with bed search. Patient denies any urinary symptoms and UA likely contaminated in the setting. Did review home medications and given doses of her metformin, methimazole, hydrochlorothiazide as well as aspirin here. Reviewed last PCP note and the patient's blood pressure was not at goal then. Takes 40 mg of lisinopril as well as hydrochlorothiazide as needed. Was given a small dose of lisinopril hydrochlorothiazide earlier to this morning. We will give additional dose to meet her 40 mg of lisinopril daily as well as a small amount of additional hydrochlorothiazide as her blood pressure is somewhat elevated here. Accepted by [facility] for further inpatient treatment on a 201 here. .
[2022-12-01] MEDS ORDERED: lisinopril 20 MG TAB PO STA (08:25)
[2022-12-01] MEDS ORDERED: metFORMIN HCL ER 500 MG TABCR PO SCH (09:00)
[2022-12-01] MEDS ORDERED: FENOFIBRATE NANOCRYSTALLIZED 145 MG TABLET PO SCH (09:00)
[2022-12-01] MEDS ORDERED: ASPIRIN 81 MG ECTAB PO SCH (09:00)
[2022-12-01] MEDS ORDERED: methIMAzole 5 MG TABLET PO SCH (09:00)
[2022-12-01] MEDS ORDERED: NON-FORMULARY MEDICATION (Ferrous Sulfate 325 mg (65 mg iron) tablet) PO SCH (09:00)
[2022-12-01] MEDS ORDERED: FERROUS SULFATE 325 MG TAB PO SCH (09:00)
[2022-12-01] MEDS ORDERED: hydroCHLOROthiazide 25 MG TAB PO SCH (09:00)
[2022-12-01] MEDS ORDERED: FENOFIBRATE MICRONIZED 130 MG PO SCH (09:00)
[2022-12-01] MEDS ORDERED: EMPAGLIFLOZIN 10 MG TAB PO SCH (09:00)
[2022-12-01] MEDS ORDERED: hydrOXYzine HCl 25 MG TAB PO PRN ×2 (11:06)
[2022-12-01] MEDS ORDERED: MAGNESIUM HYDROXIDE SUSP 30 ML UDC PO PRN (11:06)
[2022-12-01] MEDS ORDERED: BISMUTH SUBSALICYLATE LIQD 236 ML PO PRN (11:06)
[2022-12-01] MEDS ORDERED: SODIUM CHLORIDE 0.65% NA SOLN 45 ML (OCEAN) PRN (11:06)
[2022-12-01] MEDS ORDERED: ALUMINUM/MAGNESIUM SUSP 30 ML UDC PO PRN (11:06)
[2022-12-01] MEDS ORDERED: ACETAMINOPHEN 325 MG TAB PO PRN (11:06)
[2022-12-01] MEDS ORDERED: PHARMACY GLYCEMIC MGMT CONSULT PRN (11:50)
[2022-12-01] MEDS ORDERED: INSULIN GLARGINE 100 UNIT/ML VIAL SC ONE (12:30)
[2022-12-01] MEDS ORDERED: LANTUS PER UNIT CHARGE SQ ONE (12:45)
[2022-12-01] MEDS: INSULIN ASPART PER UNIT CHARGE SC SCH ×3 (13:03→20:35)
[2022-12-01] MEDS ORDERED: ZOLPIDEM TARTRATE 10 MG TAB PO PRN (13:34)
[2022-12-01] MEDS ORDERED: BENZTROPINE MESYLATE 1 MG TAB PO PRN (13:37)
--- NOTE | 2022-12-01 13:38 | History & Physical ---
Date of Service December 01, 2022 Impression / Recommendations Impression Sanjuanita is a 57 year old woman with a history of schizophrenia and depression who was admitted for worsening depression, guilt, paranoia, and SI with thoughts of overdosing in the context of medication non-adherence. Diagnostically consistent with acute exacerbation of schizophrenia and depression. She is deemed in need of psychiatric hospitalization for diagnostic clarification, safety and stabilization, medication management and development of further coping skills. Discussed medication treatment options in detail. Discussed risks, benefits and alternatives. She consented to continuing olanzapine for schizophrenia and depression/mood stabilization. Reviewed side effects including but not limited to: above FDA-max dose but evidence that higher doses of olanzapine can offer more benefit and be well tolerated as well as movement (TD, NMS), cardiac (QTc prolongation), and metabolic (stroke, insulin resistance) and necessity for fasting lipid and glucose labwork and AIMS done with score of 0. (1) Diabetes mellitus type 2, uncontrolled: Glycemic state: with hyperglycemia Qualified Code(s): E11.65 - Type 2 diabetes mellitus with hyperglycemia (2) Dyslipidemia: (3) Hypertension: Plan 12/01/2022: The patient was admitted to the [facility] ([facility]) on q15 min checks (behavioral with suicide precautions) for safety. The patient will participate in group, recreational, and milieu therapies and will be offered additional individual and family sessions as clinically appropriate. -Restart prior to admission medications including olanzapine 35mg HS -EKG to assess QTc given above FDA max dose of olanzapine -Fasting glucose, HbA1c, lipid panel tomorrow AM -Restart prior to admission medications for BP, diabetes, HLD, elevated TGs, HTN Inventory Assets Strengths: has supportive housing, supportive mother, outpatient providers Needs: exploring challenges at [facility], re-establish with outpt CM Suicide Risk Level Suicide Risk Level: High-Moderate (q15 min suicide checks) (increased psychosis with SI with plan prior to admission but feels safe in the hospital and agrees to let provider or nurses know if she begins to feel unable to remain safe or develops SI with plan or intent) Risk Factors Assessment : Yes Do You Have Access To A Gun?: No Health Problems: Yes Mental Health Diagnoses: Yes Substance Use Disorders: No Previous Attempt: Yes Family History of Suicide: No Previous Psychiatric Hospitalization: Yes Protective Factors Assessment Employed: No Stable Relationships: Yes Supportive Family: Yes Good Rapport with Provider: Yes Psychiatric History Identifying Data SANJUANITA OLSON is a 57-year-old F who currently lives at [facility], has a history of schizophrenia and depression, and was admitted on 12/01/22 10:23 on a 201 voluntary commitment for suicidal ideation with a plan and worsening psychosis. Chief Complaint "I feel depressed and anxious". History of Present Illness Sanjaunita presented to the ED for worsening suicidal ideation with plan of possibly overdosing on pills (though notes she doesn't have access to her medications). She doesn't want to return to [facility] because "it's so far away from [facility] [address]" . She expresses concern with her medications as "they keep fiddling around with my medications" and therefore feels she can't take medication there or return there. Her previous roommate at [facility] . She hasn't been taking her medications consistently. She feels that housing is her biggest current stressor. She's also been worrying about things "that I know I'm not at fault for" but "I hurt people, I didn't mean to". Her main goals are working on housing and "getting my meds straight" and going to groups to "talk about my guilt and depression". Further recent symptoms reviewed and confirmed as documented by ED psych CM on 12/01/2022 : "Sanjuanita stated she was recently blessed at buddhist and since then she has been feeling extremely guilty and feels because she was blessed, she is the reason there are bad things happening in the world. She reported she feels God does not love her and it has been very upsetting. She also shared she is paranoid about taking her medications because she believes they may harm her or her child. She went on to share that she lost a one time and ever since then she has imagined she is . She reported she knows she is not really , but feels like she is." Past Psychiatric History Current Psychiatric Diagnosis: schizophrenia Outpatient Services: Psychiatric rehab twice weekly, has a radiation protection specialist, hasn't been communicating recently with her family service caseworker Marita. Lulu BHAKTA for psychiatry at [facility] and Ezio for therapy at [facility]. Previous Psych Admissions: multiple-[facility] (last December 2021), [facility], [facility] Do You Have Access To A Gun?: No History of Previous Suicide Attempt: Yes Describe Attempts in the Past: via overdose, last May 2022 Past Medication Trials: per chart review: many including multiple monotherapy antipsychotic trials >3, she has felt history of dual therapy with olanzapine and seroquel Past Head Trauma/Neuro History History of Concussion/Seizure: No Allergies Allergy/AdvReac Type Severity Reaction Status Date / Time sulfamethoxazole Allergy Mild Difficulty Verified 11/21/22 13:53 [From Bactrim] Breathing trimethoprim [From Bactrim] Allergy Mild Difficulty Verified 11/21/22 13:53 Breathing Home Medications Medication Instructions Recorded Confirmed Type benztropine 1 mg tablet 1 mg PO HS 30 days #30 tabs 09/14/21 12/01/22 Rx olanzapine 10 mg tablet 10 mg PO HS 30 days #30 tabs 09/14/21 12/01/22 Rx olanzapine 20 mg tablet 20 mg PO HS 30 days #30 tabs 09/14/21 12/01/22 Rx olanzapine 5 mg tablet 5 mg PO DAILY 30 days #30 tabs 09/14/21 12/01/22 Rx cyanocobalamin (vitamin B-12) 1,000 mcg PO QAM #90 tabs 10/08/21 12/01/22 Rx 1,000 mcg tablet (Vitamin B-12) hydroxyzine HCl 25 mg tablet 25 mg PO DAILY PRN Anxiety 10/08/21 12/01/22 History zolpidem 10 mg tablet (Ambien) 10 mg PO HS PRN Insomnia 01/06/22 12/01/22 History hydrochlorothiazide 25 mg tablet 25 mg PO DAILY #90 tabs 03/01/22 12/01/22 Rx BD AutoShield Duo Pen Needle 30 #300 ea 03/23/22 12/01/22 Rx gauge x 3/16" (pen needle,diabetic dual safty) lancets 30 gauge (ReadyLance #200 ea 03/25/22 12/01/22 Rx Safety Lancets) insulin detemir U-100 100 unit/mL See Rx Instructions subcut BID 90 06/14/22 12/01/22 Rx (3 mL) subcutaneous pen (Levemir days #15 Boxes FlexTouch U-100 Insulin) acetaminophen 325 mg tablet 325 mg PO QID PRN pain #360 tabs 08/30/22 12/01/22 Rx (Tylenol) aspirin 81 mg tablet,delayed 81 mg PO QAM #90 tabs 08/30/22 12/01/22 Rx release ergocalciferol (vitamin D2) 1,250 50,000 unit PO WK #12 caps 08/30/22 12/01/22 Rx mcg (50,000 unit) capsule (Vitamin D2) fenofibrate micronized 130 mg 130 mg PO QAM #90 caps 08/30/22 12/01/22 Rx capsule ferrous sulfate 325 mg (65 mg 325 mg PO QAM #90 tabs 08/30/22 12/01/22 Rx iron) tablet melatonin 5 mg capsule 5 mg PO HS PRN insomnia #90 caps 08/30/22 12/01/22 Rx blood sugar diagnostic (OneTouch #200 ea 09/09/22 12/01/22 Rx Ultra Test strips) empagliflozin 10 mg tablet 10 mg PO QAM 30 days #30 tabs 09/12/22 12/01/22 Rx (Jardiance) liraglutide 0.6 mg/0.1 mL (18 mg/3 1.8 mg (0.3 mL) subcut DAILY 30 10/03/22 12/01/22 Rx mL) subcutaneous pen injector days #9 mL (Victoza 3-Antione) metformin 500 mg tablet,extended 500 mg PO BID 30 days #60 tabs 10/12/22 12/01/22 Rx release 24 hr methimazole 10 mg tablet 10 mg PO QAM 30 days #30 tabs 10/12/22 12/01/22 Rx rosuvastatin 20 mg tablet 20 mg PO DAILY #90 tabs 11/17/22 12/01/22 Rx Family History Family History of: Depression Alcohol History Hx of Alcohol Use Over the Past 12 Months: No AUDIT Total Score: 0 Smoking Use Have You Smoked or Used Tobacco Products in the Last 30 Days: No Smoking Status: Former smoker Substance History Hx of Prescription Med Misuse Over the Past 12 Months: No Hx of Over the Counter Med Misuse Over the Past 12 Months: No Hx of Inhalent Misuse Over the Past 12 Months: No Hx of Organic Substance Use Over the Past 12 Months: No Hx of Illegal Substances/Street Drug Use Over Past 12 Months: No Problems as a Result of Past Substance Use: None Identified Personal History Living Arrangements: Personal Care Facility Born In: [facility]. 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 in 2011- DEANNA->( Tx 9 months ) no longer PPD need Suicidal ideation Suicidal ideations UTI (urinary tract infection) Vaginitis Vitamin D deficiency Surgical History Hx of bilateral breast reduction surgery Hx of tonsillectomy Family History Father FHx: ischemic heart disease before age 50 Cardiac disorder Unknown Ovarian cancer Uncle Prostate cancer Grandfather Myocardial infarction Grandmother Cancer Denies family history of Breast cancer Social History Smoking Status: Former smoker Hx Alcohol Use: No Hx Substance Use: No Preferred Language: Slovenian Communication Ability: Effective Visual Impairment: No Limitations 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: Normal C++ Quant Developer Required: No Beliefs That Will Affect Care: Jainism marital status: Single Current Living Situation: Personal Care Facility Current Living Situation Comment: [facility] current occupational status: unemployed Feels Safe at Home: Yes Dental Care, Regularly: Yes Physical Activity Frequency: 1-2 Times per Week Seatbelt Use: always Gender Identity: Female Assistive Devices: Glasses Review of Systems Review of Systems: All systems reviewed & are unremarkable except as noted in HPI & below Physical Exam Psychiatric: Orientation: alert and oriented x 3 Apperance: appropriately dressed and appropriately groomed Eye Contact: + fair eye contact Motor Behavior: steady gait and station and no abnormal motor movements Speech: normal rate/rhythm/volume of speech Affect: + depressed affect and + flat affect Mood: + depressed mood and + anxious mood Thought Process: + circumstantial thought process Thought Content: + paranoid, + loneliness and + guilt Suicidal Thoughts: denies suicidal plan (none for hospital, plans of overdose prior to admission) and denies suicidal intent; + reports suicidal thoughts (intermittent SI) Homicidal Thoughts: denies homicidal thoughts Hallucinations: no auditory hallucinations and no visual hallucinations Cognition: recent memory grossly intact, remote memory grossly intact, attention grossly intact and language grossly intact Estimated Intelligence: consistent with education level Insight: + limited insight Judgment: + limited judgement Vital Signs (Past 24 Hours): Last Vital Signs Temp 37.1 C 12/01/22 10:44 Pulse 80 12/01/22 10:44 Resp 16 12/01/22 10:44 BP 161/81 H 12/01/22 10:44 Pulse Ox 97 12/01/22 10:44 O2 Del Method Room Air 12/01/22 10:44 Exam Statement: A physical exam was performed in the ED by Dr. Calero for the purposes of medical clearance. I accept that physical as correct and adequate for the purposes of the inpatient physical exam. Results & Data ([facility]) Laboratory Results Laboratory Results - last 24 hr 12/01/22 12/01/22 12/01/22 05:05 05:05 05:05 WBC 11.63 H RBC 5.23 Hgb 14.1 Hct 41.4 MCV 79.2 L MCH 27.0 MCHC 34.1 RDW Std Deviation 38.1 RDW Coeff of Abel 13.3 Plt Count 367 MPV 8.8 L Immature Gran % (Auto) 0.7 Neut % (Auto) 60.7 Lymph % (Auto) 28.4 Mills % (Auto) 7.2 Eos % (Auto) 2.3 Baso % (Auto) 0.7 Neut # (Auto) 7.06 H Lymph # (Auto) 3.30 Mills # (Auto) 0.84 H Eos # (Auto) 0.27 Baso # (Auto) 0.08 Immature Gran # (Auto) 0.08 Sodium 140 Potassium 3.5 Chloride 109 H Carbon Dioxide 21 Anion Gap 10 BUN 14 Creatinine 0.70 Est Cr Clr Drug Dosing 93.6 Est GFR ( Amer) 111.5 Est GFR (Non-Af Amer) 96.2 BUN/Creatinine Ratio 20.0 Glucose 199 H POC Glucose Calcium 8.8 Total Bilirubin 0.4 AST 16 ALT 25 Alkaline Phosphatase 109 H Total Protein 6.7 Albumin 4.2 Globulin 2.5 Albumin/Globulin Ratio 1.7 TSH 1.090 Urine Color Urine Appearance Urine pH Ur Specific Campton Urine Protein Urine Glucose (UA) Urine Ketones Urine Blood Urine Nitrite Urine Bilirubin Urine Urobilinogen Ur Leukocyte Esterase Urine WBC (Auto) Urine RBC (Auto) U Hyaline Cast (Auto) U Epithel Cells (Auto) Urine Bacteria (Auto) Urine Crystals Calcium Oxalate Crystal Salicylates Urine Opiates Screen Ur Methadone, Qual Acetaminophen Urine Barbiturates Ur Phencyclidine (PCP) U Amphetamin/Meth Scrn MDMA (Ecstasy) Screen U Benzodiazepines Scrn Ur Cocaine Metabolite U Marijuana (THC) Screen Ethyl Alcohol mg/dL SARS-CoV-2, RNA, NAAT 12/01/22 12/01/22 12/01/22 05:05 05:05 05:05 WBC RBC Hgb Hct MCV MCH MCHC RDW Std Deviation RDW Coeff of Abel Plt Count MPV Immature Gran % (Auto) Neut % (Auto) Lymph % (Auto) Mills % (Auto) Eos % (Auto) Baso % (Auto) Neut # (Auto) Lymph # (Auto) Mills # (Auto) Eos # (Auto) Baso # (Auto) Immature Gran # (Auto) Sodium Potassium Chloride Carbon Dioxide Anion Gap BUN Creatinine Est Cr Clr Drug Dosing Est GFR ( Amer) Est GFR (Non-Af Amer) BUN/Creatinine Ratio Glucose POC Glucose Calcium Total Bilirubin AST ALT Alkaline Phosphatase Total Protein Albumin Globulin Albumin/Globulin Ratio TSH Urine Color Urine Appearance Urine pH Ur Specific Campton Urine Protein Urine Glucose (UA) Urine Ketones Urine Blood Urine Nitrite Urine Bilirubin Urine Urobilinogen Ur Leukocyte Esterase Urine WBC (Auto) Urine RBC (Auto) U Hyaline Cast (Auto) U Epithel Cells (Auto) Urine Bacteria (Auto) Urine Crystals Calcium Oxalate Crystal Salicylates < 3.0 L Urine Opiates Screen Ur Methadone, Qual Acetaminophen < 3 L Urine Barbiturates Ur Phencyclidine (PCP) U Amphetamin/Meth Scrn MDMA (Ecstasy) Screen U Benzodiazepines Scrn Ur Cocaine Metabolite U Marijuana (THC) Screen Ethyl Alcohol mg/dL < 10.0 SARS-CoV-2, RNA, NAAT NEGATIVE 12/01/22 12/01/22 12/01/22 05:22 05:22 12:28 WBC RBC Hgb Hct MCV MCH MCHC RDW Std Deviation RDW Coeff of Abel Plt Count MPV Immature Gran % (Auto) Neut % (Auto) Lymph % (Auto) Mills % (Auto) Eos % (Auto) Baso % (Auto) Neut # (Auto) Lymph # (Auto) Mills # (Auto) Eos # (Auto) Baso # (Auto) Immature Gran # (Auto) Sodium Potassium Chloride Carbon Dioxide Anion Gap BUN Creatinine Est Cr Clr Drug Dosing Est GFR ( Amer) Est GFR (Non-Af Amer) BUN/Creatinine Ratio Glucose POC Glucose 187 H Calcium Total Bilirubin AST ALT Alkaline Phosphatase Total Protein Albumin Globulin Albumin/Globulin Ratio TSH Urine Color Yellow Urine Appearance Cloudy A Urine pH 5.0 Ur Specific Campton 1.041 H Urine Protein Negative Urine Glucose (UA) 3+ H Urine Ketones Trace H Urine Blood Negative Urine Nitrite Negative Urine Bilirubin Negative Urine Urobilinogen Negative Ur Leukocyte Esterase Negative Urine WBC (Auto) >30 H Urine RBC (Auto) 0-4 U Hyaline Cast (Auto) 1-5 U Epithel Cells (Auto) >30 H Urine Bacteria (Auto) 1+ H Urine Crystals Not Reportable Calcium Oxalate Crystal Present A Salicylates Urine Opiates Screen Neg Ur Methadone, Qual Neg Acetaminophen Urine Barbiturates Neg Ur Phencyclidine (PCP) Neg U Amphetamin/Meth Scrn Neg MDMA (Ecstasy) Screen Neg U Benzodiazepines Scrn Neg Ur Cocaine Metabolite Neg U Marijuana (THC) Screen Neg Ethyl Alcohol mg/dL SARS-CoV-2, RNA, NAAT Current Inpatient Medications Current Inpatient Medications: Current Inpatient Medications Acetaminophen (Acetaminophen 325 Mg Tab) 650 mg PO Q4H PRN PRN Reason: Headache or Minor Fever Stop: 12/31/22 11:05 Al Hydrox/Mg Hydrox/Simethicone (Aluminum/Magnesium Susp 30 Ml Udc) 30 ml PO Q4H PRN PRN Reason: GI Upset Stop: 12/31/22 11:05 Bismuth Subsalicylate (Bismuth Subsalicylate Liqd 236 Ml) 15 ml PO PRN PRN PRN Reason: Loose Stool Stop: 12/31/22 11:05 Hydroxyzine HCl (Hydroxyzine Hcl 25 Mg Tab) 50 mg PO HSZ PRN PRN Reason: Insomnia Stop: 12/31/22 11:05 Hydroxyzine HCl (Hydroxyzine Hcl 25 Mg Tab) 25 mg PO Q4H PRN PRN Reason: Anxiety Stop: 12/31/22 11:05 Insulin Aspart (Insulin Aspart Per Unit Charge) 0 units SC ACHS ANNAMARIA Stop: 12/31/22 11:59 Last Admin: 12/01/22 13:03 Dose: 29 units Magnesium Hydroxide (Magnesium Hydroxide Susp 30 Ml Udc) 30 ml PO DAILY PRN PRN Reason: Constipation Stop: 12/31/22 11:05 Miscellaneous Information (Pharmacy Glycemic Mgmt Consult) 1 each N/A UD PRN; Protocol PRN Reason: Consult Stop: 12/31/22 11:49 Sodium Chloride (Sodium Chloride 0.65% Na Soln 45 Ml ([facility])) 1 - 2 sprays NA PRN PRN PRN Reason: Nasal Dryness/Congestion Stop: 12/31/22 11:05
[2022-12-01] MEDS ORDERED: MELATONIN 3 MG TAB PO PRN (13:42)
--- NOTE | 2022-12-01 14:32 | Pharmacy Report ---
Pharmacy Glycemic Short Note 2 - Date of Service December 01, 2022 - Glycemic Short BSG Results (Last 24 hours): 12/01/22 12/01/22 05:05 12:28 Glucose 199 H POC Glucose 187 H OUTPATIENT ANTIDIABETIC REGIMEN: * Levemir 140 units qAM, 100 units qPM * Metformin, empaglifozin, liraglutide * A1c = 9% (10/31/22) ASSESSMENT: * Sanjuanita is a 57 you admitted for voluntary commitment for suicidal ideation with a plan and worsening psychosis. * Patient is known to the Pharmacy Glycemic service. * Patient uses Levemir for basal insulin at home. She refuses to use any other basal insulin. This was discussed with nursing and Dr. Oliva. Nursing will attempt to obtain medication from [facility]. If unable to obtain, provider will fill out non formulary request for Levemir. * In the meantime, will add Novolog coverage at 00 and 04 for additional insulin coverage while patient is refusing basal. Continue home oral agents. PLAN FOR INPATIENT GLYCEMIC CONTROL: * Continue metformin and empagliflozin * Basal insulin * On hold - patient refused to use basal insulin products stocked at [facility] * Bolus insulin * NovoLog per scale ACHS or Q6hrs while NPO * Goal Range: Low 110 mg/dL - High 140 mg/dL * Correction Factor: 10 mg/dL/unit * Nutritional / Prandial insulin per carb ratio of 1 unit per 3.5 grams CHO consumed
[2022-12-01] MEDS ORDERED: OLANZapine 5 MG TABLET PO SCH (15:00)
[2022-12-01] MEDS: metFORMIN HCL ER 500 MG TABCR PO SCH (17:38)
[2022-12-01] MEDS ORDERED: OLANZapine 10 MG TAB PO SCH ×2 (22:00)
[2022-12-01] MEDS ORDERED: OLANZapine 20 MG TABLET PO SCH (22:00)
[2022-12-02] MEDS: INSULIN ASPART PER UNIT CHARGE SC SCH ×6 (01:12→20:44)
[2022-12-02 07:52] LABS: Estimated Average Glucose 223 mg/dl; Hemoglobin A1C 9.4 % (4.5-5.6)
[2022-12-02 08:01] LABS: Cholesterol 206 mg/dl (0-200); Glucose Fasting 187 mg/dl (70-99); HDL Cholesterol 33 mg/dl; Triglycerides 610 mg/dl (0-150)
[2022-12-02 08:02] LABS: Chol HDL Ratio 6.2 (0-5)
[2022-12-02] MEDS: metFORMIN HCL ER 500 MG TABCR PO SCH ×2 (08:53→17:33)
[2022-12-02] MEDS: CYANOCOBALAMIN (B-12) 500 MCG TABLET PO SCH (08:53)
[2022-12-02] MEDS: methIMAzole 5 MG TABLET PO SCH (08:53)
[2022-12-02] MEDS: ROSUVASTATIN CALCIUM 20 MG TAB PO SCH ×2 (08:53→08:59)
[2022-12-02] MEDS: FERROUS SULFATE 325 MG TAB PO SCH (08:54)
[2022-12-02] MEDS: lisinopril 40 MG TAB PO SCH (08:54)
[2022-12-02] MEDS: hydroCHLOROthiazide 25 MG TAB PO SCH (08:54)
[2022-12-02] MEDS: ASPIRIN 81 MG ECTAB PO SCH (08:54)
[2022-12-02] MEDS: FENOFIBRATE NANOCRYSTALLIZED 145 MG TABLET PO SCH (08:54)
[2022-12-02] MEDS: EMPAGLIFLOZIN 10 MG TAB PO SCH (08:54)
[2022-12-02] MEDS ORDERED: [UNRECOGNIZED DRUG - REMARK] SC SCH (12:30)
[2022-12-02] MEDS: INSULIN DETEMIR SC SCH ×2 (13:22→20:47)
--- NOTE | 2022-12-02 14:56 | Pharmacy Report ---
Pharmacy Glycemic Short Note 2 - Date of Service December 02, 2022 - Glycemic Short BSG Results (Last 24 hours): 12/01/22 12/01/22 12/02/22 16:52 20:30 04:48 POC Glucose 140 H 172 H 205 H Fasting Glucose 12/02/22 12/02/22 12/02/22 06:57 08:15 12:32 POC Glucose 168 H 159 H Fasting Glucose 187 H OUTPATIENT ANTIDIABETIC REGIMEN: * Levemir 140 units qAM, 100 units qPM * Metformin, empaglifozin, liraglutide * A1c = 9% (10/31/22) ASSESSMENT: 12/02 * Sanjuanita received 57 units of novolog yesterday. No basal insulin administered. BSGs surprisingly well controlled despite lack of basal insulin. * Unable to obtain outpatient supply of Levemir, therefore non-form request form was submitted. Pharmacy has ordered in one vial of Levemir. * Will start Levemir today with lunch. Doses based on what patient has tolerated during past admissions. 12/01 * Sanjuanita is a 57 you admitted for voluntary commitment for suicidal ideation with a plan and worsening psychosis. * Patient is known to the Pharmacy Glycemic service. * Patient uses Levemir for basal insulin at home. She refuses to use any other basal insulin. This was discussed with nursing and Dr. Oliva. Nursing will attempt to obtain medication from [facility]. If unable to obtain, provider will fill out non formulary request for Levemir. * In the meantime, will add Novolog coverage at 00 and 04 for additional insulin coverage while patient is refusing basal. Continue home oral agents. PLAN FOR INPATIENT GLYCEMIC CONTROL: * Continue metformin and empagliflozin * Basal insulin * Levemir 100 units SQ at lunch * Levemir 70 units SQ at 2200 * Reassess dosing tomorrow AM * Bolus insulin * NovoLog per scale ACHS or Q6hrs while NPO * Goal Range: Low 110 mg/dL - High 140 mg/dL * Correction Factor: 10 mg/dL/unit * Nutritional / Prandial insulin per carb ratio of 1 unit per 3.5 grams CHO consumed
[2022-12-02] MEDS ORDERED: GLUCAGON FOR INJ 1 MG VIAL IM PRN (15:00)
[2022-12-02] MEDS ORDERED: GLUCOSE 10 TAB/TUBE PO PRN (15:00)
[2022-12-02] MEDS ORDERED: GLUCOSE 40% GEL 15 GM TUBE PO PRN (15:00)
[2022-12-02] MEDS ORDERED: DEXTROSE 50% 50 ML SYRINGE IV PRN (15:00)
[2022-12-02] MEDS ORDERED: CARBOHYDRATES FOR HYPOGLYCEMIA PO PRN (15:00)
--- NOTE | 2022-12-02 15:14 | Psychiatric Progress Note ---
Date of Service December 02, 2022 Impression / Recommendations Impression Sanjuanita is a 57 year old woman with a history of schizophrenia and depression who was admitted for worsening depression, guilt, paranoia, and SI with thoughts of overdosing in the context of medication non-adherence. Diagnostically consistent with acute exacerbation of schizophrenia and depression. She is deemed in need of psychiatric hospitalization for diagnostic clarification, safety and stabilization, medication management and development of further coping skills. MNPR due to psychosis and paranoia 12/02/2022: Mood slightly improved today with reduced intensity of SI. Still with some paranoia/delusions about some of her medications but accepted everything this morning. Reviewed EKG which showed QTc of 474ms. Discussed this was slightly elevated but less than 500ms so felt to be safe to continue with olanzapine at current dose which is her preference. Reviewed fasting lipid panel which showed elevated TGs (though not as high as in the past) and total cholesterol and elevated HgA1c of 9.4%. Reviewed her past psychiatric records since 2018 and she's been on olanzapine since that time. No evidence for prior FERNANDEZ trials but unfortunately no easily administrable FERNANDEZ option for olanzapine. History of haldol, stelazine, prolixin, risperidone, seroquel, clozapine and abilify in the past. Has been on Effexor XR in the past for depression, she's not interested in this currently. (1) Schizophrenia: (2) Depression with suicidal ideation: (3) Diabetes mellitus type 2, uncontrolled: (4) Dyslipidemia: (5) Hypertension: Plan 12/02/2022: Switch Crestor to 10mg BID as she states this is the only way she will take it as "doesn't like" the 20mg dose tab. Switch back to olanzapine 5mg at 1500 and 30mg HS. 12/01/2022: The patient was admitted to the [facility] ([facility]) on q15 min checks (behavioral with suicide precautions) for safety. The patient will participate in group, recreational, and milieu therapies and will be offered additional individual and family sessions as clinically appropriate. -Restart prior to admission medications including olanzapine 35mg HS -EKG to assess QTc given above FDA max dose of olanzapine -Fasting glucose, HbA1c, lipid panel tomorrow AM -Restart prior to admission medications for BP, diabetes, HLD, elevated TGs, HTN Inventory Assets Strengths: has supportive housing, supportive mother, outpatient providers Needs: exploring challenges at [facility], re-establish with outpt CM Suicide Risk Level Suicide Risk Level: Moderate (q15 min suicide checks) (increased psychosis with SI with plan prior to admission but feels safe in the hospital and agrees to let provider or nurses know if she begins to feel unable to remain safe or develops SI with plan or intent) Risk Factors Assessment : Yes Do You Have Access To A Gun?: No Health Problems: Yes Mental Health Diagnoses: Yes Substance Use Disorders: No Previous Attempt: Yes Family History of Suicide: No Previous Psychiatric Hospitalization: Yes Protective Factors Assessment Employed: No Stable Relationships: Yes Supportive Family: Yes Good Rapport with Provider: Yes Interval History Identifying Information SANJUANITA OLSON is a 57-year-old F who currently lives at [facility], has a history of schizophrenia and depression, and was admitted on 12/01/22 10:23 on a 201 voluntary commitment for suicidal ideation with a plan and worsening psychosis. Chief Complaint "I'm a little sleepy today". Review of Systems Sleep Information Total Hours of Sleep: 8 Sleep Comments: woken up for BSG checks throughout night Meal Information Percent Meal Consumed - Lunch: 75 Percent Meal Consumed - Dinner: 90 Subjective Subjective Patient was seen & assessed and interval progress reviewed with treatment team nursing and social work. Attending groups. Today reports feeling a little tired but states she slept well. Continues to have concerns about specific medications such as only agreeing to specific forms of insulin and stating she "doesn't like" Crestor but agrees to take it if it's administered as 1/2 tab twice daily. States she preferred having olanzapine 5mg dose in late afternoon as this helps with her anxiety. Doesn't want to make any changes to her psychotropic medications as "olanzapine works really well for my mood". Declines offer to try an additional antidepressant for depression and anxiety. Still with SI but feels this is "a little bit better" today. Allowed fasting bloodwork and EKG. Physical Exam Psychiatric Orientation: alert and oriented x 3 Apperance: appropriately dressed and appropriately groomed Eye Contact: + fair eye contact Motor Behavior: steady gait and station and no abnormal motor movements Speech: normal rate/rhythm/volume of speech Affect: + depressed affect and + flat affect Mood: + depressed mood and + anxious mood Thought Process: + circumstantial thought process Thought Content: + paranoid, + loneliness and + guilt Suicidal Thoughts: denies suicidal plan and denies suicidal intent; + reports suicidal thoughts (intermittent thoughts) Homicidal Thoughts: denies homicidal thoughts Hallucinations: no auditory hallucinations and no visual hallucinations Cognition: recent memory grossly intact, remote memory grossly intact, attention grossly intact and language grossly intact Estimated Intelligence: consistent with education level Insight: + limited insight Judgment: + limited judgement Vital Signs (Past 24 Hours) Last Vital Signs Temp 36.5 C 12/02/22 06:35 Pulse 80 12/02/22 06:36 Resp 16 12/02/22 06:35 BP 137/91 12/02/22 06:36 Pulse Ox 97 12/01/22 10:44 O2 Del Method Room Air 12/01/22 10:44 Results & Data ([facility]) Laboratory Results Laboratory Results - last 24 hr 12/01/22 12/01/22 12/02/22 16:52 20:30 04:48 POC Glucose 140 H 172 H 205 H Fasting Glucose Estimat Average Glucose Hemoglobin A1c Triglycerides Cholesterol LDL Cholesterol, Calc VLDL Cholesterol, Calc HDL Cholesterol Cholesterol/HDL Ratio 12/02/22 12/02/22 12/02/22 06:57 06:57 08:15 POC Glucose 168 H Fasting Glucose 187 H Estimat Average Glucose 223 Hemoglobin A1c 9.4 H Triglycerides 610 H Cholesterol 206 H LDL Cholesterol, Calc TNP VLDL Cholesterol, Calc TNP HDL Cholesterol 33 Cholesterol/HDL Ratio 6.2 H 12/02/22 12:32 POC Glucose 159 H Fasting Glucose Estimat Average Glucose Hemoglobin A1c Triglycerides Cholesterol LDL Cholesterol, Calc VLDL Cholesterol, Calc HDL Cholesterol Cholesterol/HDL Ratio Current Inpatient Medications Current Inpatient Medications: Current Inpatient Medications Acetaminophen (Acetaminophen 325 Mg Tab) 650 mg PO Q4H PRN PRN Reason: Headache or Minor Fever Stop: 12/31/22 11:05 Al Hydrox/Mg Hydrox/Simethicone (Aluminum/Magnesium Susp 30 Ml Udc) 30 ml PO Q4H PRN PRN Reason: GI Upset Stop: 12/31/22 11:05 Aspirin (Aspirin 81 Mg Ectab) 81 mg PO QAM ANNAMARIA Stop: 01/01/23 08:59 Last Admin: 12/02/22 08:54 Dose: 81 mg Benztropine Mesylate (Benztropine Mesylate 1 Mg Tab) 1 mg PO HS PRN PRN Reason: muscle stiffness Stop: 12/31/22 21:59 Bismuth Subsalicylate (Bismuth Subsalicylate Liqd 236 Ml) 15 ml PO PRN PRN PRN Reason: Loose Stool Stop: 12/31/22 11:05 Cyanocobalamin (Cyanocobalamin (B-12) 500 Mcg Tablet) 1,000 mcg PO QAM [facility] Stop: 01/01/23 08:59 Last Admin: 12/02/22 08:53 Dose: 1,000 mcg Dextrose (Dextrose 50% 50 Ml Syringe) 25 - 50 ml IV UD PRN; Protocol PRN Reason: Hypoglycemia Protocol Stop: 01/01/23 14:59 Empagliflozin (Empagliflozin 10 Mg Tab) 10 mg PO DAILY [facility] Stop: 01/01/23 08:59 Last Admin: 12/02/22 08:54 Dose: 10 mg Ergocalciferol (Ergocalciferol 50,000 Units 1250 Mcg Cap) 50,000 units PO Tu@0800 [facility] Stop: 01/05/23 07:59 Fenofibrate (Fenofibrate Nanocrystallized 145 Mg Tablet) 145 mg PO QAM [facility] Stop: 01/01/23 08:59 Last Admin: 12/02/22 08:54 Dose: 145 mg Ferrous Sulfate (Ferrous Sulfate 325 Mg Tab) 325 mg PO QAM [facility] Stop: 01/01/23 08:59 Last Admin: 12/02/22 08:54 Dose: 325 mg Glucagon (Glucagon For Inj 1 Mg Vial) 1 mg IM UD PRN; Protocol PRN Reason: Hypoglycemia Protocol Stop: 01/01/23 14:59 Glucose (Glucose 40% Gel 15 Gm Tube) 15 - 30 gm PO UD PRN; Protocol PRN Reason: Hypoglycemia Protocol Stop: 01/01/23 14:59 Glucose (Glucose 10 Tab/Tube) 4 - 8 tab PO UD PRN; Protocol PRN Reason: Hypoglycemia Protocol Stop: 01/01/23 14:59 Hydrochlorothiazide (Hydrochlorothiazide 25 Mg Tab) 25 mg PO QAM [facility] Stop: 01/01/23 08:59 Last Admin: 12/02/22 08:54 Dose: 25 mg Hydroxyzine HCl (Hydroxyzine Hcl 25 Mg Tab) 50 mg PO HSZ PRN PRN Reason: Insomnia Stop: 12/31/22 11:05 Hydroxyzine HCl (Hydroxyzine Hcl 25 Mg Tab) 25 mg PO Q4H PRN PRN Reason: Anxiety Stop: 12/31/22 11:05 Insulin Aspart (Insulin Aspart Per Unit Charge) 0 units SC ACHS [facility] Stop: 12/31/22 11:59 Last Admin: 12/02/22 12:53 Dose: 19 units Insulin Detemir (Insulin Detemir *Non-Formulary*) 100 units SC Q24H [facility] Stop: 01/01/23 13:14 Last Admin: 12/02/22 13:22 Dose: 100 units Insulin Detemir (Insulin Detemir *Non-Formulary*) 70 units SC 2200 [facility] Stop: 12/02/22 23:59 Lisinopril (Lisinopril 40 Mg Tab) 40 mg PO QAM [facility] Stop: 01/01/23 08:59 Last Admin: 12/02/22 08:54 Dose: 40 mg Magnesium Hydroxide (Magnesium Hydroxide Susp 30 Ml Udc) 30 ml PO DAILY PRN PRN Reason: Constipation Stop: 12/31/22 11:05 Melatonin (Melatonin 3 Mg Tab) 6 mg PO HS PRN PRN Reason: insomnia Stop: 12/31/22 13:41 Metformin HCl (Metformin Hcl Er 500 Mg Tabcr) 500 mg PO BIDM [facility] Stop: 12/31/22 17:44 Last Admin: 12/02/22 08:53 Dose: 500 mg Methimazole (Methimazole 5 Mg Tablet) 10 mg PO DAILY [facility] Stop: 01/01/23 08:59 Last Admin: 12/02/22 08:53 Dose: 10 mg Miscellaneous (Carbohydrates For Hypoglycemia ) 15 - 30 gm PO UD PRN PRN Reason: Hypoglycemia Treatment Stop: 01/01/23 14:59 Miscellaneous Information (Pharmacy Glycemic Mgmt Consult) 1 each N/A UD PRN; Protocol PRN Reason: Consult Stop: 12/31/22 11:49 Olanzapine (Olanzapine 10 Mg Tab) 35 mg PO HS [facility] Stop: 12/31/22 21:59 Last Admin: 12/01/22 20:40 Dose: 35 mg Rosuvastatin Calcium (Rosuvastatin Calcium 20 Mg Tab) 20 mg PO DAILY [facility] Stop: 01/01/23 08:59 Last Admin: 12/02/22 08:59 Dose: Not Given Sodium Chloride (Sodium Chloride 0.65% Na Soln 45 Ml ([place])) 1 - 2 sprays NA PRN PRN PRN Reason: Nasal Dryness/Congestion Stop: 12/31/22 11:05 Zolpidem Tartrate (Zolpidem Tartrate 10 Mg Tab) 10 mg PO HS PRN PRN Reason: Insomnia Stop: 12/31/22 13:33 Mental Health & Subst Abuse Tx Psychiatrist Name of Psychiatrist: Kalee Lux Psychiatrist's Date Of Appointment With Psychiatric Provider: 12/21/2022 Time of Appointment with Psychiatrist: 12:45pm Psychiatric Appointment Comment: [id number], [place] [id number] Therapist Name of Therapist: Ezio Stephen @ [employer]) Therapist's Date of Therapist Appointment: 12/08/2022 Time of Therapist Appointment: 11am Therapy Appointment Comment: [id number], [place] [id number] Muffle Worker Name of Muffle Worker: [employer] Phone Number for Muffle Worker: [phone] Post Discharge Appointments Primary Care Physician Name Of Family Doctor/PCP: Dr. Reece [facility] Date of Future Appointment with PCP: 12/15/2022 Time of Appointment with PCP: 10:30am Provider Appointment Comment: [address], [place] [address] Partial or Psych Rehab Name of Partial or Psych Rehab: [facility] Phone Number of Partial or Psych Rehab: [phone] Partial or Psych Rehab Appointment Comment: [id number], [place] [address] Parachute Accessories Attacher Name of Parachute Accessories Attacher: Ingrid Wilson Time of Appointment with Parachute Accessories Attacher: resume regular session appointments Parachute Accessories Attacher Appointment Comment: will continue to meet in home/community Contact Information Discharge Phone Number: [phone] Discharge Address: [facility]: [address] [place] [address] [address] [place] [address] (1) Schizophrenia Schizophrenia type: paranoid schizophrenia Qualified Code(s): F20.0 - Paranoid schizophrenia (3) Diabetes mellitus type 2, uncontrolled Glycemic state: with hyperglycemia Qualified Code(s): E11.65 - Type 2 diabetes mellitus with hyperglycemia
--- NOTE | 2022-12-02 17:12 | Electrocardiogram Report ---
Test Reason : Blood Pressure : / mmHG Vent. Rate : 083 BPM Atrial Rate : 083 BPM P-R Int : 140 ms QRS Dur : 094 ms QT Int : 404 ms P-R-T Axes : 047 105 068 degrees QTc Int : 474 ms Normal sinus rhythm Left atrial enlargement Rightward axis Abnormal ECG When compared with ECG of 04-SEP-2021 12:07, No significant change was found Confirmed by Jani Issa ([id number]) on 12/02/2022 5:11:50 PM Referred By: REFERRED SELF Confirmed By:Jani Issa
[2022-12-02] MEDS: OLANZapine 10 MG TAB PO SCH (20:41)
[2022-12-03] MEDS: ROSUVASTATIN CALCIUM 10 MG TAB PO SCH ×2 (09:19→20:54)
[2022-12-03] MEDS: metFORMIN HCL ER 500 MG TABCR PO SCH ×2 (09:19→17:14)
[2022-12-03] MEDS: lisinopril 40 MG TAB PO SCH (09:20)
[2022-12-03] MEDS: CYANOCOBALAMIN (B-12) 500 MCG TABLET PO SCH (09:20)
[2022-12-03] MEDS: ASPIRIN 81 MG ECTAB PO SCH (09:20)
[2022-12-03] MEDS: hydroCHLOROthiazide 25 MG TAB PO SCH (09:20)
[2022-12-03] MEDS: FERROUS SULFATE 325 MG TAB PO SCH (09:20)
[2022-12-03] MEDS: EMPAGLIFLOZIN 10 MG TAB PO SCH (09:20)
[2022-12-03] MEDS: FENOFIBRATE NANOCRYSTALLIZED 145 MG TABLET PO SCH (09:23)
[2022-12-03] MEDS: INSULIN DETEMIR SC SCH ×2 (09:24→20:53)
[2022-12-03] MEDS: INSULIN ASPART PER UNIT CHARGE SC SCH ×4 (09:31→20:51)
[2022-12-03] MEDS: methIMAzole 5 MG TABLET PO SCH (09:36)
[2022-12-03] MEDS ORDERED: OLANZapine 5 MG TABLET PO SCH (12:00)
--- NOTE | 2022-12-03 13:29 | Psychiatric Progress Note ---
Date of Service December 03, 2022 Impression / Recommendations Impression Sanjuanita is a 57 year old woman with a history of schizophrenia and depression who was admitted for worsening depression, guilt, paranoia, and SI with thoughts of overdosing in the context of medication non-adherence. Diagnostically consistent with acute exacerbation of schizophrenia and depression. She is deemed in need of psychiatric hospitalization for diagnostic clarification, safety and stabilization, medication management and development of further coping skills. MNPR due to psychosis and paranoia 12/03/2022: Pt reports mood today as "pretty good". She says "the medication is working really well" and she very much wishes not to make any changes. She says she thinks she "just got kind of overwhelmed by feeling stuck" at her personal long-term. 12/02/2022: Mood slightly improved today with reduced intensity of SI. Still with some paranoia/delusions about some of her medications but accepted everything this morning. Reviewed EKG which showed QTc of 474ms. Discussed this was slightly elevated but less than 500ms so felt to be safe to continue with olanzapine at current dose which is her preference. Reviewed fasting lipid panel which showed elevated TGs (though not as high as in the past) and total cholesterol and elevated HgA1c of 9.4%. Reviewed her past psychiatric records since 2018 and she's been on olanzapine since that time. No evidence for prior FERNANDEZ trials but unfortunately no easily administrable FERNANDEZ option for olanzapine. History of haldol, stelazine, prolixin, risperidone, seroquel, clozapine and abilify in the past. Has been on Effexor XR in the past for depression, she's not interested in this currently. (1) Schizophrenia: (2) Depression with suicidal ideation: (3) Diabetes mellitus type 2, uncontrolled: (4) Dyslipidemia: (5) Hypertension: Plan 12/03/2022: * continue olanzapine 5 mg QAM and 30 mg QHS * continue rosuvastatin 10 mg BID * vitamin B12 and 25-OH vitamin D levels given that pt is on long-term repla cement but no recent levels available to assess efficicacy of replacement doses 12/02/2022: Switch Crestor to 10mg BID as she states this is the only way she will take it as "doesn't like" the 20mg dose tab. Switch back to olanzapine 5mg at 1500 and 30mg HS. 12/01/2022: The patient was admitted to [facility] ([facility] inpatient mental health unit) on q15 min checks (behavioral with suicide precautions) for safety. The patient will participate in group, recreational, and milieu therapies and will be offered additional individual and family sessions as clinically appropriate. -Restart prior to admission medications including olanzapine 35mg HS -EKG to assess QTc given above FDA max dose of olanzapine -Fasting glucose, HbA1c, lipid panel tomorrow AM -Restart prior to admission medications for BP, diabetes, HLD, elevated TGs, HTN Inventory Assets Strengths: has supportive housing, supportive mother, outpatient providers Needs: exploring challenges at [facility], re-establish with outpt CM Suicide Risk Level Suicide Risk Level: Moderate (q15 min suicide checks) (increased psychosis with SI with plan prior to admission but feels safe in the hospital and agrees to let provider or nurses know if she begins to feel unable to remain safe or develops SI with plan or intent) Risk Factors Assessment : Yes Do You Have Access To A Gun?: No Health Problems: Yes Mental Health Diagnoses: Yes Substance Use Disorders: No Previous Attempt: Yes Family History of Suicide: No Previous Psychiatric Hospitalization: Yes Protective Factors Assessment Employed: No Stable Relationships: Yes Supportive Family: Yes Good Rapport with Provider: Yes Interval History Identifying Information SANJUANITA OLSON is a 57-year-old F who currently lives at [facility], has a history of schizophrenia and depression, and was admitted on 12/01/22 10:23 on a 201 voluntary commitment for suicidal ideation with a plan and worsening psychosis. Chief Complaint "Pretty good". Review of Systems Sleep Information Total Hours of Sleep: 6.5 Sleep Comments: woken up for BSG checks throughout night Meal Information Percent Meal Consumed - Breakfast: 100 Percent Meal Consumed - Lunch: 75 Percent Meal Consumed - Dinner: 100 Subjective Subjective Patient was seen & assessed and interval progress reviewed with nursing and social work Physical Exam Psychiatric Orientation: alert and oriented x 3 Apperance: appropriately dressed and appropriately groomed Eye Contact: good eye contact Motor Behavior: steady gait and station and no abnormal motor movements Speech: normal rate/rhythm/volume of speech Affect: + constricted affect Mood: + dysphoric mood Thought Process: goal directed thought process Thought Content: reality based without delusions, + loneliness and + guilt Suicidal Thoughts: denies suicidal thoughts, denies suicidal plan and denies suicidal intent Homicidal Thoughts: denies homicidal thoughts Hallucinations: no auditory hallucinations and no visual hallucinations Cognition: recent memory grossly intact, remote memory grossly intact, attention grossly intact and language grossly intact Estimated Intelligence: consistent with education level Insight: + limited insight and + fair insight Judgment: + limited judgement and + fair judgement Vital Signs (Past 24 Hours) Last Vital Signs Temp 36.5 C 12/03/22 06:41 Pulse 82 12/03/22 06:41 Resp 16 12/03/22 06:41 BP 138/81 12/03/22 06:41 Pulse Ox 97 12/01/22 10:44 O2 Del Method Room Air 12/01/22 10:44 Results & Data ([facility]) Laboratory Results Laboratory Results - last 24 hr 12/02/22 12/02/22 12/03/22 17:02 20:34 08:45 POC Glucose 176 H 219 H 149 H 12/03/22 12:10 POC Glucose 148 H Current Inpatient Medications Current Inpatient Medications: Current Inpatient Medications Acetaminophen (Acetaminophen 325 Mg Tab) 650 mg PO Q4H PRN PRN Reason: Headache or Minor Fever Stop: 12/31/22 11:05 Al Hydrox/Mg Hydrox/Simethicone (Aluminum/Magnesium Susp 30 Ml Udc) 30 ml PO Q4H PRN PRN Reason: GI Upset Stop: 12/31/22 11:05 Aspirin (Aspirin 81 Mg Ectab) 81 mg PO QAM [facility] Stop: 01/01/23 08:59 Last Admin: 12/03/22 09:20 Dose: 81 mg Benztropine Mesylate (Benztropine Mesylate 1 Mg Tab) 1 mg PO HS PRN PRN Reason: muscle stiffness Stop: 12/31/22 21:59 Bismuth Subsalicylate (Bismuth Subsalicylate Liqd 236 Ml) 15 ml PO PRN PRN PRN Reason: Loose Stool Stop: 12/31/22 11:05 Cyanocobalamin (Cyanocobalamin (B-12) 500 Mcg Tablet) 1,000 mcg PO QAM [facility] Stop: 01/01/23 08:59 Last Admin: 12/03/22 09:20 Dose: 1,000 mcg Dextrose (Dextrose 50% 50 Ml Syringe) 25 - 50 ml IV UD PRN; Protocol PRN Reason: Hypoglycemia Protocol Stop: 01/01/23 14:59 Empagliflozin (Empagliflozin 10 Mg Tab) 10 mg PO DAILY [facility] Stop: 01/01/23 08:59 Last Admin: 12/03/22 09:20 Dose: 10 mg Ergocalciferol (Ergocalciferol 50,000 Units 1250 Mcg Cap) 50,000 units PO Tu@0800 [facility] Stop: 01/05/23 07:59 Fenofibrate (Fenofibrate Nanocrystallized 145 Mg Tablet) 145 mg PO QAM [facility] Stop: 01/01/23 08:59 Last Admin: 12/03/22 09:23 Dose: 72.5 mg Ferrous Sulfate (Ferrous Sulfate 325 Mg Tab) 325 mg PO QAM [facility] Stop: 01/01/23 08:59 Last Admin: 12/03/22 09:20 Dose: 325 mg Glucagon (Glucagon For Inj 1 Mg Vial) 1 mg IM UD PRN; Protocol PRN Reason: Hypoglycemia Protocol Stop: 01/01/23 14:59 Glucose (Glucose 40% Gel 15 Gm Tube) 15 - 30 gm PO UD PRN; Protocol PRN Reason: Hypoglycemia Protocol Stop: 01/01/23 14:59 Glucose (Glucose 10 Tab/Tube) 4 - 8 tab PO UD PRN; Protocol PRN Reason: Hypoglycemia Protocol Stop: 01/01/23 14:59 Hydrochlorothiazide (Hydrochlorothiazide 25 Mg Tab) 25 mg PO QAM [facility] Stop: 01/01/23 08:59 Last Admin: 12/03/22 09:20 Dose: 25 mg Hydroxyzine HCl (Hydroxyzine Hcl 25 Mg Tab) 50 mg PO HSZ PRN PRN Reason: Insomnia Stop: 12/31/22 11:05 Hydroxyzine HCl (Hydroxyzine Hcl 25 Mg Tab) 25 mg PO Q4H PRN PRN Reason: Anxiety Stop: 12/31/22 11:05 Insulin Aspart (Insulin Aspart Per Unit Charge) 0 units SC ACHS [facility] Stop: 12/31/22 11:59 Last Admin: 12/03/22 13:15 Dose: 25 units Insulin Detemir (Insulin Detemir *Non-Formulary*) 100 units SC Q24H [facility] Stop: 01/01/23 13:14 Last Admin: 12/03/22 09:24 Dose: 100 units Insulin Detemir (Insulin Detemir *Non-Formulary*) 70 units SC 2200 [facility] Stop: 01/01/23 23:59 Last Admin: 12/02/22 20:47 Dose: 70 units Lisinopril (Lisinopril 40 Mg Tab) 40 mg PO QAM [facility] Stop: 01/01/23 08:59 Last Admin: 12/03/22 09:20 Dose: 40 mg Magnesium Hydroxide (Magnesium Hydroxide Susp 30 Ml Udc) 30 ml PO DAILY PRN PRN Reason: Constipation Stop: 12/31/22 11:05 Melatonin (Melatonin 3 Mg Tab) 6 mg PO HS PRN PRN Reason: insomnia Stop: 12/31/22 13:41 Metformin HCl (Metformin Hcl Er 500 Mg Tabcr) 500 mg PO BIDM [facility] Stop: 12/31/22 17:44 Last Admin: 12/03/22 09:19 Dose: 500 mg Methimazole (Methimazole 5 Mg Tablet) 10 mg PO DAILY [facility] Stop: 01/01/23 08:59 Last Admin: 12/03/22 09:36 Dose: Not Given Miscellaneous (Carbohydrates For Hypoglycemia ) 15 - 30 gm PO UD PRN PRN Reason: Hypoglycemia Treatment Stop: 01/01/23 14:59 Miscellaneous Information (Pharmacy Glycemic Mgmt Consult) 1 each N/A UD PRN; Protocol PRN Reason: Consult Stop: 12/31/22 11:49 Olanzapine (Olanzapine 10 Mg Tab) 30 mg PO HS [facility] Stop: 01/01/23 21:59 Last Admin: 12/02/22 20:41 Dose: 30 mg Olanzapine (Olanzapine 5 Mg Tablet) 5 mg PO DAILYBL [facility] Stop: 01/02/23 11:59 Last Admin: 12/03/22 12:20 Dose: 5 mg Rosuvastatin Calcium (Rosuvastatin Calcium 10 Mg Tab) 10 mg PO BID [facility] Stop: 01/02/23 08:59 Last Admin: 12/03/22 09:19 Dose: 10 mg Sodium Chloride (Sodium Chloride 0.65% Na Soln 45 Ml ([place])) 1 - 2 sprays NA PRN PRN PRN Reason: Nasal Dryness/Congestion Stop: 12/31/22 11:05 Zolpidem Tartrate (Zolpidem Tartrate 10 Mg Tab) 10 mg PO HS PRN PRN Reason: Insomnia Stop: 12/31/22 13:33 Mental Health & Subst Abuse Tx Psychiatrist Name of Psychiatrist: Kalee Lux Psychiatrist's Date Of Appointment With Psychiatric Provider: 12/21/2022 Time of Appointment with Psychiatrist: 12:45pm Psychiatric Appointment Comment: [id number], [place] [address] Therapist Name of Therapist: Ezio Stephen @ [employer] [facility] Therapist's Date of Therapist Appointment: 12/08/2022 Time of Therapist Appointment: 11am Therapy Appointment Comment: [address], [place] [address] Shipping And Receiving Operator Name of Shipping And Receiving Operator: [employer] Phone Number for Shipping And Receiving Operator: [phone] Post Discharge Appointments Primary Care Physician Name Of Family Doctor/PCP: Dr. Reece [facility] Date of Future Appointment with PCP: 12/15/2022 Time of Appointment with PCP: 10:30am Provider Appointment Comment: [address], [place] [address] Partial or Psych Rehab Name of Partial or Psych Rehab: [facility] Phone Number of Partial or Psych Rehab: [phone] Partial or Psych Rehab Appointment Comment: [id number], [place] [address] [employer] Supervisor Name of [employer] Supervisor: Ingrid Wilson Time of Appointment with [employer] P[employer] Supervisor: resume regular session appointments [employer] Supervisor Appointment Comment: will continue to meet in home/community Contact Information Discharge Phone Number: [phone] Discharge Address: [facility]: [address] [place] [address] [address] [place] [address] (1) Schizophrenia Schizophrenia type: paranoid schizophrenia Qualified Code(s): F20.0 - Paranoid schizophrenia (3) Diabetes mellitus type 2, uncontrolled Glycemic state: with hyperglycemia Qualified Code(s): E11.65 - Type 2 diabetes mellitus with hyperglycemia
[2022-12-03 20:19] LABS: Vitamin D, 25 Hydrox 33.7 ng/ml (30-100)
[2022-12-03] MEDS: OLANZapine 10 MG TAB PO SCH (20:54)
--- NOTE | 2022-12-04 08:53 | Discharge Summary ---
Date of Service December 04, 2022 History of Present Illness Sanjuanita presented to the ED for worsening suicidal ideation with plan of possibly overdosing on pills (though notes she doesn't have access to her medications). She doesn't want to return to [facility] because "it[place] so [place] away from [facility] She expresses concern with her medications as "they keep fiddling around with my medications" and therefore feels she can't take medication there or return there. Her previous roommate at [facility] . She hasn't been taking her medications consistently. She feels that housing is her biggest current stressor. She's also been worrying about things "that I know I'm not at fault for" but "I hurt people, I didn't mean to". Her main goals are working on housing and "getting my meds straight" and going to groups to "talk about my guilt and depression". Further recent symptoms reviewed and confirmed as documented by ED psych CM on 12/01/2022 : "Sanjuanita stated she was recently blessed at worship and since then she has been feeling extremely guilty and feels because she was blessed, she is the reason there are bad things happening in the world. She reported she feels God does not love her and it has been very upsetting. She also shared she is paranoid about taking her medications because she believes they may harm her or her child. She went on to share that she lost a one time and ever since then she has imagined she is . She reported she knows she is not really , but feels like she is." Physical Exam Psychiatric Orientation: alert, oriented to person, oriented to place, oriented to time and cooperative Apperance: appropriately dressed and appropriately groomed Eye Contact: + fair eye contact Motor Behavior: steady gait and station and no abnormal motor movements Speech: normal rate/rhythm/volume of speech Affect: + constricted affect Mood: + anxious mood Thought Process: goal directed thought process and + circumstantial thought process Thought Content: reality based without delusions and + loneliness Suicidal Thoughts: denies suicidal thoughts, denies suicidal plan and denies suicidal intent Homicidal Thoughts: denies homicidal thoughts Hallucinations: no auditory hallucinations and no visual hallucinations Cognition: recent memory grossly intact, remote memory grossly intact, attention grossly intact and language grossly intact Estimated Intelligence: consistent with education level Insight: + fair insight Judgment: + fair judgement Vital Signs (Past 24 Hours) Last Vital Signs Temp 36.8 C 12/04/22 06:33 Pulse 79 12/04/22 06:34 Resp 16 12/04/22 06:33 BP 126/77 12/04/22 06:34 Pulse Ox 97 12/01/22 10:44 O2 Del Method Room Air 12/01/22 10:44 Principal Diagnosis Schizophrenia Psychiatric Data See daily stay summary. In short, safety was maintained and the patient was cooperative with care. Medication changes included switch of statin to rosuvastatin and they tolerated this well. A family session was held and safety plan was completed prior to discharge. 12/03/2022: Pt reports mood today as "pretty good". She says "the medication is working really well" and she very much wishes not to make any changes. She says she thinks she "just got kind of overwhelmed by feeling stuck" at her personal retirement. 12/02/2022: Mood slightly improved today with reduced intensity of SI. Still with some paranoia/delusions about some of her medications but accepted everything this morning. Reviewed EKG which showed QTc of 474ms. Discussed this was slightly elevated but less than 500ms so felt to be safe to continue with olanzapine at current dose which is her preference. Reviewed fasting lipid panel which showed elevated TGs (though not as high as in the past) and total cholesterol and elevated HgA1c of 9.4%. Reviewed her past psychiatric records since 2018 and she's been on olanzapine since that time. No evidence for prior FERNANDEZ trials but unfortunately no easily administrable FERNANDEZ option for olanzapine. History of haldol, stelazine, prolixin, risperidone, seroquel, clozapine and abilify in the past. Has been on Effexor XR in the past for depression, she's not interested in this currently. Day of Discharge Assessment Today the patient voices readiness for discharge. They note improvement in mood and deny thoughts to harm self or others. Thoughts remain organized and they are improved from admission. There is no evidence of psychosis. They agree to take mediations as prescribed and keep follow-up appointments. They are stable for discharge to outpatient level of care. Transition of Care Transition Of Care Record: was reviewed with the patient Advance Directives Advance Directives Information Provided: Yes Advance Directives: No Mental Health Advance Directive: No Advance Directives on File: No Living Will: No Power of Hoop Coiling Machine Operator: No Advance Directives Reason:: Declines as Mental Health Visit. Suicide Risk Level Suicide Risk Level: Low (q15 min observation checks) Risk Factors Assessment : Yes Do You Have Access To A Gun?: No Health Problems: Yes Mental Health Diagnoses: Yes Substance Use Disorders: No Previous Attempt: Yes Family History of Suicide: No Previous Psychiatric Hospitalization: Yes Protective Factors Assessment Employed: No Stable Relationships: Yes Supportive Family: Yes Good Rapport with Provider: Yes Tobacco Cessation at Discharge Tobacco Cessation Medication Prescribed at Discharge: Not Applicable/Non-Smoker Total Time Total Time Spent: Greater Than 30 Minutes Total Time Includes: Examination of the patient, Discharge Planning, Medication Reconciliation, Communication with other providers and As well as (documentation ) Discharge Data Lab Results 12/01/22 12/01/22 12/01/22 05:05 05:05 05:05 WBC 11.63 H RBC 5.23 Hgb 14.1 Hct 41.4 MCV 79.2 L MCH 27.0 MCHC 34.1 RDW Std Deviation 38.1 RDW Coeff of Abel 13.3 Plt Count 367 MPV 8.8 L Immature Gran % (Auto) 0.7 Neut % (Auto) 60.7 Lymph % (Auto) 28.4 Harrison % (Auto) 7.2 Eos % (Auto) 2.3 Baso % (Auto) 0.7 Neut # (Auto) 7.06 H Lymph # (Auto) 3.30 Harrison # (Auto) 0.84 H Eos # (Auto) 0.27 Baso # (Auto) 0.08 Immature Gran # (Auto) 0.08 Sodium 140 Potassium 3.5 Chloride 109 H Carbon Dioxide 21 Anion Gap 10 BUN 14 Creatinine 0.70 Est Cr Clr Drug Dosing 93.6 Est GFR ( Amer) 111.5 Est GFR (Non-Af Amer) 96.2 BUN/Creatinine Ratio 20.0 Glucose 199 H POC Glucose Fasting Glucose Estimat Average Glucose Hemoglobin A1c Calcium 8.8 Total Bilirubin 0.4 AST 16 ALT 25 Alkaline Phosphatase 109 H Total Protein 6.7 Albumin 4.2 Globulin 2.5 Albumin/Globulin Ratio 1.7 Triglycerides Cholesterol LDL Cholesterol, Calc VLDL Cholesterol, Calc HDL Cholesterol Cholesterol/HDL Ratio Vitamin B12 25-OH Vitamin D Total Folate TSH 1.090 Urine Color Urine Appearance Urine pH Ur Specific Cresson Urine Protein Urine Glucose (UA) Urine Ketones Urine Blood Urine Nitrite Urine Bilirubin Urine Urobilinogen Ur Leukocyte Esterase Urine WBC (Auto) Urine RBC (Auto) U Hyaline Cast (Auto) U Epithel Cells (Auto) Urine Bacteria (Auto) Urine Crystals Calcium Oxalate Crystal Salicylates Urine Opiates Screen Ur Methadone, Qual Acetaminophen Urine Barbiturates Ur Phencyclidine (PCP) U Amphetamin/Meth Scrn MDMA (Ecstasy) Screen U Benzodiazepines Scrn Ur Cocaine Metabolite U Marijuana (THC) Screen Ethyl Alcohol mg/dL SARS-CoV-2, RNA, NAAT 12/01/22 12/01/22 12/01/22 05:05 05:05 05:05 WBC RBC Hgb Hct MCV MCH MCHC RDW Std Deviation RDW Coeff of Abel Plt Count MPV Immature Gran % (Auto) Neut % (Auto) Lymph % (Auto) Harrison % (Auto) Eos % (Auto) Baso % (Auto) Neut # (Auto) Lymph # (Auto) Harrison # (Auto) Eos # (Auto) Baso # (Auto) Immature Gran # (Auto) Sodium Potassium Chloride Carbon Dioxide Anion Gap BUN Creatinine Est Cr Clr Drug Dosing Est GFR ( Amer) Est GFR (Non-Af Amer) BUN/Creatinine Ratio Glucose POC Glucose Fasting Glucose Estimat Average Glucose Hemoglobin A1c Calcium Total Bilirubin AST ALT Alkaline Phosphatase Total Protein Albumin Globulin Albumin/Globulin Ratio Triglycerides Cholesterol LDL Cholesterol, Calc VLDL Cholesterol, Calc HDL Cholesterol Cholesterol/HDL Ratio Vitamin B12 25-OH Vitamin D Total Folate TSH Urine Color Urine Appearance Urine pH Ur Specific Cresson Urine Protein Urine Glucose (UA) Urine Ketones Urine Blood Urine Nitrite Urine Bilirubin Urine Urobilinogen Ur Leukocyte Esterase Urine WBC (Auto) Urine RBC (Auto) U Hyaline Cast (Auto) U Epithel Cells (Auto) Urine Bacteria (Auto) Urine Crystals Calcium Oxalate Crystal Salicylates < 3.0 L Urine Opiates Screen Ur Methadone, Qual Acetaminophen < 3 L Urine Barbiturates Ur Phencyclidine (PCP) U Amphetamin/Meth Scrn MDMA (Ecstasy) Screen U Benzodiazepines Scrn Ur Cocaine Metabolite U Marijuana (THC) Screen Ethyl Alcohol mg/dL < 10.0 SARS-CoV-2, RNA, NAAT NEGATIVE 04/06/23 04/06/23 04/06/23 05:22 05:22 12:28 WBC RBC Hgb Hct MCV MCH MCHC RDW Std Deviation RDW Coeff of Abel Plt Count MPV Immature Gran % (Auto) Neut % (Auto) Lymph % (Auto) Harrison % (Auto) Eos % (Auto) Baso % (Auto) Neut # (Auto) Lymph # (Auto) Harrison # (Auto) Eos # (Auto) Baso # (Auto) Immature Gran # (Auto) Sodium Potassium Chloride Carbon Dioxide Anion Gap BUN Creatinine Est Cr Clr Drug Dosing Est GFR ( Amer) Est GFR (Non-Af Amer) BUN/Creatinine Ratio Glucose POC Glucose 187 H Fasting Glucose Estimat Average Glucose Hemoglobin A1c Calcium Total Bilirubin AST ALT Alkaline Phosphatase Total Protein Albumin Globulin Albumin/Globulin Ratio Triglycerides Cholesterol LDL Cholesterol, Calc VLDL Cholesterol, Calc HDL Cholesterol Cholesterol/HDL Ratio Vitamin B12 25-OH Vitamin D Total Folate TSH Urine Color Yellow Urine Appearance Cloudy A Urine pH 5.0 Ur Specific Cresson 1.041 H Urine Protein Negative Urine Glucose (UA) 3+ H Urine Ketones Trace H Urine Blood Negative Urine Nitrite Negative Urine Bilirubin Negative Urine Urobilinogen Negative Ur Leukocyte Esterase Negative Urine WBC (Auto) >30 H Urine RBC (Auto) 0-4 U Hyaline Cast (Auto) 1-5 U Epithel Cells (Auto) >30 H Urine Bacteria (Auto) 1+ H Urine Crystals Not Reportable Calcium Oxalate Crystal Present A Salicylates Urine Opiates Screen Neg Ur Methadone, Qual Neg Acetaminophen Urine Barbiturates Neg Ur Phencyclidine (PCP) Neg U Amphetamin/Meth Scrn Neg MDMA (Ecstasy) Screen Neg U Benzodiazepines Scrn Neg Ur Cocaine Metabolite Neg U Marijuana (THC) Screen Neg Ethyl Alcohol mg/dL SARS-CoV-2, RNA, NAAT 12/01/22 12/01/22 12/02/22 16:52 20:30 04:48 WBC RBC Hgb Hct MCV MCH MCHC RDW Std Deviation RDW Coeff of Abel Plt Count MPV Immature Gran % (Auto) Neut % (Auto) Lymph % (Auto) Harrison % (Auto) Eos % (Auto) Baso % (Auto) Neut # (Auto) Lymph # (Auto) Harrison # (Auto) Eos # (Auto) Baso # (Auto) Immature Gran # (Auto) Sodium Potassium Chloride Carbon Dioxide Anion Gap BUN Creatinine Est Cr Clr Drug Dosing Est GFR ( Amer) Est GFR (Non-Af Amer) BUN/Creatinine Ratio Glucose POC Glucose 140 H 172 H 205 H Fasting Glucose Estimat Average Glucose Hemoglobin A1c Calcium Total Bilirubin AST ALT Alkaline Phosphatase Total Protein Albumin Globulin Albumin/Globulin Ratio Triglycerides Cholesterol LDL Cholesterol, Calc VLDL Cholesterol, Calc HDL Cholesterol Cholesterol/HDL Ratio Vitamin B12 25-OH Vitamin D Total Folate TSH Urine Color Urine Appearance Urine pH Ur Specific Cresson Urine Protein Urine Glucose (UA) Urine Ketones Urine Blood Urine Nitrite Urine Bilirubin Urine Urobilinogen Ur Leukocyte Esterase Urine WBC (Auto) Urine RBC (Auto) U Hyaline Cast (Auto) U Epithel Cells (Auto) Urine Bacteria (Auto) Urine Crystals Calcium Oxalate Crystal Salicylates Urine Opiates Screen Ur Methadone, Qual Acetaminophen Urine Barbiturates Ur Phencyclidine (PCP) U Amphetamin/Meth Scrn MDMA (Ecstasy) Screen U Benzodiazepines Scrn Ur Cocaine Metabolite U Marijuana (THC) Screen Ethyl Alcohol mg/dL SARS-CoV-2, RNA, NAAT 12/02/22 12/02/22 12/02/22 06:57 06:57 08:15 WBC RBC Hgb Hct MCV MCH MCHC RDW Std Deviation RDW Coeff of Abel Plt Count MPV Immature Gran % (Auto) Neut % (Auto) Lymph % (Auto) Harrison % (Auto) Eos % (Auto) Baso % (Auto) Neut # (Auto) Lymph # (Auto) Harrison # (Auto) Eos # (Auto) Baso # (Auto) Immature Gran # (Auto) Sodium Potassium Chloride Carbon Dioxide Anion Gap BUN Creatinine Est Cr Clr Drug Dosing Est GFR ( Amer) Est GFR (Non-Af Amer) BUN/Creatinine Ratio Glucose POC Glucose 168 H Fasting Glucose 187 H Estimat Average Glucose 223 Hemoglobin A1c 9.4 H Calcium Total Bilirubin AST ALT Alkaline Phosphatase Total Protein Albumin Globulin Albumin/Globulin Ratio Triglycerides 610 H Cholesterol 206 H LDL Cholesterol, Calc TNP VLDL Cholesterol, Calc TNP HDL Cholesterol 33 Cholesterol/HDL Ratio 6.2 H Vitamin B12 25-OH Vitamin D Total Folate TSH Urine Color Urine Appearance Urine pH Ur Specific Cresson Urine Protein Urine Glucose (UA) Urine Ketones Urine Blood Urine Nitrite Urine Bilirubin Urine Urobilinogen Ur Leukocyte Esterase Urine WBC (Auto) Urine RBC (Auto) U Hyaline Cast (Auto) U Epithel Cells (Auto) Urine Bacteria (Auto) Urine Crystals Calcium Oxalate Crystal Salicylates Urine Opiates Screen Ur Methadone, Qual Acetaminophen Urine Barbiturates Ur Phencyclidine (PCP) U Amphetamin/Meth Scrn MDMA (Ecstasy) Screen U Benzodiazepines Scrn Ur Cocaine Metabolite U Marijuana (THC) Screen Ethyl Alcohol mg/dL SARS-CoV-2, RNA, NAAT 12/02/22 12/02/22 12/02/22 12:32 17:02 20:34 WBC RBC Hgb Hct MCV MCH MCHC RDW Std Deviation RDW Coeff of Abel Plt Count MPV Immature Gran % (Auto) Neut % (Auto) Lymph % (Auto) Harrison % (Auto) Eos % (Auto) Baso % (Auto) Neut # (Auto) Lymph # (Auto) Harrison # (Auto) Eos # (Auto) Baso # (Auto) Immature Gran # (Auto) Sodium Potassium Chloride Carbon Dioxide Anion Gap BUN Creatinine Est Cr Clr Drug Dosing Est GFR ( Amer) Est GFR (Non-Af Amer) BUN/Creatinine Ratio Glucose POC Glucose 159 H 176 H 219 H Fasting Glucose Estimat Average Glucose Hemoglobin A1c Calcium Total Bilirubin AST ALT Alkaline Phosphatase Total Protein Albumin Globulin Albumin/Globulin Ratio Triglycerides Cholesterol LDL Cholesterol, Calc VLDL Cholesterol, Calc HDL Cholesterol Cholesterol/HDL Ratio Vitamin B12 25-OH Vitamin D Total Folate TSH Urine Color Urine Appearance Urine pH Ur Specific Cresson Urine Protein Urine Glucose (UA) Urine Ketones Urine Blood Urine Nitrite Urine Bilirubin Urine Urobilinogen Ur Leukocyte Esterase Urine WBC (Auto) Urine RBC (Auto) U Hyaline Cast (Auto) U Epithel Cells (Auto) Urine Bacteria (Auto) Urine Crystals Calcium Oxalate Crystal Salicylates Urine Opiates Screen Ur Methadone, Qual Acetaminophen Urine Barbiturates Ur Phencyclidine (PCP) U Amphetamin/Meth Scrn MDMA (Ecstasy) Screen U Benzodiazepines Scrn Ur Cocaine Metabolite U Marijuana (THC) Screen Ethyl Alcohol mg/dL SARS-CoV-2, RNA, NAAT 12/03/22 12/03/22 12/03/22 08:45 12:10 16:55 WBC RBC Hgb Hct MCV MCH MCHC RDW Std Deviation RDW Coeff of Abel Plt Count MPV Immature Gran % (Auto) Neut % (Auto) Lymph % (Auto) Harrison % (Auto) Eos % (Auto) Baso % (Auto) Neut # (Auto) Lymph # (Auto) Harrison # (Auto) Eos # (Auto) Baso # (Auto) Immature Gran # (Auto) Sodium Potassium Chloride Carbon Dioxide Anion Gap BUN Creatinine Est Cr Clr Drug Dosing Est GFR ( Amer) Est GFR (Non-Af Amer) BUN/Creatinine Ratio Glucose POC Glucose 149 H 148 H 218 H Fasting Glucose Estimat Average Glucose Hemoglobin A1c Calcium Total Bilirubin AST ALT Alkaline Phosphatase Total Protein Albumin Globulin Albumin/Globulin Ratio Triglycerides Cholesterol LDL Cholesterol, Calc VLDL Cholesterol, Calc HDL Cholesterol Cholesterol/HDL Ratio Vitamin B12 25-OH Vitamin D Total Folate TSH Urine Color Urine Appearance Urine pH Ur Specific Cresson Urine Protein Urine Glucose (UA) Urine Ketones Urine Blood Urine Nitrite Urine Bilirubin Urine Urobilinogen Ur Leukocyte Esterase Urine WBC (Auto) Urine RBC (Auto) U Hyaline Cast (Auto) U Epithel Cells (Auto) Urine Bacteria (Auto) Urine Crystals Calcium Oxalate Crystal Salicylates Urine Opiates Screen Ur Methadone, Qual Acetaminophen Urine Barbiturates Ur Phencyclidine (PCP) U Amphetamin/Meth Scrn MDMA (Ecstasy) Screen U Benzodiazepines Scrn Ur Cocaine Metabolite U Marijuana (THC) Screen Ethyl Alcohol mg/dL SARS-CoV-2, RNA, NAAT 12/03/22 12/03/22 12/04/22 18:44 20:11 08:33 WBC RBC Hgb Hct MCV MCH MCHC RDW Std Deviation RDW Coeff of Abel Plt Count MPV Immature Gran % (Auto) Neut % (Auto) Lymph % (Auto) Harrison % (Auto) Eos % (Auto) Baso % (Auto) Neut # (Auto) Lymph # (Auto) Harrison # (Auto) Eos # (Auto) Baso # (Auto) Immature Gran # (Auto) Sodium Potassium Chloride Carbon Dioxide Anion Gap BUN Creatinine Est Cr Clr Drug Dosing Est GFR ( Amer) Est GFR (Non-Af Amer) BUN/Creatinine Ratio Glucose POC Glucose 181 H 131 H Fasting Glucose Estimat Average Glucose Hemoglobin A1c Calcium Total Bilirubin AST ALT Alkaline Phosphatase Total Protein Albumin Globulin Albumin/Globulin Ratio Triglycerides Cholesterol LDL Cholesterol, Calc VLDL Cholesterol, Calc HDL Cholesterol Cholesterol/HDL Ratio Vitamin B12 671 25-OH Vitamin D Total 33.7 Folate 15.74 TSH Urine Color Urine Appearance Urine pH Ur Specific Cresson Urine Protein Urine Glucose (UA) Urine Ketones Urine Blood Urine Nitrite Urine Bilirubin Urine Urobilinogen Ur Leukocyte Esterase Urine WBC (Auto) Urine RBC (Auto) U Hyaline Cast (Auto) U Epithel Cells (Auto) Urine Bacteria (Auto) Urine Crystals Calcium Oxalate Crystal Salicylates Urine Opiates Screen Ur Methadone, Qual Acetaminophen Urine Barbiturates Ur Phencyclidine (PCP) U Amphetamin/Meth Scrn MDMA (Ecstasy) Screen U Benzodiazepines Scrn Ur Cocaine Metabolite U Marijuana (THC) Screen Ethyl Alcohol mg/dL SARS-CoV-2, RNA, NAAT Hospital Course (1) Schizophrenia: (2) Depression with suicidal ideation: (3) Diabetes mellitus type 2, uncontrolled: (4) Dyslipidemia: (5) Hypertension: Plan 12/03/2022: * continue olanzapine 5 mg QAM and 30 mg QHS * continue rosuvastatin 10 mg BID * vitamin B12 and 25-OH vitamin D levels given that pt is on long-term replacement but no recent levels available to assess efficicacy of replacement doses 12/02/2022: Switch Crestor to 10mg BID as she states this is the only way she will take it as "doesn't like" the 20mg dose tab. Switch back to olanzapine 5mg at 1500 and 30mg HS. 12/01/2022: The patient was admitted to the [facility] mental [facility] unit) on q15 min checks (behavioral with suicide precautions) for safety. The p atient will participate in group, recreational, and milieu therapies and will be offered additional individual and family sessions as clinically appropriate. -Restart prior to admission medications including olanzapine 35mg HS -EKG to assess QTc given above FDA max dose of olanzapine -Fasting glucose, HbA1c, lipid panel tomorrow AM -Restart prior to admission medications for BP, diabetes, HLD, elevated TGs, HTN Mental Health & Subst Abuse Tx Psychiatrist Name of Psychiatrist: Kalee Lux Psychiatrist's Date Of Appointment With Psychiatric Provider: 12/21/2022 Time of Appointment with Psychiatrist: 12:45pm Psychiatric Appointment Comment: [phone], [place] [address] Therapist Name of Therapist: Ezio Stephen @ [employer]) Therapist's Date of Therapist Appointment: 12/08/2022 Time of Therapist Appointment: 11am Therapy Appointment Comment: [phone], [place] [address] Motor Vehicle Emissions Inspector Name of Motor Vehicle Emissions Inspector: [facility] Phone Number for Motor Vehicle Emissions Inspector: [phone] Post Discharge Appointments Primary Care Physician Name Of Family Doctor/PCP: Dr. Reece Primary Care Date of Future Appointment with PCP: 12/15/2022 Time of Appointment with PCP: 10:30am Provider Appointment Comment: [address], [place] [address] Partial or Psych Rehab Name of [facility] or Psych Rehab: [facility] Phone Number of Partial or Psych Rehab: [phone] Partial or Psych Rehab Appointment [facility] [id number] [facility] [place] [address] Modeling Agent Name of Modeling Agent: Ingrid Wilson Time of Appointment with Modeling Agent: resume regular session appointments Modeling Agent Appointment Comment: will continue to meet in home/community Smoking Cessation Counseling Tobacco Cessation Medication Prescribed at Discharge: Not Applicable/Non-Smoker Contact Information Discharge Phone Number: [phone] Discharge Address: [facility]: [address] [place] [address] , [place] [address] Discharge Plan Discharge Items Patient Disposition: Home - Self-Care Reason For Visit: DEPRESSION/SUICIDAL Discharge Diagnosis: Schizophrenia Activity: Resume your previous activity Non-emergency contact: Primary Care Provider Call non-emergency contact if: you have any medication questions Follow-up/Referrals: Dillon Rogers MD [Primary Care Provider] - Diet: Carb Consistent or DM2 Addtl Attending Provider Instructions: SPECIAL CARE INSTRUCTIONS: 1. Follow through with your scheduled aftercare appointments. If unable to keep an appointment, please call to reschedule. 2. Take your medication only as prescribed. Medication should not be changed or stopped without the approval of your doctor. In the event of worsening symptoms or concerns about side effects, contact your doctor immediately. 3. Utilize new healthy coping skills, anger management skills, and stress management skills learned during your hospitalization. Journal feelings and process them with a support person. Identify stressors or situations that may result in relapse, deterioration or inappropriate behaviors and develop a plan to deal with those issues. 4. If your coping skills are ineffective and you are in crisis, contact your outpatient providers for direction. If unable to reach your providers, please call the [facility] CRISIS LINE AT , go to the [facility] walk-in center at [address], [address], [place], or go to the closest Emergency Room. 5. Avoid alcohol and un-prescribed drugs. 6. You have been provided with the Mental Health Advance Directives Pamphlet for your review. 7. Your condition is stable for discharge to outpatient level of care, but recovery is an ongoing process. Ifthoughts to harm yourself or others return, follow the safety plan developed during your stay. Planning for a safe return home includes securing weapons. Our treatment team recommends weaponsbe removed from the home until your outpatient provider reassesses your progress. In rare cases where the items themselvescannot be removed, guns and ammunitionshould be secured separatelyand keys stored by a reliable personoutside of the home. If you were admitted on an involuntary commitment, the police or other legal authorities may be involved in this process. AFTERCARE APPOINTMENTS: * Please call your insurance company prior to your scheduled appointment to confirm your aftercare providers are covered. Take your insurance information to your appointments. WHO TO CALL AND WHEN: Medical Emergencies: For questions or emergencies related to your hospital stay, please contact the Inpatient Behavioral Health Unit at [phone]. A substance abuse clinician is on-call 20/03 for the Behavioral Health Unit for emergencies At any time you feel your situation is an emergency, you may also call 911 immediately. Pending Studies at Discharge: No Stand-Alone Forms: [facility], Smoking Cessation Medications and DC Order Prescriptions: New lisinopril [Zestril] 40 mg Tablet 40 mg PO QAM 30 Days Qty: 30 0RF rosuvastatin 10 mg Tablet 10 mg PO BID 30 Days Qty: 60 0RF cholecalciferol (vitamin D3) 125 mcg (5,000 unit) Tablet 5,000 unit PO QAM 30 Days Qty: 30 0RF Continued cyanocobalamin (vitamin B-12) [Vitamin B-12] 1,000 mcg tablet 1,000 mcg PO QAM Qty: 90 3RF hydroxyzine HCl 25 mg tablet 25 mg PO DAILY PRN (Reason: Anxiety) hydrochlorothiazide 25 mg tablet 25 mg PO DAILY Qty: 90 3RF (DME) BD AutoShield Duo Pen Needle 30 gauge x 3/16" needle .ROUTE .MEDSUPPLY Qty: 300 3RF Rx Instructions: Use 3 times daily as directed (DME) lancets [ReadyLance Safety Lancets] 30 gauge misc See Rx Instructions .Route Qty: 200 3RF Rx Instructions: use twice daily Levemir FlexTouch U-100 Insuln 100 unit/mL (3 mL) insulin pen See Rx Instructions SQ BID 90 Days Qty: 15 3RF Rx Instructions: 140 units in the morning and 100 units in the evening subcut twice a day; 0800 and 2000 (DME) OneTouch Ultra Test Strip See Rx Instructions .Route Qty: 200 3RF Rx Instructions: test blood sugar twice daily Jardiance 10 mg tablet 10 mg PO QAM 30 Days Qty: 30 2RF Victoza 3-Antione 0.6 mg/0.1 mL (18 mg/3 mL) pen injector 1.8 mg subcut DAILY 30 Days Qty: 9 2RF metformin 500 mg tablet extended release 24 hr 500 mg PO BID 30 Days Qty: 60 2RF Rx Instructions: pt takes at 8am and 5pm methimazole 10 mg tablet 10 mg PO QAM 30 Days Qty: 30 2RF acetaminophen [Tylenol] 325 mg tablet 325 mg PO QID PRN (Reason: pain) Qty: 360 1RF aspirin 81 mg tablet,delayed release (DR/EC) 81 mg PO QAM Qty: 90 3RF fenofibrate micronized 130 mg capsule 130 mg PO QAM Qty: 90 3RF ferrous sulfate 325 mg (65 mg iron) tablet 325 mg PO QAM Qty: 90 3RF melatonin 5 mg capsule 5 mg PO HS PRN (Reason: insomnia) Qty: 90 3RF zolpidem [Ambien] 10 mg tablet 10 mg PO HS PRN (Reason: Insomnia) benztropine 1 mg tablet 1 mg PO HS 30 Days Qty: 30 0RF olanzapine 5 mg Tablet 5 mg PO DAILY 30 Days Qty: 30 0RF Rx Instructions: Daily at 1500 olanzapine 20 mg Tablet 20 mg PO HS 30 Days Qty: 30 0RF Discontinued rosuvastatin 20 mg tablet 20 mg PO DAILY Qty: 90 1RF ergocalciferol (vitamin D2) [Vitamin D2] 1,250 mcg (50,000 unit) capsule 50,000 unit PO WK Qty: 12 3RF Rx Instructions: on olanzapine 10 mg Tablet 10 mg PO HS 30 Days Qty: 30 0RF Discharge Orders: Discharge Order (Routine); Ordered 12/04/22 Ordered By: Baldomero Love Admission Data Admit Date/Time: 12/01/22 10:23 Attending Provider: Marleni Oliva Admit Provider: Marleni Oliva Primary Care Provider: Dillon Rogers V. Coding Level of Care Code 18515 D/C day mgmt > 30 min Diagnoses Schizophrenia F20.0 Schizophrenia type: paranoid schizophrenia Depression with suicidal ideation F32.A; R45.851 Diabetes mellitus type 2, uncontrolled E11.65 Glycemic state: with hyperglycemia Dyslipidemia E78.5 Hypertension I10 Time Spent (min) 36
[2022-12-04] MEDS ORDERED: CHOLECALCIFEROL 5,000 UNITS 125 MCG TAB PO SCH (09:00)
[2022-12-04] MEDS: EMPAGLIFLOZIN 10 MG TAB PO SCH (09:06)
[2022-12-04] MEDS: hydroCHLOROthiazide 25 MG TAB PO SCH (09:06)
[2022-12-04] MEDS: CYANOCOBALAMIN (B-12) 500 MCG TABLET PO SCH (09:06)
[2022-12-04] MEDS: FERROUS SULFATE 325 MG TAB PO SCH (09:06)
[2022-12-04] MEDS: ROSUVASTATIN CALCIUM 10 MG TAB PO SCH (09:06)
[2022-12-04] MEDS: FENOFIBRATE NANOCRYSTALLIZED 145 MG TABLET PO SCH (09:06)
[2022-12-04] MEDS: methIMAzole 5 MG TABLET PO SCH (09:06)
[2022-12-04] MEDS: metFORMIN HCL ER 500 MG TABCR PO SCH (09:06)
[2022-12-04] MEDS: ASPIRIN 81 MG ECTAB PO SCH (09:06)
[2022-12-04] MEDS: lisinopril 40 MG TAB PO SCH (09:07)
[2022-12-04] MEDS: INSULIN DETEMIR SC SCH (09:14)
[2022-12-04] MEDS: INSULIN ASPART PER UNIT CHARGE SC SCH (09:14)
[2022-12-06] MEDS ORDERED: ERGOCALCIFEROL 50,000 UNITS 1250 MCG CAP PO SCH (08:00)
== END 2022-12-04 10:12 | disposition home or self-care (01) | DRG 885 ==
LOC: ED 04:42 → 3S 10:21

== ENCOUNTER 2023-02-24 10:01 | Inpatient (IN) ==
--- NOTE | 2023-02-24 10:24 | Emergency Department Note ---
Impression & Plan Depression with suicidal ideation ED Provider Note NAME: AMADO OLSON AGE: 58 SEX: F : 1965 ARRIVES VIA: Ambulance INFORMANT: Patient, ED PROVIDER(S): Fede Cuevas DO CHIEF COMPLAINT: Mental health evaluation HPI: The patient is a 58-year-old female who presented to the emergency department for an evaluation of mental health issues. The patient's been having depression with suicidal ideation for the last few months. She was seen in our facility early this morning. She was medically cleared and also cleared from a mental health standpoint. She went to bed and awoke this morning with worsening symptoms. She called crisis and was referred to the emergency department. She arrived via ambulance. The patient denies having any fever or chills. She denies having any chest pain or difficulty breathing. The patient states that she is suicidal but no plan at this time. ROS: See above HPI for pertinent positives & negatives. A total of 10 systems reviewed and were otherwise negative. PAST MEDICAL HISTORY: See Below PAST SURGICAL HISTORY: See Below FAMILY HISTORY: See Below SOCIAL HISTORY: See Below HOME MEDICATIONS: See Below ALLERGIES: See Below VITALS: See Below PHYSICAL EXAMINATION: GENERAL: Patient is awake alert in no acute distress patient is resting comfortably and showing no signs of anxiety EYES: The conjunctivae are clear. The pupils are round and reactive. EARS, NOSE, MOUTH AND THROAT: The nose is without any evidence of any deformity. NECK: The neck is nontender and supple. RESPIRATORY: Normal respiratory effort is noted there is no evidence of wheezing rhonchi or rales CARDIOVASCULAR: Regular rate and rhythm noted there no murmurs rubs or gallops normal S1 normal S2. GASTROINTESTINAL: The abdomen is soft. Abdomen is nontender. MUSCULOSKELETAL/EXTREMITIES: There is no evidence of gross deformity full range of motion is noted in the hips and shoulders. SKIN: There is no obvious evidence of any rash. There are no petechiae, pallor or cyanosis noted. NEUROLOGIC: Patient is awake alert and oriented x3. PSYCH: The patient makes poor eye contact mostly evaluation. The patient admits to suicidal ideation but no plan at this time. The patient's affect is flat. MEDICAL DECISION MAKING: The patient is a 58-year-old female who has a history of depression and suicidal ideation who presented to the emergency department for mental health evaluation. The patient was seen in our facility earlier this morning. She was medically cleared at that time. I did review the patient's previous chart. The patient returns today at the request of crisis as she was worsening with her symptoms. I discussed the patient's condition with her. She was evaluated by the mental supportive employment case manager. She was also evaluated by 3 S. I was felt to be a good candidate for inpatient management on our unit. I did sign the patient's 201. Triage Nursing notes reviewed. Prior medical records reviewed Vital Signs: reviewed and remarkable for elevated blood pressure. Differential diagnosis: Mood disorder, infection, hypoglycemia, electrolyte abnormalities, cardiac sources, intracerebral event, toxicologic, trauma, neurologic, as well as other pathologies. ER treatment provided: See below Diagnostics interpreted by me: ECG: none Laboratory studies: As stated above and show below. Imaging studies: See below. Consultation(s): I discussed this case with the emergency department health supportive employment case manager. Past Med/Surg History Medical History Depression Eczema Graves disease Health care maintenance Hypertension Intertrigo Knee pain, bilateral Leukocytosis PPD positive 19 mm in 2011- DEANNA->( T[place] 9 months ) no longer PPD need Sleep disturbance Suicidal ideation Suicidal ideations UTI (urinary tract infection) Vaginitis Vitamin D deficiency Surgical History Hx of bilateral breast reduction surgery Hx of tonsillectomy Family History Father FHx: ischemic heart disease before age 50 Cardiac disorder Unknown Ovarian cancer Uncle Prostate cancer Grandfather Myocardial infarction Grandmother Cancer Denies family history of Breast cancer Social History Smoking Status: Unknown if ever smoked Hx Alcohol Use: No Hx Substance Use: No Preferred Language: Portuguese Communication Ability: Effective Visual Impairment: No Limitations 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: Normal 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 Required: No Beliefs That Will Affect Care: Adventism marital status: Single Current Living Situation: Personal Care Facility Current Living Situation Comment: [facility] current occupational status: unemployed Feels Safe at Home: Yes Dental Care, Regularly: Yes Physical Activity Frequency: 1-2 Times per Week Seatbelt Use: always Gender Identity: Female Assistive Devices: Glasses Allergies Allergies Allergy/AdvReac Type Severity Reaction Status Date / Time sulfamethoxazole Allergy Mild Difficulty Verified 01/04/23 11:03 [From Bactrim] Breathing trimethoprim [From Bactrim] Allergy Mild Difficulty Verified 01/04/23 11:03 Breathing Ehmiwig-RCC-VdA Reductase Allergy Unknown Verified 02/24/23 04:09 Inhibitor Home Meds Home Medications Medication Instructions Recorded Confirmed zolpidem 10 mg tablet (Ambien) 10 mg PO HS PRN Insomnia 01/06/22 02/24/23 metformin 500 mg tablet,extended 500 mg PO BIDM 02/24/23 02/24/23 release 24 hr olanzapine 5 mg tablet See Rx Instructions .Route .COMPLEX 02/24/23 02/24/23 Previous Rx's Medication Instructions Recorded benztropine 1 mg tablet 1 mg PO HS 30 days #30 tabs 09/14/21 olanzapine 10 mg tablet 10 mg PO HS 30 days #30 tabs 09/14/21 olanzapine 20 mg tablet 20 mg PO HS 30 days #30 tabs 09/14/21 cyanocobalamin (vitamin B-12) 1,000 mcg PO QAM #90 tabs 10/08/21 1,000 mcg tablet (Vitamin B-12) acetaminophen 325 mg tablet 325 mg PO QID PRN pain #360 tabs 08/30/22 (Tylenol) aspirin 81 mg tablet,delayed 81 mg PO QAM #90 tabs 08/30/22 release fenofibrate micronized 130 mg 130 mg PO QAM #90 caps 08/30/22 capsule ferrous sulfate 325 mg (65 mg 325 mg PO QAM #90 tabs 08/30/22 iron) tablet blood sugar diagnostic (LoopPayTouch #200 ea 09/09/22 Ultra Test strips) liraglutide 0.6 mg/0.1 mL (18 mg/3 1.8 mg (0.3 mL) subcut DAILY 30 10/03/22 mL) subcutaneous pen injector days #9 mL (Victoza 3-Antione) losartan 100 mg tablet 100 mg PO DAILY #30 tabs 12/05/22 melatonin 5 mg capsule See Rx Instructions PO HS PRN 12/05/22 insomnia #90 caps empagliflozin 25 mg tablet 25 mg PO DAILY #90 tabs 12/15/22 (Jardiance) rosuvastatin 20 mg tablet 20 mg PO DAILY #90 tabs 01/06/23 BD AutoShield Duo Pen Needle 30 #300 ea 01/18/23 gauge x 3/16" (pen needle,diabetic dual safty) lancets 30 gauge (ReadyLance #200 ea 01/19/23 Safety Lancets) hydrochlorothiazide 25 mg tablet 25 mg PO DAILY #90 tabs 02/01/23 methimazole 10 mg tablet 10 mg PO QAM 30 days #30 tabs 02/01/23 cholecalciferol (vitamin D3) 50 50 mcg PO DAILY #90 caps 02/08/23 mcg (2,000 unit) capsule insulin detemir U-100 100 unit/mL See Rx Instructions subcut BID 90 02/08/23 (3 mL) subcutaneous pen days #15 Boxes Results & Data (ED) Vital Signs Vital Signs - 24 hr 02/24/23 11:57 Temperature 36.6 C Temperature Source Oral Pulse Rate 75 Respiratory Rate 18 Respiratory Depth Normal Respiratory Pattern Regular Blood Pressure 180/96 H Blood Pressure Mean 124 Pulse Oximetry 97 Oxygen Delivery Method Room Air Sepsis Recent Fever Within 48 Hours No Sepsis New/Unexplained Change in Mental Status No Sepsis Action Taken by Nursing No Action Required Home Medications Current Medication List: was personally reviewed by me Laboratory Data Attestation: I reviewed the patient's lab results. Lab Results 02/24/23 02/24/23 02/24/23 Range/Units 10:40 11:40 11:40 Urine Color Yellow Urine Appearance Clear (Clear) Urine pH 6.5 (4.5-7.5) Ur Specific [place] 1.042 H (1.000-1.030) Urine Protein Negative (Negative) Urine Glucose (UA) 3+ H (Negative) Urine Ketones Negative (Negative) Urine Blood Negative (Negative) Urine Nitrite Negative (Negative) Urine Bilirubin Negative (Negative) Urine Urobilinogen Negative (Negative) Ur Leukocyte Esterase Negative (Negative) Urine Opiates Screen Neg (Neg) Ur Methadone, Qual Neg (Neg) Urine Barbiturates Neg (Neg) Ur Phencyclidine (PCP) Neg (Neg) U Amphetamin/Meth Scrn Neg (Neg) MDMA (Ecstasy) Screen Neg (Neg) U Benzodiazepines Scrn Neg (Neg) Ur Cocaine Metabolite Neg (Neg) U Marijuana (THC) Screen Neg (Neg) SARS-CoV-2, RNA, NAAT NEGATIVE (NEGATIVE) Discharge Plan Visit Data Chief Complaint: Mental Health Evaluation ED Provider: Fede Cuevas Discharge Problem: Depression with suicidal ideation Patient Disposition: Admitted As Inpatient Discharge Instructions Interventions: ED Discharge Assessment Last Done: 02/24/23 14:47
[2023-02-24 12:29] LABS: Appearance Urine Clear (Clear); Bilirubin Urine Negative (Negative); Blood Urine Negative (Negative); Color Urine Yellow; Glucose Urine UA 3+ (Negative); Ketones Urine Negative (Negative); Leukocyte Esterase Urine Negative (Negative); Nitrite Urine Negative (Negative); Protein Urine Negative (Negative); Specific Gravity Urine 1.042 (1.000-1.030); Urobilinogen Urine Negative (Negative); pH Urine 6.5 (4.5-7.5)
[2023-02-24 12:51] LABS: Amphetamines+Metham, Urine Neg (Neg); Barbiturates, Urine Neg (Neg); Benzodiazepine, Urine Neg (Neg); Cocaine, Urine Neg (Neg); MDMA (Ecstacy), Urine Neg (Neg); Methadone, Urine Neg (Neg); Opiate, Urine Neg (Neg); Phencyclidine, Urine Neg (Neg)
[2023-02-24] MEDS ORDERED: SODIUM CHLORIDE 0.65% NA SOLN 45 ML (OCEAN) PRN (14:34)
[2023-02-24] MEDS ORDERED: BISMUTH SUBSALICYLATE LIQD 236 ML PO PRN (14:34)
[2023-02-24] MEDS ORDERED: ALUMINUM/MAGNESIUM SUSP 30 ML UDC PO PRN (14:34)
[2023-02-24] MEDS ORDERED: hydrOXYzine HCl 25 MG TAB PO PRN ×2 (14:34)
[2023-02-24] MEDS ORDERED: MAGNESIUM HYDROXIDE SUSP 30 ML UDC PO PRN (14:34)
[2023-02-24] MEDS ORDERED: ZOLPIDEM TARTRATE 5 MG TAB PO PRN (16:19)
[2023-02-24] MEDS ORDERED: LOSARTAN POTASSIUM 50 MG TAB PO SCH (16:30)
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
[2023-02-24] MEDS: OLANZapine 5 MG TABLET PO SCH (17:16)
[2023-02-24] MEDS: lisinopril 20 MG TAB PO SCH (17:16)
[2023-02-24] MEDS: metFORMIN HCL ER 500 MG TABCR PO SCH (17:17)
[2023-02-24] MEDS ORDERED: PHARMACY GLYCEMIC MGMT CONSULT PRN (18:01)
[2023-02-24] MEDS ORDERED: GLUCOSE 10 TAB/TUBE PO PRN (18:45)
[2023-02-24] MEDS ORDERED: GLUCOSE 40% GEL 15 GM TUBE PO PRN (18:45)
[2023-02-24] MEDS ORDERED: CARBOHYDRATES FOR HYPOGLYCEMIA PO PRN (18:45)
[2023-02-24] MEDS ORDERED: GLUCAGON FOR INJ 1 MG VIAL IM PRN (18:45)
[2023-02-24] MEDS ORDERED: DEXTROSE 50% 50 ML SYRINGE IV PRN (18:45)
[2023-02-24] MEDS: INSULIN ASPART PER UNIT CHARGE SC SCH ×2 (18:50→20:37)
[2023-02-24] MEDS ORDERED: LANTUS PER UNIT CHARGE SQ SCH (21:00)
[2023-02-24] MEDS: BENZTROPINE MESYLATE 1 MG TAB PO SCH (21:10)
[2023-02-24] MEDS: OLANZapine 20 MG TABLET PO SCH (21:11)
[2023-02-24] MEDS: OLANZapine 10 MG TAB PO SCH (21:11)
[2023-02-24] MEDS ORDERED: LANTUS PER UNIT CHARGE SC ONE (21:15)
[2023-02-24] MEDS: ACETAMINOPHEN 325 MG TAB PO PRN (22:54)
[2023-02-25] MEDS: MELATONIN 3 MG TAB PO PRN (01:29)
[2023-02-25 07:53] LABS: Cholesterol 193 mg/dl (0-200); Glucose 217 mg/dl (70-99(Fasting)); HDL Cholesterol 33 mg/dl; Triglycerides 623 mg/dl (0-150)
[2023-02-25 07:59] LABS: Chol HDL Ratio 5.8 (0-5)
[2023-02-25 08:29] LABS: Estimated Average Glucose 249 mg/dl; Hemoglobin A1C 10.3 % (4.5-5.6)
[2023-02-25] MEDS: ASPIRIN 81 MG ECTAB PO SCH (08:36)
[2023-02-25] MEDS: metFORMIN HCL ER 500 MG TABCR PO SCH ×2 (08:36→17:39)
[2023-02-25] MEDS: hydroCHLOROthiazide 25 MG TAB PO SCH (08:37)
[2023-02-25] MEDS: ROSUVASTATIN CALCIUM 20 MG TAB PO SCH (08:37)
[2023-02-25] MEDS: FERROUS SULFATE 325 MG TAB PO SCH (08:37)
[2023-02-25] MEDS: CYANOCOBALAMIN (B-12) 500 MCG TABLET PO SCH (08:37)
[2023-02-25] MEDS: CHOLECALCIFEROL 1,000 UNITS 25 MCG TAB PO SCH (08:37)
[2023-02-25] MEDS: methIMAzole 5 MG TABLET PO SCH ×2 (08:38→08:56)
[2023-02-25] MEDS: lisinopril 20 MG TAB PO SCH (08:38)
[2023-02-25] MEDS: FENOFIBRATE NANOCRYSTALLIZED 145 MG TABLET PO SCH ×2 (08:38→08:54)
[2023-02-25] MEDS: INSULIN ASPART PER UNIT CHARGE SC SCH ×4 (08:44→20:37)
[2023-02-25] MEDS ORDERED: EMPAGLIFLOZIN 25 MG TAB PO SCH (09:00)
[2023-02-25] MEDS ORDERED: NovoLIN-N (NPH) PER UNIT CHARGE SQ SCH (09:00)
[2023-02-25] MEDS ORDERED: LANTUS PER UNIT CHARGE SC SCH (09:00)
[2023-02-25] MEDS ORDERED: INSULIN DETEMIR SC ONE (13:00)
--- NOTE | 2023-02-25 13:44 | Pharmacy Report ---
Pharmacy Glycemic Short Note 2 - Date of Service February 25, 2023 - Glycemic Short BSG Results (Last 24 hours): 02/24/23 02/24/23 02/25/23 17:05 20:31 07:15 Glucose 217 H POC Glucose 165 H 214 H 02/25/23 02/25/23 08:19 12:24 Glucose POC Glucose 194 H 160 H OUTPATIENT ANTIDIABETIC REGIMEN: * Levemir 140 units in AM and 100 units in PM * metformin 500 mg PO BIDM * Jardiance 25 mg PO daily * Victoza 1.6 mg SQ daily * HbA1C = 10.3% (02/25/23) ASSESSMENT: * Ms Marrero is a 58 y/o F with a PMH of T2DM who presents for admission. * Patient familiar to glycemic service. She typically requires 170-190 units of Levemir per day with Novolog CF 10 CR 3.5-4 * Patient admitted yesterday evening. She refused all insulin due to current situation. * This morning, attempted to see if patient would be agreeable to NPH. Patient refused this insulin and would only take Levemir. * Obtained Levemir around lunchtime and ordered 100 units. Patient refused this at this time as she only wanted to take one insulin at a time (Novolog vs Levemir). Rescheduled for later tonight. Instructed nurse that if this should happen again tonight, would prefer patient to take Levemir instead of Novolog. * Novolog with previous parameters will be used. PLAN FOR INPATIENT GLYCEMIC CONTROL: * Hold outpatient oral diabetes medications * Basal insulin * Levemir 100 units SQ x 1 and re-evaluate 02/26/23 * Bolus insulin * NovoLog per scale ACHS or Q6hrs while NPO * Goal Range: Low 110 mg/dL - High 140 mg/dL * Correction Factor: 10 mg/dL/unit * Nutritional / Prandial insulin per carb ratio of 1 unit per 3.5 grams CHO consumed
[2023-02-25] MEDS: OLANZapine 5 MG TABLET PO SCH (15:44)
--- NOTE | 2023-02-25 16:50 | Psychiatric Progress Note ---
Date of Service February 25, 2023 Impression / Recommendations Impression Sanjuanita is a 58 year old woman with a history of schizophrenia, depression and multiple chronic medical conditions who was admitted for worsening depression, guilt, ideas of reference, and SI in the context of attributing recent world events to being her fault and medication non-adherence. Diagnostically consistent with acute exacerbation of schizophrenia and depression likely adjustment disorder in context of watching stressful news events. She is deemed in need of psychiatric hospitalization for diagnostic clarification, safety and stabilization, medication management and development of further coping skills. Her blood pressure is elevated likely due to her recent non-adherence with some of her medications. She is refusing to continue with losartan, even though review of recent PCP visit notes improved blood pressure control after switch from lisinopril. She is only willing to take lisinopril and given very high blood pressure will switch to this temporarily. Discussed medication treatment options in detail. Discussed risks, benefits and alternatives. She consented to continuing olanzapine for schizophrenia and depression/mood stabilization. Reviewed side effects including but not limited to: above FDA-max dose but evidence that higher doses of olanzapine can offer more benefit and be well tolerated as well as movement (TD, NMS), cardiac (QTc prolongation), and metabolic (stroke, insulin resistance) and necessity for fasting lipid and glucose labwork and AIMS done with score of 0. MNPR due to acute psychosis 02/25/2023: Greets me saying that she doesn't understand why she so rapidly feels so much better after being admitted, given how overwhelmed she'd felt prior to presentation. Notes she's "not having those suicidal thoughts" and is "not as bothered by the voices". Labs from this AM show * Hgb A1C 10.3% (well within her usual range over the past 5 years) * cholesterol 193 mg/dL * TG 623 mg/dL (within her usual range over the past 5 years, during which the recorded maximum was 1,647 mg/dL in January 2021) It's not at all evident to what degree, if any, antipsychotic medication might be responsible for her very poor blood glucose control and hypertriglyceridemia, but it's clear that she is poorly-adherent to her medication regimen. (1) Schizophrenia: (2) Depression with suicidal ideation: (3) Diabetes mellitus type 2, uncontrolled: (4) Dyslipidemia: (5) Hypertension: Plan 02/25/2023: * continue olanzapine 35 mg QHS (despite dosing recommendations, there are published reports of benefits in treatment-resistant psychosis of doses up to 60 mg/day) 02/24/2023: The patient was admitted to the [facility] ([facility]) on q15 min checks (behavioral with suicide precautions) for safety. The patient will participate in group, recreational, and milieu therapies and will be offered additional individual and family sessions as clinically appropriate. -Continue with prior to admission olanzapine prior to admission medications including olanzapine 35mg HS -EKG to assess QTc given above FDA max dose of olanzapine -Fasting glucose, HbA1c, lipid panel tomorrow AM -Restart prior to admission medications for BP, diabetes, HLD, elevated TGs, HTN with exception of substitution of lisinopril for losartan (due to her refusal) Inventory Assets Strengths: extensive outpatient support, willing to get treatment Needs: safety and stabilization, medication adjustment, additional coping skills Suicide Risk Level Suicide Risk Level: High-Moderate (q15 min suicide checks) (depression with SI and psychosis prior to admission but feels safe in the hospital, able to safety contract and agrees to let nursing/staff know should they develop plan, intent or feel unable to remain safe) Suicide Risk Level Comments: High-Moderate due to severe depression with SI with plan prior to admission but feels safe in the hospital, able to safety contract and agrees to let nursing/staff know should they develop plan, intent or feel unable to remain safe. Risk Factors Assessment Male: No : Yes Do You Have Access To A Gun?: No Health Problems: Yes Mental Health Diagnoses: Yes Substance Use Disorders: No Previous Attempt: Yes Family History of Suicide: No Previous Psychiatric Hospitalization: Yes Protective Factors Assessment Employed: No Good Rapport with Provider: Yes Interval History Identifying Information SANJUANITA OLSON is a 58-year-old woman who currently lives in [facility], has a history of schizophrenia, depression, HTN, T2DM, HLD, elevated triglycerides, and was admitted on 02/24/23 14:32 on a 201 voluntary commitment for worsening depression and SI with thoughts of cutting herself. Chief Complaint "I'm not too bad". Review of Systems Sleep Information Total Hours of Sleep: 5.5 Sleep Comments: Up frequently pacing hallway; received Melatonin for sleep. Meal Information Percent Meal Consumed - Breakfast: 75 Percent Meal Consumed - Dinner: 100 Nutrition Comment: Carb. count Subjective Subjective Patient was seen & assessed and interval progress reviewed in a multidisciplinary team meeting with the treatment team. For details, see the "Impression" section below. Physical Exam Psychiatric Orientation: alert and oriented x 3 Apperance: appropriately dressed and + disheveled Eye Contact: + fair eye contact Motor Behavior: no abnormal motor movements Speech: normal rate/rhythm/volume of speech Affect: euthymic affect Mood: + dysphoric mood Thought Process: + concrete thought process Thought Content: + delusions and + ideas of reference Suicidal Thoughts: denies suicidal thoughts, denies suicidal plan (feels safe in the hospital) and denies suicidal intent Homicidal Thoughts: denies homicidal thoughts Hallucinations: + auditory hallucinations (seems to be possibly responding to internal stimuli ); no visual hallucinations Cognition: recent memory grossly intact, remote memory grossly intact, attention grossly intact and language grossly intact Estimated Intelligence: consistent with education level Insight: + limited insight Judgment: + limited judgement Vital Signs (Past 24 Hours) Last Vital Signs Temp 36.8 C 02/25/23 06:39 Pulse 74 02/25/23 06:39 Resp 18 02/25/23 06:39 BP 171/96 H 02/25/23 06:39 Pulse Ox 95 02/24/23 19:50 O2 Del Method Room Air 02/24/23 19:50 Results & Data (U) Laboratory Results Laboratory Results - last 24 hr 02/24/23 02/24/23 02/25/23 17:05 20:31 07:15 Glucose 217 H POC Glucose 165 H 214 H Estimat Average Glucose Hemoglobin A1c Triglycerides 623 H Cholesterol 193 LDL Cholesterol, Calc TNP VLDL Cholesterol, Calc TNP HDL Cholesterol 33 Cholesterol/HDL Ratio 5.8 H 02/25/23 02/25/23 02/25/23 07:15 08:19 12:24 Glucose POC Glucose 194 H 160 H Estimat Average Glucose 249 Hemoglobin A1c 10.3 H Triglycerides Cholesterol LDL Cholesterol, Calc VLDL Cholesterol, Calc HDL Cholesterol Cholesterol/HDL Ratio Current Inpatient Medications Current Inpatient Medications: Current Inpatient Medications Acetaminophen (Acetaminophen 325 Mg Tab) 650 mg PO Q4H PRN PRN Reason: Headache or Minor Fever Stop: 03/26/23 14:33 Last Admin: 02/24/23 22:54 Dose: 650 mg Al Hydrox/Mg Hydrox/Simethicone (Aluminum/Magnesium Susp 30 Ml Udc) 30 ml PO Q4H PRN PRN Reason: GI Upset Stop: 03/26/23 14:33 Aspirin (Aspirin 81 Mg Ectab) 81 mg PO QAM [facility] Stop: 03/27/23 08:59 Last Admin: 02/25/23 08:36 Dose: 81 mg Benztropine Mesylate (Benztropine Mesylate 1 Mg Tab) 1 mg PO HS ANNAMARIA Stop: 03/26/23 21:59 Last Admin: 02/24/23 21:10 Dose: 1 mg Bismuth Subsalicylate (Bismuth Subsalicylate Liqd 236 Ml) 15 ml PO PRN PRN PRN Reason: Loose Stool Stop: 03/26/23 14:33 Cyanocobalamin (Cyanocobalamin (B-12) 500 Mcg Tablet) 1,000 mcg PO QAM [facility] Stop: 03/27/23 08:59 Last Admin: 02/25/23 08:37 Dose: 1,000 mcg Dextrose (Dextrose 50% 50 Ml Syringe) 25 - 50 ml IV UD PRN; Protocol PRN Reason: Hypoglycemia Protocol Stop: 03/26/23 18:44 Fenofibrate (Fenofibrate Nanocrystallized 145 Mg Tablet) [facility] [place] Stop: 03/27/23 08:59 Last Admin: 02/25/23 08:54 Dose: Not Given Ferrous Sulfate (Ferrous Sulfate 325 Mg Tab) 325 mg PO QAM [facility] Stop: 03/27/23 08:59 Last Admin: 02/25/23 08:37 Dose: 325 mg Glucagon (Glucagon For Inj 1 Mg Vial) 1 mg IM UD PRN; Protocol PRN Reason: Hypoglycemia Protocol Stop: 03/26/23 18:44 Glucose (Glucose 40% Gel 15 Gm Tube) 15 - 30 gm PO UD PRN; Protocol PRN Reason: Hypoglycemia Protocol Stop: 03/26/23 18:44 Glucose (Glucose 10 Tab/Tube) 4 - 8 tab PO UD PRN; Protocol PRN Reason: Hypoglycemia Protocol Stop: 03/26/23 18:44 Hydrochlorothiazide (Hydrochlorothiazide 25 Mg Tab) 25 mg PO DAILY [facility] Stop: 03/27/23 08:59 Last Admin: 02/25/23 08:37 Dose: 25 mg Hydroxyzine HCl (Hydroxyzine Hcl 25 Mg Tab) 50 mg PO HSZ PRN PRN Reason: Insomnia Stop: 03/26/23 14:33 Hydroxyzine HCl (Hydroxyzine Hcl 25 Mg Tab) 25 mg PO Q4H PRN PRN Reason: Anxiety Stop: 03/26/23 14:33 Insulin Aspart (Insulin Aspart Per Unit Charge) 0 units SC ACHS [facility] Stop: 03/26/23 18:44 Last Admin: 02/25/23 13:13 Dose: 29 units Insulin Detemir (Insulin Detemir) 100 units SC TODAY@1800 [facility] Stop: 02/25/23 23:59 Lisinopril (Lisinopril 20 Mg Tab) 20 mg PO QAM [facility] Stop: 03/26/23 16:44 Last Admin: 02/25/23 08:38 Dose: 20 mg Magnesium Hydroxide (Magnesium Hydroxide Susp 30 Ml Udc) 30 ml PO DAILY PRN PRN Reason: Constipation Stop: 03/26/23 14:33 Melatonin (Melatonin 3 Mg Tab) 6 mg PO HS PRN PRN Reason: Sleep Stop: 03/26/23 16:21 Last Admin: 02/25/23 01:29 Dose: 6 mg Metformin HCl (Metformin Hcl Er 500 Mg Tabcr) 500 mg PO BIDM@0800,1700 [facility] Stop: 03/26/23 16:59 Last Admin: 02/25/23 08:36 Dose: 500 mg Methimazole (Methimazole 5 Mg Tablet) 10 mg PO QAM [facility] Stop: 03/27/23 08:59 Last Admin: 02/25/23 08:56 Dose: Not Given Miscellaneous (Carbohydrates For Hypoglycemia ) 15 - 30 gm PO UD PRN PRN Reason: Hypoglycemia Treatment Stop: 03/26/23 18:44 Miscellaneous Information (Pharmacy Glycemic Mgmt Consult) 1 each N/A UD PRN; Protocol PRN Reason: Consult Stop: 03/26/23 18:00 Olanzapine (Olanzapine 5 Mg Tablet) 5 mg PO DAILY@1500 [facility] Stop: 03/26/23 16:29 Last Admin: 02/25/23 15:44 Dose: 5 mg Olanzapine (Olanzapine 10 Mg Tab) 10 mg PO HS [facility] Stop: 03/26/23 21:59 Last Admin: 02/24/23 21:11 Dose: 10 mg Olanzapine (Olanzapine 20 Mg Tablet) 20 mg PO HS [facility] Stop: 03/26/23 21:59 Last Admin: 02/24/23 21:11 Dose: 20 mg Rosuvastatin Calcium (Rosuvastatin Calcium 20 Mg Tab) 20 mg PO DAILY ANNAMARIA Stop: 03/27/23 08:59 Last Admin: 02/25/23 08:37 Dose: 20 mg Sodium Chloride (Sodium Chloride 0.65% Na Soln 45 Ml ([place])) 1 - 2 sprays NA PRN PRN PRN Reason: Nasal Dryness/Congestion Stop: 03/26/23 14:33 Vitamin D (Cholecalciferol 1,000 Units 25 Mcg Tab) 2,000 units PO DAILY ANNAMARIA Stop: 03/27/23 08:59 Last Admin: 02/25/23 08:37 Dose: 2,000 units Zolpidem Tartrate (Zolpidem Tartrate 5 Mg Tab) 10 mg PO HS PRN PRN Reason: Insomnia Stop: 03/26/23 16:18 Mental Health & Subst Abuse Tx Therapist Name of Therapist: Bette Millan Eye Surgeon Name of Eye Surgeon: None Post Discharge Appointments Primary Care Physician Name Of Family Doctor/PCP: Dr. Rhodes (1) Schizophrenia Schizophrenia type: paranoid schizophrenia Qualified Code(s): F20.0 - Paranoid schizophrenia (3) Diabetes mellitus type 2, uncontrolled Glycemic state: with hyperglycemia Qualified Code(s): E11.65 - Type 2 diabetes mellitus with hyperglycemia
[2023-02-25] MEDS ORDERED: INSULIN DETEMIR SC SCH (18:00)
[2023-02-25] MEDS: OLANZapine 10 MG TAB PO SCH (20:53)
[2023-02-25] MEDS: BENZTROPINE MESYLATE 1 MG TAB PO SCH (20:53)
[2023-02-25] MEDS: OLANZapine 20 MG TABLET PO SCH (20:53)
[2023-02-26] MEDS: ACETAMINOPHEN 325 MG TAB PO PRN (01:44)
[2023-02-26] MEDS ORDERED: INSULIN ASPART PER UNIT CHARGE SC ONE (04:00)
[2023-02-26] MEDS: methIMAzole 5 MG TABLET PO SCH ×2 (08:45→09:07)
[2023-02-26] MEDS: lisinopril 20 MG TAB PO SCH (08:46)
[2023-02-26] MEDS: CHOLECALCIFEROL 1,000 UNITS 25 MCG TAB PO SCH (08:46)
[2023-02-26] MEDS: ASPIRIN 81 MG ECTAB PO SCH (08:46)
[2023-02-26] MEDS: metFORMIN HCL ER 500 MG TABCR PO SCH ×2 (08:46→17:20)
[2023-02-26] MEDS: CYANOCOBALAMIN (B-12) 500 MCG TABLET PO SCH (08:46)
[2023-02-26] MEDS: ROSUVASTATIN CALCIUM 20 MG TAB PO SCH (08:47)
[2023-02-26] MEDS: FERROUS SULFATE 325 MG TAB PO SCH (08:47)
[2023-02-26] MEDS: FENOFIBRATE NANOCRYSTALLIZED 145 MG TABLET PO SCH ×2 (08:47→09:07)
[2023-02-26] MEDS: hydroCHLOROthiazide 25 MG TAB PO SCH (08:47)
[2023-02-26] MEDS: INSULIN ASPART PER UNIT CHARGE SC SCH ×3 (08:54→17:28)
--- NOTE | 2023-02-26 10:59 | Psychiatric Progress Note ---
Date of Service February 26, 2023 Impression / Recommendations Impression Sanjuanita is a 58 year old woman with a history of schizophrenia, depression and multiple chronic medical conditions who was admitted for worsening depression, guilt, ideas of reference, and SI in the context of attributing recent world events to being her fault and medication non-adherence. Diagnostically consistent with acute exacerbation of schizophrenia and depression likely adjustment disorder in context of watching stressful news events. She is deemed in need of psychiatric hospitalization for diagnostic clarification, safety and stabilization, medication management and development of further coping skills. Her blood pressure is elevated likely due to her recent non-adherence with some of her medications. She is refusing to continue with losartan, even though review of recent PCP visit notes improved blood pressure control after switch from lisinopril. She is only willing to take lisinopril and given very high blood pressure will switch to this temporarily. 02/26/2023: Pt tells me she's "starting to feel closed in" and says "I'm not sure I should be here". This may be related to the recent admission of a manic man who has spoken loudly about his shelter experiences. Continues to report no symptoms beyond her chronic auditory hallucinosis, even saying she's not having her fairly chronic suicidal thoughts. Reviewed pt's lab results, about which she's utterly unconcerned. She emphasizes that she does not want to make any change in the olanzapine "because it's working so well". In terms of her poorly-controlled medical problems including diabetes, dyslipidemia, and hypertension, she says " doctors keep telling" her that these problems are not well-controlled and that she needs to adhere to the prescribed treatment regimens as well as make some lifestyle changes, but she's "not too worried". This may be in large part because she's subjectively asymptomatic, though she may well be having symptoms such as fatigue but attributing them to her mood disorder. 02/25/2023: Greets me saying that she doesn't understand why she so rapidly feels so much better after being admitted, given how overwhelmed she'd felt prior to presentation. Notes she's "not having those suicidal thoughts" and is "not as bothered by the voices". Labs from this AM show * Hgb A1C 10.3% (well within her usual range over the past 5 years) * cholesterol 193 mg/dL * TG 623 mg/dL (within her usual range over the past 5 years, during which the recorded maximum was 1,647 mg/dL in January 2021) It's not at all evident to what degree, if any, antipsychotic medication might be responsible for her very poor blood glucose control and hypertriglyceridemia, but it's clear that she is poorly-adherent to her medication regimen. 02/24/2023: Discussed medication treatment options in detail. Discussed risks, benefits and alternatives. She consented to continuing olanzapine for schizophrenia and depression/mood stabilization. Reviewed side effects including but not limited to: above FDA-max dose but evidence that higher doses of olanzapine can offer more benefit and be well tolerated as well as movement (TD, NMS), cardiac (QTc prolongation), and metabolic (stroke, insulin resistance) and necessity for fasting lipid and glucose labwork and AIMS done with score of 0. MNPR due to acute psychosis (1) Schizophrenia: Present on Admission?: Yes (2) Depression with suicidal ideation: Present on Admission?: Yes (3) Diabetes mellitus type 2, uncontrolled: Present on Admission?: Yes (4) Dyslipidemia: Present on Admission?: Yes (5) Hypertension: Present on Admission?: Yes Plan 02/26/2023: * continue olanzapine 35 mg QHS * anticipate discharge tomorrow 02/25/2023: * continue olanzapine 35 mg QHS (despite dosing recommendations, there are published reports of benefits in treatment-resistant psychosis of doses up to 60 mg/day) 02/24/2023: The patient was admitted to the [facility] ([facility]) on q15 min checks (behavioral with suicide precautions) for safety. The patient will participate in group, recreational, and milieu therapies and will be offered additional individual and family sessions as clinically appropriate. -Continue with prior to admission olanzapine prior to admission medications including olanzapine 35mg HS -EKG to assess QTc given above FDA max dose of olanzapine -Fasting glucose, HbA1c, lipid panel tomorrow AM -Restart prior to admission medications for BP, diabetes, HLD, elevated TGs, HTN with exception of substitution of lisinopril for losartan (due to her refusal) Inventory Assets Strengths: extensive outpatient support, willing to get treatment Needs: safety and stabilization, medication adjustment, additional coping skills Suicide Risk Level Suicide Risk Level: Moderate (q15 min suicide checks) (depression with SI and psychosis prior to admission but feels safe in the hospital, able to safety contract and agrees to let nursing/staff know should they develop plan, intent or feel unable to remain safe) Suicide Risk Level Comments: Denies any suicidal thoughts at this time. Had a suicide plan prior to admission but feels safe in the hospital, able to contract for safety, and readily and agrees to let nursing/staff know should she develop plan, intent or feel unable to remain safe. Risk Factors Assessment Male: No : Yes Do You Have Access To A Gun?: No Health Problems: Yes Mental Health Diagnoses: Yes Substance Use Disorders: No Previous Attempt: Yes Family History of Suicide: No Previous Psychiatric Hospitalization: Yes Protective Factors Assessment Employed: No Good Rapport with Provider: Yes Interval History Identifying Information SANJUANITA OLSON is a 58-year-old woman who currently lives in [facility], has a history of schizophrenia, depression, HTN, T2DM, HLD, elevated triglycerides, and was admitted on 02/24/23 14:32 on a 201 voluntary commitment for worsening depression and SI with thoughts of cutting herself. Chief Complaint "I'm starting to feel closed in". Review of Systems Sleep Information Total Hours of Sleep: 6.5 Sleep Comments: Up frequently pacing hallway; received Melatonin for sleep. Meal Information Percent Meal Consumed - Breakfast: 100 Percent Meal Consumed - Lunch: 90 Percent Meal Consumed - Dinner: 100 Nutrition Comment: Carb. count Subjective Subjective Patient was seen & assessed and interval progress reviewed in a multidisciplinary team meeting with the treatment team. For details, see the "Impression" section below. Physical Exam Psychiatric Orientation: alert and oriented x 3 Apperance: appropriately dressed and appropriately groomed Eye Contact: + fair eye contact Motor Behavior: no abnormal motor movements Speech: normal rate/rhythm/volume of speech Affect: euthymic affect Mood: + anxious mood and + dysphoric mood Thought Process: + concrete thought process Thought Content: + delusions and + ideas of reference Suicidal Thoughts: denies suicidal thoughts, denies suicidal plan (feels safe in the hospital) and denies suicidal intent Homicidal Thoughts: denies homicidal thoughts Hallucinations: + auditory hallucinations (seems to be possibly responding to internal stimuli ); no visual hallucinations Cognition: recent memory grossly intact, remote memory grossly intact, attention grossly intact and language grossly intact Estimated Intelligence: consistent with education level Insight: + limited insight Judgment: + limited judgement Vital Signs (Past 24 Hours) Last Vital Signs Temp 37 C 02/26/23 06:49 Pulse 83 02/26/23 06:49 Resp 16 02/26/23 06:49 BP 156/83 H 02/26/23 06:49 Pulse Ox 95 02/24/23 19:50 O2 Del Method Room Air 02/24/23 19:50 Results & Data ([facility]) Laboratory Results Laboratory Results - last 24 hr 02/25/23 02/25/23 02/25/23 12:24 17:15 20:20 POC Glucose 160 H 207 H 316 H* 02/26/23 08:22 POC Glucose 202 H Current Inpatient Medications Current Inpatient Medications: Current Inpatient Medications Acetaminophen (Acetaminophen 325 Mg Tab) 650 mg PO Q4H PRN PRN Reason: Headache or Minor Fever Stop: 03/26/23 14:33 Last Admin: 02/26/23 01:44 Dose: 650 mg Al Hydrox/Mg Hydrox/Simethicone (Aluminum/Magnesium Susp 30 Ml Udc) 30 ml PO Q4H PRN PRN Reason: GI Upset Stop: 03/26/23 14:33 Aspirin (Aspirin 81 Mg Ectab) 81 mg PO QAM [facility] Stop: 03/27/23 08:59 Last Admin: 02/26/23 08:46 Dose: 81 mg Benztropine Mesylate (Benztropine Mesylate 1 Mg Tab) 1 mg PO HS [facility] Stop: 03/26/23 21:59 Last Admin: 02/25/23 20:53 Dose: 1 mg Bismuth Subsalicylate (Bismuth Subsalicylate Liqd 236 Ml) 15 ml PO PRN PRN PRN Reason: Loose Stool Stop: 03/26/23 14:33 Cyanocobalamin (Cyanocobalamin (B-12) 500 Mcg Tablet) 1,000 mcg PO QAM [facility] Stop: 03/27/23 08:59 Last Admin: 02/26/23 08:46 Dose: 1,000 mcg Dextrose (Dextrose 50% 50 Ml Syringe) 25 - 50 ml IV UD PRN; Protocol PRN Reason: Hypoglycemia Protocol Stop: 03/26/23 18:44 Fenofibrate (Fenofibrate Nanocrystallized 145 Mg Tablet) 145 mg PO QAM [facility] Stop: 03/27/23 08:59 Last Admin: 02/26/23 09:07 Dose: 72.5 mg Ferrous Sulfate (Ferrous Sulfate 325 Mg Tab) 325 mg PO QAM [facility] Stop: 03/27/23 08:59 Last Admin: 02/26/23 08:47 Dose: 325 mg Glucagon (Glucagon For Inj 1 Mg Vial) 1 mg IM UD PRN; Protocol PRN Reason: Hypoglycemia Protocol Stop: 03/26/23 18:44 Glucose (Glucose 40% Gel 15 Gm Tube) 15 - 30 gm PO UD PRN; Protocol PRN Reason: Hypoglycemia Protocol Stop: 03/26/23 18:44 Glucose (Glucose 10 Tab/Tube) 4 - 8 tab PO UD PRN; Protocol PRN Reason: Hypoglycemia Protocol Stop: 03/26/23 18:44 Hydrochlorothiazide (Hydrochlorothiazide 25 Mg Tab) 25 mg PO DAILY [facility] Stop: 03/27/23 08:59 Last Admin: 02/26/23 08:47 Dose: 25 mg Hydroxyzine HCl (Hydroxyzine Hcl 25 Mg Tab) 50 mg PO HSZ PRN PRN Reason: Insomnia Stop: 03/26/23 14:33 Hydroxyzine HCl (Hydroxyzine Hcl 25 Mg Tab) 25 mg PO Q4H PRN PRN Reason: Anxiety Stop: 03/26/23 14:33 Insulin Aspart (Insulin Aspart Per Unit Charge) 0 units SC ACHS [facility] Stop: 03/26/23 18:44 Last Admin: 02/26/23 08:54 Dose: 16 units Lisinopril (Lisinopril 20 Mg Tab) 20 mg PO QAM [facility] Stop: 03/26/23 16:44 Last Admin: 02/26/23 08:46 Dose: 20 mg Magnesium Hydroxide (Magnesium Hydroxide Susp 30 Ml Udc) 30 ml PO DAILY PRN PRN Reason: Constipation Stop: 03/26/23 14:33 Melatonin (Melatonin 3 Mg Tab) 6 mg PO HS PRN PRN Reason: Sleep Stop: 03/26/23 16:21 Last Admin: 02/25/23 01:29 Dose: 6 mg Metformin HCl (Metformin Hcl Er 500 Mg Tabcr) 500 mg PO BIDM@0800,1700 [facility] Stop: 03/26/23 16:59 Last Admin: 02/26/23 08:46 Dose: 500 mg Methimazole (Methimazole 5 Mg Tablet) 10 mg PO QAM [facility] Stop: 03/27/23 08:59 Last Admin: 02/26/23 09:07 Dose: Not Given Miscellaneous (Carbohydrates For Hypoglycemia ) 15 - 30 gm PO UD PRN PRN Reason: Hypoglycemia Treatment Stop: 03/26/23 18:44 Miscellaneous Information (Pharmacy Glycemic Mgmt Consult) 1 each N/A UD PRN; Protocol PRN Reason: Consult Stop: 03/26/23 18:00 Olanzapine (Olanzapine 5 Mg Tablet) 5 mg PO DAILY@1500 [facility] Stop: 03/26/23 16:29 Last Admin: 02/25/23 15:44 Dose: 5 mg Olanzapine (Olanzapine 10 Mg Tab) 10 mg PO HS [facility] Stop: 03/26/23 21:59 Last Admin: 02/25/23 20:53 Dose: 10 mg Olanzapine (Olanzapine 20 Mg Tablet) 20 mg PO HS [facility] Stop: 03/26/23 21:59 Last Admin: 02/25/23 20:53 Dose: 20 mg Rosuvastatin Calcium (Rosuvastatin Calcium 20 Mg Tab) 20 mg PO DAILY [facility] Stop: 03/27/23 08:59 Last Admin: 02/26/23 08:47 Dose: 20 mg Sodium Chloride (Sodium Chloride 0.65% Na Soln 45 Ml ([place])) 1 - 2 sprays NA PRN PRN PRN Reason: Nasal Dryness/Congestion Stop: 03/26/23 14:33 Vitamin D (Cholecalciferol 1,000 Units 25 Mcg Tab) 2,000 units PO DAILY [facility] Stop: 03/27/23 08:59 Last Admin: 02/26/23 08:46 Dose: 2,000 units Zolpidem Tartrate (Zolpidem Tartrate 5 Mg Tab) 10 mg PO HS PRN PRN Reason: Insomnia Stop: 03/26/23 16:18 Mental Health & Subst Abuse Tx Therapist Name of Therapist: Bette Millan Beer Runner Name of Beer Runner: None Post Discharge Appointments Primary Care Physician Name Of Family Doctor/PCP: Dr. Rhodes (1) Schizophrenia Schizophrenia type: paranoid schizophrenia Qualified Code(s): F20.0 - Paranoid schizophrenia (3) Diabetes mellitus type 2, uncontrolled Glycemic state: with hyperglycemia Qualified Code(s): E11.65 - Type 2 diabetes mellitus with hyperglycemia
--- NOTE | 2023-02-26 13:56 | Pharmacy Report ---
Pharmacy Glycemic Short Note 2 - Date of Service February 26, 2023 - Glycemic Short BSG Results (Last 24 hours): 02/25/23 02/25/23 02/26/23 17:15 20:20 08:22 POC Glucose 207 H 316 H* 202 H 02/26/23 11:39 POC Glucose 203 H OUTPATIENT ANTIDIABETIC REGIMEN: * Levemir 140 units in AM and 100 units in PM * metformin 500 mg PO BIDM * Jardiance 25 mg PO daily * Victoza 1.6 mg SQ daily * HbA1C = 10.3% (02/25/23) ASSESSMENT: * BSGs yesterday were [phone] mg/dL. Patient refused Novolog with dinner (resulting in HS BSG of 316 mg/dL). * She took 100 units of Levemir around 1800 and received 64 units of Novolog yesterday. * BSGs today have been 202-203 mg/dL. * Per discussion with nurse, patient will take Levemir once daily at HS but will not take Novolog at that time. Altered orders to reflect such. BACKGROUND * Ms Marrero is a 58 y/o F with a PMH of T2DM who presents for admission. * Patient familiar to glycemic service. She typically requires 170-190 units of Levemir per day with Novolog CF 10 CR 3.5-4 * Patient admitted yesterday evening. She refused all insulin due to current situation. * This morning, attempted to see if patient would be agreeable to NPH. Patient refused this insulin and would only take Levemir. * Obtained Levemir around lunchtime and ordered 100 units. Patient refused this at this time as she only wanted to take one insulin at a time (Novolog vs Levemir). Rescheduled for later tonight. Instructed nurse that if this should happen again tonight, would prefer patient to take Levemir instead of Novolog. * Novolog with previous parameters will be used. PLAN FOR INPATIENT GLYCEMIC CONTROL: * metformin ER 500 mg BIDM * Basal insulin * Levemir 150 units SQ HS * Bolus insulin * NovoLog per scale ACHS or Q6hrs while NPO * Goal Range: Low 110 mg/dL - High 140 mg/dL * Correction Factor: 10 mg/dL/unit * Nutritional / Prandial insulin per carb ratio of 1 unit per 3.5 grams CHO consumed
[2023-02-26] MEDS: OLANZapine 5 MG TABLET PO SCH (15:15)
[2023-02-26] MEDS: BENZTROPINE MESYLATE 1 MG TAB PO SCH (20:12)
[2023-02-26] MEDS: OLANZapine 10 MG TAB PO SCH (20:20)
[2023-02-26] MEDS: OLANZapine 20 MG TABLET PO SCH (20:23)
[2023-02-26] MEDS ORDERED: INSULIN DETEMIR SC SCH (22:00)
[2023-02-27] MEDS: MELATONIN 3 MG TAB PO PRN (00:47)
[2023-02-27] MEDS: ACETAMINOPHEN 325 MG TAB PO PRN (03:09)
[2023-02-27] MEDS: ROSUVASTATIN CALCIUM 20 MG TAB PO SCH (08:52)
[2023-02-27] MEDS: FERROUS SULFATE 325 MG TAB PO SCH (08:53)
[2023-02-27] MEDS: FENOFIBRATE NANOCRYSTALLIZED 145 MG TABLET PO SCH (08:53)
[2023-02-27] MEDS: CHOLECALCIFEROL 1,000 UNITS 25 MCG TAB PO SCH (08:53)
[2023-02-27] MEDS: ASPIRIN 81 MG ECTAB PO SCH (08:53)
[2023-02-27] MEDS: metFORMIN HCL ER 500 MG TABCR PO SCH (08:53)
[2023-02-27] MEDS: hydroCHLOROthiazide 25 MG TAB PO SCH (08:54)
[2023-02-27] MEDS: lisinopril 20 MG TAB PO SCH (08:54)
[2023-02-27] MEDS: CYANOCOBALAMIN (B-12) 500 MCG TABLET PO SCH (08:54)
[2023-02-27] MEDS ORDERED: INSULIN DETEMIR SC SCH (09:00)
[2023-02-27] MEDS: INSULIN ASPART PER UNIT CHARGE SC SCH ×2 (09:11→13:37)
[2023-02-27] MEDS: methIMAzole 5 MG TABLET PO SCH (09:24)
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
== END 2023-02-27 13:45 | disposition home or self-care (01) | DRG 885 ==
LOC: ED 10:01 → 3S 14:32

== ENCOUNTER 2024-07-09 10:01 | Inpatient (IN) ==
--- NOTE | 2024-07-09 10:40 | Emergency Department Note ---
Impression & Plan Suicidal ideation ED Provider Note Diagnosis: Suicidal ideations, paranoia Disposition: Admission behavioral health CHIEF COMPLAINT: Mental health evaluation HPI: Patient is a 59-year-old female presenting with complaint of paranoia and suicidal ideations. Patient states that symptoms have been ongoing for 1 to 2 weeks time. Patient states she last saw her psychiatrist 3 weeks prior. Patient states she has not had any medication changes. Patient states that she has been refusing some of her psychiatric medications. Patient states that her plan would be to overdose on pills if she was not admitted to the hospital. Patient's pills are held by facility staff where she lives currently. PAST MEDICAL HISTORY: See Below PAST SURGICAL HISTORY: See Below SOCIAL HISTORY: See Below HOME MEDICATIONS: See Below ALLERGIES: See Below VITALS: See Below PHYSICAL EXAMINATION: GENERAL: Well appearing, well nourished, NAD, non-toxic. EYE EXAM: Normal conjunctiva. OROPHARYNX: Moist mucus membranes. Grossly normal dentition. NECK: Supple, LUNGS: Clear to auscultation. Normal chest wall mechanics. HEART: NSR ABDOMEN: Abdomen soft, non-tender, normo-active bowel sounds, no masses, no rebound or guarding BACK: No CVA TTP. SKIN: No rashes and no bruising. UPPER EXTREMITIES: Upper extremities are grossly normal LOWER EXTREMITIES: Grossly normal, no edema. NEURO EXAM: A&O x3,, normal speech, moves all 4 extremities PSYCH: Cooperative MEDICAL DECISION MAKING: History obtained from: Patient ER Course: Patient 59-year-old female with previous history of suicidal ideations presenting with the same today. Patient's plan would be to overdose on her medications. Patient has not been taking her medications as prescribed. Patient medically cleared for inpatient psychiatric treatment. Patient's first urinalysis showed epithelial cells and I do not believe there was a urinary tract infection present. Repeat study was performed which is negative for infection. Labs (independently interpreted) are significant for: No electrolyte abnormalities Medications given: None Consultants: Behavioral health case management Triage Nursing notes reviewed and agree them. Vital Signs: reviewed and remarkable for: no significant abnormalities Past Med/Surg History Problem List (Updated 07/09/24 @ 14:07 by Burak Jimenez DO) Suicidal ideation (Acute) Long toenail Health care maintenance Hyperthyroidism Depression with suicidal ideation (Chronic) Schizophrenia (Chronic) Vitamin D deficiency Diabetes mellitus type 2, uncontrolled (Chronic) Dyslipidemia (Chronic) Hypertension (Chronic) Obesity Medical History Lab test negative for COVID-19 virus Leukocytosis Sleep disturbance Vaginitis Intertrigo Eczema Knee pain, bilateral PPD positive Graves disease Surgical History Hx of bilateral breast reduction surgery Hx of tonsillectomy Family History Father FHx: ischemic heart disease Cardiac disorder Unknown Ovarian cancer Uncle Prostate cancer Grandfather Myocardial infarction Grandmother Cancer Mother Hypertension Denies family history of Breast cancer Social History Smoking Status: Former smoker Tobacco Type: Cigarettes Age Started Using Tobacco: 44; Age Quit Using Tobacco: 45; packs per day: 0.5; Second Hand Exposure: No; Do You Dip or Chew Tobacco: No; Hx Alcohol Use: No Hx Substance Use: Yes (smoked marijuana in college) Prescribed Medications: Marijuana Preferred Language: Faroese Communication Ability: Effective Visual Impairment: No Limitations 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: Normal Conventions Reservationist Required: No Beliefs That Will Affect Care: None marital status: Single Current Living Situation: Personal Care Facility Current Living Situation Comment: [facility] current occupational status: unemployed How many Children do You have: 1 How many Children do You have Comment: 26 year old daughter that lives in [place]. Feels Safe at Home: No Diet: regular Diet Comment: meals prepared at the personal custodial. Uses a salt shaker. caffeine: Yes (1 cup of tea in the morning. ) during the past year weight has: remained stable Dental Care, Regularly: Yes Physical Activity Frequency: 1-2 Times per Week Physical Activity Frequency Comment: walking outside in the garden. Seatbelt Use: always Do you think of yourself as: straight/heterosexual Gender Identity: Female Assistive Devices: Glasses Allergies Allergies Allergy/AdvReac Type Severity Reaction Status Date / Time sulfamethoxazole Allergy Mild Difficulty Verified 07/09/24 11:17 [From Bactrim] Breathing trimethoprim [From Bactrim] Allergy Mild Difficulty Verified 07/09/24 11:17 Breathing [id number] Reductase Allergy Unknown Verified 07/09/24 11:17 Inhibitor Home Meds Home Medications Medication Instructions Recorded Confirmed olanzapine 5 mg tablet See Rx Instructions .Route .COMPLEX 02/24/23 07/09/24 hydroxyzine HCl 25 mg tablet 25 mg PO BID PRN Anxiety 05/23/23 07/09/24 insulin detemir U-100 100 unit/mL See Rx Instructions subcut BID 07/09/24 07/09/24 (3 mL) subcutaneous pen (Levemir FlexPen) Previous Rx's Medication Instructions Recorded benztropine 1 mg tablet 1 mg PO HS 30 days #30 tabs 09/14/21 olanzapine 10 mg tablet 10 mg PO HS 30 days #30 tabs 09/14/21 olanzapine 20 mg tablet 20 mg PO HS 30 days #30 tabs 09/14/21 cyanocobalamin (vitamin B-12) 1,000 mcg PO QAM #90 tabs 10/08/21 1,000 mcg tablet (Vitamin B-12) cholecalciferol (vitamin D3) 50 50 mcg PO DAILY #90 caps 02/08/23 mcg (2,000 unit) capsule ferrous sulfate 325 mg (65 mg 325 mg PO Q OTHER DAY #45 tabs 05/15/23 iron) tablet acetaminophen 325 mg tablet 325 mg PO QID PRN pain #360 tabs 10/27/23 (Tylenol) empagliflozin 25 mg tablet 25 mg PO DAILY #90 tabs 11/08/23 (Jardiance) lisinopril 40 mg tablet 40 mg PO BID #180 tabs 11/08/23 lancets 30 gauge #200 ea 01/25/24 semaglutide 0.25 mg or 0.5 mg (2 0.5 mg (0.736 mL) subcut .week #3 02/28/24 mg/3 mL) subcutaneous pen injector mL (Ozempic) rosuvastatin 40 mg tablet 40 mg PO DAILY #30 tabs 03/01/24 pen needle, diabetic 32 gauge x #300 ea 03/19/24" (BD Ultra-Fine Bhavya Pen Needle) liraglutide 0.6 mg/0.1 mL (18 mg/3 1.8 mg (0.3 mL) subcut DAILY 30 03/25/24 mL) subcutaneous pen injector days #9 mL (Victoza 3-Antione) fenofibrate nanocrystallized 145 145 mg PO QAM #90 tabs 03/28/24 mg tablet methimazole 10 mg tablet 10 mg PO QAM 30 days #30 tabs 04/01/24 amlodipine 10 mg tablet 10 mg PO DAILY #30 tabs 05/30/24 metoprolol succinate 25 mg 25 mg PO DAILY #30 tabs 05/30/24 tablet,extended release 24 hr blood sugar diagnostic (OneTouch #200 ea 06/13/24 Ultra Test strips) metformin 500 mg tablet,extended 500 mg PO BIDM #60 tabs 06/26/24 release 24 hr Results & Data (ED) Vital Signs Vital Signs - 24 hr 07/09/24 10:07 07/09/24 10:07 07/09/24 12:00 Temperature 37.1 C Temperature Source Temporal Artery Scan Pulse Rate 78 Pulse Rate [Radial] 72 Pulse Rhythm [Radial] Regular Respiratory Rate 20 18 Respiratory Effort / Characteristics Non-Labored Non-Labored Non-Labored Respiratory Depth Normal Normal Normal Respiratory Pattern Regular Blood Pressure 162/95 H Blood Pressure [Left Arm] 135/77 Blood Pressure Mean 117 Blood Pressure Mean [Left Arm] 96 Pulse Oximetry 95 93 Oxygen Delivery Method Room Air Room Air Room Air Sepsis Recent Fever Within 48 Hours No Sepsis New/Unexplained Change in Mental Status No Sepsis Action Taken by Nursing No Action Required Laboratory Data 07/09/24 10:22 07/09/24 10:22 Lab Results 07/09/24 07/09/24 07/09/24 Range/Units 10:22 12:22 13:05 WBC 11.26 H (4.8-10.8) K/ul RBC 5.89 H (4.20-5.40) M/uL Hgb 15.5 (12.0-16.0) g/dl Hct 46.3 (37.0-47.0) % MCV 78.6 L (80.0-100.0) fL MCH 26.3 (25.0-34.0) pg MCHC 33.5 (32.0-36.0) g/dL RDW Std Deviation 39.0 (36.4-46.3) fL RDW Coeff of Abel 13.9 (11.5-14.5) % Plt Count 359 (130-400) K/uL MPV 8.3 L (9.4-12.4) fL Immature Gran % (Auto) 0.3 % Neut % (Auto) 65.9 % Lymph % (Auto) 25.0 % Runnels % (Auto) 6.0 % Eos % (Auto) 2.1 % Baso % (Auto) 0.7 % Neut # (Auto) 7.43 H (1.40-6.50) K/uL Lymph # (Auto) 2.81 (1.20-3.40) K/uL Runnels # (Auto) 0.67 H (0.11-0.59) K/uL Eos # (Auto) 0.24 (0.00-0.50) K/uL Baso # (Auto) 0.08 (0.00-0.20) K/uL Immature Gran # (Auto) 0.03 (0.01-0.20) K/uL Sodium 141 (136-145) mmol/L Potassium 4.0 (3.5-5.1) mmol/L Chloride 107 (98-107) mmol/L Carbon Dioxide 21 (21-32) mmol/L Anion Gap 13 H (3-11) BUN 11 (6-23) mg/dl Creatinine 0.70 (0.6-1.2) mg/dl Est Cr Clr Drug Dosing 91.0 ml/min eGFR 99.57 BUN/Creatinine Ratio 15.7 (10-20) Glucose 239 H (70-99(Fasting)) mg/dl POC Glucose 137 H (70-99) mg/dl Calcium 10.0 (8.6-10.3) mg/dl Total Bilirubin 0.5 (0.2-1.0) mg/dl AST 29 (13-39) U/L ALT 31 (7-52) U/L Alkaline Phosphatase 117 H (34-104) U/L Total Protein 7.2 (6.0-8.3) gm/dl Albumin 4.7 (3.4-5.0) gm/dl Globulin 2.5 (2.5-4.0) gm/dl Albumin/Globulin Ratio 1.9 (0.9-2) TSH 0.609 (0.300-4.500) uIu/ml Urine Color Yellow Yellow Urine Appearance Cloudy A Clear (Clear) Urine pH 5.5 7.0 (4.5-7.5) Ur Specific O'Brien 1.042 H 1.044 H (1.000-1.030) Urine Protein Negative Negative (Negative) Urine Glucose (UA) 3+ H 3+ H (Negative) Urine Ketones Negative Negative (Negative) Urine Blood Negative Negative (Negative) Urine Nitrite Negative Negative (Negative) Urine Bilirubin Negative Negative (Negative) Urine Urobilinogen Negative Negative (Negative) Ur Leukocyte Esterase 1+ H Negative (Negative) Urine WBC (Auto) 21-50 H [employer] (0-5) /hpf Urine RBC (Auto) 0-2 [employer] (0-2) /hpf U Hyaline Cast (Auto) 3-5 H [employer] (0-2) /lpf U Epithel Cells (Auto) >20 H [employer] (0-2) /hpf Urine Bacteria (Auto) 4+ H [employer] (None Seen) Ur Renal Epithelial Cell [employer] Petar Biurate Crystals [employer] Calcium Oxalate Crystal [employer] Leucine Crystals [employer] Cystine Crystals [employer] Uric Acid Crystals [employer] Triple Phos Crystals [employer] Sulfonamide Crystals [employer] Cholesterol Crystals [employer] Talc Crystals [employer] Tyrosine Crystals [employer] Hippuric Acid Crystals [employer] Unidentified Crystals [employer] Amorphous Sediment [employer] Epithelial Casts [employer] Hyaline Casts [employer] Granular Casts [employer] Waxy Casts [employer] RBC Casts [employer] WBC Casts [employer] Other Casts [employer] Urine Mucus [employer] Urine Other [employer] Urine Trichomonas [employer] Urine Yeast Present A [employer] (None Prsent) Urine Sperm [employer] Ur Oval Fat Bodies [employer] Salicylates < 3.0 L (3.0-30) mg/dl Urine Opiates Screen Neg (Neg) Ur Methadone, Qual Neg (Neg) Urine Fentanyl Screen Neg (Neg) Acetaminophen < 3 L (10-30) ug/ml Urine Barbiturates Neg (Neg) Ur Phencyclidine (PCP) Neg (Neg) U Amphetamin/Meth Scrn Neg (Neg) MDMA (Ecstasy) Screen Neg (Neg) U Benzodiazepines Scrn Neg (Neg) Ur Cocaine Metabolite Neg (Neg) U Marijuana (THC) Screen Neg (Neg) Ethyl Alcohol mg/dL < 10.0 (<10.0) mg/dl SARS-CoV-2, RNA, NAAT NEGATIVE (NEGATIVE) Discharge Plan Visit Data Chief Complaint: Mental Health Evaluation Stated Complaint: [facility] ED Provider: Burak Jimenez Discharge Problem: Suicidal ideation Patient Disposition: Admitted As Inpatient Discharge Instructions Interventions: ED Discharge Assessment Last Done: 07/09/24 13:28
[2024-07-09 10:45] LABS: Basophils # (auto) 0.08 K/uL (0.00-0.20); Basophils % (auto) 0.7 %; Eosinophils # (auto) 0.24 K/uL (0.00-0.50); Eosinophils % (auto) 2.1 %; Hematocrit (blood only) 46.3 % (37.0-47.0); Hemoglobin 15.5 g/dl (12.0-16.0); Immature Granulocytes # (auto) 0.03 K/uL (0.01-0.20); Immature Granulocytes % (auto) 0.3 %; Lymphocytes # (auto) 2.81 K/uL (1.20-3.40); Mean Corpuscular Hemoglobin 26.3 pg (25.0-34.0); Mean Corpuscular Hgb Conc 33.5 g/dL (32.0-36.0); Mean Corpuscular Volume 78.6 fL (80.0-100.0); Mean Platelet Volume 8.3 fL (9.4-12.4); Monocytes # (auto) 0.67 K/uL (0.11-0.59); Neutrophils # (auto) 7.43 K/uL (1.40-6.50); Neutrophils % (auto) 65.9 %; Platelet Count 359 K/uL (130-400); RDW Coefficient of Variation 13.9 % (11.5-14.5); Red Blood Count 5.89 M/uL (4.20-5.40); White Blood Count 11.26 K/ul (4.8-10.8)
[2024-07-09 11:01] LABS: Acetaminophen < 3 ug/ml (10-30); Salicylate < 3.0 mg/dl (3.0-30)
[2024-07-09 11:19] LABS: Albumin Globulin Ratio 1.9 (0.9-2); Albumin Level 4.7 gm/dl (3.4-5.0); BUN Creatinine Ratio 15.7 (10-20); Bilirubin,Total 0.5 mg/dl (0.2-1.0); Globulin 2.5 gm/dl (2.5-4.0); Total Protein 7.2 gm/dl (6.0-8.3)
[2024-07-09 11:32] LABS: Thyroid Stimulating Hormone 0.609 uIu/ml (0.300-4.500)
[2024-07-09 11:42] LABS: Appearance Urine Cloudy (Clear); Bacteria Urine Automated 4+ (None Seen); Bilirubin Urine Negative (Negative); Blood Urine Negative (Negative); Color Urine Yellow; Epithelial Cell Urine Auto >20 /hpf (0-2); Glucose Urine UA 3+ (Negative); Ketones Urine Negative (Negative); Leukocyte Esterase Urine 1+ (Negative); Nitrite Urine Negative (Negative); Protein Urine Negative (Negative); RBC Urine Automated 0-2 /hpf (0-2); Specific Gravity Urine 1.042 (1.000-1.030); Urobilinogen Urine Negative (Negative); WBC Urine Automated 21-50 /hpf (0-5); pH Urine 5.5 (4.5-7.5)
[2024-07-09 12:09] LABS: Amphetamines+Metham, Urine Neg (Neg); Barbiturates, Urine Neg (Neg); Benzodiazepine, Urine Neg (Neg); Cocaine, Urine Neg (Neg); Fentanyl, Urine Neg (Neg); MDMA (Ecstacy), Urine Neg (Neg); Marijuana, Urine Neg (Neg); Methadone, Urine Neg (Neg); Opiate, Urine Neg (Neg); Phencyclidine, Urine Neg (Neg)
[2024-07-09] MEDS ORDERED: hydrOXYzine HCl 25 MG TAB PO PRN ×2 (13:08)
[2024-07-09] MEDS ORDERED: ACETAMINOPHEN 325 MG TAB PO PRN (13:08)
[2024-07-09] MEDS ORDERED: SODIUM CHLORIDE 0.65% NA SOLN 45 ML (OCEAN) PRN (13:08)
[2024-07-09] MEDS ORDERED: ALUMINUM/MAGNESIUM SUSP 30 ML UDC PO PRN (13:08)
[2024-07-09] MEDS ORDERED: BISMUTH SUBSALICYLATE 262 MG CHEW PO PRN (13:08)
[2024-07-09] MEDS ORDERED: MAGNESIUM HYDROXIDE SUSP 30 ML UDC PO PRN (13:08)
[2024-07-09 13:47] LABS: Appearance Urine Clear (Clear); Bilirubin Urine Negative (Negative); Blood Urine Negative (Negative); Color Urine Yellow; Glucose Urine UA 3+ (Negative); Ketones Urine Negative (Negative); Leukocyte Esterase Urine Negative (Negative); Nitrite Urine Negative (Negative); Protein Urine Negative (Negative); Specific Gravity Urine 1.044 (1.000-1.030); Urobilinogen Urine Negative (Negative)
[2024-07-09] MEDS ORDERED: PHARMACY GLYCEMIC MGMT CONSULT PRN (15:01)
[2024-07-09] MEDS: OLANZapine 5 MG TABLET PO SCH (16:01)
[2024-07-09] MEDS: LANTUS PER UNIT CHARGE SC SCH (17:22)
[2024-07-09] MEDS: metFORMIN HCL ER 500 MG TABCR PO SCH (17:25)
[2024-07-09] MEDS: INSULIN ASPART PER UNIT CHARGE SC SCH (17:51)
[2024-07-09] MEDS: OLANZapine 20 MG TABLET PO SCH (20:49)
[2024-07-09] MEDS: lisinopril 40 MG TAB PO SCH (20:49)
[2024-07-09] MEDS: OLANZapine 10 MG TAB PO SCH (20:50)
[2024-07-10 06:53] VITALS: RESP 16
[2024-07-10] MEDS ORDERED: EMPAGLIFLOZIN 25 MG TAB PO SCH (09:00)
[2024-07-10] MEDS: CHOLECALCIFEROL 25 MCG (1000 UNITS) TAB PO SCH (09:20)
[2024-07-10] MEDS: amLODIPine BESYLATE 5 MG TAB PO SCH (09:20)
[2024-07-10] MEDS: CYANOCOBALAMIN (B-12) 500 MCG TABLET PO SCH (09:20)
[2024-07-10] MEDS: FENOFIBRATE NANOCRYSTALLIZED 145 MG TABLET PO SCH (09:20)
--- NOTE | 2024-07-10 09:20 | History & Physical ---
Date of Service July 10, 2024 Impression / Recommendations Impression SANJUANITA OLSON is a 59-year-old woman who currently lives in [facility], has a history of schizophrenia and depression, and was admitted on 07/09/24 13:08 on a 201 voluntary commitment for SI with plan of overdosing on medication and with AH with increased paranoia. Diagnostically consistent with acute exacerbation of schizophrenia with delusions, paranoia, increased negative thoughts and recent SI with plan prior to admission. Mood improving since arriving to inpatient unit, still with paranoia and delusions but able to reality-test these somewhat. She is not interested in any medication changes, prefers to remain on olanzapine. Discussed risks, benefits and alternatives. Reviewed side effects including but not limited to: above FDA recommended max dose, movement (TD, NMS), cardiac (QTc prolongation), and metabolic (stroke, insulin resistance) and necessity for fasting lipid and glucose labwork and AIMS done with score of 0. Seems she has been adherent with olanzapine per her report but possible she has been skipping some doses due to somatic delusions as she vocalized paranoia about possible side effects to certain insulin formulations today. MNPR-paranoia about others stealing items at night, delusions related to others Overall I spent a total of 75 minutes for this admission including review of chart records, review of labwork, direct evaluation of the patient, counseling the patient, ordering medication, risk assessment, discussion with the psychiatric liason RN and documentation in the electronic health record. (1) Schizophrenia: Schizophrenia type: paranoid schizophrenia Qualified Code(s): F20.0 - Paranoid schizophrenia (2) Suicidal ideation: (3) Paranoia: (4) Delusions: Plan 07/10/2024: The patient was admitted to the [facility]) on q15 min checks (behavioral with suicide precautions) for safety. The patient will participate in group, recreational, and milieu therapies and will be offered additional individual and family sessions as clinically appropriate. -Continue prior to admission medications including * olanzapine 30mg HS -Check EKG to ensure stable QTc given olanzapine is above FDA recommended max dose. -Fasting lipid panel, HbA1c, vit D, vit B12 in the morning Inventory Assets Strengths: supportive relationships, willing to get treatment Needs: safety and stabilization, medication adjustment, additional coping skills, increased outpatient services Suicide Risk Level Suicide Risk Level: Moderate (q15 min suicide checks) (SI with plan prior to admission with increased paranoia and psychosis but feels safe in the hospital, denying SI today, feels able to ask for support if needed) Suicide Risk Level Comments: Risk Factors Assessment Male: No : Yes Do You Have Access To A Gun?: No Health Problems: Yes Mental Health Diagnoses: Yes Substance Use Disorders: No Previous Attempt: Yes Family History of Suicide: No Previous Psychiatric Hospitalization: Yes Hopelessness: No Protective Factors Assessment [employer]aritan Beliefs: Yes Employed: No Stable Relationships: Yes Supportive Family: Yes Good Rapport with Provider: Yes Psychiatric History Identifying Data SANJUANITA OLSON is a 59-year-old woman who currently lives in [facility], has a history of schizophrenia and depression, and was admitted on 07/09/24 13:08 on a 201 voluntary commitment for SI with plan of overdosing on medication and with AH with increased paranoia. Chief Complaint "I felt uncomfortable being in my room, feels like people are breaking in and stealing stuff, I know it's a delusion but it's scary, attacking my body and things like that". History of Present Illness Sanjuanita presents for psychiatric evaluation due to worsening delusions and paranoia of someone breaking in and stealing belongings, despite acknowledging these thoughts are likely delusions. She is frightened by these delusions but denies any actual missing items in the morning. No recent stressors identified as contributing to increased delusions, though she notes this is a typical time of year for such occurrences and that hospitalization usually helps her feel safer once she returns to [facility]. She denies current suicidal ideation and auditory hallucinations but acknowledges SI prior to admission. She feels her paranoia diminishes in group settings and she's looking forward to participating in the groups, references that she always feels safe and well cared for on [address]. Reflects: "I don't know what it is but it happens every year and then I go into hospital and it gets better". She notes "I feel paranoid and it catches up to me". She thinks pos itive imagery and going to jainism might help. Explains "Sometimes I feel paranoia that the whole world is against me, and that my family hates me but my therapist helps me feel more hopeful". She recognizes delusions and paranoid thoughts as spiritual experiences or due to past sexual problems she has healed through sabianism. Expresses concern about insulin medication and fear of "going blind or crazy." She reports a history of untreated illness and sexual problems, which she believes have improved since attending jainism. States feeling "200% better" after proper treatment via jainism for this. Currently working with a therapist and feels this has also helped her hopefulness and to combat negative thoughts. Psychiatric ROS notable for nighttime delusions, paranoia, and feelings of bod naif/property violation. No current suicidal ideation or auditory hallucinations. Past Psychiatric History Current Psychiatric Diagnosis: Schizoaffective D/O Outpatient Services: [facility] with Lulu [facility] therapy with Yolanda Previous Psych Admissions: multiple, most recent [facility] in January 2023, November 2022, December 2021, past at [facility] Do You Have Access To A Gun?: No History of Previous Suicide Attempt: Yes Describe Attempts in the Past: estimates 4x, via overdose, last May 2022 Past Medication Trials: many including multiple monotherapy antipsychotic trials >3, history of dual therapy with olanzapine and seroquel; unclear if clozapine trial Past Head Trauma/Neuro History History of Concussion/Seizure: No Allergies Allergy/AdvReac Type Severity Reaction Status Date / Time sulfamethoxazole Allergy Mild Difficulty Verified 07/09/24 11:17 [From Bactrim] Breathing trimethoprim [From Bactrim] Allergy Mild Difficulty Verified 07/09/24 11:17 Breathing [id number] Reductase Allergy Unknown Verified 07/09/24 11:17 Inhibitor Home Medications Medication Instructions Recorded Confirmed Type benztropine 1 mg tablet 1 mg PO HS 30 days #30 tabs 09/14/21 07/09/24 Rx olanzapine 10 mg tablet 10 mg PO HS 30 days #30 tabs 09/14/21 07/09/24 Rx olanzapine 20 mg tablet 20 mg PO HS 30 days #30 tabs 09/14/21 07/09/24 Rx cyanocobalamin (vitamin B-12) 1,000 mcg PO QAM #90 tabs 10/08/21 07/09/24 Rx 1,000 mcg tablet (Vitamin B-12) cholecalciferol (vitamin D3) 50 50 mcg PO DAILY #90 caps 02/08/23 07/09/24 Rx mcg (2,000 unit) capsule olanzapine 5 mg tablet See Rx Instructions .Route .COMPLEX 02/24/23 07/09/24 History ferrous sulfate 325 mg (65 mg 325 mg PO Q OTHER DAY #45 tabs 05/15/23 07/09/24 Rx iron) tablet hydroxyzine HCl 25 mg tablet 25 mg PO BID PRN Anxiety 05/23/23 07/09/24 History acetaminophen 325 mg tablet 325 mg PO QID PRN pain #360 tabs 10/27/23 07/09/24 Rx (Tylenol) empagliflozin 25 mg tablet 25 mg PO DAILY #90 tabs 11/08/23 07/09/24 Rx (Jardiance) lisinopril 40 mg tablet 40 mg PO BID #180 tabs 11/08/23 07/09/24 Rx lancets 30 gauge #200 ea 01/25/24 07/09/24 Rx semaglutide 0.25 mg or 0.5 mg (2 0.5 mg (0.736 mL) subcut .week #3 02/28/24 07/09/24 Rx mg/3 mL) subcutaneous pen injector mL (Ozempic) rosuvastatin 40 mg tablet 40 mg PO DAILY #30 tabs 03/01/24 07/09/24 Rx pen needle, diabetic 32 gauge x #300 ea 03/19/24 07/09/24 Rx 5/32" (BD Ultra-Fine Bhavya Pen Needle) liraglutide 0.6 mg/0.1 mL (18 mg/3 1.8 mg (0.3 mL) subcut DAILY 30 03/25/24 07/09/24 Rx mL) subcutaneous pen injector days #9 mL (Victoza 3-Antione) fenofibrate nanocrystallized 145 145 mg PO QAM #90 tabs 03/28/24 07/09/24 Rx mg tablet methimazole 10 mg tablet 10 mg PO QAM 30 days #30 tabs 04/01/24 07/09/24 Rx amlodipine 10 mg tablet 10 mg PO DAILY #30 tabs 05/30/24 07/09/24 Rx metoprolol succinate 25 mg 25 mg PO DAILY #30 tabs 05/30/24 07/09/24 Rx tablet,extended release 24 hr blood sugar diagnostic (OneTouch #200 ea 06/13/24 07/09/24 Rx Ultra Test strips) metformin 500 mg tablet,extended 500 mg PO BIDM #60 tabs 06/26/24 07/09/24 Rx release 24 hr insulin detemir U-100 100 unit/mL See Rx Instructions subcut BID 07/09/24 07/09/24 History (3 mL) subcutaneous pen (Levemir FlexPen) Family History Family History of: Doesn't Know Alcohol History Hx of Alcohol Use Over the Past 12 Months: No AUDIT Total Score: 0 Smoking Use Have You Smoked or Used Tobacco Products in the Last 30 Days: No tobacco type: cigarettes Smoking Status: Former smoker Substance History Hx of Prescription Med Misuse Over the Past 12 Months: No Hx of Over the Counter Med Misuse Over the Past 12 Months: No Hx of Inhalent Misuse Over the Past 12 Months: No Hx of Organic Substance Use Over the Past 12 Months: No Hx of Illegal Substances/Street Drug Use Over Past 12 Months: No Problems as a Result of Past Substance Use: None Identified Personal History Living Arrangements: Personal Care Facility Born In: [facility]. Highest Grade Completed: College Beliefs That Will Affect Care: None Hx Legal Problems: No Hx Traumatic Life Events: No Patient History Medical History Lab test negative for COVID-19 virus Leukocytosis Sleep disturbance Vaginitis Intertrigo Eczema Knee pain, bilateral PPD positive 19 mm in ->( Tx 9 months ) no longer PPD need Graves disease Surgical History Hx of bilateral breast reduction surgery Hx of tonsillectomy Family History Father FHx: ischemic heart disease before age 50 Cardiac disorder Unknown Ovarian cancer Uncle Prostate cancer Grandfather Myocardial infarction Grandmother Cancer Mother Hypertension Denies family history of Breast cancer Social History Smoking Status: Former smoker Tobacco Type: Cigarettes Age Started Using Tobacco: 44; Age Quit Using Tobacco: 45; packs per day: 0.5; Second Hand Exposure: No; Do You Dip or Chew Tobacco: No; Hx Alcohol Use: No Hx Substance Use: Yes (smoked marijuana in college) Prescribed Medications: Marijuana Preferred Language: Nepali Communication Ability: Effective Visual Impairment: No Limitations 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: Normal Fatback Trimmer Required: No Beliefs That Will Affect Care: None marital status: Single Current Living Situation: Personal Care Facility Current Living Situation Comment: [facility] current occupational status: unemployed How many Children do You have: 1 How many Children do You have Comment: 26 year old daughter that lives in [place]. Feels Safe at Home: No Diet: regular Diet Comment: meals prepared at the personal [facility]. Uses a salt shaker. caffeine: Yes (1 cup of tea in the morning. ) during the past year weight has: remained stable Dental Care, Regularly: Yes Physical Activity Frequency: 1-2 Times per Week Physical Activity Frequency Comment: walking outside in the garden. Seatbelt Use: always Do you think of yourself as: straight/heterosexual Gender Identity: Female Assistive Devices: Glasses Review of Systems Review of Systems: All systems reviewed & are unremarkable except as noted in HPI & below Physical Exam Psychiatric: Orientation: alert and oriented x 3 Apperance: appropriately dressed and appropriately groomed Eye Contact: good eye contact Motor Behavior: no abnormal motor movements Speech: normal rate/rhythm/volume of speech Affect: + anxious affect and + constricted affect Mood: + depressed mood and + anxious mood Thought Process: + concrete thought process Thought Content: + paranoid and + delusions Suicidal Thoughts: denies suicidal plan and denies suicidal intent; + reports suicidal thoughts (intermittent, denies today) Homicidal Thoughts: denies homicidal thoughts Hallucinations: no auditory hallucinations and no visual hallucinations Cognition: recent memory grossly intact, remote memory grossly intact, attention grossly intact and language grossly intact Estimated Intelligence: consistent with education level Insight: + fair insight Judgment: + limited judgement Vital Signs (Past 24 Hours): Last Vital Signs Temp 36.4 C L 07/10/24 06:50 Pulse 74 07/10/24 06:51 Resp 16 07/10/24 06:50 BP 152/87 H 07/10/24 06:51 Pulse Ox 99 07/09/24 13:38 O2 Del Method Room Air 07/09/24 13:38 Exam Statement: A physical exam was performed in the ED by Dr. Jimenez for the purposes of medical clearance. I accept that physical as correct and adequate for the purposes of the inpatient physical exam. Results & Data ([facility]) Laboratory Results Laboratory Results - last 24 hr 07/09/24 07/09/24 07/09/24 10:22 12:22 13:05 WBC 11.26 H RBC 5.89 H Hgb 15.5 Hct 46.3 MCV 78.6 L MCH 26.3 MCHC 33.5 RDW Std Deviation 39.0 RDW Coeff of Abel 13.9 Plt Count 359 MPV 8.3 L Immature Gran % (Auto) 0.3 Neut % (Auto) 65.9 Lymph % (Auto) 25.0 Snyder % (Auto) 6.0 Eos % (Auto) 2.1 Baso % (Auto) 0.7 Neut # (Auto) 7.43 H Lymph # (Auto) 2.81 Snyder # (Auto) 0.67 H Eos # (Auto) 0.24 Baso # (Auto) 0.08 Immature Gran # (Auto) 0.03 Sodium 141 Potassium 4.0 Chloride 107 Carbon Dioxide 21 Anion Gap 13 H BUN 11 Creatinine 0.70 Est Cr Clr Drug Dosing 91.0 eGFR 99.57 BUN/Creatinine Ratio 15.7 Glucose 239 H POC Glucose 137 H Calcium 10.0 Total Bilirubin 0.5 AST 29 ALT 31 Alkaline Phosphatase 117 H Total Protein 7.2 Albumin 4.7 Globulin 2.5 Albumin/Globulin Ratio 1.9 TSH 0.609 Urine Color Yellow Yellow Urine Appearance Cloudy A Clear Urine pH 5.5 7.0 Ur Specific [place] 1.042 H 1.044 H Urine Protein Negative Negative Urine Glucose (UA) 3+ H 3+ H Urine Ketones Negative Negative Urine Blood Negative Negative Urine Nitrite Negative Negative Urine Bilirubin Negative Negative Urine Urobilinogen Negative Negative Ur Leukocyte Esterase 1+ H Negative Urine WBC (Auto) 21-50 H SALES OFFICE COORDINATOR Urine RBC (Auto) 0-2 SALES OFFICE COORDINATOR U Hyaline Cast (Auto) 3-5 H SALES OFFICE COORDINATOR U Epithel Cells (Auto) >20 H SALES OFFICE COORDINATOR Urine Bacteria (Auto) 4+ H SALES OFFICE COORDINATOR Ur Renal Epithelial Cell SALES OFFICE COORDINATOR [place] Biurate Crystals SALES OFFICE COORDINATOR Calcium Oxalate Crystal SALES OFFICE COORDINATOR Leucine Crystals SALES OFFICE COORDINATOR Cystine Crystals SALES OFFICE COORDINATOR Uric Acid Crystals SALES OFFICE COORDINATOR Triple Phos Crystals SALES OFFICE COORDINATOR Sulfonamide Crystals SALES OFFICE COORDINATOR Cholesterol Crystals SALES OFFICE COORDINATOR Talc Crystals SALES OFFICE COORDINATOR Tyrosine Crystals SALES OFFICE COORDINATOR Hippuric Acid Crystals SALES OFFICE COORDINATOR Unidentified Crystals SALES OFFICE COORDINATOR Amorphous Sediment SALES OFFICE COORDINATOR Epithelial Casts SALES OFFICE COORDINATOR Hyaline Casts SALES OFFICE COORDINATOR Granular Casts SALES OFFICE COORDINATOR Waxy Casts SALES OFFICE COORDINATOR RBC Casts SALES OFFICE COORDINATOR WBC Casts SALES OFFICE COORDINATOR Other Casts SALES OFFICE COORDINATOR Urine Mucus SALES OFFICE COORDINATOR Urine Other SALES OFFICE COORDINATOR Urine Trichomonas SALES OFFICE COORDINATOR Urine Yeast Present A SALES OFFICE COORDINATOR Urine Sperm SALES OFFICE COORDINATOR Ur Oval Fat Bodies SALES OFFICE COORDINATOR Salicylates < 3.0 L Urine Opiates Screen Neg Ur Methadone, Qual Neg Urine Fentanyl Screen Neg Acetaminophen < 3 L Urine Barbiturates Neg Ur Phencyclidine (PCP) Neg U Amphetamin/Meth Scrn Neg MDMA (Ecstasy) Screen Neg U Benzodiazepines Scrn Neg Ur Cocaine Metabolite Neg U Marijuana (THC) Screen Neg Ethyl Alcohol mg/dL < 10.0 SARS-CoV-2, RNA, NAAT NEGATIVE 07/09/24 07/09/24 07/10/24 17:08 20:21 08:18 WBC RBC Hgb Hct MCV MCH MCHC RDW Std Deviation RDW Coeff of Abel Plt Count MPV Immature Gran % (Auto) Neut % (Auto) Lymph % (Auto) Snyder % (Auto) Eos % (Auto) Baso % (Auto) Neut # (Auto) Lymph # (Auto) Snyder # (Auto) Eos # (Auto) Baso # (Auto) Immature Gran # (Auto) Sodium Potassium Chloride Carbon Dioxide Anion Gap BUN Creatinine Est Cr Clr Drug Dosing eGFR BUN/Creatinine Ratio Glucose POC Glucose 167 H 216 H 140 H Calcium Total Bilirubin AST ALT Alkaline Phosphatase Total Protein Albumin Globulin Albumin/Globulin Ratio TSH Urine Color Urine Appearance Urine pH Ur Specific [place] Urine Protein Urine Glucose (UA) Urine Ketones Urine Blood Urine Nitrite Urine Bilirubin Urine Urobilinogen Ur Leukocyte Esterase Urine WBC (Auto) Urine RBC (Auto) U Hyaline Cast (Auto) U Epithel Cells (Auto) Urine Bacteria (Auto) Ur Renal Epithelial Cell Petar Biurate Crystals Calcium Oxalate Crystal Leucine Crystals Cystine Crystals Uric Acid Crystals Triple Phos Crystals Sulfonamide Crystals Cholesterol Crystals Talc Crystals Tyrosine Crystals Hippuric Acid Crystals Unidentified Crystals Amorphous Sediment Epithelial Casts Hyaline Casts Granular Casts Waxy Casts RBC Casts WBC Casts Other Casts Urine Mucus Urine Other Urine Trichomonas Urine Yeast Urine Sperm Ur Oval Fat Bodies Salicylates Urine Opiates Screen Ur Methadone, Qual Urine Fentanyl Screen Acetaminophen Urine Barbiturates Ur Phencyclidine (PCP) U Amphetamin/Meth Scrn MDMA (Ecstasy) Screen U Benzodiazepines Scrn Ur Cocaine Metabolite U Marijuana (THC) Screen Ethyl Alcohol mg/dL SARS-CoV-2, RNA, NAAT Current Inpatient Medications Current Inpatient Medications: Current Inpatient Medications Acetaminophen (Acetaminophen 325 Mg Tab) 650 mg PO Q4H PRN PRN Reason: Headache or Minor Fever Stop: 08/08/24 13:07 Al Hydrox/Mg Hydrox/Simethicone (Aluminum/Magnesium Susp 30 Ml Udc) 30 ml PO Q4H PRN PRN Reason: GI Upset Stop: 08/08/24 13:07 Amlodipine Besylate (Amlodipine Besylate 5 Mg Tab) 10 mg PO DAILY [facility] Stop: 08/09/24 08:59 Bismuth Subsalicylate (Bismuth Subsalicylate 262 Mg Chew) 2 tab PO Q30M PRN PRN Reason: Loose Stool/Diarrhea Stop: 08/08/24 13:07 Cyanocobalamin (Cyanocobalamin (B-12) 500 Mcg Tablet) 1,000 mcg PO QAM [facility] Stop: 08/09/24 08:59 Fenofibrate (Fenofibrate Nanocrystallized 145 Mg Tablet) 145 mg PO QAM [facility] Stop: 08/09/24 08:59 Ferrous Sulfate (Ferrous Sulfate 325 Mg Tab) 325 mg PO Q2D@0900 [facility] Stop: 08/09/24 08:59 Hydroxyzine HCl (Hydroxyzine Hcl 25 Mg Tab) 50 mg PO HSZ PRN PRN Reason: Insomnia Stop: 08/08/24 13:07 Hydroxyzine HCl (Hydroxyzine Hcl 25 Mg Tab) 25 mg PO Q4H PRN PRN Reason: Anxiety Stop: 08/08/24 13:07 Insulin Aspart (Insulin Aspart Per Unit Charge) 0 units SC ACHS [facility] Stop: 08/08/24 17:14 Last Admin: 07/09/24 20:55 Dose: 11 units Insulin Glargine (Lantus Per Unit Charge) 90 units SC DAILY [facility] Stop: 08/09/24 08:59 Insulin Glargine (Lantus Per Unit Charge) 70 units SC HS [facility] Stop: 08/09/24 21:59 Lisinopril (Lisinopril 40 Mg Tab) 40 mg PO BID [facility] Stop: 08/08/24 20:59 Last Admin: 07/09/24 20:49 Dose: 40 mg Magnesium Hydroxide (Magnesium Hydroxide Susp 30 Ml Udc) 30 ml PO DAILY PRN PRN Reason: Constipation Stop: 08/08/24 13:07 Metformin HCl (Metformin Hcl Er 500 Mg Tabcr) 500 mg PO BIDM [facility] Stop: 08/08/24 17:44 Last Admin: 07/09/24 17:25 Dose: 500 mg Methimazole (Methimazole 5 Mg Tablet) 10 mg PO QAM [facility] Stop: 08/09/24 08:59 Metoprolol Succinate (Metoprolol Succ 25mg Ext Rel Tab) 25 mg PO DAILY [facility] Stop: 08/09/24 08:59 Miscellaneous Information (Pharmacy Glycemic Mgmt Consult) 1 each N/A UD PRN; Protocol PRN Reason: Consult Stop: 08/08/24 15:00 Olanzapine (Olanzapine 10 Mg Tab) 10 mg PO HS [facility] Stop: 08/08/24 21:59 Last Admin: 07/09/24 20:50 Dose: 10 mg Olanzapine (Olanzapine 20 Mg Tablet) 20 mg PO HS [facility] Stop: 08/08/24 21:59 Last Admin: 07/09/24 20:49 Dose: 20 mg Rosuvastatin Calcium (Rosuvastatin Calcium 20 Mg Tab) 40 mg PO DAILY [facility] Stop: 08/09/24 08:59 Sodium Chloride (Sodium Chloride 0.65% Na Soln 45 Ml ([place])) 1 - 2 sprays NA PRN PRN PRN Reason: Nasal Dryness/Congestion Stop: 08/08/24 13:07 Vitamin D (Cholecalciferol 25 Mcg (1000 Units) Tab) 50 mcg PO DAILY [facility] Stop: 08/09/24 08:59
[2024-07-10] MEDS: methIMAzole 5 MG TABLET PO SCH (09:21)
[2024-07-10] MEDS: FERROUS SULFATE 325 MG TAB PO SCH (09:21)
[2024-07-10] MEDS: METOPROLOL SUCC 25MG EXT REL TAB PO SCH (09:22)
[2024-07-10] MEDS: ROSUVASTATIN CALCIUM 20 MG TAB PO SCH (09:22)
[2024-07-10] MEDS: LANTUS PER UNIT CHARGE SC SCH ×2 (10:13→21:27)
--- NOTE | 2024-07-10 12:04 | Pharmacy Report ---
Pharmacy Glycemic Short Note 2 - Date of Service July 10, 2024 - Glycemic Short BSG Results (Last 24 hours): 07/09/24 07/09/24 07/09/24 13:05 17:08 20:21 POC Glucose 137 H 167 H 216 H 07/10/24 08:18 POC Glucose 140 H OUTPATIENT ANTIDIABETIC REGIMEN: * Levemir 140 units daily in AM, Levemir 100 units daily at HS, Victoza 1.8 mg SQ daily, metformin 500 mg bidm, jardiance 25 mg daily ASSESSMENT: * 59 year old admitted to [facility] - type 2 diabetic, pharmacy consulted for glycemic management. Patient on large doses of insulin outpatient, known to glycemic service from other admissions. Typically requires closer to 170 units of basal insulin (30% reduction in outpatient dose), while admitted. Patient received AM Levemir dose yesterday AM IMAGING AIDE and changed to Lantus last evening per our hospital formulary substitution. * Fasting BSG 140 mg/dL this AM - will target basal insulin 140-160 units today. Will continue with current novolog scale. * Patient expressing concerns with transitioning to Lantus insulin. Did discuss with patient the similar properties/side effect profile associated with Levemir/Lantus. I discussed that we do not carry Levemir and our hospital policy is to change patients to Lantus and this is typically a 1:1 conversion. * Patient reports she had been on Lantus once before a few years ago and reports experiencing some vision changes. I was not able to find any documentation noting patient experiencing side effect per DM notes. Last time she received Lantus here in hospital was 2020. We talked about the effects of elevated blood sugars or even low blood sugars may cause someone to have vision changes/blurriness potentially. * Patient agreeable to trial Lantus and will monitor any changes with vision and report to RN. We talked about potentially utilizing U-500 (since we carry this in pharmacy) as possible alternative agent and patient was agreeable to that plan if needed. PLAN FOR INPATIENT GLYCEMIC CONTROL: * Continue metformin 500 mg BIDM * Basal insulin * Lantus 90 units AM * Lantus 70 units HS * Bolus insulin * NovoLog per scale ACHS or Q6hrs while NPO * Goal Range: Low 110 mg/dL - High 140 mg/dL * Correction Factor: 10 mg/dL/unit * Nutritional / Prandial insulin per carb ratio of 1 unit per 3.5 grams CHO consumed
--- NOTE | 2024-07-11 09:06 | Psychiatric Progress Note ---
Date of Service July 11, 2024 Impression / Recommendations Impression AMADO OLSON is a 59-year-old woman who currently lives in [facility], has a history of schizophrenia and depression, and was admitted on 07/09/24 13:08 on a 201 voluntary commitment for SI with plan of overdosing on medication and with AH with increased paranoia. Diagnostically consistent with acute exacerbation of schizophrenia with delusions, paranoia, increased negative thoughts and recent SI with plan prior to admission. Mood improving since arriving to inpatient unit, still with paranoia and delusions but able to reality-test these somewhat. She is not interested in any medication changes, prefers to remain on olanzapine. Discussed risks, benefits and alternatives. Reviewed side effects including but not limited to: above FDA recommended max dose, movement (TD, NMS), cardiac (QTc prolongation), and metabolic (stroke, insulin resistance) and necessity for fasting lipid and glucose labwork and AIMS done with score of 0. Seems she has been adherent with olanzapine per her report but possible she has been skipping some doses due to somatic delusions as she vocalized paranoia about possible side effects to certain insulin formulations today. A: Some mood improvement, ongoing paranoid delusions leading to increased anxiety about eventual transition back to [facility]. EKG without evidence for prolonged QTc, reassuring given high dose of olanzapine. Re-attempt fasting labs tomorrow morning. MNPR-paranoia about others stealing items at night, delusions related to others Overall, I spent a total of 35 minutes on this case including meeting with the patient, reviewing the chart, nursing report, multidisciplinary team meeting, orders, and documentation. (1) Schizophrenia: (2) Suicidal ideation: (3) Paranoia: (4) Delusions: Plan 07/11/2024: Continue current medications and tx plan. 07/10/2024: The patient was admitted to the [facility] ([facility] mental health unit) on q15 min checks (behavioral with suicide precautions) for safety. The patient will participate in group, recreational, and milieu therapies and will be offered additional individual and family sessions as clinically appropriate. -Continue prior to admission medications including * olanzapine 30mg HS -Check EKG to ensure stable QTc given olanzapine is above FDA recommended max dose. -Fasting lipid panel, HbA1c, vit D, vit B12 in the morning Inventory Assets Strengths: supportive relationships, willing to get treatment Needs: safety and stabilization, medication adjustment, additional coping skills, increased outpatient services Suicide Risk Level Suicide Risk Level: Moderate (q15 min suicide checks) (SI with plan prior to admission with increased paranoia and psychosis but feels safe in the hospital, denying SI today, feels able to ask for support if needed) Suicide Risk Level Comments: Risk Factors Assessment Male: No : Yes Do You Have Access To A Gun?: No Health Problems: Yes Mental Health Diagnoses: Yes Substance Use Disorders: No Previous Attempt: Yes Family History of Suicide: No Previous Psychiatric Hospitalization: Yes Hopelessness: No Protective Factors Assessment Worship Beliefs: Yes Employed: No Stable Relationships: Yes Supportive Family: Yes Good Rapport with Provider: Yes Interval History Identifying Information AMADO OLSON is a 59-year-old woman who currently lives in [facility] personal senior living, has a history of schizophrenia and depression, and was admitted on 07/09/24 13:08 on a 201 voluntary commitment for SI with plan of overdosing on medication and with AH with increased paranoia. Chief Complaint "A little tired". Review of Systems Sleep Information Total Hours of Sleep: 6.5 Meal Information Percent Meal Consumed - Breakfast: 25 Percent Meal Consumed - Lunch: 100 Percent Meal Consumed - Dinner: 100 Subjective Subjective Patient was seen & assessed and interval progress reviewed with treatment team nursing and social work. Delusions about her insulin but did agree to use this after meeting with the glycemic pharmacist. Attending groups. Showering, eating well. Ate before fasting labs could be drawn. Today she reports feeling "a little tired". She continues to have the sense that people are taking things from her room at [facility] and "I feel frightened" by it. Reviewed possible strategies to cope with this such as trial of using a n ightlife or sound machine which she likes the idea of. She may try one of the unit sound machines [email or web address] to see if she likes this. Continues to find her olanzapine helpful and doesn't want to make any psychiatric medication changes. Physical Exam Psychiatric Orientation: alert and oriented x 3 Apperance: appropriately dressed and appropriately groomed Eye Contact: good eye contact Motor Behavior: no abnormal motor movements Speech: normal rate/rhythm/volume of speech Affect: + anxious affect and + constricted affect Mood: + depressed mood and + anxious mood Thought Process: + concrete thought process Thought Content: + paranoid and + delusions Suicidal Thoughts: denies suicidal thoughts, denies suicidal plan and denies suicidal intent Homicidal Thoughts: denies homicidal thoughts Hallucinations: no auditory hallucinations and no visual hallucinations Cognition: recent memory grossly intact, remote memory grossly intact, attention grossly intact and language grossly intact Estimated Intelligence: consistent with education level Insight: + fair insight Judgment: + limited judgement Vital Signs (Past 24 Hours) Last Vital Signs Temp 36.5 C 07/11/24 06:00 Pulse 77 07/11/24 06:27 Resp 16 07/11/24 06:00 BP 151/87 H 07/11/24 06:27 Pulse Ox 99 07/09/24 13:38 O2 Del Method Room Air 07/09/24 13:38 Results & Data ([facility]) Laboratory Results Laboratory Results - last 24 hr 07/10/24 07/10/24 07/10/24 12:25 16:52 21:20 POC Glucose 126 H 126 H 152 H 07/11/24 08:34 POC Glucose 103 H Current Inpatient Medications Current Inpatient Medications: Current Inpatient Medications Acetaminophen (Acetaminophen 325 Mg Tab) 650 mg PO Q4H PRN PRN Reason: Headache or Minor Fever Stop: 08/08/24 13:07 Al Hydrox/Mg Hydrox/Simethicone (Aluminum/Magnesium Susp 30 Ml Udc) 30 ml PO Q4H PRN PRN Reason: GI Upset Stop: 08/08/24 13:07 Amlodipine Besylate (Amlodipine Besylate 5 Mg Tab) 10 mg PO DAILY [facility] Stop: 08/09/24 08:59 Last Admin: 07/11/24 09:04 Dose: 5 mg Bismuth Subsalicylate (Bismuth Subsalicylate 262 Mg Chew) 2 tab PO Q30M PRN PRN Reason: Loose Stool/Diarrhea Stop: 08/08/24 13:07 Cyanocobalamin (Cyanocobalamin (B-12) 500 Mcg Tablet) 1,000 mcg PO QAM [facility] Stop: 08/09/24 08:59 Last Admin: 07/11/24 08:52 Dose: 1,000 mcg Fenofibrate (Fenofibrate Nanocrystallized 145 Mg Tablet) 145 mg PO QAM [facility] Stop: 08/09/24 08:59 Last Admin: 07/11/24 08:54 Dose: 145 mg Ferrous Sulfate (Ferrous Sulfate 325 Mg Tab) 325 mg PO Q2D@0900 [facility] Stop: 08/09/24 08:59 Last Admin: 07/10/24 09:21 Dose: 325 mg Hydroxyzine HCl (Hydroxyzine Hcl 25 Mg Tab) 50 mg PO HSZ PRN PRN Reason: Insomnia Stop: 08/08/24 13:07 Hydroxyzine HCl (Hydroxyzine Hcl 25 Mg Tab) 25 mg PO Q4H PRN PRN Reason: Anxiety Stop: 08/08/24 13:07 Insulin Aspart (Insulin Aspart Per Unit Charge) 0 units SC ACHS [facility] Stop: 08/08/24 17:14 Last Admin: 07/10/24 21:27 Dose: 21 units Insulin Glargine (Lantus Per Unit Charge) 80 units SC DAILY [facility] Stop: 08/10/24 08:59 Insulin Glargine (Lantus Per Unit Charge) 60 units SC HS [facility] Stop: 08/10/24 21:59 Lisinopril (Lisinopril 40 Mg Tab) 40 mg PO BID [facility] Stop: 08/08/24 20:59 Last Admin: 07/11/24 08:51 Dose: 40 mg Magnesium Hydroxide (Magnesium Hydroxide Susp 30 Ml Udc) 30 ml PO DAILY PRN PRN Reason: Constipation Stop: 08/08/24 13:07 Metformin HCl (Metformin Hcl Er 500 Mg Tabcr) 500 mg PO BIDM [facility] Stop: 08/08/24 17:44 Last Admin: 07/11/24 08:55 Dose: 500 mg Methimazole (Methimazole 5 Mg Tablet) 10 mg PO QAM [facility] Stop: 08/09/24 08:59 Last Admin: 07/11/24 09:01 Dose: 10 mg Metoprolol Succinate (Metoprolol Succ 25mg Ext Rel Tab) 25 mg PO DAILY [facility] Stop: 08/09/24 08:59 Last Admin: 07/11/24 08:56 Dose: 25 mg Miscellaneous Information (Pharmacy Glycemic Mgmt Consult) 1 each N/A UD PRN; Protocol PRN Reason: Consult Stop: 08/08/24 15:00 Olanzapine (Olanzapine 10 Mg Tab) 10 mg PO HS [facility] Stop: 08/08/24 21:59 Last Admin: 07/10/24 21:07 Dose: 10 mg Olanzapine (Olanzapine 20 Mg Tablet) 20 mg PO HS [facility] Stop: 08/08/24 21:59 Last Admin: 07/10/24 21:07 Dose: 20 mg Rosuvastatin Calcium (Rosuvastatin Calcium 20 Mg Tab) 40 mg PO DAILY [facility] Stop: 08/09/24 08:59 Last Admin: 07/11/24 09:02 Dose: 20 mg Sodium Chloride (Sodium Chloride 0.65% Na Soln 45 Ml ([place])) 1 - 2 sprays NA PRN PRN PRN Reason: Nasal Dryness/Congestion Stop: 08/08/24 13:07 Vitamin D (Cholecalciferol 25 Mcg (1000 Units) Tab) 50 mcg PO DAILY [facility] Stop: 08/09/24 08:59 Last Admin: 07/11/24 08:54 Dose: 50 mcg Mental Health & Subst Abuse Tx Psychiatrist Name of Psychiatrist: Lulu Ragsdale Psychiatrist's Date Of Appointment With Psychiatric Provider: 07/23/2024 Time of Appointment with Psychiatrist: 9:40AM Therapist Name of Therapist: Elkin Ragsdale Therapist's Date of Therapist Appointment: 07/22/24 Time of Therapist Appointment: 2PM Psychology Teacher Name of Psychology Teacher: Adalberto Matos Post Discharge Appointments Primary Care Physician Name Of Family Doctor/PCP: Dr. Sauer (1) Schizophrenia Schizophrenia type: paranoid schizophrenia Qualified Code(s): F20.0 - Paranoid schizophrenia
[2024-07-11] MEDS: LANTUS PER UNIT CHARGE SC SCH ×2 (10:12→21:17)
--- NOTE | 2024-07-11 14:55 | Pharmacy Report ---
Pharmacy Glycemic Short Note 2 - Date of Service July 11, 2024 - Glycemic Short BSG Results (Last 24 hours): 07/10/24 07/10/24 07/11/24 16:52 21:20 08:34 POC Glucose 126 H 152 H 103 H 07/11/24 12:14 POC Glucose 95 OUTPATIENT ANTIDIABETIC REGIMEN: * Levemir 140 units daily in AM, Levemir 100 units daily at HS, Victoza 1.8 mg SQ daily, metformin 500 mg bidm, jardiance 25 mg daily ASSESSMENT: 07/11 * Patient received total of 239 units of insulin yesterday, of which 160 units were basal insulin * Fasting BSG 103 mg/dL - lower side of goal, will scale back on basal today ~10-20% * Lunch BSG 95 mg/dL - excellent control, however again on lower side of goal range and trending down therefore will loosen novolog parameters 07/10 * 59 year old admitted to [facility] - type 2 diabetic, pharmacy consulted for glycemic management. Patient on large doses of insulin outpatient, known to glycemic service from other admissions. Typically requires closer to 170 units of basal insulin (30% reduction in outpatient dose), while admitted. Patient received AM Levemir dose yesterday [employer] and changed to Lantus last evening per our hospital formulary substitution. * Fasting BSG 140 mg/dL this AM - will target basal insulin 140-160 units today. Will continue with current novolog scale. * Patient expressing concerns with transitioning to Lantus insulin. Did discuss with patient the similar properties/side effect profile associated with Levemir/Lantus. I discussed that we do not carry Levemir and our hospital policy is to change patients to Lantus and this is typically a 1:1 conversion. * Patient reports she had been on Lantus once before a few years ago and reports experiencing some vision changes. I was not able to find any documentation noting patient experiencing side effect per DM notes. Last time she received Lantus here in hospital was 2020. We talked about the effects of elevated blood sugars or even low blood sugars may cause someone to have vision changes /blurriness potentially. * Patient agreeable to trial Lantus and will monitor any changes with vision and report to RN. We talked about potentially utilizing U-500 (since we carry this in pharmacy) as possible alternative agent and patient was agreeable to that plan if needed. PLAN FOR INPATIENT GLYCEMIC CONTROL: * Continue metformin 500 mg BIDM * Basal insulin * Lantus 80 units AM * Lantus 50-60 units HS * Bolus insulin * NovoLog per scale ACHS or Q6hrs while NPO * Goal Range: Low 110 mg/dL - High 140 mg/dL * Correction Factor: 15 mg/dL/unit * Nutritional / Prandial insulin per carb ratio of 1 unit per 4.5 grams CHO consumed
[2024-07-11] MEDS ORDERED: LANTUS PER UNIT CHARGE SC SCH (22:00)
[2024-07-12 06:13] VITALS: O2SAT 97
--- NOTE | 2024-07-12 09:12 | Psychiatric Progress Note ---
Date of Service July 12, 2024 Impression / Recommendations Impression SANJUANITA OLSON is a 59-year-old woman who currently lives in [facility], has a history of schizophrenia and depression, and was admitted on 07/09/24 13:08 on a 201 voluntary commitment for SI with plan of overdosing on medication and with AH with increased paranoia. Diagnostically consistent with acute exacerbation of schizophrenia with delusions, paranoia, increased negative thoughts and recent SI with plan prior to admission. Mood improving since arriving to inpatient unit, still with paranoia and delusions but able to reality-test these somewhat. She is not interested in any medication changes, prefers to remain on olanzapine. Discussed risks, benefits and alternatives. Reviewed side effects including but not limited to: above FDA recommended max dose, movement (TD, NMS), cardiac (QTc prolongation), and metabolic (stroke, insulin resistance) and necessity for fasting lipid and glucose labwork and AIMS done with score of 0. Seems she has been adherent with olanzapine per her report but possible she has been skipping some doses due to somatic delusions as she vocalized paranoia about possible side effects to certain insulin formulations today. A: Mood improving, future-oriented without SI and less evidence for paranoia nor delusions today. Engaging more with peers and attending groups. Reviewed labwork, notable for elevated HbA1c, counseled Sanjuanita on importance of accepting insulin to reduce consequences of worsening diabetes. Elevated B12 so discontinued po B12, Vit D normal. Elevated TGs but less so than in the past. Elevated total cholesterol, on Crestor. Given severity of her psychiatric symptoms and stabilization with olanzapine and her willing to take this, reviewed risks/benefits in terms of metabolic side effects with Sanjuanita, she prefers to remain on olanzapine despite labwork results. MNPR-paranoia about others stealing items at night, delusions related to others intermittently Overall, I spent a total of 35 minutes on this case including meeting with the patient, reviewing the chart, nursing report, multidisciplinary team meeting, orders, and documentation. (1) Schizophrenia: (2) Suicidal ideation: (3) Paranoia: (4) Delusions: Plan 07/12/2024: Discontinue B12 supplement 07/11/2024: Continue current medications and tx plan. 07/10/2024: The patient was admitted to the [facility] (locked inpatient mental health unit) on q15 min checks (behavioral with suicide precautions) for safety. The patient will participate in group, recreational, and milieu therapies and will be offered additional individual and family sessions as clinically appropriate. -Continue prior to admission medications including * olanzapine 30mg HS -Check EKG to ensure stable QTc given olanzapine is above FDA recommended max dose. -Fasting lipid panel, HbA1c, vit D, vit B12 in the morning Inventory Assets Strengths: supportive relationships, willing to get treatment Needs: safety and stabilization, medication adjustment, additional coping skills, increased outpatient services Suicide Risk Level Suicide Risk Level: Low (q15 min observation checks) (SI with plan prior to admission with increased paranoia and psychosis but mood improving, denying SI, psychosis lessening, feels safe in the hospital,feels able to ask for support if needed) Suicide Risk Level Comments: Risk Factors Assessment Male: No : Yes Do You Have Access To A Gun?: No Health Problems: Yes Mental Health Diagnoses: Yes Substance Use Disorders: No Previous Attempt: Yes Family History of Suicide: No Previous Psychiatric Hospitalization: Yes Hopelessness: No Protective Factors Assessment Mandaeism Beliefs: Yes Employed: No Stable Relationships: Yes Supportive Family: Yes Good Rapport with Provider: Yes Interval History Identifying Information SANJUANITA OLSON is a 59-year-old woman who currently lives in [facility], has a history of schizophrenia and depression, and was admitted on 07/09/24 13:08 on a 201 voluntary commitment for SI with plan of overdosing on medication and with AH with increased paranoia. Chief Complaint "Ok, not too bad". Review of Systems Sleep Information Total Hours of Sleep: 7 Sleep Comments: HS Zyprexa Meal Information Percent Meal Consumed - Breakfast: 100 Percent Meal Consumed - Lunch: 30 Percent Meal Consumed - Dinner: 100 Subjective Subjective Patient was seen & assessed and interval progress reviewed. More isolative to her room yesterday, observed responding to possible internal stimuli by staff yesterday afternoon. But then did watch a movie with peers last evening. Slept well overnight though reports she felt at one point like she was being "strangled" which she attributes to the lantus insulin formulation in the hospit al causing breathing side effects. Denies any breathing issues, SOB nor chest pain or palpitations today. Today has been engaging with peers, attending groups. Reports her mood is improving. Denies SI. She continues to feel her psychiatric medication is beneficial and adequate and doesn't desire adjustments or further medications. Feels she'll be ready to discharge tomorrow, wants to make plans to see her mother. Physical Exam Psychiatric Orientation: alert and oriented x 3 Apperance: appropriately dressed and appropriately groomed Eye Contact: good eye contact Motor Behavior: no abnormal motor movements Speech: normal rate/rhythm/volume of speech Affect: + constricted affect Mood: + anxious mood; no depressed mood Thought Process: goal directed thought process Thought Content: + delusions (somatic, related to medication side effects) Suicidal Thoughts: denies suicidal thoughts, denies suicidal plan and denies suicidal intent Homicidal Thoughts: denies homicidal thoughts Hallucinations: no auditory hallucinations and no visual hallucinations Cognition: recent memory grossly intact, remote memory grossly intact, attention grossly intact and language grossly intact Estimated Intelligence: consistent with education level Insight: + fair insight Judgment: + limited judgement Vital Signs (Past 24 Hours) Last Vital Signs Temp 36.1 C L 07/12/24 06:10 Pulse 71 07/12/24 06:12 Resp 16 07/12/24 06:10 BP 164/92 H 07/12/24 06:12 Pulse Ox 97 07/12/24 06:10 O2 Del Method Room Air 07/12/24 06:10 Results & Data ([facility]) Laboratory Results Laboratory Results - last 24 hr 07/11/24 07/11/24 07/11/24 12:14 17:12 20:24 POC Glucose 95 160 H 189 H Estimat Average Glucose Hemoglobin A1c Triglycerides Cholesterol VLDL Cholesterol, Calc HDL Cholesterol Cholesterol/HDL Ratio Vitamin B12 25-OH Vitamin D Total 07/12/24 07/12/24 06:23 08:47 POC Glucose 113 H Estimat Average Glucose Pending Hemoglobin A1c Pending Triglycerides Pending Cholesterol Pending VLDL Cholesterol, Calc Pending HDL Cholesterol Pending Cholesterol/HDL Ratio Pending Vitamin B12 Pending 25-OH Vitamin D Total Pending Current Inpatient Medications Current Inpatient Medications: Current Inpatient Medications Acetaminophen (Acetaminophen 325 Mg Tab) 650 mg PO Q4H PRN PRN Reason: Headache or Minor Fever Stop: 08/08/24 13:07 Al Hydrox/Mg Hydrox/Simethicone (Aluminum/Magnesium Susp 30 Ml Udc) 30 ml PO Q4H PRN PRN Reason: GI Upset Stop: 08/08/24 13:07 Amlodipine Besylate (Amlodipine Besylate 5 Mg Tab) 10 mg PO DAILY [facility] Stop: 08/09/24 08:59 Last Admin: 07/11/24 09:04 Dose: 5 mg Bismuth Subsalicylate (Bismuth Subsalicylate 262 Mg Chew) 2 tab PO Q30M PRN PRN Reason: Loose Stool/Diarrhea Stop: 08/08/24 13:07 Cyanocobalamin (Cyanocobalamin (B-12) 500 Mcg Tablet) 1,000 mcg PO QAM [facility] Stop: 08/09/24 08:59 Last Admin: 07/11/24 08:52 Dose: 1,000 mcg Fenofibrate (Fenofibrate Nanocrystallized 145 Mg Tablet) 145 mg PO QAM [facility] Stop: 08/09/24 08:59 Last Admin: 07/11/24 08:54 Dose: 145 mg Ferrous Sulfate (Ferrous Sulfate 325 Mg Tab) 325 mg PO Q2D@0900 [facility] Stop: 08/09/24 08:59 Last Admin: 07/10/24 09:21 Dose: 325 mg Hydroxyzine HCl (Hydroxyzine Hcl 25 Mg Tab) 50 mg PO HSZ PRN PRN Reason: Insomnia Stop: 08/08/24 13:07 Hydroxyzine HCl (Hydroxyzine Hcl 25 Mg Tab) 25 mg PO Q4H PRN PRN Reason: Anxiety Stop: 08/08/24 13:07 Insulin Aspart (Insulin Aspart Per Unit Charge) 0 units SC [facility] Stop: 08/08/24 17:14 Last Admin: 07/11/24 21:17 Dose: 11 units Insulin Glargine (Lantus Per Unit Charge) 80 units SC DAILY [facility] Stop: 08/10/24 08:59 Last Admin: 07/11/24 10:12 Dose: 80 units Insulin Glargine (Lantus Per Unit Charge) 0 units SC HS [facility]; Protocol Stop: 08/10/24 21:59 Last Admin: 07/11/24 21:17 Dose: 60 units Lisinopril (Lisinopril 40 Mg Tab) 40 mg PO BID [facility] Stop: 08/08/24 20:59 Last Admin: 07/11/24 21:15 Dose: 40 mg Magnesium Hydroxide (Magnesium Hydroxide Susp 30 Ml Udc) 30 ml PO DAILY PRN PRN Reason: Constipation Stop: 08/08/24 13:07 Metformin HCl (Metformin Hcl Er 500 Mg Tabcr) 500 mg PO BIDM [facility] Stop: 08/08/24 17:44 Last Admin: 07/11/24 17:45 Dose: 500 mg Methimazole (Methimazole 5 Mg Tablet) 10 mg PO QAM [facility] Stop: 08/09/24 08:59 Last Admin: 07/11/24 09:01 Dose: 10 mg Metoprolol Succinate (Metoprolol Succ 25mg Ext Rel Tab) 25 mg PO DAILY [facility] Stop: 08/09/24 08:59 Last Admin: 07/11/24 08:56 Dose: 25 mg Miscellaneous Information (Pharmacy Glycemic Mgmt Consult) 1 each N/A UD PRN; Protocol PRN Reason: Consult Stop: 08/08/24 15:00 Olanzapine (Olanzapine 10 Mg Tab) 10 mg PO HS [facility] Stop: 08/08/24 21:59 Last Admin: 07/11/24 21:15 Dose: 10 mg Olanzapine (Olanzapine 20 Mg Tablet) 20 mg PO HS [facility] Stop: 08/08/24 21:59 Last Admin: 07/11/24 21:16 Dose: 20 mg Rosuvastatin Calcium (Rosuvastatin Calcium 20 Mg Tab) 40 mg PO DAILY [facility] Stop: 08/09/24 08:59 Last Admin: 07/11/24 09:02 Dose: 20 mg Sodium Chloride (Sodium Chloride 0.65% Na Soln 45 Ml ([place])) 1 - 2 sprays NA PRN PRN PRN Reason: Nasal Dryness/Congestion Stop: 08/08/24 13:07 Vitamin D (Cholecalciferol 25 Mcg (1000 Units) Tab) 50 mcg PO DAILY [facility] Stop: 08/09/24 08:59 Last Admin: 07/11/24 08:54 Dose: 50 mcg Mental Health & Subst Abuse Tx Psychiatrist Name of Psychiatrist: Lulu Ragsdale Psychiatrist's Date Of Appointment With Psychiatric Provider: 07/23/2024 Time of Appointment with Psychiatrist: 9:40AM Therapist Name of Therapist: Elkin Ragsdale Therapist's Date of Therapist Appointment: 07/22/24 Time of Therapist Appointment: 2PM Lease Analyst Name of Lease Analyst: Adalberto Matos Post Discharge Appointments Primary Care Physician Name Of Family Doctor/PCP: Dr. Sauer (1) Schizophrenia Schizophrenia type: paranoid schizophrenia Qualified Code(s): F20.0 - Paranoid schizophrenia
[2024-07-12 09:20] LABS: Cholesterol 209 mg/dl (0-200); HDL Cholesterol 35 mg/dl; Triglycerides 435 mg/dl (0-150)
[2024-07-12 10:00] LABS: Estimated Average Glucose 223 mg/dl; Hemoglobin A1C 9.4 % (4.5-5.6)
--- NOTE | 2024-07-12 14:21 | Pharmacy Report ---
Pharmacy Glycemic Short Note 2 - Date of Service July 12, 2024 - Glycemic Short BSG Results (Last 24 hours): 07/11/24 07/11/24 07/12/24 17:12 20:24 06:23 POC Glucose 160 H 189 H 113 H 07/12/24 11:57 POC Glucose 197 H OUTPATIENT ANTIDIABETIC REGIMEN: * Levemir 140 units daily in AM, Levemir 100 units daily at HS, Victoza 1.8 mg SQ daily, metformin 500 mg bidm, jardiance 25 mg daily ASSESSMENT: 07/12 * Patient received total of 196 units of insulin yesterday, of which 140 units were basal * Patient refusing Lantus this AM - Patient has concerns with Lantus causing shortness of breath, RN reports provider will have discussion with her today about insulin. Patient agreeable to evening dose of Lantus. Will increase slightly to 80 units tonight. 07/11 * Patient received total of 239 units of insulin yesterday, of which 160 units were basal insulin * Fasting BSG 103 mg/dL - lower side of goal, will scale back on basal today ~10-20% * Lunch BSG 95 mg/dL - excellent control, however again on lower side of goal range and trending down therefore will loosen novolog parameters 07/10 * 59 year old admitted to [facility] - type 2 diabetic, pharmacy consulted for glycemic management. Patient on large doses of insulin outpatient, known to glycemic service from other admissions. Typically requires closer to 170 units of basal insulin (30% reduction in outpatient dose), while admitted. Patient received AM Levemir dose yesterday AM [employer] and changed to Lantus last evening per our hospital formulary substitution. * Fasting BSG 140 mg/dL this AM - will target basal insulin 140-160 units today. Will continue with current novolog scale. * Patient expressing concerns with transitioning to Lantus insulin. Did discuss with patient the similar properties/side effect profile associated with Levemir/Lantus. I discussed that we do not carry Levemir and our hospital policy is to change patients to Lantus and this is typically a 1:1 conversion. * Patient reports she had been on Lantus once before a few years ago and reports experiencing some vision changes. I was not able to find any documentation noting patient experiencing side effect per DM notes. Last time she received Lantus here in hospital was 2020. We talked about the effects of elevated blood sugars or even low blood sugars may cause someone to have vision changes/blurriness potentially. * Patient agreeable to trial Lantus and will monitor any changes with vision and report to RN. We talked about potentially utilizing U-500 (since we carry this in pharmacy) as possible alternative agent and patient was agreeable to that plan if needed. PLAN FOR INPATIENT GLYCEMIC CONTROL: * Continue metformin 500 mg BIDM * Basal insulin * Lantus - refused 07/12 AM * Lantus 80 units HS - will reassess 07/13 to reorder Lantus * Bolus insulin * NovoLog per scale ACHS or Q6hrs while NPO * Goal Range: Low 110 mg/dL - High 140 mg/dL * Correction Factor: 15 mg/dL/unit * Nutritional / Prandial insulin per carb ratio of 1 unit per 4.5 grams CHO consumed
[2024-07-12] MEDS: LANTUS PER UNIT CHARGE SC SCH (21:20)
[2024-07-13 06:49] VITALS: BP 151/75; TEMP 97.5
[2024-07-13] MEDS: LANTUS PER UNIT CHARGE SC SCH (09:23)
--- NOTE | 2024-07-13 10:00 | Discharge Summary ---
Date of Service July 13, 2024 History of Present Illness Sanjuanita presents for psychiatric evaluation due to worsening delusions and paranoia of someone breaking in and stealing belongings, despite acknowledging these thoughts are likely delusions. She is frightened by these delusions but denies any actual missing items in the morning. No recent stressors identified as contributing to increased delusions, though she notes this is a typical time of year for such occurrences and that hospitalization usually helps her feel safer once she returns to [facility]. She denies current suicidal ideation and auditory hallucinations but acknowledges SI prior to admission. She feels her paranoia diminishes in group settings and she's looking forward to participating in the groups, references that she always feels safe and well cared for on [facility]. Reflects: "I don't know what it is but it happens every year and then I go into hospital and it gets better". She notes "I feel paranoid and it catches up to me". She thinks positive imagery and going to y[facility]ani might help. Explains "Sometimes I feel paranoia that the whole world is against me, and that my family hates me but my therapist helps me feel more hopeful". She recognizes delusions and paranoid thoughts as spiritual experiences or due to past sexual problems she has healed through mormonism. Expresses concern about insulin medication and fear of "going blind or crazy." She reports a history of untreated illness and sexual problems, which she believes have improved since attending [facility]. States feeling "200% better" after proper treatment via [facility] for this. Currently working with a therapist and feels this has also helped her hopefulness and to combat negative thoughts. Psychiatric ROS notable for nighttime delusions, paranoia, and feelings of bodily/property violation. No current suicidal ideation or auditory hallucinations. Physical Exam Mental Examination Appearance: Well Groomed Eye Contact: Maintains Eye Contact Motor Behavior: Unremarkable Speech: Normal and Soft Mood: Depressed and Anxious Affect: Anxious, Congruent and Flat Thought Process: Intact and Goal Oriented Insight: Fair Judgement: Fair Vital Signs (Past 24 Hours) Last Vital Signs Temp 36.4 C L 07/13/24 06:48 Pulse 76 07/13/24 06:48 Resp 16 07/13/24 06:48 BP 151/75 H 07/13/24 06:48 Pulse Ox 97 07/12/24 06:10 O2 Del Method Room Air 07/12/24 06:10 Principal Diagnosis Schizophrenia Psychiatric Data See daily stay summary. In short, safety was maintained and the patient was cooperative with care. No medication changes. A family session was refused and safety plan was completed prior to discharge. Patient's suicidal ideation quickly resolved and she was future oriented. Reports past episodes of SI when distressed and resolve quickly in the hospital. Presented a stable mental statues with a linear thought process, no overt psychosis, and good functioning on the unit. Day of Discharge Assessment Today the patient voices readiness for discharge. They note improvement in mood and deny thoughts to harm self or others. Thoughts remain organized and they are improved from admission. Patient is at baseline level of psychosis with no acute worsening. They agree to take mediations as prescribed and keep follow-up appointments. They are stable for discharge to outpatient level of care. Transition of Care Transition Of Care Record: was reviewed with the patient Advance Directives Advance Directives Information Provided: Yes Advance Directives: No Mental Health Advance Directive: No Advance Directives on File: No Living Will: No Power of Precast Con[employer] Ironworker: No Advance Directives Reason:: Declines as Mental Health Visit. Suicide Risk Level Suicide Risk Level Comments: Risk Factors Assessment Male: No : Yes Do You Have Access To A Gun?: No Health Problems: Yes Mental Health Diagnoses: Yes Substance Use Disorders: No Previous Attempt: Yes Family History of Suicide: No Previous Psychiatric Hospitalization: Yes Hopelessness: No Protective Factors Assessment Gnosticist Beliefs: Yes Employed: No Stable Relationships: Yes Supportive Family: Yes Good Rapport with Provider: Yes Discharge Data Lab Results 07/09/24 07/09/24 07/09/24 10:22 12:22 13:05 WBC 11.26 H RBC 5.89 H Hgb 15.5 Hct 46.3 MCV 78.6 L MCH 26.3 MCHC 33.5 RDW Std Deviation 39.0 RDW Coeff of Abel 13.9 Plt Count 359 MPV 8.3 L Immature Gran % (Auto) 0.3 Neut % (Auto) 65.9 Lymph % (Auto) 25.0 [place] % (Auto) 6.0 Eos % (Auto) 2.1 Baso % (Auto) 0.7 Neut # (Auto) 7.43 H Lymph # (Auto) 2.81 [place] # (Auto) 0.67 H Eos # (Auto) 0.24 Baso # (Auto) 0.08 Immature Gran # (Auto) 0.03 Sodium 141 Potassium 4.0 Chloride 107 Carbon Dioxide 21 Anion Gap 13 H BUN 11 Creatinine 0.70 Est Cr Clr Drug Dosing 91.0 eGFR 99.57 BUN/Creatinine Ratio 15.7 Glucose 239 H POC Glucose 137 H Estimat Average Glucose Hemoglobin A1c Calcium 10.0 Total Bilirubin 0.5 AST 29 ALT 31 Alkaline Phosphatase 117 H Total Protein 7.2 Albumin 4.7 Globulin 2.5 Albumin/Globulin Ratio 1.9 Triglycerides Cholesterol LDL Cholesterol, Calc VLDL Cholesterol, Calc HDL Cholesterol Cholesterol/HDL Ratio Vitamin B12 25-OH Vitamin D Total TSH 0.609 Urine Color Yellow Yellow Urine Appearance Cloudy A Clear Urine pH 5.5 7.0 Ur Specific [place] 1.042 H 1.044 H Urine Protein Negative Negative Urine Glucose (UA) 3+ H 3+ H Urine Ketones Negative Negative Urine Blood Negative Negative Urine Nitrite Negative Negative Urine Bilirubin Negative Negative Urine Urobilinogen Negative Negative Ur Leukocyte Esterase 1+ H Negative Urine WBC (Auto) 21-50 H [employer]IDE [employer]ES Urine RBC (Auto) 0-2 OUTSIDE [employer] SALES U Hyaline Cast (Auto) 3-5 H [employer] U Epithel Cells (Auto) >20 H [employer]SIDE [employer] SALES Urine Bacteria (Auto) 4+ H OUTSIDE [employer] SALES Ur Renal Epithelial Cell OUTSIDE [employer]OR SALES Tillson Biurate Crystals OUTSIDE CONTRACTOR SALES Calcium Oxalate Crystal OUTSIDE CONTRACTOR SALES Leucine Crystals OUTSIDE [employer]OR SALES Cystine Crystals OUTSIDE CONTRACTOR SALES Uric Acid Crystals OUTSIDE CONTRACTOR SALES Triple Phos Crystals OUTSIDE CONTRACTOR SALES Sulfonamide Crystals OUTSIDE CONTRACTOR SALES Cholesterol Crystals OUTSIDE CONTRACTOR SALES Talc Crystals OUTSIDE CONTRACTOR SALES Tyrosine Crystals OUTSIDE CONTRACTOR SALES Hippuric Acid Crystals OUTSIDE CONTRACTOR SALES Unidentified Crystals OUTSIDE [employer]OR SALES Amorphous Sediment OUTSIDE CONTRACTOR SALES Epithelial Casts OUTSIDE [employer]OR SALES Hyaline Casts OUTSIDE CONTRACTOR SALES Granular Casts OUTSIDE CONTRACTOR SALES Waxy Casts OUTSIDE CONTRACTOR SALES RBC Casts OUTSIDE CONTRACTOR SALES WBC Casts OUTSIDE CONTRACTOR SALES Other Casts OUTSIDE CONTRACTOR SALES Urine Mucus OUTSIDE [employer]OR SALES Urine Other OUTSIDE [employer]OR SALES Urine Trichomonas OUTSIDE [employer] SALES Urine Yeast Present A OUTSIDE [employer] SALES Urine Sperm OUTSIDE [employer] SALES Ur Oval Fat Bodies OUTSIDE [employer] SALES Salicylates < 3.0 L Urine Opiates Screen Neg Ur Methadone, Qual Neg Urine Fentanyl Screen Neg Acetaminophen < 3 L Urine Barbiturates Neg Ur Phencyclidine (PCP) Neg U Amphetamin/Meth Scrn Neg MDMA (Ecstasy) Screen Neg U Benzodiazepines Scrn Neg Ur Cocaine Metabolite Neg U Marijuana (THC) Screen Neg Ethyl Alcohol mg/dL < 10.0 SARS-CoV-2, RNA, NAAT NEGATIVE 07/09/24 07/09/24 07/10/24 17:08 20:21 08:18 WBC RBC Hgb Hct MCV MCH MCHC RDW Std Deviation RDW Coeff of Abel Plt Count MPV Immature Gran % (Auto) Neut % (Auto) Lymph % (Auto) [place] % (Auto) Eos % (Auto) Baso % (Auto) Neut # (Auto) Lymph # (Auto) [place] # (Auto) Eos # (Auto) Baso # (Auto) Immature Gran # (Auto) Sodium Potassium Chloride Carbon Dioxide Anion Gap BUN Creatinine Est Cr Clr Drug Dosing eGFR BUN/Creatinine Ratio Glucose POC Glucose 167 H 216 H 140 H Estimat Average Glucose Hemoglobin A1c Calcium Total Bilirubin AST ALT Alkaline Phosphatase Total Protein Albumin Globulin Albumin/Globulin Ratio Triglycerides Cholesterol LDL Cholesterol, Calc VLDL Cholesterol, Calc HDL Cholesterol Cholesterol/HDL Ratio Vitamin B12 25-OH Vitamin D Total TSH Urine Color Urine Appearance Urine pH Ur Specific [place] Urine Protein Urine Glucose (UA) Urine Ketones Urine Blood Urine Nitrite Urine Bilirubin Urine Urobilinogen Ur Leukocyte Esterase Urine WBC (Auto) Urine RBC (Auto) U Hyaline Cast (Auto) U Epithel Cells (Auto) Urine Bacteria (Auto) Ur Renal Epithelial Cell Petar Biurate Crystals Calcium Oxalate Crystal Leucine Crystals Cystine Crystals Uric Acid Crystals Triple Phos Crystals Sulfonamide Crystals Cholesterol Crystals Talc Crystals Tyrosine Crystals Hippuric Acid Crystals Unidentified Crystals Amorphous Sediment Epithelial Casts Hyaline Casts Granular Casts Waxy Casts RBC Casts WBC Casts Other Casts Urine Mucus Urine Other Urine Trichomonas Urine Yeast Urine Sperm Ur Oval Fat Bodies Salicylates Urine Opiates Screen Ur Methadone, Qual Urine Fentanyl Screen Acetaminophen Urine Barbiturates Ur Phencyclidine (PCP) U Amphetamin/Meth Scrn MDMA (Ecstasy) Screen U Benzodiazepines Scrn Ur Cocaine Metabolite U Marijuana (THC) Screen Ethyl Alcohol mg/dL SARS-CoV-2, RNA, NAAT 07/10/24 07/10/24 07/10/24 12:25 16:52 21:20 WBC RBC Hgb Hct MCV MCH MCHC RDW Std Deviation RDW Coeff of Abel Plt Count MPV Immature Gran % (Auto) Neut % (Auto) Lymph % (Auto) [place] % (Auto) Eos % (Auto) Baso % (Auto) Neut # (Auto) Lymph # (Auto) [place] # (Auto) Eos # (Auto) Baso # (Auto) Immature Gran # (Auto) Sodium Potassium Chloride Carbon Dioxide Anion Gap BUN Creatinine Est Cr Clr Drug Dosing eGFR BUN/Creatinine Ratio Glucose POC Glucose 126 H 126 H 152 H Estimat Average Glucose Hemoglobin A1c Calcium Total Bilirubin AST ALT Alkaline Phosphatase Total Protein Albumin Globulin Albumin/Globulin Ratio Triglycerides Cholesterol LDL Cholesterol, Calc VLDL Cholesterol, Calc HDL Cholesterol Cholesterol/HDL Ratio Vitamin B12 25-OH Vitamin D Total TSH Urine Color Urine Appearance Urine pH Ur Specific [place] Urine Protein Urine Glucose (UA) Urine Ketones Urine Blood Urine Nitrite Urine Bilirubin Urine Urobilinogen Ur Leukocyte Esterase Urine WBC (Auto) Urine RBC (Auto) U Hyaline Cast (Auto) U Epithel Cells (Auto) Urine Bacteria (Auto) Ur Renal Epithelial Cell Tillson Biurate Crystals Calcium Oxalate Crystal Leucine Crystals Cystine Crystals Uric Acid Crystals Triple Phos Crystals Sulfonamide Crystals Cholesterol Crystals Talc Crystals Tyrosine Crystals Hippuric Acid Crystals Unidentified Crystals Amorphous Sediment Epithelial Casts Hyaline Casts Granular Casts Waxy Casts RBC Casts WBC Casts Other Casts Urine Mucus Urine Other Urine Trichomonas Urine Yeast Urine Sperm Ur Oval Fat Bodies Salicylates Urine Opiates Screen Ur Methadone, Qual Urine Fentanyl Screen Acetaminophen Urine Barbiturates Ur Phencyclidine (PCP) U Amphetamin/Meth Scrn MDMA (Ecstasy) Screen U Benzodiazepines Scrn Ur Cocaine Metabolite U Marijuana (THC) Screen Ethyl Alcohol mg/dL SARS-CoV-2, RNA, NAAT 07/11/24 07/11/24 07/11/24 08:34 12:14 17:12 WBC RBC Hgb Hct MCV MCH MCHC RDW Std Deviation RDW Coeff of Abel Plt Count MPV Immature Gran % (Auto) Neut % (Auto) Lymph % (Auto) [place] % (Auto) Eos % (Auto) Baso % (Auto) Neut # (Auto) Lymph # (Auto) [place] # (Auto) Eos # (Auto) Baso # (Auto) Immature Gran # (Auto) Sodium Potassium Chloride Carbon Dioxide Anion Gap BUN Creatinine Est Cr Clr Drug Dosing eGFR BUN/Creatinine Ratio Glucose POC Glucose 103 H 95 160 H Estimat Average Glucose Hemoglobin A1c Calcium Total Bilirubin AST ALT Alkaline Phosphatase Total Protein Albumin Globulin Albumin/Globulin Ratio Triglycerides Cholesterol LDL Cholesterol, Calc VLDL Cholesterol, Calc HDL Cholesterol Cholesterol/HDL Ratio Vitamin B12 25-OH Vitamin D Total TSH Urine Color Urine Appearance Urine pH Ur Specific [place] Urine Protein Urine Glucose (UA) Urine Ketones Urine Blood Urine Nitrite Urine Bilirubin Urine Urobilinogen Ur Leukocyte Esterase Urine WBC (Auto) Urine RBC (Auto) U Hyaline Cast (Auto) U Epithel Cells (Auto) Urine Bacteria (Auto) Ur Renal Epithelial Cell Petar Biurate Crystals Calcium Oxalate Crystal Leucine Crystals Cystine Crystals Uric Acid Crystals Triple Phos Crystals Sulfonamide Crystals Cholesterol Crystals Talc Crystals Tyrosine Crystals Hippuric Acid Crystals Unidentified Crystals Amorphous Sediment Epithelial Casts Hyaline Casts Granular Casts Waxy Casts RBC Casts WBC Casts Other Casts Urine Mucus Urine Other Urine Trichomonas Urine Yeast Urine Sperm Ur Oval Fat Bodies Salicylates Urine Opiates Screen Ur Methadone, Qual Urine Fentanyl Screen Acetaminophen Urine Barbiturates Ur Phencyclidine (PCP) U Amphetamin/Meth Scrn MDMA (Ecstasy) Screen U Benzodiazepines Scrn Ur Cocaine Metabolite U Marijuana (THC) Screen Ethyl Alcohol mg/dL SARS-CoV-2, RNA, NAAT 07/11/24 07/12/24 07/12/24 20:24 06:23 08:47 WBC RBC Hgb Hct MCV MCH MCHC RDW Std Deviation RDW Coeff of Abel Plt Count MPV Immature Gran % (Auto) Neut % (Auto) Lymph % (Auto) [place] % (Auto) Eos % (Auto) Baso % (Auto) Neut # (Auto) Lymph # (Auto) [place] # (Auto) Eos # (Auto) Baso # (Auto) Immature Gran # (Auto) Sodium Potassium Chloride Carbon Dioxide Anion Gap BUN Creatinine Est Cr Clr Drug Dosing eGFR BUN/Creatinine Ratio Glucose POC Glucose 189 H 113 H Estimat Average Glucose 223 Hemoglobin A1c 9.4 H Calcium Total Bilirubin AST ALT Alkaline Phosphatase Total Protein Albumin Globulin Albumin/Globulin Ratio Triglycerides 435 H Cholesterol 209 H LDL Cholesterol, Calc TNP VLDL Cholesterol, Calc TNP HDL Cholesterol 35 Cholesterol/HDL Ratio 6.0 H Vitamin B12 1355 H 25-OH Vitamin D Total 37.0 TSH Urine Color Urine Appearance Urine pH Ur Specific [place] Urine Protein Urine Glucose (UA) Urine Ketones Urine Blood Urine Nitrite Urine Bilirubin Urine Urobilinogen Ur Leukocyte Esterase Urine WBC (Auto) Urine RBC (Auto) U Hyaline Cast (Auto) U Epithel Cells (Auto) Urine Bacteria (Auto) Ur Renal Epithelial Cell Tillson Biurate Crystals Calcium Oxalate Crystal Leucine Crystals Cystine Crystals Uric Acid Crystals Triple Phos Crystals Sulfonamide Crystals Cholesterol Crystals Talc Crystals Tyrosine Crystals Hippuric Acid Crystals Unidentified Crystals Amorphous Sediment Epithelial Casts Hyaline Casts Granular Casts Waxy Casts RBC Casts WBC Casts Other Casts Urine Mucus Urine Other Urine Trichomonas Urine Yeast Urine Sperm Ur Oval Fat Bodies Salicylates Urine Opiates Screen Ur Methadone, Qual Urine Fentanyl Screen Acetaminophen Urine Barbiturates Ur Phencyclidine (PCP) U Amphetamin/Meth Scrn MDMA (Ecstasy) Screen U Benzodiazepines Scrn Ur Cocaine Metabolite U Marijuana (THC) Screen Ethyl Alcohol mg/dL SARS-CoV-2, RNA, NAAT 07/12/24 07/12/24 07/12/24 11:57 16:59 20:32 WBC RBC Hgb Hct MCV MCH MCHC RDW Std Deviation RDW Coeff of Abel Plt Count MPV Immature Gran % (Auto) Neut % (Auto) Lymph % (Auto) [place] % (Auto) Eos % (Auto) Baso % (Auto) Neut # (Auto) Lymph # (Auto) [place] # (Auto) Eos # (Auto) Baso # (Auto) Immature Gran # (Auto) Sodium Potassium Chloride Carbon Dioxide Anion Gap BUN Creatinine Est Cr Clr Drug Dosing eGFR BUN/Creatinine Ratio Glucose POC Glucose 197 H 161 H 256 H Estimat Average Glucose Hemoglobin A1c Calcium Total Bilirubin AST ALT Alkaline Phosphatase Total Protein Albumin Globulin Albumin/Globulin Ratio Triglycerides Cholesterol LDL Cholesterol, Calc VLDL Cholesterol, Calc HDL Cholesterol Cholesterol/HDL Ratio Vitamin B12 25-OH Vitamin D Total TSH Urine Color Urine Appearance Urine pH Ur Specific [place] Urine Protein Urine Glucose (UA) Urine Ketones Urine Blood Urine Nitrite Urine Bilirubin Urine Urobilinogen Ur Leukocyte Esterase Urine WBC (Auto) Urine RBC (Auto) U Hyaline Cast (Auto) U Epithel Cells (Auto) Urine Bacteria (Auto) Ur Renal Epithelial Cell Tillson Biurate Crystals Calcium Oxalate Crystal Leucine Crystals Cystine Crystals Uric Acid Crystals Triple Phos Crystals Sulfonamide Crystals Cholesterol Crystals Talc Crystals Tyrosine Crystals Hippuric Acid Crystals Unidentified Crystals Amorphous Sediment Epithelial Casts Hyaline Casts Granular Casts Waxy Casts RBC Casts WBC Casts Other Casts Urine Mucus Urine Other Urine Trichomonas Urine Yeast Urine Sperm Ur Oval Fat Bodies Salicylates Urine Opiates Screen Ur Methadone, Qual Urine Fentanyl Screen Acetaminophen Urine Barbiturates Ur Phencyclidine (PCP) U Amphetamin/Meth Scrn MDMA (Ecstasy) Screen U Benzodiazepines Scrn Ur Cocaine Metabolite U Marijuana (THC) Screen Ethyl Alcohol mg/dL SARS-CoV-2, RNA, NAAT 07/13/24 08:28 WBC RBC Hgb Hct MCV MCH MCHC RDW Std Deviation RDW Coeff of Abel Plt Count MPV Immature Gran % (Auto) Neut % (Auto) Lymph % (Auto) [place] % (Auto) Eos % (Auto) Baso % (Auto) Neut # (Auto) Lymph # (Auto) [place] # (Auto) Eos # (Auto) Baso # (Auto) Immature Gran # (Auto) Sodium Potassium Chloride Carbon Dioxide Anion Gap BUN Creatinine Est Cr Clr Drug Dosing eGFR BUN/Creatinine Ratio Glucose POC Glucose 142 H Estimat Average Glucose Hemoglobin A1c Calcium Total Bilirubin AST ALT Alkaline Phosphatase Total Protein Albumin Globulin Albumin/Globulin Ratio Triglycerides Cholesterol LDL Cholesterol, Calc VLDL Cholesterol, Calc HDL Cholesterol Cholesterol/HDL Ratio Vitamin B12 25-OH Vitamin D Total TSH Urine Color Urine Appearance Urine pH Ur Specific [place] Urine Protein Urine Glucose (UA) Urine Ketones Urine Blood Urine Nitrite Urine Bilirubin Urine Urobilinogen Ur Leukocyte Esterase Urine WBC (Auto) Urine RBC (Auto) U Hyaline Cast (Auto) U Epithel Cells (Auto) Urine Bacteria (Auto) Ur Renal Epithelial Cell Petar Biurate Crystals Calcium Oxalate Crystal Leucine Crystals Cystine Crystals Uric Acid Crystals Triple Phos Crystals Sulfonamide Crystals Cholesterol Crystals Talc Crystals Tyrosine Crystals Hippuric Acid Crystals Unidentified Crystals Amorphous Sediment Epithelial Casts Hyaline Casts Granular Casts Waxy Casts RBC Casts WBC Casts Other Casts Urine Mucus Urine Other Urine Trichomonas Urine Yeast Urine Sperm Ur Oval Fat Bodies Salicylates Urine Opiates Screen Ur Methadone, Qual Urine Fentanyl Screen Acetaminophen Urine Barbiturates Ur Phencyclidine (PCP) U Amphetamin/Meth Scrn MDMA (Ecstasy) Screen U Benzodiazepines Scrn Ur Cocaine Metabolite U Marijuana (THC) Screen Ethyl Alcohol mg/dL SARS-CoV-2, RNA, NAAT Hospital Course (1) Schizophrenia: (2) Suicidal ideation: (3) Paranoia: (4) Delusions: Plan 07/12/2024: Discontinue B12 supplement 07/11/2024: Continue current medications and tx plan. 07/10/2024: The patient was admitted to the [facility] ([facility] inpatient mental health unit) on q15 min checks (behavioral with suicide precautions) for safety. The patient will participate in group, recreational, and milieu therapies and will be offered additional individual and family sessions as clinically appropriate. -Continue prior to admission medications including * olanzapine 30mg HS -Check EKG to ensure stable QTc given olanzapine is above FDA recommended max dose. -Fasting lipid panel, HbA1c, vit D, vit B12 in the morning Mental Health & Subst Abuse Tx Psychiatrist Name of Psychiatrist: Lulu Rags[facility] Psychiatrist's Date Of Appointment With Psychiatric Provider: 07/23/2024 Time of Appointment with Psychiatrist: 9:40AM Therapist Name of Therapist: Elkin [place] Therapist's Date of Therapist Appointment: 07/22/24 Time of Therapist Appointment: 2PM Healthcare Advisory Services Manager Name of Healthcare Advisory Services Manager: Adalberto Matos Phone Number for Healthcare Advisory Services Manager: [phone] Case Management Appointment Comment: Called and left voicemail. Unable to reach Mitesh Post Discharge Appointments Primary Care Physician Name Of Family Doctor/PCP: Dr. Sauer Contact Information Discharge Discharge Address: [facility] Discharge Plan Discharge Items Patient Disposition: Personal Jail Reason For Visit: SCHIZOPHRENIA Discharge Diagnosis: Schizophrenia Condition on Discharge: Fair Activity: Resume your previous activity Non-emergency contact: Primary Care Provider and Psychiatrist Call non-emergency contact if: you have any medication questions and your symptoms worsen Follow-up/Referrals: Dillon Rogers MD [Primary Care Provider] - Diet: Regular Addtl Attending Provider Instructions: -Continue Olanzapine 10mg daily, and 20mg at night Pending Studies at Discharge: No Stand-Alone Forms: [employer], Smoking Cessation Skilled Items Patient informed of condition?: Yes DNR: No Discharge Level of Care: Other Communicable Disease: No Discharge Prognosis: Stable Lines: None Urinary Catheter: No Medications and DC Order Prescriptions: Continued cyanocobalamin (vitamin B-12) [Vitamin B-12] 1,000 mcg tablet 1,000 mcg PO QAM Qty: 90 3RF cholecalciferol (vitamin D3) 50 mcg (2,000 unit) capsule 50 mcg PO DAILY Qty: 90 3RF Rx Instructions: with heaviest meal of the day ferrous sulfate 325 mg (65 mg iron) tablet 325 mg PO Q OTHER DAY Qty: 45 3RF acetaminophen [Tylenol] 325 mg tablet 325 mg PO QID PRN (Reason: pain) Qty: 360 5RF Jardiance 25 mg tablet 25 mg PO DAILY Qty: 90 3RF lisinopril 40 mg tablet 40 mg PO BID Qty: 180 3RF (DME) lancets 30 gauge misc See Rx Instructions .Route Qty: 200 3RF Rx Instructions: use twice daily rosuvastatin 40 mg tablet 40 mg PO DAILY Qty: 30 5RF (DME) pen needle, diabetic [BD Ultra-Fine Bhavya Pen Needle] 32 gauge x 5/32" needle See Rx Instructions .Route Qty: 300 1RF Rx Instructions: use with insulin injections TID Victoza 3-Antione 0.6 mg/0.1 mL (18 mg/3 mL) pen injector 1.8 mg subcut DAILY 30 Days Qty: 9 2RF fenofibrate nanocrystallized 145 mg tablet 145 mg PO QAM Qty: 90 3RF methimazole 10 mg tablet 10 mg PO QAM 30 Days Qty: 30 2RF (DME) OneTouch Ultra Test Strip See Rx Instructions .Route Qty: 200 3RF Rx Instructions: test blood sugar twice daily metformin 500 mg tablet extended release 24 hr 500 mg PO BIDM Qty: 60 3RF Rx Instructions: pt takes at 8am and 5pm hydroxyzine HCl 25 mg tablet 25 mg PO BID PRN (Reason: Anxiety) amlodipine 10 mg tablet 10 mg PO DAILY Qty: 30 5RF metoprolol succinate 25 mg tablet extended release 24 hr 25 mg PO DAILY Qty: 30 5RF olanzapine 10 mg Tablet 10 mg PO HS 30 Days Qty: 30 0RF olanzapine 20 mg Tablet 20 mg PO HS 30 Days Qty: 30 0RF insulin detemir U-100 100 unit/mL (3 mL) Insulin Pen 100 unit SUBCUT HS Rx Instructions: Levemir 100 units HS per [facility] staff insulin detemir U-100 100 unit/mL (3 mL) Insulin Pen 140 unit SUBCUT QAM Rx Instructions: Levemir 140 units q AM per [facility] staff Discontinued olanzapine 5 mg tablet See Rx Instructions .ROUTE .COMPLEX Rx Instructions: 5 mg orally ;Daily at 1500 benztropine 1 mg tablet 1 mg PO HS 30 Days Qty: 30 0RF Discharge Orders: Discharge Order (Routine); Ordered 07/13/24 Ordered By: Adriel Deng/Other Patient Handouts: Managing Type 2 Diabetes Admission Data Admit Date/Time: 07/09/24 13:08 Attending Provider: Adriel Prieto Admit Provider: Marden,Marleni K. Primary Care Provider: Dillon Rogers V. Other Interventions: Discharge Summary Assessment (RN) Last Done: 07/13/24 10:38 PSY Interdisciplinary Discharge Planning Last Done: 07/13/24 10:38 [place] [address] D/C day mgmt > 30 min Patient Type Established History Expanded Problem Focused Exam Expanded Problem Focused Medical Decision Making Moderate Complexity Diagnoses Paranoid schizophrenia F20.0 Schizophrenia type: paranoid schizophrenia Suicidal ideation R45.851 Paranoia F22 Delusions F22
[2024-07-13 10:42] VITALS: PULSE 72
== END 2024-07-13 11:11 | disposition home or self-care (01) | DRG 885 ==
LOC: ED 10:01 → 3S 13:08 → SUATTDRO 13:08 → 3S 13:28